=== PATIENT | female | born 1965 | race Hispanic/Latino ===

== ENCOUNTER 2016-06-19 09:40 | Inpatient (IN) | payer MEDICAID ==
[2016-06-19 09:42] VITALS: BMI 27.4
--- NOTE | 2016-06-19 09:54 | ED PDOC ---
Arrival/HPI - General Time Seen by Provider: 06/19/16 09:44 Historian: Patient - History of Present Illness Narrative History of Present Illness (Text): 06/19/16 09:51 51 year old female with recent admission for CHF presents to the emergency department with complaints of shortness of breath. Patient states that she was recently admitted for "breathing problems" and reports persistent shortness of breath. Denies headache or fevers. Denies chest pain. Denies hemoptysis. PMD: Dr. Roman Time/Duration: 24 hours Symptom Onset: Sudden Symptom Course: Unchanged Modifying Factors (Text): None Associated Symptoms (Text): None Past Medical History - Provider Review Nursing Documentation Reviewed: Yes - Past History Past History: No Previous - Infectious Disease Hx of Infectious Diseases: None - Tetanus Immunization Tetanus Immunization: Unknown - Cardiac Hx Cardiac Disorders: Yes Hx Congestive Heart Failure: Yes Hx Hypertension: Yes - Pulmonary Hx Respiratory Disorders: Yes Hx Chronic Obstructive Pulmonary Disease (COPD): Yes - Neurological Hx Neurological Disorder: No - HEENT Hx HEENT Disorder: No Hx Blind: No Hx Cataracts: No Hx Deafness: No Hx Difficulty Chewing: No Hx Epistaxis: No Hx Glaucoma: No Hx Macular Degeneration: No - Renal Hx Renal Disorder: No - Endocrine/Metabolic Hx Endocrine Disorders: Yes Hx Diabetes Mellitus Type 2: Yes Hx Hypothyroidism: Yes - Hematological/Oncological Hx Blood Disorders: No - Integumentary Hx Dermatological Disorder: No Hx Basal Cell Carcinoma: No Hx Eczema: No Hx Melanoma: No Hx Psoriasis: No Hx Squamous Cell Carcinoma: No - Musculoskeletal/Rheumatological Hx Musculoskeletal Disorders: No - Gastrointestinal Hx Gastrointestinal Disorders: No - Genitourinary/Gynecological Hx Genitourinary Disorders: No - Psychiatric Hx Psychophysiologic Disorder: No Hx Substance Use: No (H/O OF COCAINE MARIJUANA USE) - Past Surgical History Past Surgical History: No Previous - Surgical History Hx Appendectomy: No Hx Cholecystectomy: No Hx Coronary Stent: No Other/Comment: port-a-cath placement - Anesthesia Hx Anesthesia Reactions: No Hx Malignant Hyperthermia: No - Suicidal Assessment Feels Threatened In Home Enviroment: No Family/Social History Family/Social History: Unknown Family HX Smoking Status: Former Smoker Hx Alcohol Use: No (H/O) Hx Substance Use: No (H/O OF COCAINE MARIJUANA USE) Substance used: cocaine Hx Substance Use Treatment: Yes (NARCOTICS ANONYMOUS) Allergies/Home Meds Allergies/Adverse Reactions: Allergies No Known Allergies Allergy (Verified 06/19/16 09:49) Home Medications: Home Meds Medication Instructions Recorded Confirmed Furosemide [Lasix] 40 mg PO DAILY 05/28/16 06/19/16 metFORMIN [glucOPHAGE] 1,000 mg PO BID 05/28/16 06/19/16 Potassium Chloride [K-Dur 20 mEq 20 meq PO DAILY 06/19/16 06/19/16 ER Tab] Review of Systems - Review of Systems Constitutional: Fatigue. absent: Fevers ENT: absent: Hearing Changes, Sore Throat, Rhinorrhea, Epistaxis Respiratory: SOB. absent: Cough, Wheezing Cardiovascular: BECK. absent: Chest Pain, Edema Gastrointestinal: absent: Stool Changes, Nausea, Vomiting Genitourinary Female: absent: Dysuria Musculoskeletal: absent: Back Pain, Neck Pain Neurological: absent: Dizziness Hemo/Lymphatic: absent: Easy Bleeding Psychiatric: absent: Depression Physical Exam - Physical Exam Narrative Physical Exam (Text): Head: Atraumatic. Normocephalic. Eyes: PERRL. EOMI. Conjunctivae are not pale. ENT: Mucous membranes are moist and intact. Oropharynx is clear and symmetric. Neck: Supple. Full ROM. Positive JVD. No meningeal signs. Cardiovascular: Tachycardic. Regular rhythm. Systolic murmur. No rubs, or gallops. Distal pulses are 2+ and symmetric. Pulmonary/Chest: No evidence of respiratory distress. Rales L>R. Diminished breath sounds at right base. Abdominal: Soft and non-distended. There is no tenderness. No rebound, guarding, or rigidity. No organomegaly. Good bowel sounds. Back: No CVA tenderness. Extremities: Bilateral pitting edema. No cyanosis. No clubbing. Full range of motion in all extremities. No calf tenderness. Skin: Skin is warm and dry. No petechiae. No purpura. Neurological: Alert, awake, and oriented. Normal speech. Motor and sensory exam intact. Psychiatric: Good eye contact. At times pressure speech. Denies suicidal or homicidal ideation.. Vital Signs Reviewed: Yes Vital Signs Temp Pulse Resp BP Pulse Ox 06/19/16 15:00 114 H 18 114/74 98 06/19/16 13:00 116 H 18 112/77 100 06/19/16 12:32 126/76 06/19/16 11:41 99 H 18 126/88 98 06/19/16 11:00 20 98 06/19/16 09:41 98.6 F 120 H 18 125/79 94 L Temperature: Afebrile Pulse: Tachycardic Respiratory Rate: Tachypneic Appearance: Positive for: Uncomfortable Pain Distress: Mild Medical Decision Making ED Course and Treatment: Differential Diagnosis include but are not limited to: chf, cad, acs, arrhythmia Plan: Will obtain chest x-ray and check labs. Prior Visits: Notes and results from previous visits were reviewed. Patient last seen in ED on Progress Notes: Patient noted to have left bundle branch block, which was present on a prior ekg. Patient denies chest pain. Chest x-ray shows large right pleural effusion and worsening edema compared to prior. On 2L of nasal cannula, oxygen saturation is 96%. Patient remains tachycardic and tachypnic. CT Angiogram ordered due to tachycardia and history of DVT. CTA negative for PE. CT Chest IMPRESSION read by Dr. Angeles: 1. No evidence of pulmonary embolism. 2. Large bilateral pleural effusions and compressive atelectasis primarily affecting both lower lobes and to a lesser extent right middle lobe and lingula. These have increased compared to the prior CT which included the lower thorax 05/31/2016 Patient states she has been compliant with Eliquis. Consulted script writer Dr. Liu who has assessed patient and currently patient is cleared for telemetry bed admission. Patient will be admitted under Dr. Roman. Case d/w Dr. Roman and care transferred to Dr. Roman. Patient refuses ABG. Risks and indications were discussed with her. She refuses rectal temperature. Afebrile in ED. Current exam not consistent with DKA. Blood sugar improved after insulin. Will avoid excessive hydration given history of CHF and low EF. Patient admitted for pleural effusion, chf, tachycardia. 06/19/16 19:34 - Lab Interpretations Lab Results: 06/19/16 10:19 06/19/16 10:19 Lab Results 06/19/16 13:08: Digoxin < 0.4 L 06/19/16 10:21: Influenza Typ A,B (EIA) Negative for flu a/b 06/19/16 10:19: WBC 11.5 H, RBC 4.95, Hgb 13.1, Hct 39.6, MCV 80.0, MCH 26.5, MCHC 33.1, RDW 15.7 H, Plt Count 372, MPV 11.6 H, Gran % 69.3 H, Lymph % (Auto) 21.4 L, [place] % (Auto) 7.5 H, Eos % (Auto) 1.3 L, Baso % (Auto) 0.5, Gran # 7.99 H, Lymph # 2.5, [place] # 0.9 H, Eos # 0.2, Baso # 0.06, PT 13.4 H, INR 1.24 H, APTT 27.1, Sodium 132, Potassium 4.0, Chloride 88 L, Carbon Dioxide 33, Anion Gap 15, BUN 18, Creatinine 0.7, Est GFR ( Amer) > 60, Est GFR (Non-Af Amer) > 60, Random Glucose 609 H* D, Calcium 9.7, Total Bilirubin 1.4 H, AST 40 H, ALT 51, Alkaline Phosphatase 173 H, Lactate Dehydrogenase 451, Total Creatine Kinase < 20 L, Troponin I < 0.01, NT-Pro-B Natriuret Pep 4530 H, Total Protein 7.7, Albumin 4.1, Globulin 3.6, Albumin/Globulin Ratio 1.1, Urine Color Yellow, Urine Appearance Clear, Urine pH 6.0, Ur Specific [place] 1.010, Urine Protein Negative, Urine Glucose (UA) >=1000, Urine Ketones Negative, Urine Blood Trace-lysed H, Urine Nitrate Negative, Urine Bilirubin Negative, Urine Urobilinogen 0.2, Ur Leukocyte Esterase Negative, Urine RBC 0 - 2, Urine WBC 0 - 2, Ur Epithelial Cells 0 - 2, Urine Bacteria Few, Urine Other Uyeast - RAD Interpretation Narrative RAD Interpretations (Text): worsening bilateral effusions Radiology Orders: 06/19/16 10:00 CHEST PORTABLE [RAD] Stat 06/19/16 13:07 ANGIO CHEST PE PROTOCOL [CT] Stat Marketing Performance Analyst: Radiologist - EKG Interpretation EKG Interpretation (Text): 06/19/16 19:33 sinus tachycardia rate of 127 with left bundle branch block Interpreted by ED Physician: Yes Type: 12 lead EKG - Medication Orders Current Medication Orders: Apixaban (Eliquis) 5 mg PO Q12 [facility] PRN Reason: Protocol Digoxin (Lanoxin) 0.125 mg PO 1400 [facility] Furosemide (Lasix) 40 mg IV DAILY [facility] Insulin Detemir (Levemir) 15 unit SC Q12 [facility] Insulin Human Regular (Humulin R Med) 0 units SC ACHS [facility] PRN Reason: Protocol Levothyroxine Sodium (Synthroid) 125 mcg PO ACB [facility] Last Admin: 06/19/16 17:30 Dose: Not Given Non-Admin Reason: Patient Refused Losartan Potassium (Cozaar) 12.5 mg PO DAILY [facility] Metformin HCl (Glucophage) 1,000 mg PO BRKDIN [facility] Last Admin: 06/19/16 19:02 Dose: 1,000 MG Potassium Chloride (K-Dur 20 Meq Er Tab) 20 meq PO DAILY [facility] Discontinued Medications Furosemide (Lasix) 40 mg IVP ONCE ONE Stop: 06/19/16 12:05 Last Admin: 06/19/16 12:32 Dose: 40 MG MAR Blood Pressure Document 06/19/16 12:32 EW (Rec: 06/19/16 12:32 [facility] [id number]) Blood Pressure Blood Pressure (100/60-150/90 mm Hg) 126/76 IVP Administration Document 06/19/16 12:32 EW (Rec: 06/19/16 12:32 [facility] [id number]) Charges for Administration # of IVP Administrations 1 Insulin Human Regular (Humulin R) 10 units SC STAT STA Stop: 06/19/16 10:51 Last Admin: 06/19/16 11:13 Dose: 10 UNITS Subcutaneous Admin in ER Document 06/19/16 11:13 EW (Rec: 06/19/16 11:13 [facility] [id number]) Injection Site MAR Injection Site Left Deltoid Subcutaneous Administrations Document 06/19/16 11:13 EWO (Rec: 06/19/16 11:13 [facility] [id number]) Charges for Administration # of Subcutaneous Administrations 1 Iohexol (Omnipaque 350 100 Ml) Confirm Administered Dose 350 mg .ROUTE .STK-MED ONE Stop: 06/19/16 13:28 Metformin HCl (Glucophage) 1,000 mg PO BRKDIN [facility] Disposition/Present on Arrival - Present on Arrival Any Indicators Present on Arrival: Yes History of DVT/PE: Yes History of Uncontrolled Diabetes: Yes Urinary Catheter: No History of Decub. Ulcer: No History Surgical Site Infection Following: None - Disposition Have Diagnosis and Disposition been Completed?: Yes Diagnosis: CHF (congestive heart failure), Tachycardia, Pleural effusion, Hyperglycemia Disposition: HOSPITALIZED Disposition Time: 12:30 Patient Plan: Admission Patient Problems: Current Active Problems Problem Status Diagnosed Abdominal pain Acute Biliary colic Acute CHF (congestive heart failure) Acute Pleural effusion Acute Tachycardia Acute Thrombosis Acute Condition: FAIR
[2016-06-19 10:20] LABS: ADD MANUAL DIFF? NO
[2016-06-19 10:25] LABS: BASO # 0.06 K/mm3 (0.0-2.0); BASO % 0.5 % (0.0-3.0); EOS # 0.2 (0.0-0.7); EOS % 1.3 % (1.5-5.0); GRAN # 7.99 (1.4-6.5); GRAN % 69.3 % (50.0-68.0); HEMATOCRIT 39.6 % (36.0-48.0); LYMPH # 2.5 (1.2-3.4); LYMPH % 21.4 % (22.0-35.0); MEAN CORPUSCULAR HEMOGLOBIN 26.5 pg (25.0-35.0); MEAN CORPUSCULAR HGB CONC 33.1 g/dl (31.0-37.0); MEAN PLATELET VOLUME 11.6 fl (7.0-11.0); MONO # 0.9 (0.1-0.6); MONO % 7.5 % (1.0-6.0); PLATELET COUNT 372 10^3/uL (120.0-450.0); RED CELL DISTRIBUTION WIDTH 15.7 % (11.5-14.5); URINE APPEARANCE CLEAR (CLEAR); URINE BILIRUBIN NEGATIVE (NEGATIVE); URINE BLOOD TRACE-LYSED (NEGATIVE); URINE COLOR YELLOW (YELLOW); URINE GLUCOSE (UA) >=1000 mg/dL (NEGATIVE); URINE KETONE NEGATIVE (NEGATIVE); URINE LEUKOCYTE ESTERASE NEGATIVE Leu/uL (NEGATIVE); URINE PROTEIN NEGATIVE mg/dL (<30 mg/dL); URINE UROBILINOGEN 0.2 E.U./dL (<1 E.U./dL); WHITE BLOOD COUNT 11.5 10^3/ul (4.5-11.0)
[2016-06-19 10:34] LABS: URINE BACTERIA FEW (NEG); URINE EPITHELIAL CELLS 0 - 2 /hpf (0-5); URINE RBC 0 - 2 /hpf (0-2); URINE WBC 0 - 2 /hpf (0-6)
[2016-06-19 10:36] LABS: ALB/GLOB RATIO 1.1 (1.1-1.8); ALKALINE PHOSPHATASE 173 U/L (38-133); ALT/SGPT 51 U/L (7-56); AST/SGOT 40 U/L (15-39); BILIRUBIN,TOTAL 1.4 mg/dL (0.2-1.3); BLOOD UREA NITROGEN 18 mg/dL (7-21); CALCIUM 9.7 mg/dL (8.4-10.5); CARBON DIOXIDE 33 mmol/L (21-33); CHLORIDE 88 mmol/L (98-107); GFR AFRICAN-AMERICAN > 60; INR 1.24 (0.93-1.08); PARTIAL THROMBOPLASTIN TIME 27.1 Seconds (23.7-30.8); SODIUM 132 mmol/L (132-148); TOTAL PROTEIN 7.7 g/dL (5.8-8.3)
[2016-06-19 10:49] LABS: GLUCOSE,RANDOM 609 mg/dL (70-110)
[2016-06-19 10:50] LABS: TROPONIN I < 0.01 ng/mL
[2016-06-19] MEDS ORDERED: Insulin Regular 1 UNITS/0.01 ML ML SC STA (10:50)
--- NOTE | 2016-06-19 12:57 | RAD ---
PROCEDURE: Portable chest single view HISTORY: Shortness of breath. COMPARISON: 05/28/2016. TECHNIQUE: Technique: Single view portable semi erect @ 11:32. FINDINGS: Bilateral pleural effusions, of lower lobe compressive atelectasis. Findings are progressive [place] of increased compared to May 28, 2016. IMPRESSION: Worsening bilateral infiltrates and effusions.
[2016-06-19] MEDS ORDERED: Iohexol 350 MG/100 ML VIAL ONE (13:27)
--- NOTE | 2016-06-19 14:16 | CT ---
PROCEDURE: CT Chest with contrast (Pulmonary Angiogram) HISTORY: Shortness of breath. COMPARISON: June 19, 2016. Single-view chest. 05/31/2016 CT abdomen and pelvis. TECHNIQUE: Axial computed tomography images were obtained of the chest in the pulmonary arterial phase of enhancement. Coronal and sagittal reformatted images were created and reviewed. Maximum intensity projection (MIP) reconstructed images in the following planes: Coronal projection only Intravenous contrast dose: 100 cc Omnipaque 350. Mean Hounsfield unit values in the main pulmonary artery: 605.12 Radiation dose: Total exam DLP = 443.06 mGy-cm. FINDINGS: PULMONARY ARTERIES: Unremarkable. No pulmonary embolism. AORTA: No acute findings. No thoracic aortic aneurysm. LUNGS: Progressive consolidative changes compared to prior CT scan of abdomen and pelvis likely compressive atelectasis related to increasing bilateral pleural effusions. PLEURAL SPACES: Large bilateral pleural effusions, increased in size compared the prior CT scan 05/31/2016. HEART: Unremarkable. No cardiomegaly. No significant pericardial effusion. LYMPH NODES: No lymphadenopathy. BONES, CHEST WALL: Unremarkable. No fracture or destructive lesion OTHER FINDINGS: Admixture of contrast in the IVC noted. No IVC thrombus is identified. IMPRESSION: 1. No evidence of pulmonary embolism. 2. Large bilateral pleural effusions and compressive atelectasis primarily affecting both lower lobes and to a lesser extent right middle lobe and lingula. These have increased compared to the prior CT which included the lower thorax 05/31/2016
--- NOTE | 2016-06-19 15:55 | CARD ---
APPROVED REPORT EKG Measurement Heart [id number] MA [id number] <Conclusion> Sinus tachycardia Left bundle branch block Abnormal ECG
[2016-06-19] MEDS: Levothyroxine 125 MCG TAB PO SCH ×2 (17:25→17:30)
--- NOTE | 2016-06-19 21:24 | CON ---
DATE: 06/19/2016 This is a 51-year-old lady with history of diabetes, CHF (left ventricular systolic function, ejection fraction is about 30, the patient had a coronary angiography about 2 years ago which showed nonocclusive coronary artery disease ) who presented this time with some shortness of breath for several days, which was getting somewhat worse. No chest pain, no nausea, no vomiting, no diarrhea , no constipation. Shortness of breath was exacerbated by exertion and somewhat relieved during the rest. PAST MEDICAL HISTORY: CHF, left ventricular systolic dysfunction with ejection fraction of 30%, occlusion of coronary artery disease, diabetes. SOCIAL HISTORY: The patient is an ex-smoker, but did smoke for many years. No alcohol or illicit drug abuse. MEDICATIONS AT HOME: Synthroid, Eliquis (patient had a history of upper extremity deep venous thrombosis), digoxin, metformin, Cozaar, Lasix. FAMILY HISTORY: Noncontributory. ALLERGIES: NKDA. REVIEW OF SYSTEMS: Revealed 12-organ system other than mentioned in history of present illness is negative. PHYSICAL EXAMINATION: VITAL SIGNS: The patient is on 2 liters nasal cannula and her oxygen saturation is 95-97%. Her heart rate is 114 and her blood pressure is 126/70. GENERAL: The patient is in no acute distress. She is alert and oriented x 3. HEAD AND NECK: Atraumatic. LUNGS: Decreased breath sounds bibasilar. HEART: Regular rate and rhythm. S1, S2 normal. ABDOMEN: Soft, nontender, nondistended. MUSCULOSKELETAL: 2+ bilateral pedal and ankle edema. NEUROLOGIC: The patient moves all extremities spontaneously. SKIN: Moist. PSYCHIATRIC: The patient is alert and oriented x 3. LABORATORY DATA: Sodium 132, potassium 4, chloride 88, carbon dioxide 33, BUN 18, creatinine 0.7 , glucose 609. AST 40, ALT 51. Troponin is less than 0.01. ProBNP 4530. WBC 11.5, hemoglobin 13.1, platelet count 372. INR 1.24. CAT scan of the chest revealed no pulmonary embolus, however, large bilateral pleural effusion with some compressive atelectasis. EKG showed old left bundle branch block. ASSESSMENT AND PLAN: This is a 51-year-old lady who presented with what appears to be congestive heart failure exacerbation. She is hemodynamically relatively stable except for mild tachycardia. She requires only 2 liters per minute of FIO2 supplementation via nasal cannula to maintain her gas exchange and oxygen saturation between 94 and 97. She is alert and oriented x3. She is able to protect her airways. At present time, admission to telemetry for monitoring appears to be appropriate. If clinical situation change or patient deteriorates including, but not limited to hypoxemia, hypotension, or any other questions arise, please reconsult ICU and give us a call. It appears that diuresis, ARETHA inhibitors for afterload reduction appears to be reasonable. Cardiology consult appears to be reasonable as well. When patient achieves euvolemic status, beta blockers can be restarted. I will trend troponins x 3 to ascertain absence of acute coronary ischemia. We will check procalcitonin to rule out septic component in patient's pulmonary complaints. We will continue with Eliquis and gastrointestinal prophylaxis. Rancho Liu MD cc: [id number] TT: 06/19/2016 21:24:15 Confirmation # [id number] Dictation # [id number] MTDD
[2016-06-19] MEDS: Insulin Detemir 100 units/ml Vial (Levemir) SC SCH (22:14)
[2016-06-19] MEDS: Insulin Reg-MEDIUM-Coverage SC SCH (22:16)
[2016-06-19] MEDS ORDERED: cefTRIAXone 1 gm 100 ML IVPB STA (22:49)
--- NOTE | 2016-06-20 00:02 | CON ---
DATE: 06/19/2016 The patient in room 265, bed 2. REASON FOR CONSULTATION: Congestive heart failure. HISTORY OF PRESENT ILLNESS: The patient is a 51-year-old female who is known to have congestive hear t failure, bipolar disorder, history of lymphoma in the past, admitted with shortness of breath of fe w days' duration, which continued to get worse. The patient denies any chest pain or palpitations. PAST MEDICAL HISTORY: Positive for lymphoma, history of DVT of right brachial vein in 04/2016. She had a cholecystectomy recently. CARDIAC WORKUP: As follows: Echo in March revealed ejection fraction 30%, then patient had a MUG A scan that showed ejection fraction 55%. The patient had coronary angiogram 03/2015 that revealed n onobstructive coronary artery disease. The patient's MUGA scan on 04/13/2016 showed ejection fractio n 55%. 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 The patient had cardiac catheterization ____, showed ejection fraction 40 % to 45% with nonobstructive coronary artery disease. EDP was in the range of 20-25. The patient's MUGA scan on 04/11/2015 showed ejection fraction 56%. Repeat MUGA scan on 04/13/2016 showed ejection fraction of 55%. PERSONAL HISTORY: No smoking, no drinking. ALLERGIES: No known allergies. REVIEW OF SYSTEMS: All the systems reviewed, positives mentioned in the history, others were negativ e. HOME MEDICATIONS: Included Synthroid, Eliquis, digoxin, metformin, potassium, losartan, furosemide. PHYSICAL EXAMINATION: VITAL SIGNS: Blood pressure 114/74, respirations 18, pulse 114, temperature 98. HEENT: Head is normocephalic. Eyes: Pupils normal. Conjunctivae normal. Nose and throat normal. NECK: JVP is low. Carotids equal. THORAX: AP diameter normal. LUNGS: Bilateral rales on the bases of the lungs along with some diminished breath sounds. CARDIOVASCULAR: S1, S2, pansystolic murmur grade III/, no rub. ABDOMEN: Soft, no tenderness, no organomegaly. EXTREMITIES: The patient has swelling on the right ____ legs, also has redness of the skin, more so on the right leg as compared to left leg. LABORATORY DATA: WBC 11.5, hemoglobin 13.1, hematocrit 39.6, platelet 372. Sodium 132, potassium 4. 0, BUN 18, creatinine 0.7, random glucose 609, total bilirubin 1.4, AST 40, ALT 51. NT-proB natriure tic pep 4530. Total protein and albumin normal. Repeat sugar 375. EKG shows sinus tachycardia, rat e around 127 per minute, left bundle branch block. Chest x-ray showed bilateral pleural effusion. I t has increased as compared to 05/28/2016. CAT scan of the chest showed large bilateral pleural effus ion with compressive atelectasis primarily affecting both lower lobes. DIAGNOSES: Congestive heart failure, bilateral pleural effusion, mitral regurgitation, cardiomyopath y, [id number] left ventricular systolic failure, cardiomyopathy, nonischemic type; status post chemotherapy, status post cardiac catheterization 03/11/2015, nonobstructive coronary artery disease. Recent MUGA scan showed left ventricular ejection fraction 55%. Previous MUGA on 04/11/2015 showed ejection fraction of 56%, bilateral edema of legs, redness on the leg, probably rule out cellulitis; history of lymphoma, history of chemotherapy, tricuspid regurgitation, mitral regurgitation, sinus ta chycardia. PLAN: Give Lasix 40 IV b.i.d. The patient on Eliquis 5 mg q.12 hours, losartan 12.5 mg p.o. daily. We will add Inderal 10 mg t.i.d. for sinus tachycardia. The patient on potassium 20 p.o. daily, dig oxin 0.125 daily, insulin Levemir already ordered, Synthroid 125 mcg p.o. daily, metformin 1000 mg p. o. b.i.d. We will monitor intake and output and we will also add Rocephin 1 gram IV daily to help wi th cellulitis of the legs. We will follow. Mau Rivera MD cc: [id number] TT: 06/20/2016 00:01:50 Confirmation # [id number] Dictation # [id number]
--- NOTE | 2016-06-20 01:09 | CP.PCM.PN ---
Subjective - Date & Time of Evaluation Date of Evaluation: 06/20/16 Time of Evaluation: 01:02 - Subjective Subjective: Patient is seen at bedside because she is restless, trying to get out of bed, states that she does not feel good , trying to spit up, complains of diffuse abdominal pain, at times crying. Medical record reviewed. Seen by in the past who had started her on risperidone. 51 year old woman is admitted with sob of 2 days duration. Has PMH of DM, lymphoma, bipolar disorder, right brachial DVT, CHF , 30 % EF, CMP-non ischemic, bilateral pleural effusion, cholecystectomy, Objective - Vital Signs/Intake and Output Vital Signs (last 24 hours): Temp Pulse Resp BP Pulse Ox 97.7 F 124 H 20 128/82 98 06/19/16 18:00 06/19/16 22:23 06/19/16 18:00 06/19/16 22:23 06/19/16 15:00 Intake and Output: 06/19/16 06/20/16 18:59 06:59 Intake Total 480 Balance 480 - Medications Medications: Current Medications Apixaban (Eliquis) 5 mg PO Q12 [facility] PRN Reason: Protocol Last Admin: 06/19/16 22:13 Dose: 5 mg Digoxin (Lanoxin) 0.125 mg PO 1400 [facility] Furosemide (Lasix) 40 mg IV BID [facility] Ceftriaxone Sodium (Rocephin 1 Gram Ivpb) 100 mls @ 100 mls/hr IVPB DAILY [facility] PRN Reason: Protocol Insulin Detemir (Levemir) 15 unit SC Q12 [facility] Last Admin: 06/19/16 22:14 Dose: 15 unit Insulin Human Regular (Humulin R Med) 0 units SC ACHS [facility] PRN Reason: Protocol Last Admin: 06/19/16 22:16 Dose: 3 units Levothyroxine Sodium (Synthroid) 125 mcg PO ACB [facility] Last Admin: 06/19/16 17:30 Dose: Not Given Losartan Potassium (Cozaar) 12.5 mg PO DAILY [facility] Metformin HCl (Glucophage) 1,000 mg PO BRKDIN [facility] Last Admin: 06/19/16 19:02 Dose: 1,000 mg Potassium Chloride (K-Dur 20 Meq Er Tab) 20 meq PO DAILY [facility] Propranolol HCl (Inderal) 10 mg PO TID [facility] Last Admin: 06/19/16 22:23 Dose: 10 mg - Labs Labs: PT 13.4 Seconds (9.9-11.8) H 06/19/16 10:19 INR 1.24 (0.93-1.08) H 06/19/16 10:19 APTT 27.1 Seconds (23.7-30.8) 06/19/16 10:19 - Constitutional Appears: Well, No Acute Distress - Head Exam Head Exam: ATRAUMATIC, NORMAL INSPECTION, NORMOCEPHALIC Additional comments: Ambulating . - Eye Exam Eye Exam: Normal appearance - ENT Exam ENT Exam: Normal External Ear Exam - Neck Exam Neck Exam: Normal Inspection - Respiratory Exam Respiratory Exam: NORMAL BREATHING PATTERN - Cardiovascular Exam Cardiovascular Exam: absent: JVD - Rectal Exam Rectal Exam: Deferred - Extremities Exam Extremities Exam: Normal Inspection - Neurological Exam Neurological Exam: Alert - Psychiatric Exam Psychiatric exam: Anxious - Skin Skin Exam: Normal Color Assessment and Plan - Assessment and Plan (Free Text) Assessment: A/P: Anxious. CHF. History bipolar disorder. CMP. Placed a call to . Will give rsperidone 0.5 mg po now. Suggest psychiatry consultation.
[2016-06-20] MEDS ORDERED: Alum-Mag Hydrox-Simethicone Susp (30 mL) PO STA (01:34)
[2016-06-20] MEDS: Insulin Reg-MEDIUM-Coverage SC SCH ×2 (08:09→12:32)
[2016-06-20] MEDS: Levothyroxine 125 MCG TAB PO SCH (08:10)
[2016-06-20 08:45] LABS: BLOOD UREA NITROGEN 19 mg/dL (7-21); CARBON DIOXIDE 30 mmol/L (21-33); CHLORIDE 93 mmol/L (98-107); GFR AFRICAN-AMERICAN > 60; GLUCOSE,RANDOM 247 mg/dL (70-110); POTASSIUM 3.8 mmol/L (3.6-5.0); SODIUM 134 mmol/L (132-148)
[2016-06-20 08:52] LABS: HEMATOCRIT 38.9 % (36.0-48.0); MEAN CELL VOLUME 78.3 fL (80.0-105.0); MEAN CORPUSCULAR HEMOGLOBIN 26.4 pg (25.0-35.0); MEAN CORPUSCULAR HGB CONC 33.7 g/dl (31.0-37.0); MEAN PLATELET VOLUME 11.9 fl (7.0-11.0); RED CELL DISTRIBUTION WIDTH 15.6 % (11.5-14.5)
[2016-06-20] MEDS: Potassium Chloride 20 mEq ER Tab PO SCH (09:21)
[2016-06-20] MEDS: Insulin Detemir 100 units/ml Vial (Levemir) SC SCH ×2 (09:23→22:09)
--- NOTE | 2016-06-20 10:21 | PN ---
DATE: 06/20/2016 REASON FOR CONSULTATION AND FOLLOWUP: Congestive heart failure. BRIEF CLINICAL HISTORY: This is a 51-year-old female with past medical history of psychiatric disord er, bipolar, history of congestive heart failure, nonischemic cardiomyopathy secondary to chemo for l ymphoma, history of recently DVT of right brachial vein, history of recently cholecystectomy. Admitt ed with shortness of breath, decompensated congestive heart failure. PHYSICAL EXAMINATION: VITAL SIGNS: Temperature afebrile, heart rate 109, blood pressure 123/83. HEENT: PERRLA. Extraocular muscles intact. NECK: Supple. No carotid bruits. No thyromegaly. CHEST: Clear to auscultation. HEART: S1, S2 regular. ABDOMEN: Soft. EXTREMITIES: Clubbing, cyanosis negative. BLOOD WORKUP: WBC 15, hemoglobin 13. , hematocrit 38.9, platelet count 376. Chemistry shows sod ium 134, potassium 3. , chloride 93, carbon dioxide 30, anion gap of 15, BUN 19, creatinine 0.6, random sugar 246. BNP 5600. IMPRESSION Decompensated congestive heart failure, acute on chronic, secondary to systolic dysfuncti on, history of lymphoma, status post chemotherapy, nonischemic cardiomyopathy, status post cardiac ca theterization 03/2015 that revealed nonobstructive coronary artery disease, end diastolic pressure wa s in the range of 20-25, ejection fraction 40%-45%. Echo in March revealed ejection fraction 30%. The patient had a MUGA scan done on , ejection fraction 55%. Prior to that, MUGA scan on 04/11/2014 also 55%. History of recently deep venous thrombosis of right brachial vein, status post cholecystectomy, status post removal of Port-A-Cath, history of cellulitis lower extremity, history o f lymphoma, status post chemo, tricuspid regurgitation, mitral regurgitation. RECOMMENDATION: Continue IV Lasix, continue Eliquis, continue losartan. t.i.d. added for tach ycardia. Continue digoxin. Continue Synthroid. We will increase digoxin to 0.2 because patient has normal creatinine clearance, more than 60% ejection fraction and age is 51, to control the tachycard ia. The patient is also on propranolol 10 mg to control the tachycardia. We will follow with you. Continue gentle diuretics. We will give 1 or 2 doses of Zaroxolyn to get the extra fluid out as the patient has 1-2+ pedal edema. The patient is already on antibiotics for cellulitis. We will follow with you. Thank you, Dr. Roman, for providing us the opportunity in taking care of the patient. We will follo w with you. Repeat the lab in the morning. Mau Orozco MD cc: [id number] TT: 06/20/2016 10:21:04 Confirmation # [id number] Dictation # [id number]
[2016-06-20] MEDS: cefTRIAXone 1 gm 100 ML IVPB SCH (12:45)
[2016-06-20] MEDS: metOLazone 5 MG TAB PO SCH (12:50)
--- NOTE | 2016-06-20 13:46 | CP.PCM.PN ---
Subjective - Date & Time of Evaluation Date of Evaluation: 06/20/16 Time of Evaluation: 13:30 - Subjective Subjective: pt needs angiocath insertion. Objective - Vital Signs/Intake and Output Vital Signs (last 24 hours): Temp Pulse Resp BP Pulse Ox 98 F 113 H 20 119/87 91 L 06/20/16 06:00 06/20/16 12:33 06/20/16 06:00 06/20/16 12:33 06/20/16 06:00 Intake and Output: 06/20/16 06/20/16 06:59 18:59 Intake Total 480 Output Total 1 Balance 479 - Medications Medications: Current Medications Apixaban (Eliquis) 5 mg PO Q12 [facility] PRN Reason: Protocol Last Admin: 06/20/16 09:22 Dose: 5 mg Carvedilol (Coreg) 3.125 mg PO BID [facility] Last Admin: 06/20/16 12:33 Dose: 3.125 mg Digoxin (Lanoxin) 0.25 mg PO 1400 [facility] Furosemide (Lasix) 40 mg IV BID [facility] Last Admin: 06/20/16 12:51 Dose: Not Given Ceftriaxone Sodium (Rocephin 1 Gram Ivpb) 100 mls @ 100 mls/hr IVPB DAILY [facility] PRN Reason: Protocol Last Admin: 06/20/16 12:45 Dose: Not Given Insulin Detemir (Levemir) 15 unit SC Q12 [facility] Last Admin: 06/20/16 09:23 Dose: 15 unit Insulin Human Regular (Humulin R Med) 0 units SC ACHS [facility] PRN Reason: Protocol Last Admin: 06/20/16 12:32 Dose: 7 units Levothyroxine Sodium (Synthroid) 125 mcg PO ACB [facility] Last Admin: 06/20/16 08:10 Dose: 125 mcg Losartan Potassium (Cozaar) 12.5 mg PO DAILY [facility] Last Admin: 06/20/16 09:22 Dose: 12.5 mg Metformin HCl (Glucophage) 1,000 mg PO BRKDIN [facility] Last Admin: 06/20/16 08:38 Dose: Not Given Metolazone (Zaroxolyn) 5 mg PO DAILY [facility] Stop: 06/21/16 23:59 Last Admin: 06/20/16 12:50 Dose: 5 mg Potassium Chloride (K-Dur 20 Meq Er Tab) 20 meq PO DAILY [facility] Last Admin: 06/20/16 09:21 Dose: 20 meq Propranolol HCl (Inderal) 10 mg PO TID [facility] Last Admin: 06/20/16 09:21 Dose: 10 mg - Labs Labs: 06/20/16 08:30 06/20/16 08:30 PT 13.4 Seconds (9.9-11.8) H 06/19/16 10:19 INR 1.24 (0.93-1.08) H 06/19/16 10:19 APTT 27.1 Seconds (23.7-30.8) 06/19/16 10:19 Assessment and Plan - Assessment and Plan (Free Text) Assessment: 24 guage angiocath inserted in rt hand.
[2016-06-20] MEDS ORDERED: Digoxin 125 mcg (0.125 mg) Tab PO SCH (14:00)
[2016-06-20] MEDS: Digoxin 250 mcg (0.25 mg) Tab PO SCH (14:23)
--- NOTE | 2016-06-20 15:35 | CP.PCM.PN ---
Subjective - Date & Time of Evaluation Date of Evaluation: 06/20/16 Time of Evaluation: 15:28 - Subjective Subjective: called by nurse pt is c/o abdominal pain ,epigastric region.pt states she had diarrhea x1 this morning and she is receiving antibiotics which gives her problem with abdominal pain but after the BM she feels better now . pt has chf and pleural effusion.also has hx of schizoaffective disorder. Objective - Vital Signs/Intake and Output Vital Signs (last 24 hours): Temp Pulse Resp BP Pulse Ox 98 F 110 H 20 115/71 91 L 06/20/16 06:00 06/20/16 14:23 06/20/16 06:00 06/20/16 14:23 06/20/16 06:00 Intake and Output: 06/20/16 06/20/16 06:59 18:59 Intake Total 480 Output Total 1 Balance 479 - Medications Medications: Current Medications Apixaban (Eliquis) 5 mg PO Q12 [facility] PRN Reason: Protocol Last Admin: 06/20/16 09:22 Dose: 5 mg Carvedilol (Coreg) 3.125 mg PO BID [facility] Last Admin: 06/20/16 12:33 Dose: 3.125 mg Digoxin (Lanoxin) 0.25 mg PO 1400 [facility] Last Admin: 06/20/16 14:23 Dose: 0.25 mg Furosemide (Lasix) 40 mg IV BID [facility] Last Admin: 06/20/16 12:51 Dose: Not Given Ceftriaxone Sodium (Rocephin 1 Gram Ivpb) 100 mls @ 100 mls/hr IVPB DAILY [facility] PRN Reason: Protocol Last Admin: 06/20/16 12:45 Dose: Not Given Insulin Detemir (Levemir) 15 unit SC Q12 [facility] Last Admin: 06/20/16 09:23 Dose: 15 unit Insulin Human Regular (Humulin R High) 0 units SC ACHS [facility] PRN Reason: Protocol Levothyroxine Sodium (Synthroid) 125 mcg PO ACB [facility] Last Admin: 06/20/16 08:10 Dose: 125 mcg Losartan Potassium (Cozaar) 12.5 mg PO DAILY [facility] Last Admin: 06/20/16 09:22 Dose: 12.5 mg Metformin HCl (Glucophage) 1,000 mg PO BRKDIN [facility] Last Admin: 06/20/16 08:38 Dose: Not Given Metolazone (Zaroxolyn) 5 mg PO DAILY [facility] Stop: 06/21/16 23:59 Last Admin: 06/20/16 12:50 Dose: 5 mg Ondansetron HCl (Zofran Inj) 4 mg IVP Q6H [facility]N PRN Reason: Nausea/Vomiting Potassium Chloride (K-Dur 20 Meq Er Tab) 20 meq PO DAILY [facility] Last Admin: 06/20/16 09:21 Dose: 20 meq Propranolol HCl (Inderal) 10 mg PO TID [facility] Last Admin: 06/20/16 14:23 Dose: 10 mg - Labs Labs: 06/20/16 08:30 06/20/16 08:30 PT 13.4 Seconds (9.9-11.8) H 06/19/16 10:19 INR 1.24 (0.93-1.08) H 06/19/16 10:19 APTT 27.1 Seconds (23.7-30.8) 06/19/16 10:19 - Constitutional Appears: No Acute Distress - Head Exam Head Exam: NORMOCEPHALIC - Eye Exam Pupil Exam: PERRL - Neck Exam Neck Exam: Full ROM - Respiratory Exam Respiratory Exam: Decreased Breath Sounds Additional comments: pt has decreased breath sounds on the rt lower lung region. - Cardiovascular Exam Cardiovascular Exam: RRR, +S1, +S2 - GI/Abdominal Exam GI & Abdominal Exam: Soft, Normal Bowel Sounds Additional comments: mild tenderness in the epigatric region. - Rectal Exam Rectal Exam: Deferred - Extremities Exam Extremities Exam: Full ROM - Neurological Exam Neurological Exam: Awake, CN II-XII Intact, Oriented x3 - Skin Skin Exam: Dry, Warm Assessment and Plan - Assessment and Plan (Free Text) Assessment: abdominal pain /epigastric region . diarrhea. Plan: maalox 30cc po x1. stool for c.diff.
[2016-06-20] MEDS ORDERED: Alum-Mag Hydrox-Simethicone Susp (30 mL) PO ONE (15:36)
[2016-06-20] MEDS: Insulin Reg-HIGH-Coverage SC SCH ×2 (17:00→22:09)
[2016-06-20] MEDS ORDERED: HYDROmorphone 0.5 mg/0.5 ml ISec IVP STA (19:54)
[2016-06-20] MEDS: Levalbuterol 0.63 MG/3 ML Inhal Soln UD IH SCH (20:49)
--- NOTE | 2016-06-20 20:53 | CON ---
DATE: 06/20/2016 REFERRING PHYSICIAN: Dr. Roman. REASON FOR CONSULT: Pleural effusion. HISTORY OF PRESENT ILLNESS: This is a 51-year-old female just recently discharged with multiple medi melisa issues including bipolar disorder, history of lymphoma, cardiomyopathy with recurrent heart failu re, pleural effusion, history of thoracentesis in the past, recently had cholecystectomy, came in bec ause of some shortness of breath, leg swelling. Seen by cardiology. Diuretics are given. Also has on and off abdominal discomfort. Had some nausea and vomiting. Denies any constipation. Does have l eg swelling. PAST MEDICAL HISTORY: Cardiomyopathy with pleural effusion, may have sleep apnea syndrome, history o f DVT right brachial vein, status post cholecystectomy, recurrent pleural effusion, hypothyroid. ALLERGIES: None known. SOCIAL HISTORY: Denied any smoking or alcohol use. FAMILY HISTORY: No significant cardiopulmonary disease reported. MEDICATIONS: She is on Coreg 3.125 mg twice a day, Cozaar 12.5 mg daily, Eliquis 5 mg twice a day, m etformin 1000 mg twice a day, insulin coverage, Inderal 10 mg 3 times a day, potassium 20 mEq daily, digoxin 0.25 mg daily, Lasix 40 mg IV twice a day, Levemir 15 units subQ q. 12 hours, 1 g daily , Synthroid 125 mcg ACB, Zaroxolyn 5 mg daily, Zofran on a p.r.n. basis. REVIEW OF SYSTEMS: Denies any headache, no rhinitis. Some shortness of breath. No chest pain. Had nausea and vomiting, some abdominal pain, watery stool, has leg swelling. No dysuria. PHYSICAL EXAMINATION: GENERAL: Lying in the bed in no acute distress. VITAL SIGNS: Temp is 98, heart rate is 100, respiratory rate is 20, blood pressure 110/73, pulse ox 96% on nasal cannula. HEENT: Moist mucous membranes. Crowded airway. Mallampati score is 4. NECK: Supple. No JVD. LUNGS: Have decreased breath sounds at the bases. HEART: S1 and S2. ABDOMEN: Soft, nontender. No organomegaly. EXTREMITIES: Has edema of the lower extremities. NEUROLOGIC: Awake, alert, follows simple commands. LABORATORY DATA: Shows hemoglobin 13.1, hematocrit 38.9, WBC 15, platelet is 376. Sodium 134, potas sium 3.8, chloride 93, bicarbonate 30, BUN 19, creatinine 0.6, glucose 247, calcium 10. ProBNP 5600. TSH 1.32. MICROBIOLOGY: Blood culture, urine culture, there is no growth. Chest x-ray and CAT scan suggestive of bilateral pleural effusion, no pulmonary embolism. IMPRESSION AND PLAN: Chronic obstructive lung disease, cardiomyopathy, pleural effusion, sleep apnea syndrome, refused to use CPAP, refused sleep study, status post cholecystectomy, history of lymphoma , noncompliant . Seen by cardiology, started on diuretics. Also scheduled for thoracentesis. The patient is counseled about p.o. fluid intake, the need to cut down fluids, low sodium diet. Add inhaled bronchodilators. GI followup. Will follow with you. Mau More MD cc: [phone] TT: 06/20/2016 20:52:25 Confirmation # [id number] Dictation # [id number] jose
[2016-06-21] MEDS: oxyCODONE 5 mg Immediate Release Tab PO PRN ×3 (00:17→21:04)
[2016-06-21 05:37] LABS: ADD MANUAL DIFF? NO
[2016-06-21 05:43] LABS: BASO # 0.03 K/mm3 (0.0-2.0); BASO % 0.2 % (0.0-3.0); EOS # 0.1 (0.0-0.7); EOS % 0.5 % (1.5-5.0); GRAN # 11.56 (1.4-6.5); GRAN % 75.1 % (50.0-68.0); HEMATOCRIT 34.7 % (36.0-48.0); LYMPH # 2.8 (1.2-3.4); LYMPH % 18.5 % (22.0-35.0); MEAN CELL VOLUME 78.3 fL (80.0-105.0); MEAN CORPUSCULAR HGB CONC 33.1 g/dl (31.0-37.0); MEAN PLATELET VOLUME 11.8 fl (7.0-11.0); MONO # 0.9 (0.1-0.6); MONO % 5.7 % (1.0-6.0); PLATELET COUNT 324 10^3/uL (120.0-450.0); RED CELL DISTRIBUTION WIDTH 15.5 % (11.5-14.5); WHITE BLOOD COUNT 15.4 10^3/ul (4.5-11.0)
--- NOTE | 2016-06-21 06:29 | PN ---
DATE: 06/21/2016 REASON FOR CONSULTATION AND FOLLOWUP: Congestive heart failure. BRIEF CLINICAL HISTORY: A 51-year-old female with past medical history significant for psychotic dis order, bipolar disorder, congestive heart failure, nonischemic cardiomyopathy secondary to chemothera py and lymphoma, history of recent DVT of right brachial vein, history of recent cholecystectomy, and with shortness of breath, decompensated congestive heart failure, status post thoracentesis. PHYSICAL EXAMINATION: VITAL SIGNS: Temperature afebrile, heart rate , blood pressure 110/73. HEENT: PERRLA. Extraocular muscles intact. NECK: Supple. No carotid bruits. No thyromegaly. CHEST: Clear to auscultation. HEART: S1, S2 regular. ABDOMEN: Soft. EXTREMITIES: Clubbing and cyanosis negative. LABORATORY DATA: Blood workup as follows: WBC 15, hemoglobin 13.1, hematocrit 38.9, platelet count 373. Chemistry shows sodium 134, potassium 3.8, chloride 93, carbon dioxide 30, anion gap of 15, BUN 19, creatinine 0.6. BNP 5600. IMPRESSION: Pleural effusion, recurrent cellulitis of lower extremity, decompensated congestive hear t failure, acute on chronic secondary to systolic dysfunction, history of lymphoma, history of chemot herapy, nonischemic cardiomyopathy, status post cardiac catheterization in 03/2015 that revealed nono bstructive coronary artery disease, diastolic dysfunction, end-diastolic pressure 20-25, ejection fra ction 40-45%. Echo in March revealed ejection fraction 30%. The patient had a MUGA scan 04/11/19 16 shows ejection fraction 56%. Repeat MUGA 04/13/2016 ejection fraction 55%. History of recent brad p vein thrombosis, status post cholecystectomy as well as removal of Port-A-Cath, history of lymphoma , tricuspid regurgitation, and mitral regurgitation. RECOMMENDATION: Continue gentle diuretics, continue digoxin, continue Lasix, added Zaroxolyn for 2 d ays to get more diuresis. Continue apixaban for DVT of upper extremity. Continue Coreg. Repeat mark ctrolytes. We will follow with you. Thank you, Dr. Roman, for providing us the opportunity in taking care of the patient. CV status is stable. No further cardiac workup is planned. Since the patient has 1-2+ pedal edema, we will add o n Zaroxolyn and continue antibiotics for cellulitis. Mau Orozco MD cc: [id number] TT: 06/21/2016 06:29:16 Confirmation # [id number] Dictation # [id number] in
[2016-06-21 06:40] LABS: ALKALINE PHOSPHATASE 127 U/L (38-133); ALT/SGPT 43 U/L (7-56); AST/SGOT 40 U/L (15-39); BILIRUBIN,TOTAL 0.8 mg/dL (0.2-1.3); BLOOD UREA NITROGEN 26 mg/dL (7-21); CALCIUM 8.8 mg/dL (8.4-10.5); CARBON DIOXIDE 35 mmol/L (21-33); CHLORIDE 85 mmol/L (95-110); GFR AFRICAN-AMERICAN > 60; GLUCOSE,RANDOM 286 mg/dL (70-110); MAGNESIUM 1.9 mg/dL (1.7-2.2); PHOSPHOROUS 3.6 mg/dL (2.5-4.5); POTASSIUM 3.4 mmol/L (3.6-5.0); SODIUM 126 mmol/L (132-148); TOTAL PROTEIN 5.7 g/dL (5.8-8.3)
[2016-06-21] MEDS: Levalbuterol 0.63 MG/3 ML Inhal Soln UD IH SCH ×3 (07:44→19:42)
[2016-06-21] MEDS: Levothyroxine 125 MCG TAB PO SCH (08:21)
[2016-06-21] MEDS: Insulin Reg-HIGH-Coverage SC SCH ×4 (08:29→22:33)
[2016-06-21] MEDS: metOLazone 5 MG TAB PO SCH (09:55)
[2016-06-21] MEDS: Potassium Chloride 20 mEq ER Tab PO SCH (09:55)
[2016-06-21] MEDS: Insulin Detemir 100 units/ml Vial (Levemir) SC SCH ×2 (09:56→23:02)
[2016-06-21] MEDS: cefTRIAXone 1 gm 100 ML IVPB SCH (09:57)
--- NOTE | 2016-06-21 11:10 | US ---
PROCEDURE: Ultrasound guided right thoracentesis. CLINICAL HISTORY: CHF. Bilateral pleural effusions. Shortness of breath. Needs thoracentesis. . PHYSICIAN(S): Kal Peña MD. TECHNIQUE: The relative risks and indications of the procedure were explained to the patient and consent obtained. The patient was placed in a sitting position on the stretcher and sonography of the right chest performed. This revealed a moderate sized rightpleural effusion. A right posterolateral intercostal approach was selected and the area prepped and draped usual sterile fashion. 1% Xylocaine was used to anesthetize the skin and soft tissues. A 7 Lao thoracentesis catheter was trocared into the right pleural cavity and 1600ccof clear straw-colored fluid aspirated. No labs were sent. IMPRESSION: 1. Ultrasound guided right thoracentesis. 1600cc of clear, straw-colored clearfluid were aspirated.
[2016-06-21] MEDS: Digoxin 250 mcg (0.25 mg) Tab PO SCH (14:05)
--- NOTE | 2016-06-21 16:06 | PN ---
DATE: 06/20/2016 This is a 51-year-old female. She feels better after drainage. She complains of the puncture site p ain on the right lung. Otherwise, she feels better. She has no chest pain right now, no other compl aint. No fever, no chills, no other complaints. PHYSICAL EXAMINATION: VITAL SIGNS: Afebrile, temperature 97.5, heart rate 123, blood pressure 123/83, respirations 18. HEAD AND NECK: Normal. No JVD, no thyromegaly. LUNGS: Diminished breath sounds, right more than left. The patient has a bandage. CARDIAC: First and second sounds are normal. ABDOMEN: Soft, nontender. EXTREMITIES: Bilateral leg edema. NEUROLOGIC: Normal. LABORATORY DATA: White count 15, hemoglobin 15.1, hematocrit 38.9, platelets 376. Chemistry shows s odium 134, potassium 3.8, chloride 93, bicarbonate 30, BUN 19, creatinine 0.6. Blood sugar started g oing down from 300, 400 to 100-200 range. BNP is 5600. IMPRESSION AND PLAN: 1. Acute on top of chronic systolic heart failure. Continue diuresis. Continue Lasix 40 mg IV twic e a day, b.i.d. with potassium 20 b.i.d. Follow up that. 2. The patient has right side chest pain from the puncture site, seems better now. Will give her ox ycodone twice a day p.r.n. for pain if needed. 3. Diabetes. Seems better, 300. Will continue Levemir 15 units b.i.d. and increase her insulin cov erage to high scale coverage and we will follow up on that. Will make a determination how much insul in she requires in the next 24 hours. 4. Hypercoagulable, history of deep venous thrombosis. Continue Eliquis. Will add also Coreg, Coza ar, and Glucophage, resume it and continue also Synthroid, Xopenex, Zaroxolyn as by the specialist, diana Gordon, also Rocephin has been started. Continue that. Follow up clinically. 5. Also, patient does have possibly obstructive sleep apnea. Continue BiPAP for that and follow up clinically with the natural remedy consultant. Richardson Roman MD cc: [phone] TT: 06/21/2016 16:05:38 Confirmation # [id number] Dictation # [id number] rn
--- NOTE | 2016-06-21 16:20 | HP ---
CHIEF COMPLAINT: The patient came in with short of breath and increased leg edema. HISTORY OF PRESENT ILLNESS: This is a patient who has chronic systolic heart failure with acute wors ening. She did have radiation and chemotherapy in the past for her lymphoma which is nonischemic car diomyopathy. She has been admitted 2 times or more for the same reason and a year ago also admitted with respiratory failure due to congestive heart failure and fluid overload. The patient was given L asix, diuretics, beta blockers, ARETHA inhibitors as outpatient for continuation of her therapy. Compli ance was questionable with her mental incapacity; however, the patient was seen and the leg was getti ng worse. She also complained of a little bit of short of breath, which seems to be getting worse. According to her, she does take Lasix every day. The patient does have bilateral pleural effusion in the past. She had right more than left. She also had a cholecystectomy done and IV site with right hand cellulitis, which was treated very well. The patient currently, same problem, short of breath, leg edema, worsening despite the medications. No fever, no chills, bilateral pleural effusion, righ t more than left. She came in, admitted to telemetry and will be evaluated. PAST MEDICAL HISTORY: As I mentioned above and diabetes, high cholesterol, hypothyroidism, history o f DVT of the right arm. ALLERGIES: No known allergies. SOCIAL HISTORY: She lives by herself. She has a friend support her. She smokes sometimes cocaine, used drugs before. ALLERGIES: No known allergy. FAMILY HISTORY: Noncontributory. MEDICATIONS: She takes a lot of medications. She takes levothyroxine 125 mcg a day, Eliquis 5 mg b. i.d., Lanoxin 0.125 mg 1 a day, Glucophage 1000 b.i.d., potassium 20, Lasix 40 p.o. daily, potassium 20 p.o. daily and Cozaar 12.5 mg once a day. She also supposedly to be on a beta melissa. I think s he was on atenolol 25 once a day. PHYSICAL EXAMINATION: VITAL SIGNS: Temperature 98, heart rate 114, blood pressure 114/74, respirations 18, saturation 98 o n 2 liters. HEAD AND NECK: Normal. No JVD, no thyromegaly. CHEST: Clear, diminished breath sounds, right more than left. CARDIAC: First and second sounds are normal. ABDOMEN: Obese, nontender. EXTREMITIES: Bilateral leg edema below the knee. LABORATORY DATA: White count 11.5, hemoglobin 16.1, hematocrit 39.6, platelets 372. Chemistry shows sodium 132, potassium 4, chloride 88, bicarbonate 33, BUN 18, creatinine 0.7, blood sugar 609. Her bilirubin is 1.4, AST 40, ALT is normal. Alk phos is 173. ProBNP is 4530. Also, we have to get some reports on chest x-ray, which came in including chest CT. The patient had CT for evaluation of PE, but was unlikely clinically. It shows the following: No evidence of pulmon manuela embolism, large bilateral pleural effusion, compressive atelectasis affecting both lower lobes, t o a lesser extent right middle lobe and lingula, increased compared to prior CT on 05/31/2016. Electrocardiogram was done and it showed abnormal EKG, left bundle branch block, sinus tachycardia, h eart rate was 121. IMPRESSION AND PLAN: 1. This is a 51-year-old female with chronic nonischemic cardiomyopathy, on medication, seems to be getting worse in spite of Lasix, more bilateral pleural effusion compared with prior exam. Will admi t the patient to telemetry, get Dr. Kal Peña, pulmonary consult Dr. More and will also get cardi ology consult, Dr. Orozco. Will consider draining that fluid to help her symptomatically feel better a nd continue to diurese her. Will follow up consult recommendations. 2. Diabetes, seems uncontrolled, out of control, 500 range. We will give her Lantus plus insulin co verage. Will start with moderate coverage and Lantus in the morning and at night 15 units. Follow u p sugar and will continue to follow up on that. Repeat labs in the morning. Richardson Roman MD cc: [phone] TT: 06/21/2016 16:20:24 jose
[2016-06-21] MEDS ORDERED: Potassium Chloride 20 mEq ER Tab PO ONE (18:12)
--- NOTE | 2016-06-21 21:09 | PN ---
DATE: 06/21/2016 REFERRING PHYSICIAN: Dr. Roman. SUBJECTIVE: She is sitting side of the bed, having dinner. Night was unremarkable, feels better. D ecreased shortness breath, no cough, no nausea, no vomiting, no abdominal pain. Still has some leg s welling. OBJECTIVE: GENERAL: No acute distress. VITAL SIGNS: Temperature is 99, heart rate is 89, respiratory rate is 20, blood pressure 92/57, puls e ox 96% on 2 liters nasal cannula. HEENT: Moist mucous membrane. Crowded airway. NECK: Supple. No JVD. LUNGS: Has crackles on the right base. Decreased breath sounds at the left base. HEART: S1 and S2. ABDOMEN: Soft, nontender. No organomegaly. EXTREMITIES: Does have edema. NEUROLOGIC: Awake, alert, follows simple commands. LABORATORY DATA: Shows hemoglobin 11.5, hematocrit 34.7, WBC 15,000, platelet count is 324. Sodium 126, potassium 3.4, chloride 85, bicarbonate 35, BUN 26, creatinine 0.8, glucose 286, calcium 8.8, ph osphorus 3.6, AST 40, ALT 43, alkaline phosphatase is 127. Albumin is 2.9. MICROBIOLOGY: Blood culture and urine culture, there is no growth. IMPRESSION AND PLAN: Chronic obstructive lung disease, cardiomyopathy with pleural effusion, status post thoracentesis, drainage of 1.6 liters of fluid, may have component of sleep apnea syndrome, but noncompliant with the CPAP and refuses to use it, history of cholecystectomy, history of lymphoma. P ulmonary point of view, continue bronchodilator, keep head elevated at 45 degrees. Careful with tennille tion. Diuretic, afterload reducers. Fall precautions. We will place the patient on 1 liter of flui d restriction. Will follow with you. Mau More MD cc: [phone] TT: 06/21/2016 21:09:15 Confirmation # [id number] Dictation # [id number] jose
[2016-06-21] MEDS ORDERED: oxyCODONE 5 mg Immediate Release Tab PO ONE (23:10)
--- NOTE | 2016-06-22 01:37 | PN ---
DATE: 06/21/2016 The patient seen today. The patient feels less short of breath. She has chest pain on the right armin e of the chest on the back area where the thoracentesis taking place, otherwise she feels better. PHYSICAL EXAMINATION: VITAL SIGNS: Today her temperature 99.4, heart rate is 89, blood pressure is 116/69, respirations 18 , saturation 96% on room air. HEAD AND NECK: Normal. No JVD, no thyromegaly. CHEST: There are diminished breath sounds on the right side. There is also left lung bronchial rosina thing. CARDIAC: First and second sounds are normal. ABDOMEN: Soft, nontender. EXTREMITIES: Mild edema, better. NEUROLOGIC: Normal. LABORATORY DATA: White count 15.4, hemoglobin 11.5, hematocrit 34.7, platelets 324. Chemistry: Sod ium 126, potassium 3.4, chloride 85, bicarbonate 35, BUN 26, creatinine 0.8, blood sugar is 286, and magnesium is 1.9. IMPRESSION AND PLAN: 1. Acute congestive heart failure on top of chronic systolic heart failure. Continue IV Lasix and c ontinue Lovenox and Cozaar. 2. Diabetes. The patient is running 200s. Continue metformin, insulin coverage high coverage plus Lantus 15 units b.i.d. 3. The patient complained of right-sided chest pain. We will give her oxycodone. Will repeat chest x-ray in the morning to look at the fluid level and any changes. 4. Hypothyroidism, history of deep venous thrombosis. Continue Eliquis. Continue Synthroid. Follo w up clinically. 5. Obstructive sleep apnea, BiPAP at night. Follow up with loan clerk. Continue current managem ent. Richardson Roman MD cc: [phone] TT: 06/22/2016 01:37:16 Confirmation # [id number] Dictation # [id number] jn
--- NOTE | 2016-06-22 05:06 | PN ---
DATE: 06/21/2016 DATE OF SERVICE: 06/21/2016 SUBJECTIVE: This patient was seen and evaluated earlier today. The patient has no nausea now, she is tolerating the diet and there is chest discomfort. The patient is feeling slightly better. The patient did have thoracentesis yesterday. PHYSICAL EXAMINATION: VITAL SIGNS: Stable. HEENT: Atraumatic, anicteric. NECK: Supple. HEART: S1, S2 heard. LUNGS: Bilateral air entry present, reduced at the bases. ABDOMEN: Soft. There is no tenderness. EXTREMITIES: Edema present. LABORATORY DATA: Reviewed. IMPRESSION: This 51-year-old patient is status post cholecystectomy, intraoperative cholangiogram normal, now admitted with shortness of breath. The patient is being treated for CHF. The patient did have a pleural effusion, status post thoracentesis done. I would recommend continue the present management. Discussed with the patient again about puree diet, the patient adamantly refusing now, history of gastroparesis before. The patient's LFTs evaluation could be multifactorial and secondary to drug induced transeminitis, congestive heart failure. Status post laparoscopic cholecystectomy with intraoperative cholangiogram normal, diabetes mellitus, poorly controlled. We would recommend 1. To follow up with the LFTs. 2. Continue the present treatment. Thank you for allowing us to participate in the care of this patient. Renuka Quigley MD cc: [id number] TT: 06/22/2016 05:05:54 Confirmation # [id number] Dictation # [id number] tn MTDD
[2016-06-22 06:46] LABS: ALKALINE PHOSPHATASE 114 U/L (38-133); ALT/SGPT 33 U/L (7-56); AST/SGOT 28 U/L (15-39); BILIRUBIN,TOTAL 0.8 mg/dL (0.2-1.3); BLOOD UREA NITROGEN 22 mg/dL (7-21); CALCIUM 8.7 mg/dL (8.4-10.5); CARBON DIOXIDE 37 mmol/L (21-33); CHLORIDE 83 mmol/L (98-107); GFR AFRICAN-AMERICAN > 60; GLUCOSE,RANDOM 128 mg/dL (70-110); POTASSIUM 3.2 mmol/L (3.6-5.0); SODIUM 128 mmol/L (132-148); TOTAL PROTEIN 5.9 g/dL (5.8-8.3)
[2016-06-22] MEDS: Insulin Reg-HIGH-Coverage SC SCH ×4 (07:30→22:06)
--- NOTE | 2016-06-22 07:37 | CON ---
DATE: 06/21/2016 GI Consult: Abdominal Pain. This patient was seen and evaluated earlier. This 51-year-old patient is status post cholecystectomy, intraoperative cholangiogram done with multiple admissions recently, presented to the Emergency Room again with complaints of shortness of breath. The patient was found to have a large pleural effusion bilaterally, right lung is ____. PAST MEDICAL HISTORY: Significant for cardiomyopathy, pleural effusion, obstructive sleep apnea, DVT, hypothyroidism. ALLERGIES: No known drug allergies. SOCIAL HISTORY: Denies smoking. No alcohol. FAMILY HISTORY: Noncontributory. REVIEW OF SYSTEMS: Positive as above. Other systems reviewed. The patient did have a thoracentesis today. Complains of discomfort in the right side. PHYSICAL EXAMINATION: GENERAL: The patient is lying on the bed, not in acute distress. VITAL SIGNS: Temperature is 97.2, blood pressure is 110/73, pulse 88, respirations 19. HEENT: Atraumatic, anicteric. NECK: Supple. HEART: S1, S2 heard. LUNGS: Bilateral air entry present. Reduced in the bases. ABDOMEN: Softly distended. There is minimal tenderness in epigastric area. EXTREMITIES: Bilateral edema present. NEUROLOGIC: Alert, oriented. Moves all the extremities. The patient is status post thoracentesis. LABORATORY DATA: Hemoglobin 11.5, hematocrit 34.7, WBC 15.4, platelets 324. Chemistry is essentially unremarkable, except sugar is elevated. Glucose 143. BNP is 5600. LFTs mildly elevated alkaline phos at173. ALT is normal. ASSESSMENT AND PLAN: 1. This 71-year-old patient admitted with shortness of breath, found to be in congestive heart failure, pleural effusion. The patient had followup thoracentesis today. Complaining of some discomfort at the site. Tolerated procedure. History of nausea. Most likely cause for the nausea, vomiting could be secondary to gastroparesis, glucose poorly controlled. In the past hospitalization, she was put on a pureed diet, PPI and a short course of Reglan. 2. Pleural effusion, status post thoracentesis, congestive heart failure, chronic obstructive pulmonary disease, status post cholecystectomy. The patient did have elevated LFTs at that time and the most likely cause was multifactoral, hepatic congestion and likley drug-induced. Thank you for si consult and for allowing me to participate in her care. Renuka Quigley MD cc: [id number] TT: 06/21/2016 16:37:27 Confirmation # [id number] Dictation # [id number] rn 06/22/2016 06:37:06 GINA
[2016-06-22] MEDS: Levothyroxine 125 MCG TAB PO SCH (08:05)
[2016-06-22] MEDS: Levalbuterol 0.63 MG/3 ML Inhal Soln UD IH SCH ×3 (08:10→20:12)
[2016-06-22] MEDS ORDERED: Sodium Chloride 0.9% 1,000 ML IV SCH (09:45)
[2016-06-22] MEDS ORDERED: cefTRIAXone 1 gm 100 ML IVPB SCH (10:00)
--- NOTE | 2016-06-22 10:02 | PN ---
DATE: 06/22/2016 REASON FOR CONSULTATION AND FOLLOWUP: Congestive heart failure. 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 Denies any chest pain, but complained of pain at the site of thoracentesis, f eels better. PHYSICAL EXAMINATION: VITAL SIGNS: Temperature afebrile, heart rate 64, blood pressure 106/64. HEENT: PERRLA. Extraocular muscles intact. NECK: Supple. No carotid bruits. No thyromegaly. CHEST: Clear to auscultation. HEART: S1, S2 regular. ABDOMEN: Soft. EXTREMITIES: Clubbing and cyanosis negative. LABORATORY DATA: WBC 15.4, hemoglobin 11.1, hematocrit 34.7, platelet count 324. Chemistry shows so dium 120, potassium 3.2, chloride 83, carbon dioxide 37, anion gap of 11, BUN 22, creatinine 0.7. IMPRESSION: Hyponatremia, hypokalemia, congestive heart failure secondary to nonischemic cardiomyopa thy, status post lymphoma and status post chemotherapy, pleural effusion status post right thoracente sis, 1.6 L of fluid drained through the thoracentesis. Cardiomyopathy secondary to chemotherapy, non ischemic cardiomyopathy, status post cardiac catheterization 03/2015 that revealed nonobstructive cor onary artery disease, ejection fraction 40-45%. Recent MUGA on 04/13/2016 showed ejection fraction 5 5%. A year ago before the MUGA scan 04/11/2015, ejection fraction 56%, history of deep vein thrombos is, status post cholecystectomy and removal of Port-A-Cath, history of lymphoma, tricuspid regurgitat ion, mitral regurgitation. Cellulitis, right lower leg edema. RECOMMENDATION: The patient was started on Lasix and Zaroxolyn was given, significantly improved. W e will discontinue Zaroxolyn because of hyponatremia. We will change the Lasix to once a day. Hypon atremia, give 500 mL of normal saline 50 mL an hour. Change to Lasix to 40 once a day, give normal s lorenzo 500 mL, supplement potassium, continue Eliquis and discontinue Zaroxolyn. Continue antibiotic. We will repeat echo to assess LV function, mitral regurgitation. The patient's last echocardiograp hy 04/07/2016 that showed ejection fraction 30%, severe mitral regurgitation, mild tricuspid regurgit ation as well RV systolic pressure of 54. We will repeat lab tomorrow and depending upon sodium and potassium level, we will adjust diuretics again Thank you, Dr. Roman, for providing the opportunity in taking care of the patient, though the patien t is lying flat without any shortness of breath. Mau Orozco MD cc: [id number] TT: 06/22/2016 10:02:26 Confirmation # [id number] Dictation # [id number] tn
--- NOTE | 2016-06-22 10:08 | RAD ---
HISTORY: Post Thoracentesis COMPARISON: 06/19/2016 TECHNIQUE: Chest PA and lateral FINDINGS: LUNGS: No active pulmonary disease. PLEURA: Small bilateral pleural effusions and bibasilar infiltrates. No evidence of pneumothorax CARDIOVASCULAR: Normal. OSSEOUS STRUCTURES: No significant abnormalities. VISUALIZED UPPER ABDOMEN: Normal. OTHER FINDINGS: None. IMPRESSION: No evidence of pneumothorax
[2016-06-22] MEDS: Insulin Detemir 100 units/ml Vial (Levemir) SC SCH ×2 (10:19→22:11)
[2016-06-22] MEDS: Potassium Chloride 20 mEq ER Tab PO SCH (10:21)
[2016-06-22] MEDS ORDERED: Potassium Chloride 20 mEq/15 ml LIQ UD PO ONE (13:00)
[2016-06-22] MEDS: Cefepime 1gm in NS 100ml 100 ML IVPB SCH ×2 (14:57→22:10)
[2016-06-22] MEDS: Digoxin 250 mcg (0.25 mg) Tab PO SCH (14:59)
[2016-06-22 15:02] LABS: PH,URINE 6.5 (4.7-8.0); URINE BILIRUBIN NEGATIVE (NEGATIVE); URINE BLOOD NEGATIVE (NEGATIVE); URINE GLUCOSE (UA) 250 mg/dL (NEGATIVE); URINE KETONE NEGATIVE (NEGATIVE); URINE LEUKOCYTE ESTERASE NEGATIVE Leu/uL (NEGATIVE); URINE PROTEIN NEGATIVE mg/dL (<30 mg/dL); URINE UROBILINOGEN 0.2 E.U./dL (<1 E.U./dL)
[2016-06-22 15:04] LABS: URINE APPEARANCE CLEAR (CLEAR); URINE COLOR YELLOW (YELLOW)
--- NOTE | 2016-06-22 15:32 | CP.PCM.CON ---
History of Present Illness - History of Present Illness History of Present Illness: 51 year old female with PMH of HTN, hypothyroidism, DM, chronic CHF, history of migraines, bipolar disorder, history of acute cholecystitis S/P laparoscopic cholectstectomy in Apr 2016 was admitted because of worsening shortness of breath and dyspnea on exertion associated with 3 pillow orthopnea and dry cough. The patient denies chest pain or chest palpitations, no hematuria, no dysuria, no sore throat, no fever or chills, no muscle or joint aches, no abdominal pain, no dysphagia, no diarrhea. She is currently being treated for acute decompensated heart failure. She was also found to have bilateral pleural effusions and underwent ultrasound-guided thoracentesis which revealed straw- colored clear fluid. Although she is clinically getting better, she continues to have leukocytosis and Infectious Diseases consult is requested to further evaluate and manage. Currently the patient is comfortable in bed, not in distress, with intermittent dry cough only. Review of Systems - Review of Systems All systems: reviewed and no additional remarkable complaints except (as per HPI ) Past Patient History - Infectious Disease Hx of Infectious Diseases: None - Tetanus Immunizations Tetanus Immunization: Unknown - Past Medical History & Family History Past Medical History?: Yes - Past Social History Smoking Status: Former Smoker Alcohol: Occasional Drugs: Denies Home Situation {Lives}: Alone (I have reviewed the patient's past histories and I agree with the above findings.) - CARDIAC Hx Cardiac Disorders: Yes Hx Congestive Heart Failure: Yes Hx Hypertension: Yes - PULMONARY Hx Respiratory Disorders: Yes Hx Chronic Obstructive Pulmonary Disease (COPD): Yes - NEUROLOGICAL Hx Neurological Disorder: No - HEENT Hx HEENT Problems: No Hx Blind: No Hx Cataracts: No Hx Deafness: No Hx Difficulty Chewing: No Hx Epistaxis: No Hx Glaucoma: No Hx Macular Degeneration: No - RENAL Hx Chronic Kidney Disease: No - ENDOCRINE/METABOLIC Hx Endocrine Disorders: Yes Hx Diabetes Mellitus Type 2: Yes Hx Hypothyroidism: Yes - HEMATOLOGICAL/ONCOLOGICAL Hx Blood Disorders: No - INTEGUMENTARY Hx Dermatological Problems: No Hx Basil Cell: No Hx Eczema: No Hx Melanoma: No Hx Psoriasis: No Hx Squamous Cell: No - MUSCULOSKELETAL/RHEUMATOLOGICAL Hx Musculoskeletal Disorders: No - GASTROINTESTINAL Hx Gastrointestinal Disorders: No - GENITOURINARY/GYNECOLOGICAL Hx Genitourinary Disorders: No - PSYCHIATRIC Hx Psychophysiologic Disorder: No Hx Substance Use: No (H/O OF COCAINE MARIJUANA USE) - SURGICAL HISTORY Hx Appendectomy: No Hx Cholecystectomy: No Hx Coronary Stent: No Other/Comment: port-a-cath placement - ANESTHESIA Hx Anesthesia Reactions: No Hx Malignant Hyperthermia: No Meds Allergies/Adverse Reactions: Allergies Allergy/AdvReac Type Severity Reaction Status Date / Time No Known Allergies Allergy Verified 06/19/16 09:49 - Medications Medications: Current Medications Apixaban (Eliquis) 5 mg PO Q12 IZAB[facility]A PRN Reason: Protocol Last Admin: 06/22/16 10:21 Dose: 5 mg Carvedilol (Coreg) 3.125 mg PO BID [facility] Last Admin: 06/22/16 10:21 Dose: 3.125 mg Digoxin (Lanoxin) 0.25 mg PO 1400 IZABELA Furosemide (Lasix) 40 mg IV DAILY [facility] Sodium Chloride (Sodium Chloride 0.9%) 1,000 mls @ 50 mls/hr IV .Q20H [facility] Stop: 06/22/16 19:00 Last Admin: 06/22/16 10:19 Dose: 50 mls/hr Cefepime HCl (Maxipime 1gm) 100 mls @ 100 mls/hr IVPB Q8 IZABELA PRN Reason: Protocol Stop: 06/29/16 14:01 Doxycycline Hyclate 100 mg/ (Sodium Chloride) 100 mls @ 100 mls/hr IVPB Q12 IZABELA PRN Reason: Protocol Insulin Detemir (Levemir) 15 unit SC Q12 [facility] Last Admin: 06/22/16 10:19 Dose: 15 unit Insulin Human Regular (Humulin R High) 0 units SC ACHS IZABELA PRN Reason: Protocol Last Admin: 06/22/16 07:30 Dose: Not Given Levalbuterol HCl (Xopenex) 0.63 mg IH TIDRESP [facility] Last Admin: 06/22/16 08:10 Dose: Not Given Levothyroxine Sodium (Synthroid) 125 mcg PO ACB [facility] Last Admin: 06/22/16 08:05 Dose: 125 mcg Losartan Potassium (Cozaar) 12.5 mg PO DAILY [facility] Last Admin: 06/22/16 10:21 Dose: 12.5 mg Metformin HCl (Glucophage) 1,000 mg PO BRKDIN [facility] Last Admin: 06/22/16 08:25 Dose: 1,000 mg Ondansetron HCl (Zofran Inj) 4 mg IVP Q6H PRN PRN Reason: Nausea/Vomiting Oxycodone HCl (Oxycodone Immediate Release Tab) 5 mg PO BID PRN PRN Reason: Pain, severe (8-10) Last Admin: 06/21/16 21:04 Dose: 5 mg Potassium Chloride (K-Dur 20 Meq Er Tab) 20 meq PO DAILY [facility] Last Admin: 06/22/16 10:21 Dose: 20 meq Potassium Chloride (Potassium Chloride Oral Soln) 20 meq PO ONCE ONE Stop: 06/22/16 13:01 Propranolol HCl (Inderal) 10 mg PO TID [facility] Last Admin: 06/22/16 10:20 Dose: 10 mg Physical Exam - Constitutional Appears: Non-toxic, No Acute Distress - Head Exam Head Exam: NORMAL INSPECTION - Neck Exam Neck exam: Negative for: Lymphadenopathy, Meningismus - Respiratory Exam Respiratory Exam: Decreased Breath Sounds - Cardiovascular Exam Cardiovascular Exam: +S1, +S2 - GI/Abdominal Exam GI & Abdominal Exam: Soft. absent: Tenderness Results - Vital Signs Recent Vital Signs: Last Vital Signs Temp 97.9 F 06/22/16 06:00 Pulse 90 06/22/16 10:21 Resp 20 06/22/16 06:00 BP 100/52 L 06/22/16 10:21 Pulse Ox 92 L 06/22/16 06:00 - Labs Result Diagrams: 06/21/16 04:10 06/22/16 05:30 Labs: Laboratory Results - last 24 hr 06/21/16 06/21/16 06/21/16 07:08 11:16 15:56 Sodium Potassium Chloride Carbon Dioxide Anion Gap BUN Creatinine Est GFR ( Amer) Est GFR (Non-Af Amer) POC Glucose (mg/dL) 200 H 312 H 98 Random Glucose Calcium Total Bilirubin AST ALT Alkaline Phosphatase Total Protein Albumin Globulin Albumin/Globulin Ratio 06/21/16 06/22/16 06/22/16 22:15 05:30 07:39 Sodium 128 L Potassium 3.2 L Chloride 83 L Carbon Dioxide 37 H Anion Gap 11 BUN 22 H Creatinine 0.7 Est GFR ( Amer) > 60 Est GFR (Non-Af Amer) > 60 POC Glucose (mg/dL) 261 H 89 Random Glucose 128 H Calcium 8.7 Total Bilirubin 0.8 AST 28 ALT 33 Alkaline Phosphatase 114 Total Protein 5.9 Albumin 2.9 L Globulin 3.0 Albumin/Globulin Ratio 1.0 L Assessment & Plan - Assessment and Plan (Free Text) Plan: Assessment Systemic Inflammatory Response Syndrome (leukocytosis, tachycardia) R/O sepsis secondary to bilateral healthcare-associated pneumonia in this patient with acute decompensated heart failure with bilateral pleural effusions S/P thoracentesis on the right side S/P acute cholecystitis, S/P laparoscopic cholecystectomy CAD with chronic CHF DM HTN history of migraines bipolar disorder Plan started patient on Cefepime and Doxycycline pending blood cx, sputum cx, PCT; reviewed CXR which revealed the bilateral infiltrates Will monitor clinically
--- NOTE | 2016-06-22 19:57 | PN ---
DATE: 06/22/2016 The patient seems stable. She complains of right-sided chest pain at the site of thoracentesis. Oth erwise, she feels better. Leg edema is better and afebrile. PHYSICAL EXAMINATION: VITAL SIGNS: Today temperature 97.2, heart rate 94, blood pressure is 92/64, respiration 19. HEAD AND NECK: Normal. No JVD, no thyromegaly. CHEST: Clear, good air entry. CARDIAC: First and second sounds are normal. ABDOMEN: Soft, nontender. EXTREMITIES: Bilateral leg edema, mild. LABORATORY DATA: White count 15.4, hemoglobin 11.5, hematocrit 34.7, platelets 324. Chemistry: Sod ium 128, potassium 3.2, chloride 83, bicarbonate 37, BUN 22, creatinine 0.7, blood sugar 128. Liver enzymes are normal. Procalcitonin was done, also was normal. Chest x-ray done shows diminished flui ds and bilateral pleural effusions small and bilateral lower lobes of the lungs atelectasis or infilt rates. IMPRESSION: 1. Leukocytosis, etiology unclear in the presence of bilateral questionable infiltrates in both lung s. Will get an ID consult. Follow up with the pulmonary consults. Possibly will start her on IV an tibiotic. The patient does come frequently to the hospital and possibility hospital-acquired pneumon ia. 2. Bilateral pleural effusions, improved. Continue Lasix. Monitor leg edema. 3. Congestive heart failure, acute systolic on top of chronic. Continue Lasix, continue all other c ardiac meds. 4. History of deep vein thrombosis. The patient getting Eliquis. 5. Hypothyroidism. Continue all other medication. Follow up clinically. Richardson Roman MD cc: [phone] TT: 06/22/2016 19:56:23 Confirmation # [id number] Dictation # [id number] devin
[2016-06-23] MEDS: Cefepime 1gm in NS 100ml 100 ML IVPB SCH ×4 (05:15→21:24)
[2016-06-23 06:20] LABS: ADD MANUAL DIFF? NO
[2016-06-23 06:28] LABS: BASO # 0.03 K/mm3 (0.0-2.0); BASO % 0.3 % (0.0-3.0); EOS # 0.3 (0.0-0.7); EOS % 2.1 % (1.5-5.0); GRAN # 7.97 (1.4-6.5); GRAN % 67.3 % (50.0-68.0); HEMATOCRIT 35.2 % (36.0-48.0); LYMPH # 2.5 (1.2-3.4); LYMPH % 20.8 % (22.0-35.0); MEAN CELL VOLUME 78.6 fL (80.0-105.0); MEAN CORPUSCULAR HEMOGLOBIN 25.9 pg (25.0-35.0); MEAN PLATELET VOLUME 11.5 fl (7.0-11.0); MONO # 1.1 (0.1-0.6); MONO % 9.5 % (1.0-6.0); PLATELET COUNT 386 10^3/uL (120.0-450.0); RED CELL DISTRIBUTION WIDTH 15.5 % (11.5-14.5); WHITE BLOOD COUNT 11.9 10^3/ul (4.5-11.0)
[2016-06-23 06:38] LABS: ALKALINE PHOSPHATASE 146 U/L (38-133); ALT/SGPT 35 U/L (7-56); AST/SGOT 49 U/L (15-39); BILIRUBIN,TOTAL 0.7 mg/dL (0.2-1.3); BLOOD UREA NITROGEN 14 mg/dL (7-21); CALCIUM 8.8 mg/dL (8.4-10.5); CARBON DIOXIDE 35 mmol/L (21-33); CHLORIDE 87 mmol/L (98-107); GFR AFRICAN-AMERICAN > 60; GLUCOSE,RANDOM 147 mg/dL (70-110); MAGNESIUM 1.9 mg/dL (1.7-2.2); PHOSPHOROUS 3.5 mg/dL (2.5-4.5); POTASSIUM 3.4 mmol/L (3.6-5.0); SODIUM 131 mmol/L (132-148); TOTAL PROTEIN 6.3 g/dL (5.8-8.3)
--- NOTE | 2016-06-23 08:16 | PN ---
DATE: 06/22/2016 REFERRING PHYSICIAN: Dr. Roman. SUBJECTIVELY: The patient is lying in the bed, head at 45 degrees. Feels okay. Decreased shortness of breath. No cough, no nausea, no vomiting, no diarrhea. Still afraid that she is going to get vo miting after eating. Decreased leg swelling. OBJECTIVELY: No acute distress. Temp is 98, heart rate is 94, respiratory rate is 20, blood pressure 96/52. HENT: Moist mucous membranes. No ulcer or oral thrush noted. NECK: Supple. No JVD. LUNGS: Has crackles at the bases. HEART: S1, S2. ABDOMEN: Soft, nontender. No organomegaly. EXTREMITIES: There is trace edema. NEUROLOGICALLY: Awake, alert. Follows simple commands. MEDICATIONS: She is on Coreg 3.125 mg twice a day, Cozaar 12.5 mg daily, doxycycline 100 mg twice a day, Eliquis 5 mg twice a day, metformin 1 g twice a day, insulin coverage, Inderal 10 mg 3 times a d ay, potassium 20 mEq daily, digoxin 0.25 mg daily, Lasix 40 mg IV daily, Levemir 15 units subQ q. 12 hours, cefepime 1 g IV q. 8 hours, oxycodone 5 mg twice a day p.r.n., Synthroid 125 mcg ACB, Xopenex inhaled 3 times a day, Zofran p.r.n. basis. LABORATORY DATA: Shows sodium 128, potassium 3.2, chloride 83, bicarbonate 37, BUN 22, creatinine 0. 7, glucose 128, calcium 8.7. AST 28, ALT 33, alk phos is 114, albumin 2.9, procalcitonin 0.7. MICROBIOLOGY: Blood cultures, urine culture: There is no growth. CHEST X-RAY: Shows bilateral pleural effusion and basilar infiltrate, mostly atelectasis. IMPRESSION AND PLAN: Chronic obstructive lung disease, cardiomyopathy with pleural effusion status p ost thoracentesis. May have a sleep apnea syndrome. Diabetes, bipolar disorder, history of cholecys tectomy, history of lymphoma. Pulmonary point of view, doing okay. Continue bronchodilator. Keep head elevated 45 degrees. Sleep apnea precautions. Careful with sedation. Continue diuretics, , gastric and DVT prophylaxis. Hypernatremia. Restrict free water. Thank you, and will follow. Mau More MD cc: [id number] TT: 06/22/2016 23:36:59 Confirmation # [id number] Dictation # [id number] jn
[2016-06-23] MEDS: Levothyroxine 125 MCG TAB PO SCH (08:30)
[2016-06-23] MEDS: Insulin Reg-HIGH-Coverage SC SCH ×4 (08:30→21:29)
[2016-06-23] MEDS: Levalbuterol 0.63 MG/3 ML Inhal Soln UD IH SCH ×3 (09:12→20:18)
[2016-06-23] MEDS: Potassium Chloride 20 mEq ER Tab PO SCH (10:34)
[2016-06-23] MEDS: Insulin Detemir 100 units/ml Vial (Levemir) SC SCH ×2 (10:34→21:28)
--- NOTE | 2016-06-23 11:30 | PN ---
DATE: 06/23/2016 Seen and examined at the bedside earlier. She finished her breakfast tray and does not report any na usea, vomiting, or abdominal pain. Denies any shortness of breath or chest pain. She had a thoracen tesis 2 days ago. No new complaints. VITAL SIGNS: Temperature is 97.5, blood pressure is 118/74, pulse is 102, respirations 18, and 96% o n room air. LABORATORY DATA: WBC is 11.9, this is improved. H and H 11.6 and 35.2. This is steady. Her platel et is 386. Sodium is 131, K is 3.4, chloride 87, carbon dioxide 35, BUN 14, creatinine 0.6. Her mag is 1.9, total bilirubin 0.7, AST 49, ALT 35, alkaline phosphatase is 146. Her LFTs are fluctuating. PHYSICAL EXAMINATION: HEENT: Sclerae anicteric. NECK: Supple. CARDIAC: S1, S2. LUNGS: Lung sounds, with decreased breath sounds, greater on the right side, but good air entry. ABDOMEN: With bowel sounds. Soft, nontender. No rebound or guarding. EXTREMITIES: She does have bilateral edema, but it looks better. NEUROLOGIC: Awake, alert, and oriented. ASSESSMENT: This patient with bilateral pleural effusion, status post right-sided thoracentesis, con gestive heart failure, resolved nausea, and abdominal pain with history of gastroparesis. The patien t is noted to have elevated liver function tests, which could be multifactorial, could be secondary t o congestive heart failure or even drug induced transaminitis. The patient does have a history of re cent laparoscopic cholecystectomy with intraoperative cholangiogram, which did not show any filling d efects. She had a hepatitis panel, which was negative. She also has history of diabetes mellitus, w hich is poorly controlled. PLAN: Continue to trend her LFTs, avoid hepatotoxic medications. Continue her diet as tolerated. S he is on doxycycline IV antibiotics, on cefepime. She is also on Eliquis, history of DVT. The patie nt reports that she has not had a bowel movement since Monday, but she does not want any laxatives. Will follow up. The patient was seen and case discussed with Dr. Quigley, as per cardiology, pulmon manuela, and ID. Faye ARECHIGA cc: [id number] TT: 06/23/2016 11:30:30 Confirmation # [id number] Dictation # [id number] jn
[2016-06-23] MEDS ORDERED: Potassium Chloride 20 mEq/15 ml LIQ UD PO STA (12:46)
[2016-06-23 13:12] VITALS: RESP 20
--- NOTE | 2016-06-23 13:46 | PN ---
DATE: 06/23/2016 REASON FOR CONSULTATION AND FOLLOWUP: Congestive heart failure. BRIEF CLINICAL HISTORY: A 51-year-old female with a past medical history significant for psychiatric disorder, psychotic disease, bipolar disorder, congestive heart failure, nonischemic cardiomyopathy secondary to chemotherapy, history of lymphoma, history of DVT, history of right brachial vein thromb osis, recently history of cholecystectomy and removal of Port-A-Cath, admitted with decompensated con gestive heart failure, pleural effusion, status post right thoracentesis. Denies any chest pain, but complained of pain at the site of thoracentesis, feels better than before. Lying flat on the bed, n o shortness of breath. Leg edema is going down. PHYSICAL EXAMINATION: VITAL SIGNS: Temperature afebrile, heart rate 97, blood pressure 100/60. HEENT: PERRLA. Extraocular muscles intact. NECK: Supple. No carotid bruits. No thyromegaly. CHEST: Clear to auscultation. HEART: S1, S2 regular. ABDOMEN: Soft. EXTREMITIES: Clubbing and cyanosis negative. LABORATORY DATA: Blood workup as follows: Chemistry shows sodium 131, potassium 3.4, chloride 87, c arbon dioxide 35, anion gap of 12, BUN 14, creatinine 0.6 IMPRESSION: Recurrent pleural effusion, status post right-sided thoracentesis, 1.6 L was drained. F luid analysis pending. Congestive heart failure secondary to nonischemic cardiomyopathy, acute on ch ronic secondary to mild systolic dysfunction, status post thoracentesis as mentioned, cardiomyopathy secondary to chemotherapy secondary to lymphoma, chemotherapy. The patient had a cardiac catheteriza tion 03/2015 that revealed nonobstructive coronary artery disease. Ejection fraction 40-45%. Echo s hows ejection fraction 35-40%. Most recently MUGA on 04/13/2016 ejection fraction 55%. A year ago b efore the MUGA scan 04/11/2015. History of right brachial vein thrombosis, status post cholecystecto my, status post removal of Port-A-Cath, tricuspid regurgitation, mitral regurgitation, cellulitis of right lower extremity, edema of the right upper and lower extremity, subsiding. RECOMMENDATION: Continue supplement potassium. Continue Lasix, cut down to once a day. The patient was given a couple of doses of Zaroxolyn that significantly improved the swelling of the leg. Isela lerma the lab. Supplement potassium. We will discontinue telemetry. Thank you, Dr. Roman, for providing us the opportunity in taking care of the patient. Mau Orozco MD cc: [id number] TT: 06/23/2016 13:46:08 Confirmation # [id number] Dictation # [id number] tn
[2016-06-23] MEDS: Digoxin 250 mcg (0.25 mg) Tab PO SCH (14:28)
--- NOTE | 2016-06-23 15:17 | CP.PCM.PN ---
Subjective - Date & Time of Evaluation Date of Evaluation: 06/23/16 Time of Evaluation: 09:25 - Subjective Subjective: Comfortable in bed, not in distress, no fevers, less shortness of breath. Objective - Vital Signs/Intake and Output Vital Signs (last 24 hours): Temp Pulse Resp BP Pulse Ox 98.4 F 94 H 18 121/74 96 06/23/16 00:01 06/23/16 02:00 06/23/16 00:01 06/23/16 00:01 06/22/16 09:00 Intake and Output: 06/22/16 06/23/16 18:59 06:59 Intake Total 720 Output Total 200 Balance 520 - Medications Medications: Current Medications Apixaban (Eliquis) 5 mg PO Q12 [facility] PRN Reason: Protocol Last Admin: 06/22/16 22:11 Dose: 5 mg Carvedilol (Coreg) 3.125 mg PO BID [facility] Last Admin: 06/22/16 18:17 Dose: Not Given Digoxin (Lanoxin) 0.25 mg PO 1400 [facility] Last Admin: 06/22/16 14:59 Dose: 0.25 mg Furosemide (Lasix) 40 mg IV DAILY [facility] Cefepime HCl (Maxipime 1gm) 100 mls @ 100 mls/hr IVPB Q8 [facility] PRN Reason: Protocol Stop: 06/29/16 14:01 Last Admin: 06/23/16 05:15 Dose: 100 mls/hr Doxycycline Hyclate 100 mg/ (Sodium Chloride) 100 mls @ 100 mls/hr IVPB Q12 [facility] PRN Reason: Protocol Last Admin: 06/22/16 22:10 Dose: 100 mls/hr Insulin Detemir (Levemir) 15 unit SC Q12 [facility] Last Admin: 06/22/16 22:11 Dose: 15 unit Insulin Human Regular (Humulin R High) 0 units SC ACHS [facility] PRN Reason: Protocol Last Admin: 06/22/16 22:06 Dose: Not Given Levalbuterol HCl (Xopenex) 0.63 mg IH TIDRESP [facility] Last Admin: 06/22/16 20:12 Dose: Not Given Levothyroxine Sodium (Synthroid) 125 mcg PO ACB [facility] Last Admin: 06/22/16 08:05 Dose: 125 mcg Losartan Potassium (Cozaar) 12.5 mg PO DAILY [facility] Last Admin: 06/22/16 10:21 Dose: 12.5 mg Metformin HCl (Glucophage) 1,000 mg PO BRKDIN [facility] Last Admin: 06/22/16 18:17 Dose: 1,000 mg Ondansetron HCl (Zofran Inj) 4 mg IVP Q6H PRN PRN Reason: Nausea/Vomiting Oxycodone HCl (Oxycodone Immediate Release Tab) 5 mg PO BID PRN PRN Reason: Pain, severe (8-10) Last Admin: 06/21/16 21:04 Dose: 5 mg Potassium Chloride (K-Dur 20 Meq Er Tab) 20 meq PO DAILY [facility] Last Admin: 06/22/16 10:21 Dose: 20 meq Propranolol HCl (Inderal) 10 mg PO TID [facility] Last Admin: 06/22/16 18:17 Dose: Not Given - Labs Labs: 06/21/16 04:10 06/22/16 05:30 PT 13.4 Seconds (9.9-11.8) H 06/19/16 10:19 INR 1.24 (0.93-1.08) H 06/19/16 10:19 APTT 27.1 Seconds (23.7-30.8) 06/19/16 10:19 - Constitutional Appears: Non-toxic, No Acute Distress - Head Exam Head Exam: NORMAL INSPECTION - ENT Exam ENT Exam: Mucous Membranes Moist - Neck Exam Neck Exam: absent: Lymphadenopathy, Meningismus - Respiratory Exam Respiratory Exam: Decreased Breath Sounds - Cardiovascular Exam Cardiovascular Exam: +S1, +S2 - GI/Abdominal Exam GI & Abdominal Exam: Soft. absent: Tenderness Assessment and Plan - Assessment and Plan (Free Text) Plan: Assessment Systemic Inflammatory Response Syndrome (leukocytosis, tachycardia) R/O sepsis secondary to bilateral healthcare-associated pneumonia in this patient with acute decompensated heart failure with bilateral pleural effusions S/P thoracentesis on the right side, clinically improving S/P acute cholecystitis, S/P laparoscopic cholecystectomy CAD with chronic CHF DM HTN history of migraines bipolar disorder Plan on Cefepime and Doxycycline (day 2); blood cx are negative x 1 day; still awaiting sputum cx; PCT is only 0.07; reviewed CXR which revealed the bilateral infiltrates; if cx continue to be negative by tomorrow, will consider d/c of Cefepime Will continue to monitor clinically
--- NOTE | 2016-06-23 23:14 | PN ---
DATE: 06/23/2016 REFERRING PHYSICIAN: Dr. Roman. SUBJECTIVELY: She is sitting side of the bed. Mild cough, short of breath with exertion. No nausea , no vomiting, no diarrhea. Trace leg swelling. OBJECTIVELY: No acute distress. Temp is 98, heart rate is 98, respiratory rate is 20, blood pressure 102/69, pulse ox 95% on nasal ca nnula. HENT: Moist mucous membranes. Crowded airway. NECK: Supple, no JVD. LUNGS: Have a few crackles over the bases. HEART: S1 and S2. ABDOMEN: Soft, nontender. No organomegaly. EXTREMITY: Has trace edema. NEUROLOGICALLY: Awake, alert, follows simple command. MEDICATIONS: She is on Coreg 3.125 mg twice a day, Cozaar 12.5 mg daily, doxycycline 100 mg twice a day, Eliquis 5 mg twice a day, metformin 1000 mg twice a day, insulin coverage, Inderal 10 mg 3 times a day, potassium 20 mEq daily, digoxin 0.25 mg daily, Lasix 40 mg IV daily, Levemir 10 units subQ q. 12 hours, cefepime 1 g q. 8 hours, oxycodone immediate release 5 mg twice a day p.r.n., Synthroid 12 5 mcg ACB, Xopenex 0.63 three times a day, Zofran on p.r.n. basis. LABORATORY DATA: Shows hemoglobin 11.6, hematocrit 35.2, WBC 11.9, platelet is 386. Sodium 131, pot assium 3.4, chloride 87, bicarbonate 35, BUN 14, creatinine 0.6, glucose 147, calcium 8.8, phosphorus 3.5. AST 49, ALT 35, alk phos is 146, albumin is 3.1. IMPRESSION AND PLAN: Chronic obstructive lung disease, cardiomyopathy with pleural effusion status p ost thoracentesis. May have sleep apnea syndrome but refused to use CPAP. Diabetes, bipolar disorde r, history of cholecystectomy, history of lymphoma. Pulmonary point of view, she is doing okay. I had a long discussion with the patient about fluid res triction, causes of recurrent pleural effusions and leg swelling. She expressed understanding to res trict the fluids. Continue diuretics, bronchodilator. Thank you, and will follow with you. Mau More MD cc: [facility] TT: 06/23/2016 23:13:31 Confirmation # [id number] Dictation # [id number] jn
--- NOTE | 2016-06-24 01:09 | PN ---
DATE: 06/23/2016 ADDENDUM: This is an addendum to the GI progress report dictated by Faye Doherty NP. The patient de nies any abdominal pain, tolerating the diet. The patient is receiving antibiotics. History of deco mpensated heart failure, bilateral pleural effusion, status post cholecystectomy. Intraoperative cho langiogram was negative. LFTs are improving. The most likely cause of the LFT elevation is probably secondary to hepatic condition. Continue to follow up LFTs. Renuka Quigley MD cc: [id number] TT: 06/24/2016 01:08:39 Confirmation # [id number] Dictation # [id number] mn
[2016-06-24] MEDS: Cefepime 1gm in NS 100ml 100 ML IVPB SCH (06:02)
[2016-06-24] MEDS: Insulin Reg-HIGH-Coverage SC SCH ×4 (08:30→21:48)
[2016-06-24] MEDS: Levalbuterol 0.63 MG/3 ML Inhal Soln UD IH SCH ×3 (08:53→19:33)
[2016-06-24] MEDS ORDERED: Potassium Chloride 20 mEq ER Tab PO ONE (09:33)
--- NOTE | 2016-06-24 10:15 | PN ---
DATE: 06/24/2016 REASON FOR CONSULTATION AND FOLLOWUP: Congestive heart failure. 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 Admitted with decompensated congestive heart failure, pleural effusion, status post right-sided thoracentesis. Denies any chest pain, shortness of breath, any pal pitation now. Now, patient is in 5R, 577, bed 2, lying flat without pillows. PHYSICAL EXAMINATION: VITAL SIGNS: Temperature afebrile, heart rate , blood pressure 102/69. HEENT: PERRLA. Extraocular muscles intact. NECK: Supple. No carotid bruits. No thyromegaly. CHEST: Clear to auscultation. HEART: S1, S2 regular. ABDOMEN: Soft. EXTREMITIES: Clubbing, cyanosis negative. BLOOD WORKUP: WBC 11.9, hemoglobin 11.6, hematocrit 35.2, platelet count 386. Chemistry shows sodiu m , potassium 3.4, chloride , carbon dioxide 35, anion gap of 12 as of yesterday. IMPRESSION: Decompensated congestive heart failure, acute on chronic, secondary to systolic dysfunct ion, nonischemic cardiomyopathy secondary to chemotherapy for lymphoma, ejection fraction 40%-45% by cath 03/2015. By echo, ejection fraction 35%. Most recent MUGA scan 04/13/2016, 55%. Last MUGA prio r to that 04/11/2015 was 56%. Edema of the leg, admitted with cellulitis of lower extremity. RECOMMENDATION: Continue antibiotic, continue Lasix, ambulate, follow up on thoracentesis culture. Continue Coreg, continue losartan, continue Eliquis for deep venous thrombosis right brachial vein. We will follow with you. Continue digoxin, Lasix daily. We will change to p.o. from tomorrow. Thank you, Dr. Roman, for providing us the opportunity in taking care of the patient. Mohammad Ernesto MD cc: [id number] TT: 06/24/2016 10:15:16 Confirmation # [id number] Dictation # [id number] en
[2016-06-24] MEDS: Levothyroxine 125 MCG TAB PO SCH (10:16)
[2016-06-24] MEDS: Potassium Chloride 20 mEq ER Tab PO SCH (10:19)
[2016-06-24] MEDS: Insulin Detemir 100 units/ml Vial (Levemir) SC SCH ×2 (10:27→21:48)
--- NOTE | 2016-06-24 12:19 | PN ---
DATE: 06/23/2016 The patient was comfortable, less short of breath. Currently on IV meropenem. She has no chest pain , no short of breath. Leg edema is improving. PHYSICAL EXAMINATION: VITAL SIGNS: Temperature 98.6, heart rate 98, blood pressure 102/69, respirations 20, saturation 95% on nasal cannula. HEAD AND NECK: Normal. No JVD, no thyromegaly. CHEST: Few basilar rales. Diminished breath sounds. CARDIAC: First sound, second sound normal. ABDOMEN: Obese, nontender. EXTREMITIES: Mild edema, better. NEUROLOGIC: Normal. LABORATORY DATA: White count 11.9, hemoglobin 11.6, hematocrit 35.2, platelets 386. Chemistry noted for sodium 131, potassium 3.4, chloride 87, bicarb 35, BUN 14, creatinine 0.6, blood sugar 147. Usha er enzymes slightly elevated, AST 49, alkaline phos 146, ALT is normal. IMPRESSION AND PLAN: 1. Acute congestive heart failure, acute systolic on top of chronic. Continue Lasix. 2. Bilateral pneumonia. The patient seen by ID and pulmonology consult. Currently on IV antibiotic s and will follow up with the ID consult. Probably the patient is stable. Will follow up on antibio tic regimens, I see doxycycline will be 100 b.i.d. Continue inhaled bronchodilators. Continue Lasix . 3. Chronic obstructive pulmonary, hypothyroidism, ischemic cardiomyopathy. Continue current medicat ions, probably the patient seems better, stable. Will probably discharge the patient soon home. Richardson Roman MD cc: [id number] TT: 06/24/2016 12:18:50 Confirmation # [id number] Dictation # [id number] cn
--- NOTE | 2016-06-24 12:57 | PN ---
DATE: 06/24/2016 Seen and examined at the bedside earlier today. Denies any more symptoms of nausea, vomiting or abdo srikanth pain. She is tolerating oral intake and had a bowel movement yesterday that was soft and forme d, no blood. Denies any shortness of breath or chest pain. VITAL SIGNS: Temperature is 97.2, blood pressure is 112/79, her pulse is 112, respirations 20, 94% o n room air. Urine culture was done and it looks like it is contaminated. PHYSICAL EXAMINATION: HEENT: Sclerae anicteric. NECK: Supple. CARDIAC: S1, S2. LUNG SOUNDS: With decreased breath sounds, minimal rales, no wheezing. ABDOMEN: With bowel sounds, softly obese, but nontender. EXTREMITIES: Positive bilateral edema, but it is improving. ASSESSMENT: This patient with acute congestive heart failure. Also, bilateral pneumonia and pleural effusion, status post thoracentesis. She was having nausea, vomiting, and abdominal pain, may be re lated to the gastroparesis. The patient did have history of also noted to have elevated liver functi on tests, which are slowly improving. This could be multifactorial, may be related to medication ind uced or hepatic congestion. We will continue to monitor. The patient did have history of a laparosc opic cholecystectomy with intraoperative cholangiography, which was negative for any stones. She is on Lasix. She is also on doxycycline, on potassium replacements and Eliquis. We will monitor electr olytes and liver function tests. The patient was seen and case discussed with Dr. Quigley. Faye ARECHIGA cc: [id number] TT: 06/24/2016 12:56:07 Confirmation # [id number] Dictation # [id number] en
[2016-06-24] MEDS: Digoxin 250 mcg (0.25 mg) Tab PO SCH (13:34)
--- NOTE | 2016-06-24 13:44 | CP.PCM.PN ---
Subjective - Date & Time of Evaluation Date of Evaluation: 06/24/16 Time of Evaluation: 11:25 - Subjective Subjective: Comfortable, breathing better, no fevers, no cough, no chest pain, decreased swelling of her legs. Objective - Vital Signs/Intake and Output Vital Signs (last 24 hours): Temp Pulse Resp BP Pulse Ox 97.2 F L 112 H 20 127/79 94 L 06/24/16 07:58 06/24/16 07:58 06/24/16 07:58 06/24/16 07:58 06/24/16 07:58 Intake and Output: 06/24/16 06/24/16 06:59 18:59 Intake Total 1080 Balance 1080 - Medications Medications: Current Medications Apixaban (Eliquis) 5 mg PO Q12 [facility] PRN Reason: Protocol Last Admin: 06/23/16 21:27 Dose: 5 mg Carvedilol (Coreg) 3.125 mg PO BID [facility] Last Admin: 06/23/16 17:12 Dose: Not Given Digoxin (Lanoxin) 0.25 mg PO 1400 [facility] Last Admin: 06/23/16 14:28 Dose: 0.25 mg Doxycycline Hyclate (Doryx) 100 mg PO Q12 [facility] PRN Reason: Protocol Furosemide (Lasix) 40 mg IV DAILY [facility] Stop: 06/24/16 23:59 Last Admin: 06/23/16 10:33 Dose: 40 mg Furosemide (Lasix) 40 mg PO DAILY [facility] Insulin Detemir (Levemir) 15 unit SC Q12 [facility] Last Admin: 06/23/16 21:28 Dose: 15 unit Insulin Human Regular (Humulin R High) 0 units SC ACHS [facility] PRN Reason: Protocol Last Admin: 06/24/16 08:30 Dose: Not Given Levalbuterol HCl (Xopenex) 0.63 mg IH TIDRESP [facility] Last Admin: 06/24/16 08:53 Dose: 0.63 mg Levothyroxine Sodium (Synthroid) 125 mcg PO ACB [facility] Last Admin: 06/23/16 08:30 Dose: 125 mcg Losartan Potassium (Cozaar) 12.5 mg PO DAILY [facility] Last Admin: 06/23/16 10:31 Dose: 12.5 mg Metformin HCl (Glucophage) 1,000 mg PO BRKDIN [facility] Last Admin: 06/23/16 17:12 Dose: Not Given Ondansetron HCl (Zofran Inj) 4 mg IVP [facility]6H [facility] PRN Reason: Nausea/Vomiting Oxycodone HCl (Oxycodone Immediate Release Tab) 5 mg PO BID [facility] PRN Reason: Pain, severe (8-10) Last Admin: 06/21/16 21:04 Dose: 5 mg Potassium Chloride (K-Dur 20 Meq Er Tab) 20 meq PO DAILY [facility] Last Admin: 06/23/16 10:34 Dose: 20 meq Propranolol HCl (Inderal) 10 mg PO TID [facility] Last Admin: 06/23/16 17:12 Dose: Not Given - Labs Labs: 06/23/16 06:05 06/23/16 06:05 PT 13.4 Seconds (9.9-11.8) H 06/19/16 10:19 INR 1.24 (0.93-1.08) H 06/19/16 10:19 APTT 27.1 Seconds (23.7-30.8) 06/19/16 10:19 - Constitutional Appears: Non-toxic, No Acute Distress - Head Exam Head Exam: NORMAL INSPECTION - Neck Exam Neck Exam: absent: Lymphadenopathy, Meningismus - Respiratory Exam Respiratory Exam: Decreased Breath Sounds - Cardiovascular Exam Cardiovascular Exam: +S1, +S2 - GI/Abdominal Exam GI & Abdominal Exam: Soft. absent: Tenderness Assessment and Plan - Assessment and Plan (Free Text) Plan: Assessment Systemic Inflammatory Response Syndrome (leukocytosis, tachycardia) R/O sepsis secondary to bilateral healthcare-associated pneumonia in this patient with acute decompensated heart failure with bilateral pleural effusions S/P thoracentesis on the right side, clinically improving - probably atypical pneumonia S/P acute cholecystitis, S/P laparoscopic cholecystectomy CAD with chronic CHF DM HTN history of migraines bipolar disorder Plan will d/c cefepime and continue Doxycycline (day 3); blood cx have been negative ; PCT is only 0.07; reviewed CXR which revealed the bilateral infiltrates - will targert 4-7 days of antibiotics Will continue to monitor clinically
--- NOTE | 2016-06-24 20:12 | PN ---
DATE: 06/24/2016 REFERRING PHYSICIAN: Dr. Roman. SUBJECTIVE: In no acute distress. No headache, no rhinitis, no nausea, no vomiting, no abdominal di scomfort, trace leg swelling. OBJECTIVE: GENERAL: In no acute distress. VITAL SIGNS: Temperature is 98, heart rate is 98, respiratory rate is 20, blood pressure 112/73, pul se ox 96% on room air. HEENT: Moist mucous membranes. Crowded airway. Mallampati score is 4. NECK: Supple. No JVD. LUNGS: Has decreased breath sounds at the bases. HEART: S1, S2. ABDOMEN: Soft, nontender. No organomegaly. EXTREMITIES: There is trace edema. NEUROLOGIC: Awake, alert, follows simple commands. MEDICATIONS: She is on Coreg 3.125 mg twice a day, Cozaar 12.5 mg daily, doxycycline 100 mg twice a day, Eliquis 5 mg twice a day, metformin 1000 mg twice a day, insulin coverage, Inderal 10 mg 3 times a day, potassium 20 mEq daily, digoxin 0.25 mg daily, Lasix 40 mg daily, Levemir 15 units subQ q.12 hours, oxycodone immediate release 5 mg twice a day p.r.n., Synthroid 125 mcg daily, Xopenex 3 times a day, Zofran on a p.r.n. basis. LABORATORY DATA: Blood sugar is 290. IMPRESSION AND PLAN: Chronic obstructive lung disease, cardiomyopathy with recurrent pleural effusio n and heart failure, may have sleep apnea syndrome, refused to use CPAP; diabetes, bipolar disorder, history of cholecystectomy, history of lymphoma, recurrent abdominal discomfort and nausea. Pulmonar y point of view, she is very well. Continue supplemental oxygen. Keep head elevated at 45 degrees. Avoid sedatives. Discourage excess of free water intake. GI and cardiology followup. Thank you and will follow with you. Mau More MD cc: [id number] TT: 06/24/2016 20:12:29 Confirmation # [id number] Dictation # [id number] dn
--- NOTE | 2016-06-25 03:31 | PN ---
DATE: 06/24/2016 ADDENDUM: This is an addendum to the GI progress report dictated by Faye Doherty. The patient was seen and evaluated today. The patient is tolerating the diet. No episodes of vomiting. Bowel movements normal. No complaints of abdominal pain. On examination, abdomen is soft. There is no tenderness. IMPRESSION: The patient was admitted with decompensated CHF, sp thoracentesis, status post cholecystectomy, intraoperative cholangiogram normal. The likelihood of the increased LFT is probably secondary to the hepatic congestion plus drug-induced. Followup of the LFTs. We will continue to closely follow up her care and suggest further management based on the clinical course. Renuka Quigley MD cc: [id number] TT: 06/25/2016 03:30:43 Confirmation # [id number] Dictation # [id number] [facility]
[2016-06-25] MEDS: Levalbuterol 0.63 MG/3 ML Inhal Soln UD IH SCH ×3 (07:45→20:25)
[2016-06-25] MEDS: Insulin Reg-HIGH-Coverage SC SCH ×4 (08:00→22:45)
[2016-06-25] MEDS: Levothyroxine 125 MCG TAB PO SCH (10:14)
[2016-06-25] MEDS: Potassium Chloride 20 mEq ER Tab PO SCH (10:14)
[2016-06-25] MEDS: Insulin Detemir 100 units/ml Vial (Levemir) SC SCH ×2 (10:15→21:57)
[2016-06-25] MEDS: oxyCODONE 5 mg Immediate Release Tab PO PRN (11:32)
--- NOTE | 2016-06-25 12:04 | PN ---
DATE: 06/25/2016 The patient is in bed in no acute distress, nontoxic. PHYSICAL EXAMINATION: VITAL SIGNS: Temperature is 97, blood pressure is 96/60, respiratory rate of 20, heart rate of 99. HEENT: Unremarkable. NECK: Supple. LUNGS: Have decreased breath sounds. HEART: Normal S1, S2. ABDOMEN: Soft. LABORATORY EXAMINATION: Reveals a white count 11,900, hemoglobin 11 and platelets of 386. Chemistri es reveal a 0.6, creatinine. Urinalysis is noted. Serology is negative. Microbiology is noted. Re view of the orders reveals the patient to be on p.o. doxycycline. ASSESSMENT AND PLAN: A 51-year-old female with systemic inflammatory response syndrome secondary to sepsis secondary to healthcare-associated pneumonia with acute decompensated congestive heart failure and bilateral effusions and thoracentesis in a patient with coronary artery disease and chronic uriah estive heart failure, status post laparoscopic cholecystectomy and currently on day #4 of doxycycline with a procalcitonin of 0.07. We will complete 4-7 days. Yehuda Valentino MD cc: [id number] TT: 06/25/2016 12:03:52 Confirmation # [id number] Dictation # [id number] tn
[2016-06-25] MEDS: Digoxin 250 mcg (0.25 mg) Tab PO SCH (13:40)
--- NOTE | 2016-06-25 19:44 | PN ---
DATE: 06/25/2016 REFERRING PHYSICIAN: Dr. Roman. SUBJECTIVE: She is out of bed to chair, having lunch. Night was unremarkable. She feels better. N o headaches, no rhinitis, no cough. No nausea, no vomiting, no diarrhea. Decreased leg swelling. OBJECTIVE: GENERAL: In no acute distress. VITAL SIGNS: Temperature is 98, heart rate is 88, respiratory rate is 20, blood pressure 102/62, pul se ox 97% on room air. HEENT: Moist mucous membranes. Small oral cavity. LUNGS: Has a fair airflow with decreased breath sounds at the bases. HEART: S1, S2. ABDOMEN: Soft, nontender. No organomegaly. EXTREMITIES: Has diffuse edema. NEUROLOGIC: Awake, alert, follows simple commands. MEDICATIONS: She is on Coreg 3.125 mg twice a day, Cozaar 25 mg daily, doxycycline 100 mg twice a da y, Eliquis 5 mg twice a day, metformin 1000 mg p.o. twice a day, insulin coverage, Inderal 10 mg 3 ti mes a day, potassium 20 mEq daily, digoxin 0.25 mg daily, Lasix is at 40 mg daily, Levemir 15 units s ubQ twice a day, oxycodone 5 mg twice a day p.r.n., Synthroid 125 mcg daily, Xopenex 0.63 three times a day, Zofran on a p.r.n. basis. LABORATORY DATA: Shows blood sugar today 296. Microbiology reviewed. No new laboratory data is carlitos ilable. IMPRESSION AND PLAN: Chronic obstructive lung disease, cardiomyopathy with recurrent pleural effusio n and heart failure, may have a sleep apnea syndrome, refused CPAP; bipolar disorder, history of chol ecystectomy, history of lymphoma. From pulmonary point of view, she is doing okay. Need to control her p.o. fluid intake. May restrict her to 1 liter of fluid over 24 hours. Need to speak to dietiti an to adjust her meals accordingly. Fall precautions. Sleep apnea precautions. Careful with sedati on. Thank you and will follow with you. Mau More MD cc: [id number] TT: 06/25/2016 19:43:50 Confirmation # [id number] Dictation # [id number] dn
[2016-06-25] MEDS ORDERED: oxyCODONE 5 mg Immediate Release Tab PO ONE (22:35)
[2016-06-26 07:37] LABS: ALKALINE PHOSPHATASE 145 U/L (38-133); ALT/SGPT 51 U/L (7-56); AST/SGOT 59 U/L (15-39); BILIRUBIN,TOTAL 0.6 mg/dL (0.2-1.3); BLOOD UREA NITROGEN 16 mg/dL (7-21); CALCIUM 9.6 mg/dL (8.4-10.5); CARBON DIOXIDE 30 mmol/L (21-33); CHLORIDE 91 mmol/L (95-110); GFR AFRICAN-AMERICAN > 60; GLUCOSE,RANDOM 108 mg/dL (70-110); POTASSIUM 4.2 mmol/L (3.6-5.0); SODIUM 130 mmol/L (132-148); TOTAL PROTEIN 7.1 g/dL (5.8-8.3)
[2016-06-26] MEDS: Levalbuterol 0.63 MG/3 ML Inhal Soln UD IH SCH ×2 (07:49→13:24)
[2016-06-26] MEDS: Insulin Reg-HIGH-Coverage SC SCH ×2 (08:00→12:00)
[2016-06-26 08:05] VITALS: PULSE 94; TEMP 98; O2SAT 96
[2016-06-26] MEDS: Potassium Chloride 20 mEq ER Tab PO SCH (09:57)
[2016-06-26] MEDS: Levothyroxine 125 MCG TAB PO SCH (09:58)
[2016-06-26] MEDS: Insulin Detemir 100 units/ml Vial (Levemir) SC SCH (10:00)
[2016-06-26 10:01] VITALS: BP 110/58
[2016-06-26] MEDS: Digoxin 250 mcg (0.25 mg) Tab PO SCH (13:19)
[2016-06-26 13:22] VITALS: PULSE 93
--- NOTE | 2016-06-26 13:28 | PN ---
DATE: 06/26/2016 The patient is in bed in no acute distress, nontoxic. PHYSICAL EXAMINATION: VITAL SIGNS: Temperature is 98, blood pressure is 120/70, respiratory rate 16. HEENT: Unremarkable. NECK: Supple. LUNGS: Have decreased breath sounds. HEART: Normal S1, S2. ABDOMEN: Soft, nontender. No rebound, no guarding. LABORATORIES: Reveals the patient has a white count of 11,900, hemoglobin 11. Chemistries are noted . ASSESSMENT AND PLAN: A 51-year-old female with systemic inflammatory response syndrome secondary to sepsis secondary to healthcare-associated pneumonia, acute decompensated congestive heart failure, bi lateral effusion and thoracentesis in a patient with coronary artery disease, chronic congestive hear t failure, status post laparoscopic cholecystectomy, currently on day #5 of doxycycline with normal p rocalcitonin. Would complete a short course of that. Yehuda Valentino MD cc: [id number] TT: 06/26/2016 13:27:56 Confirmation # [id number] Dictation # [id number] joes
--- NOTE | 2016-06-26 16:38 | PN ---
DATE: 06/26/2016 REFERRING PHYSICIAN: Dr. Roman SUBJECTIVE: She is out of bed to chair. Night was unremarkable, feels better. No headache, no rhin itis, no nausea, no vomiting, no diarrhea. Decreased leg swelling. OBJECTIVE: GENERAL: No acute distress. VITAL SIGNS: Temp is 98, heart rate is 94, respiratory rate is 20, blood pressure 110/58, pulse ox 9 6% on room air. HEENT: Moist mucous membrane. Crowded airway. NECK: Supple. No JVD. LUNGS: Have a fair airflow with few crackles at the bases. HEART: S1 and S2. ABDOMEN: Soft, nontender. No organomegaly. EXTREMITIES: Little trace edema. NEUROLOGIC: Awake, alert, follows simple command. MEDICATIONS: Reviewed, noted. No new change in medication since yesterday. LABORATORY DATA: Reviewed and shows sodium 130, potassium 4.2, chloride 91, bicarbonate 30, BUN 16, creatinine 0.6, glucose is 108, calcium is 9.6, AST 59, ALT 51, alk phos is 145, albumin is 3.6. IMPRESSION AND PLAN: Chronic obstructive lung disease, cardiomyopathy with recurrent pleural effusio n, heart failure, may have sleep apnea syndrome, bipolar disorder, history of cholecystectomy, histor y of lymphoma. Pulmonary point of view, she is doing okay. I had a long discussion with the patient , advised her and counseled her about fluids, salt intake in relation to the heart failure. She expr essed understanding, will cut down salt and fluid. Refused to use CPAP. Understands risk/benefit ra catalina. Fall precautions. We will follow with cardiology and medicine as outpatient. Thank you and we will follow with you. Mau More MD cc: [id number] TT: 06/26/2016 16:37:25 Confirmation # [id number] Dictation # [id number] en
--- NOTE | 2016-06-27 08:13 | PN ---
DATE: 06/25/2016 The patient is stable clinically, no distress, walking around, on IV Lasix. PHYSICAL EXAMINATION: VITAL SIGNS: Temperature 97.7, heart rate 99, blood pressure 102/62, respirations 20, saturation 97% . HEAD AND NECK: Normal. No JVD, no thyromegaly. CHEST: Clear. CARDIAC: First sound, second sound normal. ABDOMEN: Obese, nontender. EXTREMITIES: Edema, improved, mild. NEUROLOGIC: Normal. IMPRESSION: 1. Acute systolic heart failure on top of chronic. Continue IV Lasix. 2. Nonischemic cardiomyopathy, probably combination of radiation and chemotherapy related. Continue Cozaar half a tablet daily. Continue Coreg. Continue digoxin. 3. Hypothyroidism, diabetes type 2. Continue levothyroxine. Continue insulin coverage, Levemir. C ontinue current treatment. 4. The patient also has bilateral infiltrate. She seems doing well on p.o. doxycycline. Continue c urrent treatment. Could be most likely atelectasis more than infiltrates. She clinically stable, af ebrile. Richardson Roman MD cc: [phone] TT: 06/27/2016 08:13:10 Confirmation # [id number] Dictation # [id number] en
--- NOTE | 2016-06-27 08:15 | PN ---
DATE: 06/24/2016 The patient seems stable. Currently on IV Lasix. She is stable. She has no distress. Leg edema is improved. PHYSICAL EXAMINATION: VITAL SIGNS: Temperature 97.7, heart rate 99, blood pressure 112/73, respiratory rate 20, saturation 97% on room air. HEAD AND NECK: Normal. No JVD, no thyromegaly. CHEST: Clear, good air entry. CARDIAC: First and second sounds are normal. ABDOMEN: Soft, obese, nontender. EXTREMITIES: Mild edema. NEUROLOGIC: Normal. IMPRESSION AND PLAN: 1. Acute systolic heart failure on top of chronic. Continue IV Lasix. 2. Nonischemic cardiomyopathy. Continue current management. The patient is getting ARETHA inhibitors, getting beta melissa, and getting digoxin. Continue current treatment. 3. Diabetes. Continue Levemir twice a day plus insulin coverage. 4. Bilateral pleural effusion, status post paracentesis, resolved. She seems to be doing better aft er that. Continue current treatment. 5. Schizoaffective disorder. Seems stable. PLAN: Continue current management. Follow up clinically. Richardson Roman MD cc: 223 TT: 06/27/2016 08:14:45 Confirmation # [id number] Dictation # [id number] mn
--- NOTE | 2016-06-27 08:19 | PN ---
DATE: 06/25/2016 ADDENDUM This patient was seen and evaluated earlier. Denies any abdominal pain. No nausea or vomiting. Tolerating the diet. On examination, temperature is 97.7, blood pressure is 102/62, pulse is 88. HENT: Atraumatic. Anicteric. NECK: Supple. HEART: S1, S2 heard. LUNGS: Bilateral air entry present, slightly reduced in the base. ABDOMEN: Soft. There is no tenderness. EXTREMITIES: Mild bilateral edema present. NEUROLOGICALLY: Alert, oriented. Moves all the extremities. LABORATORY DATA: No recent labs. IMPRESSION: This 51-year-old patient admitted with shortness of breath, decompensated congestive heart failure, chronic obstructive pulmonary disease, cardiomyopathy, pleural effusion status post thoracentesis. Sleep apnea, noncompliant on IV antibiotic, doxycycline for pneumonia. The patient is also on Eliquis. The patient is status post cholecystectomy. Intraoperative cholangiogram was normal. The LFTs were thought to be secondary to the hepatic congestion plus drug induced, but overall has been improving. Thank you very much for allowing me to participate in the care of the patient. Recommend to follow up the LFTs. Thank you very much for allowing me to participate in the care of the patient. Renuka Quigley MD cc: [phone] TT: 06/25/2016 20:21:51 Confirmation # [id number] Dictation # [id number] jn MTDD
--- NOTE | 2016-06-27 14:05 | DS ---
The patient clinically stable, doing well. Her friend now is available. She can take her home. She has no new complaints. PHYSICAL EXAMINATION: VITAL SIGNS: Temperature 98, heart rate 94, blood pressure 100/67, respirations 20, saturation 96% o n room air. HEAD AND NECK: Normal. No JVD, no thyromegaly. CHEST: Clear. CARDIAC: First sound, second sound normal. ABDOMEN: Obese, nontender. EXTREMITIES: Mild edema. NEUROLOGIC: Normal. The patient had labs and workup. She had bilateral paracentesis, 1600 mL was out and it was negative for any infections. The patient had blood cultures also x 2 were negative. Urine culture was negat magdaleno and seems doing well. Pleural fluid still pathology not yet. The patient was given IV Lasix, tr eated well and diuresed well and leg edema has improved. DISCHARGE DIAGNOSES: 1. Acute systolic heart failure. 2. Bilateral leg edema. 3. Bilateral pleural effusions. 4. Diabetes type 2. 5. Hypothyroidism. 6. History of deep venous thrombosis. Continue Eliquis. DISCHARGE MEDICATIONS: I went over with the patient because of her underlying psych problem and she is discharged on Ventolin 2 puffs q.i.d., Breo Ellipta 25/100 one puff once a day. Also she got levo thyroxine 125 mcg once a day, Lasix 40 once a day, K-Dur 20 once a day, Eliquis 5 mg b.i.d., doxycycl ine was given for 1 week to drink it with large glass of water. The patient also given Lantus 15 uni ts twice a day, glipizide 2.5 mg twice a day, Januvia 100 once a day, losartan was given half a table t once a day, Inderal 10 mg t.i.d. Also, patient was given blood sugar t.i.d., lancets and test stri ps. The patient advised to have available orange juice for in case hypoglycemia. The patient understands how to check her sugar and how to react. We will discharge the patient home. Follow up in the offi ce within 1 week. Richardson Roman MD cc: [phone] TT: 06/27/2016 14:05:10 [facility] # [id number] en
== END 2016-06-26 15:27 | disposition home or self-care (01) | DRG 544 ==
LOC: ED 09:40 → ERH 15:02 → 2RNO 17:05 → UNDODISIN 06-21 16:50 → 5RSO 06-23 15:53
PROVIDERS: ADMIT Internal Medicine; ATTEND Internal Medicine
PROC: 0W993ZZ Drainage of Right Pleural Cavity, Percutaneous Approach (ICD-10-PCS; principal; 2016-06-20 16:00)
DX: I50.23 Acute on chronic systolic (congestive) heart failure (principal); J18.9 Pneumonia, unspecified organism; A41.9 Sepsis, unspecified organism; J91.8 Pleural effusion in other conditions classified elsewhere; E11.65 Type 2 diabetes mellitus with hyperglycemia; E11.43 Type 2 diabetes mellitus with diabetic autonomic (poly)neuropathy; J44.0 Chronic obstructive pulmonary disease with (acute) lower respiratory infection; E87.1 Hypo-osmolality and hyponatremia; L03.115 Cellulitis of right lower limb; I08.1 Rheumatic disorders of both mitral and tricuspid valves; E87.6 Hypokalemia; F25.9 Schizoaffective disorder, unspecified; I42.7 Cardiomyopathy due to drug and external agent; T45.1X5A Adverse effect of antineoplastic and immunosuppressive drugs, initial encounter; K31.84 Gastroparesis; E03.9 Hypothyroidism, unspecified; E78.00 Pure hypercholesterolemia, unspecified; F31.9 Bipolar disorder, unspecified; I25.10 Atherosclerotic heart disease of native coronary artery without angina pectoris; R19.7 Diarrhea, unspecified; G47.33 Obstructive sleep apnea (adult) (pediatric); G43.909 Migraine, unspecified, not intractable, without status migrainosus; K76.1 Chronic passive congestion of liver; Y95 Nosocomial condition; Z87.891 Personal history of nicotine dependence; Z79.84 Long term (current) use of oral hypoglycemic drugs; Z86.718 Personal history of other venous thrombosis and embolism; Z79.02 Long term (current) use of antithrombotics/antiplatelets; Z85.72 Personal history of non-Hodgkin lymphomas

== ENCOUNTER 2016-08-05 16:07 | Inpatient (IN) | payer MEDICAID ==
--- NOTE | 2016-08-05 17:11 | ED PDOC ---
Arrival/HPI - General Chief Complaint: ENT Problem Time Seen by Provider: 08/05/16 17:01 Historian: Patient - History of Present Illness Narrative History of Present Illness (Text): 08/05/16 19:11 51-year-old female with a history of CHF diabetes hypertension thyroid issues presents today with worsening cough sore throat left ear pain subjective fevers at home and difficulty swallowing. Patient states she is having difficulty swallowing solids. She states the food gets stuck. pt states she is able to swallow liquids. pt c/o left ear pain greater than right, describes pain as achy. denies decreased hearing. no vomiting/diarrhea. no abdominal pain. pt has not taken any medications for pain at home. pt c/o productive cough. Past Medical History - Provider Review Nursing Documentation Reviewed: Yes - Travel History Have you recently traveled outside [place] w/in the past 3 mons?: Yes - Past History Past History: No Previous - Infectious Disease Hx of Infectious Diseases: None - Tetanus Immunization Tetanus Immunization: Unknown - Cardiac Hx Cardiac Disorders: Yes Hx Congestive Heart Failure: Yes Hx Hypertension: Yes - Pulmonary Hx Respiratory Disorders: Yes Hx Chronic Obstructive Pulmonary Disease (COPD): Yes - Neurological Hx Neurological Disorder: No - HEENT Hx HEENT Disorder: No Hx Blind: No Hx Cataracts: No Hx Deafness: No Hx Difficulty Chewing: No Hx Epistaxis: No Hx Glaucoma: No Hx Macular Degeneration: No - Renal Hx Renal Disorder: No - Endocrine/Metabolic Hx Endocrine Disorders: Yes Hx Diabetes Mellitus Type 1: Yes (insulin dependent) Hx Diabetes Mellitus Type 2: Yes Hx Hypothyroidism: Yes - Hematological/Oncological Hx Blood Disorders: No - Integumentary Hx Dermatological Disorder: No Hx Basal Cell Carcinoma: No Hx Eczema: No Hx Melanoma: No Hx Psoriasis: No Hx Squamous Cell Carcinoma: No - Musculoskeletal/Rheumatological Hx Musculoskeletal Disorders: No - Gastrointestinal Hx Gastrointestinal Disorders: No - Genitourinary/Gynecological Hx Genitourinary Disorders: No - Psychiatric Hx Psychophysiologic Disorder: No Hx Substance Use: No (H/O OF COCAINE MARIJUANA USE) - Past Surgical History Past Surgical History: No Previous - Surgical History Hx Appendectomy: No Hx Cholecystectomy: No Hx Coronary Stent: No Other/Comment: port-a-cath placement - Anesthesia Hx Anesthesia Reactions: No Hx Malignant Hyperthermia: No - Suicidal Assessment Feels Threatened In Home Enviroment: No Family/Social History - Physician Review Nursing Documentation Reviewed: Yes Family/Social History: Unknown Family HX Smoking Status: Former Smoker Hx Alcohol Use: No (H/O) Hx Substance Use: No (H/O OF COCAINE MARIJUANA USE) Substance used: cocaine Hx Substance Use Treatment: Yes (NARCOTICS ANONYMOUS) Allergies/Home Meds Allergies/Adverse Reactions: Allergies No Known Allergies Allergy (Verified 08/05/16 16:29) Home Medications: Home Meds Medication Instructions Recorded Confirmed Furosemide [Lasix] 80 mg PO DAILY 08/05/16 08/05/16 MetFORMIN [glucOPHAGE] 500 mg PO BID 08/05/16 08/05/16 Review of Systems - Review of Systems Constitutional: Fevers Eyes: absent: Vision Changes ENT: Sore Throat, Sinus Congestion, Other (bilateral ear pain left greater than right) Respiratory: Cough. absent: Wheezing Cardiovascular: absent: Chest Pain, Palpitations Gastrointestinal: absent: Abdominal Pain, Diarrhea, Nausea, Vomiting Genitourinary Female: absent: Dysuria, Frequency, Hematuria Musculoskeletal: absent: Arthralgias, Back Pain, Neck Pain Skin: absent: Rash, Pruritis Neurological: absent: Headache, Dizziness Psychiatric: absent: Anxiety, Depression Physical Exam Vital Signs Reviewed: Yes Vital Signs Temp Pulse Resp BP Pulse Ox 08/05/16 20:43 111 H 16 126/66 95 08/05/16 18:34 98.0 F 110 H 18 101/62 92 L 08/05/16 17:18 98.2 F 102 H 16 98 08/05/16 16:27 98 F 102 H 20 112/73 98 Temperature: Afebrile Blood Pressure: Normal Pulse: Tachycardic Respiratory Rate: Normal Appearance: Positive for: Well-Appearing, Non-Toxic, Comfortable Pain Distress: None Mental Status: Positive for: Alert and Oriented X 3 - Systems Exam Head: Present: Atraumatic Conjunctiva: Present: Normal Ears: Present: NORMAL TM (right TM normal), Other (left tm obstructed by cerumen ; no mastoid tenderness). No: Erythema Mouth: Present: Moist Mucous Membranes Pharnyx: Present: ERYTHEMA. No: EXUDATE, TONSILS ENLARGED, Peritonsilar Swelling, Uvular Deviation, Soft Palate/Uvular Edema Nose (External): Present: Atraumatic Nose (Internal): Present: Normal Inspection Neck: Present: Normal Range of Motion, Trachea Midline. No: Meningeal Signs, Lymphadenopathy Respiratory/Chest: Present: Decreased Breath Sounds, Rales, Rhonchi. No: Clear to Auscultation, Respiratory Distress, Accessory Muscle Use, Tachypneic Cardiovascular: Present: Tachycardic Abdomen: Present: Normal Bowel Sounds. No: Tenderness, Distention, Peritoneal Signs Neurological: Present: GCS=15 Skin: Present: Warm, Dry, Normal Color. No: Rashes Psychiatric: Present: Alert, Oriented x 3 Medical Decision Making ED Course and Treatment: 08/05/16 19:15 51yr old female with DM, CHF, with cough, sore throat, fever, difficulty swallowing. pt with progressively worsening cough. cbc; wnl cmp: glucose; 468 blood cultures pending. pt with hx of prior smoking, drinking; will do ct of neck r/o mass/fb ct neck soft tissue;FINDINGS: NASOPHARYNX: Unremarkable. SUPRAHYOID NECK: Unremarkable oropharynx, oral cavity, parapharyngeal space and retropharyngeal space. INFRAHYOID NECK: Unremarkable larynx, hypopharynx, and supraglottic space. Vocal cords intact. MASS: None. GLANDS: Parotid and submandibular glands unremarkable. Normal size thyroid gland, without nodule. LYMPH NODES: Mildly enlarged level IIa and IIb lymph nodes bilaterally the preponderance 1 cm or less. These are asymmetric more prominent and larger right compared to left. CERVICAL SPINE: No fracture or focal lesion. OTHER FINDINGS: Incompletely visualized bilateral pleural effusions. Small mediastinal lymph nodes, small axillary lymph nodes bilaterally. Asymmetry of the thyroid suggesting prior resection of the left thyroid gland. Small nodular densities right thyroid lobe. Suggest elective thyroid ultrasound for further evaluation. IMPRESSION: No visualized/radiopaque foreign body Lymphadenopathy in the neck uncertain etiology and significance. Additional benign and/or incidental findings described above. ct chest; FINDINGS: LUNGS: Airspace consolidation seen at the right middle lobe which may represent a pneumonia or neoplasm or less likely atelectasis. MEDIASTINUM: Unremarkable thoracic aorta. No aneurysm. The heart is mildly to moderately enlarged. Main pulmonary artery is mildly enlarged. Stable prominent mediastinal lymph nodes. PLEURA: Moderate-sized bilateral pleural effusions. BONES: No fracture. No destructive lesion. UPPER ABDOMEN: No evidence of acute pathology. OTHER FINDINGS: Again seen is mild enlargement of the right thyroid lobe. The left thyroid lobe is not visualized. IMPRESSION: Moderate bilateral pleural effusions. Airspace consolidation at the right middle lobe may represent pneumonia or less likely atelectasis or neoplasm. No evidence of acute pathology in the mediastinum. 08/05/16 19:17 pt slighty tachycardic, hypoxic at 92-94%. ekg; sinus tachycardia at [address] elevations blood cultures pending. diabetic with elevated BS; will give insulin. zosyn, vanco given iv as patient with prior recent hospitalization lasix 40iv ordered. case discussed with dr. valdez; will given IV abx, admit observational status, control glucose; will do pulm consult tele observational status for pneumonia impression; pneumonia, dysphagia, hyperglycemia admit observational status to tele. - Lab Interpretations Lab Results: 08/05/16 17:31 08/05/16 17:31 Lab Results 08/05/16 17:31: WBC 6.6 D, RBC 5.06, Hgb 12.7, Hct 37.7, MCV 74.5 L, MCH 25.1, MCHC 33.7, RDW 17.4 H, Plt Count 291, MPV 11.4 H, Gran % 57.6, Lymph % (Auto) 35.7 H, [place] % (Auto) 5.9, Eos % (Auto) 0.2 L, Baso % (Auto) 0.6, Gran # 3.83, Lymph # 2.4, [place] # 0.4, Eos # 0.0, Baso # 0.04 08/05/16 17:31: Sodium 129 L, Potassium 4.2, Chloride 88 L, Carbon Dioxide 31, Anion Gap 14, BUN 12, Creatinine 0.5, Est GFR ( Amer) > 60, Est GFR (Non- Af Amer) > 60, Random Glucose 468 H* D, Calcium 9.1, Total Bilirubin 0.8, AST 46 H, ALT 50, Alkaline Phosphatase 116, Total Protein 7.3, Albumin 3.5, Globulin 3.8, Albumin/Globulin Ratio 0.9 L - RAD Interpretation Radiology Orders: 08/05/16 17:12 NECK SOFT TISSUE W/O CONTRAST [CT] Stat 08/05/16 17:38 CHEST W/O CONTRAST [CT] Stat - Medication Orders Current Medication Orders: Discontinued Medications Furosemide (Lasix) 40 mg IVP STAT STA Stop: 08/05/16 20:53 Last Admin: 08/05/16 21:00 Dose: 40 mg Vancomycin HCl (Vancomycin 1gm) 1 gm in 250 mls @ 167 mls/hr IVPB STAT STA PRN Reason: Protocol Stop: 08/05/16 20:13 Piperacillin Sod/Tazobactam Sod (Zosyn 3.375 In Ns 100ml) 100 mls @ 200 mls/hr IVPB STAT STA PRN Reason: Protocol Stop: 08/05/16 19:13 Last Admin: 08/05/16 19:34 Dose: 200 mls/hr Insulin Human Regular (Humulin R) 6 units SC STAT STA Stop: 08/05/16 18:46 Last Admin: 08/05/16 19:34 Dose: 6 units Disposition/Present on Arrival - Present on Arrival Any Indicators Present on Arrival: Yes History of DVT/PE: Yes History of Uncontrolled Diabetes: Yes Urinary Catheter: No History of Decub. Ulcer: No History Surgical Site Infection Following: None - Disposition Have Diagnosis and Disposition been Completed?: Yes Diagnosis: Pneumonia, Tachycardia, Hyperglycemia Disposition: HOSPITALIZED Disposition Time: 19:00 Patient Plan: Observation, Telemetry Patient Problems: Current Active Problems Problem Status Onset Hyperglycemia Acute Pneumonia Acute Tachycardia Acute Condition: FAIR
[2016-08-05 17:12] VITALS: BMI 23.8
[2016-08-05 17:38] LABS: ADD MANUAL DIFF? NO
[2016-08-05 18:10] LABS: ALB/GLOB RATIO 0.9 (1.1-1.8); ALKALINE PHOSPHATASE 116 U/L (38-133); ALT/SGPT 50 U/L (7-56); AST/SGOT 46 U/L (15-39); BILIRUBIN,TOTAL 0.8 mg/dL (0.2-1.3); BLOOD UREA NITROGEN 12 mg/dL (7-21); CALCIUM 9.1 mg/dL (8.4-10.5); CARBON DIOXIDE 31 mmol/L (21-33); CHLORIDE 88 mmol/L (98-107); GFR AFRICAN-AMERICAN > 60; POTASSIUM 4.2 mmol/L (3.6-5.0); SODIUM 129 mmol/L (132-148); TOTAL PROTEIN 7.3 g/dL (5.8-8.3)
[2016-08-05 18:13] LABS: BASO # 0.04 K/mm3 (0.0-2.0); BASO % 0.6 % (0.0-3.0); EOS % 0.2 % (1.5-5.0); GRAN # 3.83 (1.4-6.5); GRAN % 57.6 % (50.0-68.0); HEMATOCRIT 37.7 % (36.0-48.0); LYMPH # 2.4 (1.2-3.4); LYMPH % 35.7 % (22.0-35.0); MEAN CELL VOLUME 74.5 fL (80.0-105.0); MEAN CORPUSCULAR HEMOGLOBIN 25.1 pg (25.0-35.0); MEAN CORPUSCULAR HGB CONC 33.7 g/dl (31.0-37.0); MEAN PLATELET VOLUME 11.4 fl (7.0-11.0); MONO # 0.4 (0.1-0.6); MONO % 5.9 % (1.0-6.0); PLATELET COUNT 291 10^3/uL (120.0-450.0); RED CELL DISTRIBUTION WIDTH 17.4 % (11.5-14.5); WHITE BLOOD COUNT 6.6 10^3/ul (4.5-11.0)
--- NOTE | 2016-08-05 18:14 | CT ---
PROCEDURE: CT Chest without contrast HISTORY: dysphagia COMPARISON: Comparison is made to the previous study dated 06/19/2016 TECHNIQUE: Contiguous axial images were obtained through the chest without intravenous contrast enhancement. Sagittal and coronal reconstructions were performed. Radiation dose (DLP): 285.75 mGy-cm. This CT exam was performed using one or more of the following dose reduction techniques: Automated exposure control, adjustment of the mA and/or kV according to patient size, and/or use of iterative reconstruction technique. FINDINGS: LUNGS: Airspace consolidation seen at the right middle lobe which may represent a pneumonia or neoplasm or less likely atelectasis. MEDIASTINUM: Unremarkable thoracic aorta. No aneurysm. The heart is mildly to moderately enlarged. Main pulmonary artery is mildly enlarged. Stable prominent mediastinal lymph nodes. PLEURA: Moderate-sized bilateral pleural effusions. BONES: No fracture. No destructive lesion. UPPER ABDOMEN: No evidence of acute pathology. OTHER FINDINGS: Again seen is mild enlargement of the right thyroid lobe. The left thyroid lobe is not visualized. IMPRESSION: Moderate bilateral pleural effusions. Airspace consolidation at the right middle lobe may represent pneumonia or less likely atelectasis or neoplasm. No evidence of acute pathology in the mediastinum. Cardiomegaly.
--- NOTE | 2016-08-05 18:16 | CT ---
PROCEDURE: CT NECK WITHOUT CONTRAST HISTORY: FEELING OF FOOD GETTING STUCK; DIFFICULTY SWALLOW COMPARISON: None. TECHNIQUE: CT of the neck without intravenous contrast. Coronal and sagittal reformats generated. Radiation dose: DLP 233.59 mGy-cm This CT exam was performed using one or more of the following dose reduction techniques: Automated exposure control, adjustment of the mA and/or kV according to patient size, and/or use of iterative reconstruction technique. FINDINGS: NASOPHARYNX: Unremarkable. SUPRAHYOID NECK: Unremarkable oropharynx, oral cavity, parapharyngeal space and retropharyngeal space. INFRAHYOID NECK: Unremarkable larynx, hypopharynx, and supraglottic space. Vocal cords intact. MASS: None. GLANDS: Parotid and submandibular glands unremarkable. Normal size thyroid gland, without nodule. LYMPH NODES: Mildly enlarged level IIa and IIb lymph nodes bilaterally the preponderance 1 cm or less. These are asymmetric more prominent and larger right compared to left. CERVICAL SPINE: No fracture or focal lesion. OTHER FINDINGS: Incompletely visualized bilateral pleural effusions. Small mediastinal lymph nodes, small axillary lymph nodes bilaterally. Asymmetry of the thyroid suggesting prior resection of the left thyroid gland. Small nodular densities right thyroid lobe. Suggest elective thyroid ultrasound for further evaluation. IMPRESSION: No visualized/radiopaque foreign body Lymphadenopathy in the neck uncertain etiology and significance. Additional benign and/or incidental findings described above.
[2016-08-05 18:27] LABS: GLUCOSE,RANDOM 468 mg/dL (70-110)
[2016-08-05] MEDS ORDERED: Piperacillin/Tazobact 3.375 gm 100 ML IVPB STA (18:44)
[2016-08-05] MEDS ORDERED: Vancomycin 1gm in NS 250ml 1 GM/250 ML BAG IVPB STA (18:44)
[2016-08-05] MEDS ORDERED: Insulin Regular 1 UNITS/0.01 ML ML SC STA (18:45)
[2016-08-05] MEDS ORDERED: Insulin Reg-LOW-Coverage SC SCH (23:00)
[2016-08-06] MEDS ORDERED: guaiFENesin DM 200 mg-20 mg/10 ml UD PO STA (02:47)
[2016-08-06] MEDS: Insulin Reg-LOW-Coverage SC SCH ×5 (08:25→22:22)
[2016-08-06] MEDS: Levothyroxine 125 MCG TAB PO SCH (08:25)
[2016-08-06] MEDS: Insulin Detemir 100 units/ml Vial (Levemir) SC SCH ×2 (10:07→17:51)
[2016-08-06] MEDS: Potassium Chloride 20 mEq ER Tab PO SCH (10:07)
--- NOTE | 2016-08-06 11:55 | RAD ---
HISTORY: cough/pna COMPARISON: comparison made with prior chest radiograph 07/01/[address] scan chest 08/05/2016. FINDINGS: LUNGS: Middle lobe infiltrate and bibasilar atelectasis with bilateral effusions again noted. . PLEURA: No pneumothorax apparent. CARDIOVASCULAR: R appears borderline/ mildly enlarged OSSEOUS STRUCTURES: No significant abnormalities. VISUALIZED UPPER ABDOMEN: Normal. OTHER FINDINGS: None. IMPRESSION: Middle lobe infiltrate and bibasilar atelectasis with bilateral effusions again noted
--- NOTE | 2016-08-06 13:34 | CON ---
DATE: 08/06/2016 REASON FOR CONSULTATION AND FOLLOWUP: Cardiac evaluation, history of CHF, history of mitral regurgit ation, admitted with clogging of the ear and ringing. BRIEF CLINICAL HISTORY: A 51-year-old female with a past medical history significant for diabetes, h ypertension, hyperlipidemia, complained of worsening of cough, sore throat and ringing in the ear, fe els a clog. Also, complained of some swelling in the leg, but denies any chest pain, denies any palp itation. Denies any shortness of breath, denies any cough, fever, chills. PAST MEDICAL HISTORY: Significant for lymphoma, history of DVT, history of right brachial vein throm bosis, history of removal of Port-A-Cath, history of lymphoma status post chemo. Previous cardiac workup as follows: The patient had recent echo in March, revealed ejection fract ion 35%. The patient had a MUGA scan that shows ejection fraction 55% dated 04/13/2016. Prior to that , the patient had another MUGA last year ejection fraction 56%. The patient had cardiac catheterizat ion 03/2015; that showed essentially normal coronaries, decreased LV function. History of most recen t echo 04/07/2016, that shows ejection fraction 30%, severe mitral regurgitation, mild tricuspid regu rgitation, right ventricular systolic pressure 54, severe mitral regurgitation. REVIEW OF SYSTEMS: As per HPI. PHYSICAL EXAMINATION: VITAL SIGNS: Temperature afebrile, heart rate 97, blood pressure 110/62. HEENT: PERRLA. Extraocular muscles intact. NECK: Supple. No carotid bruit or thyromegaly. CHEST: Clear to auscultation. HEART: S1, S2 regular. ABDOMEN: Soft. EXTREMITIES: Clubbing and cyanosis negative. LABORATORY DATA: Blood workup as follows: WBC 6.6, hemoglobin 12.7, hematocrit 37.7, platelet count 291. Chemistry shows sodium 129, potassium 4.2, chloride 88, carbon dioxide 31, anion gap of 14, BU N 12, creatinine 0.5, random sugar 486, alkaline phosphatase 116. IMPRESSION: Hyponatremia, ringing of the ear, clinically not in failure, mitral regurgitation, tricu spid regurgitation, status post chemotherapy for lymphoma, nonischemic cardiomyopathy, normal coronar ies, swelling of the leg, diabetes, hypertension, hyperlipidemia, history of Deep venous thrombosis o f left upper extremity. Last MUGA scan 04/13/2016 ejection fraction 55%. Prior to that MUGA scan last year 56% dated 03/2015, status post cardiac catheterization on 03/2005, nonobstructive coronary queta ry disease, cardiac catheterization, last MUGA scan prior to this year is 04/11/2015, ejection 56%. RECOMMENDATION: Continue Eliquis for deep venous thrombosis of left upper extremity, remove the Port -A-Cath, propranolol will ____ to control the heart rate as we improve with medication. Continue Marilyn edgardo, continue digoxin. Continue gentle diuretics. Continue IV antibiotic. We will follow with you . The patient was on a beta melissa but it was held because of gets exacerbation of COPD. We will f natty with you. We will start low dose metoprolol. We will follow with you. Thank you, Dr. Roman, for providing the opportunity in taking care of the patient and will discontin ue telemetry. Mau Orozco MD cc: [phone] TT: 08/06/2016 13:33:51 Confirmation # [id number] Dictation # [id number] devin
--- NOTE | 2016-08-06 13:36 | CARD ---
APPROVED REPORT EKG Measurement Heart [id number] <Conclusion> Sinus tachycardia Left bundle branch block Abnormal ECG
[2016-08-06] MEDS: Digoxin 125 mcg (0.125 mg) Tab PO SCH (14:19)
[2016-08-06] MEDS: guaiFENesin DM 100 mg-10 mg/5 ml UD PO PRN ×2 (17:50→22:23)
[2016-08-06] MEDS: Ciprofloxacin/Dexamethasone OTIC SUSP AU SCH (17:54)
[2016-08-06] MEDS: Cefepime 1gm in NS 100ml 1 GM/100 ML BAG IVPB SCH (22:24)
--- NOTE | 2016-08-06 22:43 | CON ---
DATE: 08/06/2016 REFERRING PHYSICIAN: Dr. Roman. REASON FOR CONSULT: Recurrent pleural effusion at the left maxillary and left ear pain, leg swelling . HISTORY OF PRESENT ILLNESS: This is a 51-year-old female with known history of hypertension, diabete s, cardiomyopathy, valvular heart disease, may have a sleep apnea syndrome. Came into Emergency Room with leg swelling, left maxillary pain, left ear pain. Was admitted. Seen by Dr. Roman and cardio logy. No cough, no sputum production, no hemoptysis, no hematemesis, no hematuria reported. PAST MEDICAL HISTORY: History of lymphoma, cardiomyopathy, valvular heart disease, pulmonary hyperte nsion, recurrent heart failure. Also carries a diagnosis of bipolar. May have sleep apnea syndrome, but refused to do sleep study. FAMILY HISTORY: No significant cardiopulmonary status reported. SOCIAL HISTORY: Former smoker. Denied any alcohol use. ALLERGIES: None known. MEDICATIONS: She is on dexamethasone 1 drop twice a day, Cozaar 25 mg daily, doxycycline mg tw ice a day, Eliquis 5 mg twice a day, Flagyl 500 mg q. 8 hours, metformin 500 mg twice a day, insulin coverage, potassium 20 mEq daily, digoxin 0.125 mg daily, Lasix 40 mg IV daily, Levemir 10 units subc utaneous twice a day, cefepime 1 g q. 8 hours, Robitussin 5 mL q. 6 hours p.r.n., Synthroid 125 mcg A CB, Tenormin 12.5 mg twice a day. REVIEW OF SYSTEMS: No headache, no rhinitis, has left maxillary pain and also left ear discomfort, w ith some cervical node adenopathy. No chest pain, no nausea, no vomiting, no diarrhea, no dysuria. Does have leg swelling. PHYSICAL EXAMINATION: GENERAL: Lying in the bed in no acute distress. VITAL SIGNS: Temp is 98, heart rate is 90, respiratory rate is 20, blood pressure 107/62, pulse ox 9 7% on room air. HEENT: Moist mucous membranes. Crowded airway. Mallampati score is 4. Neck is supple. No JVD. Left maxillary area tenderness. Left ear is tender to pull. Cervical adenopathy. LUNGS: Have decreased breath sounds at bases. HEART: S1, S2. ABDOMEN: Soft, nontender. No organomegaly. EXTREMITIES: Have edema. NEUROLOGIC: Awake, alert, follows simple commands. LABORATORY DATA: Shows hemoglobin 12.7, hematocrit 37.7, WBC 6.6, platelet is 291. Sodium 139, pota ssium 4.2, chloride 88, bicarbonate 31, BUN 4, creatinine 0.5, glucose 468, calcium is 9.1, AST 46, A LT 50, alk phos is 116, albumin is 3.5. MICROBIOLOGY: Blood cultures have been negative. DIAGNOSTIC DATA: Soft tissue neck CT is unremarkable. CAT scan of the chest shows bilateral pleural effusions could be basilar atelectasis, cardiomegaly. EKG revealed sinus tachycardia with left bund le branch block. IMPRESSION AND PLAN: Cardiomyopathy with pleural effusion, recurrent heart failure, chronic obstruct magdaleno lung disease, bipolar disorder, history of lymphoma. May have otitis media, or may also have sin usitis. deep vein thrombosis. The patient was seen by cardiology, on diuretics. Also getting doxycycline. eyedrops. Continue diabetic diet. Follow up electrolytes in the morning. May have sleep apnea syndrome, but refused to have a sleep study. Try to use CPAP/BiPAP. Mau More MD cc: [id number] TT: 08/06/2016 22:42:17 Confirmation # [id number] Dictation # [id number] dn
[2016-08-07] MEDS: Cefepime 1gm in NS 100ml 1 GM/100 ML BAG IVPB SCH ×3 (05:52→21:27)
[2016-08-07 07:12] LABS: BLOOD UREA NITROGEN 16 mg/dL (7-21); CALCIUM 8.9 mg/dL (8.4-10.5); CARBON DIOXIDE 26 mmol/L (21-33); CHLORIDE 94 mmol/L (98-107); GFR AFRICAN-AMERICAN > 60; GLUCOSE,RANDOM 193 mg/dL (70-110); MAGNESIUM 1.7 mg/dL (1.7-2.2); POTASSIUM 3.7 mmol/L (3.6-5.0); SODIUM 131 mmol/L (132-148)
[2016-08-07] MEDS: Levothyroxine 125 MCG TAB PO SCH (07:51)
[2016-08-07] MEDS: Insulin Reg-LOW-Coverage SC SCH ×4 (07:51→22:00)
[2016-08-07] MEDS ORDERED: Potassium Chloride 20 mEq ER Tab PO ONE (09:56)
[2016-08-07] MEDS ORDERED: cefTRIAXone 1 gm 1 GM/100 ML BAG IVPB SCH (10:00)
[2016-08-07] MEDS: Insulin Detemir 100 units/ml Vial (Levemir) SC SCH ×2 (10:25→17:56)
[2016-08-07] MEDS: Potassium Chloride 20 mEq ER Tab PO SCH (10:25)
[2016-08-07] MEDS: Ciprofloxacin/Dexamethasone OTIC SUSP AU SCH ×2 (10:30→17:56)
--- NOTE | 2016-08-07 10:40 | PN ---
DATE: 08/07/2016 REASON FOR CONSULTATION: Cardiac evaluation, CHF, history of mitral regurgitation, admitted with juan gging of the ear and ringing and shortness of breath. BRIEF CLINICAL HISTORY: A 51-year-old female with a past medical history significant for diabetes, h ypertension, hyperlipidemia, lymphoma, status post chemotherapy, status post cardiac catheterization 03/2015, essentially normal coronaries. Last ejection fraction by MUGA dated 04/13/2016 55%. Prior t o that in 04/2015, ejection fraction 55%. Admitted here with clogging of the ears, ringing in the ear as well as mild leg swelling. PHYSICAL EXAMINATION: VITAL SIGNS: Temperature afebrile, heart rate 79, blood pressure 118/57. HEENT: PERRLA. Extraocular muscles intact. NECK: Supple. No carotid bruits. No thyromegaly. CHEST: Clear to auscultation. HEART: S1, S2 regular. ABDOMEN: Soft. EXTREMITIES: Clubbing, cyanosis negative. BLOOD WORKUP: WBC 6.6, hemoglobin 12.7, hematocrit 37.7, platelet count 291. Chemistry shows sodium 131, potassium 3. , chloride 94, carbon dioxide 26, anion gap of 15, BUN , creatinine 0.5. IMPRESSION: Decompensated congestive heart failure, acute on chronic secondary to systolic dysfuncti on, mitral regurgitation, ejection fraction by MUGA 55%, cardiomyopathy, nonischemic, status post car diac catheterization 03/2015, normal coronaries, status post chemo for lymphoma. RECOMMENDATION: Continue diuretics. Discontinue telemetry. Rehab. We will follow with you. The p atient was on beta melissa. Later on, it was held because of acute exacerbation of chronic obstructi ve pulmonary disease. We will follow with you. The patient is on apixaban because of the deep venou s thrombosis of upper extremity after removal of Port-A-Cath. Continue digoxin. Continue low dose o f beta melissa, atenolol as tolerated. We will follow with you. Thank you, Dr. Roman, for providing us the opportunity in taking care of the patient. We will follo w with you. We will supplement potassium and we will discontinue telemetry. Mau Orozco MD cc: [id number] TT: 08/07/2016 10:39:31 Confirmation # [id number] Dictation # [id number] en
[2016-08-07] MEDS: Digoxin 125 mcg (0.125 mg) Tab PO SCH (14:15)
--- NOTE | 2016-08-07 16:37 | PN ---
DATE: 08/07/2016 The patient is in bed in no acute distress, was seen earlier this morning in 261, bed 2. No fevers a nd chills. PHYSICAL EXAMINATION: VITAL SIGNS: Temperature is 97, blood pressure is 103/70, respiratory rate of 16. HEENT: Unremarkable. NECK: Supple. LUNGS: Have decreased breath sounds. HEART: Normal S1, S2. ABDOMEN: Soft, nontender. LABORATORY DATA: Reveals the patient's white count of 6.6, hemoglobin of 12, platelets of 291 and BU N of 16, creatinine of 0.05. Procalcitonin is less than 0.05. Microbiology reveals the blood cultur es are no growth. CAT scan of the chest: Airspace consolidation is seen. Review of the medications reveals the patient to be on p.o. doxycycline and p.o. Flagyl and IV cefepime. Microbiology reveals the blood cultures no growth at 24 hours. ASSESSMENT AND PLAN: She is a 51-year-old female with a history of hypertension, diabetes, cardiomyo trish, valvular heart disease, sleep apnea and bipolar. Recent hospitalization had questionable non- Hodgkin lymphoma, who is admitted now and found to have healthcare-associated pneumonia. The patient had a laparoscopic cholecystectomy done on 05/17/2016 and removal of Port-A-Cath at the same time. Cu rrently on doxycycline, Flagyl and cefepime. A normal procalcitonin. Will follow closely with you. Pending reyes culture results. Yehuda Valentino MD cc: [id number] TT: 08/07/2016 16:36:50 Confirmation # [id number] Dictation # [id number] dn
--- NOTE | 2016-08-07 20:18 | PN ---
DATE: 08/07/2016 REFERRING PHYSICIAN: Dr. Roman SUBJECTIVE: The patient is out of bed to chair. No headache. No rhinitis. Ear pain is better. Mi ld nausea. No chest pain. No abdominal pain. No diarrhea. Does have a leg swelling. OBJECTIVE: GENERAL: No acute distress. VITAL SIGNS: Temp is 98, heart rate is 70, respiratory rate is 20, blood pressure 109/75, pulse ox 9 8% on room air. HEENT: Moist mucous membranes. Crowded airway. Mallampati score is 4. NECK: Supple. No JVD. LUNGS: Has decreased breath sounds at the bases, right more than left. HEART: S1 and S2. ABDOMEN: Soft, nontender. No organomegaly. EXTREMITIES: Has edema. NEUROLOGIC: Awake, alert, follows simple command. MEDICATIONS: She is on Cipro with dexamethasone eardrops, Cozaar 12.5 mg daily, doxycycline 100 mg t wice a day, Eliquis 5 mg twice a day, Flagyl 500 mg q.8 hours, metformin 500 mg twice a day, insulin coverage, potassium 20 mEq daily, digoxin 0.125 mg daily, Lasix 40 mg IV daily, Levemir 10 units subQ twice a day, cefepime 1 g q.8 hours, Prandin 2 mg before meals, Robitussin DM 5 mL q.6 hours p.r.n. , Synthroid 125 mcg ACB, Tenormin 12.5 mg twice a day. LABORATORY DATA: Reviewed. Sodium 131, potassium 3.7, chloride 94, bicarbonate 26, BUN 16, creatini ne 0.5, glucose 193, calcium is 8.9, magnesium 1.7. Procalcitonin is 0.05. Laboratory data shows bl ood cultures have been negative. IMPRESSION AND PLAN: Cardiomyopathy with pleural effusion, recurrent heart failure, chronic obstruct magdaleno lung disease, bipolar disorder, history of lymphoma, diabetes. Pulmonary point of view, doing ok ay. Keep head elevated at 45 degrees. Bronchodilator, antibiotics as per infectious diseases. Sylvia gerard prophylaxis. Deep venous thrombosis prophylaxis. Continue diuretics. Followup labs in the [facility] ing. Thank you and we will follow with you. Mau More MD cc: [id number] TT: 08/07/2016 20:17:47 Confirmation # [id number] Dictation # [id number] sn
[2016-08-07] MEDS: guaiFENesin DM 100 mg-10 mg/5 ml UD PO PRN (21:27)
--- NOTE | 2016-08-07 23:31 | PN ---
DATE: 08/07/2016 The patient feels better. Her ear pain, she received ear drops, Cipro, and IV antibiotics for possib le otitis media. She feels better. Diarrhea seems better also. Breathing is better. The patient s een by consultants . PHYSICAL EXAMINATION: VITAL SIGNS: Temperature 97.6, her heart rate 91, blood pressure is 103/73, respiration 20. HEAD AND NECK: Normal. No JVD. No thyromegaly. CHEST: Diminished breath sounds. CARDIAC: First and second sounds are normal. ABDOMEN: Soft, obese, nontender. EXTREMITIES: Mild edema. NEUROLOGIC: Normal. LABORATORY DATA: Sodium 131, potassium 3.7, chloride 94, bicarbonate 26, BUN 16, creatinine 0.5, blo od sugar 193. Procalcitonin is negative. IMPRESSION: 1. Acute healthcare-associated pneumonia. Continue cefepime and doxycycline and Flagyl. 2. Congestive heart failure, acute on top of chronic systolic heart failure. 3. Chronic obstructive pulmonary disease. PLAN: Is to continue IV Lasix. Continue inhaled bronchodilators and continue current management. W e will follow up clinically. Richardson Roman MD cc: [id number] TT: 08/07/2016 23:31:03 Confirmation # [id number] Dictation # [id number] tn
[2016-08-08] MEDS: Cefepime 1gm in NS 100ml 1 GM/100 ML BAG IVPB SCH ×3 (05:12→21:54)
[2016-08-08] MEDS: Insulin Reg-LOW-Coverage SC SCH ×4 (08:32→21:54)
--- NOTE | 2016-08-08 08:40 | PN ---
DATE: 08/06/2016 CHIEF COMPLAINT: Weakness times several days. HISTORY OF PRESENT ILLNESS: This is a 51-year-old female with a past medical history significant for multiple hospitalizations and history of cholecystitis, had laparoscopic cholecystectomy approximate ly 2 months ago with a history of coronary artery disease, chronic congestive heart failure, diabetes mellitus, hypertension, migraine headaches, bipolar, who was admitted on this admission with a diagn osis of pneumonia, tachycardia, and hyperglycemia. The patient states that she has been having mild shortness of breath and low grade fevers and no chest pain. There is mild shortness of breath. Ther e is mild cough and no hemoptysis and no abdominal pain, diarrhea or constipation. No new headaches, no blurred vision. PAST MEDICAL HISTORY: Significant for coronary artery disease, congestive heart failure, diabetes me llitus, hypertension, depression, anxiety, bipolar, and hypothyroidism. PAST SURGICAL HISTORY: Significant for recent laparoscopic cholecystectomy. The patient also states that she has a history of non-Hodgkin's lymphoma. ALLERGIES: The patient has no known allergies to any antibiotics. Emergency Room chart is reviewed where it states that the patient has had congestive heart failure, d iabetes, hypertension, thyroid disease, admitted with worsening cough and fevers at home. Difficulty swallowing. MEDICATIONS: At home are reviewed and include Cozaar, Eliquis, potassium, Glucophage, Synthroid, Las ix, and digoxin. PHYSICAL EXAMINATION: GENERAL: She is in bed, appearing nontoxic; however, chronically ill. VITAL SIGNS: Temperature of 97, heart rate of 100, respiratory rate of 20. Blood pressure is 117/70 . HEENT: Unremarkable. NECK: Supple. LUNGS: Have decreased breath sounds. HEART: Normal S1, S2. ABDOMEN: Soft, nontender, no organomegaly, no rebound. LABORATORY EXAMINATION: Reveals a white count of 6.6, hemoglobin of 12.7 and platelets of 291 and 57 % granulocytosis. Chemistries reveals a BUN of 12, creatinine is 0.5. Alkaline phosphatase is carlos l. AST is 46, glucose of 468. Sodium is low at 129. Review of chest x-ray reveals the patient has middle lobe infiltrate, bibasilar atelectasis and effusions. The patient also had a CAT scan of the chest, which reveals an airspace consolidation at the right middle lobe healthcare-associated pneumon ia. The patient also had a CAT scan of the neck, which is reviewed. Microbiology is pending. Micro biology from the past shows the blood cultures in the past have been negative. Review of the orders reveals blood cultures are pending and the patient started on Flagyl p.o., doxycycline, dose of vanco mycin, and a dose of Zosyn and ceftriaxone. ASSESSMENT AND PLAN: A 51-year-old female with a history of coronary artery disease, congestive hear t failure, diabetes, hypertension, hypothyroidism, history of non-Hodgkin's lymphoma as per nurse's n ote, history of migraine, bipolar, anxiety, admitted with pulmonary symptoms and tachycardia and foun d to have an infiltrate on CAT scan. 1. Healthcare-associated right middle lobe pneumonia. We will treat the patient with Maxipime and d oxycycline pending blood cultures and we will also order procalcitonin and sputum cultures, pending b lood cultures and initial workup results and we will make further recommendations. Yehuda Valentino MD cc: 350 TT: 08/06/2016 19:50:23 Confirmation # [id number] Dictation # [id number] mn
--- NOTE | 2016-08-08 08:40 | HP ---
MAIN COMPLAINT: Neck pain, dysphagia, and difficulty swallowing food. HISTORY OF PRESENT ILLNESS: The patient had these symptoms for the last few days. She does have a h istory of congestive heart failure, diabetes, hypothyroidism, developmental problem, came in with the above-complaint. ER physician did a CT scan of the neck and lung. She has right middle lobe pneumo dianna, less likely to be atelectasis. The patient also does have some cough and denied any fever or an y chills. The patient mentioned she has difficulty swallowing solid food. No other complaint. PAST MEDICAL HISTORY: As before, she does have history of lymphoma years ago, was 10-15 years ago, _ ____, congestive heart failure, non-ischemic cardiomyopathy, COPD, obstructive sleep apnea, congestiv e heart failure, bilateral pleural effusion, laparoscopic cholecystectomy. ALLERGIES: No known allergies. FAMILY HISTORY: Noncontributory. MEDICATIONS: She does take metformin 500 b.i.d., Synthroid 125 mcg once a day, Lasix 80 mg p.o. kelly y, Lanoxin 0.125 mg p.o. daily, Eliquis 5 mg b.i.d., Cozaar 12.5 mg p.o. daily, potassium 20 mEq ____ _ a day, also she is supposed to get Amaryl blood sugar pills, but she seems noncompliant. REVIEW OF SYSTEMS: Dyspnea, leg edema, short of breath, headache. PHYSICAL EXAMINATION: VITAL SIGNS: Temperature 98.4, heart rate 98, blood pressure 107/62, respirations 20, saturation 97% . HEAD AND NECK: Normal. No JVD. No thyromegaly. CHEST: Diminished breath sounds, more on the right than the left. CARDIAC: First sound, second sound normal. ABDOMEN: Soft, nontender. EXTREMITIES: No edema. LABORATORY: CT scan of the lung shows moderate bilateral pleural effusion and right lower lobe pneum onia. CT head and neck was insignificant except for several nodules , small lymph nodes. LABORATORY DATA: Sodium 129, potassium 4.2, chloride 88, bicarbonate 31, BUN 12, creatinine 0.5, blo od sugar 468, calcium 9.1, total bilirubin 0.8, AST 46, ALT normal. Alkaline phosphatase normal. CB C: White count 6.6, hemoglobin 12.7, hematocrit 37.7, platelets 291. IMPRESSION: 1. Hospital-acquired pneumonia in this 51-year-old female with recurrent admissions. We will get an infectious disease consult. We will put the patient on antibiotics. Initially she was given Roceph in, switched later to cefepime. Continue doxycycline, and we are also going to give the patient Flag yl because of associated diarrhea. 2. Chronic obstructive pulmonary disease (COPD), congestive heart failure. Cardiology consult, pulm onary consult. We will continue current treatment. The patient is currently getting inhaled broncho dilators and getting also treatment for pneumonia. She is getting also Lasix IV. 3. Diabetes, uncontrolled, 500 range. We will start the patient on Levemir plus metformin, and we w ill monitor her sugar We will follow up with the technology consultant. Follow up in the morning. Richardson Roman MD cc: 223 TT: 08/08/2016 01:13:40 tn
[2016-08-08] MEDS: Ciprofloxacin/Dexamethasone OTIC SUSP AU SCH ×2 (11:06→17:35)
[2016-08-08] MEDS: Levothyroxine 125 MCG TAB PO SCH (11:07)
[2016-08-08] MEDS: Potassium Chloride 20 mEq ER Tab PO SCH (11:09)
[2016-08-08] MEDS: Insulin Detemir 100 units/ml Vial (Levemir) SC SCH ×2 (11:09→17:44)
--- NOTE | 2016-08-08 12:59 | PN ---
DATE: 08/08/2016 The patient is in room 575, bed 1. REASON FOR CONSULTATION AND FOLLOWUP: Cardiac evaluation, CHF, history of mitral regurgitation, admi tted with shortness of breath and ringing in the ears. HISTORY OF PRESENT ILLNESS: A 51-year-old female with past medical history significant for diabetes, hypertension, hyperlipidemia; lymphoma, status post chemotherapy; status post cardiac catheterizatio n in 03/2015, essentially normal coronaries. Last ejection fraction by MUGA scan on 04/13/2016 was 5 5%. Prior to that, in 04/2015 ejection fraction of 55%. The patient admitted with mild swelling of legs with some shortness of breath and ringing in the ears with clogging of the ears. The patient no w says she feels much better. She denies any chest pain. She says her breathing is better. Denies palpitation. PHYSICAL EXAMINATION: VITAL SIGNS: Blood pressure 113/81, respirations 19, pulse 110, temperature 97.5. HEAD: Normocephalic. EYES: Pupil normal. Conjunctivae normal. NOSE AND THROAT: Normal. NECK: JVP low. Carotid equal. THORAX: AP diameter normal. LUNGS: Clear. CARDIOVASCULAR: S1, S2, pansystolic murmur, no rub. ABDOMEN: Soft, no tenderness, no organomegaly. Bowel sounds normal. EXTREMITIES: No clubbing, no cyanosis. LABORATORY DATA: WBC 6.6, hemoglobin 12.7, hematocrit 37.7. Sodium 131, potassium 3.7, BUN 16, crea tinine 0.5, sugar 206, magnesium 1.7. DIAGNOSES: Decompensated congestive heart failure, acute on chronic, secondary to systolic dysfuncti on; mitral regurgitation, ejection fraction by MUGA scan 55%; cardiomyopathy, nonischemic; status pos t cardiac catheterization in 03/2015, normal coronaries; status post chemotherapy for lymphoma. PLAN: The patient has clinically improved. Will continue Ciprodex 1 drop initiated b.i.d., losartan 12.5 mg daily, Doryx 100 mg p.o. q. 12 hours, Eliquis 5 mg b.i.d., metronidazole 500 mg p.o. q. 8 ho urs, metformin 500 mg b.i.d., potassium 20 mEq p.o. daily, digoxin 0.125 daily, furosemide 40 IV kelly y, insulin as ordered, cefepime 1 gram q. 8 hours, Prandin 2 mg p.o. a.c, Risperdal 1 ____ p.o. at be dtime, Synthroid 125 mcg p.o. daily, atenolol 12.5 mg b.i.d. Will continue present therapy. Will fo llow with you. Mau Rivera MD cc: [id number] TT: 08/08/2016 12:04:38 Confirmation # [id number] Dictation # [id number] mn
--- NOTE | 2016-08-08 13:33 | CON ---
DATE: 08/08/2016 PSYCHIATRIC CONSULTATION HISTORY OF PRESENT ILLNESS: The patient is a 51-year-old female who was admitted to the [facility] the Emergency Room where she came due to shortness of breath, leg swelling, left maxillary pain, le ft ear pain. The patient had no cough or hemoptysis. The patient has a long history of psychiatric problems with multiple psychiatric hospitalizations for schizoaffective disorder. PAST MEDICAL HISTORY: She has a past history of lymphoma, cardiomyopathy, valvular heart disease, pu lmonary hypertension, recurrent heart failure, possible sleep apnea. I spoke with nursing staff. The patient was currently n.p.o., now on clear liquids, as she had sever e nausea and vomiting last night. CURRENT MEDICATIONS: Include Ciprodex Otic, Cozaar, Doryx, Eliquis, Flagyl, Glucophage, K-Dur, Lanox in, Lasix, Levemir, Maxipime, Prandin, Risperdal oral solution 1 mg at bedtime, Synthroid, Tenormin, Xanax 0.25 mg b.i.d. LABORATORY DATA: White count 6600, hemoglobin 12.7, platelet count 291,000. Metabolic profile yeste rday revealed sodium 131, potassium 3.7, chloride 94, CO2 of 26, anion gap 15, BUN 16, creatinine 0.6 . Estimated GFR greater than 60. Random glucose today 224. PERSONAL HISTORY: She is on disability for psychiatric problems. She lives alone. Treated in the [facility] the [facility]. The patient has multiple hospitalizations. The m ost recent psychiatric hospitalization was in April to May 2014. The patient at that time was treated for schizoaffective disorder. She was placed on 1 mg b.i.d. of risperidone, and Klonopin 0. 5 mg b.i.d. REVIEW OF SYSTEMS: Complains of nausea, abdominal pain, complaints of wanting to go home. No other complaints. PSYCHIATRIC MENTAL STATUS: Awake, alert. Affect somewhat constricted. No agitation, oriented x 3, aware of her surroundings. VITAL SIGNS: Blood pressure 113/81, pulse 110. She is afebrile, respirations 19 per minute and afeb rile. IMPRESSION: Schizoaffective disorder, nausea, vomiting. The patient has a history of diabetes ora ugarte. She has a hospital-acquired pneumonia, chronic obstructive pulmonary disease. PLAN: We will continue Risperdal 1 mg at bedtime. We will also continue Xanax 0.25 mg ____.i.d. We will reevaluate as needed. From my point of view, she can be discharged when she is finally medical ly stable. Louie Roach MD cc: [id number] TT: 08/08/2016 13:06:10 Confirmation # [id number] Dictation # [id number] jn
[2016-08-08] MEDS: Digoxin 125 mcg (0.125 mg) Tab PO SCH (14:26)
--- NOTE | 2016-08-08 17:04 | CON ---
DATE: 08/08/2016 Seen and examined at the bedside earlier today. REQUEST FOR CONSULT: Dysphagia solids. The chart was reviewed. HISTORY OF PRESENT ILLNESS: This is a 51-year-old female with a past medical history of lymphoma yea rs ago, CHF, COPD, diabetes mellitus and gastroparesis. This patient is known to our service. We reddy ve followed her multiple times in the past. She had elevated liver enzymes which was multifactorial at the time, related to hepatic congestion and possibly medication induced. She had also complained of nausea, vomiting, and epigastric pain in the past. She had a CT scan done of abdomen and pelvis w ith oral contrast, which did not report any acute findings. She also went for an abdominal ultrasoun d, which showed small ascites. She has history of a cholecystectomy. Her common bile duct was negat magdaleno for stones or dilatation. This time, she came to the hospital with complaints of worsening cough , sore throat and left ear pain and complaints of difficulty swallowing, mostly of solids. She had h ad a chest CT without contrast done showing bilateral pleural effusions, likely possible pneumonia an d had a soft tissue neck CAT scan done which did not visualize any foreign body. Small mediastinal l ymph nodes of the neck were noted, but the suprahyoid neck was unremarkable. This morning she is den sharron she is having any dysphagia. She is more complaining of a dry mouth. PAST MEDICAL HISTORY: Congestive heart failure, diabetes mellitus, hypothyroidism, obstructive sleep apnea, DVT, cardiomyopathy, pleural effusion. She had a thoracentesis. Bipolar disorder, chronic l yana disease. SURGICAL HISTORY: She had a cholecystectomy. SOCIAL HISTORY: Former smoker. History of cocaine use in the past, none now. Denies ETOH. FAMILY HISTORY: Noncontributory at this time. ALLERGIES: No known drug allergies. MEDICATIONS: Reviewed as per JUN. REVIEW OF SYSTEMS: Systems reviewed with positive findings, see HPI. VITAL SIGNS: Temperature is 97.5, blood pressure 101/80, pulse rate is 110, respirations 19, 95 on r oom air. LABORATORY DATA: WBC 6.6, H and H is 12.7 and 37.7, platelets are 291. Sodium is 131, K is 3.7, BUN 16, creatinine is 0.5, mag is 1.7. Chest x-ray, middle lobe infiltrate and bibasilar atelectasis ____ bilateral effusion again noted. PHYSICAL EXAMINATION: HEENT: Sclera is anicteric. NECK: Supple. CARDIAC: S1, S2. LUNGS: Sounds with decreased breath sounds but good air entry. No rales or wheeze. ABDOMEN: With bowel sounds, soft, nondistended, nontender on palpation. No organomegaly. EXTREMITIES: Positive bilateral edema. NEUROLOGIC: Awake, alert, and oriented. ASSESSMENT: A 51-year-old female with decompensated congestive heart failure, came with complaints o f worsening of cough and sore throat. The patient looks like she may have pneumonia. She is complai iris of dysphagia, difficulty swallowing, which she currently is denying, reporting that her mouth fe els very dry. She has history of diabetes mellitus, gastroparesis, chronic obstructive pulmonary dis ease, hypothyroidism. PLAN: She is currently on a liquid diet. She wants to eat. I tried pureed food, she refuses to eat that. We will put her on a carbohydrate soft diet. Discussed with the patient to chew the food wel l. If she has any further problems, we will consider endoscopy if she remains symptomatic. The ervin ent is currently on Eliquis, history of deep venous thrombosis; on Maxipime, Doryx, doxycycline p.o. She is also getting Lasix and is on her insulin and is also on Flagyl. We will follow up closely. Thank you for this consult and for allowing us to participate in your patient's care. We will make f madhavi recommendations based upon patient's clinical course. Discussed with nursing staff. The patient was seen and case discussed with Dr. Quigley. Faye ARECHIGA cc: [id number] TT: 08/08/2016 17:03:19 Confirmation # [id number] Dictation # [id number] sn
[2016-08-08 20:37] VITALS: RESP 20
--- NOTE | 2016-08-08 21:01 | PN ---
DATE: 08/08/2016 The patient is in bed in no acute distress, nontoxic. PHYSICAL EXAMINATION: VITAL SIGNS: Temperature is 97, blood pressure is 101/80, respiratory rate of 18. HEENT: Unremarkable. NECK: Supple. LUNGS: Have decreased breath sounds. HEART: Normal S1, S2. ABDOMEN: Soft. LABORATORY DATA: Reveals a white count of 6.6, hemoglobin of 12, platelets of 291. Chemistries reve al the BUN is 16, creatinine is 0.5. Microbiology reveals the blood cultures have no growth and the patient's procalcitonin is also less than 0.05. ASSESSMENT AND PLAN: A 51-year-old female with history of hypertension, diabetes, cardiomyopathy, va lvular heart disease, sleep apnea, bipolar, recent hospitalization and history of questionable non-Ho dgkin's lymphoma, admitted now with a healthcare-associated pneumonia with a normal procalcitonin. T he patient had laparoscopic cholecystectomy on 05/17/2016 and removal of Port-A-Cath at the same time . Currently on doxycycline, Flagyl and cefepime, awaiting for urinalysis and urine culture. The blo od cultures are no growth at 48 hours and will follow with you. Yehuda Valentino MD cc: [id number] TT: 08/08/2016 21:00:45 Confirmation # [id number] Dictation # [id number] mn
--- NOTE | 2016-08-08 21:11 | PN ---
DATE: 08/08/2016 REFERRING PHYSICIAN: Dr. Roman. SUBJECTIVE: She is out of bed to chair, feels better. No headaches, no rhinitis, no nausea, no vomi ting, no diarrhea. Does have leg swelling. OBJECTIVE: GENERAL: No acute distress. VITAL SIGNS: Temperature is 98, heart rate is 110, respiratory rate is 20, blood pressure 113/81, pu lse ox 95% on room air. HEENT: Moist mucous membranes. Crowded airway. NECK: Supple. No JVD. LUNGS: Has decreased breath sounds at the right base. HEART: S1 and S2. ABDOMEN: Soft, nontender. No organomegaly. EXTREMITIES: There is no edema. NEUROLOGIC: Awake, alert, follows simple command. MEDICATIONS: She is on Cipro eardrops twice a day, Cozaar 12.5 mg daily, doxycycline 100 mg twice a day, Eliquis 5 mg twice a day, Flagyl 500 mg q. 8 hours, metformin 500 mg twice a day, insulin covera ge, potassium 20 mEq daily, digoxin 0.125 mg daily, Lasix 40 mg daily, Levemir 10 units subQ twice a day, cefepime 1 g q. 8 hours, Prandin 2 mg a.c., Risperdal 1 mg at bedtime, Robitussin DM 5 mL q. 6 h ours p.r.n., Synthroid 125 mcg a.c.b., Tenormin 12.5 mg twice a day, Xanax 0.25 mg twice a day and Zo prasanth on a p.r.n. basis. LABORATORY DATA: Shows blood sugar today at 224. Microbiology: Blood cultures have been negative. IMPRESSION AND PLAN: Cardiomyopathy with pleural effusion, recurrent heart failure, chronic obstruct magdaleno lung disease, bipolar disorder, history of lymphoma, diabetes. Pulmonary point of view, doing ok ay. Continue diuretics, bronchodilator after load allied health professional. Educated about fluid intake. Follow up labs in the morning. Thank you and will follow with you. Mau More MD cc: [id number] TT: 08/08/2016 21:10:18 Confirmation # [id number] Dictation # [id number] jn
--- NOTE | 2016-08-09 01:45 | CON ---
DATE: 08/08/2016 ADDENDUM: This is an addendum to the GI progress consultation report dictated by Faye Doherty NP. The patient was well-known to us because of previous admissions. This present consultation is an addendum to the consultation report dictated by Faye Doherty NP. The patient is complaining of dry mouth. She did have some difficulty swallowing before. At the moment, she feels fine and she wants solid food. Refuse puree. No complaints of any abdominal pain. The patient does have a history of possible gastroparesis. PHYSICAL EXAMINATION: ABDOMEN: Soft. There is no mass, no tenderness. IMPRESSION: Recommended pureed diet, hard or soft diet to chew well, and continue the PPI. Thank you very much for allowing us to participate in the care of this patient. Renuka Quigley MD cc: [id number] TT: 08/09/2016 01:44:46 Confirmation # [id number] Dictation # [id number] ricardo FUENTES
[2016-08-09] MEDS: Cefepime 1gm in NS 100ml 1 GM/100 ML BAG IVPB SCH ×3 (06:01→21:11)
--- NOTE | 2016-08-09 07:57 | PN ---
DATE: 08/08/2016 The patient feels better. She is eating pureed diet. Seen by gastroenterology. Ear pain seems bett er. She has no chest pain, no short of breath. The patient has recurrent hospital admission with a possible pneumonia. Currently on IV cefepime. PHYSICAL EXAMINATION: VITAL SIGNS: Temperature 97.5, heart rate is 75, blood pressure 102/68, respirations 20, saturation 97% on room air. HEAD AND NECK: Normal. No JVD, no thyromegaly. CHEST: Diminished breath sounds bilaterally. CARDIAC: First sound, second sound normal. ABDOMEN: Soft, nontender. EXTREMITIES: There is mild edema. LABORATORY DATA: Blood sugar running 200s, 230-200. IMPRESSION AND PLAN: 1. Recurrence nosocomial pneumonia. Continue cefepime, Maxipime 1 g IV q. 8. Continue Flagyl. We will follow up clinically. Continue inhaled bronchodilators. 2. History of cardiomyopathy, nonischemic; congestive heart failure. Continue Lasix. 3. Schizophrenia. Continue Risperdal and Klonopin. Continue Risperdal as per psychiatrist in the p ast and continue Xanax p.r.n. 4. Hypothyroidism, history of lymphoma, lymphadenopathy, history of nonischemic cardiomyopathy, diab etes type 2. Continue Prandin 2 mg before meals. Continue metformin. Follow up clinically. 5. History of diarrhea. The patient currently getting Flagyl. Blood culture seems negative. Loli dos santos for stool culture. Continue current treatment. Richardson Roman MD cc: [id number] TT: 08/09/2016 07:55:57 Confirmation # [id number] Dictation # [id number] tn
[2016-08-09 08:08] LABS: ALB/GLOB RATIO 0.9 (1.1-1.8); ALKALINE PHOSPHATASE 95 U/L (38-133); ALT/SGPT 59 U/L (7-56); AST/SGOT 43 U/L (15-39); BILIRUBIN,TOTAL 0.6 mg/dL (0.2-1.3); BLOOD UREA NITROGEN 15 mg/dL (7-21); CARBON DIOXIDE 26 mmol/L (21-33); CHLORIDE 97 mmol/L (95-110); GFR AFRICAN-AMERICAN > 60; GLUCOSE,RANDOM 223 mg/dL (70-110); POTASSIUM 4.6 mmol/L (3.6-5.0); SODIUM 131 mmol/L (132-148); TOTAL PROTEIN 6.3 g/dL (5.8-8.3)
[2016-08-09] MEDS: Insulin Reg-LOW-Coverage SC SCH ×4 (08:35→21:12)
[2016-08-09] MEDS: Levothyroxine 125 MCG TAB PO SCH (08:36)
[2016-08-09] MEDS: Ciprofloxacin/Dexamethasone OTIC SUSP AU SCH ×2 (11:21→18:55)
[2016-08-09] MEDS: Potassium Chloride 20 mEq ER Tab PO SCH (11:22)
[2016-08-09] MEDS: Insulin Detemir 100 units/ml Vial (Levemir) SC SCH ×2 (11:30→17:26)
--- NOTE | 2016-08-09 13:51 | PN ---
DATE: 08/09/2016 REASON FOR CONSULTATION: Cardiac evaluation, CHF, mitral regurgitation, admitted with shortness of b reath, ringing in the ears. The patient denies any chest pain, shortness of breath, any palpitation. PHYSICAL EXAMINATION: VITAL SIGNS: Temperature afebrile, heart rate , blood pressure 102/68. HEENT: PERRLA. Extraocular muscles intact. NECK: Supple. No carotid bruit, no thyromegaly. CHEST: Clear to auscultation. HEART: S1, S2 regular. ABDOMEN: Soft. EXTREMITIES: Clubbing, cyanosis negative. BLOOD WORKUP: Sodium 131, potassium 4. , chloride 97, carbon dioxide 26, anion gap of 13, BUN 15 , creatinine 0.5, glucose 301. IMPRESSION: Poorly controlled diabetes, mitral regurgitation, tricuspid regurgitation, cardiomyopath y, history of lymphoma, status post chemo, nonischemic cardiomyopathy, status post cardiac catheteriz ation, nonobstructive coronary artery disease in the past, history of deep venous thrombosis left upp er extremity. RECOMMENDATIONS: Continue supplement electrolytes as needed. Monitor electrolytes. We will follow with you. Continue diuretics. We will follow with you. Thank you, Dr. Roman, for providing us the opportunity in taking care of the patient. Mau Orozco MD cc: [id number] TT: 08/09/2016 13:51:02 Confirmation # [id number] Dictation # [id number] en
--- NOTE | 2016-08-09 13:52 | PN ---
DATE: 08/09/2016 Seen and examined at the bedside earlier this morning. The patient complained of dry mouth yesterday. She denies dysphagia. She refused pureed diet yesterday. We requested a swallowing evaluation. She refused a swallowing eval. I saw the patient this morning and she denies any difficulty in swallowing liquids or solids. She was placed n.p.o. after midnight for endoscopy. She reported that she tolerated her food and does not want to have endoscopy done. Denies any nausea, vomiting, or abdominal pain. Otherwise, no acute overnight events reported by nursing staff. VITAL SIGNS: Temperature 98.5, blood pressure is 96/52, pulse rate is 103, respirations 20, 94 on room air. LABORATORY DATA: Today, sodium 131, K is 4.6, BUN 15, creatinine 0.5, total bilirubin is 0.6. AST 43, ALT 59, alkaline phosphatase is 95. PHYSICAL EXAMINATION: HEENT: Sclerae anicteric. NECK: Supple. CARDIAC: S1, S2. LUNGS: With decreased breath sounds. Did not hear any rales or wheeze. ABDOMEN: With bowel sounds. Soft, nontender. No rebound, guarding, or organomegaly. EXTREMITIES: She does have some ____ trace edema. ASSESSMENT: The patient is here for pneumonia. She has history of schizophrenia, history of cardiomyopathy as well as gastroparesis. The patient complained of dry mouth. She is denying any dysphagia. So far she is tolerating her oral intake. She has a history of elevated liver enzymes in the past, and she is noted to have some mild elevation. She did have a cholecystectomy. The elevation could be medication induced or even hepatic congestion. Will continue to follow. No reports of any loose stools. PLAN: The patient will be put on soft, diabetic, heart healthy diet. Discussed with patient to chew. Reeducated patient to eat slowly and chew her food well. Refuse endoscopic evaluation, discussed with patient in detail , still refuse, she wants to eat. She has history of DVT. She is on Eliquis and Maxipime, on doxycycline, Lasix, insulin coverage and on oral Flagyl. The patient refused her medications yesterday. I spoke to nursing staff. The patient was seen and case discussed with Dr. Quigley. Faye ARECHIGA cc: Norris TT: 08/09/2016 11:52:12 Confirmation # [id number] Dictation # [id number] mn GINA
[2016-08-09] MEDS: Digoxin 125 mcg (0.125 mg) Tab PO SCH (14:24)
--- NOTE | 2016-08-09 18:50 | PN ---
DATE: 08/09/2016 REFERRING PHYSICIAN: Dr. Roman. SUBJECTIVE: She is lying in the bed, head at 45 degrees, feels better, decreased cough, decreased sh ortness of breath. No nausea, no vomiting or diarrhea. Decreased leg swelling. OBJECTIVE: GENERAL: No acute distress. VITAL SIGNS: Temperature is 98, heart is , respiratory rate is 20, blood pressure 101/65, pulse ox 94% on room air. HEENT: Moist mucous membrane. Crowded airway. NECK: Supple, no JVD. LUNGS: Have a few crackles in the bases. HEART: S1, S2. ABDOMEN: Soft, nontender. No organomegaly. EXTREMITIES: Does have a trace edema. NEUROLOGIC: Awake, alert, follows simple commands. MEDICATIONS: She is on Ciprodex otic solution 1 drop twice a day, Cozaar 12.5 mg daily, doxycycline 100 mg twice a day, Eliquis 5 mg twice a day, Flagyl 500 mg q. 8 hours, metformin 500 mg twice a day, insulin coverage, potassium 20 mEq daily, digoxin 0.125 mg daily, Lasix 40 mg daily, Levemir 10 unit s subQ twice a day, cefepime 1 g IV q. 8 hours, Prandin 2 mg IV a.c., risperidone 1 mg at bedtime, Ro bitussin-DM 5 mL q. 6 hours p.r.n., Synthroid 125 mcg a.c.b., Tenormin 12.5 mg twice a day, Xanax 0.2 5 mg twice a day, Zofran 4 mg q. 4 hours p.r.n. LABORATORY DATA: Shows sodium 131, potassium 4.6, chloride 97, bicarbonate 26, BUN 15, creatinine 0. 5, glucose 223, calcium 9.0, AST 43, ALT 15, alk phos is 95. Procalcitonin is not done. Microbiolog y: Blood cultures have been no growth. IMPRESSION AND PLAN: Cardiomyopathy with pleural effusion, recurrent heart failure, chronic obstruct magdaleno lung disease, bipolar disorder, history of lymphoma, diabetes. Pulmonary point of view, doing ok ay. Continue diuretics, bronchodilator after low log marker. Gastric prophylaxis. Fall precaution. T antoinette you and will follow with you. Mau More MD cc: [facility] TT: 08/09/2016 18:50:10 Confirmation # [id number] Dictation # [id number] mn
--- NOTE | 2016-08-09 21:30 | CP.PCM.PN ---
Subjective - Date & Time of Evaluation Date of Evaluation: 08/09/16 Time of Evaluation: 10:35 - Subjective Subjective: Patient is comfortable in bed, not in distress, afebrile overnight. Objective - Vital Signs/Intake and Output Vital Signs (last 24 hours): Temp Pulse Resp BP Pulse Ox 97.7 F 109 H 20 101/65 94 L 08/09/16 16:00 08/09/16 16:00 08/09/16 16:00 08/09/16 16:00 08/09/16 16:00 Intake and Output: 08/09/16 08/10/16 18:59 06:59 Intake Total 600 Balance 600 - Medications Medications: Current Medications Alprazolam (Xanax) 0.25 mg PO BID IZABELA PRN Reason: Protocol Stop: 08/14/16 23:31 Last Admin: 08/09/16 17:27 Dose: 0.25 mg Apixaban (Eliquis) 5 mg PO BID IZABELA PRN Reason: Protocol Last Admin: 08/09/16 17:27 Dose: 5 mg Atenolol (Tenormin) 12.5 mg PO BID [facility] Last Admin: 08/09/16 18:55 Dose: Not Given Ciprofloxacin/Dexamethasone (Ciprodex Otic) 1 drop AU BID [facility] Stop: 08/13/16 18:01 Last Admin: 08/09/16 18:55 Dose: Not Given Digoxin (Lanoxin) 0.125 mg PO 1400 [facility] Last Admin: 08/09/16 14:24 Dose: 0.125 mg Doxycycline Hyclate (Doryx) 100 mg PO Q12 IZABELA PRN Reason: Protocol Stop: 08/15/16 22:01 Last Admin: 08/09/16 21:12 Dose: Not Given Furosemide (Lasix) 40 mg IVP DAILY [facility] Last Admin: 08/09/16 11:29 Dose: 40 mg Guaifenesin/Dextromethorphan (Robitussin Dm) 5 ml PO Q6H PRN PRN Reason: Cough Last Admin: 08/07/16 21:27 Dose: 5 ml Cefepime HCl (Maxipime 1gm) 1 gm in 100 mls @ 100 mls/hr IVPB Q8 IZABELA PRN Reason: Protocol Stop: 08/15/16 22:01 Last Admin: 08/09/16 21:11 Dose: 100 mls/hr Insulin Detemir (Levemir) 10 unit SC BID [facility] Last Admin: 08/09/16 17:26 Dose: 10 unit Insulin Human Regular (Humulin R Low) 0 units SC ACHS [facility] PRN Reason: Protocol Last Admin: 08/09/16 21:12 Dose: Not Given Levothyroxine Sodium (Synthroid) 125 mcg PO ACB [facility] Last Admin: 08/09/16 08:36 Dose: 125 mcg Losartan Potassium (Cozaar) 12.5 mg PO DAILY [facility] Last Admin: 08/09/16 11:25 Dose: Not Given Metformin HCl (Glucophage) 500 mg PO BID [facility] Last Admin: 08/09/16 17:20 Dose: Not Given Metronidazole (Flagyl) 500 mg PO Q8 [facility] PRN Reason: Protocol Stop: 08/13/16 17:31 Last Admin: 08/09/16 21:12 Dose: Not Given Ondansetron HCl (Zofran Inj) 4 mg IVP Q4H PRN PRN Reason: Nausea/Vomiting Last Admin: 08/09/16 04:23 Dose: 4 mg Potassium Chloride (K-Dur 20 Meq Er Tab) 20 meq PO DAILY [facility] Last Admin: 08/09/16 11:22 Dose: Not Given Repaglinide (Prandin) 2 mg PO AC [facility] Last Admin: 08/09/16 17:20 Dose: Not Given Risperidone (Risperdal Oral Soln) 1 mg PO HS [facility] PRN Reason: Protocol Last Admin: 08/09/16 04:30 Dose: 1 mg - Labs Labs: 08/09/16 07:30 - Constitutional Appears: Non-toxic, No Acute Distress - Head Exam Head Exam: NORMAL INSPECTION - Respiratory Exam Respiratory Exam: Decreased Breath Sounds - Cardiovascular Exam Cardiovascular Exam: +S1, +S2 - GI/Abdominal Exam GI & Abdominal Exam: Soft. absent: Tenderness Assessment and Plan - Assessment and Plan (Free Text) Plan: Assessment Healthcare-associated pneumonia, right middle lobe history of bilateral healthcare-associated pneumonia in this patient chronic heart failure S/P acute cholecystitis, S/P laparoscopic cholecystectomy CAD with chronic CHF DM HTN history of migraines bipolar disorder Plan continue Doxycycline, Cefepime and Flagyl, to complete a 4-7 day course Will continue to monitor clinically
[2016-08-10] MEDS: Cefepime 1gm in NS 100ml 1 GM/100 ML BAG IVPB SCH ×2 (06:30→13:04)
[2016-08-10] MEDS: Insulin Reg-LOW-Coverage SC SCH ×4 (07:56→21:48)
[2016-08-10] MEDS: Levothyroxine 125 MCG TAB PO SCH (08:11)
[2016-08-10] MEDS: Insulin Detemir 100 units/ml Vial (Levemir) SC SCH ×2 (10:20→17:21)
[2016-08-10] MEDS: Potassium Chloride 20 mEq ER Tab PO SCH (10:24)
[2016-08-10] MEDS: Ciprofloxacin/Dexamethasone OTIC SUSP AU SCH ×2 (10:24→17:21)
--- NOTE | 2016-08-10 12:20 | PN ---
DATE: 08/09/2016 The patient wants to go home. The patient is currently on IV antibiotics. Refused upper endoscopy b ecause of her severe dysphagia. She has pneumonia with recurrent admission; it is healthcare-associa eric pneumonia. The patient otherwise seems stable, but currently cannot go home with these current m edications. Refused endoscopy and she does not want to stay in the hospital. PHYSICAL EXAMINATION: VITAL SIGNS: Temperature 97.7, heart rate 109, blood pressure 110/68, respirations 20, saturation 98 %. HEAD AND NECK: Normal. No JVD, no thyromegaly. CHEST: There are a few rhonchi in both lung bases with diminished breath sounds bilaterally, CARDIAC: First and second sounds are normal. ABDOMEN: Soft, nontender. EXTREMITIES: Mild edema. NEUROLOGIC: Normal. LABORATORY DATA: She refused blood work. Her sugar runs 100-250 range. Refused medications and non compliant with regimens. IMPRESSION AND PLAN: 1. Healthcare-associated pneumonia with recurrent admission to the hospital. Continue cefepime. Co ntinue current treatment as per ID. 2. Chronic obstructive pulmonary disease, congestive heart failure. Continue Lasix, continue potass ium, continue inhaled bronchodilators as per workday consultant. She seems stable. 3. Diarrhea. The patient currently getting Flagyl; however, she is also getting doxycycline and Max ipime 1 gram IV q. 8. Will continue current treatments. Diarrhea seems stable. 4. Continue Cipro for left ear. 5. Congestive heart failure, nonischemic cardiomyopathy. Continue Cozaar. Continue Eliquis 5 mg b. i.d. for recurrent clotting and hypercoagulable state. Continue potassium 20, Lanoxin, Lasix 40 IV d aily. Will follow up clinically. 6. The patient has a history of depression and schizophrenia, schizoaffective disorder. Continue Ri sperdal as per psychiatrist. The patient currently also getting Xanax 0.25 mg b.i.d. PLAN: Continue current therapy in addition to Tenormin 12.5 mg b.i.d. Follow up clinically. Monito r blood pressure and vitals. Follow up with the sql report developer and other specialists. The patient adv ised to sign against medical advice if she does not to follow recommendation by other consultants. Richardson Roman MD cc: [id number] TT: 08/10/2016 12:20:15 Confirmation # [id number] Dictation # [id number] mn
--- NOTE | 2016-08-10 12:47 | PN ---
DATE: 08/10/2016 The patient is in room 575, bed 1. REASON FOR CONSULTATION AND FOLLOWUP: Cardiac evaluation, CHF, mitral regurg, admitted with shortnes s of breath, ringing in the ear. HISTORY OF PRESENT ILLNESS: The patient known case of CHF and mitral regurgitation, admitted with ri nging in the ears, shortness of breath and also some swelling on the legs. The patient now feels bet ter. Denies any chest pain, shortness of breath or palpitations. Leg swelling has also improved. PHYSICAL EXAMINATION: VITAL SIGNS: Blood pressure 103/68, respirations 20, pulse 101, temperature 97.4. HEAD: Normocephalic. EYES: Pupils normal. Conjunctivae normal. NOSE AND THROAT: Normal. NECK: JVP low. Carotids equal. THORAX: AP diameter normal. LUNGS: Clear. CARDIOVASCULAR: S1, S2, pansystolic murmur. ABDOMEN: Soft, nontender, no organomegaly. EXTREMITIES: No clubbing, no cyanosis. LABORATORY DATA: WBC 6.6, hemoglobin 12.7, hematocrit 37.7, platelet 291. Sodium 131, potassium 4.6 , BUN 15, creatinine 0.5, random sugar 303. AST 43, ALT 59. DIAGNOSES: Congestive heart failure, mitral regurgitation, tricuspid regurgitation, cardiomyopathy, history of lymphoma, status post chemotherapy, nonischemic cardiomyopathy, status post cardiac cathet erization, nonobstructive coronary artery disease in the past, history of deep vein thrombosis, left upper extremity. PLAN: We will continue present therapy. We will check digoxin level and TSH level. We will continu e to follow with you. Mau Rivera MD cc: [id number] TT: 08/10/2016 12:47:00 Confirmation # [id number] Dictation # [id number] jose
[2016-08-10] MEDS: Digoxin 125 mcg (0.125 mg) Tab PO SCH (13:04)
[2016-08-10 13:05] VITALS: PULSE 100
--- NOTE | 2016-08-10 14:46 | PN ---
DATE: 08/10/2016 REFERRING PHYSICIAN: Dr. Roman. SUBJECTIVE: She is sitting up in a chair. No headache, no rhinitis. No chest pain. No nausea, no vomiting, no diarrhea. Decreased leg swelling, but anxious. OBJECTIVE: GENERAL: No acute distress. VITAL SIGNS: Temp is 98, heart rate is 100, respiratory rate is 20, blood pressure 146/95. Pulse ox 98% on room air. HEENT: Moist mucous membrane. No ulcer or thrush noted. NECK: Supple. No JVD. LUNGS: Have decreased breath sounds at the bases. HEART: S1, S2. ABDOMEN: Soft, nontender. No organomegaly. EXTREMITIES: There is trace edema. NEUROLOGIC: Awake, alert, follows simple command. MEDICATIONS: She is on Cipro Otic drop, Cozaar 12.5 mg daily, doxycycline 100 mg twice a day, Eliqui s 5 mg twice a day, Flagyl 500 mg q. 8 hours, metformin 500 mg twice a day, insulin coverage, potassi um 20 mEq daily, digoxin 0.125 mg daily, Lasix 40 mg daily, Levemir 10 units subQ b.i.d., cefepime 1 g IV q. 8 hours, Prandin 2 mg a.c., Risperdal 1 mg at bedtime, Robitussin 5 mL q. 6 hours p.r.n., Syn throid 125 mg daily, Tenormin 12.5 mg twice a day, Xanax 0.25 mg twice a day and Zofran on a p.r.n. b asis. LABORATORY DATA: Reviewed. Blood sugar is 303. MICROBIOLOGY: Blood culture has been negative. IMPRESSION AND PLAN: Cardiomyopathy, pleural effusion, recurrent heart failure, chronic obstructive lung disease, bipolar disorder, history of lymphoma, diabetes. From pulmonary point of view, she is doing well. Continue diuretics, fluid restriction, fall precaution, gastric prophylaxis and sleep ap talat precaution. Thank you, and will follow with you. Mau More MD cc: [phone] TT: 08/10/2016 14:46:34 Confirmation # [id number] Dictation # [id number]
--- NOTE | 2016-08-10 19:05 | PN ---
DATE: 08/10/2016 Seen and examined at the bedside earlier today. She is not complaining of any difficulty swallowing. She is tolerating the food, but continues to complain of a dry mouth. No reports of any acute over night events. VITAL SIGNS: Temperature is 97.4, blood pressure 146/95, pulse rate is 100, respirations 20, 98% on room air. LABORATORIES: Noted today is POC glucose at 303. PHYSICAL EXAMINATION: HEENT: Sclera is anicteric. NECK: Supple. CARDIAC: S1, S2. LUNGS: Clear. ABDOMEN: With bowel sounds, soft, nontender, no organomegaly. EXTREMITIES: Looks like improving edema. NEUROLOGIC: Awake, alert, oriented. ASSESSMENT: The patient originally complaining of difficulty swallowing, but states it is more of a dry mouth. She is denying dysphagia. She is tolerating oral intake. The patient refused endoscopic evaluation. She is here for pneumonia. She has history of cardiomyopathy, gastroparesis, schizophr enia, cholecystectomy. PLAN: She was noted to have elevated liver enzymes. We will recheck again tomorrow. Continue curre nt treatment. She is on her Eliquis. She is getting IV antibiotics of Maxipime and doxycycline. Lynette dugan is also on Flagyl. Continue her soft diet. The patient was seen and case discussed with Dr. Quigley. Faye Pricees HAWK cc: [id number] TT: 08/10/2016 19:04:55 Confirmation # [id number] Dictation # [id number]
--- NOTE | 2016-08-10 19:40 | CP.PCM.PN ---
Subjective - Date & Time of Evaluation Date of Evaluation: 08/10/16 Time of Evaluation: 10:45 - Subjective Subjective: Comfortable in bed, breathing better, no fevers overnight. Objective - Vital Signs/Intake and Output Vital Signs (last 24 hours): Temp Pulse Resp BP Pulse Ox 97 F L 110 H 20 122/83 98 08/10/16 16:00 08/10/16 16:00 08/10/16 16:00 08/10/16 16:00 08/10/16 16:00 Intake and Output: 08/10/16 08/11/16 18:59 06:59 Intake Total 540 Balance 540 - Medications Medications: Current Medications Alprazolam (Xanax) 0.25 mg PO BID [facility] PRN Reason: Protocol Stop: 08/14/16 23:31 Last Admin: 08/10/16 17:20 Dose: 0.25 mg Apixaban (Eliquis) 5 mg PO BID [facility] PRN Reason: Protocol Last Admin: 08/10/16 17:20 Dose: 5 mg Atenolol (Tenormin) 12.5 mg PO BID [facility] Last Admin: 08/10/16 17:20 Dose: 12.5 mg Ciprofloxacin/Dexamethasone (Ciprodex Otic) 1 drop AU BID [facility] Stop: 08/13/16 18:01 Last Admin: 08/10/16 17:21 Dose: Not Given Digoxin (Lanoxin) 0.125 mg PO 1400 [facility] Last Admin: 08/10/16 13:04 Dose: 0.125 mg Furosemide (Lasix) 40 mg IVP DAILY [facility] Last Admin: 08/10/16 10:20 Dose: 40 mg Guaifenesin/Dextromethorphan (Robitussin Dm) 5 ml PO Q6H PRN PRN Reason: Cough Last Admin: 08/07/16 21:27 Dose: 5 ml Insulin Detemir (Levemir) 10 unit SC BID [facility] Last Admin: 08/10/16 17:21 Dose: Not Given Insulin Human Regular (Humulin R Low) 0 units SC ACHS [facility] PRN Reason: Protocol Last Admin: 08/10/16 17:20 Dose: 4 units Levothyroxine Sodium (Synthroid) 125 mcg PO ACB [facility] Last Admin: 08/10/16 08:11 Dose: 125 mcg Losartan Potassium (Cozaar) 12.5 mg PO DAILY [facility] Last Admin: 08/10/16 10:24 Dose: 12.5 mg Metformin HCl (Glucophage) 500 mg PO BID [facility] Last Admin: 08/10/16 17:21 Dose: Not Given Ondansetron HCl (Zofran Inj) 4 mg IVP Q4H PRN PRN Reason: Nausea/Vomiting Last Admin: 08/10/16 01:55 Dose: 4 mg Potassium Chloride (K-Dur 20 Meq Er Tab) 20 meq PO DAILY [facility] Last Admin: 08/10/16 10:24 Dose: 20 meq Repaglinide (Prandin) 2 mg PO AC [facility] Last Admin: 08/10/16 17:22 Dose: Not Given Risperidone (Risperdal Oral Soln) 1 mg PO HS [facility] PRN Reason: Protocol Last Admin: 08/10/16 01:55 Dose: 1 mg - Labs Labs: 08/09/16 07:30 - Constitutional Appears: Non-toxic, No Acute Distress - Head Exam Head Exam: NORMAL INSPECTION - ENT Exam ENT Exam: Mucous Membranes Moist - Neck Exam Neck Exam: absent: Lymphadenopathy, Meningismus - Respiratory Exam Respiratory Exam: Decreased Breath Sounds - Cardiovascular Exam Cardiovascular Exam: +S1, +S2 - GI/Abdominal Exam GI & Abdominal Exam: Soft. absent: Tenderness Assessment and Plan - Assessment and Plan (Free Text) Plan: Assessment Healthcare-associated pneumonia, right middle lobe, clinically improved history of bilateral healthcare-associated pneumonia in this patient chronic heart failure S/P acute cholecystitis, S/P laparoscopic cholecystectomy CAD with chronic CHF DM HTN history of migraines bipolar disorder Plan completed 4 days of Doxycycline, Cefepime and Flagyl - will d/c antibiotics and observe Will continue to monitor clinically
[2016-08-11] MEDS ORDERED: Alum-Mag Hydrox-Simethicone Susp (30 mL) PO STA (02:20)
--- NOTE | 2016-08-11 02:23 | CP.PCM.PN ---
Subjective - Date & Time of Evaluation Date of Evaluation: 08/11/16 Time of Evaluation: 02:21 - Subjective Subjective: Patient was seen at bedside. Complains of little abdominal pain and asks for mylanta. Also states that she can not sleep . Has no other complaints now. Medical record was reviewed. This 51 year old woman was admitted with difficulty in swallowing,neck pain, HCAP. Has PMH of CHF, non ischemic cardiomyopathy, COPD, lymphoma, IKE, bilateral pleural effusion, cholecystectomy. Objective - Vital Signs/Intake and Output Vital Signs (last 24 hours): Temp Pulse Resp BP Pulse Ox 97 F L 110 H 20 122/83 98 08/10/16 16:00 08/10/16 16:00 08/10/16 16:00 08/10/16 16:00 08/10/16 16:00 Intake and Output: 08/10/16 08/11/16 18:59 06:59 Intake Total 540 780 Balance 540 780 - Medications Medications: Current Medications Al Hydrox/Mg Hydrox/Simethicone (Maalox Plus 30 Ml) 30 ml PO STAT [facility] Stop: 08/11/16 02:21 Alprazolam (Xanax) 0.25 mg PO BID [facility] PRN Reason: Protocol Stop: 08/14/16 23:31 Last Admin: 08/10/16 17:20 Dose: 0.25 mg Alprazolam (Xanax) 0.25 mg PO STAT [facility] PRN Reason: Protocol Stop: 08/11/16 02:21 Apixaban (Eliquis) 5 mg PO BID [facility] PR[facility] Reason: Protocol Last Admin: 08/10/16 17:20 Dose: 5 mg Atenolol (Tenormin) 12.5 mg PO BID [facility] Last Admin: 08/10/16 17:20 Dose: 12.5 mg Ciprofloxacin/Dexamethasone (Ciprodex Otic) 1 drop AU BID [facility] Stop: 08/13/16 18:01 Last Admin: 08/10/16 17:21 Dose: Not Given Digoxin (Lanoxin) 0.125 mg PO 1400 [facility] Last Admin: 08/10/16 13:04 Dose: 0.125 mg Furosemide (Lasix) 40 mg IVP DAILY [facility] Last Admin: 08/10/16 10:20 Dose: 40 mg Guaifenesin/Dextromethorphan (Robitussin Dm) 5 ml PO Q6H PRN PRN Reason: Cough Last Admin: 08/07/16 21:27 Dose: 5 ml Insulin Detemir (Levemir) 10 unit SC BID [facility] Last Admin: 08/10/16 17:21 Dose: Not Given Insulin Human Regular (Humulin R Low) 0 units SC ACHS [facility] PRN Reason: Protocol Last Admin: 08/10/16 21:48 Dose: 2 units Levothyroxine Sodium (Synthroid) 125 mcg PO ACB [facility] Last Admin: 08/10/16 08:11 Dose: 125 mcg Losartan Potassium (Cozaar) 12.5 mg PO DAILY [facility] Last Admin: 08/10/16 10:24 Dose: 12.5 mg Metformin HCl (Glucophage) 500 mg PO BID [facility] Last Admin: 08/10/16 17:21 Dose: Not Given Ondansetron HCl (Zofran Inj) 4 mg IVP Q4H PRN PRN Reason: Nausea/Vomiting Last Admin: 08/10/16 01:55 Dose: 4 mg Potassium Chloride (K-Dur 20 Meq Er Tab) 20 meq PO DAILY [facility] Last Admin: 08/10/16 10:24 Dose: 20 meq Repaglinide (Prandin) 2 mg PO AC [facility] Last Admin: 08/10/16 17:22 Dose: Not Given Risperidone (Risperdal Oral Soln) 1 mg PO HS [facility] PRN Reason: Protocol Last Admin: 08/10/16 21:41 Dose: 1 mg - Labs Labs: 08/09/16 07:30 - Constitutional Appears: Well, No Acute Distress - Head Exam Head Exam: ATRAUMATIC, NORMAL INSPECTION, NORMOCEPHALIC - Eye Exam Eye Exam: Normal appearance - ENT Exam ENT Exam: Normal External Ear Exam - Neck Exam Neck Exam: Normal Inspection - Respiratory Exam Respiratory Exam: NORMAL BREATHING PATTERN - Cardiovascular Exam Cardiovascular Exam: absent: JVD - GI/Abdominal Exam GI & Abdominal Exam: absent: Distended - Rectal Exam Rectal Exam: Deferred - Extremities Exam Extremities Exam: Normal Inspection - Back Exam Back Exam: NORMAL INSPECTION - Neurological Exam Neurological Exam: Alert, Oriented x3 - Psychiatric Exam Psychiatric exam: Normal Affect, Normal Mood - Skin Skin Exam: Normal Color Assessment and Plan - Assessment and Plan (Free Text) Assessment: A/P:Abdominal pain. Anxiety. COPD. CHF. HCAP. Lymphoma. Continue present management. Mylanta 30 CC PO x 1. Xanax 0.25 mg PO x 1.
[2016-08-11] MEDS: Levothyroxine 125 MCG TAB PO SCH (08:11)
[2016-08-11 08:35] VITALS: BP 120/84; PULSE 120; TEMP 97.3; O2SAT 97
--- NOTE | 2016-08-11 09:10 | DS ---
The patient is comfortable. She refused any IV antibiotic, any labs and endoscopy. The patient will be discharged ____. The patient cannot go home because of residence problem, but otherwise she will be discharged today. PHYSICAL EXAMINATION: VITAL SIGNS: Temperature 97.4, heart rate 101, blood pressure 103/68, respirations 20, saturating 98 % on room air. HEAD AND NECK: Normal. No JVD, no thyromegaly. CHEST: Clear, good air entry. CARDIAC: First and second sounds are normal. ABDOMEN: Soft, nontender. EXTREMITIES: Mild edema. NEUROLOGIC: Normal. LABORATORY DATA: No labs. DISCHARGE DIAGNOSES: 1. Pneumonia, healthcare-associated pneumonia - refused treatment. 2. Nonischemic cardiomyopathy. 3. Hypothyroidism. 4. Hypercoagulable state with history of deep venous thrombosis. 5. Hypertension. 6. Diabetes, type 2, using insulin. PLAN: Discharge the patient and back to her home meds. In addition to underlying psych problem, his tory of schizoaffective disorder. Will give the patient Risperdal oral solution plus Xanax p.r.n. DISCHARGE MEDICATIONS Ciprodex for her left ear, Cozaar 12.5 mg p.o. daily, Eliquis 5 mg b.i.d., Gluc ophage 500 b.i.d., K-Dur 20, Lasix 40, Lanoxin 0.125 mg p.o. daily, Levemir 10 units b.i.d., Prandin 2 mg p.o. q.a.c. meals, Risperdal 1 mg solution, Robitussin, Synthroid 125 mcg once a day, Tenormin 1 2.5 mg b.i.d., Xanax 0.25 mg b.i.d. p.r.n. The patient advised to follow up in office within a week or 2. Compliance is a great concern. Advis ed to follow up with cardiology as outpatient and as GI also as outpatient. Richardson Roman MD cc: [phone] TT: 08/11/2016 08:53:34 pa
--- NOTE | 2016-08-11 15:44 | PN ---
DATE: 08/11/2016 The patient is in bed in no acute distress, nontoxic. PHYSICAL EXAMINATION: VITAL SIGNS: Temperature is 98. Blood pressure is 120/70, respiratory rate 16. HEENT: Unremarkable. NECK: Supple. LUNGS: Decreased breath sounds. HEART: Normal S1, S2. ABDOMEN: Soft. LABORATORY EXAMINATION: Reviewed. ASSESSMENT AND PLAN: A 51-year-old who was seen earlier this morning with a healthcare-associated pn eumonia, right middle lobe, improved and complete 4 days of ____, cefepime and Flagyl. Today will be the fifth day and that is completed and for possible discharge today. Yehuda Valentino MD cc: [id number] TT: 08/11/2016 15:44:15 Confirmation # [id number] Dictation # [id number]
== END 2016-08-11 10:00 | disposition home or self-care (01) | DRG 541 ==
LOC: ED 16:07 → ERH 18:57 → 2RNO 22:23 → OBSVTOIN 08-06 13:36 → 5RSO 08-07 18:47
PROVIDERS: ADMIT Internal Medicine; ATTEND Internal Medicine
DX: J44.0 Chronic obstructive pulmonary disease with (acute) lower respiratory infection (principal); J18.9 Pneumonia, unspecified organism; I11.0 Hypertensive heart disease with heart failure; I50.23 Acute on chronic systolic (congestive) heart failure; I42.9 Cardiomyopathy, unspecified; E11.43 Type 2 diabetes mellitus with diabetic autonomic (poly)neuropathy; D68.59 Other primary thrombophilia; I27.2 Other secondary pulmonary hypertension; K31.84 Gastroparesis; E11.65 Type 2 diabetes mellitus with hyperglycemia; E87.1 Hypo-osmolality and hyponatremia; I08.1 Rheumatic disorders of both mitral and tricuspid valves; F25.9 Schizoaffective disorder, unspecified; E03.9 Hypothyroidism, unspecified; G47.33 Obstructive sleep apnea (adult) (pediatric); Y95 Nosocomial condition; E78.5 Hyperlipidemia, unspecified; I25.10 Atherosclerotic heart disease of native coronary artery without angina pectoris; F31.9 Bipolar disorder, unspecified; G43.909 Migraine, unspecified, not intractable, without status migrainosus; R19.7 Diarrhea, unspecified; R68.2 Dry mouth, unspecified; R13.10 Dysphagia, unspecified; F41.9 Anxiety disorder, unspecified; Z85.72 Personal history of non-Hodgkin lymphomas; Z92.21 Personal history of antineoplastic chemotherapy; Z79.01 Long term (current) use of anticoagulants; Z86.718 Personal history of other venous thrombosis and embolism; Z90.49 Acquired absence of other specified parts of digestive tract; Z87.891 Personal history of nicotine dependence

== ENCOUNTER 2016-08-29 15:14 | Inpatient (IN) | payer MEDICAID ==
[2016-08-29 15:18] VITALS: BMI 29.6
--- NOTE | 2016-08-29 16:01 | ED PDOC ---
Arrival/HPI - General Chief Complaint: Lower Extremity Problem/Injury Time Seen by Provider: 08/29/16 15:23 Historian: Patient - History of Present Illness Narrative History of Present Illness (Text): 08/29/16 15:48 A 51 year old female, whose past medical history includes diabetes, COPD, CHF on lasix, hypothyroidism and bipolar disorder, presents to the emergency department complaining of worsening bilateral lower extremity swelling for the past few days. She says it goes up to her upper legs. She was at [facility] yesterday and was admitted for quite sometime there but didn't want to stay and left today. She is unsure if she got discharged or was signed out AMA. She wanted to come to [facility] for better care. Patient denies any fever, chills, nausea, vomiting, abdominal pain, chest pain, shortness of breath or any other complaints. Patient has a history of DVT and PE. PMD: Dr. Roman Time/Duration: Other (few days) Symptom Course: Worsening Quality: Other Context: Other Past Medical History - Provider Review Nursing Documentation Reviewed: Yes - Past History Past History: No Previous - Infectious Disease Hx of Infectious Diseases: None - Tetanus Immunization Tetanus Immunization: Unknown - Cardiac Hx Cardiac Disorders: Yes Hx Congestive Heart Failure: Yes Hx Hypertension: Yes Hx Pacemaker: No Hx Peripheral Edema: Yes - Pulmonary Hx Respiratory Disorders: Yes Hx Chronic Obstructive Pulmonary Disease (COPD): Yes Hx Pneumonia: Yes Hx Pulmonary Embolism: Yes - Neurological Hx Neurological Disorder: Yes Hx Migraine: Yes Hx Seizures: No - HEENT Hx HEENT Disorder: No - Renal Hx Renal Disorder: No - Endocrine/Metabolic Hx Endocrine Disorders: Yes Hx Hypothyroidism: Yes - Hematological/Oncological Hx Blood Disorders: Yes Hx Lymphoma: Yes - Integumentary Hx Dermatological Disorder: No Hx Basal Cell Carcinoma: No Hx Eczema: No Hx Melanoma: No Hx Psoriasis: No Hx Squamous Cell Carcinoma: No - Musculoskeletal/Rheumatological Hx Musculoskeletal Disorders: Yes Hx Back Pain: Yes - Gastrointestinal Hx Crohn's Disease: No Hx Diverticulitis: Yes - Genitourinary/Gynecological Hx Sexually Transmitted Diseases: No - Psychiatric Hx Anxiety: Yes Hx Bipolar Disorder: Yes Hx Depression: Yes Hx Substance Use: No - Past Surgical History Past Surgical History: No Previous - Surgical History Hx Appendectomy: No Hx Cholecystectomy: Yes Hx Coronary Stent: No - Anesthesia Hx Anesthesia: Yes Hx Anesthesia Reactions: No Hx Malignant Hyperthermia: No - Suicidal Assessment Feels Threatened In Home Enviroment: No Family/Social History - Physician Review Nursing Documentation Reviewed: Yes Family/Social History: No Known Family HX Smoking Status: Former Smoker Hx Alcohol Use: No Hx Substance Use: No Substance used: cocaine Hx Substance Use Treatment: Yes (NARCOTICS ANONYMOUS) Allergies/Home Meds Allergies/Adverse Reactions: Allergies No Known Allergies Allergy (Verified 08/29/16 15:17) Home Medications: Home Meds Medication Instructions Recorded Confirmed Furosemide [Lasix] 40 mg IVP DAILY 08/23/16 08/23/16 Insulin Human Regular [HumuLIN R] See Protocol SC ACHS 08/23/16 08/23/16 Review of Systems - Physician Review All systems were reviewed & negative as marked: Yes - Review of Systems Constitutional: absent: Fevers, Night Sweats Respiratory: absent: SOB Cardiovascular: absent: Chest Pain Gastrointestinal: absent: Abdominal Pain, Nausea, Vomiting Musculoskeletal: Other (Bilateral lower extremity swelling, Left breast swelling ) Physical Exam Vital Signs Reviewed: Yes Vital Signs Temp Pulse Resp BP Pulse Ox 08/29/16 20:04 109 H 18 112/74 98 08/29/16 18:58 100 H 18 107/55 L 94 L 08/29/16 18:57 107/55 L 08/29/16 17:34 105 H 18 94 L 08/29/16 15:20 97.6 F 110 H 18 87/59 L 92 L Temperature: Afebrile Blood Pressure: Hypotensive Pulse: Tachycardic Respiratory Rate: Normal Appearance: Positive for: Well-Appearing, Non-Toxic, Comfortable Pain Distress: None Mental Status: Positive for: Alert and Oriented X 3 - Systems Exam Head: Present: Atraumatic, Normocephalic Pupils: Present: PERRL Extroacular Muscles: Present: EOMI Conjunctiva: Present: Normal Mouth: Present: Moist Mucous Membranes Neck: Present: Normal Range of Motion Respiratory/Chest: Present: Clear to Auscultation, Good Air Exchange. No: Respiratory Distress, Accessory Muscle Use Cardiovascular: Present: Regular Rate and Rhythm, Normal S1, S2. No: Murmurs Abdomen: Present: Normal Bowel Sounds. No: Tenderness, Distention, Peritoneal Signs Back: Present: Normal Inspection Upper Extremity: Present: Normal Inspection. No: Cyanosis, Edema Lower Extremity: Present: Edema (Bilateral lower extremity +2 pitting edema), Neurovascularly Intact, Other (Trace pulses +1). No: CALF TENDERNESS, Erythema , Temperature Abnormalties Neurological: Present: GCS=15, CN II-XII Intact, Speech Normal Skin: Present: Warm, Dry, Normal Color. No: Rashes Psychiatric: Present: Alert, Oriented x 3, Normal Insight, Normal Concentration Medical Decision Making ED Course and Treatment: 08/29/16 15:48 Impression: A 51 year old female with worsening bilateral lower extremity pain. Differential Diagnosis included but are not limited to: Worsening CHF Plan: -- Chest xray -- EKG -- Labs -- Urinalysis -- Lasix -- Reassess and disposition Progress Notes: 08/29/16 16:13 EKG shows sinus tachycardia at 109 BPM with LBBB, with no changes from prior on 07/01/16. Interpreted by me. 08/29/16 17:05 Chest X-ray read and interpreted by me, which shows worsening pleural effusion on right side. 08/29/16 20:59 Patient's BP improved throughout the ED stay. She denied any sob or chest pain in the ED. She is not in respiratory distress though she has diminished breathe sounds on right right. She does say that it feels full on that side by her breast. - Lab Interpretations Lab Results: 08/29/16 17:40 08/29/16 19:42 Lab Results 08/29/16 19:42: Sodium 120 L, Potassium 3.3 L, Chloride 80 L, Carbon Dioxide 31 , Anion Gap 12, BUN 29 H, Creatinine 0.5, Est GFR ( Amer) > 60, Est GFR ( Non-Af Amer) > 60, Random Glucose 146 H, Calcium 9.0, Magnesium 1.5 L, Total Bilirubin 0.9, AST 75 H, ALT 165 H, Alkaline Phosphatase 438 H, Lactate Dehydrogenase 402, Total Creatine Kinase < 20 L, Troponin I 0.02 D, NT-Pro-B Natriuret Pep 4490 H, Total Protein 6.1, Albumin 3.2, Globulin 2.8, Albumin/ Globulin Ratio 1.1 08/29/16 17:40: PT 13.6 H, INR 1.26 H, APTT 26.8 08/29/16 17:40: WBC 11.0 D, RBC 4.78, Hgb 12.0, Hct 35.4 L, MCV 74.1 L, MCH 25.1, MCHC 33.9, RDW 19.6 H, Plt Count 379, MPV 10.0, Gran % 64.9, Lymph % (Auto ) 19.7 L, Mcdonough % (Auto) 13.9 H, Eos % (Auto) 1.1 L, Baso % (Auto) 0.4, Gran # 7.16 H, Lymph # 2.2, Mcdonough # 1.5 H, Eos # 0.1, Baso # 0.04 08/29/16 17:30: Urine Color Yellow, Urine Appearance Clear, Urine pH 6.0, Ur Specific [place] 1.025, Urine Protein Trace H, Urine Glucose (UA) Negative, Urine Ketones Negative, Urine Blood Negative, Urine Nitrate Negative, Urine Bilirubin Negative, Urine Urobilinogen 1.0 H, Ur Leukocyte Esterase Small H, Urine RBC 2 - 5, Urine WBC 2 - 5, Ur Epithelial Cells 1 - 3, Calcium Oxalate Crystal Occ, Urine Bacteria Large I have reviewed the lab results: Yes Interpretation: Abnormal lab values (potassium low and replaced with PO potassium. Sodium low.) - RAD Interpretation Radiology Orders: 08/29/16 15:58 CHEST PORTABLE [RAD] Stat - Medication Orders Current Medication Orders: Ondansetron HCl (Zofran Inj) 4 mg IVP Q4H PRN PRN Reason: Nausea/Vomiting Discontinued Medications Furosemide (Lasix) 40 mg IVP STAT [facility] Stop: 08/29/16 15:59 Last Admin: 08/29/16 18:57 Dose: Not Given Non-Admin Reason: BP Parameters Not Met Potassium Chloride (K-Dur 20 Meq Er Tab) 40 meq PO STAT [facility] Stop: 08/29/16 20:20 Last Admin: 08/29/16 20:40 Dose: 40 meq - Scribe Statement The provider has reviewed the documentation as recorded by the Gaby Ulloa Provider Scribe Attestation: All medical record entries made by the Scribe were at my direction and personally dictated by me. I have reviewed the chart and agree that the record accurately reflects my personal performance of the history, physical exam, medical decision making, and the department course for this patient. I have also personally directed, reviewed, and agree with the discharge instructions and disposition. Disposition/Present on Arrival - Present on Arrival Any Indicators Present on Arrival: Yes History of DVT/PE: No History of Uncontrolled Diabetes: Yes Urinary Catheter: No History of Decub. Ulcer: No History Surgical Site Infection Following: None - Disposition Have Diagnosis and Disposition been Completed?: Yes Diagnosis: Pleural effusion, Cardiomyopathy, CHF (congestive heart failure) Disposition Time: 20:59 Patient Plan: Observation Condition: FAIR
[2016-08-29 17:52] LABS: ADD MANUAL DIFF? NO
[2016-08-29 17:58] LABS: URINE BILIRUBIN NEGATIVE (NEGATIVE); URINE BLOOD NEGATIVE (NEGATIVE); URINE GLUCOSE (UA) NEGATIVE (NEGATIVE); URINE KETONE NEGATIVE (NEGATIVE); URINE LEUKOCYTE ESTERASE SMALL Leu/uL (NEGATIVE); URINE PROTEIN TRACE mg/dL (<30 mg/dL)
[2016-08-29 18:00] LABS: URINE APPEARANCE CLEAR (CLEAR); URINE COLOR YELLOW (YELLOW)
[2016-08-29 18:00] LABS: BASO # 0.04 K/mm3 (0.0-2.0); BASO % 0.4 % (0.0-3.0); EOS # 0.1 (0.0-0.7); EOS % 1.1 % (1.5-5.0); GRAN # 7.16 (1.4-6.5); GRAN % 64.9 % (50.0-68.0); HEMATOCRIT 35.4 % (36.0-48.0); LYMPH # 2.2 (1.2-3.4); LYMPH % 19.7 % (22.0-35.0); MEAN CELL VOLUME 74.1 fL (80.0-105.0); MEAN CORPUSCULAR HEMOGLOBIN 25.1 pg (25.0-35.0); MEAN CORPUSCULAR HGB CONC 33.9 g/dl (31.0-37.0); MONO # 1.5 (0.1-0.6); MONO % 13.9 % (1.0-6.0); PLATELET COUNT 379 10^3/uL (120.0-450.0); RED CELL DISTRIBUTION WIDTH 19.6 % (11.5-14.5)
[2016-08-29 18:18] LABS: INR 1.26 (0.93-1.08); PARTIAL THROMBOPLASTIN TIME 26.8 Seconds (23.7-30.8)
[2016-08-29 18:49] LABS: URINE BACTERIA LARGE (NEG); URINE CALCIUM OXALATE CRYSTALS OCC /hpf
[2016-08-29 20:07] LABS: ALB/GLOB RATIO 1.1 (1.1-1.8); ALKALINE PHOSPHATASE 438 U/L (38-133); ALT/SGPT 165 U/L (7-56); AST/SGOT 75 U/L (15-39); BILIRUBIN,TOTAL 0.9 mg/dL (0.2-1.3); BLOOD UREA NITROGEN 29 mg/dL (7-21); CARBON DIOXIDE 31 mmol/L (21-33); CHLORIDE 80 mmol/L (98-107); GFR AFRICAN-AMERICAN > 60; GLUCOSE,RANDOM 146 mg/dL (70-110); MAGNESIUM 1.5 mg/dL (1.7-2.2); POTASSIUM 3.3 mmol/L (3.6-5.0); SODIUM 120 mmol/L (132-148); TOTAL PROTEIN 6.1 g/dL (5.8-8.3)
[2016-08-29 20:18] LABS: TROPONIN I 0.02 ng/mL
[2016-08-29] MEDS ORDERED: Potassium Chloride 20 mEq ER Tab PO STA (20:19)
[2016-08-29] MEDS ORDERED: Magnesium Oxide 400 mg Tab UD PO STA (22:13)
[2016-08-29] MEDS ORDERED: guaiFENesin DM 200 mg-20 mg/10 ml UD PO STA (22:54)
[2016-08-29] MEDS ORDERED: Simethicone 80 mg Chewtab PO PRN (23:57)
[2016-08-30] MEDS: Levalbuterol 0.63 MG/3 ML Inhal Soln UD IH SCH ×5 (01:15→21:10)
--- NOTE | 2016-08-30 08:15 | RAD ---
HISTORY: leg swelling COMPARISON: 08/05/2016 FINDINGS: LUNGS: No definite consolidation. PLEURA: Bilateral pleural effusion, slightly increased on the right on prior examination. Stable left pleural effusion. No pneumothorax. CARDIOVASCULAR: Normal. OSSEOUS STRUCTURES: No significant abnormalities. VISUALIZED UPPER ABDOMEN: Normal. OTHER FINDINGS: None. IMPRESSION: Bilateral pleural effusion, slightly increased on the right side since 08/05/2016.
[2016-08-30] MEDS: Levothyroxine 125 MCG TAB PO SCH (08:32)
[2016-08-30] MEDS ORDERED: Magnesium Sulfate 2 GM in Sodium Chloride 0.9% 100 ML IVPB ONE (08:55)
[2016-08-30] MEDS ORDERED: Potassium Chloride 20 mEq ER Tab PO ONE (08:55)
[2016-08-30] MEDS: Magnesium Oxide 400 mg Tab UD PO SCH ×2 (09:12→17:40)
--- NOTE | 2016-08-30 09:20 | HP ---
The patient seen in Emergency Room. She complained of leg swelling, short of breath. She was recent ly signed out from [facility] and she came into [place]. HISTORY OF PRESENT ILLNESS: This is a 51-year-old female, has been having nonischemic cardiomyopathy , bilateral pleural effusions, had gallstones removed recently within 6 weeks ago. She does have rec urrent pneumonia, atelectasis. She came in because of short of breath, increased leg edema, although she was recently discharged from the hospital. The patient also has a significant psych history wit h chronic anxiety, schizophrenia. The patient also has social issues, place to live, having problem with that and needs to be evaluated from the social point, from the social status. PAST MEDICAL HISTORY: As I mentioned above, recently have questionable liver mass on MRI, needs eval uations, COPD, bilateral pleural effusions, nonischemic cardiomyopathy, EF is low, history of DVT, hi story of PE, recently diagnosed chronic PE on Eliquis 5 mg b.i.d., edema lower extremities, abnormal liver functions test, history of recent cholecystectomy, schizophrenia. ALLERGIES: No known allergy. MEDICATIONS: She does take a lot including risperidone, Carafate, Mylicon, Januvia, Protonix and als o metoprolol 25 b.i.d., metformin b.i.d. 1000, Synthroid 125 mcg every day, Xopenex nebulizers, insul in, Levemir 10 units, Lasix 40 IV, Vasotec 2.5, aspirin 81, Maalox and Xanax 0.25 q. 12. REVIEW OF SYSTEMS: As in present illness. PHYSICAL EXAMINATION: The patient was seen in Emergency Room on the 08/29/2016 and it shows: VITAL SIGNS: Temperature 97.6, heart rate is 100, blood pressure 107/55, respirations 18, saturation 94% on room air. HEAD AND NECK: Normal. No JVD, no thyromegaly. CHEST: Diminished breath sounds bilaterally. CARDIAC: First sound, second sound normal. ABDOMEN: Obese, nontender. EXTREMITIES: Bilateral leg edema, seems better than before, mild/moderate edema lower extremities. NEUROLOGIC: She moves all extremities normal. LABORATORY DATA: Shows white count 11, hemoglobin 12, hematocrit 35.4, platelets 379. Her chemistry shows sodium low at 120, potassium 3.3, chloride 80, bicarb 31, BUN 29, creatinine 0.5, blood sugar 146, magnesium 1.5, is low. AST and ALT and alk phos is elevated. Her BNP is 4490. The patient has a urinalysis which was negative. The patient has a PT/INR 1.26 and PTT was normal 26.8. The patient also had chest x-ray, shows bilateral pleural effusion. IMPRESSION AND PLAN: This is a 51-year-old female with nonischemic cardiomyopathy, bilateral pleural effusion, came in with short of breath and leg edema. Also had abnormal liver function tests, quest ionable liver mass. Will admit the patient to the hospital, resume meds, oxygen. Will get a pulmona ry consult for further evaluation, cardiology consult. Possible, patient may need further cardiac wo rkup management because of recurrent admissions with the fluid overload and congestive symptoms . Will maintain Lasix, monitor blood pressure. Also, get a GI consult, evaluation of the liver mass . Also, psychiatry consult because of underlying psych issues. community organization worker to see her social stat us and further placement. Continue current therapy for now. Will follow up on daily basis. Richardson Roman MD cc: [phone] TT: 08/30/2016 09:20:33 en
[2016-08-30 10:22] LABS: BLOOD UREA NITROGEN 23 mg/dL (7-21); CALCIUM 8.8 mg/dL (8.4-10.5); CARBON DIOXIDE 31 mmol/L (21-33); GFR AFRICAN-AMERICAN > 60; POTASSIUM 3.6 mmol/L (3.6-5.0)
[2016-08-30 10:32] LABS: CHLORIDE 76 mmol/L (95-110); SODIUM 118 mmol/L (132-148)
[2016-08-30] MEDS: Milrinone 20mg/100ml D5W 100 ML IV PRN (10:44)
[2016-08-30 10:50] LABS: GLUCOSE,RANDOM 378 mg/dL (70-110)
[2016-08-30] MEDS: Insulin Reg-LOW-Coverage SC SCH ×3 (11:48→21:58)
--- NOTE | 2016-08-30 12:35 | CON ---
DATE: 08/30/2016 HISTORY OF PRESENT ILLNESS: The patient is a 51-year-old female who came to the Emergency Room compl aining of swelling of both lower extremities for several days. The patient had been recently dischar ged or signed out of [facility]. That was yesterday. The patient has a history of multiple medical problems. She has a history of schizophrenia. She has been to this hospital many t imes. She has had psychiatric admissions in the past. PAST MEDICAL HISTORY: Includes diabetes mellitus, COPD, CHF, hypothyroidism. The patient also has a history of a lymphoma, ischemic cardiomyopathy, valvular heart disease, pulmonary hypertension, recu rrent heart failure and possible sleep apnea. The patient's case was discussed with nursing staff. PERSONAL HISTORY: She is on disability for psychiatric problems. She lives alone. Was treated in t he past at [facility], many psychiatric hospitalizations. Most recent ho spitalization was in 04/2016 on this unit. She was placed on Risperdal 1 mg b.i.d. and Klonopin 0.5 mg b.i.d. for schizoaffective disorder. CURRENT LABORATORY DATA: White count is 7000, hemoglobin is 12.0, platelet count 379,000. Her metab olic profile shows sodium 118, potassium 3.6, chloride 76, CO2 of 31, anion gap 15, BUN 23, creatinin e 0.5, random glucose 378. Her BNP is 4490. Troponin I now ____ 0.02. The patient had a urinalysis showing a large amount of bacteria. The patient had a chest x-ray showing bilateral pleural effusio n, increased on the right. REVIEW OF SYSTEMS: She would not cooperate with formal review of systems. She states, "I'm coughing , leave me alone." PHYSICAL EXAMINATION: VITAL SIGNS: Blood pressure 109/60, pulse 118, respiration 20 per minute, the patient is afebrile. CURRENT MEDICATIONS: Include Eliquis, Glucophage, Inderal, K-Dur, Lanoxin, Lasix, Levemir, mag ox, P rimacor, Xopenex, lisinopril, p.r.n. Zofran. PSYCHIATRIC: Her mental status, she is just sitting in chair at her bedside. Intermittently coughin g. Refused to speak to me. Does not want to speak to a psychiatrist. Keeps stating, "Leave me bertha e. I don't wanna talk to you. Go away." The patient appears awake and alert with poor eye contact. IMPRESSION: History of chronic schizoaffective disorder, history of ischemic cardiomyopathy, history of recurrent congestive heart failure. She has bilateral pleural effusions with leg edema. The pat ient has hyponatremia. The patient has history of hypothyroidism, chronic obstructive pulmonary dise ase. PLAN: We will order Risperdal 0.5 mg b.i.d. and 1 mg at bedtime, lorazepam 0.5 mg at bedtime. We wi ll discuss with nursing staff. Will also leave an order for p.r.n. Geodon 10 mg IM q.4 hours p.r.n. for severe agitation. Louie Roach MD cc: [id number] TT: 08/30/2016 12:34:09 Confirmation # [id number] Dictation # [id number] sn
--- NOTE | 2016-08-30 12:46 | CARD ---
APPROVED REPORT EKG Measurement Heart [id number] <Conclusion> Sinus tachycardia Left bundle branch block Abnormal ECG
[2016-08-30] MEDS: Digoxin 250 mcg (0.25 mg) Tab PO SCH (13:47)
--- NOTE | 2016-08-30 14:19 | CON ---
DATE: 08/30/2016 Seen and examined at the bedside this afternoon. REQUEST FOR CONSULTATION: For ? liver mass on MRI. HISTORY OF PRESENT ILLNESS: This is a 51-year-old female who is known to our service. She has a history of COPD, DVT, PE, on Eliquis, schizophrenia and CHF and abnormal liver enzymes, was recently hospitalized in [facility] and signed out AMA and came to [facility]. The patient complains of bilateral lower extremity edema for the past few days as well as she has been coughing. No respiratory distress noted. The patient, on previous admission, had an abdominal ultrasound done back on 08/15/2016 for abdominal pain and noted to have an ovoid echogenic mass in the inferior right hepatic lobe, possible hemangioma. She then had a liver CT scan on 08/18/2016 with liver protocol triple phase and this reported reflux of the IV contrast into the IVC and hepatic vein in the arterial phase, correlate clinically for possible right heart failure, no evidence of discrete enhancing mass lesion in the liver. The liver demonstrated heterogeneous enhancement. The patient denies any nausea, vomiting. No abdominal pain. Denies any symptoms of acid reflux. She is having bowel movements and currently complains of a dry throat. She has a dry cough. No reports of hemoptysis, hematemesis, or bleeding per rectum. PAST MEDICAL HISTORY: As stated above, includes COPD, bilateral pleural effusions, recurrent pneumonia, nonischemic cardiomyopathy, CHF, history of DVT and PE on Eliquis, chronic lower extremity edema, elevated liver enzymes, schizophrenia, diabetes mellitus, pleural effusion, had a thoracentesis. PAST SURGICAL HISTORY: Cholecystectomy. ALLERGIES: No known drug allergies. SOCIAL HISTORY: A former smoker. Denies ETOH. History of cocaine use in the past, none now. FAMILY HISTORY: Noncontributory at this time. MEDICATIONS: Reviewed as per MAR. REVIEW OF SYSTEMS: Systems reviewed with positive findings, see HPI. VITAL SIGNS: Temperature is 97.0, blood pressure is 90/61, pulse rate 111, 19 respiration rate. LABORATORIES: From 08/29/2016 at 5:40 p.m. WBC is 11.0, hemoglobin 12.0, hematocrit 35.4, platelets of 379. PT is 13.6, INR is 1.26, PTT 26.8. Her sodium is 118, potassium is 3.6, chloride is 76, magnesium 1.5, total bilirubin 0.7, AST 75, ALT 165, alkaline phosphatase is 438. BNP is 4490. She had a chest x-ray yesterday and that showed bilateral pleural effusion, slightly increased on the right side since 08/05/2016. PHYSICAL EXAMINATION: HEENT: Sclera is anicteric. NECK: Supple. CARDIAC: S1, S2. LUNG SOUNDS: With decreased breath sounds. I did not hear any rales or wheeze. ABDOMEN: With bowel sounds, soft, nontender on palpation. No rebound or guarding. EXTREMITIES: Bilateral lower extremity edema. NEUROLOGIC: Awake, alert, and oriented. ASSESSMENT/PLAN: A 51-year-old female with bilateral pleural effusions and nonischemic cardiomyopathy, came with shortness of breath and lower extremity edema. The patient is noted to have abnormal liver enzymes. There is a question if there is a liver mass. CT scan is reporting no enhancing mass. History of pulmonary embolism, deep venous thrombosis. The patient has had hepatitis panel done on 08/19/2016 that was negative. Abdominal ultrasound was also recently done and reviewed. This could be related to hepatic congestion as well. We will review the CT scan with radiology. Trend her liver enzymes. She is also noted to have hyponatremia. The patient is on a Primacor drip, is on potassium replacement, is on Lasix and Eliquis. We will continue to follow closely. Thank you for this consult. The patient was seen and case discussed with Dr. Quigley. Faye Doherty HAWK cc: [id number] TT: 08/30/2016 14:18:40 Confirmation # [id number] Dictation # [id number] en MTDD
--- NOTE | 2016-08-30 14:39 | CON ---
DATE: 08/30/2016 REASON FOR CONSULTATION: Cardiac evaluation, shortness of breath, increased leg swelling, bilateral pleural effusion, decompensated congestive heart failure. BRIEF CLINICAL HISTORY: This is a 51-year-old female with a past medical history significant for easton betes, hypertension, COPD, CHF, history of congestive heart failure bipolar disorder, hypothyroidism, mitral regurgitation, tricuspid regurgitation said that she was recently discharged from [place] yes terday or day before, not sure. Came in with a complaint of shortness of breath. Later on, she said she probably but she is not sure she signed out because she said the doctors were not treating there good so came to [facility]. Denies any chest pain, but complains of both legs swelling and shortness of breath. This is one of the multiple admissions with decompensated congestive heart failure. Not sure if patient is taking medicine at home religiously or if sometimes she skips. PAST MEDICAL HISTORY: Significant for lymphoma 8 years ago, being treated with chemotherapy; history of subclavian deep vein thrombosis, a questionable history of pulmonary embolus; history of mitral r egurgitation, history of tricuspid regurgitation. The patient was in [facility] and was discharged. Past history as mentioned, significant for lymphoma, history of DVT, histor y of right brachial vein thrombosis after removal of Port-A-Cath, history of lymphoma, status post emo. PREVIOUS CARDIAC WORKUP: As follows: The patient had a recent echo in 03/2016 that revealed ejectio n fraction 35%. The patient did MUGA scan that shows ejection fraction 55% dated 04/13/2016. Prior to that, the patient had a MUGA scan last year that shows ejection fraction 56%. History of cardiac catheterization that showed ejection ____ 40-45%, nonobstructive coronary artery disease, history of cardiac catheterization 03/2015. History of prior MUGA scan dated 04/11/2015 shows ejection fraction 56%. REVIEW OF SYSTEMS: A 14-point review of systems negative except as per HPI, dyspnea on exertion. CURRENT MEDICATIONS: The patient is taking Risperdal, sucralfate, Januvia, Glucophage, Synthroid, Xo penex, Levemir, Lasix, Vasotec, aspirin, Eliquis for DVT. REVIEW OF SYSTEMS: As per HPI. PHYSICAL EXAMINATION: VITAL SIGNS: Temperature afebrile, heart rate 109, blood pressure 90/64. HEENT: PERRLA. Extraocular muscles intact. NECK: Supple. No carotid bruits or thyromegaly. CHEST: Clear to auscultation. Decreased air entry at both bases. ABDOMEN: Soft. EXTREMITIES: 2+ pedal edema. EKG shows sinus tachycardia, left bundle branch block. Last echo 03/30/2015: Ejection fraction 25-3 0%, ____ mitral regurgitation. Repeat echo was done on 04/07/2016 that shows ejection fraction 30%, ____ mitral regurgitation, ____ tricuspid regurgitation, RV systolic pressure 54. Baseline left bund le. IMPRESSION: Decompensated congestive heart failure, chest x-ray consistent with bilateral pleural ef fusion, swelling of the legs; mild to moderate aortic regurgitation, ____ mitral regurgitation, mild tricuspid regurgitation by echocardiogram dated 03/30/2015. Then repeat echocardiogram 04/07/2016 th at shows ____ mitral regurgitation, ____ tricuspid regurgitation, right ventricular systolic pressure 54, moderate pulmonary hypertension, ____ tricuspid regurgitation, decreased left ventricular funct ion. Prior MUGA scan in 04/2016: Ejection ____ 55%; 04/2015, ejection fraction 56%. Cardiac cathet erization 03/2015: Nonobstructive coronary artery disease. Lymphoma, nonischemic cardiomyopathy, hy pothyroidism, sinus tachycardia, noncompliance with the medication. The patient recently was in [facility] and, according to patient, probably she signed out from there and admitted here. Hypo thyroidism, status post lymphoma, status post removal of Port-A-Cath, status post right upper extremi ty deep venous thrombosis. RECOMMENDATION: We will start Lasix. Supplement magnesium, supplement potassium (they are low). Co ntinue Eliquis 5 mg for DVT of upper extremity. Will change the beta melissa to Inderal. The patien t is on propranolol for sinus tachycardia. Will continue diuretics, continue levothyroxine. Will st art Primacor and ARETHA inhibitors as blood pressure is tolerated. Will add digoxin as well. Will foll ow with you. Thank you, Dr. Roman, for providing the opportunity in taking care of this patient. Repeat chest x- ray in the morning. If chest x-ray gets worse, consider thoracentesis. will follow with you. Thank you, Dr. Roman, for providing the opportunity in taking care of this patient. Mau Orozco MD cc: [id number] TT: 08/30/2016 11:08:07 Confirmation # [id number] Dictation # [id number] mn
[2016-08-30] MEDS ORDERED: Promethazine DM 6.25 mg-15 mg/5 ml Syrup PO PRN (14:40)
[2016-08-30] MEDS: Benzocaine/Menthol (Cepacol) Lozenge MT PRN ×2 (14:52→21:55)
[2016-08-30] MEDS: guaiFENesin DM 200 mg-20 mg/10 ml UD PO PRN (21:47)
[2016-08-30] MEDS: Insulin Detemir 100 units/ml Vial (Levemir) SC SCH (21:52)
--- NOTE | 2016-08-31 02:24 | PN ---
DATE: 08/30/2016 ADDENDUM: SUBJECTIVE: This patient was seen and evaluated earlier today. This is an addendum to the GI consultation report dictated by Faye Doherty APN. The chart reviewed and the previous imaging studies reviewed. No obvious focal hepatic lesions noticed. The patient has a decompensated congestive heart failure, hyponatremia and hyperkalemia. The patient is on Primacor drip. The patient does have mildly elevated liver enzymes in the past. The elevated LFTs have become normalized with improvement of cardiac function. Likely cause for this enzyme transaminase mild evaluation could be secondary to the hepatic congestion. Will continue to closely follow up care. Thank you very much for allowing us to participate in the care of the patient. Renuka Quigley MD cc: [id number] TT: 08/31/2016 02:23:26 Confirmation # [id number] Dictation # [id number] ricardo FUENTES
[2016-08-31] MEDS: Milrinone 20mg/100ml D5W 100 ML IV PRN (03:23)
[2016-08-31] MEDS: guaiFENesin DM 200 mg-20 mg/10 ml UD PO PRN ×3 (03:23→14:21)
[2016-08-31 06:48] LABS: ADD MANUAL DIFF? NO
[2016-08-31 07:11] LABS: ALB/GLOB RATIO 1.1 (1.1-1.8); ALKALINE PHOSPHATASE 321 U/L (38-133); ALT/SGPT 117 U/L (7-56); AST/SGOT 44 U/L (15-39); BILIRUBIN,TOTAL 0.7 mg/dL (0.2-1.3); BLOOD UREA NITROGEN 22 mg/dL (7-21); CALCIUM 8.6 mg/dL (8.4-10.5); CARBON DIOXIDE 36 mmol/L (21-33); CHLORIDE 77 mmol/L (98-107); GFR AFRICAN-AMERICAN > 60; GLUCOSE,RANDOM 202 mg/dL (70-110); MAGNESIUM 1.6 mg/dL (1.7-2.2); PHOSPHOROUS 3.3 mg/dL (2.5-4.5); POTASSIUM 3.2 mmol/L (3.6-5.0); TOTAL PROTEIN 5.7 g/dL (5.8-8.3)
[2016-08-31 07:18] LABS: SODIUM 119 mmol/L (132-148)
[2016-08-31 07:45] LABS: BASO # 0.05 K/mm3 (0.0-2.0); BASO % 0.5 % (0.0-3.0); EOS # 0.1 (0.0-0.7); EOS % 0.5 % (1.5-5.0); GRAN # 7.83 (1.4-6.5); GRAN % 73.5 % (50.0-68.0); HEMATOCRIT 33.4 % (36.0-48.0); LYMPH # 1.4 (1.2-3.4); MEAN CELL VOLUME 73.7 fL (80.0-105.0); MEAN CORPUSCULAR HEMOGLOBIN 24.7 pg (25.0-35.0); MEAN CORPUSCULAR HGB CONC 33.5 g/dl (31.0-37.0); MEAN PLATELET VOLUME 9.7 fl (7.0-11.0); MONO # 1.3 (0.1-0.6); MONO % 12.5 % (1.0-6.0); PLATELET COUNT 358 10^3/uL (120.0-450.0); RED CELL DISTRIBUTION WIDTH 18.9 % (11.5-14.5); WHITE BLOOD COUNT 10.6 10^3/ul (4.5-11.0)
[2016-08-31] MEDS: Levalbuterol 0.63 MG/3 ML Inhal Soln UD IH SCH ×2 (07:57→16:46)
[2016-08-31] MEDS ORDERED: Potassium Chloride 20 mEq ER Tab PO SCH (08:00)
[2016-08-31] MEDS: Levothyroxine 125 MCG TAB PO SCH (08:14)
[2016-08-31] MEDS: Insulin Reg-LOW-Coverage SC SCH ×4 (08:14→23:26)
[2016-08-31] MEDS: Benzocaine/Menthol (Cepacol) Lozenge MT PRN (08:26)
[2016-08-31] MEDS: Magnesium Oxide 400 mg Tab UD PO SCH ×2 (09:19→18:06)
--- NOTE | 2016-08-31 09:44 | CON ---
DATE: 08/30/2016 REFERRING PHYSICIAN: Dr. Roman REASON FOR CONSULTATION: Shortness of breath, pleural effusion. HISTORY OF PRESENT ILLNESS: This is a 51-year-old female with known history of cardiomyopathy, pleur al effusion, history of gallstones, history of DVT, also has schizophrenia, noncompliant with the fol lowup and medication. Recently admitted to [facility], signed against AMA and came to [facility]. Still has leg swelling, short of breath with exertion. No chest pain, no naus ea, no vomiting, diarrhea. PAST MEDICAL HISTORY: As per history of present illness. ALLERGIES: None known. SOCIAL HISTORY: Nonsmoker, nondrinker. FAMILY HISTORY: No significant cardiopulmonary disease reported. MEDICATIONS: She is on Ativan 0.5 mg at bedtime, Cepacol lozenges q. 2 hours p.r.n., Eliquis 5 mg tw ice a day, Geodon 10 mg q. 4 hours p.r.n., metformin 1000 mg twice a day, insulin coverage, Inderal 1 0 mg 3 times a day, potassium 20 mEq daily, digoxin 0.25 mg daily, Lasix 40 mg daily, Levemir 10 unit s subQ at bedtime, mag oxide 400 mg twice a day, simethicone p.r.n. basis, Primacor IV, Risperdal 0.5 mg twice a day, also Risperdal 1 mg at bedtime, Robitussin-DM q. 6 hours p.r.n., Synthroid 125 mcg b efore breakfast, Xopenex 0.63 mg q. 8 hours, Zestril 2.5 mg daily, Zofran 4 mg q. 4 hours p.r.n. REVIEW OF SYSTEMS: No headache, no rhinitis. Has shortness of breath. No chest pain, no nausea, no vomiting, no diarrhea, no abdominal pain. Has leg swelling. PHYSICAL EXAMINATION: GENERAL: Lying in the bed, no acute distress. VITAL SIGNS: Temp is 98, heart rate is , respiratory rate is 20, blood pressure 121/62, pulse o x 98% on nasal cannula. HEENT: Moist mucous membranes. Small oral cavity. LUNGS: Decreased breath sounds at the bases. HEART: S1, S2. ABDOMEN: Soft, nontender. No organomegaly. EXTREMITIES: Has edema. NEUROLOGIC: Awake, alert, follows simple commands. LABORATORY DATA: Shows hemoglobin 12.0, hematocrit 35.4, WBC 11.0, platelet is 379. INR is 1.26. S odium 118, potassium 3.6, chloride 76, bicarbonate is 31, BUN 23, creatinine 0.5, glucose is 78, calc ium is 8.8, AST 75, ALT 165, alk phos is 438. ProBNP 4490. Chest x-ray done on admission shows bila teral pleural effusions, right more than the left. IMPRESSION AND PLAN: Cardiomyopathy, may have a sleep apnea syndrome, pleural effusions, schizophren ia, history of lymphoma, noncompliant with the medication and followup with severe electrolyte imbala nce. Agree with present management. Continue Primacor, continue diuretics. Supplemental oxygen, br onchodilators, insulin coverage. Seen by psychiatrist, started on Risperdal. Hypothyroid, on Synthr oid. Zofran p.r.n. basis. Follow up electrolytes in the morning. Sleep apnea precaution. Avoid se datives. Continue anticoagulation. Thank you and we will follow with you. Mau More MD cc: [id number] TT: 08/31/2016 09:43:49 Confirmation # [id number] Dictation # [id number] en
[2016-08-31] MEDS ORDERED: Magnesium Sulfate 2 GM in Sodium Chloride 0.9% 100 ML IVPB ONE (09:49)
[2016-08-31] MEDS ORDERED: Potassium Chloride 20 mEq ER Tab PO ONE (10:00)
[2016-08-31] MEDS: Potassium Chloride 20 mEq ER Tab PO SCH ×2 (10:53→17:51)
--- NOTE | 2016-08-31 10:55 | PN ---
DATE: 08/31/2016 REASON FOR CONSULTATION AND FOLLOWUP: Cardiac evaluation, shortness of breath, increased swelling of the legs, bilateral pleural effusion, decompensated congestive heart failure, acute on chronic secon kameron to systolic dysfunction. BRIEF CLINICAL HISTORY: A 51-year-old female with past medical history significant for diabetes, hyp ertension, hyperlipidemia, COPD, CHF, history of congestive heart failure, bipolar disorder, hypothyr oidism, mitral regurg, tricuspid regurgitation, history of lymphoma, status post chemo, history of DV T of right upper extremity, history of removal of Port-A-Cath, who recently discharged from [place], question if she signed out AMA after admitted with decompensated congestive heart failure, readmitted here with acute decompensated congestive heart failure, increased leg swelling and shortness of rosina th. The patient started on IV Lasix and Primacor, feels better. Last MUGA scan shows ejection fract ion 56%, history of mitral regurg, tricuspid regurgitation. PHYSICAL EXAMINATION: VITAL SIGNS: Temperature afebrile, heart rate 94, blood pressure 114/74. HEENT: PERRLA. Extraocular muscles intact. NECK: Supple. No carotid bruits. No thyromegaly. CHEST: Clear to auscultation. HEART: S1, S2 regular. ABDOMEN: Soft. EXTREMITIES: Clubbing and cyanosis negative. LABORATORY DATA: Blood workup as follows: WBC 10, hemoglobin 11, hematocrit 33.4, platelet count 35 8. Chemistry shows sodium 119, potassium 3.2, chloride 77, carbon dioxide 36, anion gap of 9, BUN 22 , creatinine 0.4. TSH 7.25. IMPRESSION: Hypothyroidism, elevated BNP, hypokalemia, hyponatremia. The patient says that she drin ks lot of water, probably this is secondary to polydipsia. RECOMMENDATION: Continue gentle diuretics as blood pressure is tolerated. Continue propranolol for tachycardia. Continue apixaban for DVT. As the blood pressures tolerates, we will give an extra dos e of Lasix at 3:00 p.m. Continue diuresis gentle. We may consider giving a dose of tolvaptan. Thank you, Dr. Roman, for providing us opportunity in taking care of the patient. Mau Orozco MD cc: [id number] TT: 08/31/2016 10:54:54 Confirmation # [id number] Dictation # [id number] tn
--- NOTE | 2016-08-31 11:01 | PN ---
DATE: 08/31/2016 SUBJECTIVE: The patient was seen and examined at the bedside this morning. The patient is intermitt ently coughing. No respiratory distress. Denies any shortness of breath. No chest pain. Denies ab dominal pain. Her lower extremities look more edematous compared to yesterday. No acute overnight e vents reported. VITAL SIGNS: Temperature 97.3, blood pressure is 114/74, pulse rate is 111. LABORATORY DATA: Today, WBC 10.6, H and H is 11.2 and 33.4, platelets is 358. Sodium is 119, K 3.2, BUN 22, creatinine is 0.8. Her magnesium is 1.6, AST 74, ALT 117, alkaline phosphatase is 321. Usha er enzymes are actually better compared to yesterday. PHYSICAL EXAMINATION: HEENT: Sclerae anicteric. NECK: Supple. CARDIAC: S1, S2. CHEST: Lung sounds with decreased breath sounds. Positive air entry. No wheezing. ABDOMEN: With bowel sounds, softly distended, nontender on palpation. No rebound or guarding. LOWER EXTREMITIES: Bilateral edema. It looks more edematous today compared to yesterday. NEUROLOGIC: Awake, alert, and oriented. ASSESSMENT: Bilateral pleural effusion and nonischemic cardiomyopathy. The patient with elevated li elver enzymes likely secondary to severe hepatic congestion. There is some mild improvement this morni ng. The patient is on a Primacor drip. The patient was noted to have possibly a hemangioma on the a bdominal ultrasound that was done in early August 2016 and status post triple phase CT scan, which was n egative for liver mass. The patient also has history of pulmonary embolism, deep venous thrombosis, h yponatremia, hypokalemia and hypomagnesemia. PLAN: The patient is currently on Primacor drip, receiving magnesium supplements, as well as potassi um replacement. The patient is on Lasix, on Eliquis. We will continue to trend LFTs. The patient i s going to be evaluated by renal. We will place patient on gastrointestinal prophylaxis. The patien t was seen and case discussed with Dr. Quigley. Faye ARECHIGA cc: [id number] TT: 08/31/2016 11:00:47 Confirmation # [id number] Dictation # [id number] mn
--- NOTE | 2016-08-31 12:22 | PN ---
DATE: 08/30/2016 The patient seems comfortable, no distress. She is concerned about her swelling. The patient does h ave hyponatremia persistent. PHYSICAL EXAMINATION: VITAL SIGNS: Temperature 98, heart rate 106, blood pressure 121/61, respiratory rate 20. HEAD AND NECK: Normal. No JVD, no thyromegaly. CHEST: Clear, good entry. CARDIAC: First and second sounds are normal. ABDOMEN: Soft, obese, nontender. EXTREMITIES: Bilateral edema, mild. NEUROLOGIC: Normal. 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 TSH level 7.25. We may increase her medicines. IMPRESSION AND PLAN: 1. Acute systolic heart failure on top of chronic systolic heart failure. 2. The patient was started on milrinone. Continue diuretics, continue other cardiac meds. Follow u p with Dr. Orozco. 3. Bilateral pleural effusions. The patient has been tapped in the past, history of chronic obstruc tive pulmonary disease, obstructive sleep apnea. We will get Dr. More, pulmonary consult. We will follow up with him. Continue diuretics for now. 4. Questionable liver mass. We will discuss with Dr. Renuka Quigley about that. The patient had an MRI in [place] 5. Hyponatremia, probably secondary to congestive heart failure, hypothyroidism. The patient seems resistant and hyponatremia seems worse. I see patient consulted with Dr. Javier. She started her on medications called tolvaptan 15 mg p.o. daily. We will follow up her lab results. PLAN: Continue current treatment. Follow up clinically. The patient has history of DVT, PE. Bree nue Eliquis b.i.d. 5 mg. Also, patient asked for lozenges, cough medicine has been ordered for her. Richardson Roman MD cc: [phone] TT: 08/31/2016 12:21:36 Confirmation # [id number] Dictation # [id number] devin
[2016-08-31] MEDS: Digoxin 250 mcg (0.25 mg) Tab PO SCH (13:09)
--- NOTE | 2016-08-31 17:21 | PN ---
DATE: 08/31/2016 REFERRING PHYSICIAN: Dr. Roman SUBJECTIVE: She is out of bed to chair, feels a little better, still has a cough, sputum production. No nausea, no vomiting, diarrhea. Does have some ascites. Also, has leg swelling. OBJECTIVE: GENERAL: Mild distress, secondary to cough and shortness of breath. VITAL SIGNS: Temp is 98, heart rate is 90, respiratory rate is 20, blood pressure 87/56, pulse ox 96 % on nasal cannula. HEENT: Moist mucous membranes. Small oral cavity. Crowded airway. NECK: Supple. No JVD. LUNGS: Has 1/3 up no breath sounds. HEART: S1 and S2. ABDOMEN: Soft, nontender. No organomegaly. EXTREMITIES: Has edema. NEUROLOGIC: Awake, alert, follows simple command. MEDICATIONS: She is on Ativan 0.5 mg at bedtime, Cepacol lozenges q. 2 hours p.r.n., Eliquis 5 mg tw ice a day, Geodon 10 mg IM q. 4 hours p.r.n., metformin 1000 mg twice a day, insulin coverage, Indera l 10 mg 3 times a day, potassium 20 mEq twice a day, digoxin 0.25 mg daily, Lasix 40 mg daily, Levemi r 10 units subQ at bedtime, mag oxide 400 mg twice a day, simethicone 80 mg q.i.d. p.r.n., Phenergan with codeine q.i.d. p.r.n., on IV Primacor, Protonix 20 mg daily, Risperdal 0.5 mg twice a day, also Risperdal 1 mg at bedtime, tolvaptan 15 mg daily, Synthroid 150 mcg before breakfast, Xopenex 0.63 q. 8 hours, Zestril 2.5 mg daily, Zofran p.r.n. basis. LABORATORY DATA: Shows hemoglobin 11.2, hematocrit 33.4, WBC 10.6, platelet is 358. Sodium 119, pot assium 3.2, chloride 77, bicarbonate 36, BUN 22, creatinine 0.4, glucose 202, calcium is 8.6, phospho racheal is 3.3, AST 44, ALT 117, alk phos is 321, albumin is 3.0. TSH 7.25. Microbiology: Urine has ye ast. IMPRESSION AND PLAN: Cardiomyopathy, may have sleep apnea syndrome, pleural effusion, schizophrenia, history of lymphoma, noncompliant with the medication, chronic obstructive lung disease. Agree with Dr. Roman with the present management. Continue diuretics, gastric prophylaxis, deep venous thromb osis prophylaxis. Add doxycycline 100 mg twice a day, also add Solu-Medrol 20 mg q. 12 hours. Will add sodium tablet twice a day. Follow up electrolytes in the morning. Fall precaution. May have sl eep apnea syndrome, but patient refused to use CPAP. Thank you and we will follow with you. Mau More MD cc: [phone] TT: 08/31/2016 17:20:42 Confirmation # [id number] Dictation # [id number] en
[2016-08-31] MEDS: Promethazine/Cod 6.25mg-10mg/5ml Syr UD PO SCH (17:52)
[2016-08-31] MEDS: Tolvaptan 15 MG TAB PO SCH (18:30)
[2016-08-31] MEDS: Insulin Detemir 100 units/ml Vial (Levemir) SC SCH (23:25)
--- NOTE | 2016-09-01 02:21 | PN ---
DATE: 08/31/2016 ADDENDUM This patient was seen and evaluated earlier. This is an addendum to the GI progress report dictated by Faye Doherty NP. PHYSICAL EXAMINATION: The patient denies any abdominal pain. The patient does have bilateral pedal edema. Has elevated JV D. Reduced air entry at base of the lungs. The patient is now being treated for decompensated CHF. The patient does have clinically, both featu res of right and left-sided heart failure. Part of the elevated LFTs could be related to hepatic con gestion. He had in the past elevated LFTs which have significantly improved with improvement of the cardiac function. Continue to closely follow up with her care. The patient has been on Eliquis for DVT. The patient is also on IV Primacor. Thank you very much for allowing me to participate in the care of the patient. Renuka Quigley MD cc: [phone] TT: 09/01/2016 02:21:01 Confirmation # [id number] Dictation # [id number] tn
[2016-09-01] MEDS: Milrinone 20mg/100ml D5W 100 ML IV PRN (02:59)
[2016-09-01] MEDS: Benzocaine/Menthol (Cepacol) Lozenge MT PRN (03:46)
[2016-09-01] MEDS: Levalbuterol 0.63 MG/3 ML Inhal Soln UD IH SCH ×5 (04:30→19:34)
--- NOTE | 2016-09-01 08:15 | CON ---
DATE: 08/31/2016 REASON FOR CONSULTATION: Hyponatremia. Hypokalemia. HISTORY OF PRESENTING ILLNESS: 51-year-old lady admitted 08/29 with complaints of shortness of breath, cough, dyspnea on exertion, increasing lower extremity edema. The patient has a history of nonischemic cardiomyopathy, bilateral pleural effusion. Admitted for worsening CHF. Found to have a sodium of 120. She was also found to have a potassium of 3.3. The patient has been treated with IV Lasix. PAST MEDICAL AND SURGICAL HISTORY: CHF, cardiomyopathy, COPD, bilateral pleural effusions, DVT, PE, chronic anxiety, . FAMILY HISTORY: Noncontributory. SOCIAL HISTORY: No history of smoking, no history of alcohol abuse, IV drug abuse ALLERGIES: No known drug allergies. MEDICATIONS AT HOME: , , Mylicon, Januvia, Protonix, b.i.d., metformin 1000 b.i.d., , Levemir, Lasix IV, Vasotec 2.5, aspirin, Maalox, Xanax. REVIEW OF SYSTEMS: All systems are reviewed, pertinent positives as mentioned in the history of presenting illness, the rest is unremarkable. PHYSICAL EXAMINATION: GENERAL: Older than stated age appearing lady, sitting in chair complaining of cough. VITAL SIGNS: Blood pressure 105/69, heart rate of 109, respiratory rate 20, temperature . HEENT: Normocephalic, atraumatic no JVD. LUNGS: Bilaterally equal air entry, bilateral rhonchi, bilateral basilar rales. CARDIAC: S1, S2, regular rate and rhythm, no murmur, no rub. ABDOMEN: Obese, distended, soft, nontender, bowel sounds present. EXTREMITIES: 2+ pitting edema on the lower extremities. INTAKE AND OUTPUT: LABORATORY DATA: WBC count , hemoglobin , hematocrit 33, platelets 238. Sodium 119, potassium 3.2, chloride 77, CO2 , BUN 22, creatinine 0.4 , glucose 302, calcium 8.6, , magnesium 1.6. AST 24, ALT 117, albumin 3.0. TSH 7.35. Urinalysis, yellow, clear, pH 6.0, , protein trace, leukocyte esterase small. CURRENT MEDICATIONS: Ativan, , Diflucan, doxycycline, Eliquis, Geodon, metformin 1000 b.i.d., insulin, Inderal 10 t.i.d., potassium 20 mEq b.i.d., ____ _, Lasix 40 IV daily, insulin, mag oxide, Mylicon, promethazine, , Protonix , Risperdal, sodium chloride tablets, Synthroid, Xopenex, , Zofran, mag sulfate 2 grams given, additional potassium was given this morning. ASSESSMENT AND PLAN: 1. Severe hyponatremia, malnourishment hyponatremia suspect. 2. Congestive heart failure, total body volume overload, , edema, bilateral pleural effusions. 3. Hypokalemia. 4. Hypomagnesemia. 5. Non-insulin dependent diabetes mellitus. PLAN: 1. Agree with tolvaptan 15 mg as ordered by Dr. Orozco. 2. Replenish her calcium adequately. 3. Agree with magnesium supplementation. 4. Monitor urine output closely. 5. Monitor sodium. 6. Expect sodium to come up with tolvaptan. Thank you for the consult Shannan Javier MD cc: [id number] TT: 09/01/2016 00:46:40 Confirmation # [id number] Dictation # [id number] an MTDD
[2016-09-01] MEDS: Insulin Reg-LOW-Coverage SC SCH ×3 (08:35→17:59)
[2016-09-01] MEDS: Pantoprazole 20 mg EC Tab PO SCH (08:35)
[2016-09-01] MEDS: Levothyroxine 125 MCG TAB PO SCH (08:35)
--- NOTE | 2016-09-01 09:05 | PN ---
DATE: 08/31/2016 The patient seems comfortable. She is still on IV milrinone. She complained of thick phlegm in her throat. She cannot get it out. Otherwise, she is stable. PHYSICAL EXAMINATION: VITAL SIGNS: Temperature 97.8, heart rate 104-90, blood pressure 105/61, respirations 18. HEAD AND NECK: Normal. No JVD, no thyromegaly. CHEST: Diminished breath sounds on the right more than the left, no wheezing. CARDIAC: First sound, second sound normal. ABDOMEN: Obese, nontender. EXTREMITIES: Bilateral leg edema. NEUROLOGIC: Generally weak. LABORATORY STUDIES: White count 10.6, hemoglobin 11.2, hematocrit 33.4, platelets 358. Chemistry no eric for sodium 119, potassium 3.2, chloride 77, bicarb 36, BUN 22, creatinine 0.4, blood sugar is 202 . Liver enzyme is improving, AST is down, it is 44, ALT 117, alk phos 321. IMPRESSION: 1. Nonischemic cardiomyopathy with low ejection fraction. Continue IV milrinone and continue all ot her cardiac meds. Follow up with Dr. Orozco. Currently, patient on Lasix 40 IV daily and she is getti ng also Lanoxin, magnesium. Continue current treatment. 2. Hyponatremia, multifactorial. Sodium is 119. 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 3. Hypothyroidism. The patient currently on 125. I may increase that to 150. Her TSH is still low . 4. Schizophrenia. Currently on Risperdal 0.5 mg twice a day and 1 mg p.o. at bedtime. 5. Diabetes. Continue Levemir, continue insulin coverage, continue metformin and will follow up cli nically. 6. The patient does have also chronic anxiety. Continue Ativan. The patient getting Geodon injecti on 10 mg every 4 hours p.r.n. PLAN: Continue current treatment. We may add Mucomyst for mucus relief and chest PT. Follow up cli nically. The patient also has pneumonia. Currently on doxycycline IV and she is on prednisone 20 mg p.o. kelly y for underlying chronic obstructive pulmonary disease and also Xopenex q. 8 hours. Continue current treatment. 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 Richardson Roman MD cc: [phone] TT: 09/01/2016 09:04:53 Confirmation # [id number] Dictation # [id number] en
[2016-09-01 09:12] LABS: ALKALINE PHOSPHATASE 267 U/L (38-133); ALT/SGPT 94 U/L (7-56); AST/SGOT 75 U/L (15-39); BILIRUBIN,DIRECT 0.4 mg/dL (0.0-0.4); BILIRUBIN,TOTAL 0.6 mg/dL (0.2-1.3); BLOOD UREA NITROGEN 22 mg/dL (7-21); CALCIUM 8.8 mg/dL (8.4-10.5); CARBON DIOXIDE 32 mmol/L (21-33); CHLORIDE 83 mmol/L (98-107); GFR AFRICAN-AMERICAN > 60; GLUCOSE,RANDOM 252 mg/dL (70-110); MAGNESIUM 1.8 mg/dL (1.7-2.2); PHOSPHOROUS 3.1 mg/dL (2.5-4.5); SODIUM 122 mmol/L (132-148); TOTAL PROTEIN 5.5 g/dL (5.8-8.3)
[2016-09-01 09:15] LABS: POTASSIUM 4.2 mmol/L (3.6-5.0)
[2016-09-01] MEDS: Promethazine/Cod 6.25mg-10mg/5ml Syr UD PO SCH ×5 (11:30→21:47)
[2016-09-01] MEDS: Potassium Chloride 20 mEq ER Tab PO SCH ×2 (11:30→17:49)
[2016-09-01] MEDS: Magnesium Oxide 400 mg Tab UD PO SCH ×2 (11:30→17:49)
--- NOTE | 2016-09-01 14:14 | PN ---
DATE: 09/01/2016 SUBJECTIVE: The patient is seen sitting in chair. She is awake, she is alert. She reports her coug h is somewhat better. She got antibiotics. She got cough medicine with codeine. She reports that her legs are not yet better. They are still very swollen. They may be marginally b vaughn. PHYSICAL EXAMINATION: GENERAL: Middle aged lady, sitting in chair. VITAL SIGNS: Blood pressure 92/52, heart rate 80, respiratory rate 20, temperature 97.4. HEENT: Normocephalic, atraumatic. NECK: Supple, no JVD. LUNGS: Bilateral equal air entry, crackles right side much more than left side, bilateral rhonchi. CARDIAC: S1, S2, regular rate and rhythm, no murmur, no rub. ABDOMEN: Obese, distended, soft, nontender, bowel sounds present. EXTREMITIES: 3+ pitting edema of the lower extremities. INTAKE AND OUTPUT: 1372/1100. LABORATORY DATA: WBC 10.6, hemoglobin 11.2, hematocrit 33, platelets 358. Sodium 122, potassium 4.2 , chloride 83, CO2 32, BUN 22, creatinine 0.5, glucose 252, calcium 8.8, phosphorus 3.1, magnesium 1. 8, AST 75, ALT 94, albumin 2.8, corrected calcium is 9.5. CURRENT MEDICATIONS: Mucomyst, Ativan, Cepacol, Diflucan 200 daily, doxycycline 100 q. 12, Eliquis 5 b.i.d., metformin 1000 b.i.d., digoxin 0.25 daily, Lasix 40 IV daily, Levemir insulin, mag oxide 400 b.i.d., Mylicon, promethazine, prednisone, tolvaptan 15 mg daily, Zestril 2.5, Synthroid 125, sodium chloride 1 gram with meals. ASSESSMENT: 1. Congestive heart failure/cardiomyopathy. 2. Anasarca. 3. ? Right lower lobe pneumonia. 4. Yeast in urine. 5. Severe hyponatremia, dilutional. 6. Non-insulin dependent diabetes mellitus. 7. Schizophrenia. PLAN: 1. Tolvaptan 15 mg today. 2. Continue Lasix. 3. Continue antibiotics as per infectious disease recommendations. 4. Daily weights. 5. Monitor intake and output closely. 6. Monitor daily electrolytes. Shannan Javier MD cc: [phone] TT: 09/01/2016 14:13:13 Confirmation # [id number] Dictation # [id number] en
--- NOTE | 2016-09-01 14:33 | CP.PCM.PN ---
<FrankDeepak - Last Filed: 09/01/16 14:30> Subjective - Date & Time of Evaluation Date of Evaluation: 09/01/16 Time of Evaluation: 14:30 - Subjective Subjective: GI for Dr. Quigley Pt s&eDelfina CRAWFORD. Denies F/C/N/V/D/abd pain. +amb, + tolerating PO, + Bm. Objective - Vital Signs/Intake and Output Vital Signs (last 24 hours): Temp Pulse Resp BP Pulse Ox 97 F L 101 H 19 109/63 95 09/01/16 12:00 09/01/16 12:00 09/01/16 12:00 09/01/16 12:00 09/01/16 06:00 Intake and Output: 09/01/16 09/01/16 06:59 18:59 Intake Total 632 Output Total 1100 Balance -468 - Medications Medications: Current Medications Acetylcysteine (Acetylcysteine 20%) 3 ml IH BIDRESP IZABELA Apixaban (Eliquis) 5 mg PO BID IZABELA PRN Reason: Protocol Last Admin: 08/31/16 17:51 Dose: 5 mg Benzocaine/Menthol (Cepacol Sore Throat) 1 mirna MT Q2H PRN PRN Reason: Sore Throat Last Admin: 09/01/16 03:46 Dose: 1 mirna Digoxin (Lanoxin) 0.25 mg PO 1400 IZABELA Last Admin: 08/31/16 13:09 Dose: 0.25 mg Doxycycline Hyclate (Doryx) 100 mg PO Q12 IZABELA PRN Reason: Protocol Last Admin: 08/31/16 23:25 Dose: Not Given Fluconazole (Diflucan) 200 mg PO DAILY IZABELA PRN Reason: Protocol Last Admin: 08/31/16 15:12 Dose: 200 mg Furosemide (Lasix) 40 mg IVP DAILY [facility] Last Admin: 08/31/16 09:19 Dose: 40 mg Milrinone Lactate/Dextrose (Primacor 20mg/100ml D5w) 100 mls @ 4.409 mls/hr IV .[id number] PRN; Protocol; 0.2 MCG/KG/MIN PRN Reason: TITRATE PER MD ORDER Last Admin: 09/01/16 02:59 Dose: 0.2 mcg/kg/min, 4.409 mls/hr Insulin Detemir (Levemir) 10 unit SC [facility] Last Admin: 08/31/16 23:25 Dose: 10 unit Insulin Human Regular (Humulin R Low) 0 units SC ACHS [facility] PRN Reason: Protocol Last Admin: 09/01/16 08:35 Dose: 3 units Levalbuterol HCl (Xopenex) 0.63 mg IH Q8 [facility] Last Admin: 09/01/16 07:23 Dose: 0.63 mg Levothyroxine Sodium (Synthroid) 125 mcg PO ACB [facility] Last Admin: 09/01/16 08:35 Dose: 125 mcg Lisinopril (Zestril) 2.5 mg PO DAILY [facility] Last Admin: 08/31/16 09:19 Dose: 2.5 mg Lorazepam (Ativan) 0.5 mg PO [facility] Last Admin: 08/31/16 23:25 Dose: 0.5 mg Magnesium Oxide (Mag-Ox) 400 mg PO BID [facility] Last Admin: 08/31/16 18:06 Dose: 400 mg Metformin HCl (Glucophage) 1,000 mg PO BID [facility] Last Admin: 08/31/16 17:51 Dose: 1,000 mg Ondansetron HCl (Zofran Inj) 4 mg IVP Q4 PRN PRN Reason: Nausea/Vomiting Pantoprazole Sodium (Protonix Ec Tab) 20 mg PO ACB [facility] Last Admin: 09/01/16 08:35 Dose: 20 mg Potassium Chloride (K-Dur 20 Meq Er Tab) 20 meq PO BID [facility] Last Admin: 08/31/16 17:51 Dose: 20 meq Prednisone (Prednisone Tab) 20 mg PO DAILY [facility] Last Admin: 08/31/16 15:12 Dose: 20 mg Promethazine HCl/Codeine (Phenergan/Codeine Oral Syrup) 5 ml PO QID [facility] Last Admin: 09/01/16 00:00 Dose: 5 ml Propranolol HCl (Inderal) 10 mg PO TID [facility] Last Admin: 08/31/16 18:30 Dose: 10 mg Risperidone (Risperdal Tab) 0.5 mg PO 1000,1600 [facility] Last Admin: 08/31/16 16:13 Dose: Not Given Risperidone (Risperdal Tab) 1 mg PO [facility] Last Admin: 08/31/16 23:26 Dose: 1 mg Simethicone (Mylicon Chew Tab) 80 mg PO QID PRN PRN Reason: Flatulence Sodium Chloride (Sodium Chloride Tab) 1 gm PO WM [facility] Last Admin: 08/31/16 16:11 Dose: 1 gm Tolvaptan (Samsca) 15 mg PO DAILY IZABELA Stop: 09/02/16 17:16 Last Admin: 08/31/16 18:30 Dose: 15 mg Ziprasidone (Geodon Inj) 10 mg IM Q4H PRN PRN Reason: Agitation - Labs Labs: 08/31/16 06:30 09/01/16 05:30 PT 13.6 Seconds (9.9-11.8) H 08/29/16 17:40 INR 1.26 (0.93-1.08) H 08/29/16 17:40 APTT 26.8 Seconds (23.7-30.8) 08/29/16 17:40 - Constitutional Appears: No Acute Distress - Head Exam Head Exam: ATRAUMATIC, NORMAL INSPECTION, NORMOCEPHALIC - Eye Exam Eye Exam: EOMI, Normal appearance, PERRL Pupil Exam: NORMAL ACCOMODATION, PERRL - ENT Exam ENT Exam: Mucous Membranes Moist, Normal Exam - Neck Exam Neck Exam: Full ROM, Normal Inspection. absent: Lymphadenopathy - Respiratory Exam Respiratory Exam: Clear to Ausculation Bilateral, NORMAL BREATHING PATTERN - Cardiovascular Exam Cardiovascular Exam: REGULAR RHYTHM, +S1, +S2. absent: Murmur - GI/Abdominal Exam GI & Abdominal Exam: Soft, Normal Bowel Sounds. absent: Distended, Firm, Guarding, Rigid, Tenderness - Extremities Exam Extremities Exam: Full ROM, Normal Capillary Refill, Pedal Edema - Back Exam Back Exam: NORMAL INSPECTION - Neurological Exam Neurological Exam: Alert, Awake, CN II-XII Intact, Normal Gait, Oriented x3 - Psychiatric Exam Psychiatric exam: Normal Affect, Normal Mood - Skin Skin Exam: Dry, Intact, Normal Color, Warm Assessment and Plan - Assessment and Plan (Free Text) Assessment: Elevated LFT : trending down CT: questionable Liver mass -MOnitor labs -Medical management -COntinue Eliquis for PE/DVT DW Dr. Quigley <Renuka Quigley V - Last Filed: 09/18/16 23:16> Objective - Vital Signs/Intake and Output Vital Signs (last 24 hours): Temp Pulse Resp BP Pulse Ox 97.8 F 111 H 20 116/69 96 09/15/16 12:00 09/15/16 12:00 09/15/16 12:00 09/15/16 12:00 09/15/16 06:00 - Labs Labs: 09/15/16 07:25 09/15/16 07:25 PT 13.6 Seconds (9.9-11.8) H 08/29/16 17:40 INR 1.26 (0.93-1.08) H 08/29/16 17:40 APTT 26.8 Seconds (23.7-30.8) 08/29/16 17:40 Attending/Attestation - Attestation I have fully participated in the care of the patient.: Yes I have reviewed all pertinent clinical information, including history, physical exam and plan: Yes Notes (Text): the liver function tests shows downward trend. Most likely related to hepatic congestion. CT with liver protocol did not reveal a focal hepatic lesion. Hepatitis profile done in the past was negative. We will continue fu LFT
[2016-09-01] MEDS: Digoxin 250 mcg (0.25 mg) Tab PO SCH (14:38)
[2016-09-01] MEDS: Acetylcysteine 20% Inhal Soln (4ml) IH SCH ×2 (15:17→19:34)
--- NOTE | 2016-09-01 19:45 | PN ---
DATE: 09/01/2016 REFERRING PHYSICIAN: Dr. Roman. SUBJECTIVE: She is out of bed to chair, legs dangling down, overall feels better, decreased cough, d ecreased shortness of breath. No nausea, vomiting, diarrhea. No leg pain or leg swelling. OBJECTIVE: GENERAL: No acute distress. VITAL SIGNS: Temperature is 98, heart rate is 91, respiratory rate is 20, blood pressure 120/79, pul se ox 95% on room air. HEENT: Moist mucous membrane. Crowded airway. Mallampati score is 4. NECK: Supple. No JVD. LUNGS: Has decreased breath sounds at the bases. Wheezing is a little better. HEART: S1 and S2. ABDOMEN: Soft and nontender. No organomegaly. EXTREMITIES: Does have edema. NEUROLOGIC: Awake, alert, follows simple commands. MEDICATIONS: She is on Mucomyst 20% inhaled q. 12 hours, Ativan 0.5 mg at bedtime, Cepacol lozenges q. 12 hours p.r.n., Diflucan 200 mg daily, doxycycline 100 mg twice a day, Eliquis 5 mg twice a day, Geodon 10 mg q. 4 hours, Glucophage 1000 mg twice a day insulin coverage, Inderal 10 mg 3 times a day , potassium 20 mEq twice a day, digoxin 0.25 mg daily, Lasix 40 mg daily, Levemir 10 units subQ at be dtime, mag oxide 400 mg twice a day, simethicone 18 mg 4 times a day p.r.n., Phenergan with codeine 5 mL 4 times a day, prednisone 20 mg daily, milrinone IV drip, Protonix 20 mg daily, Risperdal 0.5 mg twice a day, Risperdal 1 mg at bedtime, also on tolvaptan 15 mg daily, sodium chloride 1 gram b.i.d. with meals. LABORATORY DATA: Shows sodium 122, potassium 4.2, chloride , bicarbonate 32, BUN 22, creatinine 0.5, glucose 252, calcium 8.8, phosphorus 3.1. AST 75, ALT 94, alkaline phosphatase . Albumin is 2.8. Microbiology: Urine positive for yeast. IMPRESSION AND PLAN: Cardiomyopathy, may have sleep apnea syndrome, pleural effusion, schizophrenia, lymphoma, noncompliant with the medication, chronic obstructive lung disease. I agree with Dr. Duran apodaca with the present management. Continue to supplement sodium. Continue p.o. and inhaled bronchodil ator. Sleep apnea precautions. Careful with sedation. Continue milrinone, diuretics. Follow up godwin rich in the morning. Thank you and we will follow with you. Mau More MD cc: [phone] TT: 09/01/2016 19:44:13 Confirmation # [id number] Dictation # [id number]
[2016-09-01] MEDS: Tolvaptan 15 MG TAB PO SCH (20:34)
[2016-09-01] MEDS: Insulin Detemir 100 units/ml Vial (Levemir) SC SCH (21:47)
[2016-09-02] MEDS: Benzocaine/Menthol (Cepacol) Lozenge MT PRN ×3 (00:19→17:48)
[2016-09-02] MEDS: Levalbuterol 0.63 MG/3 ML Inhal Soln UD IH SCH ×3 (00:30→20:05)
--- NOTE | 2016-09-02 02:17 | PN ---
DATE: 09/01/2016 ADDENDUM This is an addendum to the consultation report dictated by Dr. Marie. SUBJECTIVE: This patient was seen and evaluated earlier. Close followup of the LFTs. Imaging studi es did not reveal any obvious focal hepatic lesion. The likelihood of LFTs elevation could be second manuela to hepatitic condition. Continue the present management with the cardiac management. Thank you for allowing us to participate in the care of this patient. Renuka Quigley MD cc: [phone] TT: 09/02/2016 02:17:05 Confirmation # [id number] Dictation # [id number] mn
[2016-09-02] MEDS: Insulin Reg-LOW-Coverage SC SCH ×5 (03:56→22:12)
[2016-09-02] MEDS: Milrinone 20mg/100ml D5W 100 ML IV PRN (05:34)
--- NOTE | 2016-09-02 06:30 | CP.PCM.CON ---
History of Present Illness - History of Present Illness History of Present Illness: General Surgery consult note for Dr. Rendon Consulted for: breast lump Patient is a 51F with PMH including schizophrenia, CHF, BL pleural effusions, COPD, liver mass, DVT and PE on eliquis who is admitted for SOB and leg swelling with BL pleural effusions. Patient noted to primary that she had a swelling in her right inferior breast and surgery was consulted. Patient states that she noticed the swelling a week ago, denies pain, nipple discharge, or nipple retraction. Patient is post-menopausal and has no breast cancer family history that she is aware of. Patient reports SOB and cough but no chest pain, fevers, chills, nausea and vomiting, or any other symptoms PMH: CHF, schizophrenia, anxiety, BL pleural effusion, COPD, liver mass, DVT, pulmonary embolism on eliquis, hypothyroidism PSH: cholecystectomy, neck mass excision ALL: NKDA Review of Systems - Review of Systems All systems: reviewed and no additional remarkable complaints except (as per HPI ) - Breasts Breasts: As Per HPI, Skin Changes (erythema and mild skin breakdown under the right breast). absent: Change in Shape - Cardiovascular Cardiovascular: As Per HPI - Respiratory Respiratory: As Per HPI - Gastrointestinal Gastrointestinal: As Per HPI - Menstruation Menstruation: Post Menopausal Additional comments: first menstrual period age 12 - Musculoskeletal Musculoskeletal: absent: Back Pain, Numbness, Tingling - Integumentary Additional comments: erythema and mild skin breakdown in right inferior breast fold - Neurological Neurological: absent: Dizziness, Numbness, Headaches, Weakness - Psychiatric Psychiatric: Anxiety Past Patient History - Infectious Disease Hx of Infectious Diseases: None - Tetanus Immunizations Tetanus Immunization: Unknown - Past Medical History & Family History Past Medical History?: Yes - Past Social History Smoking Status: Former Smoker - CARDIAC Hx Cardiac Disorders: Yes Hx Congestive Heart Failure: Yes Hx Hypercholesterolemia: Yes Hx Hypertension: Yes Hx Pacemaker: No Hx Peripheral Edema: Yes Hx Peripheral Vascular Disease: (DVT TO LEFT ARM) - PULMONARY Hx Respiratory Disorders: Yes Hx Chronic Obstructive Pulmonary Disease (COPD): Yes Hx Emphysema: Yes Hx Pneumonia: Yes - NEUROLOGICAL Hx Neurological Disorder: No Hx Seizures: No - HEENT Hx HEENT Problems: No - RENAL Hx Chronic Kidney Disease: No - ENDOCRINE/METABOLIC Hx Endocrine Disorders: Yes Hx Diabetes Mellitus Type 2: Yes Hx Hypothyroidism: Yes - HEMATOLOGICAL/ONCOLOGICAL Hx Blood Disorders: No - INTEGUMENTARY Hx Dermatological Problems: No Hx Basil Cell: No Hx Eczema: No Hx Melanoma: No Hx Psoriasis: No Hx Squamous Cell: No - MUSCULOSKELETAL/RHEUMATOLOGICAL Hx Falls: No - GASTROINTESTINAL Hx Gastrointestinal Disorders: Yes Hx Crohn's Disease: No Hx Diverticulitis: Yes Hx Gastroesophageal Reflux: Yes - GENITOURINARY/GYNECOLOGICAL Hx Genitourinary Disorders: No Hx Sexually Transmitted Disorders: No - PSYCHIATRIC Hx Substance Use: No - SURGICAL HISTORY Hx Surgeries: Yes Hx Appendectomy: No Hx Cholecystectomy: Yes Hx Coronary Stent: No Other/Comment: neck mass excision - ANESTHESIA Hx Anesthesia: Yes Hx Anesthesia Reactions: No Hx Malignant Hyperthermia: No Meds Allergies/Adverse Reactions: Allergies Allergy/AdvReac Type Severity Reaction Status Date / Time No Known Allergies Allergy Verified 08/29/16 15:17 - Medications Medications: Current Medications Acetylcysteine (Acetylcysteine 20%) 3 ml IH BIDRESP [facility] Last Admin: 09/01/16 19:34 Dose: 3 ml Apixaban (Eliquis) 5 mg PO BID [facility] PRN Reason: Protocol Last Admin: 09/01/16 17:48 Dose: 5 mg Benzocaine/Menthol (Cepacol Sore Throat) 1 mirna MT Q2H PRN PRN Reason: Sore Throat Last Admin: 09/02/16 00:19 Dose: 1 mirna Digoxin (Lanoxin) 0.25 mg PO 1400 [facility] Last Admin: 09/01/16 14:38 Dose: 0.25 mg Doxycycline Hyclate (Doryx) 100 mg PO Q12 I[facility]A PRN Reason: Protocol Last Admin: 09/01/16 21:48 Dose: 100 mg Fluconazole (Diflucan) 200 mg PO DAILY IZABELA PRN Reason: Protocol Last Admin: 09/01/16 11:30 Dose: 200 mg Furosemide (Lasix) 40 mg IVP DAILY [facility] Last Admin: 09/01/16 11:30 Dose: 40 mg Milrinone Lactate/Dextrose (Primacor 20mg/100ml D5w) 100 mls @ 4.409 mls/hr IV .[id number] PRN; Protocol; 0.2 MCG/KG/MIN PRN Reason: TITRATE PER MD ORDER Last Admin: 09/02/16 05:34 Dose: 0.2 mcg/kg/min, 4.409 mls/hr Insulin Detemir (Levemir) 10 unit SC [facility] Last Admin: 09/01/16 21:47 Dose: 10 unit Insulin Human Regular (Humulin R Low) 0 units SC ACHS [facility] PRN Reason: Protocol Last Admin: 09/02/16 03:56 Dose: Not Given Levalbuterol HCl (Xopenex) 0.63 mg IH Q8 [facility] Last Admin: 09/02/16 00:30 Dose: Not Given Levothyroxine Sodium (Synthroid) 125 mcg PO ACB [facility] Last Admin: 09/01/16 08:35 Dose: 125 mcg Lisinopril (Zestril) 2.5 mg PO DAILY [facility] Last Admin: 09/01/16 11:30 Dose: 2.5 mg Lorazepam (Ativan) 0.5 mg PO [facility] Last Admin: 09/01/16 21:48 Dose: 0.5 mg Magnesium Oxide (Mag-Ox) 400 mg PO BID [facility] Last Admin: 09/01/16 17:49 Dose: 400 mg Metformin HCl (Glucophage) 1,000 mg PO BID [facility] Last Admin: 09/01/16 17:49 Dose: 1,000 mg Ondansetron HCl (Zofran Inj) 4 mg IVP Q4 PRN PRN Reason: Nausea/Vomiting Pantoprazole Sodium (Protonix Ec Tab) 20 mg PO ACB [facility] Last Admin: 09/01/16 08:35 Dose: 20 mg Potassium Chloride (K-Dur 20 Meq Er Tab) 20 meq PO BID [facility] Last Admin: 09/01/16 17:49 Dose: 20 meq Prednisone (Prednisone Tab) 20 mg PO DAILY [facility] Last Admin: 09/01/16 14:42 Dose: 20 mg Promethazine HCl/Codeine (Phenergan/Codeine Oral Syrup) 5 ml PO QID [facility] Last Admin: 09/01/16 21:47 Dose: 5 ml Propranolol HCl (Inderal) 10 mg PO TID [facility] Last Admin: 09/01/16 17:49 Dose: 10 mg Risperidone (Risperdal Tab) 0.5 mg PO 1000,1600 [facility] Last Admin: 09/01/16 16:00 Dose: 0.5 mg Risperidone (Risperdal Tab) 1 mg PO [facility] Last Admin: 09/01/16 21:49 Dose: 1 mg Simethicone (Mylicon Chew Tab) 80 mg PO QID PRN PRN Reason: Flatulence Sodium Chloride (Sodium Chloride Tab) 1 gm PO WM [facility] Last Admin: 09/01/16 18:09 Dose: 1 gm Tolvaptan (Samsca) 15 mg PO DAILY [facility] Stop: 09/02/16 17:16 Last Admin: 09/01/16 20:34 Dose: 15 mg Ziprasidone (Geodon Inj) 10 mg IM Q4H PRN PRN Reason: Agitation Physical Exam - Constitutional Appears: Well, Non-toxic, No Acute Distress - Head Exam Head Exam: ATRAUMATIC, NORMOCEPHALIC - Eye Exam Eye Exam: Normal appearance. absent: Conjunctival injection, Scleral icterus - ENT Exam ENT Exam: Mucous Membranes Moist, Normal Oropharynx - Respiratory Exam Respiratory Exam: NORMAL BREATHING PATTERN. absent: Accessory Muscle Use, Respiratory Distress Additional comments: non-productive cough - Cardiovascular Exam Cardiovascular Exam: RRR - GI/Abdominal Exam GI & Abdominal Exam: Soft. absent: Distended, Tenderness - Extremities Exam Extremities exam: Positive for: pedal edema (2+ pedal edema), pedal pulses present. Negative for: calf tenderness, tenderness Additional comments: erythema extending up to mid lower leg - Back Exam Back exam: NORMAL INSPECTION - Neurological Exam Neurological exam: Alert, Oriented x3 - Psychiatric Exam Psychiatric exam: Normal Affect, Normal Mood - Skin Skin Exam: Normal Color, Warm Additional comments: Area of mild skin breakdown/erythema in the right breast fold - Additional Findings Additional findings: R breast exam: area of mild induration in the depending portion of the breast, erythema and mild skin breakdown in the inferior breast fold, no palpable masses , no nipple retraction or discharge, normal contour, no axillary lymphadenopathy. Patient refused the left breast examination Results - Vital Signs Recent Vital Signs: Last Vital Signs Temp 98.3 F 09/02/16 05:42 Pulse 99 H 09/02/16 05:42 Resp 22 09/02/16 05:42 BP 100/58 L 09/02/16 05:42 Pulse Ox 95 09/02/16 05:42 - Labs Result Diagrams: 08/31/16 06:30 09/01/16 05:30 Labs: Laboratory Results - last 24 hr 09/01/16 05:30 Sodium 122 L Potassium 4.2 Chloride 83 L Carbon Dioxide 32 Anion Gap 11 BUN 22 H Creatinine 0.5 Est GFR ( Amer) > 60 Est GFR (Non-Af Amer) > 60 Random Glucose 252 H Calcium 8.8 Phosphorus 3.1 Magnesium 1.8 Total Bilirubin 0.6 Direct Bilirubin 0.4 AST 75 H ALT 94 H Alkaline Phosphatase 267 H Total Protein 5.5 L Albumin 2.8 L Globulin 2.7 Albumin/Globulin Ratio 1.0 L Assessment & Plan - Assessment and Plan (Free Text) Assessment: 51F complaining of right breast lump for 2 weeks No palpable breast or axillary masses. Mild induration of the right breast and mild erythema/skin breakdown in the right breast inferior fold Plan: Not highly suspicious for breast mass on physical exam and clinical history US of BL breasts to assess for breast mass vs cellulitis vs abscess. Mammogram if possible while inpatient, otherwise outpatient mammogram Serial examinations Apply barrier cream in the breast folds Thank you for this consult Further recs per Dr. Justice Horvath, PGY1
[2016-09-02] MEDS: Acetylcysteine 20% Inhal Soln (4ml) IH SCH ×2 (08:05→20:04)
[2016-09-02 08:06] LABS: ALB/GLOB RATIO 1.1 (1.1-1.8); ALKALINE PHOSPHATASE 276 U/L (38-133); ALT/SGPT 97 U/L (7-56); AST/SGOT 34 U/L (15-39); BILIRUBIN,DIRECT 0.4 mg/dL (0.0-0.4); BILIRUBIN,TOTAL 0.5 mg/dL (0.2-1.3); BLOOD UREA NITROGEN 20 mg/dL (7-21); CALCIUM 9.7 mg/dL (8.4-10.5); CARBON DIOXIDE 36 mmol/L (21-33); CHLORIDE 90 mmol/L (98-107); GFR AFRICAN-AMERICAN > 60; GLUCOSE,RANDOM 190 mg/dL (70-110); MAGNESIUM 1.6 mg/dL (1.7-2.2); PHOSPHOROUS 2.6 mg/dL (2.5-4.5); POTASSIUM 4.5 mmol/L (3.6-5.0); SODIUM 133 mmol/L (132-148); TOTAL PROTEIN 6.4 g/dL (5.8-8.3)
--- NOTE | 2016-09-02 08:06 | PN ---
DATE: 09/01/2016 REASON FOR CONSULTATION AND FOLLOWUP: Cardiac evaluation, shortness of breath, increased swelling of the leg, bilateral pleural effusion, decompensated congestive heart failure, acute on chronic systol ic dysfunction, hyponatremia. BRIEF CLINICAL HISTORY: This is a 51-year-old female with past medical history significant for diabe demarcus, hypertension, hyperlipidemia, congestive heart failure, bipolar disorder, hypothyroidism, mitral regurgitation, tricuspid regurgitation, status post chemo, history of Port-A-Cath, history of lympho ma, chemotherapy 8 years ago, history of recent right subclavian vein thrombosis, admitted with decom pensated congestive heart failure and hyponatremia. The patient started ____ Lasix, Primacor, approv ed by store receiving specialist as well, feels better, having 1 liter negative fluid balance today. PHYSICAL EXAMINATION: VITAL SIGNS: Temperature afebrile, heart rate 91, blood pressure 120/79. HEENT: PERRLA. Extraocular muscles intact. NECK: Supple. No carotid bruits. No thyromegaly. CHEST: Clear to auscultation. HEART: S1, S2 regular. ABDOMEN: Soft. EXTREMITIES: Clubbing and cyanosis negative. LABORATORY DATA: Blood workup as follows: WBC ____, hemoglobin ____, hematocrit ____, platelet coun t 358. Chemistry shows sodium 120, potassium 4.2, chloride ____, carbon dioxide 32, anion gap of ___ _ albumin 2.8. IMPRESSION: Multiple electrolyte abnormality, hyponatremia, fluid overload, decompensated congestive heart failure, acute on chronic systolic dysfunction, mitral and tricuspid regurgitation, chemothera py, nonischemic cardiomyopathy, status post cardiac catheterization, nonobstructive coronary artery d isease, history of ____ status post chemo, history of removal of Port-A-Cath, history of deep venous thrombosis of right upper extremity. RECOMMENDATION: Continue ____. Continue diuretics. Continue milrinone. Continue Eliquis. Continue ____ . Continue IV Lasix. We will follow with you. Repeat the lab in the morning. We will follow w ith you. Thank you, Dr. Roman, for providing the opportunity in taking care of the patient. Will repeat ____ in the morning as well as BMP. Mau Orozco MD cc: [id number] TT: 09/01/2016 19:52:23 Confirmation # [id number] Dictation # [id number] rn
[2016-09-02] MEDS: Levothyroxine 125 MCG TAB PO SCH (08:49)
[2016-09-02] MEDS: Pantoprazole 20 mg EC Tab PO SCH (08:50)
[2016-09-02] MEDS: Magnesium Oxide 400 mg Tab UD PO SCH ×2 (09:11→17:51)
[2016-09-02] MEDS: Potassium Chloride 20 mEq ER Tab PO SCH ×2 (09:11→17:51)
--- NOTE | 2016-09-02 09:13 | PN ---
DATE: 09/01/2016 The patient's legs feel better. Her leg edema is better. She is on IV milrinone, IV Lasix. She is stable breathing-childress. She complained of right breast hardness. No chest pain, no shortness of rosina th. PHYSICAL EXAMINATION: VITAL SIGNS: Temperature 98, heart rate 91, blood pressure 120/79, respiration 19, saturating 95% on room air. HEAD AND NECK: Normal. No JVD, no thyromegaly. LUNGS: Clear but diminished breath sounds, more on the right than the left. CARDIAC: First sound, second sound normal. ABDOMEN: Soft, nontender. EXTREMITIES: Mild edema. NEUROLOGIC: Normal. LABORATORY DATA: Shows sodium 122, potassium 4.2, chloride 83, bicarb 32, BUN 22, creatinine 0.5, bl ood sugar is 252. Liver function test noted for elevated AST 75, elevated ALT 94, elevated alk phos 264. Her TSH is 7.25. IMPRESSION AND PLAN: 1. Acute systolic heart failure on top of chronic. Continue diuretic. Continue IV milrinone and La noxin, ARETHA inhibitors, and follow up clinically. She seems improving. 2. Hypothyroidism. TSH is still high. Will increase her Synthroid to 125 mcg and we will see how s he does. 3. Right breast hardness and mass. Will get a mammogram. Maybe consider surgical consult for evalua tion. 4. Chronic schizophrenia. Seen by psychiatrist. Continue Risperdal. Continue Ativan 0.5 mg at bed time. Continue Geodon injection 10 mg IM q. 4 hours and continue Risperdal as 0.5 mg twice a day and 1 mg at bedtime. 5. Chronic obstructive pulmonary disease, bilateral pleural effusion. Continue inhaled bronchodilat ors. Follow up clinically. 6. Diabetes. Continue metformin. Insulin coverage - will increase the dosage to a medium scale cov erage and moderate coverage. 7. Will continue Mucomyst as expectorant. 8. Follow up clinically. 9. The patient also has hyponatremia. Seems that tolvaptan is working. Continue tolvaptan 15 mg p. o. daily. Will follow up with the family and consumer sciences professor. Richardson Roman MD cc: [phone] TT: 09/02/2016 09:11:56 Confirmation # [id number] Dictation # [id number] mn
[2016-09-02] MEDS: Tolvaptan 15 MG TAB PO SCH (09:48)
[2016-09-02] MEDS: Promethazine/Cod 6.25mg-10mg/5ml Syr UD PO SCH ×4 (10:00→21:29)
[2016-09-02] MEDS: Hydrocerin(120 gm) TOP PRN (10:24)
--- NOTE | 2016-09-02 12:05 | PN ---
DATE: 09/02/2016 Seen and examined at the bedside earlier today. She reports she is feeling better. Denies any short ness of breath, chest pain. No nausea, vomiting, or complaints of abdominal pain. Occasionally, sti ll having cough. No reports of any hematemesis or hemoptysis. The patient is moving her bowels. No reports of any melena or bleeding per rectum. VITAL SIGNS: Temperature 98.3, blood pressure is 100/58, pulse rate 95, respirations 22, 95% on room air. LABORATORY DATA: CMP: Sodium is 133 (this is improved), her potassium is 4.5, BUN is 20, creatinine 0.5, mag is at 1.6, total bilirubin 0.5, direct bili is 0.4, AST 34, ALT 97, alk phos is 276. This is slowly improving. The patient is on magnesium supplements. PHYSICAL EXAMINATION: HEENT: Sclerae are anicteric. NECK: Supple. CARDIAC: S1, S2. LUNGS: With good air entry, positive for rhonchi. No wheezing heard. ABDOMEN: With bowel sounds. Soft, not distended. No tenderness on palpation. LOWER EXTREMITIES: Positive bilateral edema. It is about the same. ASSESSMENT: This patient with decompensated congestive heart failure with acute on chronic systolic dysfunction. The patient with resolved hyponatremia, with elevated liver enzymes which are slowly tr ending down, probably secondary to the hepatic congestion. The patient also now found to have a righ t breast mass, pending mammogram; history of schizophrenia, also history of diabetes, chronic obstruc tive pulmonary disease and bilateral effusion. PLAN: Will continue to trend the liver enzymes which are slowly improving. Avoid, if necessary, any hepatotoxic medication. She is on Eliquis, history of DVT/PE; is on doxycycline, is on Lasix, on Pr imacor drip, PPI, potassium replacements, prednisone. The patient was seen and case discussed with Dylon Quigley. Faye Pricees HAWK cc: [id number] TT: 09/02/2016 12:04:45 Confirmation # [id number] Dictation # [id number] mn
--- NOTE | 2016-09-02 14:20 | PN ---
DATE: 09/02/2016 SUBJECTIVE: The patient is seen sitting in chair. She is awake, she is alert. She complains of cou gh. She complains of lower extremity edema. She also complains of right breast swelling. PHYSICAL EXAMINATION: GENERAL: Middle aged lady, sitting in chair. VITAL SIGNS: Blood pressure 109/62, heart rate 106, respiratory rate 18, temperature 97. HEENT: Normocephalic, atraumatic. NECK: Supple, no JVD. LUNGS: Crackles right base much greater than left. CARDIAC: S1, S2, regular rate and rhythm, no murmur, no rub. ABDOMEN: Obese, distended, soft, nontender, bowel sounds present. EXTREMITIES: 3+ pitting edema of the lower extremities. INTAKE AND OUTPUT: Not charted. LABORATORY DATA: WBC 10.6, hemoglobin 11, hematocrit 33, platelets 358. Sodium 133, potassium 4.5, chloride 90, CO2 36, BUN 12, creatinine 0.5, glucose 190, calcium 9.7, phosphorus 2.6, magnesium 1.6, AST 34, ALT 97, albumin 3.4. CURRENT MEDICATIONS: Ativan, Cepacol, Diflucan, Doryx, Eliquis, Geodon, Glucophage 1000 b.i.d., insu katlin, propranolol, potassium, Lanoxin, Lasix 40 IV daily, mag oxide 400 b.i.d., promethazine, predniso ne 20, Samsca 15 mg. ASSESSMENT: 1. Congestive heart failure, anasarca, cardiomyopathy. 2. Dilutional hyponatremia, responding to tolvaptan. 3. Right lower lobe pneumonia? 4. Non-insulin dependent diabetes mellitus. 5. Schizophrenia. 6. Congestive hepatopathy. PLAN: 1. Increase Lasix to 40 mg IV q. 12 starting tomorrow. 2. Monitor daily weights. 3. Strict intake and output. 4. Monitor electrolytes. 5. Continue antibiotics for pneumonia. 6. Physical therapy. Shannan Javier MD cc: [phone] TT: 09/02/2016 14:19:43 Confirmation # [id number] Dictation # [id number]
[2016-09-02] MEDS: Digoxin 250 mcg (0.25 mg) Tab PO SCH (17:51)
[2016-09-02] MEDS: metOLazone 2.5 MG TAB PO SCH (17:53)
--- NOTE | 2016-09-02 19:03 | PN ---
DATE: 09/02/2016 HISTORY OF PRESENT ILLNESS: The patient is a 51-year-old female currently being treated for multiple medical problems. She also has ongoing diagnosis of chronic schizophrenia. She was starte d on antipsychotic medicine. Her mental status reveals that she is much more alert, rational. Coope rative with interview. She is sleeping well at night. Denies suicidal ideation or any hallucination s or paranoia, although she is somewhat guarded. Her thinking is more integrated. She is more coope rative. CURRENT PSYCHOTROPIC MEDICINES: Include Risperdal 0.5 mg b.i.d. and at bedtime. She is also on sara zepam 0.5 mg at bedtime, Diflucan, Doryx, Eliquis, Glucophage, insulin, propranolol, potassium, Lanox in, Lasix, mag ox, and prednisone 20 mg daily and Samsca 15 mg. CURRENT LABORATORY DATA: White count 10,600. Her hemoglobin was 11, hematocrit 33, platelets 358,00 0. Sodium 133, potassium 4.9, chloride 90, CO2 36, BUN 12, creatinine 0.5, glucose 190. Calcium 9.7 , phosphorus 2.6, magnesium 1.6, AST 34, ALT 97, and albumin 3.4. VITAL SIGNS: Her blood pressure is 109/62, heart rate is 106, respiration 18 per minute and afebrile . IMPRESSION: She has chronic paranoid schizophrenia and/or schizoaffective disorder. She also has co ngestive heart failure, anasarca, cardiomyopathy, hyponatremia, right lower lobe pneumonia, non-insul in dependent diabetes mellitus, and congestive hepatopathy. PLAN: Currently, we will continue Risperdal. Continue Ativan. She has an order for Treasure p.r.n. f or extreme agitation. We will continue to monitor mental status. Louie Roach MD cc: [phone] TT: 09/02/2016 19:02:49 Confirmation # [id number] Dictation # [id number] ln
--- NOTE | 2016-09-02 19:11 | PN ---
DATE: 09/02/2016 REFERRING PHYSICIAN: Richardson Roman MD SUBJECTIVE: The patient is lying in the bed, feels better. Decreased cough, decreased shortness of breath. No nausea, vomiting, diarrhea. Still has significant leg swelling. OBJECTIVE: GENERAL: No acute distress. VITAL SIGNS: Temp is 98, heart rate is 106, respiratory rate is 20, blood pressure 109/62, pulse ox 95% on room air. HEENT: Moist mucous membranes. Crowded airway. NECK: Supple. No JVD. LUNGS: Have decreased breath sounds at the bases, scattered rhonchi. HEART: S1, S2. ABDOMEN: Soft, nontender, nondistended. EXTREMITIES: Significant edema up to the hips. NEUROLOGIC: Awake, alert, follows simple commands. MEDICATIONS: She is on Mucomyst 20% inhaled twice a day, Ativan 0.5 mg at bedtime, Cepacol lozenges q. 12 hours p.r.n., Diflucan 200 mg daily, doxycycline 100 mg twice a day, Eliquis 5 mg twice a day, Geodon 10 mg q. 4 hours p.r.n., Glucophage 1000 mg twice a day, insulin coverage high-dose q.i. d. p.r.n., Inderal 10 mg 3 times a day, potassium 20 mEq twice a day, digoxin 0.25 mg daily, Lasix 40 mg twice a day, Levemir 10 units subQ at bedtime, mag oxide 400 mg twice a day, Phenergan with codei ne 5 mL q.i.d., prednisone 20 mg daily. She is on IV Primacor, Protonix 20 mg daily, Risperdal 0.5 m g twice a day and 1 mg at bedtime, tolvaptan 15 mg daily, sodium chloride 1 g with the meals, Synthro id 125 mcg daily, Xopenex inhaled q. 8 hours, Zaroxolyn 2.5 mg daily, Zofran on a p.r.n. basis. LABORATORY DATA: Shows sodium 133, potassium 4.5, chloride 90, bicarbonate 36, BUN 20, creatinine 0. 5, glucose 190, calcium is 9.7, phosphorus 2.6, magnesium 1.6, AST 34, ALT 97, alk phos is 276, album in is 3.4. Urine has yeast. IMPRESSION AND PLAN: Cardiomyopathy, with sleep apnea syndrome, pleural effusion, schizophrenia, his tory of lymphoma, chronic obstructive lung disease, noncompliant with the followup, medication and CP AP. We will continue Primacor. Continue to supplement sodium. Diuretics, antibiotics, p.o. predniso ne, inhaled bronchodilator, incentive spirometer. Consultation about excessive fluid intake; she exp ressed understanding. Elevate lower extremity. Follow up labs in the morning. We will follow with you. Mau More MD cc: [phone] TT: 09/02/2016 19:10:45 Confirmation # [id number] Dictation # [id number] dn
[2016-09-02] MEDS: Insulin Detemir 100 units/ml Vial (Levemir) SC SCH (22:12)
[2016-09-03] MEDS: Milrinone 20mg/100ml D5W 100 ML IV PRN (02:25)
[2016-09-03 06:50] LABS: ADD MANUAL DIFF? NO
[2016-09-03 07:11] LABS: ALB/GLOB RATIO 1.1 (1.1-1.8); ALKALINE PHOSPHATASE 232 U/L (38-133); ALT/SGPT 84 U/L (7-56); AST/SGOT 36 U/L (15-39); BILIRUBIN,DIRECT 0.4 mg/dL (0.0-0.4); BILIRUBIN,TOTAL 0.5 mg/dL (0.2-1.3); BLOOD UREA NITROGEN 19 mg/dL (7-21); CALCIUM 9.5 mg/dL (8.4-10.5); CARBON DIOXIDE 35 mmol/L (21-33); CHLORIDE 94 mmol/L (98-107); GFR AFRICAN-AMERICAN > 60; GLUCOSE,RANDOM 178 mg/dL (70-110); MAGNESIUM 1.5 mg/dL (1.7-2.2); PHOSPHOROUS 2.7 mg/dL (2.5-4.5); SODIUM 134 mmol/L (132-148); TOTAL PROTEIN 5.8 g/dL (5.8-8.3)
[2016-09-03 07:29] LABS: BASO # 0.12 K/mm3 (0.0-2.0); BASO % 0.8 % (0.0-3.0); EOS # 0.1 (0.0-0.7); EOS % 0.5 % (1.5-5.0); GRAN # 8.31 (1.4-6.5); GRAN % 57.4 % (50.0-68.0); HEMATOCRIT 32.6 % (36.0-48.0); LYMPH # 4.6 (1.2-3.4); LYMPH % 31.9 % (22.0-35.0); MEAN CELL VOLUME 76.3 fL (80.0-105.0); MEAN CORPUSCULAR HEMOGLOBIN 24.6 pg (25.0-35.0); MEAN CORPUSCULAR HGB CONC 32.2 g/dl (31.0-37.0); MEAN PLATELET VOLUME 9.4 fl (7.0-11.0); MONO # 1.4 (0.1-0.6); MONO % 9.4 % (1.0-6.0); PLATELET COUNT 409 10^3/uL (120.0-450.0); RED CELL DISTRIBUTION WIDTH 19.8 % (11.5-14.5); WHITE BLOOD COUNT 14.5 10^3/ul (4.5-11.0)
[2016-09-03] MEDS ORDERED: Nystatin 100,000 Units/gm Topical Pow(15 gm) TOP PRN (09:05)
--- NOTE | 2016-09-03 09:05 | CP.PCM.PN ---
Subjective - Date & Time of Evaluation Date of Evaluation: 09/03/16 Time of Evaluation: 09:01 - Subjective Subjective: Surgery for Dr. Rendon Pt s&e. TY. Denies F/C/N/V/D/CP/SOB. No complaints. Tolerating diet. +OOB. + void Objective - Vital Signs/Intake and Output Vital Signs (last 24 hours): Temp Pulse Resp BP Pulse Ox 97.9 F 100 H 20 96/53 L 96 09/03/16 06:00 09/03/16 06:00 09/03/16 06:00 09/03/16 06:00 09/03/16 06:00 Intake and Output: 09/03/16 09/03/16 06:59 18:59 Intake Total 966 Output Total 2 Balance 964 - Medications Medications: Current Medications Acetylcysteine (Acetylcysteine 20%) 3 ml IH BIDRESP [facility] Last Admin: 09/02/16 20:04 Dose: Not Given Apixaban (Eliquis) 5 mg PO BID [facility] PRN Reason: Protocol Last Admin: 09/02/16 17:49 Dose: 5 mg Benzocaine/Menthol (Cepacol Sore Throat) 1 mirna MT Q2H PRN PRN Reason: Sore Throat Last Admin: 09/02/16 17:48 Dose: 1 mirna Digoxin (Lanoxin) 0.25 mg PO 1400 [facility] Last Admin: 09/02/16 17:51 Dose: 0.25 mg Doxycycline Hyclate (Doryx) 100 mg PO Q12 [facility] PRN Reason: Protocol Last Admin: 09/02/16 21:29 Dose: 100 mg Fluconazole (Diflucan) 200 mg PO DAILY [facility] PRN Reason: Protocol Last Admin: 09/02/16 09:10 Dose: 200 mg Furosemide (Lasix) 40 mg IVP BID [facility] Milrinone Lactate/Dextrose (Primacor 20mg/100ml D5w) 100 mls @ 4.409 mls/hr IV .[id number] PRN; Protocol; 0.2 MCG/KG/MIN PRN Reason: TITRATE PER MD ORDER Last Admin: 09/03/16 02:25 Dose: 0.2 mcg/kg/min, 4.409 mls/hr Insulin Detemir (Levemir) 10 unit SC HS [facility] Last Admin: 09/02/16 22:12 Dose: 10 unit Insulin Human Regular (Humulin R Low) 0 units SC ACHS [facility] PRN Reason: Protocol Last Admin: 09/02/16 22:12 Dose: 2 units Levalbuterol HCl (Xopenex) 0.63 mg IH Q8 [facility] Last Admin: 09/02/16 20:05 Dose: 0.63 mg Levothyroxine Sodium (Synthroid) 125 mcg PO ACB [facility] Last Admin: 09/02/16 08:49 Dose: 125 mcg Lisinopril (Zestril) 2.5 mg PO DAILY [facility] Last Admin: 09/02/16 09:11 Dose: 2.5 mg Lorazepam (Ativan) 0.5 mg PO HS [facility] Last Admin: 09/02/16 22:13 Dose: 0.5 mg Magnesium Oxide (Mag-Ox) 400 mg PO BID [facility] Last Admin: 09/02/16 17:51 Dose: 400 mg Metformin HCl (Glucophage) 1,000 mg PO BID [facility] Last Admin: 09/02/16 17:49 Dose: 1,000 mg Metolazone (Zaroxolyn) 2.5 mg PO DAILY [facility] Last Admin: 09/02/16 17:53 Dose: 2.5 mg Multi-Ingredient Cream (Hydrocerin Cream) 0 ea TOP QID PRN PRN Reason: skin breakdown Last Admin: 09/02/16 10:24 Dose: 1 applic Ondansetron HCl (Zofran Inj) 4 mg IVP Q4 PRN PRN Reason: Nausea/Vomiting Pantoprazole Sodium (Protonix Ec Tab) 20 mg PO ACB [facility] Last Admin: 09/02/16 08:50 Dose: 20 mg Potassium Chloride (K-Dur 20 Meq Er Tab) 20 meq PO BID [facility] Last Admin: 09/02/16 17:51 Dose: 20 meq Prednisone (Prednisone Tab) 20 mg PO DAILY [facility] Last Admin: 09/02/16 09:11 Dose: 20 mg Promethazine HCl/Codeine (Phenergan/Codeine Oral Syrup) 5 ml PO QID [facility] Last Admin: 09/02/16 21:29 Dose: 5 ml Propranolol HCl (Inderal) 10 mg PO TID [facility] Last Admin: 09/02/16 17:51 Dose: 10 mg Risperidone (Risperdal Tab) 0.5 mg PO 1000,1600 [facility] Last Admin: 09/02/16 17:53 Dose: 0.5 mg Risperidone (Risperdal Tab) 1 mg PO HS [facility] Last Admin: 09/02/16 22:12 Dose: 1 mg Simethicone (Mylicon Chew Tab) 80 mg PO QID PRN PRN Reason: Flatulence Sodium Chloride (Sodium Chloride Tab) 1 gm PO WM [facility] Last Admin: 09/02/16 18:44 Dose: 1 gm Ziprasidone (Geodon Inj) 10 mg IM Q4H PRN PRN Reason: Agitation - Labs Labs: 09/03/16 06:30 09/03/16 06:30 PT 13.6 Seconds (9.9-11.8) H 08/29/16 17:40 INR 1.26 (0.93-1.08) H 08/29/16 17:40 APTT 26.8 Seconds (23.7-30.8) 08/29/16 17:40 - Constitutional Appears: No Acute Distress - Head Exam Head Exam: ATRAUMATIC, NORMAL INSPECTION, NORMOCEPHALIC - Eye Exam Eye Exam: EOMI, Normal appearance, PERRL Pupil Exam: NORMAL ACCOMODATION, PERRL - ENT Exam ENT Exam: Mucous Membranes Moist, Normal Exam - Neck Exam Neck Exam: Full ROM, Normal Inspection. absent: Lymphadenopathy - Respiratory Exam Respiratory Exam: Clear to Ausculation Bilateral, NORMAL BREATHING PATTERN - Cardiovascular Exam Cardiovascular Exam: REGULAR RHYTHM, +S1, +S2. absent: Murmur - GI/Abdominal Exam GI & Abdominal Exam: Soft, Normal Bowel Sounds. absent: Distended, Tenderness - Extremities Exam Extremities Exam: Full ROM, Normal Capillary Refill, Normal Inspection - Back Exam Back Exam: NORMAL INSPECTION - Neurological Exam Neurological Exam: Alert, Awake, CN II-XII Intact, Normal Gait, Oriented x3 - Psychiatric Exam Psychiatric exam: Normal Affect, Normal Mood - Skin Skin Exam: Dry, Erythema, Intact, Warm - Additional Findings Additional findings: Breast. R breast larger than L . Old port scar well healed. Inferior breast fold in indurated. Mildly erythematous. Assessment and Plan - Assessment and Plan (Free Text) Assessment: 51F complaining of right breast lump for 2 weeks No palpable breast or axillary masses. Mild induration of the right breast and mild erythema/skin breakdown in the right breast inferior fold Plan: Not highly suspicious for breast mass on physical exam and clinical history US of BL breasts to assess for breast mass vs cellulitis vs abscess. Mammogram if possible while inpatient, otherwise outpatient mammogram Serial examinations Nystatin powder in the breast folds Further recs per Dr. Rendon
[2016-09-03] MEDS: metOLazone 2.5 MG TAB PO SCH (09:21)
[2016-09-03] MEDS: Magnesium Oxide 400 mg Tab UD PO SCH ×2 (09:22→17:57)
[2016-09-03] MEDS: Insulin Reg-LOW-Coverage SC SCH ×4 (09:23→22:50)
[2016-09-03] MEDS: Potassium Chloride 20 mEq ER Tab PO SCH (09:27)
[2016-09-03] MEDS: Pantoprazole 20 mg EC Tab PO SCH (09:28)
[2016-09-03] MEDS: Levothyroxine 125 MCG TAB PO SCH (09:28)
[2016-09-03] MEDS ORDERED: metOLazone 2.5 MG TAB PO SCH (09:50)
[2016-09-03] MEDS: Levalbuterol 0.63 MG/3 ML Inhal Soln UD IH SCH ×2 (09:55→19:45)
[2016-09-03] MEDS: Acetylcysteine 20% Inhal Soln (4ml) IH SCH ×2 (09:55→19:45)
[2016-09-03] MEDS: Promethazine/Cod 6.25mg-10mg/5ml Syr UD PO SCH ×5 (10:00→21:35)
--- NOTE | 2016-09-03 10:43 | PN ---
DATE: 09/03/2016 SUBJECTIVE: The patient is currently seen sitting in a chair. Her legs are swollen. She remains on IV Primacor. She is off tolvaptan. Her sodium level has normalized nicely. Her renal parameters r emain stable. She is being treated for lower extremity edema and a severe cardiomyopathy. MEDICATIONS: Medication list reviewed. The patient is currently on acetylcysteine, Ativan, Cepacol, Diflucan, Doryx, Eliquis, Geodon, Glucophage, insulin, Hydrocerin, Inderal, K tabs, Lanoxin, IV Lasi x, Levemir, mag oxide, Mylicon, nystatin, Phenergan with codeine p.r.n., prednisone, Primacor drip, P rotonix, Risperdal, sodium chloride tab, Synthroid, Xopenex, Zaroxolyn, Zestril, and Zofran p.r.n. OBJECTIVE: INTAKE AND OUTPUT: Intake 1985, output not charted. VITAL SIGNS: Blood pressure is 96/53, temperature 97.9, respiratory rate is 20 with a pulse of 100. HEENT: Shows her to be normocephalic, atraumatic. Conjunctivae are pale. Sclerae are nonicteric. NECK: Supple, no neck vein distention. CHEST: Diminished breath sounds at the bases. No rales, no rhonchi, no wheezing. CARDIOVASCULAR: Shows S1, S2 to be normal. No S3, no S4. No rub. MR/TR. ABDOMEN: Soft. Nondistended. Bowel sounds normal. No rebound, no guarding. EXTREMITIES: Show 3+ pitting edema of her lower extremity with her legs down. No cyanosis, no clubb ing. LABORATORY DATA AND IMAGING: Labs today show a white blood cell count of 14.5, hemoglobin of 10.5 wi th a platelet count of 409,000. Chemistries today show a sodium of 134, potassium is 5.0, chloride 9 4 with a CO2 of 35. BUN 19 with a creatinine of 0.5. Glucose is 178. Calcium and phosphorus are no rmal at 9.5 and 2.7, magnesium is 1.5. Slight elevation of her ALT normal AST. Alkaline phosphatase slightly elevated at 232. Bilirubin is normal. Albumin is 3.0. ASSESSMENT: 1. Status post severe dilutional hyponatremia secondary to volume overload and cardiomyopathy. The patient has responded nicely to tolvaptan together with inotropic agents together with diuretic thera py. However, she still remains edematous. I will increase her metolazone to 5 mg a day and continue IV Lasix. We will need to monitor her blood work closely. Her potassium level right now is 5.0 and I will decrease her K tabs to 1 a day. Magnesium level is borderline low and she will continue magn esium supplements. 2. Chronic obstructive pulmonary disease. Continue inhalation therapy. 3. Severe cardiomyopathy with valvular heart disease. The patient being followed by cardiologyblas on inotropic agents. 4. History of deep venous thrombosis and pulmonary embolism. The patient continues on Eliquis. 5. History of non-insulin dependent diabetes mellitus. The patient continues on sliding scale insul in and long acting insulin. 6. History of schizophrenia, on medical therapy. 7. History of anemia, stable. Hemoglobin is in the 10-11 range. PLAN: 1. Continue IV Lasix 40 mg q. 12 hours and I will increase Zaroxolyn to 5 mg a day. 2. Continue to monitor daily weights and accurate I's and O's. 3. Follow labs on a daily basis. 4. Continue to adjust potassium and magnesium supplements. 5. Continue antibiotic therapy for questionable right lower lobe infiltrate/pneumonia. 6. Continue to monitor patient on telemetry. Ej Aguirre MD cc: [id number] TT: 09/03/2016 10:42:23 Confirmation # [id number] Dictation # [id number] tn
[2016-09-03] MEDS: Benzocaine/Menthol (Cepacol) Lozenge MT PRN (11:57)
--- NOTE | 2016-09-03 14:02 | PN ---
DATE: 09/03/2016 REASON FOR CONSULTATION AND FOLLOWUP: Cardiac evaluation, shortness of breath, increased swelling of the leg, bilateral pleural effusion, decompensated congestive heart failure, acute on chronic systol ic dysfunction, hyponatremia, improving. BRIEF CLINICAL HISTORY: A 51-year-old male with past medical history significant for diabetes, hyper tension, hyperlipidemia, congestive heart failure, bipolar disorder, hypothyroidism, ____, mitral reg urgitation, tricuspid regurgitation, status post chemo for lymphoma, history of status post removal o f Port-A-Cath, history of a DVT of right upper extremity. Admitted with swelling of the leg. The pa tient on Lasix, Primacor, tazobactam on for hyponatremia. Feels better, but is started also on Zarox olyn. PHYSICAL EXAMINATION: VITAL SIGNS: Temperature afebrile, heart rate 113, blood pressure 113/84. HEENT: PERRLA. Extraocular muscles intact. NECK: Supple. No carotid bruits. No thyromegaly. CHEST: Clear to auscultation. HEART: S1, S2 regular. ABDOMEN: Soft. EXTREMITIES: Clubbing and cyanosis negative. LABORATORY DATA: Blood workup as follows: WBC 14.5, hemoglobin 10, hematocrit 32.6, platelet count 409. Chemistry shows sodium 134, potassium 5, chloride 94, carbon dioxide 35, anion gap of 10, BUN 1 9, creatinine 0.5. Blood glucose 449. IMPRESSION: Hyponatremia, significantly improved, hypokalemia, improved, decompensated congestive he art failure, acute on chronic systolic dysfunction, history of lymphoma, history of nonobstructive co ronary artery disease, status post cardiac catheterization, mitral regurgitation, tricuspid regurgita tion, status post removal of Port-A-Cath, history of a deep venous thrombosis of right extremity. RECOMMENDATION: Continue diuretics. Continue ____ added on Zaroxolyn, continue Eliquis 5 mg b.i.d. We will follow with you. Thank you, Dr. Roman, for providing us the opportunity in taking care of the patient. We will follo w with you. Continue propranolol for tachycardia continue dig. Mau Orozco MD cc: [id number] TT: 09/03/2016 14:01:16 Confirmation # [id number] Dictation # [id number] jn
[2016-09-03] MEDS: Digoxin 250 mcg (0.25 mg) Tab PO SCH (14:34)
[2016-09-03] MEDS: metOLazone 5 MG TAB PO SCH (14:35)
[2016-09-03] MEDS ORDERED: Insulin Detemir 100 units/ml Vial (Levemir) SC STA (17:25)
--- NOTE | 2016-09-03 17:50 | PN ---
DATE: 09/03/2016 REFERRING PHYSICIAN: Dr. Roman. SUBJECTIVE: She is lying in the bed, head at 45 degrees. Cough is better. Shortness of breath is b vaughn. No nausea, no vomiting, no diarrhea. There is significant leg swelling, mild erythema on the [place] of the leg. OBJECTIVE: GENERAL: In no acute distress. VITAL SIGNS: Temperature is 98, heart rate is 100, respiratory rate is 20, blood pressure 133/84, pu lse ox 96% on room air. HEENT: Moist mucous membranes. Crowded airway. NECK: Supple. No JVD. LUNGS: Has decreased breath sounds at the bases, a few scattered rhonchi. HEART: S1, S2. ABDOMEN: Soft, nontender. No organomegaly. EXTREMITIES: Has significant edema. NEUROLOGIC: Awake, alert, follows simple commands. MEDICATIONS: She is on Ativan 0.5 mg at bedtime, Cepacol lozenges q.2 hours p.r.n., Diflucan 200 mg daily, doxycycline 100 mg twice a day, Eliquis 5 mg twice a day, Geodon 10 mg q.4 hours p.r.n., metfo rmin 1000 mg twice a day, insulin coverage, Inderal 10 mg 3 times a day, potassium 20 mEq daily, digo sabi 0.25 mg daily, Lasix 40 mg twice a day, Levemir 10 units subQ at bedtime, mag oxide 400 mg twice a day, Phenergan with codeine 5 mL q.i.d., prednisone 20 mg daily, milrinone IV drip, Protonix 20 mg daily, Risperdal 1 mg at bedtime, sodium bicarbonate 1 gram with meals, Synthroid 125 mcg p.o. ACB, X openex 163 three times a day, Zaroxolyn 5 mg daily, Zestril 2.5 mg daily, Zofran on a p.r.n. basis. LABORATORY DATA: Shows hemoglobin 10.5, hematocrit 32.6, WBC 14.5, platelet is 409. Sodium 134, pot assium 5.0, chloride 94, bicarbonate 35, BUN 19, creatinine 0.5, glucose today was 449, that was by luis stack, but in the morning it was 178. Calcium 9.5, phosphorus 2.7, magnesium 1.5, AST 36, ALT 8 4, alkaline phosphatase is 232, albumin is 3.0. IMPRESSION AND PLAN: Cardiomyopathy with sleep apnea syndrome, pleural effusion, schizophrenia, hist ory of lymphoma, chronic obstructive lung disease, noncompliant with followup and medication, and als o p.o. fluid intake. Refused to take CPAP. Will discontinue her supplement sodium, increase Lasix a nd continue Primacor. Follow up electrolytes in the morning. Fall precautions. Sleep apnea precaut ions. Thank you and will follow with you. Mau More MD cc: [id number] TT: 09/03/2016 17:49:54 Confirmation # [id number] Dictation # [id number] dn
[2016-09-03] MEDS: Insulin Detemir 100 units/ml Vial (Levemir) SC SCH (22:49)
--- NOTE | 2016-09-03 23:16 | PN ---
DATE: 09/02/2016 REASON FOR CONSULTATION: Cardiac evaluation, shortness of breath, increased leg swelling, bilateral pleural effusion, decompensated congestive heart failure, [id number] systolic dysfunction, hypo natremia, resolving. BRIEF CLINICAL HISTORY: This is a 51-year-old female with a past medical history significant for easton betes, hypertension, hyperlipidemia, congestive heart failure, nonischemic cardiomyopathy, bipolar di sorder, hypothyroidism, mitral regurgitation and tricuspid regurgitation, status post chemo for lymph sandra, chemo, status post right upper extremity deep venous thrombosis, admitted with shortness o f breath and increased leg swelling and hyponatremia. The patient Lasix and hyponatremia impro ida, but the patient's swelling of the leg is more pronounced. PHYSICAL EXAMINATION: VITAL SIGNS: Temperature afebrile, heart rate 106, blood pressure 109/62. HEENT: PERRLA. Extraocular muscles intact. NECK: Supple. No carotid bruits. No thyromegaly. CHEST: Clear to auscultation. HEART: S1, S2 regular. ABDOMEN: Soft. EXTREMITIES: Clubbing and cyanosis negative. Has 2+ pedal edema. IMPRESSION: Decompensated congestive heart failure, mhggu-[id number] systolic dysfunction, , mi tral and tricuspid regurgitation, nonischemic cardiomyopathy, , nonobstructive coronary artery d isease, hyponatremia. RECOMMENDATION: Give 2.5 of Zaroxolyn for leg edema for more excretion. Continue Eliquis for DVT of right upper extremity. Continue 10 mg . Will follow with you and repeat the blood workup in the morning. Thank you, Dr. Roman, for providing me the opportunity in taking care of this patient. Mau Orozco MD cc: [id number] TT: 09/02/2016 19:00:32 Confirmation # [id number] Dictation # [id number] dn
[2016-09-04] MEDS: Milrinone 20mg/100ml D5W 100 ML IV PRN (00:59)
[2016-09-04 06:42] LABS: HEMATOCRIT 31.4 % (36.0-48.0); MEAN CELL VOLUME 75.3 fL (80.0-105.0); MEAN CORPUSCULAR HEMOGLOBIN 24.7 pg (25.0-35.0); MEAN CORPUSCULAR HGB CONC 32.8 g/dl (31.0-37.0); MEAN PLATELET VOLUME 9.2 fl (7.0-11.0); RED CELL DISTRIBUTION WIDTH 19.5 % (11.5-14.5); WHITE BLOOD COUNT 15.3 10^3/ul (4.5-11.0)
[2016-09-04 06:57] LABS: ALKALINE PHOSPHATASE 198 U/L (38-133); ALT/SGPT 71 U/L (7-56); AST/SGOT 66 U/L (15-39); BILIRUBIN,TOTAL 0.5 mg/dL (0.2-1.3); BLOOD UREA NITROGEN 19 mg/dL (7-21); CALCIUM 9.6 mg/dL (8.4-10.5); CARBON DIOXIDE 36 mmol/L (21-33); CHLORIDE 92 mmol/L (98-107); GFR AFRICAN-AMERICAN > 60; GLUCOSE,RANDOM 59 mg/dL (70-110); MAGNESIUM 1.3 mg/dL (1.7-2.2); POTASSIUM 4.1 mmol/L (3.6-5.0); SODIUM 132 mmol/L (132-148); TOTAL PROTEIN 5.7 g/dL (5.8-8.3)
[2016-09-04 07:07] LABS: FREE T4 1.38 ng/dL (0.78-2.19); T4 9.1 ug/dL (5.5-11.0)
[2016-09-04] MEDS: Insulin Reg-LOW-Coverage SC SCH ×4 (08:17→21:49)
[2016-09-04] MEDS: Levalbuterol 0.63 MG/3 ML Inhal Soln UD IH SCH ×3 (08:28→21:15)
[2016-09-04] MEDS: Acetylcysteine 20% Inhal Soln (4ml) IH SCH ×2 (08:28→21:15)
--- NOTE | 2016-09-04 08:41 | CP.PCM.PN ---
Subjective - Date & Time of Evaluation Date of Evaluation: 09/04/16 Time of Evaluation: 08:38 - Subjective Subjective: Surgery: Dr. Rendon Pt seen and examined. No acute overnight events. States she feels ok. Denies breast pain or discomfort. Tolerating diet, ambulating. Objective - Vital Signs/Intake and Output Vital Signs (last 24 hours): Temp Pulse Resp BP Pulse Ox 98.2 F 101 H 18 94/44 L 95 09/04/16 06:00 09/04/16 06:00 09/04/16 06:00 09/04/16 06:00 09/04/16 06:00 Intake and Output: 09/04/16 09/04/16 06:59 18:59 Intake Total 100 120 Balance 100 120 - Medications Medications: Current Medications Acetylcysteine (Acetylcysteine 20%) 3 ml IH BIDRESP [facility] Last Admin: 09/04/16 08:28 Dose: Not Given Apixaban (Eliquis) 5 mg PO BID [facility] PRN Reason: Protocol Last Admin: 09/03/16 17:54 Dose: 5 mg Benzocaine/Menthol (Cepacol Sore Throat) 1 mirna MT Q2H PRN PRN Reason: Sore Throat Last Admin: 09/03/16 11:57 Dose: 1 mirna Digoxin (Lanoxin) 0.25 mg PO 1400 [facility] Last Admin: 09/03/16 14:34 Dose: 0.25 mg Doxycycline Hyclate (Doryx) 100 mg PO Q12 [facility] PRN Reason: Protocol Last Admin: 09/03/16 21:35 Dose: 100 mg Fluconazole (Diflucan) 200 mg PO DAILY [facility] PRN Reason: Protocol Last Admin: 09/03/16 09:22 Dose: 200 mg Furosemide (Lasix) 80 mg IVP BID [facility] Last Admin: 09/03/16 17:29 Dose: 80 mg Glimepiride (Amaryl) 1 mg PO DAILY [facility] Last Admin: 09/03/16 17:54 Dose: 1 mg Milrinone Lactate/Dextrose (Primacor 20mg/100ml D5w) 100 mls @ 4.409 mls/hr IV .[id number] PRN; Protocol; 0.2 MCG/KG/MIN PRN Reason: TITRATE PER MD ORDER Last Admin: 09/04/16 00:59 Dose: 0.2 mcg/kg/min, 4.409 mls/hr Insulin Detemir (Levemir) 10 unit SC [facility] Last Admin: 09/03/16 22:49 Dose: 10 unit Insulin Human Regular (Humulin R Low) 0 units SC [facility] PRN Reason: Protocol Last Admin: 09/04/16 08:17 Dose: Not Given Levalbuterol HCl (Xopenex) 0.63 mg IH TIDRESP [facility] Last Admin: 09/04/16 08:28 Dose: 0.63 mg Levothyroxine Sodium (Synthroid) 125 mcg PO ACB [facility] Last Admin: 09/03/16 09:28 Dose: 125 mcg Lisinopril (Zestril) 2.5 mg PO DAILY [facility] Last Admin: 09/03/16 09:21 Dose: 2.5 mg Lorazepam (Ativan) 0.5 mg PO [facility] Last Admin: 09/03/16 22:50 Dose: 0.5 mg Magnesium Oxide (Mag-Ox) 400 mg PO BID [facility] Last Admin: 09/03/16 17:57 Dose: 400 mg Metformin HCl (Glucophage) 1,000 mg PO BID [facility] Last Admin: 09/03/16 17:54 Dose: 1,000 mg Metolazone (Zaroxolyn) 5 mg PO DAILY [facility] Last Admin: 09/03/16 14:35 Dose: 5 mg Multi-Ingredient Cream (Hydrocerin Cream) 0 ea TOP QID PRN PRN Reason: skin breakdown Last Admin: 09/02/16 10:24 Dose: 1 applic Nystatin (Nystop Topical Powder) 0 gm TOP DAILY PRN PRN Reason: Rash Ondansetron HCl (Zofran Inj) 4 mg IVP Q4 PRN PRN Reason: Nausea/Vomiting Pantoprazole Sodium (Protonix Ec Tab) 20 mg PO ACB [facility] Last Admin: 09/03/16 09:28 Dose: 20 mg Potassium Chloride (K-Dur 20 Meq Er Tab) 20 meq PO BRK [facility] Prednisone (Prednisone Tab) 20 mg PO DAILY [facility] Last Admin: 09/03/16 09:21 Dose: 20 mg Promethazine HCl/Codeine (Phenergan/Codeine Oral Syrup) 5 ml PO QID [facility] Last Admin: 09/03/16 21:35 Dose: 5 ml Propranolol HCl (Inderal) 10 mg PO TID [facility] Last Admin: 09/03/16 17:55 Dose: 10 mg Risperidone (Risperdal Tab) 0.5 mg PO 1000,1600 [facility] Last Admin: 09/03/16 17:57 Dose: 0.5 mg Risperidone (Risperdal Tab) 1 mg PO HS [facility] Last Admin: 09/03/16 22:50 Dose: 1 mg Simethicone (Mylicon Chew Tab) 80 mg PO QID PRN PRN Reason: Flatulence Ziprasidone (Geodon Inj) 10 mg IM Q4H PRN PRN Reason: Agitation - Labs Labs: 09/04/16 06:00 09/04/16 06:00 PT 13.6 Seconds (9.9-11.8) H 08/29/16 17:40 INR 1.26 (0.93-1.08) H 08/29/16 17:40 APTT 26.8 Seconds (23.7-30.8) 08/29/16 17:40 - Constitutional Appears: Well, No Acute Distress - Head Exam Head Exam: ATRAUMATIC, NORMOCEPHALIC - Eye Exam Eye Exam: Normal appearance - ENT Exam ENT Exam: Mucous Membranes Moist - Respiratory Exam Respiratory Exam: NORMAL BREATHING PATTERN - Cardiovascular Exam Cardiovascular Exam: RRR - GI/Abdominal Exam GI & Abdominal Exam: Soft - Neurological Exam Neurological Exam: Alert, Awake, Oriented x3 - Skin Skin Exam: Dry, Warm - Additional Findings Additional findings: Right breast without erythema or palpable mass; increase in size compared to L breast Assessment and Plan - Assessment and Plan (Free Text) Assessment: 51F with R breast enlargement r/o malignancy Plan: - f/u mammogram/US - f/u subclavian vein US for thrombosis; pt had a chemoport on the left sided for years - no further surgical intervention planned at this time - d/w Dr. Justice Barros, PGY-2 Surgery
[2016-09-04] MEDS: Pantoprazole 20 mg EC Tab PO SCH (08:43)
[2016-09-04] MEDS: Potassium Chloride 20 mEq ER Tab PO SCH (08:43)
[2016-09-04] MEDS: Levothyroxine 125 MCG TAB PO SCH (08:43)
--- NOTE | 2016-09-04 08:47 | PN ---
DATE: 09/03/2016 This patient was seen and evaluated earlier. No complaints of any abdominal pain, tolerating the diet. PHYSICAL EXAMINATION: VITAL SIGNS: Temperature is 97.8, pulse 108. The blood pressure is 127/82. HEENT: Atraumatic, anicteric. NECK: Supple. HEART: S1, S2 regular. LUNGS: ____ reduced at the base. ABDOMEN: Soft. There is no tenderness. EXTREMITIES: Bilateral edema present, less than before. LABORATORY DATA: Hemoglobin 10.5, hematocrit 32.5, WBC 14.5, platelets 409. BUN 19, creatinine 0.5. LFTs shows a downward trend. The transaminase is improved. AST is 36. ALT is 84. Alkaline phosphatase 232. LFTs have been showing a downward trend. Most likely cause for the LFT elevation in her case could be due to hepatic congestion, showing downward trend. This patient has cardiomyopathy, obstructive sleep apnea, pleural effusion, history of lymphoma in the past, COPD. Follow up the LFTs. Thank you very much for allowing us to participate in the care of the patient. Renuka Quigley MD cc: [id number] TT: 09/04/2016 08:47:22 Confirmation # [id number] Dictation # [id number]
[2016-09-04] MEDS ORDERED: Magnesium Sulfate 2 GM in Sodium Chloride 0.9% 100 ML IV ONE (09:10)
--- NOTE | 2016-09-04 10:26 | PN ---
DATE: 09/04/2016 SUBJECTIVE: The patient is currently seen sitting in a chair. She continues to have lower extremity edema. She is no longer short of breath. The patient remains on IV Primacor. She is on combinatio n of IV Lasix and oral Zaroxolyn therapy. No accurate intake and output have been charted. The ervin ent's weight is down to 151 pounds and 5 ounces. MEDICATIONS: Medication list reviewed. The patient is currently on acetylcysteine, Amaryl, Ativan, Cepacol, Diflucan, Doryx, Eliquis, Geodon, Glucophage, insulin, Hydrocerin cream, Inderal, potassium, Lanoxin, Levemir, mag oxide, Mylicon, Nystop topical powder, Phenergan with codeine, prednisone, Domenica macor drip, Protonix, Risperdal, Synthroid, Xopenex, Zaroxolyn, Zestril, and Zofran p.r.n. OBJECTIVE: INTAKE AND OUTPUT: Intake 950. Output is not charted. VITAL SIGNS: Blood pressure is 94/44. Temperature is 98.2. Respiratory rate is 18. Pulse is 101. HEENT: Normocephalic, atraumatic. Conjunctivae are pale. Sclerae are nonicteric. NECK: Supple. No neck vein distention. CHEST: Diminished breath sounds at the bases, but no rales, no rhonchi, no wheezing. CARDIOVASCULAR: Shows S1, S2 to be normal. No S3, no S4, no rub. MR/TR. ABDOMEN: Soft, nondistended. Bowel sounds normal. No rebound, no guarding, no masses. EXTREMITIES: Show 2-3+ pitting edema with minimal erythema of her lower extremity bilaterally. No c yanosis, no clubbing. LABORATORY DATA AND IMAGING: CBC: White blood cell count 15.3. Hemoglobin is 10.3 with a platelet count of 397,000. Chemistries show normal electrolytes, sodium 132, potassium 4.1, chloride 92 with a CO2 of 36, BUN 19 with a creatinine of 0.5. Glucose is 59. Magnesium is low at 1.3. Mild elevati on of AST at 66, ALT at 71. Albumin level is 2.9. ASSESSMENT: 1. Status post severe dilutional hyponatremia secondary to volume overload and severe cardiomyopathy . The patient has responded to several doses of tolvaptan together with diuretic therapy. Her sodiu m is once again starting to drift down. She remains on IV Lasix and oral Zaroxolyn for her significa nt lower extremity edema. Magnesium level is borderline low. Potassium level is acceptable. We diane l continue magnesium supplements. We will increase magnesium oxide to 3 times a day, and give the pa tient 1 mag rider. 2. Chronic obstructive lung disease. Continue inhalation therapy. 3. Severe cardiomyopathy with valvular heart disease. The patient is being followed by cardiology, and she will continue on Primacor drip. 4. History of deep venous thrombosis and pulmonary embolism. The patient will continue on Eliquis. 5. History of non-insulin dependent diabetes mellitus. The patient continues on sliding scale insul in, long-acting insulin, and oral agents. 6. History of schizophrenia, stable on medical therapy. 7. History of anemia. Hemoglobin is stable in the 10-11 range. PLAN: 1. Discussed with the staff on telemetry - need to start monitoring accurate intake and out. 2. Continue IV Lasix and oral Zaroxolyn as prescribed. 3. Continue to monitor daily weights. 4. Increase oral magnesium supplements. The patient is having no diarrhea, and I will give the ervin ent 1 mag rider today. 5. Complete a course of antibiotic therapy for a questionable right lower lobe infiltrate/pneumonia. 6. Continue to monitor the patient on telemetry. Ej Aguirre MD cc: [id number] TT: 09/04/2016 10:25:51 Confirmation # [id number] Dictation # [id number]
[2016-09-04 11:27] LABS: FT3 3.34 pg/mL (2.77-5.27)
[2016-09-04] MEDS: metOLazone 5 MG TAB PO SCH (11:43)
[2016-09-04] MEDS: Promethazine/Cod 6.25mg-10mg/5ml Syr UD PO SCH ×4 (11:49→21:48)
[2016-09-04] MEDS: Magnesium Oxide 400 mg Tab UD PO SCH ×3 (11:52→18:41)
--- NOTE | 2016-09-04 12:26 | PN ---
DATE: 09/04/2016 REASON FOR CONSULTATION AND FOLLOWUP: Cardiac evaluation, shortness of breath, increased swelling of the leg, bilateral pleural effusion, decompensated congestive heart failure, acute on chronic systol ic dysfunction, hyponatremia improving. BRIEF CLINICAL HISTORY: This is a 51-year-old female with past medical history significant for diabe demarcus, hypertension, hyperlipidemia, congestive heart failure, bipolar disorder, hypothyroidism, mitral regurgitation and tricuspid regurgitation, chemotherapy for lymphoma, is status post removal of Port -A-Cath, DVT of right upper extremity, admitted with leg swelling and shortness of breath. Complaine d of breast swelling, going for mammogram today. The patient was treated with IV Primacor, tolvaptan, Lasix, and Zaroxolyn. Having good diuresis, and the leg swelling is improving. PHYSICAL EXAMINATION: VITAL SIGNS: Temperature afebrile, heart rate 101, blood pressure 94/44. HEENT: PERRLA. Extraocular muscles intact. NECK: Supple. No carotid bruits. No thyromegaly. CHEST: Clear to auscultation. HEART: S1, S2 regular. ABDOMEN: Soft. EXTREMITIES: Clubbing and cyanosis negative. LABORATORY DATA: Blood workup as follows: WBC 15, hemoglobin and hematocrit 10.0 and 31.4, platelet count 394. Chemistry shows sodium 130, potassium 4.0, chloride 92, carbon dioxide 36, anion gap of 8. BUN 19, creatinine ____.9. IMPRESSION: Decompensated congestive heart failure, acute on chronic secondary to systolic dysfuncti on, admitting BNP 4490, mitral regurgitation and tricuspid regurgitation, lymphoma status post chemot herapy, cardiomyopathy secondary to chemo. Complaining of tenderness in the breast, going for mammog yamil, leg swelling, hyponatremia improved. RECOMMENDATION: Continue Lasix, continue Zaroxolyn, continue Primacor. Monitor I's and O's. We diane l follow with you. Monitor electrolytes closely. Thank you, Dr. Roman, for providing the opportunity in taking care of the patient. The patient's magnesium is 1.____. We will supplement magnesium. Repeat mag level and potassium in the morning. Mau Orozco MD cc: [id number] TT: 09/04/2016 12:25:26 Confirmation # [id number] Dictation # [id number] jn
--- NOTE | 2016-09-04 13:56 | CP.PCM.PN ---
<FrankHermannkailee - Last Filed: 09/04/16 13:53> Subjective - Date & Time of Evaluation Date of Evaluation: 09/04/16 Time of Evaluation: 13:53 - Subjective Subjective: GI for Dr. Quigley Pt s&e w attending. TY. Denies F/C/N/V/D/CP/SOB. Tolerating PO . Objective - Vital Signs/Intake and Output Vital Signs (last 24 hours): Temp Pulse Resp BP Pulse Ox 97.9 F 103 H 20 112/58 L 95 09/04/16 12:00 09/04/16 12:00 09/04/16 12:00 09/04/16 12:00 09/04/16 06:00 Intake and Output: 09/04/16 09/04/16 06:59 18:59 Intake Total 100 120 Balance 100 120 - Medications Medications: Current Medications Acetylcysteine (Acetylcysteine 20%) 3 ml IH BIDRESP [facility] Last Admin: 09/04/16 08:28 Dose: Not Given Apixaban (Eliquis) 5 mg PO BID IZABELA PRN Reason: Protocol Last Admin: 09/04/16 11:42 Dose: 5 mg Benzocaine/Menthol (Cepacol Sore Throat) 1 mirna MT Q2H PRN PRN Reason: Sore Throat Last Admin: 09/03/16 11:57 Dose: 1 mirna Digoxin (Lanoxin) 0.25 mg PO 1400 [facility] Last Admin: 09/03/16 14:34 Dose: 0.25 mg Doxycycline Hyclate (Doryx) 100 mg PO Q12 IZABELA PRN Reason: Protocol Last Admin: 09/04/16 11:42 Dose: 100 mg Fluconazole (Diflucan) 200 mg PO DAILY IZABELA PRN Reason: Protocol Last Admin: 09/04/16 11:42 Dose: 200 mg Furosemide (Lasix) 80 mg IVP BID [facility] Last Admin: 09/04/16 11:45 Dose: 80 mg Glimepiride (Amaryl) 1 mg PO DAILY [facility] Last Admin: 09/04/16 11:43 Dose: 1 mg Milrinone Lactate/Dextrose (Primacor 20mg/100ml D5w) 100 mls @ 4.409 mls/hr IV .[id number] PRN; Protocol; 0.2 MCG/KG/MIN PRN Reason: TITRATE PER MD ORDER Last Admin: 09/04/16 00:59 Dose: 0.2 mcg/kg/min, 4.409 mls/hr Insulin Detemir (Levemir) 10 unit SC HS [facility] Last Admin: 09/03/16 22:49 Dose: 10 unit Insulin Human Regular (Humulin R Low) 0 units SC ACHS [facility] PRN Reason: Protocol Last Admin: 09/04/16 12:07 Dose: 2 units Levalbuterol HCl (Xopenex) 0.63 mg IH TIDRESP [facility] Last Admin: 09/04/16 12:59 Dose: Not Given Levothyroxine Sodium (Synthroid) 125 mcg PO ACB [facility] Last Admin: 09/04/16 08:43 Dose: 125 mcg Lisinopril (Zestril) 2.5 mg PO DAILY [facility] Last Admin: 09/04/16 11:42 Dose: 2.5 mg Lorazepam (Ativan) 0.5 mg PO [facility] Last Admin: 09/03/16 22:50 Dose: 0.5 mg Magnesium Oxide (Mag-Ox) 400 mg PO TID [facility] Last Admin: 09/04/16 11:52 Dose: 400 mg Metformin HCl (Glucophage) 1,000 mg PO BID [facility] Last Admin: 09/04/16 11:43 Dose: 1,000 mg Metolazone (Zaroxolyn) 5 mg PO DAILY [facility] Last Admin: 09/04/16 11:43 Dose: 5 mg Multi-Ingredient Cream (Hydrocerin Cream) 0 ea TOP QID PRN PRN Reason: skin breakdown Last Admin: 09/02/16 10:24 Dose: 1 applic Nystatin (Nystop Topical Powder) 0 gm TOP DAILY PRN PRN Reason: Rash Ondansetron HCl (Zofran Inj) 4 mg IVP Q4 PRN PRN Reason: Nausea/Vomiting Pantoprazole Sodium (Protonix Ec Tab) 20 mg PO ACB [facility] Last Admin: 09/04/16 08:43 Dose: 20 mg Potassium Chloride (K-Dur 20 Meq Er Tab) 20 meq PO BRK [facility] Last Admin: 09/04/16 08:43 Dose: 20 meq Prednisone (Prednisone Tab) 20 mg PO DAILY [facility] Last Admin: 09/04/16 11:42 Dose: 20 mg Promethazine HCl/Codeine (Phenergan/Codeine Oral Syrup) 5 ml PO QID [facility] Last Admin: 09/04/16 11:49 Dose: 5 ml Propranolol HCl (Inderal) 10 mg PO TID [facility] Last Admin: 09/04/16 11:43 Dose: 10 mg Risperidone (Risperdal Tab) 0.5 mg PO 1000,1600 [facility] Last Admin: 09/04/16 11:43 Dose: 0.5 mg Risperidone (Risperdal Tab) 1 mg PO HS [facility] Last Admin: 09/03/16 22:50 Dose: 1 mg Simethicone (Mylicon Chew Tab) 80 mg PO QID PRN PRN Reason: Flatulence Ziprasidone (Geodon Inj) 10 mg IM Q4H PRN PRN Reason: Agitation - Labs Labs: 09/04/16 06:00 09/04/16 06:00 PT 13.6 Seconds (9.9-11.8) H 08/29/16 17:40 INR 1.26 (0.93-1.08) H 08/29/16 17:40 APTT 26.8 Seconds (23.7-30.8) 08/29/16 17:40 - Constitutional Appears: No Acute Distress - Head Exam Head Exam: ATRAUMATIC, NORMAL INSPECTION, NORMOCEPHALIC - Eye Exam Eye Exam: EOMI, Normal appearance, PERRL Pupil Exam: NORMAL ACCOMODATION, PERRL - Neck Exam Neck Exam: Full ROM, Normal Inspection. absent: Lymphadenopathy - Respiratory Exam Respiratory Exam: Clear to Ausculation Bilateral, NORMAL BREATHING PATTERN - Cardiovascular Exam Cardiovascular Exam: REGULAR RHYTHM, +S1, +S2. absent: Murmur - GI/Abdominal Exam GI & Abdominal Exam: Soft, Normal Bowel Sounds. absent: Distended, Tenderness - Extremities Exam Extremities Exam: Full ROM, Pedal Edema - Back Exam Back Exam: NORMAL INSPECTION - Neurological Exam Neurological Exam: Alert, Awake, CN II-XII Intact, Normal Gait, Oriented x3 - Psychiatric Exam Psychiatric exam: Normal Affect, Normal Mood - Skin Skin Exam: Dry, Intact, Normal Color, Warm Assessment and Plan - Assessment and Plan (Free Text) Assessment: Elevated LFT. LFT trending down. likely 2/2 hepatic congestion. Leukocytosis 15k today -Monitor labs -Medical management DW Dr. Quigley <Renuka Quigley V - Last Filed: 09/18/16 23:19> Objective - Vital Signs/Intake and Output Vital Signs (last 24 hours): Temp Pulse Resp BP Pulse Ox 97.8 F 111 H 20 116/69 96 09/15/16 12:00 09/15/16 12:00 09/15/16 12:00 09/15/16 12:00 09/15/16 06:00 - Labs Labs: 09/15/16 07:25 09/15/16 07:25 PT 13.6 Seconds (9.9-11.8) H 08/29/16 17:40 INR 1.26 (0.93-1.08) H 08/29/16 17:40 APTT 26.8 Seconds (23.7-30.8) 08/29/16 17:40 Attending/Attestation - Attestation Notes (Text): patient denied any abdomial pain. Physical examination Bilateral pedal edema decreasing. LFT continues to have downward trend overall.ccontinue to follow up lft
[2016-09-04] MEDS: Digoxin 250 mcg (0.25 mg) Tab PO SCH (14:43)
--- NOTE | 2016-09-04 17:08 | PN ---
DATE: 09/04/2016 REFERRING PHYSICIAN: Dr. Roman. SUBJECTIVE: She is lying in the bed, sleepy, arousable. Night was unremarkable. No headache, no rh initis. Cough is better. No nausea, vomiting or diarrhea. Decreased leg swelling. OBJECTIVE: GENERAL: In no acute distress. VITAL SIGNS: Temperature is 98, heart rate is 103, respiratory rate is 20, blood pressure 112/58, pu lse ox 95% on room air. HEENT: Moist mucous membranes. Crowded airway. Mallampati score is 4. NECK: Supple. No JVD. LUNGS: Has decreased breath sounds at the bases. HEART: S1, S2. ABDOMEN: Soft, nontender, no organomegaly. Has some ascites. EXTREMITIES: Decreased edema. NEUROLOGIC: Awake, alert, follows simple commands. MEDICATIONS: She is on Mucomyst 20% inhaled twice a day, Amaryl 1 mg daily, Ativan 0.5 mg at bedtime , Cepacol lozenges q.2 hours p.r.n., Diflucan 200 mg daily, doxycycline 100 mg twice a day, Eliquis 5 mg twice a day, Geodon 10 mg q.4 hours p.r.n., metformin 1000 mg twice a day, insulin coverage, Inde ral 10 mg 3 times a day, potassium 20 mEq daily, digoxin 0.25 mg daily, Lasix 80 mg twice a day, Leve gildardo 10 units subQ at bedtime, mag oxide 400 mg 3 times a day, Phenergan with codeine 5 mL q.i.d. p.r. n., prednisone 20 mg daily, Primacor IV, Protonix 20 mg daily, Risperdal 0.5 mg twice a day, also Ris perdal 1 mg at bedtime; Synthroid 125 mcg daily, Xopenex 0.63 mg 3 times a day, Zaroxolyn 5 mg daily, Zestril 2.5 mg daily, Zofran p.r.n. basis. LABORATORY DATA: Shows hemoglobin 10.3, hematocrit 31.4, WBC 15.3, platelet is 397. Sodium 132, pot assium 4.1, chloride 92, bicarbonate 36, BUN 19, creatinine 0.5, glucose is 59, calcium is 9.6, phosp horus 3.0, magnesium 1.3, AST 66, ALT 71, alkaline phosphatase is 198, albumin is 2.9. Microbiology: Urine has yeast. IMPRESSION AND PLAN: Cardiomyopathy. Also has sleep apnea syndrome, pleural effusion, schizophrenia , history of lymphoma, chronic obstructive lung disease, noncompliant with. Will continue p.o. and i nhaled bronchodilator. Decrease prednisone to 10 mg daily. 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 Repla ce potassium and magnesium. Follow up electrolytes. Thank you and will follow with you. Mau More MD cc: [phone] TT: 09/04/2016 17:08:26 Confirmation # [id number] Dictation # [id number]
[2016-09-04] MEDS: Benzocaine/Menthol (Cepacol) Lozenge MT PRN ×2 (18:40→21:49)
[2016-09-04] MEDS: Insulin Detemir 100 units/ml Vial (Levemir) SC SCH (21:48)
[2016-09-05] MEDS: Milrinone 20mg/100ml D5W 100 ML IV PRN (02:32)
[2016-09-05 07:25] LABS: ALKALINE PHOSPHATASE 182 U/L (38-133); ALT/SGPT 70 U/L (7-56); AST/SGOT 30 U/L (15-39); BILIRUBIN,TOTAL 0.5 mg/dL (0.2-1.3); BLOOD UREA NITROGEN 19 mg/dL (7-21); CALCIUM 9.2 mg/dL (8.4-10.5); CARBON DIOXIDE 35 mmol/L (21-33); CHLORIDE 90 mmol/L (98-107); GFR AFRICAN-AMERICAN > 60; GLUCOSE,RANDOM 115 mg/dL (70-110); MAGNESIUM 1.5 mg/dL (1.7-2.2); PHOSPHOROUS 4.6 mg/dL (2.5-4.5); POTASSIUM 4.4 mmol/L (3.6-5.0); SODIUM 130 mmol/L (132-148); TOTAL PROTEIN 5.7 g/dL (5.8-8.3)
--- NOTE | 2016-09-05 07:28 | CP.PCM.PN ---
Subjective - Date & Time of Evaluation Date of Evaluation: 09/05/16 Time of Evaluation: 07:24 - Subjective Subjective: Surgery for Dr. Rendon Pt s&eDelfina CRAWFORD. tolerating diet. Amb+. Denies breast pain, F/C/N/V/D/CP/SOB. Objective - Vital Signs/Intake and Output Vital Signs (last 24 hours): Temp Pulse Resp BP Pulse Ox 97.9 F 95 H 20 90/47 L 95 09/05/16 06:00 09/05/16 06:00 09/05/16 06:00 09/05/16 06:00 09/05/16 06:00 Intake and Output: 09/05/16 09/05/16 06:59 18:59 Intake Total 1072 Output Total 1200 Balance -128 - Medications Medications: Current Medications Acetylcysteine (Acetylcysteine 20%) 3 ml IH BIDRESP [facility] Last Admin: 09/04/16 21:15 Dose: Not Given Apixaban (Eliquis) 5 mg PO BID IZABELA PRN Reason: Protocol Last Admin: 09/04/16 18:40 Dose: 5 mg Benzocaine/Menthol (Cepacol Sore Throat) 1 mirna MT Q2H PRN PRN Reason: Sore Throat Last Admin: 09/04/16 21:49 Dose: 1 mirna Digoxin (Lanoxin) 0.25 mg PO 1400 [facility] Last Admin: 09/04/16 14:43 Dose: 0.25 mg Doxycycline Hyclate (Doryx) 100 mg PO Q12 IZABELA PRN Reason: Protocol Last Admin: 09/04/16 21:47 Dose: 100 mg Fluconazole (Diflucan) 200 mg PO DAILY IZABELA PRN Reason: Protocol Last Admin: 09/04/16 11:42 Dose: 200 mg Furosemide (Lasix) 80 mg IVP BID [facility] Last Admin: 09/04/16 18:37 Dose: Not Given Milrinone Lactate/Dextrose (Primacor 20mg/100ml D5w) 100 mls @ 4.409 mls/hr IV .[id number] PRN; Protocol; 0.2 MCG/KG/MIN PRN Reason: TITRATE PER MD ORDER Last Admin: 09/05/16 02:32 Dose: 0.2 mcg/kg/min, 4.409 mls/hr Insulin Detemir (Levemir) 10 unit SC HS [facility] Last Admin: 09/04/16 21:48 Dose: 10 unit Insulin Human Regular (Humulin R Low) 0 units SC [facility] PRN Reason: Protocol Last Admin: 09/04/16 21:49 Dose: 2 units Levalbuterol HCl (Xopenex) 0.63 mg IH TIDRESP [facility] Last Admin: 09/04/16 21:15 Dose: 0.63 mg Levothyroxine Sodium (Synthroid) 125 mcg PO ACB [facility] Last Admin: 09/04/16 08:43 Dose: 125 mcg Lisinopril (Zestril) 2.5 mg PO DAILY [facility] Last Admin: 09/04/16 11:42 Dose: 2.5 mg Lorazepam (Ativan) 0.5 mg PO [facility] Last Admin: 09/04/16 21:48 Dose: 0.5 mg Magnesium Oxide (Mag-Ox) 400 mg PO TID [facility] Last Admin: 09/04/16 18:41 Dose: 400 mg Metformin HCl (Glucophage) 1,000 mg PO BID [facility] Last Admin: 09/04/16 18:37 Dose: Not Given Metolazone (Zaroxolyn) 5 mg PO DAILY [facility] Last Admin: 09/04/16 11:43 Dose: 5 mg Multi-Ingredient Cream (Hydrocerin Cream) 0 ea TOP QID PRN PRN Reason: skin breakdown Last Admin: 09/02/16 10:24 Dose: 1 applic Nystatin (Nystop Topical Powder) 0 gm TOP DAILY PRN PRN Reason: Rash Ondansetron HCl (Zofran Inj) 4 mg IVP Q4 PRN PRN Reason: Nausea/Vomiting Pantoprazole Sodium (Protonix Ec Tab) 20 mg PO ACB [facility] Last Admin: 09/04/16 08:43 Dose: 20 mg Potassium Chloride (K-Dur 20 Meq Er Tab) 20 meq PO BRK [facility] Last Admin: 09/04/16 08:43 Dose: 20 meq Prednisone (Prednisone Tab) 10 mg PO DAILY [facility] Promethazine HCl/Codeine (Phenergan/Codeine Oral Syrup) 5 ml PO QID [facility] Last Admin: 09/04/16 21:48 Dose: 5 ml Propranolol HCl (Inderal) 10 mg PO TID [facility] Last Admin: 09/04/16 18:37 Dose: Not Given Risperidone (Risperdal Tab) 0.5 mg PO 1000,1600 [facility] Last Admin: 09/04/16 18:41 Dose: 0.5 mg Risperidone (Risperdal Tab) 1 mg PO HS [facility] Last Admin: 09/04/16 21:48 Dose: 1 mg Simethicone (Mylicon Chew Tab) 80 mg PO QID PRN PRN Reason: Flatulence Ziprasidone (Geodon Inj) 10 mg IM Q4H PRN PRN Reason: Agitation - Labs Labs: 09/04/16 06:00 09/04/16 06:00 PT 13.6 Seconds (9.9-11.8) H 08/29/16 17:40 INR 1.26 (0.93-1.08) H 08/29/16 17:40 APTT 26.8 Seconds (23.7-30.8) 08/29/16 17:40 - Constitutional Appears: No Acute Distress - Head Exam Head Exam: ATRAUMATIC, NORMAL INSPECTION, NORMOCEPHALIC - Eye Exam Eye Exam: EOMI, Normal appearance, PERRL Pupil Exam: NORMAL ACCOMODATION, PERRL - ENT Exam ENT Exam: Mucous Membranes Moist, Normal Exam - Neck Exam Neck Exam: Full ROM, Normal Inspection. absent: Lymphadenopathy - Respiratory Exam Respiratory Exam: Clear to Ausculation Bilateral, NORMAL BREATHING PATTERN - Cardiovascular Exam Cardiovascular Exam: REGULAR RHYTHM, +S1, +S2. absent: Murmur - GI/Abdominal Exam GI & Abdominal Exam: Soft, Normal Bowel Sounds. absent: Distended, Firm, Tenderness - Exam Exam: NORMAL INSPECTION - Extremities Exam Extremities Exam: Full ROM, Normal Capillary Refill, Normal Inspection. absent : Joint Swelling, Pedal Edema - Back Exam Back Exam: NORMAL INSPECTION - Neurological Exam Neurological Exam: Alert, Awake, CN II-XII Intact, Normal Gait, Oriented x3 - Psychiatric Exam Psychiatric exam: Normal Affect, Normal Mood - Skin Skin Exam: Dry, Erythema, Intact, Warm - Additional Findings Additional findings: R breast is enlarged. Well healed scar from port site. R inferior breast fold is indurated. Erythema. Assessment and Plan - Assessment and Plan (Free Text) Assessment: 51F with R breast enlargement r/o malignancy subclavian vein US: neg for thrombosis; pt had a chemoport on the R sided for years Plan: - f/u mammogram/US - no further surgical intervention planned at this time - Will d/w Dr. Rendon
[2016-09-05] MEDS: Potassium Chloride 20 mEq ER Tab PO SCH (08:12)
[2016-09-05] MEDS: Insulin Reg-LOW-Coverage SC SCH ×4 (08:12→22:01)
[2016-09-05] MEDS: Levothyroxine 125 MCG TAB PO SCH (08:12)
[2016-09-05] MEDS: Pantoprazole 20 mg EC Tab PO SCH (08:12)
[2016-09-05] MEDS: Levalbuterol 0.63 MG/3 ML Inhal Soln UD IH SCH ×3 (08:58→20:36)
[2016-09-05] MEDS: Acetylcysteine 20% Inhal Soln (4ml) IH SCH ×2 (08:59→20:36)
[2016-09-05] MEDS: Magnesium Oxide 400 mg Tab UD PO SCH ×3 (09:35→18:02)
[2016-09-05] MEDS: Promethazine/Cod 6.25mg-10mg/5ml Syr UD PO SCH ×4 (09:48→22:17)
[2016-09-05] MEDS: metOLazone 5 MG TAB PO SCH (09:48)
[2016-09-05] MEDS: Benzocaine/Menthol (Cepacol) Lozenge MT PRN (09:49)
[2016-09-05] MEDS ORDERED: Magnesium Sulfate 2 GM in Sodium Chloride 0.9% 100 ML IV ONE (11:29)
--- NOTE | 2016-09-05 12:56 | PN ---
DATE: 09/05/2016 SUBJECTIVE: The patient is currently seen sitting in a chair. She states that she has been urinatin g adequately with the use of diuretic therapy and inotropic support. She states that she can now see the contour of her knee and her mid-calf. She thinks that her edema is decreasing. Her weight is d own to 146 pounds from 151 yesterday. MEDICATIONS: List reviewed. The patient is currently on acetylcysteine, Ativan, Cepacol, Diflucan, Doryx, Eliquis, Geodon, Glucophage, insulin, Hydrocerin cream, Inderal, K tabs, Lanoxin, IV Lasix 80 q. 12, Levemir, mag oxide, simethicone p.r.n., nystatin p.r.n., Phenergan with codeine, prednisone, P rimacor drip, Protonix, Risperdal, Synthroid, Xopenex, Zaroxolyn 5 mg daily, lisinopril 2.5 mg a day, and Zofran p.r.n. OBJECTIVE: INTAKE AND OUTPUT: Intake 2091, output 1899. VITAL SIGNS: Blood pressure 100/60, temperature 97.9, respiratory rate 20 with a pulse of 95. HEENT: Normocephalic, atraumatic. Conjunctivae are pale. Sclerae are nonicteric. NECK: Supple, no neck vein distention. CHEST: Diminished breath sounds at the bases, but no rales, no rhonchi, no wheezing. CARDIOVASCULAR: Shows S1, S2 to be normal. No S3, no S4, no rub. MR/TR. ABDOMEN: Soft. Nondistended. Bowel sounds normal. No rebound, no guarding, no masses. EXTREMITIES: Show 2+ pitting edema from the mid-calf on down. Minimal erythema of her lower extremi ty bilaterally. No cyanosis or clubbing. Diminished lower extremity pulses secondary to edema. LABORATORY DATA AND IMAGING: CBC from yesterday: White blood cell count 15.3, hemoglobin 10.3 with a platelet count of 397,000. Chemistries today: Sodium is down to 130. Potassium is stable at 4.4, chloride 90, CO2 35, stable, BUN 19 with a creatinine of 0.5, glucose 115. Calcium 9.2, phosphorus slightly higher at 4.6, magnesium is improved at 1.5. Mild elevation of her ALT at 70. Alkaline leslie sphatase 182. Albumin 2.9. ASSESSMENT: 1. History of dilutional hyponatremia, secondary to volume overload and severe cardiomyopathy. Sodi um once again is drifting down as patient remains on diuretic therapy with Lasix and Zaroxolyn. Prev iously, she had received several doses of tolvaptan with excellent diuresis and an improvement in her sodium level. Should her sodium level continue to fall lower, we could always challenge her with fu rther tolvaptan therapy. In the interim, she will continue on inotropic supplements. 2. Borderline mild hypomagnesemia. The patient will continue oral magnesium supplements. No diarrh ea. I will give her another mag rider today. 3. Chronic obstructive pulmonary disease. Continue inhalation therapy. 4. Severe cardiomyopathy with valvular heart disease. The patient is being followed by cardiology. She will continue on Primacor. 5. History of deep venous thrombosis and pulmonary embolism. The patient will continue chronic anti coagulation with Eliquis. 6. History of non-insulin dependent diabetes mellitus. The patient continues on sliding scale insul in, long acting insulin and oral agents. Sugar control is acceptable. 7. History of schizophrenia, stable on medical therapy. 8. History of anemia, stable. Hemoglobin is in the 10-11 range. PLAN: 1. Continue to monitor accurate I's and O's and daily weights. I am encouraged by an approximate 2 liter diuresis and a 5 pound loss in weight if indeed her weights are being taken correctly. 2. Continue IV Lasix and Zaroxolyn therapy. 3. P.r.n., I will restart tolvaptan if her sodium level continues to drop low. She has responded ni naomi to 2 doses of tolvaptan earlier during her hospitalization. 4. Continue both oral and IV magnesium supplements. 5. Complete a course of antibiotic therapy for a questionable right lower lobe infiltrate/pneumonia. 6. Continue to monitor patient on telemetry. Ej Aguirre MD cc: [id number] TT: 09/05/2016 12:55:56 Confirmation # [id number] Dictation # [id number]
--- NOTE | 2016-09-05 14:17 | PN ---
DATE: 09/05/2016 REASON FOR CONSULTATION AND FOLLOWUP: Cardiac evaluation, shortness of breath, increased swelling of the legs, bilateral pleural effusion, decompensated congestive heart failure, acute on chronic, syst olic dysfunction, hyponatremia, improving. BRIEF CLINICAL HISTORY: This is a 51-year-old female with a past medical history significant for easton betes, hypertension, hyperlipidemia, congestive heart failure, bipolar disorder, hypothyroidism, mitr al regurgitation, tricuspid regurgitation, on chemotherapy for lymphoma, tricuspid regurgitation, car diomyopathy, nonischemic, secondary to chemotherapy for lipoma, status post removal of the [place] h, history of deep venous thrombosis of right upper extremity. Admitted with swelling of the leg, co mplained of breast swelling. Yesterday, went for a mammogram. Feels better. Leg swelling started d ecreasing. PHYSICAL EXAMINATION: VITAL SIGNS: Temperature afebrile, heart rate 95, blood pressure 100/60. HEENT: PERRLA. Extraocular muscles intact. NECK: Supple. No carotid bruits. No thyromegaly. CHEST: Clear to auscultation. HEART: S1, S2 regular. ABDOMEN: Soft. EXTREMITIES: Clubbing, cyanosis negative. BLOOD WORKUP: WBC 15. , hemoglobin 10. , hematocrit 31.4, platelet count 397. Chemistry jeronimo ws sodium 130, potassium 4. , chloride 90, carbon dioxide 35, anion gap of 9, BUN 19, creatinine 0.9. IMPRESSION: Acute decompensated congestive heart failure, acute on chronic systolic dysfunction, jodi ral regurgitation, tricuspid regurgitation, nonischemic cardiomyopathy secondary to chemotherapy for lymphoma, history of coronary artery disease, nonobstructive, status post cardiac catheterization, el evated BNP on admission 4490, increased leg swelling, hyponatremia, improved with tolvaptan and diure tics. RECOMMENDATION: Continue Zaroxolyn. Monitor I's and O's, monitor electrolytes. Continue Lasix. We will follow with you. Thank you, Dr. Roman, for providing us the opportunity in taking care of the patient. The patient, 10 mg propranolol tried, 10 mg p.o. 3 times a day because sinus tachycardia, on Eliquis for deep veno us thrombosis of upper extremity. We will follow with you. Mau Orozco MD cc: [id number] TT: 09/05/2016 14:16:50 Confirmation # [id number] Dictation # [id number]
[2016-09-05] MEDS: Digoxin 250 mcg (0.25 mg) Tab PO SCH (14:33)
--- NOTE | 2016-09-05 14:49 | US ---
PROCEDURE: Right upper extremity venous US CLINICAL HISTORY: Arm pain and swelling Evaluate for deep venous thrombosis. PHYSICIAN(S): Kal Peña M.D FINDINGS: The visualized rightinternal jugular vein is sonographically normal and compressible. No evidence of obstruction or thrombus is seen. The visualized segments of the right subclavian vein are patent with normal waveforms. No sonographic evidence of obstruction or thrombosis is seen. The visualized deep venous system of the proximal right upper extremity is sonographically normal and compressible. IMPRESSION: 1. No sonographic evidence for deep venous thrombosis in the visualized segments of the right upper extremity.
--- NOTE | 2016-09-05 20:43 | PN ---
DATE: 09/05/2016 PULMONARY PROGRESS NOTE REFERRING PHYSICIAN: Dr. Roman. SUBJECTIVE: She is sitting in bed. Night was unremarkable, feels better, decreased shortness of giovanny ath. No chest pain, no nausea, no vomiting, no diarrhea. Decreased leg swelling. OBJECTIVE: GENERAL: No acute distress. VITAL SIGNS: Temperature is 98, heart rate is 101, respiratory rate is 20, blood pressure 101/55, pu lse ox 95% on room air. HEENT: Moist mucous membranes. Crowded airway. Mallampati score is 4. NECK: Supple. No JVD. LUNGS: Have decreased breath sounds at bases. HEART: S1, S2. ABDOMEN: Soft, nontender. No organomegaly. EXTREMITIES: Does have edema, but decreased. NEUROLOGIC: Awake, alert, follows simple command. MEDICATIONS: She is on Ativan 0.5 mg at bedtime, Cepacol lozenges q. 2 hours p.r.n., Diflucan 200 mg daily, doxycycline 100 mg twice a day, Eliquis 5 mg twice a day, Geodon 10 mg q. 4 hours p.r.n., met formin 1000 mg twice a day, insulin coverage, affected area q.i.d., Inderal 10 mg 3 times a day , potassium 20 mEq daily, digoxin 0.25 mg daily, Lasix 80 mg IV twice a day, Levemir 10 units subQ at bedtime, mag oxide 400 mg 3 times a day, simethicone 80 mg q.i.d. p.r.n., Phenergan with codeine 5 m L q.i.d., prednisone 10 mg daily, Primacor IV drip, Protonix 20 mg daily, Risperdal is 0.5 mg twice a day and also Risperdal 1 mg at bedtime, Xopenex inhaler 3 times a day, Zaroxolyn 5 mg daily, Zofran on a p.r.n. basis, Zestril 2.5 mg daily. LABORATORY DATA: Reviewed and shows sodium 130, potassium 4.4, chloride 90, bicarbonate 35, BUN is 1 9, creatinine 0.5, glucose is 115, calcium is 9.2, phosphorus 4.6, magnesium 1.5. AST 30, ALT 70, al kaline phosphatase is 182, albumin is 2.9. IMPRESSION AND PLAN: Cardiomyopathy, may have sleep apnea syndrome, pleural effusion, schizophrenia, lymphoma, chronic obstructive lung disease, noncompliant with the p.o. fluid intake. Pulmonary poin t of view, doing better. We will discontinue prednisone. Continue bronchodilator. Keep head elevat ed at 45 degrees. Diuretics. Continue Primacor. Follow up electrolytes. Thank you and will follow with you. Mau More MD cc: [id number] TT: 09/05/2016 20:42:52 Confirmation # [id number] Dictation # [id number] mn
[2016-09-05] MEDS: Insulin Detemir 100 units/ml Vial (Levemir) SC SCH (22:17)
[2016-09-06] MEDS: Milrinone 20mg/100ml D5W 100 ML IV PRN (02:57)
[2016-09-06 07:16] LABS: ALKALINE PHOSPHATASE 175 U/L (38-133); ALT/SGPT 67 U/L (7-56); AST/SGOT 32 U/L (15-39); BILIRUBIN,TOTAL 0.5 mg/dL (0.2-1.3); BLOOD UREA NITROGEN 21 mg/dL (7-21); CALCIUM 9.4 mg/dL (8.4-10.5); CARBON DIOXIDE 32 mmol/L (21-33); CHLORIDE 91 mmol/L (98-107); GFR AFRICAN-AMERICAN > 60; GLUCOSE,RANDOM 84 mg/dL (70-110); MAGNESIUM 1.5 mg/dL (1.7-2.2); PHOSPHOROUS 4.7 mg/dL (2.5-4.5); POTASSIUM 4.1 mmol/L (3.6-5.0); SODIUM 130 mmol/L (132-148)
[2016-09-06] MEDS: Levalbuterol 0.63 MG/3 ML Inhal Soln UD IH SCH ×3 (08:22→20:27)
[2016-09-06] MEDS: Pantoprazole 20 mg EC Tab PO SCH (08:23)
[2016-09-06] MEDS: Levothyroxine 125 MCG TAB PO SCH (08:23)
[2016-09-06] MEDS: Acetylcysteine 20% Inhal Soln (4ml) IH SCH ×2 (08:23→20:27)
[2016-09-06] MEDS: Potassium Chloride 20 mEq ER Tab PO SCH (08:23)
--- NOTE | 2016-09-06 08:24 | PN ---
DATE: 09/05/2016 She complained of leg swelling and redness, left more than right. The patient currently on intraveno us milrinone for her nonischemic cardiomyopathy. She denied any fever, any chills. PHYSICAL EXAMINATION: VITAL SIGNS: Temperature is 97.5, heart rate 101, blood pressure 101/55, respiration 19. HEAD AND NECK: Normal. No JVD, no thyromegaly. CHEST: Diminished breath sounds, right more than left and there are a few crepitations. CARDIAC: First sound, second sound normal. ABDOMEN: Soft, obese, nontender. EXTREMITIES: Bilateral leg edema. Left leg is with skin ulcerations on the mid shaft of leg and red ness both, left more than right, and diffuse redness and tenderness. NEUROLOGIC: Normal. LABORATORY DATA: Venous Doppler of both lower extremities was negative. Last sodium was 130, potass ium 4.4, chloride 90, bicarb 35, BUN 19, creatinine 0.5, blood sugar 115. Magnesium still low, but i s higher at 1.5. AST and ALT still elevated, but improving. IMPRESSION AND PLAN: 1. Acute systolic heart failure on top of chronic systolic heart failure. Continue IV Lasix. The p atient's Lasix increased to 80 mg IV b.i.d. in addition to IV milrinone, seems improving with the jamison er function due to hepatic congestion, seems better; however, still has leg swelling and still needs IV medications. 2. Cellulitis, both lower extremity. We will give Zyvox and continue with the infectious disease co nsultation. 3. Abnormal liver functions due to congestion and right-sided heart failure. Continue diuretics. 4. Hypothyroidism; diabetes, insulin-dependent. The patient noncompliant with diet. She is eating food from the family member. We continue insulin as it is and we will follow up clinically. 5. Right breast discomfort, possible mass. We will get ultrasound of the breast. We will evaluate further. Richardson Roman MD cc: [phone] TT: 09/06/2016 08:23:50 Confirmation # [id number] Dictation # [id number] tn
--- NOTE | 2016-09-06 08:29 | PN ---
DATE: 09/02/2016 The patient feels better. Less short of breath. Currently on IV milrinone. She complained of thick mucus, she cannot get it out. Otherwise, she is feeling less short of breath, less leg edema. PHYSICAL EXAMINATION: VITAL SIGNS: Temperature 97, heart rate 100, blood pressure 129/77, respirations 19, saturating 93% on room air. HEAD AND NECK: Normal. No JVD, no thyromegaly. CHEST: Clear, diminished breath sounds on the right more than the left and there are some rales in t he bases. CARDIAC: First sound, second sound normal. ABDOMEN: Soft, obese, nontender. EXTREMITIES: Edema bilateral. NEUROLOGIC: Normal. LABORATORY DATA: Was ordered for tomorrow, but her chemistry shows sodium went up to 133 and potassi um 4.5, chloride 90, bicarb 36, her BUN 20, creatinine 0.5, blood sugar is 190. Her phosphorus is 2. 6, her calcium 9.7. Her liver enzymes seem normalized. AST is 34 and ALT and radha phos slightly mark vated 94 and 267. Her total protein 5.5, albumin 2.8. Her TSH is 7.25. IMPRESSION AND PLAN: 1. Acute systolic heart failure on top of chronic. Continue IV milrinone. Continue IV Lasix, digox in, ARETHA inhibitors. The patient may need automatic implantable cardioverter-defibrillator. 2. History of deep venous thrombosis and pulmonary embolism. Continue Eliquis. 3. Hypothyroidism. We will increase her Synthroid to 125 mcg per day. 4. Chronic bilateral pleural effusion, history of pneumonia in the past, thick phlegm. Continue inh aled bronchodilators, Mucomyst and chest physiotherapy. 5. Diabetes, stable. Continue Glucophage. We will increase her insulin. We will continue to monit or her blood sugar. The patient clinically stable and improving. Question for this patient to be pl acement or a penitentiary because she keeps coming to the hospital frequently and was given us hard t john for placement. We will get a child welfare social worker involved and we will continue current treatment. CURRENT MEDICATIONS: Right now, we will put her on Mucomyst, Ativan, Cepacol, Diflucan, doxycycline , Eliquis, Geodon injections 10 mg q. 4 hours p.r.n., metformin 1000 b.i.d., insulin coverage plus In deral 10 mg 3 times a day, Lanoxin 0.25 mg once a day, Lasix 40 mg IV b.i.d., mag oxide 400 b.i.d., M ylicon, cough medicine, promethazine with codeine, prednisone 20 p.o. daily, Primacor continuous infu sun, Protonix 20 mg a.c. breakfast, Risperdal 0.5 mg twice a day and 1 mg at night. The patient als o Levothroid or Synthroid 125 mcg per day, Xopenex, Zaroxolyn 2.5 mg p.o. daily, Zestril 2.5 mg p.o. daily, and Zofran p.r.n. IV 4 mg q. 4 hours. Continue current management. Richardson Roman MD cc: [phone] TT: 09/03/2016 09:45:58 Confirmation # [id number] Dictation # [id number] tn 09/03/2016 10:10:24
[2016-09-06] MEDS: Insulin Reg-LOW-Coverage SC SCH ×4 (08:34→22:13)
--- NOTE | 2016-09-06 08:39 | PN ---
DATE: 09/05/2016 ADDENDUM The patient was seen and evaluated earlier. The patient is comfortable. She is happy that her leg swelling are also going down. PHYSICAL EXAMINATION: VITAL SIGNS: Afebrile, blood pressure 100/60, respirations 16. HEENT: Atraumatic, anicteric. NECK: Supple. HEART: S1, S2 heard. LUNGS: Bilateral air entry present, diffuse scattered . ABDOMEN: Soft. There is no tenderness. EXTREMITIES: Edema . LABORATORY DATA: Hemoglobin is 10, hematocrit 31.4, WBC , platelets 15. I reviewed the labs which showed hemoglobin 10.3, hematocrit 31.4, WBC is 15.3. LFTs show downward trend. AST is 70, ALT RECOMMENDATIONS: Followup of the hemoglobin, hematocrit. Continue the present management. Thank you very much for allowing me to participate in the care of the patient. Renuka Quigley MD cc: [id number] TT: 09/06/2016 04:45:09 Confirmation # [id number] Dictation # [id number] chuckie FUENTES
--- NOTE | 2016-09-06 10:12 | PN ---
DATE: 09/06/2016 The patient is seen on the floor. The breast is stable, although it is bigger than on the left side. The vein on the side where the port was does not show stenosis on the ultrasound, and it is patent. Ultrasound of the breast is pending, as is the mammogram. PHYSICAL EXAMINATION: I cannot feel anything except a little bit of swelling, and the axilla is norm al. I believe this is related to her general cardiac condition. Tomas Rendon MD cc: [id number] TT: 09/06/2016 10:11:30 Confirmation # [id number] Dictation # [id number] jn
[2016-09-06] MEDS: Magnesium Oxide 400 mg Tab UD PO SCH ×3 (10:30→18:03)
[2016-09-06] MEDS: metOLazone 5 MG TAB PO SCH (10:30)
[2016-09-06] MEDS: Promethazine/Cod 6.25mg-10mg/5ml Syr UD PO SCH ×4 (10:32→22:19)
--- NOTE | 2016-09-06 11:12 | PN ---
DATE: 09/06/2016 SUBJECTIVE: The patient is once again seen in a chair. She still continues to have lower extremity edema. She has mild erythema of her lower extremity. Her white blood cell count is higher and she i s currently being treated for a possible mild early cellulitis of her lower extremity. The patient r emains on inotropic therapy and diuretic therapy. Her sodium has been holding at 130. MEDICATIONS: Medication list reviewed. The patient is currently on acetylcysteine, Ativan, Cepacol, Diflucan, Eliquis, Geodon, Glucophage, insulin, Hydrocerin, Inderal, potassium tablets, Lanoxin, IV Lasix, p.o. Zaroxolyn, magnesium oxide, simethicone, nystatin, Phenergan with codeine, Primacor drip, Protonix, Risperdal, Synthroid, Xopenex, lisinopril, Zofran p.r.n. and Zyvox. OBJECTIVE: INTAKE AND OUTPUT: Intake 853, output 800. VITAL SIGNS: Today's weight was 136 pounds 10 ounces, but yesterday's weight was 146 pounds. Weight s are being repeated. VITAL SIGNS: Blood pressure 107/62, heart rate 120. Respiratory rate 19 with a temperature of 97.9. HEENT: Normocephalic, atraumatic. Conjunctivae remain pale. Sclerae are nonicteric. NECK: Supple, no neck vein distention. CHEST: Clear to auscultation and percussion with decreased breath sounds at the bases. No rales, no rhonchi, no wheezing. CARDIOVASCULAR: S1, S2 normal. No S3, no S4, no rub. MR/TR. ABDOMEN: Soft. Nondistended. Bowel sounds normal. No rebound, no guarding, no masses. EXTREMITIES: Show 2+ pitting edema from the midcalf on down to the ankle. Minimal erythema of her l ower extremity bilaterally. No cyanosis, no clubbing. Diminished lower extremity pulses bilaterally . LABORATORY DATA AND IMAGING: White blood cell count today up to 15.3, hemoglobin is 10.3 with a plat elet count of 397,000. Chemistries today: Sodium 130, potassium 4.1, chloride 91, CO2 32, BUN 21 wi th a creatinine of 0.5. Glucose is 84, calcium 9.4, phosphorus 4.7, magnesium stable at 1.5. Albumi n is 3.0. ASSESSMENT: 1. Dilutional hyponatremia secondary to volume overload secondary to cardiomyopathy. Sodium has rocco pped, but is stable at the 130 range. The patient remains on double diuretic therapy. There is a po ssibility of reintroducing tolvaptan, which helped earlier during her hospitalization to normalize he r sodium and to promote an aggressive diuresis. The patient in the interim will continue on inotropi c therapy. 2. Possible mild lower extremity cellulitis. The patient is on intravenous antibiotic as per Dr. Sa yap. 3. History of borderline to mild hypomagnesemia. The patient continues on mag supplements. She has received mag riders over the last 2 days. 4. Chronic obstructive pulmonary disease, stable. 5. Severe cardiomyopathy with valvular heart disease, mitral regurgitation/tricuspid regurgitation. The patient is being followed by cardiology and she remains on inotropic therapy. 6. History of deep venous thrombosis and pulmonary embolism. The patient will continue chronic anti coagulation with Eliquis. 7. History of [id number] diabetes mellitus. The patient continues both long-acting and s liding scale insulin. Sugar control appears acceptable. 8. History of schizophrenia, stable on medical therapy. 9. History of anemia, stable. Hemoglobin is in the 10 range. We will repeat a CBC with her next se t of labs. PLAN: 1. Need to try and obtain accurate I's and O's and daily weights. I am certain that the 10 pound we ight dropped from yesterday to today is an error. 2. Continue IV Lasix and Zaroxolyn therapy. 3. Continue negative fluid balance. 4. PRN restart tolvaptan if sodium level drops significantly below 130. 5. Continue oral magnesium supplements. 6. Antibiotic therapy as per Dr. Roman. The patient was treated initially for questionable right l ower lobe infiltrate/pneumonia. Now she is being treated for cellulitis of her lower extremity. 7. Continue to monitor patient on telemetry. Ej Aguirre MD cc: [id number] TT: 09/06/2016 11:12:00 Confirmation # [id number] Dictation # [id number] mn
--- NOTE | 2016-09-06 11:50 | PN ---
DATE: 09/06/2016 Seen and examined at the bedside earlier today. Denies any nausea, vomiting, or abdominal pain, is h aving formed stools. No reports of bleeding. States she is feeling better. VITAL SIGNS: Temperature 97.9, blood pressure is 103/64, pulse 78, respirations 19, and 100 on room air. LABORATORY DATA: Sodium 130, K 4.1, BUN 21, creatinine 0.5, total bilirubin 0.5, AST 32, ALT 67, alk lorenzo phosphatase is 175. PHYSICAL EXAMINATION: HEENT: Sclerae are anicteric. NECK: Supple. CARDIAC: S1, S2. LUNGS: With decreased breath sounds, but good air entry. Positive rales, no wheezing. ABDOMEN: With bowel sounds, soft, nondistended, nontender on palpation. EXTREMITIES: Positive bilateral edema. NEUROLOGIC: Awake, alert, and oriented. ASSESSMENT: The patient with abnormal liver enzymes likely due to congestion and right-sided heart f ailure. There is showing a downward trend. She also has decompensated congestive heart failure, non ischemic cardiomyopathy, history of lymphoma. The patient with bilateral lower extremity edema, hypo natremia. PLAN: The patient's liver enzymes are continuing a downward trend. It is improving, likely related to hepatic congestion. The patient has a history of DVT and PE. She is also on Eliquis, is on Prima cor drip. Continue GI prophylaxis. The patient with lower extremity edema, likely cellulitis. She is on IV antibiotics as per ID. The patient was seen and case discussed with Dr. Quigley. Faye Pricees HAWK cc: [id number] TT: 09/06/2016 11:49:36 Confirmation # [id number] Dictation # [id number] tn
--- NOTE | 2016-09-06 12:07 | CP.PCM.CON ---
History of Present Illness - History of Present Illness History of Present Illness: 51 year old female with PMH of HTN, hypothyroidism, DM, chronic CHF, history of migraines, bipolar disorder, history of acute cholecystitis S/P laparoscopic cholecystectomy in Apr 2016 was brought in to [facility] because of bilateral lower extremity swelling and some shortness of breath. She was apparently at [facility] prior to admission here but signed out AMA. Currently the patient is being treated for CHF exacerbation but despite the treatment, her legs, particularly the left is still swollen. The patient denies fever or chills, no nausea or vomiting, no chest pain, currently no SOB, no headache or dizziness, no blurring of vision, no cough or colds, no abdominal pain, no diarrhea or dysuria. The left leg is not particularly painful and she does not recall animal contacts or insect bites. Infectious diseases consult is requested to further evaluate and manage. Review of Systems - Review of Systems All systems: reviewed and no additional remarkable complaints except (as per HPI ) Past Patient History - Infectious Disease Hx of Infectious Diseases: None - Tetanus Immunizations Tetanus Immunization: Unknown - Past Medical History & Family History Past Medical History?: Yes - Past Social History Smoking Status: Former Smoker - CARDIAC Hx Cardiac Disorders: Yes Hx Congestive Heart Failure: Yes Hx Hypercholesterolemia: Yes Hx Hypertension: Yes Hx Pacemaker: No Hx Peripheral Edema: Yes Hx Peripheral Vascular Disease: (DVT TO LEFT ARM) - PULMONARY Hx Respiratory Disorders: Yes Hx Chronic Obstructive Pulmonary Disease (COPD): Yes Hx Emphysema: Yes Hx Pneumonia: Yes - NEUROLOGICAL Hx Neurological Disorder: No Hx Seizures: No - HEENT Hx HEENT Problems: No - RENAL Hx Chronic Kidney Disease: No - ENDOCRINE/METABOLIC Hx Endocrine Disorders: Yes Hx Diabetes Mellitus Type 2: Yes Hx Hypothyroidism: Yes - HEMATOLOGICAL/ONCOLOGICAL Hx Blood Disorders: No - INTEGUMENTARY Hx Dermatological Problems: No Hx Basil Cell: No Hx Eczema: No Hx Melanoma: No Hx Psoriasis: No Hx Squamous Cell: No - MUSCULOSKELETAL/RHEUMATOLOGICAL Hx Falls: No - GASTROINTESTINAL Hx Gastrointestinal Disorders: Yes Hx Crohn's Disease: No Hx Diverticulitis: Yes Hx Gastroesophageal Reflux: Yes - GENITOURINARY/GYNECOLOGICAL Hx Genitourinary Disorders: No Hx Sexually Transmitted Disorders: No - PSYCHIATRIC Hx Substance Use: No - SURGICAL HISTORY Hx Surgeries: Yes Hx Appendectomy: No Hx Cholecystectomy: Yes Hx Coronary Stent: No Other/Comment: neck mass excision - ANESTHESIA Hx Anesthesia: Yes Hx Anesthesia Reactions: No Hx Malignant Hyperthermia: No Meds Allergies/Adverse Reactions: Allergies Allergy/AdvReac Type Severity Reaction Status Date / Time No Known Allergies Allergy Verified 08/29/16 15:17 - Medications Medications: Current Medications Acetylcysteine (Acetylcysteine 20%) 3 ml IH BIDRESP [facility] Last Admin: 09/05/16 20:36 Dose: Not Given Apixaban (Eliquis) 5 mg PO BID [facility] PRN Reason: Protocol Last Admin: 09/05/16 18:02 Dose: 5 mg Benzocaine/Menthol (Cepacol Sore Throat) 1 mirna MT Q2H PRN PRN Reason: Sore Throat Last Admin: 09/05/16 09:49 Dose: 1 mirna Digoxin (Lanoxin) 0.25 mg PO 1400 [facility] Last Admin: 09/05/16 14:33 Dose: 0.25 mg Fluconazole (Diflucan) 200 mg PO DAILY [facility] PRN Reason: Protocol Last Admin: 09/05/16 09:34 Dose: 200 mg Furosemide (Lasix) 80 mg IVP BID [facility] Last Admin: 09/05/16 18:03 Dose: Not Given Milrinone Lactate/Dextrose (Primacor 20mg/100ml D5w) 100 mls @ 4.409 mls/hr IV .[id number] PRN; Protocol; 0.2 MCG/KG/MIN PRN Reason: TITRATE PER MD ORDER Last Admin: 09/06/16 02:57 Dose: 0.2 mcg/kg/min, 4.409 mls/hr Linezolid (Zyvox 600mg/300ml D5w) 600 mg in 300 mls @ 200 mls/hr IVPB Q12 [facility] PRN Reason: Protocol Stop: 09/13/16 10:01 Insulin Detemir (Levemir) 10 unit SC HS [facility] Last Admin: 09/05/16 22:17 Dose: 10 unit Insulin Human Regular (Humulin R Low) 0 units SC ACHS [facility] PRN Reason: Protocol Last Admin: 09/05/16 22:01 Dose: Not Given Levalbuterol HCl (Xopenex) 0.63 mg IH TIDRESP [facility] Last Admin: 09/05/16 20:36 Dose: 0.63 mg Levothyroxine Sodium (Synthroid) 125 mcg PO ACB [facility] Last Admin: 09/05/16 08:12 Dose: 125 mcg Lisinopril (Zestril) 2.5 mg PO DAILY [facility] Last Admin: 09/05/16 09:34 Dose: 2.5 mg Lorazepam (Ativan) 0.5 mg PO HS [facility] Last Admin: 09/05/16 22:16 Dose: 0.5 mg Magnesium Oxide (Mag-Ox) 400 mg PO TID [facility] Last Admin: 09/05/16 18:02 Dose: 400 mg Metformin HCl (Glucophage) 1,000 mg PO BID [facility] Last Admin: 09/05/16 18:02 Dose: 1,000 mg Metolazone (Zaroxolyn) 5 mg PO DAILY [facility] Last Admin: 09/05/16 09:48 Dose: 5 mg Multi-Ingredient Cream (Hydrocerin Cream) 0 ea TOP QID PRN PRN Reason: skin breakdown Last Admin: 09/02/16 10:24 Dose: 1 applic Nystatin (Nystop Topical Powder) 0 gm TOP DAILY PRN PRN Reason: Rash Ondansetron HCl (Zofran Inj) 4 mg IVP Q4 PRN PRN Reason: Nausea/Vomiting Pantoprazole Sodium (Protonix Ec Tab) 20 mg PO ACB [facility] Last Admin: 09/05/16 08:12 Dose: 20 mg Potassium Chloride (K-Dur 20 Meq Er Tab) 20 meq PO BRK [facility] Last Admin: 09/05/16 08:12 Dose: 20 meq Promethazine HCl/Codeine (Phenergan/Codeine Oral Syrup) 5 ml PO QID [facility] Last Admin: 09/05/16 22:17 Dose: 5 ml Propranolol HCl (Inderal) 10 mg PO TID [facility] Last Admin: 09/05/16 18:03 Dose: Not Given Risperidone (Risperdal Tab) 0.5 mg PO 1000,1600 [facility] Last Admin: 09/05/16 18:04 Dose: Not Given Risperidone (Risperdal Tab) 1 mg PO HS [facility] Last Admin: 09/05/16 22:16 Dose: 1 mg Simethicone (Mylicon Chew Tab) 80 mg PO QID PRN PRN Reason: Flatulence Ziprasidone (Geodon Inj) 10 mg IM Q4H PRN PRN Reason: Agitation Physical Exam - Constitutional Appears: Non-toxic, No Acute Distress - Head Exam Head Exam: NORMAL INSPECTION - ENT Exam ENT Exam: Mucous Membranes Moist - Neck Exam Neck exam: Negative for: Lymphadenopathy, Meningismus - Respiratory Exam Respiratory Exam: Decreased Breath Sounds - Cardiovascular Exam Cardiovascular Exam: +S1, +S2 - GI/Abdominal Exam GI & Abdominal Exam: Soft. absent: Tenderness - Extremities Exam Additional comments: both lower extremities with swelling, mild erythema, no tenderness noted, left greater than right Results - Vital Signs Recent Vital Signs: Last Vital Signs Temp 97.9 F 09/06/16 06:00 Pulse 104 H 09/06/16 06:00 Resp 19 09/06/16 06:00 BP 103/64 09/06/16 06:00 Pulse Ox 100 09/06/16 06:00 - Labs Result Diagrams: 09/04/16 06:00 09/06/16 06:40 Assessment & Plan - Assessment and Plan (Free Text) Plan: Assessment Lower extremity swelling, consider secondary to right-sided heart failure from chronic congestive heart failure, R/O cellulitis, R/O DVT right breast swelling, etiology to be determined Healthcare-associated pneumonia, right middle lobe, clinically improved history of bilateral healthcare-associated pneumonia in this patient chronic heart failure S/P acute cholecystitis, S/P laparoscopic cholecystectomy CAD with chronic CHF DM HTN history of migraines bipolar disorder Plan started patient on Zyvox pending blood cx; will order doppler ultrasound of the left lower extemity to rule out DVT Will monitor clinical response Follow up Surgery plans for the right breast
[2016-09-06] MEDS ORDERED: Magnesium Sulfate 2 GM in Sodium Chloride 0.9% 100 ML IVPB ONE (12:38)
--- NOTE | 2016-09-06 13:04 | PN ---
DATE: 09/06/2016 REASON FOR CONSULTATION AND FOLLOWUP: Cardiac evaluation, shortness of breath, increased swelling of the leg, bilateral pleural effusion, decompensated congestive heart failure, acute on chronic systol ic dysfunction, hyponatremia, improving. BRIEF CLINICAL HISTORY: A 51-year-old female with a past medical history significant for diabetes, h ypertension, hyperlipidemia, congestive heart failure, bipolar disorder, hypothyroidism, mitral regur gitation, tricuspid regurgitation, on chemotherapy for lymphoma, nonischemic cardiomyopathy, status p ost cardiac catheterization, nonobstructive coronary artery disease, admitted with leg swelling and d ecompensated congestive heart failure. The patient started on ____ Primacor. Also, patient has hypo natremia, given 3 doses of ____ sodium improved. Denies any chest pain, shortness of breath. Starte d with swelling of the leg, going down. PHYSICAL EXAMINATION: VITAL SIGNS: Temperature afebrile, heart rate 78, blood pressure 103/64. HEENT: PERRLA. Extraocular muscles intact. NECK: Supple. No carotid bruits. No thyromegaly. CHEST: Clear to auscultation. HEART: S1, S2 regular. ABDOMEN: Soft. EXTREMITIES: Clubbing and cyanosis negative. LABORATORY DATA: Blood workup as follows: WBC ____, hemoglobin ____, hematocrit 31.4, platelet coun t 397. Chemistry shows sodium 130, potassium ____, chloride 91, carbon dioxide 32, anion gap of 11, BUN 21, creatinine 0.5. IMPRESSION: Decompensated congestive heart failure, acute on chronic systolic dysfunction, status po st removal of Port-A-Cath, right brachial vein deep venous thrombosis, decompensated congestive heart failure, acute on chronic systolic dysfunction, nonischemic cardiomyopathy secondary to chemotherapy with lymphoma, status post cardiac catheterization, nonobstructive coronary artery disease, mitral r egurgitation, tricuspid regurgitation. RECOMMENDATION: Continue to monitor sodium. Continue diuretics, including Lasix and Zaroxolyn, cont inue Primacor. We will follow with you. Monitor electrolytes. Thank you, Dr. Roman, for providing the opportunity in taking care of the patient. Magnesium is low , will supplement magnesium. We will follow with you. Mau Orozco MD cc: [id number] TT: 09/06/2016 13:03:38 Confirmation # [id number] Dictation # [id number] rn
[2016-09-06] MEDS: Digoxin 250 mcg (0.25 mg) Tab PO SCH (14:24)
--- NOTE | 2016-09-06 14:57 | CP.PCM.PN ---
Subjective - Date & Time of Evaluation Date of Evaluation: 09/06/16 Time of Evaluation: 14:56 - Subjective Subjective: pt needs angiocath insertion. Objective - Vital Signs/Intake and Output Vital Signs (last 24 hours): Temp Pulse Resp BP Pulse Ox 96.9 F L 119 H 70 H 105/70 100 09/06/16 12:00 09/06/16 12:00 09/06/16 12:00 09/06/16 12:00 09/06/16 06:00 Intake and Output: 09/06/16 09/06/16 06:59 18:59 Intake Total 853 Output Total 800 Balance 53 - Medications Medications: Current Medications Acetylcysteine (Acetylcysteine 20%) 3 ml IH BIDRESP [facility] Last Admin: 09/06/16 08:23 Dose: Not Given Apixaban (Eliquis) 5 mg PO BID [facility] PRN Reason: Protocol Last Admin: 09/06/16 10:30 Dose: 5 mg Benzocaine/Menthol (Cepacol Sore Throat) 1 mirna MT Q2H PRN PRN Reason: Sore Throat Last Admin: 09/05/16 09:49 Dose: 1 mirna Digoxin (Lanoxin) 0.25 mg PO 1400 [facility] Last Admin: 09/06/16 14:24 Dose: 0.25 mg Fluconazole (Diflucan) 200 mg PO DAILY [facility] PRN Reason: Protocol Last Admin: 09/06/16 10:30 Dose: 200 mg Furosemide (Lasix) 80 mg IVP BID [facility] Last Admin: 09/06/16 10:32 Dose: 80 mg Milrinone Lactate/Dextrose (Primacor 20mg/100ml D5w) 100 mls @ 4.409 mls/hr IV .[id number] PRN; Protocol; 0.2 MCG/KG/MIN PRN Reason: TITRATE PER MD ORDER Last Admin: 09/06/16 02:57 Dose: 0.2 mcg/kg/min, 4.409 mls/hr Linezolid (Zyvox 600mg/300ml D5w) 600 mg in 300 mls @ 200 mls/hr IVPB Q12 [facility] PRN Reason: Protocol Stop: 09/13/16 10:01 Insulin Detemir (Levemir) 10 unit SC HS [facility] Last Admin: 09/05/16 22:17 Dose: 10 unit Insulin Human Regular (Humulin R Low) 0 units SC ACHS [facility] PRN Reason: Protocol Last Admin: 09/06/16 13:00 Dose: Not Given Levalbuterol HCl (Xopenex) 0.63 mg IH TIDRESP [facility] Last Admin: 09/06/16 13:54 Dose: 0.63 mg Levothyroxine Sodium (Synthroid) 125 mcg PO ACB [facility] Last Admin: 09/06/16 08:23 Dose: 125 mcg Lisinopril (Zestril) 2.5 mg PO DAILY [facility] Last Admin: 09/06/16 10:30 Dose: 2.5 mg Lorazepam (Ativan) 0.5 mg PO HS [facility] Last Admin: 09/05/16 22:16 Dose: 0.5 mg Magnesium Oxide (Mag-Ox) 400 mg PO TID [facility] Last Admin: 09/06/16 14:25 Dose: 400 mg Metformin HCl (Glucophage) 1,000 mg PO BID [facility] Last Admin: 09/06/16 10:32 Dose: Not Given Metolazone (Zaroxolyn) 5 mg PO DAILY [facility] Last Admin: 09/06/16 10:30 Dose: 5 mg Multi-Ingredient Cream (Hydrocerin Cream) 0 ea TOP QID PRN PRN Reason: skin breakdown Last Admin: 09/02/16 10:24 Dose: 1 applic Nystatin (Nystop Topical Powder) 0 gm TOP DAILY PRN PRN Reason: Rash Ondansetron HCl (Zofran Inj) 4 mg IVP Q4 PRN PRN Reason: Nausea/Vomiting Pantoprazole Sodium (Protonix Ec Tab) 20 mg PO ACB [facility] Last Admin: 09/06/16 08:23 Dose: 20 mg Potassium Chloride (K-Dur 20 Meq Er Tab) 20 meq PO BRK [facility] Last Admin: 09/06/16 08:23 Dose: 20 meq Promethazine HCl/Codeine (Phenergan/Codeine Oral Syrup) 5 ml PO QID [facility] Last Admin: 09/06/16 14:25 Dose: 5 ml Propranolol HCl (Inderal) 10 mg PO TID [facility] Last Admin: 09/06/16 14:24 Dose: 10 mg Risperidone (Risperdal Tab) 0.5 mg PO 1000,1600 [facility] Last Admin: 09/06/16 10:30 Dose: 0.5 mg Risperidone (Risperdal Tab) 1 mg PO HS [facility] Last Admin: 09/05/16 22:16 Dose: 1 mg Simethicone (Mylicon Chew Tab) 80 mg PO QID PRN PRN Reason: Flatulence Ziprasidone (Geodon Inj) 10 mg IM Q4H PRN PRN Reason: Agitation - Labs Labs: 09/04/16 06:00 09/06/16 06:40 PT 13.6 Seconds (9.9-11.8) H 08/29/16 17:40 INR 1.26 (0.93-1.08) H 08/29/16 17:40 APTT 26.8 Seconds (23.7-30.8) 08/29/16 17:40 Assessment and Plan - Assessment and Plan (Free Text) Assessment: 24 guage angiocath inserted in rt index finger.
[2016-09-06] MEDS: Linezolid 600 mg in D5W 300 ml 600 MG/300 ML BAG IVPB SCH ×2 (16:56→22:00)
[2016-09-06] MEDS: Benzocaine/Menthol (Cepacol) Lozenge MT PRN (18:11)
--- NOTE | 2016-09-06 20:00 | MAM ---
PROCEDURE: Bilateral diagnostic mammography The most recent clinical breast examination was performed in/on August of 2016. HISTORY: The patient has no significant family history of breast malignancy. The patient has no personal history of breast malignancy. History of benign left breast biopsy in 2010. History of lymphoma treated with radiation therapy. Current complaint of palpable mass in right breast. TECHNIQUE: Views of the right and left breast were obtained in the craniocaudal and mediolateral oblique projections, utilizing full field digital technique, supplemented by CAD. Views were obtained in the craniocaudal and mediolateral oblique projections. Please note at the time of this examination, the patient refused completion of the examination and additional views felt necessary for this examination, including spot compression views of the area of palpable abnormality in the right breast as well as spot compression magnification views of clustered microcalcifications in the left breast, could not be obtained. COMPARISON: Comparison is made to the prior examination dated 09/01/2010 FINDINGS: The fibroglandular breast tissue is heterogeneously dense, limiting the sensitivity of this examination for the detection of malignancy. There are no masses identified. There is a cluster of indeterminate microcalcifications in the upper-outer posterior left breast with possible associated architectural distortion. The should be further evaluated with spot compression magnification imaging in the CC and 90 degree mL projection. No other suspicious clustered microcalcifications are seen elsewhere. There is asymmetric increased density of the right breast as well as diffuse skin thickening of the right breast in a pattern suggestive of prior radiation therapy. The patient has a history of radiation therapy for lymphoma in the neck and the breast may have been included in the radiation port at that time but this is unknown. There is no known history of radiation therapy to the right breast. There is no nipple retraction. IMPRESSION: Incomplete examination. Indeterminate clustered microcalcifications in the upper-outer posterior left breast. Additional diagnostic spot compression magnification views of these left breast calcifications is advised. In addition, the area of palpable abnormality in the right breast should be further evaluated with spot compression imaging as well as targeted ultrasound examination. BIRADS 0 Incomplete - Need additional imaging evaluation and/or prior mammograms for comparison Recommendation: Recall for additional imaging and/or comparison with prior examination, as described above. Patient will be contacted. BALA ARAUZ's mammogram showed that she has dense breasts. The [facility] has passed a law, effective August 08, 2013. Please be advised that we are required by this law to put this notification in all mammography result reports. This [place] Breast Density Law requires all patients and healthcare providers, regardless of breast density, to receive the information typed below: Your mammogram may show dense breast tissue as determined by the Breast Imaging Reporting and Data System established by the [employer]. Dense breast tissue is very common and is not abnormal. However, in some cases, dense breast tissue can make it harder to find cancer on a mammogram and may also be associated with a risk factor for breast cancer. Discuss this and other risks for breast cancer that pertain to your personal medical history. A report of your results was sent to your health care provider. You may also find more information about breast density at the website of the [employer], www.acr.org.
[2016-09-06] MEDS: Insulin Detemir 100 units/ml Vial (Levemir) SC SCH (22:20)
--- NOTE | 2016-09-06 22:45 | PN ---
DATE: 09/06/2016 REFERRING PHYSICIAN: Dr. Roman. SUBJECTIVE: She is out of bed to chair, feels better, mild cough and shortness of breath. No chest pain, no nausea, no vomiting, no diarrhea. Decreased leg swelling. OBJECTIVE: GENERAL: No acute distress. VITAL SIGNS: Temperature is 98, heart rate is 104, respiratory rate is 20, blood pressure 86/61, pul se ox 100% on room air. HEENT: Moist mucous membranes. Crowded airway. Mallampati score is 4. NECK: Supple, no JVD. LUNGS: Decreased breath sounds at bases. HEART: S1, S2. ABDOMEN: Soft, nontender. No organomegaly. EXTREMITIES: Decreased edema. NEUROLOGIC: Awake, alert, follows simple command. MEDICATIONS: Mucomyst 20% inhaled twice a day, Ativan 0.5 mg at bedtime, Cepacol lozenges q. 4 hours p.r.n., Diflucan 200 mg daily, Eliquis 5 mg twice a day, Geodon 10 mg q. 4 hours p.r.n., also Geodon 1000 mg twice a day, insulin coverage, Inderal is at 10 mg 3 times a day, potassium 20 mEq daily, di goxin 0.25 mg daily, Lasix 80 mg twice a day, Levemir 10 units subQ at bedtime, mag oxide 400 mg 3 ti mes a day, with codeine 5 mL four times a day, Primacor IV, Protonix 20 mg daily, Risperdal 0.5 mg twice a day and also Risperdal 1 mg at bedtime, Synthroid 125 mcg daily, Xopenex inhaled 3 times a day, Zaroxolyn 5 mg daily, Zestril 4.5 mg daily, Zofran on a p.r.n. basis, Zyvox 600 mg twice a day . LABORATORY DATA: Shows sodium 130, potassium 4.1, chloride 91, bicarbonate 32, BUN 21, creatinine 0. 5, glucose 258, calcium is 9.4, phosphorus 4.7, magnesium 1.5. AST 32, ALT 67, alkaline phosphatase is 175, albumin is . IMPRESSION AND PLAN: Cardiomyopathy. May have sleep apnea syndrome, pleural effusion, schizophrenia , lymphoma, chronic obstructive lung disease, noncompliant with medication and fluid intake. Pulmona ry point of view, doing okay. Continue diuretics, Primacor, bronchodilator. Sleep apnea precaution. Follow up electrolytes. Fall precautions. Thank you and will follow with you. Mau More MD cc: [phone] TT: 09/06/2016 22:45:09 Confirmation # [id number] Dictation # [id number] mn
--- NOTE | 2016-09-07 03:42 | PN ---
DATE: 09/06/2016 ADDENDUM This is an addendum to the GI progress report dictated by Faye Doherty APN. The patient denies any abdominal pain. PHYSICAL EXAMINATION: ABDOMEN: Soft. There is no tenderness. LABORATORY DATA: LFTs continue to show a downward trend, most likely it is probably related to the h epatic congestion. Recommend to continue to follow up the LFTs. Thank you very much for allowing us to participate in the care of the patient. Renuka Quigley MD cc: [phone] TT: 09/07/2016 03:42:19 Confirmation # [id number] Dictation # [id number] tn
[2016-09-07] MEDS: Linezolid 600 mg in D5W 300 ml 600 MG/300 ML BAG IVPB SCH ×2 (05:04→18:35)
[2016-09-07 06:43] LABS: MEAN CELL VOLUME 74.5 fL (80.0-105.0); MEAN CORPUSCULAR HEMOGLOBIN 24.3 pg (25.0-35.0); MEAN CORPUSCULAR HGB CONC 32.6 g/dl (31.0-37.0); MEAN PLATELET VOLUME 9.4 fl (7.0-11.0); WHITE BLOOD COUNT 10.4 10^3/ul (4.5-11.0)
[2016-09-07 06:58] LABS: ALB/GLOB RATIO 1.1 (1.1-1.8); ALKALINE PHOSPHATASE 159 U/L (38-133); ALT/SGPT 56 U/L (7-56); AST/SGOT 42 U/L (15-39); BILIRUBIN,TOTAL 0.5 mg/dL (0.2-1.3); BLOOD UREA NITROGEN 20 mg/dL (7-21); CALCIUM 9.2 mg/dL (8.4-10.5); CARBON DIOXIDE 34 mmol/L (21-33); CHLORIDE 91 mmol/L (98-107); GFR AFRICAN-AMERICAN > 60; GLUCOSE,RANDOM 107 mg/dL (70-110); MAGNESIUM 1.7 mg/dL (1.7-2.2); PHOSPHOROUS 4.5 mg/dL (2.5-4.5); POTASSIUM 3.9 mmol/L (3.6-5.0); SODIUM 131 mmol/L (132-148); TOTAL PROTEIN 5.7 g/dL (5.8-8.3)
[2016-09-07] MEDS: Acetylcysteine 20% Inhal Soln (4ml) IH SCH ×3 (08:15→20:10)
[2016-09-07] MEDS: Levalbuterol 0.63 MG/3 ML Inhal Soln UD IH SCH ×3 (08:15→20:10)
[2016-09-07] MEDS: Potassium Chloride 20 mEq ER Tab PO SCH (08:27)
[2016-09-07] MEDS: Levothyroxine 125 MCG TAB PO SCH (08:27)
[2016-09-07] MEDS: Pantoprazole 20 mg EC Tab PO SCH (08:27)
[2016-09-07] MEDS: Insulin Reg-LOW-Coverage SC SCH ×4 (09:25→22:23)
[2016-09-07] MEDS: Milrinone 20mg/100ml D5W 100 ML IV PRN (09:34)
[2016-09-07] MEDS: Promethazine/Cod 6.25mg-10mg/5ml Syr UD PO SCH ×4 (10:44→21:45)
[2016-09-07] MEDS: Magnesium Oxide 400 mg Tab UD PO SCH ×3 (10:44→18:01)
--- NOTE | 2016-09-07 11:01 | RAD ---
HISTORY: pleural effusion COMPARISON: Made with prior chest radiograph 08/29/2016. Comparison also made with CTA chest 06/19/2016. TECHNIQUE: Chest PA and lateral FINDINGS: LUNGS: Bilateral lower lobe opacities consistent with some combination of atelectasis/ infiltrate and effusions right larger than left. Small nodular density left upper lobe located between the left anterior 2nd and 3rd ribs, could represent small vessel on end artifact however small granuloma or nodule not excluded. . . PLEURA: No significant pleural effusion identified. No pneumothorax apparent. CARDIOVASCULAR: Heart size appears enlarged despite partial silhouetting both cardiac borders OSSEOUS STRUCTURES: No significant abnormalities. VISUALIZED UPPER ABDOMEN: Normal. OTHER FINDINGS: None. IMPRESSION: Bilateral lower lobe opacities consistent with some combination of atelectasis/ infiltrate and effusions right larger than left. Small nodular density left upper lobe located between the left posterior 5th rib, could represent small vessel on end artifact however small granuloma or nodule not excluded. . Follow-up nonemergent CT scan of the chest could be performed for further evaluation following some clearing of the atelectasis/infiltrates and effusions
--- NOTE | 2016-09-07 13:04 | CP.PCM.PN ---
<FrankDeepak - Last Filed: 09/07/16 13:02> Subjective - Date & Time of Evaluation Date of Evaluation: 09/07/16 Time of Evaluation: 13:02 - Subjective Subjective: GI for Dr. laureano Pt s&eDelfina CRAWFORD. Pt has no complaints. Denies F/C/N/V/D/CP/SOB. Tolerating PO. + BM. + amb. Objective - Vital Signs/Intake and Output Vital Signs (last 24 hours): Temp Pulse Resp BP Pulse Ox 98.4 F 114 H 20 81/44 L 94 L 09/07/16 06:00 09/07/16 10:00 09/07/16 06:00 09/07/16 06:00 09/07/16 06:00 Intake and Output: 09/07/16 09/07/16 06:59 18:59 Intake Total 1173 300 Balance 1173 300 - Medications Medications: Current Medications Acetylcysteine (Acetylcysteine 20%) 3 ml IH BIDRESP [facility] Last Admin: 09/07/16 08:17 Dose: Not Given Benzocaine/Menthol (Cepacol Sore Throat) 1 mirna MT Q2H PRN PRN Reason: Sore Throat Last Admin: 09/06/16 18:11 Dose: 1 mirna Digoxin (Lanoxin) 0.25 mg PO 1400 [facility] Last Admin: 09/06/16 14:24 Dose: 0.25 mg Fluconazole (Diflucan) 200 mg PO DAILY [facility] PRN Reason: Protocol Last Admin: 09/07/16 10:48 Dose: 200 mg Furosemide (Lasix) 80 mg IVP BID [facility] Last Admin: 09/07/16 10:33 Dose: Not Given Milrinone Lactate/Dextrose (Primacor 20mg/100ml D5w) 100 mls @ 4.409 mls/hr IV .[id number] PRN; Protocol; 0.2 MCG/KG/MIN PRN Reason: TITRATE PER MD ORDER Last Admin: 09/07/16 09:34 Dose: 0.2 mcg/kg/min, 4.409 mls/hr Linezolid (Zyvox 600mg/300ml D5w) 600 mg in 300 mls @ 200 mls/hr IVPB 0600, 1800 [facility] PRN Reason: Protocol Stop: 09/13/16 10:01 Last Admin: 09/07/16 05:04 Dose: 200 mls/hr Insulin Detemir (Levemir) 10 unit SC HS [facility] Last Admin: 09/06/16 22:20 Dose: 10 unit Insulin Human Regular (Humulin R Low) 0 units SC [facility] PRN Reason: Protocol Last Admin: 09/07/16 12:32 Dose: 2 units Levalbuterol HCl (Xopenex) 0.63 mg IH TIDRESP [facility] Last Admin: 09/07/16 08:15 Dose: 0.63 mg Levothyroxine Sodium (Synthroid) 125 mcg PO ACB [facility] Last Admin: 09/07/16 08:27 Dose: 125 mcg Lisinopril (Zestril) 2.5 mg PO DAILY [facility] Last Admin: 09/07/16 10:34 Dose: Not Given Lorazepam (Ativan) 0.5 mg PO [facility] Last Admin: 09/06/16 22:18 Dose: 0.5 mg Magnesium Oxide (Mag-Ox) 400 mg PO TID [facility] Last Admin: 09/07/16 10:44 Dose: 400 mg Metformin HCl (Glucophage) 1,000 mg PO BID [facility] Last Admin: 09/07/16 10:00 Dose: Not Given Metolazone (Zaroxolyn) 5 mg PO DAILY [facility] Last Admin: 09/06/16 10:30 Dose: 5 mg Multi-Ingredient Cream (Hydrocerin Cream) 0 ea TOP QID PRN PRN Reason: skin breakdown Last Admin: 09/02/16 10:24 Dose: 1 applic Nystatin (Nystop Topical Powder) 0 gm TOP DAILY PRN PRN Reason: Rash Ondansetron HCl (Zofran Inj) 4 mg IVP Q4 PRN PRN Reason: Nausea/Vomiting Pantoprazole Sodium (Protonix Ec Tab) 20 mg PO ACB [facility] Last Admin: 09/07/16 08:27 Dose: 20 mg Potassium Chloride (K-Dur 20 Meq Er Tab) 20 meq PO BRK [facility] Last Admin: 09/07/16 08:27 Dose: 20 meq Promethazine HCl/Codeine (Phenergan/Codeine Oral Syrup) 5 ml PO QID [facility] Last Admin: 09/07/16 10:44 Dose: Not Given Propranolol HCl (Inderal) 10 mg PO TID [facility] Last Admin: 09/07/16 10:33 Dose: Not Given Risperidone (Risperdal Tab) 0.5 mg PO 1000,1600 [facility] Last Admin: 09/07/16 10:44 Dose: 0.5 mg Risperidone (Risperdal Tab) 1 mg PO HS [facility] Last Admin: 09/06/16 22:19 Dose: 1 mg Simethicone (Mylicon Chew Tab) 80 mg PO QID PRN PRN Reason: Flatulence Ziprasidone (Geodon Inj) 10 mg IM Q4H PRN PRN Reason: Agitation - Labs Labs: 09/07/16 05:50 09/07/16 05:50 PT 13.6 Seconds (9.9-11.8) H 08/29/16 17:40 INR 1.26 (0.93-1.08) H 08/29/16 17:40 APTT 26.8 Seconds (23.7-30.8) 08/29/16 17:40 - Constitutional Appears: No Acute Distress - Head Exam Head Exam: ATRAUMATIC, NORMAL INSPECTION, NORMOCEPHALIC - Eye Exam Eye Exam: EOMI, Normal appearance, PERRL Pupil Exam: NORMAL ACCOMODATION, PERRL - ENT Exam ENT Exam: Mucous Membranes Moist, Normal Exam - Neck Exam Neck Exam: Full ROM, Normal Inspection. absent: Lymphadenopathy - Respiratory Exam Respiratory Exam: Clear to Ausculation Bilateral, NORMAL BREATHING PATTERN - Cardiovascular Exam Cardiovascular Exam: REGULAR RHYTHM, +S1, +S2. absent: Murmur - GI/Abdominal Exam GI & Abdominal Exam: Soft, Normal Bowel Sounds. absent: Distended, Firm, Guarding, Tenderness - Extremities Exam Extremities Exam: Full ROM, Pedal Edema - Back Exam Back Exam: NORMAL INSPECTION - Neurological Exam Neurological Exam: Alert, Awake, CN II-XII Intact, Normal Gait, Oriented x3 - Psychiatric Exam Psychiatric exam: Normal Affect, Normal Mood - Skin Skin Exam: Dry, Intact, Normal Color, Warm Assessment and Plan - Assessment and Plan (Free Text) Assessment: Elevated LFT. LFT trending down. likely 2/2 hepatic congestion. No Leukocytosis -Monitor labs -Medical management DW Dr. Laureano <Renuka Laureano V - Last Filed: 09/09/16 22:57> Objective - Vital Signs/Intake and Output Vital Signs (last 24 hours): Temp Pulse Resp BP Pulse Ox 98.4 F 106 H 20 107/57 L 94 L 09/09/16 17:56 09/09/16 20:00 09/09/16 17:56 09/09/16 20:00 09/09/16 06:00 Intake and Output: 09/09/16 09/10/16 18:59 06:59 Intake Total 1320 100 Output Total 1000 Balance 320 100 - Medications Medications: Current Medications Acetylcysteine (Acetylcysteine 20%) 3 ml IH BIDRESP [facility] Last Admin: 09/09/16 20:05 Dose: Not Given Apixaban (Eliquis) 5 mg PO BID [facility] PRN Reason: Protocol Last Admin: 09/09/16 17:37 Dose: 5 mg Benzocaine/Menthol (Cepacol Sore Throat) 1 mirna MT Q2H PRN PRN Reason: Sore Throat Last Admin: 09/06/16 18:11 Dose: 1 mirna Digoxin (Lanoxin) 0.25 mg PO 1400 [facility] Last Admin: 09/09/16 14:11 Dose: 0.25 mg Furosemide (Lasix) 40 mg IV 0800,1400 [facility] Last Admin: 09/09/16 14:11 Dose: 40 mg Linezolid (Zyvox 600mg/300ml D5w) 600 mg in 300 mls @ 200 mls/hr IVPB 0600, 1800 [facility] PRN Reason: Protocol Stop: 09/13/16 10:01 Last Admin: 09/09/16 17:38 Dose: 200 mls/hr Milrinone Lactate/Dextrose (Primacor 20mg/100ml D5w) 100 mls @ 3.73 mls/hr IV .Q24H [facility]; 0.2 MCG/KG/MIN PRN Reason: Protocol Last Admin: 09/09/16 20:00 Dose: 0.2 mcg/kg/min, 3.73 mls/hr Insulin Detemir (Levemir) 10 unit SC HS [facility] Last Admin: 09/09/16 22:17 Dose: Not Given Insulin Human Regular (Humulin R Low) 0 units SC ACHS [facility] PRN Reason: Protocol Last Admin: 09/09/16 22:16 Dose: Not Given Levalbuterol HCl (Xopenex) 0.63 mg IH TIDRESP [facility] Last Admin: 09/09/16 20:06 Dose: 0.63 mg Levothyroxine Sodium (Synthroid) 125 mcg PO ACB [facility] Last Admin: 09/09/16 07:48 Dose: 125 mcg Lisinopril (Zestril) 2.5 mg PO DAILY [facility] Last Admin: 09/09/16 09:46 Dose: Not Given Lorazepam (Ativan) 0.5 mg PO [facility] Last Admin: 09/09/16 22:13 Dose: 0.5 mg Magnesium Oxide (Mag-Ox) 400 mg PO TID [facility] Last Admin: 09/09/16 17:37 Dose: 400 mg Metformin HCl (Glucophage) 1,000 mg PO BID [facility] Last Admin: 09/09/16 17:37 Dose: 1,000 mg Metolazone (Zaroxolyn) 5 mg PO DAILY [facility] Last Admin: 09/09/16 09:45 Dose: 5 mg Multi-Ingredient Cream (Hydrocerin Cream) 0 ea TOP QID PRN PRN Reason: skin breakdown Last Admin: 09/02/16 10:24 Dose: 1 applic Mupirocin (Bactroban Ointment) 0 gm TOP BID [facility] Last Admin: 09/09/16 17:38 Dose: 1 applic Nystatin (Nystop Topical Powder) 0 gm TOP DAILY PRN PRN Reason: Rash Ondansetron HCl (Zofran Inj) 4 mg IVP Q4 PRN PRN Reason: Nausea/Vomiting Last Admin: 09/09/16 11:14 Dose: 4 mg Pantoprazole Sodium (Protonix Ec Tab) 20 mg PO B [facility] Last Admin: 09/09/16 07:48 Dose: 20 mg Potassium Chloride (K-Dur 20 Meq Er Tab) 20 meq PO BID [facility] Last Admin: 09/09/16 17:43 Dose: 20 meq Promethazine HCl/Codeine (Phenergan/Codeine Oral Syrup) 5 ml PO QID [facility] Last Admin: 09/09/16 22:12 Dose: 5 ml Propranolol HCl (Inderal) 10 mg PO TID [facility] Last Admin: 09/09/16 17:43 Dose: Not Given Risperidone (Risperdal Tab) 0.5 mg PO 1000,1600 [facility] Last Admin: 09/09/16 17:37 Dose: 0.5 mg Risperidone (Risperdal Tab) 1 mg PO [facility] Last Admin: 06/02/17 22:13 Dose: 1 mg Simethicone (Mylicon Chew Tab) 80 mg PO QID PRN PRN Reason: Flatulence Ziprasidone (Geodon Inj) 10 mg IM Q4H PRN PRN Reason: Agitation - Labs Labs: 09/09/16 06:30 09/09/16 06:30 PT 13.6 Seconds (9.9-11.8) H 08/29/16 17:40 INR 1.26 (0.93-1.08) H 08/29/16 17:40 APTT 26.8 Seconds (23.7-30.8) 08/29/16 17:40 Attending/Attestation - Attestation I have fully participated in the care of the patient.: Yes I have reviewed all pertinent clinical information, including history, physical exam and plan: Yes Notes (Text): Abdomen no tenderness LFT improving
--- NOTE | 2016-09-07 13:45 | PN ---
DATE: 09/07/2016 The patient is being followed for her psychiatric problems. She has multiple medical problems. Her mental status today reveals that she is awake, alert, coherent, lucid, oriented to all spheres, somew hat cognizant of her medical problems. She speaks appropriately at this time. No hallucinations, pa ranoia, suicidal ideation, or depression. Tolerating multiple psychotropic medications without ill e ffects. MEDICATIONS: Include Ativan 0.5 mg at bedtime. Also receiving Risperdal 0.5 mg b.i.d. and 1 mg at b edtime. Other meds include Synthroid, Protonix, nystatin, mag ox, insulin, digoxin, K-Dur, Inderal, Glucophage, insulin, Diflucan. VITAL SIGNS: Blood pressure most recently was somewhat low, at 6:00 a.m. this morning of /44. IMPRESSION: History of schizoaffective disorder, history of elevated liver function secondary to hep atic congestion. The patient has a history of cardiomyopathy, pleural effusion, history of lymphoma, chronic obstructive pulmonary disease. The patient has swelling of her legs. She has a history of congestive heart failure, chronic systolic dysfunction, right brachial deep vein thrombosis. The pat ient has coronary artery disease and valvular heart disease. PLAN: Continue above psychotropic medicine. Continue monitoring mental status. Louie Roach MD cc: [phone] TT: 09/07/2016 13:44:44 Confirmation # [id number] Dictation # [id number] jose
[2016-09-07] MEDS ORDERED: Meropenem 1g/NS 100mL IVPB 1 GM/100 ML PIGGYBACK IVPB SCH (14:00)
[2016-09-07] MEDS: Digoxin 250 mcg (0.25 mg) Tab PO SCH (14:33)
--- NOTE | 2016-09-07 15:13 | PN ---
DATE: 09/06/2016 The patient is still complaining of shortness of breath, but it is better than before. She still als o complains of leg swelling. The patient currently is on Eliquis and she has redness of both lower e xtremities, which she is started on antibiotic and a consultation by ID will see her, Dr. Valentino. PHYSICAL EXAMINATION: VITAL SIGNS: Temperature 96.9, heart rate 104, blood pressure 105/70, respirations 18, saturating 10 0% on room air. HEAD AND NECK: Normal. No JVD. No thyromegaly. CHEST: Clear, good air entry. CARDIAC: First and second sounds are normal. Systolic murmur. ABDOMEN: Soft, obese, nontender. EXTREMITIES: Edema bilateral and redness of both lower extremities, left more than right. IMPRESSION AND PLAN: 1. Acute systolic heart failure on top of chronic. Continue diuretics. The patient is getting Lasi x 80 IV b.i.d. plus milrinone IV. The patient also getting ARETHA inhibitor, digoxin and oxygen. Bree nue current treatment. 2. Bilateral leg cellulitis, left more than right. Venous Doppler initial report was negative. We will continue local antibiotic cream in addition until patient will be seen by ID consult. She was mei Soriano initially, to be followed by Dr. Valentino. 3. Diabetes, insulin-dependent. Continue insulin coverage, hypothyroidism, chronic bilateral pleura l effusion, right more than left atelectasis. At this time, will continue current treatment. 4. Hyponatremia seems to be doing better with the current treatment. Will follow up clinically. Th e patient also has some schizophrenia, seems to be doing okay with the current psych medication, Risp erdal and Ativan. Continue current treatment. Follow up clinically. Right now is getting Risperdal 0.5 mg twice a day and 1 mg at night and also she is getting Ativan 0. 5 mg at bedtime. The patient is also getting Geodon 10 mg IM q. 4 hours p.r.n. Continue current franchesca tment. We ordered a mammogram because of right breast lesions. Dr. Rendon, surgical consult, was i nformed. Continue current management. Richardson Roman MD cc: [phone] TT: 09/07/2016 15:13:09 Confirmation # [id number] Dictation # [id number]
--- NOTE | 2016-09-07 15:31 | PN ---
DATE: 09/07/2016 REFERRING PHYSICIAN: Dr. Roman. SUBJECTIVE: She is out of bed to chair. Night was unremarkable. Mild cough, gets short of breath w ith exertion. No nausea, no vomiting, no diarrhea. Decreased leg swelling. OBJECTIVE: GENERAL: No acute distress. VITAL SIGNS: Temp is 98, heart rate is 104, respiratory rate is 20, blood pressure 90/62, pulse of 9 4% on room air. HEENT: Moist mucous membrane. Crowded airway. NECK: Supple, no JVD. LUNGS: Decreased breath sounds at the bases. HEART: S1 and S2. ABDOMEN: Soft, nontender. No organomegaly. EXTREMITIES: Decreased edema. NEUROLOGIC: Awake, alert, follows simple command. MEDICATIONS: She is on Ativan 0.5 mg at bedtime, Cepacol lozenges q. 24 hours p.r.n., Diflucan 200 m g daily, Geodon 10 mg q. 4 hours p.r.n., metformin 1000 mg twice a day, insulin coverage, Inderal 10 mg 3 times a day, potassium 20 mEq daily, digoxin 0.25 mg daily, Lasix 80 mg twice a day, Levemir 10 units subQ at bedtime, mag oxide 400 mg 3 times a day, meropenem 1 g IV q. 12 hours, Phenergan with c odeine q.i.d. p.r.n., on milrinone IV drip, Protonix 40 mg daily, Risperdal 0.5 mg twice a day, Rispe rdal 1 mg at bedtime, Synthroid 125 mcg ACB, Xopenex inhaled 3 times a day, Zaroxolyn 5 mg daily, Zes tril 2.5 mg daily, Zofran on a p.r.n. basis, Zyvox 600 mg twice a day. LABORATORY DATA: Shows hemoglobin 10.1, hematocrit is 31.0, WBC 10.4, platelet is 447. Sodium 131, potassium 2.9, chloride 91, bicarbonate 34, BUN 20, creatinine 0.5, calcium is 9.2, phosphorus is 4.5 , magnesium 1.7. Total bili 0.5, AST 42, ALT 56, alk phos is 159, albumin is 3.0. Urine has some ye ast in microbiology. Chest x-ray done this morning shows bilateral lower lobe opacity consistent wit h some combination of atelectasis, infiltrate, effusion, right greater than the left; small nodular d ensity, left upper lobe, located between the left posterior fifth rib; could represent small vessel a nd/or artifact. IMPRESSION AND PLAN: Cardiomyopathy, may have sleep apnea syndrome, pleural effusion, schizophrenia, lymphoma, chronic obstructive lung disease, noncompliant with the medication and fluid intake, pleur al effusion, pulmonary infiltrate, small lung nodule? Pulmonary point of view, she is doing well. C ontinue diuretics, Primacor, follow up electrolytes, sleep apnea precautions. She refused to use CPA P and BiPAP. Followup x-ray to ensure the stability of her infiltrate, effusion and nodule. Thank you, and will follow with you. Mau More MD cc: [phone] TT: 09/07/2016 15:30:57 Confirmation # [id number] Dictation # [id number] mn
--- NOTE | 2016-09-07 15:41 | US ---
PROCEDURE: Left lower extremity venous US HISTORY: Leg pain and swelling. Evaluate for DVT. PHYSICIAN(S): Kal Peña MD. TECHNIQUE: Duplex sonography and color-flow Doppler with graded compression were used to evaluate the deep venous system of the left lower extremity. The exam is somewhat limited by edema. FINDINGS: The visualized deep venous system of the left lower extremity is sonographically normal and compressible. Normal wave forms and augmentation are seen. There is no sonographic evidence for deep venous thrombosis in the visualized segments of the left lower extremity. IMPRESSION: 1. No sonographic evidence for deep venous thrombosis in the visualized segments of the left lower extremity.
--- NOTE | 2016-09-07 16:49 | CP.PCM.PN ---
Subjective - Date & Time of Evaluation Date of Evaluation: 09/07/16 Time of Evaluation: 09:45 - Subjective Subjective: Comfortable in bed, not in distress, still with leg swelling but it has decreased. No fevers overnight. Objective - Vital Signs/Intake and Output Vital Signs (last 24 hours): Temp Pulse Resp BP Pulse Ox 98.4 F 110 H 20 110/50 L 94 L 09/07/16 12:00 09/07/16 14:33 09/07/16 12:00 09/07/16 14:33 09/07/16 06:00 Intake and Output: 09/07/16 09/07/16 06:59 18:59 Intake Total 1173 300 Balance 1173 300 - Medications Medications: Current Medications Acetylcysteine (Acetylcysteine 20%) 3 ml IH BIDRESP [facility] BEDS AT [facility] Last Admin: 09/07/16 08:17 Dose: Not Given Benzocaine/Menthol (Cepacol Sore Throat) 1 mirna MT Q2H PRN PRN Reason: Sore Throat Last Admin: 09/06/16 18:11 Dose: 1 mirna Digoxin (Lanoxin) 0.25 mg PO 1400 [facility] 234 BEDS AT [facility] Last Admin: 09/07/16 14:33 Dose: 0.25 mg Fluconazole (Diflucan) 200 mg PO DAILY [facility] 234 BEDS AT [facility] PRN Reason: Protocol Last Admin: 09/07/16 10:48 Dose: 200 mg Furosemide (Lasix) 80 mg IVP BID [facility] 234 B[facility]S AT [facility] Last Admin: 09/07/16 10:33 Dose: Not Given Milrinone Lactate/Dextrose (Primacor 20mg/100ml D5w) 100 mls @ 4.409 mls/hr IV .[id number] PRN; Protocol; 0.2 MCG/KG/MIN PRN Reason: TITRATE PER MD ORDER Last Admin: 09/07/16 09:34 Dose: 0.2 mcg/kg/min, 4.409 mls/hr Linezolid (Zyvox 600mg/300ml D5w) 600 mg in 300 mls @ 200 mls/hr IVPB 0600, 1800 [facility]S [facility]CLUDE 234 BEDS AT [facility] PRN Reason: Protocol Stop: 09/13/16 10:01 Last Admin: 09/07/16 05:04 Dose: 200 mls/hr Insulin Detemir (Levemir) 10 unit SC HS [facility] 234 BEDS AT [facility] Last Admin: 09/06/16 22:20 Dose: 10 unit Insulin Human Regular (Humulin R Low) 0 units SC ACHS [facility]CLUDE 234 BEDS AT [facility] PRN Reason: Protocol Last Admin: 09/07/16 12:32 Dose: 2 units Levalbuterol HCl (Xopenex) 0.63 mg IH TIDRESP [facility]CLUDE 234 BEDS AT [facility] Last Admin: 09/07/16 13:50 Dose: 0.63 mg Levothyroxine Sodium (Synthroid) 125 mcg PO ACB [facility]CLUDE 234 BEDS AT [facility] Last Admin: 09/07/16 08:27 Dose: 125 mcg Lisinopril (Zestril) 2.5 mg PO DAILY [facility] 234 BEDS [facility] Last Admin: 09/07/16 10:34 Dose: Not Given Lorazepam (Ativan) 0.5 mg PO HS [facility] 234 BEDS [facility] Last Admin: 09/06/16 22:18 Dose: 0.5 mg Magnesium Oxide (Mag-Ox) 400 mg PO TID [facility] 234 BEDS AT [facility] Last Admin: 09/07/16 14:33 Dose: 400 mg Metformin HCl (Glucophage) 1,000 mg PO BID [facility] 234 BEDS AT [facility] Last Admin: 09/07/16 10:00 Dose: Not Given Metolazone (Zaroxolyn) 5 mg PO DAILY [facility] 234 BEDS AT [facility] Last Admin: 09/06/16 10:30 Dose: 5 mg Multi-Ingredient Cream (Hydrocerin Cream) 0 ea TOP QID PRN PRN Reason: skin breakdown Last Admin: 09/02/16 10:24 Dose: 1 applic Mupirocin (Bactroban Ointment) 0 gm TOP BID [facility] 234 BEDS AT [facility] Nystatin (Nystop Topical Powder) 0 gm TOP DAILY PRN PRN Reason: Rash Ondansetron HCl (Zofran Inj) 4 mg IVP Q4 PRN PRN Reason: Nausea/Vomiting Pantoprazole Sodium (Protonix Ec Tab) 20 mg PO ACB [facility] 234 BEDS AT [facility] Last Admin: 09/07/16 08:27 Dose: 20 mg Potassium Chloride (K-Dur 20 Meq Er Tab) 20 meq PO BRK [facility] INCLUDE 234 BEDS AT [facility] Last Admin: 09/07/16 08:27 Dose: 20 meq Promethazine HCl/Codeine (Phenergan/Codeine Oral Syrup) 5 ml PO QID [facility] 234 BEDS AT [facility] Last Admin: 09/07/16 14:34 Dose: 5 ml Propranolol HCl (Inderal) 10 mg PO TID [facility]CLUDE 234 BEDS AT [facility] Last Admin: 09/07/16 14:33 Dose: 10 mg Risperidone (Risperdal Tab) 0.5 mg PO 1000,1600 [facility] Last Admin: 09/07/16 10:44 Dose: 0.5 mg Risperidone (Risperdal Tab) 1 mg PO HS [facility] Last Admin: 09/06/16 22:19 Dose: 1 mg Simethicone (Mylicon Chew Tab) 80 mg PO QID PRN PRN Reason: Flatulence Ziprasidone (Geodon Inj) 10 mg IM Q4H PRN PRN Reason: Agitation - Labs Labs: 09/07/16 05:50 09/07/16 05:50 PT 13.6 Seconds (9.9-11.8) H 08/29/16 17:40 INR 1.26 (0.93-1.08) H 08/29/16 17:40 APTT 26.8 Seconds (23.7-30.8) 08/29/16 17:40 - Constitutional Appears: Non-toxic, No Acute Distress - Head Exam Head Exam: NORMAL INSPECTION - ENT Exam ENT Exam: Mucous Membranes Moist - Neck Exam Neck Exam: absent: Lymphadenopathy, Meningismus - Respiratory Exam Respiratory Exam: Decreased Breath Sounds - Cardiovascular Exam Cardiovascular Exam: +S1, +S2 - GI/Abdominal Exam GI & Abdominal Exam: Soft. absent: Tenderness - Extremities Exam Additional comments: slightly decreased swelling of both lower extremities Assessment and Plan - Assessment and Plan (Free Text) Plan: Assessment Lower extremity swelling, consider secondary to right-sided heart failure from chronic congestive heart failure, R/O cellulitis, R/O DVT right breast swelling, etiology to be determined Healthcare-associated pneumonia, right middle lobe, clinically improved history of bilateral healthcare-associated pneumonia in this patient chronic heart failure S/P acute cholecystitis, S/P laparoscopic cholecystectomy CAD with chronic CHF DM HTN history of migraines bipolar disorder Plan continue Zyvox day 2 - patient has also been started on Bactroban ointment; repeat blood cx are negative; follow up doppler ultrasound of the left lower extremity to rule out DVT Will continue to monitor clinical response Follow up Surgery plans for the right breast
--- NOTE | 2016-09-07 17:12 | PN ---
DATE: 09/07/2016 SUBJECTIVE: The patient is seen sitting in chair. She is awake. She is alert. PHYSICAL EXAMINATION: GENERAL: Elderly lady, sitting in chair. VITAL SIGNS: Blood pressure 110/50, heart rate 110, respiratory rate 20, temperature 98. HEENT: Normocephalic, atraumatic. NECK: Supple, no JVD. LUNGS: Bilateral rhonchi, basal rales. CARDIAC: S1, S2, regular rate and rhythm, no murmur, no rub. ABDOMEN: Obese, distended, soft. EXTREMITIES: 3+ pitting edema of the lower extremities. INTAKE AND OUTPUT: 1173/not charted. LABORATORY DATA: WBC 10, hemoglobin 10, hematocrit 31, platelets 447. Sodium 131, potassium 3.9, ch loride 91, CO2 34, BUN 20, creatinine 0.5. CURRENT MEDICATIONS: List reviewed. Lasix 80 IV q. 12. ASSESSMENT: 1. Dilutional hyponatremia, stable sodium now. The patient received tolvaptan x 3 doses. 2. Decompensated congestive heart failure. 3. Mild hypomagnesemia. 4. Chronic obstructive pulmonary disease. 5. History of deep venous thrombosis and pulmonary embolism. 6. Non-insulin dependent diabetes mellitus. 7. Schizophrenia. PLAN: 1. Continue IV Lasix and Zaroxolyn. 2. No indication for tolvaptan right now. 3. Keep O's greater than I's. 4. Fluid restriction. 5. Continue antibiotics for right lower lobe pneumonia. Shannan Javier MD cc: [id number] TT: 09/07/2016 17:11:33 Confirmation # [id number] Dictation # [id number]
[2016-09-07] MEDS: metOLazone 5 MG TAB PO SCH (18:06)
--- NOTE | 2016-09-07 18:09 | PN ---
DATE: 09/07/2016 REASON FOR CONSULTATION AND FOLLOWUP: Cardiac evaluation, shortness of breath, increased swelling of the leg, bilateral pleural effusion, decompensated congestive heart failure, [id number]-awnglje systol ic dysfunction, hyponatremia, improved. BRIEF CLINICAL HISTORY: This is a 51-year-old female with a past medical history significant for easton betes, hypertension, hyperlipidemia, congestive heart failure, bipolar disorder, hypothyroidism, mitr al regurgitation, tricuspid regurgitation, history of chemotherapy for lymphoma, nonischemic cardiomy opathy, status post cardiac catheterization, nonobstructive coronary artery disease, admitted with le g swelling and decompensated congestive heart failure. The patient was started on IV Primacor and __ ___ was given far hyponatremia, 3 doses. The patient is on IV Lasix and Zaroxolyn, improving. PHYSICAL EXAMINATION: VITAL SIGNS: Temperature afebrile, heart rate 104, blood pressure 110/50. HEENT: PERRLA. Extraocular muscles intact. NECK: Supple. No carotid bruits. No thyromegaly. CHEST: Clear to auscultation. HEART: S1, S2 regular. ABDOMEN: Soft. EXTREMITIES: Clubbing and cyanosis negative. BLOOD WORKUP: As follows: WBC 10.4, hemoglobin , hematocrit 31.0, platelet count 447. 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 IMPRESSION: Decompensated congestive heart failure, rguve-fr-ifjtaic systolic dysfunction, status po st chemotherapy for lymphoma, nonischemic cardiomyopathy, status post cardiac , nonischemic card iomyopathy secondary to chemotherapy, nonobstructive coronary artery disease, leg swelling, hyponatre shahriar, improved; multiple electrolyte abnormalities, improved; history of deep venous thrombosis of rig ht upper extremity, history of removal of Port-A-Cath. RECOMMENDATION: Continue IV Lasix, continue Zaroxolyn, continue Primacor as blood pressures tolerate . Continue IV diuresis. The patient is on Eliquis for DVT. Will follow with you. Thank you, Dr. Roman, for providing me the opportunity in taking care of this patient. The patient also has a history of severe MR and TR. Mau Orozco MD cc: [id number] TT: 09/07/2016 18:09:16 Confirmation # [id number] Dictation # [id number] dn
[2016-09-07] MEDS ORDERED: Milrinone 20mg/100ml D5W 100 ML IV PRN (20:20)
[2016-09-07] MEDS: Milrinone 20mg/100ml D5W 100 ML IV SCH (20:26)
[2016-09-07] MEDS: Insulin Detemir 100 units/ml Vial (Levemir) SC SCH (21:45)
[2016-09-08] MEDS: Linezolid 600 mg in D5W 300 ml 600 MG/300 ML BAG IVPB SCH ×2 (05:19→17:49)
[2016-09-08] MEDS: Acetylcysteine 20% Inhal Soln (4ml) IH SCH ×3 (07:36→20:00)
[2016-09-08] MEDS: Levalbuterol 0.63 MG/3 ML Inhal Soln UD IH SCH ×3 (07:37→20:00)
[2016-09-08 08:17] LABS: HEMATOCRIT 32.6 % (36.0-48.0); MEAN CELL VOLUME 74.8 fL (80.0-105.0); MEAN CORPUSCULAR HEMOGLOBIN 24.8 pg (25.0-35.0); MEAN CORPUSCULAR HGB CONC 33.1 g/dl (31.0-37.0); MEAN PLATELET VOLUME 9.9 fl (7.0-11.0); RED CELL DISTRIBUTION WIDTH 20.2 % (11.5-14.5); WHITE BLOOD COUNT 10.6 10^3/ul (4.5-11.0)
[2016-09-08] MEDS: Levothyroxine 125 MCG TAB PO SCH (08:19)
[2016-09-08] MEDS: Potassium Chloride 20 mEq ER Tab PO SCH (08:20)
[2016-09-08] MEDS: Pantoprazole 20 mg EC Tab PO SCH (08:20)
[2016-09-08] MEDS: Insulin Reg-LOW-Coverage SC SCH ×4 (08:21→22:11)
[2016-09-08 08:24] LABS: ALB/GLOB RATIO 1.1 (1.1-1.8); ALKALINE PHOSPHATASE 163 U/L (38-133); ALT/SGPT 55 U/L (7-56); AST/SGOT 31 U/L (15-39); BILIRUBIN,TOTAL 0.6 mg/dL (0.2-1.3); BLOOD UREA NITROGEN 16 mg/dL (7-21); CALCIUM 9.1 mg/dL (8.4-10.5); CARBON DIOXIDE 28 mmol/L (21-33); CHLORIDE 91 mmol/L (98-107); GFR AFRICAN-AMERICAN > 60; GLUCOSE,RANDOM 171 mg/dL (70-110); POTASSIUM 4.5 mmol/L (3.6-5.0); SODIUM 128 mmol/L (132-148); TOTAL PROTEIN 6.4 g/dL (5.8-8.3)
--- NOTE | 2016-09-08 10:26 | CP.PCM.PN ---
Subjective - Date & Time of Evaluation Date of Evaluation: 09/08/16 Time of Evaluation: 09:20 - Subjective Subjective: Patient still has the leg swelling but is less warm, non-tender to touch currently, no fevers overnight. Objective - Vital Signs/Intake and Output Vital Signs (last 24 hours): Temp Pulse Resp BP Pulse Ox 97.6 F 101 H 20 91/54 L 98 09/08/16 06:00 09/08/16 06:00 09/08/16 06:00 09/08/16 06:00 09/08/16 06:00 Intake and Output: 09/08/16 09/08/16 06:59 18:59 Intake Total 524 Output Total 1100 Balance -576 - Medications Medications: Current Medications Acetylcysteine (Acetylcysteine 20%) 3 ml IH BIDRESP [facility] Last Admin: 09/08/16 07:41 Dose: Not Given Benzocaine/Menthol (Cepacol Sore Throat) 1 mirna MT Q2H PRN PRN Reason: Sore Throat Last Admin: 09/06/16 18:11 Dose: 1 mirna Digoxin (Lanoxin) 0.25 mg PO 1400 [facility] Last Admin: 09/07/16 14:33 Dose: 0.25 mg Fluconazole (Diflucan) 200 mg PO DAILY [facility] PRN Reason: Protocol Last Admin: 09/07/16 10:48 Dose: 200 mg Furosemide (Lasix) 80 mg IVP BID [facility] Last Admin: 09/07/16 18:06 Dose: 80 mg Linezolid (Zyvox 600mg/300ml D5w) 600 mg in 300 mls @ 200 mls/hr IVPB 0600, 1800 [facility] PRN Reason: Protocol Stop: 09/13/16 10:01 Last Admin: 09/08/16 05:19 Dose: 200 mls/hr Milrinone Lactate/Dextrose (Primacor 20mg/100ml D5w) 100 mls @ 3.73 mls/hr IV .Q24H IZABELA; 0.2 MCG/KG/MIN PRN Reason: Protocol Last Admin: 09/07/16 20:26 Dose: 0.2 mcg/kg/min, 3.73 mls/hr Insulin Detemir (Levemir) 10 unit SC HS [facility] Last Admin: 09/07/16 21:45 Dose: 10 unit Insulin Human Regular (Humulin R Low) 0 units SC ACHS [facility] PRN Reason: Protocol Last Admin: 09/08/16 08:21 Dose: 1 units Levalbuterol HCl (Xopenex) 0.63 mg IH TIDRESP [facility] Last Admin: 09/08/16 07:37 Dose: 0.63 mg Levothyroxine Sodium (Synthroid) 125 mcg PO ACB [facility] Last Admin: 09/08/16 08:19 Dose: 125 mcg Lisinopril (Zestril) 2.5 mg PO DAILY [facility] Last Admin: 09/07/16 10:34 Dose: Not Given Lorazepam (Ativan) 0.5 mg PO HS [facility] Last Admin: 09/07/16 21:44 Dose: 0.5 mg Magnesium Oxide (Mag-Ox) 400 mg PO TID [facility] Last Admin: 09/07/16 18:01 Dose: 400 mg Metformin HCl (Glucophage) 1,000 mg PO BID [facility] Last Admin: 09/07/16 18:01 Dose: 1,000 mg Metolazone (Zaroxolyn) 5 mg PO DAILY [facility] Last Admin: 09/07/16 18:06 Dose: 5 mg Multi-Ingredient Cream (Hydrocerin Cream) 0 ea TOP QID PRN PRN Reason: skin breakdown Last Admin: 09/02/16 10:24 Dose: 1 applic Mupirocin (Bactroban Ointment) 0 gm TOP BID [facility] Last Admin: 09/07/16 18:01 Dose: 1 applic Nystatin (Nystop Topical Powder) 0 gm TOP DAILY PRN PRN Reason: Rash Ondansetron HCl (Zofran Inj) 4 mg IVP Q4 PRN PRN Reason: Nausea/Vomiting Pantoprazole Sodium (Protonix Ec Tab) 20 mg PO ACB [facility] Last Admin: 09/08/16 08:20 Dose: 20 mg Potassium Chloride (K-Dur 20 Meq Er Tab) 20 meq PO BRK [facility] Last Admin: 09/08/16 08:20 Dose: 20 meq Promethazine HCl/Codeine (Phenergan/Codeine Oral Syrup) 5 ml PO QID [facility] Last Admin: 09/07/16 21:45 Dose: 5 ml Propranolol HCl (Inderal) 10 mg PO TID [facility] Last Admin: 09/07/16 18:03 Dose: 10 mg Risperidone (Risperdal Tab) 0.5 mg PO 1000,1600 [facility] Last Admin: 09/07/16 18:01 Dose: 0.5 mg Risperidone (Risperdal Tab) 1 mg PO HS [facility] Last Admin: 09/07/16 21:44 Dose: 1 mg Simethicone (Mylicon Chew Tab) 80 mg PO QID PRN PRN Reason: Flatulence Ziprasidone (Geodon Inj) 10 mg IM Q4H PRN PRN Reason: Agitation - Labs Labs: 09/08/16 07:40 09/08/16 07:40 PT 13.6 Seconds (9.9-11.8) H 08/29/16 17:40 INR 1.26 (0.93-1.08) H 08/29/16 17:40 APTT 26.8 Seconds (23.7-30.8) 08/29/16 17:40 - Constitutional Appears: Non-toxic, No Acute Distress - Head Exam Head Exam: NORMAL INSPECTION - Neck Exam Neck Exam: absent: Meningismus - Respiratory Exam Respiratory Exam: Decreased Breath Sounds - Cardiovascular Exam Cardiovascular Exam: +S1, +S2 - GI/Abdominal Exam GI & Abdominal Exam: Soft. absent: Tenderness - Extremities Exam Additional comments: both lower extremities with swelling, some erythema but non-tender to touch and much less warmth Assessment and Plan - Assessment and Plan (Free Text) Plan: Assessment Lower extremity swelling, consider secondary to right-sided heart failure from chronic congestive heart failure, R/O cellulitis; no evidence of DVT right breast swelling, etiology to be determined Healthcare-associated pneumonia, right middle lobe, clinically improved history of bilateral healthcare-associated pneumonia in this patient chronic heart failure S/P acute cholecystitis, S/P laparoscopic cholecystectomy CAD with chronic CHF DM HTN history of migraines bipolar disorder Plan continue Zyvox day 3 and Bactroban ointment; repeat blood cx are negative - would recommend a 7 day course of antibiotics Will continue to monitor clinical response
[2016-09-08] MEDS: metOLazone 5 MG TAB PO SCH (10:38)
[2016-09-08] MEDS: Magnesium Oxide 400 mg Tab UD PO SCH ×3 (10:38→17:48)
[2016-09-08] MEDS: Promethazine/Cod 6.25mg-10mg/5ml Syr UD PO SCH ×4 (10:39→22:11)
--- NOTE | 2016-09-08 11:22 | PN ---
DATE: 09/07/2016 The patient feels better, she looks better. Her leg swelling is down. She has no chest pain, no ___ __ improved. PHYSICAL EXAMINATION: VITAL SIGNS: Her temperature was 98, heart rate 113, blood pressure 104/67, respirations 19. HEAD AND NECK: Normal. No JVD. No thyromegaly. CHEST: Clear, good entry. CARDIAC: First sounds and second sounds normal. ABDOMEN: Soft, obese, nontender. EXTREMITIES: Mild edema, improved, and decreased redness on the leg . NEUROLOGIC: Normal. LABORATORY DATA: Includes blood cultures x 2 which came back negative. She also had white count 10. 4, hemoglobin 10.1, hematocrit 31, platelets are 447. Chem is sodium 131, potassium 3.9, chloride 91 , bicarbonate 34, BUN 20, creatinine 0.5. Liver function test is normal. Alkaline phosphatase 159, AST 42, ALT normal. IMPRESSION AND PLAN: 1. Acute systolic heart failure on top of chronic. Continue Lasix, continue IV milrinone. 2. Cellulitis, left more than right. Continue IV vancomycin and meropenem. The patient initially t ook Zyvox for 1 day. Been seen by ID and was maintained on meropenem and vancomycin. Continue curre nt treatment. Continue diuretics. 3. Congestive hepatomegaly and abnormal liver function test. We will talk with Dr. Quigley, gastro enterology, about the questionable liver mass on MRI. We will see what he will do. At this time, abhishek leiva is more cardiac and more sick from her heart. At this time, we will hold off on any procedures at this time or any workup for that now. 4. Diabetes. Continue insulin coverage. Seems stable at 100-150. 5. Obesity, chronic obstructive pulmonary disease, bilateral pleural effusions, history of pneumonia , hypothyroidism. Continue current medication. Follow up clinically. Richardson Roman MD cc: [phone] TT: 09/08/2016 11:21:57 Confirmation # [id number] Dictation # [id number] jose
--- NOTE | 2016-09-08 11:32 | CP.PCM.PN ---
Subjective - Date & Time of Evaluation Date of Evaluation: 09/08/16 Time of Evaluation: 10:25 - Subjective Subjective: Seen and examined at bedside. OOB to chair. NO new complaints. No SOB, CP, N/V or abdominal pain. Having regular BM, no over t GI bleeding reported. Less coughing and LE edema improving. Objective - Vital Signs/Intake and Output Vital Signs (last 24 hours): Temp Pulse Resp BP Pulse Ox 97.6 F 113 H 20 92/60 L 98 09/08/16 06:00 09/08/16 10:40 09/08/16 06:00 09/08/16 10:40 09/08/16 06:00 Intake and Output: 09/08/16 09/08/16 06:59 18:59 Intake Total 524 Output Total 1100 Balance -576 - Medications Medications: Current Medications Acetylcysteine (Acetylcysteine 20%) 3 ml IH BIDRESP [facility] Last Admin: 09/08/16 07:41 Dose: Not Given Benzocaine/Menthol (Cepacol Sore Throat) 1 mirna MT Q2H PRN PRN Reason: Sore Throat Last Admin: 09/06/16 18:11 Dose: 1 mirna Digoxin (Lanoxin) 0.25 mg PO 1400 [facility] Last Admin: 09/07/16 14:33 Dose: 0.25 mg Fluconazole (Diflucan) 200 mg PO DAILY [facility] PRN Reason: Protocol Last Admin: 09/08/16 10:38 Dose: 200 mg Furosemide (Lasix) 80 mg IVP BID [facility] Last Admin: 09/08/16 10:40 Dose: Not Given Linezolid (Zyvox 600mg/300ml D5w) 600 mg in 300 mls @ 200 mls/hr IVPB 0600, 1800 [facility] PRN Reason: Protocol Stop: 09/13/16 10:01 Last Admin: 09/08/16 05:19 Dose: 200 mls/hr Milrinone Lactate/Dextrose (Primacor 20mg/100ml D5w) 100 mls @ 3.73 mls/hr IV .Q24H [facility]; 0.2 MCG/KG/MIN PRN Reason: Protocol Last Admin: 09/07/16 20:26 Dose: 0.2 mcg/kg/min, 3.73 mls/hr Insulin Detemir (Levemir) 10 unit SC HS [facility] Last Admin: 09/07/16 21:45 Dose: 10 unit Insulin Human Regular (Humulin R Low) 0 units SC [facility] PRN Reason: Protocol Last Admin: 09/08/16 08:21 Dose: 1 units Levalbuterol HCl (Xopenex) 0.63 mg IH TIDRESP [facility] Last Admin: 09/08/16 07:37 Dose: 0.63 mg Levothyroxine Sodium (Synthroid) 125 mcg PO ACB [facility] Last Admin: 09/08/16 08:19 Dose: 125 mcg Lisinopril (Zestril) 2.5 mg PO DAILY [facility] Last Admin: 09/08/16 10:40 Dose: Not Given Lorazepam (Ativan) 0.5 mg PO [facility] Last Admin: 09/07/16 21:44 Dose: 0.5 mg Magnesium Oxide (Mag-Ox) 400 mg PO TID [facility] Last Admin: 09/08/16 10:38 Dose: 400 mg Metformin HCl (Glucophage) 1,000 mg PO BID [facility] Last Admin: 09/08/16 10:38 Dose: 1,000 mg Metolazone (Zaroxolyn) 5 mg PO DAILY [facility] Last Admin: 09/08/16 10:38 Dose: 5 mg Multi-Ingredient Cream (Hydrocerin Cream) 0 ea TOP QID PRN PRN Reason: skin breakdown Last Admin: 09/02/16 10:24 Dose: 1 applic Mupirocin (Bactroban Ointment) 0 gm TOP BID [facility] Last Admin: 09/08/16 10:41 Dose: 1 applic Nystatin (Nystop Topical Powder) 0 gm TOP DAILY PRN PRN Reason: Rash Ondansetron HCl (Zofran Inj) 4 mg IVP Q4 PRN PRN Reason: Nausea/Vomiting Pantoprazole Sodium (Protonix Ec Tab) 20 mg PO ACB [facility] Last Admin: 09/08/16 08:20 Dose: 20 mg Potassium Chloride (K-Dur 20 Meq Er Tab) 20 meq PO BRK [facility] Last Admin: 09/08/16 08:20 Dose: 20 meq Promethazine HCl/Codeine (Phenergan/Codeine Oral Syrup) 5 ml PO QID [facility] Last Admin: 09/08/16 10:39 Dose: 5 ml Propranolol HCl (Inderal) 10 mg PO TID [facility] Last Admin: 09/08/16 10:39 Dose: Not Given Risperidone (Risperdal Tab) 0.5 mg PO 1000,1600 [facility] Last Admin: 09/08/16 10:38 Dose: 0.5 mg Risperidone (Risperdal Tab) 1 mg PO HS [facility] Last Admin: 09/07/16 21:44 Dose: 1 mg Simethicone (Mylicon Chew Tab) 80 mg PO QID PRN PRN Reason: Flatulence Ziprasidone (Geodon Inj) 10 mg IM Q4H PRN PRN Reason: Agitation - Labs Labs: 09/08/16 07:40 09/08/16 07:40 PT 13.6 Seconds (9.9-11.8) H 08/29/16 17:40 INR 1.26 (0.93-1.08) H 08/29/16 17:40 APTT 26.8 Seconds (23.7-30.8) 08/29/16 17:40 - Constitutional Appears: No Acute Distress - Head Exam Head Exam: NORMAL INSPECTION - Eye Exam Eye Exam: Normal appearance. absent: Scleral icterus - ENT Exam ENT Exam: Mucous Membranes Moist - Respiratory Exam Respiratory Exam: Clear to Ausculation Bilateral, NORMAL BREATHING PATTERN. absent: Rales, Wheezes, Respiratory Distress - Cardiovascular Exam Cardiovascular Exam: +S1, +S2 - GI/Abdominal Exam GI & Abdominal Exam: Soft, Normal Bowel Sounds. absent: Guarding, Tenderness, Organomegaly, Rebound - Extremities Exam Extremities Exam: Pedal Edema. absent: Calf Tenderness - Neurological Exam Neurological Exam: Alert, Awake, Oriented x3 - Skin Skin Exam: Dry, Warm Assessment and Plan - Assessment and Plan (Free Text) Assessment: ASSESSMENT: Elevated LFT. LFT trending down. likely 2/2 hepatic congestion. Decompesated CHF No Leukocytosis H/O cholecystectomy H/O DVT/PE Liver hemangioma, s/p triple phase liver ct, no mass seen PLAN: continue present treatment, LFT continue to improve, likely secondary to hepatic congestion, no GI complaints, patient is doing well, no planned GI interventions at present time, please reconsult as needed. Discussed with Dr. Quigley
--- NOTE | 2016-09-08 13:23 | PN ---
DATE: 09/08/2016 SUBJECTIVE: The patient is seen sitting in chair. She is awake. She is alert. She reports lower e xtremity edema is improving. She also reports that her cough is better, but she is still coughing. PHYSICAL EXAMINATION: GENERAL: Middle aged lady sitting in chair. VITAL SIGNS: Blood pressure 92/60, heart rate 113, respiratory rate 20, temperature 97.6. NECK: Supple, no JVD. LUNGS: Bilateral equal air entry, crackles right base, bilateral rhonchi. CARDIAC: S1, S2, regular rate and rhythm, no murmur, no rub. ABDOMEN: Obese, distended, soft, nontender, bowel sounds present. EXTREMITIES: 2+ pitting edema of the lower extremities. INTAKE AND OUTPUT: 824/1100. LABORATORY DATA: WBC 10.6, hemoglobin 10.8, hematocrit 33, platelets 472. Sodium 128, potassium 4.5 , chloride 91, CO2 28, BUN 16, creatinine 0.5, glucose 171, calcium 9.1, AST 31, ALT 55, albumin 3.3. Blood cultures from 08/27, no growth. CURRENT MEDICATIONS: Mucomyst, Ativan, Bactroban, Cepacol, Diflucan, Geodon, metformin 1000 b.i.d., insulin, Inderal 10 t.i.d., potassium 20 mEq, Lanoxin, Lasix 80 IV q. 12, Levemir, mag oxide, Mylicon , Nystatin, milrinone, Protonix, Risperdal, Synthroid, Xopenex, Zaroxolyn 5 daily, lisinopril 2.5, Zo prasanth, Zyvox. ASSESSMENT: 1. Dilutional hyponatremia. 2. Decompensated congestive heart failure, total body volume overload, anasarca. 3. Right lower lobe pneumonia. 4. Chronic obstructive pulmonary disease. 5. Non-insulin dependent diabetes mellitus. 6. Bipolar disorder. PLAN: 1. Continue IV Lasix. 2. Continue milrinone. 3. Keep O's greater than I's. 4. Monitor daily weights. 5. Monitor electrolytes. 6. Continue fingersticks and insulin coverage. Shannan Javier MD cc: [id number] TT: 09/08/2016 13:22:38 Confirmation # [id number] Dictation # [id number] rn
[2016-09-08] MEDS: Digoxin 250 mcg (0.25 mg) Tab PO SCH (13:55)
--- NOTE | 2016-09-08 14:42 | PN ---
DATE: 09/08/2016 REASON FOR CONSULTATION AND FOLLOWUP: Cardiac evaluation, shortness of breath, increased swelling of the leg, bilateral pleural effusion, decompensated congestive heart failure, acute on chronic systol ic dysfunction, hyponatremia, improved. BRIEF CLINICAL HISTORY: A 51-year-old female with a past medical history significant for diabetes, h ypertension, hyperlipidemia, congestive heart failure, bipolar disorder, hypothyroidism, mitral regur gitation, tricuspid regurgitation, history of chemotherapy and lymphoma, nonischemic cardiomyopathy, status post cardiac catheterization a year or two ago, nonobstructive coronary artery disease, admitt ed with leg swelling, decompensated congestive heart failure. The patient started on Primacor and al so given ____ hyponatremia, improved. Now patient is on Zaroxolyn and Lasix. PHYSICAL EXAMINATION: VITAL SIGNS: Temperature afebrile, heart rate 78, blood pressure 108/65. HEENT: PERRLA. Extraocular muscles intact. NECK: Supple. No carotid bruits. No thyromegaly. CHEST: Clear to auscultation. HEART: S1, S2 regular. ABDOMEN: Soft. EXTREMITIES: Clubbing and cyanosis negative. BLOOD WORKUP: As follows: WBC 10.6, hemoglobin 10.8, hematocrit 32.6, platelet count 472. Chemistr y shows sodium 120, potassium ____, chloride 91, carbon dioxide 28, anion gap of 14, BUN 16, creatini ne 0.5. IMPRESSION: Decompensated congestive heart failure, acute on chronic secondary to systolic dysfuncti on, nonischemic cardiomyopathy, possibly secondary to chemotherapy secondary to lymphoma, history of right upper extremity deep venous thrombosis, severe mitral regurgitation, tricuspid regurgitation, n onobstructive coronary artery disease, status post cardiac catheterization, hyponatremia. RECOMMENDATION: Continue Primacor, monitor electrolytes, ____ sodium, potassium and magnesium. Cont inue Zaroxolyn. We will follow with you. The patient was on Eliquis, recently probably discontinued . If prolonged discontinuation is suggested, we will put Lovenox. We will discuss with Dr. Jessie smith or DVT prophylaxis, at least. Thank you, Dr. Roman, for providing the opportunity in taking care of the patient. Will repeat the lab in the morning. Mau Orozco MD cc: [facility] TT: 09/08/2016 14:42:20 Confirmation # [id number] Dictation # [id number] rn
--- NOTE | 2016-09-08 22:02 | PN ---
DATE: 09/08/2016 REFERRING PHYSICIAN: Dr. Roman. SUBJECTIVE: She is out of bed to chair, feels better, decreased cough, decreased shortness of breath . No nausea, no vomiting, no diarrhea. Decreased leg swelling. OBJECTIVE: GENERAL: No acute distress. VITAL SIGNS: Temperature is 98, heart rate is 115, respiratory rate is 20, blood pressure 121/83, pu lse ox 98% on room air. HEENT: Moist mucous membranes. Crowded airway. NECK: Supple. No JVD. LUNGS: Has decreased breath sounds at the bases. HEART: S1, S2. ABDOMEN: Soft, nontender. No organomegaly. EXTREMITIES: Does have edema of the lower extremities. NEUROLOGIC: Awake, alert, follows simple command. MEDICATIONS: She is on Mucomyst 3 mL inhaled twice a day, Ativan 0.5 mg at bedtime, Cepacol lozenges q. 2 hours p.r.n., Geodon 10 mg q. 4 hours, metformin 1000 mg twice a day, insulin coverage, Indera l 10 mg 3 times a day, potassium 20 mEq daily, digoxin 0.25 mg daily, Lasix 10 mg daily, magnesium ox charbel 400 mg 3 times a day, ____promethazine with codeine q.i.d. p.r.n., milrinone IV drip, Protonix 20 mg daily, Risperdal 0.5 mg twice a day, 1 mg at bedtime. Synthroid 125 mcg daily, Xopenex 0.6 at 3 times a day, Zaroxolyn 5 mg daily, Zestril is 2.5 mg daily, Zofran p.r.n., Zyvox 600 mg twice a day. LABORATORY DATA: Shows hemoglobin 10.8, hematocrit 32.6, WBC 10.6, platelet is 472. Sodium 128, pot assium 4.5, chloride 91, bicarbonate 28, BUN 16, creatinine 0.5, glucose 256. Calcium is 9.1, AST 31 , ALT 55, alkaline phosphatase is 160. Albumin is 3.3. IMPRESSION AND PLAN: Cardiomyopathy, may have sleep apnea syndrome, pleural effusion, schizophrenia, lymphoma, chronic obstructive lung disease, noncompliant with the medication and fluid intake. Pulm onary point of view, doing well. Continue bronchodilator. 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 We may have to limit her p.o. fluid intake, lets limit to 1 liter. Thank you and diane coello follow with you. Mau More MD cc: [id number] TT: 09/08/2016 22:02:10 Confirmation # [id number] Dictation # [id number] devin
[2016-09-08] MEDS: Insulin Detemir 100 units/ml Vial (Levemir) SC SCH (22:11)
[2016-09-08] MEDS: Milrinone 20mg/100ml D5W 100 ML IV SCH (23:27)
[2016-09-09] MEDS: Linezolid 600 mg in D5W 300 ml 600 MG/300 ML BAG IVPB SCH ×2 (05:13→17:38)
[2016-09-09 07:11] LABS: ALB/GLOB RATIO 1.1 (1.1-1.8); ALKALINE PHOSPHATASE 147 U/L (38-133); ALT/SGPT 45 U/L (7-56); AST/SGOT 23 U/L (15-39); BILIRUBIN,TOTAL 0.5 mg/dL (0.2-1.3); BLOOD UREA NITROGEN 19 mg/dL (7-21); CALCIUM 9.1 mg/dL (8.4-10.5); CARBON DIOXIDE 30 mmol/L (21-33); CHLORIDE 90 mmol/L (98-107); GFR AFRICAN-AMERICAN > 60; GLUCOSE,RANDOM 217 mg/dL (70-110); MAGNESIUM 1.4 mg/dL (1.7-2.2); PHOSPHOROUS 3.9 mg/dL (2.5-4.5); POTASSIUM 3.7 mmol/L (3.6-5.0); SODIUM 128 mmol/L (132-148); TOTAL PROTEIN 6.1 g/dL (5.8-8.3)
[2016-09-09 07:20] LABS: MEAN CELL VOLUME 74.7 fL (80.0-105.0); MEAN CORPUSCULAR HEMOGLOBIN 24.1 pg (25.0-35.0); MEAN CORPUSCULAR HGB CONC 32.3 g/dl (31.0-37.0); MEAN PLATELET VOLUME 9.5 fl (7.0-11.0); RED CELL DISTRIBUTION WIDTH 19.1 % (11.5-14.5); WHITE BLOOD COUNT 10.8 10^3/ul (4.5-11.0)
[2016-09-09] MEDS: Acetylcysteine 20% Inhal Soln (4ml) IH SCH ×2 (07:44→20:05)
[2016-09-09] MEDS: Levalbuterol 0.63 MG/3 ML Inhal Soln UD IH SCH ×3 (07:44→20:06)
[2016-09-09] MEDS: Insulin Reg-LOW-Coverage SC SCH ×4 (07:47→22:16)
[2016-09-09] MEDS: Pantoprazole 20 mg EC Tab PO SCH (07:48)
[2016-09-09] MEDS: Potassium Chloride 20 mEq ER Tab PO SCH ×3 (07:48→17:43)
[2016-09-09] MEDS: Levothyroxine 125 MCG TAB PO SCH (07:48)
[2016-09-09] MEDS ORDERED: Potassium Chloride 20 mEq ER Tab PO ONE (09:08)
[2016-09-09] MEDS ORDERED: Magnesium Sulfate 2 GM in Sodium Chloride 0.9% 100 ML IVPB ONE ×2 (09:08→12:00)
[2016-09-09] MEDS: Magnesium Oxide 400 mg Tab UD PO SCH ×3 (09:44→17:37)
[2016-09-09] MEDS: Promethazine/Cod 6.25mg-10mg/5ml Syr UD PO SCH ×4 (09:45→22:12)
[2016-09-09] MEDS: metOLazone 5 MG TAB PO SCH (09:45)
--- NOTE | 2016-09-09 10:07 | PN ---
DATE: 09/09/2016 REASON FOR CONSULTATION AND FOLLOWUP: Cardiac evaluation, shortness of breath, increased swelling of the legs, bilateral pleural effusion, decompensated congestive heart failure, acute on chronic, seco ndary to systolic dysfunction, hyponatremia, improving. BRIEF CLINICAL HISTORY: A 51-year-old female with a past medical history significant for diabetes, h ypertension, hyperlipidemia, congestive heart failure, bipolar disorder, hypothyroidism, mitral regur gitation, tricuspid regurgitation, history of chemotherapy following lymphoma, nonischemic cardiomyop athy, status post cardiac catheterization a year or 2 ago, nonobstructive coronary artery disease. A dmitted with leg swelling, decompensated congestive heart failure. Also, patient came in with severe hyponatremia, started on tolvaptan, improved patient started on Primacor, diuretics, Zaroxolyn added. The patient is improving and decreased leg swelling. PHYSICAL EXAMINATION: VITAL SIGNS: Temperature afebrile, heart rate 100, blood pressure 90/48. HEENT: PERRLA. Extraocular muscles intact. NECK: Supple. No carotid bruits. No thyromegaly. CHEST: Clear to auscultation. HEART: S1, S2 regular. ABDOMEN: Soft. EXTREMITIES: Clubbing, cyanosis negative, 2+ pedal edema noted. BLOOD WORKUP: WBC 10.8, hemoglobin 10.0, hematocrit 31.0, platelet count 465. Chemistry shows sodiu m , potassium 3.7, chloride 90, carbon dioxide 30, anion gap of 12, BUN 19, creatinine 0.6. IMPRESSION: Hyponatremia, diabetes, hypertension, hyperlipidemia, bipolar disorder, cardiomyopathy, underwent cardiac catheterization, nonobstructive coronary artery disease, mitral regurgitation, tric uspid regurgitation, nonischemic cardiomyopathy, secondary to chemotherapy for lymphoma, bipolar diso rder, history of deep venous thrombosis of right upper extremity, history of removal of Port-A-Cath, history of tachycardia on propranolol. RECOMMENDATION: Monitor electrolytes. Supplement potassium, magnesium. Hypomagnesemia. Continue E liquis, continue diuretics, continue Primacor. Will follow with you. We will decrease the dose of L asix to 40. We will decrease the dose of the Lasix 40. Will follow with you. Thank you, Dr. Roman, for providing us the opportunity in taking care of the patient. Mau Orozco MD cc: [id number] TT: 09/09/2016 09:57:59 Confirmation # [id number] Dictation # [id number] en
--- NOTE | 2016-09-09 10:15 | PN ---
DATE: 09/09/2016 SUBJECTIVE: The patient is seen sitting in chair. She is awake. She is alert. PHYSICAL EXAMINATION: GENERAL: Middle aged lady sitting in chair. VITAL SIGNS: Blood pressure 90/48, heart rate 100, respiratory rate 18, temperature 98.2. HEENT: Normocephalic, atraumatic. NECK: Supple, no JVD. LUNGS: Bilateral equal air entry. Crackles, right base greater than left side, bilateral rhonchi. CARDIAC: S1, S2, regular rate and rhythm, no murmur, no rub. ABDOMEN: Obese, distended, soft, nontender, bowel sounds present. EXTREMITIES: 3+ pitting edema of the lower extremities. INTAKE AND OUTPUT: Not charted. LABORATORY DATA: WBC 10.8, hemoglobin 10, hematocrit 31, platelets 465. Sodium 128, potassium 3.7, chloride 90, CO2 30, BUN 19, creatinine 0.6, glucose 217, calcium 9.1, phosphorus 3.9, magnesium 1.4, albumin 3.2. CURRENT MEDICATIONS: List reviewed. The patient remains on Eliquis, metformin 1000 b.i.d., Inderal, potassium chloride 20 mEq daily, digoxin, Lasix 40 IV q. 12, mag sulfate 2 grams, milrinone, Zaroxol yn 5 daily, Zestril 2.5, Zyvox. ASSESSMENT: 1. Dilutional hyponatremia. 2. Congestive heart failure, cardiomyopathy, total body volume overload. 3. Chronic obstructive pulmonary disease. 4. Right lower lobe pneumonia. 5. Non-insulin dependent diabetes mellitus. 6. Bipolar disorder. 7. Hypomagnesemia. PLAN: 1. Continue to diurese. 2. Monitor daily weights. 3. Keep O's greater than I's. 4. Agree with magnesium supplementation. 5. Change potassium to 20 mEq b.i.d. 6. Continue milrinone. Shannan Javier MD cc: [id number] TT: 09/09/2016 10:14:55 Confirmation # [id number] Dictation # [id number] tn
--- NOTE | 2016-09-09 10:17 | CP.PCM.PN ---
Subjective - Date & Time of Evaluation Date of Evaluation: 09/09/16 Time of Evaluation: 09:00 - Subjective Subjective: Comfortable, slowly improving swelling of the feet, not in distress, afebrile. Objective - Vital Signs/Intake and Output Vital Signs (last 24 hours): Temp Pulse Resp BP Pulse Ox 98.2 F 104 H 18 95/65 L 94 L 09/09/16 06:00 09/09/16 09:46 09/09/16 06:00 09/09/16 09:46 09/09/16 06:00 Intake and Output: 09/09/16 09/09/16 06:59 18:59 Intake Total 449 Output Total 0 Balance 449 - Medications Medications: Current Medications Acetylcysteine (Acetylcysteine 20%) 3 ml IH BIDRESP IZABELA Last Admin: 09/09/16 07:44 Dose: Not Given Apixaban (Eliquis) 5 mg PO BID IZABELA PRN Reason: Protocol Last Admin: 09/09/16 09:41 Dose: 5 mg Benzocaine/Menthol (Cepacol Sore Throat) 1 mirna MT Q2H PRN PRN Reason: Sore Throat Last Admin: 09/06/16 18:11 Dose: 1 mirna Digoxin (Lanoxin) 0.25 mg PO 1400 IZABELA Last Admin: 09/08/16 13:55 Dose: 0.25 mg Furosemide (Lasix) 40 mg IV 0800,1400 IZABELA Linezolid (Zyvox 600mg/300ml D5w) 600 mg in 300 mls @ 200 mls/hr IVPB 0600, 1800 IZABELA PRN Reason: Protocol Stop: 09/13/16 10:01 Last Admin: 09/09/16 05:13 Dose: 200 mls/hr Milrinone Lactate/Dextrose (Primacor 20mg/100ml D5w) 100 mls @ 3.73 mls/hr IV .Q24H IZABELA; 0.2 MCG/KG/MIN PRN Reason: Protocol Last Admin: 09/08/16 23:27 Dose: Not Given Magnesium Sulfate 2 gm/ Sodium (Chloride) 104 mls @ 102 mls/hr IVPB ONCE ONE Stop: 09/09/16 13:01 Insulin Detemir (Levemir) 10 unit SC HS IZABELA Last Admin: 09/08/16 22:11 Dose: 10 unit Insulin Human Regular (Humulin R Low) 0 units SC ACHS [facility] PRN Reason: Protocol Last Admin: 09/09/16 07:47 Dose: 2 units Levalbuterol HCl (Xopenex) 0.63 mg IH TIDRESP [facility] Last Admin: 09/09/16 07:44 Dose: Not Given Levothyroxine Sodium (Synthroid) 125 mcg PO ACB [facility] Last Admin: 09/09/16 07:48 Dose: 125 mcg Lisinopril (Zestril) 2.5 mg PO DAILY [facility] Last Admin: 09/09/16 09:46 Dose: Not Given Lorazepam (Ativan) 0.5 mg PO HS [facility] Last Admin: 09/08/16 22:10 Dose: 0.5 mg Magnesium Oxide (Mag-Ox) 400 mg PO TID [facility] Last Admin: 09/09/16 09:44 Dose: 400 mg Metformin HCl (Glucophage) 1,000 mg PO BID [facility] Last Admin: 09/09/16 09:41 Dose: 1,000 mg Metolazone (Zaroxolyn) 5 mg PO DAILY [facility] Last Admin: 09/09/16 09:45 Dose: 5 mg Multi-Ingredient Cream (Hydrocerin Cream) 0 ea TOP QID PRN PRN Reason: skin breakdown Last Admin: 09/02/16 10:24 Dose: 1 applic Mupirocin (Bactroban Ointment) 0 gm TOP BID [facility] Last Admin: 09/09/16 09:40 Dose: 1 applic Nystatin (Nystop Topical Powder) 0 gm TOP DAILY PRN PRN Reason: Rash Ondansetron HCl (Zofran Inj) 4 mg IVP Q4 PRN PRN Reason: Nausea/Vomiting Pantoprazole Sodium (Protonix Ec Tab) 20 mg PO ACB [facility] Last Admin: 09/09/16 07:48 Dose: 20 mg Potassium Chloride (K-Dur 20 Meq Er Tab) 20 meq PO BID [facility] Last Admin: 09/09/16 10:06 Dose: Not Given Promethazine HCl/Codeine (Phenergan/Codeine Oral Syrup) 5 ml PO QID [facility] Last Admin: 09/09/16 09:45 Dose: 5 ml Propranolol HCl (Inderal) 10 mg PO TID [facility] Last Admin: 09/09/16 09:42 Dose: Not Given Risperidone (Risperdal Tab) 0.5 mg PO 1000,1600 [facility] Last Admin: 09/09/16 09:45 Dose: 0.5 mg Risperidone (Risperdal Tab) 1 mg PO HS [facility] Last Admin: 09/08/16 22:10 Dose: 1 mg Simethicone (Mylicon Chew Tab) 80 mg PO QID PRN PRN Reason: Flatulence Ziprasidone (Geodon Inj) 10 mg IM Q4H PRN PRN Reason: Agitation - Labs Labs: 09/09/16 06:30 09/09/16 06:30 PT 13.6 Seconds (9.9-11.8) H 08/29/16 17:40 INR 1.26 (0.93-1.08) H 08/29/16 17:40 APTT 26.8 Seconds (23.7-30.8) 08/29/16 17:40 - Constitutional Appears: Non-toxic, No Acute Distress - Head Exam Head Exam: NORMAL INSPECTION - ENT Exam ENT Exam: Mucous Membranes Moist - Neck Exam Neck Exam: absent: Lymphadenopathy, Meningismus - Respiratory Exam Respiratory Exam: Decreased Breath Sounds - Cardiovascular Exam Cardiovascular Exam: +S1, +S2 - GI/Abdominal Exam GI & Abdominal Exam: Soft. absent: Tenderness - Extremities Exam Additional comments: slowly decreasing swelling of both lower extremities Assessment and Plan - Assessment and Plan (Free Text) Plan: Assessment Lower extremity swelling, consider secondary to right-sided heart failure from chronic congestive heart failure, R/O cellulitis; no evidence of DVT right breast swelling, etiology to be determined Healthcare-associated pneumonia, right middle lobe, clinically improved history of bilateral healthcare-associated pneumonia in this patient chronic heart failure S/P acute cholecystitis, S/P laparoscopic cholecystectomy CAD with chronic CHF DM HTN history of migraines bipolar disorder Plan continue Zyvox day 4 and Bactroban ointment; repeat blood cx are negative - would recommend a 7 day course of antibiotics Will continue to monitor clinical response
--- NOTE | 2016-09-09 10:31 | PN ---
DATE: 09/09/2016 REFERRING PHYSICIAN: Dr. Roman. SUBJECTIVE: The patient is out of bed to chair. Night was unremarkable. Placed on fluid restrictio n. Mild cough. No nausea, no vomiting, no diarrhea. Decreased leg swelling. OBJECTIVE: GENERAL: No acute distress. VITAL SIGNS: Temperature is 98, heart rate is 104, respiratory rate is 18, blood pressure 95/65, pul se ox 94% on room air. HEENT: Moist mucous membrane. Crowded airway. NECK: Supple. No JVD. LUNGS: Have decreased breath sounds at the bases. HEART: S1 and S2. ABDOMEN: Soft, nontender. No organomegaly. EXTREMITIES: Still have edema. NEUROLOGIC: Awake, alert, follows simple commands. MEDICATIONS: She is on Ativan 0.5 mg at bedtime, also on Cepacol lozenges, Eliquis 5 mg twice a day, Geodon 10 mg IM q. 4 hours p.r.n., metformin 1000 mg p.o. twice a day, insulin coverage, Inderal is at 10 mg 3 times a day, potassium 20 mEq twice a day, digoxin 0.25 mg daily, Lasix 40 mg twice a day, Levemir 10 units subQ at bedtime, mag oxide 400 mg 3 times a day, magnesium sulfate 2 grams IV daily and has been given today, promethazine with codeine on a p.r.n. basis, Protonix 20 mg daily, Risperd al 0.5 mg twice a day, Risperdal 1 mg at bedtime, Synthroid 125 mcg daily, Xopenex inhaler 3 times a day, Zaroxolyn 5 mg daily, Zestril 2.5 mg daily, Zofran on p.r.n. basis, Zyvox 600 mg twice a day. LABORATORY DATA: Shows hemoglobin 10.0, hematocrit 31.0, WBC 10.8, platelet is 465. Sodium 122, pot assium 3.7, chloride 90, bicarbonate 30, BUN 19, creatinine 0.6, glucose 216, calcium 9.1, phosphorus 3.9, magnesium 1.4 which is being replaced. AST 23, ALT 45, alkaline phosphatase is 147, albumin 3. 2. MICROBIOLOGY: Blood culture has been negative. IMPRESSION AND PLAN: Cardiomyopathy with heart failure, may have sleep apnea syndrome, pleural effus ion, schizophrenia, lymphoma, chronic obstructive lung disease, noncompliant with the medication. Sp erick to the patient in detail. ____ ordered. Placed on 1 liter fluid intake restriction. 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 Follow up electrolytes. Mag nesium is being replaced. Will order labs for the morning. Thank you, and will follow with you. Mau More MD cc: [phone] TT: 09/09/2016 10:30:54 Confirmation # [id number] Dictation # [id number] mn
--- NOTE | 2016-09-09 11:47 | PN ---
DATE: 09/08/2016 The patient is seen. She is sitting, comfortable, in no distress. She is still on IV milrinone, IV antibiotics. Clinically the patient seems stable. Less short of breath, less nausea and vomiting. The patient had a mammogram but the result is not available yet. PHYSICAL EXAMINATION: VITAL SIGNS: Temperature 98.1, heart rate is 115, blood pressure 121/83, respirations 22. HEAD AND NECK: Normal. No JVD, no thyromegaly. CHEST: Clear. There are diminished breath sounds on the right base compared to the left. CARDIAC: First sound, second sound normal. ABDOMEN: Soft, obese, nontender. EXTREMITIES: There is mild edema, improved, and decreased redness. NEUROLOGIC: Normal. LABORATORY DATA: Shows white count 10.6, hemoglobin 10.8, hematocrit 32.6, platelets 472. Chemistry : Sodium 128, potassium 4.5, chloride 91, bicarbonate 28, BUN 16, creatinine 0.5, blood sugar 171, c alcium 9.1. Her alk phos 163. Other liver function test is normal. The patient had lower extremity ultrasound and it was negative. IMPRESSION AND PLAN: 1. Acute systolic heart failure on top of chronic systolic heart failure. The patient does have a l ow ejection fraction. Continue IV milrinone. Continue IV diuretic/Lasix. Seems better breathing-wi se, and the edema-childress in the lower extremities. 2. The patient has hyponatremia, electrolyte abnormalities. Currently being managed by the nephrolo gist. Her sodium keeps up and down, and probably has to do with hyponatremia secondary to congestive heart failure and hypothyroidism. Will continue followup with the rotary soil stabilizer. 3. Chronic obstructive lung disease, bilateral pleural effusions. Continue diuretic, oxygen, inhale d bronchodilators. 4. Type 2 diabetes, using insulin. Continue metformin 1000 mg b.i.d., and patient also on Levemir 1 0 units subQ. 5. Abnormal liver function test, probably congestive. Will follow up with Dr. Quigley. Also, we a re going to discuss further with Dr. Quigley about the liver metastasis. At the point, the patient is more sick from her cardiopulmonary and her ____ procedures though she improved. 6. Hypothyroidism, schizophrenia and psychosis. Will continue Risperdal liquid 0.5 mg twice a day a nd 1 mg at night. We will continue that also Geodon injections p.r.n. 10 mg every 4 hours. 7. Cellulitis, both lower extremities. Currently on Zyvox 600 mg IV b.i.d. Continue current treatment. Follow up clinically. Richardson Roman MD cc: [phone] TT: 09/09/2016 11:47:02 Confirmation # [id number] Dictation # [id number] mn
[2016-09-09] MEDS: Digoxin 250 mcg (0.25 mg) Tab PO SCH (14:11)
[2016-09-09] MEDS: Milrinone 20mg/100ml D5W 100 ML IV SCH (20:00)
[2016-09-09] MEDS: Insulin Detemir 100 units/ml Vial (Levemir) SC SCH (22:17)
[2016-09-10] MEDS: Linezolid 600 mg in D5W 300 ml 600 MG/300 ML BAG IVPB SCH ×2 (05:47→18:57)
[2016-09-10 08:07] LABS: BLOOD UREA NITROGEN 20 mg/dL (7-21); CALCIUM 9.3 mg/dL (8.4-10.5); CARBON DIOXIDE 33 mmol/L (21-33); CHLORIDE 88 mmol/L (98-107); GFR AFRICAN-AMERICAN > 60; GLUCOSE,RANDOM 193 mg/dL (70-110); MAGNESIUM 1.6 mg/dL (1.7-2.2); PHOSPHOROUS 3.9 mg/dL (2.5-4.5); POTASSIUM 3.7 mmol/L (3.6-5.0); SODIUM 130 mmol/L (132-148)
[2016-09-10] MEDS: Levothyroxine 125 MCG TAB PO SCH (08:24)
[2016-09-10] MEDS: Pantoprazole 20 mg EC Tab PO SCH (08:24)
[2016-09-10] MEDS: Insulin Reg-LOW-Coverage SC SCH ×4 (08:25→23:00)
[2016-09-10] MEDS: Levalbuterol 0.63 MG/3 ML Inhal Soln UD IH SCH ×3 (08:29→19:27)
[2016-09-10] MEDS: Acetylcysteine 20% Inhal Soln (4ml) IH SCH ×2 (08:29→19:27)
--- NOTE | 2016-09-10 08:55 | PN ---
DATE: 09/08/2016 SUBJECTIVE: This patient was seen and evaluated earlier today. This is an addendum to the GI progre ss report dictated by Faye Doherty APN. The patient's LFTs continue to have a downward trend. Most likely the cause to be considered is hepatic congestion. Denies any GI complaints at the present nikunj e. Recommended to follow up the LFTs. If there is any further increasing trend or any further other GI complaints, advised to reconsult. We will sign off at the present time. Renuka Quigley MD cc: [phone] TT: 09/10/2016 08:55:06 Confirmation # [id number] Dictation # [id number] tn
[2016-09-10] MEDS: Magnesium Oxide 400 mg Tab UD PO SCH ×3 (10:57→18:58)
[2016-09-10] MEDS: Promethazine/Cod 6.25mg-10mg/5ml Syr UD PO SCH ×4 (10:57→21:19)
[2016-09-10] MEDS: Potassium Chloride 20 mEq ER Tab PO SCH ×2 (10:57→18:58)
[2016-09-10] MEDS: metOLazone 5 MG TAB PO SCH (10:57)
--- NOTE | 2016-09-10 11:22 | CP.PCM.PN ---
Subjective - Date & Time of Evaluation Date of Evaluation: 09/10/16 Time of Evaluation: 09:50 - Subjective Subjective: Comfortable, a little less leg swelling, no fevers overnight, no leg pain. Objective - Vital Signs/Intake and Output Vital Signs (last 24 hours): Temp Pulse Resp BP Pulse Ox 98.1 F 102 H 20 105/56 L 95 09/10/16 06:00 09/10/16 06:00 09/10/16 06:00 09/10/16 08:24 09/10/16 06:00 Intake and Output: 09/10/16 09/10/16 06:59 18:59 Intake Total 684 Output Total 1400 Balance -716 - Medications Medications: Current Medications Acetylcysteine (Acetylcysteine 20%) 3 ml IH BIDRESP IZABELA Last Admin: 09/10/16 08:29 Dose: Not Given Apixaban (Eliquis) 5 mg PO BID IZABELA PRN Reason: Protocol Last Admin: 09/09/16 17:37 Dose: 5 mg Benzocaine/Menthol (Cepacol Sore Throat) 1 mirna MT Q2H PRN PRN Reason: Sore Throat Last Admin: 09/06/16 18:11 Dose: 1 mirna Digoxin (Lanoxin) 0.25 mg PO 1400 IZABELA Last Admin: 09/09/16 14:11 Dose: 0.25 mg Furosemide (Lasix) 40 mg IV 0800,1400 IZABELA Last Admin: 09/10/16 08:24 Dose: 40 mg Linezolid (Zyvox 600mg/300ml D5w) 600 mg in 300 mls @ 200 mls/hr IVPB 0600, 1800 IZABELA PRN Reason: Protocol Stop: 09/13/16 10:01 Last Admin: 09/10/16 05:47 Dose: 200 mls/hr Milrinone Lactate/Dextrose (Primacor 20mg/100ml D5w) 100 mls @ 3.73 mls/hr IV .Q24H IZABELA; 0.2 MCG/KG/MIN PRN Reason: Protocol Last Admin: 09/09/16 20:00 Dose: 0.2 mcg/kg/min, 3.73 mls/hr Insulin Detemir (Levemir) 10 unit SC HS IZABELA Last Admin: 09/09/16 22:17 Dose: Not Given Insulin Human Regular (Humulin R Low) 0 units SC ACHS [facility] PRN Reason: Protocol Last Admin: 09/10/16 08:25 Dose: 1 units Levalbuterol HCl (Xopenex) 0.63 mg IH TIDRESP [facility] Last Admin: 09/10/16 08:29 Dose: 0.63 mg Levothyroxine Sodium (Synthroid) 125 mcg PO ACB [facility] Last Admin: 09/10/16 08:24 Dose: 125 mcg Lisinopril (Zestril) 2.5 mg PO DAILY [facility] Last Admin: 09/09/16 09:46 Dose: Not Given Lorazepam (Ativan) 0.5 mg PO HS [facility] Last Admin: 09/09/16 22:13 Dose: 0.5 mg Magnesium Oxide (Mag-Ox) 400 mg PO TID [facility] Last Admin: 09/09/16 17:37 Dose: 400 mg Metformin HCl (Glucophage) 1,000 mg PO BID [facility] Last Admin: 09/09/16 17:37 Dose: 1,000 mg Metolazone (Zaroxolyn) 5 mg PO DAILY [facility] Last Admin: 09/09/16 09:45 Dose: 5 mg Multi-Ingredient Cream (Hydrocerin Cream) 0 ea TOP QID PRN PRN Reason: skin breakdown Last Admin: 09/02/16 10:24 Dose: 1 applic Mupirocin (Bactroban Ointment) 0 gm TOP BID [facility] Last Admin: 09/09/16 17:38 Dose: 1 applic Nystatin (Nystop Topical Powder) 0 gm TOP DAILY PRN PRN Reason: Rash Ondansetron HCl (Zofran Inj) 4 mg IVP Q4 PRN PRN Reason: Nausea/Vomiting Last Admin: 09/09/16 11:14 Dose: 4 mg Pantoprazole Sodium (Protonix Ec Tab) 20 mg PO ACB [facility] Last Admin: 09/10/16 08:24 Dose: 20 mg Potassium Chloride (K-Dur 20 Meq Er Tab) 20 meq PO BID [facility] Last Admin: 09/09/16 17:43 Dose: 20 meq Promethazine HCl/Codeine (Phenergan/Codeine Oral Syrup) 5 ml PO QID [facility] Last Admin: 09/09/16 22:12 Dose: 5 ml Propranolol HCl (Inderal) 10 mg PO TID [facility] Last Admin: 09/09/16 17:43 Dose: Not Given Risperidone (Risperdal Tab) 0.5 mg PO 1000,1600 IZABELA Last Admin: 09/09/16 17:37 Dose: 0.5 mg Risperidone (Risperdal Tab) 1 mg PO HS IZABELA Last Admin: 09/09/16 22:13 Dose: 1 mg Simethicone (Mylicon Chew Tab) 80 mg PO QID PRN PRN Reason: Flatulence Ziprasidone (Geodon Inj) 10 mg IM Q4H PRN PRN Reason: Agitation - Labs Labs: 09/09/16 06:30 09/10/16 07:39 PT 13.6 Seconds (9.9-11.8) H 08/29/16 17:40 INR 1.26 (0.93-1.08) H 08/29/16 17:40 APTT 26.8 Seconds (23.7-30.8) 08/29/16 17:40 - Constitutional Appears: Non-toxic, No Acute Distress - Head Exam Head Exam: NORMAL INSPECTION - Respiratory Exam Respiratory Exam: Decreased Breath Sounds - Cardiovascular Exam Cardiovascular Exam: +S1, +S2 - GI/Abdominal Exam GI & Abdominal Exam: Soft. absent: Tenderness - Extremities Exam Additional comments: both lower extremities with swelling but has slightly decreased, no increased warmth, no tenderness currently Assessment and Plan - Assessment and Plan (Free Text) Plan: Assessment Lower extremity swelling, consider secondary to right-sided heart failure from chronic congestive heart failure, R/O cellulitis; no evidence of DVT right breast swelling, etiology to be determined Healthcare-associated pneumonia, right middle lobe, clinically improved history of bilateral healthcare-associated pneumonia in this patient chronic heart failure S/P acute cholecystitis, S/P laparoscopic cholecystectomy CAD with chronic CHF DM HTN history of migraines bipolar disorder Plan continue Zyvox day 5 and Bactroban ointment; repeat blood cx are negative - recommend to complete a 7 day course of antibiotics Will continue to monitor clinical response
--- NOTE | 2016-09-10 13:22 | PN ---
DATE: 09/10/2016 SUBJECTIVE: The patient is seen sitting in chair. She is awake. She is alert. She is comfortable. She reports decreasing lower extremity edema. She still has a cough. PHYSICAL EXAMINATION: GENERAL: Middle aged lady sitting in chair. VITAL SIGNS: Blood pressure 102/60, heart rate 98, respiratory rate 18, temperature 98.1. HEENT: Normocephalic, atraumatic. LUNGS: Bilateral rhonchi, crackles right side more than left. CARDIAC: S1, S2, regular rate and rhythm, no murmur, no rub. ABDOMEN: Obese, distended, soft, nontender, bowel sounds present. EXTREMITIES: 2+ pitting edema of the lower extremities, reducing. INTAKE AND OUTPUT: 2000/2400. LABORATORY DATA: WBC 10.8, hemoglobin 10, hematocrit 31, platelets 465. Sodium 130, potassium 3.7, chloride 88, CO2 33, BUN 20, creatinine 0.6, glucose 193, calcium 9.3, phosphorus 3.9, magnesium 1.6. CURRENT MEDICATIONS: List reviewed. ASSESSMENT AND PLAN: 1. Dilutional hyponatremia, improving with diuresis. 2. Congestive heart failure, anasarca, cardiomyopathy. 3. Non-insulin dependent diabetes mellitus. 4. Bipolar disorder. 5. Pneumonia. 6. Chronic obstructive pulmonary disease. PLAN: 1. Continue diuresis. 2. Continue milrinone. 3. Keep O's greater than I's. 4. Monitor electrolytes. Shannan Javier MD cc: [phone] TT: 09/10/2016 13:21:37 Confirmation # [id number] Dictation # [id number] devin
[2016-09-10] MEDS: Digoxin 250 mcg (0.25 mg) Tab PO SCH (15:38)
[2016-09-10] MEDS ORDERED: Magnesium Sulfate 1 gm in D5W 1 GM/100 ML BAG IVPB ONE (17:43)
--- NOTE | 2016-09-10 18:39 | PN ---
DATE: 09/10/2016 REFERRING PHYSICIAN: Dr. Roman. SUBJECTIVE: She is sitting up in a chair. Friends are at bedside. Night was unremarkable. Feels b vaughn, decreased cough, decreased shortness of breath. No nausea, no vomiting, no diarrhea. Decreas ed leg swelling. OBJECTIVE: GENERAL: In no acute distress. VITAL SIGNS: Temperature is 98, heart rate is 96, respiratory rate is 20, blood pressure 98/69. HEENT: Moist mucous membranes. Crowded airway. NECK: Supple. No JVD. LUNGS: Has decreased breath sounds at the bases. HEART: S1, S2. ABDOMEN: Soft, nontender. No organomegaly. EXTREMITIES: Decreased edema. NEUROLOGIC: Awake, alert, follows simple commands. MEDICATIONS: She is on Mucomyst 20% inhaled twice a day, Ativan 0.5 mg at bedtime, Cepacol lozenges q.12 hours p.r.n., Eliquis 5 mg twice a day, Geodon 10 mg q.4 hours p.r.n., also on metformin 1000 m g twice a day, insulin coverage, Inderal 10 mg 3 times a day, potassium 20 mEq daily, digoxin 0.25 mg daily, Lasix 40 mg twice a day, Levemir 10 units subQ at bedtime, mag oxide 400 mg 3 times a day, pr omethazine 5 mL q.i.d., Primacor IV drip, Protonix 20 mg daily, Risperdal 0.5 mg twice a day, Risperd al 1 mg at bedtime, Synthroid 125 mcg daily, Xopenex 0.63 mg 3 times a day, Zaroxolyn 5 mg daily, Zes tril 2.5 mg daily, Zofran on a p.r.n. basis, Zyvox 600 mg twice a day. LABORATORY DATA: Reviewed and noted. Sodium 130, potassium 3.7, chloride 88, bicarbonate 33, BUN 20 , creatinine 0.6, glucose 193, calcium 9.3, phosphorus 3.9, magnesium 1.6, alkaline phosphatase is 14 7. IMPRESSION AND PLAN: Cardiomyopathy with heart failure, may have sleep apnea syndrome, but refused t o use CPAP; pleural effusion, schizophrenia, lymphoma, chronic obstructive lung disease, noncompliant with the medication and fluid intake. Fluid has been restricted for the last 2 days and doing jhony r. Continue bronchodilator. Keep head elevated at 45 degrees. Sleep apnea precaution. Careful wit h sedation. 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 Anticoagulation. Follow up electrolytes. Thank you and will follow with you. Mau More MD cc: [phone] TT: 09/10/2016 18:38:44 Confirmation # [id number] Dictation # [id number] dn
--- NOTE | 2016-09-10 19:23 | PN ---
DATE: 09/10/2016 The patient is in room 265, bed #2. REASON FOR CONSULTATION AND FOLLOWUP: Shortness of breath, increased swelling of legs, bilateral ple ural effusion, decompensated congestive heart failure, acute on chronic systolic dysfunction, hyponat remia. HISTORY OF PRESENT ILLNESS: A 51-year-old female with past medical history significant for diabetes, hypertension, hyperlipidemia, congestive heart failure, bipolar disorder, hypothyroidism, mitral reg urgitation, tricuspid regurgitation, history of chemotherapy for lymphoma, nonischemic cardiomyopathy , status post cardiac catheterization a year ago, nonobstructive coronary artery disease, admitted wi th swelling of legs and shortness of breath showing decompensated congestive heart failure. Also pat ient showed severe hyponatremia. The patient was given tolvaptan and it showed improvement in sodium . The patient's breathing is getting better, swelling of legs is also improving. PHYSICAL EXAMINATION: VITAL SIGNS: Blood pressure 98/69, respirations 19, pulse 96, temperature 97. HEAD: Normocephalic. EYES: Pupils normal. Conjunctivae slightly pale. NECK: JVP low. Carotid equal. THORAX: AP diameter normal. LUNGS: No significant rales. CARDIOVASCULAR: S1, S2, pansystolic murmur grade III/. No rub. ABDOMEN: Soft, nontender, no organomegaly. EXTREMITIES: The patient's edema of legs is improving. No clubbing, no cyanosis. LABORATORY DATA: WBC 10.8, hemoglobin 10.0, hematocrit 31.0, platelets 495. Sodium 130, potassium 3 .7, BUN 20, creatinine 0.6, random glucose 193, magnesium 1.6. DIAGNOSES: Hyponatremia, diabetes, hypertension, hyperlipidemia, bipolar disorder, cardiomyopathy, m itral regurgitation, tricuspid regurgitation, nonischemic cardiomyopathy, secondary to chemo therapy for lymphoma, bipolar disorder, history of deep venous thrombosis of the right upper extremity, histo ry of removal of Port-A-Cath, history of tachycardia on propranolol, low magnesium. PLAN: We will give additional magnesium therapy. The patient already getting p.o. magnesium, mag ox charbel 400 mg p.o. t.i.d. The patient also on Primacor drip which will continue, levothyroxine 125 mcg p.o. daily, lisinopril 2.5 mg daily, linezolid 600 mg IV b.i.d., furosemide 40 mg IV b.i.d., Levemir 10 units subQ at bedtime. Repeat labs in the morning. We will follow with you. Mau Rivera MD cc: [id number] TT: 09/10/2016 19:22:46 Confirmation # [id number] Dictation # [id number] jn
[2016-09-10] MEDS: Milrinone 20mg/100ml D5W 100 ML IV SCH (21:03)
[2016-09-10] MEDS: Insulin Detemir 100 units/ml Vial (Levemir) SC SCH (22:59)
[2016-09-11] MEDS: Linezolid 600 mg in D5W 300 ml 600 MG/300 ML BAG IVPB SCH ×2 (05:00→18:05)
[2016-09-11] MEDS: Levalbuterol 0.63 MG/3 ML Inhal Soln UD IH SCH ×3 (08:07→20:15)
[2016-09-11] MEDS: Acetylcysteine 20% Inhal Soln (4ml) IH SCH ×2 (08:07→20:15)
[2016-09-11] MEDS: Insulin Reg-LOW-Coverage SC SCH ×4 (08:33→23:28)
[2016-09-11] MEDS: Pantoprazole 20 mg EC Tab PO SCH (08:34)
[2016-09-11] MEDS: Levothyroxine 125 MCG TAB PO SCH (08:34)
[2016-09-11 09:03] LABS: ALB/GLOB RATIO 1.1 (1.1-1.8); ALKALINE PHOSPHATASE 151 U/L (38-133); ALT/SGPT 46 U/L (7-56); AST/SGOT 43 U/L (15-39); BILIRUBIN,TOTAL 0.7 mg/dL (0.2-1.3); BLOOD UREA NITROGEN 21 mg/dL (7-21); CALCIUM 9.3 mg/dL (8.4-10.5); CARBON DIOXIDE 34 mmol/L (21-33); CHLORIDE 84 mmol/L (98-107); GFR AFRICAN-AMERICAN > 60; GLUCOSE,RANDOM 171 mg/dL (70-110); PHOSPHOROUS 4.1 mg/dL (2.5-4.5); POTASSIUM 4.1 mmol/L (3.6-5.0); SODIUM 126 mmol/L (132-148); TOTAL PROTEIN 7.1 g/dL (5.8-8.3)
[2016-09-11] MEDS: Magnesium Oxide 400 mg Tab UD PO SCH ×3 (10:46→18:05)
[2016-09-11] MEDS: Potassium Chloride 20 mEq ER Tab PO SCH ×2 (10:47→18:04)
[2016-09-11] MEDS: metOLazone 5 MG TAB PO SCH (10:47)
--- NOTE | 2016-09-11 11:16 | CP.PCM.PN ---
Subjective - Date & Time of Evaluation Date of Evaluation: 09/11/16 Time of Evaluation: 09:40 - Subjective Subjective: Comfortable, afebrile, not in distress. Objective - Vital Signs/Intake and Output Vital Signs (last 24 hours): Temp Pulse Resp BP Pulse Ox 97.9 F 93 H 19 100/50 L 96 09/11/16 05:41 09/11/16 05:41 09/11/16 05:41 09/11/16 08:34 09/11/16 05:41 Intake and Output: 09/11/16 09/11/16 06:59 18:59 Intake Total 1045 Output Total 750 Balance 295 - Medications Medications: Current Medications Acetylcysteine (Acetylcysteine 20%) 3 ml IH BIDRESP [facility] Last Admin: 09/11/16 08:07 Dose: Not Given Apixaban (Eliquis) 5 mg PO BID [facility] PRN Reason: Protocol Last Admin: 09/10/16 18:57 Dose: 5 mg Benzocaine/Menthol (Cepacol Sore Throat) 1 mirna MT Q2H PRN PRN Reason: Sore Throat Last Admin: 09/06/16 18:11 Dose: 1 mirna Digoxin (Lanoxin) 0.25 mg PO 1400 [facility] Last Admin: 09/10/16 15:38 Dose: 0.25 mg Furosemide (Lasix) 40 mg IV 0800,1400 [facility] Last Admin: 09/11/16 08:34 Dose: 40 mg Linezolid (Zyvox 600mg/300ml D5w) 600 mg in 300 mls @ 200 mls/hr IVPB 0600, 1800 [facility] PRN Reason: Protocol Stop: 09/13/16 10:01 Last Admin: 09/11/16 05:00 Dose: 200 mls/hr Milrinone Lactate/Dextrose (Primacor 20mg/100ml D5w) 100 mls @ 3.73 mls/hr IV .Q24H [facility]; 0.2 MCG/KG/MIN PRN Reason: Protocol Last Admin: 09/10/16 21:03 Dose: 0.2 mcg/kg/min, 3.73 mls/hr Insulin Detemir (Levemir) 10 unit SC HS [facility] Last Admin: 09/10/16 22:59 Dose: 10 unit Insulin Human Regular (Humulin R Low) 0 units SC ACHS [facility] PRN Reason: Protocol Last Admin: 09/11/16 08:33 Dose: 1 units Levalbuterol HCl (Xopenex) 0.63 mg IH TIDRESP [facility] Last Admin: 09/11/16 08:07 Dose: 0.63 mg Levothyroxine Sodium (Synthroid) 125 mcg PO ACB [facility] Last Admin: 09/11/16 08:34 Dose: 125 mcg Lisinopril (Zestril) 2.5 mg PO DAILY [facility] Last Admin: 09/10/16 10:57 Dose: 2.5 mg Lorazepam (Ativan) 0.5 mg PO HS [facility] Last Admin: 09/10/16 21:05 Dose: 0.5 mg Magnesium Oxide (Mag-Ox) 400 mg PO TID [facility] Last Admin: 09/10/16 18:58 Dose: 400 mg Metformin HCl (Glucophage) 1,000 mg PO BID [facility] Last Admin: 09/10/16 18:58 Dose: 1,000 mg Metolazone (Zaroxolyn) 5 mg PO DAILY [facility] Last Admin: 09/10/16 10:57 Dose: 5 mg Multi-Ingredient Cream (Hydrocerin Cream) 0 ea TOP QID PRN PRN Reason: skin breakdown Last Admin: 09/02/16 10:24 Dose: 1 applic Mupirocin (Bactroban Ointment) 0 gm TOP BID [facility] Last Admin: 09/10/16 17:59 Dose: 1 applic Nystatin (Nystop Topical Powder) 0 gm TOP DAILY PRN PRN Reason: Rash Ondansetron HCl (Zofran Inj) 4 mg IVP Q4 PRN PRN Reason: Nausea/Vomiting Last Admin: 09/09/16 11:14 Dose: 4 mg Pantoprazole Sodium (Protonix Ec Tab) 20 mg PO ACB [facility] Last Admin: 09/11/16 08:34 Dose: 20 mg Potassium Chloride (K-Dur 20 Meq Er Tab) 20 meq PO BID [facility] Last Admin: 09/10/16 18:58 Dose: 20 meq Promethazine HCl/Codeine (Phenergan/Codeine Oral Syrup) 5 ml PO QID [facility] Last Admin: 09/10/16 21:19 Dose: 5 ml Propranolol HCl (Inderal) 10 mg PO TID [facility] Last Admin: 09/10/16 18:58 Dose: 10 mg Risperidone (Risperdal Tab) 0.5 mg PO 1000,1600 [facility] Last Admin: 09/10/16 18:58 Dose: 0.5 mg Risperidone (Risperdal Tab) 1 mg PO HS [facility] Last Admin: 09/10/16 21:05 Dose: 1 mg Simethicone (Mylicon Chew Tab) 80 mg PO QID PRN PRN Reason: Flatulence Ziprasidone (Geodon Inj) 10 mg IM Q4H PRN PRN Reason: Agitation - Labs Labs: 09/09/16 06:30 09/11/16 08:49 PT 13.6 Seconds (9.9-11.8) H 08/29/16 17:40 INR 1.26 (0.93-1.08) H 08/29/16 17:40 APTT 26.8 Seconds (23.7-30.8) 08/29/16 17:40 - Constitutional Appears: Non-toxic, No Acute Distress - Head Exam Head Exam: NORMAL INSPECTION - ENT Exam ENT Exam: Mucous Membranes Moist - Neck Exam Neck Exam: absent: Lymphadenopathy, Meningismus - Respiratory Exam Respiratory Exam: Decreased Breath Sounds - Cardiovascular Exam Cardiovascular Exam: +S1, +S2 - GI/Abdominal Exam GI & Abdominal Exam: Soft. absent: Tenderness - Extremities Exam Additional comments: both lower extremities with swelling but is improving Assessment and Plan - Assessment and Plan (Free Text) Plan: Assessment Lower extremity swelling, consider secondary to right-sided heart failure from chronic congestive heart failure, R/O cellulitis; no evidence of DVT; clinically improving right breast swelling, etiology to be determined Healthcare-associated pneumonia, right middle lobe, clinically improved history of bilateral healthcare-associated pneumonia in this patient chronic heart failure S/P acute cholecystitis, S/P laparoscopic cholecystectomy CAD with chronic CHF DM HTN history of migraines bipolar disorder Plan continue Zyvox day 6 and Bactroban ointment; repeat blood cx are negative - will complete a 7 day course of antibiotics Will continue to monitor clinical response
[2016-09-11] MEDS: Digoxin 250 mcg (0.25 mg) Tab PO SCH (13:47)
[2016-09-11] MEDS: Promethazine/Cod 6.25mg-10mg/5ml Syr UD PO SCH ×3 (13:49→21:21)
--- NOTE | 2016-09-11 14:25 | PN ---
DATE: 09/11/2016 The patient is in room 265, bed 2. REASON FOR CONSULTATION AND FOLLOWUP: Shortness of breath, increasing swelling of legs, bilateral pl eural effusion, decompensated congestive heart failure, acute on chronic systolic dysfunction, hypona tremia. HISTORY OF PRESENT ILLNESS: A 51-year-old female with past medical history significant for diabetes, hypertension, hyperlipidemia, congestive heart failure, bipolar disorder, hypothyroidism, mitral reg urgitation, tricuspid regurgitation, history of chemotherapy for lymphoma, nonischemic cardiomyopathy , status post cardiac catheterization a year ago, nonobstructive coronary disease. Admitted with swe lling of legs and shortness of breath, showing decompensated congestive heart failure. Also, patient showing severe hyponatremia. The patient was given tolvaptan and it showed improvement in sodium le irene. The patient's breathing is better, swelling of legs continues to improve. The patient denies a ny chest pain or palpitation. PHYSICAL EXAMINATION: VITAL SIGNS: Blood pressure 106/63, respirations 19, pulse 99, temperature 97.8. HEAD: Normocephalic. EYES: Pupils normal. Conjunctivae slightly pale. NECK: JVP low. Carotids equal. THORAX: AP diameter normal. LUNGS: Clear. CARDIOVASCULAR: S1 and S2, pansystolic murmur, no rub. ABDOMEN: Soft, no tenderness, no organomegaly. Bowel sounds normal clinically. EXTREMITIES: Edema legs gradually improving. LABORATORY DATA: WBC 10.8, hemoglobin 10.0, hematocrit 31.0, platelets 465. Showed sodium 126, pota ssium 4.1, BUN 21, creatinine 0.6, AST 43, ALT 46, total protein 7.1, albumin 3.8. DIAGNOSES: Hyponatremia, diabetes, hypertension, hyperlipidemia, bipolar disorder, cardiomyopathy, m itral regurgitation, tricuspid regurgitation, nonischemic cardiomyopathy secondary to chemotherapy fo r lymphoma, history of deep venous thrombosis of the right upper extremity, history of removal of Por t-A-Cath, history of tachycardia, on propranolol. PLAN: We will continue present therapy, propranolol 10 mg t.i.d., potassium 20 mEq p.o. b.i.d., digo sabi 0.25 daily, Lasix 40 mg IV b.i.d., insulin as ordered, levothyroxine 125 mcg p.o. daily. The pat ient on milrinone drip, Zaroxolyn 5 mg daily, lisinopril 2.5 mg daily. We will repeat chest x-ray to see improvement of the pleural effusion and we will follow with you. Mau Rivera MD cc: [phone] TT: 09/11/2016 14:23:59 Confirmation # [id number] Dictation # [id number]
--- NOTE | 2016-09-11 15:17 | RAD ---
HISTORY: compare to see improvement of Pleural ffusyiiiiiii COMPARISON: No prior. TECHNIQUE: Chest PA and lateral FINDINGS: LUNGS: Right lower lobe infiltrate. PLEURA: Right pleural effusion. CARDIOVASCULAR: Normal. OSSEOUS STRUCTURES: No significant abnormalities. VISUALIZED UPPER ABDOMEN: Normal. OTHER FINDINGS: None. IMPRESSION: Right lower lobe infiltrate and effusion.
--- NOTE | 2016-09-11 17:00 | PN ---
DATE: 09/11/2016 REFERRING PHYSICIAN: Dr. Roman. SUBJECTIVE: She is out of bed to wheelchair for chest x-ray. The night was unremarkable. Fee ls better, mild cough. No chest pain. No nausea, no vomiting, no diarrhea. Still has some residual leg swelling. OBJECTIVE: GENERAL: In no acute distress. VITAL SIGNS: Temperature is 98, heart rate 99, respiratory rate is 20, blood pressure 106/63, pulse ox 96% on room air. HEENT: Moist mucous membranes. No ulcer or oral thrush noted. NECK: Supple. No JVD. LUNGS: Decreased breath sounds at the bases. HEART: S1 and S2. ABDOMEN: Soft, nontender. No organomegaly. EXTREMITIES: Still has residual edema. NEUROLOGIC: Awake, alert, follows simple commands. MEDICATIONS: She is on Mucomyst 20% 3 mL inhaled twice a day, Ativan 0.5 mg at bedtime, Cepacol loze nges q.12 hours p.r.n., Eliquis 5 mg twice a day, Geodon 10 mg IM q.4 hours p.r.n., metformin 1000 mg twice a day, insulin coverage, also on Inderal 10 mg 3 times a day, potassium 20 mEq twice a day, di goxin 0.25 mg daily, Lasix 40 mg twice a day, Levemir 10 units subQ at bedtime, mag oxide 400 mg 3 ti mes a day, Phenergan with codeine 5 mL q.i.d., Primacor IV drip, Protonix 20 mg daily, Risperdal 0.5 mg inhaled twice a day, also on Risperdal 1 mg at bedtime, Synthroid 125 mcg daily, Xopenex inhaled 3 times a day, Zaroxolyn 5 mg daily, Zestril 2.5 mg daily, Zofran on a p.r.n. basis and Zyvox 600 mg t wice a day. LABORATORY DATA: Reviewed. Sodium , potassium 4.1, chloride 84, bicarbonate 34, BUN 21, creati nine 0.6, glucose 171, calcium 9.3. AST 43, ALT 46, alkaline phosphatase is 151, albumin is 3.8. Ch est x-ray just got done, shows right lower lobe infiltrate and effusion, most likely is atelectasis w ith effusion. IMPRESSION AND PLAN: Cardiomyopathy with heart failure, sleep apnea syndrome, refused CPAP use, pleu ral effusion, schizophrenia, lymphoma, chronic obstructive lung disease, noncompliant with the medica tion and p.o. fluids, hyponatremic; Lasix has been decreased. Still having leg swelling and effusion . I will suggest adding some odium for a day or so. Follow up sodium. Continue fluid restriction. Continue Primacor. Follow up labs in the morning. Thank you and will follow with you. Mau More MD cc: [phone] TT: 09/11/2016 16:59:48 Confirmation # [id number] Dictation # [id number] dn
--- NOTE | 2016-09-11 21:06 | PN ---
DATE: 09/09/2016 The patient clinically stable. She has no new complaint. Still have ultrasound and mammogram result s pending. Currently on IV milrinone. Leg swelling seems improving, as well as redness. PHYSICAL EXAMINATION: VITAL SIGNS: On 09/09/2016 include the following: Her temperature is 98.4, heart rate 101, blood pr essure is 107/57, respiratory rate 20, saturation 95% on room air. HEAD AND NECK: Normal. No JVD. No thyromegaly. CHEST: Clear. Diminished breath sounds on right side. CARDIAC: First sound, second sound normal. ABDOMEN: Soft, obese, nontender. EXTREMITIES: Bilateral leg edema seems better, and diffuse leg redness, left more than right. LABORATORY DATA: White count 10.8, hemoglobin 10, hematocrit 31, platelets 465. Chemistry shows the following: Sodium 128, potassium 3.7, chloride 90, bicarbonate 30, BUN 19, creatinine 0.6. Liver f unction test is normal. Magnesium 1.4, alkaline phosphatase 147. Albumin and globulin are normal. IMPRESSION AND PLAN: 1. Acute systolic heart failure on top of chronic. Continue IV milrinone. Continue IV Lasix. The patient seems improving. 2. Cellulitis, both lower extremities, left more than right. Continue current IV antibiotic as per infectious disease consult. The patient seems improving. The patient got vancomycin and meropenem. Now we plan to switch it to Zyvox. 3. History of acute pulmonary embolism and acute deep vein thrombosis. The patient has been on Eliq uis; however, compliance is a big issue as outpatient. Continue Eliquis 5 mg b.i.d., renew it. 4. Schizophrenia. The patient getting Risperdal and Geodon injections p.r.n. Continue Ativan p.r.n . for agitations. 5. Chronic obstructive pulmonary disease, bilateral pleural effusion, right more than left. Continu e bronchodilators. Continue Mucomyst. Follow up with the sales executive insurance. 6. Diabetes type 2. Continue Levemir. Continue insulin coverage and oral hypoglycemic metformin an d Amaryl. The patient seems to be doing better. Richardson Roman MD cc: [phone] TT: 09/11/2016 21:05:18 Confirmation # [id number] Dictation # [id number] tn
--- NOTE | 2016-09-11 21:09 | PN ---
DATE: 09/11/2016 The patient is clinically stable. Her appetite is good. Bowel movement okay. Her leg swelling is d ecreased and redness is decreased. The patient seems clinically improved, still her ultrasound breas t and mammogram are still pending; however, that can be managed as outpatient. PHYSICAL EXAMINATION: VITAL SIGNS: Temperature 97.8, heart rate 93, blood pressure is 101/53, respiration 19, saturation 9 6% on room air. HEAD AND NECK: Normal. No JVD, no thyromegaly. CHEST: Clear, diminished breath sound on the right base. CARDIAC: First and second sounds are normal. ABDOMEN: Soft, obese, nontender. EXTREMITIES: There is bilateral leg edema improved and bilateral leg redness improved. LABORATORY DATA: Including chest x-ray shows right lower lobe infiltrates and laboratory-childress mignon lerma had a chemistry which shows sodium 130, potassium 3.7, chloride 88, bicarb 33, BUN 20, creatinine 0 .6, blood sugar 193. IMPRESSION AND PLAN: 1. Acute congestive heart failure on top of chronic systolic heart failure. The patient has low eje ction fractions by MUGA scan and echo. The patient has nonobstructive coronary artery disease, norah delcid had some metabolic cardiomyopathy due to radiation most likely or chemotherapy for lymphoma in past. Continue current therapy, IV milrinone, IV Lasix. 2. Bilateral leg cellulitis, right lower lobe pneumonia. We will continue IV antibiotics. The ervin ent currently on Zyvox. We will follow up with the cinder crane operator and ID consultants. 3. Schizophrenia. Continue risperidone, continue Geodon. 4. Hypomagnesemia, currently on magnesium. The patient seems stable. We will repeat her labs in morning. 5. Hypothyroidism. 6. Diabetes type 2. 7. Mild anemia, stable. Continue current therapy. Follow up clinically. Richardson Roman MD cc: [phone] TT: 09/11/2016 21:08:45 Confirmation # [id number] Dictation # [id number] mn
--- NOTE | 2016-09-11 21:14 | PN ---
DATE: 09/10/2016 The patient is stable, clinically. Has no chest pain. Her breathing is better. Less short of breat h and less cough. The patient currently on IV milrinone, IV Lasix. Ultrasound breast and mammogram have been done, still results are unavailable. PHYSICAL EXAMINATION: VITAL SIGNS: On 09/10/2016: Temperature 98.1, heart rate 102, blood pressure 103/54, respirations 2 0, saturating 95% on room air. HEAD AND NECK: Normal. No JVD. No thyromegaly. CHEST: Clear. There is diminished breath sound on the right more than left on the bases. CARDIAC: First sound, second sound normal. ABDOMEN: Soft, obese, nontender. EXTREMITIES: There is bilateral leg edema, which is decreased since day of admission, decreased redn ess. NEUROLOGIC: Normal. LABORATORY DATA: She had a sodium of 130, potassium 3.7, chloride 88, bicarbonate 33, BUN 20, creati nine 0.6, blood sugar 193, and the patient's magnesium 1.6. No CBC. IMPRESSION AND PLAN: 1. Acute systolic heart failure on top of chronic. The patient has low ejection fraction in the 30s . Continue IV Lasix. Continue IV milrinone. Follow up with the easement man. 2. Bilateral leg cellulitis, leg edema. Continue Lasix. Continue IV Zyvox. Follow up with the inf ectious disease consults. Continue Eliquis for treating deep vein thrombosis and pulmonary embolism. 3. Chronic anemia, thrombocytosis. The patient has a history of lymphoma, seems stable at this time . Continue Protonix. 4. Chronic obstructive pulmonary disease, bilateral pleural effusion, right more than left. Continu e inhaled bronchodilators. Continue Lasix. Follow up clinically. 5. Abnormal liver functions test, hepatitis. Probably is secondary to congestive heart failure. Fo llow up with Dr. Quigley. The patient clinically stable. The patient does have a history of deep v ein thrombosis, pulmonary embolism. Continue Eliquis. Seems stable. Continue current meds. 6. Hyponatremia, hypomagnesemia, electrolyte abnormalities. Will follow up with the general technician, Dylon Javier. 7. There is also diabetes. She is on Eliquis and coverage using insulin plus oral hypoglycemic metf ormin. Blood sugar runs within reasonable range 100s to 150. Continue current treatment. Richardson Roman MD cc: [phone] TT: 09/11/2016 21:13:07 Confirmation # [id number] Dictation # [id number] tn
[2016-09-11] MEDS: Benzocaine/Menthol (Cepacol) Lozenge MT PRN (21:22)
[2016-09-11] MEDS: Milrinone 20mg/100ml D5W 100 ML IV SCH (21:24)
[2016-09-11] MEDS: Insulin Detemir 100 units/ml Vial (Levemir) SC SCH (21:30)
[2016-09-12] MEDS: Linezolid 600 mg in D5W 300 ml 600 MG/300 ML BAG IVPB SCH ×2 (05:13→17:34)
[2016-09-12 07:05] LABS: BLOOD UREA NITROGEN 20 mg/dL (7-21); CALCIUM 9.3 mg/dL (8.4-10.5); CARBON DIOXIDE 32 mmol/L (21-33); CHLORIDE 88 mmol/L (98-107); GFR AFRICAN-AMERICAN > 60; GLUCOSE,RANDOM 132 mg/dL (70-110); POTASSIUM 3.8 mmol/L (3.6-5.0); SODIUM 130 mmol/L (132-148)
[2016-09-12] MEDS: Acetylcysteine 20% Inhal Soln (4ml) IH SCH ×2 (07:43→20:13)
[2016-09-12] MEDS: Levalbuterol 0.63 MG/3 ML Inhal Soln UD IH SCH ×3 (07:44→20:13)
[2016-09-12] MEDS: Insulin Reg-LOW-Coverage SC SCH ×4 (08:14→21:59)
--- NOTE | 2016-09-12 09:14 | CP.PCM.PN ---
Subjective - Date & Time of Evaluation Date of Evaluation: 09/12/16 Time of Evaluation: 08:00 - Subjective Subjective: Comfortable on a chair, no fevers overnight, still with swelling on the legs but is slowly decreasing. No pain in the legs. Objective - Vital Signs/Intake and Output Vital Signs (last 24 hours): Temp Pulse Resp BP Pulse Ox 98.7 F 101 H 20 104/54 L 97 09/12/16 05:54 09/12/16 05:54 09/12/16 05:54 09/12/16 05:54 09/12/16 05:54 Intake and Output: 09/12/16 09/12/16 06:59 18:59 Intake Total 1300 Output Total 1800 Balance -500 - Medications Medications: Current Medications Acetylcysteine (Acetylcysteine 20%) 3 ml IH BIDRESP [facility] Last Admin: 09/12/16 07:43 Dose: Not Given Apixaban (Eliquis) 5 mg PO BID [facility] PRN Reason: Protocol Last Admin: 09/11/16 18:05 Dose: 5 mg Benzocaine/Menthol (Cepacol Sore Throat) 1 mirna MT Q2H PRN PRN Reason: Sore Throat Last Admin: 09/11/16 21:22 Dose: 1 mirna Digoxin (Lanoxin) 0.25 mg PO 1400 [facility] Last Admin: 09/11/16 13:47 Dose: 0.25 mg Furosemide (Lasix) 40 mg IV 0800,1400 [facility] Last Admin: 09/11/16 13:50 Dose: 40 mg Linezolid (Zyvox 600mg/300ml D5w) 600 mg in 300 mls @ 200 mls/hr IVPB 0600, 1800 [facility] PRN Reason: Protocol Stop: 09/13/16 10:01 Last Admin: 09/12/16 05:13 Dose: 200 mls/hr Milrinone Lactate/Dextrose (Primacor 20mg/100ml D5w) 100 mls @ 3.73 mls/hr IV .Q24H [facility]; 0.2 MCG/KG/MIN PRN Reason: Protocol Last Admin: 09/11/16 21:24 Dose: 0.2 mcg/kg/min, 3.73 mls/hr Insulin Detemir (Levemir) 10 unit SC HS [facility] Last Admin: 09/11/16 21:30 Dose: 10 unit Insulin Human Regular (Humulin R Low) 0 units SC ACHS [facility] PRN Reason: Protocol Last Admin: 09/11/16 23:28 Dose: Not Given Levalbuterol HCl (Xopenex) 0.63 mg IH TIDRESP [facility] Last Admin: 09/12/16 07:44 Dose: 0.63 mg Levothyroxine Sodium (Synthroid) 125 mcg PO ACB [facility] Last Admin: 09/11/16 08:34 Dose: 125 mcg Lisinopril (Zestril) 2.5 mg PO DAILY [facility] Last Admin: 09/11/16 10:49 Dose: Not Given Lorazepam (Ativan) 0.5 mg PO HS [facility] Last Admin: 09/11/16 21:22 Dose: 0.5 mg Magnesium Oxide (Mag-Ox) 400 mg PO TID [facility] Last Admin: 09/11/16 18:05 Dose: 400 mg Metformin HCl (Glucophage) 1,000 mg PO BID [facility] Last Admin: 09/11/16 18:04 Dose: 1,000 mg Metolazone (Zaroxolyn) 5 mg PO DAILY [facility] Last Admin: 09/11/16 10:47 Dose: 5 mg Multi-Ingredient Cream (Hydrocerin Cream) 0 ea TOP QID PRN PRN Reason: skin breakdown Last Admin: 09/02/16 10:24 Dose: 1 applic Mupirocin (Bactroban Ointment) 0 gm TOP BID [facility] Last Admin: 09/11/16 10:47 Dose: 1 applic Nystatin (Nystop Topical Powder) 0 gm TOP DAILY PRN PRN Reason: Rash Ondansetron HCl (Zofran Inj) 4 mg IVP Q4 PRN PRN Reason: Nausea/Vomiting Last Admin: 09/11/16 21:21 Dose: 4 mg Pantoprazole Sodium (Protonix Ec Tab) 20 mg PO ACB [facility] Last Admin: 09/11/16 08:34 Dose: 20 mg Potassium Chloride (K-Dur 20 Meq Er Tab) 20 meq PO BID [facility] Last Admin: 09/11/16 18:04 Dose: 20 meq Promethazine HCl/Codeine (Phenergan/Codeine Oral Syrup) 5 ml PO QID [facility] Last Admin: 09/11/16 21:21 Dose: 5 ml Propranolol HCl (Inderal) 10 mg PO TID [facility] Last Admin: 09/11/16 18:06 Dose: Not Given Risperidone (Risperdal Tab) 0.5 mg PO 1000,1600 [facility] Last Admin: 09/11/16 18:05 Dose: 0.5 mg Risperidone (Risperdal Tab) 1 mg PO HS [facility] Last Admin: 09/11/16 21:23 Dose: 1 mg Simethicone (Mylicon Chew Tab) 80 mg PO QID PRN PRN Reason: Flatulence Last Admin: 09/11/16 21:21 Dose: 80 mg Sodium Chloride (Sodium Chloride Tab) 1 gm PO WM [facility] Last Admin: 09/11/16 18:05 Dose: 1 gm Ziprasidone (Geodon Inj) 10 mg IM Q4H PRN PRN Reason: Agitation - Labs Labs: 09/09/16 06:30 09/12/16 05:10 PT 13.6 Seconds (9.9-11.8) H 08/29/16 17:40 INR 1.26 (0.93-1.08) H 08/29/16 17:40 APTT 26.8 Seconds (23.7-30.8) 08/29/16 17:40 - Constitutional Appears: Non-toxic, No Acute Distress - Head Exam Head Exam: NORMAL INSPECTION - ENT Exam ENT Exam: Mucous Membranes Moist - Neck Exam Neck Exam: absent: Lymphadenopathy, Meningismus - Respiratory Exam Respiratory Exam: Decreased Breath Sounds - Cardiovascular Exam Cardiovascular Exam: +S1, +S2 - GI/Abdominal Exam GI & Abdominal Exam: Soft. absent: Tenderness - Extremities Exam Additional comments: bilateral lower extremity swelling which is slowly decreasing, erythema is also decreasing, no tenderness Assessment and Plan - Assessment and Plan (Free Text) Plan: Assessment Lower extremity swelling, consider secondary to right-sided heart failure from chronic congestive heart failure, R/O cellulitis; no evidence of DVT; clinically improving right breast swelling, etiology to be determined Healthcare-associated pneumonia, right middle lobe, clinically improved history of bilateral healthcare-associated pneumonia in this patient chronic heart failure S/P acute cholecystitis, S/P laparoscopic cholecystectomy CAD with chronic CHF DM HTN history of migraines bipolar disorder Plan continue Zyvox day 7 and Bactroban ointment; repeat blood cx are negative - will complete a 7 day course of antibiotics and will d/c antibiotics after today Will continue to follow clinically
[2016-09-12] MEDS: metOLazone 5 MG TAB PO SCH (10:30)
[2016-09-12] MEDS: Promethazine/Cod 6.25mg-10mg/5ml Syr UD PO SCH ×4 (10:30→22:00)
[2016-09-12] MEDS: Potassium Chloride 20 mEq ER Tab PO SCH ×2 (10:31→17:34)
[2016-09-12] MEDS: Magnesium Oxide 400 mg Tab UD PO SCH ×3 (10:35→17:34)
[2016-09-12] MEDS: Levothyroxine 125 MCG TAB PO SCH (10:35)
[2016-09-12] MEDS: Pantoprazole 20 mg EC Tab PO SCH (10:35)
[2016-09-12] MEDS ORDERED: Potassium Chloride 20 mEq ER Tab PO ONE (13:15)
--- NOTE | 2016-09-12 13:35 | PN ---
DATE: 09/12/2016 REASON FOR CONSULTATION AND FOLLOWUP: Shortness of breath, increased leg swelling, bilateral pleural effusion, decompensated congestive heart failure, acute on chronic, secondary to systolic dysfunctio n, hyponatremia. BRIEF CLINICAL HISTORY: This is a 51-year-old female with a past medical history significant for [place]on betes, hypertension, hyperlipidemia, congestive heart failure, bipolar disorder, hypothyroidism, mitr al regurgitation, tricuspid regurgitation, lymphoma, history of and status post chemotherapy, n onischemic cardiomyopathy, status post cardiac catheterization, nonobstructive coronary artery diseas e. Admitted with leg swelling and shortness of breath, decompensated congestive heart failure. Also , found to be hyponatremic. The patient is on diuretics and Primacor as well as Zaroxolyn. States t hat feels better. Leg swelling is going down. PHYSICAL EXAMINATION: VITAL SIGNS: Temperature afebrile, heart rate 90, blood pressure 97/61. HEENT: PERRLA. Extraocular muscles intact. NECK: Supple. No carotid bruits. No thyromegaly. CHEST: Clear to auscultation. HEART: S1, S2 regular. ABDOMEN: Soft. EXTREMITIES: Clubbing, cyanosis negative. BLOOD WORKUP: WBC 10.8, hemoglobin 10, hematocrit 31.0, platelet count 465. Chemistry shows sodium 130, potassium 3. , chloride 98, carbon dioxide 32, anion gap of 14, BUN 20, creatinine 0.5. IMPRESSION: Hyponatremia, decompensated congestive heart failure, acute on chronic, secondary to sys tolic dysfunction, mitral regurgitation, tricuspid regurgitation, nonischemic cardiomyopathy secondar y to chemotherapy for lymphoma, status post cardiac catheterization, nonobstructive coronary artery d isease, history of deep vein thrombosis right upper extremity, history of removal of Port-A-Cath, his tory of tachycardia on propranolol. RECOMMENDATION: Continue propranolol 3 times a day. Continue digoxin, continue Lasix, continu e levothyroxine for hypothyroidism, continue milrinone, continue Zaroxolyn, lisinopril and diuretics. Monitor electrolytes. Supplement potassium. Continue Eliquis for deep venous thrombosis. We will follow with you. Thank you, Dr. Roman, for providing us the opportunity in taking care of the patient. Will repeat t he lab in the morning. Mau Orozco MD cc: [id number] TT: 09/12/2016 13:33:56 Confirmation # [id number] Dictation # [id number] en
[2016-09-12] MEDS: Digoxin 250 mcg (0.25 mg) Tab PO SCH (13:44)
--- NOTE | 2016-09-12 14:15 | PN ---
DATE: 09/12/2016 SUBJECTIVE: The patient is seen sitting in chair. She is awake, she is alert, she is comfortable. PHYSICAL EXAMINATION: GENERAL: Middle aged lady, sitting in chair. VITAL SIGNS: Blood pressure 93/54, heart rate 96, respiratory rate 19, temperature 97.1. HEENT: Normocephalic, atraumatic. NECK: Supple, no JVD. LUNGS: Bilateral equal air entry, crackles right base. CARDIAC: S1, S2, regular rate and rhythm, no murmur, no rub. ABDOMEN: Obese, distended, soft, nontender, bowel sounds present. EXTREMITIES: 2+ pitting edema of the lower extremities. INTAKE AND OUTPUT: 1300/1800. LABORATORY DATA: Sodium 130, potassium 3.8, chloride 88, CO2 32, BUN 20, creatinine 0.5, glucose 132 , calcium 9.3. CURRENT MEDICATIONS: Eliquis, Glucophage, insulin, propranolol, Inderal, potassium 20 mEq b.i.d., di goxin, Lasix 40 IV q. 12, mag oxide, nystatin, promethazine, milrinone, Protonix, Risperdal, Synthroi d, Xopenex, Zaroxolyn 5, lisinopril 2.5, Zofran, Zyvox. ASSESSMENT: 1. Dilutional hyponatremia, mild, stable. 2. Congestive heart failure, anasarca. 3. Non-insulin dependent diabetes mellitus. 4. Pneumonia. 5. Bipolar disorder. PLAN: 1. Keep O's greater than I's. 2. Continue IV Lasix, milrinone. 3. Continue potassium supplementation. 4. Restrict p.o. fluids to 1500 mL per day. Shannan Javier MD cc: [id number] TT: 09/12/2016 14:14:39 Confirmation # [id number] Dictation # [id number] en
--- NOTE | 2016-09-12 18:10 | US ---
PROCEDURE: Ultrasound right breast HISTORY: Clinical history is that of right breast lump which currently the patient does not feel. COMPARISON: September 12, 2016. Diagnostic mammogram reported separately TECHNIQUE: Standard protocol for this study/examination. FINDINGS: Right breast: Cyst(s): None Breast mass: None Dilated ducts: None Parenchymal distortion: None Skin thickening or subcutaneous abnormalities: None Incidental finding(s): Dilated subcutaneous vessels of uncertain etiology and doubtful clinical significance. IMPRESSION: BIRADS 2 Benign findings. Recommendation: Continue annual screening mammography, as per ACR guidelines.
--- NOTE | 2016-09-12 19:32 | PN ---
DATE: 09/12/2016 REFERRING PHYSICIAN: Dr. Roman. SUBJECTIVE: She is sitting up in a chair, unremarkable night. No headache, no rhinitis, mild shortn ess of breath. No chest pain, no nausea, no vomiting. Decreased leg swelling. OBJECTIVE: GENERAL: No acute distress. VITAL SIGNS: Temperature is 98, heart rate is 97, respiratory rate is 20, blood pressure 99/65. HEENT: Moist mucous membrane. No ulcer or oral thrush noted. NECK: Supple. No JVD. LUNGS: Has decreased breath sounds at the bases. HEART: S1 and S2. ABDOMEN: Soft, nontender. No organomegaly. EXTREMITIES: There is trace edema. NEUROLOGIC: Awake, alert, follows simple command. MEDICATIONS: She is on Ativan 0.5 mg at bedtime, Cepacol lozenges q. 2 hours p.r.n., Eliquis 5 mg tw ice a day, metformin 1000 mg twice a day, insulin coverage, Inderal 10 mg 3 times a day (which is not given), potassium 20 mEq twice a day, digoxin 0.25 mg daily, Lasix 40 mg twice a day, Levemir 10 uni ts subQ at bedtime, mag oxide 400 mg 3 times a day, promethazine with codeine 5 mL 4 times a day, IV milrinone, Protonix 20 mg daily, Risperdal 0.5 mg twice a day and also Risperdal 1 mg at bedtime, sod ium chloride 1 gram with the meals, Synthroid 125 mcg daily, Xopenex 0.63 mg 3 times a day, Zaroxolyn 5 mg daily, Zestril 2.5 mg daily, Zofran on a p.r.n. basis, Zyvox 600 mg twice a day. LABORATORY DATA: Shows sodium 130, potassium 3.8, chloride 88, bicarbonate 32, BUN 20, creatinine 0. 5, glucose 132, calcium is 9.3. IMPRESSION AND PLAN: Cardiomyopathy with heart failure, sleep apnea syndrome, refuses CPAP at night, pleural effusion, schizophrenia, lymphoma, chronic obstructive lung disease, noncompliant with the m edication and followup. Refused to use CPAP. Pulmonary point of view, continue bronchodilator, diur etics, Primacor IV. I will discontinue sodium supplementation. [facility] Thank you and we will follow with you. Mau More MD cc: [id number] TT: 09/12/2016 19:31:20 Confirmation # [id number] Dictation # [id number] ln
[2016-09-12] MEDS: Insulin Detemir 100 units/ml Vial (Levemir) SC SCH (22:08)
[2016-09-13] MEDS: Milrinone 20mg/100ml D5W 100 ML IV SCH ×3 (01:18→20:52)
[2016-09-13] MEDS: Promethazine/Cod 6.25mg-10mg/5ml Syr UD PO SCH ×5 (01:47→22:25)
[2016-09-13 07:12] LABS: BLOOD UREA NITROGEN 18 mg/dL (7-21); CALCIUM 9.4 mg/dL (8.4-10.5); CARBON DIOXIDE 32 mmol/L (21-33); CHLORIDE 91 mmol/L (98-107); GFR AFRICAN-AMERICAN > 60; GLUCOSE,RANDOM 88 mg/dL (70-110); POTASSIUM 3.8 mmol/L (3.6-5.0); SODIUM 130 mmol/L (132-148)
--- NOTE | 2016-09-13 08:06 | PN ---
DATE: 09/12/2016 The patient seems to be doing better, decreased shortness of breath, decreased leg swelling. She is afebrile. No new complaints, PHYSICAL EXAMINATION: VITAL SIGNS: Temperature 98, heart rate 103, blood pressure is 99/65, respirations 20. HEAD AND NECK: Normal. No JVD, no thyromegaly. CHEST: Clear, diminished breath sound on the right base. CARDIAC: First sound, second sound normal. ABDOMEN: Soft, obese, nontender. EXTREMITIES: Mild edema, improved. NEUROLOGIC: Normal. LABORATORY: Sodium 130, potassium 3.8, chloride 88, bicarb 32, BUN 20, creatinine 0.5, blood sugar 1 32, calcium 9.3. IMPRESSION: 1. Acute systolic heart failure on top of chronic. Continue milrinone IV, Lasix, digoxin, ARETHA inhib itor, lisinopril. We will follow up clinically. 2. Cellulitis, improved. Continue Zyvox. 3. Right lower lobe pneumonia, infiltrates, currently stable. Continue current treatment. We will add chest percussions to help her. 4. Diabetes, hypothyroidism, history of lymphomas in the past years, more than 15 years ago. Liver enzyme abnormalities secondary to congestive heart failure, questionable history of liver mass at [facility]. We will consider further evaluation of this. 5. The patient has history of schizophrenia. Continue Risperdal. Continue Ativan. Follow up clini joaquin/ The patient has breast ultrasound which was benign findings and will continue followup screen ing. Richardson Roman MD cc: [phone] TT: 09/13/2016 08:05:29 Confirmation # [id number] Dictation # [id number] tn
[2016-09-13] MEDS: Levalbuterol 0.63 MG/3 ML Inhal Soln UD IH SCH ×3 (08:08→20:12)
[2016-09-13] MEDS: Acetylcysteine 20% Inhal Soln (4ml) IH SCH ×2 (08:09→20:12)
[2016-09-13] MEDS: Pantoprazole 20 mg EC Tab PO SCH (08:12)
[2016-09-13] MEDS: Levothyroxine 125 MCG TAB PO SCH (08:12)
[2016-09-13] MEDS: Insulin Reg-LOW-Coverage SC SCH ×4 (08:15→22:23)
[2016-09-13] MEDS: Potassium Chloride 20 mEq ER Tab PO SCH ×2 (09:28→17:17)
[2016-09-13] MEDS: Magnesium Oxide 400 mg Tab UD PO SCH ×3 (09:28→17:17)
[2016-09-13] MEDS: metOLazone 5 MG TAB PO SCH (09:29)
--- NOTE | 2016-09-13 10:45 | CP.PCM.PN ---
Subjective - Date & Time of Evaluation Date of Evaluation: 09/13/16 Time of Evaluation: 09:15 - Subjective Subjective: Leg swelling has improved, no fevers overnight, no cough or SOB. Objective - Vital Signs/Intake and Output Vital Signs (last 24 hours): Temp Pulse Resp BP Pulse Ox 97.9 F 106 H 19 95/52 L 96 09/13/16 06:00 09/13/16 06:00 09/13/16 06:00 09/13/16 06:00 09/13/16 06:00 Intake and Output: 09/13/16 09/13/16 06:59 18:59 Intake Total 489 Output Total 1400 Balance -911 - Medications Medications: Current Medications Acetylcysteine (Acetylcysteine 20%) 3 ml IH BIDRESP IZABELA Last Admin: 09/13/16 08:09 Dose: Not Given Apixaban (Eliquis) 5 mg PO BID IZABELA PRN Reason: Protocol Last Admin: 09/12/16 17:34 Dose: 5 mg Benzocaine/Menthol (Cepacol Sore Throat) 1 mirna MT Q2H PRN PRN Reason: Sore Throat Last Admin: 09/11/16 21:22 Dose: 1 mirna Digoxin (Lanoxin) 0.25 mg PO 1400 IZABELA Last Admin: 09/12/16 13:44 Dose: 0.25 mg Furosemide (Lasix) 40 mg IV 0800,1400 IZABELA Last Admin: 09/12/16 13:40 Dose: Not Given Milrinone Lactate/Dextrose (Primacor 20mg/100ml D5w) 100 mls @ 3.73 mls/hr IV .Q24H IZABELA; 0.2 MCG/KG/MIN PRN Reason: Protocol Last Admin: 09/13/16 05:36 Dose: 0.2 mcg/kg/min, 3.73 mls/hr Insulin Detemir (Levemir) 10 unit SC HS IZABELA Last Admin: 09/12/16 22:08 Dose: 10 unit Insulin Human Regular (Humulin R Low) 0 units SC ACHS IZABELA PRN Reason: Protocol Last Admin: 09/12/16 21:59 Dose: Not Given Levalbuterol HCl (Xopenex) 0.63 mg IH TIDRESP IZABELA Last Admin: 09/13/16 08:08 Dose: 0.63 mg Levothyroxine Sodium (Synthroid) 125 mcg PO ACB [facility] Last Admin: 09/12/16 10:35 Dose: 125 mcg Lisinopril (Zestril) 2.5 mg PO DAILY [facility] Last Admin: 09/12/16 10:30 Dose: 2.5 mg Lorazepam (Ativan) 0.5 mg PO [facility] Last Admin: 09/12/16 22:08 Dose: Not Given Magnesium Oxide (Mag-Ox) 400 mg PO TID [facility] Last Admin: 09/12/16 17:34 Dose: 400 mg Metformin HCl (Glucophage) 1,000 mg PO BID [facility] Last Admin: 09/12/16 17:33 Dose: 1,000 mg Metolazone (Zaroxolyn) 5 mg PO DAILY [facility] Last Admin: 09/12/16 10:30 Dose: 5 mg Multi-Ingredient Cream (Hydrocerin Cream) 0 ea TOP QID PRN PRN Reason: skin breakdown Last Admin: 09/02/16 10:24 Dose: 1 applic Mupirocin (Bactroban Ointment) 0 gm TOP BID [facility] Last Admin: 09/12/16 17:38 Dose: 1 applic Nystatin (Nystop Topical Powder) 0 gm TOP DAILY PRN PRN Reason: Rash Ondansetron HCl (Zofran Inj) 4 mg IVP Q4 PRN PRN Reason: Nausea/Vomiting Last Admin: 09/11/16 21:21 Dose: 4 mg Pantoprazole Sodium (Protonix Ec Tab) 20 mg PO ACB [facility] Last Admin: 09/12/16 10:35 Dose: 20 mg Potassium Chloride (K-Dur 20 Meq Er Tab) 20 meq PO BID [facility] Last Admin: 09/12/16 17:34 Dose: 20 meq Promethazine HCl/Codeine (Phenergan/Codeine Oral Syrup) 5 ml PO QID [facility] Last Admin: 09/13/16 01:47 Dose: 5 ml Propranolol HCl (Inderal) 10 mg PO TID [facility] Last Admin: 09/12/16 17:57 Dose: Not Given Risperidone (Risperdal Tab) 0.5 mg PO 1000,1600 [facility] Last Admin: 09/12/16 17:33 Dose: 0.5 mg Risperidone (Risperdal Tab) 1 mg PO [facility] Last Admin: 09/12/16 22:08 Dose: 1 mg Simethicone (Mylicon Chew Tab) 80 mg PO QID PRN PRN Reason: Flatulence Last Admin: 09/11/16 21:21 Dose: 80 mg - Labs Labs: 09/09/16 06:30 09/13/16 06:40 PT 13.6 Seconds (9.9-11.8) H 08/29/16 17:40 INR 1.26 (0.93-1.08) H 08/29/16 17:40 APTT 26.8 Seconds (23.7-30.8) 08/29/16 17:40 - Constitutional Appears: Non-toxic, No Acute Distress - Head Exam Head Exam: NORMAL INSPECTION - ENT Exam ENT Exam: Mucous Membranes Moist - Neck Exam Neck Exam: absent: Lymphadenopathy, Meningismus - Respiratory Exam Respiratory Exam: Decreased Breath Sounds - Cardiovascular Exam Cardiovascular Exam: +S1, +S2 - GI/Abdominal Exam GI & Abdominal Exam: Soft. absent: Tenderness - Extremities Exam Additional comments: improving bilateral leg swelling Assessment and Plan - Assessment and Plan (Free Text) Plan: Assessment Lower extremity swelling, consider secondary to right-sided heart failure from chronic congestive heart failure, R/O cellulitis; no evidence of DVT; clinically improved and S/P treatment right breast swelling, etiology to be determined Healthcare-associated pneumonia, right middle lobe, clinically improved history of bilateral healthcare-associated pneumonia in this patient chronic heart failure S/P acute cholecystitis, S/P laparoscopic cholecystectomy CAD with chronic CHF DM HTN history of migraines bipolar disorder Plan S/P treatment Zyvox; will continue to monitor the patient off antibiotics since she is at risk for nosocomial infections
--- NOTE | 2016-09-13 10:51 | PN ---
DATE: 09/13/2016 REASON FOR CONSULTATION AND FOLLOWUP: Shortness of breath, increased leg swelling, decompensated con gestive heart failure, acute on chronic systolic dysfunction. BRIEF CLINICAL HISTORY: A 51-year-old female with past medical history significant for diabetes, hyp ertension, hyperlipidemia, congestive heart failure, bipolar depression, hypothyroidism, mitral regur gitation, tricuspid regurgitation, status post chemotherapy for lymphoma, admitted with decompensated congestive heart failure. The patient on diuretics and Primacor. Leg swelling improved. Overall, patient's symptomatology is improved. PHYSICAL EXAMINATION: VITAL SIGNS: Temperature afebrile, heart rate 106, blood pressure 98/46. HEENT: PERRLA. Extraocular muscles intact. NECK: Supple. No carotid bruits. No thyromegaly. CHEST: Clear to auscultation. HEART: S1, S2 regular. ABDOMEN: Soft. EXTREMITIES: Clubbing and cyanosis negative. BLOOD WORKUP: As follows: WBC 10.8, hemoglobin 10, hematocrit 31.0, platelet count 465. Chemistry shows sodium 130, potassium , chloride 91, carbon dioxide 32, anion gap of 11, BUN 18, creatinin e 0.5. IMPRESSION: Acute decompensated congestive heart failure, acute on chronic systolic dysfunction, jodi ral regurgitation, tricuspid regurgitation, hyponatremia, sinus tachycardia on propranolol, status po st chemotherapy, nonobstructive coronary artery disease, status post cardiac catheterization, lymphom a, cardiomyopathy secondary to nonischemic, secondary to chemotherapy, secondary to lipoma, status po st removal of Port-A-Cath, bipolar depression. RECOMMENDATION: Continue diuretics, continue to supplement potassium and monitor electrolytes. Cont inue Primacor for probably the next 24-48 hours, while the patient becomes more euvolemic. Continue digoxin, continue propranolol. We will follow with you. Monitor electrolytes. Will repeat the labs in the morning. Will give an extra dose of in addition to 20 b.i.d. to supplement ongoing loss as well as low potassium. Thank you, Dr. Roman, for providing the opportunity in taking care of the patient. Mau Orozco MD cc: [id number] TT: 09/13/2016 10:51:11 Confirmation # [id number] Dictation # [id number] rn
--- NOTE | 2016-09-13 12:46 | PN ---
DATE: 09/13/2016 The patient is a 51-year-old female currently being treated for multiple medical problems including a cutely decompensated congestive heart failure, multiple valvular heart disease, hyponatremia, nonobst ructive coronary artery disease, lymphoma and she has a history of schizophrenia. The patient's [facility] mental status reveals that she is awake, alert, conversive, coherent. Her affect is somewhat con stricted and appropriate eye contact somewhat impaired. She is somewhat anxious. She denies halluci nations or paranoia. The patient is somewhat guarded and suspicious. Otherwise cooperating with car e. She is oriented x 3, is aware in a rudimentary way of her medical problems. CURRENT MEDICATIONS: Include acetylcysteine, Ativan 0.5 mg at bedtime, Bactroban ointment, Eliquis, Glucophage, Humulin insulin, Inderal, K-Dur, Lanoxin, Lasix, Levemir, mag ox, Primacor, Protonix. LABORATORY DATA: White count 10,800, hemoglobin is 10.0, basic metabolic profile reveals a sodium of 130, potassium 3.8, chloride 91, CO2 32, anion gap 11, BUN 18, creatinine 0.5. The rest of paramete rs are normal. Blood sugar is 92. VITAL SIGNS: Blood pressure 98/46, pulse 104, respiratory rate is 90, O2 saturation 96% on room air. IMPRESSION: Chronic schizophrenia in partial remission, she has acute congestive heart failure. She has a history of cardiomyopathy, has a history of lymphoma, history of nonobstructive coronary arter y disease, and hyponatremia. PLAN: Continue Risperdal 0.5 mg b.i.d. and lorazepam 0.5 mg at bedtime. We will continue to monitor mental status. Louie Roach MD cc: [phone] TT: 09/13/2016 12:45:31 Confirmation # [id number] Dictation # [id number] jose
[2016-09-13] MEDS ORDERED: Potassium Chloride 20 mEq ER Tab PO ONE (13:00)
[2016-09-13] MEDS: Digoxin 250 mcg (0.25 mg) Tab PO SCH (13:54)
--- NOTE | 2016-09-13 16:24 | PN ---
DATE: 09/13/2016 SUBJECTIVE: The patient is once again seen in telemetry, sitting in a chair. She remains on IV Prim acor. She remains on IV diuretic therapy and oral diuretic therapy. Her lower extremity edema has i mproved. Her weight today was 135 pounds, which makes little sense to me as she has had significant urine output. MEDICATIONS: Medication list reviewed. The patient is currently on acetylcysteine, Ativan, Bactroba n, Cepacol sore throat lozenges, Eliquis, Glucophage, insulin, Hydrocerin, Inderal, potassium tablets , Lanoxin, IV Lasix, Levemir, magnesium oxide, simethicone, nystatin, promethazine with codeine, Prim acor, Protonix, Risperdal, Levoxyl, Xopenex, Zaroxolyn, Zestril, Zofran p.r.n. OBJECTIVE: INTAKE AND OUTPUT: Intake 1689, output 3200. VITAL SIGNS: Blood pressure 92/56, heart rate 95, respiratory rate is 20, with a temperature of 98.3 . HEENT: Normocephalic, atraumatic. Conjunctivae are pale. Sclerae are nonicteric. NECK: Supple, no neck vein distention. CHEST: Clear to auscultation and percussion with slight decreased breath sounds at the bases. No ra les, no rhonchi, no wheezing. CARDIOVASCULAR: Shows a normal S1, S2. MR/TR. No S3, no S4, no rub. ABDOMEN: Soft, nondistended. Bowel sounds normal. No rebound, no guarding, no masses. EXTREMITIES: Show trace to 1+ pitting edema, which is improved from my last examination 1 week ago. No cyanosis or clubbing. Diminished lower extremity pulses bilaterally. LABORATORY DATA AND IMAGING: No recent CBC. Last CBC dates back to 09/09/2016. White blood cell co unt 10.8; hemoglobin 10; platelet count is 465,000. Chemistries today show sodium of 130, which is s table. Potassium 3.8, carbon dioxide 32, with a chloride of 91, BUN 18, with a creatinine of 0.5. G lucose is 88 with a calcium of 9.4. Magnesium level from 3 days ago was 1.6. Phosphorus level from 2 days ago was 4.1. ASSESSMENT: 1. Dilutional hyponatremia in the setting of hypervolemia secondary to cardiomyopathy. The patient' s sodium is stable in the 130 range despite taking double diuretic therapy and aggressive diuresis. The patient will continue inotropic support. 2. Resolving lower extremity cellulitis and possible right lower lobe pneumonia. The patient has co mpleted a course of antibiotic therapy. 3. History of borderline to mild hypomagnesemia. The patient will continue magnesium supplements. P.r.n. IV magnesium rider. 4. History of chronic obstructive pulmonary disease, currently stable. 5. History of severe cardiomyopathy with valvular heart disease, mitral regurgitation/tricuspid regu rgitation. The patient is stable, being followed by cardiology. Remains on inotropic therapy. 6. History of deep venous thrombosis, pulmonary embolism. The patient remains on chronic anticoagul ation with Eliquis. 7. History of [id number]-mjvrolbks diabetes mellitus. The patient is both on long-acting and short -acting insulin. Her sugars appear to be stable. She is also on metformin therapy. 8. History of schizophrenia and bipolar disorder. Currently stable on medical therapy. 9. History of anemia. Hemoglobin has been stable in the 10-11 range. PLAN: 1. The patient is stable from a renal standpoint. When patient is ready for discharge, she may be t ransitioned over to oral diuretic therapy with combination of Lasix and Zaroxolyn therapy. It is my impression that she will likely need to receive Primacor upon discharge home as per cardiology notes. 2. While in the hospital, continue IV Lasix and Zaroxolyn therapy. 3. Continue negative fluid balance. 4. Try and avoid restarting tolvaptan unless her sodium significantly drops below 130. 5. Check her magnesium and phosphorus levels. Continue magnesium supplements. 6. Continue to monitor patient on telemetry while an inpatient. Ej Aguirre MD cc: [phone] TT: 09/13/2016 16:23:59 Confirmation # [id number] Dictation # [id number] ladonna
--- NOTE | 2016-09-13 16:44 | PN ---
DATE: 09/13/2016 REFERRING PHYSICIAN: Dr. Roman. SUBJECTIVE: She is out of bed to chair. Night was unremarkable. Feels better. Mild rhinitis. No cough. Short of breath with exertion. No nausea, no vomiting, no diarrhea. Decreased leg swelling. OBJECTIVE: GENERAL: No acute distress. VITAL SIGNS: Temperature is 98, heart rate is 95, respiratory rate is 20, blood pressure 92/56. HEENT: Moist mucous membrane. Crowded airway. Mallampati score is 4. NECK: Supple. No JVD. LUNGS: Have decreased breath sounds at the bases. HEART: S1, S2. ABDOMEN: Soft, nontender. No organomegaly. EXTREMITIES: Decreased edema. NEUROLOGIC: Awake, alert, follows simple command. MEDICATIONS: She is on Mucomyst inhaled twice a day, Ativan 0.5 mg at bedtime, Cepacol lozenges q. 2 hours p.r.n., Eliquis 5 mg twice a day, metformin 1000 mg twice a day, Inderal 10 mg 3 times a day, potassium 20 mEq twice a day, digoxin 0.25 mg daily, Lasix 40 mg twice a day, Levemir 10 units subQ a t bedtime, mag oxide 400 mg 3 times a day, Phenergan with codeine 5 mL q.i.d., Primacor IV drip, Prot leigha 20 mg ACB, Risperdal 0.5 mg q. 12 hours, Risperdal 1 mg at bedtime, Synthroid 125 mcg ACB, Xopen ex inhaled q. 8 hours, Zaroxolyn 5 mg daily, Zestril 2.5 mg daily, Zofran 4 mg q. 4 hours p.r.n. LABORATORY DATA: Reviewed. Sodium 130, potassium 3.8, chloride 91, bicarbonate 32, BUN 18, creatini ne 0.5, glucose 274, calcium is 9.4. MICROBIOLOGY: Blood culture has been negative. Had a breast ultrasound done yesterday which reporte d as annual screening, continue. IMPRESSION AND PLAN: Cardiomyopathy with heart failure, sleep apnea syndrome, refusing to use CPAP, pleural effusion, schizophrenia, lymphoma, chronic obstructive lung disease, noncompliance with the m edication. Pulmonary point of view, she is doing okay. Continue diuretics. Control p.o. fluid inta ke. Gastric prophylaxis. Cardiology followup. On anticoagulation. Thank you, and will follow with you. Mau More MD cc: [phone] TT: 09/13/2016 16:43:36 Confirmation # [id number] Dictation # [id number] mn
[2016-09-13] MEDS: Hydrocerin(120 gm) TOP PRN (17:13)
[2016-09-13] MEDS: Insulin Detemir 100 units/ml Vial (Levemir) SC SCH (22:22)
[2016-09-14] MEDS: Insulin Reg-LOW-Coverage SC SCH ×4 (07:30→21:49)
[2016-09-14] MEDS: Levothyroxine 125 MCG TAB PO SCH (08:01)
[2016-09-14] MEDS: Pantoprazole 20 mg EC Tab PO SCH (08:01)
[2016-09-14] MEDS: Levalbuterol 0.63 MG/3 ML Inhal Soln UD IH SCH ×3 (08:07→20:00)
[2016-09-14] MEDS: Acetylcysteine 20% Inhal Soln (4ml) IH SCH ×2 (08:09→20:00)
[2016-09-14] MEDS: Potassium Chloride 20 mEq ER Tab PO SCH ×2 (09:49→18:19)
[2016-09-14] MEDS: Magnesium Oxide 400 mg Tab UD PO SCH ×3 (09:50→18:17)
[2016-09-14] MEDS: metOLazone 5 MG TAB PO SCH (09:51)
[2016-09-14] MEDS: Promethazine/Cod 6.25mg-10mg/5ml Syr UD PO SCH ×5 (09:51→21:39)
--- NOTE | 2016-09-14 11:05 | CP.PCM.PN ---
Subjective - Date & Time of Evaluation Date of Evaluation: 09/14/16 Time of Evaluation: 08:55 - Subjective Subjective: Comfortable, afebrile, not in distress. Objective - Vital Signs/Intake and Output Vital Signs (last 24 hours): Temp Pulse Resp BP Pulse Ox 98.8 F 102 H 20 110/67 96 09/14/16 06:00 09/14/16 06:00 09/14/16 06:00 09/14/16 08:01 09/14/16 06:00 Intake and Output: 09/14/16 09/14/16 06:59 18:59 Intake Total 404 Output Total 550 Balance -146 - Medications Medications: Current Medications Acetylcysteine (Acetylcysteine 20%) 3 ml IH BIDRESP IZABELA Last Admin: 09/14/16 08:09 Dose: Not Given Apixaban (Eliquis) 5 mg PO BID IZABELA PRN Reason: Protocol Last Admin: 09/13/16 17:21 Dose: 5 mg Benzocaine/Menthol (Cepacol Sore Throat) 1 mirna MT Q2H PRN PRN Reason: Sore Throat Last Admin: 09/11/16 21:22 Dose: 1 mirna Digoxin (Lanoxin) 0.25 mg PO 1400 IZABELA Last Admin: 09/13/16 13:54 Dose: 0.25 mg Furosemide (Lasix) 40 mg IV 0800,1400 IZABELA Last Admin: 09/14/16 08:01 Dose: 40 mg Milrinone Lactate/Dextrose (Primacor 20mg/100ml D5w) 100 mls @ 3.73 mls/hr IV .Q24H IZABELA; 0.2 MCG/KG/MIN PRN Reason: Protocol Last Admin: 09/13/16 20:52 Dose: Not Given Insulin Detemir (Levemir) 10 unit SC HS IZABELA Last Admin: 09/13/16 22:22 Dose: 10 unit Insulin Human Regular (Humulin R Low) 0 units SC ACHS IZABELA PRN Reason: Protocol Last Admin: 09/13/16 22:23 Dose: Not Given Levalbuterol HCl (Xopenex) 0.63 mg IH TIDRESP IZABELA Last Admin: 09/14/16 08:07 Dose: 0.63 mg Lisinopril (Zestril) 2.5 mg PO DAILY IZABELA Last Admin: 09/13/16 09:27 Dose: 2.5 mg Lorazepam (Ativan) 0.5 mg PO HS [facility] Last Admin: 09/13/16 22:22 Dose: 0.5 mg Magnesium Oxide (Mag-Ox) 400 mg PO TID [facility] Last Admin: 09/13/16 17:17 Dose: 400 mg Metolazone (Zaroxolyn) 5 mg PO DAILY [facility] Last Admin: 09/13/16 09:29 Dose: 5 mg Multi-Ingredient Cream (Hydrocerin Cream) 0 ea TOP QID PRN PRN Reason: skin breakdown Last Admin: 09/13/16 17:13 Dose: 1 applic Mupirocin (Bactroban Ointment) 0 gm TOP BID [facility] Last Admin: 09/13/16 17:13 Dose: 1 applic Nystatin (Nystop Topical Powder) 0 gm TOP DAILY PRN PRN Reason: Rash Pantoprazole Sodium (Protonix Ec Tab) 20 mg PO ACB [facility] Last Admin: 09/14/16 08:01 Dose: 20 mg Potassium Chloride (K-Dur 20 Meq Er Tab) 20 meq PO BID [facility] Last Admin: 09/13/16 17:17 Dose: 20 meq Promethazine HCl/Codeine (Phenergan/Codeine Oral Syrup) 5 ml PO QID [facility] Last Admin: 09/13/16 22:25 Dose: 5 ml Propranolol HCl (Inderal) 10 mg PO TID [facility] Last Admin: 09/13/16 17:14 Dose: 10 mg Risperidone (Risperdal Tab) 0.5 mg PO 1000,1600 [facility] Last Admin: 09/13/16 17:16 Dose: 0.5 mg Risperidone (Risperdal Tab) 1 mg PO HS [facility] Last Admin: 09/13/16 22:21 Dose: 1 mg - Labs Labs: 09/09/16 06:30 09/13/16 06:40 PT 13.6 Seconds (9.9-11.8) H 08/29/16 17:40 INR 1.26 (0.93-1.08) H 08/29/16 17:40 APTT 26.8 Seconds (23.7-30.8) 08/29/16 17:40 - Constitutional Appears: Non-toxic, No Acute Distress - Head Exam Head Exam: NORMAL INSPECTION - Neck Exam Neck Exam: absent: Meningismus - Respiratory Exam Respiratory Exam: Decreased Breath Sounds - Cardiovascular Exam Cardiovascular Exam: +S1, +S2 - GI/Abdominal Exam GI & Abdominal Exam: Soft. absent: Tenderness - Extremities Exam Additional comments: decreasing lower extremity edema Assessment and Plan - Assessment and Plan (Free Text) Plan: Assessment Lower extremity swelling, consider secondary to right-sided heart failure from chronic congestive heart failure, R/O cellulitis; no evidence of DVT; clinically improved and S/P treatment right breast swelling, etiology to be determined Healthcare-associated pneumonia, right middle lobe, clinically improved history of bilateral healthcare-associated pneumonia in this patient chronic heart failure S/P acute cholecystitis, S/P laparoscopic cholecystectomy CAD with chronic CHF DM HTN history of migraines bipolar disorder Plan S/P treatment Zyvox; will continue to monitor the patient off antibiotics since she is at risk for hospital-acquired infections
[2016-09-14 11:07] LABS: HEMATOCRIT 34.9 % (36.0-48.0); MEAN CELL VOLUME 76.9 fL (80.0-105.0); MEAN CORPUSCULAR HEMOGLOBIN 24.2 pg (25.0-35.0); MEAN CORPUSCULAR HGB CONC 31.5 g/dl (31.0-37.0); MEAN PLATELET VOLUME 9.2 fl (7.0-11.0); RED CELL DISTRIBUTION WIDTH 19.3 % (11.5-14.5); WHITE BLOOD COUNT 9.5 10^3/ul (4.5-11.0)
[2016-09-14 11:41] LABS: BLOOD UREA NITROGEN 21 mg/dL (7-21); CALCIUM 9.8 mg/dL (8.4-10.5); CARBON DIOXIDE 33 mmol/L (21-33); CHLORIDE 89 mmol/L (98-107); GFR AFRICAN-AMERICAN > 60; GLUCOSE,RANDOM 289 mg/dL (70-110); MAGNESIUM 1.3 mg/dL (1.7-2.2); PHOSPHOROUS 3.8 mg/dL (2.5-4.5); POTASSIUM 4.5 mmol/L (3.6-5.0); SODIUM 129 mmol/L (132-148)
[2016-09-14] MEDS ORDERED: Magnesium Sulfate 1 GM in Dextrose 5% In Water 100 ML IV ONE (13:51)
--- NOTE | 2016-09-14 14:23 | PN ---
DATE: 09/14/2016 SUBJECTIVE: The patient is seen sitting in chair. She is awake. She is alert. She is comfortable. PHYSICAL EXAMINATION: GENERAL: Middle aged lady sitting in chair. VITAL SIGNS: Blood pressure 95/61, heart rate 100, respiratory rate 16, temperature 98. HEENT: Normocephalic, atraumatic. NECK: Supple, no JVD. LUNGS: Bilateral equal air entry, no rales. CARDIAC: S1, S2, regular rate and rhythm, no murmur, no rub. ABDOMEN: Distended, soft, nontender, bowel sounds present. EXTREMITIES: 2+ pitting edema of the lower extremities. INTAKE AND OUTPUT: 1484/1715. LABORATORY DATA: WBC 9.5, hemoglobin 11, hematocrit 35, platelets 468. Sodium 129, potassium 4.5, c hloride 89, CO2 33, BUN 21, creatinine 0.6, glucose 289, calcium 9.8, phosphorus 3.8, magnesium 1.3. CURRENT MEDICATIONS: Ativan, Bactroban, benzocaine, Eliquis, Humulin, potassium 20 mEq b.i.d., digox in, Lasix 40 IV q. 12, mag oxide 400 t.i.d., promethazine, milrinone, Protonix, Risperdal, Xopenex, Z aroxolyn 5 mg daily. ASSESSMENT: 1. Dilutional hyponatremia. 2. Congestive heart failure, cardiomyopathy, volume overload. 3. Hypomagnesemia. 4. Chronic obstructive pulmonary disease. 5. Non-insulin dependent diabetes mellitus. 6. Right lower lobe pneumonia. 7. Bipolar disorder. PLAN: 1. Replace magnesium IV. 2. Continue Lasix and Zaroxolyn. 3. Continue Primacor. 4. Keep O's greater than I's. 5. Monitor fingersticks. 6. Monitor electrolytes. Shannan Javier MD cc: [id number] TT: 09/14/2016 14:22:35 Confirmation # [id number] Dictation # [id number] jose
--- NOTE | 2016-09-14 15:11 | PN ---
DATE: 09/14/2016 REFERRING PHYSICIAN: Dr. Roman. SUBJECTIVE: She is lying in the bed, head at 45 degrees, comfortable. No cough. Short of breath wi th exertion. No nausea, no vomiting, no diarrhea. Decreased leg swelling. OBJECTIVE: GENERAL: No acute distress. VITAL SIGNS: Temp is 98, heart rate is 100, respiratory rate is 16, blood pressure 95/61. HEENT: Moist mucous membranes. No ulcer or oral thrush noted. NECK: Supple. No JVD. LUNGS: Decreased breath sounds at the bases. HEART: S1, S2. ABDOMEN: Soft, nontender. No organomegaly. EXTREMITIES: Trace edema. NEUROLOGIC: Awake, alert, follows simple commands. MEDICATIONS: She is on Atrovent 0.5 mg at bedtime, Cepacol lozenges q. 12 hours p.r.n., Eliquis 5 m g twice a day, insulin coverage, potassium 20 mEq twice a day, Lasix 40 mg twice a day, mag oxide 400 mg 3 times a day, magnesium 1 gram IV been given, Phenergan with codeine 5 mL q.i.d., Primacor IV dr schultz, Protonix 40 mg daily, Risperdal 0.5 mg twice a day, also Risperdal 1 mg at bedtime, Xopenex 0.63 three times a day, Zaroxolyn 5 mg daily. LABORATORY DATA: Shows hemoglobin 11.0, hematocrit 34.9, WBC 9.5, platelet is 468. Sodium 129, pota ssium 4.5, chloride 89, bicarbonate 33, BUN 21, creatinine 0.6, glucose 289, calcium 9.8, phosphorus 3.8, magnesium is 1.3 which is being replaced. IMPRESSION AND PLAN: Cardiomyopathy with heart failure, sleep apnea syndrome, does not use CPAP, ple ural effusion, schizophrenia, lymphoma, chronic obstructive lung disease. Pulmonary point of view, s he is doing okay. PRN bronchodilator. Sleep apnea precaution. Gastric prophylaxis. Anticoagulatio n. 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 Thank you, and will follow with you. Mau More MD cc: [phone] TT: 09/14/2016 15:10:56 Confirmation # [id number] Dictation # [id number] mn
[2016-09-14] MEDS: Digoxin 250 mcg (0.25 mg) Tab PO SCH (15:23)
[2016-09-14 15:33] VITALS: PULSE 112
[2016-09-14] MEDS: Milrinone 20mg/100ml D5W 100 ML IV SCH ×2 (15:35→20:41)
--- NOTE | 2016-09-14 17:58 | PN ---
DATE: 09/14/2016 REASON FOR CONSULTATION AND FOLLOWUP: Shortness of breath, increased leg swelling, decompensated con gestive heart failure, [id number] systolic dysfunction. The patient feels better. Leg swelling goes down. Denies any chest pain, shortness of breath or any palpitations. PHYSICAL EXAMINATION: VITAL SIGNS: Temperature afebrile, heart rate 100, blood pressure 100/60. HEENT: PERRLA. Extraocular muscles intact. NECK: Supple. No carotid bruits. No thyromegaly. CHEST: Clear to auscultation. HEART: S1, S2 regular. ABDOMEN: Soft. EXTREMITIES: Clubbing and cyanosis negative, 1+ pedal edema. LABORATORY DATA: Blood workup as follows: WBC 9.5, hemoglobin 11, hematocrit 34.9, platelet count 4 68. Chemistry shows sodium 129, potassium , chloride 89, carbon dioxide 33, anion gap of , BUN 21, creatinine 0.9. IMPRESSION: Decompensated congestive heart failure, [id number] secondary to systolic dysfuncti on, history of lymphoma, mitral and tricuspid regurgitation, nonischemic cardiomyopathy, status post cardiac catheterization, removal of Port-A-Cath, history of right brachial vein deep venous thr ombosis. RECOMMENDATION: Continue diuretics. Will supplement. We will discontinue Primacor by tomorrow. Co ntinue Lasix for possibly a day or 2. Will look for discharge planning probably over the weekend. W ill follow with you. Thank you, , for providing me the opportunity in taking care of this patient. Mau Orozco MD cc: [id number] TT: 09/14/2016 17:57:23 Confirmation # [id number] Dictation # [id number] ladonna
[2016-09-14 18:38] VITALS: RESP 20
[2016-09-14] MEDS: Insulin Detemir 100 units/ml Vial (Levemir) SC SCH (21:38)
[2016-09-15 06:21] VITALS: O2SAT 96
[2016-09-15] MEDS ORDERED: Levothyroxine 125 MCG TAB PO SCH (07:30)
--- NOTE | 2016-09-15 07:47 | PN ---
DATE: 09/13/2016 The patient clinically stable. No chest pain, no short of breath. She is feeling better, less swell ing and less short of breath. PHYSICAL EXAMINATION: VITAL SIGNS: Her temperature is 98.8, heart rate 100, blood pressure 106/61, respirations 20. HEAD AND NECK: Normal. No JVD, no thyromegaly. CHEST: Clear, good air entry, diminished breath sounds on the right side. CARDIAC: First sound, second sound normal. ABDOMEN: Soft, obese, nontender. EXTREMITIES: Mild edema, improved. NEUROLOGIC: Normal. The patient had laboratory studies. They are still pending. Labs ordered for tomorrow, but she has blood sugar in the range of 140, 150 range. Her chemistry shows sodium 130, potassium 3.8, chloride 91, bicarb 32, BUN 18, creatinine 0.5, blood sugar 88, calcium 9.4. IMPRESSION: 1. Acute systolic heart failure on top of chronic. The patient is still on IV milrinone. Continue current therapy as per cardiology. She getting beta melissa Coreg ____ seems doing well with Lasix. We will continue current treatment. Possibility of discharge. Needs IV milrinone at home as contin uous infusion. That will be addressed with Dr. Orozco. 2. Chronic obstructive pulmonary disease, bilateral pleural effusion, right more than left, chronic obstructive pulmonary disease. We will continue inhaled bronchodilators. 3. Chronic abnormal liver function tests, secondary to ____ cardiomegaly. The patient also has ____ . Discuss with Dr. Quigley for further evaluation, maybe as outpatient. [facility]. 4. Diabetes. Continue insulin, Lantus or Levemir and ____ and continue metformin. Seems doing okay . Blood sugar is ____ 150s. 5. Bilateral leg cellulitis, pneumonia. Seems doing better. Continue IV antibiotic, Zyvox. 6. Breast pain, questionable mass. The patient had ultrasound, which is negative. She may need a m ammogram as outpatient. At this time, continue current therapy, follow up clinically. Richardson Roman MD cc: [phone] TT: 09/14/2016 17:27:23 Confirmation # [id number] Dictation # [id number] en 09/15/2016 06:46:42
[2016-09-15 07:52] LABS: HEMATOCRIT 33.9 % (36.0-48.0); MEAN CELL VOLUME 76.2 fL (80.0-105.0); MEAN CORPUSCULAR HEMOGLOBIN 24.5 pg (25.0-35.0); MEAN CORPUSCULAR HGB CONC 32.2 g/dl (31.0-37.0); MEAN PLATELET VOLUME 9.7 fl (7.0-11.0); RED CELL DISTRIBUTION WIDTH 19.2 % (11.5-14.5)
[2016-09-15 08:09] LABS: ALB/GLOB RATIO 1.2 (1.1-1.8); ALKALINE PHOSPHATASE 118 U/L (38-133); ALT/SGPT 36 U/L (7-56); AST/SGOT 26 U/L (15-39); BILIRUBIN,TOTAL 0.6 mg/dL (0.2-1.3); BLOOD UREA NITROGEN 23 mg/dL (7-21); CALCIUM 9.6 mg/dL (8.4-10.5); CARBON DIOXIDE 29 mmol/L (21-33); CHLORIDE 92 mmol/L (98-107); GFR AFRICAN-AMERICAN > 60; GLUCOSE,RANDOM 143 mg/dL (70-110); POTASSIUM 3.6 mmol/L (3.6-5.0); SODIUM 132 mmol/L (132-148); TOTAL PROTEIN 7.1 g/dL (5.8-8.3)
[2016-09-15] MEDS: Acetylcysteine 20% Inhal Soln (4ml) IH SCH (08:26)
[2016-09-15] MEDS: Levalbuterol 0.63 MG/3 ML Inhal Soln UD IH SCH ×2 (08:26→14:17)
--- NOTE | 2016-09-15 08:40 | PN ---
DATE: 09/14/2016 The patient is clinically stable. Leg swelling is much better. Her breathing is much better. She h as no chest pain and seems ____ clinically better. PHYSICAL EXAMINATION: VITAL SIGNS: Temperature ____, heart rate 107, blood pressure is 106/66 and respirations 20. HEAD AND NECK: Normal. No JVD, no thyromegaly. CHEST: Clear. Diminished breath sounds at the right base but much improved. CARDIAC: First sound, second sound normal. ABDOMEN: Soft, nontender, obese. EXTREMITIES: Mild edema, improved. NEUROLOGIC: Normal. LABORATORY DATA: White count 9.5, hemoglobin 11, hematocrit 34.9, platelets 468. Chemistry shows so dium 129, potassium 4.5, chloride 89, bicarb 33, BUN 21, creatinine 0.6, blood sugar 289, magnesium 1 .3, calcium 9.8, phosphorus 3.8. TSH is 0.59. IMPRESSION AND PLAN: 1. Acute systolic heart failure on top of chronic. The patient seems improving significantly on IV milrinone. The patient is stable, wants to go home. Will discharge the patient home either on milri none or Entresto. 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 2. Chronic obstructive pulmonary disease, bilateral pleural effusion, right more than left. The pat ient should continue Lasix. Continue inhaled bronchodilators. 3. Chronic deep venous thrombosis and pulmonary embolism. Continue Eliquis 5 mg b.i.d. The patient advised not to stop it. 4. Diabetes, tachycardia, schizophrenia, anxiety, chronic headache, questionable liver mass. Will fo llow up as outpatient. Continue current meds. Richardson Roman MD cc: [phone] TT: 09/15/2016 08:39:32 Confirmation # [id number] Dictation # [id number] mn
[2016-09-15] MEDS: Magnesium Oxide 400 mg Tab UD PO SCH (09:46)
[2016-09-15] MEDS: Potassium Chloride 20 mEq ER Tab PO SCH (09:46)
[2016-09-15] MEDS: Pantoprazole 20 mg EC Tab PO SCH (09:46)
[2016-09-15] MEDS: metOLazone 5 MG TAB PO SCH (09:47)
[2016-09-15] MEDS: Promethazine/Cod 6.25mg-10mg/5ml Syr UD PO SCH (10:08)
--- NOTE | 2016-09-15 10:26 | PN ---
DATE: 09/15/2016 The patient is in bed, no acute distress, nontoxic. PHYSICAL EXAMINATION: VITAL SIGNS: Temperature is 98, blood pressure is 100/60, respiratory rate of 20, heart rate of 100. HEENT: Unremarkable. NECK: Supple. LUNGS: Have decreased breath sounds. HEART: Normal S1, S2. ABDOMEN: Soft, nontender. LABORATORY EXAMINATION: Reveals a white count of 9000, hemoglobin of 10, platelets of 446, BUN of 23 , creatinine of 0.5. Urinalysis is noted. There is yeast in the urine. The blood cultures are nega tive. Dr. Roman's note is reviewed. ASSESSMENT AND PLAN: A 51-year-old female with lower extremity swelling and right-sided heart failur e and chronic congestive heart failure and no evidence of deep venous thrombosis and status post franchesca tment and was treated with Zyvox in a patient with diabetes, hypertension, history of migraine and bi polar disorder. Currently, review of orders reveals the patient to be off of antibiotics; however, t he patient is at risk for developing nosocomial infections. Yehuda Valentino MD cc: [phone] TT: 09/15/2016 10:25:27 Confirmation # [id number] Dictation # [id number] tn
--- NOTE | 2016-09-15 11:12 | PN ---
DATE: 09/15/2016 SUBJECTIVE: The patient is seen sitting in chair. She is awake. She is alert. She is comfortable. She denies any pain. She denies any shortness of breath. PHYSICAL EXAMINATION: GENERAL: Middle-aged lady sitting in bed. VITAL SIGNS: Blood pressure 102/61, heart rate 67, respiratory rate 20, temperature 98.7. HEENT: Normocephalic, atraumatic, positive pallor. NECK: Supple, no JVD. LUNGS: Bilateral rhonchi, equal expansion. CARDIAC: S1, S2, regular rate and rhythm, no murmur, no rub. ABDOMEN: Obese, distended, soft, nontender, bowel sounds present. EXTREMITIES: 2+ pitting edema of the lower extremities. INTAKE AND OUTPUT: 564/750. LABORATORY DATA: WBC 9, hemoglobin 10.9, hematocrit 34, platelets 446. Sodium 132, potassium 3.6, c hloride 92, CO2 29, BUN 23, creatinine 0.5, glucose 143, calcium 9.6, albumin 3.8. CURRENT MEDICATIONS: Ativan, Bactroban, Eliquis, Glucophage, metformin, potassium 20 mEq b.i.d., Porfirio oxin, Lasix 40 IV q. 12, Levemir, mag oxide, promethazine, Protonix, Risperdal, Synthroid, Xopenex, Z aroxolyn 5 daily, Zestril, Zofran. ASSESSMENT: 1. Dilutional hyponatremia, improved. 2. Congestive heart failure/cardiomyopathy/hypervolemia. 3. Wcr-bdlethh-byhyuttkk diabetes mellitus. 4. Bipolar disorder. 5. Hypokalemia. 6. Chronic obstructive pulmonary disease. PLAN: 1. The patient is off Primacor as per cardiology. 2. Would continue Lasix at least 40 mg b.i.d. as outpatient. 3. Continue Zaroxolyn 5 mg daily. 4. Will likely need home Primacor. 5. Continue fingerstick monitoring and insulin coverage. 6. Continue respiratory treatments. Shannan Javier MD cc: [phone] TT: 09/15/2016 11:12:02 Confirmation # [id number] Dictation # [id number] rn
[2016-09-15 12:06] VITALS: BP 116/69; PULSE 111; TEMP 97.8
[2016-09-15] MEDS ORDERED: Digoxin 250 mcg (0.25 mg) Tab PO SCH (14:00)
--- NOTE | 2016-09-15 19:02 | PN ---
DATE: 09/15/2016 REASON FOR CONSULTATION AND FOLLOWUP: Shortness of breath, increased leg swelling, decompensated con gestive heart failure, acute on chronic systolic dysfunction. BRIEF CLINICAL HISTORY: The patient feels better off Primacor. Possible discharge today. Denies an y chest pain, shortness of breath, any palpitation. PHYSICAL EXAMINATION: VITAL SIGNS: Temperature afebrile, heart rate 100, blood pressure 116/____. HEENT: PERRLA. Extraocular muscles intact. NECK: Supple. No carotid bruits. No thyromegaly. CHEST: Clear to auscultation. HEART: S1, S2 regular. ABDOMEN: Soft. EXTREMITIES: Clubbing and cyanosis negative. 1+ pedal edema. LABORATORY DATA: BLOOD WORKUP: WBC 9, hemoglobin 10.9, hematocrit 33.9, platelet count 446. Chemis try shows sodium 130, potassium 3.6, chloride 92, carbon dioxide 20, anion gap of 15, BUN 23, creatin ine 0.5. IMPRESSION: Acute decompensated heart failure, cardiomyopathy, nonischemic secondary to chemotherapy from the lymphoma, history of deep venous thrombosis, history of remote Port-A-Cath, history of card iac catheterization, nonobstructive coronary artery disease. RECOMMENDATION: Continue diuretics. Continue Lasix. Continue Zaroxolyn. Off Primacor. Possible d ischarge today, discuss with Dr. Roman. Thank you, Dr. Roman, for providing the opportunity in taking care of the patient. Mau Orozco MD cc: [id number] TT: 09/15/2016 19:01:32 Confirmation # [id number] Dictation # [id number] devin
== END 2016-09-15 16:00 | disposition home or self-care (01) | DRG 544 ==
LOC: ED 15:14 → ERH 20:59 → 2RNO 22:32 → OBSVTOIN 09-02 12:06
PROVIDERS: ADMIT Internal Medicine; ATTEND Internal Medicine
PROC: 3E0F7GC Introduction of Other Therapeutic Substance into Respiratory Tract, Via Natural or Artificial Opening (ICD-10-PCS; 2016-08-30)
PROC: 3E03328 Introduction of Oxazolidinones into Peripheral Vein, Percutaneous Approach (ICD-10-PCS; principal; 2016-09-07)
DX: I11.0 Hypertensive heart disease with heart failure (principal); I50.23 Acute on chronic systolic (congestive) heart failure; J18.9 Pneumonia, unspecified organism; I27.2 Other secondary pulmonary hypertension; J44.0 Chronic obstructive pulmonary disease with (acute) lower respiratory infection; E87.1 Hypo-osmolality and hyponatremia; K76.1 Chronic passive congestion of liver; I42.7 Cardiomyopathy due to drug and external agent; L03.115 Cellulitis of right lower limb; L03.116 Cellulitis of left lower limb; E87.6 Hypokalemia; F25.9 Schizoaffective disorder, unspecified; I08.1 Rheumatic disorders of both mitral and tricuspid valves; E83.42 Hypomagnesemia; E03.9 Hypothyroidism, unspecified; F31.9 Bipolar disorder, unspecified; E11.9 Type 2 diabetes mellitus without complications; I25.10 Atherosclerotic heart disease of native coronary artery without angina pectoris; T45.1X5A Adverse effect of antineoplastic and immunosuppressive drugs, initial encounter; G43.909 Migraine, unspecified, not intractable, without status migrainosus; E78.5 Hyperlipidemia, unspecified; G47.33 Obstructive sleep apnea (adult) (pediatric); D64.9 Anemia, unspecified; Y95 Nosocomial condition; E66.9 Obesity, unspecified; D18.03 Hemangioma of intra-abdominal structures; R00.0 Tachycardia, unspecified; N63 Unspecified lump in breast; R74.8 Abnormal levels of other serum enzymes; Z86.711 Personal history of pulmonary embolism; Z86.718 Personal history of other venous thrombosis and embolism; Z79.01 Long term (current) use of anticoagulants; Z79.4 Long term (current) use of insulin; Z91.19 Patient's noncompliance with other medical treatment and regimen; Z91.14 Patient's other noncompliance with medication regimen; Z91.11 Patient's noncompliance with dietary regimen; Z79.84 Long term (current) use of oral hypoglycemic drugs; Z85.72 Personal history of non-Hodgkin lymphomas; Z90.49 Acquired absence of other specified parts of digestive tract; Z87.01 Personal history of pneumonia (recurrent); Z87.891 Personal history of nicotine dependence

== ENCOUNTER 2016-09-19 12:56 | Inpatient (IN) | payer MEDICAID ==
--- NOTE | 2016-09-19 15:05 | ED PDOC ---
Arrival/HPI - General Chief Complaint: Lower Extremity Problem/Injury Time Seen by Provider: 09/19/16 14:11 Historian: Patient - History of Present Illness Narrative History of Present Illness (Text): 09/19/16 14:58 A 51 year old female presents to the emergency department complaining of worsening bilateral lower extremity swelling. Patient reports she was seen in the hospital 5 days ago for same symptoms but lost the medication prescribed to her on discharge. Patient states she believes she lost them on a transit bus. Patient denies any fever, chills, nausea, vomiting, diarrhea, abdominal pain, chest pain, shortness of breath, dyspnea on exertion or any other complaints. Patient reports she did not see her PMD today because the office staff instructed her to come to the emergency room. PMD: Dr. Roman Time/Duration: Other (5 days) Symptom Course: Worsening Quality: Other Context: Home Past Medical History - Provider Review Nursing Documentation Reviewed: Yes - Past History Past History: No Previous - Infectious Disease Hx of Infectious Diseases: None - Tetanus Immunization Tetanus Immunization: Unknown - Cardiac Hx Cardiac Disorders: Yes Hx Congestive Heart Failure: Yes Hx Hypertension: Yes Hx Pacemaker: No Hx Peripheral Edema: Yes Hx Peripheral Vascular Disease: (DVT TO LEFT ARM) - Pulmonary Hx Respiratory Disorders: Yes Hx Chronic Obstructive Pulmonary Disease (COPD): Yes Hx Emphysema: Yes Hx Pneumonia: Yes - Neurological Hx Neurological Disorder: No Hx Seizures: No - HEENT Hx HEENT Disorder: No - Renal Hx Renal Disorder: No - Endocrine/Metabolic Hx Endocrine Disorders: Yes Hx Diabetes Mellitus Type 2: Yes Hx Hypothyroidism: Yes - Hematological/Oncological Hx Blood Disorders: No - Integumentary Hx Dermatological Disorder: No Hx Basal Cell Carcinoma: No Hx Eczema: No Hx Melanoma: No Hx Psoriasis: No Hx Squamous Cell Carcinoma: No - Musculoskeletal/Rheumatological Hx Falls: No - Gastrointestinal Hx Gastrointestinal Disorders: Yes Hx Crohn's Disease: No Hx Diverticulitis: Yes Hx Gastroesophageal Reflux: Yes - Genitourinary/Gynecological Hx Genitourinary Disorders: No Hx Sexually Transmitted Diseases: No - Psychiatric Hx Anxiety: Yes Hx Bipolar Disorder: Yes Hx Depression: Yes Hx Substance Use: No - Past Surgical History Past Surgical History: No Previous - Surgical History Hx Appendectomy: No Hx Cholecystectomy: Yes Hx Coronary Stent: No Other/Comment: neck mass excision - Anesthesia Hx Anesthesia: Yes Hx Anesthesia Reactions: No Hx Malignant Hyperthermia: No - Suicidal Assessment Feels Threatened In Home Enviroment: No Family/Social History - Physician Review Nursing Documentation Reviewed: Yes Family/Social History: No Known Family HX Smoking Status: Former Smoker Hx Alcohol Use: No Hx Substance Use: No Substance used: cocaine Hx Substance Use Treatment: Yes (NARCOTICS ANONYMOUS) Allergies/Home Meds Allergies/Adverse Reactions: Allergies No Known Allergies Allergy (Verified 09/19/16 16:59) Home Medications: Home Meds Medication Instructions Recorded Confirmed Aspirin [Ecotrin] 81 mg PO DAILY 09/15/16 09/15/16 Furosemide [Lasix] 40 mg PO 0800,1500 09/15/16 09/15/16 Metoprolol Succinate [Toprol XL] 25 mg PO BID 09/15/16 09/15/16 SITagliptin [Januvia] 100 mg PO DAILY 09/15/16 09/15/16 Physical Exam - Physical Exam Narrative Physical Exam (Text): - Review of Systems Constitutional: Normal. absent: Fatigue, Weight Change, Fevers Eyes: Normal ENT: Normal Respiratory: Normal absent: SOB, Cough, Sputum Cardiovascular: Normal absent: Chest pain, Palpitations, Syncope Gastrointestinal: Normal absent: Abdominal pain, Diarrhea, Nausea, Vomiting Genitourinary: Normal. absent: Dysuria, Frequency, Hematuria Musculoskeletal: (+) Bilateral lower extremity swelling absent: Arthralgias, Back Pain, Neck Pain Skin: Normal Neurological: Normal absent: Focal Weakness Endocrine: Normal Hemo/Lymphatic: Normal Psychiatric: Normal - Physical exam Patient appears age appropriate, speaking full sentences without difficulty - Systems Exam Head: Present: Atraumatic, Normocephalic Pupils: Present: PERRL Extraocular Muscles: Present: EOMI Conjunctiva: Present: Normal Mouth: Present: Moist Mucous Membranes Neck: Present: Normal Range of Motion. No: MIDLINE TENDERNESS, Paraspinal Tenderness Respiratory/Chest: Present: Clear to Auscultation, Good Air Exchange. No: Respiratory Distress, Accessory Muscle Use, Tachypnic Cardiovascular: Present: Regular Rate and Rhythm, Normal S1, S2, Peripheral Pulses Present. No: Murmurs Abdomen: Present: Normal Bowel Sounds, No: Tenderness, Peritoneal Signs, Rebound, Guarding, Distention Back: Present: Normal Inspection. No: Midline Tenderness, Paraspinal Tenderness Upper Extremity: Present: Normal Inspection. No: Cyanosis, Edema Lower Extremity: Present: Bilateral lower extremity swelling, no asymmetry and with venous stasis dermatitis changes No: Edema Neurological: Present: GCS=15, Speech Normal, cranial nerves II through XII fully intact with no cerebellar abnormality, neuro-sensory fully intact. No focal neurological deficits. Skin: Present: Warm, Dry, Normal Color. No: Rashes Lymphatic: Present: OX3, NI, NC Psychiatric: Present: Alert, Oriented x 3, Normal Insight, Normal Concentration Vital Signs Reviewed: Yes Vital Signs Temp Pulse Resp BP Pulse Ox 09/19/16 16:18 115/65 09/19/16 15:52 114 H 18 110/75 96 09/19/16 13:28 98.9 F 124 H 18 109/72 97 Temperature: Afebrile Blood Pressure: Normal Pulse: Tachycardic Respiratory Rate: Normal Appearance: Positive for: Well-Appearing, Non-Toxic, Comfortable Pain Distress: None Mental Status: Positive for: Alert and Oriented X 3 Medical Decision Making ED Course and Treatment: Impression: A 51 year old female with worsening bilateral lower extremity swelling, reports she has not taken her meds since last week. B/L LE swelling on examination. Patient denies any chest pain, shortness of breath, dyspnea on exertion. Patient also denies abdominal pain, no nausea no vomiting. Plan: -- Chest xray -- EKG -- Labs -- Lasix -- Reassess and disposition Progress Notes: Case discussed with Dr. Roman, who states patient needs to be admitted for R. heart failure and lower extremity edema under hospitalist, and for possible jail placement. dw and signed out to Dr. Vela Also jennifer Amador pt in no distress, aware of and agrees with plan EKG shows sinus tachycardia, 125 bpm, LVH with left bundle branch block. ST depressions in lateral leads. Interpreted by me. No changes versus 08/29/16. Chest x-ray shows cardiomegaly with some vascular congestion. No infiltrates. Interpreted by me. - Lab Interpretations I have reviewed the lab results: Yes - RAD Interpretation Radiology Orders: 09/19/16 15:00 CHEST PORTABLE [RAD] Stat - Medication Orders Current Medication Orders: Acetaminophen (Tylenol 325mg Tab) 650 mg PO Q6 PRN PRN Reason: mild pain, fever Apixaban (Eliquis) 5 mg PO BID [facility] PRN Reason: Protocol Aspirin (Ecotrin) 81 mg PO DAILY [facility] Digoxin (Lanoxin) 0.25 mg PO 1400 [facility] Furosemide (Lasix) 40 mg PO 0800,1500 [facility] Levothyroxine Sodium (Synthroid) 125 mcg PO ACB [facility] Lisinopril (Zestril) 2.5 mg PO DAILY [facility] Lorazepam (Ativan) 0.5 mg PO HS [facility] PRN Reason: Protocol Magnesium Oxide (Mag-Ox) 400 mg PO TID [facility] Metoprolol Succinate (Toprol Xl) 25 mg PO BID [facility] Pantoprazole Sodium (Protonix Ec Tab) 20 mg PO ACB [facility] Potassium Chloride (K-Dur 20 Meq Er Tab) 20 meq PO BID [facility] Risperidone (Risperdal Tab) 0.5 mg PO 1000,1600 [facility] PRN Reason: Protocol Risperidone (Risperdal Tab) 1 mg PO HS [facility] PRN Reason: Protocol Sitagliptin Phosphate (Januvia) 100 mg PO DAILY [facility] Discontinued Medications Furosemide (Lasix) 40 mg IVP STAT STA Stop: 09/19/16 15:00 Last Admin: 09/19/16 16:18 Dose: Not Given Non-Admin Reason: BP Parameters Not Met - Scribe Statement The provider has reviewed the documentation as recorded by the Gaby Ulloa Provider Scribe Attestation: All medical record entries made by the Scribe were at my direction and personally dictated by me. I have reviewed the chart and agree that the record accurately reflects my personal performance of the history, physical exam, medical decision making, and the department course for this patient. I have also personally directed, reviewed, and agree with the discharge instructions and disposition. Disposition/Present on Arrival - Present on Arrival Any Indicators Present on Arrival: No History of DVT/PE: No History of Uncontrolled Diabetes: No Urinary Catheter: No History of Decub. Ulcer: No History Surgical Site Infection Following: None - Disposition Have Diagnosis and Disposition been Completed?: Yes Diagnosis: Leg edema Disposition: HOSPITALIZED Disposition Time: 14:59 Patient Plan: Admission Condition: FAIR
[2016-09-19 16:24] LABS: ADD MANUAL DIFF? NO
--- NOTE | 2016-09-19 16:27 | CP.PCM.HP ---
History of Present Illness - History of Present Illness History of Present Illness: This is a 51 y/o female with hx of systolic HF, cardiomyopathy, chronic pulmonary effusion, DVT, PE, DM, hypothyroidism, schizophrenia presenting with complaints of b/l lower extremity pain, swelling and redness. Patient was recently admitted here for CHF exacerbation and discharged with Lasix PO. Patient states she left her bag with her medications on the bus and has not taken her meds in 5 days. Patient reports subjective fever and chills. She denies injury or trauma to her lower extremities. Patient denies shortness of breath, orthopnea, BECK, chest pain or palpitations. Echo in 03/25 reveals EF 30% , PH. Last Cardiac cath revealed non-occlusive coronary disease. The patient further denies n/v/d, urinary complaints. She is followed by Dr. Roman - PCP, Dr. Orozco - Cardiology PMH: systolic HF, non-ischemic cardiomyopathy, chronic pleural effusion, DVT, DVT, PE, DM, hypothyroidism, schizophrenia, lymphoma s/p chemotherapy PSH: cholecystectomy Fhx: denies hx cardiac disease Social hx: denies tobacco use, etoh, illict drugs. patient lives at home by herself. Allergies: NKDA Present on Admission - Present on Admission Any Indicators Present on Admission: No Review of Systems - Constitutional Constitutional: Chills, Fever - EENT Eyes: absent: Blurred Vision, Change in Vision Nose/Mouth/Throat: absent: Nasal Congestion, Nasal Discharge - Cardiovascular Cardiovascular: Edema, Leg Edema. absent: Chest Pain, Dyspnea, Leg Ulcers, Orthopnea - Respiratory Respiratory: absent: Cough, Dyspnea, Hemoptysis, Dyspnea on Exertion, Wheezing - Genitourinary Genitourinary: absent: Dysuria, Hematuria - Musculoskeletal Musculoskeletal: absent: Back Pain, Neck Pain - Integumentary Additional comments: distal lower extremities b/l - edema, erythematous, warm to touch - Neurological Neurological: absent: Confusion, Dizziness, Numbness, Focal Weakness - Psychiatric Psychiatric: absent: Anxiety, Depression - Endocrine Endocrine: absent: Fatigue, Palpitations Past Patient History - Infectious Disease Hx of Infectious Diseases: None - Tetanus Immunizations Tetanus Immunization: Unknown - Past Medical History & Family History Past Medical History?: Yes - Past Social History Smoking Status: Former Smoker - CARDIAC Hx Cardiac Disorders: Yes Hx Congestive Heart Failure: Yes Hx Hypertension: Yes Hx Pacemaker: No Hx Peripheral Edema: Yes Hx Peripheral Vascular Disease: (DVT TO LEFT ARM) - PULMONARY Hx Respiratory Disorders: Yes Hx Chronic Obstructive Pulmonary Disease (COPD): Yes Hx Emphysema: Yes Hx Pneumonia: Yes - NEUROLOGICAL Hx Neurological Disorder: No Hx Seizures: No - HEENT Hx HEENT Problems: No - RENAL Hx Chronic Kidney Disease: No - ENDOCRINE/METABOLIC Hx Endocrine Disorders: Yes Hx Diabetes Mellitus Type 2: Yes Hx Hypothyroidism: Yes - HEMATOLOGICAL/ONCOLOGICAL Hx Blood Disorders: No - INTEGUMENTARY Hx Dermatological Problems: No Hx Basil Cell: No Hx Eczema: No Hx Melanoma: No Hx Psoriasis: No Hx Squamous Cell: No - MUSCULOSKELETAL/RHEUMATOLOGICAL Hx Falls: No - GASTROINTESTINAL Hx Gastrointestinal Disorders: Yes Hx Crohn's Disease: No Hx Diverticulitis: Yes Hx Gastroesophageal Reflux: Yes - GENITOURINARY/GYNECOLOGICAL Hx Genitourinary Disorders: No Hx Sexually Transmitted Disorders: No - PSYCHIATRIC Hx Anxiety: Yes Hx Bipolar Disorder: Yes Hx Depression: Yes Hx Substance Use: No - SURGICAL HISTORY Hx Appendectomy: No Hx Cholecystectomy: Yes Hx Coronary Stent: No Other/Comment: neck mass excision - ANESTHESIA Hx Anesthesia: Yes Hx Anesthesia Reactions: No Hx Malignant Hyperthermia: No Meds Allergies/Adverse Reactions: Allergies Allergy/AdvReac Type Severity Reaction Status Date / Time No Known Allergies Allergy Verified 09/19/16 13:33 Physical Exam - Constitutional Appears: Non-toxic, No Acute Distress - Head Exam Head Exam: ATRAUMATIC, NORMOCEPHALIC - Eye Exam Eye Exam: EOMI, PERRL - ENT Exam ENT Exam: Mucous Membranes Moist - Neck Exam Neck exam: Positive for: Full Rom, Normal Inspection. Negative for: Lymphadenopathy - Respiratory Exam Respiratory Exam: Clear to Auscultation Bilateral. absent: Rales, Rhonchi, Wheezes - Cardiovascular Exam Cardiovascular Exam: REGULAR RHYTHM, +S1, +S2 - GI/Abdominal Exam GI & Abdominal Exam: Normal Bowel Sounds, Soft - Extremities Exam Extremities exam: Negative for: normal inspection Additional comments: erythema, tenderness, edema , warmth to b/l distal LE - Back Exam Back exam: tenderness - Neurological Exam Neurological exam: Alert, CN II-XII Intact, Oriented x3 - Psychiatric Exam Psychiatric exam: Normal Affect, Normal Mood - Skin Skin Exam: Dry, Warm Results - Vital Signs Recent Vital Signs: Last Vital Signs Temp 98.9 F 09/19/16 13:28 Pulse 114 H 09/19/16 15:52 Resp 18 09/19/16 15:52 BP 110/75 09/19/16 15:52 Pulse Ox 96 09/19/16 15:52 Assessment & Plan - Assessment and Plan (Free Text) Assessment: 51 y/o F with multiple medical problems including CHF, chronic pleural effusion , cardiomyopathy, DVT, PE, schizophrenia presenting with cellulitis of b/l lower extremities in the setting of decompensated HF 2/2 medication non- compliance with b/l lower extremity edema and chronic pleural effusion. cellulitis b/l LE - vancomycin - venous doppler - lasix for edema - procalcitonin systolic HF - decompensated - lasix 40mg BID - continue home medications - chest xray reveals pleural effusion which appears to be chronic from old images - continue home medications - BNP - monitor volume status - I/O's hx DVT and PE - hx subclavian thrombus - continue eliquis - LE dopplers hx DM - continue Januvia - holding metformin - SSI - accuchecks hx hypothyroidism - continue synthroid - check TSH hx schizophrenia - continue risperidone PPX - Protonix 20mg daily as per home dose - on eliquis per home medications
[2016-09-19 16:33] LABS: BASO # 0.05 K/mm3 (0.0-2.0); BASO % 0.4 % (0.0-3.0); EOS # 0.1 (0.0-0.7); EOS % 0.7 % (1.5-5.0); GRAN # 7.96 (1.4-6.5); GRAN % 70.6 % (50.0-68.0); HEMATOCRIT 29.9 % (36.0-48.0); LYMPH # 2.3 (1.2-3.4); LYMPH % 20.4 % (22.0-35.0); MEAN CELL VOLUME 75.5 fL (80.0-105.0); MEAN CORPUSCULAR HGB CONC 33.1 g/dl (31.0-37.0); MEAN PLATELET VOLUME 9.6 fl (7.0-11.0); MONO # 0.9 (0.1-0.6); MONO % 7.9 % (1.0-6.0); PLATELET COUNT 332 10^3/uL (120.0-450.0); RED CELL DISTRIBUTION WIDTH 19.2 % (11.5-14.5); WHITE BLOOD COUNT 11.3 10^3/ul (4.5-11.0)
[2016-09-19 16:38] LABS: INR 1.06 (0.93-1.08)
[2016-09-19 16:39] LABS: ALB/GLOB RATIO 1.1 (1.1-1.8); ALKALINE PHOSPHATASE 113 U/L (38-133); ALT/SGPT 35 U/L (7-56); AST/SGOT 20 U/L (15-39); BILIRUBIN,TOTAL 1.1 mg/dL (0.2-1.3); BLOOD UREA NITROGEN 14 mg/dL (7-21); CALCIUM 9.3 mg/dL (8.4-10.5); CARBON DIOXIDE 31 mmol/L (21-33); CHLORIDE 88 mmol/L (98-107); GFR AFRICAN-AMERICAN > 60; GLUCOSE,RANDOM 262 mg/dL (70-110); POTASSIUM 3.8 mmol/L (3.6-5.0); SODIUM 128 mmol/L (132-148); TOTAL PROTEIN 7.2 g/dL (5.8-8.3)
--- NOTE | 2016-09-19 17:04 | RAD ---
HISTORY: LE edema COMPARISON: Chest x-ray performed 09/11/16 TECHNIQUE: Chest, one view. FINDINGS: LUNGS: Mild right upper lobe infiltrate. Bibasilar atelectasis. Small left pleural effusion. Tiny right pleural effusion. Mild interstitial prominence may reflect infection or edema. No definite pneumothorax. Please note that chest x-ray has limited sensitivity for the detection of pulmonary masses. CARDIOVASCULAR: Borderline cardiomegaly. OSSEOUS STRUCTURES: Degenerative changes. VISUALIZED UPPER ABDOMEN: Unremarkable. OTHER FINDINGS: None. IMPRESSION: Mild right upper lobe infiltrate. Bibasilar atelectasis. Small left pleural effusion. Tiny right pleural effusion. Mild interstitial prominence may reflect infection or edema.
[2016-09-19] MEDS ORDERED: Piperacillin/Tazobact 3.375 gm 100 ML IVPB SCH (18:00)
[2016-09-19 18:17] LABS: PH,URINE 6.5 (4.7-8.0); URINE BILIRUBIN NEGATIVE (NEGATIVE); URINE BLOOD NEGATIVE (NEGATIVE); URINE GLUCOSE (UA) >=1000 mg/dL (NEGATIVE); URINE KETONE NEGATIVE (NEGATIVE); URINE LEUKOCYTE ESTERASE NEGATIVE Leu/uL (NEGATIVE); URINE PROTEIN NEGATIVE mg/dL (<30 mg/dL); URINE UROBILINOGEN 0.2 E.U./dL (<1 E.U./dL)
[2016-09-19 18:22] LABS: URINE APPEARANCE CLEAR (CLEAR); URINE COLOR LIGHT YELLOW (YELLOW)
[2016-09-19] MEDS: Magnesium Oxide 400 mg Tab UD PO SCH (18:51)
[2016-09-19] MEDS: Potassium Chloride 20 mEq ER Tab PO SCH (18:51)
[2016-09-19] MEDS: Metoprolol Succinate 25 mg XL Tab PO SCH (18:51)
--- NOTE | 2016-09-19 20:33 | CARD ---
APPROVED REPORT EKG Measurement Heart [id number] <Conclusion> Sinus tachycardia Possible Left atrial enlargement Left bundle branch block Abnormal ECG
[2016-09-19 21:05] VITALS: BMI 25.2
[2016-09-19] MEDS ORDERED: Pneumococcal 23-Valent Vaccine IM ONE (21:05)
[2016-09-20 09:08] LABS: ADD MANUAL DIFF? NO
[2016-09-20 09:10] LABS: BASO # 0.05 K/mm3 (0.0-2.0); BASO % 0.5 % (0.0-3.0); EOS # 0.1 (0.0-0.7); EOS % 1.2 % (1.5-5.0); GRAN # 5.76 (1.4-6.5); GRAN % 61.3 % (50.0-68.0); HEMATOCRIT 31.3 % (36.0-48.0); LYMPH # 2.6 (1.2-3.4); LYMPH % 27.2 % (22.0-35.0); MEAN CELL VOLUME 75.6 fL (80.0-105.0); MEAN CORPUSCULAR HEMOGLOBIN 24.9 pg (25.0-35.0); MEAN CORPUSCULAR HGB CONC 32.9 g/dl (31.0-37.0); MEAN PLATELET VOLUME 10.3 fl (7.0-11.0); MONO # 0.9 (0.1-0.6); MONO % 9.8 % (1.0-6.0); PLATELET COUNT 348 10^3/uL (120.0-450.0); RED CELL DISTRIBUTION WIDTH 19.3 % (11.5-14.5); WHITE BLOOD COUNT 9.4 10^3/ul (4.5-11.0)
[2016-09-20] MEDS: Potassium Chloride 20 mEq ER Tab PO SCH ×2 (09:12→17:09)
[2016-09-20] MEDS: Metoprolol Succinate 25 mg XL Tab PO SCH ×2 (09:12→09:18)
[2016-09-20] MEDS: Pantoprazole 20 mg EC Tab PO SCH (09:13)
[2016-09-20] MEDS: Magnesium Oxide 400 mg Tab UD PO SCH ×3 (09:13→17:42)
[2016-09-20] MEDS: Levothyroxine 125 MCG TAB PO SCH (09:13)
[2016-09-20 09:20] LABS: ALB/GLOB RATIO 1.1 (1.1-1.8); ALKALINE PHOSPHATASE 130 U/L (38-133); ALT/SGPT 57 U/L (7-56); AST/SGOT 50 U/L (15-39); BILIRUBIN,TOTAL 1.1 mg/dL (0.2-1.3); BLOOD UREA NITROGEN 12 mg/dL (7-21); CALCIUM 9.2 mg/dL (8.4-10.5); CARBON DIOXIDE 28 mmol/L (21-33); CHLORIDE 92 mmol/L (98-107); GFR AFRICAN-AMERICAN > 60; GLUCOSE,RANDOM 277 mg/dL (70-110); POTASSIUM 4.1 mmol/L (3.6-5.0); SODIUM 130 mmol/L (132-148); TOTAL PROTEIN 6.9 g/dL (5.8-8.3)
--- NOTE | 2016-09-20 12:12 | CP.PCM.PN ---
<David Mejia - Last Filed: 09/20/16 12:13> Subjective - Date & Time of Evaluation Date of Evaluation: 09/20/16 Time of Evaluation: 07:30 - Subjective Subjective: Pt was seen and examined at bedside. No acute complaints at this time. No adverse events overnight as per nursing staff. Pt states she is feeling better and breathing a little better as well. She states her b/l le are still swollen and burning. Pt denied fever, chills, chest pains, sob, abdominal pains, n/v/d/ c or urinary symptoms. Objective - Vital Signs/Intake and Output Vital Signs (last 24 hours): Temp Pulse Resp BP Pulse Ox 97.8 F 103 H 18 109/76 98 09/20/16 08:32 09/20/16 09:18 09/20/16 08:32 09/20/16 09:18 09/20/16 08:32 Intake and Output: 09/20/16 09/20/16 06:59 18:59 Intake Total 360 Output Total 400 Balance -40 - Medications Medications: Current Medications Acetaminophen (Tylenol 325mg Tab) 650 mg PO Q6 PRN PRN Reason: mild pain, fever Apixaban (Eliquis) 5 mg PO BID [facility] PRN Reason: Protocol Last Admin: 09/20/16 09:12 Dose: 5 mg Aspirin (Ecotrin) 81 mg PO DAILY [facility] Last Admin: 09/20/16 09:13 Dose: 81 mg Digoxin (Lanoxin) 0.25 mg PO 1400 [facility] Furosemide (Lasix) 40 mg PO 0800,1500 [facility] Last Admin: 09/20/16 09:12 Dose: 40 mg Vancomycin HCl (Vancomycin 1gm) 1 gm in 250 mls @ 167 mls/hr IVPB Q12H [facility] PRN Reason: Protocol Piperacillin Sod/Tazobactam Sod (Zosyn 3.375 In Ns 100ml) 100 mls @ 200 mls/hr IVPB Q6 [facility] PRN Reason: Protocol Stop: 09/21/16 00:29 Insulin Human Lispro (Humalog Med) 0 units SC ACHS [facility] PRN Reason: Protocol Levothyroxine Sodium (Synthroid) 125 mcg PO ACB [facility] Last Admin: 09/20/16 09:13 Dose: 125 mcg Lisinopril (Zestril) 2.5 mg PO DAILY [facility] Last Admin: 09/20/16 09:19 Dose: Not Given Lorazepam (Ativan) 0.5 mg PO HS [facility] PRN Reason: Protocol Last Admin: 09/19/16 21:49 Dose: 0.5 mg Magnesium Oxide (Mag-Ox) 400 mg PO TID [facility] Last Admin: 09/20/16 09:13 Dose: 400 mg Pantoprazole Sodium (Protonix Ec Tab) 20 mg PO ACB [facility] Last Admin: 09/20/16 09:13 Dose: 20 mg Potassium Chloride (K-Dur 20 Meq Er Tab) 20 meq PO BID [facility] Last Admin: 09/20/16 09:12 Dose: 20 meq Propranolol HCl (Inderal) 10 mg PO TID [facility] Risperidone (Risperdal Tab) 0.5 mg PO 1000,1600 [facility] PRN Reason: Protocol Last Admin: 09/20/16 09:12 Dose: 0.5 mg Risperidone (Risperdal Tab) 1 mg PO HS [facility] PRN Reason: Protocol Last Admin: 09/19/16 21:48 Dose: 1 mg Sitagliptin Phosphate (Januvia) 100 mg PO DAILY [facility] Last Admin: 09/20/16 09:17 Dose: Not Given - Labs Labs: 09/20/16 07:00 09/20/16 07:00 PT 11.5 Seconds (9.9-11.8) 09/19/16 16:15 INR 1.06 (0.93-1.08) 09/19/16 16:15 APTT 27.0 Seconds (23.7-30.8) 09/19/16 16:15 - Constitutional Appears: No Acute Distress - Head Exam Head Exam: ATRAUMATIC, NORMAL INSPECTION, NORMOCEPHALIC - Eye Exam Eye Exam: EOMI, Normal appearance, PERRL Pupil Exam: NORMAL ACCOMODATION, PERRL - ENT Exam ENT Exam: Mucous Membranes Moist, Normal Exam - Neck Exam Neck Exam: Full ROM, Normal Inspection. absent: Lymphadenopathy - Respiratory Exam Respiratory Exam: Clear to Ausculation Bilateral, NORMAL BREATHING PATTERN - Cardiovascular Exam Cardiovascular Exam: REGULAR RHYTHM, +S1, +S2. absent: Murmur - GI/Abdominal Exam GI & Abdominal Exam: Soft, Normal Bowel Sounds. absent: Tenderness - Extremities Exam Extremities Exam: Pedal Edema, Tenderness Additional comments: burning - Neurological Exam Neurological Exam: Alert, Awake, CN II-XII Intact, Normal Gait, Oriented x3 - Psychiatric Exam Psychiatric exam: Normal Affect, Normal Mood - Skin Skin Exam: Dry, Intact, Normal Color, Warm Assessment and Plan - Assessment and Plan (Free Text) Assessment: 51 y/o F with multiple medical problems including CHF, chronic pleural effusion , cardiomyopathy, DVT, PE, schizophrenia presenting with cellulitis of b/l lower extremities in the setting of decompensated HF 2/2 medication non- compliance with b/l lower extremity edema and chronic pleural effusion. cellulitis b/l LE - vancomycin - venous doppler - lasix for edema - procalcitonin - ID consulted, Dr. Bean following pending recs on vanco and zosyn for cellulitis and lobar infiltrate found on cxr systolic HF - decompensated - lasix 40mg BID - continue home medications - chest xray reveals pleural effusion which appears to be chronic from old images - continue home medications - BNP - monitor volume status - I/O's hx DVT and PE - hx subclavian thrombus - continue eliquis - LE dopplers hx DM - continue Januvia - holding metformin - SSI - accuchecks hx hypothyroidism - continue synthroid - check TSH hx schizophrenia - continue risperidone PPX - Protonix 20mg daily as per home dose - on eliquis per home medications seen reviewed and discussed with attending <iDon COOPER,Mau - Last Filed: 09/20/16 15:51> Objective - Vital Signs/Intake and Output Vital Signs (last 24 hours): Temp Pulse Resp BP Pulse Ox 97.8 F 107 H 18 105/67 98 09/20/16 08:32 09/20/16 14:45 09/20/16 08:32 09/20/16 14:45 09/20/16 08:32 Intake and Output: 09/20/16 09/20/16 06:59 18:59 Intake Total 360 540 Output Total 400 600 Balance -40 -60 - Medications Medications: Current Medications Acetaminophen (Tylenol 325mg Tab) 650 mg PO Q6 PRN PRN Reason: mild pain, fever Apixaban (Eliquis) 5 mg PO BID [facility] PRN Reason: Protocol Last Admin: 09/20/16 09:12 Dose: 5 mg Aspirin (Ecotrin) 81 mg PO DAILY [facility] Last Admin: 09/20/16 09:13 Dose: 81 mg Digoxin (Lanoxin) 0.25 mg PO 1400 [facility] Last Admin: 09/20/16 14:44 Dose: 0.25 mg Furosemide (Lasix) 40 mg PO 0800,1500 [facility] Last Admin: 09/20/16 14:43 Dose: 40 mg Vancomycin HCl (Vancomycin 1gm) 1 gm in 250 mls @ 167 mls/hr IVPB Q12H [facility] PRN Reason: Protocol Piperacillin Sod/Tazobactam Sod (Zosyn 3.375 In Ns 100ml) 100 mls @ 200 mls/hr IVPB Q6 [facility] PRN Reason: Protocol Stop: 09/21/16 00:29 Insulin Human Lispro (Humalog Med) 0 units SC ACHS [facility] PRN Reason: Protocol Levothyroxine Sodium (Synthroid) 125 mcg PO ACB [facility] Last Admin: 09/20/16 09:13 Dose: 125 mcg Lisinopril (Zestril) 2.5 mg PO DAILY [facility] Last Admin: 09/20/16 09:19 Dose: Not Given Lorazepam (Ativan) 0.5 mg PO HS [facility] PRN Reason: Protocol Last Admin: 09/19/16 21:49 Dose: 0.5 mg Magnesium Oxide (Mag-Ox) 400 mg PO TID [facility] Last Admin: 09/20/16 14:44 Dose: 400 mg Metformin HCl (Glucophage) 1,000 mg PO BID [facility] Metolazone (Zaroxolyn) 5 mg PO DAILY [facility] Last Admin: 09/20/16 14:47 Dose: 5 mg Pantoprazole Sodium (Protonix Ec Tab) 20 mg PO ACB [facility] Last Admin: 09/20/16 09:13 Dose: 20 mg Potassium Chloride (K-Dur 20 Meq Er Tab) 20 meq PO BID [facility] Last Admin: 09/20/16 09:12 Dose: 20 meq Propranolol HCl (Inderal) 10 mg PO TID [facility] Last Admin: 09/20/16 14:45 Dose: 10 mg Risperidone (Risperdal Tab) 0.5 mg PO 1000,1600 [facility] PRN Reason: Protocol Last Admin: 09/20/16 09:12 Dose: 0.5 mg Risperidone (Risperdal Tab) 1 mg PO HS [facility] PRN Reason: Protocol Last Admin: 09/19/16 21:48 Dose: 1 mg Sitagliptin Phosphate (Januvia) 100 mg PO DAILY [facility] Last Admin: 09/20/16 09:17 Dose: Not Given - Labs Labs: 09/20/16 07:00 09/20/16 07:00 PT 11.5 Seconds (9.9-11.8) 09/19/16 16:15 INR 1.06 (0.93-1.08) 09/19/16 16:15 APTT 27.0 Seconds (23.7-30.8) 09/19/16 16:15 Attending/Attestation - Attestation I have personally seen and examined this patient.: Yes I have fully participated in the care of the patient.: Yes I have reviewed all pertinent clinical information, including history, physical exam and plan: Yes Notes (Text): Patient was seen and examined with medical device .Agreed with resident assessment and plan. Patient is feeling better, leg swelling is better, the isue of compliance with medication was discussed in detail with her.The redness of leg is better, if no fever and cultures remain negative, can be discharged home in 24 hour.We will also get Physical therapy evaluation. Management plan was discussed in detail with patient Education was provided. 09/20/16 15:50
--- NOTE | 2016-09-20 12:23 | CP.PCM.CON ---
History of Present Illness - History of Present Illness History of Present Illness: 51 year old female with PMH of HTN, hypothyroidism, DM, chronic CHF, history of migraines, bipolar disorder, history of acute cholecystitis S/P laparoscopic cholecystectomy in Apr 2016 was recently admitted in [facility] for CHF exacerbation and possible lower extremity cellulitis. On discharge, apparently the patient lost her meds during transport and she had not taken any of her meds in the past 5-6 days. She then started having increased swelling of her legs with pain on ambulation. She denies specific trauma to the legs, no animal contacts or insect bites, no wading in water, no walking barefoot on soil. She also denies ever or chills, no nausea or vomiting, no chest pain, currently no SOB, no headache or dizziness, no blurring of vision, no cough or colds, no abdominal pain, no diarrhea or dysuria. Infectious diseases consult is requested to further evaluate and manage. Review of Systems - Review of Systems All systems: reviewed and no additional remarkable complaints except (as per HPI ) Past Patient History - Infectious Disease Hx of Infectious Diseases: None - Tetanus Immunizations Tetanus Immunization: Unknown - Past Medical History & Family History Past Medical History?: Yes - Past Social History Smoking Status: Former Smoker - CARDIAC Hx Cardiac Disorders: Yes Hx Congestive Heart Failure: Yes Hx Hypertension: Yes Hx Pacemaker: No Hx Peripheral Edema: Yes Hx Peripheral Vascular Disease: (DVT TO LEFT ARM) - PULMONARY Hx Respiratory Disorders: Yes Hx Chronic Obstructive Pulmonary Disease (COPD): Yes Hx Emphysema: Yes Hx Pneumonia: Yes - NEUROLOGICAL Hx Neurological Disorder: No Hx Seizures: No - HEENT Hx HEENT Problems: No - RENAL Hx Chronic Kidney Disease: No - ENDOCRINE/METABOLIC Hx Endocrine Disorders: Yes Hx Diabetes Mellitus Type 2: Yes Hx Hypothyroidism: Yes - HEMATOLOGICAL/ONCOLOGICAL Hx Blood Disorders: No - INTEGUMENTARY Hx Dermatological Problems: No Hx Basil Cell: No Hx Eczema: No Hx Melanoma: No Hx Psoriasis: No Hx Squamous Cell: No - MUSCULOSKELETAL/RHEUMATOLOGICAL Hx Falls: No - GASTROINTESTINAL Hx Gastrointestinal Disorders: Yes Hx Crohn's Disease: No Hx Diverticulitis: Yes Hx Gastroesophageal Reflux: Yes - GENITOURINARY/GYNECOLOGICAL Hx Genitourinary Disorders: No Hx Sexually Transmitted Disorders: No - PSYCHIATRIC Hx Anxiety: Yes Hx Bipolar Disorder: Yes Hx Depression: Yes Hx Substance Use: No - SURGICAL HISTORY Hx Appendectomy: No Hx Cholecystectomy: Yes Hx Coronary Stent: No Other/Comment: neck mass excision - ANESTHESIA Hx Anesthesia: Yes Hx Anesthesia Reactions: No Hx Malignant Hyperthermia: No Meds Allergies/Adverse Reactions: Allergies Allergy/AdvReac Type Severity Reaction Status Date / Time No Known Allergies Allergy Verified 09/19/16 16:59 - Medications Medications: Current Medications Acetaminophen (Tylenol 325mg Tab) 650 mg PO Q6 PRN PRN Reason: mild pain, fever Apixaban (Eliquis) 5 mg PO BID [facility] PRN Reason: Protocol Aspirin (Ecotrin) 81 mg PO DAILY [facility] Digoxin (Lanoxin) 0.25 mg PO 1400 [facility] Furosemide (Lasix) 40 mg PO 0800,1500 [facility] Vancomycin HCl (Vancomycin 1gm) 1 gm in 250 mls @ 167 mls/hr IVPB Q12H [facility] PRN Reason: Protocol Piperacillin Sod/Tazobactam Sod (Zosyn 3.375 In Ns 100ml) 100 mls @ 200 mls/hr IVPB Q6 [facility] PRN Reason: Protocol Stop: 09/20/16 00:29 Levothyroxine Sodium (Synthroid) 125 mcg PO ACB [facility] Lisinopril (Zestril) 2.5 mg PO DAILY [facility] Lorazepam (Ativan) 0.5 mg PO HS [facility] PRN Reason: Protocol Magnesium Oxide (Mag-Ox) 400 mg PO TID [facility] Metoprolol Succinate (Toprol Xl) 25 mg PO BID [facility] Pantoprazole Sodium (Protonix Ec Tab) 20 mg PO ACB [facility] Potassium Chloride (K-Dur 20 Meq Er Tab) 20 meq PO BID [facility] Risperidone (Risperdal Tab) 0.5 mg PO 1000,1600 [facility] PRN Reason: Protocol Risperidone (Risperdal Tab) 1 mg PO HS [facility] PRN Reason: Protocol Sitagliptin Phosphate (Januvia) 100 mg PO DAILY [facility] Physical Exam - Constitutional Appears: Non-toxic, No Acute Distress - Head Exam Head Exam: NORMAL INSPECTION - ENT Exam ENT Exam: Mucous Membranes Moist - Neck Exam Neck exam: Negative for: Lymphadenopathy, Meningismus - Respiratory Exam Respiratory Exam: Decreased Breath Sounds - Cardiovascular Exam Cardiovascular Exam: +S1, +S2 - GI/Abdominal Exam GI & Abdominal Exam: Soft. absent: Tenderness - Extremities Exam Additional comments: both lower extremities with edema, some erythema, no tenderness, right greater than left Results - Vital Signs Recent Vital Signs: Last Vital Signs Temp 98.9 F 09/19/16 13:28 Pulse 104 H 09/19/16 17:25 Resp 18 09/19/16 17:25 BP 108/68 09/19/16 17:25 Pulse Ox 96 09/19/16 17:25 - Labs Result Diagrams: 09/20/16 07:00 09/20/16 07:00 Labs: Laboratory Results - last 24 hr 09/19/16 09/19/16 09/19/16 16:15 16:15 16:15 WBC 11.3 H D RBC 3.96 Hgb 9.9 L Hct 29.9 L MCV 75.5 L MCH 25.0 MCHC 33.1 RDW 19.2 H Plt Count 332 MPV 9.6 Gran % 70.6 H Lymph % (Auto) 20.4 L [place] % (Auto) 7.9 H Eos % (Auto) 0.7 L Baso % (Auto) 0.4 Gran # 7.96 H Lymph # 2.3 [place] # 0.9 H Eos # 0.1 Baso # 0.05 PT 11.5 INR 1.06 APTT 27.0 Sodium 128 L Potassium 3.8 Chloride 88 L Carbon Dioxide 31 Anion Gap 13 BUN 14 Creatinine 0.4 L Est GFR ( Amer) > 60 Est GFR (Non-Af Amer) > 60 Random Glucose 262 H Calcium 9.3 Total Bilirubin 1.1 AST 20 ALT 35 Alkaline Phosphatase 113 NT-Pro-B Natriuret Pep 3360 H Total Protein 7.2 Albumin 3.8 Globulin 3.5 Albumin/Globulin Ratio 1.1 Assessment & Plan - Assessment and Plan (Free Text) Plan: Assessment Lower extremity swelling, consider secondary to right-sided heart failure from chronic congestive heart failure, R/O cellulitis right breast swelling, etiology to be determined Healthcare-associated pneumonia, right middle lobe, clinically improved history of bilateral healthcare-associated pneumonia in this patient chronic heart failure S/P acute cholecystitis, S/P laparoscopic cholecystectomy CAD with chronic CHF DM HTN history of migraines bipolar disorder Plan started on Vancomycin and will monitor clinical response and blood cx will follow clinically
[2016-09-20] MEDS: Digoxin 250 mcg (0.25 mg) Tab PO SCH (14:44)
[2016-09-20] MEDS: metOLazone 5 MG TAB PO SCH (14:47)
--- NOTE | 2016-09-20 15:19 | CON ---
DATE: 09/20/2016 SERVICE: Cardiology. REASON FOR CONSULTATION AND FOLLOWUP: Ran out of medications, swelling of the leg. BRIEF CLINICAL HISTORY: A 51-year-old female with past medical history significant for decompensated congestive heart failure, multiple admissions, leg swelling, was recently discharged from the [facility]. The patient said that she was traveling on a bus and going with a girlfriend to see out and left the medication box on the bus and the bus moved to next destination and patient could not find the m edication, so came to the Emergency Room and got admitted. Denies any chest pain, denies any shortne ss of breath, denies any palpitation. PAST MEDICAL HISTORY: Significant for lymphoma, congestive heart failure, bipolar disorder, hypothyr oidism, mitral regurg, severe tricuspid regurgitation, history of chemotherapy for lymphoma, nonische kim cardiomyopathy, status post cardiac catheterization, nonobstructive coronary artery disease, hist ory of being treated with inotropes multiple times, admitted with decompensated congestive heart fail ure, element of noncompliance with medications and used to drink a lot of water at home. PREVIOUS CARDIAC WORKUP: As follows: The patient had a recent echo ____ revealed ejection fraction 3 5%. The patient had a MUGA scan that shows ejection fraction 55% dated 04/13/2016. Prior, patient als o had MUGA scan in 04/2015, ejection fraction 56%, history of cardiac catheterization that shows 40%-4 5% nonobstructive coronary artery disease, cardiac catheterization 03/2015. REVIEW OF SYSTEMS: A 14 point as per HPI, negative except as HPI. PHYSICAL EXAMINATION: VITAL SIGNS: Temperature afebrile, heart rate 103, blood pressure 109/76. HEENT: PERRLA. Extraocular muscles intact. NECK: Supple. No carotid bruits. No thyromegaly. CHEST: Clear to auscultation. HEART: S1, S2 regular. ABDOMEN: Soft. EXTREMITIES: Clubbing and cyanosis negative. LABORATORY DATA: Blood workup as follows: WBC ____, hemoglobin ____, hematocrit 31.3, platelet coun t 348. Chemistry shows sodium 130, potassium 4.0, chloride ____, carbon dioxide 28, anion gap of 14, BUN 12, creatinine 0.4. IMPRESSION: History of sinus tachycardia, was on propranolol, noncompliance with medication, history of decompensated congestive heart failure, cardiomyopathy, nonischemic, history of lymphoma, status post chemotherapy, mitral regurgitation, tricuspid regurgitation, history of deep venous thrombosis o f right upper extremity, history of Port-A-Cath, history of removal of Port-A-Cath, diabetes, hyperte nsion, hyperlipidemia, history of cardiac catheterization in 03/2015, nonobstructive coronary artery disease. RECOMMENDATION: Continue diuretics, resume back propranolol for sinus tachycardia. Continue Eliquis for DVT prophylaxis. Continue digoxin, continue Lasix. We will follow with you. We will discontinue metoprolol and change to Inderal for sinus tachycardia. Emphasis made on complia nce with the medication. The patient does not take medications, it appears, and multiple admissions with decompensated congestive heart failure ____. The patient was recently discharged from [facility] a week before, admitted last time here to the hospital to [place]. Monitor electro lytes. Supervised medication for patient. Arrangements can be made for supervised medication so pat ient could be compliant. We will follow with you. Thank you, Dr. Roman, for providing the opportunity in taking care of the patient. Mau Orozco MD cc: [id number] TT: 09/20/2016 15:18:22 Confirmation # [id number] Dictation # [id number] jose
[2016-09-20 16:09] LABS: INR 1.11 (0.93-1.08); PARTIAL THROMBOPLASTIN TIME 28.4 Seconds (23.7-30.8)
[2016-09-20] MEDS: Vancomycin 1gm in NS 250ml 1 GM/250 ML BAG IVPB SCH (17:43)
[2016-09-20] MEDS: Insulin Lispro (humaLOG) MEDIUM Coverage SC SCH ×2 (17:52→21:19)
[2016-09-20] MEDS ORDERED: Piperacillin/Tazobact 3.375 gm 100 ML IVPB SCH (18:00)
[2016-09-21] MEDS: Vancomycin 1gm in NS 250ml 1 GM/250 ML BAG IVPB SCH (05:14)
[2016-09-21] MEDS: Insulin Lispro (humaLOG) MEDIUM Coverage SC SCH (08:47)
[2016-09-21] MEDS: Pantoprazole 20 mg EC Tab PO SCH (08:47)
[2016-09-21] MEDS: Levothyroxine 125 MCG TAB PO SCH (08:47)
[2016-09-21 09:21] VITALS: RESP 18; TEMP 98.5; O2SAT 94
[2016-09-21 09:43] LABS: ADD MANUAL DIFF? NO
[2016-09-21 09:45] LABS: BASO # 0.05 K/mm3 (0.0-2.0); BASO % 0.5 % (0.0-3.0); EOS # 0.2 (0.0-0.7); EOS % 1.7 % (1.5-5.0); GRAN # 7.29 (1.4-6.5); GRAN % 72.7 % (50.0-68.0); HEMATOCRIT 31.7 % (36.0-48.0); LYMPH % 19.5 % (22.0-35.0); MEAN CELL VOLUME 76.2 fL (80.0-105.0); MEAN CORPUSCULAR HGB CONC 32.8 g/dl (31.0-37.0); MONO # 0.6 (0.1-0.6); MONO % 5.6 % (1.0-6.0); PLATELET COUNT 343 10^3/uL (120.0-450.0); RED CELL DISTRIBUTION WIDTH 19.4 % (11.5-14.5)
[2016-09-21 09:55] LABS: ALB/GLOB RATIO 1.1 (1.1-1.8); ALKALINE PHOSPHATASE 117 U/L (38-133); ALT/SGPT 48 U/L (7-56); AST/SGOT 27 U/L (15-39); BILIRUBIN,TOTAL 0.9 mg/dL (0.2-1.3); BLOOD UREA NITROGEN 16 mg/dL (7-21); CALCIUM 9.1 mg/dL (8.4-10.5); CARBON DIOXIDE 30 mmol/L (21-33); CHLORIDE 90 mmol/L (98-107); GFR AFRICAN-AMERICAN > 60; INR 1.04 (0.93-1.08); PARTIAL THROMBOPLASTIN TIME 28.5 Seconds (23.7-30.8); POTASSIUM 3.7 mmol/L (3.6-5.0); SODIUM 129 mmol/L (132-148); TOTAL PROTEIN 7.2 g/dL (5.8-8.3)
[2016-09-21 10:06] LABS: GLUCOSE,RANDOM 317 mg/dL (70-110)
[2016-09-21] MEDS: metOLazone 5 MG TAB PO SCH (10:31)
[2016-09-21] MEDS: Potassium Chloride 20 mEq ER Tab PO SCH (10:35)
[2016-09-21] MEDS: Magnesium Oxide 400 mg Tab UD PO SCH ×2 (10:35→13:43)
[2016-09-21] MEDS ORDERED: Insulin Lispro (HUMAlog) HIGH Coverage SC SCH (11:30)
--- NOTE | 2016-09-21 11:55 | CP.PCM.PN ---
Subjective - Date & Time of Evaluation Date of Evaluation: 09/21/16 Time of Evaluation: 10:55 - Subjective Subjective: Less swelling and pain in the legs, no fevers overnight, breathing better. Objective - Vital Signs/Intake and Output Vital Signs (last 24 hours): Temp Pulse Resp BP Pulse Ox 98.5 F 96 H 18 80/50 L 94 L 09/21/16 09:20 09/21/16 09:20 09/21/16 09:20 09/21/16 09:20 09/21/16 09:20 Intake and Output: 09/21/16 09/21/16 06:59 18:59 Intake Total 660 Output Total 1700 Balance -1040 - Medications Medications: Current Medications Acetaminophen (Tylenol 325mg Tab) 650 mg PO Q6 PRN PRN Reason: mild pain, fever Apixaban (Eliquis) 5 mg PO BID [facility] PRN Reason: Protocol Last Admin: 09/20/16 17:09 Dose: 5 mg Aspirin (Ecotrin) 81 mg PO DAILY [facility] Last Admin: 09/20/16 09:13 Dose: 81 mg Digoxin (Lanoxin) 0.25 mg PO 1400 [facility] Last Admin: 09/20/16 14:44 Dose: 0.25 mg Furosemide (Lasix) 40 mg PO 0800,1500 [facility] Last Admin: 09/21/16 08:41 Dose: Not Given Vancomycin HCl (Vancomycin 1gm) 1 gm in 250 mls @ 167 mls/hr IVPB Q12H [facility] PRN Reason: Protocol Last Admin: 09/21/16 05:14 Dose: 167 mls/hr Insulin Human Lispro (Humalog High) 0 units SC ACHS [facility] PRN Reason: Protocol Levothyroxine Sodium (Synthroid) 125 mcg PO ACB [facility] Last Admin: 09/21/16 08:47 Dose: 125 mcg Lisinopril (Zestril) 2.5 mg PO DAILY [facility] Last Admin: 09/20/16 09:19 Dose: Not Given Lorazepam (Ativan) 0.5 mg PO HS [facility] PRN Reason: Protocol Last Admin: 09/20/16 21:12 Dose: 0.5 mg Magnesium Oxide (Mag-Ox) 400 mg PO TID [facility] Last Admin: 09/20/16 17:42 Dose: 400 mg Metformin HCl (Glucophage) 1,000 mg PO BID [facility] Last Admin: 09/20/16 17:09 Dose: 1,000 mg Metolazone (Zaroxolyn) 5 mg PO DAILY [facility] Last Admin: 09/20/16 14:47 Dose: 5 mg Pantoprazole Sodium (Protonix Ec Tab) 20 mg PO ACB [facility] Last Admin: 09/21/16 08:47 Dose: 20 mg Potassium Chloride (K-Dur 20 Meq Er Tab) 20 meq PO BID [facility] Last Admin: 09/20/16 17:09 Dose: 20 meq Propranolol HCl (Inderal) 10 mg PO TID [facility] Last Admin: 09/20/16 17:42 Dose: 10 mg Risperidone (Risperdal Tab) 0.5 mg PO 1000,1600 [facility] PRN Reason: Protocol Last Admin: 09/20/16 17:09 Dose: 0.5 mg Risperidone (Risperdal Tab) 1 mg PO HS [facility] PRN Reason: Protocol Last Admin: 09/20/16 21:14 Dose: 1 mg Sitagliptin Phosphate (Januvia) 100 mg PO DAILY [facility] Last Admin: 09/20/16 09:17 Dose: Not Given - Labs Labs: 09/21/16 09:30 09/21/16 09:30 PT 12.0 Seconds (9.9-11.8) H 09/20/16 15:40 INR 1.11 (0.93-1.08) H 09/20/16 15:40 APTT 28.4 Seconds (23.7-30.8) 09/20/16 15:40 - Constitutional Appears: Non-toxic, No Acute Distress - Head Exam Head Exam: NORMAL INSPECTION - Neck Exam Neck Exam: absent: Lymphadenopathy, Meningismus - Respiratory Exam Respiratory Exam: Decreased Breath Sounds - Cardiovascular Exam Cardiovascular Exam: +S1, +S2 - GI/Abdominal Exam GI & Abdominal Exam: Soft. absent: Tenderness - Extremities Exam Additional comments: decreased swelling and erythema of both lower extremities Assessment and Plan - Assessment and Plan (Free Text) Plan: Assessment Lower extremity swelling, consider secondary to right-sided heart failure from chronic congestive heart failure, R/O cellulitis right breast swelling, etiology to be determined Healthcare-associated pneumonia, right middle lobe, clinically improved history of bilateral healthcare-associated pneumonia in this patient chronic heart failure S/P acute cholecystitis, S/P laparoscopic cholecystectomy CAD with chronic CHF DM HTN history of migraines bipolar disorder Plan on Vancomycin day 2 and will continue to monitor clinical response; blood cx are negative will continue to follow clinically
[2016-09-21 13:35] VITALS: PULSE 107
[2016-09-21] MEDS: Digoxin 250 mcg (0.25 mg) Tab PO SCH (13:43)
[2016-09-21 13:44] VITALS: BP 121/74; PULSE 110
--- NOTE | 2016-09-21 14:35 | CP.PCM.DIS ---
<David Mejia - Last Filed: 09/22/16 17:15> Provider - Provider Date of Admission: 09/19/16 15:13 Attending physician: Mau Ashley MD Primary care physician: Richardson Roman MD Consults: ID- Dr. Bean Cardio - Dr. Orozco Time Spent in preparation of Discharge (in minutes): 45 Hospital Course - Lab Results Lab Results: Micro Results 09/19/16 17:35 Blood-Venous Blood Culture - Preliminary NO GROWTH AFTER 24 HOURS 09/19/16 17:10 Blood-Venous Blood Culture - Preliminary NO GROWTH AFTER 24 HOURS Most Recent Lab Values WBC 10.0 10^3/ul (4.5-11.0) 09/21/16 09:30 RBC 4.16 10^6/uL (3.5-6.1) 09/21/16 09:30 Hgb 10.4 gm/dL (12.0-16.0) L 09/21/16 09:30 Hct 31.7 % (36.0-48.0) L 09/21/16 09:30 MCV 76.2 fL (80.0-105.0) L 09/21/16 09:30 MCH 25.0 pg (25.0-35.0) 09/21/16 09:30 MCHC 32.8 g/dl (31.0-37.0) 09/21/16 09:30 RDW 19.4 % (11.5-14.5) H 09/21/16 09:30 Plt Count 343 10^3/uL (120.0-450.0) 09/21/16 09:30 MPV 10.0 fl (7.0-11.0) 09/21/16 09:30 Gran % 72.7 % (50.0-68.0) H 09/21/16 09:30 Lymph % (Auto) 19.5 % (22.0-35.0) L 09/21/16 09:30 [place] % (Auto) 5.6 % (1.0-6.0) 09/21/16 09:30 Eos % (Auto) 1.7 % (1.5-5.0) 09/21/16 09:30 Baso % (Auto) 0.5 % (0.0-3.0) 09/21/16 09:30 Gran # 7.29 (1.4-6.5) H 09/21/16 09:30 Lymph # 2.0 (1.2-3.4) 09/21/16 09:30 [place] # 0.6 (0.1-0.6) 09/21/16 09:30 Eos # 0.2 (0.0-0.7) 09/21/16 09:30 Baso # 0.05 K/mm3 (0.0-2.0) 09/21/16 09:30 ESR 60 mm/hr (0.0-20.0) H 09/20/16 07:30 PT 11.2 Seconds (9.9-11.8) 09/21/16 09:30 INR 1.04 (0.93-1.08) 09/21/16 09:30 APTT 28.5 Seconds (23.7-30.8) 09/21/16 09:30 Sodium 129 mmol/L (132-148) L 09/21/16 09:30 Potassium 3.7 mmol/L (3.6-5.0) 09/21/16 09:30 Chloride 90 mmol/L (98-107) L 09/21/16 09:30 Carbon Dioxide 30 mmol/L (21-33) 09/21/16 09:30 Anion Gap 13 (10-20) 09/21/16 09:30 BUN 16 mg/dL (7-21) 09/21/16 09:30 Creatinine 0.5 mg/dL (0.5-1.4) 09/21/16 09:30 Est GFR ( Amer) > 60 09/21/16 09:30 Est GFR (Non-Af Amer) > 60 09/21/16 09:30 POC Glucose (mg/dL) 373 mg/dL (65-110) H 09/21/16 11:35 Random Glucose 317 mg/dL (70-110) H* 09/21/16 09:30 Calcium 9.1 mg/dL (8.4-10.5) 09/21/16 09:30 Total Bilirubin 0.9 mg/dL (0.2-1.3) 09/21/16 09:30 AST 27 U/L (15-39) 09/21/16 09:30 ALT 48 U/L (7-56) 09/21/16 09:30 Alkaline Phosphatase 117 U/L (38-133) 09/21/16 09:30 C-React Prot High Sens > 15.00 mg/L (1.00-3.00) H 09/20/16 07:30 NT-Pro-B Natriuret Pep 3360 pg/mL (0-450) H 09/19/16 16:15 Total Protein 7.2 g/dL (5.8-8.3) 09/21/16 09:30 Albumin 3.7 g/dL (3.0-4.8) 09/21/16 09:30 Globulin 3.4 gm/dL 09/21/16 09:30 Albumin/Globulin Ratio 1.1 (1.1-1.8) 09/21/16 09:30 Procalcitonin < 0.05 NG/ML (0.19-0.49) L 09/19/16 16:15 Urine Color Light yellow (YELLOW) 09/19/16 17:40 Urine Appearance Clear (CLEAR) 09/19/16 17:40 Urine pH 6.5 (4.7-8.0) 09/19/16 17:40 Ur Specific Theodore 1.010 (1.005-1.035) 09/19/16 17:40 Urine Protein Negative mg/dL (<30 mg/dL) 09/19/16 17:40 Urine Glucose (UA) >=1000 mg/dL (NEGATIVE) 09/19/16 17:40 Urine Ketones Negative mg/dL (NEGATIVE) 09/19/16 17:40 Urine Blood Negative (NEGATIVE) 09/19/16 17:40 Urine Nitrate Negative (NEGATIVE) 09/19/16 17:40 Urine Bilirubin Negative (NEGATIVE) 09/19/16 17:40 Urine Urobilinogen 0.2 E.U./dL (<1 E.U./dL) 09/19/16 17:40 Ur Leukocyte Esterase Negative Jason/uL (NEGATIVE) 09/19/16 17:40 - Hospital Course Hospital Course: This is a 51 y/o female with hx of systolic HF, cardiomyopathy, chronic pulmonary effusion, DVT, PE, DM, hypothyroidism, schizophrenia presenting with complaints of b/l lower extremity pain, swelling and redness. Patient was recently admitted here for CHF exacerbation and discharged with Lasix PO. Patient states she left her bag with her medications on the bus and has not taken her meds in 5 days. Pt was admitted with cellulitis of b/l lower extremities in the setting of decompensated HF 2/2 medication non-compliance with b/l lower extremity edema and chronic pleural effusion. ID and cardiology were consuled. ID Dr. Bean began pt on vancomycin iv for LE cellulitis. Cardiology, Dr. Orozco, recommended inderall instead of metoprolol and recommended strict adherence to her medical management. Pt was started on home meds that she hadn't taken after losing her meds, including lasix. Pt was feeling and breathing well. Pt was ambulating without issue. Pt was started on IV abx on vancomycin for the cellulitis. Her cellulitis began improving and since pt continued to improve, ambulating well as per PT didnt require services. Pt tolerated po intake and was moving her bowels and bladder regularly. Pt was cleared for dc with po abx and home meds. Pt is to fu with PMD Dr. Roman upon dc and cardiology as per PMD. Discharge Exam - Head Exam Head Exam: NORMAL INSPECTION - Eye Exam Eye Exam: EOMI, Normal appearance, PERRL Pupil Exam: NORMAL ACCOMODATION, PERRL - ENT Exam ENT Exam: Mucous Membranes Moist - Respiratory Exam Respiratory Exam: Clear to PA & Lateral, NORMAL BREATHING PATTERN, UNREMARKABLE - Cardiovascular Exam Cardiovascular Exam: REGULAR RHYTHM, +S1, +S2 - GI/Abdominal Exam GI & Abdominal Exam: Normal Bowel Sounds, Soft. absent: Tenderness - Extremities Exam Extremities exam: pedal edema (trace) - Neurological Exam Neurological exam: Alert, CN II-XII Intact, Normal Gait, Oriented x3, Reflexes Normal - Psychiatric Exam Psychiatric exam: Anxious - Skin Skin Exam: Dry, Intact, Normal Color, Warm Discharge Plan - Discharge Medications Prescriptions: Acetaminophen/Butalbital/Caf [Fioricet] 1 tab PO DAILY PRN #30 tab PRN Reason: Headache Apixaban [Eliquis] 5 mg PO BID #60 tab Aspirin [Ecotrin] 81 mg PO DAILY #30 Digoxin [Lanoxin] 0.25 mg PO 1400 #30 tab Furosemide [Lasix] 40 mg PO 0800,1500 60 Days Insulin Detemir [Levemir] 10 unit SC ACD 30 Days Levothyroxine [Synthroid] 125 mcg PO ACB #30 tab Lisinopril [Zestril] 2.5 mg PO DAILY #30 tab Magnesium Oxide [Mag-Ox] 400 mg PO TID #30 tab MetFORMIN [glucoPHAGE] 1,000 mg PO BID #60 tab metOLazone [Zaroxolyn] 5 mg PO DAILY #30 tab Metoprolol Succinate [Toprol XL] 25 mg PO BID 60 Days Pantoprazole [Protonix EC Tab] 20 mg PO ACB #30 ect Potassium Chloride [K-Dur 20 mEq ER Tab] 20 meq PO BID #60 tab risperiDONE [RisperDAL Tab] 0.5 mg PO 1000,1600 #60 tab risperiDONE [RisperDAL Tab] 1 mg PO HS #30 tab SITagliptin [Januvia] 100 mg PO DAILY #30 - Follow Up Plan Condition: FAIR Disposition: HOME/ ROUTINE Instructions: Heart Failure (DC), Edema (DC) Additional Instructions: 1. Pt is to FU with PMD within 3-5 days 2. Pt is to take her blood sugars every days and keep a log for her PMD 3. Pt is to take abx as prescribed 4. Pt is welcomed to return to [facility] if develop any acute symptoms Referrals: Richardson Roman MD [Primary Care Provider] - <Dion COOPER,Mau - Last Filed: 09/22/16 17:33> Provider - Provider Date of Admission: 09/19/16 15:13 Attending physician: Mau Ashley MD Primary care physician: Richardson Roman MD Hospital Course - Lab Results Lab Results: Micro Results 09/19/16 17:35 Blood-Venous Blood Culture - Preliminary NO GROWTH AFTER 48 HOURS 09/19/16 17:10 Blood-Venous Blood Culture - Preliminary NO GROWTH AFTER 48 HOURS Most Recent Lab Values WBC 10.0 10^3/ul (4.5-11.0) 09/21/16 09:30 RBC 4.16 10^6/uL (3.5-6.1) 09/21/16 09:30 Hgb 10.4 gm/dL (12.0-16.0) L 09/21/16 09:30 Hct 31.7 % (36.0-48.0) L 09/21/16 09:30 MCV 76.2 fL (80.0-105.0) L 09/21/16 09:30 MCH 25.0 pg (25.0-35.0) 09/21/16 09:30 MCHC 32.8 g/dl (31.0-37.0) 09/21/16 09:30 RDW 19.4 % (11.5-14.5) H 09/21/16 09:30 Plt Count 343 10^3/uL (120.0-450.0) 09/21/16 09:30 MPV 10.0 fl (7.0-11.0) 09/21/16 09:30 Gran % 72.7 % (50.0-68.0) H 09/21/16 09:30 Lymph % (Auto) 19.5 % (22.0-35.0) L 09/21/16 09:30 [place] % (Auto) 5.6 % (1.0-6.0) 09/21/16 09:30 Eos % (Auto) 1.7 % (1.5-5.0) 09/21/16 09:30 Baso % (Auto) 0.5 % (0.0-3.0) 09/21/16 09:30 Gran # 7.29 (1.4-6.5) H 09/21/16 09:30 Lymph # 2.0 (1.2-3.4) 09/21/16 09:30 [place] # 0.6 (0.1-0.6) 09/21/16 09:30 Eos # 0.2 (0.0-0.7) 09/21/16 09:30 Baso # 0.05 K/mm3 (0.0-2.0) 09/21/16 09:30 ESR 60 mm/hr (0.0-20.0) H 09/20/16 07:30 PT 11.2 Seconds (9.9-11.8) 09/21/16 09:30 INR 1.04 (0.93-1.08) 09/21/16 09:30 APTT 28.5 Seconds (23.7-30.8) 09/21/16 09:30 Sodium 129 mmol/L (132-148) L 09/21/16 09:30 Potassium 3.7 mmol/L (3.6-5.0) 09/21/16 09:30 Chloride 90 mmol/L (98-107) L 09/21/16 09:30 Carbon Dioxide 30 mmol/L (21-33) 09/21/16 09:30 Anion Gap 13 (10-20) 09/21/16 09:30 BUN 16 mg/dL (7-21) 09/21/16 09:30 Creatinine 0.5 mg/dL (0.5-1.4) 09/21/16 09:30 Est GFR ( Amer) > 60 09/21/16 09:30 Est GFR (Non-Af Amer) > 60 09/21/16 09:30 POC Glucose (mg/dL) 373 mg/dL (65-110) H 09/21/16 11:35 Random Glucose 317 mg/dL (70-110) H* 09/21/16 09:30 Hemoglobin A1c 11.5 % (4.2-6.5) H 09/21/16 09:43 Calcium 9.1 mg/dL (8.4-10.5) 09/21/16 09:30 Total Bilirubin 0.9 mg/dL (0.2-1.3) 09/21/16 09:30 AST 27 U/L (15-39) 09/21/16 09:30 ALT 48 U/L (7-56) 09/21/16 09:30 Alkaline Phosphatase 117 U/L (38-133) 09/21/16 09:30 C-React Prot High Sens > 15.00 mg/L (1.00-3.00) H 09/20/16 07:30 NT-Pro-B Natriuret Pep 3360 pg/mL (0-450) H 09/19/16 16:15 Total Protein 7.2 g/dL (5.8-8.3) 09/21/16 09:30 Albumin 3.7 g/dL (3.0-4.8) 09/21/16 09:30 Globulin 3.4 gm/dL 09/21/16 09:30 Albumin/Globulin Ratio 1.1 (1.1-1.8) 09/21/16 09:30 Procalcitonin < 0.05 NG/ML (0.19-0.49) L 09/19/16 16:15 Urine Color Light yellow (YELLOW) 09/19/16 17:40 Urine Appearance Clear (CLEAR) 09/19/16 17:40 Urine pH 6.5 (4.7-8.0) 09/19/16 17:40 Ur Specific Theodore 1.010 (1.005-1.035) 09/19/16 17:40 Urine Protein Negative mg/dL (<30 mg/dL) 09/19/16 17:40 Urine Glucose (UA) >=1000 mg/dL (NEGATIVE) 09/19/16 17:40 Urine Ketones Negative mg/dL (NEGATIVE) 09/19/16 17:40 Urine Blood Negative (NEGATIVE) 09/19/16 17:40 Urine Nitrate Negative (NEGATIVE) 09/19/16 17:40 Urine Bilirubin Negative (NEGATIVE) 09/19/16 17:40 Urine Urobilinogen 0.2 E.U./dL (<1 E.U./dL) 09/19/16 17:40 Ur Leukocyte Esterase Negative Jason/uL (NEGATIVE) 09/19/16 17:40 Attending/Attestation - Attestation I have personally seen and examined this patient.: Yes I have fully participated in the care of the patient.: Yes I have reviewed all pertinent clinical information, including history, physical exam and plan: Yes Notes (Text): 09/22/16 17:30 Patient was seen and examined with medical insurance collector .Agreed with resident assessment and plan. Patient dyspnea and leg swelling is improving.Her leg cellulitis has also improved.Her blood sugars was running high.Hemoglobin 1AC 0n 06/24 was 12.3.She will be started on Leve[place] in addition to oral hypoglycemic agen.She was given diabetic education prior to discharge.She has been advised to keep record of blood sugars for her PCP as her medication may need to be adjusted . Management plan was discussed in detail with patient Education was provided.
[2016-09-21] MEDS ORDERED: Insulin Detemir 100 units/ml Vial (Levemir) SC SCH (16:30)
== END 2016-09-21 15:12 | disposition home or self-care (01) | DRG 544 ==
LOC: ED 12:56 → ERH 15:13 → 3RSO 18:15
PROVIDERS: ADMIT Internal Medicine; ATTEND Internal Medicine
DX: I11.0 Hypertensive heart disease with heart failure (principal); J18.9 Pneumonia, unspecified organism; L03.115 Cellulitis of right lower limb; I08.1 Rheumatic disorders of both mitral and tricuspid valves; I42.9 Cardiomyopathy, unspecified; J44.0 Chronic obstructive pulmonary disease with (acute) lower respiratory infection; L03.116 Cellulitis of left lower limb; F20.9 Schizophrenia, unspecified; I50.23 Acute on chronic systolic (congestive) heart failure; I73.9 Peripheral vascular disease, unspecified; E78.5 Hyperlipidemia, unspecified; F31.9 Bipolar disorder, unspecified; I25.10 Atherosclerotic heart disease of native coronary artery without angina pectoris; K21.9 Gastro-esophageal reflux disease without esophagitis; N63 Unspecified lump in breast; R06.00 Dyspnea, unspecified; Y95 Nosocomial condition; Z79.82 Long term (current) use of aspirin; Z85.72 Personal history of non-Hodgkin lymphomas; E03.9 Hypothyroidism, unspecified; E11.9 Type 2 diabetes mellitus without complications; Z86.711 Personal history of pulmonary embolism; Z86.718 Personal history of other venous thrombosis and embolism; Z87.01 Personal history of pneumonia (recurrent); Z87.891 Personal history of nicotine dependence; Z90.49 Acquired absence of other specified parts of digestive tract; Z91.14 Patient's other noncompliance with medication regimen; Z92.21 Personal history of antineoplastic chemotherapy; G43.909 Migraine, unspecified, not intractable, without status migrainosus

== ENCOUNTER 2016-10-13 12:20 | Inpatient (IN) | payer MEDICAID ==
--- NOTE | 2016-10-13 12:46 | ED PDOC ---
Arrival/HPI - General Time Seen by Provider: 10/13/16 12:22 Historian: Patient - History of Present Illness Narrative History of Present Illness (Text): 10/13/16 12:43 A 51 year old female, whose past medical history includes diabetes, hypertension , hypothyroidism, COPD, CHF on lasix, schizophrenia and bipolar disorder, presents to the emergency department complaining of abdominal pain for 1 week. Patient denies any relieving or exacerbating factors. Patient notes constipation but denies any fever, chills, nausea, vomiting, urinary symptoms, chest pain, palpitations, shortness of breath, cough or any other complaints. Patient regularly takes Aspirin and Eliquis. Pt reported to triage that her "medications were stolen in [place]" and she has not had her medications for several days. Reports feeling thirsty. Denies chest pain or shortness of breath currently. Reports that she moved her bowels earlier today but it was "very hard ". Denies bloody or dark stools. PMD: Dr. Roman Time/Duration: 1 week Symptom Course: Unchanged Quality: Other Context: Home Past Medical History - Provider Review Nursing Documentation Reviewed: Yes - Past History Past History: No Previous - Infectious Disease Hx of Infectious Diseases: None - Tetanus Immunization Tetanus Immunization: Unknown - Cardiac Hx Cardiac Disorders: Yes Hx Congestive Heart Failure: Yes Hx Hypertension: Yes Hx Pacemaker: No Hx Peripheral Edema: Yes Hx Peripheral Vascular Disease: (DVT TO LEFT ARM) - Pulmonary Hx Respiratory Disorders: Yes Hx Chronic Obstructive Pulmonary Disease (COPD): Yes Hx Emphysema: Yes Hx Pneumonia: Yes - Neurological Hx Neurological Disorder: No Hx Seizures: No - HEENT Hx HEENT Disorder: No - Renal Hx Renal Disorder: No - Endocrine/Metabolic Hx Endocrine Disorders: Yes Hx Diabetes Mellitus Type 2: Yes Hx Hypothyroidism: Yes - Hematological/Oncological Hx Blood Disorders: No - Integumentary Hx Dermatological Disorder: No Hx Basal Cell Carcinoma: No Hx Eczema: No Hx Melanoma: No Hx Psoriasis: No Hx Squamous Cell Carcinoma: No - Musculoskeletal/Rheumatological Hx Falls: No - Gastrointestinal Hx Gastrointestinal Disorders: Yes Hx Crohn's Disease: No Hx Diverticulitis: Yes Hx Gastroesophageal Reflux: Yes - Genitourinary/Gynecological Hx Genitourinary Disorders: No Hx Sexually Transmitted Diseases: No - Psychiatric Hx Anxiety: Yes Hx Bipolar Disorder: Yes Hx Depression: Yes Hx Substance Use: No - Past Surgical History Past Surgical History: No Previous - Surgical History Hx Appendectomy: No Hx Cholecystectomy: Yes Hx Coronary Stent: No Other/Comment: neck mass excision - Anesthesia Hx Anesthesia: Yes Hx Anesthesia Reactions: No Hx Malignant Hyperthermia: No - Suicidal Assessment Feels Threatened In Home Enviroment: No Family/Social History - Physician Review Nursing Documentation Reviewed: Yes Family/Social History: No Known Family HX Smoking Status: Former Smoker Hx Alcohol Use: No Hx Substance Use: No Substance used: cocaine Hx Substance Use Treatment: Yes (NARCOTICS ANONYMOUS) Allergies/Home Meds Allergies/Adverse Reactions: Allergies No Known Allergies Allergy (Verified 09/19/16 16:59) Review of Systems - Review of Systems Systems not reviewed;Unavailable: Acuity of Condition Constitutional: Fatigue. absent: Fevers, Night Sweats Eyes: absent: Vision Changes ENT: absent: Hearing Changes Respiratory: absent: SOB, Cough, Wheezing Cardiovascular: absent: Chest Pain, Palpitations, Edema, BECK Gastrointestinal: Abdominal Pain, Constipation. absent: Diarrhea, Nausea, Vomiting Genitourinary Female: absent: Dysuria, Frequency, Hematuria, Urine Output Changes Musculoskeletal: absent: Neck Pain Skin: absent: Rash Neurological: Dizziness. absent: Headache, Focal Weakness, Seizure Endocrine: Polyuria, Polydipsia Hemo/Lymphatic: absent: Easy Bleeding Physical Exam - Physical Exam Narrative Physical Exam (Text): Head: Atraumatic. Normocephalic. Eyes: PERRL. EOMI. Conjunctivae are pale. ENT: Mucous membranes are dry. No drooling. No pharyngeal erythema or exudates or abscess. Neck: Supple. Full ROM. No JVD. No lymphadenopathy. Cardiovascular: Tachycardic, systolic murmur noted. Distal pulses intact. Pulmonary/Chest: No respiratory distress. No accessory muscle usage. Diminished breath sounds at bases with some rales. Abdominal: Soft. Mild distension. Diffuse tenderness. No rebound, guarding, or rigidity. No organomegaly. Good bowel sounds. Rectal: no melena or gross bleeding Back: No CVA tenderness. No midline deformity or erythema. Extremities: Mild edema. No cyanosis. No clubbing. Full range of motion in all extremities. No calf tenderness. Skin: Skin is pale. No diaphoresis. No petechiae. Neurological: Alert, will follow commands and answer some questions. No facial droop, moves all four extremities with good strength, reflexes intact. Psychiatric: Poor eye contact. No obvious hallucinations. Is repetitive with certain answers, at times does not answer questions appropriately. Vital Signs Reviewed: Yes Vital Signs Temp Pulse Pulse Resp BP Pulse Ox 10/13/16 15:11 97.7 F 145 H 135 H 32 H 145/85 94 L 10/13/16 14:09 98.0 F 132 H 18 132/76 88 L 10/13/16 12:46 98.4 F 139 H 22 137/78 94 L Temperature: Afebrile Blood Pressure: Normal Pulse: Tachycardic Respiratory Rate: Normal Appearance: Positive for: Non-Toxic, Ill-Appearing, Uncomfortable, Other (Pale) Pain Distress: Moderate Mental Status: Positive for: other (at times will not answer questions directly , answers inappropriately at times) Medical Decision Making ED Course and Treatment: 10/13/16 12:42 Impression: A 51 year old female with abdominal pain and constipation. Her initial history I feel is limited due to acuity of her condition as well as possible superimposed component of mental health disease. She is tachycardic on initial exam with diffuse abdominal pain on examianation. Differential Diagnosis included but are not limited to: Myocardial infarction vs. Gastritis vs. Bowel obstruction vs. Constipation Plan: -- Abdomen CT w/o contrast emergently -- Chest xray -- EKG -- Labs -- Urinalysis -- IV morphine for pain, Pepcid -- Reassess and disposition Progress Notes: Patient on initial exam by me is tachycardic with diffuse severe abdominal pain. No gross bleeding noted. IV line established and patient ordered IV morphine, after risks/side effects were discussed. SHE DENIES CHEST PAIN OR SHORTNESS OF BREATH. Chest xray suggestive of pleural effusion, chf, cannot exclude infiltrate although patient DOES NOT COMPLAIN OF SHORTNESS OF BREATH. Her past cardiac history of congestive heart failure was noted, as well as most recently noted cardiology consultations and echocardiogram. CT ordered as patient with diffuse severe abdominal pain on serial exams. Report Date : 10/13/2016 14:35:08 PROCEDURE: CT Abdomen and Pelvis without intravenous contrast Dictator : Kal Turner MD IMPRESSION: Small moderate bilateral pleural effusion. Compressive atelectasis right lower and middle lobe and left lower lobe. Patchy opacity right lower lobe , atelectasis versus pneumonia. Stranding of the peripancreatic fat about the pancreatic head may indicate pancreatitis. Please correlate with clinical and laboratory evaluation. Mild mural thickening at the rectosigmoid junction. Possibly chronic muscular hypertrophy secondary to diverticular disease. Consider correlation with colonoscopy. Mild ascites. Fluid density 2.6 cm right adnexal mass, possibly cystic. Correlate with pelvic ultrasound examination. Status post cholecystectomy. Pedunculated left-sided uterine fibroid, 3.9 cm. Additional minor findings as above. Patient on re-exam noted to have improved pain, remains alert, awake, and not in respiratory distress. Labs reveal that she is significantly hyperglycemic, with labs consistent with DKA. Patient with elevated WBC, elevated lactate. CODE SEPSIS called as patient tachycardic, likely DKA. BP stable while in ED. IV antibiotics initated and earth science technician consulted. Patient appears significantly dehydrated, iv fluid boluses ordered with consultation with earth science technician, as hydration critical to patient given likely DKA although requires close monitoring of respiratory and cardiac status given past cardiac history. CT readings reviewed, case reviewed with Dr. Liu, patient admitted to ICU. Insulin bolus ordered for hyperkalemia as well as insulin drip. Abnormal EKG noted, although LBBB previously noted and patient continued to deny chest pain or sob in ED. Care endorsed to ICU team, case discussed with hospitalist accepts admission. 10/13/16 20:22 - Critical Care Critical Care Minutes: 60 minutes - Lab Interpretations Lab Results: 10/13/16 13:20 10/13/16 13:20 Lab Results 10/13/16 13:20: Digoxin < 0.4 L 10/13/16 13:20: PT 12.0 H, INR 1.11 H, APTT 21.7 L 10/13/16 13:20: WBC 17.6 H D, RBC 4.76, Hgb 12.6, Hct 39.9, MCV 83.8, MCH 26.5, MCHC 31.6, RDW 22.8 H, Plt Count 480 H, MPV 11.5 H, Gran % 84.2 H, Lymph % (Auto ) 10.7 L, [place] % (Auto) 4.9, Eos % (Auto) 0.0 L, Baso % (Auto) 0.2, Gran # 14.81 H, Lymph # 1.9, Loí[place] # 0.9 H, Eos # 0.0, Baso # 0.03 10/13/16 13:20: Sodium 123 L, Chloride 88 L, Potassium 5.4 H, Carbon Dioxide 12 L, Anion Gap 28 H, BUN 19, Creatinine 0.6, Est GFR ( Amer) > 60, Est GFR (Non-Af Amer) > 60, Random Glucose 1090 H* D, Calcium 9.7, Total Bilirubin 1.0, AST 66 H, ALT 57 H, Alkaline Phosphatase 158 H, Lactate Dehydrogenase 558, Total Creatine Kinase 34 L, Troponin I < 0.01 D, NT-Pro-B Natriuret Pep 8990 H , Total Protein 7.1, Albumin 3.9, Globulin 3.2, Albumin/Globulin Ratio 1.2, Amylase 44, Lipase 58 10/13/16 13:20: pO2 135 H, VBG pH 7.28 L, VBG pCO2 31.0 L, VBG HCO3 14.6 L, VBG Total CO2 15.6 L, VBG O2 Sat (Calc) 99.4 H, VBG Base Excess -10.9 L, VBG Potassium 6.3 H*, Sodium 124.0 L, Chloride 85.0 L, Glucose > 750 H* D, Lactate 10.0 H*, FiO2 21.0, Venous Blood Potassium 6.3 H* - RAD Interpretation Radiology Orders: 10/13/16 12:52 ABD & PELVIS W/O PO OR IV CONT [CT] Stat 10/13/16 12:53 CHEST PORTABLE [RAD] Stat Forming Machine Upkeep Mechanic: Radiologist - EKG Interpretation EKG Interpretation (Text): sinus tachycardia with left bundle branch block, possible left atrial enlargement Interpreted by ED Physician: Yes Type: 12 lead EKG Comparison: Similar to previous EKG - Medication Orders Current Medication Orders: Insulin Human Regular 100 (units/ Sodium Chloride) 100 mls @ 12 mls/hr IV .Q8H20M PRN; Protocol; 12 UNITS/HR PRN Reason: TITRATE PER MD ORDER Last Admin: 10/13/16 14:40 Dose: 12 mls/hr Doxycycline Hyclate 100 mg/ (Sodium Chloride) 100 mls @ 100 mls/hr IVPB Q12 IZABELA PRN Reason: Protocol Vancomycin HCl 1.5 gm/ Sodium (Chloride) 500 mls @ 167 mls/hr IVPB Q12H IZABELA PRN Reason: Protocol Piperacillin Sod/Tazobactam Sod (Zosyn 3.375 In Ns 100ml) 100 mls @ 200 mls/hr IVPB Q6 IZABELA PRN Reason: Protocol Stop: 10/14/16 00:29 Fentanyl Citrate (Fentanyl Citrate/Sodium Chloride 1 Mg/100 Ml) 1,000 mcg in 100 mls @ 7.5 mls/hr IV .[id number] PRN; Protocol; 75 MCG/HR PRN Reason: TITRATE PER MD ORDER Heparin Sodium/Dextrose (Heparin 25,000 Units/250ml In D5w) 25,000 units in 250 mls @ 14.043 mls/hr IV .[id number] PRN; Protocol; 18 UNITS/KG/HR PRN Reason: ADJUST RATE PER PROTOCOL Potassium Chloride (Potassium Chloride 10 Meq/100 Ml) 10 meq in 100 mls @ 100 mls/hr IVPB Q2H IZABELA Stop: 10/13/16 23:14 Potassium Acetate 20 meq/ (Sodium Chloride) 1,010 mls @ 200 mls/hr IV .Q5H3M IZABELA Metoprolol Tartrate (Lopressor) 5 mg IVP Q6H IZABELA Last Admin: 10/13/16 16:15 Dose: 5 mg Morphine Sulfate (Morphine) 2 mg IVP Q6H PRN PRN Reason: Pain, Mild (1-3) Last Admin: 10/13/16 16:29 Dose: 2 mg Pantoprazole Sodium (Protonix Inj) 40 mg IVP 0600 IZABELA Last Admin: 10/13/16 16:31 Dose: 40 mg Discontinued Medications Famotidine (Pepcid) 20 mg IVP STAT STA Stop: 10/13/16 12:54 Last Admin: 10/13/16 13:41 Dose: 20 mg Piperacillin Sod/Tazobactam Sod (Zosyn 4.5 Gm In Ns 100ml) 4.5 gm in 100 mls @ 200 mls/hr IVPB STAT STA PRN Reason: Protocol Stop: 10/13/16 14:28 Last Admin: 10/13/16 14:36 Dose: 200 mls/hr Sodium Chloride (Sodium Chloride 0.9%) 1,000 mls @ 1,000 mls/hr IV .Q1H STA Stop: 10/13/16 15:03 Last Admin: 10/13/16 14:37 Dose: 1,000 mls/hr Vancomycin HCl (Vancomycin 1gm) 1 gm in 250 mls @ 167 mls/hr IVPB STAT STA PRN Reason: Protocol Stop: 10/13/16 16:16 Last Admin: 10/13/16 16:27 Dose: 167 mls/hr Sodium Chloride (Sodium Chloride 0.9%) 1,000 mls @ 1,000 mls/hr IV .Q1H STA Stop: 10/13/16 16:09 Last Admin: 10/13/16 15:11 Dose: 1,000 mls/hr Sodium Chloride (Sodium Chloride 0.9%) 1,000 mls @ 200 mls/hr IV .Q5H IZABELA Last Admin: 10/13/16 16:17 Dose: 200 mls/hr Vancomycin HCl 1.5 gm/ Sodium (Chloride) 250 mls @ 167 mls/hr IVPB Q12H IZABELA PRN Reason: Protocol Propofol (Diprivan) Confirm Administered Dose 1,000 mg in 100 mls @ ud .ROUTE .STK-MED ONE Stop: 10/13/16 17:38 Insulin Human Regular (Humulin R) 12 units IV STAT STA Stop: 10/13/16 14:15 Last Admin: 10/13/16 14:37 Dose: 12 units Morphine Sulfate (Morphine) 2 mg IVP STAT STA Stop: 10/13/16 12:54 Last Admin: 10/13/16 13:40 Dose: 2 mg - Scribe Statement The provider has reviewed the documentation as recorded by the Scribe Paula Ulloa Provider Scribe Attestation: All medical record entries made by the Scribe were at my direction and personally dictated by me. I have reviewed the chart and agree that the record accurately reflects my personal performance of the history, physical exam, medical decision making, and the department course for this patient. I have also personally directed, reviewed, and agree with the discharge instructions and disposition. Disposition/Present on Arrival - Present on Arrival Any Indicators Present on Arrival: Yes History of DVT/PE: No History of Uncontrolled Diabetes: Yes Urinary Catheter: No History Surgical Site Infection Following: None - Disposition Have Diagnosis and Disposition been Completed?: Yes Diagnosis: DKA (diabetic ketoacidoses), Abdominal pain, Sepsis, Leukocytosis, Hyponatremia , Pleural effusion, Elevated lactic acid level, Hyperglycemia Disposition: HOSPITALIZED Disposition Time: 13:30 Patient Plan: Admission, ICU Patient Problems: Current Active Problems Problem Status Onset Abdominal pain Acute DKA (diabetic ketoacidoses) Acute Elevated lactic acid level Acute Hyponatremia Acute Leukocytosis Acute Pleural effusion Acute Sepsis Acute Condition: CRITICAL
[2016-10-13] MEDS ORDERED: Morphine 2 mg/ml ISec IVP STA (12:53)
[2016-10-13 13:39] LABS: BASO # 0.03 K/mm3 (0.0-2.0); BASO % 0.2 % (0.0-3.0); GRAN # 14.81 (1.4-6.5); GRAN % 84.2 % (50.0-68.0); HEMOGLOBIN 12.6 gm/dL (12.0-16.0); LYMPH # 1.9 (1.2-3.4); LYMPH % 10.7 % (22.0-35.0); MEAN CELL VOLUME 83.8 fL (80.0-105.0); MEAN CORPUSCULAR HEMOGLOBIN 26.5 pg (25.0-35.0); MEAN CORPUSCULAR HGB CONC 31.6 g/dl (31.0-37.0); MEAN PLATELET VOLUME 11.5 fl (7.0-11.0); MONO # 0.9 (0.1-0.6); MONO % 4.9 % (1.0-6.0); PLATELET COUNT 480 10^3/uL (120.0-450.0); RBC 4.76 10^6/uL (3.5-6.1); RED CELL DISTRIBUTION WIDTH 22.8 % (11.5-14.5); WHITE BLOOD COUNT 17.6 10^3/ul (4.5-11.0)
[2016-10-13 13:42] LABS: VENOUS BLOOD GAS BASE EXCESS -10.9 mmol/L (0.0-2.0); VENOUS BLOOD GAS PO2 135 mm/Hg (30-55); VENOUS BLOOD PH 7.28 (7.32-7.43)
[2016-10-13 13:46] LABS: ALB/GLOB RATIO 1.2 (1.1-1.8); ALBUMIN 3.9 g/dL (3.0-4.8); ALT/SGPT 57 U/L (7-56); AMYLASE 44 U/L (35-125); AST/SGOT 66 U/L (15-39); BLOOD UREA NITROGEN 19 mg/dL (7-21); CALCIUM 9.7 mg/dL (8.4-10.5); GFR AFRICAN-AMERICAN > 60; GFR NON-AFRICAN AMERICAN > 60; INR 1.11 (0.93-1.08); LIPASE 58 U/L (23-300); PARTIAL THROMBOPLASTIN TIME 21.7 Seconds (23.7-30.8)
[2016-10-13 13:58] LABS: B-TYPE NATRIURETIC PEPTIDE 8990 pg/mL (0-450)
[2016-10-13] MEDS ORDERED: Piperacill/Tazo 4.5gm in NS 4.5 GM/100 ML BAG IVPB STA (13:59)
[2016-10-13 14:04] LABS: TROPONIN I < 0.01 ng/mL
[2016-10-13] MEDS ORDERED: Insulin Regular 1 UNITS/0.01 ML ML IV STA (14:14)
[2016-10-13 14:35] LABS: URINE BILIRUBIN NEGATIVE (NEGATIVE); URINE BLOOD TRACE-INTACT (NEGATIVE); URINE GLUCOSE (UA) >=1000 mg/dL (NEGATIVE); URINE LEUKOCYTE ESTERASE TRACE Leu/uL (NEGATIVE); URINE NITRATE NEGATIVE (NEGATIVE); URINE PROTEIN NEGATIVE mg/dL (<30 mg/dL); URINE UROBILINOGEN 0.2 E.U./dL (<1 E.U./dL)
--- NOTE | 2016-10-13 14:36 | CT ---
PROCEDURE: CT Abdomen and Pelvis without intravenous contrast HISTORY: severe diffuse abdominal pain COMPARISON: 05/31/2016 TECHNIQUE: Without contrast.. Contrast Dose: 0 Radiation dose: Total exam DLP = 561.51 mGy-cm. This CT exam was performed using one or more of the following dose reduction techniques: Automated exposure control, adjustment of the mA and/or kV according to patient size, and/or use of iterative reconstruction technique. FINDINGS: LOWER THORAX: Bilateral pleural effusion, grossly unchanged in extent from prior CT examination. Left lower lobe partial atelectasis, likely compressive. Right lower lobe partial atelectasis, likely compressive. Partial atelectasis right middle lobe, likely compressive. Patchy opacity in right lower lobe may reflect atelectasis or pneumonia. Please correlate clinically. LIVER: Unremarkable. No gross lesion or ductal dilatation. GALLBLADDER AND BILE DUCTS: Status post cholecystectomy PANCREAS: Infiltration of the peripancreatic around the pancreatic head. Possible pancreatitis. No pancreatic mass or ductal dilatation. No velvet peripancreatic fluid collection. SPLEEN: Mildly atrophic. ADRENALS: Unremarkable. No mass. KIDNEYS AND URETERS: Unremarkable. No hydronephrosis. No solid mass. VASCULATURE: Unremarkable. No aortic aneurysm. BOWEL: Mild retained feces. No bowel obstruction. Mild mural thickening of a segment of colon at the junction of the descending and sigmoid colon, nonspecific. Possible chronic muscular hypertrophy from diverticular disease. No evidence of diverticulitis. Recommend correlation with colonoscopy on a nonemergent basis to exclude neoplasm. APPENDIX: Unremarkable. Normal appendix. PERITONEUM: Mild fluid in cul-de-sac. LYMPH NODES: Unremarkable. No enlarged lymph nodes. BLADDER: Unremarkable. REPRODUCTIVE: Uterus significant for pedunculated left sided fibroid, 3.9 cm. There is a right adnexal fluid density mass, 2.6 cm. Possible ovarian cyst. Correlate with ultrasound examination. BONES: Mild thoracolumbar dextroscoliosis. No acute fracture. Incidentally noted bilateral spondylolysis. OTHER FINDINGS: None. IMPRESSION: Small moderate bilateral pleural effusion. Compressive atelectasis right lower and middle lobe and left lower lobe. Patchy opacity right lower lobe, atelectasis versus pneumonia. Stranding of the peripancreatic fat about the pancreatic head may indicate pancreatitis. Please correlate with clinical and laboratory evaluation. Mild mural thickening at the rectosigmoid junction. Possibly chronic muscular hypertrophy secondary to diverticular disease. Consider correlation with colonoscopy. Mild ascites. Fluid density 2.6 cm right adnexal mass, possibly cystic. Correlate with pelvic ultrasound examination. Status post cholecystectomy. Pedunculated left-sided uterine fibroid, 3.9 cm. Additional minor findings as above.
[2016-10-13] MEDS: Sodium Chloride 0.9% 1,000 ML IV STA (14:37)
[2016-10-13] MEDS: Insulin Regular 100 UNITS in Sodium Chloride 0.9% 99 ML IV PRN ×2 (14:40→22:30)
[2016-10-13] MEDS ORDERED: Vancomycin 1gm in NS 250ml 1 GM/250 ML BAG IVPB STA (14:47)
[2016-10-13 14:52] LABS: URINE APPEARANCE CLEAR (CLEAR); URINE COLOR LIGHT YELLOW (YELLOW)
[2016-10-13 14:54] LABS: URINE BACTERIA FEW (NEG); URINE EPITHELIAL CELLS 0 - 2 /hpf (0-5); URINE RBC 0 - 2 /hpf (0-2); URINE WBC 0 - 2 /hpf (0-6)
[2016-10-13 14:59] LABS: ARTERIAL BLOOD GAS HCO3 13.6 mmol/L (21-28); ARTERIAL BLOOD GAS O2 SAT 96.8 % (95-98); ARTERIAL BLOOD GAS PCO2 29 mm/Hg (35-45); ARTERIAL BLOOD GAS PH 7.28 (7.35-7.45); ARTERIAL BLOOD GAS TCO2 14.5 mmol.L (22-28)
[2016-10-13] MEDS ORDERED: Sodium Chloride 0.9% 1,000 ML IV STA (15:10)
[2016-10-13] MEDS ORDERED: Sodium Chloride 0.9% 1,000 ML IV SCH (15:30)
--- NOTE | 2016-10-13 15:46 | RAD ---
HISTORY: abdominal pain COMPARISON: 09/19/2016 FINDINGS: LUNGS: No active pulmonary disease. PLEURA: Moderate bilateral pleural effusions CARDIOVASCULAR: Normal. OSSEOUS STRUCTURES: No significant abnormalities. VISUALIZED UPPER ABDOMEN: Normal. OTHER FINDINGS: None. IMPRESSION: Moderate bilateral pleural effusions
--- NOTE | 2016-10-13 15:46 | PCM.SEPTIC ---
Sepsis Progress Note - Reassessment Type Reassessment Type: Non-invasive reassessment - Non Invasive Reassessment Were the most recent vital sign reviewed: Yes Vital Sign (Latest): Temp Pulse Resp BP Pulse Ox 98.0 F 132 H 18 132/76 88 L 10/13/16 14:09 10/13/16 14:09 10/13/16 14:09 10/13/16 14:09 10/13/16 14:09 Cardiovascular: Yes: Tachycardia Respiratory: Yes: Decreased Breath Sounds Capillary Refill: Delayed Pulses: Decreased Radial, Decreased Dorsalis Pedis, Decreased Posterior Tibialis Skin: Dry
[2016-10-13 15:57] LABS: VENOUS BLOOD GAS BASE EXCESS -13.4 mmol/L (0.0-2.0); VENOUS BLOOD GAS PO2 52 mm/Hg (30-55)
[2016-10-13 15:58] LABS: GFR AFRICAN-AMERICAN > 60; GFR NON-AFRICAN AMERICAN > 60
--- NOTE | 2016-10-13 16:11 | CP.PCM.HP ---
<SAROJ HOLCOMB - Last Filed: 10/13/16 17:06> History of Present Illness - History of Present Illness History of Present Illness: Ms. Penn is a 51 y/o female with PMHx of DM2 on Insulin, CHF on Lasix, HTN, chronic pulmonary effusion, HTN, DVT, PE, hypothyroidism, schizophrenia and Bipolar disorder presented to the ED with complaints of abdominal pain x1week. Nuclear Cardiac test in 04/2016 showed EF 55% but Echo in 03/2016 reveals EF 30% . Patient was recently admitted here for CHF exacerbation, cellulitis and medication non-compliance. When asked, the pt stated that she has not been taking her insulin regularly. Per ED note, the patient complains of constipation , but denies chest pain, fevers, chills, n/v, or urinary symptoms. When seen by the hospitalist team, the patient was being uncooperative and not responding to questions. She is followed by Dr. Roman - PCP, Dr. Orozco - Cardiology PMH: DM2 (insulin-dependent), systolic HF, HTN, non-ischemic cardiomyopathy, chronic pleural effusion, DVT, DVT, PE, hypothyroidism, schizophrenia, lymphoma s/p chemotherapy PSH: cholecystectomy Fhx: denies hx cardiac disease Social hx: denies tobacco use, etoh, illict drugs. Allergies: NKDA Present on Admission - Present on Admission Any Indicators Present on Admission: Yes History of DVT/PE: Yes History of Uncontrolled Diabetes: Yes Review of Systems - Review of Systems Systems not reviewed;Unavailable: Uncooperative Past Patient History - Infectious Disease Hx of Infectious Diseases: None - Tetanus Immunizations Tetanus Immunization: Unknown - Past Medical History & Family History Past Medical History?: Yes - Past Social History Smoking Status: Former Smoker - CARDIAC Hx Cardiac Disorders: Yes Hx Congestive Heart Failure: Yes Hx Hypertension: Yes Hx Pacemaker: No Hx Peripheral Edema: Yes Hx Peripheral Vascular Disease: (DVT TO LEFT ARM) - PULMONARY Hx Respiratory Disorders: Yes Hx Chronic Obstructive Pulmonary Disease (COPD): Yes Hx Emphysema: Yes Hx Pneumonia: Yes - NEUROLOGICAL Hx Neurological Disorder: No Hx Seizures: No - HEENT Hx HEENT Problems: No - RENAL Hx Chronic Kidney Disease: No - ENDOCRINE/METABOLIC Hx Endocrine Disorders: Yes Hx Diabetes Mellitus Type 2: Yes Hx Hypothyroidism: Yes - HEMATOLOGICAL/ONCOLOGICAL Hx Blood Disorders: No - INTEGUMENTARY Hx Dermatological Problems: No Hx Basil Cell: No Hx Eczema: No Hx Melanoma: No Hx Psoriasis: No Hx Squamous Cell: No - MUSCULOSKELETAL/RHEUMATOLOGICAL Hx Falls: No - GASTROINTESTINAL Hx Gastrointestinal Disorders: Yes Hx Crohn's Disease: No Hx Diverticulitis: Yes Hx Gastroesophageal Reflux: Yes - GENITOURINARY/GYNECOLOGICAL Hx Genitourinary Disorders: No Hx Sexually Transmitted Disorders: No - PSYCHIATRIC Hx Anxiety: Yes Hx Bipolar Disorder: Yes Hx Depression: Yes Hx Schizophrenia: Yes Hx Substance Use: No - SURGICAL HISTORY Hx Appendectomy: No Hx Cholecystectomy: Yes Hx Coronary Stent: No Other/Comment: neck mass excision - ANESTHESIA Hx Anesthesia: Yes Hx Anesthesia Reactions: No Hx Malignant Hyperthermia: No Meds Allergies/Adverse Reactions: Allergies Allergy/AdvReac Type Severity Reaction Status Date / Time No Known Allergies Allergy Verified 09/19/16 16:59 Physical Exam - Constitutional Appears: Toxic, Unkempt, Confused, Chronically Ill - Head Exam Head Exam: ATRAUMATIC, NORMAL INSPECTION, NORMOCEPHALIC - Eye Exam Additional comments: could not examine - Respiratory Exam Respiratory Exam: NORMAL BREATHING PATTERN - Cardiovascular Exam Cardiovascular Exam: RRR - GI/Abdominal Exam GI & Abdominal Exam: Normal Bowel Sounds. absent: Tenderness - Extremities Exam Extremities exam: Positive for: pedal edema (2+) - Neurological Exam Neurological exam: Altered Additional comments: pt awake but would not respond to questions, cannot assess if oriented - Psychiatric Exam Psychiatric exam: Agitated - Skin Skin Exam: Normal Color, Warm Results - Vital Signs Recent Vital Signs: Last Vital Signs Temp 98.0 F 10/13/16 14:09 Pulse 132 H 10/13/16 14:09 Resp 18 10/13/16 14:09 BP 132/76 10/13/16 14:09 Pulse Ox 88 L 10/13/16 14:09 - Labs Result Diagrams: 10/13/16 13:20 10/13/16 15:42 Labs: Laboratory Results - last 24 hr 10/13/16 10/13/16 10/13/16 14:20 14:56 15:42 pCO2 29 L pO2 84.0 HCO3 13.6 L ABG pH 7.28 L ABG Total CO2 14.5 L ABG O2 Saturation 96.8 ABG Base Excess -11.7 L ABG Potassium 3.9 Sodium 131.0 L 131 L Chloride 98.0 95 L Glucose > 750 H* Lactate 7.5 H* FiO2 36.0 Potassium 3.9 Carbon Dioxide 14 L Anion Gap 26 H BUN 18 Creatinine 0.6 Est GFR ( Amer) > 60 Est GFR (Non-Af Amer) > 60 Random Glucose Calcium 9.0 Arterial Blood Potassium 3.9 Urine Color Light yellow Urine Appearance Clear Urine pH 6.0 Ur Specific [place] <= 1.005 Urine Protein Negative Urine Glucose (UA) >=1000 Urine Ketones Negative Urine Blood Trace-intact H Urine Nitrate Negative Urine Bilirubin Negative Urine Urobilinogen 0.2 Ur Leukocyte Esterase Trace H Urine RBC 0 - 2 Urine WBC 0 - 2 Ur Epithelial Cells 0 - 2 Urine Bacteria Few Urine Other Uyeast Assessment & Plan - Assessment and Plan (Free Text) Assessment: Ms. Penn is a 51 y/o female with PMHx of DM2, CHF (EF 30% in 03/2016), HTN, chronic pulmonary effusion, HTN, DVT, PE, hypothyroidism, schizophrenia and Bipolar disorder presented to the ED with complaints of abdominal pain x1week. 1. DKA vs HHS 2. Sepsis 3. Abdominal pain 4. CHF 5. Hyponatremia 6. HTN 7. Hypothyroid 8. Schizophrenia & Bipolar disorder Plan: 1. DKA vs HHS -continue NS @200ml/hr until glucose <250 -continue insulin drip until anion gap closes -check BMP q4h, -check finger sticks q1h 2. Sepsis -Start pt on Vancomycin 1.5gm and Zosyn 3.375gm -obtain blood and urine cxs -obtain procalcitonin level -ID Consult (Dr. Faria) for sepsis 3. Abdominal pain -GI consult (Dr. Rice) r/o pancreatitis -Surgery consult (Dr. Philippe) r/o colitis 4. CHF -monitor I/O -daily weight check -consider starting Lasix once anion gap closes and pt improves 5. Hyponatremia -corrected Na: 143 6. HTN -continue lopressor 7. Hypothyroid -start Synthroid 125mcg when pt stabilizes 8. Schizophrenia & Bipolar disorder -start Risperidone 0.5mg PO when pt stabilizes Diet: GI/DVT ppx: protonix/heparin Patient seen, discussed and evaluated with attending, Dr. Perry Holcomb, PGY1 - Date & Time Date: 10/13/16 Time: 17:04 <Amador,Irfana B - Last Filed: 10/17/16 13:21> Results - Vital Signs Recent Vital Signs: Last Vital Signs Temp 98.4 F 10/17/16 04:00 Pulse 109 H 10/17/16 10:20 Resp 18 10/17/16 07:40 BP 98/70 L 10/17/16 10:20 Pulse Ox 99 10/17/16 07:10 - Labs Result Diagrams: 10/17/16 04:50 10/17/16 04:50 Labs: Laboratory Results - last 24 hr 10/14/16 10/16/16 10/16/16 14:15 10:53 12:45 WBC RBC Hgb Hct MCV MCH MCHC RDW Plt Count MPV Gran % Lymph % (Auto) [place] % (Auto) Eos % (Auto) Baso % (Auto) Gran # Lymph # [place] # Eos # Baso # PT INR APTT 111.5 H* Sodium Potassium Chloride Carbon Dioxide Anion Gap BUN Creatinine Est GFR ( Amer) Est GFR (Non-Af Amer) POC Glucose (mg/dL) 337 H Random Glucose Calcium Phosphorus Magnesium Total Bilirubin AST ALT Alkaline Phosphatase Total Protein Albumin Globulin Albumin/Globulin Ratio Pleural Total Protein <3.0 Pleural LDH 64 Pleural Glucose 320 10/16/16 10/16/16 10/16/16 14:21 16:13 21:15 WBC RBC Hgb Hct MCV MCH MCHC RDW Plt Count MPV Gran % Lymph % (Auto) [place] % (Auto) Eos % (Auto) Baso % (Auto) Gran # Lymph # [place] # Eos # Baso # PT INR APTT 38.7 H Sodium Potassium Chloride Carbon Dioxide Anion Gap BUN Creatinine Est GFR ( Amer) Est GFR (Non-Af Amer) POC Glucose (mg/dL) 345 H 278 H Random Glucose Calcium Phosphorus Magnesium Total Bilirubin AST ALT Alkaline Phosphatase Total Protein Albumin Globulin Albumin/Globulin Ratio Pleural Total Protein Pleural LDH Pleural Glucose 10/16/16 10/17/16 10/17/16 22:06 03:20 03:20 WBC RBC Hgb Hct MCV MCH MCHC RDW Plt Count MPV Gran % Lymph % (Auto) [place] % (Auto) Eos % (Auto) Baso % (Auto) Gran # Lymph # [place] # Eos # Baso # PT 16.0 H INR 1.48 H APTT 128.4 H* Sodium Potassium Chloride Carbon Dioxide Anion Gap BUN Creatinine Est GFR ( Amer) Est GFR (Non-Af Amer) POC Glucose (mg/dL) 279 H Random Glucose Calcium Phosphorus Magnesium Total Bilirubin AST ALT Alkaline Phosphatase Total Protein Albumin Globulin Albumin/Globulin Ratio Pleural Total Protein Pleural LDH Pleural Glucose 10/17/16 10/17/16 10/17/16 04:50 04:50 08:20 WBC 23.0 H RBC 4.97 Hgb 12.9 Hct 39.2 MCV 78.9 L MCH 26.0 MCHC 32.9 RDW 21.5 H Plt Count 447 MPV 11.1 H Gran % 76.9 H Lymph % (Auto) 12.6 L [place] % (Auto) 9.7 H Eos % (Auto) 0.6 L Baso % (Auto) 0.2 Gran # 17.68 H Lymph # 2.9 [place] # 2.2 H Eos # 0.1 Baso # 0.04 PT INR APTT Sodium 135 Potassium 3.7 Chloride 104 Carbon Dioxide 17 L Anion Gap 18 BUN 39 H Creatinine 1.2 Est GFR ( Amer) 57 Est GFR (Non-Af Amer) 47 POC Glucose (mg/dL) 269 H Random Glucose 215 H Calcium 8.0 L Phosphorus 3.7 Magnesium 2.1 Total Bilirubin 1.0 AST 679 H ALT 1415 H Alkaline Phosphatase 493 H Total Protein 6.3 Albumin 3.1 Globulin 3.1 Albumin/Globulin Ratio 1.0 L Pleural Total Protein Pleural LDH Pleural Glucose 10/17/16 11:46 WBC RBC Hgb Hct MCV MCH MCHC RDW Plt Count MPV Gran % Lymph % (Auto) [place] % (Auto) Eos % (Auto) Baso % (Auto) Gran # Lymph # [place] # Eos # Baso # PT INR APTT Sodium Potassium Chloride Carbon Dioxide Anion Gap BUN Creatinine Est GFR ( Amer) Est GFR (Non-Af Amer) POC Glucose (mg/dL) 369 H Random Glucose Calcium Phosphorus Magnesium Total Bilirubin AST ALT Alkaline Phosphatase Total Protein Albumin Globulin Albumin/Globulin Ratio Pleural Total Protein Pleural LDH Pleural Glucose Attending/Attestation - Attestation I have personally seen and examined this patient.: Yes I have fully participated in the care of the patient.: Yes I have reviewed all pertinent clinical information: Yes Notes (Text): I have seen and examined the patient at bedside. 51 year old female with history of PE on eliquis, non compliant, sever LV dysfunction due to previous chemo and XRT for lymphoma, now presented with diffuse abdominal pain and confusion and found to be in HONK and code sepis was called most likely due to HCAP vs abdominal etiology( Suspected colitis on CT scan). On IVF, insulin drip , zosyn and vancomycin. F/u ID and GI consult. Dr Annmarie Amador
[2016-10-13 16:13] LABS: BLOOD UREA NITROGEN 18 mg/dL (7-21)
[2016-10-13] MEDS: Metoprolol 1 mg/ml Inj IVP SCH ×2 (16:15→22:00)
[2016-10-13] MEDS: Morphine 2 mg/ml ISec IVP PRN (16:29)
--- NOTE | 2016-10-13 16:45 | CP.PCM.CON ---
History of Present Illness - History of Present Illness History of Present Illness: General Surgery Resident: Sarah Attending: Denae HPI: Patient is a 51 y/o Diabetic WF who presented to the ER with a CC of abdominal pain for 1 week. She denies any relieving or exacerbating factors. She is a very poor historian but does admit to using alcohol. She complains of constipation and nausea. Denies fever, chills, vomiting, diarrhea, chest pain, shortness of breath. PMH: * Diabetes * Hypertension * Hypothyroidism * CHF * COPD * Schizophrenia * Bipolar Disorder Meds: Lasix, ASA, Eliquis Allergies: NKA Review of Systems - Review of Systems Systems not reviewed;Unavailable: Altered Mental Status, Uncooperative - Constitutional Constitutional: As Per HPI - EENT Eyes: As Per HPI Ears: As Per HPI Nose/Mouth/Throat: As Per HPI - Cardiovascular Cardiovascular: As Per HPI - Respiratory Respiratory: As Per HPI - Gastrointestinal Gastrointestinal: Abdominal Pain, Constipation, Nausea. absent: Diarrhea, Vomiting Past Patient History - Infectious Disease Hx of Infectious Diseases: None - Tetanus Immunizations Tetanus Immunization: Unknown - Past Medical History & Family History Past Medical History?: Yes - Past Social History Smoking Status: Former Smoker Alcohol: Other (admits to drinking but was unable to quantify) - CARDIAC Hx Cardiac Disorders: Yes Hx Congestive Heart Failure: Yes Hx Hypertension: Yes Hx Pacemaker: No Hx Peripheral Edema: Yes Hx Peripheral Vascular Disease: (DVT TO LEFT ARM) - PULMONARY Hx Respiratory Disorders: Yes Hx Chronic Obstructive Pulmonary Disease (COPD): Yes Hx Emphysema: Yes Hx Pneumonia: Yes - NEUROLOGICAL Hx Neurological Disorder: No Hx Seizures: No - HEENT Hx HEENT Problems: No - RENAL Hx Chronic Kidney Disease: No - ENDOCRINE/METABOLIC Hx Endocrine Disorders: Yes Hx Diabetes Mellitus Type 2: Yes Hx Hypothyroidism: Yes - HEMATOLOGICAL/ONCOLOGICAL Hx Blood Disorders: No - INTEGUMENTARY Hx Dermatological Problems: No Hx Basil Cell: No Hx Eczema: No Hx Melanoma: No Hx Psoriasis: No Hx Squamous Cell: No - MUSCULOSKELETAL/RHEUMATOLOGICAL Hx Falls: No - GASTROINTESTINAL Hx Gastrointestinal Disorders: Yes Hx Constipation: Yes Hx Crohn's Disease: No Hx Diverticulitis: Yes Hx Gastroesophageal Reflux: Yes Hx Nausea: Yes - GENITOURINARY/GYNECOLOGICAL Hx Genitourinary Disorders: No Hx Sexually Transmitted Disorders: No - PSYCHIATRIC Hx Anxiety: Yes Hx Bipolar Disorder: Yes Hx Depression: Yes Hx Schizophrenia: Yes Hx Substance Use: No - SURGICAL HISTORY Hx Appendectomy: No Hx Cholecystectomy: Yes Hx Coronary Stent: No Other/Comment: neck mass excision - ANESTHESIA Hx Anesthesia: Yes Hx Anesthesia Reactions: No Hx Malignant Hyperthermia: No Meds Allergies/Adverse Reactions: Allergies Allergy/AdvReac Type Severity Reaction Status Date / Time No Known Allergies Allergy Verified 09/19/16 16:59 - Medications Medications: Current Medications Heparin Sodium (Porcine) (Heparin) 5,000 units SC Q12 IZABELA PRN Reason: Protocol Insulin Human Regular 100 (units/ Sodium Chloride) 100 mls @ 12 mls/hr IV .Q8H20M PRN; Protocol; 12 UNITS/HR PRN Reason: TITRATE PER MD ORDER Last Admin: 10/13/16 14:40 Dose: 12 mls/hr Sodium Chloride (Sodium Chloride 0.9%) 1,000 mls @ 200 mls/hr IV .Q5H IZABELA Last Admin: 10/13/16 16:17 Dose: 200 mls/hr Doxycycline Hyclate 100 mg/ (Sodium Chloride) 100 mls @ 100 mls/hr IVPB Q12 IZABELA PRN Reason: Protocol Vancomycin HCl 1.5 gm/ Sodium (Chloride) 500 mls @ 167 mls/hr IVPB Q12H IZABELA PRN Reason: Protocol Piperacillin Sod/Tazobactam Sod (Zosyn 3.375 In Ns 100ml) 100 mls @ 200 mls/hr IVPB Q6 IZABELA PRN Reason: Protocol Stop: 10/14/16 00:29 Metoprolol Tartrate (Lopressor) 5 mg IVP Q6H IZABELA Last Admin: 10/13/16 16:15 Dose: 5 mg Morphine Sulfate (Morphine) 2 mg IVP Q6H PRN PRN Reason: Pain, Mild (1-3) Last Admin: 10/13/16 16:29 Dose: 2 mg Pantoprazole Sodium (Protonix Inj) 40 mg IVP 0600 IZABELA Last Admin: 10/13/16 16:31 Dose: 40 mg Physical Exam - Constitutional Appears: Unkempt, Older Than Stated Age, Confused - Head Exam Head Exam: ATRAUMATIC - Eye Exam Eye Exam: Normal appearance - Respiratory Exam Respiratory Exam: Rhonchi (RLL) - Cardiovascular Exam Cardiovascular Exam: Tachycardia, REGULAR RHYTHM - GI/Abdominal Exam GI & Abdominal Exam: Soft (non-distended, Tender to palpation in all 4 quadrants ) - Neurological Exam Neurological exam: Altered - Psychiatric Exam Psychiatric exam: Anxious - Skin Skin Exam: Normal Color Results - Vital Signs Recent Vital Signs: Last Vital Signs Temp 98.0 F 10/13/16 14:09 Pulse 135 H 10/13/16 16:15 Resp 18 10/13/16 14:09 BP 132/76 10/13/16 14:09 Pulse Ox 88 L 10/13/16 14:09 - Labs Result Diagrams: 10/13/16 13:20 10/13/16 15:42 Labs: Laboratory Results - last 24 hr 10/13/16 10/13/16 10/13/16 14:20 14:56 15:27 pCO2 29 L pO2 84.0 HCO3 13.6 L ABG pH 7.28 L ABG Total CO2 14.5 L ABG O2 Saturation 96.8 ABG Base Excess -11.7 L ABG Potassium 3.9 VBG pH VBG pCO2 VBG HCO3 VBG Total CO2 VBG O2 Sat (Calc) VBG Base Excess VBG Potassium Sodium 131.0 L Chloride 98.0 Glucose > 750 H* Lactate 7.5 H* FiO2 36.0 Potassium Carbon Dioxide Anion Gap BUN Creatinine Est GFR ( Amer) Est GFR (Non-Af Amer) POC Glucose (mg/dL) > 500 H* Random Glucose Calcium Arterial Blood Potassium 3.9 Venous Blood Potassium Urine Color Light yellow Urine Appearance Clear Urine pH 6.0 Ur Specific [place] <= 1.005 Urine Protein Negative Urine Glucose (UA) >=1000 Urine Ketones Negative Urine Blood Trace-intact H Urine Nitrate Negative Urine Bilirubin Negative Urine Urobilinogen 0.2 Ur Leukocyte Esterase Trace H Urine RBC 0 - 2 Urine WBC 0 - 2 Ur Epithelial Cells 0 - 2 Urine Bacteria Few Urine Other Uyeast 10/13/16 10/13/16 10/13/16 15:42 15:42 16:27 pCO2 pO2 52 HCO3 ABG pH ABG Total CO2 ABG O2 Saturation ABG Base Excess ABG Potassium VBG pH 7.20 L VBG pCO2 35.0 L VBG HCO3 13.7 L VBG Total CO2 14.8 L VBG O2 Sat (Calc) 80.6 H VBG Base Excess -13.4 L VBG Potassium 4.9 Sodium 134.0 131 L Chloride 93.0 L 95 L Glucose > 750 H* Lactate 9.9 H* FiO2 21.0 Potassium 3.9 Carbon Dioxide 14 L Anion Gap 26 H BUN 18 Creatinine 0.6 Est GFR ( Amer) > 60 Est GFR (Non-Af Amer) > 60 POC Glucose (mg/dL) > 500 H* Random Glucose 752 H* D Calcium 9.0 Arterial Blood Potassium Venous Blood Potassium 4.9 Urine Color Urine Appearance Urine pH Ur Specific [place] Urine Protein Urine Glucose (UA) Urine Ketones Urine Blood Urine Nitrate Urine Bilirubin Urine Urobilinogen Ur Leukocyte Esterase Urine RBC Urine WBC Ur Epithelial Cells Urine Bacteria Urine Other Assessment & Plan - Assessment and Plan (Free Text) Plan: * DKA * Patient in ICU and being managed medically * No surgical intervention necessary at this time. Will continue to follow. Julio DEL RIO PGY-1
--- NOTE | 2016-10-13 16:55 | CP.PCM.PN ---
Subjective - Date & Time of Evaluation Date of Evaluation: 10/13/16 Time of Evaluation: 16:49 - Subjective Subjective: 51 yo schizophrenic patient that discontinued her medications, began drinking heavily and now presents to [facility] [place] for epigastric pain. She is not the most reliable historian. Objective - Vital Signs/Intake and Output Vital Signs (last 24 hours): Temp Pulse Resp BP Pulse Ox 97.7 F 135 H 31 H 126/83 94 L 10/13/16 15:11 10/13/16 16:15 10/13/16 15:11 10/13/16 15:11 10/13/16 15:11 - Medications Medications: Current Medications Heparin Sodium (Porcine) (Heparin) 5,000 units SC Q12 IZABELA PRN Reason: Protocol Insulin Human Regular 100 (units/ Sodium Chloride) 100 mls @ 12 mls/hr IV .Q8H20M PRN; Protocol; 12 UNITS/HR PRN Reason: TITRATE PER MD ORDER Last Admin: 10/13/16 14:40 Dose: 12 mls/hr Sodium Chloride (Sodium Chloride 0.9%) 1,000 mls @ 200 mls/hr IV .Q5H IZABELA Last Admin: 10/13/16 16:17 Dose: 200 mls/hr Doxycycline Hyclate 100 mg/ (Sodium Chloride) 100 mls @ 100 mls/hr IVPB Q12 IZABELA PRN Reason: Protocol Vancomycin HCl 1.5 gm/ Sodium (Chloride) 500 mls @ 167 mls/hr IVPB Q12H IZABELA PRN Reason: Protocol Piperacillin Sod/Tazobactam Sod (Zosyn 3.375 In Ns 100ml) 100 mls @ 200 mls/hr IVPB Q6 IZABELA PRN Reason: Protocol Stop: 10/14/16 00:29 Metoprolol Tartrate (Lopressor) 5 mg IVP Q6H IZABELA Last Admin: 10/13/16 16:15 Dose: 5 mg Morphine Sulfate (Morphine) 2 mg IVP Q6H PRN PRN Reason: Pain, Mild (1-3) Last Admin: 10/13/16 16:29 Dose: 2 mg Pantoprazole Sodium (Protonix Inj) 40 mg IVP 0600 IZABELA Last Admin: 10/13/16 16:31 Dose: 40 mg - Labs Labs: 10/13/16 15:42 PT 12.0 Seconds (9.9-11.8) H 10/13/16 13:20 INR 1.11 (0.93-1.08) H 10/13/16 13:20 APTT 21.7 Seconds (23.7-30.8) L 10/13/16 13:20 Assessment and Plan - Assessment and Plan (Free Text) Assessment: SIRS Pancreatitis Tachycardia Plan: DKA protocol has been instituted. Patient is NPO for pancreatitis.
[2016-10-13] MEDS ORDERED: Propofol 10 mg/ml 1,000 MG/100 ML VIAL ONE (17:37)
--- NOTE | 2016-10-13 18:22 | CP.PCM.CON ---
History of Present Illness - History of Present Illness History of Present Illness: 51 yo female with h/o PE, severe LV systolic dysfunction due to previous chemo and XRT for her lymphoma, now presented for diffuse abdominal pain for about 1 week. altered mental status, confused. tachycardic. No F/C/S, No N/V/D, No chest pain. Unable to provide quantitative or qulaitative analysis of abdo pain as patient is obtunded. Review of Systems - Review of Systems Systems not reviewed;Unavailable: Acuity of Condition (in respiratory distress) , Altered Mental Status - Cardiovascular Additional comments: tachycardia - Respiratory Respiratory: Dyspnea on Exertion - Gastrointestinal Gastrointestinal: Constipation - Musculoskeletal Additional comments: No c/c/e - Neurological Additional comments: moves all extremities Past Patient History - Infectious Disease Hx of Infectious Diseases: None - Tetanus Immunizations Tetanus Immunization: Unknown - Past Medical History & Family History Past Medical History?: Yes - Past Social History Smoking Status: Former Smoker Alcohol: Other (admits to drinking but was unable to quantify) - CARDIAC Hx Cardiac Disorders: Yes Hx Congestive Heart Failure: Yes Hx Hypertension: Yes Hx Pacemaker: No Hx Peripheral Edema: Yes Hx Peripheral Vascular Disease: (DVT TO LEFT ARM) - PULMONARY Hx Respiratory Disorders: Yes Hx Chronic Obstructive Pulmonary Disease (COPD): Yes Hx Emphysema: Yes Hx Pneumonia: Yes - NEUROLOGICAL Hx Neurological Disorder: No Hx Seizures: No - HEENT Hx HEENT Problems: No - RENAL Hx Chronic Kidney Disease: No - ENDOCRINE/METABOLIC Hx Endocrine Disorders: Yes Hx Diabetes Mellitus Type 2: Yes Hx Hypothyroidism: Yes - HEMATOLOGICAL/ONCOLOGICAL Hx Blood Disorders: No - INTEGUMENTARY Hx Dermatological Problems: No Hx Basil Cell: No Hx Eczema: No Hx Melanoma: No Hx Psoriasis: No Hx Squamous Cell: No - MUSCULOSKELETAL/RHEUMATOLOGICAL Hx Falls: No - GASTROINTESTINAL Hx Gastrointestinal Disorders: Yes Hx Constipation: Yes Hx Crohn's Disease: No Hx Diverticulitis: Yes Hx Gastroesophageal Reflux: Yes Hx Nausea: Yes - GENITOURINARY/GYNECOLOGICAL Hx Genitourinary Disorders: No Hx Sexually Transmitted Disorders: No - PSYCHIATRIC Hx Anxiety: Yes Hx Bipolar Disorder: Yes Hx Depression: Yes Hx Schizophrenia: Yes Hx Substance Use: No - SURGICAL HISTORY Hx Appendectomy: No Hx Cholecystectomy: Yes Hx Coronary Stent: No Other/Comment: neck mass excision - ANESTHESIA Hx Anesthesia: Yes Hx Anesthesia Reactions: No Hx Malignant Hyperthermia: No Meds Allergies/Adverse Reactions: Allergies Allergy/AdvReac Type Severity Reaction Status Date / Time No Known Allergies Allergy Verified 09/19/16 16:59 - Medications Medications: Current Medications Heparin Sodium (Porcine) (Heparin) 5,000 units SC Q12 IZABELA PRN Reason: Protocol Insulin Human Regular 100 (units/ Sodium Chloride) 100 mls @ 12 mls/hr IV .Q8H20M PRN; Protocol; 12 UNITS/HR PRN Reason: TITRATE PER MD ORDER Last Admin: 10/13/16 14:40 Dose: 12 mls/hr Sodium Chloride (Sodium Chloride 0.9%) 1,000 mls @ 200 mls/hr IV .Q5H IZABELA Last Admin: 10/13/16 16:17 Dose: 200 mls/hr Doxycycline Hyclate 100 mg/ (Sodium Chloride) 100 mls @ 100 mls/hr IVPB Q12 IZABELA PRN Reason: Protocol Vancomycin HCl 1.5 gm/ Sodium (Chloride) 500 mls @ 167 mls/hr IVPB Q12H IZABELA PRN Reason: Protocol Piperacillin Sod/Tazobactam Sod (Zosyn 3.375 In Ns 100ml) 100 mls @ 200 mls/hr IVPB Q6 IZABELA PRN Reason: Protocol Stop: 10/14/16 00:29 Fentanyl Citrate (Fentanyl Citrate/Sodium Chloride 1 Mg/100 Ml) 1,000 mcg in 100 mls @ 7.5 mls/hr IV .[id number] PRN; Protocol; 75 MCG/HR PRN Reason: TITRATE PER MD ORDER Metoprolol Tartrate (Lopressor) 5 mg IVP Q6H [facility] Last Admin: 10/13/16 16:15 Dose: 5 mg Morphine Sulfate (Morphine) 2 mg IVP Q6H PRN PRN Reason: Pain, Mild (1-3) Last Admin: 10/13/16 16:29 Dose: 2 mg Pantoprazole Sodium (Protonix Inj) 40 mg IVP 0600 IZABELA Last Admin: 10/13/16 16:31 Dose: 40 mg Physical Exam - Head Exam Head Exam: ATRAUMATIC - Eye Exam Eye Exam: Normal appearance, PERRL - ENT Exam ENT Exam: Mucous Membranes Dry - Respiratory Exam Additional comments: some crackles r>l, decrease breath sounds on a right side. some bronchial breathing sounds in right base - Cardiovascular Exam Cardiovascular Exam: Tachycardia, REGULAR RHYTHM, +S1, +S2 - GI/Abdominal Exam GI & Abdominal Exam: Soft Additional comments: abdomen is soft, tender mostly in lower quadrants, no rebound tenderness, no volunary or involuntary guarding - Extremities Exam Extremities exam: Positive for: pedal edema Additional comments: trace - Neurological Exam Additional comments: moves all extremities - Psychiatric Exam Additional comments: confused, somnolent, disoriented, unable to protect airways - Skin Skin Exam: Dry Results - Vital Signs Recent Vital Signs: Last Vital Signs Temp 97.7 F 10/13/16 15:11 Pulse 135 H 10/13/16 16:15 Resp 31 H 10/13/16 15:11 BP 126/83 10/13/16 15:11 Pulse Ox 94 L 10/13/16 15:11 - Labs Result Diagrams: 10/13/16 13:20 10/13/16 15:42 Labs: Laboratory Results - last 24 hr 10/13/16 10/13/16 10/13/16 14:20 14:56 15:27 pCO2 29 L pO2 84.0 HCO3 13.6 L ABG pH 7.28 L ABG Total CO2 14.5 L ABG O2 Saturation 96.8 ABG Base Excess -11.7 L ABG Potassium 3.9 VBG pH VBG pCO2 VBG HCO3 VBG Total CO2 VBG O2 Sat (Calc) VBG Base Excess VBG Potassium Sodium 131.0 L Chloride 98.0 Glucose > 750 H* Lactate 7.5 H* FiO2 36.0 Potassium Carbon Dioxide Anion Gap BUN Creatinine Est GFR ( Amer) Est GFR (Non-Af Amer) POC Glucose (mg/dL) > 500 H* Random Glucose Calcium Arterial Blood Potassium 3.9 Venous Blood Potassium Urine Color Light yellow Urine Appearance Clear Urine pH 6.0 Ur Specific [place] <= 1.005 Urine Protein Negative Urine Glucose (UA) >=1000 Urine Ketones Negative Urine Blood Trace-intact H Urine Nitrate Negative Urine Bilirubin Negative Urine Urobilinogen 0.2 Ur Leukocyte Esterase Trace H Urine RBC 0 - 2 Urine WBC 0 - 2 Ur Epithelial Cells 0 - 2 Urine Bacteria Few Urine Other Uyeast 10/13/16 10/13/16 10/13/16 15:42 15:42 16:27 pCO2 pO2 52 HCO3 ABG pH ABG Total CO2 ABG O2 Saturation ABG Base Excess ABG Potassium VBG pH 7.20 L VBG pCO2 35.0 L VBG HCO3 13.7 L VBG Total CO2 14.8 L VBG O2 Sat (Calc) 80.6 H VBG Base Excess -13.4 L VBG Potassium 4.9 Sodium 134.0 131 L Chloride 93.0 L 95 L Glucose > 750 H* Lactate 9.9 H* FiO2 21.0 Potassium 3.9 Carbon Dioxide 14 L Anion Gap 26 H BUN 18 Creatinine 0.6 Est GFR ( Amer) > 60 Est GFR (Non-Af Amer) > 60 POC Glucose (mg/dL) > 500 H* Random Glucose 752 H* D Calcium 9.0 Arterial Blood Potassium Venous Blood Potassium 4.9 Urine Color Urine Appearance Urine pH Ur Specific [place] Urine Protein Urine Glucose (UA) Urine Ketones Urine Blood Urine Nitrate Urine Bilirubin Urine Urobilinogen Ur Leukocyte Esterase Urine RBC Urine WBC Ur Epithelial Cells Urine Bacteria Urine Other Assessment & Plan - Assessment and Plan (Free Text) Assessment: 51 yo female with progressive abdo pain, severe lactic acidosis, most likely due to severe sepsis in the setting of rectosigmoid colitis. Can not rule out severe CAP as a primary source of infection as well, as dense consolidation with air bronchograms are observed on CT A/P in the low lobes. HONK most likely secondary to severe sepsis. (No ketones in urine). We will proceed with aggressive fluid resuscitation and trending lactic acid level, septic workrup including blood, urine and sputum culture. Urine for Legionella and strep antigens. procalcitonin level. stool for c.diff. Broad spectrum abx (zosyn, vanc , doxy), ID consult. Will also proceed with GI and surgical consult. Patient has h/o reccurent PE and was on eliquis, we will proceed with TAC with heparin. I will continue with b-blockers as well. Will get echo, troponin x 2. I will continue with insulin drip, accu q1h and BMP q4 hrs. Patient was intubated for severe respiratory distress and impending respiratory failure and inability to protect airways. Will continuie with protective lung ventilation strategy, HOB> 35, GI prophylaxis, conservative 02 management. Once fluid resusucitated and lactic acidosis resolved, will proceed with conservative fluid management. Plan: 51 yo female with progressive abdo pain, severe lactic acidosis, most likely due to severe sepsis in the setting of rectosigmoid colitis. Can not rule out severe CAP as a primary source of infection as well, as dense consolidation with air bronchograms are observed on CT A/P in the low lobes. HONK most likely secondary to severe sepsis. (No ketones in urine). We will proceed with aggressive fluid resuscitation and trending lactic acid level, septic workrup including blood, urine and sputum culture. Urine for Legionella and strep antigens. procalcitonin level. stool for c.diff. Broad spectrum abx (zosyn, vanc , doxy), ID consult. Will also proceed with GI and surgical consult. Patient has h/o reccurent PE and was on eliquis, we will proceed with TAC with heparin. I will continue with b-blockers as well. Will get echo, troponin x 2. I will continue with insulin drip, accu q1h and BMP q4 hrs. Patient was intubated for severe respiratory distress and impending respiratory failure and inability to protect airways. Will continuie with protective lung ventilation strategy, HOB> 35, GI prophylaxis, conservative 02 management. Once fluid resusucitated and lactic acidosis resolved, will proceed with conservative fluid management. ccm time 40 min
[2016-10-13 18:48] LABS: VENOUS BLOOD GAS BASE EXCESS -9.3 mmol/L (0.0-2.0); VENOUS BLOOD GAS PO2 124 mm/Hg (30-55); VENOUS BLOOD PH 7.26 (7.32-7.43)
[2016-10-13 18:50] LABS: ARTERIAL BLOOD GAS HCO3 17.1 mmol/L (21-28); ARTERIAL BLOOD GAS O2 SAT 99.6 % (95-98); ARTERIAL BLOOD GAS PCO2 38 mm/Hg (35-45); ARTERIAL BLOOD GAS PH 7.26 (7.35-7.45); ARTERIAL BLOOD GAS TCO2 18.3 mmol.L (22-28)
[2016-10-13 18:50] LABS: BLOOD UREA NITROGEN 18 mg/dL (7-21); CALCIUM 8.3 mg/dL (8.4-10.5); GFR AFRICAN-AMERICAN > 60; GFR NON-AFRICAN AMERICAN > 60
[2016-10-13] MEDS: Fentanyl 1000mcg/100ml NS 1,000 MCG/100 ML BAG IV PRN (19:00)
[2016-10-13] MEDS ORDERED: Piperacillin/Tazobact 3.375 gm 100 ML IVPB SCH (20:00)
[2016-10-13 20:09] LABS: TROPONIN I < 0.01 ng/mL
[2016-10-13] MEDS: Heparin 25,000units in D5W 25,000 UNITS/250 ML BAG IV PRN (21:07)
[2016-10-13] MEDS: Meropenem 1g/NS 100mL IVPB 1 GM/100 ML PIGGYBACK IVPB SCH (23:16)
[2016-10-13 23:52] LABS: VENOUS BLOOD GAS BASE EXCESS -2.3 mmol/L (0.0-2.0); VENOUS BLOOD GAS PO2 113 mm/Hg (30-55); VENOUS BLOOD PH 7.38 (7.32-7.43)
[2016-10-14 00:12] LABS: BLOOD UREA NITROGEN 18 mg/dL (7-21); CALCIUM 8.2 mg/dL (8.4-10.5); GFR AFRICAN-AMERICAN > 60; GFR NON-AFRICAN AMERICAN > 60
[2016-10-14] MEDS ORDERED: Potassium Chloride 20 MEQ in Dextrose 5%/0.45% NS 1,000 ML IV SCH (01:30)
[2016-10-14] MEDS: Vancomycin 1.5 GM in Sodium Chloride 0.9% 500 ML IVPB SCH ×2 (01:41→15:12)
[2016-10-14] MEDS: Fentanyl 1000mcg/100ml NS 1,000 MCG/100 ML BAG IV PRN ×2 (03:36→19:59)
[2016-10-14] MEDS: Metoprolol 1 mg/ml Inj IVP SCH ×2 (03:39→10:22)
[2016-10-14 04:21] LABS: VENOUS BLOOD GAS BASE EXCESS -10.4 mmol/L (0.0-2.0); VENOUS BLOOD GAS PO2 77 mm/Hg (30-55); VENOUS BLOOD PH 7.24 (7.32-7.43)
[2016-10-14 04:25] LABS: HEMOGLOBIN 13.1 gm/dL (12.0-16.0); MEAN CELL VOLUME 79.2 fL (80.0-105.0); MEAN CORPUSCULAR HEMOGLOBIN 26.1 pg (25.0-35.0); MEAN PLATELET VOLUME 10.7 fl (7.0-11.0); PLATELET COUNT 423 10^3/uL (120.0-450.0); RBC 5.01 10^6/uL (3.5-6.1); RED CELL DISTRIBUTION WIDTH 21.3 % (11.5-14.5); WHITE BLOOD COUNT 22.8 10^3/ul (4.5-11.0)
[2016-10-14 04:51] LABS: BLOOD UREA NITROGEN 20 mg/dL (7-21); CALCIUM 7.9 mg/dL (8.4-10.5); GFR AFRICAN-AMERICAN > 60; GFR NON-AFRICAN AMERICAN > 60
[2016-10-14 05:13] LABS: NEUTROPHIL 74 % (50.0-70.0)
[2016-10-14 05:15] LABS: BAND 5 % (0-2)
[2016-10-14 05:16] LABS: ANISOCYTOSIS 1+; BASOPHIL 1 % (0.0-1.0); CORRECTED WBC 21.7 K/mm3 (4.5-11.0); LYMPHOCYTE 17 % (22.0-35.0); MONOCYTE 3 % (1.0-6.0); NUCLEATED RED BLOOD CELL 5 %; PLATELET ESTIMATE NORMAL (NORMAL); POLYCHROMASIA 1+
[2016-10-14] MEDS: Meropenem 1g/NS 100mL IVPB 1 GM/100 ML PIGGYBACK IVPB SCH ×3 (05:24→22:18)
[2016-10-14] MEDS ORDERED: Dextrose 5%/0.45% NS 1,000 ML IV SCH (05:30)
[2016-10-14] MEDS ORDERED: Sodium Bicarbonate 8.4% 150 MEQ in Dextrose 5% In Water 1,000 ML IV SCH (07:45)
[2016-10-14 08:08] LABS: ARTERIAL BLOOD GAS HCO3 15.6 mmol/L (21-28); ARTERIAL BLOOD GAS HEMOGLOBIN 9.1 g/dL (11.7-17.4); ARTERIAL BLOOD GAS O2 CAPACITY 12.6 mL/dl (16-24); ARTERIAL BLOOD GAS O2 CONTENT 9.2 ML/dl (15-23); ARTERIAL BLOOD GAS O2 SAT 73.3 % (95-98); ARTERIAL BLOOD GAS PCO2 40 mm/Hg (35-45); ARTERIAL BLOOD GAS TCO2 16.8 mmol.L (22-28)
--- NOTE | 2016-10-14 08:34 | RAD ---
HISTORY: post intubation COMPARISON: Comparison is made to the previous study dated 10/13/2016 FINDINGS: LUNGS: The ET tube is seen at appropriate position with the tip above the new. Partial collapse of the lower lobes due to pleural effusions larger on the right PLEURA: Bilateral pleural effusion larger on the right associated with partial collapse of the right lung. CARDIOVASCULAR: Cannot evaluate the cardiac silhouette due to large bilateral pleural effusions OSSEOUS STRUCTURES: No significant abnormalities. VISUALIZED UPPER ABDOMEN: Normal. OTHER FINDINGS: None. IMPRESSION: Appropriate position of the ETT. Large bilateral pleural effusions larger on the right.
[2016-10-14 08:37] LABS: ARTERIAL BLOOD GAS HCO3 17.8 mmol/L (21-28); ARTERIAL BLOOD GAS O2 SAT 99.7 % (95-98); ARTERIAL BLOOD GAS PCO2 25 mm/Hg (35-45); ARTERIAL BLOOD GAS PH 7.46 (7.35-7.45); ARTERIAL BLOOD GAS TCO2 18.6 mmol.L (22-28)
[2016-10-14 08:52] LABS: VENOUS BLOOD GAS PO2 182 mm/Hg (30-55)
[2016-10-14 09:02] LABS: BLOOD UREA NITROGEN 22 mg/dL (7-21); CALCIUM 7.6 mg/dL (8.4-10.5); GFR AFRICAN-AMERICAN > 60; GFR NON-AFRICAN AMERICAN > 60
--- NOTE | 2016-10-14 09:21 | RAD ---
HISTORY: acute Respiratory distress COMPARISON: 10/13/2016 FINDINGS: LUNGS: Hazy bilateral infiltrate. Endotracheal tube in satisfactory position PLEURA: Large bilateral pleural effusions CARDIOVASCULAR: Normal. OSSEOUS STRUCTURES: No significant abnormalities. VISUALIZED UPPER ABDOMEN: Normal. OTHER FINDINGS: None. IMPRESSION: Bilateral pleural effusions and hazy infiltrates. Endotracheal tube in satisfactory position
--- NOTE | 2016-10-14 09:53 | CP.PCM.CON ---
History of Present Illness - History of Present Illness History of Present Illness: 51 year old female with PMH of HTN, hypothyroidism, DM, chronic CHF, history of migraines, bipolar disorder, history of acute cholecystitis S/P laparoscopic cholecystectomy in Apr 2016 came in to [facility] complaining of abdominal pain for the past week, associated with nausea and constipation. In the ED, the patient was noted to be in some respiratory distress. She was noted to have elevated lactate and marked leukocytosis and was brought to the ICU for closer observation and management. She was eventually intubated and put on the ventilator and was noted to be in hyperglycemic hyperosmolar state. There is no note of fever, no convulsions, no vomiting, no diarrhea. Full review of systems is unobtainable because the patient is intubated. CT scan of the abdomen showed consolidations on the lower lobes of both lungs. Infectious diseases consult is requested to further evaluate and manage. Review of Systems - Review of Systems Systems not reviewed;Unavailable: Intubated Past Patient History - Infectious Disease Hx of Infectious Diseases: None - Tetanus Immunizations Tetanus Immunization: Unknown - Past Medical History & Family History Past Medical History?: Yes - Past Social History Smoking Status: Former Smoker - CARDIAC Hx Cardiac Disorders: Yes Hx Congestive Heart Failure: Yes Hx Hypertension: Yes Hx Pacemaker: No Hx Peripheral Edema: Yes Hx Peripheral Vascular Disease: (DVT TO LEFT ARM) - PULMONARY Hx Respiratory Disorders: Yes Hx Chronic Obstructive Pulmonary Disease (COPD): Yes Hx Emphysema: Yes Hx Pneumonia: Yes - NEUROLOGICAL Hx Neurological Disorder: No Hx Seizures: No - HEENT Hx HEENT Problems: No - RENAL Hx Chronic Kidney Disease: No - ENDOCRINE/METABOLIC Hx Endocrine Disorders: Yes Hx Diabetes Mellitus Type 2: Yes Hx Hypothyroidism: Yes - HEMATOLOGICAL/ONCOLOGICAL Hx Blood Disorders: No - INTEGUMENTARY Hx Dermatological Problems: No Hx Basil Cell: No Hx Eczema: No Hx Melanoma: No Hx Psoriasis: No Hx Squamous Cell: No - MUSCULOSKELETAL/RHEUMATOLOGICAL Hx Falls: No - GASTROINTESTINAL Hx Gastrointestinal Disorders: Yes Hx Crohn's Disease: No Hx Diverticulitis: Yes Hx Gastroesophageal Reflux: Yes - GENITOURINARY/GYNECOLOGICAL Hx Genitourinary Disorders: No Hx Sexually Transmitted Disorders: No - PSYCHIATRIC Hx Anxiety: Yes Hx Bipolar Disorder: Yes Hx Depression: Yes Hx Substance Use: No - SURGICAL HISTORY Hx Appendectomy: No Hx Cholecystectomy: Yes Hx Coronary Stent: No Other/Comment: neck mass excision - ANESTHESIA Hx Anesthesia: Yes Hx Anesthesia Reactions: No Hx Malignant Hyperthermia: No Meds Allergies/Adverse Reactions: Allergies Allergy/AdvReac Type Severity Reaction Status Date / Time No Known Allergies Allergy Verified 09/19/16 16:59 - Medications Medications: Current Medications Insulin Human Regular 100 (units/ Sodium Chloride) 100 mls @ 12 mls/hr IV .Q8H20M PRN; Protocol; 12 UNITS/HR PRN Reason: TITRATE PER MD ORDER Last Titration: 10/13/16 21:30 Dose: 7 units/hr, 7 mls/hr Doxycycline Hyclate 100 mg/ (Sodium Chloride) 100 mls @ 100 mls/hr IVPB Q12 IZABELA PRN Reason: Protocol Last Admin: 10/13/16 22:32 Dose: 100 mls/hr Vancomycin HCl 1.5 gm/ Sodium (Chloride) 500 mls @ 167 mls/hr IVPB Q12H IZABELA PRN Reason: Protocol Piperacillin Sod/Tazobactam Sod (Zosyn 3.375 In Ns 100ml) 100 mls @ 200 mls/hr IVPB Q6 IZABELA PRN Reason: Protocol Stop: 10/14/16 00:29 Last Admin: 10/13/16 20:33 Dose: 200 mls/hr Fentanyl Citrate (Fentanyl Citrate/Sodium Chloride 1 Mg/100 Ml) 1,000 mcg in 100 mls @ 7.5 mls/hr IV .[id number] PRN; Protocol; 75 MCG/HR PRN Reason: TITRATE PER MD ORDER Heparin Sodium/Dextrose (Heparin 25,000 Units/250ml In D5w) 25,000 units in 250 mls @ 14.043 mls/hr IV .[id number] PRN; Protocol; 18 UNITS/KG/HR PRN Reason: ADJUST RATE PER PROTOCOL Last Admin: 10/13/16 21:07 Dose: 18 units/kg/hr, 14.043 mls/hr Potassium Chloride (Potassium Chloride 10 Meq/100 Ml) 10 meq in 100 mls @ 100 mls/hr IVPB Q2H IZABELA Stop: 10/13/16 23:14 Last Admin: 10/13/16 21:26 Dose: 100 mls/hr Potassium Chloride 20 meq/ (Sodium Chloride) 1,010 mls @ 200 mls/hr IV .Q5H3M IZABELA Last Admin: 10/13/16 21:20 Dose: 200 mls/hr Metoprolol Tartrate (Lopressor) 5 mg IVP Q6H [facility] Last Admin: 10/13/16 16:15 Dose: 5 mg Morphine Sulfate (Morphine) 2 mg IVP Q6H PRN PRN Reason: Pain, Mild (1-3) Last Admin: 10/13/16 16:29 Dose: 2 mg Pantoprazole Sodium (Protonix Inj) 40 mg IVP 0600 [facility] Last Admin: 10/13/16 16:31 Dose: 40 mg Physical Exam - Constitutional Appears: Other (Intubated and sedated) - Head Exam Head Exam: NORMAL INSPECTION - ENT Exam Additional comments: ET tube in place - Neck Exam Neck exam: Negative for: Meningismus - Respiratory Exam Respiratory Exam: Decreased Breath Sounds (at the bases) - Cardiovascular Exam Cardiovascular Exam: +S1, +S2 - GI/Abdominal Exam GI & Abdominal Exam: Soft. absent: Tenderness - Extremities Exam Extremities exam: Positive for: pedal edema (3+, bilateral and pitting) Results - Vital Signs Recent Vital Signs: Last Vital Signs Temp 97.7 F 10/13/16 15:11 Pulse 135 H 10/13/16 16:15 Resp 32 H 10/13/16 15:11 BP 145/85 10/13/16 15:11 Pulse Ox 94 L 10/13/16 15:11 - Labs Result Diagrams: 10/14/16 04:05 10/14/16 08:30 Labs: Laboratory Results - last 24 hr 10/13/16 10/13/16 10/13/16 14:20 14:56 15:27 pCO2 29 L pO2 84.0 HCO3 13.6 L ABG pH 7.28 L ABG Total CO2 14.5 L ABG O2 Saturation 96.8 ABG Base Excess -11.7 L ABG Potassium 3.9 VBG pH VBG pCO2 VBG HCO3 VBG Total CO2 VBG O2 Sat (Calc) VBG Base Excess VBG Potassium Sodium 131.0 L Chloride 98.0 Glucose > 750 H* Lactate 7.5 H* Mechanical Rate FiO2 36.0 Tidal Volume PEEP Potassium Carbon Dioxide Anion Gap BUN Creatinine Est GFR ( Amer) Est GFR (Non-Af Amer) POC Glucose (mg/dL) > 500 H* Random Glucose Calcium Troponin I Procalcitonin Arterial Blood Potassium 3.9 Venous Blood Potassium Urine Color Light yellow Urine Appearance Clear Urine pH 6.0 Ur Specific [place] <= 1.005 Urine Protein Negative Urine Glucose (UA) >=1000 Urine Ketones Negative Urine Blood Trace-intact H Urine Nitrate Negative Urine Bilirubin Negative Urine Urobilinogen 0.2 Ur Leukocyte Esterase Trace H Urine RBC 0 - 2 Urine WBC 0 - 2 Ur Epithelial Cells 0 - 2 Urine Bacteria Few Urine Other Uyeast 10/13/16 10/13/16 10/13/16 15:42 15:42 15:42 pCO2 pO2 52 HCO3 ABG pH ABG Total CO2 ABG O2 Saturation ABG Base Excess ABG Potassium VBG pH 7.20 L VBG pCO2 35.0 L VBG HCO3 13.7 L VBG Total CO2 14.8 L VBG O2 Sat (Calc) 80.6 H VBG Base Excess -13.4 L VBG Potassium 4.9 Sodium 134.0 131 L Chloride 93.0 L 95 L Glucose > 750 H* Lactate 9.9 H* Mechanical Rate FiO2 21.0 Tidal Volume PEEP Potassium 3.9 Carbon Dioxide 14 L Anion Gap 26 H BUN 18 Creatinine 0.6 Est GFR ( Amer) > 60 Est GFR (Non-Af Amer) > 60 POC Glucose (mg/dL) Random Glucose 752 H* D Calcium 9.0 Troponin I Procalcitonin 0.24 Arterial Blood Potassium Venous Blood Potassium 4.9 Urine Color Urine Appearance Urine pH Ur Specific [place] Urine Protein Urine Glucose (UA) Urine Ketones Urine Blood Urine Nitrate Urine Bilirubin Urine Urobilinogen Ur Leukocyte Esterase Urine RBC Urine WBC Ur Epithelial Cells Urine Bacteria Urine Other 10/13/16 10/13/16 10/13/16 16:27 18:22 18:22 pCO2 pO2 124 H HCO3 ABG pH ABG Total CO2 ABG O2 Saturation ABG Base Excess ABG Potassium VBG pH 7.26 L VBG pCO2 38.0 L VBG HCO3 17.1 L VBG Total CO2 18.3 L VBG O2 Sat (Calc) 99.2 H VBG Base Excess -9.3 L VBG Potassium 3.0 L Sodium 133 135.0 Chloride 101 102.0 Glucose 534 H* D Lactate 6.7 H* Mechanical Rate FiO2 21.0 Tidal Volume PEEP Potassium 2.9 L* D Carbon Dioxide 18 L Anion Gap 17 BUN 18 Creatinine 0.6 Est GFR ( Amer) > 60 Est GFR (Non-Af Amer) > 60 POC Glucose (mg/dL) > 500 H* Random Glucose 531 H* D Calcium 8.3 L Troponin I < 0.01 Procalcitonin Arterial Blood Potassium Venous Blood Potassium 3.0 L Urine Color Urine Appearance Urine pH Ur Specific [place] Urine Protein Urine Glucose (UA) Urine Ketones Urine Blood Urine Nitrate Urine Bilirubin Urine Urobilinogen Ur Leukocyte Esterase Urine RBC Urine WBC Ur Epithelial Cells Urine Bacteria Urine Other 10/13/16 10/13/16 10/13/16 18:30 18:32 20:09 pCO2 38 pO2 147.0 H HCO3 17.1 L ABG pH 7.26 L ABG Total CO2 18.3 L ABG O2 Saturation 99.6 H ABG Base Excess -9.3 L ABG Potassium 2.7 L VBG pH VBG pCO2 VBG HCO3 VBG Total CO2 VBG O2 Sat (Calc) VBG Base Excess VBG Potassium Sodium 135.0 Chloride 104.0 Glucose 507 H* Lactate 6.1 H* Mechanical Rate 14 FiO2 50.0 Tidal Volume 400 PEEP 5 Potassium Carbon Dioxide Anion Gap BUN Creatinine Est GFR ( Amer) Est GFR (Non-Af Amer) POC Glucose (mg/dL) 466 H* 363 H Random Glucose Calcium Troponin I Procalcitonin Arterial Blood Potassium 2.7 L Venous Blood Potassium Urine Color Urine Appearance Urine pH Ur Specific [place] Urine Protein Urine Glucose (UA) Urine Ketones Urine Blood Urine Nitrate Urine Bilirubin Urine Urobilinogen Ur Leukocyte Esterase Urine RBC Urine WBC Ur Epithelial Cells Urine Bacteria Urine Other Assessment & Plan - Assessment and Plan (Free Text) Plan: Assessment consider severe sepsis with acute hypoxic ventilator-dependent respiratory failure probably due to bilateral lower lobe healthcare-associated pneumonia with possible gram positive cocci, gram negative bacilli and/or atypical organisms, with associated hyperglycemic, hyperosmolar state history of healthcare-associated pneumonia, right middle lobe history of bilateral healthcare-associated pneumonia in this patient chronic heart failure S/P acute cholecystitis, S/P laparoscopic cholecystectomy CAD with chronic CHF DM HTN history of migraines bipolar disorder Plan started patient on Vancomycin, Merrem and Doxycycline pending blood cx, sputum cx, urine Legionella Ag, PCT; reviewed CT abdomen; reviewed ICU evaluation will follow clinically Patient is in critical condition
--- NOTE | 2016-10-14 10:13 | CARD ---
APPROVED REPORT EKG Measurement Heart [id number] [id number] [id number] <Conclusion> Sinus tachycardia Left bundle branch block C/W ECG 09/19/16: the rate is faster
[2016-10-14] MEDS ORDERED: DOBUTamine 500mg/250ml D5W 500 MG/250 ML BAG IV PRN ×4 (10:19→11:40)
[2016-10-14] MEDS ORDERED: Sodium Chloride 0.9% 500 ML IV STA (10:19)
--- NOTE | 2016-10-14 10:57 | CP.PCM.PN ---
Subjective - Date & Time of Evaluation Date of Evaluation: 10/14/16 Time of Evaluation: 10:54 - Subjective Subjective: General Surgery Resident: Sarah Attending: Denae Grijalva seen and examined at bedside. Patient sedated/intubated. No new complaints at this time. Objective - Vital Signs/Intake and Output Vital Signs (last 24 hours): Temp Pulse Resp BP Pulse Ox 101 F H 106 H 18 74/44 L 97 10/14/16 04:00 10/14/16 10:39 10/14/16 00:00 10/14/16 10:39 10/14/16 04:00 Intake and Output: 10/14/16 10/14/16 06:59 18:59 Intake Total 2733 19.7 Output Total 300 Balance 2433 19.7 - Medications Medications: Current Medications Doxycycline Hyclate 100 mg/ (Sodium Chloride) 100 mls @ 100 mls/hr IVPB Q12 IZABELA PRN Reason: Protocol Last Admin: 10/14/16 09:55 Dose: 100 mls/hr Vancomycin HCl 1.5 gm/ Sodium (Chloride) 500 mls @ 167 mls/hr IVPB Q12H [facility]ELA PRN Reason: Protocol Last Admin: 10/14/16 01:41 Dose: 167 mls/hr Fentanyl Citrate (Fentanyl Citrate/Sodium Chloride 1 Mg/100 Ml) 1,000 mcg in 100 mls @ 7.5 mls/hr IV .[id number] PRN; Protocol; 75 MCG/HR PRN Reason: TITRATE PER MD ORDER Last Titration: 10/14/16 08:17 Dose: 75 mcg/hr, 7.5 mls/hr Heparin Sodium/Dextrose (Heparin 25,000 Units/250ml In D5w) 25,000 units in 250 mls @ 14.043 mls/hr IV .[id number] PRN; Protocol; 18 UNITS/KG/HR PRN Reason: ADJUST RATE PER PROTOCOL Last Admin: 10/13/16 21:07 Dose: 18 units/kg/hr, 14.043 mls/hr Meropenem 1g/NS 100mL IVPB (Meropenem 1g/Ns 100ml Ivpb) 1 gm in 100 mls @ 100 mls/hr IVPB Q8 IZABELA PRN Reason: Protocol Stop: 10/20/16 22:46 Last Admin: 10/14/16 05:24 Dose: 100 mls/hr Sodium Bicarbonate 150 meq/ (Dextrose) 1,150 mls @ 150 mls/hr IV .Q7H40M [facility] Last Admin: 10/14/16 10:02 Dose: 150 mls/hr Dobutamine HCl/Dextrose (Dobutamine/Dextrose 5% 500mg/250ml) 500 mg in 250 mls @ 5.273 mls/hr IV .Q24H PRN; Protocol; 2.5 MCG/KG/MIN PRN Reason: TITRATE PER PROTOCOL Last Admin: 10/14/16 10:39 Dose: 5.273 mls/hr Metoprolol Tartrate (Lopressor) 5 mg IVP Q6H [facility] Last Admin: 10/14/16 10:22 Dose: Not Given Morphine Sulfate (Morphine) 2 mg IVP Q6H PRN PRN Reason: Pain, Mild (1-3) Last Admin: 10/13/16 16:29 Dose: 2 mg Pantoprazole Sodium (Protonix Inj) 40 mg IVP 0600 [facility] Last Admin: 10/14/16 05:24 Dose: 40 mg - Labs Labs: 10/14/16 04:05 10/14/16 08:30 PT 12.0 Seconds (9.9-11.8) H 10/13/16 13:20 INR 1.11 (0.93-1.08) H 10/13/16 13:20 APTT 59.4 Seconds (23.7-30.8) H 10/14/16 04:05 - Constitutional Appears: No Acute Distress - Head Exam Head Exam: ATRAUMATIC - ENT Exam ENT Exam: Mucous Membranes Moist - Respiratory Exam Respiratory Exam: Rhonchi (RLL) - Cardiovascular Exam Cardiovascular Exam: REGULAR RHYTHM - GI/Abdominal Exam GI & Abdominal Exam: Soft Additional comments: Nontender. Mildly Distended - Extremities Exam Extremities Exam: Normal Inspection - Skin Skin Exam: Normal Color, Warm Assessment and Plan - Assessment and Plan (Free Text) Assessment: * Severe Sepsis secondary to Rectosigmoid Colitis * CAP * Hyperglycemic Hyperosmolar Non-Ketotic Coma secondary to severe sepsis * Recurrent PE Plan: * Management Per ICU * Per ID: Started Vancomycin, Merrem and Doxycycline pending blood cx, sputum cx , urine Legionella Ag, PCT * No surgical intervention necessary at this time * Will continue to follow Julio DOMINGO PGY-1
[2016-10-14] MEDS: Sodium Chloride 0.9% 1,000 ML IV STA (11:03)
[2016-10-14] MEDS: Insulin Lispro (humaLOG) MEDIUM Coverage SC SCH ×4 (11:30→21:39)
[2016-10-14 11:50] LABS: BLOOD UREA NITROGEN 23 mg/dL (7-21); CALCIUM 7.4 mg/dL (8.4-10.5); GFR AFRICAN-AMERICAN > 60; GFR NON-AFRICAN AMERICAN 58; LIPASE 778 U/L (23-300)
[2016-10-14] MEDS: Insulin Detemir 100 units/ml Vial (Levemir) SC SCH (12:03)
--- NOTE | 2016-10-14 13:43 | CP.PCM.PN ---
<Christiano Lopes - Last Filed: 10/14/16 15:34> Subjective - Date & Time of Evaluation Date of Evaluation: 10/14/16 Time of Evaluation: 13:42 - Subjective Subjective: Patient sedated, nurse reports no overnight events. Objective - Vital Signs/Intake and Output Vital Signs (last 24 hours): Temp Pulse Resp BP Pulse Ox 99 F 109 H 18 99/56 L 96 10/14/16 12:56 10/14/16 12:20 10/14/16 00:00 10/14/16 12:15 10/14/16 12:20 Intake and Output: 10/14/16 10/14/16 06:59 18:59 Intake Total 2733 69.7 Output Total 300 Balance 2433 69.7 - Medications Medications: Current Medications Doxycycline Hyclate 100 mg/ (Sodium Chloride) 100 mls @ 100 mls/hr IVPB Q12 IZABELA PRN Reason: Protocol Last Admin: 10/14/16 09:55 Dose: 100 mls/hr Vancomycin HCl 1.5 gm/ Sodium (Chloride) 500 mls @ 167 mls/hr IVPB Q12H [facility]ELA PRN Reason: Protocol Last Admin: 10/14/16 01:41 Dose: 167 mls/hr Fentanyl Citrate (Fentanyl Citrate/Sodium Chloride 1 Mg/100 Ml) 1,000 mcg in 100 mls @ 7.5 mls/hr IV .[id number] PRN; Protocol; 75 MCG/HR PRN Reason: TITRATE PER MD ORDER Last Titration: 10/14/16 08:17 Dose: 75 mcg/hr, 7.5 mls/hr Heparin Sodium/Dextrose (Heparin 25,000 Units/250ml In D5w) 25,000 units in 250 mls @ 14.043 mls/hr IV .[id number] PRN; Protocol; 18 UNITS/KG/HR PRN Reason: ADJUST RATE PER PROTOCOL Last Admin: 10/13/16 21:07 Dose: 18 units/kg/hr, 14.043 mls/hr Meropenem 1g/NS 100mL IVPB (Meropenem 1g/Ns 100ml Ivpb) 1 gm in 100 mls @ 100 mls/hr IVPB Q8 IZABELA PRN Reason: Protocol Stop: 10/20/16 22:46 Last Admin: 10/14/16 05:24 Dose: 100 mls/hr Sodium Bicarbonate 150 meq/ (Dextrose) 1,150 mls @ 150 mls/hr IV .Q7H40M [facility] Last Admin: 10/14/16 10:02 Dose: 150 mls/hr Dobutamine HCl/Dextrose (Dobutamine/Dextrose 5% 500mg/250ml) 500 mg in 250 mls @ 5.273 mls/hr IV .Q24H PRN; Protocol; 2.5 MCG/KG/MIN PRN Reason: TITRATE PER PROTOCOL Last Titration: 10/14/16 11:20 Dose: 2 mcg/kg/min, 4.218 mls/hr Metronidazole (Flagyl) 500 mg in 100 mls @ 100 mls/hr IVPB Q8 IZABELA PRN Reason: Protocol Insulin Detemir (Levemir) 20 unit SC DAILY [facility] Last Admin: 10/14/16 12:03 Dose: 20 unit Insulin Human Lispro (Humalog Med) 0 units SC ACHS IZABELA PRN Reason: Protocol Last Admin: 10/14/16 12:03 Dose: 3 units Metoprolol Tartrate (Lopressor) 5 mg IVP Q6H [facility] Last Admin: 10/14/16 10:22 Dose: Not Given Morphine Sulfate (Morphine) 2 mg IVP Q6H PRN PRN Reason: Pain, Mild (1-3) Last Admin: 10/13/16 16:29 Dose: 2 mg Pantoprazole Sodium (Protonix Inj) 40 mg IVP 0600 [facility] Last Admin: 10/14/16 05:24 Dose: 40 mg - Labs Labs: 10/14/16 04:05 10/14/16 11:30 PT 12.0 Seconds (9.9-11.8) H 10/13/16 13:20 INR 1.11 (0.93-1.08) H 10/13/16 13:20 APTT 37.2 Seconds (23.7-30.8) H 10/14/16 11:30 - Constitutional Appears: Unkempt, Confused (obtunded) - Head Exam Head Exam: ATRAUMATIC, NORMOCEPHALIC - Eye Exam Eye Exam: Periorbital swelling - Respiratory Exam Respiratory Exam: Decreased Breath Sounds (right greater than left.). absent: Accessory Muscle Use - Cardiovascular Exam Cardiovascular Exam: Tachycardia, +S1, +S2 - GI/Abdominal Exam GI & Abdominal Exam: Soft, Organomegaly (hepatomegaly). absent: Tenderness, Rebound Assessment and Plan - Assessment and Plan (Free Text) Assessment: 51 yo white female schizophrenic, off her medications who was admitted to the ICU obtunded, in respiratory failure with overt DKA and sepsis secondary to CAP vs colitis. Patient was intubated for airway protection, impending respiratory failure, with concomitant work-up and treatment for the above mention illnesses. Plan: Neurologic: Sedated with IV propofol and fentanyl. Cardiovascular: Severe LV systolic dysfunction due to chemoradiation for lymphoma. EF of 30%. Metoprolol held while dobutamine drip was utilized prior to thoracentisis. Post thoracentesis, patient became hemodynamic stable and dobumatine was held. Pulmonary: protective lung ventilation strategy instituted with diagnostic/ therapeutic thorocentesis. Ventilator settings on PRSV mode, TV of 400, FiO2 of , RR of 18, and PEEP OF 5. PBV is ID: Sepsis work-up, with MEROPENEM, DOXYCYCLINE, VANCOMYCIN, AND METRONIDAZOLE. Blood, sputum, and urine cultures. Procalcitonin, legionella, strep urine antigens. Heme: Recurrent PEs. Therapeutic Anticoagulation with heparin IV. GI: Pancreatitis could be a possibility, lipase elevated today. GI consulted for concern for colitis. Endocrine: DKA fluid rescusitated with NS replace K, Insulin drip till BG in 200; converted to 20 units of SC Levemir with the anion gap back to normal. Code status: Full Code. <Rancho Liu - Last Filed: 10/14/16 16:39> Objective - Vital Signs/Intake and Output Vital Signs (last 24 hours): Temp Pulse Resp BP Pulse Ox 99 F 110 H 19 102/64 96 10/14/16 12:56 10/14/16 15:30 10/14/16 13:57 10/14/16 15:30 10/14/16 15:30 Intake and Output: 10/14/16 10/14/16 06:59 18:59 Intake Total 2733 69.7 Output Total 300 Balance 2433 69.7 - Medications Medications: Current Medications Doxycycline Hyclate 100 mg/ (Sodium Chloride) 100 mls @ 100 mls/hr IVPB Q12 IZABELA PRN Reason: Protocol Last Admin: 10/14/16 09:55 Dose: 100 mls/hr Vancomycin HCl 1.5 gm/ Sodium (Chloride) 500 mls @ 167 mls/hr IVPB Q12H IZABELA PRN Reason: Protocol Last Admin: 10/14/16 15:12 Dose: 167 mls/hr Fentanyl Citrate (Fentanyl Citrate/Sodium Chloride 1 Mg/100 Ml) 1,000 mcg in 100 mls @ 7.5 mls/hr IV .[id number] PRN; Protocol; 75 MCG/HR PRN Reason: TITRATE PER MD ORDER Last Titration: 10/14/16 08:17 Dose: 75 mcg/hr, 7.5 mls/hr Heparin Sodium/Dextrose (Heparin 25,000 Units/250ml In D5w) 25,000 units in 250 mls @ 14.043 mls/hr IV .[id number] PRN; Protocol; 18 UNITS/KG/HR PRN Reason: ADJUST RATE PER PROTOCOL Last Admin: 10/13/16 21:07 Dose: 18 units/kg/hr, 14.043 mls/hr Meropenem 1g/NS 100mL IVPB (Meropenem 1g/Ns 100ml Ivpb) 1 gm in 100 mls @ 100 mls/hr IVPB Q8 IZABELA PRN Reason: Protocol Stop: 10/20/16 22:46 Last Admin: 10/14/16 15:44 Dose: 100 mls/hr Dobutamine HCl/Dextrose (Dobutamine/Dextrose 5% 500mg/250ml) 500 mg in 250 mls @ 5.273 mls/hr IV .Q24H PRN; Protocol; 2.5 MCG/KG/MIN PRN Reason: TITRATE PER PROTOCOL Last Titration: 10/14/16 14:29 Dose: 0 mcg/kg/min, 0 mls/hr Metronidazole (Flagyl) 500 mg in 100 mls @ 100 mls/hr IVPB Q8 IZABELA PRN Reason: Protocol Last Admin: 10/14/16 14:06 Dose: 100 mls/hr Sodium Chloride (Sodium Chloride 0.9%) 1,000 mls @ 75 mls/hr IV .[id number] [facility] Insulin Detemir (Levemir) 20 unit SC DAILY [facility] Last Admin: 10/14/16 12:03 Dose: 20 unit Insulin Human Lispro (Humalog Med) 0 units SC ACHS I[facility]ABELA PRN Reason: Protocol Last Admin: 10/14/16 12:03 Dose: 3 units Metoprolol Tartrate (Lopressor) 5 mg IVP Q6H [facility] Last Admin: 10/14/16 10:22 Dose: Not Given Morphine Sulfate (Morphine) 2 mg IVP Q6H PRN PRN Reason: Pain, Mild (1-3) Last Admin: 10/13/16 16:29 Dose: 2 mg Pantoprazole Sodium (Protonix Inj) 40 mg IVP 0600 [facility] Last Admin: 10/14/16 05:24 Dose: 40 mg - Labs Labs: 10/14/16 04:05 10/14/16 11:30 PT 12.0 Seconds (9.9-11.8) H 10/13/16 13:20 INR 1.11 (0.93-1.08) H 10/13/16 13:20 APTT 37.2 Seconds (23.7-30.8) H 10/14/16 11:30 Attending/Attestation - Attestation I have personally seen and examined this patient.: Yes I have fully participated in the care of the patient.: Yes I have reviewed all pertinent clinical information, including history, physical exam and plan: Yes Notes (Text): 10/14/16 16:23 51 yo female with severe sepsis due to combination of right sided CAP and colitis, with MODS, including HONK, respiratory failure and severe lactic acidosis. Possibility of SIRS due to severe acute pancreatitis also likely. Large pleural effusion on a right side-r/o empyema. Leukocytosis worsened, episode of hypotension responded to fluid bolus and inotropic support (patient has underlying severe LV systolic dysfunction). Lactic acidosis resolved, bicarb drip switched to NS@75. Will continue broad spectrum abx with projected de-escalation if septic workup will be revealing. S/p thoracenthesis--ph fluid 8 -->unlikely empyema, rest of labs are pending, will add amylase to the labs of pleural fluid as well. ID service is following. Will continue with protective lung ventilation strategy, conservative fluid management if hemodynamics holds and conservative 02 management. HOB>35, daily weaning trials and daily sedation vacations. GI consult apprecated. Repeat lipase came back elevated at >770, taken together with CT abdo finding may represent acute pancreatitis, however patient is fluid resuscitated, lactic acidosis resolved, calcium supplemented, will start early enteral nutrition. Possibility of SIRS due to severe acute pancreatitis can not be ruled out especially in the setting of low procalcitonin level. Will get abdominal ultrasound to better evaluate CBD and gallbladder. surgical consult is appreciated--no surgical intervention at present time. Roc was added by COMPA. ccm time 40 min
[2016-10-14] MEDS: metroNIDAZOLE IV 500 mg/100 ml 500 MG/100 ML BAG IVPB SCH ×2 (14:06→21:11)
[2016-10-14] MEDS: Sodium Chloride 0.9% 1,000 ML IV SCH (14:55)
--- NOTE | 2016-10-14 15:05 | RAD ---
HISTORY: OGtube, thoracentesis COMPARISON: Earlier same day FINDINGS: LUNGS: No active pulmonary disease. PLEURA: There is improvement in the right-sided pleural effusion. Left pleural effusion is unchanged. No pneumothorax CARDIOVASCULAR: Normal. OSSEOUS STRUCTURES: No significant abnormalities. VISUALIZED UPPER ABDOMEN: Nasogastric tube seen just beyond the GE junction. Endotracheal tube unchanged OTHER FINDINGS: None. IMPRESSION: Nasogastric tube in satisfactory position. No evidence of right-sided pneumothorax following thoracentesis. Improved pleural effusion
[2016-10-14 15:34] LABS: BODY FLUID TYPE PLEURAL
[2016-10-14 16:29] LABS: BF GROSS APPEARANCE BLOODY (CLEAR)
[2016-10-14 16:31] LABS: BODY FLUID TOTAL COUNT 100 (0-0)
--- NOTE | 2016-10-14 18:08 | US ---
HISTORY: acute pancreatitis COMPARISON: None. TECHNIQUE: Sonographic evaluation of the abdomen. FINDINGS: LIVER: Measures 15.9 cm. Diffusely increased echogenicity of the liver parenchyma. Consistent with fatty infiltration. No mass. No biliary dilatation. GALLBLADDER: Status post cholecystectomy COMMON BILE DUCT: Measures 4 mm. No stones. No dilatation. PANCREAS: Unremarkable as visualized. No mass. No ductal dilatation. RIGHT KIDNEY: Measures 9.7cm. Normal echogenicity. No calculus, mass, or hydronephrosis. LEFT KIDNEY: Measures 10.6cm. Normal echogenicity. No calculus, mass, or hydronephrosis. SPLEEN: Normal in size and contour. No mass. AORTA: No aneurysmal dilatation. IVC: Unremarkable. OTHER FINDINGS: Ascites. Bilateral pleural effusion noted. IMPRESSION: Fatty infiltration of the liver. Ascites. Bilateral pleural effusion. Status post cholecystectomy. No additional abnormality.
--- NOTE | 2016-10-14 21:00 | CP.PCM.PN ---
Subjective - Date & Time of Evaluation Date of Evaluation: 10/14/16 Time of Evaluation: 14:00 - Subjective Subjective: Pt was seen and examined bedside. Pt is vented. Objective - Vital Signs/Intake and Output Vital Signs (last 24 hours): Temp Pulse Resp BP Pulse Ox 99 F 110 H 19 102/64 96 10/14/16 12:56 10/14/16 15:30 10/14/16 13:57 10/14/16 15:30 10/14/16 15:30 Intake and Output: 10/14/16 10/15/16 18:59 06:59 Intake Total 114.7 Output Total 2150 Balance 114.7 -2150 - Medications Medications: Current Medications Doxycycline Hyclate 100 mg/ (Sodium Chloride) 100 mls @ 100 mls/hr IVPB Q12 [facility]ELA PRN Reason: Protocol Last Admin: 10/14/16 09:55 Dose: 100 mls/hr Vancomycin HCl 1.5 gm/ Sodium (Chloride) 500 mls @ 167 mls/hr IVPB Q12H [facility]ELA PRN Reason: Protocol Last Admin: 10/14/16 15:12 Dose: 167 mls/hr Fentanyl Citrate (Fentanyl Citrate/Sodium Chloride 1 Mg/100 Ml) 1,000 mcg in 100 mls @ 7.5 mls/hr IV .[id number] PRN; Protocol; 75 MCG/HR PRN Reason: TITRATE PER MD ORDER Last Admin: 10/14/16 19:59 Dose: 75 mcg/hr, 7.5 mls/hr Heparin Sodium/Dextrose (Heparin 25,000 Units/250ml In D5w) 25,000 units in 250 mls @ 14.043 mls/hr IV .[id number] PRN; Protocol; 18 UNITS/KG/HR PRN Reason: ADJUST RATE PER PROTOCOL Last Admin: 10/13/16 21:07 Dose: 18 units/kg/hr, 14.043 mls/hr Meropenem 1g/NS 100mL IVPB (Meropenem 1g/Ns 100ml Ivpb) 1 gm in 100 mls @ 100 mls/hr IVPB Q8 I[facility]ABELA PRN Reason: Protocol Stop: 10/20/16 22:46 Last Admin: 10/14/16 15:44 Dose: 100 mls/hr Dobutamine HCl/Dextrose (Dobutamine/Dextrose 5% 500mg/250ml) 500 mg in 250 mls @ 5.273 mls/hr IV .Q24H PRN; Protocol; 2.5 MCG/KG/MIN PRN Reason: TITRATE PER PROTOCOL Last Titration: 10/14/16 14:29 Dose: 0 mcg/kg/min, 0 mls/hr Metronidazole (Flagyl) 500 mg in 100 mls @ 100 mls/hr IVPB Q8 IZABELA PRN Reason: Protocol Last Admin: 10/14/16 14:06 Dose: 100 mls/hr Sodium Chloride (Sodium Chloride 0.9%) 1,000 mls @ 75 mls/hr IV .[id number] [facility] Last Admin: 10/14/16 14:55 Dose: 75 mls/hr Insulin Detemir (Levemir) 20 unit SC DAILY [facility] Last Admin: 10/14/16 12:03 Dose: 20 unit Insulin Human Lispro (Humalog Med) 0 units SC ACHS [facility] PRN Reason: Protocol Last Admin: 10/14/16 16:56 Dose: 1 units Metoprolol Tartrate (Lopressor) 5 mg IVP Q6H [facility] Last Admin: 10/14/16 10:22 Dose: Not Given Morphine Sulfate (Morphine) 2 mg IVP Q6H PRN PRN Reason: Pain, Mild (1-3) Last Admin: 10/13/16 16:29 Dose: 2 mg Pantoprazole Sodium (Protonix Inj) 40 mg IVP 0600 [facility] Last Admin: 10/14/16 05:24 Dose: 40 mg - Labs Labs: 10/14/16 04:05 10/14/16 11:30 PT 12.0 Seconds (9.9-11.8) H 10/13/16 13:20 INR 1.11 (0.93-1.08) H 10/13/16 13:20 APTT 37.2 Seconds (23.7-30.8) H 10/14/16 11:30 - Constitutional Appears: Well, No Acute Distress - Eye Exam Eye Exam: Normal appearance - ENT Exam ENT Exam: Mucous Membranes Moist, Normal Exam - Respiratory Exam Respiratory Exam: Clear to Ausculation Bilateral. absent: Rales, Rhonchi, Wheezes Additional comments: pt on vent - Cardiovascular Exam Cardiovascular Exam: RRR, +S1, +S2. absent: Gallop, Rubs, Murmur - GI/Abdominal Exam GI & Abdominal Exam: Soft, Normal Bowel Sounds. absent: Distended, Rigid - Neurological Exam Additional comments: pt sedated - Skin Skin Exam: Normal Color, Warm. absent: Cyanosis, Pallor Assessment and Plan - Assessment and Plan (Free Text) Assessment: 51 y/o female with PMHx of DM2, CHF (EF 30% in 03/2016), HTN, chronic pulmonary effusion, HTN, DVT, PE, hypothyroidism, schizophrenia and Bipolar disorder presented to the ED with complaints of abdominal pain x1week. 1. Severe sepsis likely 2/2 CAP vs colitis vs pancreatitis - s/p thoracentesis (pH 8) unlikely empyema - continue meronepem, flagyl, vancomycin - Leukocytosis worsening - procalcitonin level low - Lipase 770 - ID consulted - Surgery is consulted- no surgical intervention needed - GI consulted 2. HONK resolved - FS 185 - continue Levemir 20u daily, and Humalog 3. Respiratory failure - continue protective lung ventilation - daily weaning trials 4. Lactic acidosis - resolved 5. Hypotension - dobutamine PRN PTX/ Heparin Patient seen, discussed and evaluated with attending, Dr. Vignesh Flynn, PGY1
[2016-10-14] MEDS: Heparin 25,000units in D5W 25,000 UNITS/250 ML BAG IV PRN (22:21)
[2016-10-15] MEDS: Vancomycin 1.5 GM in Sodium Chloride 0.9% 500 ML IVPB SCH ×2 (01:30→14:37)
[2016-10-15] MEDS: Sodium Chloride 0.9% 1,000 ML IV SCH (04:00)
[2016-10-15 04:55] LABS: ALB/GLOB RATIO 0.9 (1.1-1.8); ALBUMIN 2.6 g/dL (3.0-4.8); BLOOD UREA NITROGEN 30 mg/dL (7-21); CALCIUM 7.7 mg/dL (8.4-10.5); GFR AFRICAN-AMERICAN > 60; GFR NON-AFRICAN AMERICAN 52
[2016-10-15] MEDS: Meropenem 1g/NS 100mL IVPB 1 GM/100 ML PIGGYBACK IVPB SCH ×3 (05:23→22:23)
[2016-10-15 05:27] LABS: ALT/SGPT 1923 U/L (7-56); AST/SGOT 2109 U/L (15-39)
[2016-10-15 05:30] LABS: BASO # 0.09 K/mm3 (0.0-2.0); BASO % 0.5 % (0.0-3.0); EOS # 0.1 (0.0-0.7); EOS % 0.4 % (1.5-5.0); GRAN # 15.27 (1.4-6.5); GRAN % 76.5 % (50.0-68.0); HEMOGLOBIN 11.7 gm/dL (12.0-16.0); LYMPH # 2.8 (1.2-3.4); LYMPH % 14.3 % (22.0-35.0); MEAN CELL VOLUME 79.4 fL (80.0-105.0); MEAN CORPUSCULAR HEMOGLOBIN 25.7 pg (25.0-35.0); MEAN CORPUSCULAR HGB CONC 32.3 g/dl (31.0-37.0); MEAN PLATELET VOLUME 11.1 fl (7.0-11.0); MONO # 1.7 (0.1-0.6); MONO % 8.3 % (1.0-6.0); PLATELET COUNT 383 10^3/uL (120.0-450.0); RBC 4.56 10^6/uL (3.5-6.1); RED CELL DISTRIBUTION WIDTH 21.6 % (11.5-14.5); WHITE BLOOD COUNT 19.9 10^3/ul (4.5-11.0)
[2016-10-15] MEDS: metroNIDAZOLE IV 500 mg/100 ml 500 MG/100 ML BAG IVPB SCH (05:53)
[2016-10-15 06:37] LABS: ARTERIAL BLOOD GAS HEMOGLOBIN 11.1 g/dL (11.7-17.4); ARTERIAL BLOOD GAS O2 CAPACITY 15.2 mL/dl (16-24); ARTERIAL BLOOD GAS O2 SAT 85.7 % (95-98); ARTERIAL BLOOD GAS PCO2 33 mm/Hg (35-45); ARTERIAL BLOOD GAS PH 7.32 (7.35-7.45)
--- NOTE | 2016-10-15 07:59 | CP.PCM.PN ---
Subjective - Date & Time of Evaluation Date of Evaluation: 10/15/16 Time of Evaluation: 07:56 - Subjective Subjective: General Surgery PGY [address] Philippe Patient seen and examined this AM. No acute events over night. Patient currently on vent. Objective - Vital Signs/Intake and Output Vital Signs (last 24 hours): Temp Pulse Resp BP Pulse Ox 98.6 F 115 H 19 130/69 94 L 10/15/16 04:00 10/15/16 07:00 10/14/16 13:57 10/15/16 05:15 10/15/16 05:15 Intake and Output: 10/15/16 10/15/16 06:59 18:59 Intake Total 2212 Output Total 2400 Balance -188 - Medications Medications: Current Medications Doxycycline Hyclate 100 mg/ (Sodium Chloride) 100 mls @ 100 mls/hr IVPB Q12 [facility] PRN Reason: Protocol Last Admin: 10/14/16 21:41 Dose: 100 mls/hr Vancomycin HCl 1.5 gm/ Sodium (Chloride) 500 mls @ 167 mls/hr IVPB Q12H [facility] PRN Reason: Protocol Last Admin: 10/15/16 01:30 Dose: 167 mls/hr Fentanyl Citrate (Fentanyl Citrate/Sodium Chloride 1 Mg/100 Ml) 1,000 mcg in 100 mls @ 7.5 mls/hr IV .[id number] PRN; Protocol; 75 MCG/HR PRN Reason: TITRATE PER MD ORDER Last Admin: 10/14/16 19:59 Dose: 75 mcg/hr, 7.5 mls/hr Heparin Sodium/Dextrose (Heparin 25,000 Units/250ml In D5w) 25,000 units in 250 mls @ 14.043 mls/hr IV .[id number] PRN; Protocol; 18 UNITS/KG/HR PRN Reason: ADJUST RATE PER PROTOCOL Last Admin: 10/14/16 22:21 Dose: 18 units/kg/hr, 14.043 mls/hr Meropenem 1g/NS 100mL IVPB (Meropenem 1g/Ns 100ml Ivpb) 1 gm in 100 mls @ 100 mls/hr IVPB Q8 [facility] PRN Reason: Protocol Stop: 10/20/16 22:46 Last Admin: 10/15/16 05:23 Dose: 100 mls/hr Dobutamine HCl/Dextrose (Dobutamine/Dextrose 5% 500mg/250ml) 500 mg in 250 mls @ 5.273 mls/hr IV .Q24H PRN; Protocol; 2.5 MCG/KG/MIN PRN Reason: TITRATE PER PROTOCOL Last Titration: 10/14/16 14:29 Dose: 0 mcg/kg/min, 0 mls/hr Metronidazole (Flagyl) 500 mg in 100 mls @ 100 mls/hr IVPB Q8 [facility] PRN Reason: Protocol Last Admin: 10/15/16 05:53 Dose: 100 mls/hr Sodium Chloride (Sodium Chloride 0.9%) 1,000 mls @ 75 mls/hr IV .[id number] [facility] Last Admin: 10/15/16 04:00 Dose: 75 mls/hr Insulin Detemir (Levemir) 20 unit SC DAILY [facility] Last Admin: 10/14/16 12:03 Dose: 20 unit Insulin Human Lispro (Humalog Med) 0 units SC ACHS [facility] PRN Reason: Protocol Last Admin: 10/14/16 21:39 Dose: Not Given Metoprolol Tartrate (Lopressor) 5 mg IVP Q6H [facility] Last Admin: 10/14/16 10:22 Dose: Not Given Morphine Sulfate (Morphine) 2 mg IVP Q6H PRN PRN Reason: Pain, Mild (1-3) Last Admin: 10/13/16 16:29 Dose: 2 mg Pantoprazole Sodium (Protonix Inj) 40 mg IVP 0600 [facility] Last Admin: 10/15/16 05:31 Dose: 40 mg - Labs Labs: 10/15/16 04:35 10/15/16 04:35 PT 12.0 Seconds (9.9-11.8) H 10/13/16 13:20 INR 1.11 (0.93-1.08) H 10/13/16 13:20 APTT 49.9 Seconds (23.7-30.8) H 10/15/16 04:35 - Head Exam Head Exam: ATRAUMATIC - ENT Exam ENT Exam: Mucous Membranes Moist - Respiratory Exam Additional comments: On vent - Cardiovascular Exam Cardiovascular Exam: REGULAR RHYTHM - GI/Abdominal Exam GI & Abdominal Exam: Soft. absent: Tenderness - Neurological Exam Neurological Exam: Alert, Awake Assessment and Plan - Assessment and Plan (Free Text) Assessment: 51 yo female with severe sepsis secondary to Colitis or right sided CAP. * Hyperglycemic Hyperosmolar Non-Ketotic Coma secondary to severe sepsis Plan: Abdominal pain has resolved. No surgical intervention at this time. Please re- consult if needed. Jori Chavez PGY 1
[2016-10-15] MEDS: Insulin Lispro (humaLOG) MEDIUM Coverage SC SCH ×4 (08:49→22:12)
[2016-10-15 08:58] LABS: ARTERIAL BLOOD GAS HCO3 17.4 mmol/L (21-28); ARTERIAL BLOOD GAS HEMOGLOBIN 11.6 g/dL (11.7-17.4); ARTERIAL BLOOD GAS O2 CAPACITY 15.9 mL/dl (16-24); ARTERIAL BLOOD GAS O2 CONTENT 15.4 ML/dl (15-23); ARTERIAL BLOOD GAS PCO2 33 mm/Hg (35-45); ARTERIAL BLOOD GAS TCO2 18.4 mmol.L (22-28)
[2016-10-15 09:00] LABS: ARTERIAL BLOOD GAS PH 7.33 (7.35-7.45)
--- NOTE | 2016-10-15 09:03 | RAD ---
HISTORY: s/p effusion COMPARISON: 10/14/2016 FINDINGS: LUNGS: No active pulmonary disease. PLEURA: There is a decrease in the size of the left pleural effusion and left-sided infiltrate. CARDIOVASCULAR: Normal. OSSEOUS STRUCTURES: No significant abnormalities. VISUALIZED UPPER ABDOMEN: Normal. OTHER FINDINGS: Endotracheal and nasogastric tubes in satisfactory position IMPRESSION: Improvement in left-sided effusion and infiltrate
--- NOTE | 2016-10-15 10:33 | CP.CCUPN ---
CCU Subjective - Physician Review Events Since Last Encounter (Free Text): 10/15/16 10:26 No acute events overnight Remains intubated off all vasopressors Able to follow commands on Fentanyl Currently on PS trial SBT. CCU Objective - Vital Signs / Intake & Output Vital Signs (Last 4 hours): Vital Signs Temp Pulse Resp BP Pulse Ox 10/15/16 10:16 111 H 10/15/16 10:00 111 H 20 95 10/15/16 09:50 124 H 95 10/15/16 09:45 115 H 126/73 95 10/15/16 09:40 119 H 95 10/15/16 09:30 118 H 132/71 94 L 10/15/16 09:20 116 H 94 L 10/15/16 09:19 135/68 10/15/16 09:15 121 H 136/77 93 L 10/15/16 09:10 128 H 94 L 10/15/16 09:00 114 H 126/69 97 10/15/16 08:50 113 H 96 10/15/16 08:45 114 H 126/69 96 10/15/16 08:40 116 H 94 L 10/15/16 08:30 124 H 126/72 91 L 10/15/16 08:20 111 H 96 10/15/16 08:15 114 H 118/64 96 10/15/16 08:10 119 H 97 10/15/16 08:00 98.2 F 111 H 120/66 96 10/15/16 07:50 113 H 96 10/15/16 07:45 120 H 112/58 L 97 10/15/16 07:40 111 H 96 10/15/16 07:30 115 H 129/69 96 10/15/16 07:20 120 H 96 10/15/16 07:15 120 H 134/78 96 10/15/16 07:10 115 H 96 10/15/16 07:00 123 H 141/100 H 95 10/15/16 06:50 126 H 96 10/15/16 06:45 115 H 129/76 96 10/15/16 06:40 119 H 97 10/15/16 06:30 119 H 122/66 95 Intake and Output (Last 8hrs): Intake & Output 10/14/16 10/15/16 10/15/16 22:59 06:59 14:59 Intake Total 2212 Output Total 2150 250 Balance -2150 1961 Weight 165 lb 162 lb Intake: IV 992 Fentanyl 83 Heparin 84 Nsaline 825 Oral 220 Other 1000 Output: Urine 150 250 Urethral (Witt) 150 250 Other 2000 Other: Voiding Method Indwelling Catheter Indwelling Catheter # Bowel Movements 0 - Physical Exam Head: Positive for: Atraumatic, Normocephalic Pupils: Positive for: PERRL Extroacular Muscles: Positive for: EOMI Conjunctiva: Positive for: Normal Mouth: Positive for: Moist Mucous Membranes, Other (ett in place) Pharnyx: Negative for: Normal, ERYTHEMA, EXUDATE, TONSILS ENLARGED, Peritonsilar Swelling, Uvular Deviation, Muffled/Hoarse Voice, Str[place], Soft Palate/Uvular Edema, Other Neck: Positive for: Normal Range of Motion Respiratory/Chest: Positive for: Clear to Auscultation, Good Air Exchange Cardiovascular: Positive for: Regular Rate and Rhythm Abdomen: Positive for: Tenderness Upper Extremity: Positive for: Normal Inspection Lower Extremity: Positive for: Normal Inspection - Medications Active Medications: Active Medications Generic Name Dose Route Start Last Admin Trade Name Freq PRN Reason Stop Dose Admin Doxycycline Hyclate 100 mg/ 100 mls @ 100 mls/hr 10/13/16 22:00 10/14/16 21: 41 Sodium Chloride IVPB 100 mls/hr Q12 IZABELA Administration Protocol Vancomycin HCl 1.5 gm/ Sodium 500 mls @ 167 mls/hr 10/14/16 02:00 10/15/16 01 :30 Chloride IVPB 167 mls/hr Q12H IZABELA Administration Protocol Fentanyl Citrate 1,000 mcg in 100 mls @ 7.5 mls/hr 10/13/16 17:51 10/14/16 19 :59 Fentanyl Citrate/Sodium Chloride 1 Mg/100 Ml IV 75 mcg/hr .[id number] PRN 7.5 mls/hr TITRATE PER MD ORDER Administration Protocol 75 MCG/HR Heparin Sodium/Dextrose 25,000 units in 250 mls @ 14.043 mls/hr 10/13/16 18: 17 10/14/16 22:21 Heparin 25,000 Units/250ml In D5w IV 18 units/kg/hr .[id number] PRN 14.043 mls/hr ADJUST RATE PER PROTOCOL Administration Protocol 18 UNITS/KG/HR Meropenem 1g/NS 100mL IVPB 1 gm in 100 mls @ 100 mls/hr 10/13/16 22:45 05:23 Meropenem 1g/Ns 100ml Ivpb IVPB 10/20/16 22:46 100 mls/hr Q8 IZABELA Administration Protocol Dobutamine HCl/Dextrose 500 mg in 250 mls @ 5.273 mls/hr 10/14/16 11:26 10/14 14:29 Dobutamine/Dextrose 5% 500mg/250ml IV 0 mcg/kg/min .Q24H PRN 0 mls/hr TITRATE PER PROTOCOL Titration Protocol 2.5 MCG/KG/MIN Metronidazole 500 mg in 100 mls @ 100 mls/hr 10/14/16 14:00 10/15/16 05:53 Flagyl IVPB 100 mls/hr Q8 IZABELA Administration Protocol Sodium Chloride 1,000 mls @ 75 mls/hr 10/14/16 14:45 10/15/16 04:00 Sodium Chloride 0.9% IV 75 mls/hr .[id number] IZABELA Administration Insulin Detemir 20 unit 10/14/16 11:30 10/14/16 12:03 Levemir SC 20 unit DAILY IZABELA Administration Insulin Human Lispro 0 units 10/14/16 11:30 10/15/16 08:49 Humalog Med SC 6 units ACHS IZABELA Administration Protocol Metoprolol Tartrate 5 mg 10/13/16 16:00 10/14/16 10:22 Lopressor IVP Not Given Q6H [facility] Morphine Sulfate 2 mg 10/13/16 16:06 10/13/16 16:29 Morphine IVP 2 mg Q6H PRN Administration Pain, Mild (1-3) Pantoprazole Sodium 40 mg 10/13/16 16:00 10/15/16 05:31 Protonix Inj IVP 40 mg 0600 IZABELA Administration - Patient Studies Lab Studies: Microbiology Studies 10/13/16 15:30 Blood Culture - Preliminary Blood NO GROWTH AFTER 24 HOURS 10/13/16 15:00 Blood Culture - Preliminary Blood NO GROWTH AFTER 24 HOURS 10/13/16 15:15 MRSA Culture (Admit) - Final Nose MRSA NOT DETECTED Lab Studies 10/15/16 10/15/16 10/15/16 Range/Units 08:52 07:30 05:55 WBC (4.5-11.0) 10^3/ul RBC (3.5-6.1) 10^6/uL Hgb (12.0-16.0) gm/dL Hct (36.0-48.0) % MCV (80.0-105.0) fL MCH (25.0-35.0) pg MCHC (31.0-37.0) g/dl RDW (11.5-14.5) % Plt Count (120.0-450.0) 10^3/uL MPV (7.0-11.0) fl Gran % (50.0-68.0) % Lymph % (Auto) (22.0-35.0) % [place] % (Auto) (1.0-6.0) % Eos % (Auto) (1.5-5.0) % Baso % (Auto) (0.0-3.0) % Gran # (1.4-6.5) Lymph # (1.2-3.4) [place] # (0.1-0.6) Eos # (0.0-0.7) Baso # (0.0-2.0) K/mm3 APTT (23.7-30.8) Seconds pCO2 33 L 33 L (35-45) mm/Hg pO2 74.0 L 49.0 L (80-100) mm/Hg HCO3 17.4 L 17.0 L (21-28) mmol/L ABG pH 7.33 L 7.32 L (7.35-7.45) ABG Total CO2 18.4 L 18.0 L (22-28) mmol.L ABG O2 Saturation 97.0 85.7 L (95-98) % ABG O2 Content 15.4 13.0 L (15-23) ML/dl ABG Base Excess -7.6 L -8.2 L (-2.0-3.0) mmol/L ABG Hemoglobin 11.6 L 11.1 L (11.7-17.4) g/dL ABG Carboxyhemoglobin 2.4 H 2.2 H (0.5-1.5) % POC ABG HHb (Measured) 2.9 13.9 H (0-5) % ABG Methemoglobin 0.6 0.9 (0.0-3.0) % ABG O2 Capacity 15.9 L 15.2 L (16-24) mL/dl Hgb O2 Saturation 94.1 L 83.0 L (95.0-98.0) % FiO2 30.0 30.0 % Sodium (132-148) mmol/L Potassium (3.6-5.0) mmol/L Chloride (95-110) mmol/L Carbon Dioxide (21-33) mmol/L Anion Gap (10-20) BUN (7-21) mg/dL Creatinine (0.5-1.4) mg/dL Est GFR ( Amer) Est GFR (Non-Af Amer) POC Glucose (mg/dL) 268 H (65-110) mg/dL Random Glucose (70-110) mg/dL Calcium (8.4-10.5) mg/dL Total Bilirubin (0.2-1.3) mg/dL AST (15-39) U/L ALT (7-56) U/L Alkaline Phosphatase (38-133) U/L C-React Prot High Sens (1.00-3.00) mg/L Total Protein (5.8-8.3) g/dL Albumin (3.0-4.8) g/dL Globulin gm/dL Albumin/Globulin Ratio (1.1-1.8) Lipase (23-300) U/L Procalcitonin (0.19-0.49) NG/ML Fluid Source Fluid Appearance (CLEAR) Fluid WBC (0.0-300.0) /uL Fluid RBC (0.0-0.0) /uL Fluid Tot Cell Count (0-0) Fluid Neutrophils (0-0) % Fluid Lymphocytes (0-0) % Fld Monocyte/Macrophag Fluid Comment Pleural pH Ur L.pneumophila Ag (NEGATIVE) 10/15/16 10/15/16 10/15/16 Range/Units 04:35 04:35 04:35 WBC 19.9 H (4.5-11.0) 10^3/ul RBC 4.56 (3.5-6.1) 10^6/uL Hgb 11.7 L (12.0-16.0) gm/dL Hct 36.2 (36.0-48.0) % MCV 79.4 L (80.0-105.0) fL MCH 25.7 (25.0-35.0) pg MCHC 32.3 (31.0-37.0) g/dl RDW 21.6 H (11.5-14.5) % Plt Count 383 (120.0-450.0) 10^3/uL MPV 11.1 H (7.0-11.0) fl Gran % 76.5 H (50.0-68.0) % Lymph % (Auto) 14.3 L (22.0-35.0) % [place] % (Auto) 8.3 H (1.0-6.0) % Eos % (Auto) 0.4 L (1.5-5.0) % Baso % (Auto) 0.5 (0.0-3.0) % Gran # 15.27 H (1.4-6.5) Lymph # 2.8 (1.2-3.4) [place] # 1.7 H (0.1-0.6) Eos # 0.1 (0.0-0.7) Baso # 0.09 (0.0-2.0) K/mm3 APTT 49.9 H (23.7-30.8) Seconds pCO2 (35-45) mm/Hg pO2 (80-100) mm/Hg HCO3 (21-28) mmol/L ABG pH (7.35-7.45) ABG Total CO2 (22-28) mmol.L ABG O2 Saturation (95-98) % ABG O2 Content (15-23) ML/dl ABG Base Excess (-2.0-3.0) mmol/L ABG Hemoglobin (11.7-17.4) g/dL ABG Carboxyhemoglobin (0.5-1.5) % POC ABG HHb (Measured) (0-5) % ABG Methemoglobin (0.0-3.0) % ABG O2 Capacity (16-24) mL/dl Hgb O2 Saturation (95.0-98.0) % FiO2 % Sodium 135 (132-148) mmol/L Potassium 3.9 (3.6-5.0) mmol/L Chloride 107 (95-110) mmol/L Carbon Dioxide 18 L (21-33) mmol/L Anion Gap 14 (10-20) BUN 30 H (7-21) mg/dL Creatinine 1.1 (0.5-1.4) mg/dL Est GFR ( Amer) > 60 Est GFR (Non-Af Amer) 52 POC Glucose (mg/dL) (65-110) mg/dL Random Glucose 196 H (70-110) mg/dL Calcium 7.7 L (8.4-10.5) mg/dL Total Bilirubin 0.8 (0.2-1.3) mg/dL AST 2109 H (15-39) U/L ALT 1923 H (7-56) U/L Alkaline Phosphatase 201 H (38-133) U/L C-React Prot High Sens (1.00-3.00) mg/L Total Protein 5.5 L (5.8-8.3) g/dL Albumin 2.6 L (3.0-4.8) g/dL Globulin 2.9 gm/dL Albumin/Globulin Ratio 0.9 L (1.1-1.8) Lipase (23-300) U/L Procalcitonin (0.19-0.49) NG/ML Fluid Source Fluid Appearance (CLEAR) Fluid WBC (0.0-300.0) /uL Fluid RBC (0.0-0.0) /uL Fluid Tot Cell Count (0-0) Fluid Neutrophils (0-0) % Fluid Lymphocytes (0-0) % Fld Monocyte/Macrophag Fluid Comment Pleural pH Ur L.pneumophila Ag (NEGATIVE) 10/14/16 10/14/16 10/14/16 Range/Units 21:36 16:19 16:00 WBC (4.5-11.0) 10^3/ul RBC (3.5-6.1) 10^6/uL Hgb (12.0-16.0) gm/dL Hct (36.0-48.0) % MCV (80.0-105.0) fL MCH (25.0-35.0) pg MCHC (31.0-37.0) g/dl RDW (11.5-14.5) % Plt Count (120.0-450.0) 10^3/uL MPV (7.0-11.0) fl Gran % (50.0-68.0) % Lymph % (Auto) (22.0-35.0) % [place] % (Auto) (1.0-6.0) % Eos % (Auto) (1.5-5.0) % Baso % (Auto) (0.0-3.0) % Gran # (1.4-6.5) Lymph # (1.2-3.4) [place] # (0.1-0.6) Eos # (0.0-0.7) Baso # (0.0-2.0) K/mm3 APTT (23.7-30.8) Seconds pCO2 (35-45) mm/Hg pO2 (80-100) mm/Hg HCO3 (21-28) mmol/L ABG pH (7.35-7.45) ABG Total CO2 (22-28) mmol.L ABG O2 Saturation (95-98) % ABG O2 Content (15-23) ML/dl ABG Base Excess (-2.0-3.0) mmol/L ABG Hemoglobin (11.7-17.4) g/dL ABG Carboxyhemoglobin (0.5-1.5) % POC ABG HHb (Measured) (0-5) % ABG Methemoglobin (0.0-3.0) % ABG O2 Capacity (16-24) mL/dl Hgb O2 Saturation (95.0-98.0) % FiO2 % Sodium (132-148) mmol/L Potassium (3.6-5.0) mmol/L Chloride (95-110) mmol/L Carbon Dioxide (21-33) mmol/L Anion Gap (10-20) BUN (7-21) mg/dL Creatinine (0.5-1.4) mg/dL Est GFR ( Amer) Est GFR (Non-Af Amer) POC Glucose (mg/dL) 194 H 184 H (65-110) mg/dL Random Glucose (70-110) mg/dL Calcium (8.4-10.5) mg/dL Total Bilirubin (0.2-1.3) mg/dL AST (15-39) U/L ALT (7-56) U/L Alkaline Phosphatase (38-133) U/L C-React Prot High Sens (1.00-3.00) mg/L Total Protein (5.8-8.3) g/dL Albumin (3.0-4.8) g/dL Globulin gm/dL Albumin/Globulin Ratio (1.1-1.8) Lipase (23-300) U/L Procalcitonin (0.19-0.49) NG/ML Fluid Source Fluid Appearance (CLEAR) Fluid WBC (0.0-300.0) /uL Fluid RBC (0.0-0.0) /uL Fluid Tot Cell Count (0-0) Fluid Neutrophils (0-0) % Fluid Lymphocytes (0-0) % Fld Monocyte/Macrophag Fluid Comment Pleural pH Ur L.pneumophila Ag Negative (NEGATIVE) 10/14/16 10/14/16 10/14/16 Range/Units 14:15 14:15 11:53 WBC (4.5-11.0) 10^3/ul RBC (3.5-6.1) 10^6/uL Hgb (12.0-16.0) gm/dL Hct (36.0-48.0) % MCV (80.0-105.0) fL MCH (25.0-35.0) pg MCHC (31.0-37.0) g/dl RDW (11.5-14.5) % Plt Count (120.0-450.0) 10^3/uL MPV (7.0-11.0) fl Gran % (50.0-68.0) % Lymph % (Auto) (22.0-35.0) % [place] % (Auto) (1.0-6.0) % Eos % (Auto) (1.5-5.0) % Baso % (Auto) (0.0-3.0) % Gran # (1.4-6.5) Lymph # (1.2-3.4) [place] # (0.1-0.6) Eos # (0.0-0.7) Baso # (0.0-2.0) K/mm3 APTT (23.7-30.8) Seconds pCO2 (35-45) mm/Hg pO2 (80-100) mm/Hg HCO3 (21-28) mmol/L ABG pH (7.35-7.45) ABG Total CO2 (22-28) mmol.L ABG O2 Saturation (95-98) % ABG O2 Content (15-23) ML/dl ABG Base Excess (-2.0-3.0) mmol/L ABG Hemoglobin (11.7-17.4) g/dL ABG Carboxyhemoglobin (0.5-1.5) % POC ABG HHb (Measured) (0-5) % ABG Methemoglobin (0.0-3.0) % ABG O2 Capacity (16-24) mL/dl Hgb O2 Saturation (95.0-98.0) % FiO2 % Sodium (132-148) mmol/L Potassium (3.6-5.0) mmol/L Chloride (95-110) mmol/L Carbon Dioxide (21-33) mmol/L Anion Gap (10-20) BUN (7-21) mg/dL Creatinine (0.5-1.4) mg/dL Est GFR ( Amer) Est GFR (Non-Af Amer) POC Glucose (mg/dL) 205 H (65-110) mg/dL Random Glucose (70-110) mg/dL Calcium (8.4-10.5) mg/dL Total Bilirubin (0.2-1.3) mg/dL AST (15-39) U/L ALT (7-56) U/L Alkaline Phosphatase (38-133) U/L C-React Prot High Sens (1.00-3.00) mg/L Total Protein (5.8-8.3) g/dL Albumin (3.0-4.8) g/dL Globulin gm/dL Albumin/Globulin Ratio (1.1-1.8) Lipase (23-300) U/L Procalcitonin (0.19-0.49) NG/ML Fluid Source Pleural Fluid Appearance Bloody (CLEAR) Fluid WBC 270.0 (0.0-300.0) /uL Fluid RBC 31720.0 H (0.0-0.0) /uL Fluid Tot Cell Count 100 H (0-0) Fluid Neutrophils 18.5 H (0-0) % Fluid Lymphocytes 81.5 H (0-0) % Fld Monocyte/Macrophag TEST NOT PERFORMED Fluid Comment Cloudy Pleural pH 8.0 Ur L.pneumophila Ag (NEGATIVE) 10/14/16 10/14/16 10/14/16 Range/Units 11:30 11:30 08:12 WBC (4.5-11.0) 10^3/ul RBC (3.5-6.1) 10^6/uL Hgb (12.0-16.0) gm/dL Hct (36.0-48.0) % MCV (80.0-105.0) fL MCH (25.0-35.0) pg MCHC (31.0-37.0) g/dl RDW (11.5-14.5) % Plt Count (120.0-450.0) 10^3/uL MPV (7.0-11.0) fl Gran % (50.0-68.0) % Lymph % (Auto) (22.0-35.0) % [place] % (Auto) (1.0-6.0) % Eos % (Auto) (1.5-5.0) % Baso % (Auto) (0.0-3.0) % Gran # (1.4-6.5) Lymph # (1.2-3.4) [place] # (0.1-0.6) Eos # (0.0-0.7) Baso # (0.0-2.0) K/mm3 APTT 37.2 H (23.7-30.8) Seconds pCO2 (35-45) mm/Hg pO2 (80-100) mm/Hg HCO3 (21-28) mmol/L ABG pH (7.35-7.45) ABG Total CO2 (22-28) mmol.L ABG O2 Saturation (95-98) % ABG O2 Content (15-23) ML/dl ABG Base Excess (-2.0-3.0) mmol/L ABG Hemoglobin (11.7-17.4) g/dL ABG Carboxyhemoglobin (0.5-1.5) % POC ABG HHb (Measured) (0-5) % ABG Methemoglobin (0.0-3.0) % ABG O2 Capacity (16-24) mL/dl Hgb O2 Saturation (95.0-98.0) % FiO2 % Sodium 132 (132-148) mmol/L Potassium 4.0 (3.6-5.0) mmol/L Chloride 105 (95-110) mmol/L Carbon Dioxide 21 (21-33) mmol/L Anion Gap 10 (10-20) BUN 23 H (7-21) mg/dL Creatinine 1.0 (0.5-1.4) mg/dL Est GFR ( Amer) > 60 Est GFR (Non-Af Amer) 58 POC Glucose (mg/dL) 173 H (65-110) mg/dL Random Glucose 185 H (70-110) mg/dL Calcium 7.4 L (8.4-10.5) mg/dL Total Bilirubin (0.2-1.3) mg/dL AST (15-39) U/L ALT (7-56) U/L Alkaline Phosphatase (38-133) U/L C-React Prot High Sens (1.00-3.00) mg/L Total Protein (5.8-8.3) g/dL Albumin (3.0-4.8) g/dL Globulin gm/dL Albumin/Globulin Ratio (1.1-1.8) Lipase 778 H (23-300) U/L Procalcitonin (0.19-0.49) NG/ML Fluid Source Fluid Appearance (CLEAR) Fluid WBC (0.0-300.0) /uL Fluid RBC (0.0-0.0) /uL Fluid Tot Cell Count (0-0) Fluid Neutrophils (0-0) % Fluid Lymphocytes (0-0) % Fld Monocyte/Macrophag Fluid Comment Pleural pH Ur L.pneumophila Ag (NEGATIVE) 10/14/16 10/14/16 Range/Units 07:50 05:00 WBC (4.5-11.0) 10^3/ul RBC (3.5-6.1) 10^6/uL Hgb (12.0-16.0) gm/dL Hct (36.0-48.0) % MCV (80.0-105.0) fL MCH (25.0-35.0) pg MCHC (31.0-37.0) g/dl RDW (11.5-14.5) % Plt Count (120.0-450.0) 10^3/uL MPV (7.0-11.0) fl Gran % (50.0-68.0) % Lymph % (Auto) (22.0-35.0) % [place] % (Auto) (1.0-6.0) % Eos % (Auto) (1.5-5.0) % Baso % (Auto) (0.0-3.0) % Gran # (1.4-6.5) Lymph # (1.2-3.4) [place] # (0.1-0.6) Eos # (0.0-0.7) Baso # (0.0-2.0) K/mm3 APTT (23.7-30.8) Seconds pCO2 (35-45) mm/Hg pO2 (80-100) mm/Hg HCO3 (21-28) mmol/L ABG pH (7.35-7.45) ABG Total CO2 (22-28) mmol.L ABG O2 Saturation (95-98) % ABG O2 Content (15-23) ML/dl ABG Base Excess (-2.0-3.0) mmol/L ABG Hemoglobin (11.7-17.4) g/dL ABG Carboxyhemoglobin (0.5-1.5) % POC ABG HHb (Measured) (0-5) % ABG Methemoglobin (0.0-3.0) % ABG O2 Capacity (16-24) mL/dl Hgb O2 Saturation (95.0-98.0) % FiO2 % Sodium (132-148) mmol/L Potassium (3.6-5.0) mmol/L Chloride (95-110) mmol/L Carbon Dioxide (21-33) mmol/L Anion Gap (10-20) BUN (7-21) mg/dL Creatinine (0.5-1.4) mg/dL Est GFR ( Amer) Est GFR (Non-Af Amer) POC Glucose (mg/dL) (65-110) mg/dL Random Glucose (70-110) mg/dL Calcium (8.4-10.5) mg/dL Total Bilirubin (0.2-1.3) mg/dL AST (15-39) U/L ALT (7-56) U/L Alkaline Phosphatase (38-133) U/L C-React Prot High Sens > 15.00 H (1.00-3.00) mg/L Total Protein (5.8-8.3) g/dL Albumin (3.0-4.8) g/dL Globulin gm/dL Albumin/Globulin Ratio (1.1-1.8) Lipase (23-300) U/L Procalcitonin 0.28 (0.19-0.49) NG/ML Fluid Source Fluid Appearance (CLEAR) Fluid WBC (0.0-300.0) /uL Fluid RBC (0.0-0.0) /uL Fluid Tot Cell Count (0-0) Fluid Neutrophils (0-0) % Fluid Lymphocytes (0-0) % Fld Monocyte/Macrophag Fluid Comment Pleural pH Ur L.pneumophila Ag (NEGATIVE) Laboratory Results - last 24 hr 10/14/16 10/14/16 10/14/16 05:00 07:50 08:12 WBC RBC Hgb Hct MCV MCH MCHC RDW Plt Count MPV Gran % Lymph % (Auto) [place] % (Auto) Eos % (Auto) Baso % (Auto) Gran # Lymph # [place] # Eos # Baso # APTT pCO2 pO2 HCO3 ABG pH ABG Total CO2 ABG O2 Saturation ABG O2 Content ABG Base Excess ABG Hemoglobin ABG Carboxyhemoglobin POC ABG HHb (Measured) ABG Methemoglobin ABG O2 Capacity Hgb O2 Saturation FiO2 Sodium Potassium Chloride Carbon Dioxide Anion Gap BUN Creatinine Est GFR ( Amer) Est GFR (Non-Af Amer) POC Glucose (mg/dL) 173 H Random Glucose Calcium Total Bilirubin AST ALT Alkaline Phosphatase C-React Prot High Sens > 15.00 H Total Protein Albumin Globulin Albumin/Globulin Ratio Lipase Procalcitonin 0.28 Fluid Source Fluid Appearance Fluid WBC Fluid RBC Fluid Tot Cell Count Fluid Neutrophils Fluid Lymphocytes Fld Monocyte/Macrophag Fluid Comment Pleural pH Ur L.pneumophila Ag 10/14/16 10/14/16 10/14/16 11:30 11:30 11:53 WBC RBC Hgb Hct MCV MCH MCHC RDW Plt Count MPV Gran % Lymph % (Auto) [place] % (Auto) Eos % (Auto) Baso % (Auto) Gran # Lymph # [place] # Eos # Baso # APTT 37.2 H pCO2 pO2 HCO3 ABG pH ABG Total CO2 ABG O2 Saturation ABG O2 Content ABG Base Excess ABG Hemoglobin ABG Carboxyhemoglobin POC ABG HHb (Measured) ABG Methemoglobin ABG O2 Capacity Hgb O2 Saturation FiO2 Sodium 132 Potassium 4.0 Chloride 105 Carbon Dioxide 21 Anion Gap 10 BUN 23 H Creatinine 1.0 Est GFR ( Amer) > 60 Est GFR (Non-Af Amer) 58 POC Glucose (mg/dL) 205 H Random Glucose 185 H Calcium 7.4 L Total Bilirubin AST ALT Alkaline Phosphatase C-React Prot High Sens Total Protein Albumin Globulin Albumin/Globulin Ratio Lipase 778 H Procalcitonin Fluid Source Fluid Appearance Fluid WBC Fluid RBC Fluid Tot Cell Count Fluid Neutrophils Fluid Lymphocytes Fld Monocyte/Macrophag Fluid Comment Pleural pH Ur L.pneumophila Ag 10/14/16 10/14/16 10/14/16 14:15 14:15 16:00 WBC RBC Hgb Hct MCV MCH MCHC RDW Plt Count MPV Gran % Lymph % (Auto) [place] % (Auto) Eos % (Auto) Baso % (Auto) Gran # Lymph # [place] # Eos # Baso # APTT pCO2 pO2 HCO3 ABG pH ABG Total CO2 ABG O2 Saturation ABG O2 Content ABG Base Excess ABG Hemoglobin ABG Carboxyhemoglobin POC ABG HHb (Measured) ABG Methemoglobin ABG O2 Capacity Hgb O2 Saturation FiO2 Sodium Potassium Chloride Carbon Dioxide Anion Gap BUN Creatinine Est GFR ( Amer) Est GFR (Non-Af Amer) POC Glucose (mg/dL) Random Glucose Calcium Total Bilirubin AST ALT Alkaline Phosphatase C-React Prot High Sens Total Protein Albumin Globulin Albumin/Globulin Ratio Lipase Procalcitonin Fluid Source Pleural Fluid Appearance Bloody Fluid WBC 270.0 Fluid RBC 92513.0 H Fluid Tot Cell Count 100 H Fluid Neutrophils 18.5 H Fluid Lymphocytes 81.5 H Fld Monocyte/Macrophag TEST NOT PERFORMED Fluid Comment Cloudy Pleural pH 8.0 Ur L.pneumophila Ag Negative 10/14/16 10/14/16 10/15/16 16:19 21:36 04:35 WBC 19.9 H RBC 4.56 Hgb 11.7 L Hct 36.2 MCV 79.4 L MCH 25.7 MCHC 32.3 RDW 21.6 H Plt Count 383 MPV 11.1 H Gran % 76.5 H Lymph % (Auto) 14.3 L [place] % (Auto) 8.3 H Eos % (Auto) 0.4 L Baso % (Auto) 0.5 Gran # 15.27 H Lymph # 2.8 [place] # 1.7 H Eos # 0.1 Baso # 0.09 APTT pCO2 pO2 HCO3 ABG pH ABG Total CO2 ABG O2 Saturation ABG O2 Content ABG Base Excess ABG Hemoglobin ABG Carboxyhemoglobin POC ABG HHb (Measured) ABG Methemoglobin ABG O2 Capacity Hgb O2 Saturation FiO2 Sodium Potassium Chloride Carbon Dioxide Anion Gap BUN Creatinine Est GFR ( Amer) Est GFR (Non-Af Amer) POC Glucose (mg/dL) 184 H 194 H Random Glucose Calcium Total Bilirubin AST ALT Alkaline Phosphatase C-React Prot High Sens Total Protein Albumin Globulin Albumin/Globulin Ratio Lipase Procalcitonin Fluid Source Fluid Appearance Fluid WBC Fluid RBC Fluid Tot Cell Count Fluid Neutrophils Fluid Lymphocytes Fld Monocyte/Macrophag Fluid Comment Pleural pH Ur L.pneumophila Ag 10/15/16 10/15/16 10/15/16 04:35 04:35 05:55 WBC RBC Hgb Hct MCV MCH MCHC RDW Plt Count MPV Gran % Lymph % (Auto) [place] % (Auto) Eos % (Auto) Baso % (Auto) Gran # Lymph # [place] # Eos # Baso # APTT 49.9 H pCO2 33 L pO2 49.0 L HCO3 17.0 L ABG pH 7.32 L ABG Total CO2 18.0 L ABG O2 Saturation 85.7 L ABG O2 Content 13.0 L ABG Base Excess -8.2 L ABG Hemoglobin 11.1 L ABG Carboxyhemoglobin 2.2 H POC ABG HHb (Measured) 13.9 H ABG Methemoglobin 0.9 ABG O2 Capacity 15.2 L Hgb O2 Saturation 83.0 L FiO2 30.0 Sodium 135 Potassium 3.9 Chloride 107 Carbon Dioxide 18 L Anion Gap 14 BUN 30 H Creatinine 1.1 Est GFR ( Amer) > 60 Est GFR (Non-Af Amer) 52 POC Glucose (mg/dL) Random Glucose 196 H Calcium 7.7 L Total Bilirubin 0.8 AST 2109 H ALT 1923 H Alkaline Phosphatase 201 H C-React Prot High Sens Total Protein 5.5 L Albumin 2.6 L Globulin 2.9 Albumin/Globulin Ratio 0.9 L Lipase Procalcitonin Fluid Source Fluid Appearance Fluid WBC Fluid RBC Fluid Tot Cell Count Fluid Neutrophils Fluid Lymphocytes Fld Monocyte/Macrophag Fluid Comment Pleural pH Ur L.pneumophila Ag 10/15/16 10/15/16 07:30 08:52 WBC RBC Hgb Hct MCV MCH MCHC RDW Plt Count MPV Gran % Lymph % (Auto) [place] % (Auto) Eos % (Auto) Baso % (Auto) Gran # Lymph # [place] # Eos # Baso # APTT pCO2 33 L pO2 74.0 L HCO3 17.4 L ABG pH 7.33 L ABG Total CO2 18.4 L ABG O2 Saturation 97.0 ABG O2 Content 15.4 ABG Base Excess -7.6 L ABG Hemoglobin 11.6 L ABG Carboxyhemoglobin 2.4 H POC ABG HHb (Measured) 2.9 ABG Methemoglobin 0.6 ABG O2 Capacity 15.9 L Hgb O2 Saturation 94.1 L FiO2 30.0 Sodium Potassium Chloride Carbon Dioxide Anion Gap BUN Creatinine Est GFR ( Amer) Est GFR (Non-Af Amer) POC Glucose (mg/dL) 268 H Random Glucose Calcium Total Bilirubin AST ALT Alkaline Phosphatase C-React Prot High Sens Total Protein Albumin Globulin Albumin/Globulin Ratio Lipase Procalcitonin Fluid Source Fluid Appearance Fluid WBC Fluid RBC Fluid Tot Cell Count Fluid Neutrophils Fluid Lymphocytes Fld Monocyte/Macrophag Fluid Comment Pleural pH Ur L.pneumophila Ag Fingerstick Blood Sugar Results: 284 Review of Systems - Review of Systems Systems not reviewed;Unavailable: Acuity of Condition Critical Care Progress Note - Ventilator Checklist Head of Bed 30 Degrees: Yes Daily Sedation Vacation: Yes Daily Assessment of Readiness to Wean: Yes Daily Spontaneous Breathing Trial: Yes PUD Prophalyxis: Yes DVT Prophylaxis: Yes Oral Care with Chlorhexidine Gluconate {CHG}: Yes - Nutrition Nutrition: Nutrition Category Date Time Status NPO Diet [DIET] Diets 10/14/16 Lunch Ordered Assessment/Plan - Assessment and Plan (Free Text) Assessment: 51 y/o F w/ Septic Shock from presumed Colitis VDRF acute respiratory failure . HHNK resolved and Blood glucose 140-180. Currently on minimal fio2 30-40%. PAO2> 60. On SBT trial doing well. Plan to extubate to HFNC 40% and 50L keep o2 sat > 90% ON empiric abx , cx pending. COlitis on CT, Elevated WBC. Tube feeds on Hold. Surgery team following. Increased PVC and pleural effusion . Increased after volume support for hypotension and HHNK during this stay. Try to diurese w/ lasix to keep euvolemic and increase urine output. Afib and Sinus tach. Possibly also worsened by anxiety . Will try to start beta blockers and may need some anxiolytics and or Precedex. dvt p heparin . PPI cc time 65 min
--- NOTE | 2016-10-15 10:35 | CP.PCM.PN ---
Subjective - Date & Time of Evaluation Date of Evaluation: 10/15/16 Time of Evaluation: 09:40 - Subjective Subjective: Patient continues to be intubated, currently awake off sedation, responsive. No fevers overnight. Objective - Vital Signs/Intake and Output Vital Signs (last 24 hours): Temp Pulse Resp BP Pulse Ox 98.6 F 115 H 19 130/69 94 L 10/15/16 04:00 10/15/16 07:00 10/14/16 13:57 10/15/16 05:15 10/15/16 05:15 Intake and Output: 10/15/16 10/15/16 06:59 18:59 Intake Total 2212 Output Total 2400 Balance -188 - Medications Medications: Current Medications Doxycycline Hyclate 100 mg/ (Sodium Chloride) 100 mls @ 100 mls/hr IVPB Q12 [facility] PRN Reason: Protocol Last Admin: 10/14/16 21:41 Dose: 100 mls/hr Vancomycin HCl 1.5 gm/ Sodium (Chloride) 500 mls @ 167 mls/hr IVPB Q12H [facility] PRN Reason: Protocol Last Admin: 10/15/16 01:30 Dose: 167 mls/hr Fentanyl Citrate (Fentanyl Citrate/Sodium Chloride 1 Mg/100 Ml) 1,000 mcg in 100 mls @ 7.5 mls/hr IV .[id number] PRN; Protocol; 75 MCG/HR PRN Reason: TITRATE PER MD ORDER Last Admin: 10/14/16 19:59 Dose: 75 mcg/hr, 7.5 mls/hr Heparin Sodium/Dextrose (Heparin 25,000 Units/250ml In D5w) 25,000 units in 250 mls @ 14.043 mls/hr IV .[id number] PRN; Protocol; 18 UNITS/KG/HR PRN Reason: ADJUST RATE PER PROTOCOL Last Admin: 10/14/16 22:21 Dose: 18 units/kg/hr, 14.043 mls/hr Meropenem 1g/NS 100mL IVPB (Meropenem 1g/Ns 100ml Ivpb) 1 gm in 100 mls @ 100 mls/hr IVPB Q8 [facility] PRN Reason: Protocol Stop: 10/20/16 22:46 Last Admin: 10/15/16 05:23 Dose: 100 mls/hr Dobutamine HCl/Dextrose (Dobutamine/Dextrose 5% 500mg/250ml) 500 mg in 250 mls @ 5.273 mls/hr IV .Q24H PRN; Protocol; 2.5 MCG/KG/MIN PRN Reason: TITRATE PER PROTOCOL Last Titration: 10/14/16 14:29 Dose: 0 mcg/kg/min, 0 mls/hr Metronidazole (Flagyl) 500 mg in 100 mls @ 100 mls/hr IVPB Q8 [facility] PRN Reason: Protocol Last Admin: 10/15/16 05:53 Dose: 100 mls/hr Sodium Chloride (Sodium Chloride 0.9%) 1,000 mls @ 75 mls/hr IV .[id number] [facility] Last Admin: 10/15/16 04:00 Dose: 75 mls/hr Insulin Detemir (Levemir) 20 unit SC DAILY [facility] Last Admin: 10/14/16 12:03 Dose: 20 unit Insulin Human Lispro (Humalog Med) 0 units SC ACHS [facility] PRN Reason: Protocol Last Admin: 10/14/16 21:39 Dose: Not Given Metoprolol Tartrate (Lopressor) 5 mg IVP Q6H [facility] Last Admin: 10/14/16 10:22 Dose: Not Given Morphine Sulfate (Morphine) 2 mg IVP Q6H PRN PRN Reason: Pain, Mild (1-3) Last Admin: 10/13/16 16:29 Dose: 2 mg Pantoprazole Sodium (Protonix Inj) 40 mg IVP 0600 [facility] Last Admin: 10/15/16 05:31 Dose: 40 mg - Labs Labs: 10/15/16 04:35 10/15/16 04:35 PT 12.0 Seconds (9.9-11.8) H 10/13/16 13:20 INR 1.11 (0.93-1.08) H 10/13/16 13:20 APTT 49.9 Seconds (23.7-30.8) H 10/15/16 04:35 - Constitutional Appears: Other (Intubated) - Head Exam Head Exam: NORMAL INSPECTION - ENT Exam Additional comments: ET tube in place - Neck Exam Neck Exam: absent: Meningismus - Respiratory Exam Respiratory Exam: Decreased Breath Sounds (at the bases) - Cardiovascular Exam Cardiovascular Exam: +S1, +S2 - GI/Abdominal Exam GI & Abdominal Exam: Soft. absent: Tenderness Assessment and Plan - Assessment and Plan (Free Text) Plan: Assessment consider severe sepsis with acute hypoxic ventilator-dependent respiratory failure probably due to bilateral lower lobe healthcare-associated pneumonia with possible gram positive cocci, gram negative bacilli and/or atypical organisms, with associated hyperglycemic, hyperosmolar state with also acute pancreatitis, etiology to be determined history of healthcare-associated pneumonia, right middle lobe history of bilateral healthcare-associated pneumonia in this patient chronic heart failure S/P acute cholecystitis, S/P laparoscopic cholecystectomy CAD with chronic CHF DM HTN history of migraines bipolar disorder Plan continue Vancomycin, Merrem and Doxycycline day 2 pending final blood cx, sputum cx, urine Legionella Ag, PCT; reviewed CT abdomen; reviewed ICU evaluation monitor lipase levels; follow up GI recommendations will continue to follow clinically Patient is still in critical condition
[2016-10-15] MEDS: Insulin Detemir 100 units/ml Vial (Levemir) SC SCH (14:26)
[2016-10-15] MEDS: Metoprolol 1 mg/ml Inj IVP SCH ×2 (14:45→22:28)
--- NOTE | 2016-10-15 16:15 | CP.PCM.PN ---
<SAROJ FLYNN - Last Filed: 10/15/16 21:12> Subjective - Date & Time of Evaluation Date of Evaluation: 10/15/16 Time of Evaluation: 09:15 - Subjective Subjective: patient was seen and examined bedside. Pt is intubated but is awake and alert, but seems confused. Objective - Vital Signs/Intake and Output Vital Signs (last 24 hours): Temp Pulse Resp BP Pulse Ox 98.2 F 133 H 23 125/82 94 L 10/15/16 12:00 10/15/16 14:45 10/15/16 11:30 10/15/16 14:45 10/15/16 14:02 Intake and Output: 10/15/16 10/15/16 06:59 18:59 Intake Total 2212 Output Total 2400 Balance -188 - Medications Medications: Current Medications Doxycycline Hyclate 100 mg/ (Sodium Chloride) 100 mls @ 100 mls/hr IVPB Q12 [facility] PRN Reason: Protocol Last Admin: 10/14/16 21:41 Dose: 100 mls/hr Vancomycin HCl 1.5 gm/ Sodium (Chloride) 500 mls @ 167 mls/hr IVPB Q12H [facility] PRN Reason: Protocol Last Admin: 10/15/16 14:37 Dose: 167 mls/hr Fentanyl Citrate (Fentanyl Citrate/Sodium Chloride 1 Mg/100 Ml) 1,000 mcg in 100 mls @ 7.5 mls/hr IV .[id number] PRN; Protocol; 75 MCG/HR PRN Reason: TITRATE PER MD ORDER Last Admin: 10/14/16 19:59 Dose: 75 mcg/hr, 7.5 mls/hr Heparin Sodium/Dextrose (Heparin 25,000 Units/250ml In D5w) 25,000 units in 250 mls @ 14.043 mls/hr IV .[id number] PRN; Protocol; 18 UNITS/KG/HR PRN Reason: ADJUST RATE PER PROTOCOL Last Admin: 10/14/16 22:21 Dose: 18 units/kg/hr, 14.043 mls/hr Meropenem 1g/NS 100mL IVPB (Meropenem 1g/Ns 100ml Ivpb) 1 gm in 100 mls @ 100 mls/hr IVPB Q8 [facility] PRN Reason: Protocol Stop: 10/20/16 22:46 Last Admin: 10/15/16 14:28 Dose: 100 mls/hr Dobutamine HCl/Dextrose (Dobutamine/Dextrose 5% 500mg/250ml) 500 mg in 250 mls @ 5.273 mls/hr IV .Q24H PRN; Protocol; 2.5 MCG/KG/MIN PRN Reason: TITRATE PER PROTOCOL Last Titration: 10/14/16 14:29 Dose: 0 mcg/kg/min, 0 mls/hr Sodium Chloride (Sodium Chloride 0.9%) 1,000 mls @ 75 mls/hr IV .[id number] [facility] Last Admin: 10/15/16 04:00 Dose: 75 mls/hr Insulin Detemir (Levemir) 20 unit SC DAILY [facility] Last Admin: 10/15/16 14:26 Dose: 20 unit Insulin Human Lispro (Humalog Med) 0 units SC ACHS [facility] PRN Reason: Protocol Last Admin: 10/15/16 14:24 Dose: 1 units Metoprolol Tartrate (Lopressor) 5 mg IVP Q6H [facility] Last Admin: 10/15/16 14:45 Dose: 5 mg Morphine Sulfate (Morphine) 2 mg IVP Q6H PRN PRN Reason: Pain, Mild (1-3) Last Admin: 10/13/16 16:29 Dose: 2 mg Pantoprazole Sodium (Protonix Inj) 40 mg IVP 0600 [facility] Last Admin: 10/15/16 05:31 Dose: 40 mg - Labs Labs: 10/15/16 04:35 10/15/16 04:35 PT 12.0 Seconds (9.9-11.8) H 10/13/16 13:20 INR 1.11 (0.93-1.08) H 10/13/16 13:20 APTT 53.0 Seconds (23.7-30.8) H 10/15/16 10:50 - Constitutional Appears: Well, No Acute Distress, Confused - Head Exam Head Exam: ATRAUMATIC, NORMOCEPHALIC - Eye Exam Eye Exam: Normal appearance, PERRL - ENT Exam ENT Exam: Mucous Membranes Dry, Normal Exam Additional comments: Endotracheal tube in place - Respiratory Exam Respiratory Exam: Clear to Ausculation Bilateral, NORMAL BREATHING PATTERN. absent: Rales, Rhonchi, Wheezes - Cardiovascular Exam Cardiovascular Exam: RRR. absent: Gallop, Rubs, Murmur - GI/Abdominal Exam GI & Abdominal Exam: Soft, Normal Bowel Sounds - Extremities Exam Additional comments: pt was in UE restraints due to being agitated and wanting to pull her lines and get out of bed, per nurse - Neurological Exam Neurological Exam: Alert, Altered, Awake - Psychiatric Exam Psychiatric exam: Anxious - Skin Skin Exam: Normal Color, Warm. absent: Cyanosis Assessment and Plan - Assessment and Plan (Free Text) Assessment: 51 y/o female with PMHx of DM2, CHF (EF 30% in 03/2016), HTN, chronic pulmonary effusion, HTN, DVT, PE, hypothyroidism, schizophrenia and Bipolar disorder presented to the ED with complaints of abdominal pain x1week. Currently in ICU day 3, HHS improved, pt intubated. Plan: 1. Severe sepsis likely 2/2 CAP vs colitis vs pancreatitis - continue meronepem, flagyl, vancomycin, and Doxycycline day 2 - pending blood cx - Leukocytosis improving (WBC 19.9) - ID consulted, recs appreciated - Surgery is consulted- no surgical intervention needed - GI consulted 2. Respiratory failure - continue protective lung ventilation - daily weaning trials - CXR (10/15) shows improving L-sided effusion and infiltrate 3. UTI - Urine Cx growing G+ cocci - f/u sensitivities 4. HONK resolved - FS low 190-260's - continue Levemir 20u daily, and Humalog 5. Lactic acidosis - resolved 6. Hypotension - dobutamine PRN PTX/ Heparin Patient seen, discussed and evaluated with attending, Dr. Dean Flynn, PGY1 <Anne Marie Moran - Last Filed: 10/15/16 22:01> Objective - Vital Signs/Intake and Output Vital Signs (last 24 hours): Temp Pulse Resp BP Pulse Ox 97.9 F 71 17 133/77 98 10/15/16 20:00 10/15/16 20:50 10/15/16 20:50 10/15/16 20:45 10/15/16 20:50 Intake and Output: 10/15/16 10/16/16 18:59 06:59 Intake Total 4012 Output Total 3450 Balance 562 - Medications Medications: Current Medications Doxycycline Hyclate 100 mg/ (Sodium Chloride) 100 mls @ 100 mls/hr IVPB Q12 [facility] PRN Reason: Protocol Last Admin: 10/15/16 21:24 Dose: 100 mls/hr Vancomycin HCl 1.5 gm/ Sodium (Chloride) 500 mls @ 167 mls/hr IVPB Q12H [facility] PRN Reason: Protocol Last Admin: 10/15/16 14:37 Dose: 167 mls/hr Fentanyl Citrate (Fentanyl Citrate/Sodium Chloride 1 Mg/100 Ml) 1,000 mcg in 100 mls @ 7.5 mls/hr IV .[id number] PRN; Protocol; 75 MCG/HR PRN Reason: TITRATE PER MD ORDER Last Admin: 10/14/16 19:59 Dose: 75 mcg/hr, 7.5 mls/hr Heparin Sodium/Dextrose (Heparin 25,000 Units/250ml In D5w) 25,000 units in 250 mls @ 14.043 mls/hr IV .[id number] PRN; Protocol; 18 UNITS/KG/HR PRN Reason: ADJUST RATE PER PROTOCOL Last Admin: 10/15/16 20:22 Dose: 18 units/kg/hr, 14.043 mls/hr Meropenem 1g/NS 100mL IVPB (Meropenem 1g/Ns 100ml Ivpb) 1 gm in 100 mls @ 100 mls/hr IVPB Q8 [facility] PRN Reason: Protocol Stop: 10/20/16 22:46 Last Admin: 10/15/16 14:28 Dose: 100 mls/hr Dobutamine HCl/Dextrose (Dobutamine/Dextrose 5% 500mg/250ml) 500 mg in 250 mls @ 5.273 mls/hr IV .Q24H PRN; Protocol; 2.5 MCG/KG/MIN PRN Reason: TITRATE PER PROTOCOL Last Titration: 10/14/16 14:29 Dose: 0 mcg/kg/min, 0 mls/hr Sodium Chloride (Sodium Chloride 0.9%) 1,000 mls @ 75 mls/hr IV .[id number] [facility] Last Admin: 10/15/16 04:00 Dose: 75 mls/hr Insulin Detemir (Levemir) 20 unit SC DAILY [facility] Last Admin: 10/15/16 14:26 Dose: 20 unit Insulin Human Lispro (Humalog Med) 0 units SC ACHS [facility] PRN Reason: Protocol Last Admin: 10/15/16 18:50 Dose: 3 units Metoprolol Tartrate (Lopressor) 5 mg IVP Q6H [facility] Last Admin: 10/15/16 14:45 Dose: 5 mg Morphine Sulfate (Morphine) 2 mg IVP Q6H PRN PRN Reason: Pain, Mild (1-3) Last Admin: 10/13/16 16:29 Dose: 2 mg Pantoprazole Sodium (Protonix Inj) 40 mg IVP 0600 [facility] Last Admin: 10/15/16 05:31 Dose: 40 mg - Labs Labs: 10/15/16 04:35 10/15/16 04:35 PT 12.0 Seconds (9.9-11.8) H 10/13/16 13:20 INR 1.11 (0.93-1.08) H 10/13/16 13:20 APTT 53.0 Seconds (23.7-30.8) H 10/15/16 10:50 Attending/Attestation - Attestation I have personally seen and examined this patient.: Yes I have fully participated in the care of the patient.: Yes I have reviewed all pertinent clinical information, including history, physical exam and plan: Yes Notes (Text): 10/15/16 21:59 Patient seen and examined in ICU. Overnight issues, labs, vitals and notes reviewed. Remains in restraints for safety considering agitative behavior and risk for self-extubation. She remains on mechanical ventilation with stable FiO2 requirements. AC remains on hold. Continue IV antibiotics for sepsis coverage 2/2 acute pancreatitis vs HAP. I/O remains stable.Continue dobutamine support. Agree with the remainder of the plan as discussed and outlined by the resident.
[2016-10-15] MEDS: Heparin 25,000units in D5W 25,000 UNITS/250 ML BAG IV PRN (20:22)
[2016-10-16] MEDS: Vancomycin 1.5 GM in Sodium Chloride 0.9% 500 ML IVPB SCH (02:40)
[2016-10-16] MEDS: Metoprolol 1 mg/ml Inj IVP SCH ×5 (05:15→22:00)
[2016-10-16] MEDS: Meropenem 1g/NS 100mL IVPB 1 GM/100 ML PIGGYBACK IVPB SCH ×3 (05:17→23:00)
[2016-10-16 06:32] LABS: HEMOGLOBIN 12.8 gm/dL (12.0-16.0); MEAN CELL VOLUME 79.5 fL (80.0-105.0); MEAN CORPUSCULAR HEMOGLOBIN 26.2 pg (25.0-35.0); PLATELET COUNT 395 10^3/uL (120.0-450.0); RBC 4.88 10^6/uL (3.5-6.1); RED CELL DISTRIBUTION WIDTH 21.5 % (11.5-14.5)
[2016-10-16 06:38] LABS: ALB/GLOB RATIO 0.8 (1.1-1.8); ALBUMIN 2.7 g/dL (3.0-4.8); BLOOD UREA NITROGEN 36 mg/dL (7-21); CALCIUM 7.5 mg/dL (8.4-10.5); GFR AFRICAN-AMERICAN > 60; GFR NON-AFRICAN AMERICAN 52
[2016-10-16 06:45] LABS: ALT/SGPT 1501 U/L (7-56); AST/SGOT 1081 U/L (15-39)
[2016-10-16] MEDS: Sodium Chloride 0.9% 1,000 ML IV SCH ×3 (06:45→20:45)
[2016-10-16 06:58] LABS: WHITE BLOOD COUNT 26.4 10^3/ul (4.5-11.0)
[2016-10-16 09:04] LABS: ARTERIAL BLOOD GAS PH 7.38 (7.35-7.45)
[2016-10-16 09:05] LABS: ARTERIAL BLOOD GAS HCO3 15.4 mmol/L (21-28); ARTERIAL BLOOD GAS PCO2 26 mm/Hg (35-45)
[2016-10-16 09:06] LABS: ARTERIAL BLOOD GAS HEMOGLOBIN 12.4 g/dL (11.7-17.4); ARTERIAL BLOOD GAS O2 SAT 99.2 % (95-98); ARTERIAL BLOOD GAS TCO2 16.2 mmol.L (22-28)
[2016-10-16 09:11] LABS: BAND 0 % (0-2); LYMPHOCYTE 12 % (22.0-35.0); MONOCYTE 6 % (1.0-6.0); NEUTROPHIL 82 % (50.0-70.0); PLATELET ESTIMATE HIGH (NORMAL)
[2016-10-16 09:12] LABS: HYPOCHROMIA 1+; ROULEAU 2+; TOXIC GRANULATION 2+
[2016-10-16] MEDS: Insulin Lispro (humaLOG) MEDIUM Coverage SC SCH ×4 (09:30→22:09)
[2016-10-16] MEDS: Insulin Detemir 100 units/ml Vial (Levemir) SC SCH (10:45)
--- NOTE | 2016-10-16 11:02 | CP.PCM.PN ---
Subjective - Date & Time of Evaluation Date of Evaluation: 10/16/16 Time of Evaluation: 10:10 - Subjective Subjective: Comfortable, patient is now extubated and eating her breakfast well, no fevers overnight, improved breathing. Objective - Vital Signs/Intake and Output Vital Signs (last 24 hours): Temp Pulse Resp BP Pulse Ox 98 F 112 H 21 112/76 97 10/16/16 04:00 10/16/16 06:01 10/16/16 06:01 10/16/16 06:01 10/16/16 06:01 Intake and Output: 10/16/16 10/16/16 06:59 18:59 Intake Total 1219 Output Total 350 Balance 869 - Medications Medications: Current Medications Doxycycline Hyclate 100 mg/ (Sodium Chloride) 100 mls @ 100 mls/hr IVPB Q12 [facility] PRN Reason: Protocol Last Admin: 10/15/16 21:24 Dose: 100 mls/hr Vancomycin HCl 1.5 gm/ Sodium (Chloride) 500 mls @ 167 mls/hr IVPB Q12H [facility] PRN Reason: Protocol Last Admin: 10/16/16 02:40 Dose: 167 mls/hr Fentanyl Citrate (Fentanyl Citrate/Sodium Chloride 1 Mg/100 Ml) 1,000 mcg in 100 mls @ 7.5 mls/hr IV .[id number] PRN; Protocol; 75 MCG/HR PRN Reason: TITRATE PER MD ORDER Last Admin: 10/14/16 19:59 Dose: 75 mcg/hr, 7.5 mls/hr Heparin Sodium/Dextrose (Heparin 25,000 Units/250ml In D5w) 25,000 units in 250 mls @ 14.043 mls/hr IV .[id number] PRN; Protocol; 18 UNITS/KG/HR PRN Reason: ADJUST RATE PER PROTOCOL Last Admin: 10/15/16 20:22 Dose: 18 units/kg/hr, 14.043 mls/hr Meropenem 1g/NS 100mL IVPB (Meropenem 1g/Ns 100ml Ivpb) 1 gm in 100 mls @ 100 mls/hr IVPB Q8 [facility] PRN Reason: Protocol Stop: 10/20/16 22:46 Last Admin: 10/16/16 05:17 Dose: 100 mls/hr Dobutamine HCl/Dextrose (Dobutamine/Dextrose 5% 500mg/250ml) 500 mg in 250 mls @ 5.273 mls/hr IV .Q24H PRN; Protocol; 2.5 MCG/KG/MIN PRN Reason: TITRATE PER PROTOCOL Last Titration: 10/14/16 14:29 Dose: 0 mcg/kg/min, 0 mls/hr Sodium Chloride (Sodium Chloride 0.9%) 1,000 mls @ 75 mls/hr IV .[id number] [facility] Last Admin: 10/15/16 04:00 Dose: 75 mls/hr Insulin Detemir (Levemir) 20 unit SC DAILY [facility] Last Admin: 10/15/16 14:26 Dose: 20 unit Insulin Human Lispro (Humalog Med) 0 units SC ACHS [facility] PRN Reason: Protocol Last Admin: 10/15/16 22:12 Dose: Not Given Metoprolol Tartrate (Lopressor) 5 mg IVP Q6H [facility] Last Admin: 10/16/16 05:15 Dose: 5 mg Morphine Sulfate (Morphine) 2 mg IVP Q6H PRN PRN Reason: Pain, Mild (1-3) Last Admin: 10/13/16 16:29 Dose: 2 mg Pantoprazole Sodium (Protonix Inj) 40 mg IVP 0600 [facility] Last Admin: 10/16/16 05:33 Dose: 40 mg - Labs Labs: 10/16/16 05:30 10/16/16 05:30 PT 12.0 Seconds (9.9-11.8) H 10/13/16 13:20 INR 1.11 (0.93-1.08) H 10/13/16 13:20 APTT 105.0 Seconds (23.7-30.8) H* 10/16/16 05:30 - Constitutional Appears: Non-toxic, No Acute Distress - Head Exam Head Exam: NORMAL INSPECTION - ENT Exam ENT Exam: Mucous Membranes Moist - Neck Exam Neck Exam: absent: Lymphadenopathy, Meningismus - Respiratory Exam Respiratory Exam: Decreased Breath Sounds - Cardiovascular Exam Cardiovascular Exam: +S1, +S2 - GI/Abdominal Exam GI & Abdominal Exam: Soft. absent: Tenderness Assessment and Plan - Assessment and Plan (Free Text) Plan: Assessment consider severe sepsis S/P hypoxic ventilator-dependent respiratory failure probably due to bilateral lower lobe healthcare-associated pneumonia with possible gram positive cocci, gram negative bacilli and/or atypical organisms, with associated hyperglycemic, hyperosmolar state with also acute pancreatitis, etiology to be determined - clinically improving and now extubated history of healthcare-associated pneumonia, right middle lobe history of bilateral healthcare-associated pneumonia in this patient chronic heart failure S/P acute cholecystitis, S/P laparoscopic cholecystectomy CAD with chronic CHF DM HTN history of migraines bipolar disorder Plan will d/c Vancomycin and continue Merrem and Doxycycline day 3; cultures have been negative; reviewed CT abdomen monitor lipase levels will continue to follow clinically
--- NOTE | 2016-10-16 11:45 | CP.CCUPN ---
CCU Subjective - Physician Review Events Since Last Encounter (Free Text): 10/16/16 11:43 Tolerated extubation overnight. On NC now, off HFNC No current complaints. No further hypotension or fevers. CCU Objective - Vital Signs / Intake & Output Vital Signs (Last 4 hours): Vital Signs Pulse Resp BP Pulse Ox 10/16/16 10:58 115 H 114/72 10/16/16 10:00 111 H 27 H 99/59 L 97 10/16/16 09:50 118 H 24 88 L 10/16/16 09:40 114 H 24 97 10/16/16 09:30 120 H 21 97 10/16/16 09:20 123 H 17 97 10/16/16 09:10 121 H 28 H 96 10/16/16 09:03 121 H 23 120/77 10/16/16 09:00 122 H 25 H 76/27 L 10/16/16 08:50 94 H 18 100 10/16/16 08:40 98 H 33 H 100 10/16/16 08:30 113 H 22 99 10/16/16 08:20 104 H 22 98 10/16/16 08:10 104 H 23 95 10/16/16 08:00 118 H 24 127/55 L 99 10/16/16 07:50 108 H 23 99 Intake and Output (Last 8hrs): Intake & Output 10/15/16 10/16/16 10/16/16 22:59 06:59 14:59 Intake Total 4012 1219 0 Output Total 3450 350 Balance 562 869 0 Weight 167 lb 4 oz Intake: IV 2642 979 0 Fentanyl 83 Heparin 1484 154 Nsaline 825 825 Oral 370 240 Other 1000 Output: Urine 1450 350 Urethral (Witt) 1450 350 Other 2000 Other: Voiding Method Indwelling Catheter # Bowel Movements 0 0 - Physical Exam Head: Positive for: Atraumatic, Normocephalic Pupils: Positive for: PERRL Extroacular Muscles: Positive for: EOMI Conjunctiva: Positive for: Normal Mouth: Positive for: Moist Mucous Membranes, Other (ett in place) Pharnyx: Negative for: Normal, ERYTHEMA, EXUDATE, TONSILS ENLARGED, Peritonsilar Swelling, Uvular Deviation, Muffled/Hoarse Voice, Strider, Soft Palate/Uvular Edema, Other Neck: Positive for: Normal Range of Motion Respiratory/Chest: Positive for: Clear to Auscultation, Good Air Exchange Cardiovascular: Positive for: Regular Rate and Rhythm Abdomen: Positive for: Tenderness Upper Extremity: Positive for: Normal Inspection Lower Extremity: Positive for: Normal Inspection - Medications Active Medications: Active Medications Generic Name Dose Route Start Last Admin Trade Name Freq PRN Reason Stop Dose Admin Guaifenesin 600 mg 10/16/16 11:45 Mucinex La PO BID IZABELA Doxycycline Hyclate 100 mg/ 100 mls @ 100 mls/hr 10/13/16 22:00 10/16/16 10: 58 Sodium Chloride IVPB 100 mls/hr Q12 IAZBELA Administration Protocol Fentanyl Citrate 1,000 mcg in 100 mls @ 7.5 mls/hr 10/13/16 17:51 10/14/16 19 :59 Fentanyl Citrate/Sodium Chloride 1 Mg/100 Ml IV 75 mcg/hr .[id number] PRN 7.5 mls/hr TITRATE PER MD ORDER Administration Protocol 75 MCG/HR Heparin Sodium/Dextrose 25,000 units in 250 mls @ 14.043 mls/hr 10/13/16 18: 17 10/16/16 07:53 Heparin 25,000 Units/250ml In D5w IV 15 units/kg/hr .[id number] PRN 11.703 mls/hr ADJUST RATE PER PROTOCOL Titration Protocol 18 UNITS/KG/HR Meropenem 1g/NS 100mL IVPB 1 gm in 100 mls @ 100 mls/hr 10/13/16 22:45 05:17 Meropenem 1g/Ns 100ml Ivpb IVPB 10/20/16 22:46 100 mls/hr Q8 IZABELA Administration Protocol Dobutamine HCl/Dextrose 500 mg in 250 mls @ 5.273 mls/hr 10/14/16 11:26 10/14 14:29 Dobutamine/Dextrose 5% 500mg/250ml IV 0 mcg/kg/min .Q24H PRN 0 mls/hr TITRATE PER PROTOCOL Titration Protocol 2.5 MCG/KG/MIN Sodium Chloride 1,000 mls @ 75 mls/hr 10/14/16 14:45 10/16/16 10:57 Sodium Chloride 0.9% IV 75 mls/hr .[id number] IZABELA Administration Insulin Detemir 20 unit 10/14/16 11:30 10/16/16 10:45 Levemir SC 20 unit DAILY IZABELA Administration Insulin Human Lispro 0 units 10/14/16 11:30 10/16/16 09:30 Humalog Med SC 7 units ACHS IZABELA Administration Protocol Metoprolol Tartrate 5 mg 10/13/16 16:00 10/16/16 10:58 Lopressor IVP 5 mg Q6H IZABELA Administration Morphine Sulfate 2 mg 10/13/16 16:06 10/13/16 16:29 Morphine IVP 2 mg Q6H PRN Administration Pain, Mild (1-3) Pantoprazole Sodium 40 mg 10/13/16 16:00 10/16/16 05:33 Protonix Inj IVP 40 mg 0600 [facility] Administration - Patient Studies Lab Studies: Microbiology Studies 10/15/16 14:06 Gram Stain - Final Sputum 10/13/16 15:47 Urine Culture - Final Urine,Clean Catch No Growth (<1,000 CFU/ML) 10/13/16 15:30 Blood Culture - Preliminary Blood NO GROWTH AFTER 48 HOURS 10/13/16 15:00 Blood Culture - Preliminary Blood NO GROWTH AFTER 48 HOURS 10/14/16 14:15 Mycobacterial Culture - Preliminary Other: Please Indicate Lab Studies 10/16/16 10/16/16 10/16/16 Range/Units 06:00 05:30 05:30 WBC (4.5-11.0) 10^3/ul RBC (3.5-6.1) 10^6/uL Hgb (12.0-16.0) gm/dL Hct (36.0-48.0) % MCV (80.0-105.0) fL MCH (25.0-35.0) pg MCHC (31.0-37.0) g/dl RDW (11.5-14.5) % Plt Count (120.0-450.0) 10^3/uL MPV (7.0-11.0) fl Neutrophils % (Manual) (50.0-70.0) % Band Neutrophils % (0-2) % Lymphocytes % (Manual) (22.0-35.0) % Monocytes % (Manual) (1.0-6.0) % Toxic Granulation Platelet Evaluation (NORMAL) Hypochromasia Rouleaux APTT 105.0 H* (23.7-30.8) Seconds pCO2 26 L (35-45) mm/Hg pO2 107.0 H (80-100) mm/Hg HCO3 15.4 L (21-28) mmol/L ABG pH 7.38 (7.35-7.45) ABG Total CO2 16.2 L (22-28) mmol.L ABG O2 Saturation 99.2 H (95-98) % ABG Base Excess -8.2 L (-2.0-3.0) mmol/L ABG Hemoglobin 12.4 (11.7-17.4) g/dL ABG Carboxyhemoglobin 2.1 H (0.5-1.5) % POC ABG HHb (Measured) 0.8 (0-5) % ABG Methemoglobin 0.6 (0.0-3.0) % Hgb O2 Saturation 96.5 (95.0-98.0) % Sodium 137 (132-148) mmol/L Potassium 3.8 (3.6-5.0) mmol/L Chloride 109 H (98-107) mmol/L Carbon Dioxide 17 L (21-33) mmol/L Anion Gap 15 (10-20) BUN 36 H (7-21) mg/dL Creatinine 1.1 (0.5-1.4) mg/dL Est GFR ( Amer) > 60 Est GFR (Non-Af Amer) 52 POC Glucose (mg/dL) (65-110) mg/dL Random Glucose 153 H (70-110) mg/dL Calcium 7.5 L (8.4-10.5) mg/dL Total Bilirubin 1.2 (0.2-1.3) mg/dL AST 1081 H (15-39) U/L ALT 1501 H (7-56) U/L Alkaline Phosphatase 398 H (38-133) U/L Total Protein 5.9 (5.8-8.3) g/dL Albumin 2.7 L (3.0-4.8) g/dL Globulin 3.2 gm/dL Albumin/Globulin Ratio 0.8 L (1.1-1.8) 10/16/16 10/15/16 10/15/16 Range/Units 05:30 22:07 15:55 WBC 26.4 H* D (4.5-11.0) 10^3/ul RBC 4.88 (3.5-6.1) 10^6/uL Hgb 12.8 (12.0-16.0) gm/dL Hct 38.8 (36.0-48.0) % MCV 79.5 L (80.0-105.0) fL MCH 26.2 (25.0-35.0) pg MCHC 33.0 (31.0-37.0) g/dl RDW 21.5 H (11.5-14.5) % Plt Count 395 (120.0-450.0) 10^3/uL MPV 11.0 (7.0-11.0) fl Neutrophils % (Manual) 82 H (50.0-70.0) % Band Neutrophils % 0 (0-2) % Lymphocytes % (Manual) 12 L (22.0-35.0) % Monocytes % (Manual) 6 (1.0-6.0) % Toxic Granulation 2+ Platelet Evaluation High (NORMAL) Hypochromasia 1+ Rouleaux 2+ APTT (23.7-30.8) Seconds pCO2 (35-45) mm/Hg pO2 (80-100) mm/Hg HCO3 (21-28) mmol/L ABG pH (7.35-7.45) ABG Total CO2 (22-28) mmol.L ABG O2 Saturation (95-98) % ABG Base Excess (-2.0-3.0) mmol/L ABG Hemoglobin (11.7-17.4) g/dL ABG Carboxyhemoglobin (0.5-1.5) % POC ABG HHb (Measured) (0-5) % ABG Methemoglobin (0.0-3.0) % Hgb O2 Saturation (95.0-98.0) % Sodium (132-148) mmol/L Potassium (3.6-5.0) mmol/L Chloride (98-107) mmol/L Carbon Dioxide (21-33) mmol/L Anion Gap (10-20) BUN (7-21) mg/dL Creatinine (0.5-1.4) mg/dL Est GFR ( Amer) Est GFR (Non-Af Amer) POC Glucose (mg/dL) 156 H 223 H (65-110) mg/dL Random Glucose (70-110) mg/dL Calcium (8.4-10.5) mg/dL Total Bilirubin (0.2-1.3) mg/dL AST (15-39) U/L ALT (7-56) U/L Alkaline Phosphatase (38-133) U/L Total Protein (5.8-8.3) g/dL Albumin (3.0-4.8) g/dL Globulin gm/dL Albumin/Globulin Ratio (1.1-1.8) 10/15/16 Range/Units 11:23 WBC (4.5-11.0) 10^3/ul RBC (3.5-6.1) 10^6/uL Hgb (12.0-16.0) gm/dL Hct (36.0-48.0) % MCV (80.0-105.0) fL MCH (25.0-35.0) pg MCHC (31.0-37.0) g/dl RDW (11.5-14.5) % Plt Count (120.0-450.0) 10^3/uL MPV (7.0-11.0) fl Neutrophils % (Manual) (50.0-70.0) % Band Neutrophils % (0-2) % Lymphocytes % (Manual) (22.0-35.0) % Monocytes % (Manual) (1.0-6.0) % Toxic Granulation Platelet Evaluation (NORMAL) Hypochromasia Rouleaux APTT (23.7-30.8) Seconds pCO2 (35-45) mm/Hg pO2 (80-100) mm/Hg HCO3 (21-28) mmol/L ABG pH (7.35-7.45) ABG Total CO2 (22-28) mmol.L ABG O2 Saturation (95-98) % ABG Base Excess (-2.0-3.0) mmol/L ABG Hemoglobin (11.7-17.4) g/dL ABG Carboxyhemoglobin (0.5-1.5) % POC ABG HHb (Measured) (0-5) % ABG Methemoglobin (0.0-3.0) % Hgb O2 Saturation (95.0-98.0) % Sodium (132-148) mmol/L Potassium (3.6-5.0) mmol/L Chloride (98-107) mmol/L Carbon Dioxide (21-33) mmol/L Anion Gap (10-20) BUN (7-21) mg/dL Creatinine (0.5-1.4) mg/dL Est GFR ( Amer) Est GFR (Non-Af Amer) POC Glucose (mg/dL) 255 H (65-110) mg/dL Random Glucose (70-110) mg/dL Calcium (8.4-10.5) mg/dL Total Bilirubin (0.2-1.3) mg/dL AST (15-39) U/L ALT (7-56) U/L Alkaline Phosphatase (38-133) U/L Total Protein (5.8-8.3) g/dL Albumin (3.0-4.8) g/dL Globulin gm/dL Albumin/Globulin Ratio (1.1-1.8) Laboratory Results - last 24 hr 10/15/16 10/15/16 10/15/16 11:23 15:55 22:07 WBC RBC Hgb Hct MCV MCH MCHC RDW Plt Count MPV Neutrophils % (Manual) Band Neutrophils % Lymphocytes % (Manual) Monocytes % (Manual) Toxic Granulation Platelet Evaluation Hypochromasia Rouleaux APTT pCO2 pO2 HCO3 ABG pH ABG Total CO2 ABG O2 Saturation ABG Base Excess ABG Hemoglobin ABG Carboxyhemoglobin POC ABG HHb (Measured) ABG Methemoglobin Hgb O2 Saturation Sodium Potassium Chloride Carbon Dioxide Anion Gap BUN Creatinine Est GFR ( Amer) Est GFR (Non-Af Amer) POC Glucose (mg/dL) 255 H 223 H 156 H Random Glucose Calcium Total Bilirubin AST ALT Alkaline Phosphatase Total Protein Albumin Globulin Albumin/Globulin Ratio 10/16/16 10/16/16 10/16/16 05:30 05:30 05:30 WBC 26.4 H* D RBC 4.88 Hgb 12.8 Hct 38.8 MCV 79.5 L MCH 26.2 MCHC 33.0 RDW 21.5 H Plt Count 395 MPV 11.0 Neutrophils % (Manual) 82 H Band Neutrophils % 0 Lymphocytes % (Manual) 12 L Monocytes % (Manual) 6 Toxic Granulation 2+ Platelet Evaluation High Hypochromasia 1+ Rouleaux 2+ APTT 105.0 H* pCO2 pO2 HCO3 ABG pH ABG Total CO2 ABG O2 Saturation ABG Base Excess ABG Hemoglobin ABG Carboxyhemoglobin POC ABG HHb (Measured) ABG Methemoglobin Hgb O2 Saturation Sodium 137 Potassium 3.8 Chloride 109 H Carbon Dioxide 17 L Anion Gap 15 BUN 36 H Creatinine 1.1 Est GFR ( Amer) > 60 Est GFR (Non-Af Amer) 52 POC Glucose (mg/dL) Random Glucose 153 H Calcium 7.5 L Total Bilirubin 1.2 AST 1081 H ALT 1501 H Alkaline Phosphatase 398 H Total Protein 5.9 Albumin 2.7 L Globulin 3.2 Albumin/Globulin Ratio 0.8 L 10/16/16 06:00 WBC RBC Hgb Hct MCV MCH MCHC RDW Plt Count MPV Neutrophils % (Manual) Band Neutrophils % Lymphocytes % (Manual) Monocytes % (Manual) Toxic Granulation Platelet Evaluation Hypochromasia Rouleaux APTT pCO2 26 L pO2 107.0 H HCO3 15.4 L ABG pH 7.38 ABG Total CO2 16.2 L ABG O2 Saturation 99.2 H ABG Base Excess -8.2 L ABG Hemoglobin 12.4 ABG Carboxyhemoglobin 2.1 H POC ABG HHb (Measured) 0.8 ABG Methemoglobin 0.6 Hgb O2 Saturation 96.5 Sodium Potassium Chloride Carbon Dioxide Anion Gap BUN Creatinine Est GFR ( Amer) Est GFR (Non-Af Amer) POC Glucose (mg/dL) Random Glucose Calcium Total Bilirubin AST ALT Alkaline Phosphatase Total Protein Albumin Globulin Albumin/Globulin Ratio Fingerstick Blood Sugar Results: 337 Critical Care Progress Note - Ventilator Checklist PUD Prophalyxis: Yes DVT Prophylaxis: Yes - Nutrition Nutrition: Nutrition Category Date Time Status Consistent Carbohydrate [DIET] Diets 10/16/16 Breakfast Ordered Assessment/Plan - Assessment and Plan (Free Text) Assessment: 51 y/o F w/ resolving sepsis. Currently hemodynamically stable off all vasopressors Resp failure improved after Diuresis 3800 cc urine output. On 3l N.C 95% o2 sat. Out of bed to chair as tolerated, diet advanced. Elevated WBC likely from intrabdominal source, colitis and/or resolving pancreatitis? May need repeat CT abd if WBC doesn't improve on ABX or if clinical worsening. DVT treatment with Heparin drip per protocol . cc time 55 min
[2016-10-16] MEDS: guaiFENesin 600 mg ER Tab PO SCH (13:00)
--- NOTE | 2016-10-16 14:21 | CP.PCM.PN ---
<SAROJ FLYNN - Last Filed: 10/16/16 14:18> Subjective - Date & Time of Evaluation Date of Evaluation: 10/16/16 Time of Evaluation: 09:00 - Subjective Subjective: Patient was seen and examined bedside. The patient states that she is feeling much better, and denies any chest or abdominal pain. Denies n/v/d. Complaining of a cough and feels that she's not bringing up the phlegm. Objective - Vital Signs/Intake and Output Vital Signs (last 24 hours): Temp Pulse Resp BP Pulse Ox 98 F 116 H 22 109/53 L 98 10/16/16 04:00 10/16/16 12:00 10/16/16 12:00 10/16/16 11:01 10/16/16 12:00 Intake and Output: 10/16/16 10/16/16 06:59 18:59 Intake Total 1219 0 Output Total 350 Balance 869 0 - Medications Medications: Current Medications Guaifenesin (Mucinex La) 600 mg PO BID IZABELA Doxycycline Hyclate 100 mg/ (Sodium Chloride) 100 mls @ 100 mls/hr IVPB Q12 IZABELA PRN Reason: Protocol Last Admin: 10/16/16 10:58 Dose: 100 mls/hr Fentanyl Citrate (Fentanyl Citrate/Sodium Chloride 1 Mg/100 Ml) 1,000 mcg in 100 mls @ 7.5 mls/hr IV .[id number] PRN; Protocol; 75 MCG/HR PRN Reason: TITRATE PER MD ORDER Last Admin: 10/14/16 19:59 Dose: 75 mcg/hr, 7.5 mls/hr Heparin Sodium/Dextrose (Heparin 25,000 Units/250ml In D5w) 25,000 units in 250 mls @ 14.043 mls/hr IV .[id number] PRN; Protocol; 18 UNITS/KG/HR PRN Reason: ADJUST RATE PER PROTOCOL Last Titration: 10/16/16 13:26 Dose: 0 units/kg/hr, 0 mls/hr Meropenem 1g/NS 100mL IVPB (Meropenem 1g/Ns 100ml Ivpb) 1 gm in 100 mls @ 100 mls/hr IVPB Q8 IZABELA PRN Reason: Protocol Stop: 10/20/16 22:46 Last Admin: 10/16/16 05:17 Dose: 100 mls/hr Dobutamine HCl/Dextrose (Dobutamine/Dextrose 5% 500mg/250ml) 500 mg in 250 mls @ 5.273 mls/hr IV .Q24H PRN; Protocol; 2.5 MCG/KG/MIN PRN Reason: TITRATE PER PROTOCOL Last Titration: 10/14/16 14:29 Dose: 0 mcg/kg/min, 0 mls/hr Sodium Chloride (Sodium Chloride 0.9%) 1,000 mls @ 75 mls/hr IV .[id number] [facility] Last Admin: 10/16/16 10:57 Dose: 75 mls/hr Insulin Detemir (Levemir) 20 unit SC DAILY [facility] Last Admin: 10/16/16 10:45 Dose: 20 unit Insulin Human Lispro (Humalog Med) 0 units SC ACHS [facility] PRN Reason: Protocol Last Admin: 10/16/16 09:30 Dose: 7 units Metoprolol Tartrate (Lopressor) 5 mg IVP Q6H [facility] Last Admin: 10/16/16 10:58 Dose: 5 mg Morphine Sulfate (Morphine) 2 mg IVP Q6H PRN PRN Reason: Pain, Mild (1-3) Last Admin: 10/13/16 16:29 Dose: 2 mg Pantoprazole Sodium (Protonix Inj) 40 mg IVP 0600 [facility] Last Admin: 10/16/16 05:33 Dose: 40 mg - Labs Labs: 10/16/16 05:30 10/16/16 05:30 PT 12.0 Seconds (9.9-11.8) H 10/13/16 13:20 INR 1.11 (0.93-1.08) H 10/13/16 13:20 APTT 111.5 Seconds (23.7-30.8) H* 10/16/16 12:45 - Constitutional Appears: Well, No Acute Distress - Head Exam Head Exam: ATRAUMATIC, NORMOCEPHALIC - Eye Exam Eye Exam: EOMI, Normal appearance, PERRL - ENT Exam ENT Exam: Mucous Membranes Moist, Normal Exam - Respiratory Exam Respiratory Exam: Clear to Ausculation Bilateral, NORMAL BREATHING PATTERN. absent: Accessory Muscle Use, Chest Wall Tenderness, Rhonchi, Respiratory Distress Additional comments: breathing on 4L O2 NC, pt is extubated, in no acute respiratory distress - Cardiovascular Exam Cardiovascular Exam: RRR - GI/Abdominal Exam GI & Abdominal Exam: Soft, Normal Bowel Sounds. absent: Tenderness - Neurological Exam Neurological Exam: Alert, Awake, Oriented x3 - Psychiatric Exam Psychiatric exam: Normal Affect, Normal Mood - Skin Skin Exam: Normal Color, Warm Assessment and Plan - Assessment and Plan (Free Text) Assessment: 51 y/o female with PMHx of DM2, CHF (EF 30% in 03/2016), HTN, chronic pulmonary effusion, HTN, DVT, PE, hypothyroidism, schizophrenia and Bipolar disorder presented to the ED with complaints of abdominal pain x1week. Currently in ICU day 4, HHS improved, pt extubated and in NAD. Plan: 1. Severe sepsis likely 2/2 CAP vs colitis vs pancreatitis - continue Meronepem and Doxycycline day 3 - d/c vancomycin and flagyl - blood cultures negative for growth - urine cultures G+ cocci - sputum cultures pending - Leukocytosis worsened (WBC 26.4) but pt clinically improving - ID consulted, recs appreciated - Surgery is consulted- no surgical intervention needed 2. Respiratory failure - pt extubated and O2Sat is maintained well on NC - monitor vitals 3. Congested cough -added Mucinex 4. Transaminits - improving - GI consult 5. UTI asymptomatic - Urine Cx growing G+ cocci - f/u sensitivities 6. HONK resolved - FS low 150-250's - continue Levemir 20u daily, and Humalog 7. Lactic acidosis - resolved 8. Hypotension - dobutamine PRN PTX/ Heparin Patient seen, discussed and evaluated with attending, Dr. Dean Flynn, PGY1 <Anne Marie Moran - Last Filed: 10/16/16 18:25> Objective - Vital Signs/Intake and Output Vital Signs (last 24 hours): Temp Pulse Resp BP Pulse Ox 97.8 F 112 H 25 H 75/28 L 86 L 10/16/16 16:00 10/16/16 17:30 10/16/16 17:30 10/16/16 17:00 10/16/16 17:30 Intake and Output: 10/16/16 10/16/16 06:59 18:59 Intake Total 1219 2008 Output Total 350 1000 Balance 869 1008 - Medications Medications: Current Medications Guaifenesin (Mucinex La) 600 mg PO BID [facility] Last Admin: 10/16/16 13:00 Dose: 600 mg Doxycycline Hyclate 100 mg/ (Sodium Chloride) 100 mls @ 100 mls/hr IVPB Q12 [facility] PRN Reason: Protocol Last Admin: 10/16/16 10:58 Dose: 100 mls/hr Heparin Sodium/Dextrose (Heparin 25,000 Units/250ml In D5w) 25,000 units in 250 mls @ 14.043 mls/hr IV .[id number] PRN; Protocol; 18 UNITS/KG/HR PRN Reason: ADJUST RATE PER PROTOCOL Last Titration: 10/16/16 14:35 Dose: 12 units/kg/hr, 9.362 mls/hr Meropenem 1g/NS 100mL IVPB (Meropenem 1g/Ns 100ml Ivpb) 1 gm in 100 mls @ 100 mls/hr IVPB Q8 [facility] PRN Reason: Protocol Stop: 10/20/16 22:46 Last Admin: 10/16/16 15:00 Dose: 100 mls/hr Sodium Chloride (Sodium Chloride 0.9%) 1,000 mls @ 75 mls/hr IV .[id number] [facility] Last Admin: 10/16/16 10:57 Dose: 75 mls/hr Insulin Detemir (Levemir) 20 unit SC DAILY [facility] Last Admin: 10/16/16 10:45 Dose: 20 unit Insulin Human Lispro (Humalog Med) 0 units SC ACHS [facility] PRN Reason: Protocol Last Admin: 10/16/16 16:17 Dose: 5 units Metoprolol Tartrate (Lopressor) 5 mg IVP Q6H [facility] Last Admin: 10/16/16 16:20 Dose: 5 mg Morphine Sulfate (Morphine) 2 mg IVP Q6H PRN PRN Reason: Pain, Mild (1-3) Last Admin: 10/13/16 16:29 Dose: 2 mg Pantoprazole Sodium (Protonix Inj) 40 mg IVP 0600 [facility] Last Admin: 10/16/16 05:33 Dose: 40 mg - Labs Labs: 10/16/16 05:30 10/16/16 05:30 PT 12.0 Seconds (9.9-11.8) H 10/13/16 13:20 INR 1.11 (0.93-1.08) H 10/13/16 13:20 APTT 111.5 Seconds (23.7-30.8) H* 10/16/16 12:45 Attending/Attestation - Attestation I have personally seen and examined this patient.: Yes I have fully participated in the care of the patient.: Yes I have reviewed all pertinent clinical information, including history, physical exam and plan: Yes Notes (Text): 10/16/16 18:22 Patient seen and examined at bedside. Sitting comfortably in chair and denies any new complaints. Alert, awake and verbal. Labs, vitals and current orders reviewed. ID follow up ongoing. Heparin drip re-started and being titrated. Continue IV antibiotics per ID. CCM follow up ongoing. Tolerating PO diet well and LFTs improving. Agree with the remainder of plan outlined by the resident.
[2016-10-16 17:50] LABS: GLUCOSE PLEURAL FLUID 320 mg/dL; LDH PLEURAL FLUID 64 U/L; TOTAL PROTEIN PLEURAL FLUID <3.0 g/dL
[2016-10-16] MEDS: Morphine 2 mg/ml ISec IVP PRN (21:00)
[2016-10-17] MEDS: Morphine 2 mg/ml ISec IVP PRN (02:52)
[2016-10-17] MEDS: Heparin 25,000units in D5W 25,000 UNITS/250 ML BAG IV PRN (04:03)
[2016-10-17] MEDS: Metoprolol 1 mg/ml Inj IVP SCH ×2 (04:34→10:20)
[2016-10-17 05:06] LABS: BASO # 0.04 K/mm3 (0.0-2.0); BASO % 0.2 % (0.0-3.0); EOS # 0.1 (0.0-0.7); EOS % 0.6 % (1.5-5.0); GRAN # 17.68 (1.4-6.5); GRAN % 76.9 % (50.0-68.0); HEMOGLOBIN 12.9 gm/dL (12.0-16.0); LYMPH # 2.9 (1.2-3.4); LYMPH % 12.6 % (22.0-35.0); MEAN CELL VOLUME 78.9 fL (80.0-105.0); MEAN CORPUSCULAR HGB CONC 32.9 g/dl (31.0-37.0); MEAN PLATELET VOLUME 11.1 fl (7.0-11.0); MONO # 2.2 (0.1-0.6); MONO % 9.7 % (1.0-6.0); PLATELET COUNT 447 10^3/uL (120.0-450.0); RBC 4.97 10^6/uL (3.5-6.1); RED CELL DISTRIBUTION WIDTH 21.5 % (11.5-14.5)
[2016-10-17 05:11] LABS: INR 1.48 (0.93-1.08)
[2016-10-17 05:13] LABS: ALBUMIN 3.1 g/dL (3.0-4.8); MAGNESIUM 2.1 mg/dL (1.7-2.2)
[2016-10-17] MEDS: Meropenem 1g/NS 100mL IVPB 1 GM/100 ML PIGGYBACK IVPB SCH ×2 (05:20→15:16)
[2016-10-17] MEDS: Insulin Lispro (humaLOG) MEDIUM Coverage SC SCH ×4 (08:28→22:49)
[2016-10-17] MEDS: Insulin Detemir 100 units/ml Vial (Levemir) SC SCH (10:15)
[2016-10-17] MEDS: guaiFENesin 600 mg ER Tab PO SCH ×2 (10:16→17:47)
--- NOTE | 2016-10-17 10:43 | CP.PCM.PN ---
Subjective - Date & Time of Evaluation Date of Evaluation: 10/17/16 Time of Evaluation: 09:40 - Subjective Subjective: Still has occasional abdominal discomfort but breathing better, no fevers overnight. Objective - Vital Signs/Intake and Output Vital Signs (last 24 hours): Temp Pulse Resp BP Pulse Ox 98.4 F 114 H 18 94/59 L 99 10/17/16 04:00 10/17/16 07:40 10/17/16 07:40 10/17/16 07:00 10/17/16 07:10 Intake and Output: 10/17/16 10/17/16 06:59 18:59 Intake Total 1723 Output Total 350 Balance 1373 - Medications Medications: Current Medications Guaifenesin (Mucinex La) 600 mg PO BID [facility] Last Admin: 10/16/16 13:00 Dose: 600 mg Doxycycline Hyclate 100 mg/ (Sodium Chloride) 100 mls @ 100 mls/hr IVPB Q12 IZABELA PRN Reason: Protocol Last Admin: 10/16/16 21:56 Dose: 100 mls/hr Heparin Sodium/Dextrose (Heparin 25,000 Units/250ml In D5w) 25,000 units in 250 mls @ 14.043 mls/hr IV .[id number] PRN; Protocol; 18 UNITS/KG/HR PRN Reason: ADJUST RATE PER PROTOCOL Last Titration: 10/17/16 05:05 Dose: 10.76 units/kg/hr, 8.4 mls/hr Meropenem 1g/NS 100mL IVPB (Meropenem 1g/Ns 100ml Ivpb) 1 gm in 100 mls @ 100 mls/hr IVPB Q8 IZABELA PRN Reason: Protocol Stop: 10/20/16 22:46 Last Admin: 10/17/16 05:20 Dose: 100 mls/hr Sodium Chloride (Sodium Chloride 0.9%) 1,000 mls @ 75 mls/hr IV .[id number] [facility] Last Admin: 10/16/16 20:45 Dose: 75 mls/hr Insulin Detemir (Levemir) 20 unit SC DAILY [facility] Last Admin: 10/16/16 10:45 Dose: 20 unit Insulin Human Lispro (Humalog Med) 0 units SC ACHS [facility] PRN Reason: Protocol Last Admin: 10/17/16 08:28 Dose: 5 units Metoprolol Tartrate (Lopressor) 5 mg IVP Q6H [facility] Last Admin: 10/17/16 04:34 Dose: Not Given Morphine Sulfate (Morphine) 2 mg IVP Q6H PRN PRN Reason: Pain, Mild (1-3) Last Admin: 10/17/16 02:52 Dose: 2 mg Pantoprazole Sodium (Protonix Inj) 40 mg IVP 0600 [facility] Last Admin: 10/17/16 05:21 Dose: 40 mg - Labs Labs: 10/17/16 04:50 10/17/16 04:50 PT 16.0 Seconds (9.9-11.8) H 10/17/16 03:20 INR 1.48 (0.93-1.08) H 10/17/16 03:20 APTT 128.4 Seconds (23.7-30.8) H* 10/17/16 03:20 - Constitutional Appears: Non-toxic, No Acute Distress - Head Exam Head Exam: NORMAL INSPECTION - ENT Exam ENT Exam: Mucous Membranes Moist - Neck Exam Neck Exam: absent: Meningismus - Respiratory Exam Respiratory Exam: Decreased Breath Sounds - Cardiovascular Exam Cardiovascular Exam: +S1, +S2 - GI/Abdominal Exam GI & Abdominal Exam: Soft, Tenderness (mild, epigastric). absent: Distended, Guarding, Rigid, Rebound Assessment and Plan - Assessment and Plan (Free Text) Plan: Assessment consider severe sepsis S/P hypoxic ventilator-dependent respiratory failure probably due to bilateral lower lobe healthcare-associated pneumonia with possible gram positive cocci, gram negative bacilli and/or atypical organisms, with associated hyperglycemic, hyperosmolar state with also acute pancreatitis, etiology to be determined - clinically improving and now extubated history of healthcare-associated pneumonia, right middle lobe history of bilateral healthcare-associated pneumonia in this patient chronic heart failure S/P acute cholecystitis, S/P laparoscopic cholecystectomy CAD with chronic CHF DM HTN history of migraines bipolar disorder Plan continue Merrem and Doxycycline day 4; cultures have been negative; reviewed CT abdomen monitor lipase levels will continue to monitor clinically
[2016-10-17] MEDS: POLYETHYLENE GLYCOL 3350 17 GM/Dose PACKET PO SCH ×2 (15:17→17:46)
--- NOTE | 2016-10-17 15:47 | CP.PCM.PN ---
<SAROJ FLYNN - Last Filed: 10/17/16 17:28> Subjective - Date & Time of Evaluation Date of Evaluation: 10/17/16 Time of Evaluation: 07:30 - Subjective Subjective: Patient was seen and examined at bedside at ICU. Pt complaining of a cough and feels like she cannot bring phlegm up. Pt denies any cp/palpitations, sob, fevers, night sweats, n/v/d, headaches or changes in vision. Objective - Vital Signs/Intake and Output Vital Signs (last 24 hours): Temp Pulse Resp BP Pulse Ox 98.4 F 109 H 18 98/70 L 99 10/17/16 04:00 10/17/16 10:20 10/17/16 07:40 10/17/16 10:20 10/17/16 07:10 Intake and Output: 10/17/16 10/17/16 06:59 18:59 Intake Total 1723 Output Total 350 Balance 1373 - Medications Medications: Current Medications Apixaban (Eliquis) 2.5 mg PO BID [facility] Guaifenesin (Mucinex La) 600 mg PO BID [facility] Last Admin: 10/17/16 10:16 Dose: 600 mg Doxycycline Hyclate 100 mg/ (Sodium Chloride) 100 mls @ 100 mls/hr IVPB Q12 [facility] PRN Reason: Protocol Last Admin: 10/17/16 10:16 Dose: 100 mls/hr Meropenem 1g/NS 100mL IVPB (Meropenem 1g/Ns 100ml Ivpb) 1 gm in 100 mls @ 100 mls/hr IVPB Q8 [facility] PRN Reason: Protocol Stop: 10/20/16 22:46 Last Admin: 10/17/16 15:16 Dose: 100 mls/hr Sodium Chloride (Sodium Chloride 0.9%) 1,000 mls @ 75 mls/hr IV .[id number] [facility] Last Admin: 10/16/16 20:45 Dose: 75 mls/hr Insulin Detemir (Levemir) 20 unit SC DAILY [facility] Last Admin: 10/17/16 10:15 Dose: 20 unit Insulin Human Lispro (Humalog Med) 0 units SC ACHS [facility] PRN Reason: Protocol Last Admin: 10/17/16 11:52 Dose: 8 units Metoprolol Tartrate (Lopressor) 50 mg PO BID [facility] Morphine Sulfate (Morphine) 2 mg IVP Q6H PRN PRN Reason: Pain, Mild (1-3) Last Admin: 10/17/16 02:52 Dose: 2 mg Pantoprazole Sodium (Protonix Inj) 40 mg IVP 0600 [facility] Last Admin: 10/17/16 05:21 Dose: 40 mg Polyethylene Glycol (Miralax) 17 gm PO BID [facility] Last Admin: 10/17/16 15:17 Dose: 17 gm - Labs Labs: 10/17/16 04:50 10/17/16 04:50 PT 16.0 Seconds (9.9-11.8) H 10/17/16 03:20 INR 1.48 (0.93-1.08) H 10/17/16 03:20 APTT 128.4 Seconds (23.7-30.8) H* 10/17/16 03:20 - Additional Findings Additional findings: - Constitutional Appears: Well, No Acute Distress - Head Exam Head Exam: ATRAUMATIC, NORMOCEPHALIC - Eye Exam Eye Exam: EOMI, Normal appearance, PERRL - ENT Exam ENT Exam: Mucous Membranes Moist, Normal Exam - Respiratory Exam Respiratory Exam: Clear to Ausculation Bilateral, NORMAL BREATHING PATTERN. absent: Accessory Muscle Use, Chest Wall Tenderness, Rhonchi, Respiratory Distress Additional comments: breathing on 4L O2 NC, pt is extubated, in no acute respiratory distress - Cardiovascular Exam Cardiovascular Exam: RRR - GI/Abdominal Exam GI & Abdominal Exam: Soft, Normal Bowel Sounds. absent: Tenderness - Neurological Exam Neurological Exam: Alert, Awake, Oriented x3 - Psychiatric Exam Psychiatric exam: Normal Affect, Normal Mood - Skin Skin Exam: Normal Color, Warm Assessment and Plan - Assessment and Plan (Free Text) Assessment: 51 y/o female with PMHx of DM2, CHF (EF 30% in 03/2016), HTN, chronic pulmonary effusion, HTN, DVT, PE, hypothyroidism, schizophrenia and Bipolar disorder presented to the ED with complaints of abdominal pain x1week. Patient has been transferred from ICU today on day 5 to remote [facility], HHS improved, pt extubated and in NAD. Plan: 1. Severe sepsis likely 2/2 CAP vs colitis vs pancreatitis - continue Meronepem and Doxycycline day 4 - blood and cultures negative for growth - sputum cultures showed yeast - Leukocytosis improved (WBC 23) and pt clinically improving - ID consulted, recs appreciated - Surgery is consulted- no surgical intervention needed 2. Respiratory failure - pt was extubated on 10/15 and O2Sat is maintained well on NC - monitor vitals - pt transferred to remote tele floor for further management and optimization 3. Congested cough - cont Mucinex 4. Transaminits - improving - GI consult for colitis, recs appreciated 5. UTI - repeat UA was clean, 1st one likely contaminated 6. HONK resolved - FS 300's - Levemir increased to 22u daily, cont Humalog 7. Lactic acidosis - resolved 8. Hypotension - dobutamine PRN PTX/Eliquis Patient seen, discussed and evaluated with attending, Dr. Perry Flynn, PGY1 <Annmarie Amador - Last Filed: 10/19/16 17:25> Objective - Vital Signs/Intake and Output Vital Signs (last 24 hours): Temp Pulse Resp BP Pulse Ox 97 F L 70 18 90/54 L 90 L 10/19/16 09:03 10/19/16 10:09 10/19/16 09:03 10/19/16 10:09 10/19/16 09:03 Intake and Output: 10/19/16 10/19/16 06:59 18:59 Intake Total 1360 Output Total 200 Balance 1160 - Medications Medications: Current Medications Apixaban (Eliquis) 2.5 mg PO BID [facility] Last Admin: 10/19/16 10:09 Dose: 2.5 mg Guaifenesin (Mucinex La) 600 mg PO BID [facility] Last Admin: 10/19/16 10:09 Dose: 600 mg Doxycycline Hyclate 100 mg/ (Sodium Chloride) 100 mls @ 100 mls/hr IVPB Q12 [facility] PRN Reason: Protocol Last Admin: 10/19/16 10:16 Dose: 100 mls/hr Insulin Detemir (Levemir) 24 unit SC DAILY [facility] Last Admin: 10/19/16 10:09 Dose: 24 unit Insulin Human Lispro (Humalog Med) 0 units SC ACHS [facility] PRN Reason: Protocol Last Admin: 10/19/16 08:16 Dose: 3 units Lorazepam (Ativan) 0.25 mg PO HS [facility] PRN Reason: Protocol Metoprolol Tartrate (Lopressor) 50 mg PO BID [facility] Last Admin: 10/19/16 10:09 Dose: Not Given Morphine Sulfate (Morphine) 2 mg IVP Q6H PRN PRN Reason: Pain, Mild (1-3) Last Admin: 10/19/16 05:20 Dose: 2 mg Pantoprazole Sodium (Protonix Inj) 40 mg IVP 0600 [facility] Last Admin: 10/19/16 05:19 Dose: 40 mg Polyethylene Glycol (Miralax) 17 gm PO BID [facility] Last Admin: 10/19/16 10:09 Dose: 17 gm Risperidone (Risperdal Tab) 1 mg PO HS [facility] PRN Reason: Protocol Last Admin: 10/18/16 21:17 Dose: 1 mg - Labs Labs: 10/18/16 07:00 10/18/16 07:00 PT 13.8 Seconds (9.9-11.8) H 10/18/16 07:00 INR 1.28 (0.93-1.08) H 10/18/16 07:00 APTT 29.4 Seconds (23.7-30.8) 10/18/16 07:00 Attending/Attestation - Attestation I have personally seen and examined this patient.: Yes I have fully participated in the care of the patient.: Yes I have reviewed all pertinent clinical information, including history, physical exam and plan: Yes Notes (Text): I have seen and examined patient at bedside. Agree with the above note with the following additions/ exceptions: Briefly this is 51 year old female with history of DM-2, CHF(EF~30%) due to previous chemo and XRT for lymphoma, HTN, chronic pulmonary effusion, HTN, DVT, PE on eliquis, hypothyroidism, schizophrenia and Bipolar disorder who presented initially with diffuse abdominal pain and confusion and found to be in HONK and code sepsis was called most likely due to HCAP vs abdominal etiology( Suspected colitis on CT scan). She is on meropenem and doxy. Blood and urine cultures negative. Sputum cultures showed yeast. Will monitor patient clinically. Upon discharge patient will follow up with Dr Roman. Dr Annmarie Amador
[2016-10-17] MEDS ORDERED: Insulin Detemir 100 units/ml Vial (Levemir) SC SCH (17:22)
[2016-10-18] MEDS: Meropenem 1g/NS 100mL IVPB 1 GM/100 ML PIGGYBACK IVPB SCH ×3 (00:15→13:53)
[2016-10-18] MEDS: Sodium Chloride 0.9% 1,000 ML IV SCH (00:21)
--- NOTE | 2016-10-18 00:21 | CP.PCM.PN ---
Subjective - Date & Time of Evaluation Date of Evaluation: 10/18/16 Time of Evaluation: 00:20 - Subjective Subjective: # 22 angiocath was inserted in Right thumb. Dx: Poor venous access. Objective - Vital Signs/Intake and Output Vital Signs (last 24 hours): Temp Pulse Resp BP Pulse Ox 98.4 F 106 H 25 H 124/82 95 10/17/16 08:00 10/17/16 17:44 10/17/16 15:40 10/17/16 17:44 10/17/16 08:00 Intake and Output: 10/17/16 10/18/16 18:59 06:59 Intake Total 300 Balance 300 - Medications Medications: Current Medications Apixaban (Eliquis) 2.5 mg PO BID [facility] Last Admin: 10/17/16 17:44 Dose: 2.5 mg Guaifenesin (Mucinex La) 600 mg PO BID [facility] Last Admin: 10/17/16 17:47 Dose: 600 mg Doxycycline Hyclate 100 mg/ (Sodium Chloride) 100 mls @ 100 mls/hr IVPB Q12 [facility] PRN Reason: Protocol Last Admin: 10/18/16 00:15 Dose: 100 mls/hr Meropenem 1g/NS 100mL IVPB (Meropenem 1g/Ns 100ml Ivpb) 1 gm in 100 mls @ 100 mls/hr IVPB Q8 [facility] PRN Reason: Protocol Stop: 10/20/16 22:46 Last Admin: 10/18/16 00:15 Dose: 100 mls/hr Sodium Chloride (Sodium Chloride 0.9%) 1,000 mls @ 75 mls/hr IV .[id number] [facility] Last Admin: 10/16/16 20:45 Dose: 75 mls/hr Insulin Detemir (Levemir) 22 unit SC DAILY [facility] Insulin Human Lispro (Humalog Med) 0 units SC ACHS [facility] PRN Reason: Protocol Last Admin: 10/17/16 22:49 Dose: Not Given Metoprolol Tartrate (Lopressor) 50 mg PO BID [facility] Last Admin: 10/17/16 17:44 Dose: 50 mg Morphine Sulfate (Morphine) 2 mg IVP Q6H PRN PRN Reason: Pain, Mild (1-3) Last Admin: 10/17/16 02:52 Dose: 2 mg Pantoprazole Sodium (Protonix Inj) 40 mg IVP 0600 [facility] Last Admin: 10/17/16 05:21 Dose: 40 mg Polyethylene Glycol (Miralax) 17 gm PO BID [facility] Last Admin: 10/17/16 17:46 Dose: Not Given - Labs Labs: 10/17/16 04:50 10/17/16 04:50 PT 16.0 Seconds (9.9-11.8) H 10/17/16 03:20 INR 1.48 (0.93-1.08) H 10/17/16 03:20 APTT 128.4 Seconds (23.7-30.8) H* 10/17/16 03:20
[2016-10-18] MEDS: Morphine 2 mg/ml ISec IVP PRN ×3 (01:19→23:15)
--- NOTE | 2016-10-18 03:36 | CP.PCM.PN ---
Subjective - Date & Time of Evaluation Date of Evaluation: 10/18/16 Time of Evaluation: 03:35 - Subjective Subjective: Patient pulled out heparin lock as per nurse. # 22 angiocath was inserted in right upper arm. Dx:Poor venous access. Objective - Vital Signs/Intake and Output Vital Signs (last 24 hours): Temp Pulse Resp BP Pulse Ox 98.4 F 106 H 25 H 124/82 95 10/17/16 08:00 10/17/16 17:44 10/17/16 15:40 10/17/16 17:44 10/17/16 08:00 Intake and Output: 10/17/16 10/18/16 18:59 06:59 Intake Total 300 Balance 300 - Medications Medications: Current Medications Apixaban (Eliquis) 2.5 mg PO BID [facility] Last Admin: 10/17/16 17:44 Dose: 2.5 mg Guaifenesin (Mucinex La) 600 mg PO BID [facility] Last Admin: 10/17/16 17:47 Dose: 600 mg Doxycycline Hyclate 100 mg/ (Sodium Chloride) 100 mls @ 100 mls/hr IVPB Q12 [facility] PRN Reason: Protocol Last Admin: 10/18/16 00:15 Dose: 100 mls/hr Meropenem 1g/NS 100mL IVPB (Meropenem 1g/Ns 100ml Ivpb) 1 gm in 100 mls @ 100 mls/hr IVPB Q8 [facility] PRN Reason: Protocol Stop: 10/20/16 22:46 Last Admin: 10/18/16 00:15 Dose: 100 mls/hr Sodium Chloride (Sodium Chloride 0.9%) 1,000 mls @ 75 mls/hr IV .[id number] [facility] Last Admin: 10/18/16 00:21 Dose: 75 mls/hr Insulin Detemir (Levemir) 22 unit SC DAILY [facility] Insulin Human Lispro (Humalog Med) 0 units SC ACHS [facility] PRN Reason: Protocol Last Admin: 10/17/16 22:49 Dose: Not Given Lorazepam (Ativan) 0.5 mg PO HS [facility] PRN Reason: Protocol Metoprolol Tartrate (Lopressor) 50 mg PO BID [facility] Last Admin: 10/17/16 17:44 Dose: 50 mg Morphine Sulfate (Morphine) 2 mg IVP Q6H PRN PRN Reason: Pain, Mild (1-3) Last Admin: 10/18/16 01:19 Dose: 2 mg Pantoprazole Sodium (Protonix Inj) 40 mg IVP 0600 [facility] Last Admin: 10/17/16 05:21 Dose: 40 mg Polyethylene Glycol (Miralax) 17 gm PO BID [facility] Last Admin: 10/17/16 17:46 Dose: Not Given Risperidone (Risperdal Tab) 1 mg PO HS [facility] PRN Reason: Protocol - Labs Labs: 10/17/16 04:50 10/17/16 04:50 PT 16.0 Seconds (9.9-11.8) H 10/17/16 03:20 INR 1.48 (0.93-1.08) H 10/17/16 03:20 APTT 128.4 Seconds (23.7-30.8) H* 10/17/16 03:20
[2016-10-18] MEDS: Insulin Lispro (humaLOG) MEDIUM Coverage SC SCH ×4 (08:07→23:23)
[2016-10-18 08:21] LABS: BASO # 0.03 K/mm3 (0.0-2.0); BASO % 0.2 % (0.0-3.0); EOS # 0.2 (0.0-0.7); EOS % 0.9 % (1.5-5.0); GRAN # 11.09 (1.4-6.5); GRAN % 65.9 % (50.0-68.0); HEMOGLOBIN 11.4 gm/dL (12.0-16.0); LYMPH # 3.5 (1.2-3.4); LYMPH % 20.6 % (22.0-35.0); MEAN CELL VOLUME 78.2 fL (80.0-105.0); MEAN CORPUSCULAR HEMOGLOBIN 25.3 pg (25.0-35.0); MEAN CORPUSCULAR HGB CONC 32.4 g/dl (31.0-37.0); MEAN PLATELET VOLUME 10.9 fl (7.0-11.0); MONO # 2.1 (0.1-0.6); MONO % 12.4 % (1.0-6.0); PLATELET COUNT 392 10^3/uL (120.0-450.0); WHITE BLOOD COUNT 16.8 10^3/ul (4.5-11.0)
[2016-10-18 08:37] LABS: INR 1.28 (0.93-1.08); PARTIAL THROMBOPLASTIN TIME 29.4 Seconds (23.7-30.8); PROTHROMBIN TIME 13.8 Seconds (9.9-11.8)
[2016-10-18 08:39] LABS: ALBUMIN 3.1 g/dL (3.0-4.8); CALCIUM 8.3 mg/dL (8.4-10.5)
[2016-10-18] MEDS: guaiFENesin 600 mg ER Tab PO SCH ×2 (09:55→17:24)
[2016-10-18] MEDS: POLYETHYLENE GLYCOL 3350 17 GM/Dose PACKET PO SCH ×2 (09:55→17:34)
--- NOTE | 2016-10-18 14:11 | CP.PCM.PN ---
<SAROJ FLYNN - Last Filed: 10/18/16 15:43> Subjective - Date & Time of Evaluation Date of Evaluation: 10/18/16 Time of Evaluation: 10:00 - Subjective Subjective: Patient was seen and examined bedside. pt complains of a LUQ pain that she localizes with one finger to be in her epigastric region and states that it is 10/10 and that it hurts her when she lies down. She states that she drank some shantanu carlito and had an episode of diarrhea. Pt also complaining of swelling in her hands and legs. Objective - Vital Signs/Intake and Output Vital Signs (last 24 hours): Temp Pulse Resp BP Pulse Ox 97.8 F 77 21 100/60 95 10/18/16 09:12 10/18/16 09:55 10/18/16 09:12 10/18/16 11:35 10/18/16 09:12 Intake and Output: 10/18/16 10/18/16 06:59 18:59 Intake Total 1200 280 Output Total 0 Balance 1200 280 - Medications Medications: Current Medications Apixaban (Eliquis) 2.5 mg PO BID [facility] Last Admin: 10/18/16 09:55 Dose: 2.5 mg Guaifenesin (Mucinex La) 600 mg PO BID [facility] Last Admin: 10/18/16 09:55 Dose: 600 mg Doxycycline Hyclate 100 mg/ (Sodium Chloride) 100 mls @ 100 mls/hr IVPB Q12 [facility] PRN Reason: Protocol Last Admin: 10/18/16 09:49 Dose: 100 mls/hr Meropenem 1g/NS 100mL IVPB (Meropenem 1g/Ns 100ml Ivpb) 1 gm in 100 mls @ 100 mls/hr IVPB Q8 [facility] PRN Reason: Protocol Stop: 10/20/16 22:46 Last Admin: 10/18/16 13:53 Dose: 100 mls/hr Insulin Detemir (Levemir) 24 unit SC DAILY [facility] Insulin Human Lispro (Humalog Med) 0 units SC ACHS [facility] PRN Reason: Protocol Last Admin: 10/18/16 11:42 Dose: 7 units Lorazepam (Ativan) 0.5 mg PO HS [facility] PRN Reason: Protocol Metoprolol Tartrate (Lopressor) 50 mg PO BID [facility] Last Admin: 10/18/16 09:55 Dose: 50 mg Morphine Sulfate (Morphine) 2 mg IVP Q6H PRN PRN Reason: Pain, Mild (1-3) Last Admin: 10/18/16 01:19 Dose: 2 mg Pantoprazole Sodium (Protonix Inj) 40 mg IVP 0600 [facility] Last Admin: 10/18/16 05:37 Dose: 40 mg Polyethylene Glycol (Miralax) 17 gm PO BID [facility] Last Admin: 10/18/16 09:55 Dose: 17 gm Risperidone (Risperdal Tab) 1 mg PO HS [facility] PRN Reason: Protocol - Labs Labs: 10/18/16 07:00 10/18/16 07:00 PT 13.8 Seconds (9.9-11.8) H 10/18/16 07:00 INR 1.28 (0.93-1.08) H 10/18/16 07:00 APTT 29.4 Seconds (23.7-30.8) 10/18/16 07:00 - Constitutional Appears: Well, No Acute Distress, Unkempt, Older Than Stated Age - Head Exam Head Exam: ATRAUMATIC, NORMAL INSPECTION, NORMOCEPHALIC - Eye Exam Eye Exam: EOMI, Normal appearance, PERRL - ENT Exam ENT Exam: Mucous Membranes Moist, Normal Exam - Respiratory Exam Respiratory Exam: Clear to Ausculation Bilateral, NORMAL BREATHING PATTERN. absent: Accessory Muscle Use, Chest Wall Tenderness, Rales, Rhonchi, Wheezes, Respiratory Distress, Stridor - Cardiovascular Exam Cardiovascular Exam: REGULAR RHYTHM, +S1, +S2. absent: Gallop, JVD, Rubs, Murmur - GI/Abdominal Exam GI & Abdominal Exam: Soft, Normal Bowel Sounds. absent: Distended, Firm, Tenderness (pt not noticably in any discomfort or tenderness upon palpation of all 4 quandrants ) - Neurological Exam Neurological Exam: Alert, Awake - Psychiatric Exam Psychiatric exam: Normal Affect, Normal Mood - Skin Skin Exam: Normal Color, Warm Assessment and Plan - Assessment and Plan (Free Text) Assessment: 51 y/o female with PMHx of DM2, CHF (EF 30% in 03/2016), HTN, chronic pulmonary effusion, HTN, DVT, PE, hypothyroidism, PSH of lap mitchell in 05/2016 and psych hx of schizophrenia and Bipolar disorder presented to the ED with complaints of abdominal pain x1week. Patient is on remote tele day 2, HHS improved, pt extubated and in NAD. Plan: 1. Abdominal pain - hepatitis panel, lipase and GGT ordered, f/u - ALP rising (650) - lap mitchell in May 2016 - per nurse, pt doesn't have diarrhea, but soft stools and she eats a lot and so she has several BM. Pt is known to be poor historian 2. Edema in 4 extremities - Echo ordered, f/u - Lasix 40mg given - NS stopped 3. Severe sepsis likely 2/2 CAP vs colitis vs pancreatitis - continue Meronepem and Doxycycline day 5 - blood and cultures negative for growth - sputum cultures showed yeast - Leukocytosis improving (WBC 16.8) and pt clinically improving - ID consulted, recs appreciated - Surgery is consulted- no surgical intervention needed 4. Respiratory failure - pt was extubated on 10/15 and O2Sat is maintained well on NC - monitor vitals 5. Congested cough - cont Mucinex 6. Transaminits - improving - GI consult for colitis, recs appreciated 5. UTI - repeat UA was clean, 1st one likely contaminated 7. HONK resolved - FS 300's - Levemir increased to 24u daily, cont Humalog 8. Lactic acidosis - resolved 9. Hypotension - dobutamine PRN 10. Dispo: PT recommends MITCH PTX/Eliquis Patient seen, discussed and evaluated with attending, Dr. Perry Flnyn, PGY1 <Annmarie Amador - Last Filed: 10/20/16 18:16> Objective - Vital Signs/Intake and Output Vital Signs (last 24 hours): Temp Pulse Resp BP Pulse Ox 97 F L 70 18 90/54 L 90 L 10/19/16 09:03 10/19/16 10:09 10/19/16 09:03 10/19/16 10:09 10/19/16 09:03 Intake and Output: 10/19/16 10/19/16 06:59 18:59 Intake Total 1360 Output Total 200 Balance 1160 - Medications Medications: Current Medications Apixaban (Eliquis) 2.5 mg PO BID [facility] Last Admin: 10/19/16 10:09 Dose: 2.5 mg Guaifenesin (Mucinex La) 600 mg PO BID [facility] Last Admin: 07/12/17 10:09 Dose: 600 mg Doxycycline Hyclate 100 mg/ (Sodium Chloride) 100 mls @ 100 mls/hr IVPB Q12 [facility] PRN Reason: Protocol Last Admin: 10/19/16 10:16 Dose: 100 mls/hr Insulin Detemir (Levemir) 24 unit SC DAILY [facility] Last Admin: 10/19/16 10:09 Dose: 24 unit Insulin Human Lispro (Humalog Med) 0 units SC ACHS [facility] PRN Reason: Protocol Last Admin: 10/19/16 08:16 Dose: 3 units Lorazepam (Ativan) 0.25 mg PO HS [facility] PRN Reason: Protocol Metoprolol Tartrate (Lopressor) 50 mg PO BID [facility] Last Admin: 10/19/16 10:09 Dose: Not Given Pantoprazole Sodium (Protonix Inj) 40 mg IVP 0600 [facility] Last Admin: 10/19/16 05:19 Dose: 40 mg Polyethylene Glycol (Miralax) 17 gm PO BID [facility] Last Admin: 10/19/16 10:09 Dose: 17 gm Risperidone (Risperdal Tab) 1 mg PO HS [facility] PRN Reason: Protocol Last Admin: 10/18/16 21:17 Dose: 1 mg - Labs Labs: 10/18/16 07:00 10/18/16 07:00 PT 13.8 Seconds (9.9-11.8) H 10/18/16 07:00 INR 1.28 (0.93-1.08) H 10/18/16 07:00 APTT 29.4 Seconds (23.7-30.8) 10/18/16 07:00 Attending/Attestation - Attestation I have personally seen and examined this patient.: Yes I have fully participated in the care of the patient.: Yes I have reviewed all pertinent clinical information, including history, physical exam and plan: Yes Notes (Text): I have seen and examined patient at bedside. Agree with the above note with the following additions/ exceptions: Briefly this is 51 year old female with history of DM-2, CHF(EF~30%) due to previous chemo and XRT for lymphoma, HTN, chronic pulmonary effusion, HTN, DVT, PE on eliquis, hypothyroidism, schizophrenia and Bipolar disorder who presented initially with diffuse abdominal pain and confusion and found to be in HONK and code sepsis was called most likely due to HCAP vs abdominal etiology( Suspected colitis on CT scan). She is on meropenem and doxy. Start Lasix. Blood and urine cultures negative. Sputum cultures showed yeast. Will monitor patient clinically. PT recommended MITCH. Upon discharge patient will follow up with Dr Roman. Dr Annmarie Amador
[2016-10-18 14:27] LABS: HEPATITIS B SURFACE AG NEGATIVE (NEGATIVE)
[2016-10-18 14:32] LABS: HEPATITIS A IGM NEGATIVE (NEGATIVE)
[2016-10-18 14:33] LABS: HEPATITIS B CORE AB NEGATIVE (NEGATIVE)
[2016-10-18 14:42] LABS: HEPATITIS C ANTIBODY NEGATIVE (NEGATIVE)
--- NOTE | 2016-10-18 18:52 | CP.PCM.PN ---
Subjective - Date & Time of Evaluation Date of Evaluation: 10/18/16 Time of Evaluation: 12:10 - Subjective Subjective: Comfortable in bed, not in distress, afebrile. Objective - Vital Signs/Intake and Output Vital Signs (last 24 hours): Temp Pulse Resp BP Pulse Ox 97.6 F 99 H 19 101/68 98 10/18/16 01:00 10/18/16 05:30 10/18/16 01:00 10/18/16 01:00 10/18/16 01:00 Intake and Output: 10/18/16 10/18/16 06:59 18:59 Intake Total 1200 280 Output Total 0 Balance 1200 280 - Medications Medications: Current Medications Apixaban (Eliquis) 2.5 mg PO BID [facility] Last Admin: 10/17/16 17:44 Dose: 2.5 mg Guaifenesin (Mucinex La) 600 mg PO BID [facility] Last Admin: 10/17/16 17:47 Dose: 600 mg Doxycycline Hyclate 100 mg/ (Sodium Chloride) 100 mls @ 100 mls/hr IVPB Q12 [facility] PRN Reason: Protocol Last Admin: 10/18/16 00:15 Dose: 100 mls/hr Meropenem 1g/NS 100mL IVPB (Meropenem 1g/Ns 100ml Ivpb) 1 gm in 100 mls @ 100 mls/hr IVPB Q8 [facility] PRN Reason: Protocol Stop: 10/20/16 22:46 Last Admin: 10/18/16 05:37 Dose: 100 mls/hr Sodium Chloride (Sodium Chloride 0.9%) 1,000 mls @ 75 mls/hr IV .[id number] [facility] Last Admin: 10/18/16 00:21 Dose: 75 mls/hr Insulin Detemir (Levemir) 22 unit SC DAILY [facility] Insulin Human Lispro (Humalog Med) 0 units SC ACHS [facility] PRN Reason: Protocol Last Admin: 10/18/16 08:07 Dose: 3 units Lorazepam (Ativan) 0.5 mg PO HS [facility] PRN Reason: Protocol Metoprolol Tartrate (Lopressor) 50 mg PO BID [facility] Last Admin: 10/17/16 17:44 Dose: 50 mg Morphine Sulfate (Morphine) 2 mg IVP Q6H [facility]N PRN Reason: Pain, Mild (1-3) Last Admin: 10/18/16 01:19 Dose: 2 mg Pantoprazole Sodium (Protonix Inj) 40 mg IVP 0600 [facility] Last Admin: 10/18/16 05:37 Dose: 40 mg Polyethylene Glycol (Miralax) 17 gm PO BID [facility] Last Admin: 10/17/16 17:46 Dose: Not Given Risperidone (Risperdal Tab) 1 mg PO HS [facility] PRN Reason: Protocol - Labs Labs: 10/18/16 07:00 10/17/16 04:50 PT 16.0 Seconds (9.9-11.8) H 10/17/16 03:20 INR 1.48 (0.93-1.08) H 10/17/16 03:20 APTT 128.4 Seconds (23.7-30.8) H* 10/17/16 03:20 - Constitutional Appears: Non-toxic, No Acute Distress - Head Exam Head Exam: NORMAL INSPECTION - ENT Exam ENT Exam: Mucous Membranes Moist - Neck Exam Neck Exam: absent: Lymphadenopathy, Meningismus - Respiratory Exam Respiratory Exam: Decreased Breath Sounds - Cardiovascular Exam Cardiovascular Exam: +S1, +S2 - GI/Abdominal Exam GI & Abdominal Exam: Soft. absent: Tenderness Assessment and Plan - Assessment and Plan (Free Text) Plan: Assessment consider severe sepsis S/P hypoxic ventilator-dependent respiratory failure probably due to bilateral lower lobe healthcare-associated pneumonia with possible gram positive cocci, gram negative bacilli and/or atypical organisms, with associated hyperglycemic, hyperosmolar state with also acute pancreatitis, etiology to be determined - clinically improving and has been extubated history of healthcare-associated pneumonia, right middle lobe history of bilateral healthcare-associated pneumonia in this patient chronic heart failure S/P acute cholecystitis, S/P laparoscopic cholecystectomy CAD with chronic CHF DM HTN history of migraines bipolar disorder Plan continue Merrem and Doxycycline day 5; cultures have been negative; reviewed CT abdomen; should complete at least 7 days of therapy monitor lipase levels; follow up GI recommendations will continue to monitor clinically
[2016-10-19] MEDS: Morphine 2 mg/ml ISec IVP PRN (05:20)
[2016-10-19] MEDS ORDERED: Sodium Chloride 0.9% 100 ML IV STA (06:18)
[2016-10-19] MEDS ORDERED: Sodium Chloride 0.9% 250 ML IV STA (06:37)
[2016-10-19] MEDS: Insulin Lispro (humaLOG) MEDIUM Coverage SC SCH ×4 (08:16→22:00)
[2016-10-19] MEDS: guaiFENesin 600 mg ER Tab PO SCH ×3 (10:08→17:40)
[2016-10-19] MEDS: POLYETHYLENE GLYCOL 3350 17 GM/Dose PACKET PO SCH ×2 (10:09→17:39)
[2016-10-19] MEDS: Insulin Detemir 100 units/ml Vial (Levemir) SC SCH (10:09)
--- NOTE | 2016-10-19 12:24 | CP.PCM.PN ---
Subjective - Date & Time of Evaluation Date of Evaluation: 10/19/16 Time of Evaluation: 11:55 - Subjective Subjective: Afebrile overnight, not in distress. Objective - Vital Signs/Intake and Output Vital Signs (last 24 hours): Temp Pulse Resp BP Pulse Ox 97.5 F L 97 H 20 102/63 99 10/18/16 16:00 10/19/16 05:17 10/18/16 16:00 10/18/16 17:26 10/18/16 16:00 Intake and Output: 10/19/16 10/19/16 06:59 18:59 Intake Total 1360 Output Total 200 Balance 1160 - Medications Medications: Current Medications Apixaban (Eliquis) 2.5 mg PO BID [facility] Last Admin: 10/18/16 17:24 Dose: 2.5 mg Guaifenesin (Mucinex La) 600 mg PO BID [facility] Last Admin: 10/18/16 17:24 Dose: 600 mg Doxycycline Hyclate 100 mg/ (Sodium Chloride) 100 mls @ 100 mls/hr IVPB Q12 [facility] PRN Reason: Protocol Last Admin: 10/18/16 22:03 Dose: 100 mls/hr Insulin Detemir (Levemir) 24 unit SC DAILY [facility] Insulin Human Lispro (Humalog Med) 0 units SC ACHS [facility] PRN Reason: Protocol Last Admin: 10/19/16 08:16 Dose: 3 units Lorazepam (Ativan) 0.5 mg PO HS [facility] PRN Reason: Protocol Last Admin: 10/18/16 21:17 Dose: 0.5 mg Metoprolol Tartrate (Lopressor) 50 mg PO BID [facility] Last Admin: 10/18/16 17:26 Dose: 50 mg Morphine Sulfate (Morphine) 2 mg IVP Q6H PRN PRN Reason: Pain, Mild (1-3) Last Admin: 10/19/16 05:20 Dose: 2 mg Pantoprazole Sodium (Protonix Inj) 40 mg IVP 0600 [facility] Last Admin: 10/19/16 05:19 Dose: 40 mg Polyethylene Glycol (Miralax) 17 gm PO BID [facility] Last Admin: 10/18/16 17:34 Dose: Not Given Risperidone (Risperdal Tab) 1 mg PO HS [facility] PRN Reason: Protocol Last Admin: 10/18/16 21:17 Dose: 1 mg - Labs Labs: 10/18/16 07:00 10/18/16 07:00 PT 13.8 Seconds (9.9-11.8) H 10/18/16 07:00 INR 1.28 (0.93-1.08) H 10/18/16 07:00 APTT 29.4 Seconds (23.7-30.8) 10/18/16 07:00 - Constitutional Appears: Non-toxic, No Acute Distress - Head Exam Head Exam: NORMAL INSPECTION - Neck Exam Neck Exam: absent: Meningismus - Respiratory Exam Respiratory Exam: Decreased Breath Sounds - Cardiovascular Exam Cardiovascular Exam: +S1, +S2 - GI/Abdominal Exam GI & Abdominal Exam: Soft. absent: Tenderness Assessment and Plan - Assessment and Plan (Free Text) Plan: Assessment consider severe sepsis S/P hypoxic ventilator-dependent respiratory failure probably due to bilateral lower lobe healthcare-associated pneumonia with possible gram positive cocci, gram negative bacilli and/or atypical organisms, with associated hyperglycemic, hyperosmolar state with also acute pancreatitis, etiology to be determined - clinically improving and has been extubated for several days now elevated Alk phos and transaminases in a patient with pancreatitis R/O biliary tree obstruction history of healthcare-associated pneumonia, right middle lobe history of bilateral healthcare-associated pneumonia in this patient chronic heart failure S/P acute cholecystitis, S/P laparoscopic cholecystectomy CAD with chronic CHF DM HTN history of migraines bipolar disorder Plan continue Merrem and Doxycycline day 6; cultures have been negative; reviewed CT abdomen; follow up MRCP results to be done today will continue to monitor clinically
--- NOTE | 2016-10-19 13:13 | CP.PCM.CON ---
History of Present Illness - History of Present Illness History of Present Illness: A 51 year old female, whose past medical history includes Lymphoma treated 7 y/A , h/o diabetes, hypertension, hypothyroidism, COPD, CHF on lasix, schizophrenia and bipolar disorder, admitted because of abdominal pain for 1 week. Patient found to be in Anasarca with Ascites and pleural effusion C/O SOB and leg swelling Past Patient History - Infectious Disease Hx of Infectious Diseases: None - Tetanus Immunizations Tetanus Immunization: Unknown - Past Medical History & Family History Past Medical History?: Yes - Past Social History Smoking Status: Former Smoker - CARDIAC Hx Cardiac Disorders: Yes Hx Congestive Heart Failure: Yes Hx Hypertension: Yes - PULMONARY Hx Chronic Obstructive Pulmonary Disease (COPD): Yes - NEUROLOGICAL Hx Neurological Disorder: No Hx Seizures: No - HEENT Hx HEENT Problems: No - RENAL Hx Chronic Kidney Disease: No - ENDOCRINE/METABOLIC Hx Diabetes Mellitus Type 2: Yes Hx Hypothyroidism: Yes - HEMATOLOGICAL/ONCOLOGICAL Hx Blood Disorders: No - INTEGUMENTARY Hx Dermatological Problems: No Hx Basil Cell: No Hx Eczema: No Hx Melanoma: No Hx Psoriasis: No Hx Squamous Cell: No - MUSCULOSKELETAL/RHEUMATOLOGICAL Hx Falls: No - GASTROINTESTINAL Hx Gastrointestinal Disorders: Yes Hx Crohn's Disease: No Hx Diverticulitis: Yes Hx Gastroesophageal Reflux: Yes - GENITOURINARY/GYNECOLOGICAL Hx Genitourinary Disorders: No Hx Sexually Transmitted Disorders: No - PSYCHIATRIC Hx Anxiety: Yes Hx Bipolar Disorder: Yes Hx Depression: Yes Hx Substance Use: No - SURGICAL HISTORY Hx Appendectomy: No Hx Cholecystectomy: Yes Hx Coronary Stent: No Other/Comment: neck mass excision - ANESTHESIA Hx Anesthesia: Yes Hx Anesthesia Reactions: No Hx Malignant Hyperthermia: No Meds Allergies/Adverse Reactions: Allergies Allergy/AdvReac Type Severity Reaction Status Date / Time No Known Allergies Allergy Verified 09/19/16 16:59 - Medications Medications: Current Medications Apixaban (Eliquis) 2.5 mg PO BID [facility] Last Admin: 10/19/16 10:09 Dose: 2.5 mg Guaifenesin (Mucinex La) 600 mg PO BID [facility] Last Admin: 10/19/16 10:09 Dose: 600 mg Doxycycline Hyclate 100 mg/ (Sodium Chloride) 100 mls @ 100 mls/hr IVPB Q12 [facility] PRN Reason: Protocol Last Admin: 10/19/16 10:16 Dose: 100 mls/hr Insulin Detemir (Levemir) 24 unit SC DAILY [facility] Last Admin: 10/19/16 10:09 Dose: 24 unit Insulin Human Lispro (Humalog Med) 0 units SC ACHS [facility] PRN Reason: Protocol Last Admin: 10/19/16 08:16 Dose: 3 units Lorazepam (Ativan) 0.5 mg PO HS [facility] PRN Reason: Protocol Last Admin: 10/18/16 21:17 Dose: 0.5 mg Metoprolol Tartrate (Lopressor) 50 mg PO BID [facility] Last Admin: 10/19/16 10:09 Dose: Not Given Morphine Sulfate (Morphine) 2 mg IVP Q6H PRN PRN Reason: Pain, Mild (1-3) Last Admin: 10/19/16 05:20 Dose: 2 mg Pantoprazole Sodium (Protonix Inj) 40 mg IVP 0600 [facility] Last Admin: 10/19/16 05:19 Dose: 40 mg Polyethylene Glycol (Miralax) 17 gm PO BID [facility] Last Admin: 10/19/16 10:09 Dose: 17 gm Risperidone (Risperdal Tab) 1 mg PO HS [facility] PRN Reason: Protocol Last Admin: 10/18/16 21:17 Dose: 1 mg Physical Exam - Constitutional Additional comments: SOB - Head Exam Head Exam: NORMAL INSPECTION - Eye Exam Pupil Exam: NORMAL ACCOMODATION - Neck Exam Neck exam: Positive for: Normal Inspection - Respiratory Exam Respiratory Exam: Rales - Cardiovascular Exam Cardiovascular Exam: REGULAR RHYTHM - Extremities Exam Extremities exam: Positive for: pedal edema Results - Vital Signs Recent Vital Signs: Last Vital Signs Temp 97 F L 10/19/16 09:03 Pulse 70 10/19/16 10:09 Resp 18 10/19/16 09:03 BP 90/54 L 10/19/16 10:09 Pulse Ox 90 L 10/19/16 09:03 - Labs Result Diagrams: 10/18/16 07:00 10/18/16 07:00 Labs: Laboratory Results - last 24 hr 10/18/16 10/18/16 10/18/16 07:00 15:49 21:01 POC Glucose (mg/dL) 285 H 249 H Hepatitis A IgM Ab Negative Hep Bs Antigen Negative Hep B Core IgM Ab Negative Hepatitis C Antibody Negative 10/19/16 10/19/16 07:10 11:40 POC Glucose (mg/dL) 241 H 266 H Hepatitis A IgM Ab Hep Bs Antigen Hep B Core IgM Ab Hepatitis C Antibody Assessment & Plan - Assessment and Plan (Free Text) Assessment: Cardiomypothy Anasarca H/O Subclavian DVT R/o DVT of LE Plan: Cont Current meds Transfer to Tele/ICU Start Dobutamine + IV lasix
--- NOTE | 2016-10-19 14:14 | CP.PCM.PN ---
<SAROJ FLYNN - Last Filed: 10/19/16 22:05> Subjective - Date & Time of Evaluation Date of Evaluation: 10/19/16 Time of Evaluation: 10:00 - Subjective Subjective: patient was seen this morning and examined. pt seemed very drowsy and was difficult to arouse from her sleep and get her to answer questions. pt complains of pain in her hands and legs and feels that the swelling has gotten worse. overall pt not feeling well. denies cp, palpitations, headaches, n/v. Objective - Vital Signs/Intake and Output Vital Signs (last 24 hours): Temp Pulse Resp BP Pulse Ox 97 F L 70 18 90/54 L 90 L 10/19/16 09:03 10/19/16 10:09 10/19/16 09:03 10/19/16 10:09 10/19/16 09:03 Intake and Output: 10/19/16 10/19/16 06:59 18:59 Intake Total 1360 Output Total 200 Balance 1160 - Medications Medications: Current Medications Apixaban (Eliquis) 2.5 mg PO BID [facility] Last Admin: 10/19/16 10:09 Dose: 2.5 mg Guaifenesin (Mucinex La) 600 mg PO BID [facility] Last Admin: 10/19/16 10:09 Dose: 600 mg Doxycycline Hyclate 100 mg/ (Sodium Chloride) 100 mls @ 100 mls/hr IVPB Q12 [facility] PRN Reason: Protocol Last Admin: 10/19/16 10:16 Dose: 100 mls/hr Insulin Detemir (Levemir) 24 unit SC DAILY [facility] Last Admin: 10/19/16 10:09 Dose: 24 unit Insulin Human Lispro (Humalog Med) 0 units SC ACHS [facility] PRN Reason: Protocol Last Admin: 10/19/16 08:16 Dose: 3 units Lorazepam (Ativan) 0.25 mg PO HS [facility] PRN Reason: Protocol Metoprolol Tartrate (Lopressor) 50 mg PO BID [facility] Last Admin: 10/19/16 10:09 Dose: Not Given Morphine Sulfate (Morphine) 2 mg IVP Q6H PRN PRN Reason: Pain, Mild (1-3) Last Admin: 10/19/16 05:20 Dose: 2 mg Pantoprazole Sodium (Protonix Inj) 40 mg IVP 0600 [facility] Last Admin: 10/19/16 05:19 Dose: 40 mg Polyethylene Glycol (Miralax) 17 gm PO BID [facility] Last Admin: 10/19/16 10:09 Dose: 17 gm Risperidone (Risperdal Tab) 1 mg PO HS [facility] PRN Reason: Protocol Last Admin: 10/18/16 21:17 Dose: 1 mg - Labs Labs: 10/18/16 07:00 10/18/16 07:00 PT 13.8 Seconds (9.9-11.8) H 10/18/16 07:00 INR 1.28 (0.93-1.08) H 10/18/16 07:00 APTT 29.4 Seconds (23.7-30.8) 10/18/16 07:00 - Constitutional Appears: No Acute Distress, Unkempt, Confused, Chronically Ill - Head Exam Head Exam: ATRAUMATIC, NORMAL INSPECTION, NORMOCEPHALIC - Eye Exam Eye Exam: EOMI, Normal appearance, PERRL Pupil Exam: NORMAL ACCOMODATION - ENT Exam ENT Exam: Mucous Membranes Moist, Normal Exam - Respiratory Exam Respiratory Exam: Clear to Ausculation Bilateral, NORMAL BREATHING PATTERN. absent: Accessory Muscle Use, Chest Wall Tenderness, Rales, Rhonchi, Wheezes, Respiratory Distress - Cardiovascular Exam Cardiovascular Exam: REGULAR RHYTHM, +S1, +S2. absent: Gallop, JVD, Rubs, Murmur - GI/Abdominal Exam GI & Abdominal Exam: Soft, Normal Bowel Sounds. absent: Distended - Extremities Exam Extremities Exam: Normal Inspection, Pedal Edema (+2) Additional comments: upper and lower distal extremities feel cold - Neurological Exam Neurological Exam: Altered (pt difficult to arouse, cannot assess), Awake (pt very drowsy and difficult to awake) - Skin Skin Exam: Normal Color, Warm Assessment and Plan - Assessment and Plan (Free Text) Plan: 51 y/o female with PMHx of DM2, CHF (EF 30% in 03/2016), HTN, chronic pulmonary effusion, HTN, DVT, PE, hypothyroidism, PSH of lap mithcell in 05/2016 and psych hx of schizophrenia and Bipolar disorder presented to the ED with complaints of abdominal pain x1week. Patient is on remote tele day 3, HHS improved, pt extubated and in NAD, difficult to arouse today and clearly edematous in all 4 extremities. 1. Anasarca - start IV Lasix, per Cards recs - ECHO (10/18): EF 30%, severe MR, large pleural effusion. 2. Hypotension - start dobutamine, per Cards recs - Cards consulted, recs appreciated - Pt transferred to [facility] for closer monitoring of BP - Ativan held - lopressor not given 1. Abdominal pain - hepatitis negative, legionella negative - f/u lipase and GGT ordered - ALP rising (650) - lap mitchell in May 2016 3. Severe sepsis likely 2/2 CAP vs colitis vs pancreatitis - continue Meronepem and Doxycycline day 6; at least 7 days per ID recs - blood and cultures negative for growth - sputum cultures showed yeast - Leukocytosis improving (WBC 16.8) and pt clinically improving - ID consulted, recs appreciated - Surgery was consulted- no surgical intervention needed 4. Respiratory failure - pt was extubated on 10/15 and O2Sat is maintained well on NC - monitor vitals 5. Congested cough - cont Mucinex 6. Transaminits - improving - GI consult for colitis, recs appreciated 5. UTI - repeat UA was clean, 1st one likely contaminated 7. HONK resolved - FS 200's - Levemir increased to 24u daily, cont Humalog 8. Lactic acidosis - resolved 9. Hypotension - dobutamine PRN 10. Dispo: PT recommends MITCH PTX/Eliquis Patient seen, discussed and evaluated with attending, Dr. Perry Flynn, PGY1 <Annmarie Amador - Last Filed: 10/21/16 12:22> Objective - Vital Signs/Intake and Output Vital Signs (last 24 hours): Temp Pulse Resp BP Pulse Ox 98.1 F 91 H 19 98/60 L 98 10/21/16 12:00 10/21/16 12:00 10/21/16 12:00 10/21/16 12:00 10/21/16 06:00 Intake and Output: 10/21/16 10/21/16 06:59 18:59 Intake Total 440 Output Total 100 Balance 340 - Medications Medications: Current Medications Apixaban (Eliquis) 2.5 mg PO BID [facility] Last Admin: 10/21/16 09:53 Dose: 2.5 mg Guaifenesin (Mucinex La) 600 mg PO BID [facility] Last Admin: 10/21/16 09:53 Dose: 600 mg Dobutamine HCl/Dextrose (Dobutamine/Dextrose 5% 500mg/250ml) 500 mg in 250 mls @ 12.995 mls/hr IV .[id number] PRN; Protocol; 5 MCG/KG/MIN PRN Reason: TITRATE PER PROTOCOL Insulin Detemir (Levemir) 24 unit SC DAILY [facility] Last Admin: 10/21/16 09:50 Dose: Not Given Insulin Human Lispro (Humalog Med) 0 units SC ACHS [facility] PRN Reason: Protocol Last Admin: 10/21/16 08:02 Dose: Not Given Lactobacillus Acidophilus (Bacid Acidophilus) 1 cap PO BID [facility] Last Admin: 10/21/16 10:37 Dose: Not Given Lorazepam (Ativan) 0.25 mg PO HS [facility] PRN Reason: Protocol Metoprolol Tartrate (Lopressor) 50 mg PO BID [facility] Last Admin: 10/21/16 10:35 Dose: Not Given Pantoprazole Sodium (Protonix Inj) 40 mg IVP 0600 [facility] Last Admin: 10/21/16 05:21 Dose: 40 mg Polyethylene Glycol (Miralax) 17 gm PO BID [facility] Last Admin: 10/21/16 09:55 Dose: 17 gm Risperidone (Risperdal Tab) 1 mg PO HS [facility] PRN Reason: Protocol Last Admin: 10/18/16 21:17 Dose: 1 mg - Labs Labs: 10/21/16 07:00 10/21/16 07:00 PT 12.0 Seconds (9.9-11.8) H 10/20/16 09:29 INR 1.11 (0.93-1.08) H 10/20/16 09:29 APTT 27.8 Seconds (23.7-30.8) 10/20/16 09:29 Attending/Attestation - Attestation I have personally seen and examined this patient.: Yes I have fully participated in the care of the patient.: Yes I have reviewed all pertinent clinical information, including history, physical exam and plan: Yes Notes (Text): I have seen and examined patient at bedside. Agree with the above note with the following additions/ exceptions: Briefly this is 51 year old female with history of DM-2, CHF(EF~30%) due to previous chemo and XRT for lymphoma, HTN, chronic pulmonary effusion, HTN, DVT, PE on eliquis, hypothyroidism, schizophrenia and Bipolar disorder, h/o lap cholecystectomy who presented initially with diffuse abdominal pain and confusion and found to be in HONK and code sepsis was called most likely due to HCAP vs abdominal etiology( Suspected colitis on CT scan). She is on meropenem and doxy. Patient was hypotensive today and ICU consult was obtained. She was upgraded to tele and all psych meds will be held . Will hold lasix and metoprolol. Blood and urine cultures negative. Sputum cultures showed yeast. Patient was slightly hypothermic today so will do sepsis work up. LFT's are elevated most likely due to shock liver. GI on board. She was noticed to have hyperglycemia. Levemir was adjusted. Will monitor patient clinically. PT recommended MITCH. Upon discharge patient will follow up with Dr Roman. Dr Annmarie Amador
--- NOTE | 2016-10-19 16:09 | CP.PCM.CON ---
<Alina Osborne - Last Filed: 10/19/16 16:34> History of Present Illness - History of Present Illness History of Present Illness: PGY-2 ICU consult note. 51 yo female PMH of DM2 on Insulin, CHF on Lasix, HTN, chronic pulmonary effusion, HTN, DVT, PE, hypothyroidism, schizophrenia and Bipolar disorder presented to the ED with complaints of abdominal pain found to be in severe sepsis and HONK. During hospital course patient required intubation and dobutamine. She able to be extubated. Patient reports pain secondary to worsening swelling. She also reports general fatigue. She denies chest pain, headache, fevers, n/v Review of Systems - Constitutional Constitutional: Weakness. absent: Chills, Fever, Headache - EENT Nose/Mouth/Throat: absent: Nasal Congestion, Sore Throat - Cardiovascular Cardiovascular: Edema, Leg Edema. absent: Chest Pain, Dyspnea - Respiratory Respiratory: Cough. absent: Dyspnea - Gastrointestinal Gastrointestinal: Abdominal Pain. absent: Constipation, Diarrhea, Nausea, Vomiting - Genitourinary Genitourinary: absent: Difficulty Urinating, Dysuria - Musculoskeletal Musculoskeletal: absent: Arthralgias, Back Pain, Myalgias - Integumentary Integumentary: absent: Rash, Sores - Endocrine Endocrine: Fatigue - Hematologic/Lymphatic Hematologic: absent: Easy Bruising, Lymphadenopathy Past Patient History - Infectious Disease Hx of Infectious Diseases: None - Tetanus Immunizations Tetanus Immunization: Unknown - Past Medical History & Family History Past Medical History?: Yes - Past Social History Smoking Status: Former Smoker - CARDIAC Hx Cardiac Disorders: Yes Hx Congestive Heart Failure: Yes Hx Hypertension: Yes - PULMONARY Hx Chronic Obstructive Pulmonary Disease (COPD): Yes - NEUROLOGICAL Hx Neurological Disorder: No Hx Seizures: No - HEENT Hx HEENT Problems: No - RENAL Hx Chronic Kidney Disease: No - ENDOCRINE/METABOLIC Hx Diabetes Mellitus Type 2: Yes Hx Hypothyroidism: Yes - HEMATOLOGICAL/ONCOLOGICAL Hx Blood Disorders: No - INTEGUMENTARY Hx Dermatological Problems: No Hx Basil Cell: No Hx Eczema: No Hx Melanoma: No Hx Psoriasis: No Hx Squamous Cell: No - MUSCULOSKELETAL/RHEUMATOLOGICAL Hx Falls: No - GASTROINTESTINAL Hx Gastrointestinal Disorders: Yes Hx Crohn's Disease: No Hx Diverticulitis: Yes Hx Gastroesophageal Reflux: Yes - GENITOURINARY/GYNECOLOGICAL Hx Genitourinary Disorders: No Hx Sexually Transmitted Disorders: No - PSYCHIATRIC Hx Anxiety: Yes Hx Bipolar Disorder: Yes Hx Depression: Yes Hx Substance Use: No - SURGICAL HISTORY Hx Appendectomy: No Hx Cholecystectomy: Yes Hx Coronary Stent: No Other/Comment: neck mass excision - ANESTHESIA Hx Anesthesia: Yes Hx Anesthesia Reactions: No Hx Malignant Hyperthermia: No Meds Allergies/Adverse Reactions: Allergies Allergy/AdvReac Type Severity Reaction Status Date / Time No Known Allergies Allergy Verified 09/19/16 16:59 - Medications Medications: Current Medications Apixaban (Eliquis) 2.5 mg PO BID [facility] Last Admin: 10/19/16 10:09 Dose: 2.5 mg Guaifenesin (Mucinex La) 600 mg PO BID [facility] Last Admin: 10/19/16 10:09 Dose: 600 mg Doxycycline Hyclate 100 mg/ (Sodium Chloride) 100 mls @ 100 mls/hr IVPB Q12 [facility] PRN Reason: Protocol Last Admin: 10/19/16 10:16 Dose: 100 mls/hr Insulin Detemir (Levemir) 24 unit SC DAILY [facility] Last Admin: 10/19/16 10:09 Dose: 24 unit Insulin Human Lispro (Humalog Med) 0 units SC ACHS [facility] PRN Reason: Protocol Last Admin: 10/19/16 08:16 Dose: 3 units Lorazepam (Ativan) 0.25 mg PO HS [facility] PRN Reason: Protocol Metoprolol Tartrate (Lopressor) 50 mg PO BID [facility] Last Admin: 10/19/16 10:09 Dose: Not Given Morphine Sulfate (Morphine) 2 mg IVP Q6H PRN PRN Reason: Pain, Mild (1-3) Last Admin: 10/19/16 05:20 Dose: 2 mg Pantoprazole Sodium (Protonix Inj) 40 mg IVP 0600 [facility] Last Admin: 10/19/16 05:19 Dose: 40 mg Polyethylene Glycol (Miralax) 17 gm PO BID [facility] Last Admin: 10/19/16 10:09 Dose: 17 gm Risperidone (Risperdal Tab) 1 mg PO HS [facility] PRN Reason: Protocol Last Admin: 10/18/16 21:17 Dose: 1 mg Physical Exam - Constitutional Appears: Well, No Acute Distress - Head Exam Head Exam: ATRAUMATIC, NORMOCEPHALIC - Eye Exam Eye Exam: Normal appearance - ENT Exam ENT Exam: Mucous Membranes Moist - Respiratory Exam Respiratory Exam: Clear to Auscultation Bilateral, NORMAL BREATHING PATTERN. absent: Rales, Rhonchi, Wheezes, Respiratory Distress, Stridor - Cardiovascular Exam Cardiovascular Exam: REGULAR RHYTHM, +S1, +S2. absent: Tachycardia, Systolic Murmur - GI/Abdominal Exam GI & Abdominal Exam: Normal Bowel Sounds, Soft. absent: Distended, Firm - Extremities Exam Extremities exam: Positive for: pedal edema. Negative for: tenderness Additional comments: pitting edema in all 4 extremities - Neurological Exam Neurological exam: Alert, Oriented x3 - Skin Skin Exam: Dry, Intact, Normal Color, Warm Results - Vital Signs Recent Vital Signs: Last Vital Signs Temp 97 F L 10/19/16 09:03 Pulse 70 10/19/16 10:09 Resp 18 10/19/16 09:03 BP 90/54 L 10/19/16 10:09 Pulse Ox 90 L 10/19/16 09:03 - Labs Result Diagrams: 10/18/16 07:00 10/18/16 07:00 Labs: Laboratory Results - last 24 hr 10/18/16 10/18/16 10/19/16 15:49 21:01 07:10 POC Glucose (mg/dL) 285 H 249 H 241 H 10/19/16 11:40 POC Glucose (mg/dL) 266 H Assessment & Plan - Assessment and Plan (Free Text) Assessment: 51 yo female with PMH of DM2, CHF (EF 30% in 03/2016), HTN, chronic pulmonary effusion, HTN, DVT, PE, hypothyroidism, PSH of lap mitchell in 05/2016 and psych hx of schizophrenia and Bipolar disorder initially presented with severe sepsis, ICU is being reconsulted for evaluation for hypotension and edema. Plan: Neuro: - patient is alert and oriented - somnolent this morning, will hold ativan and risperdone cardiovascular - mildly hypotensive, at baseline patient has low BP - Echo in mar 2016 showed EF 30% - repeat echo, pending read - peripheral edema - dobutamine may be beneficial if patients fluid status is wet. pulm - Respiratory failure, pt was extubated on 10/15 - O2Sat is maintained well on NC - cont Mucinex for congested cough GI - hepatitis panel negative - ALP trending up - Transaminits trending down - lap mitchell in May 2016 - GI follow ID - Severe sepsis likely 2/2 CAP vs colitis vs pancreatitis - afebrile with improving leukocytosis - continue Meronepem and Doxycycline - blood and cultures negative - sputum cultures showed yeast - ID following Renal - cr and BUN trending up - continues to have urine output - cont to monitor Endo - HONK resolved - blood glucose stable - cont insulin regimen <Yaron Amador MD - Last Filed: 10/19/16 17:39> Meds - Medications Medications: Current Medications Apixaban (Eliquis) 2.5 mg PO BID [facility] Last Admin: 10/19/16 10:09 Dose: 2.5 mg Guaifenesin (Mucinex La) 600 mg PO BID [facility] Last Admin: 10/19/16 10:09 Dose: 600 mg Doxycycline Hyclate 100 mg/ (Sodium Chloride) 100 mls @ 100 mls/hr IVPB Q12 [facility] PRN Reason: Protocol Last Admin: 10/19/16 10:16 Dose: 100 mls/hr Insulin Detemir (Levemir) 24 unit SC DAILY [facility] Last Admin: 10/19/16 10:09 Dose: 24 unit Insulin Human Lispro (Humalog Med) 0 units SC ACHS [facility] PRN Reason: Protocol Last Admin: 10/19/16 08:16 Dose: 3 units Lorazepam (Ativan) 0.25 mg PO HS [facility] PRN Reason: Protocol Metoprolol Tartrate (Lopressor) 50 mg PO BID [facility] Last Admin: 10/19/16 10:09 Dose: Not Given Pantoprazole Sodium (Protonix Inj) 40 mg IVP 0600 [facility] Last Admin: 10/19/16 05:19 Dose: 40 mg Polyethylene Glycol (Miralax) 17 gm PO BID [facility] Last Admin: 10/19/16 10:09 Dose: 17 gm Risperidone (Risperdal Tab) 1 mg PO HS [facility] PRN Reason: Protocol Last Admin: 10/18/16 21:17 Dose: 1 mg Results - Vital Signs Recent Vital Signs: Last Vital Signs Temp 97 F L 10/19/16 09:03 Pulse 110 H 10/19/16 17:34 Resp 18 10/19/16 09:03 BP 95/66 L 10/19/16 17:34 Pulse Ox 90 L 10/19/16 09:03 - Labs Result Diagrams: 10/18/16 07:00 10/18/16 07:00 Labs: Laboratory Results - last 24 hr 07/11/17 07/12/17 07/12/17 21:01 07:10 11:40 POC Glucose (mg/dL) 249 H 241 H 266 H Urine Color Urine Appearance Urine pH Ur Specific Sullivan Urine Protein Urine Glucose (UA) Urine Ketones Urine Blood Urine Nitrate Urine Bilirubin Urine Urobilinogen Ur Leukocyte Esterase Urine RBC Urine WBC Ur Epithelial Cells Urine Bacteria Urine Other 10/19/16 10/19/16 15:51 16:35 POC Glucose (mg/dL) 258 H Urine Color Yellow Urine Appearance Sl cloudy Urine pH 6.0 Ur Specific Sullivan >= 1.030 Urine Protein 30 H Urine Glucose (UA) Negative Urine Ketones Negative Urine Blood Small H Urine Nitrate Negative Urine Bilirubin Negative Urine Urobilinogen 0.2 Ur Leukocyte Esterase Trace H Urine RBC 5 - 10 Urine WBC 20 - 25 Ur Epithelial Cells 6 - 8 Urine Bacteria Many Urine Other Uyeast Attending/Attestation - Attestation I have personally seen and examined this patient.: Yes I have fully participated in the care of the patient.: Yes I have reviewed all pertinent clinical information: Yes Notes (Text): 10/19/16 17:35 51 y/o F I was consulted for worsening mental status and borderline BP Previously in the ICU but currently on the medical floors. The patient was see, able to be arroused and is alert. SBP 85-95 at baseline Does have cardiomyopathy w/ reduced EF on previous visit. Will need repeat ECHO Ultimately not SOB , but does have anasarca w/o new SOB. Would not need to diurese emergently at this point unless SOB worsens or if Urine output worsens. At that point inotropes can be used in conjuction . No emergent need for ICU currently Would hold many of the anxiolytics and depressant medications due to ams. cc time 45 min
[2016-10-19 16:52] LABS: URINE BILIRUBIN NEGATIVE (NEGATIVE); URINE BLOOD SMALL (NEGATIVE); URINE GLUCOSE (UA) NEGATIVE (NEGATIVE); URINE LEUKOCYTE ESTERASE TRACE Leu/uL (NEGATIVE); URINE NITRATE NEGATIVE (NEGATIVE); URINE PROTEIN 30 mg/dL (<30 mg/dL); URINE UROBILINOGEN 0.2 E.U./dL (<1 E.U./dL)
--- NOTE | 2016-10-19 16:58 | CARD ---
APPROVED REPORT EXAM: Two-dimensional and M-mode echocardiogram with Doppler and color Doppler. INDICATION 2D DIMENSIONS Left Atrium (2D)3.3 (1.6-4.0cm)IVSd1.0 (0.7-1.1cm) LVDd5.5 (3.9-5.9cm)PWd0.9 (0.7-1.1cm) LVDs4.7 (2.5-4.0cm)FS (%) 14.4 % LVEF (%)30.6 (>50%) M-Mode DIMENSIONS Aortic Root3.00 (2.2-3.7cm)Aortic Cusp Exc.1.80 (1.5-2.0cm) Aortic Valve AoV Peak Lqaldxaa38.9cm/Eduardo Peak GR.3mmHgAI P 1/2 [id number] Mitral Valve MV E Isxlgqzb245.0cm/sMV E Peak Gr.52mmHg TDI Lateral E' Peak V5.85cm/sMedial E' Peak V3.80cm/sE/Lateral E'21.4 E/Medial E'32.9 Tricuspid Valve TR Peak Itevkcik711tt/sRAP [id number] Peak Gr.36mmHg [id number] LEFT VENTRICLE The Left Ventricle is borderline dilated. There is borderline to mild concentric left ventricular hypertrophy. The systolic function is moderately to severely impaired.EF-30-35% There is global hypokinesis of the left ventricle. The left ventricular diastolic function is normal. No left ventricle thrombus noted on this study. There is no ventricular septal defect visualized. There is no left ventricular aneurysm. There is no mass noted in the left ventricle. RIGHT VENTRICLE The right ventricle is normal size. There is normal right ventricular wall thickness. The right ventricular systolic function is normal. ATRIA The left atrium is mildly dilated. The right atrium size is normal. The interatrial septum is intact with no evidence for an atrial septal defect. AORTIC VALVE The aortic valve is thickened but opens well. There is trace to mild aortic regurgitation. There is no aortic valvular stenosis. There is no aortic valvular vegetation. MITRAL VALVE The mitral valve is thickened but opens well. Mitral regurgitation is severe. There is no mitral valve stenosis. There is no evidence of mitral valve prolapse. TRICUSPID VALVE The tricuspid valve leaflets are thickened , but open well. There is mild to moderate tricuspid regurgitation.RVSP-46 mmof hg/. There is no tricuspid valve stenosis. There is no tricuspid valve prolapse or vegetation. PULMONIC VALVE The pulmonary valve is normal in structure. There is mild pulmonic valvular regurgitation. There is no pulmonic valvular stenosis. GREAT VESSELS The aortic root is normal in size. The ascending aorta is normal in size. The pulmonary artery is normal. The IVC is dilated. PERICARDIAL EFFUSION There is large left pleural effusion. There is no pericardial effusion. <Conclusion> The Left Ventricle is borderline dilated. The systolic function is moderately to severely impaired.EF-30-35% There is trace to mild aortic regurgitation. Mitral regurgitation is severe. There is mild to moderate tricuspid regurgitation.RVSP-46 mmof hg/. The IVC is dilated. There is large left pleural effusion. There is no pericardial effusion. No Vegetation or thrombus noted. TDS. Pt was supine at the time of study, May consider MUGA to assess LVEF and RVEf%
--- NOTE | 2016-10-19 17:01 | RAD ---
HISTORY: SOB COMPARISON: Comparison chest 10/15/2016 FINDINGS: LUNGS: Interval removal ETT and NGT. Poor inspiration Persistent mild the central pulmonary vascular congestive changes with bilateral lower lobe alveolar-type infiltrates and bilateral effusions. PLEURA: As above. No apparent pneumothorax. CARDIOVASCULAR: Heart size is probably enlarged though somewhat difficult to assess due to silhouetting of the inferior cardiac borders due to poor inspiration. OSSEOUS STRUCTURES: No significant abnormalities. VISUALIZED UPPER ABDOMEN: Normal. OTHER FINDINGS: None. IMPRESSION: Mild pulmonary vascular congestive changes with bilateral lower lobe alveolar-type infiltrates and bilateral effusions. Interval removal of ETT and NGT.
[2016-10-19 17:04] LABS: URINE APPEARANCE SL CLOUDY (CLEAR); URINE COLOR YELLOW (YELLOW)
[2016-10-19 17:10] LABS: URINE BACTERIA MANY (NEG); URINE WBC 20 - 25 /hpf (0-6)
[2016-10-20] MEDS: Insulin Lispro (humaLOG) MEDIUM Coverage SC SCH ×4 (07:59→21:57)
[2016-10-20] MEDS: guaiFENesin 600 mg ER Tab PO SCH ×2 (09:29→17:11)
[2016-10-20] MEDS: POLYETHYLENE GLYCOL 3350 17 GM/Dose PACKET PO SCH ×2 (09:29→17:11)
[2016-10-20] MEDS: Insulin Detemir 100 units/ml Vial (Levemir) SC SCH (09:29)
[2016-10-20 09:34] LABS: BASO # 0.01 K/mm3 (0.0-2.0); BASO % 0.1 % (0.0-3.0); EOS # 0.1 (0.0-0.7); EOS % 0.8 % (1.5-5.0); GRAN # 11.48 (1.4-6.5); GRAN % 74.6 % (50.0-68.0); HEMOGLOBIN 11.1 gm/dL (12.0-16.0); LYMPH # 2.5 (1.2-3.4); LYMPH % 16.2 % (22.0-35.0); MEAN CELL VOLUME 76.9 fL (80.0-105.0); MEAN CORPUSCULAR HEMOGLOBIN 25.4 pg (25.0-35.0); MEAN PLATELET VOLUME 10.6 fl (7.0-11.0); MONO # 1.3 (0.1-0.6); MONO % 8.3 % (1.0-6.0); PLATELET COUNT 443 10^3/uL (120.0-450.0); RBC 4.37 10^6/uL (3.5-6.1); RED CELL DISTRIBUTION WIDTH 20.6 % (11.5-14.5); WHITE BLOOD COUNT 15.4 10^3/ul (4.5-11.0)
[2016-10-20 09:43] LABS: ALB/GLOB RATIO 0.9 (1.1-1.8); CALCIUM 8.7 mg/dL (8.4-10.5); INR 1.11 (0.93-1.08); PARTIAL THROMBOPLASTIN TIME 27.8 Seconds (23.7-30.8)
[2016-10-20] MEDS: Lactobacillus Acidophilus 500 MU Cap PO SCH ×2 (11:48→17:11)
--- NOTE | 2016-10-20 13:51 | CP.PCM.PN ---
<SAROJ FLYNN - Last Filed: 10/20/16 23:18> Subjective - Date & Time of Evaluation Date of Evaluation: 10/20/16 Time of Evaluation: 10:00 - Subjective Subjective: patient was seen and examined at bedside. patient continues to complain of abdominal pain, diarrhea, and painful extremities. denies chest pain, n/v, headaches, palpitations, fevers or night sweats. Objective - Vital Signs/Intake and Output Vital Signs (last 24 hours): Temp Pulse Resp BP Pulse Ox 97 F L 93 H 16 86/56 L 98 10/20/16 12:00 10/20/16 12:00 10/20/16 12:00 10/20/16 12:00 10/19/16 16:30 Intake and Output: 10/20/16 10/20/16 06:59 18:59 Intake Total 240 Output Total 200 Balance 40 - Medications Medications: Current Medications Apixaban (Eliquis) 2.5 mg PO BID [facility] Last Admin: 10/20/16 09:29 Dose: 2.5 mg Guaifenesin (Mucinex La) 600 mg PO BID [facility] Last Admin: 10/20/16 09:29 Dose: 600 mg Insulin Detemir (Levemir) 24 unit SC DAILY [facility] Last Admin: 10/20/16 09:29 Dose: 24 unit Insulin Human Lispro (Humalog Med) 0 units SC ACHS [facility] PRN Reason: Protocol Last Admin: 10/20/16 11:54 Dose: 8 units Lactobacillus Acidophilus (Bacid Acidophilus) 1 cap PO BID [facility] Last Admin: 10/20/16 11:48 Dose: 1 cap Lorazepam (Ativan) 0.25 mg PO [facility] PRN Reason: Protocol Metoprolol Tartrate (Lopressor) 50 mg PO BID [facility] Last Admin: 10/20/16 09:29 Dose: 50 mg Pantoprazole Sodium (Protonix Inj) 40 mg IVP 0600 [facility] Last Admin: 10/20/16 05:41 Dose: 40 mg Polyethylene Glycol (Miralax) 17 gm PO BID [facility] Last Admin: 10/20/16 09:29 Dose: 17 gm Risperidone (Risperdal Tab) 1 mg PO HS [facility] PRN Reason: Protocol Last Admin: 10/18/16 21:17 Dose: 1 mg - Labs Labs: 10/20/16 09:29 10/20/16 09:29 PT 12.0 Seconds (9.9-11.8) H 10/20/16 09:29 INR 1.11 (0.93-1.08) H 10/20/16 09:29 APTT 27.8 Seconds (23.7-30.8) 10/20/16 09:29 - Additional Findings Additional findings: - Constitutional Appears: No Acute Distress, Unkempt, Confused, Chronically Ill - Head Exam Head Exam: ATRAUMATIC, NORMAL INSPECTION, NORMOCEPHALIC - Eye Exam Eye Exam: EOMI, Normal appearance, PERRL Pupil Exam: NORMAL ACCOMODATION - ENT Exam ENT Exam: Mucous Membranes Moist, Normal Exam - Respiratory Exam Respiratory Exam: NORMAL BREATHING PATTERN, Rales. absent: Accessory Muscle Use , Chest Wall Tenderness, Rhonchi, Wheezes, Respiratory Distress - Cardiovascular Exam Cardiovascular Exam: REGULAR RHYTHM, +S1, +S2. absent: Gallop, JVD, Rubs, Murmur - GI/Abdominal Exam GI & Abdominal Exam: Soft, Normal Bowel Sounds. absent: Distended - Extremities Exam Extremities Exam: Normal Inspection, Pedal Edema (+2) Additional comments: upper and lower distal extremities feel cold and edematous, improved from yesterday - Neurological Exam Neurological Exam: Awake - Skin Skin Exam: Normal Color, Warm Assessment and Plan - Assessment and Plan (Free Text) Plan: 51 y/o female with PMHx of DM2, CHF (EF 30% in 03/2016), HTN, chronic pulmonary effusion, HTN, DVT, PE, hypothyroidism, PSH of lap mitchell in 05/2016 and psych hx of schizophrenia and Bipolar disorder presented to the ED with complaints of abdominal pain x1week. Patient is on tele day 2, HHS improved, pt extubated and in NAD, decreased edema in all 4 extremities. Anasarca - Lasix 20mg ordered, per cards recs (held due to hypotension) - ECHO (10/18): EF 30%, severe MR, large pleural effusion - Pulm consulted, recommend: no need to diurese emergently unless SOB worsens or if Urine output worsens; inotropes can be used in conjuction Hypotension - considering dobutamine, per cards recs - Cards consulted, recs appreciated - Pt transferred to tele for closer monitoring of BP AMS - Ativan and Risperidone held - improving, pt is more responsive today Hypothermia - Temp around 97F, with lowest being 96.5 on 10/19 - extremities feel cold - consider warm blankets Abdominal pain - hepatitis negative, legionella negative - re-ordered lipase and GGT ordered - ALP rising (882) - Hx lap mitchell in May 2016 DM2, HONK resolved - FS 200's-393 - Levemir increased to 24u daily, cont Humalog - monitor closely Diarrhea - started on Lactobacillus Acidophilus - c diff - pt on miralax Severe sepsis likely 2/2 CAP vs colitis vs pancreatitis - pt received 7 days of Doxycycline and 6 days of Meronepem, per ID recs - blood and cultures negative for growth - sputum cultures showed yeast - Leukocytosis improving (WBC 15.4) and pt clinically improving - ID consulted, recs appreciated - Surgery was consulted- no surgical intervention needed Respiratory failure - pt was extubated on 10/15 and O2Sat is maintained well on NC - monitor vitals Congested cough - cont Mucinex Transaminits - improving - GI consult for colitis, recs appreciated UTI - repeat UA was clean, 1st one likely contaminated Lactic acidosis - resolved Dispo: PT recommends MITCH PTX/Eliquis Patient seen, discussed and evaluated with attending, Dr. Perry Flynn, PGY1 <Annmarie Amador - Last Filed: 10/21/16 12:23> Objective - Vital Signs/Intake and Output Vital Signs (last 24 hours): Temp Pulse Resp BP Pulse Ox 98.1 F 91 H 19 98/60 L 98 10/21/16 12:00 10/21/16 12:00 10/21/16 12:00 10/21/16 12:00 10/21/16 06:00 Intake and Output: 10/21/16 10/21/16 06:59 18:59 Intake Total 440 Output Total 100 Balance 340 - Medications Medications: Current Medications Apixaban (Eliquis) 2.5 mg PO BID [facility] Last Admin: 10/21/16 09:53 Dose: 2.5 mg Guaifenesin (Mucinex La) 600 mg PO BID [facility] Last Admin: 10/21/16 09:53 Dose: 600 mg Dobutamine HCl/Dextrose (Dobutamine/Dextrose 5% 500mg/250ml) 500 mg in 250 mls @ 12.995 mls/hr IV .[id number] PRN; Protocol; 5 MCG/KG/MIN PRN Reason: TITRATE PER PROTOCOL Insulin Detemir (Levemir) 24 unit SC DAILY [facility] Last Admin: 10/21/16 09:50 Dose: Not Given Insulin Human Lispro (Humalog Med) 0 units SC ACHS [facility] PRN Reason: Protocol Last Admin: 10/21/16 08:02 Dose: Not Given Lactobacillus Acidophilus (Bacid Acidophilus) 1 cap PO BID [facility] Last Admin: 10/21/16 10:37 Dose: Not Given Lorazepam (Ativan) 0.25 mg PO HS [facility] PRN Reason: Protocol Metoprolol Tartrate (Lopressor) 50 mg PO BID [facility] Last Admin: 10/21/16 10:35 Dose: Not Given Pantoprazole Sodium (Protonix Inj) 40 mg IVP 0600 [facility] Last Admin: 10/21/16 05:21 Dose: 40 mg Polyethylene Glycol (Miralax) 17 gm PO BID [facility] Last Admin: 10/21/16 09:55 Dose: 17 gm Risperidone (Risperdal Tab) 1 mg PO HS [facility] PRN Reason: Protocol Last Admin: 10/18/16 21:17 Dose: 1 mg - Labs Labs: 10/21/16 07:00 10/21/16 07:00 PT 12.0 Seconds (9.9-11.8) H 10/20/16 09:29 INR 1.11 (0.93-1.08) H 10/20/16 09:29 APTT 27.8 Seconds (23.7-30.8) 10/20/16 09:29 Attending/Attestation - Attestation I have personally seen and examined this patient.: Yes I have fully participated in the care of the patient.: Yes I have reviewed all pertinent clinical information, including history, physical exam and plan: Yes Notes (Text): I have seen and examined patient at bedside. Agree with the above note with the following additions/ exceptions: Briefly this is 51 year old female with history of DM-2, CHF(EF~30%) due to previous chemo and XRT for lymphoma, HTN, chronic pulmonary effusion, HTN, DVT, PE on eliquis, hypothyroidism, schizophrenia and Bipolar disorder, h/o lap cholecystectomy who presented initially with diffuse abdominal pain and confusion and found to be in HONK and code sepsis was called most likely due to HCAP vs abdominal etiology( Suspected colitis on CT scan). She is on meropenem and doxy. Patient was hypotensive today and ICU consult was obtained. She was upgraded to tele and all psych meds will be held . Will hold lasix and metoprolol. Blood and urine cultures negative. Sputum cultures showed yeast. Patient was slightly hypothermic today so will do sepsis work up. LFT's are elevated most likely due to shock liver. GI on board. She was noticed to have hyperglycemia. Levemir was adjusted. Will monitor patient clinically. PT recommended MITCH. Upon discharge patient will follow up with Dr Roman. Dr Annmarie Amador
[2016-10-20] MEDS ORDERED: DOBUTamine 500mg/250ml D5W 500 MG/250 ML BAG IV PRN (15:30)
[2016-10-20 19:36] LABS: GAMMA GLUTAMYL TRANSPEPTIDASE 358 U/L (8-78); LIPASE 141 U/L (23-300)
[2016-10-21 02:04] LABS: B-TYPE NATRIURETIC PEPTIDE 16600 pg/mL (0-450)
[2016-10-21 02:09] LABS: TROPONIN I < 0.01 ng/mL
[2016-10-21 02:29] LABS: ARTERIAL BLOOD GAS PH 7.34 (7.35-7.45)
[2016-10-21 02:30] LABS: ARTERIAL BLOOD GAS HEMOGLOBIN 10.8 g/dL (11.7-17.4); ARTERIAL BLOOD GAS O2 SAT 98.9 % (95-98); ARTERIAL BLOOD GAS TCO2 8.6 mmol.L (22-28)
[2016-10-21 02:32] LABS: ARTERIAL BLOOD GAS HCO3 8.1 mmol/L (21-28); ARTERIAL BLOOD GAS PCO2 15 mm/Hg (35-45)
[2016-10-21] MEDS ORDERED: Sodium Chloride 0.9% 500 ML IV SCH ×3 (04:56→07:44)
[2016-10-21 07:39] LABS: HEMOGLOBIN 11.9 gm/dL (12.0-16.0); MEAN CELL VOLUME 77.7 fL (80.0-105.0); MEAN CORPUSCULAR HEMOGLOBIN 25.8 pg (25.0-35.0); MEAN CORPUSCULAR HGB CONC 33.1 g/dl (31.0-37.0); MEAN PLATELET VOLUME 10.7 fl (7.0-11.0); PLATELET COUNT 426 10^3/uL (120.0-450.0); RBC 4.62 10^6/uL (3.5-6.1); RED CELL DISTRIBUTION WIDTH 20.7 % (11.5-14.5); WHITE BLOOD COUNT 19.2 10^3/ul (4.5-11.0)
[2016-10-21 07:42] LABS: ALB/GLOB RATIO 0.9 (1.1-1.8); CALCIUM 8.4 mg/dL (8.4-10.5)
[2016-10-21] MEDS ORDERED: Sodium Chloride 0.9% 1,000 ML IV SCH (08:00)
[2016-10-21] MEDS: Insulin Lispro (humaLOG) MEDIUM Coverage SC SCH ×4 (08:02→22:36)
[2016-10-21 08:40] LABS: ATYPICAL LYMPHOCYTE 1 % (0.0-0.0); BAND 3 % (0-2); LYMPHOCYTE 16 % (22.0-35.0); MONOCYTE 4 % (1.0-6.0); NEUTROPHIL 76 % (50.0-70.0); NUCLEATED RED BLOOD CELL 1 %; PLATELET ESTIMATE HIGH (NORMAL); POIKILOCYTOSIS 1+; POLYCHROMASIA SLIGHT
[2016-10-21 08:41] LABS: ANISOCYTOSIS 1+; LARGE PLATELETS PRESENT; OVALOCYTES SLIGHT; TARGET CELLS SLIGHT
[2016-10-21] MEDS ORDERED: Sod Polystyrene Sulf 15 gm/60 ml Oral Susp PO ONE (08:55)
--- NOTE | 2016-10-21 08:59 | RAD ---
HISTORY: sob COMPARISON: 10/19/2016 FINDINGS: LUNGS: Bibasilar infiltrates and small effusions PLEURA: No significant pleural effusion identified, no pneumothorax apparent. CARDIOVASCULAR: Mild cardiomegaly OSSEOUS STRUCTURES: No significant abnormalities. VISUALIZED UPPER ABDOMEN: Normal. OTHER FINDINGS: None. IMPRESSION: Bibasilar infiltrates and small effusions
[2016-10-21] MEDS ORDERED: Insulin Regular 1 UNITS/0.01 ML ML SC ONE (09:04)
[2016-10-21] MEDS ORDERED: Dextrose 50% SYRINGE Inj (50 ml) IVP ONE (09:08)
--- NOTE | 2016-10-21 09:15 | PN ---
DATE: 10/20/2016 SUBJECTIVE: The patient is in bed, in no acute distress, was seen earlier this morning in room 260, bed 2. No fevers and no chills. PHYSICAL EXAMINATION VITAL SIGNS: Temperature 97, blood pressure 101/60, respiratory rate of 21, heart rate of 102. HEENT: Unremarkable. NECK: Supple. CARDIOPULMONARY: Normal S1 and S2. LUNGS: Decrease breath sounds. ABDOMEN: Soft, nontender. LABORATORY DATA: Reviewed. The patient's white count 15,400, hemoglobin of 11, platelets of 443. Coagulation is noted. Chemistries are noted. BUN 56, creatinine of 1.3. Procalcitonin is noted to be negative x2. Urinalysis is noted. Pleural fluid studies are noted with an LDH of 64, protein is less than 3. Urine for Legionella antigen is negative. Hepatitis profile is negative. Microbiology reveals beta hemolytic strep, and blood cultures are negative, and sputum culture has yeast. REVIEW OF ORDERS: Review of the patient to be off of antibiotics. ASSESSMENT AND PLAN: She is a 51-year-old female with severe sepsis, status post hypoxic ventilatory dependent respiratory failure due to bilateral lower lobe healthcare-associated pneumonia with negative procalcitonin x2, negative urine Legionella antigen * *, also with hyperosmolar state with acute pancreatitis, and the patient with history of healthcare-associated pneumonia, completed 6 days of doxycycline and meropenem and currently off of antibiotics. Pleural fluid cytology is noted negative for any malignant cells. The patient also had a chest x-ray yesterday and mild vascular congestion. Dr. Amador's note is reviewed, which states the patient has hypertension, deep venous thrombosis, pulmonary embolism, hypothyroidism, schizophrenia, bipolar, diabetes, congestive heart failure, hypertension, and chronic pulmonary effusion. The patient is at risk for developing nosocomial infections, currently off of antibiotics. The patient also had abdominal ultrasound on 10/14/2016, and she was status post cholecystectomy. We will follow with you. Yehuda Valentino MD
--- NOTE | 2016-10-21 09:25 | CARD ---
APPROVED REPORT EKG Measurement Heart [id number] <Conclusion> Normal sinus rhythm Left bundle branch block Abnormal ECG
--- NOTE | 2016-10-21 09:33 | CP.PCM.CON ---
History of Present Illness - History of Present Illness History of Present Illness: Palliative consult requested by Dr Xavier Amador Reason: Goals of care/ advance care plan 51 year old female who presented to ED with abdominal pain. Found to be in sepsis and hyperglycemic hyperosmolar nonketotic coma. She was subsequently intubated and required dobutamine drip. She has since been extubated, mental status improved and transferred to telemetry PMHx: DM, DKA, CHF, CAD, EF ,HTN, COPD,chronic pulmonary effusions,CKD, DVT, PE , bipolar disorder,schizophrenia, hypothyroidism,NHL. Family History:Non contributory Social History:Former smoker, occasional alcohol use, no illicit drug use. Lives alone. Advance Care Planning: The patient does not have an Advanced Directive. Her sister-n law, Rona [phone] is next of kin. Review of Systems - Constitutional Constitutional: Weight Gain, Weakness - EENT Additional comments: negative - Breasts Additional comments: negative - Cardiovascular Cardiovascular: Dyspnea on Exertion, Leg Edema - Respiratory Respiratory: Cough, Dyspnea on Exertion - Genitourinary Additional comments: negative - Musculoskeletal Musculoskeletal: Muscle Weakness Past Patient History - Infectious Disease Hx of Infectious Diseases: None - Tetanus Immunizations Tetanus Immunization: Unknown - Past Medical History & Family History Past Medical History?: Yes - Past Social History Smoking Status: Former Smoker - CARDIAC Hx Cardiac Disorders: Yes Hx Congestive Heart Failure: Yes Hx Hypertension: Yes - PULMONARY Hx Chronic Obstructive Pulmonary Disease (COPD): Yes - NEUROLOGICAL Hx Neurological Disorder: No Hx Seizures: No - HEENT Hx HEENT Problems: No - RENAL Hx Chronic Kidney Disease: No - ENDOCRINE/METABOLIC Hx Diabetes Mellitus Type 2: Yes Hx Hypothyroidism: Yes - HEMATOLOGICAL/ONCOLOGICAL Hx Blood Disorders: No - INTEGUMENTARY Hx Dermatological Problems: No Hx Basil Cell: No Hx Eczema: No Hx Melanoma: No Hx Psoriasis: No Hx Squamous Cell: No - MUSCULOSKELETAL/RHEUMATOLOGICAL Hx Falls: No - GASTROINTESTINAL Hx Gastrointestinal Disorders: Yes Hx Crohn's Disease: No Hx Diverticulitis: Yes Hx Gastroesophageal Reflux: Yes - GENITOURINARY/GYNECOLOGICAL Hx Genitourinary Disorders: No Hx Sexually Transmitted Disorders: No - PSYCHIATRIC Hx Anxiety: Yes Hx Bipolar Disorder: Yes Hx Depression: Yes Hx Substance Use: No - SURGICAL HISTORY Hx Appendectomy: No Hx Cholecystectomy: Yes Hx Coronary Stent: No Other/Comment: neck mass excision - ANESTHESIA Hx Anesthesia: Yes Hx Anesthesia Reactions: No Hx Malignant Hyperthermia: No Meds Allergies/Adverse Reactions: Allergies Allergy/AdvReac Type Severity Reaction Status Date / Time No Known Allergies Allergy Verified 09/19/16 16:59 - Medications Medications: Current Medications Apixaban (Eliquis) 2.5 mg PO BID [facility] Last Admin: 10/20/16 17:11 Dose: 2.5 mg Guaifenesin (Mucinex La) 600 mg PO BID [facility] Last Admin: 10/20/16 17:11 Dose: 600 mg Dobutamine HCl/Dextrose (Dobutamine/Dextrose 5% 500mg/250ml) 500 mg in 250 mls @ 12.995 mls/hr IV .[id number] PRN; Protocol; 5 MCG/KG/MIN PRN Reason: TITRATE PER PROTOCOL Sodium Chloride (Sodium Chloride 0.9%) 1,000 mls @ 75 mls/hr IV .[id number] [facility] Last Admin: 10/21/16 08:33 Dose: 75 mls/hr Insulin Detemir (Levemir) 24 unit SC DAILY [facility] Last Admin: 10/20/16 09:29 Dose: 24 unit Insulin Human Lispro (Humalog Med) 0 units SC ACHS [facility] PRN Reason: Protocol Last Admin: 10/21/16 08:02 Dose: Not Given Lactobacillus Acidophilus (Bacid Acidophilus) 1 cap PO BID [facility] Last Admin: 10/20/16 17:11 Dose: 1 cap Lorazepam (Ativan) 0.25 mg PO HS [facility] PRN Reason: Protocol Metoprolol Tartrate (Lopressor) 50 mg PO BID [facility] Last Admin: 10/20/16 17:11 Dose: 50 mg Pantoprazole Sodium (Protonix Inj) 40 mg IVP 0600 [facility] Last Admin: 10/21/16 05:21 Dose: 40 mg Polyethylene Glycol (Miralax) 17 gm PO BID [facility] Last Admin: 10/20/16 17:11 Dose: 17 gm Risperidone (Risperdal Tab) 1 mg PO HS [facility] PRN Reason: Protocol Last Admin: 10/18/16 21:17 Dose: 1 mg Results - Vital Signs Recent Vital Signs: Last Vital Signs Temp 97.1 F L 10/21/16 06:00 Pulse 85 10/21/16 06:00 Resp 20 10/21/16 06:00 BP 78/52 L 10/21/16 07:00 Pulse Ox 98 10/21/16 06:00 - Labs Result Diagrams: 10/21/16 07:00 10/21/16 07:00 Labs: Laboratory Results - last 24 hr 10/20/16 10/20/16 10/20/16 09:29 09:29 09:29 WBC 15.4 H RBC 4.37 Hgb 11.1 L Hct 33.6 L MCV 76.9 L MCH 25.4 MCHC 33.0 RDW 20.6 H Plt Count 443 MPV 10.6 Gran % 74.6 H Lymph % (Auto) 16.2 L [place] % (Auto) 8.3 H Eos % (Auto) 0.8 L Baso % (Auto) 0.1 Gran # 11.48 H Lymph # 2.5 [place] # 1.3 H Eos # 0.1 Baso # 0.01 Neutrophils % (Manual) Band Neutrophils % Lymphocytes % (Manual) Atypical Lymphs % Monocytes % (Manual) Nucleated RBC % Platelet Evaluation Large Platelets Polychromasia Poikilocytosis (manual Anisocytosis (manual) Target Cells Ovalocytes PT 12.0 H INR 1.11 H APTT 27.8 pCO2 pO2 HCO3 ABG pH ABG Total CO2 ABG O2 Saturation ABG Base Excess ABG Hemoglobin ABG Carboxyhemoglobin POC ABG HHb (Measured) ABG Methemoglobin Hgb O2 Saturation FiO2 Sodium 126 L Potassium 4.8 Chloride 99 Carbon Dioxide 17 L Anion Gap 15 BUN 56 H Creatinine 1.3 Est GFR ( Amer) 52 Est GFR (Non-Af Amer) 43 POC Glucose (mg/dL) Random Glucose 281 H Calcium 8.7 Total Bilirubin 1.1 GGT AST 162 H ALT 710 H Alkaline Phosphatase 882 H Troponin I NT-Pro-B Natriuret Pep Total Protein 6.4 Albumin 3.0 Globulin 3.4 Albumin/Globulin Ratio 0.9 L Lipase 10/20/16 10/20/16 10/20/16 09:29 11:08 16:16 WBC RBC Hgb Hct MCV MCH MCHC RDW Plt Count MPV Gran % Lymph % (Auto) [place] % (Auto) Eos % (Auto) Baso % (Auto) Gran # Lymph # [place] # Eos # Baso # Neutrophils % (Manual) Band Neutrophils % Lymphocytes % (Manual) Atypical Lymphs % Monocytes % (Manual) Nucleated RBC % Platelet Evaluation Large Platelets Polychromasia Poikilocytosis (manual Anisocytosis (manual) Target Cells Ovalocytes PT INR APTT pCO2 pO2 HCO3 ABG pH ABG Total CO2 ABG O2 Saturation ABG Base Excess ABG Hemoglobin ABG Carboxyhemoglobin POC ABG HHb (Measured) ABG Methemoglobin Hgb O2 Saturation FiO2 Sodium Potassium Chloride Carbon Dioxide Anion Gap BUN Creatinine Est GFR ( Amer) Est GFR (Non-Af Amer) POC Glucose (mg/dL) 393 H 363 H Random Glucose Calcium Total Bilirubin GGT 358 H AST ALT Alkaline Phosphatase Troponin I NT-Pro-B Natriuret Pep Total Protein Albumin Globulin Albumin/Globulin Ratio Lipase 141 10/20/16 10/21/16 10/21/16 21:27 01:25 02:13 WBC RBC Hgb Hct MCV MCH MCHC RDW Plt Count MPV Gran % Lymph % (Auto) [place] % (Auto) Eos % (Auto) Baso % (Auto) Gran # Lymph # [place] # Eos # Baso # Neutrophils % (Manual) Band Neutrophils % Lymphocytes % (Manual) Atypical Lymphs % Monocytes % (Manual) Nucleated RBC % Platelet Evaluation Large Platelets Polychromasia Poikilocytosis (manual Anisocytosis (manual) Target Cells Ovalocytes PT INR APTT pCO2 15 L* pO2 134.0 H HCO3 8.1 L* ABG pH 7.34 L ABG Total CO2 8.6 L ABG O2 Saturation 98.9 H ABG Base Excess -15.4 L ABG Hemoglobin 10.8 L ABG Carboxyhemoglobin 1.9 H POC ABG HHb (Measured) 1.1 ABG Methemoglobin 1.0 Hgb O2 Saturation 96.0 FiO2 28.0 Sodium Potassium Chloride Carbon Dioxide Anion Gap BUN Creatinine Est GFR ( Amer) Est GFR (Non-Af Amer) POC Glucose (mg/dL) 235 H Random Glucose Calcium Total Bilirubin GGT AST ALT Alkaline Phosphatase Troponin I < 0.01 NT-Pro-B Natriuret Pep 48134 H Total Protein Albumin Globulin Albumin/Globulin Ratio Lipase 10/21/16 10/21/16 10/21/16 07:00 07:00 07:14 WBC 19.2 H D RBC 4.62 Hgb 11.9 L Hct 35.9 L MCV 77.7 L MCH 25.8 MCHC 33.1 RDW 20.7 H Plt Count 426 MPV 10.7 Gran % Lymph % (Auto) [place] % (Auto) Eos % (Auto) Baso % (Auto) Gran # Lymph # [place] # Eos # Baso # Neutrophils % (Manual) 76 H Band Neutrophils % 3 H Lymphocytes % (Manual) 16 L Atypical Lymphs % 1 H Monocytes % (Manual) 4 Nucleated RBC % 1 Platelet Evaluation High Large Platelets Present Polychromasia Slight Poikilocytosis (manual 1+ Anisocytosis (manual) 1+ Target Cells Slight Ovalocytes Slight PT INR APTT pCO2 pO2 HCO3 ABG pH ABG Total CO2 ABG O2 Saturation ABG Base Excess ABG Hemoglobin ABG Carboxyhemoglobin POC ABG HHb (Measured) ABG Methemoglobin Hgb O2 Saturation FiO2 Sodium 127 L Potassium 5.7 H* D Chloride 100 Carbon Dioxide 13 L Anion Gap 20 BUN 64 H Creatinine 1.9 H Est GFR ( Amer) 34 Est GFR (Non-Af Amer) 28 POC Glucose (mg/dL) 96 Random Glucose 140 H Calcium 8.4 Total Bilirubin 1.2 GGT AST 327 H ALT 682 H Alkaline Phosphatase 1167 H Troponin I NT-Pro-B Natriuret Pep Total Protein 6.3 Albumin 3.0 Globulin 3.3 Albumin/Globulin Ratio 0.9 L Lipase Assessment & Plan - Assessment and Plan (Free Text) Assessment: 51 year old female admitted with sepsis,CHF, Patient is alert,answers all questions but needs to be re-directed to topic of conversation. I explained that she is chronically ill with multiple medical problems and that her condition is deteriorating. I expressed concern for her future. I explained that in order to maintain optimal medical compliance she would need ongoing correction care. Option for going to [place] after rehab discussed. Patient states she wants to go home and live independently. I explained that she is unable to do so and that is the reason she is hospitalized so frequently. I asked if her sister in law was able to check on her daily and provide help with medical needs. Patient states she doesn't know, will talk with her sister in law. I also discussed resuscitation status. I explained the benefits and burdens of CPR/intubation. Patient states that she does not want to be kept alive on machines but would probably let doctors "try" . She was unwilling to do POLST until speaking with her sister in law,Rona. I also spoke with her sister in law Rona via phone. I addressed the same concerns as was discussed with the patient. The sister in law did not offer to take the patient into her home. She states that she babysits daily and can only check on the patient in the late evenings or weekends when she is off. I discussed patients concerns regarding resuscitation. I explained the ramifications of resuscitation in a patient with Citlali's multiple comorbidities. Sister in law states that the patient is a "fighter and can pull through anything". I offered to meet with her and the patient to further discuss advance care planning. Sister in law indicated that she can not meet with me until next week. Time spent in discussion with patient and family regarding goals of care and advance care planning, 40 minutes Plan: Palliative support Advance care planning
--- NOTE | 2016-10-21 09:40 | PN ---
DATE OF VISIT: 10/20/2016 SUBJECTIVE: The patient is sitting in a chair. She was transferred yesterday to telemetry due to change in mental status. This was felt secondary to her medications. She denies any new complaints. She appears comfortable. PHYSICAL EXAMINATION: VITAL SIGNS: Reveal temperature of 97.4, blood pressure 101/66, heart rate of 102. ABDOMEN: Soft, less diffuse tenderness. No rebound. No guarding. EXTREMITIES: Show anasarca with 1 to 2+ edema of her legs and arms. LABORATORY DATA: Reveals no new labs. IMPRESSION AND PLAN: A 51-year-old female with septic shock, respiratory failure, elevated liver enzymes secondary to shock liver as well as possibly medication induced, specifically meropenem, with increased alkaline phosphatase. She does have cardiomyopathy with a history of low ejection fraction of 30%. From a gastrointestinal standpoint, she is stable. Recommendations are to follow liver enzymes. Her hepatitis serology is negative. Servando Sidhu MD
[2016-10-21] MEDS: Insulin Detemir 100 units/ml Vial (Levemir) SC SCH (09:50)
[2016-10-21] MEDS: guaiFENesin 600 mg ER Tab PO SCH ×3 (09:53→19:12)
[2016-10-21] MEDS: Lactobacillus Acidophilus 500 MU Cap PO SCH ×4 (09:53→19:12)
[2016-10-21] MEDS: POLYETHYLENE GLYCOL 3350 17 GM/Dose PACKET PO SCH ×3 (09:55→19:12)
--- NOTE | 2016-10-21 09:55 | CARD ---
APPROVED REPORT EKG Measurement Heart [id number] <Conclusion> Normal sinus rhythm Left bundle branch block Abnormal ECG
--- NOTE | 2016-10-21 10:58 | CP.PCM.PN ---
Subjective - Date & Time of Evaluation Date of Evaluation: 10/21/16 Time of Evaluation: 09:35 - Subjective Subjective: Patient is comfortable on a chair, not in distress at rest, afebrile but still has dyspnea on exertion. Objective - Vital Signs/Intake and Output Vital Signs (last 24 hours): Temp Pulse Resp BP Pulse Ox 97.4 F L 102 H 21 101/66 98 10/19/16 18:53 10/19/16 18:53 10/19/16 18:53 10/19/16 18:53 10/19/16 16:30 - Medications Medications: Current Medications Apixaban (Eliquis) 2.5 mg PO BID [facility] Last Admin: 10/19/16 17:39 Dose: 2.5 mg Guaifenesin (Mucinex La) 600 mg PO BID [facility] Last Admin: 10/19/16 17:40 Dose: Not Given Insulin Detemir (Levemir) 24 unit SC DAILY [facility] Last Admin: 10/19/16 10:09 Dose: 24 unit Insulin Human Lispro (Humalog Med) 0 units SC [facility] PRN Reason: Protocol Last Admin: 10/19/16 22:00 Dose: Not Given Lorazepam (Ativan) 0.25 mg PO [facility] PRN Reason: Protocol Metoprolol Tartrate (Lopressor) 50 mg PO BID [facility] Last Admin: 10/19/16 17:39 Dose: Not Given Pantoprazole Sodium (Protonix Inj) 40 mg IVP 0600 [facility] Last Admin: 10/20/16 05:41 Dose: 40 mg Polyethylene Glycol (Miralax) 17 gm PO BID [facility] Last Admin: 10/19/16 17:39 Dose: Not Given Risperidone (Risperdal Tab) 1 mg PO HS [facility] PRN Reason: Protocol Last Admin: 10/18/16 21:17 Dose: 1 mg - Labs Labs: 10/18/16 07:00 10/18/16 07:00 PT 13.8 Seconds (9.9-11.8) H 10/18/16 07:00 INR 1.28 (0.93-1.08) H 10/18/16 07:00 APTT 29.4 Seconds (23.7-30.8) 10/18/16 07:00 - Constitutional Appears: Non-toxic, No Acute Distress - Head Exam Head Exam: NORMAL INSPECTION - Neck Exam Neck Exam: absent: Meningismus - Respiratory Exam Respiratory Exam: Decreased Breath Sounds (at the bases) - Cardiovascular Exam Cardiovascular Exam: +S1, +S2 - GI/Abdominal Exam GI & Abdominal Exam: Soft. absent: Tenderness Assessment and Plan - Assessment and Plan (Free Text) Plan: Assessment S/P severe sepsis S/P hypoxic ventilator-dependent respiratory failure probably due to bilateral lower lobe healthcare-associated pneumonia with possible gram positive cocci, gram negative bacilli and/or atypical organisms, with associated hyperglycemic, hyperosmolar state with also acute pancreatitis, etiology to be determined - clinically improved and now off antibiotics elevated Alk phos and transaminases in a patient with pancreatitis R/O biliary tree obstruction history of healthcare-associated pneumonia, right middle lobe history of bilateral healthcare-associated pneumonia in this patient chronic heart failure S/P acute cholecystitis, S/P laparoscopic cholecystectomy CAD with chronic CHF DM HTN history of migraines bipolar disorder Plan S/P 6 days of Merrem and Doxycycline; cultures have been negative; reviewed CT abdomen; would recommend ultrasound of abdomen (repeat) and if that is negative , an MRCP will continue to monitor clinically
[2016-10-21] MEDS ORDERED: Insulin Detemir 100 units/ml Vial (Levemir) SC ONE ×2 (12:00→18:00)
[2016-10-21 13:44] LABS: CALCIUM 8.1 mg/dL (8.4-10.5)
--- NOTE | 2016-10-21 16:29 | CP.PCM.PN ---
<SAROJ HOLCOMB - Last Filed: 10/21/16 16:43> Subjective - Date & Time of Evaluation Date of Evaluation: 10/21/16 Time of Evaluation: 09:00 - Subjective Subjective: patient was seen and examined bedside. pt was sitting in the chair and stated that she cannot lay down because she becomes short of breath when she does. complains of pain in her extremities, and is asking for lasix. it was explained to the patient that lasix cannot be given to her because her blood pressure is too low. Per nurse, the blood pressure dropped to 62/36 over night, and the overnight resident start the pt on saline and dobutamine. Objective - Vital Signs/Intake and Output Vital Signs (last 24 hours): Temp Pulse Resp BP Pulse Ox 98.1 F 92 H 19 98/60 L 98 10/21/16 12:00 10/21/16 14:00 10/21/16 12:00 10/21/16 12:00 10/21/16 06:00 Intake and Output: 10/21/16 10/21/16 06:59 18:59 Intake Total 440 Output Total 100 Balance 340 - Medications Medications: Current Medications Apixaban (Eliquis) 2.5 mg PO BID [facility] Last Admin: 10/21/16 09:53 Dose: 2.5 mg Guaifenesin (Mucinex La) 600 mg PO BID [facility] Last Admin: 10/21/16 09:53 Dose: 600 mg Dobutamine HCl/Dextrose (Dobutamine/Dextrose 5% 500mg/250ml) 500 mg in 250 mls @ 12.995 mls/hr IV .[id number] PRN; Protocol; 5 MCG/KG/MIN PRN Reason: TITRATE PER PROTOCOL Linezolid (Zyvox 600mg/300ml D5w) 600 mg in 300 mls @ 200 mls/hr IVPB Q12 [facility] PRN Reason: Protocol Stop: 10/28/16 22:01 Insulin Detemir (Levemir) 24 unit SC DAILY [facility] Last Admin: 10/21/16 09:50 Dose: Not Given Insulin Human Lispro (Humalog Med) 0 units SC ACHS [facility] PRN Reason: Protocol Last Admin: 10/21/16 12:28 Dose: 5 units Lactobacillus Acidophilus (Bacid Acidophilus) 1 cap PO BID [facility] Last Admin: 10/21/16 10:37 Dose: Not Given Lorazepam (Ativan) 0.25 mg PO HS [facility] PRN Reason: Protocol Metoprolol Tartrate (Lopressor) 50 mg PO BID [facility] Last Admin: 10/21/16 10:35 Dose: Not Given Pantoprazole Sodium (Protonix Inj) 40 mg IVP 0600 [facility] Last Admin: 10/21/16 05:21 Dose: 40 mg Polyethylene Glycol (Miralax) 17 gm PO BID [facility] Last Admin: 10/21/16 09:55 Dose: 17 gm Risperidone (Risperdal Tab) 1 mg PO HS [facility] PRN Reason: Protocol Last Admin: 10/18/16 21:17 Dose: 1 mg - Labs Labs: 10/21/16 07:00 10/21/16 13:31 PT 12.0 Seconds (9.9-11.8) H 10/20/16 09:29 INR 1.11 (0.93-1.08) H 10/20/16 09:29 APTT 27.8 Seconds (23.7-30.8) 10/20/16 09:29 - Constitutional Appears: No Acute Distress, Unkempt, Older Than Stated Age, Chronically Ill - Head Exam Head Exam: ATRAUMATIC, NORMOCEPHALIC - Eye Exam Eye Exam: EOMI, Normal appearance, PERRL. absent: Periorbital swelling, Scleral icterus Pupil Exam: NORMAL ACCOMODATION, PERRL - ENT Exam ENT Exam: Mucous Membranes Moist, Normal Exam - Respiratory Exam Respiratory Exam: Rales, NORMAL BREATHING PATTERN. absent: Accessory Muscle Use , Chest Wall Tenderness, Wheezes, Respiratory Distress, Stridor - Cardiovascular Exam Cardiovascular Exam: RRR, +S1, +S2. absent: Gallop, JVD, Rubs, Murmur - GI/Abdominal Exam GI & Abdominal Exam: Soft, Normal Bowel Sounds. absent: Distended, Guarding Additional comments: pt is obese - Extremities Exam Extremities Exam: Pedal Edema - Neurological Exam Neurological Exam: Alert (more alert than prior exam), Awake - Skin Skin Exam: Mottled, Normal Color. absent: Cyanosis, Diaphoretic, Warm ( extremities are cold) Assessment and Plan - Assessment and Plan (Free Text) Plan: 51 y/o female with PMHx of DM2, CHF (EF 30% in 10/2016), HTN, chronic pulmonary effusion, HTN, DVT, PE, hypothyroidism, PSH of lap mitchell in 05/2016 and psych hx of schizophrenia and Bipolar disorder presented to the ED with complaints of abdominal pain x1week. Patient was extubated on 10/15, and is on tele day 3, HHS improved, pt extubated and in NAD, increased edema in all 4 extremities. s/p 7 days of Doxycycline and 6 days of Meronepem. Anasarca - hold fluids - Lasix held for if SOB worsens or UO decrease due to hypotension, per pulm - ECHO (10/18): EF 30%, severe MR, large pleural effusion - Pulm consulted, recs appreciated Hypotension - cont dobutamine 500 mg, per cards recs - Cards consulted, recs appreciated - Pt transferred to tele for closer monitoring of BP - BMP elevated, likely 2/2 decreased perfusion UTI - UCx 10/19 growing VRE - start Zyvox day 1 - Leukocytosis worsening (WBC 19.2) Hyperkalemia - K 5.7 - pt was given Kayexalate, and Insulin 10u - EKG showed no new changes from prior one Hyponatremia likely dilutional - Na 124 - monitor BMP - Renal consult, recs appreciated DM2, HONK resolved - FS 200's-317 - Levemir increased to 24u daily, cont Humalog - monitor closely AMS - Ativan and Risperidone held - improving, pt is more responsive today Hypothermia - Temp around 98F, with lowest being 96.5 on 10/19 - extremities feel cold - consider warm blankets, pt only wearing gown and doesn't lay in bed or put covers in Transaminits likely 2/2 decreased perfuion - AST 327, ALT 682 - hepatitis serologies negative for Hep A, B and C antibodies - GI consult for colitis, recs appreciated Abdominal pain - hepatitis negative, legionella negative - lipase 141, GGT 358 - ALP rising (1167) likely 2/2 decreased perfusion - Hx lap mitchell in May 2016 Diarrhea - started on Lactobacillus Acidophilus - c diff f/u - pt on miralax Congested cough - cont Mucinex Dispo: Palliative care nurse discussing with pt and sister in law ([phone] ) regarding advanced directives and dispo PTX/Eliquis Patient was seen, discussed and evaluated with attending, Dr. Perry Holcomb, PGY1 <Annmarie Amador B - Last Filed: 10/26/16 17:29> Objective - Vital Signs/Intake and Output Vital Signs (last 24 hours): Temp Pulse Resp BP Pulse Ox 98.1 F 92 H 19 98/60 L 98 10/21/16 12:00 10/21/16 14:00 10/21/16 12:00 10/21/16 12:00 10/21/16 06:00 Intake and Output: 10/21/16 10/21/16 06:59 18:59 Intake Total 440 Output Total 100 Balance 340 - Medications Medications: Current Medications Apixaban (Eliquis) 2.5 mg PO BID [facility] Last Admin: 10/21/16 09:53 Dose: 2.5 mg Guaifenesin (Mucinex La) 600 mg PO BID [facility] Last Admin: 10/21/16 09:53 Dose: 600 mg Dobutamine HCl/Dextrose (Dobutamine/Dextrose 5% 500mg/250ml) 500 mg in 250 mls @ 12.995 mls/hr IV .[id number] PRN; Protocol; 5 MCG/KG/MIN PRN Reason: TITRATE PER PROTOCOL Linezolid (Zyvox 600mg/300ml D5w) 600 mg in 300 mls @ 200 mls/hr IVPB Q12 [facility] PRN Reason: Protocol Stop: 10/28/16 22:01 Insulin Detemir (Levemir) 24 unit SC DAILY [facility] Last Admin: 10/21/16 09:50 Dose: Not Given Insulin Detemir (Levemir) 12 unit SC ONCE ONE Stop: 10/21/16 18:01 Insulin Human Lispro (Humalog Med) 0 units SC ACHS [facility] PRN Reason: Protocol Last Admin: 10/21/16 12:28 Dose: 5 units Lactobacillus Acidophilus (Bacid Acidophilus) 1 cap PO BID [facility] Last Admin: 10/21/16 10:37 Dose: Not Given Lorazepam (Ativan) 0.25 mg PO HS [facility] PRN Reason: Protocol Metoprolol Tartrate (Lopressor) 50 mg PO BID [facility] Last Admin: 10/21/16 10:35 Dose: Not Given Pantoprazole Sodium (Protonix Inj) 40 mg IVP 0600 [facility] Last Admin: 10/21/16 05:21 Dose: 40 mg Polyethylene Glycol (Miralax) 17 gm PO BID [facility] Last Admin: 10/21/16 09:55 Dose: 17 gm Risperidone (Risperdal Tab) 1 mg PO HS [facility] PRN Reason: Protocol Last Admin: 10/18/16 21:17 Dose: 1 mg - Labs Labs: 10/21/16 07:00 10/21/16 13:31 PT 12.0 Seconds (9.9-11.8) H 10/20/16 09:29 INR 1.11 (0.93-1.08) H 10/20/16 09:29 APTT 27.8 Seconds (23.7-30.8) 10/20/16 09:29 Attending/Attestation - Attestation I have personally seen and examined this patient.: Yes I have fully participated in the care of the patient.: Yes I have reviewed all pertinent clinical information, including history, physical exam and plan: Yes Notes (Text): I have seen and examined patient at bedside. Agree with the above note with the following additions/ exceptions: Briefly this is 51 year old female with history of DM-2, CHF(EF~30%), HTN, chronic pulmonary effusion, HTN, DVT, PE on eliquis, hypothyroidism, schizophrenia and Bipolar disorder who presented initially with diffuse abdominal pain and confusion and found to be in HONK and code sepsis was called most likely due to HCAP vs abdominal etiology( Suspected colitis on CT scan). She completed meropenem and doxy. Patient was hypotensive and was started on dobutamine. Today she developed hyponatremia and OLLIE. Work up ordered and consulted development writer. Repeat urine cultures revealed VRE. Discussed with Dr Bean and started patient on zyvox. Blood cultures are negative. Stool for cdiff negative. LFT's are elevated most likely due to shock liver. GI on board. Will monitor patient clinically. Palliative care consult appreciated. Patient remains full code. PT recommended MITCH. Upon discharge patient will follow up with Dr Roman. Dr Annmarie Amador
--- NOTE | 2016-10-21 17:02 | PN ---
SUBJECTIVE: The patient is short of breath, Lasix is being withheld because of her hypotension. The patient was evaluated for ICU; however, acceptance was declined. PHYSICAL EXAMINATION: VITAL SIGNS: Blood pressure 86/56, heart rate 93, temperature 97 and respirations 16. HEENT: Facial edema. NECK: No JVD. CHEST: Absent breath sounds over the bases. HEART: S1, S2 regular. EXTREMITIES: 2+ pitting edema. LABORATORY DATA: Hemoglobin and hematocrit 11.1 and 33.6, white count and platelet count are 15.4 and 443,000. Sodium is 126, potassium 4.8, chloride 99, CO2 of 17, glucose 281, BUN 56 and creatinine 1.3. Venous Doppler of the lower extremities was performed, however, the report is still pending. Echocardiographic study was performed 2 days ago revealed ejection fraction in the range of 30% to 35% with global hypokinesis. [id number] pulmonary hypertension. ASSESSMENT: 1. Dilated cardiomyopathy. 2. Anasarca. 3. Borderline hypotension. 4. Diabetes mellitus. 5. History of depression. RECOMMENDATIONS: Start Dobutrex at 5 mcg/kg per minute and continue current Eliquis, Lopressor and resume intravenous Lasix. Overall prognosis is poor. The patient is not really cooperative in management, and she wants to stay on the chair despite hypotension which will make further therapeutic interventions difficult. Cesar Kinney MD
--- NOTE | 2016-10-21 20:10 | PN ---
DATE: 10/21/2016 SUBJECTIVE: Patient is lying in bed, comfortable. She denies any new complaints. PHYSICAL EXAMINATION: VITAL SIGNS: Reveal temperature of 98.1, blood pressure 98/60, heart rate of 91, this is on a dobutamine drip. HEENT: Reveal sclerae to be white, conjunctivae pink. NECK: Supple. CARDIOPULMONARY: Heart exam reveals regular rate and rhythm. LUNGS: Chest reveals decreased breath sounds at the bases. ABDOMEN: Soft, mild diffuse tenderness. No rebound, no guarding. EXTREMITIES: Show 2+ edema of the lower extremities and the arms. LABORATORY DATA: Reveals white blood cell count 19.2, hemoglobin 11.9. Chemistries reveal sodium of 127, potassium 5.7, AST/ALT are down to 327 and 682. Her total bilirubin is normal, her alkaline phosphatase is up to 1167. Her BNP is 16,600. IMPRESSION: A 51-year-old female with diabetes mellitus, congestive heart failure with ejection fraction of 30% with a recent septic shock secondary to presumed pneumonia, elevated liver enzymes which are decreasing; however, she has an alkaline phosphatase which is trending upwards to 1167, which I believe is secondary to meropenem which was discontinued two days ago. This may also be related to passive congestion of the liver from her heart failure. She does have anasarca. Patient's initial ultrasound and CAT scan of the abdomen does not show any evidence of biliary obstruction in terms of non-dilated intrahepatic and extrahepatic bile ducts. Her overall prognosis is poor. Her hepatitis serology was negative. RECOMMENDATIONS: 1. Consider palliative care. 2. Continue comfort measures and supportive care. A repeat ultrasound has been ordered by infectious disease. Servando Sidhu MD
--- NOTE | 2016-10-21 20:25 | CP.PCM.CON ---
History of Present Illness - History of Present Illness History of Present Illness: 51 yo F w/ pmh of htn, dm, CHF w/ systolic dysfunction, hypothyroidism, s/p PE, schizophrenia/bipolar disorder, presented initially with 1 week of abdominal pain, admitted with sepsis secondary to HCAP and hyperosmolar non-ketotic state ; patient was intubated, subsequently extubated; found to be markedly edematous and with echo showing severe systolic dysfunction; placed on inotropic support with dobutamine drip; nephrology service now being consulted for acute renal failure and hyponatremia; Patient is poor historian; says edema had been going on for some time before presentation; currently gets short of breath on minimal exertion; able to walk with assistance; preferring to stay in chair rather than bed due to abdominal and leg discomfort; denies any decrease in urination; tolerating diet well but says she has been getting diarrhea after eating lately; PMH: as above; lymphoma s/p chemo; Review of Systems - Constitutional Constitutional: Chills - EENT Eyes: absent: Change in Vision Nose/Mouth/Throat: absent: Nasal Discharge, Sore Throat - Cardiovascular Cardiovascular: Dyspnea on Exertion - Respiratory Respiratory: Cough, Excessive Mucous Production - Gastrointestinal Gastrointestinal: Abdominal Pain, Diarrhea - Genitourinary Genitourinary: absent: Difficulty Urinating - Musculoskeletal Musculoskeletal: absent: Back Pain - Integumentary Integumentary: absent: Pruritus, Rash - Neurological Additional comments: numbness in toes; Past Patient History - Infectious Disease Hx of Infectious Diseases: None - Tetanus Immunizations Tetanus Immunization: Unknown - Past Medical History & Family History Past Medical History?: Yes - Past Social History Smoking Status: Former Smoker - CARDIAC Hx Cardiac Disorders: Yes Hx Congestive Heart Failure: Yes Hx Hypertension: Yes - PULMONARY Hx Chronic Obstructive Pulmonary Disease (COPD): Yes - NEUROLOGICAL Hx Neurological Disorder: No Hx Seizures: No - HEENT Hx HEENT Problems: No - RENAL Hx Chronic Kidney Disease: No - ENDOCRINE/METABOLIC Hx Diabetes Mellitus Type 2: Yes Hx Hypothyroidism: Yes - HEMATOLOGICAL/ONCOLOGICAL Hx Blood Disorders: No - INTEGUMENTARY Hx Dermatological Problems: No Hx Basil Cell: No Hx Eczema: No Hx Melanoma: No Hx Psoriasis: No Hx Squamous Cell: No - MUSCULOSKELETAL/RHEUMATOLOGICAL Hx Falls: No - GASTROINTESTINAL Hx Gastrointestinal Disorders: Yes Hx Crohn's Disease: No Hx Diverticulitis: Yes Hx Gastroesophageal Reflux: Yes - GENITOURINARY/GYNECOLOGICAL Hx Genitourinary Disorders: No Hx Sexually Transmitted Disorders: No - PSYCHIATRIC Hx Anxiety: Yes Hx Bipolar Disorder: Yes Hx Depression: Yes Hx Substance Use: No - SURGICAL HISTORY Hx Appendectomy: No Hx Cholecystectomy: Yes Hx Coronary Stent: No Other/Comment: neck mass excision - ANESTHESIA Hx Anesthesia: Yes Hx Anesthesia Reactions: No Hx Malignant Hyperthermia: No Meds Allergies/Adverse Reactions: Allergies Allergy/AdvReac Type Severity Reaction Status Date / Time No Known Allergies Allergy Verified 09/19/16 16:59 - Medications Medications: Current Medications Apixaban (Eliquis) 2.5 mg PO BID [facility] Last Admin: 10/21/16 19:12 Dose: Not Given Guaifenesin (Mucinex La) 600 mg PO BID [facility] Last Admin: 10/21/16 19:12 Dose: Not Given Dobutamine HCl/Dextrose (Dobutamine/Dextrose 5% 500mg/250ml) 500 mg in 250 mls @ 12.995 mls/hr IV .[id number] PRN; Protocol; 5 MCG/KG/MIN PRN Reason: TITRATE PER PROTOCOL Linezolid (Zyvox 600mg/300ml D5w) 600 mg in 300 mls @ 200 mls/hr IVPB Q12 [facility] PRN Reason: Protocol Stop: 10/28/16 22:01 Insulin Detemir (Levemir) 24 unit SC DAILY [facility] [place] Last Admin: 10/21/16 09:50 Dose: Not Given Insulin Human Lispro (Humalog Med) 0 units SC ACHS [facility] [place] PRN Reason: Protocol Last Admin: 10/21/16 17:36 Dose: 7 units Lactobacillus Acidophilus (Bacid Acidophilus) 1 cap PO BID [facility] [place] Last Admin: 10/21/16 19:12 Dose: Not Given Lorazepam (Ativan) 0.25 mg PO HS [facility] [place] PRN Reason: Protocol Metoprolol Tartrate (Lopressor) 50 mg PO BID [facility] [place] Last Admin: 10/21/16 19:12 Dose: Not Given Pantoprazole Sodium (Protonix Inj) 40 mg IVP 0600 [facility] [place] Last Admin: 10/21/16 05:21 Dose: 40 mg Polyethylene Glycol (Miralax) 17 gm PO BID [facility] [place] Last Admin: 10/21/16 19:12 Dose: Not Given Risperidone (Risperdal Tab) 1 mg PO HS [facility] [place] PRN Reason: Protocol Last Admin: 10/18/16 21:17 Dose: 1 mg Physical Exam - Constitutional Appears: No Acute Distress - Head Exam Head Exam: NORMAL INSPECTION - Eye Exam Eye Exam: Normal appearance. absent: Scleral icterus - ENT Exam ENT Exam: Mucous Membranes Moist - Neck Exam Neck exam: Negative for: Lymphadenopathy, Thyromegaly - Respiratory Exam Respiratory Exam: Clear to Auscultation Bilateral. absent: Rales, Rhonchi, Wheezes Additional comments: Decreased sounds as R base; - Cardiovascular Exam Cardiovascular Exam: Tachycardia, Gallop, +S1, +S2 Additional comments: S3+ - GI/Abdominal Exam GI & Abdominal Exam: Soft. absent: Distended - Extremities Exam Extremities exam: Positive for: normal capillary refill Additional comments: Marked lower leg and pedal edema; unable to palpate DP pulses; - Back Exam Back exam: NORMAL INSPECTION - Neurological Exam Neurological exam: Alert - Psychiatric Exam Psychiatric exam: Agitated - Skin Skin Exam: Normal Color, Warm Results - Vital Signs Recent Vital Signs: Last Vital Signs Temp 97.6 F 10/21/16 18:00 Pulse 103 H 10/21/16 18:00 Resp 20 10/21/16 18:00 BP 126/74 10/21/16 18:00 Pulse Ox 98 10/21/16 06:00 - Labs Result Diagrams: 10/21/16 07:00 10/21/16 13:31 Labs: Laboratory Results - last 24 hr 10/20/16 10/21/16 10/21/16 21:27 01:25 02:13 WBC RBC Hgb Hct MCV MCH MCHC RDW Plt Count MPV Neutrophils % (Manual) Band Neutrophils % Lymphocytes % (Manual) Atypical Lymphs % Monocytes % (Manual) Nucleated RBC % Platelet Evaluation Large Platelets Polychromasia Poikilocytosis (manual Anisocytosis (manual) Target Cells Ovalocytes pCO2 15 L* pO2 134.0 H HCO3 8.1 L* ABG pH 7.34 L ABG Total CO2 8.6 L ABG O2 Saturation 98.9 H ABG Base Excess -15.4 L ABG Hemoglobin 10.8 L ABG Carboxyhemoglobin 1.9 H POC ABG HHb (Measured) 1.1 ABG Methemoglobin 1.0 Hgb O2 Saturation 96.0 FiO2 28.0 Sodium Potassium Chloride Carbon Dioxide Anion Gap BUN Creatinine Est GFR ( Amer) Est GFR (Non-Af Amer) POC Glucose (mg/dL) 235 H Random Glucose Calcium Total Bilirubin AST ALT Alkaline Phosphatase Troponin I < 0.01 NT-Pro-B Natriuret Pep 19374 H Total Protein Albumin Globulin Albumin/Globulin Ratio 10/21/16 10/21/16 10/21/16 07:00 07:00 07:14 WBC 19.2 H D RBC 4.62 Hgb 11.9 L Hct 35.9 L MCV 77.7 L MCH 25.8 MCHC 33.1 RDW 20.7 H Plt Count 426 MPV 10.7 Neutrophils % (Manual) 76 H Band Neutrophils % 3 H Lymphocytes % (Manual) 16 L Atypical Lymphs % 1 H Monocytes % (Manual) 4 Nucleated RBC % 1 Platelet Evaluation High Large Platelets Present Polychromasia Slight Poikilocytosis (manual 1+ Anisocytosis (manual) 1+ Target Cells Slight Ovalocytes Slight pCO2 pO2 HCO3 ABG pH ABG Total CO2 ABG O2 Saturation ABG Base Excess ABG Hemoglobin ABG Carboxyhemoglobin POC ABG HHb (Measured) ABG Methemoglobin Hgb O2 Saturation FiO2 Sodium 127 L Potassium 5.7 H* D Chloride 100 Carbon Dioxide 13 L Anion Gap 20 BUN 64 H Creatinine 1.9 H Est GFR ( Amer) 34 Est GFR (Non-Af Amer) 28 POC Glucose (mg/dL) 96 Random Glucose 140 H Calcium 8.4 Total Bilirubin 1.2 AST 327 H ALT 682 H Alkaline Phosphatase 1167 H Troponin I NT-Pro-B Natriuret Pep Total Protein 6.3 Albumin 3.0 Globulin 3.3 Albumin/Globulin Ratio 0.9 L 10/21/16 10/21/16 10/21/16 11:09 13:31 16:07 WBC RBC Hgb Hct MCV MCH MCHC RDW Plt Count MPV Neutrophils % (Manual) Band Neutrophils % Lymphocytes % (Manual) Atypical Lymphs % Monocytes % (Manual) Nucleated RBC % Platelet Evaluation Large Platelets Polychromasia Poikilocytosis (manual Anisocytosis (manual) Target Cells Ovalocytes pCO2 pO2 HCO3 ABG pH ABG Total CO2 ABG O2 Saturation ABG Base Excess ABG Hemoglobin ABG Carboxyhemoglobin POC ABG HHb (Measured) ABG Methemoglobin Hgb O2 Saturation FiO2 Sodium 124 L Potassium 4.7 Chloride 98 Carbon Dioxide 16 L Anion Gap 15 BUN 65 H Creatinine 1.8 H Est GFR ( Amer) 36 Est GFR (Non-Af Amer) 30 POC Glucose (mg/dL) 294 H 317 H Random Glucose 316 H* Calcium 8.1 L Total Bilirubin AST ALT Alkaline Phosphatase Troponin I NT-Pro-B Natriuret Pep Total Protein Albumin Globulin Albumin/Globulin Ratio - Imaging and Cardiology US - abdomen Status: Image reviewed by me Additional comment: Normal renal echogenicity bilaterally; Assessment & Plan (1) Acute renal failure Assessment and Plan: Appears cardiorenal in the setting of severe acute decompensated CHF, however, cannot rule out progression to ATN in the setting of hypotension seen recently; urine lytes unavailable (and likely will be difficult to obtain given patient's difficulty cooperation); nevertheless, is volume overloaded on exam and should restart diuresis, especially with patient on inotropic agent which should improve renal perfusion; -Starting IV lasix 40 mg q8h; if no response within 1-2 hrs, will increase to 80 mg; Status: Acute (2) Hyponatremia Assessment and Plan: In the setting of acute decompensated CHF; poor prognostic finding; indicative of high ADH state due to poor overall perfusion; can give dose of tolvaptan but currently need volume removal as patient is total body Na and water overloaded; -1L fluid restriction per day -Will give tolvaptan after assessing effect of lasix -Awaiting urine lytes Status: Acute (3) CHF (congestive heart failure) Assessment and Plan: Acute severely decompensated systolic CHF; now on inotropic support; discussed with patient that kidneys are not being perfused and there is a chance of needing dialysis to which she seems averse; need to attempt pre-load reduction with diuretics; severe hypotensive readings seen earlier today appear doubtful as patient clinically shows no signs of hypotension; avoid giving saline unless with symptomatic hypotension; -Needs to diurese with IV lasix to achieve 1-1.5 kg daily weight reduction (if effective, can switch to lasix drip for continuous volume removal); -f/u with cardiology recs Status: Chronic (4) Metabolic acidosis Assessment and Plan: Mostly non-gap acidosis; unclear if this is being iatrogenically caused by miralax induced diarrhea; no other discernable cause and was not present on previous admission; -hold miralax and re-assess; Status: Acute (5) Sepsis Assessment and Plan: Patient today started on linezolid for VRE in urine, no renal dose adjustment needed; Status: Acute
[2016-10-21] MEDS: DOBUTamine 500mg/250ml D5W 500 MG/250 ML BAG IV PRN (21:27)
[2016-10-21] MEDS: Linezolid 600 mg in D5W 300 ml 600 MG/300 ML BAG IVPB SCH (22:36)
--- NOTE | 2016-10-21 23:55 | PN ---
DATE: 10/21/2016 SUBJECTIVE: The patient is still experiencing shortness of breath and has significant leg swelling. PHYSICAL EXAMINATION VITAL SIGNS: Blood pressure 98/60, heart rate 91, temperature 98.1, respirations 19. HEENT: Facial edema. NECK: No JVD. CARDIOPULMONARY: S1 and S2 regular. CHEST: Absent breath sounds over the bases. EXTREMITIES: 2+ pitting edema. LABORATORY DATA: Hemoglobin and hematocrit 11.9 and 35.9, white count and platelet count 19.2 and 426,000. Today's BUN and creatinine are 65 and 1.8, sodium is 124, potassium is 4.7 following Kayexalate therapy, earlier the potassium was 5.7. 2D EKG revealed sinus rhythm with left bundle branch block. Venous Doppler of lower extremity report is still pending. ASSESSMENT: 1. Cardiomyopathy. 2. Hyponatremia. 3. Acute renal insufficiency. 4. Borderline hypertension. 5. Urinary tract infection. RECOMMENDATIONS: 1. Continue current Dobutrex 5 mcg/kg per minute. 2. Continue Eliquis 2.5 mg twice a day. 3. Lopressor 50 mg twice a day. 4. Discontinue dietary sodium restriction as the patient is not a suitable candidate for ARETHA inhibitors in view *------* renal insufficiency as well as hypotension. 5. Fluid restriction is recommended. Cesar Kinney MD
[2016-10-22] MEDS: Insulin Lispro (humaLOG) MEDIUM Coverage SC SCH ×4 (08:56→22:36)
[2016-10-22] MEDS: Linezolid 600 mg in D5W 300 ml 600 MG/300 ML BAG IVPB SCH ×2 (10:07→23:02)
[2016-10-22] MEDS: Insulin Detemir 100 units/ml Vial (Levemir) SC SCH (10:08)
[2016-10-22] MEDS: guaiFENesin 600 mg ER Tab PO SCH ×2 (10:08→18:24)
[2016-10-22] MEDS: Lactobacillus Acidophilus 500 MU Cap PO SCH ×2 (10:08→18:24)
--- NOTE | 2016-10-22 11:44 | CP.PCM.PN ---
Subjective - Date & Time of Evaluation Date of Evaluation: 10/22/16 Time of Evaluation: 10:10 - Subjective Subjective: Comfortable on a chair, not in distress, afebrile. Noted patient to have had some hypotension yesterday, but BP got better after the pain meds and dobutamine were held temporarily. Objective - Vital Signs/Intake and Output Vital Signs (last 24 hours): Temp Pulse Resp BP Pulse Ox 97.1 F L 97 H 20 107/62 98 10/22/16 00:01 10/22/16 02:00 10/22/16 00:01 10/22/16 00:01 10/21/16 06:00 - Medications Medications: Current Medications Apixaban (Eliquis) 2.5 mg PO BID [facility] Last Admin: 10/21/16 21:20 Dose: 2.5 mg Furosemide (Lasix) 40 mg IVP Q8H [facility] Last Admin: 10/22/16 04:45 Dose: Not Given Guaifenesin (Mucinex La) 600 mg PO BID [facility] Last Admin: 10/21/16 19:12 Dose: Not Given Dobutamine HCl/Dextrose (Dobutamine/Dextrose 5% 500mg/250ml) 500 mg in 250 mls @ 12.995 mls/hr IV .[id number] PRN; Protocol; 5 MCG/KG/MIN PRN Reason: TITRATE PER PROTOCOL Last Admin: 10/21/16 21:27 Dose: 12.995 mls/hr Linezolid (Zyvox 600mg/300ml D5w) 600 mg in 300 mls @ 200 mls/hr IVPB Q12 [facility] PRN Reason: Protocol Stop: 10/28/16 22:01 Last Admin: 10/21/16 22:36 Dose: 200 mls/hr Insulin Detemir (Levemir) 24 unit SC DAILY [facility] Last Admin: 10/21/16 09:50 Dose: Not Given Insulin Human Lispro (Humalog Med) 0 units SC ACHS [facility] PRN Reason: Protocol Last Admin: 10/21/16 22:36 Dose: 2 units Lactobacillus Acidophilus (Bacid Acidophilus) 1 cap PO BID [facility] Last Admin: 10/21/16 19:12 Dose: Not Given Lorazepam (Ativan) 0.25 mg PO HS [facility] PRN Reason: Protocol Metoprolol Tartrate (Lopressor) 50 mg PO BID [facility] Last Admin: 10/21/16 19:12 Dose: Not Given Pantoprazole Sodium (Protonix Inj) 40 mg IVP 0600 [facility] Last Admin: 10/22/16 06:11 Dose: 40 mg Polyethylene Glycol (Miralax) 17 gm PO BID [facility] Last Admin: 10/21/16 19:12 Dose: Not Given Risperidone (Risperdal Tab) 1 mg PO HS [facility] PRN Reason: Protocol Last Admin: 10/18/16 21:17 Dose: 1 mg - Labs Labs: 10/21/16 07:00 10/21/16 13:31 PT 12.0 Seconds (9.9-11.8) H 10/20/16 09:29 INR 1.11 (0.93-1.08) H 10/20/16 09:29 APTT 27.8 Seconds (23.7-30.8) 10/20/16 09:29 - Constitutional Appears: Non-toxic, No Acute Distress - Head Exam Head Exam: NORMAL INSPECTION - ENT Exam ENT Exam: Mucous Membranes Moist - Neck Exam Neck Exam: absent: Meningismus - Respiratory Exam Respiratory Exam: Decreased Breath Sounds - Cardiovascular Exam Cardiovascular Exam: +S1, +S2 - GI/Abdominal Exam GI & Abdominal Exam: Soft. absent: Tenderness Assessment and Plan - Assessment and Plan (Free Text) Plan: Assessment S/P severe sepsis S/P hypoxic ventilator-dependent respiratory failure probably due to bilateral lower lobe healthcare-associated pneumonia with possible gram positive cocci, gram negative bacilli and/or atypical organisms, with associated hyperglycemic, hyperosmolar state with also acute pancreatitis, etiology to be determined - clinically improved and now off antibiotics - had hypotensive episodes probably meds-related VRE in the urine elevated Alk phos and transaminases in a patient with pancreatitis R/O biliary tree obstruction history of healthcare-associated pneumonia, right middle lobe history of bilateral healthcare-associated pneumonia in this patient chronic heart failure S/P acute cholecystitis, S/P laparoscopic cholecystectomy CAD with chronic CHF DM HTN history of migraines bipolar disorder Plan S/P 6 days of Merrem and Doxycycline; cultures have been negative; reviewed CT abdomen; would recommend ultrasound of abdomen (repeat) and if that is negative , an MRCP started Zyvox and will check repeat urine cx will continue to monitor clinically
--- NOTE | 2016-10-22 12:54 | CP.PCM.PN ---
<Dalton Huber - Last Filed: 10/22/16 13:11> Subjective - Date & Time of Evaluation Date of Evaluation: 10/22/16 Time of Evaluation: 12:39 - Subjective Subjective: Pt seen and examined at bedside. Pt doing well overnight with no acute events as per nursing. Pt states she still has diarrhea, although frequency has decreased from previous days. Pt states she is more alert today. Denies CP, SOB , nausea, vomiting, fevers, chills. Objective - Vital Signs/Intake and Output Vital Signs (last 24 hours): Temp Pulse Resp BP Pulse Ox 98.2 F 102 H 18 110/70 100 10/22/16 06:00 10/22/16 06:00 10/22/16 06:00 10/22/16 12:28 10/22/16 06:00 Intake and Output: 10/22/16 10/22/16 06:59 18:59 Intake Total 156 280 Output Total 2 Balance 156 278 - Medications Medications: Current Medications Apixaban (Eliquis) 2.5 mg PO BID [facility] Last Admin: 10/22/16 10:23 Dose: 2.5 mg Furosemide (Lasix) 40 mg IVP Q8H [facility] Last Admin: 10/22/16 12:28 Dose: 40 mg Guaifenesin (Mucinex La) 600 mg PO BID [facility] Last Admin: 10/22/16 10:08 Dose: 600 mg Dobutamine HCl/Dextrose (Dobutamine/Dextrose 5% 500mg/250ml) 500 mg in 250 mls @ 12.995 mls/hr IV .[id number] PRN; Protocol; 5 MCG/KG/MIN PRN Reason: TITRATE PER PROTOCOL Last Admin: 10/21/16 21:27 Dose: 12.995 mls/hr Linezolid (Zyvox 600mg/300ml D5w) 600 mg in 300 mls @ 200 mls/hr IVPB Q12 [facility] PRN Reason: Protocol Stop: 10/28/16 22:01 Last Admin: 10/22/16 10:07 Dose: 200 mls/hr Insulin Detemir (Levemir) 24 unit SC DAILY [facility] Last Admin: 10/22/16 10:08 Dose: 24 unit Insulin Human Lispro (Humalog Med) 0 units SC ACHS [facility] PRN Reason: Protocol Last Admin: 10/22/16 08:56 Dose: 7 units Lactobacillus Acidophilus (Bacid Acidophilus) 1 cap PO BID [facility] Last Admin: 10/22/16 10:08 Dose: 1 cap Lorazepam (Ativan) 0.25 mg PO HS [facility] PRN Reason: Protocol Metoprolol Tartrate (Lopressor) 50 mg PO BID [facility] Last Admin: 10/22/16 10:23 Dose: 50 mg Pantoprazole Sodium (Protonix Inj) 40 mg IVP 0600 [facility] Last Admin: 10/22/16 06:11 Dose: 40 mg Polyethylene Glycol (Miralax) 17 gm PO BID [facility] Last Admin: 10/21/16 19:12 Dose: Not Given Risperidone (Risperdal Tab) 1 mg PO HS [facility] PRN Reason: Protocol Last Admin: 10/18/16 21:17 Dose: 1 mg - Labs Labs: 10/21/16 07:00 10/21/16 13:31 PT 12.0 Seconds (9.9-11.8) H 10/20/16 09:29 INR 1.11 (0.93-1.08) H 10/20/16 09:29 APTT 27.8 Seconds (23.7-30.8) 10/20/16 09:29 - Constitutional Appears: Non-toxic, No Acute Distress - Head Exam Head Exam: ATRAUMATIC, NORMAL INSPECTION, NORMOCEPHALIC - Respiratory Exam Respiratory Exam: Rales (Mild rales in b/l lung bases), NORMAL BREATHING PATTERN - Cardiovascular Exam Cardiovascular Exam: RRR, +S1, +S2 - GI/Abdominal Exam GI & Abdominal Exam: Distended, Soft, Normal Bowel Sounds. absent: Tenderness - Extremities Exam Extremities Exam: Pedal Edema (+2 pitting edema b/l). absent: Calf Tenderness - Neurological Exam Neurological Exam: Alert, Awake, Oriented x3 - Psychiatric Exam Psychiatric exam: Normal Affect, Normal Mood - Skin Skin Exam: Intact, Normal Color, Warm Assessment and Plan - Assessment and Plan (Free Text) Plan: 51 y/o F with PMH of DM2, CHF with EF of 30%, HTN, chronic pulmonary effusion, HTN, recurrent DVT, PE, hypothyroidism, schizophrenia and bipolar disorder who initially presented with HHS and AMS, now resolved. Pt remains on telemetry, hypotensive and on dobutamine drip. Pt with improved anasarca as Nephrology has started the patient on Lasix 40 mg q8h IV. Pt also urine culture positive for VRE, on Zyvox and followed by ID. LFT's trending downward at this time, abdominal ultrasound read pending. Pt will continue to be monitored closely. CHF, decompensated - Continue Lasix 40 mg IV q8h - Dobutamine drip - Fluid restriction 1L - Low salt diet - Strict I's and O's, monitor urine output closely - ECHO (10/18): EF 30%, severe MR, large pleural effusion Hypotension - BP stable overnight, 110/70 - Continue dobutamine - Cardiology consulted UTI - Urine Cx - VRE - Zyvox day 2 Hyponatremia - Fluid restriction, 1 L - Awaiting urine electrolytes - Nephrology consulted DM2, - Levemir 24 units daily - ISS - monitor closely AMS - Continue holding Ativan and Risperidone for hypotension Transaminits - Secondary to hypotension - LFT's improving - Abdominal ultrasound pending - hepatitis panel negative - GI following Seen, reviewed, and discussed with attending Cecile PGY-2 <Anne Marie Moran - Last Filed: 10/22/16 20:27> Objective - Vital Signs/Intake and Output Vital Signs (last 24 hours): Temp Pulse Resp BP Pulse Ox 97 F L 100 H 17 94/58 L 100 10/22/16 18:00 10/22/16 18:00 10/22/16 18:00 10/22/16 18:00 10/22/16 06:00 Intake and Output: 10/22/16 10/23/16 18:59 06:59 Intake Total 1240 Output Total 52 Balance 1188 - Medications Medications: Current Medications Apixaban (Eliquis) 2.5 mg PO BID [facility] Last Admin: 10/22/16 18:29 Dose: 2.5 mg Calcium Carbonate (Caltrate) 600 mg PO Q8H [facility] Last Admin: 10/22/16 18:29 Dose: 600 mg Furosemide (Lasix) 40 mg IVP Q8H [facility] Last Admin: 10/22/16 12:28 Dose: 40 mg Guaifenesin (Mucinex La) 600 mg PO BID [facility] Last Admin: 10/22/16 18:24 Dose: 600 mg Dobutamine HCl/Dextrose (Dobutamine/Dextrose 5% 500mg/250ml) 500 mg in 250 mls @ 12.995 mls/hr IV .[id number] PRN; Protocol; 5 MCG/KG/MIN PRN Reason: TITRATE PER PROTOCOL Last Admin: 10/22/16 18:36 Dose: 12.995 mls/hr Linezolid (Zyvox 600mg/300ml D5w) 600 mg in 300 mls @ 200 mls/hr IVPB Q12 [facility] PRN Reason: Protocol Stop: 10/28/16 22:01 Last Admin: 10/22/16 10:07 Dose: 200 mls/hr Insulin Detemir (Levemir) 24 unit SC DAILY [facility] Last Admin: 10/22/16 10:08 Dose: 24 unit Insulin Human Lispro (Humalog Med) 0 units SC ACHS [facility] PRN Reason: Protocol Last Admin: 10/22/16 18:25 Dose: 5 units Lactobacillus Acidophilus (Bacid Acidophilus) 1 cap PO BID [facility] Last Admin: 10/22/16 18:24 Dose: 1 cap Lorazepam (Ativan) 0.25 mg PO HS [facility] PRN Reason: Protocol Metoprolol Tartrate (Lopressor) 50 mg PO BID [facility] Last Admin: 10/22/16 18:29 Dose: Not Given Pantoprazole Sodium (Protonix Inj) 40 mg IVP 0600 [facility] Last Admin: 10/22/16 06:11 Dose: 40 mg Polyethylene Glycol (Miralax) 17 gm PO BID [facility] Last Admin: 10/21/16 19:12 Dose: Not Given Risperidone (Risperdal Tab) 1 mg PO HS [facility] PRN Reason: Protocol Last Admin: 10/18/16 21:17 Dose: 1 mg Torsemide (Demadex) 10 mg PO Q12H [facility] Last Admin: 10/22/16 18:29 Dose: 10 mg - Labs Labs: 10/22/16 13:02 10/22/16 13:02 PT 12.0 Seconds (9.9-11.8) H 10/20/16 09:29 INR 1.11 (0.93-1.08) H 10/20/16 09:29 APTT 27.8 Seconds (23.7-30.8) 10/20/16 09:29 Attending/Attestation - Attestation I have personally seen and examined this patient.: Yes I have fully participated in the care of the patient.: Yes I have reviewed all pertinent clinical information, including history, physical exam and plan: Yes Notes (Text): 10/22/16 20:16 patient seen and examined at bedside. Sitting comfortably in chair in no acute distress. Awake , alert and verbal and admits to feeling better today. Refused blood draws earlier today and explained the need for getting it done. Continue inotropic support in setting of her cardiomyopathy and worsening renal function as well as passive congestion leading to transaminitis(improving). multi- speciality follow up ongoing. Trial of Tolvaptan today and continue regimen of lasix.Sodium levels remain low but patient is asymptomatic. Continue IV antibiotics for VRE infection and trend leukocytosis.
[2016-10-22 13:12] LABS: BASO # 0.01 K/mm3 (0.0-2.0); EOS # 0.1 (0.0-0.7); EOS % 0.6 % (1.5-5.0); GRAN # 17.66 (1.4-6.5); GRAN % 83.6 % (50.0-68.0); HEMOGLOBIN 10.9 gm/dL (12.0-16.0); LYMPH # 1.7 (1.2-3.4); MEAN CELL VOLUME 76.9 fL (80.0-105.0); MEAN CORPUSCULAR HEMOGLOBIN 25.4 pg (25.0-35.0); MEAN PLATELET VOLUME 10.4 fl (7.0-11.0); MONO # 1.7 (0.1-0.6); MONO % 7.8 % (1.0-6.0); PLATELET COUNT 403 10^3/uL (120.0-450.0); RBC 4.29 10^6/uL (3.5-6.1); RED CELL DISTRIBUTION WIDTH 20.5 % (11.5-14.5); WHITE BLOOD COUNT 21.2 10^3/ul (4.5-11.0)
[2016-10-22 13:20] LABS: ALB/GLOB RATIO 0.9 (1.1-1.8); ALBUMIN 2.9 g/dL (3.0-4.8); CALCIUM 8.3 mg/dL (8.4-10.5)
[2016-10-22] MEDS ORDERED: Tolvaptan 15 MG TAB PO ONE (13:47)
--- NOTE | 2016-10-22 13:59 | CP.PCM.PN ---
Subjective - Date & Time of Evaluation Date of Evaluation: 10/22/16 Time of Evaluation: 12:45 - Subjective Subjective: Per house staff, patient is much more alert than yesterday morning after starting dobutamine; patient reports breathing improved, urinating more, but still with diarrhea? Objective - Vital Signs/Intake and Output Vital Signs (last 24 hours): Temp Pulse Resp BP Pulse Ox 97.0 F L 99 H 20 110/70 100 10/22/16 12:00 10/22/16 12:00 10/22/16 12:00 10/22/16 12:28 10/22/16 06:00 Intake and Output: 10/22/16 10/22/16 06:59 18:59 Intake Total 156 280 Output Total 2 Balance 156 278 - Medications Medications: Current Medications Apixaban (Eliquis) 2.5 mg PO BID [facility] Last Admin: 10/22/16 10:23 Dose: 2.5 mg Furosemide (Lasix) 40 mg IVP Q8H [facility] Last Admin: 10/22/16 12:28 Dose: 40 mg Guaifenesin (Mucinex La) 600 mg PO BID [facility] Last Admin: 10/22/16 10:08 Dose: 600 mg Dobutamine HCl/Dextrose (Dobutamine/Dextrose 5% 500mg/250ml) 500 mg in 250 mls @ 12.995 mls/hr IV .[id number] PRN; Protocol; 5 MCG/KG/MIN PRN Reason: TITRATE PER PROTOCOL Last Admin: 10/21/16 21:27 Dose: 12.995 mls/hr Linezolid (Zyvox 600mg/300ml D5w) 600 mg in 300 mls @ 200 mls/hr IVPB Q12 [facility] PRN Reason: Protocol Stop: 10/28/16 22:01 Last Admin: 10/22/16 10:07 Dose: 200 mls/hr Insulin Detemir (Levemir) 24 unit SC DAILY [facility] Last Admin: 10/22/16 10:08 Dose: 24 unit Insulin Human Lispro (Humalog Med) 0 units SC ACHS [facility] PRN Reason: Protocol Last Admin: 10/22/16 12:36 Dose: 10 units Lactobacillus Acidophilus (Bacid Acidophilus) 1 cap PO BID [facility] Last Admin: 10/22/16 10:08 Dose: 1 cap Lorazepam (Ativan) 0.25 mg PO HS [facility] PRN Reason: Protocol Metoprolol Tartrate (Lopressor) 50 mg PO BID [facility] Last Admin: 10/22/16 10:23 Dose: 50 mg Pantoprazole Sodium (Protonix Inj) 40 mg IVP 0600 [facility] Last Admin: 10/22/16 06:11 Dose: 40 mg Polyethylene Glycol (Miralax) 17 gm PO BID [facility] Last Admin: 10/21/16 19:12 Dose: Not Given Risperidone (Risperdal Tab) 1 mg PO [facility] PRN Reason: Protocol Last Admin: 10/18/16 21:17 Dose: 1 mg - Labs Labs: 10/22/16 13:02 10/22/16 13:02 PT 12.0 Seconds (9.9-11.8) H 10/20/16 09:29 INR 1.11 (0.93-1.08) H 10/20/16 09:29 APTT 27.8 Seconds (23.7-30.8) 10/20/16 09:29 - Constitutional Appears: Non-toxic, No Acute Distress - Head Exam Head Exam: NORMAL INSPECTION - Eye Exam Eye Exam: Normal appearance - ENT Exam ENT Exam: Mucous Membranes Moist - Respiratory Exam Respiratory Exam: absent: Rales, Rhonchi, Wheezes, Respiratory Distress Additional comments: Decreased basal breath sounds; - Cardiovascular Exam Cardiovascular Exam: REGULAR RHYTHM, +S1, +S2 Additional comments: No S3 today; - GI/Abdominal Exam GI & Abdominal Exam: Soft. absent: Tenderness - Extremities Exam Extremities Exam: Normal Capillary Refill Additional comments: Marked leg edema extending to lower abd/back; - Neurological Exam Neurological Exam: Alert, Awake - Psychiatric Exam Psychiatric exam: Agitated - Skin Skin Exam: Normal Color, Warm. absent: Cyanosis Assessment and Plan (1) Acute renal failure Assessment & Plan: Cardiorenal etiology; persists despite starting dobutamine but hasn't worsened since yesterday; unable to assess urine output due to patient's non-cooperation ; should continue to diurese to achieve pre-load reduction and cardiac optimization; -continue lasix 40 mg IV q8h (nursing staff instructed to document quantified UO ) -will add torsemide 10 mg q12h (for long acting effect as patient sometimes refuses meds) Status: Acute (2) Hyponatremia Assessment & Plan: In the setting of decompensated CHF; worsening, poor prognostic sign; will give dose of tolvaptan 15 mg (elevated transaminases but has been improving consistently and T bili/coags indicative of preserved synthetic function); Status: Acute (3) CHF (congestive heart failure) Assessment & Plan: Severely decompensated systolic CHF, on inotropic support since yesterday; as mentioned above, need to continue pre-load reduction with diuresis to achieve ~ 2lbs weight loss per day; f/u with cardiology regarding B-melissa dosing; Status: Chronic (4) Metabolic acidosis Assessment & Plan: Non-gap acidosis, was previously having diarrhea, unclear if still persists; cannot give sodium bicarb without worsening volume status; will give calcium carbonate 600 mg q8h (may help her questionable diarrhea as well); Status: Acute (5) Sepsis Assessment & Plan: On linezolid for VRE, no renal dose adjustment needed; Status: Acute
--- NOTE | 2016-10-22 16:39 | US ---
HISTORY: rule out biliary tree obstruction COMPARISON: Comparison made with abdominal ultrasound 10/14/[address] scan of the abdomen and pelvis dated 10/13/2016. Comparison also made with chest radiograph 10/21/2016 TECHNIQUE: Sonographic evaluation of the abdomen. FINDINGS: LIVER: Measures approximately 13.6 cm in CC dimension. Liver demonstrates relatively smooth contour however increased echotexture which may be secondary fatty hepatic infiltration. Possibility of other infiltrative hepatocellular disease process not excluded. No obvious mass or collection. . . Right-sided pleural effusion felt to be present. Suspect left-sided effusion however small amount of perisplenic ascites not excluded. GALLBLADDER: Status post cholecystectomy. COMMON BILE DUCT: Common bile duct measures approximately 4.2 mm. Mm. No stones. No dilatation. PANCREAS: Unremarkable as visualized. No mass. No ductal dilatation. RIGHT KIDNEY: Measures approximately 11.2 x 4.9 x 6.1 cm. Normal echogenicity. No calculus, mass, or hydronephrosis. LEFT KIDNEY: Measures approximately 10.2 x 5.7 x 5.8cm. Normal echogenicity. No calculus, mass, or hydronephrosis. SPLEEN: Exhibits normal size and attenuation pattern without mass collection or calcification. AORTA: Not visualized IVC: IVC not visualized OTHER FINDINGS: None. IMPRESSION: Findings most likely represent fatty infiltration however other infiltrative hepatocellular disease process not excluded. Status post cholecystectomy. Right-sided pleural effusion felt to be present. Suspect left-sided effusion however small amount of perisplenic ascites not excluded.
[2016-10-22] MEDS: DOBUTamine 500mg/250ml D5W 500 MG/250 ML BAG IV PRN (18:36)
[2016-10-22 22:02] LABS: CORTISOL AM 46.4 ug/dL (4.46-22.7)
[2016-10-23] MEDS: Insulin Lispro (humaLOG) MEDIUM Coverage SC SCH ×4 (08:53→22:18)
[2016-10-23 08:56] LABS: BASO # 0.01 K/mm3 (0.0-2.0); BASO % 0.1 % (0.0-3.0); EOS # 0.1 (0.0-0.7); EOS % 0.3 % (1.5-5.0); GRAN # 12.55 (1.4-6.5); GRAN % 76.4 % (50.0-68.0); HEMOGLOBIN 10.8 gm/dL (12.0-16.0); LYMPH # 2.6 (1.2-3.4); LYMPH % 15.7 % (22.0-35.0); MEAN CELL VOLUME 75.7 fL (80.0-105.0); MEAN CORPUSCULAR HGB CONC 34.3 g/dl (31.0-37.0); MEAN PLATELET VOLUME 9.9 fl (7.0-11.0); MONO # 1.2 (0.1-0.6); MONO % 7.5 % (1.0-6.0); PLATELET COUNT 421 10^3/uL (120.0-450.0); RBC 4.16 10^6/uL (3.5-6.1); RED CELL DISTRIBUTION WIDTH 20.3 % (11.5-14.5); WHITE BLOOD COUNT 16.4 10^3/ul (4.5-11.0)
[2016-10-23 09:10] LABS: ALB/GLOB RATIO 0.9 (1.1-1.8); ALBUMIN 2.9 g/dL (3.0-4.8); CALCIUM 8.8 mg/dL (8.4-10.5); MAGNESIUM 1.9 mg/dL (1.7-2.2)
[2016-10-23] MEDS: Lactobacillus Acidophilus 500 MU Cap PO SCH ×2 (10:13→17:38)
[2016-10-23] MEDS: guaiFENesin 600 mg ER Tab PO SCH ×2 (10:13→17:38)
[2016-10-23] MEDS: Insulin Detemir 100 units/ml Vial (Levemir) SC SCH (10:14)
--- NOTE | 2016-10-23 10:26 | CARD ---
APPROVED REPORT EKG Measurement Heart [id number] <Conclusion> Normal sinus rhythm Possible Left atrial enlargement Left bundle branch block Abnormal ECG
[2016-10-23] MEDS: Levothyroxine 125 MCG TAB PO SCH (11:05)
[2016-10-23] MEDS: Linezolid 600 mg in D5W 300 ml 600 MG/300 ML BAG IVPB SCH ×2 (11:05→22:00)
--- NOTE | 2016-10-23 11:14 | CP.PCM.PN ---
Subjective - Date & Time of Evaluation Date of Evaluation: 10/23/16 Time of Evaluation: 10:10 - Subjective Subjective: Comfortable on a chair, not in distress but having watery stools. Objective - Vital Signs/Intake and Output Vital Signs (last 24 hours): Temp Pulse Resp BP Pulse Ox 97 F L 62 19 119/67 100 10/23/16 00:01 10/23/16 00:01 10/23/16 00:01 10/23/16 06:53 10/22/16 06:00 Intake and Output: 10/23/16 10/23/16 06:59 18:59 Output Total 100 Balance -100 - Medications Medications: Current Medications Apixaban (Eliquis) 2.5 mg PO BID [facility] Last Admin: 10/22/16 18:29 Dose: 2.5 mg Calcium Carbonate (Caltrate) 600 mg PO Q8H [facility] Last Admin: 10/23/16 06:54 Dose: 600 mg Furosemide (Lasix) 40 mg IVP Q8H [facility] Last Admin: 10/23/16 06:53 Dose: 40 mg Guaifenesin (Mucinex La) 600 mg PO BID [facility] Last Admin: 10/22/16 18:24 Dose: 600 mg Dobutamine HCl/Dextrose (Dobutamine/Dextrose 5% 500mg/250ml) 500 mg in 250 mls @ 12.995 mls/hr IV .[id number] PRN; Protocol; 5 MCG/KG/MIN PRN Reason: TITRATE PER PROTOCOL Last Admin: 10/22/16 18:36 Dose: 12.995 mls/hr Linezolid (Zyvox 600mg/300ml D5w) 600 mg in 300 mls @ 200 mls/hr IVPB Q12 [facility] PRN Reason: Protocol Stop: 10/28/16 22:01 Last Admin: 10/22/16 23:02 Dose: 200 mls/hr Insulin Detemir (Levemir) 24 unit SC DAILY [facility] Last Admin: 10/22/16 10:08 Dose: 24 unit Insulin Human Lispro (Humalog Med) 0 units SC ACHS [facility] PRN Reason: Protocol Last Admin: 10/22/16 22:36 Dose: Not Given Lactobacillus Acidophilus (Bacid Acidophilus) 1 cap PO BID [facility] Last Admin: 10/22/16 18:24 Dose: 1 cap Lorazepam (Ativan) 0.25 mg PO HS [facility] PRN Reason: Protocol Metoprolol Tartrate (Lopressor) 50 mg PO BID [facility] Last Admin: 10/22/16 18:29 Dose: Not Given Pantoprazole Sodium (Protonix Inj) 40 mg IVP 0600 [facility] Last Admin: 10/23/16 06:53 Dose: 40 mg Polyethylene Glycol (Miralax) 17 gm PO BID [facility] Last Admin: 10/21/16 19:12 Dose: Not Given Risperidone (Risperdal Tab) 1 mg PO HS [facility] PRN Reason: Protocol Last Admin: 10/18/16 21:17 Dose: 1 mg Torsemide (Demadex) 10 mg PO Q12H [facility] Last Admin: 10/23/16 06:54 Dose: 10 mg - Labs Labs: 10/22/16 13:02 10/22/16 13:02 PT 12.0 Seconds (9.9-11.8) H 10/20/16 09:29 INR 1.11 (0.93-1.08) H 10/20/16 09:29 APTT 27.8 Seconds (23.7-30.8) 10/20/16 09:29 - Constitutional Appears: Non-toxic, No Acute Distress - Head Exam Head Exam: NORMAL INSPECTION - Neck Exam Neck Exam: absent: Meningismus - Respiratory Exam Respiratory Exam: Decreased Breath Sounds - Cardiovascular Exam Cardiovascular Exam: +S1, +S2 - GI/Abdominal Exam GI & Abdominal Exam: Soft. absent: Tenderness Assessment and Plan - Assessment and Plan (Free Text) Plan: Assessment S/P severe sepsis S/P hypoxic ventilator-dependent respiratory failure probably due to bilateral lower lobe healthcare-associated pneumonia with possible gram positive cocci, gram negative bacilli and/or atypical organisms, with associated hyperglycemic, hyperosmolar state with also acute pancreatitis, etiology to be determined - clinically improved and now off antibiotics - had hypotensive episodes probably meds-related VRE in the urine Diarrhea, R/O C. diff. associated elevated Alk phos and transaminases in a patient with pancreatitis R/O biliary tree obstruction history of healthcare-associated pneumonia, right middle lobe history of bilateral healthcare-associated pneumonia in this patient chronic heart failure S/P acute cholecystitis, S/P laparoscopic cholecystectomy CAD with chronic CHF DM HTN history of migraines bipolar disorder Plan S/P 6 days of Merrem and Doxycycline; cultures have been negative; reviewed CT abdomen; would recommend ultrasound of abdomen (repeat) and if that is negative , an MRCP on Zyvox day 2 and follow up repeat urine cx check stool for C. diff and start PO Vancomycin for now will continue to monitor clinically
[2016-10-23] MEDS ORDERED: DOBUTamine 500mg/250ml D5W 500 MG/250 ML BAG IV PRN (11:19)
--- NOTE | 2016-10-23 12:30 | CP.PCM.PN ---
<Lico Dasilva - Last Filed: 10/23/16 15:58> Subjective - Date & Time of Evaluation Date of Evaluation: 10/23/16 Time of Evaluation: 12:25 - Subjective Subjective: Patient has been seen and examined. Last night patient complained of pain on her chest where they daisy blood. She states that pain has improved. Patient states that she still has diarrhea. She continues to complain of abdominal pain. Denies Chest pain, SOB, N/V, fevers, or chills. Objective - Vital Signs/Intake and Output Vital Signs (last 24 hours): Temp Pulse Resp BP Pulse Ox 97.5 F L 92 H 18 119/67 100 10/23/16 06:00 10/23/16 06:00 10/23/16 06:00 10/23/16 06:53 10/23/16 06:00 Intake and Output: 10/23/16 10/23/16 06:59 18:59 Output Total 100 Balance -100 - Medications Medications: Current Medications Apixaban (Eliquis) 2.5 mg PO BID [facility] Last Admin: 10/23/16 10:13 Dose: 2.5 mg Calcium Carbonate (Caltrate) 600 mg PO Q8H [facility] Last Admin: 10/23/16 06:54 Dose: 600 mg Furosemide (Lasix) 40 mg IVP Q8H [facility] Last Admin: 10/23/16 06:53 Dose: 40 mg Guaifenesin (Mucinex La) 600 mg PO BID [facility] Last Admin: 10/23/16 10:13 Dose: 600 mg Linezolid (Zyvox 600mg/300ml D5w) 600 mg in 300 mls @ 200 mls/hr IVPB Q12 [facility] PRN Reason: Protocol Stop: 10/28/16 22:01 Last Admin: 10/23/16 11:05 Dose: 200 mls/hr Dobutamine HCl/Dextrose (Dobutamine/Dextrose 5% 500mg/250ml) 500 mg in 250 mls @ 6.124 mls/hr IV .Q24H PRN; Protocol; 2.5 MCG/KG/MIN PRN Reason: TITRATE PER PROTOCOL Insulin Detemir (Levemir) 24 unit SC DAILY [facility] Last Admin: 10/23/16 10:14 Dose: 24 unit Insulin Human Lispro (Humalog Med) 0 units SC ACHS [facility] PRN Reason: Protocol Last Admin: 10/23/16 08:53 Dose: Not Given Lactobacillus Acidophilus (Bacid Acidophilus) 1 cap PO BID [facility] Last Admin: 10/23/16 10:13 Dose: 1 cap Levothyroxine Sodium (Synthroid) 125 mcg PO ACB [facility] Last Admin: 10/23/16 11:05 Dose: Not Given Lorazepam (Ativan) 0.25 mg PO HS [facility] PRN Reason: Protocol Metoprolol Tartrate (Lopressor) 50 mg PO BID [facility] Last Admin: 10/23/16 10:15 Dose: Not Given Pantoprazole Sodium (Protonix Inj) 40 mg IVP 0600 [facility] Last Admin: 10/23/16 06:53 Dose: 40 mg Polyethylene Glycol (Miralax) 17 gm PO BID [facility] Last Admin: 10/21/16 19:12 Dose: Not Given Risperidone (Risperdal Tab) 1 mg PO HS [facility] PRN Reason: Protocol Last Admin: 10/18/16 21:17 Dose: 1 mg Torsemide (Demadex) 10 mg PO Q12H [facility] Last Admin: 10/23/16 06:54 Dose: 10 mg Vancomycin HCl (Vancocin 25 Mg/Ml (Oral Use)) 125 mg PO QID [facility] PRN Reason: Protocol - Labs Labs: 10/23/16 08:50 10/23/16 08:50 PT 12.0 Seconds (9.9-11.8) H 10/20/16 09:29 INR 1.11 (0.93-1.08) H 10/20/16 09:29 APTT 27.8 Seconds (23.7-30.8) 10/20/16 09:29 - Constitutional Appears: Non-toxic, No Acute Distress - Head Exam Head Exam: ATRAUMATIC, NORMOCEPHALIC - Respiratory Exam Respiratory Exam: Clear to Ausculation Bilateral. absent: Rhonchi, Wheezes, Respiratory Distress - Cardiovascular Exam Cardiovascular Exam: +S1, +S2 - GI/Abdominal Exam GI & Abdominal Exam: Distended, Soft, Tenderness, Hypoactive Bowel Sounds - Extremities Exam Extremities Exam: Pedal Edema - Psychiatric Exam Psychiatric exam: Anxious - Skin Additional comments: Lower Extremity Skin Wet. Assessment and Plan - Assessment and Plan (Free Text) Assessment: 51 y/o F with PMH of DM2, CHF with EF of 30%, HTN, chronic pulmonary effusion, HTN, recurrent DVT, PE, hypothyroidism, schizophrenia and bipolar disorder who initially presented with HHS and AMS, now resolved. Pt remains on telemetry, is normotensive and on dobutamine drip. Pt with improved anasarca as Nephrology has started the patient on Lasix 40 mg q8h IV. Pt also urine culture positive for VRE, on Zyvox and followed by ID. LFT's trending downward at this time, abdominal ultrasound on 10/21 showed Findings that most likely represented fatty infiltration, however other infiltrative hepatocellular disease process not excluded. Per ID will consider repeat Abd US. If findings negative than consider MRCP . Patient had diarrhea today, will check stool for c.dif. Patient will continue to be monitored closely. Plan: 1. CHF, decompensated - Continue Lasix 40 mg IV q8h - Dobutamine drip - Fluid restriction 1L - Low salt diet - Strict I's and O's, monitor urine output closely - ECHO (10/18): EF 30%, severe MR, large pleural effusion 2. Hypotension - BP stable overnight, 110/70 - Continue dobutamine (Rate 2.5) - Cardiology consulted 3. UTI - Urine Cx - VRE - Zyvox day 3 4. Hyponatremia - Fluid restriction, 1 L - Awaiting urine electrolytes - Nephrology consulted 5. DM2, - Levemir 24 units daily - ISS - monitor closely AMS - Continue holding Ativan and Risperidone for hypotension Transaminits - Secondary to hypotension - LFT's trending down - Consider Repeat US. If negative, consider MRCP - hepatitis panel negative - GI following Lico Dasilva PGY-1 Patient seen, reviewed, and discussed with attending <Anne Marie Moran - Last Filed: 10/23/16 20:59> Objective - Vital Signs/Intake and Output Vital Signs (last 24 hours): Temp Pulse Resp BP Pulse Ox 97.9 F 85 17 108/49 L 100 10/23/16 17:32 10/23/16 18:00 10/23/16 17:32 10/23/16 17:32 10/23/16 06:00 Intake and Output: 10/23/16 10/24/16 18:59 06:59 Intake Total 960 Output Total 4400 Balance -3440 - Medications Medications: Current Medications Apixaban (Eliquis) 2.5 mg PO BID [facility] Last Admin: 10/23/16 17:40 Dose: 2.5 mg Calcium Carbonate (Caltrate) 600 mg PO Q8H [facility] Last Admin: 10/23/16 13:47 Dose: Not Given Furosemide (Lasix) 40 mg IVP Q8H [facility] Last Admin: 10/23/16 13:32 Dose: 40 mg Guaifenesin (Mucinex La) 600 mg PO BID [facility] Last Admin: 10/23/16 17:38 Dose: Not Given Linezolid (Zyvox 600mg/300ml D5w) 600 mg in 300 mls @ 200 mls/hr IVPB Q12 [facility] PRN Reason: Protocol Stop: 10/28/16 22:01 Last Admin: 10/23/16 11:05 Dose: 200 mls/hr Dobutamine HCl/Dextrose (Dobutamine/Dextrose 5% 500mg/250ml) 500 mg in 250 mls @ 6.124 mls/hr IV .Q24H PRN; Protocol; 2.5 MCG/KG/MIN PRN Reason: TITRATE PER PROTOCOL Last Admin: 10/23/16 18:31 Dose: 6.124 mls/hr Insulin Detemir (Levemir) 24 unit SC DAILY [facility] Last Admin: 10/23/16 10:14 Dose: 24 unit Insulin Human Lispro (Humalog Med) 0 units SC ACHS [facility] PRN Reason: Protocol Last Admin: 10/23/16 17:36 Dose: 1 units Lactobacillus Acidophilus (Bacid Acidophilus) 1 cap PO BID [facility] Last Admin: 10/23/16 17:38 Dose: Not Given Levothyroxine Sodium (Synthroid) 125 mcg PO ACB [facility] Last Admin: 10/23/16 11:05 Dose: Not Given Lorazepam (Ativan) 0.25 mg PO HS [facility] PRN Reason: Protocol Metoprolol Tartrate (Lopressor) 50 mg PO BID [facility] Last Admin: 10/23/16 10:15 Dose: Not Given Pantoprazole Sodium (Protonix Inj) 40 mg IVP 0600 [facility] Last Admin: 10/23/16 06:53 Dose: 40 mg Polyethylene Glycol (Miralax) 17 gm PO BID [facility] Last Admin: 10/21/16 19:12 Dose: Not Given Risperidone (Risperdal Tab) 1 mg PO HS [facility] PRN Reason: Protocol Last Admin: 10/18/16 21:17 Dose: 1 mg Torsemide (Demadex) 10 mg PO Q12H [facility] Last Admin: 10/23/16 17:36 Dose: Not Given Vancomycin HCl (Vancocin 25 Mg/Ml (Oral Use)) 125 mg PO QID [facility] PRN Reason: Protocol Last Admin: 10/23/16 17:38 Dose: 125 mg - Labs Labs: 10/23/16 08:50 10/23/16 08:50 PT 12.0 Seconds (9.9-11.8) H 10/20/16 09:29 INR 1.11 (0.93-1.08) H 10/20/16 09:29 APTT 27.8 Seconds (23.7-30.8) 10/20/16 09:29 Attending/Attestation - Attestation I have personally seen and examined this patient.: Yes I have fully participated in the care of the patient.: Yes I have reviewed all pertinent clinical information, including history, physical exam and plan: Yes Notes (Text): 10/23/16 20:55 Patient seen and examined at bedside. Labs, vitals, orders and notes reviewed. Continue current management of hyponatremia with fluid restriction and high dose lasix regimen, monitor I/Os closely. Leukocytosis improving and she remains on zyvox for treatment of VRE in Urine. She reports feeling better with the exception of diarrhea which has increased in frequency today. Previous C.diff test was negative and repeat tests have been sent today. Transaminitis is improving and abd USG consistent with chronic changes. Continue Dobutamine for inotropic support and titrated down to 2.5 mcs today. Multi-speciality follow up ongoing. Agree with remainder of plan as outlined by the resident.
[2016-10-23] MEDS: Vancomycin 25 MG/ML PO SCH ×3 (13:33→22:03)
[2016-10-23] MEDS: DOBUTamine 500mg/250ml D5W 500 MG/250 ML BAG IV PRN ×2 (13:35→18:31)
[2016-10-23] MEDS ORDERED: Tolvaptan 15 MG TAB PO ONE (17:05)
--- NOTE | 2016-10-23 20:00 | CP.PCM.PN ---
Subjective - Date & Time of Evaluation Date of Evaluation: 10/23/16 Time of Evaluation: 18:00 - Subjective Subjective: Patient reports diarrhea still persists; urinating well; Objective - Vital Signs/Intake and Output Vital Signs (last 24 hours): Temp Pulse Resp BP Pulse Ox 97.9 F 85 17 108/49 L 100 10/23/16 17:32 10/23/16 18:00 10/23/16 17:32 10/23/16 17:32 10/23/16 06:00 Intake and Output: 10/23/16 10/24/16 18:59 06:59 Intake Total 960 Output Total 4400 Balance -3440 - Medications Medications: Current Medications Apixaban (Eliquis) 2.5 mg PO BID [facility] Last Admin: 10/23/16 17:40 Dose: 2.5 mg Calcium Carbonate (Caltrate) 600 mg PO Q8H [facility] Last Admin: 10/23/16 13:47 Dose: Not Given Furosemide (Lasix) 40 mg IVP Q8H [facility] Last Admin: 10/23/16 13:32 Dose: 40 mg Guaifenesin (Mucinex La) 600 mg PO BID [facility] Last Admin: 10/23/16 17:38 Dose: Not Given Linezolid (Zyvox 600mg/300ml D5w) 600 mg in 300 mls @ 200 mls/hr IVPB Q12 [facility] PRN Reason: Protocol Stop: 10/28/16 22:01 Last Admin: 10/23/16 11:05 Dose: 200 mls/hr Dobutamine HCl/Dextrose (Dobutamine/Dextrose 5% 500mg/250ml) 500 mg in 250 mls @ 6.124 mls/hr IV .Q24H PRN; Protocol; 2.5 MCG/KG/MIN PRN Reason: TITRATE PER PROTOCOL Last Admin: 10/23/16 18:31 Dose: 6.124 mls/hr Insulin Detemir (Levemir) 24 unit SC DAILY [facility] Last Admin: 10/23/16 10:14 Dose: 24 unit Insulin Human Lispro (Humalog Med) 0 units SC ACHS [facility] PRN Reason: Protocol Last Admin: 10/23/16 17:36 Dose: 1 units Lactobacillus Acidophilus (Bacid Acidophilus) 1 cap PO BID [facility] Last Admin: 10/23/16 17:38 Dose: Not Given Levothyroxine Sodium (Synthroid) 125 mcg PO ACB [facility] Last Admin: 10/23/16 11:05 Dose: Not Given Lorazepam (Ativan) 0.25 mg PO HS [facility] PRN Reason: Protocol Metoprolol Tartrate (Lopressor) 50 mg PO BID [facility] Last Admin: 10/23/16 10:15 Dose: Not Given Pantoprazole Sodium (Protonix Inj) 40 mg IVP 0600 [facility] Last Admin: 10/23/16 06:53 Dose: 40 mg Polyethylene Glycol (Miralax) 17 gm PO BID [facility] Last Admin: 10/21/16 19:12 Dose: Not Given Risperidone (Risperdal Tab) 1 mg PO HS [facility] PRN Reason: Protocol Last Admin: 10/18/16 21:17 Dose: 1 mg Torsemide (Demadex) 10 mg PO Q12H [facility] Last Admin: 10/23/16 17:36 Dose: Not Given Vancomycin HCl (Vancocin 25 Mg/Ml (Oral Use)) 125 mg PO QID [facility] PRN Reason: Protocol Last Admin: 10/23/16 17:38 Dose: 125 mg - Labs Labs: 10/23/16 08:50 10/23/16 08:50 PT 12.0 Seconds (9.9-11.8) H 10/20/16 09:29 INR 1.11 (0.93-1.08) H 10/20/16 09:29 APTT 27.8 Seconds (23.7-30.8) 10/20/16 09:29 - Constitutional Appears: Non-toxic, No Acute Distress - Head Exam Head Exam: NORMAL INSPECTION - Eye Exam Eye Exam: Normal appearance - Respiratory Exam Respiratory Exam: absent: Rhonchi, Wheezes, NORMAL BREATHING PATTERN Additional comments: minimal basal rales - Cardiovascular Exam Cardiovascular Exam: REGULAR RHYTHM, +S1, +S2. absent: Gallop - GI/Abdominal Exam GI & Abdominal Exam: Distended, Soft - Extremities Exam Extremities Exam: Normal Capillary Refill Additional comments: markedly edematous legs extending to abd/lower back; - Neurological Exam Neurological Exam: Alert, Awake - Psychiatric Exam Psychiatric exam: Agitated - Skin Skin Exam: Normal Color, Warm. absent: Cyanosis Assessment and Plan (1) Acute renal failure Assessment & Plan: Cardiorenal etiology, renal function stable over last 2 days despite aggressive diuresis; will contine the same although may need to increase lasix dose if no significant response in edema; Status: Acute (2) Hyponatremia Assessment & Plan: Persistent in the setting of severe CHF; no significant response to tolvaptan 15 mg given yesterday, giving another dose of 15 mg today; continue free water restriction for now (generally not supposed to fluid restrict with tolvaptan but if med dose not being effective, lack of fluid restriction will make hyponatremia worse); Status: Acute (3) CHF (congestive heart failure) Assessment & Plan: Severely decompensated systolic CHF, on inotropic support with dobutamine and is at least clinically stabilized; continue B-blockers per cardio recs, will continue to aggressively diurese (on torsemide bid and IV lasix because she sometime refuses lasix); avoiding aldactone in setting of persistent hyponatremia; Status: Chronic (4) Metabolic acidosis Assessment & Plan: Non-AG, due to diarrhea, somewhat improved after starting calcium carbonate; continue the same; Status: Acute (5) Sepsis Assessment & Plan: On linezolid for VRE in urine, no renal dose adjustment needed; Status: Acute
--- NOTE | 2016-10-24 02:29 | PN ---
DATE: 10/23/2016 D[address]ation on behalf of Dr. Servando Sidhu who is currently on vacation. SUBJECTIVE: I saw Ms. Penn this morning. She is a 51-year-old white female with multiple complaints including septic shock, severe cardiomyopathy, mitral valve regurgitation, hepatic low-flow phenomenon, which gave rise to elevation of LFTs, currently being treated by multiple consultants. I reviewed this case with Dr. Moran yesterday as well as Dr. Sidhu on Monday before he left. 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 I reviewed this patient's laboratory data. PHYSICAL EXAMINATION HEART: Irregular rhythm. LUNGS: The lungs indicate decreased breath sounds about one-third in the apex bilaterally. ABDOMEN: Still protuberant and exhibiting tenderness diffusely, but no significant guarding noted. LABORATORY DATA: Review of laboratory data indicated that her sugar has come down over the past couple of days. Transaminases as of yesterday, AST and ALT ratio of 130:524 with an alkaline phosphatase of 927. Previous value alkaline phosphatase 1167 with AST and ALT ratio of 327:682, therefore significant improvement has been made. The bilirubin is still on a range of 1-1.5. I noted also that her B natriuretic peptide on 10/21/2016 was 16,000. Review of the CBC indicates an improvement from 26,000 initially on 10/16/2016, and over the past couple of days it has fluctuated, it is currently as of yesterday back up at 21,000. Laboratory data is pending for this morning. Reason for the increase in white count is unclear; however, the patient appears to have symptoms of abdominal pain and diarrhea. ASSESSMENT AND PLAN: This is a 51-year-old female with multiple comorbidities, now with cardiomyopathy, septic shock, elevated transaminases probably due to hepatic low-flow phenomenon, these are currently improving. We will continue to check the LFT trends, especially in view of the fact that the hepatitis profile has been negative. Reason for the abdominal pain is unclear at the current time point. However, there may be some degree of bowel ischemia. After our discussion with nurses this morning, nurses do feel she is making some progress. In view of the orders as well as the laboratory data has in her side. In view of the diarrhea, I have ordered a C. diff toxin to be performed. One might consider evaluation by the ID service. Followup by Cardiology is also suggested. Javon Arroyo DO, PhD GINA
[2016-10-24] MEDS: Levothyroxine 125 MCG TAB PO SCH (07:30)
[2016-10-24] MEDS: Insulin Detemir 100 units/ml Vial (Levemir) SC SCH (11:35)
[2016-10-24] MEDS: Vancomycin 25 MG/ML PO SCH (11:35)
[2016-10-24] MEDS: Insulin Lispro (humaLOG) MEDIUM Coverage SC SCH ×3 (11:36→22:32)
[2016-10-24] MEDS: Lactobacillus Acidophilus 500 MU Cap PO SCH ×3 (11:36→18:39)
[2016-10-24] MEDS: guaiFENesin 600 mg ER Tab PO SCH ×3 (11:36→18:40)
[2016-10-24] MEDS: Linezolid 600 mg in D5W 300 ml 600 MG/300 ML BAG IVPB SCH (11:37)
--- NOTE | 2016-10-24 13:24 | CP.PCM.PN ---
Subjective - Date & Time of Evaluation Date of Evaluation: 10/24/16 Time of Evaluation: 09:55 - Subjective Subjective: Comfortable in bed, not in distress, afebrile, has not had dysuria, even in the past several days, was complaining of loose stools but now the stools are formed. Objective - Vital Signs/Intake and Output Vital Signs (last 24 hours): Temp Pulse Resp BP Pulse Ox 97 F L 106 H 19 100/54 L 96 10/24/16 00:01 10/24/16 06:00 10/24/16 00:01 10/24/16 05:44 10/24/16 00:01 Intake and Output: 10/23/16 10/24/16 18:59 06:59 Intake Total 960 240 Output Total 4400 150 Balance -3440 90 - Medications Medications: Current Medications Apixaban (Eliquis) 2.5 mg PO BID [facility] Last Admin: 10/23/16 17:40 Dose: 2.5 mg Calcium Carbonate (Caltrate) 600 mg PO Q8H [facility] Last Admin: 10/24/16 05:51 Dose: 600 mg Furosemide (Lasix) 40 mg IVP Q8H [facility] Last Admin: 10/24/16 05:44 Dose: Not Given Guaifenesin (Mucinex La) 600 mg PO BID [facility] Last Admin: 10/23/16 17:38 Dose: Not Given Linezolid (Zyvox 600mg/300ml D5w) 600 mg in 300 mls @ 200 mls/hr IVPB Q12 [facility] PRN Reason: Protocol Stop: 10/28/16 22:01 Last Admin: 10/23/16 22:00 Dose: 200 mls/hr Dobutamine HCl/Dextrose (Dobutamine/Dextrose 5% 500mg/250ml) 500 mg in 250 mls @ 6.124 mls/hr IV .Q24H PRN; Protocol; 2.5 MCG/KG/MIN PRN Reason: TITRATE PER PROTOCOL Last Admin: 10/23/16 18:31 Dose: 6.124 mls/hr Insulin Detemir (Levemir) 24 unit SC DAILY [facility] Last Admin: 10/23/16 10:14 Dose: 24 unit Insulin Human Lispro (Humalog Med) 0 units SC ACHS [facility] PRN Reason: Protocol Last Admin: 10/23/16 22:18 Dose: Not Given Lactobacillus Acidophilus (Bacid Acidophilus) 1 cap PO BID [facility] Last Admin: 10/23/16 17:38 Dose: Not Given Levothyroxine Sodium (Synthroid) 125 mcg PO ACB [facility] Last Admin: 10/23/16 11:05 Dose: Not Given Lorazepam (Ativan) 0.25 mg PO HS [facility] PRN Reason: Protocol Metoprolol Tartrate (Lopressor) 50 mg PO BID [facility] Last Admin: 10/23/16 10:15 Dose: Not Given Pantoprazole Sodium (Protonix Inj) 40 mg IVP 0600 [facility] Last Admin: 10/24/16 05:52 Dose: 40 mg Polyethylene Glycol (Miralax) 17 gm PO BID [facility] Last Admin: 10/21/16 19:12 Dose: Not Given Risperidone (Risperdal Tab) 1 mg PO HS [facility] PRN Reason: Protocol Last Admin: 10/18/16 21:17 Dose: 1 mg Torsemide (Demadex) 10 mg PO Q12H [facility] Last Admin: 10/24/16 05:52 Dose: 10 mg Vancomycin HCl (Vancocin 25 Mg/Ml (Oral Use)) 125 mg PO QID [facility] PRN Reason: Protocol Last Admin: 10/23/16 22:03 Dose: 125 mg - Labs Labs: 10/23/16 08:50 10/23/16 08:50 PT 12.0 Seconds (9.9-11.8) H 10/20/16 09:29 INR 1.11 (0.93-1.08) H 10/20/16 09:29 APTT 27.8 Seconds (23.7-30.8) 10/20/16 09:29 - Constitutional Appears: Non-toxic, No Acute Distress - Head Exam Head Exam: NORMAL INSPECTION - ENT Exam ENT Exam: Mucous Membranes Moist - Neck Exam Neck Exam: absent: Meningismus - Respiratory Exam Respiratory Exam: Decreased Breath Sounds - Cardiovascular Exam Cardiovascular Exam: +S1, +S2 - GI/Abdominal Exam GI & Abdominal Exam: Soft. absent: Tenderness Assessment and Plan - Assessment and Plan (Free Text) Plan: Assessment S/P severe sepsis S/P hypoxic ventilator-dependent respiratory failure probably due to bilateral lower lobe healthcare-associated pneumonia with possible gram positive cocci, gram negative bacilli and/or atypical organisms, with associated hyperglycemic, hyperosmolar state with also acute pancreatitis, etiology to be determined - clinically improved and now off antibiotics - had hypotensive episodes probably meds-related VRE in the urine, probably asymptomatic bacteriuria loose bowel movement, with negative C. diff. stool study elevated Alk phos and transaminases in a patient with pancreatitis as well as hepatic congestion history of healthcare-associated pneumonia, right middle lobe history of bilateral healthcare-associated pneumonia in this patient chronic heart failure S/P acute cholecystitis, S/P laparoscopic cholecystectomy CAD with chronic CHF DM HTN history of migraines bipolar disorder Plan S/P 6 days of Merrem and Doxycycline; cultures have been negative; reviewed CT abdomen; reviewed GI evaluation regarding elevated AST, ALT and Alk Phos patient was started on Zyvox - will d/c and follow up repeat urine cx and observe off antibiotics will continue to monitor clinically
--- NOTE | 2016-10-24 17:17 | CP.PCM.PN ---
<SAROJ FLYNN - Last Filed: 10/24/16 19:22> Subjective - Date & Time of Evaluation Date of Evaluation: 10/24/16 Time of Evaluation: 10:30 - Subjective Subjective: patient was seen and examined at bedside. Pt still complaining of pain in her extremities but denies shortness of breath, chest pain, diarrhea, fevers, chills. Pt also complains about having to give blood because it hurts to draw the blood through her edematous hands. Objective - Vital Signs/Intake and Output Vital Signs (last 24 hours): Temp Pulse Resp BP Pulse Ox 97.8 F 96 H 20 114/53 L 96 10/24/16 12:00 10/24/16 12:00 10/24/16 12:00 10/24/16 12:00 10/24/16 00:01 Intake and Output: 10/24/16 10/24/16 06:59 18:59 Intake Total 1052 Output Total 300 Balance 752 - Medications Medications: Current Medications Apixaban (Eliquis) 2.5 mg PO BID [facility] Last Admin: 10/24/16 11:36 Dose: 2.5 mg Calcium Carbonate (Caltrate) 600 mg PO Q8H [facility] Last Admin: 10/24/16 05:51 Dose: 600 mg Furosemide (Lasix) 80 mg IVP Q8H [facility] Guaifenesin (Mucinex La) 600 mg PO BID [facility] Last Admin: 10/24/16 11:49 Dose: Not Given Dobutamine HCl/Dextrose (Dobutamine/Dextrose 5% 500mg/250ml) 500 mg in 250 mls @ 6.124 mls/hr IV .Q24H PRN; Protocol; 2.5 MCG/KG/MIN PRN Reason: TITRATE PER PROTOCOL Last Admin: 10/23/16 18:31 Dose: 6.124 mls/hr Insulin Detemir (Levemir) 24 unit SC DAILY [facility] Last Admin: 10/24/16 11:35 Dose: 24 unit Insulin Human Lispro (Humalog Med) 0 units SC ACHS [facility] PRN Reason: Protocol Last Admin: 10/24/16 11:36 Dose: 10 units Lactobacillus Acidophilus (Bacid Acidophilus) 1 cap PO BID [facility] Last Admin: 10/24/16 11:50 Dose: Not Given Levothyroxine Sodium (Synthroid) 125 mcg PO ACB [facility] Last Admin: 10/24/16 07:30 Dose: Not Given Lorazepam (Ativan) 0.25 mg PO HS [facility] PRN Reason: Protocol Metoprolol Tartrate (Lopressor) 50 mg PO BID [facility] Last Admin: 10/23/16 10:15 Dose: Not Given Pantoprazole Sodium (Protonix Inj) 40 mg IVP 0600 [facility] Last Admin: 10/24/16 05:52 Dose: 40 mg Polyethylene Glycol (Miralax) 17 gm PO BID [facility] Last Admin: 10/21/16 19:12 Dose: Not Given Risperidone (Risperdal Tab) 1 mg PO HS [facility] PRN Reason: Protocol Last Admin: 10/18/16 21:17 Dose: 1 mg Torsemide (Demadex) 10 mg PO Q12H [facility] Last Admin: 10/24/16 05:52 Dose: 10 mg - Labs Labs: 10/23/16 08:50 10/23/16 08:50 PT 12.0 Seconds (9.9-11.8) H 10/20/16 09:29 INR 1.11 (0.93-1.08) H 10/20/16 09:29 APTT 27.8 Seconds (23.7-30.8) 10/20/16 09:29 - Additional Findings Additional findings: - Constitutional Appears: No Acute Distress, Unkempt, Older Than Stated Age, Chronically Ill - Head Exam Head Exam: ATRAUMATIC, NORMOCEPHALIC - Eye Exam Eye Exam: EOMI, Normal appearance, PERRL. absent: Periorbital swelling, Scleral icterus Pupil Exam: NORMAL ACCOMODATION, PERRL - ENT Exam ENT Exam: Mucous Membranes Moist, Normal Exam - Respiratory Exam Respiratory Exam: Rales, NORMAL BREATHING PATTERN. absent: Accessory Muscle Use , Chest Wall Tenderness, Wheezes, Respiratory Distress, Stridor - Cardiovascular Exam Cardiovascular Exam: RRR, +S1, +S2. absent: Gallop, JVD, Rubs, Murmur - GI/Abdominal Exam GI & Abdominal Exam: Soft, Normal Bowel Sounds. absent: Distended, Guarding Additional comments: pt is obese - Extremities Exam Extremities Exam: Pedal Edema Additional comments: edema +2 x4 extremities - Neurological Exam Neurological Exam: Alert (more alert than prior exam), Awake - Skin Skin Exam: Mottled, Normal Color, Warm (pt is under covers and warmer than usual ). absent: Cyanosis, Diaphoretic Assessment and Plan - Assessment and Plan (Free Text) Plan: 51 y/o female with PMHx of DM2, CHF (EF 30% in 10/2016), HTN, chronic pulmonary effusion, HTN, DVT, PE, hypothyroidism, PSH of lap mitchell in 05/2016 and psych hx of schizophrenia and Bipolar disorder presented to the ED with complaints of abdominal pain x1week. Patient was extubated on 10/15, and is on tele. HHS improved, pt extubated and in NAD, increased edema in all 4 extremities. s/p 7 days of Doxycycline and 6 days of Meronepem. Anasarca - hold fluids - Lasix 80mg Q8, per nephro - Torsemide 20mg Q12 for added diuresis, per nephro - ECHO (10/18): EF 30%, severe MR, large pleural effusion - Pulm consulted, recs appreciated - Nephro consulted, recs appreciated Hypotension - cont dobutamine 2.5 mcg/kg/min, per cards recs - Cards consulted, recs appreciated - Pt transferred to tele for closer monitoring of BP - BMP elevated, likely 2/2 decreased perfusion UTI - UCx 10/19 growing VRE - ID consulted: stop Abx and f/u urine cx - Leukocytosis improving (WBC 16.4) Hyperkalemia - labs were not drawn due to patient refusal - consult IR for PICC line for serial labs - prior episode resolved Hyponatremia likely dilutional - labs were not drawn due to patient refusal - monitor BMP - consult IR for PICC line for serial labs - Renal consult, recs appreciated DM2, HONK resolved - FS 300's-460 - Levemir increased to 24u daily, cont Humalog - Lispro 5mg ACHS added - monitor closely AMS - Ativan and Risperidone held - improving, pt is more responsive today Hypothermia - Temp around 97.8F, with lowest being 96.5 on 10/19 - extremities feel warmer today Transaminits likely 2/2 decreased perfuion - AST 115, ALT 472 - hepatitis serologies negative for Hep A, B and C antibodies - GI consult for colitis, recs appreciated Abdominal pain - hepatitis negative, legionella negative - lipase 141, GGT 358 - ALP trending down (949) likely 2/2 decreased perfusion - Hx lap mitchell in May 2016 Diarrhea - started on Lactobacillus Acidophilus - c diff negative - pt on miralax Congested cough - cont Mucinex Dispo: Palliative care nurse discussing with pt and sister in law ([phone] ) regarding advanced directives and dispo; possible meeting with [id number] tomorrow PTX/Eliquis Patient was seen, discussed and evaluated with attending, Dr. Yung Flynn, PGY1 <Katherine Barragan - Last Filed: 10/24/16 21:25> Objective - Vital Signs/Intake and Output Vital Signs (last 24 hours): Temp Pulse Resp BP Pulse Ox 97.8 F 96 H 20 122/60 96 10/24/16 12:00 10/24/16 12:00 10/24/16 12:00 10/24/16 18:40 10/24/16 00:01 - Medications Medications: Current Medications Apixaban (Eliquis) 2.5 mg PO BID [facility] Last Admin: 10/24/16 18:39 Dose: 2.5 mg Calcium Carbonate (Caltrate) 600 mg PO Q8H [facility] Last Admin: 10/24/16 18:41 Dose: Not Given Furosemide (Lasix) 80 mg IVP Q8H [facility] Last Admin: 10/24/16 18:40 Dose: 80 mg Guaifenesin (Mucinex La) 600 mg PO BID [facility] Last Admin: 10/24/16 18:40 Dose: Not Given Dobutamine HCl/Dextrose (Dobutamine/Dextrose 5% 500mg/250ml) 500 mg in 250 mls @ 6.124 mls/hr IV .Q24H PRN; Protocol; 2.5 MCG/KG/MIN PRN Reason: TITRATE PER PROTOCOL Last Admin: 10/23/16 18:31 Dose: 6.124 mls/hr Insulin Detemir (Levemir) 24 unit SC DAILY [facility] Last Admin: 10/24/16 11:35 Dose: 24 unit Insulin Human Lispro (Humalog Med) 0 units SC ACHS [facility] PRN Reason: Protocol Last Admin: 10/24/16 18:39 Dose: 7 units Insulin Human Lispro (Humalog) 5 units SC ACHS [facility] Lactobacillus Acidophilus (Bacid Acidophilus) 1 cap PO BID [facility] Last Admin: 10/24/16 18:39 Dose: 1 cap Levothyroxine Sodium (Synthroid) 125 mcg PO ACB [facility] Last Admin: 10/24/16 07:30 Dose: Not Given Lorazepam (Ativan) 0.25 mg PO HS [facility] PRN Reason: Protocol Metoprolol Tartrate (Lopressor) 50 mg PO BID [facility] Last Admin: 10/23/16 10:15 Dose: Not Given Pantoprazole Sodium (Protonix Inj) 40 mg IVP 0600 [facility] Last Admin: 10/24/16 05:52 Dose: 40 mg Polyethylene Glycol (Miralax) 17 gm PO BID [facility] Last Admin: 10/21/16 19:12 Dose: Not Given Risperidone (Risperdal Tab) 1 mg PO HS [facility] PRN Reason: Protocol Last Admin: 10/18/16 21:17 Dose: 1 mg Torsemide (Demadex) 20 mg PO Q12H [facility] - Labs Labs: 10/23/16 08:50 10/23/16 08:50 PT 12.0 Seconds (9.9-11.8) H 10/20/16 09:29 INR 1.11 (0.93-1.08) H 10/20/16 09:29 APTT 27.8 Seconds (23.7-30.8) 10/20/16 09:29 Attending/Attestation - Attestation I have personally seen and examined this patient.: Yes I have fully participated in the care of the patient.: Yes I have reviewed all pertinent clinical information, including history, physical exam and plan: Yes Notes (Text): 10/24/16 21:14 51 year old female with past medical history of diabetes, CHF, hypertension, DVT /PE, and hypothyroidism who has had extensive hospital course as above. Active issues include hyponatremia and anasarca for which she is being followed by nephrology. She is on lasix and torsemide. She is on fluid restriction. Today's labs are unavailable given she is a hard stick and patient refusal as well. Consider picc line as she needs continuous iv medications and close labs monitoring. She had been hypotensive earlier and is on dobutamine. Will taper off as tolerated and follow up with cardiology recommendations. WBC has been elevated. ID is following and she is now off antibiotics s/p treatment for UTI. Elevated LFTs likely multifactorial. Will continue to monitor. GI is following. She is on levemir for diabetes. Will add lispro AC as well for hyperglycemia. Katherine Barragan MD Hospitalist.
--- NOTE | 2016-10-24 18:38 | US ---
HISTORY: Arm pain and swelling. Evaluate for deep venous thrombosis. PHYSICIAN(S): Kal Peña MD. FINDINGS: The visualized internal jugular veins are sonographically normal and compressible. No evidence of obstruction or thrombus this is seen. The visualized segments of the subclavian veins are patent with normal waveforms. No sonographic evidence of obstruction or thrombosis is seen. The visualized deep venous systems of both upper extremities proximally are sonographically normal and compressible. IMPRESSION: 1. No sonographic evidence for deep venous thrombosis in the visualized segments of both upper strategies.
--- NOTE | 2016-10-24 19:29 | CP.PCM.PN ---
Objective - Vital Signs/Intake and Output Vital Signs (last 24 hours): Temp Pulse Resp BP Pulse Ox 97.8 F 96 H 20 122/60 96 10/24/16 12:00 10/24/16 12:00 10/24/16 12:00 10/24/16 18:40 10/24/16 00:01 - Medications Medications: Current Medications Apixaban (Eliquis) 2.5 mg PO BID [facility] Last Admin: 10/24/16 18:39 Dose: 2.5 mg Calcium Carbonate (Caltrate) 600 mg PO Q8H [facility] Last Admin: 10/24/16 18:41 Dose: Not Given Furosemide (Lasix) 80 mg IVP Q8H [facility] Last Admin: 10/24/16 18:40 Dose: 80 mg Guaifenesin (Mucinex La) 600 mg PO BID [facility] Last Admin: 10/24/16 18:40 Dose: Not Given Dobutamine HCl/Dextrose (Dobutamine/Dextrose 5% 500mg/250ml) 500 mg in 250 mls @ 6.124 mls/hr IV .Q24H PRN; Protocol; 2.5 MCG/KG/MIN PRN Reason: TITRATE PER PROTOCOL Last Admin: 10/23/16 18:31 Dose: 6.124 mls/hr Insulin Detemir (Levemir) 24 unit SC DAILY [facility] Last Admin: 10/24/16 11:35 Dose: 24 unit Insulin Human Lispro (Humalog Med) 0 units SC ACHS [facility] PRN Reason: Protocol Last Admin: 10/24/16 18:39 Dose: 7 units Lactobacillus Acidophilus (Bacid Acidophilus) 1 cap PO BID [facility] Last Admin: 10/24/16 18:39 Dose: 1 cap Levothyroxine Sodium (Synthroid) 125 mcg PO ACB [facility] Last Admin: 10/24/16 07:30 Dose: Not Given Lorazepam (Ativan) 0.25 mg PO HS [facility] PRN Reason: Protocol Metoprolol Tartrate (Lopressor) 50 mg PO BID [facility] Last Admin: 10/23/16 10:15 Dose: Not Given Pantoprazole Sodium (Protonix Inj) 40 mg IVP 0600 [facility] Last Admin: 10/24/16 05:52 Dose: 40 mg Polyethylene Glycol (Miralax) 17 gm PO BID [facility] Last Admin: 10/21/16 19:12 Dose: Not Given Risperidone (Risperdal Tab) 1 mg PO HS [facility] PRN Reason: Protocol Last Admin: 10/18/16 21:17 Dose: 1 mg Torsemide (Demadex) 20 mg PO Q12H [facility] - Labs Labs: 10/23/16 08:50 10/23/16 08:50 PT 12.0 Seconds (9.9-11.8) H 10/20/16 09:29 INR 1.11 (0.93-1.08) H 10/20/16 09:29 APTT 27.8 Seconds (23.7-30.8) 10/20/16 09:29 Assessment and Plan (1) Acute renal failure Status: Acute (2) Hyponatremia Status: Acute (3) CHF (congestive heart failure) Status: Chronic (4) Metabolic acidosis Status: Acute (5) Sepsis Status: Acute
[2016-10-24] MEDS: Insulin Lispro 1 UNITS/0.01 ML SC SCH (22:32)
[2016-10-25] MEDS: Insulin Lispro (humaLOG) MEDIUM Coverage SC SCH (07:30)
[2016-10-25] MEDS ORDERED: Lidocaine 2% Inj (20ml) ONE (08:00)
[2016-10-25] MEDS ORDERED: Iodixanol 320 MG/ML 100 ML BOTTLE IV ONE (08:36)
--- NOTE | 2016-10-25 08:46 | PN ---
DATE: SUBJECTIVE: The patient is mildly short of breath. She is significantly edematous. Denies any chest pain. PHYSICAL EXAMINATION: VITAL SIGNS: Blood pressure 100/54, heart rate 106, temperature 97, respirations 19. HEENT: Facial edema. CHEST: Absent breath sounds at the bases. HEART: S1 and S2, regular. EXTREMITIES: 3+ pitting edema of both the upper and lower extremities. LABORATORY DATA: Today his blood sugars are 278 and 460. Yesterday his BUN and creatinine were 66 and 1.8 respectively. Sodium yesterday was 123. ASSESSMENT: 1. Anasarca. 2. Acute renal insufficiency. 3. Hyponatremia. 4. Rule out nephrotic syndrome. 5. Rule out recurrence of deep venous thrombosis of left subclavian. RECOMMENDATIONS: The case was discussed with *------* who will do the workup for nephrotic syndrome if he considers it to be a clinical issue. Continue to *------* 5 mcg/kg per minute. Continue Demadex *------* twice a day, Eliquis 2.5 mg twice a day, Lasix 80 mg intravenous every 8 hours, Lopressor 50 mg twice a day as well as oral vancomycin and IV Zyvox. I will obtain venous Doppler of the upper extremities. Cesar Kinney MD
[2016-10-25] MEDS: Levothyroxine 125 MCG TAB PO SCH (10:00)
[2016-10-25] MEDS: guaiFENesin 600 mg ER Tab PO SCH ×4 (10:00→18:51)
[2016-10-25] MEDS: Lactobacillus Acidophilus 500 MU Cap PO SCH ×4 (10:01→18:50)
[2016-10-25] MEDS: Insulin Lispro 1 UNITS/0.01 ML SC SCH ×4 (10:01→23:12)
[2016-10-25] MEDS: Insulin Detemir 100 units/ml Vial (Levemir) SC SCH (10:02)
[2016-10-25] MEDS: DOBUTamine 500mg/250ml D5W 500 MG/250 ML BAG IV PRN (11:21)
--- NOTE | 2016-10-25 11:59 | PN ---
DATE: 10/25/2016 SUBJECTIVE: The patient was seen early this morning in room 260, bed 2. No fevers and no chills, had an uneventful night discussion with the patient's nurse who cared for the patient last night. PHYSICAL EXAMINATION VITAL SIGNS: Temperature of 97.4, blood pressure 110/50, respiratory rate of 20, heart rate of 64. HEENT: Unremarkable. NECK: Supple. CARDIOPULMONARY: Normal S1 and S2. LUNGS: Decreased breath sounds. ABDOMEN: Soft, nontender. LABORATORY DATA: Reveals a white count of 16,400, hemoglobin of 10, platelets of 421. Chemistry revealed the patient's creatinine is 1.8. REVIEW OF ORDERS: Reveals the patient to be off of antibiotics. Blood cultures are negative. Stool C. diff and antigen are negative and the patient had an ultrasound with no evidence of DVT. ASSESSMENT AND PLAN: A 51-year-old female with status post severe sepsis, status post hypoxic ventilatory dependent respiratory failure probably secondary to bilateral lower lobe healthcare-associated pneumonia, possible gram-positive cocci, possible gram-negative aaliyah with associated hyperglycemic hyperosmolar state, also acute pancreatitis and currently off of antibiotics, afebrile. However, the patient does have leukocytosis and tachycardia, now has SIRS (systemic inflammatory response syndrome), although the white count as of yesterday is down to 16,000 with a low MCV of 75 and a hemoglobin of 10 and platelets of 421, the differential of the white count is noted. We will continue to monitor the patient. We will follow closely with you. Yehuda Valentino MD
[2016-10-25] MEDS ORDERED: Insulin Lispro 1 UNITS/0.01 ML SC ONE (13:22)
--- NOTE | 2016-10-25 14:16 | VASCULAR ---
PROCEDURE: Ultrasound and fluoroscopically placed left upper extremity PICC line. HISTORY: Diabetic ketoacidosis. UTI. Long-term IV antibiotics. Needs PICC line. PHYSICIAN(S): Kal Peña MD. TECHNIQUE: The relative risks and indications of the procedure were explained to the patient and consent obtained. The patient was placed supine on the arteriogram table and initially the right arm prepped and draped in usual sterile fashion. A tourniquet was applied at the right axilla. Unfortunately, no suitable veins for PICC line placement could be identified in the right upper arm. Subsequently the left arm was prepped and draped in usual sterile fashion. A tourniquet was applied left axilla. Under ultrasound guidance, the left basilic vein was punctured above the elbow. The guidewire would not advance centrally. A micropuncture catheter was placed. A limited venogram was obtained. This revealed occlusive disease and collaterals involving the left basilic vein in the upper arm. Unfortunately the collaterals could not be crossed with angled glidewire. The occluded segment of the left basilic vein was crossed with an angled Glidewire. 0.035 support wire was placed the IVC. The left basilic vein was dilated with 7 [place] long dilator. A 5 [place] single lumen PICC line 40 cm length was advanced over 0.035 guidewire. The tip is in the right atrium. The catheter was flushed and secured. IMPRESSION: 1. Extremely difficult PICC line placement. Very limited deep in superficial veins are present in the upper arms. 2. Successful placement of a 5 [place] single lumen PICC line, 40 cm in length, from a left basilic approach. 3. If frequent or prolonged venous access is necessary, the patient may benefit from port placement.
--- NOTE | 2016-10-25 14:23 | CP.PCM.PN ---
Subjective - Date & Time of Evaluation Date of Evaluation: 10/25/16 Time of Evaluation: 10:30 - Subjective Subjective: Patient reports increased urination; denies diarrhea today; Objective - Vital Signs/Intake and Output Vital Signs (last 24 hours): Temp Pulse Resp BP Pulse Ox 98.2 F 93 H 20 121/72 99 10/25/16 11:45 10/25/16 11:45 10/25/16 11:45 10/25/16 14:11 10/25/16 06:00 Intake and Output: 10/25/16 10/25/16 06:59 18:59 Intake Total 1080 Balance 1080 - Medications Medications: Current Medications Apixaban (Eliquis) 2.5 mg PO BID [facility] Last Admin: 10/25/16 10:00 Dose: 2.5 mg Calcium Carbonate (Caltrate) 600 mg PO Q8H [facility] Last Admin: 10/25/16 14:18 Dose: Not Given Furosemide (Lasix) 80 mg IVP Q8H [facility] Last Admin: 10/25/16 14:11 Dose: 80 mg Guaifenesin (Mucinex La) 600 mg PO BID [facility] Last Admin: 10/25/16 10:16 Dose: Not Given Dobutamine HCl/Dextrose (Dobutamine/Dextrose 5% 500mg/250ml) 500 mg in 250 mls @ 5.885 mls/hr IV .Q24H PRN; Protocol; 2.5 MCG/KG/MIN PRN Reason: TITRATE PER PROTOCOL Last Admin: 10/25/16 11:21 Dose: 5.885 mls/hr Insulin Detemir (Levemir) 24 unit SC DAILY [facility] Last Admin: 10/25/16 10:02 Dose: 24 unit Insulin Human Lispro (Humalog) 5 units SC ACHS [facility] Last Admin: 10/25/16 12:50 Dose: 5 units Insulin Human Lispro (Humalog Low) 0 units SC ACHS [facility] PRN Reason: Protocol Lactobacillus Acidophilus (Bacid Acidophilus) 1 cap PO BID [facility] Last Admin: 10/25/16 10:11 Dose: Not Given Levothyroxine Sodium (Synthroid) 125 mcg PO ACB [facility] Last Admin: 10/25/16 10:00 Dose: 125 mcg Lorazepam (Ativan) 0.25 mg PO HS [facility] PRN Reason: Protocol Metoprolol Tartrate (Lopressor) 50 mg PO BID [facility] Last Admin: 10/23/16 10:15 Dose: Not Given Pantoprazole Sodium (Protonix Inj) 40 mg IVP 0600 [facility] Last Admin: 10/25/16 05:52 Dose: 40 mg Polyethylene Glycol (Miralax) 17 gm PO BID [facility] Last Admin: 10/21/16 19:12 Dose: Not Given Risperidone (Risperdal Tab) 1 mg PO HS [facility] PRN Reason: Protocol Last Admin: 10/18/16 21:17 Dose: 1 mg Torsemide (Demadex) 20 mg PO Q12H [facility] Last Admin: 10/25/16 10:00 Dose: 20 mg - Labs Labs: 10/23/16 08:50 10/23/16 08:50 PT 12.0 Seconds (9.9-11.8) H 10/20/16 09:29 INR 1.11 (0.93-1.08) H 10/20/16 09:29 APTT 27.8 Seconds (23.7-30.8) 10/20/16 09:29 - Constitutional Appears: Non-toxic, No Acute Distress - Head Exam Head Exam: NORMAL INSPECTION - Eye Exam Eye Exam: Normal appearance. absent: Scleral icterus - ENT Exam ENT Exam: Mucous Membranes Moist - Respiratory Exam Respiratory Exam: NORMAL BREATHING PATTERN. absent: Rhonchi, Wheezes, Respiratory Distress Additional comments: Mild basal rales; - Cardiovascular Exam Cardiovascular Exam: Tachycardia Additional comments: S3 present; no murmurs; - GI/Abdominal Exam GI & Abdominal Exam: Distended, Soft, Tenderness - Extremities Exam Extremities Exam: Normal Capillary Refill Additional comments: Anasarca, edema extending to lower back; - Neurological Exam Neurological Exam: Alert, Awake - Psychiatric Exam Psychiatric exam: Agitated - Skin Skin Exam: Normal Color, Warm. absent: Cyanosis Assessment and Plan (1) Acute renal failure Assessment & Plan: OLLIE in the setting of severely decompensated CHF; no labs available since past 2 days due to severe edema; appears to be responding to increased dose of diuretics with increased UO; -continue inotropic support with dobutamine -continue lasix 80 mg IV q8h and torsemide 20 mg q12h (added due to patient's refusal of meds at times) -if no improvement in edema with increased diuretic doses, may need UF session; Status: Acute (2) Hyponatremia Assessment & Plan: In the setting of severe CHF; poor prognostic indicator; given small dose of tolvaptan without improvement; plan was to give higher dose but held off due to inability to monitor without labs; will give tolvaptan 30 mg today pending today 's labs; Status: Acute (3) CHF (congestive heart failure) Assessment & Plan: Severely decompensated systolic CHF; on inotropic support; on high doses of diuretics, plan as mentioned above; UF session may help optimize cardiac and renal status; discussed with patient who was initially refusing but now appears to be amenable to it; will decide by tomorrow; Status: Chronic (4) Metabolic acidosis Assessment & Plan: Non-gap acidosis due diarrhea; diarrhea has apparently resolved; continue calcium carbonate for now until repeat labs available; Status: Acute (5) Sepsis Assessment & Plan: On linezolid for VRE, no renal dose adjustment needed; Status: Acute
--- NOTE | 2016-10-25 14:51 | CP.PCM.PN ---
<SAROJ FLYNN - Last Filed: 10/25/16 18:05> Subjective - Date & Time of Evaluation Date of Evaluation: 10/25/16 Time of Evaluation: 10:00 - Subjective Subjective: patient was seen and examined at bedside. she states that her abdomen is fractionating still operator, and that her extremities are fractionating still operator and swollen. When she went to get her PICC, she states that she felt short of breath when she was laid down flat. States that she has been urinating a lot but and denies n/v/d, cp/ palpitations, fever, and headaches. Objective - Vital Signs/Intake and Output Vital Signs (last 24 hours): Temp Pulse Resp BP Pulse Ox 98.2 F 93 H 20 121/72 99 10/25/16 11:45 10/25/16 11:45 10/25/16 11:45 10/25/16 14:11 10/25/16 06:00 Intake and Output: 10/25/16 10/25/16 06:59 18:59 Intake Total 1080 Balance 1080 - Medications Medications: Current Medications Apixaban (Eliquis) 2.5 mg PO BID [facility] Last Admin: 10/25/16 10:00 Dose: 2.5 mg Calcium Carbonate (Caltrate) 600 mg PO Q8H [facility] Last Admin: 10/25/16 14:18 Dose: Not Given Furosemide (Lasix) 80 mg IVP Q8H [facility] Last Admin: 10/25/16 14:11 Dose: 80 mg Guaifenesin (Mucinex La) 600 mg PO BID [facility] Last Admin: 10/25/16 10:16 Dose: Not Given Dobutamine HCl/Dextrose (Dobutamine/Dextrose 5% 500mg/250ml) 500 mg in 250 mls @ 5.885 mls/hr IV .Q24H PRN; Protocol; 2.5 MCG/KG/MIN PRN Reason: TITRATE PER PROTOCOL Last Admin: 10/25/16 11:21 Dose: 5.885 mls/hr Insulin Detemir (Levemir) 24 unit SC DAILY [facility] Last Admin: 10/25/16 10:02 Dose: 24 unit Insulin Human Lispro (Humalog) 5 units SC [facility] Last Admin: 10/25/16 12:50 Dose: 5 units Insulin Human Lispro (Humalog Low) 0 units SC [facility] PRN Reason: Protocol Lactobacillus Acidophilus (Bacid Acidophilus) 1 cap PO BID [facility] Last Admin: 10/25/16 10:11 Dose: Not Given Levothyroxine Sodium (Synthroid) 125 mcg PO ACB [facility] Last Admin: 10/25/16 10:00 Dose: 125 mcg Lorazepam (Ativan) 0.25 mg PO HS [facility] PRN Reason: Protocol Metoprolol Tartrate (Lopressor) 50 mg PO BID [facility] Last Admin: 10/23/16 10:15 Dose: Not Given Pantoprazole Sodium (Protonix Inj) 40 mg IVP 0600 [facility] Last Admin: 10/25/16 05:52 Dose: 40 mg Polyethylene Glycol (Miralax) 17 gm PO BID [facility] Last Admin: 10/21/16 19:12 Dose: Not Given Risperidone (Risperdal Tab) 1 mg PO HS [facility] PRN Reason: Protocol Last Admin: 10/18/16 21:17 Dose: 1 mg Torsemide (Demadex) 20 mg PO Q12H [facility] Last Admin: 10/25/16 10:00 Dose: 20 mg - Labs Labs: 10/23/16 08:50 10/23/16 08:50 PT 12.0 Seconds (9.9-11.8) H 10/20/16 09:29 INR 1.11 (0.93-1.08) H 10/20/16 09:29 APTT 27.8 Seconds (23.7-30.8) 10/20/16 09:29 - Constitutional Appears: Well (pt looks more alert and is more responsive than on prior exams), Non-toxic, No Acute Distress, Unkempt, Chronically Ill - Head Exam Head Exam: ATRAUMATIC, NORMAL INSPECTION, NORMOCEPHALIC - Eye Exam Eye Exam: EOMI, Normal appearance, PERRL. absent: Conjunctival injection, Scleral icterus Pupil Exam: NORMAL ACCOMODATION. absent: Unequal - ENT Exam ENT Exam: Mucous Membranes Moist, Normal Exam - Neck Exam Neck Exam: Full ROM - Respiratory Exam Respiratory Exam: Clear to Ausculation Bilateral, NORMAL BREATHING PATTERN. absent: Accessory Muscle Use, Chest Wall Tenderness, Rales, Rhonchi, Wheezes, Respiratory Distress, Stridor - Cardiovascular Exam Cardiovascular Exam: REGULAR RHYTHM, RRR, +S1, +S2. absent: Gallop, JVD, Rubs, Murmur - GI/Abdominal Exam GI & Abdominal Exam: Firm, Soft, Tenderness (mild tenderness to palpation ( diffuse)), Normal Bowel Sounds. absent: Distended, Organomegaly, Rebound - Extremities Exam Extremities Exam: Pedal Edema Additional comments: edema x4 extremities, improving from prior exams. Less in UE than LE. - Neurological Exam Neurological Exam: Alert (more alert today than on prior exams ), Awake, Oriented x3 - Psychiatric Exam Psychiatric exam: Normal Affect, Normal Mood - Skin Skin Exam: Normal Color, Warm. absent: Cyanosis, Diaphoretic, Pallor Assessment and Plan - Assessment and Plan (Free Text) Plan: 51 y/o female with PMHx of DM2, CHF (EF 30% in 10/2016), HTN, chronic pulmonary effusion, HTN, DVT, PE, hypothyroidism, PSH of lap mitchell in 05/2016 and psych hx of schizophrenia and Bipolar disorder presented to the ED with complaints of abdominal pain x1week. Patient was extubated on 10/15, and is on tele. HHS improved, pt extubated and in NAD, increased edema in all 4 extremities. s/p 7 days of Doxycycline and 6 days of Meronepem. Pt received PICC line this morning. Anasarca - BP 121/72 and stable - holding fluids due to CHF and edema - Lasix 80mg Q8, per nephro - Torsemide 20mg Q12 for added diuresis, per nephro - ECHO (10/18): EF 30%, severe MR, large pleural effusion - Pulm consulted, recs appreciated - Nephro consulted, recs appreciated - daily weight: 173lbs - I/O: 1800/unaccounted for; nurse was told to keep strict I/O's for pt Hypotension - cont dobutamine 2.5 mcg/kg/min, per cards recs - Cards consulted, recs appreciated - Pt on tele for closer monitoring of BP UTI - UCx 10/19 growing VRE - Blood cultures no growth - ID consulted: stop Abx and f/u urine cx - WBC 14.2 (trending down, pt asymptomatic) Hypokalemia - K 2.6, Mg 1.6 - EKG ordered stat - KCl 100meq PO and 20meq IV ordered - f/u CMP AM Hyponatremia likely dilutional - Na 128, improving - Renal consult, recs appreciated DM2, HONK resolved - FS 200's-310's - continue Lispro 5mg ACHS, Levemir increased to 24u daily, cont Humalog - monitor closely AMS - Ativan and Risperidone held - improving, pt is more responsive today Hypothermia - Temp 98.2F - extremities feel warmer today Transaminits, asymptomatic likely 2/2 decreased perfuion - AST 48, ALT 248 - hepatitis serologies negative for Hep A, B and C antibodies - GI consult for colitis, recs appreciated Abdominal pain, improving - hepatitis negative, legionella negative - lipase 141, GGT 358 - ALP trending down (551) improving - Hx lap mitchell in May 2016 Hypothyroid - Synthroid 125mcg PO Diarrhea, resolved - started on Lactobacillus Acidophilus - c diff negative - pt on miralax Congested cough, resolved - cont Mucinex Dispo: Palliative care nurse discussing with pt and sister in law ([phone] ) regarding advanced directives and dispo PTX/Eliquis Patient was seen, discussed and evaluated with attending, Dr. Yung Flynn, PGY1 <Katherine Barragan - Last Filed: 10/25/16 21:20> Objective - Vital Signs/Intake and Output Vital Signs (last 24 hours): Temp Pulse Resp BP Pulse Ox 98 F 85 20 108/64 99 10/25/16 18:00 10/25/16 18:00 10/25/16 18:00 10/25/16 18:00 10/25/16 06:00 Intake and Output: 10/25/16 10/26/16 18:59 06:59 Intake Total 1800 Balance 1800 - Medications Medications: Current Medications Calcium Carbonate (Caltrate) 600 mg PO Q8H [facility] Last Admin: 10/25/16 14:18 Dose: Not Given Furosemide (Lasix) 80 mg IVP Q8H [facility] Last Admin: 10/25/16 14:11 Dose: 80 mg Guaifenesin (Mucinex La) 600 mg PO BID [facility] Last Admin: 10/25/16 18:51 Dose: Not Given Dobutamine HCl/Dextrose (Dobutamine/Dextrose 5% 500mg/250ml) 500 mg in 250 mls @ 5.885 mls/hr IV .Q24H PRN; Protocol; 2.5 MCG/KG/MIN PRN Reason: TITRATE PER PROTOCOL Last Admin: 10/25/16 11:21 Dose: 5.885 mls/hr Insulin Detemir (Levemir) 24 unit SC DAILY [facility] Last Admin: 10/25/16 10:02 Dose: 24 unit Insulin Human Lispro (Humalog) 5 units SC [facility] Last Admin: 10/25/16 18:25 Dose: 5 units Insulin Human Lispro (Humalog Low) 0 units SC [facility] PRN Reason: Protocol Last Admin: 10/25/16 18:26 Dose: 2 units Lactobacillus Acidophilus (Bacid Acidophilus) 1 cap PO BID [facility] Last Admin: 10/25/16 18:50 Dose: Not Given Levothyroxine Sodium (Synthroid) 125 mcg PO ACB [facility] Last Admin: 10/25/16 10:00 Dose: 125 mcg Lorazepam (Ativan) 0.25 mg PO HS [facility] PRN Reason: Protocol Metoprolol Tartrate (Lopressor) 50 mg PO BID [facility] Last Admin: 10/23/16 10:15 Dose: Not Given Pantoprazole Sodium (Protonix Inj) 40 mg IVP 0600 [facility] Last Admin: 10/25/16 05:52 Dose: 40 mg Polyethylene Glycol (Miralax) 17 gm PO BID [facility] Last Admin: 10/21/16 19:12 Dose: Not Given Risperidone (Risperdal Tab) 1 mg PO HS [facility] PRN Reason: Protocol Last Admin: 10/18/16 21:17 Dose: 1 mg Torsemide (Demadex) 20 mg PO Q12H [facility] Last Admin: 10/25/16 10:00 Dose: 20 mg - Labs Labs: 10/25/16 17:30 10/25/16 17:20 PT 12.0 Seconds (9.9-11.8) H 10/20/16 09:29 INR 1.11 (0.93-1.08) H 10/20/16 09:29 APTT 27.8 Seconds (23.7-30.8) 10/20/16 09:29 Attending/Attestation - Attestation I have personally seen and examined this patient.: Yes I have fully participated in the care of the patient.: Yes I have reviewed all pertinent clinical information, including history, physical exam and plan: Yes Notes (Text): 10/25/16 21:15 51 year old female with past medical history of diabetes, CHF, hypertension, DVT /PE, and hypothyroidism who has had extensive hospital course as above. Active issues include hyponatremia and anasarca for which she is being followed by nephrology. She is on lasix and torsemide. She is on fluid restriction. Case was discussed with nephrology today; recommended to continue with dobutamine for now; consider UF if no improvement of anasarca. Sodium is improving this afternoon at 128. Leukocytosis is also slowly improving. ID is following and she is now off antibiotics s/p treatment for UTI. Elevated LFTs likely multifactorial. Will continue to monitor. GI is following. She is on levemir, insulin ss and lispro for diabetes. Will replete and repeat potassium and magnesium. Katherine Barragan MD Hospitalist.
[2016-10-25 17:40] LABS: BASO # 0.01 K/mm3 (0.0-2.0); BASO % 0.1 % (0.0-3.0); EOS # 0.1 (0.0-0.7); GRAN # 11.39 (1.4-6.5); GRAN % 80.4 % (50.0-68.0); HEMOGLOBIN 9.5 gm/dL (12.0-16.0); LYMPH # 1.7 (1.2-3.4); LYMPH % 12.3 % (22.0-35.0); MEAN CELL VOLUME 76.1 fL (80.0-105.0); MEAN CORPUSCULAR HEMOGLOBIN 25.3 pg (25.0-35.0); MEAN CORPUSCULAR HGB CONC 33.2 g/dl (31.0-37.0); MEAN PLATELET VOLUME 9.5 fl (7.0-11.0); MONO # 0.9 (0.1-0.6); MONO % 6.2 % (1.0-6.0); PLATELET COUNT 385 10^3/uL (120.0-450.0); RBC 3.76 10^6/uL (3.5-6.1); RED CELL DISTRIBUTION WIDTH 20.1 % (11.5-14.5); WHITE BLOOD COUNT 14.2 10^3/ul (4.5-11.0)
[2016-10-25 17:53] LABS: ALB/GLOB RATIO 0.9 (1.1-1.8); ALBUMIN 2.9 g/dL (3.0-4.8); CALCIUM 8.7 mg/dL (8.4-10.5); MAGNESIUM 1.6 mg/dL (1.7-2.2)
[2016-10-25] MEDS ORDERED: Potassium Chloride 20 mEq ER Tab PO ONE ×3 (18:03→21:35)
[2016-10-25] MEDS: Insulin Lispro (humaLOG) LOW Coverage SC SCH ×2 (18:26→23:11)
[2016-10-25 18:48] LABS: LYMPHOCYTE 9 % (22.0-35.0); MONOCYTE 2 % (1.0-6.0); NEUTROPHIL 89 % (50.0-70.0)
[2016-10-25 18:49] LABS: ANISOCYTOSIS SLIGHT; HYPOCHROMIA SLIGHT; MICROCYTOSIS SLIGHT; PLATELET ESTIMATE NORMAL (NORMAL); POLYCHROMASIA SLIGHT; TARGET CELLS SLIGHT
[2016-10-25] MEDS ORDERED: Potassium Chloride 20 mEq ER Tab PO STA (18:56)
--- NOTE | 2016-10-25 19:20 | CARD ---
APPROVED REPORT EKG Measurement Heart [id number] MI [id number] <Conclusion> Sinus tachycardia Left bundle branch block Abnormal ECG
--- NOTE | 2016-10-25 19:43 | PN ---
DATE: 10/25/2016 SUBJECTIVE: The patient is still experiencing shortness of breath, bilateral leg swelling and arm swelling. She underwent a PICC line placement. PHYSICAL EXAMINATION: VITAL SIGNS: Blood pressure 121/72, heart rate 93, temperature 98.2, respirations 20. HEENT: Facial edema. NECK: No JVD. CHEST: Absent breath sounds over the bases. ABDOMEN: Mild ascites. EXTREMITIES: 3+to 4+ edema of the upper and lower extremities. LABORATORY DATA: Upper extremity Duplex scan, no sonographic evidence of DVT in the visualized segments. ASSESSMENT: 1. Congestive heart failure. 2. Anasarca. 3. Uncontrolled diabetes mellitus. 4. Hyponatremia. 5. Acute renal insufficiency. 6. Rule out nephrotic syndrome. RECOMMENDATIONS: Continue current Demadex at 20 mg p.o. twice a day. Dobutrex infusion at 5 mcg/kg per minute. Eliquis 2.5 mg twice a day, Lopressor 50 mg twice a day, Synthroid 125 mcg once a day. Orhto restriction was recommended. The patient was advised to limit her water intake. Cesar Kinney MD
[2016-10-25] MEDS ORDERED: Magnesium Sulfate 2 GM in Sodium Chloride 0.9% 100 ML IVPB ONE (21:14)
[2016-10-26] MEDS ORDERED: Potassium Chloride 20 mEq ER Tab PO ONE ×2 (06:00→07:34)
[2016-10-26 06:54] LABS: HEMOGLOBIN 8.8 gm/dL (12.0-16.0); MEAN CELL VOLUME 76.2 fL (80.0-105.0); MEAN CORPUSCULAR HEMOGLOBIN 25.2 pg (25.0-35.0); MEAN CORPUSCULAR HGB CONC 33.1 g/dl (31.0-37.0); MEAN PLATELET VOLUME 9.8 fl (7.0-11.0); RBC 3.49 10^6/uL (3.5-6.1); RED CELL DISTRIBUTION WIDTH 20.2 % (11.5-14.5); WHITE BLOOD COUNT 12.7 10^3/ul (4.5-11.0)
[2016-10-26 06:59] LABS: ALB/GLOB RATIO 0.9 (1.1-1.8); ALBUMIN 2.7 g/dL (3.0-4.8); CALCIUM 8.2 mg/dL (8.4-10.5); MAGNESIUM 1.8 mg/dL (1.7-2.2)
[2016-10-26] MEDS: Levothyroxine 125 MCG TAB PO SCH (08:48)
[2016-10-26] MEDS: Insulin Lispro 1 UNITS/0.01 ML SC SCH ×4 (08:49→22:03)
[2016-10-26] MEDS: Insulin Lispro (humaLOG) LOW Coverage SC SCH ×4 (08:50→22:04)
[2016-10-26] MEDS: guaiFENesin 600 mg ER Tab PO SCH ×2 (11:45→18:39)
[2016-10-26] MEDS: Insulin Detemir 100 units/ml Vial (Levemir) SC SCH (11:45)
[2016-10-26] MEDS: Lactobacillus Acidophilus 500 MU Cap PO SCH ×2 (11:45→18:39)
--- NOTE | 2016-10-26 12:21 | CARD ---
APPROVED REPORT EKG Measurement Heart [id number] <Conclusion> Sinus tachycardia with intermittent LBBB Cannot rule out Anterior infarct, age undetermined Abnormal ECG
--- NOTE | 2016-10-26 17:08 | PN ---
DATE: SUBJECTIVE: The patient is experiencing neck pain as well as shortness of breath and also retrosternal chest pain. PHYSICAL EXAMINATION VITAL SIGNS: Blood pressure 110/61, heart rate 111, temperature 97.5, respirations 20. HEENT: Pale conjunctivae. CHEST: Absent breath sounds over the bases. HEART: S1 and S2 regular. ABDOMEN: Mild ascites. EXTREMITIES: 2 to 3+ pitting edema LABORATORY DATA: Hemoglobin and hematocrit 8.8 and 26.6. White count and platelet count are 12.7 and 345. Today's potassium is 2.7. BUN and creatinine are 51 and 1.6 respectively. Glucose 167. EKG revealed sinus tachycardia 113, right bundle branch block. ASSESSMENT: 1. Anasarca. 2. Congestive heart failure. 3. Hypokaliemia. 4. Acute renal insufficiency. 5. History of neck lymphoma about 7 years ago. CONDITIONS: Continue current Demadex, Dobutrex, intravenous Lasix, and potassium replacement. Start K-Dur at 20 mEq orally twice a day. Case was discussed with Dr. Amador. Nephrotic syndrome should be kept in the differential diagnosis. Cesar Kinney MD
[2016-10-26 17:21] LABS: CALCIUM 8.6 mg/dL (8.4-10.5)
[2016-10-26 17:28] LABS: % IRON SATURATION 8 % (20-55); IRON 30 ug/dL (45-180); TOTAL IRON BINDING CAPACITY 374 ug/dL (265-497)
--- NOTE | 2016-10-26 18:02 | CP.PCM.PN ---
<SAROJ FLYNN - Last Filed: 10/26/16 17:56> Subjective - Date & Time of Evaluation Date of Evaluation: 10/26/16 Time of Evaluation: 10:30 - Subjective Subjective: patient was seen and examined bedside. states that her whole body hurts, especially her abdomen and legs. denies sob, chest pain, diarrhea, fevers, or chills. Objective - Vital Signs/Intake and Output Vital Signs (last 24 hours): Temp Pulse Resp BP Pulse Ox 97 F L 100 H 19 125/66 100 10/26/16 17:26 10/26/16 17:26 10/26/16 17:26 10/26/16 17:26 10/26/16 06:00 Intake and Output: 10/26/16 10/26/16 06:59 18:59 Intake Total 1600 900 Output Total 1350 1059 Balance 250 -159 - Medications Medications: Current Medications Calcium Carbonate (Caltrate) 600 mg PO Q8H [facility] Last Admin: 10/26/16 14:50 Dose: Not Given Furosemide (Lasix) 80 mg IVP Q8H [facility] Last Admin: 10/26/16 14:50 Dose: 80 mg Guaifenesin (Mucinex La) 600 mg PO BID [facility] Last Admin: 10/26/16 11:45 Dose: 600 mg Dobutamine HCl/Dextrose (Dobutamine/Dextrose 5% 500mg/250ml) 500 mg in 250 mls @ 5.885 mls/hr IV .Q24H PRN; Protocol; 2.5 MCG/KG/MIN PRN Reason: TITRATE PER PROTOCOL Last Admin: 10/25/16 11:21 Dose: 5.885 mls/hr Insulin Detemir (Levemir) 24 unit SC DAILY [facility] Last Admin: 10/26/16 11:45 Dose: 24 unit Insulin Human Lispro (Humalog) 5 units SC ACHS [facility] Last Admin: 10/26/16 12:33 Dose: 5 units Insulin Human Lispro (Humalog Low) 0 units SC ACHS [facility] PRN Reason: Protocol Last Admin: 10/26/16 12:33 Dose: 4 units Lactobacillus Acidophilus (Bacid Acidophilus) 1 cap PO BID [facility] Last Admin: 10/26/16 11:45 Dose: 1 cap Levothyroxine Sodium (Synthroid) 125 mcg PO ACB [facility] Last Admin: 10/26/16 08:48 Dose: 125 mcg Lorazepam (Ativan) 0.25 mg PO HS [facility] PRN Reason: Protocol Metoprolol Tartrate (Lopressor) 50 mg PO BID [facility] Last Admin: 10/23/16 10:15 Dose: Not Given Pantoprazole Sodium (Protonix Inj) 40 mg IVP 0600 [facility] Last Admin: 10/26/16 06:03 Dose: 40 mg Polyethylene Glycol (Miralax) 17 gm PO BID [facility] Last Admin: 10/21/16 19:12 Dose: Not Given Potassium Chloride (K-Dur 20 Meq Er Tab) 20 meq PO BID [facility] Risperidone (Risperdal Tab) 1 mg PO HS [facility] PRN Reason: Protocol Last Admin: 10/18/16 21:17 Dose: 1 mg Torsemide (Demadex) 20 mg PO Q12H [facility] Last Admin: 10/26/16 08:47 Dose: 20 mg - Labs Labs: 10/26/16 06:18 10/26/16 16:35 PT 12.0 Seconds (9.9-11.8) H 10/20/16 09:29 INR 1.11 (0.93-1.08) H 10/20/16 09:29 APTT 27.8 Seconds (23.7-30.8) 10/20/16 09:29 - Constitutional Appears: Well, No Acute Distress, Older Than Stated Age, Chronically Ill, Other (more alert and responds appropriately ) - Head Exam Head Exam: ATRAUMATIC, NORMAL INSPECTION, NORMOCEPHALIC - Eye Exam Eye Exam: EOMI, Normal appearance, PERRL Pupil Exam: NORMAL ACCOMODATION, PERRL - ENT Exam ENT Exam: Mucous Membranes Moist, Normal Exam - Respiratory Exam Respiratory Exam: Clear to Ausculation Bilateral, NORMAL BREATHING PATTERN. absent: Accessory Muscle Use, Chest Wall Tenderness, Prolonged Expiratory Phase , Rales, Rhonchi, Wheezes, Respiratory Distress, Stridor - Cardiovascular Exam Cardiovascular Exam: RRR, +S1, +S2. absent: Gallop, JVD, Rubs, Murmur - GI/Abdominal Exam GI & Abdominal Exam: Soft, Tenderness (pt verbalizes that she had pain on palpation, but doesn't grimace or withdraw from pain), Normal Bowel Sounds. absent: Distended, Firm, Guarding, Rigid, Diminished Bowel Sounds, Organomegaly Additional comments: obese - Neurological Exam Neurological Exam: Alert, Awake. absent: Motor Sensory Deficit - Psychiatric Exam Psychiatric exam: Normal Affect, Normal Mood - Skin Skin Exam: Normal Color, Warm. absent: Cyanosis, Pallor - Additional Findings Additional findings: PICC line LUE day 2 Assessment and Plan - Assessment and Plan (Free Text) Plan: 51 y/o female with PMHx of DM2, CHF (EF 30% in 10/2016), HTN, chronic pulmonary effusion, HTN, DVT, PE, hypothyroidism, PSH of lap mitchell in 05/2016 and psych hx of schizophrenia and Bipolar disorder presented to the ED with complaints of abdominal pain x1week. Patient was extubated on 10/15, and is on tele. HHS improved, pt extubated and in NAD, increased edema in all 4 extremities. s/p 7 days of Doxycycline and 6 days of Meronepem. Pt received PICC line day 2. Anasarca - BP 120's/60's and stable - holding fluids due to CHF and edema - Lasix 80mg Q8, per nephro - Torsemide 20mg Q12 for added diuresis, per nephro - ECHO (10/18): EF 30%, severe MR, large pleural effusion - Pulm consulted, recs appreciated - Nephro consulted, recs appreciated - daily weight: 175lbs (2lbs more than yesterday but less than last week) - I/O: 3400/1350; nurse was told to keep strict I/O's for pt Hypotension, improved - cont dobutamine 2.5 mcg/kg/min, per cards recs - Cards consulted, recs appreciated - Pt on tele for closer monitoring of BP UTI - UCx 10/19 growing VRE - UCx re-ordered - Blood cultures no growth - ID consulted, recs appreciated - WBC 12.7 (trending down, pt asymptomatic) Hypokalemia, being repleted - K 2.7, Mg 1.8 - EKG ordered stat, no changes from yesterday - f/u K 3.2 Anemia - H/H: 8.8/26.6 trending down - iron panel ordered, f/u Hyponatremia likely dilutional - Na 129, resolved - Renal consult, recs appreciated DM2, HONK resolved - FS 150's-310's - continue Lispro 5mg ACHS, Levemir increased to 24u daily, cont Humalog - monitor closely AMS - Ativan and Risperidone held - improving, pt is more responsive today Hypothermia - Temp 97F - extremities feel warmer today Transaminits, asymptomatic likely 2/2 decreased perfuion - AST 47, ALT 206 - hepatitis serologies negative for Hep A, B and C antibodies - GI consult for colitis, recs appreciated Abdominal pain, improving but likely due to edema - hepatitis negative, legionella negative - ALP trending down (479) improving - Hx lap mitchell in May 2016 Hypothyroid - Synthroid 125mcg PO Diarrhea, resolved - started on Lactobacillus Acidophilus - c diff negative - pt on miralax Congested cough, resolved - cont Mucinex Dispo: Palliative care nurse discussing with pt and sister in law ([phone] ) regarding advanced directives and dispo PTX/Eliquis Patient was seen, discussed and evaluated with attending, Dr. Perry Flynn, PGY1 <Annmarie Amador B - Last Filed: 10/26/16 20:02> Objective - Vital Signs/Intake and Output Vital Signs (last 24 hours): Temp Pulse Resp BP Pulse Ox 97 F L 100 H 19 125/66 100 10/26/16 17:26 10/26/16 17:26 10/26/16 17:26 10/26/16 17:26 10/26/16 06:00 Intake and Output: 10/26/16 10/27/16 18:59 06:59 Intake Total 900 Output Total 1059 Balance -159 - Medications Medications: Current Medications Calcium Carbonate (Caltrate) 600 mg PO Q8H [facility] Last Admin: 10/26/16 14:50 Dose: Not Given Furosemide (Lasix) 80 mg IVP Q8H [facility] Last Admin: 10/26/16 14:50 Dose: 80 mg Guaifenesin (Mucinex La) 600 mg PO BID [facility] Last Admin: 10/26/16 18:39 Dose: 600 mg Dobutamine HCl/Dextrose (Dobutamine/Dextrose 5% 500mg/250ml) 500 mg in 250 mls @ 5.885 mls/hr IV .Q24H PRN; Protocol; 2.5 MCG/KG/MIN PRN Reason: TITRATE PER PROTOCOL Last Admin: 10/25/16 11:21 Dose: 5.885 mls/hr Potassium Chloride (Potassium Chloride 20 Meq/100 Ml) 20 meq in 100 mls @ 50 mls/hr IVPB ONCE ONE Stop: 10/26/16 20:28 Last Admin: 10/26/16 19:22 Dose: 50 mls/hr Insulin Detemir (Levemir) 24 unit SC DAILY [facility] Last Admin: 10/26/16 11:45 Dose: 24 unit Insulin Human Lispro (Humalog) 5 units SC ACHS [facility] Last Admin: 10/26/16 18:39 Dose: 5 units Insulin Human Lispro (Humalog Low) 0 units SC ACHS [facility] PRN Reason: Protocol Last Admin: 10/26/16 18:40 Dose: 1 units Lactobacillus Acidophilus (Bacid Acidophilus) 1 cap PO BID [facility] Last Admin: 10/26/16 18:39 Dose: 1 cap Levothyroxine Sodium (Synthroid) 125 mcg PO ACB [facility] Last Admin: 10/26/16 08:48 Dose: 125 mcg Lorazepam (Ativan) 0.25 mg PO HS [facility] PRN Reason: Protocol Metoprolol Tartrate (Lopressor) 50 mg PO BID [facility] Last Admin: 10/23/16 10:15 Dose: Not Given Pantoprazole Sodium (Protonix Inj) 40 mg IVP 0600 [facility] Last Admin: 10/26/16 06:03 Dose: 40 mg Polyethylene Glycol (Miralax) 17 gm PO BID [facility] Last Admin: 10/21/16 19:12 Dose: Not Given Potassium Chloride (K-Dur 20 Meq Er Tab) 20 meq PO BID [facility] Last Admin: 10/26/16 18:38 Dose: 20 meq Risperidone (Risperdal Tab) 1 mg PO HS [facility] PRN Reason: Protocol Last Admin: 10/18/16 21:17 Dose: 1 mg Torsemide (Demadex) 20 mg PO Q12H [facility] Last Admin: 10/26/16 08:47 Dose: 20 mg - Labs Labs: 10/26/16 06:18 10/26/16 16:35 PT 12.0 Seconds (9.9-11.8) H 10/20/16 09:29 INR 1.11 (0.93-1.08) H 10/20/16 09:29 APTT 27.8 Seconds (23.7-30.8) 10/20/16 09:29 Attending/Attestation - Attestation I have personally seen and examined this patient.: Yes I have fully participated in the care of the patient.: Yes I have reviewed all pertinent clinical information, including history, physical exam and plan: Yes Notes (Text): I have seen and examined patient at bedside. Agree with the above note with the following additions/ exceptions: Briefly this is 51 year old female with history of DM-2, CHF(EF~30%), HTN, chronic pulmonary effusion, HTN, DVT, PE on eliquis, hypothyroidism, schizophrenia and Bipolar disorder who presented initially with diffuse abdominal pain and confusion and found to be in HONK and code sepsis was called most likely due to HCAP vs abdominal etiology( Suspected colitis on CT scan). She completed meropenem and doxy. Active issues include hyponatremia and anasarca. She is on lasix, torsemide and fluid restriction. Sodium improved to 129. 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 Urine cultures revealed VRE. Repeat urine cultures ordered. Blood cultures are negative. Stool for cdiff negative. She is off antibiotics. LFT's are improving. Palliative care consult appreciated. Patient remains full code. PT recommended MITCH. Upon discharge patient will follow up with Dr Roman. Dr Annmarie Amador
[2016-10-26] MEDS: Potassium Chloride 20 mEq ER Tab PO SCH (18:38)
--- NOTE | 2016-10-26 21:10 | CP.PCM.PN ---
Objective - Vital Signs/Intake and Output Vital Signs (last 24 hours): Temp Pulse Resp BP Pulse Ox 97 F L 122 H 19 125/66 100 10/26/16 17:26 10/26/16 18:00 10/26/16 17:26 10/26/16 17:26 10/26/16 06:00 Intake and Output: 10/26/16 10/27/16 18:59 06:59 Intake Total 900 Output Total 1059 Balance -159 - Medications Medications: Current Medications Furosemide (Lasix) 80 mg IVP Q8H [facility] Last Admin: 10/26/16 14:50 Dose: 80 mg Guaifenesin (Mucinex La) 600 mg PO BID [facility] Last Admin: 10/26/16 18:39 Dose: 600 mg Dobutamine HCl/Dextrose (Dobutamine/Dextrose 5% 500mg/250ml) 500 mg in 250 mls @ 5.885 mls/hr IV .Q24H PRN; Protocol; 2.5 MCG/KG/MIN PRN Reason: TITRATE PER PROTOCOL Last Admin: 10/25/16 11:21 Dose: 5.885 mls/hr Insulin Detemir (Levemir) 24 unit SC DAILY [facility] Last Admin: 10/26/16 11:45 Dose: 24 unit Insulin Human Lispro (Humalog) 5 units SC ACHS [facility] Last Admin: 10/26/16 18:39 Dose: 5 units Insulin Human Lispro (Humalog Low) 0 units SC ACHS [facility] PRN Reason: Protocol Last Admin: 10/26/16 18:40 Dose: 1 units Lactobacillus Acidophilus (Bacid Acidophilus) 1 cap PO BID [facility] Last Admin: 10/26/16 18:39 Dose: 1 cap Levothyroxine Sodium (Synthroid) 125 mcg PO ACB [facility] Last Admin: 10/26/16 08:48 Dose: 125 mcg Lorazepam (Ativan) 0.25 mg PO HS [facility] PRN Reason: Protocol Metoprolol Tartrate (Lopressor) 50 mg PO BID [facility] Last Admin: 10/23/16 10:15 Dose: Not Given Pantoprazole Sodium (Protonix Inj) 40 mg IVP 0600 [facility] Last Admin: 10/26/16 06:03 Dose: 40 mg Polyethylene Glycol (Miralax) 17 gm PO BID [facility] Last Admin: 10/21/16 19:12 Dose: Not Given Potassium Chloride (K-Dur 20 Meq Er Tab) 20 meq PO BID [facility] Last Admin: 10/26/16 18:38 Dose: 20 meq Risperidone (Risperdal Tab) 1 mg PO HS [facility] PRN Reason: Protocol Last Admin: 10/18/16 21:17 Dose: 1 mg Torsemide (Demadex) 20 mg PO Q12H [facility] Last Admin: 10/26/16 20:25 Dose: 20 mg - Labs Labs: 10/26/16 06:18 10/26/16 16:35 PT 12.0 Seconds (9.9-11.8) H 10/20/16 09:29 INR 1.11 (0.93-1.08) H 10/20/16 09:29 APTT 27.8 Seconds (23.7-30.8) 10/20/16 09:29 Assessment and Plan (1) Acute renal failure Status: Acute (2) Hyponatremia Status: Acute (3) CHF (congestive heart failure) Status: Chronic (4) Metabolic acidosis Status: Acute (5) Sepsis Status: Acute
[2016-10-26 22:28] LABS: FERRITIN 78.2 ng/mL
--- NOTE | 2016-10-27 02:45 | PN ---
DATE: 10/26/2016 SUBJECTIVE: The patient is seen earlier this morning in 260, bed 2. PHYSICAL EXAMINATION VITAL SIGNS: Temperature is 97, blood pressure is 120/50, respiratory rate is 19, and heart rate is 100. HEENT: Unremarkable. NECK: Supple. HEART: Normal S1 and S2. LUNGS: Decreased breath sounds. ABDOMEN: Soft. LABORATORY DATA: Reveals a white count of 12,700, hemoglobin of 8, and platelets of 345. Chemistries: BUN of 48 and creatinine of 1.8. Urinalysis is noted. C. diff toxin and antigen are negative. Review of the orders reveals patient to be off of antibiotics. ASSESSMENT AND PLAN: This is a 51-year-old female with severe sepsis and status post hypoxic-ventilatory dependent respiratory failure probably secondary to bilateral healthcare-associated pneumonia, possible gram-positive cocci, possible gram-negative aaliyah with associated hyperglycemic hyperosmolar state and acute pancreatitis, currently off of antibiotics. Review of orders confirms the patient to be off of antibiotics and the patient's white count is down to 12,700 today. We will follow with you. The patient is at risk for development of nosocomial infections. We will also follow the WBC count. Yehuda Valentino MD
[2016-10-27 06:18] LABS: ALBUMIN 2.8 g/dL (3.0-4.8); CALCIUM 8.3 mg/dL (8.4-10.5)
[2016-10-27 06:43] LABS: HEMOGLOBIN 8.9 gm/dL (12.0-16.0); MEAN CORPUSCULAR HEMOGLOBIN 25.7 pg (25.0-35.0); MEAN CORPUSCULAR HGB CONC 33.8 g/dl (31.0-37.0); MEAN PLATELET VOLUME 9.7 fl (7.0-11.0); RBC 3.46 10^6/uL (3.5-6.1); WHITE BLOOD COUNT 11.7 10^3/ul (4.5-11.0)
[2016-10-27] MEDS: DOBUTamine 500mg/250ml D5W 500 MG/250 ML BAG IV PRN (06:45)
[2016-10-27] MEDS ORDERED: Potassium Chloride 20 mEq ER Tab PO STA (07:09)
[2016-10-27] MEDS: Potassium Chloride 20 mEq ER Tab PO STA (08:30)
[2016-10-27] MEDS: Insulin Lispro 1 UNITS/0.01 ML SC SCH ×4 (08:30→22:06)
[2016-10-27] MEDS: Insulin Lispro (humaLOG) LOW Coverage SC SCH ×4 (08:30→22:05)
[2016-10-27] MEDS: Levothyroxine 125 MCG TAB PO SCH (09:06)
[2016-10-27] MEDS: Insulin Detemir 100 units/ml Vial (Levemir) SC SCH (11:00)
[2016-10-27] MEDS: Potassium Chloride 20 mEq ER Tab PO SCH ×2 (11:00→18:30)
[2016-10-27] MEDS: guaiFENesin 600 mg ER Tab PO SCH ×2 (11:44→18:49)
[2016-10-27] MEDS: Lactobacillus Acidophilus 500 MU Cap PO SCH ×2 (11:44→18:50)
--- NOTE | 2016-10-27 15:46 | PN ---
DATE: 10/27/2016 SUBJECTIVE: The patient was seen earlier this morning in room 260, bed 2. Overall, the patient is unremarkable, She had an unremarkable night. No fevers and no chills, and she denied any abdominal pain. She is complaining of weakness. PHYSICAL EXAMINATION: VITAL SIGNS: Temperature is 97, pulse of 120, respiratory rate of 20, and blood pressure is 115. HEENT: Unremarkable. NECK: Supple. HEART: Normal S1 and S2. LUNGS: Decreased breath sounds. ABDOMEN: Soft. LABORATORY DATA: Reveals a white count this morning down to 11,700, hemoglobin of 8, and platelets of 322. Coagulation is noted. INR of 1.11. Chemistries reveals BUN of 46 and creatinine of 1.4. Alkaline phosphatase is elevated at 425 with AST of 47 and *------*. Urinalysis is noted to have 20-25 wbc's that was from 10/19/2016. Pleural fluid cells are noted to be at 35,000 with an LDH of 64 and pleural pH of 8. Toxicology is noted. Antimitochondrial antibody is negative. Urine for Legionella antigen is negative. Hepatitis C antibody and B-core IgM antibody is negative with hepatitis B surface antigen negative. Microbiology revealed the patient's stool for C. diff is negative *------* antigen and toxin. ASSESSMENT AND PLAN: A 51-year-old female with severe sepsis, status post hypoxic ventilatory dependent respiratory failure probably secondary to bilateral healthcare-associated pneumonia, possible gram-positive cocci, possible gram-negative aaliyah associated with hyperglycemic hyperosmolar state, with acute pancreatitis currently off of antibiotics, afebrile with downward trend of leukocytosis that appears to be improving. Review of the orders revealed the patient to be off of antibiotics. We will follow closely with you. Yehuda Valentino MD
--- NOTE | 2016-10-27 17:33 | CP.PCM.PN ---
<SAROJ HOLCOMB - Last Filed: 10/27/16 17:28> Subjective - Date & Time of Evaluation Date of Evaluation: 10/27/16 Time of Evaluation: 10:30 - Subjective Subjective: patient was seen and examined bedside. pt still complains of pain in abdomen, hands and legs. also states that she is urinating a lot. Objective - Vital Signs/Intake and Output Vital Signs (last 24 hours): Temp Pulse Resp BP Pulse Ox 97.8 F 119 H 20 106/64 97 10/27/16 17:16 10/27/16 17:16 10/27/16 17:16 10/27/16 17:16 10/27/16 06:00 Intake and Output: 10/27/16 10/27/16 06:59 18:59 Intake Total 500 Balance 500 - Medications Medications: Current Medications Furosemide (Lasix) 80 mg IVP Q6H [facility] Last Admin: 10/27/16 12:45 Dose: 80 mg Guaifenesin (Mucinex La) 600 mg PO BID [facility] Last Admin: 10/27/16 11:44 Dose: 600 mg Dobutamine HCl/Dextrose (Dobutamine/Dextrose 5% 500mg/250ml) 500 mg in 250 mls @ 5.885 mls/hr IV .Q24H PRN; Protocol; 2.5 MCG/KG/MIN PRN Reason: TITRATE PER PROTOCOL Last Admin: 10/27/16 06:45 Dose: 5.885 mls/hr Insulin Detemir (Levemir) 24 unit SC DAILY [facility] Last Admin: 10/27/16 11:00 Dose: 24 unit Insulin Human Lispro (Humalog) 5 units SC ACHS [facility] Last Admin: 10/27/16 12:38 Dose: 5 units Insulin Human Lispro (Humalog Low) 0 units SC ACHS [facility] PRN Reason: Protocol Last Admin: 10/27/16 12:44 Dose: 3 units Lactobacillus Acidophilus (Bacid Acidophilus) 1 cap PO BID [facility] Last Admin: 10/27/16 11:44 Dose: 1 cap Levothyroxine Sodium (Synthroid) 125 mcg PO ACB [facility] Last Admin: 10/27/16 09:06 Dose: 125 mcg Lorazepam (Ativan) 0.25 mg PO HS [facility] PRN Reason: Protocol Metoprolol Tartrate (Lopressor) 50 mg PO BID [facility] Last Admin: 10/23/16 10:15 Dose: Not Given Pantoprazole Sodium (Protonix Inj) 40 mg IVP 0600 [facility] Last Admin: 10/27/16 06:44 Dose: 40 mg Polyethylene Glycol (Miralax) 17 gm PO BID [facility] Last Admin: 10/21/16 19:12 Dose: Not Given Potassium Chloride (K-Dur 20 Meq Er Tab) 20 meq PO BID [facility] Last Admin: 10/27/16 11:00 Dose: 20 meq Risperidone (Risperdal Tab) 1 mg PO HS [facility] PRN Reason: Protocol Last Admin: 10/18/16 21:17 Dose: 1 mg Spironolactone (Aldactone) 25 mg PO BID [facility] Last Admin: 10/27/16 12:00 Dose: 25 mg Torsemide (Demadex) 20 mg PO Q12H [facility] Last Admin: 10/26/16 20:25 Dose: 20 mg - Labs Labs: 10/27/16 05:50 10/27/16 05:50 PT 12.0 Seconds (9.9-11.8) H 10/20/16 09:29 INR 1.11 (0.93-1.08) H 10/20/16 09:29 APTT 27.8 Seconds (23.7-30.8) 10/20/16 09:29 - Additional Findings Additional findings: - Constitutional Appears: Well, No Acute Distress, Older Than Stated Age, Chronically Ill, Other (very alert and responds appropriately ) - Head Exam Head Exam: ATRAUMATIC, NORMAL INSPECTION, NORMOCEPHALIC - Eye Exam Eye Exam: EOMI, Normal appearance, PERRL Pupil Exam: NORMAL ACCOMODATION, PERRL - ENT Exam ENT Exam: Mucous Membranes Moist, Normal Exam - Respiratory Exam Respiratory Exam: NORMAL BREATHING PATTERN, Crackles (at bases L>R, but better than when on admission). absent: Accessory Muscle Use, Chest Wall Tenderness, Prolonged Expiratory Phase, Rhonchi, Wheezes, Respiratory Distress, Stridor - Cardiovascular Exam Cardiovascular Exam: RRR, +S1, +S2. absent: Gallop, JVD, Rubs, Murmur - GI/Abdominal Exam GI & Abdominal Exam: Soft, Tenderness (pt verbalizes that she had pain on palpation, but doesn't grimace or withdraw from pain), Normal Bowel Sounds. absent: Distended, Firm, Guarding, Rigid, Diminished Bowel Sounds, Organomegaly Additional comments: obese - Neurological Exam Neurological Exam: Alert, Awake. absent: Motor Sensory Deficit - Psychiatric Exam Psychiatric exam: Normal Affect, Normal Mood - Skin Skin Exam: Normal Color, Warm. absent: Cyanosis, Pallor - Additional Findings Additional findings: PICC line LUE day 3. Patient was assisted by hand to sit up in bed for her lungs to be auscultated, and did not grimace when hand was squeezed tightly Assessment and Plan - Assessment and Plan (Free Text) Plan: 51 y/o female with PMHx of DM2, CHF (EF 30% in 10/2016), HTN, chronic pulmonary effusion, HTN, DVT, PE, hypothyroidism, PSH of lap mitchell in 05/2016 and psych hx of schizophrenia and Bipolar disorder presented to the ED with complaints of abdominal pain x1week. Patient was extubated on 10/15, and is on tele. HHS improved, pt extubated and in NAD, increased edema in all 4 extremities. s/p 7 days of Doxycycline and 6 days of Meronepem. Pt received PICC line day 3. Anasarca - BP stable - holding fluids due to CHF and edema - Lasix 80mg Q8, per nephro - Torsemide 20mg Q12 for added diuresis, per nephro - ECHO (10/18): EF 30%, severe MR, large pleural effusion - Pulm consulted, recs appreciated - Nephro consulted, recs appreciated - daily weight: 176.1lbs (weights are unreliable due to inconsistency of measuring pt in bed or standing on scale) - I/O: 1400/1059; a suction inflow device (similar to Witt) was placed so strict I/O's can be measured Hypotension, improved - cont dobutamine 2.5 mcg/kg/min, per cards recs - dobutamine can be d/c tomorrow per Nephro recs - Cards consulted, recs appreciated - Pt on tele for closer monitoring of BP UTI - UCx 10/19 growing VRE - UCx re-ordered, urine collected via suction device - Blood cultures no growth - ID consulted, recs appreciated - WBC 11.7 (trending down, pt asymptomatic) Hypokalemia, being repleted - K 3.1 Anemia - H/H: 8.9/26.3 stabilizing - iron 30/TIBC 374/Ferritin 78.2 - recommended for pt to take Iron pills after d/c Hyponatremia likely dilutional - Na 128, resolved - Renal consult, recs appreciated DM2, HONK resolved - FS 180's-310's - continue Lispro 5mg ACHS, Levemir increased to 24u daily, cont Humalog - monitor closely AMS - Ativan and Risperidone held - improving, pt is more responsive today Hypothermia - Temp 97F - extremities feel warmer today Transaminits, asymptomatic likely 2/2 decreased perfuion - AST 47, ALT 166 - hepatitis serologies negative for Hep A, B and C antibodies - GI consult for colitis, recs appreciated Abdominal pain, improving but likely due to edema - hepatitis negative, legionella negative - ALP trending down (425) improving - Hx lap mitchell in May 2016 Hypothyroid - Synthroid 125mcg PO Diarrhea, resolved - started on Lactobacillus Acidophilus - c diff negative - pt on miralax Congested cough, resolved - cont Mucinex Dispo: Palliative care nurse discussing with pt and sister in law ([phone] ) regarding advanced directives and dispo PTX/Eliquis Patient was seen, discussed and evaluated with attending, Dr. Perry Holcomb, PGY1 <Annmarie Amador - Last Filed: 10/28/16 14:52> Objective - Vital Signs/Intake and Output Vital Signs (last 24 hours): Temp Pulse Resp BP Pulse Ox 98.8 F 85 18 119/67 97 10/28/16 12:00 10/28/16 12:00 10/28/16 12:00 10/28/16 13:56 10/27/16 06:00 Intake and Output: 10/28/16 10/28/16 06:59 18:59 Intake Total 1899 Output Total 6500 Balance -4601 - Medications Medications: Current Medications Furosemide (Lasix) 40 mg IVP 0600,1400,2200 [facility] Last Admin: 10/28/16 13:56 Dose: 40 mg Guaifenesin (Mucinex La) 600 mg PO BID [facility] Last Admin: 10/28/16 10:08 Dose: 600 mg Dobutamine HCl/Dextrose (Dobutamine/Dextrose 5% 500mg/250ml) 500 mg in 250 mls @ 5.885 mls/hr IV .Q24H PRN; Protocol; 2.5 MCG/KG/MIN PRN Reason: TITRATE PER PROTOCOL Last Admin: 10/27/16 06:45 Dose: 5.885 mls/hr Insulin Detemir (Levemir) 24 unit SC DAILY [facility] Last Admin: 10/28/16 10:08 Dose: 24 unit Insulin Human Lispro (Humalog) 5 units SC ACHS [facility] Last Admin: 10/28/16 12:26 Dose: 5 units Insulin Human Lispro (Humalog Low) 0 units SC ACHS [facility] PRN Reason: Protocol Last Admin: 10/28/16 12:27 Dose: 2 units Lactobacillus Acidophilus (Bacid Acidophilus) 1 cap PO BID [facility] Last Admin: 10/28/16 10:08 Dose: 1 cap Levothyroxine Sodium (Synthroid) 125 mcg PO ACB [facility] Last Admin: 10/28/16 08:53 Dose: 125 mcg Lorazepam (Ativan) 0.25 mg PO HS [facility] PRN Reason: Protocol Metoprolol Tartrate (Lopressor) 50 mg PO BID [facility] Last Admin: 10/23/16 10:15 Dose: Not Given Pantoprazole Sodium (Protonix Inj) 40 mg IVP 0600 [facility] Last Admin: 10/28/16 05:43 Dose: 40 mg Polyethylene Glycol (Miralax) 17 gm PO BID [facility] Last Admin: 10/21/16 19:12 Dose: Not Given Polysaccharide Iron Complex (Ferrex-150) 150 mg PO DAILY [facility] Last Admin: 10/28/16 13:56 Dose: 150 mg Potassium Chloride (K-Dur 20 Meq Er Tab) 40 meq PO QID [facility] Last Admin: 10/28/16 13:57 Dose: 40 meq Risperidone (Risperdal Tab) 1 mg PO HS [facility] PRN Reason: Protocol Last Admin: 10/18/16 21:17 Dose: 1 mg Spironolactone (Aldactone) 50 mg PO BID [facility] Tramadol HCl (Ultram) 50 mg PO TID [facility] PRN Reason: Pain, moderate (4-7) Last Admin: 10/28/16 14:38 Dose: 50 mg - Labs Labs: 10/28/16 06:45 10/28/16 06:45 PT 12.0 Seconds (9.9-11.8) H 10/20/16 09:29 INR 1.11 (0.93-1.08) H 10/20/16 09:29 APTT 27.8 Seconds (23.7-30.8) 10/20/16 09:29 Attending/Attestation - Attestation I have personally seen and examined this patient.: Yes I have fully participated in the care of the patient.: Yes I have reviewed all pertinent clinical information, including history, physical exam and plan: Yes Notes (Text): I have seen and examined patient at bedside. Agree with the above note with the following additions/ exceptions: Briefly this is 51 year old female with history of DM-2, CHF(EF~30%), HTN, chronic pulmonary effusion, HTN, DVT, PE on eliquis, hypothyroidism, schizophrenia and Bipolar disorder who presented initially with diffuse abdominal pain and confusion and found to be in HONK and code sepsis was called most likely due to HCAP vs abdominal etiology( Suspected colitis on CT scan). She completed meropenem and doxy. Active issues include hyponatremia and anasarca. She is on lasix, torsemide and fluid restriction. Sodium improved to 128. Plan to keep dobutamine for today. Witt catheter will be placed today to monitor accurate Is and Os. Patient was offered to take iron pills however she refused. Urine cultures revealed VRE. Repeat urine cultures ordered. Blood cultures are negative. Stool for cdiff negative. She is off antibiotics. LFT's are improving. Palliative care consult appreciated. Patient remains full code. PT recommended MITCH. Upon discharge patient will follow up with Dr Roman. Dr Annmarie Amador
--- NOTE | 2016-10-27 18:37 | CP.PCM.PN ---
Subjective - Date & Time of Evaluation Date of Evaluation: 10/27/16 Time of Evaluation: 10:30 - Subjective Subjective: Patient reporting abd discomfort; said she urinated 4 times overnight; no more diarrhea; Objective - Vital Signs/Intake and Output Vital Signs (last 24 hours): Temp Pulse Resp BP Pulse Ox 97.8 F 119 H 20 106/64 97 10/27/16 17:16 10/27/16 17:16 10/27/16 17:16 10/27/16 17:16 10/27/16 06:00 Intake and Output: 10/27/16 10/27/16 06:59 18:59 Intake Total 500 Balance 500 - Medications Medications: Current Medications Furosemide (Lasix) 80 mg IVP Q6H [facility] Last Admin: 10/27/16 12:45 Dose: 80 mg Guaifenesin (Mucinex La) 600 mg PO BID [facility] Last Admin: 10/27/16 11:44 Dose: 600 mg Dobutamine HCl/Dextrose (Dobutamine/Dextrose 5% 500mg/250ml) 500 mg in 250 mls @ 5.885 mls/hr IV .Q24H PRN; Protocol; 2.5 MCG/KG/MIN PRN Reason: TITRATE PER PROTOCOL Last Admin: 10/27/16 06:45 Dose: 5.885 mls/hr Insulin Detemir (Levemir) 24 unit SC DAILY [facility] Last Admin: 10/27/16 11:00 Dose: 24 unit Insulin Human Lispro (Humalog) 5 units SC [facility] Last Admin: 10/27/16 12:38 Dose: 5 units Insulin Human Lispro (Humalog Low) 0 units SC [facility] PRN Reason: Protocol Last Admin: 10/27/16 12:44 Dose: 3 units Lactobacillus Acidophilus (Bacid Acidophilus) 1 cap PO BID [facility] Last Admin: 10/27/16 11:44 Dose: 1 cap Levothyroxine Sodium (Synthroid) 125 mcg PO ACB [facility] Last Admin: 10/27/16 09:06 Dose: 125 mcg Lorazepam (Ativan) 0.25 mg PO HS [facility] PRN Reason: Protocol Metoprolol Tartrate (Lopressor) 50 mg PO BID [facility] Last Admin: 10/23/16 10:15 Dose: Not Given Pantoprazole Sodium (Protonix Inj) 40 mg IVP 0600 [facility] Last Admin: 10/27/16 06:44 Dose: 40 mg Polyethylene Glycol (Miralax) 17 gm PO BID [facility] Last Admin: 10/21/16 19:12 Dose: Not Given Potassium Chloride (K-Dur 20 Meq Er Tab) 20 meq PO BID [facility] Last Admin: 10/27/16 11:00 Dose: 20 meq Risperidone (Risperdal Tab) 1 mg PO HS [facility] PRN Reason: Protocol Last Admin: 10/18/16 21:17 Dose: 1 mg Spironolactone (Aldactone) 25 mg PO BID [facility] Last Admin: 10/27/16 12:00 Dose: 25 mg Torsemide (Demadex) 20 mg PO Q12H [facility] Last Admin: 10/26/16 20:25 Dose: 20 mg - Labs Labs: 10/27/16 05:50 10/27/16 05:50 PT 12.0 Seconds (9.9-11.8) H 10/20/16 09:29 INR 1.11 (0.93-1.08) H 10/20/16 09:29 APTT 27.8 Seconds (23.7-30.8) 10/20/16 09:29 - Constitutional Appears: Non-toxic, No Acute Distress - Head Exam Head Exam: NORMAL INSPECTION - Eye Exam Eye Exam: Normal appearance. absent: Scleral icterus - ENT Exam ENT Exam: Mucous Membranes Moist - Respiratory Exam Respiratory Exam: Clear to Ausculation Bilateral. absent: Rales, Rhonchi, Wheezes, Respiratory Distress - Cardiovascular Exam Cardiovascular Exam: Tachycardia, +S1, +S2 Additional comments: subtle S3 present; - GI/Abdominal Exam GI & Abdominal Exam: Soft, Tenderness Additional comments: mild abd tenderness; - Exam Exam: absent: Bladder Distension - Extremities Exam Extremities Exam: Normal Capillary Refill Additional comments: anasarca; leg edema extending till low back/abd wall; slightly improved; - Neurological Exam Neurological Exam: Alert, Awake - Psychiatric Exam Psychiatric exam: Agitated - Skin Skin Exam: Normal Color, Warm. absent: Cyanosis Assessment and Plan (1) Acute renal failure Assessment & Plan: Cardiorenal etiology in the setting of severe systolic dysfunction; renal function improving on inotropic support and with decreasing venous congestion through aggressive diuresis; -Increasing lasix 80 mg IVP from q8 to q6h; no need for torsemide (was added due to patient refusing meds on occasion); -Avoid nephrotoxic agents -strict I/O, consistent weights (176 lbs today was standing unlike previous weights) Status: Acute (2) Hyponatremia Assessment & Plan: Improved; in the setting of severely decompensated CHF; giving dose of tolvaptan 30 mg today so that we can start aldactone without having to worry about Na decreasing with it; Status: Acute (3) CHF (congestive heart failure) Assessment & Plan: Acute on chronic severely decompensated systolic CHF; inotropic support and aggressive diuresis for preload reduction appears to be working; increasing lasix as above; adding aldactone 25 mg bid for further diuretic effect (as well as benefit in heart failure); patient likely will not need ultrafiltration; -f/u with cardiology for timing of resumption of B-blockers Status: Acute (4) Metabolic acidosis Assessment & Plan: Resolved; was secondary to diarrhea; metabolic alkalosis now ensuing due to loop diuretics; addition of aldactone should help; Status: Resolved (5) Sepsis Assessment & Plan: Currently off all abx; f/u with ID; should dose any abx for CrCl ~30-60 for now; Status: Acute (6) Anemia Assessment & Plan: Secondary to iron deficiency and chronic disease; consider starting IV iron if patient infection-free; Status: Acute
[2016-10-28 07:20] LABS: HEMOGLOBIN 8.5 gm/dL (12.0-16.0); MEAN CORPUSCULAR HEMOGLOBIN 24.9 pg (25.0-35.0); MEAN CORPUSCULAR HGB CONC 32.7 g/dl (31.0-37.0); MEAN PLATELET VOLUME 9.2 fl (7.0-11.0); RBC 3.42 10^6/uL (3.5-6.1); RED CELL DISTRIBUTION WIDTH 20.3 % (11.5-14.5); WHITE BLOOD COUNT 10.5 10^3/ul (4.5-11.0)
[2016-10-28 07:44] LABS: ALB/GLOB RATIO 0.9 (1.1-1.8); ALBUMIN 2.8 g/dL (3.0-4.8); CALCIUM 8.2 mg/dL (8.4-10.5)
[2016-10-28] MEDS: Insulin Lispro (humaLOG) LOW Coverage SC SCH ×4 (08:46→22:27)
[2016-10-28] MEDS: Insulin Lispro 1 UNITS/0.01 ML SC SCH ×4 (08:52→21:43)
[2016-10-28] MEDS: Levothyroxine 125 MCG TAB PO SCH (08:53)
[2016-10-28] MEDS ORDERED: Potassium Chloride 20 mEq ER Tab PO STA (08:59)
[2016-10-28] MEDS: Insulin Detemir 100 units/ml Vial (Levemir) SC SCH (10:08)
[2016-10-28] MEDS: guaiFENesin 600 mg ER Tab PO SCH ×2 (10:08→18:02)
[2016-10-28] MEDS: Lactobacillus Acidophilus 500 MU Cap PO SCH ×2 (10:08→18:01)
[2016-10-28] MEDS: Potassium Chloride 20 mEq ER Tab PO SCH ×4 (10:09→21:40)
--- NOTE | 2016-10-28 11:20 | CP.PCM.PN ---
Subjective - Date & Time of Evaluation Date of Evaluation: 10/28/16 Time of Evaluation: 09:50 - Subjective Subjective: Comfortable on a chair, afebrile, not in distress. Objective - Vital Signs/Intake and Output Vital Signs (last 24 hours): Temp Pulse Resp BP Pulse Ox 98.2 F 129 H 20 102/62 97 10/28/16 06:00 10/28/16 06:00 10/28/16 06:00 10/28/16 06:00 10/27/16 06:00 Intake and Output: 10/28/16 10/28/16 06:59 18:59 Intake Total 1899 Output Total 6500 Balance -4601 - Medications Medications: Current Medications Furosemide (Lasix) 40 mg IVP 0600,1400,2200 [facility] Guaifenesin (Mucinex La) 600 mg PO BID [facility] Last Admin: 10/27/16 18:49 Dose: 600 mg Dobutamine HCl/Dextrose (Dobutamine/Dextrose 5% 500mg/250ml) 500 mg in 250 mls @ 5.885 mls/hr IV .Q24H PRN; Protocol; 2.5 MCG/KG/MIN PRN Reason: TITRATE PER PROTOCOL Last Admin: 10/27/16 06:45 Dose: 5.885 mls/hr Potassium Chloride (Potassium Chloride 20 Meq/100 Ml) 20 meq in 100 mls @ 50 mls/hr IVPB ONCE ONE Stop: 10/28/16 10:26 Insulin Detemir (Levemir) 24 unit SC DAILY [facility] Last Admin: 10/27/16 11:00 Dose: 24 unit Insulin Human Lispro (Humalog) 5 units SC ACHS [facility] Last Admin: 10/27/16 22:06 Dose: 5 units Insulin Human Lispro (Humalog Low) 0 units SC ACHS [facility] PRN Reason: Protocol Last Admin: 10/27/16 22:05 Dose: Not Given Lactobacillus Acidophilus (Bacid Acidophilus) 1 cap PO BID [facility] Last Admin: 10/27/16 18:50 Dose: 1 cap Levothyroxine Sodium (Synthroid) 125 mcg PO ACB [facility] Last Admin: 10/27/16 09:06 Dose: 125 mcg Lorazepam (Ativan) 0.25 mg PO HS [facility] PRN Reason: Protocol Metoprolol Tartrate (Lopressor) 50 mg PO BID [facility] Last Admin: 10/23/16 10:15 Dose: Not Given Pantoprazole Sodium (Protonix Inj) 40 mg IVP 0600 [facility] Last Admin: 10/28/16 05:43 Dose: 40 mg Polyethylene Glycol (Miralax) 17 gm PO BID [facility] Last Admin: 10/21/16 19:12 Dose: Not Given Potassium Chloride (K-Dur 20 Meq Er Tab) 20 meq PO BID [facility] Last Admin: 10/27/16 18:30 Dose: 20 meq Risperidone (Risperdal Tab) 1 mg PO HS [facility] PRN Reason: Protocol Last Admin: 10/18/16 21:17 Dose: 1 mg Spironolactone (Aldactone) 25 mg PO BID [facility] Last Admin: 10/27/16 18:49 Dose: 25 mg Torsemide (Demadex) 20 mg PO Q12H [facility] Last Admin: 10/27/16 19:17 Dose: Not Given - Labs Labs: 10/28/16 06:45 10/28/16 06:45 PT 12.0 Seconds (9.9-11.8) H 10/20/16 09:29 INR 1.11 (0.93-1.08) H 10/20/16 09:29 APTT 27.8 Seconds (23.7-30.8) 10/20/16 09:29 - Constitutional Appears: Non-toxic, No Acute Distress - Head Exam Head Exam: NORMAL INSPECTION - Neck Exam Neck Exam: absent: Meningismus - Respiratory Exam Respiratory Exam: Decreased Breath Sounds - Cardiovascular Exam Cardiovascular Exam: +S1, +S2 - GI/Abdominal Exam GI & Abdominal Exam: Soft. absent: Tenderness Assessment and Plan - Assessment and Plan (Free Text) Plan: Assessment S/P severe sepsis S/P hypoxic ventilator-dependent respiratory failure probably due to bilateral lower lobe healthcare-associated pneumonia with possible gram positive cocci, gram negative bacilli and/or atypical organisms, with associated hyperglycemic, hyperosmolar state with also acute pancreatitis, etiology to be determined - clinically improved and now off antibiotics - had hypotensive episodes probably meds-related VRE in the urine, probably asymptomatic bacteriuria, continues to be asymptomatic chronic congestive heart failure due to cardiomyopathy elevated Alk phos and transaminases in a patient with pancreatitis as well as hepatic congestion history of healthcare-associated pneumonia, right middle lobe history of bilateral healthcare-associated pneumonia in this patient chronic heart failure S/P acute cholecystitis, S/P laparoscopic cholecystectomy CAD with chronic CHF DM HTN history of migraines bipolar disorder Plan S/P 6 days of Merrem and Doxycycline - will continue to monitor off antibiotics since she is at risk for nosocomial infections
--- NOTE | 2016-10-28 12:53 | CP.PCM.PN ---
Subjective - Date & Time of Evaluation Date of Evaluation: 10/28/16 Time of Evaluation: 11:00 - Subjective Subjective: Tolerating diet; reports abd being softer; Objective - Vital Signs/Intake and Output Vital Signs (last 24 hours): Temp Pulse Resp BP Pulse Ox 98.8 F 85 18 119/67 97 10/28/16 12:00 10/28/16 12:00 10/28/16 12:00 10/28/16 12:00 10/27/16 06:00 Intake and Output: 10/28/16 10/28/16 06:59 18:59 Intake Total 1899 Output Total 6500 Balance -4601 - Medications Medications: Current Medications Furosemide (Lasix) 40 mg IVP 0600,1400,2200 [facility] Guaifenesin (Mucinex La) 600 mg PO BID [facility] Last Admin: 10/28/16 10:08 Dose: 600 mg Dobutamine HCl/Dextrose (Dobutamine/Dextrose 5% 500mg/250ml) 500 mg in 250 mls @ 5.885 mls/hr IV .Q24H PRN; Protocol; 2.5 MCG/KG/MIN PRN Reason: TITRATE PER PROTOCOL Last Admin: 10/27/16 06:45 Dose: 5.885 mls/hr Insulin Detemir (Levemir) 24 unit SC DAILY [facility] Last Admin: 10/28/16 10:08 Dose: 24 unit Insulin Human Lispro (Humalog) 5 units SC ACHS [facility] Last Admin: 10/28/16 12:26 Dose: 5 units Insulin Human Lispro (Humalog Low) 0 units SC [facility] PRN Reason: Protocol Last Admin: 10/28/16 12:27 Dose: 2 units Lactobacillus Acidophilus (Bacid Acidophilus) 1 cap PO BID [facility] Last Admin: 10/28/16 10:08 Dose: 1 cap Levothyroxine Sodium (Synthroid) 125 mcg PO ACB [facility] Last Admin: 10/28/16 08:53 Dose: 125 mcg Lorazepam (Ativan) 0.25 mg PO HS [facility] PRN Reason: Protocol Metoprolol Tartrate (Lopressor) 50 mg PO BID [facility] Last Admin: 10/23/16 10:15 Dose: Not Given Pantoprazole Sodium (Protonix Inj) 40 mg IVP 0600 [facility] Last Admin: 10/28/16 05:43 Dose: 40 mg Polyethylene Glycol (Miralax) 17 gm PO BID [facility] Last Admin: 10/21/16 19:12 Dose: Not Given Potassium Chloride (K-Dur 20 Meq Er Tab) 40 meq PO QID [facility] Last Admin: 10/28/16 10:09 Dose: 40 meq Risperidone (Risperdal Tab) 1 mg PO HS [facility] PRN Reason: Protocol Last Admin: 10/18/16 21:17 Dose: 1 mg Spironolactone (Aldactone) 50 mg PO BID [facility] - Labs Labs: 10/28/16 06:45 10/28/16 06:45 PT 12.0 Seconds (9.9-11.8) H 10/20/16 09:29 INR 1.11 (0.93-1.08) H 10/20/16 09:29 APTT 27.8 Seconds (23.7-30.8) 10/20/16 09:29 - Constitutional Appears: Non-toxic, No Acute Distress - Head Exam Head Exam: NORMAL INSPECTION - Eye Exam Eye Exam: Normal appearance. absent: Scleral icterus - ENT Exam ENT Exam: Mucous Membranes Moist - Respiratory Exam Respiratory Exam: Clear to Ausculation Bilateral. absent: Rales, Rhonchi, Wheezes - Cardiovascular Exam Cardiovascular Exam: REGULAR RHYTHM, +S1, +S2 - GI/Abdominal Exam GI & Abdominal Exam: Soft, Tenderness - Exam Additional comments: pickens in place - Neurological Exam Neurological Exam: Alert, Awake - Skin Skin Exam: Normal Color, Warm. absent: Cyanosis Assessment and Plan (1) Acute renal failure Assessment & Plan: Cardiorenal etiology; serum creatinine had been improving with diuresis, slightly worsened today, likely due to overly aggressive diuresis; -decreasing IV lasix from 80 mg to 40 mg q8h; Status: Acute (2) Hyponatremia Assessment & Plan: In the setting of severely decompensated CHF; responded well to tolvaptan 30 mg ; continue to monitor, need to continue fluid restriction; Status: Acute (3) CHF (congestive heart failure) Assessment & Plan: Severely decompnensated systolic CHF, responding well to inotropic agent and increased IV lasix dose with significantly less edema today; decreasing IV lasix dose to avoid over-diuresis; increasing aldactone to 50 mg bid; -need to aggressively replenish K Status: Acute (4) Metabolic acidosis Assessment & Plan: Secondary to diarrhea, resolved; now metabolic alkalosis from loop diuretics; dose being decreased, increased dose of aldactone should also help; Status: Resolved (5) Sepsis Status: Acute (6) Anemia Assessment & Plan: Secondary to iron deficiency and chronic disease; consider IV iron; Status: Acute
--- NOTE | 2016-10-28 13:25 | CP.PCM.PN ---
<SAROJ HOLCOMB - Last Filed: 10/28/16 13:20> Subjective - Date & Time of Evaluation Date of Evaluation: 10/28/16 Time of Evaluation: 10:00 - Subjective Subjective: patient as seen and examined at bedside this morning. pt complains of the usual pain but states that her swelling has improved. It was explained to the pt that her potassium level is critically low and that we would need to replete her potassium. Nurse had stated earlier that pt refused the IV potassium because it dickens. The adverse effects of not repleting potassium and its effect on the heart were explained to the patient but she would only take them by mouth. Objective - Vital Signs/Intake and Output Vital Signs (last 24 hours): Temp Pulse Resp BP Pulse Ox 98.8 F 85 18 119/67 97 10/28/16 12:00 10/28/16 12:00 10/28/16 12:00 10/28/16 12:00 10/27/16 06:00 Intake and Output: 10/28/16 10/28/16 06:59 18:59 Intake Total 1899 Output Total 6500 Balance -4601 - Medications Medications: Current Medications Furosemide (Lasix) 40 mg IVP 0600,1400,2200 [facility] Guaifenesin (Mucinex La) 600 mg PO BID [facility] Last Admin: 10/28/16 10:08 Dose: 600 mg Dobutamine HCl/Dextrose (Dobutamine/Dextrose 5% 500mg/250ml) 500 mg in 250 mls @ 5.885 mls/hr IV .Q24H PRN; Protocol; 2.5 MCG/KG/MIN PRN Reason: TITRATE PER PROTOCOL Last Admin: 10/27/16 06:45 Dose: 5.885 mls/hr Insulin Detemir (Levemir) 24 unit SC DAILY [facility] Last Admin: 10/28/16 10:08 Dose: 24 unit Insulin Human Lispro (Humalog) 5 units SC ACHS [facility] Last Admin: 10/28/16 12:26 Dose: 5 units Insulin Human Lispro (Humalog Low) 0 units SC ACHS [facility] PRN Reason: Protocol Last Admin: 10/28/16 12:27 Dose: 2 units Lactobacillus Acidophilus (Bacid Acidophilus) 1 cap PO BID [facility] Last Admin: 10/28/16 10:08 Dose: 1 cap Levothyroxine Sodium (Synthroid) 125 mcg PO ACB [facility] Last Admin: 10/28/16 08:53 Dose: 125 mcg Lorazepam (Ativan) 0.25 mg PO HS [facility] PRN Reason: Protocol Metoprolol Tartrate (Lopressor) 50 mg PO BID [facility] Last Admin: 10/23/16 10:15 Dose: Not Given Pantoprazole Sodium (Protonix Inj) 40 mg IVP 0600 [facility] Last Admin: 10/28/16 05:43 Dose: 40 mg Polyethylene Glycol (Miralax) 17 gm PO BID [facility] Last Admin: 10/21/16 19:12 Dose: Not Given Polysaccharide Iron Complex (Ferrex-150) 150 mg PO DAILY [facility] Potassium Chloride (K-Dur 20 Meq Er Tab) 40 meq PO QID [facility] Last Admin: 10/28/16 10:09 Dose: 40 meq Risperidone (Risperdal Tab) 1 mg PO HS [facility] PRN Reason: Protocol Last Admin: 10/18/16 21:17 Dose: 1 mg Spironolactone (Aldactone) 50 mg PO BID [facility] - Labs Labs: 10/28/16 06:45 10/28/16 06:45 PT 12.0 Seconds (9.9-11.8) H 10/20/16 09:29 INR 1.11 (0.93-1.08) H 10/20/16 09:29 APTT 27.8 Seconds (23.7-30.8) 10/20/16 09:29 - Constitutional Appears: Well, Non-toxic, No Acute Distress, Unkempt, Older Than Stated Age - Head Exam Head Exam: ATRAUMATIC, NORMAL INSPECTION, NORMOCEPHALIC - Eye Exam Eye Exam: EOMI, Normal appearance, PERRL. absent: Conjunctival injection, Nystagmus, Periorbital swelling, Periorbital tenderness, Scleral icterus Pupil Exam: NORMAL ACCOMODATION - ENT Exam ENT Exam: Mucous Membranes Moist, Normal Exam - Neck Exam Neck Exam: Full ROM, Normal Inspection. absent: Lymphadenopathy, Tenderness, Thyromegaly - Respiratory Exam Respiratory Exam: Clear to Ausculation Bilateral, Rales (mild in LLE ), NORMAL BREATHING PATTERN. absent: Accessory Muscle Use, Chest Wall Tenderness, Prolonged Expiratory Phase, Rhonchi, Wheezes, Respiratory Distress, Stridor - Cardiovascular Exam Cardiovascular Exam: Tachycardia (130's), REGULAR RHYTHM, +S1, +S2. absent: Gallop, JVD, Rubs, Murmur - GI/Abdominal Exam GI & Abdominal Exam: Soft, Tenderness, Normal Bowel Sounds. absent: Bruit, Distended, Firm, Guarding, Rigid, Hernia, Mass, Organomegaly, Pulsatile Mass, Rebound Additional comments: obese body habitus - Extremities Exam Extremities Exam: Normal Inspection, Pedal Edema, Tenderness. absent: Joint Swelling Additional comments: edema in 4 extremities has improved significantly from prior exams. UE edema b/ l almost resolved - Neurological Exam Neurological Exam: Alert, Awake, Oriented x3. absent: Motor Sensory Deficit - Psychiatric Exam Psychiatric exam: Normal Affect, Normal Mood - Skin Skin Exam: Normal Color, Warm. absent: Cyanosis, Diaphoretic, Erythema, Mottled , Pallor, Rash - Additional Findings Additional findings: PICC line LUE day 4 Assessment and Plan - Assessment and Plan (Free Text) Plan: 51 y/o female with PMHx of DM2, CHF (EF 30% in 10/2016), HTN, chronic pulmonary effusion, HTN, DVT, PE, hypothyroidism, PSH of lap mitchell in 05/2016 and psych hx of schizophrenia and Bipolar disorder presented to the ED with complaints of abdominal pain. Patient was extubated on 10/15, and is on tele for closer monitoring. HHS improved, pt extubated and in NAD, decreasing anasarca. s/p 7 days of Doxycycline and 6 days of Meronepem. Pt received PICC line day 4. 1. Anasarca, improving - Per Dr. French: Sat 10/29, if pt continues to improve off dobutamine, d/c Lasix and start Bumex 1mg Q8; if that doesn't work then increase to Bumex 2mg Q8 - holding fluids due to CHF and edema - Lasix 40mg Q8, and Aldactone 50mg BID per nephro - Torsemide discontinued - ECHO (10/18): EF 30%, severe MR, large pleural effusion - Pulm consulted, recs appreciated - Nephro consulted, recs appreciated - daily weight: 147lbs (weights are unreliable due to inconsistency of measuring pt in bed or standing on scale, yesterday was 176lbs) - I/O: 1900/6500; measured via a suction inflow device (placed 10/27 but should be switched daily) 2. Tachycardia, P 85-130 - d/c dobutamine, per nephro recs - Cardio consulted, recs appreciated - continue to monitor closely 3. Hypokalemia, being repleted - K 2.7 - PO Kdur 40mg QID; pt refusing IV Potassium - f/u K level today at 1400 4. UTI - UCx re-ordered, urine collected today via suction device - UCx 10/19 growing VRE (patient on contact precautions) - Blood cultures no growth - ID consulted, recs appreciated - WBC 10.5 (trending down, pt asymptomatic) 5. Anemia - H/H: 8.5 stabilizing - iron 30/TIBC 374/Ferritin 78.2 - Ferrex started 6. DM2, HONK resolved - FS 80's-300's - continue Lispro 5mg ACHS, Levemir increased to 24u daily, cont Humalog 7. Hypothermia, resolved - Temp 98.8F 8. Transaminits, resolving and was likely 2/2 decreased perfusion - AST 50, ALT 133 - hepatitis serologies negative for Hep A, B and C antibodies - GI consult for colitis, recs appreciated 9. Abdominal pain, improving but likely due to edema - hepatitis negative, legionella negative - ALP trending down (365) improving - Hx lap mitchell in May 2016 10. Hypothyroid - Synthroid 125mcg PO 11. Hypotension, resolved 12. Hyponatremia likely dilutional, resolved 13. AMS, resolved - Ativan and Risperidone held 14. Diarrhea, resolved 15. Congested cough, resolved Dispo: Palliative care nurse discussing with pt and sister in law ([phone] ) regarding advanced directives and dispo PTX/Eliquis Patient was seen, discussed and evaluated with attending, Dr. Perry Holcomb, PGY1 <Annmarie Amador - Last Filed: 10/28/16 15:00> Objective - Vital Signs/Intake and Output Vital Signs (last 24 hours): Temp Pulse Resp BP Pulse Ox 98.8 F 85 18 119/67 97 10/28/16 12:00 10/28/16 12:00 10/28/16 12:00 10/28/16 13:56 10/27/16 06:00 Intake and Output: 10/28/16 10/28/16 06:59 18:59 Intake Total 1899 Output Total 6500 Balance -4601 - Medications Medications: Current Medications Furosemide (Lasix) 40 mg IVP 0600,1400,2200 [facility] Last Admin: 10/28/16 13:56 Dose: 40 mg Guaifenesin (Mucinex La) 600 mg PO BID [facility] Last Admin: 10/28/16 10:08 Dose: 600 mg Dobutamine HCl/Dextrose (Dobutamine/Dextrose 5% 500mg/250ml) 500 mg in 250 mls @ 5.885 mls/hr IV .Q24H PRN; Protocol; 2.5 MCG/KG/MIN PRN Reason: TITRATE PER PROTOCOL Last Admin: 10/27/16 06:45 Dose: 5.885 mls/hr Insulin Detemir (Levemir) 24 unit SC DAILY [facility] Last Admin: 10/28/16 10:08 Dose: 24 unit Insulin Human Lispro (Humalog) 5 units SC ACHS [facility] Last Admin: 10/28/16 12:26 Dose: 5 units Insulin Human Lispro (Humalog Low) 0 units SC ACHS [facility] PRN Reason: Protocol Last Admin: 10/28/16 12:27 Dose: 2 units Lactobacillus Acidophilus (Bacid Acidophilus) 1 cap PO BID [facility] Last Admin: 10/28/16 10:08 Dose: 1 cap Levothyroxine Sodium (Synthroid) 125 mcg PO ACB [facility] Last Admin: 10/28/16 08:53 Dose: 125 mcg Lorazepam (Ativan) 0.25 mg PO HS [facility] PRN Reason: Protocol Metoprolol Tartrate (Lopressor) 50 mg PO BID [facility] Last Admin: 10/23/16 10:15 Dose: Not Given Pantoprazole Sodium (Protonix Inj) 40 mg IVP 0600 [facility] Last Admin: 10/28/16 05:43 Dose: 40 mg Polyethylene Glycol (Miralax) 17 gm PO BID [facility] Last Admin: 10/21/16 19:12 Dose: Not Given Polysaccharide Iron Complex (Ferrex-150) 150 mg PO DAILY [facility] Last Admin: 10/28/16 13:56 Dose: 150 mg Potassium Chloride (K-Dur 20 Meq Er Tab) 40 meq PO QID [facility] Last Admin: 10/28/16 13:57 Dose: 40 meq Risperidone (Risperdal Tab) 1 mg PO HS [facility] PRN Reason: Protocol Last Admin: 10/18/16 21:17 Dose: 1 mg Spironolactone (Aldactone) 50 mg PO BID [facility] Tramadol HCl (Ultram) 50 mg PO TID PRN PRN Reason: Pain, moderate (4-7) Last Admin: 10/28/16 14:38 Dose: 50 mg - Labs Labs: 10/28/16 06:45 10/28/16 06:45 PT 12.0 Seconds (9.9-11.8) H 10/20/16 09:29 INR 1.11 (0.93-1.08) H 10/20/16 09:29 APTT 27.8 Seconds (23.7-30.8) 10/20/16 09:29 Attending/Attestation - Attestation I have personally seen and examined this patient.: Yes I have fully participated in the care of the patient.: Yes I have reviewed all pertinent clinical information, including history, physical exam and plan: Yes Notes (Text): I have seen and examined patient at bedside. Agree with the above note with the following additions/ exceptions: Briefly this is 51 year old female with history of DM-2, CHF(EF~30%), HTN, chronic pulmonary effusion, HTN, DVT, PE on eliquis, hypothyroidism, schizophrenia and Bipolar disorder who presented initially with diffuse abdominal pain and confusion and found to be in HONK and code sepsis was called most likely due to HCAP vs abdominal etiology( Suspected colitis on CT scan). She completed meropenem and doxy. Active issues include hyponatremia and anasarca. She is on lasix, torsemide, aldactone and fluid restriction. Sodium improved to 32. DC dobutamine. Will monito patient closely. Continue pickens catheter to monitor accurate Is and Os. Patient was offered to take iron pills however she refused. Urine cultures revealed VRE. Repeat urine cultures ordered. Blood cultures are negative. Stool for cdiff negative. She is off antibiotics. LFT's are improving. Palliative care consult appreciated. Patient remains full code. PT recommended MITCH. Upon discharge patient will follow up with Dr Roman. Dr Annmarie Amador
[2016-10-28] MEDS: Iron Complex Polysacch 150mg Cap PO SCH (13:56)
--- NOTE | 2016-10-28 15:57 | CARD ---
APPROVED REPORT EKG Measurement Heart [id number] MD [id number] <Conclusion> Sinus tachycardia with short MD Left bundle branch block Abnormal ECG
[2016-10-28] MEDS ORDERED: Oxycodone/Acetaminophen 5/325 mg Tab PO STA (18:01)
--- NOTE | 2016-10-28 21:50 | PN ---
DATE: 10/28/2016 SUBJECTIVE: I was informed by the nursing team that the patient is in sinus tachycardia. She is off since this morning. I did order a stat chest CT scan without contrast given the fact that the patient had significant pericardial effusion on admission and required thoracocentesis, however, the patient refused to go for CAT scan. I did order instead stat portable chest x-ray as well as stat ABGs and depending on the findings and outcome of both results, I may consider ICU evaluation. Patient was evaluated by shredder tender three days ago and was not considered a candidate at that time. Cesar Kinney MD
[2016-10-29 08:47] LABS: HEMOGLOBIN 10.2 gm/dL (12.0-16.0); MEAN CORPUSCULAR HEMOGLOBIN 25.2 pg (25.0-35.0); MEAN CORPUSCULAR HGB CONC 32.7 g/dl (31.0-37.0); MEAN PLATELET VOLUME 9.2 fl (7.0-11.0); RBC 4.05 10^6/uL (3.5-6.1); RED CELL DISTRIBUTION WIDTH 20.5 % (11.5-14.5)
[2016-10-29] MEDS: Insulin Lispro (humaLOG) LOW Coverage SC SCH ×4 (08:53→22:14)
[2016-10-29 09:11] LABS: ALB/GLOB RATIO 0.9 (1.1-1.8); ALBUMIN 3.3 g/dL (3.0-4.8); CALCIUM 8.9 mg/dL (8.4-10.5)
[2016-10-29] MEDS: Iron Complex Polysacch 150mg Cap PO SCH (09:47)
[2016-10-29] MEDS: Lactobacillus Acidophilus 500 MU Cap PO SCH ×2 (09:48→18:04)
[2016-10-29] MEDS: Levothyroxine 125 MCG TAB PO SCH (09:48)
[2016-10-29] MEDS: guaiFENesin 600 mg ER Tab PO SCH ×2 (09:48→18:05)
[2016-10-29] MEDS: Insulin Lispro 1 UNITS/0.01 ML SC SCH ×4 (09:49→22:15)
[2016-10-29] MEDS: Insulin Detemir 100 units/ml Vial (Levemir) SC SCH (09:51)
--- NOTE | 2016-10-29 11:37 | RAD ---
HISTORY: CHF. EFFUSION COMPARISON: 10/21/2016 FINDINGS: LUNGS: No definite infiltrate. PLEURA: Bilateral pleural effusion, right greater than left. The right pleural effusion appears slightly increased when compared to the prior examination though this may be due in part to differences in degree of inspiration for this radiograph. Also, there is apical lordotic positioning for the current radiographs 5 standard AP positioning for the prior. CARDIOVASCULAR: Normal heart size. Mild congestive change. Left PICC catheter extends to the region of the cavoatrial junction. OSSEOUS STRUCTURES: No significant abnormalities. VISUALIZED UPPER ABDOMEN: Normal. OTHER FINDINGS: None. IMPRESSION: Bilateral pleural effusion. No definite infiltrate.
--- NOTE | 2016-10-29 11:52 | PN ---
DATE: 10/29/2016 SUBJECTIVE: The patient is seen in bed, in no acute distress, and nontoxic. PHYSICAL EXAMINATION: VITAL SIGNS: Temperature is 97, blood pressure is 120/60, and respiratory rate is 18. HEENT: Unremarkable. NECK: Supple. HEART: Normal S1 and S2. LUNGS: Decreased breath sounds. ABDOMEN: Soft and nontender. LABORATORY DATA: Reveals the patient's white count of 12,000, hemoglobin is 10, and platelets of 285. Chemistry revealed BUN of 48, creatinine of 1.5, AST of 54, ALT of 140, and alk phos of 427. Microbiology reveals the blood cultures are negative. Stool for C. diff antigen and toxin is also negative. Currently, the patient is off of antibiotics. ASSESSMENT AND PLAN: She is a 51-year-old female status post severe sepsis with status post hypoxic ventilatory dependent respiratory failure due to bilateral lower lobe healthcare-associated pneumonia with possible gram-positive cocci, positive gram-negative aaliyah, associated with hyperglycemia, hyperosmolar state with acute pancreatitis and currently the patient is off of antibiotics, afebrile, history of acute cholecystitis, laparoscopic cholecystectomy, coronary artery disease, chronic congestive heart failure, diabetes mellitus, hypertension, history of migraines, and bipolar disorder and we will follow closely. The patient is at risk for developing nosocomial infection. Yehuda Valentino MD
[2016-10-29] MEDS ORDERED: Sod Polystyrene Sulf 15 gm/60 ml Oral Susp PO ONE (13:33)
--- NOTE | 2016-10-29 15:26 | CP.PCM.PN ---
<SAROJ HOLCOMB - Last Filed: 10/29/16 15:23> Subjective - Date & Time of Evaluation Date of Evaluation: 10/29/16 Time of Evaluation: 08:00 - Subjective Subjective: patient was seen and examined bedside. pt was complaining about the urinary catheter that she asked to remove because it was bloody and causing her pain, and not interested in having another catheter placed. pt denies cp, palpitations , headaches, fevers, sob or other complaints other than her usual abd and extremity pain . Objective - Vital Signs/Intake and Output Vital Signs (last 24 hours): Temp Pulse Resp BP Pulse Ox 98 F 92 H 20 149/65 94 L 10/29/16 12:00 10/29/16 12:00 10/29/16 12:00 10/29/16 12:00 10/28/16 09:00 Intake and Output: 10/29/16 10/29/16 06:59 18:59 Intake Total 2080 Output Total 400 Balance 1680 - Medications Medications: Current Medications Bumetanide (Bumex) 2 mg PO Q8H [facility] Last Admin: 10/29/16 13:40 Dose: 2 mg Guaifenesin (Mucinex La) 600 mg PO BID [facility] Last Admin: 10/29/16 09:48 Dose: 600 mg Dobutamine HCl/Dextrose (Dobutamine/Dextrose 5% 500mg/250ml) 500 mg in 250 mls @ 5.885 mls/hr IV .Q24H PRN; Protocol; 2.5 MCG/KG/MIN PRN Reason: TITRATE PER PROTOCOL Last Admin: 10/27/16 06:45 Dose: 5.885 mls/hr Insulin Detemir (Levemir) 24 unit SC DAILY [facility] Last Admin: 10/29/16 09:51 Dose: 24 unit Insulin Human Lispro (Humalog) 5 units SC ACHS [facility] Last Admin: 10/29/16 11:53 Dose: 5 units Insulin Human Lispro (Humalog Low) 0 units SC ACHS [facility] PRN Reason: Protocol Last Admin: 10/29/16 11:53 Dose: 1 units Lactobacillus Acidophilus (Bacid Acidophilus) 1 cap PO BID [facility] Last Admin: 10/29/16 09:48 Dose: 1 cap Levothyroxine Sodium (Synthroid) 125 mcg PO ACB [facility] Last Admin: 10/29/16 09:48 Dose: 125 mcg Lorazepam (Ativan) 0.25 mg PO HS [facility] PRN Reason: Protocol Metoprolol Tartrate (Lopressor) 50 mg PO BID [facility] Last Admin: 10/23/16 10:15 Dose: Not Given Pantoprazole Sodium (Protonix Inj) 40 mg IVP 0600 [facility] Last Admin: 10/29/16 06:20 Dose: 40 mg Polyethylene Glycol (Miralax) 17 gm PO BID [facility] Last Admin: 10/21/16 19:12 Dose: Not Given Polysaccharide Iron Complex (Ferrex-150) 150 mg PO DAILY [facility] Last Admin: 10/29/16 09:47 Dose: 150 mg Risperidone (Risperdal Tab) 1 mg PO HS [facility] PRN Reason: Protocol Last Admin: 10/18/16 21:17 Dose: 1 mg Spironolactone (Aldactone) 50 mg PO BID [facility] Last Admin: 10/29/16 09:48 Dose: 50 mg Tramadol HCl (Ultram) 50 mg PO TID PRN PRN Reason: Pain, moderate (4-7) Last Admin: 10/29/16 02:13 Dose: 50 mg - Labs Labs: 10/29/16 08:40 10/29/16 08:40 PT 12.0 Seconds (9.9-11.8) H 10/20/16 09:29 INR 1.11 (0.93-1.08) H 10/20/16 09:29 APTT 27.8 Seconds (23.7-30.8) 10/20/16 09:29 - Additional Findings Additional findings: - Constitutional Appears: Well, Non-toxic, No Acute Distress, Unkempt, Older Than Stated Age - Head Exam Head Exam: ATRAUMATIC, NORMAL INSPECTION, NORMOCEPHALIC - Eye Exam Eye Exam: EOMI, Normal appearance, PERRL. absent: Conjunctival injection, Nystagmus, Periorbital swelling, Periorbital tenderness, Scleral icterus Pupil Exam: NORMAL ACCOMODATION - ENT Exam ENT Exam: Mucous Membranes Moist, Normal Exam - Neck Exam Neck Exam: Full ROM, Normal Inspection. absent: Lymphadenopathy, Tenderness, Thyromegaly - Respiratory Exam Respiratory Exam: Clear to Ausculation Bilateral, Rales (mild in LLE ), NORMAL BREATHING PATTERN. absent: Accessory Muscle Use, Chest Wall Tenderness, Prolonged Expiratory Phase, Rhonchi, Wheezes, Respiratory Distress, Stridor - Cardiovascular Exam Cardiovascular Exam: Tachycardia (130's), REGULAR RHYTHM, +S1, +S2. absent: Gallop, JVD, Rubs, Murmur - GI/Abdominal Exam GI & Abdominal Exam: Soft, Tenderness, Normal Bowel Sounds. absent: Bruit, Distended, Firm, Guarding, Rigid, Hernia, Mass, Organomegaly, Pulsatile Mass, Rebound Additional comments: obese body habitus - Extremities Exam Extremities Exam: Normal Inspection, Pedal Edema, Tenderness. absent: Joint Swelling Additional comments: edema in 4 extremities is worse from prior exams - Neurological Exam Neurological Exam: Alert, Awake, Oriented x3. absent: Motor Sensory Deficit - Psychiatric Exam Psychiatric exam: Normal Affect, Normal Mood - Skin Skin Exam: Normal Color, Warm. absent: Cyanosis, Diaphoretic, Erythema, Mottled , Pallor, Rash - Additional Findings Additional findings: PICC line LUE day 5 Assessment and Plan - Assessment and Plan (Free Text) Plan: 51 y/o female with PMHx of DM2, CHF (EF 30% in 10/2016), HTN, chronic pulmonary effusion, HTN, DVT, PE, hypothyroidism, PSH of lap mitchell in 05/2016 and psych hx of schizophrenia and Bipolar disorder presented to the ED with complaints of abdominal pain. Patient was extubated on 10/15, and is on tele for closer monitoring. HHS improved, pt extubated and in NAD, decreasing anasarca. s/p 7 days of Doxycycline and 6 days of Meronepem. Pt received PICC line day 5. 1. Anasarca, improving - Per Dr. French: d/c Lasix and start Bumex 2mg Q8 and Aldactone 50mg BID - holding fluids due to CHF and edema - ECHO (10/18): EF 30%, severe MR, large pleural effusion - Pulm consulted, recs appreciated - Nephro consulted, recs appreciated - daily weight: 165lbs (weights are unreliable due to measuring inconsistency) - I/O: 2000/400; urinary catheter removed so output is unreliable 2. Tachycardia, P 92-130 - Cardio consulted, recs appreciated - continue to monitor closely 3. Hypokalemia, repleted - K 5.2 - PO Kdur 40mg BID PRN if K<4 (pt refusing IV Potassium) 4. UTI - UCx growing yeast - UCx 10/19 growing VRE (patient on contact precautions) - Blood cultures no growth - ID consulted, recs appreciated 5. Anemia, stable - Ferrex started 6. DM2, HONK resolved - FS 90's-380's - continue Lispro 5mg ACHS, Levemir increased to 24u daily, cont Humalog 7. Hypothermia, resolved - Temp 98.8F 8. Transaminits, stabilized and was likely 2/2 decreased perfusion 9. Abdominal pain, improving but likely due to edema 10. Hypothyroid - Synthroid 125mcg PO 11. Hypotension, resolved 12. Hyponatremia likely dilutional, resolved 13. AMS, resolved - Ativan and Risperidone held 14. Diarrhea, resolved 15. Congested cough, resolved Dispo: Palliative care nurse discussing with pt and sister in law ([phone] ) regarding advanced directives and dispo PTX/Eliquis Patient was seen, discussed and evaluated with attending, Dr. Perry Holcomb, PGY1 <Annmarie Amador - Last Filed: 10/30/16 14:04> Objective - Vital Signs/Intake and Output Vital Signs (last 24 hours): Temp Pulse Resp BP Pulse Ox 98.5 F 129 H 20 125/72 94 L 10/29/16 16:42 10/29/16 16:42 10/29/16 16:42 10/29/16 16:42 10/28/16 09:00 Intake and Output: 10/29/16 10/29/16 06:59 18:59 Intake Total 2080 Output Total 400 Balance 1680 - Medications Medications: Current Medications Apixaban (Eliquis) 2.5 mg PO BID [facility] PRN Reason: Protocol Bumetanide (Bumex) 2 mg PO Q8H [facility] Last Admin: 10/29/16 13:40 Dose: 2 mg Guaifenesin (Mucinex La) 600 mg PO BID [facility] Last Admin: 10/29/16 09:48 Dose: 600 mg Dobutamine HCl/Dextrose (Dobutamine/Dextrose 5% 500mg/250ml) 500 mg in 250 mls @ 5.885 mls/hr IV .Q24H PRN; Protocol; 2.5 MCG/KG/MIN PRN Reason: TITRATE PER PROTOCOL Last Admin: 10/27/16 06:45 Dose: 5.885 mls/hr Insulin Detemir (Levemir) 24 unit SC DAILY [facility] Last Admin: 10/29/16 09:51 Dose: 24 unit Insulin Human Lispro (Humalog) 5 units SC ACHS [facility] Last Admin: 10/29/16 16:43 Dose: Not Given Insulin Human Lispro (Humalog Low) 0 units SC [facility] PRN Reason: Protocol Last Admin: 10/29/16 16:43 Dose: Not Given Lactobacillus Acidophilus (Bacid Acidophilus) 1 cap PO BID [facility] Last Admin: 10/29/16 09:48 Dose: 1 cap Levothyroxine Sodium (Synthroid) 125 mcg PO ACB [facility] Last Admin: 10/29/16 09:48 Dose: 125 mcg Lorazepam (Ativan) 0.25 mg PO HS [facility] PRN Reason: Protocol Metoprolol Tartrate (Lopressor) 50 mg PO BID [facility] Last Admin: 10/23/16 10:15 Dose: Not Given Nystatin (Nystop Topical Powder) 0 gm TOP DAILY [facility] Last Admin: 10/29/16 16:44 Dose: 1 applic Pantoprazole Sodium (Protonix Inj) 40 mg IVP 0600 [facility] Last Admin: 10/29/16 06:20 Dose: 40 mg Polyethylene Glycol (Miralax) 17 gm PO BID [facility] Last Admin: 10/21/16 19:12 Dose: Not Given Polysaccharide Iron Complex (Ferrex-150) 150 mg PO DAILY [facility] Last Admin: 10/29/16 09:47 Dose: 150 mg Risperidone (Risperdal Tab) 1 mg PO HS [facility] PRN Reason: Protocol Last Admin: 10/18/16 21:17 Dose: 1 mg Spironolactone (Aldactone) 50 mg PO BID [facility] Last Admin: 10/29/16 09:48 Dose: 50 mg Tolvaptan (Samsca) 30 mg PO ONCE ONE Stop: 10/29/16 16:59 Tramadol HCl (Ultram) 50 mg PO TID PRN PRN Reason: Pain, moderate (4-7) Last Admin: 10/29/16 02:13 Dose: 50 mg - Labs Labs: 10/29/16 08:40 10/29/16 08:40 PT 12.0 Seconds (9.9-11.8) H 10/20/16 09:29 INR 1.11 (0.93-1.08) H 10/20/16 09:29 APTT 27.8 Seconds (23.7-30.8) 10/20/16 09:29 Attending/Attestation - Attestation I have personally seen and examined this patient.: Yes I have fully participated in the care of the patient.: Yes I have reviewed all pertinent clinical information, including history, physical exam and plan: Yes Notes (Text): I have seen and examined patient at bedside. Agree with the above note with the following additions/ exceptions: Briefly this is 51 year old female with history of DM-2, CHF(EF~30%), HTN, chronic pulmonary effusion, HTN, DVT, PE on eliquis, hypothyroidism, schizophrenia and Bipolar disorder who presented initially with diffuse abdominal pain and confusion and found to be in HONK and code sepsis was called most likely due to HCAP vs abdominal etiology( Suspected colitis on CT scan). She completed meropenem and doxy. Active issues include hyponatremia and anasarca secondary to cardiorenal etiology. Patient edema is worse today. Pickens was discontinued on patients request therefore accurate I/Os could not be monitored. She was switched to bumex today. Continue aldactone and fluid restriction. Sodium improved to 128. Samsca was also given. Will monitor patient closely. Continue pickens catheter to monitor accurate Is and Os. Patient was offered to take iron pills however she refused. Urine cultures revealed VRE. Repeat urine cultures is growing yeast. Blood cultures are negative. Stool for cdiff negative. She is off antibiotics. She has fungal inguinal rash. Nystatin powder was started. LFT's are improving. Palliative care consult appreciated. Patient remains full code. PT recommended MITCH. Upon discharge patient will follow up with Dr Roman. Dr Annmarie Amador
[2016-10-29] MEDS ORDERED: Potassium Chloride 20 mEq ER Tab PO PRN (15:41)
--- NOTE | 2016-10-29 16:27 | PN ---
DATE: SUBJECTIVE: The patient is mildly short of breath. She is in sinus tachycardia on the monitor. She . She refused to go for chest CT scan; however, chest x-ray was consistent with significant right-sided and moderate left-sided pleural effusion. PHYSICAL EXAMINATION: VITAL SIGNS: Blood pressure 120/61, heart rate 132, temperature 97.6, and respirations 20. HEENT: Facial edema. NECK: No JVD. CARDIOPULMONARY: Heart S1 and S2, regular. LUNGS: Chest, diminished breath sounds over the bases. EXTREMITIES: Significant buttock and thigh edema. LABORATORY DATA: Hemoglobin and hematocrit 10.2 and 31.2, white count and platelet count 12.0 and 285,000. Sodium 128, potassium 5.2, chloride 91, CO2 of 28, glucose 126, BUN 48, and creatinine 1.5. ASSESSMENT: 1. Anasarca. 2. Bilateral pleural effusion. 3. History of neck lymphoma. 4. Anemia. PLAN: Continue current Aldactone at 60 mg twice a day, Lopressor at 50 mg twice a day, Synthroid at 125 mcg daily, K-Dur at 20 mEq daily, and Bumex 50 mg p.o. q.8 hours. Case was discussed with the medical or surgical instrument maker, they recommended that the patient will be evaluated by interventional radiologist or garment manufacturer for thoracocentesis. Cesar Kinney MD
[2016-10-29] MEDS: Nystatin 100,000 Units/gm Topical Pow(15 gm) TOP SCH (16:44)
--- NOTE | 2016-10-29 16:50 | CP.PCM.PN ---
Subjective - Date & Time of Evaluation Date of Evaluation: 10/29/16 Time of Evaluation: 06:30 - Subjective Subjective: Patient reports urinating somewhat, not able to say how much; doesn't want pickens again because "she was bleeding"; Objective - Vital Signs/Intake and Output Vital Signs (last 24 hours): Temp Pulse Resp BP Pulse Ox 98.5 F 129 H 20 125/72 94 L 10/29/16 16:42 10/29/16 16:42 10/29/16 16:42 10/29/16 16:42 10/28/16 09:00 Intake and Output: 10/29/16 10/29/16 06:59 18:59 Intake Total 2080 Output Total 400 Balance 1680 - Medications Medications: Current Medications Apixaban (Eliquis) 2.5 mg PO BID [facility] PRN Reason: Protocol Bumetanide (Bumex) 2 mg PO Q8H [facility] Last Admin: 10/29/16 13:40 Dose: 2 mg Guaifenesin (Mucinex La) 600 mg PO BID [facility] Last Admin: 10/29/16 09:48 Dose: 600 mg Dobutamine HCl/Dextrose (Dobutamine/Dextrose 5% 500mg/250ml) 500 mg in 250 mls @ 5.885 mls/hr IV .Q24H PRN; Protocol; 2.5 MCG/KG/MIN PRN Reason: TITRATE PER PROTOCOL Last Admin: 10/27/16 06:45 Dose: 5.885 mls/hr Insulin Detemir (Levemir) 24 unit SC DAILY [facility] Last Admin: 10/29/16 09:51 Dose: 24 unit Insulin Human Lispro (Humalog) 5 units SC ACHS [facility] Last Admin: 10/29/16 16:43 Dose: Not Given Insulin Human Lispro (Humalog Low) 0 units SC ACHS [facility] PRN Reason: Protocol Last Admin: 10/29/16 16:43 Dose: Not Given Lactobacillus Acidophilus (Bacid Acidophilus) 1 cap PO BID [facility] Last Admin: 10/29/16 09:48 Dose: 1 cap Levothyroxine Sodium (Synthroid) 125 mcg PO ACB [facility] Last Admin: 10/29/16 09:48 Dose: 125 mcg Lorazepam (Ativan) 0.25 mg PO HS [facility] PRN Reason: Protocol Metoprolol Tartrate (Lopressor) 50 mg PO BID [facility] Last Admin: 10/23/16 10:15 Dose: Not Given Nystatin (Nystop Topical Powder) 0 gm TOP DAILY [facility] Pantoprazole Sodium (Protonix Inj) 40 mg IVP 0600 [facility] Last Admin: 10/29/16 06:20 Dose: 40 mg Polyethylene Glycol (Miralax) 17 gm PO BID [facility] Last Admin: 10/21/16 19:12 Dose: Not Given Polysaccharide Iron Complex (Ferrex-150) 150 mg PO DAILY [facility] Last Admin: 10/29/16 09:47 Dose: 150 mg Potassium Chloride (K-Dur 20 Meq Er Tab) 40 meq PO ONCE PRN PRN Reason: Other Stop: 10/30/16 15:00 Risperidone (Risperdal Tab) 1 mg PO HS [facility] PRN Reason: Protocol Last Admin: 10/18/16 21:17 Dose: 1 mg Spironolactone (Aldactone) 50 mg PO BID [facility] Last Admin: 10/29/16 09:48 Dose: 50 mg Tramadol HCl (Ultram) 50 mg PO TID PRN PRN Reason: Pain, moderate (4-7) Last Admin: 10/29/16 02:13 Dose: 50 mg - Labs Labs: 10/29/16 08:40 10/29/16 08:40 PT 12.0 Seconds (9.9-11.8) H 10/20/16 09:29 INR 1.11 (0.93-1.08) H 10/20/16 09:29 APTT 27.8 Seconds (23.7-30.8) 10/20/16 09:29 - Constitutional Appears: Non-toxic, No Acute Distress - Head Exam Head Exam: NORMAL INSPECTION - Eye Exam Eye Exam: Normal appearance. absent: Scleral icterus - ENT Exam ENT Exam: Mucous Membranes Moist - Respiratory Exam Respiratory Exam: Decreased Breath Sounds, Clear to Ausculation Bilateral. absent: Rales, Rhonchi, Wheezes Additional comments: Decreased breath sounds at R base; - Cardiovascular Exam Cardiovascular Exam: REGULAR RHYTHM, +S1, +S2 - GI/Abdominal Exam GI & Abdominal Exam: Soft, Tenderness - Extremities Exam Additional comments: Markedly edematous legs extending to low back; - Neurological Exam Neurological Exam: Alert, Awake - Psychiatric Exam Additional comments: Melancholic; - Skin Skin Exam: Normal Color, Warm. absent: Cyanosis Assessment and Plan (1) Acute renal failure Assessment & Plan: Cardiorenal etiology, relatively stable despite being off inotrope since yesterday; unable to quantify UO after pickens pulled on patient insistence but appears more edematous today after decreasing IV lasix from 80 to 40 mg q8h; switched to PO bumex 2 mg q8h today in preparation for eventual d/c; will need to evaluate response tomorrow; -bumex 2 mg q8h and aldactone 50 mg bid Status: Acute (2) Hyponatremia Assessment & Plan: In the setting of severely decompensated CHF; worsened today after improving with tolvaptan; need to keep emphasizing fluid restriction; -will give another dose of tolvaptan 30 mg today; Status: Acute (3) CHF (congestive heart failure) Assessment & Plan: Severely decompensated systolic CHF; edema had improved significantly yesterday after bein on inotropic support and increasing IV lasix to 80 mg q6h; worsened edema today may mean patient needs to be on home inotropic support; diuretics changed to PO bumex q8h and aldactone 50 mg bid; Status: Acute (4) Sepsis Status: Resolved (5) Anemia Assessment & Plan: Due to iron deficiency and chronic disease, started on PO iron, continue; Status: Acute - Assessment and Plan (Free Text) Assessment: Metabolic alkalosis - Secondary to loop diuretics; significant improvement after decreasing dose of lasix and adding aldactone; monitor;
--- NOTE | 2016-10-29 18:17 | CT ---
PROCEDURE: CT Chest without contrast HISTORY: SOB.Effusion COMPARISON: 08/05/2016 TECHNIQUE: Contiguous axial images were obtained through the chest without intravenous contrast enhancement. Sagittal and coronal reconstructions were performed. Radiation dose (DLP): 414.38 mGy-cm. This CT exam was performed using one or more of the following dose reduction techniques: Automated exposure control, adjustment of the mA and/or kV according to patient size, and/or use of iterative reconstruction technique. FINDINGS: LUNGS: No pulmonary infiltrate. Bilateral lower lobe, lingular and right middle lobe compressive subsegmental atelectasis. This is secondary to bilateral pleural effusion. No pulmonary mass. MEDIASTINUM: Unremarkable thoracic aorta. No aneurysm. Normal-sized heart. Left PICC catheter terminating in right atrium. Main pulmonary artery unremarkable. No vascular congestion. No lymphadenopathy. PLEURA: Bilateral moderate pleural effusion. No pneumothorax. BONES: No fracture. No destructive lesion. UPPER ABDOMEN: Grossly unremarkable. OTHER FINDINGS: None. IMPRESSION: Moderate bilateral pleural effusion. Subsegmental atelectasis both lower lobes, right middle lobe and lingula.
[2016-10-30 06:45] LABS: MEAN CELL VOLUME 76.4 fL (80.0-105.0); MEAN CORPUSCULAR HEMOGLOBIN 25.1 pg (25.0-35.0); MEAN CORPUSCULAR HGB CONC 32.9 g/dl (31.0-37.0); MEAN PLATELET VOLUME 9.2 fl (7.0-11.0); RBC 3.98 10^6/uL (3.5-6.1); RED CELL DISTRIBUTION WIDTH 20.4 % (11.5-14.5); WHITE BLOOD COUNT 14.7 10^3/ul (4.5-11.0)
[2016-10-30 06:52] LABS: ALB/GLOB RATIO 0.9 (1.1-1.8); ALBUMIN 3.2 g/dL (3.0-4.8)
[2016-10-30] MEDS: Insulin Lispro (humaLOG) LOW Coverage SC SCH ×4 (07:40→22:00)
[2016-10-30] MEDS: Insulin Lispro 1 UNITS/0.01 ML SC SCH ×4 (07:40→22:04)
[2016-10-30] MEDS: Levothyroxine 125 MCG TAB PO SCH (07:45)
[2016-10-30] MEDS: Nystatin 100,000 Units/gm Topical Pow(15 gm) TOP SCH (11:03)
[2016-10-30] MEDS: guaiFENesin 600 mg ER Tab PO SCH (11:08)
[2016-10-30] MEDS: Iron Complex Polysacch 150mg Cap PO SCH (11:08)
[2016-10-30] MEDS: Lactobacillus Acidophilus 500 MU Cap PO SCH ×2 (11:08→18:57)
[2016-10-30] MEDS: Insulin Detemir 100 units/ml Vial (Levemir) SC SCH (11:48)
--- NOTE | 2016-10-30 12:06 | CP.PCM.PN ---
<Rivka Shelton - Last Filed: 10/30/16 11:57> Subjective - Date & Time of Evaluation Date of Evaluation: 10/30/16 Time of Evaluation: 11:58 - Subjective Subjective: Patient seen and examined at bedside. This AM she was hypoglycemic. Juice was given and glucose normalized. She complains of feeling SOB with leg swelling. She denies CP, n/v/d, numbness/tingling, fever or chills. Objective - Vital Signs/Intake and Output Vital Signs (last 24 hours): Temp Pulse Resp BP Pulse Ox 97.5 F L 81 18 103/63 95 10/30/16 06:00 10/30/16 06:00 10/30/16 06:00 10/30/16 06:00 10/30/16 06:00 - Medications Medications: Current Medications Apixaban (Eliquis) 2.5 mg PO BID [facility] PRN Reason: Protocol Last Admin: 10/30/16 11:08 Dose: 2.5 mg Bumetanide (Bumex) 2 mg IVP Q8H [facility] Guaifenesin (Mucinex La) 600 mg PO BID [facility] Last Admin: 10/30/16 11:08 Dose: 600 mg Dobutamine HCl/Dextrose (Dobutamine/Dextrose 5% 500mg/250ml) 500 mg in 250 mls @ 5.885 mls/hr IV .Q24H PRN; Protocol; 2.5 MCG/KG/MIN PRN Reason: TITRATE PER PROTOCOL Last Admin: 10/27/16 06:45 Dose: 5.885 mls/hr Insulin Detemir (Levemir) 20 unit SC DAILY [facility] Last Admin: 10/30/16 11:48 Dose: 20 unit Insulin Human Lispro (Humalog) 5 units SC ACHS [facility] Last Admin: 10/30/16 07:40 Dose: Not Given Insulin Human Lispro (Humalog Low) 0 units SC ACHS [facility] PRN Reason: Protocol Last Admin: 10/30/16 07:40 Dose: Not Given Lactobacillus Acidophilus (Bacid Acidophilus) 1 cap PO BID [facility] Last Admin: 10/30/16 11:08 Dose: 1 cap Levothyroxine Sodium (Synthroid) 125 mcg PO ACB [facility] Last Admin: 10/30/16 07:45 Dose: 125 mcg Lorazepam (Ativan) 0.25 mg PO HS [facility] PRN Reason: Protocol Metoprolol Tartrate (Lopressor) 50 mg PO BID [facility] Last Admin: 10/23/16 10:15 Dose: Not Given Nystatin (Nystop Topical Powder) 0 gm TOP DAILY [facility] Last Admin: 10/30/16 11:03 Dose: 1 applic Pantoprazole Sodium (Protonix Inj) 40 mg IVP 0600 [facility] Last Admin: 10/30/16 06:17 Dose: 40 mg Polyethylene Glycol (Miralax) 17 gm PO BID [facility] Last Admin: 10/21/16 19:12 Dose: Not Given Polysaccharide Iron Complex (Ferrex-150) 150 mg PO DAILY [facility] Last Admin: 10/30/16 11:08 Dose: 150 mg Propranolol HCl (Inderal) 10 mg PO TID [facility] Risperidone (Risperdal Tab) 1 mg PO HS [facility] PRN Reason: Protocol Last Admin: 10/18/16 21:17 Dose: 1 mg Spironolactone (Aldactone) 25 mg PO BID [facility] Tramadol HCl (Ultram) 50 mg PO TID PRN PRN Reason: Pain, moderate (4-7) Last Admin: 10/29/16 18:23 Dose: 50 mg - Labs Labs: 10/30/16 06:30 10/30/16 06:30 PT 12.0 Seconds (9.9-11.8) H 10/20/16 09:29 INR 1.11 (0.93-1.08) H 10/20/16 09:29 APTT 27.8 Seconds (23.7-30.8) 10/20/16 09:29 - Constitutional Appears: No Acute Distress - Head Exam Head Exam: ATRAUMATIC, NORMAL INSPECTION, NORMOCEPHALIC - Eye Exam Eye Exam: Normal appearance, PERRL Pupil Exam: NORMAL ACCOMODATION, PERRL - ENT Exam ENT Exam: Mucous Membranes Moist - Respiratory Exam Respiratory Exam: Rales (at bases), NORMAL BREATHING PATTERN. absent: Rhonchi, Wheezes - Cardiovascular Exam Cardiovascular Exam: Tachycardia, REGULAR RHYTHM, +S1, +S2. absent: Gallop, Rubs, Murmur - GI/Abdominal Exam GI & Abdominal Exam: Distended, Normal Bowel Sounds. absent: Rigid, Tenderness , Mass, Rebound - Extremities Exam Extremities Exam: Pedal Edema. absent: Calf Tenderness - Neurological Exam Neurological Exam: Alert, Awake, CN II-XII Intact, Oriented x3 - Psychiatric Exam Psychiatric exam: Normal Affect, Normal Mood - Skin Skin Exam: Dry, Normal Color, Rash, Warm Assessment and Plan - Assessment and Plan (Free Text) Assessment: This is a 51Y F with PMH CHF (EF 30%), HTN, DVT, PE, hypothyroidism, DM, schizoaffective admitted for HONK (resolved) with sepsis secondary to HCAP versus colitis. She completed Abx course. She was intubated at one point then extubated. Patient has had a complicated hospital course with VRE UTI (treated) and now has anasarca secondary to cardiorenal syndrome as well as hyponatremia. Patient refusing pickens catheter. Plan: 1. Anasarca - Secondary to CHF - abdominal pain secondary to edema - CT chest showed bilateral pleural effusions - As per cardiology, Change Bumex from PO to IV - Aldactone increased to BID as per cardio - Continue to monitor I&O- patient refusing pickens - daily weight - Fluid restriction - Nephro consulted- recs appreciated - Pulm consulted- recs appreciated - ECHO (10/18): EF 30%, severe MR, large pleural effusion 2. Hyponatremia - Secondary to CHF - Na: 127 - Given Vaptan yesterday - Continue Aldactone and Bumex - Fluid restriction - Neprho consulted- recs appreciated 3. Tachycardia- improved - Continue Propranolol 10mg TID - Cardiology Consulted- recs appreciated 4. Leukocytosis - Afebrile - Treated for VRE UTI - U/A showed yeast - Will obtain procal, BC, Urine culture - ID consulted- recs appreciated 5. OLLIE - Secondary to cardiorenal syndrome - Cr 1.7 - Continue to monitor Cr and BUN - Neprho consulted- recs appreciated 6. IDDM - Hypoglycemic this AM - Decreased Levemir to 20U - Lispo 5U ACHS - ISS 6. Anemia, stable - secondary to iron deficiency anemia - Continue Ferrex 7. Transaminitis- stable - Continue to monitor LFTs - Abd U/S showed fatty liver, but hepatocellular pathology could not be excluded 8. Hx of DVT/PE - Continue Eliquis 9. Hypothyroidism - Continue Synthroid 10. Hx of Bipolar/Schizophrenia - Antipsychotics on hold secondary to AMS GI ppx: Protonix DVT ppx: Eliquis Dispo: Prognosis guarded. Palliative care consulted. Discussed with sister in law ([phone]). Patient homeless. Case seen, discussed and reviewed with attending. Sujit Shelton PGY2 <Annmarie Amador B - Last Filed: 10/30/16 14:32> Objective - Vital Signs/Intake and Output Vital Signs (last 24 hours): Temp Pulse Resp BP Pulse Ox 97.8 F 104 H 20 84/51 L 95 10/30/16 12:00 10/30/16 12:00 10/30/16 12:00 10/30/16 12:00 10/30/16 06:00 - Medications Medications: Current Medications Apixaban (Eliquis) 2.5 mg PO BID [facility] PRN Reason: Protocol Last Admin: 10/30/16 11:08 Dose: 2.5 mg Bumetanide (Bumex) 2 mg IVP Q8H [facility] Last Admin: 10/30/16 12:19 Dose: Not Given Insulin Detemir (Levemir) 20 unit SC DAILY [facility] Last Admin: 10/30/16 11:48 Dose: 20 unit Insulin Human Lispro (Humalog) 5 units SC ACHS [facility] Last Admin: 10/30/16 11:57 Dose: 5 units Insulin Human Lispro (Humalog Low) 0 units SC ACHS [facility] PRN Reason: Protocol Last Admin: 10/30/16 11:57 Dose: 2 units Lactobacillus Acidophilus (Bacid Acidophilus) 1 cap PO BID [facility] Last Admin: 10/30/16 11:08 Dose: 1 cap Levothyroxine Sodium (Synthroid) 125 mcg PO ACB [facility] Last Admin: 10/30/16 07:45 Dose: 125 mcg Nystatin (Nystop Topical Powder) 0 gm TOP DAILY [facility] Last Admin: 10/30/16 11:03 Dose: 1 applic Pantoprazole Sodium (Protonix Inj) 40 mg IVP 0600 [facility] Last Admin: 10/30/16 06:17 Dose: 40 mg Polysaccharide Iron Complex (Ferrex-150) 150 mg PO DAILY [facility] Last Admin: 10/30/16 11:08 Dose: 150 mg Propranolol HCl (Inderal) 10 mg PO TID [facility] Spironolactone (Aldactone) 25 mg PO BID [facility] Tramadol HCl (Ultram) 50 mg PO TID PRN PRN Reason: Pain, moderate (4-7) Last Admin: 10/29/16 18:23 Dose: 50 mg - Labs Labs: 10/30/16 06:30 10/30/16 06:30 PT 12.0 Seconds (9.9-11.8) H 10/20/16 09:29 INR 1.11 (0.93-1.08) H 10/20/16 09:29 APTT 27.8 Seconds (23.7-30.8) 10/20/16 09:29 Attending/Attestation - Attestation I have personally seen and examined this patient.: Yes I have fully participated in the care of the patient.: Yes I have reviewed all pertinent clinical information, including history, physical exam and plan: Yes Notes (Text): I have seen and examined patient at bedside. Agree with the above note with the following additions/ exceptions: Briefly this is 51 year old female with history of DM-2, CHF(EF~30%), HTN, chronic pulmonary effusion, HTN, DVT, PE on eliquis, hypothyroidism, schizophrenia and Bipolar disorder who presented initially with diffuse abdominal pain and confusion and found to be in HONK and code sepsis was called most likely due to HCAP vs abdominal etiology( Suspected colitis on CT scan). She completed meropenem and doxy. Active issues include hyponatremia and anasarca secondary to cardiorenal etiology. Patient edema is slightly worse today CXR showed bilateral pleural effusion. Pickens was discontinued on patients request therefore accurate I/Os could not be monitored. Continue bumex, aldactone and fluid restriction. Sodium improved to 128. Samsca was also given. Will monitor patient closely. Continue pickens catheter to monitor accurate Is and Os. Patient was offered to take iron pills however she refused. Urine cultures revealed VRE. Repeat urine cultures is growing yeast. Blood cultures are negative. Stool for cdiff negative. She is off antibiotics. She has fungal inguinal rash. Nystatin powder was started. LFT's are improving. Palliative care consult appreciated. Patient remains full code. PT recommended MITCH. Upon discharge patient will follow up with Dr Roman. Dr Annmarie Amador
--- NOTE | 2016-10-30 13:34 | PN ---
DATE: 10/30/2016 SUBJECTIVE: The patient was seen earlier this morning, no changes; no fevers and no chills. PHYSICAL EXAMINATION: VITAL SIGNS: Temperature is 97, blood pressure is 117/50, respiratory rate of 18, and heart rate of 106. HEENT: Unremarkable. NECK: Supple. LUNGS: Decreased breath sounds. HEART: Normal S1 and S2. ABDOMEN: Soft. LABORATORY DATA: Reveal a white count of 14,700 this morning. Review of orders reveals the patient is off of antibiotics and stool for C. diff antigen and toxin are negative. The blood cultures are negative. ASSESSMENT AND PLAN: A 51-year-old female with status post severe sepsis, status post hypoxic ventilatory dependent respiratory failure due to bilateral lower healthcare-associated pneumonia, possible gram-positive cocci, possible gram-negative aaliyah associated with hyperglycemia, hyperosmolar state and acute pancreatitis, currently off of antibiotics and now with systemic inflammatory response syndrome and leukocytosis which is increasing. The patient had a CAT scan of the chest yesterday, no pulmonary infiltrate. There is bilateral lower lobe, lingula and right middle lobe compressive subsegmental atelectasis secondary to also bilateral pleural effusion. The patient is clinically nontoxic. The patient did have upper extremity ultrasound, which showed no evidence of DVT and procalcitonin has been ordered. We will repeat pancultures. The patient is on Eliquis. May consider CAT scan of the abdomen and pelvis. We will check on the lower extremity ultrasound to rule out DVT and follow WBC count since the patient is nontoxic. At this point, we will hold off any empiric antibiotic therapy pending initial cultures and follow with WBC. Yehuda Valentino MD
--- NOTE | 2016-10-30 15:26 | PN ---
DATE: 10/30/2016 COVERING DOCTOR: Dr. Kinney. REASON FOR CONSULTATION: Decompensated congestive heart failure, bilateral pleural effusion, mitral regurgitation, tricuspid regurgitation, history of chemotherapy for lymphoma of the neck, nonischemic cardiomyopathy. The patient feels heart palpitation and feels more bloated and increased swelling of the leg. OBJECTIVE FINDINGS: GENERAL: The patient is sitting on the bed, off Dobutrex, off IV diuretics. VITAL SIGNS: Temperature afebrile, heart rate 106, blood pressure 117/52. HEENT: PERRLA intact. NECK: Supple. No carotid bruit. No thyromegaly. CHEST: Clear to auscultation. HEART: S1 and S2 regular. ABDOMEN: Soft. EXTREMITIES: Clubbing and cyanosis negative. 2+ pedal edema. LUNGS: Decreased air entry at the bases. IMPRESSION: A 51-year-old female with a past medical history significant for nonischemic cardiomyopathy, status post cardiac catheterization, status post chemotherapy for lymphoma, mitral regurgitation, tricuspid regurgitation, bilateral pleural effusion, anasarca, sinus tachycardia, hypotension, note blood pressure is in the lower side, heart rate is in 110, increased swelling. RECOMMENDATION: Change Bumex to IV, decrease Aldactone to 25, so we can push more diuretics. Start low dose of beta-melissa *------* 10 mg t.i.d. to decrease the heart rate. Monitor electrolytes. We will follow with you and turnover the case tomorrow to Dr. Kinney. Discussed with resident taking care of the patient. We will follow with you. Repeat lab in the morning including magnesium and phosphate. Mau Orozco MD
[2016-10-30] MEDS ORDERED: Alum-Mag Hydrox-Simethicone Susp (30 mL) PO ONE (22:34)
[2016-10-31] MEDS: Pantoprazole 40 mg EC Tab PO SCH (06:22)
[2016-10-31] MEDS: Insulin Detemir 100 units/ml Vial (Levemir) SC SCH (09:42)
[2016-10-31] MEDS: Insulin Lispro 1 UNITS/0.01 ML SC SCH ×4 (09:42→21:54)
[2016-10-31] MEDS: Insulin Lispro (humaLOG) LOW Coverage SC SCH ×4 (09:42→21:55)
[2016-10-31] MEDS ORDERED: Dextrose 50% SYRINGE Inj (50 ml) IV ONE (09:45)
--- NOTE | 2016-10-31 10:50 | CP.PCM.PN ---
Subjective - Date & Time of Evaluation Date of Evaluation: 10/31/16 Time of Evaluation: 10:10 - Subjective Subjective: Comfortable, not in distress, afebrile, no fevers overnight, not in distress currently. For CT abdomen and pelvis today. Objective - Vital Signs/Intake and Output Vital Signs (last 24 hours): Temp Pulse Resp BP Pulse Ox 97.7 F 100 H 20 84/49 L 100 10/31/16 06:00 10/31/16 06:00 10/31/16 06:00 10/31/16 06:00 10/31/16 06:00 - Medications Medications: Current Medications Apixaban (Eliquis) 2.5 mg PO BID [facility] PRN Reason: Protocol Last Admin: 10/30/16 18:59 Dose: 2.5 mg Bumetanide (Bumex) 2 mg IVP Q8H [facility] Last Admin: 10/31/16 03:31 Dose: 2 mg Insulin Detemir (Levemir) 20 unit SC DAILY [facility] Last Admin: 10/30/16 11:48 Dose: 20 unit Insulin Human Lispro (Humalog) 5 units SC ACHS [facility] Last Admin: 10/30/16 22:04 Dose: 5 units Insulin Human Lispro (Humalog Low) 0 units SC ACHS [facility] PRN Reason: Protocol Last Admin: 10/30/16 22:00 Dose: Not Given Lactobacillus Acidophilus (Bacid Acidophilus) 1 cap PO BID [facility] Last Admin: 10/30/16 18:57 Dose: 1 cap Levothyroxine Sodium (Synthroid) 125 mcg PO ACB [facility] Last Admin: 10/30/16 07:45 Dose: 125 mcg Nystatin (Nystop Topical Powder) 0 gm TOP DAILY [facility] Last Admin: 10/30/16 11:03 Dose: 1 applic Pantoprazole Sodium (Protonix Ec Tab) 40 mg PO 0600 [facility] Last Admin: 10/31/16 06:22 Dose: Not Given Polysaccharide Iron Complex (Ferrex-150) 150 mg PO DAILY [facility] Last Admin: 10/30/16 11:08 Dose: 150 mg Propranolol HCl (Inderal) 10 mg PO TID [facility] Last Admin: 10/30/16 18:57 Dose: 10 mg Spironolactone (Aldactone) 25 mg PO BID [facility] Last Admin: 10/30/16 18:57 Dose: 25 mg Tramadol HCl (Ultram) 50 mg PO TID PRN PRN Reason: Pain, moderate (4-7) Last Admin: 10/30/16 22:05 Dose: 50 mg - Labs Labs: 10/30/16 06:30 10/30/16 06:30 PT 12.0 Seconds (9.9-11.8) H 10/20/16 09:29 INR 1.11 (0.93-1.08) H 10/20/16 09:29 APTT 27.8 Seconds (23.7-30.8) 10/20/16 09:29 - Constitutional Appears: Non-toxic, No Acute Distress - Head Exam Head Exam: NORMAL INSPECTION - Neck Exam Neck Exam: absent: Meningismus - Respiratory Exam Respiratory Exam: Decreased Breath Sounds - Cardiovascular Exam Cardiovascular Exam: +S1, +S2 - GI/Abdominal Exam GI & Abdominal Exam: Soft. absent: Tenderness Assessment and Plan - Assessment and Plan (Free Text) Plan: Assessment S/P severe sepsis S/P hypoxic ventilator-dependent respiratory failure probably due to bilateral lower lobe healthcare-associated pneumonia with possible gram positive cocci, gram negative bacilli and/or atypical organisms, with associated hyperglycemic, hyperosmolar state with also acute pancreatitis, etiology to be determined - clinically improved and now off antibiotics - still with leukocytosis etiology still to de determined VRE in the urine, probably asymptomatic bacteriuria, continues to be asymptomatic chronic congestive heart failure due to cardiomyopathy elevated Alk phos and transaminases in a patient with pancreatitis as well as hepatic congestion history of healthcare-associated pneumonia, right middle lobe history of bilateral healthcare-associated pneumonia in this patient chronic heart failure S/P acute cholecystitis, S/P laparoscopic cholecystectomy CAD with chronic CHF DM HTN history of migraines bipolar disorder Plan will continue to monitor off antibiotics since she is at risk for nosocomial infections follow up septic work up repeated yesterday follow up CT scan of the abdomen and pelvis results CT chest only showed atelectasis and bilateral pleural effusions
[2016-10-31] MEDS: Lactobacillus Acidophilus 500 MU Cap PO SCH ×2 (10:56→17:42)
[2016-10-31] MEDS: Iron Complex Polysacch 150mg Cap PO SCH (10:59)
[2016-10-31] MEDS: Levothyroxine 125 MCG TAB PO SCH (11:00)
--- NOTE | 2016-10-31 11:12 | CP.PCM.PN ---
<SAROJ HOLCOMB - Last Filed: 11/01/16 06:52> Subjective - Date & Time of Evaluation Date of Evaluation: 10/31/16 Time of Evaluation: 09:30 - Subjective Subjective: patient was seen and examined bedside. pt complaining of abd pain, especially in the L lower abdomen. pt also complains of shortness of breath when she lays down in be, and that she is feeling cold. When asked if the team could get her a urinary catheter to correctly measure her urine, pt refuses stating that the last time it hurt her too much and that there was blood. Objective - Vital Signs/Intake and Output Vital Signs (last 24 hours): Temp Pulse Resp BP Pulse Ox 97.7 F 100 H 20 84/49 L 100 10/31/16 06:00 10/31/16 06:00 10/31/16 06:00 10/31/16 06:00 10/31/16 06:00 - Medications Medications: Current Medications Apixaban (Eliquis) 2.5 mg PO BID [facility] PRN Reason: Protocol Last Admin: 10/30/16 18:59 Dose: 2.5 mg Bumetanide (Bumex) 2 mg IVP Q8H [facility] Last Admin: 10/31/16 03:31 Dose: 2 mg Insulin Detemir (Levemir) 20 unit SC DAILY [facility] Last Admin: 10/31/16 09:42 Dose: Not Given Insulin Human Lispro (Humalog) 5 units SC ACHS [facility] Last Admin: 10/31/16 09:42 Dose: Not Given Insulin Human Lispro (Humalog Low) 0 units SC ACHS [facility] PRN Reason: Protocol Last Admin: 10/31/16 09:42 Dose: Not Given Lactobacillus Acidophilus (Bacid Acidophilus) 1 cap PO BID [facility] Last Admin: 10/30/16 18:57 Dose: 1 cap Levothyroxine Sodium (Synthroid) 125 mcg PO ACB [facility] Last Admin: 10/30/16 07:45 Dose: 125 mcg Nystatin (Nystop Topical Powder) 0 gm TOP DAILY [facility] Last Admin: 10/30/16 11:03 Dose: 1 applic Pantoprazole Sodium (Protonix Ec Tab) 40 mg PO 0600 [facility] Last Admin: 10/31/16 06:22 Dose: Not Given Polysaccharide Iron Complex (Ferrex-150) 150 mg PO DAILY [facility] Last Admin: 10/30/16 11:08 Dose: 150 mg Propranolol HCl (Inderal) 10 mg PO TID [facility] Last Admin: 10/30/16 18:57 Dose: 10 mg Spironolactone (Aldactone) 25 mg PO BID [facility] Last Admin: 10/30/16 18:57 Dose: 25 mg Tramadol HCl (Ultram) 50 mg PO TID PRN PRN Reason: Pain, moderate (4-7) Last Admin: 10/30/16 22:05 Dose: 50 mg - Labs Labs: 10/30/16 06:30 10/30/16 06:30 PT 12.0 Seconds (9.9-11.8) H 10/20/16 09:29 INR 1.11 (0.93-1.08) H 10/20/16 09:29 APTT 27.8 Seconds (23.7-30.8) 10/20/16 09:29 - Additional Findings Additional findings: Constitutional Appears: No Acute Distress - Head Exam Head Exam: ATRAUMATIC, NORMAL INSPECTION, NORMOCEPHALIC - Eye Exam Eye Exam: Normal appearance, PERRL Pupil Exam: NORMAL ACCOMODATION, PERRL - ENT Exam ENT Exam: Mucous Membranes Moist - Respiratory Exam Respiratory Exam: Rales (at bases), NORMAL BREATHING PATTERN. absent: Rhonchi, Wheezes - Cardiovascular Exam Cardiovascular Exam: Tachycardia, REGULAR RHYTHM, +S1, +S2. absent: Gallop, Rubs, Murmur - GI/Abdominal Exam GI & Abdominal Exam: Distended, Tenderness (mild to palpation), Normal Bowel Sounds. absent: Rigid, Mass, Rebound - Extremities Exam Extremities Exam: Pedal Edema (3+). absent: Calf Tenderness - Neurological Exam Neurological Exam: Alert, Awake, CN II-XII Intact, Oriented x3 - Psychiatric Exam Psychiatric exam: Normal Affect, Normal Mood - Skin Skin Exam: Dry, Normal Color, Rash, Warm Assessment and Plan - Assessment and Plan (Free Text) Plan: 51 y/o female with PMHx of DM2, CHF (EF 30% in 10/2016), HTN, chronic pulmonary effusion, HTN, DVT, PE, hypothyroidism, PSH of lap mitchell in 05/2016 and psych hx of schizophrenia and Bipolar disorder presented to the ED with complaints of abdominal pain. Patient was extubated on 10/15, and is on tele for closer monitoring. HHS improved, pt extubated and in NAD, decreasing anasarca. s/p 7 days of Doxycycline and 6 days of Meronepem. Pt received PICC line day 7. 1. Sepsis - CODE sepsis was called - Lactate 5.5 - hypothermia - hypotension - Pt evaluated by Dr. Foy, Dr. Amador and Dr. Liu - given 1L NS bolus - warmed by taylor hugger - transferred to ICU and endorsed to resident. 2. Anasarca - secondary to CHF - pain likely due to edema - CT abdomen showed mod sized b/l pleural effusions and consolidation in lung at R base, minimal ascites and large amount of subQ edema - f/u Mg/Phos, Lactic acid (labs could not be drawn from PICC line today, IR contacted, rec to give cathflo) - Bumex 2mg Q8 and Aldactone 25mg BID, per renal recs - pain control: tramadol PRN - Pulm consulted, recs appreciated - Nephro consulted, recs appreciated - daily weight: 165lbs - I/O: 700cc/2900cc; urinary catheter removed so output is unreliable - fluid restriction - ECHO (10/18): EF 30% 3. UTI - UCx growing yeast - Fluconazole 150mg PO x1, and continue Nystatin powder applied intra- and jr- vaginally - attempt pickens cath - UCx 10/19 growing VRE (contact precautions) - Blood cultures no growth - ID consulted, recs appreciated 4. Tachycardia - Propranolol 10mg TID - Cardio consulted, recs appreciated - continue to monitor closely 5. Hypothermia, 92F orally noted by nurse - pt on Taylor Rubio 6. Hyponatremia likely dilutional 7. Hypotension - pt likely dehydrated - consider starting fluids 8. Anemia, stable - Ferrex started 9. DM2, HONK resolved - FS 63 - hold DM meds 10. Hypothyroid - Synthroid 125mcg PO Dispo: TCU once patient is stable PTX/Eliquis Patient was seen, discussed and evaluated with attending, Dr. Perry Holcomb, PGY1 <Annmarie Amador - Last Filed: 11/02/16 16:44> Objective - Vital Signs/Intake and Output Vital Signs (last 24 hours): Temp Pulse Resp BP Pulse Ox 99.3 F 104 H 15 100/71 100 11/01/16 16:10 11/01/16 16:10 11/01/16 16:10 11/01/16 16:00 11/01/16 16:10 Intake and Output: 11/01/16 11/01/16 06:59 18:59 Intake Total 2448 481 Output Total 350 Balance 2098 481 - Medications Medications: Current Medications Apixaban (Eliquis) 2.5 mg PO BID [facility] PRN Reason: Protocol Last Admin: 11/01/16 17:29 Dose: 2.5 mg Hydrocortisone Sodium Succinate (Solu-Cortef) 50 mg IVP Q6H [facility] Last Admin: 11/01/16 13:25 Dose: 50 mg Hydromorphone HCl (Dilaudid) 0.5 mg IVP Q4H PRN PRN Reason: Pain, moderate (4-7) Meropenem 1g/NS 100mL IVPB (Meropenem 1g/Ns 100ml Ivpb) 1 gm in 100 mls @ 100 mls/hr IVPB Q12 [facility] PRN Reason: Protocol Stop: 11/07/16 14:26 Last Admin: 11/01/16 09:48 Dose: 100 mls/hr Fluconazole (Diflucan Iv 200 Mg/100 Ml Ns) 100 mls @ 100 mls/hr IVPB DAILY [facility] PRN Reason: Protocol Last Admin: 11/01/16 09:49 Dose: 100 mls/hr Dobutamine HCl/Dextrose (Dobutamine/Dextrose 5% 500mg/250ml) 500 mg in 250 mls @ 11.261 mls/hr IV .[id number] PRN; Protocol; 5 MCG/KG/MIN PRN Reason: TITRATE PER PROTOCOL Last Titration: 11/01/16 08:24 Dose: 0 mcg/kg/min, 0 mls/hr Norepinephrine Bitartrate 8 mg (/ Sodium Chloride) 258 mls @ 37.53 mls/hr IV .Q6H53M [facility]; 19.4 MCG/MIN PRN Reason: Protocol Last Titration: 11/01/16 13:16 Dose: 13 mcg/min, 25.15 mls/hr Sodium Chloride (Sodium Chloride 0.9%) 1,000 mls @ 999 mls/hr IV .Q1H1M [facility] Stop: 11/01/16 18:42 Insulin Detemir (Levemir) 20 unit SC DAILY [facility] Last Admin: 11/01/16 09:48 Dose: 20 unit Insulin Human Lispro (Humalog) 5 units SC ACHS [facility] Last Admin: 11/01/16 16:33 Dose: 5 units Insulin Human Lispro (Humalog Low) 0 units SC ACHS [facility] PRN Reason: Protocol Last Admin: 11/01/16 16:33 Dose: 4 units Lactobacillus Acidophilus (Bacid Acidophilus) 1 cap PO BID [facility] Last Admin: 11/01/16 17:29 Dose: 1 cap Levothyroxine Sodium (Synthroid) 125 mcg PO ACB [facility] Last Admin: 11/01/16 08:19 Dose: 125 mcg Nystatin (Nystop Topical Powder) 0 gm TOP DAILY [facility] Last Admin: 11/01/16 10:00 Dose: 1 applic Pantoprazole Sodium (Protonix Ec Tab) 40 mg PO 0600 [facility] Last Admin: 11/01/16 05:20 Dose: 40 mg Polysaccharide Iron Complex (Ferrex-150) 150 mg PO DAILY [facility] Last Admin: 11/01/16 09:48 Dose: 150 mg Propranolol HCl (Inderal) 10 mg PO TID [facility] Last Admin: 10/31/16 17:52 Dose: Not Given Tramadol HCl (Ultram) 50 mg PO TID PRN PRN Reason: Pain, moderate (4-7) Last Admin: 10/31/16 13:07 Dose: 50 mg - Labs Labs: 11/01/16 05:20 11/01/16 05:20 PT 12.0 Seconds (9.9-11.8) H 10/20/16 09:29 INR 1.11 (0.93-1.08) H 10/20/16 09:29 APTT 27.8 Seconds (23.7-30.8) 10/20/16 09:29 Attending/Attestation - Attestation I have personally seen and examined this patient.: Yes I have fully participated in the care of the patient.: Yes I have reviewed all pertinent clinical information, including history, physical exam and plan: Yes Notes (Text): I have seen and examined patient at bedside. Agree with the above note with the following additions/ exceptions: Briefly this is 51 year old female with history of DM-2, CHF(EF~30%), HTN, chronic pulmonary effusion, HTN, DVT, PE on eliquis, hypothyroidism, schizophrenia and Bipolar disorder who presented initially with HONK which has resolved and sepsis. Hospitalization was complicated with persistent sepsis, OLLIE, transaminitis, hyponatremia and ansarca secondary to cardiorenal etiology. Patient had clinical worsening today and code sepsis was called due to persistent hypotension, hypothermia and lactic acidosis. Patient was transferred to ICU for vasopressors. Start antibiotics, diflucan and bicarb. Pickens was reinserted. Continue nystatin powder. Patient remains full code. PT recommended MITCH. Upon discharge patient will follow up with Dr Roman. Dr Annmarie Amador
--- NOTE | 2016-10-31 11:14 | CT ---
PROCEDURE: CT Abdomen and Pelvis without intravenous contrast HISTORY: intractable abd pain COMPARISON: None. TECHNIQUE: Without contrast. Contrast Dose: Radiation dose: Total exam DLP = 1196 mGy-cm. This CT exam was performed using one or more of the following dose reduction techniques: Automated exposure control, adjustment of the mA and/or kV according to patient size, and/or use of iterative reconstruction technique. FINDINGS: LOWER THORAX: Moderate size bilateral pleural effusions are seen. There is some consolidation in the adjacent lung at the right base. LIVER: Unremarkable. No gross lesion or ductal dilatation. GALLBLADDER AND BILE DUCTS: Gallbladder removed PANCREAS: Unremarkable. No gross lesion or ductal dilatation. SPLEEN: Unremarkable. ADRENALS: Unremarkable. No mass. KIDNEYS AND URETERS: Unremarkable. No hydronephrosis. No solid mass. VASCULATURE: Unremarkable. No aortic aneurysm. BOWEL: Unremarkable. No obstruction. No gross mural thickening. APPENDIX: Unremarkable. Normal appendix. PERITONEUM: There is a small amount of free fluid LYMPH NODES: Unremarkable. No enlarged lymph nodes. BLADDER: Unremarkable. REPRODUCTIVE: Unremarkable. BONES: No acute fracture. OTHER FINDINGS: There is a large amount of subcutaneous edema consistent with anasarca. IMPRESSION: Large amount of subcutaneous edema. Minimal ascites. Moderate pleural effusions
[2016-10-31 13:35] LABS: HEMOGLOBIN 11.1 gm/dL (12.0-16.0); MEAN CELL VOLUME 76.8 fL (80.0-105.0); MEAN CORPUSCULAR HEMOGLOBIN 25.8 pg (25.0-35.0); MEAN CORPUSCULAR HGB CONC 33.5 g/dl (31.0-37.0); MEAN PLATELET VOLUME 10.1 fl (7.0-11.0); RBC 4.31 10^6/uL (3.5-6.1); RED CELL DISTRIBUTION WIDTH 20.3 % (11.5-14.5); WHITE BLOOD COUNT 20.7 10^3/ul (4.5-11.0)
[2016-10-31] MEDS ORDERED: Vancomycin 1gm in NS 250ml 1 GM/250 ML BAG IVPB STA (14:25)
--- NOTE | 2016-10-31 14:28 | PCM.SEPTIC ---
Sepsis Progress Note - Reassessment Type Reassessment Type: Non-invasive reassessment - Non Invasive Reassessment Were the most recent vital sign reviewed: Yes Vital Sign (Latest): Temp Pulse Resp BP Pulse Ox 94 F L 98 H 18 70/52 L 94 L 10/31/16 12:00 10/31/16 12:00 10/31/16 12:00 10/31/16 12:00 10/31/16 08:56 Cardiovascular: Yes: Tachycardia Respiratory: Yes: Decreased Breath Sounds Capillary Refill: Delayed Pulses: Decreased Radial, Decreased Dorsalis Pedis, Decreased Posterior Tibialis Skin: Dry
[2016-10-31] MEDS ORDERED: Sodium Chloride 0.9% 1,000 ML IV STA ×2 (14:29→18:06)
[2016-10-31] MEDS: Meropenem 1g/NS 100mL IVPB 1 GM/100 ML PIGGYBACK IVPB SCH (15:00)
[2016-10-31] MEDS: Fluconazole IV 200mg/100 ml NS 100 ML IVPB SCH (15:39)
--- NOTE | 2016-10-31 15:39 | CP.PCM.PN ---
Subjective - Date & Time of Evaluation Date of Evaluation: 10/31/16 Time of Evaluation: 15:05 - Subjective Subjective: CODE SEPSIS A code sepsis was called at 1503 and team responded STAT. Pt was noted to be hypotensive 98/57, hypothermic (94F), HR 90, and RR22, with a lactate reading of 5.5. Upon arrival, pt was lethargic, and noted to be sitting in her chair hunched over. Pt stated that she did not want to be in bed because it made her short of breath. Pt had Sony hugger wrapped around her and a blanket placed around her. Dr. Foy, Dr. Xavier Amador, and Dr. Liu all arrived to evaluate the patient. Pt is complaining of abdominal pain. Patient has PMH of CHF (EF30%), DM2, recurrent PE, chronic pulmonary effusions, HTN, hypothyroidism, schizophrenia and bipolar disorder. Objective - Vital Signs/Intake and Output Vital Signs (last 24 hours): Temp Pulse Resp BP Pulse Ox 94 F L 98 H 18 70/52 L 94 L 10/31/16 12:00 10/31/16 12:00 10/31/16 12:00 10/31/16 12:00 10/31/16 08:56 - Medications Medications: Current Medications Apixaban (Eliquis) 2.5 mg PO BID [facility] PRN Reason: Protocol Last Admin: 10/31/16 10:59 Dose: 2.5 mg Bumetanide (Bumex) 2 mg IVP Q8H [facility] Last Admin: 10/31/16 12:31 Dose: Not Given Meropenem 1g/NS 100mL IVPB (Meropenem 1g/Ns 100ml Ivpb) 1 gm in 100 mls @ 100 mls/hr IVPB Q12 [facility] PRN Reason: Protocol Stop: 11/07/16 14:26 Vancomycin HCl (Vancomycin 1gm) 1 gm in 250 mls @ 167 mls/hr IVPB STAT [facility] PRN Reason: Protocol Stop: 10/31/16 15:54 Sodium Chloride (Sodium Chloride 0.9%) 1,000 mls @ 999 mls/hr IV .Q1H1M [facility] Stop: 10/31/16 15:29 Fluconazole (Diflucan Iv 200 Mg/100 Ml Ns) 100 mls @ 100 mls/hr IVPB DAILY [facility] PRN Reason: Protocol Insulin Detemir (Levemir) 20 unit SC DAILY [facility] Last Admin: 10/31/16 09:42 Dose: Not Given Insulin Human Lispro (Humalog) 5 units SC ACHS [facility] Last Admin: 10/31/16 12:31 Dose: Not Given Insulin Human Lispro (Humalog Low) 0 units SC ACHS [facility] PRN Reason: Protocol Last Admin: 10/31/16 12:32 Dose: Not Given Lactobacillus Acidophilus (Bacid Acidophilus) 1 cap PO BID [facility] Last Admin: 10/31/16 10:56 Dose: 1 cap Levothyroxine Sodium (Synthroid) 125 mcg PO ACB [facility] Last Admin: 10/31/16 11:00 Dose: 125 mcg Nystatin (Nystop Topical Powder) 0 gm TOP DAILY [facility] Last Admin: 10/30/16 11:03 Dose: 1 applic Pantoprazole Sodium (Protonix Ec Tab) 40 mg PO 0600 [facility] Last Admin: 10/31/16 06:22 Dose: Not Given Polysaccharide Iron Complex (Ferrex-150) 150 mg PO DAILY [facility] Last Admin: 10/31/16 10:59 Dose: 150 mg Propranolol HCl (Inderal) 10 mg PO TID [facility] Last Admin: 10/31/16 10:58 Dose: 10 mg Spironolactone (Aldactone) 25 mg PO BID [facility] Last Admin: 10/31/16 10:58 Dose: 25 mg Tramadol HCl (Ultram) 50 mg PO TID PRN PRN Reason: Pain, moderate (4-7) Last Admin: 10/31/16 13:07 Dose: 50 mg - Labs Labs: 10/31/16 13:20 10/30/16 06:30 PT 12.0 Seconds (9.9-11.8) H 10/20/16 09:29 INR 1.11 (0.93-1.08) H 10/20/16 09:29 APTT 27.8 Seconds (23.7-30.8) 10/20/16 09:29 - Constitutional Appears: Toxic, No Acute Distress, Chronically Ill, Other (lethargic) - Head Exam Head Exam: ATRAUMATIC, NORMAL INSPECTION, NORMOCEPHALIC - Eye Exam Eye Exam: EOMI, Normal appearance, PERRL Pupil Exam: NORMAL ACCOMODATION - ENT Exam ENT Exam: Mucous Membranes Moist, Normal Exam - Neck Exam Neck Exam: Normal Inspection - Respiratory Exam Respiratory Exam: Decreased Breath Sounds (in b/l lower lung parry), Rales ( creptiations in lower lung parry), NORMAL BREATHING PATTERN. absent: Accessory Muscle Use, Chest Wall Tenderness, Wheezes, Respiratory Distress, Stridor - Cardiovascular Exam Cardiovascular Exam: RRR, +S1, +S2. absent: Gallop, JVD, Rubs, Murmur - GI/Abdominal Exam GI & Abdominal Exam: Distended, Soft, Tenderness (diffuse ), Normal Bowel Sounds. absent: Firm, Guarding - Extremities Exam Extremities Exam: Pedal Edema (4+). absent: Calf Tenderness - Neurological Exam Neurological Exam: Altered, Awake (but is lethargic), Oriented x3 Additional comments: moves extremities spontaneously - Psychiatric Exam Psychiatric exam: Normal Affect, Normal Mood - Skin Skin Exam: Dry (skin turgor diminshed), Normal Color, Rash (erythematous noted in inner thighs and perineal region), Warm. absent: Cyanosis, Diaphoretic, Pallor Assessment and Plan - Assessment and Plan (Free Text) Assessment: 51yo F PMH CHF, DM2, HTN and others for whom CODE SEPSIS was called due to her hypothermia, hypotension and lactate of 5.5 Plan: 1. Sepsis - blood cultures drawn earlier in the day, f/u - started on Vancomycin and Meropenem - pt given 1L NS bolus for hypotension, per sepsis protocol - pt was seen and evaluated by Dr. Liu and accepted to ICU - ABG's to be done STAT - pt on Sony hugger for warming - pt transferred to the ICU and endorsed to the resident
[2016-10-31] MEDS: Nystatin 100,000 Units/gm Topical Pow(15 gm) TOP SCH (15:43)
[2016-10-31 16:17] LABS: BASO # 0.02 K/mm3 (0.0-2.0); BASO % 0.1 % (0.0-3.0); GRAN # 16.04 (1.4-6.5); GRAN % 78.2 % (50.0-68.0); HEMOGLOBIN 10.4 gm/dL (12.0-16.0); LYMPH % 14.4 % (22.0-35.0); MEAN CELL VOLUME 76.3 fL (80.0-105.0); MEAN CORPUSCULAR HEMOGLOBIN 25.7 pg (25.0-35.0); MEAN CORPUSCULAR HGB CONC 33.7 g/dl (31.0-37.0); MONO # 1.5 (0.1-0.6); MONO % 7.3 % (1.0-6.0); PLATELET COUNT 287 10^3/uL (120.0-450.0); RBC 4.05 10^6/uL (3.5-6.1); RED CELL DISTRIBUTION WIDTH 20.2 % (11.5-14.5); WHITE BLOOD COUNT 20.5 10^3/ul (4.5-11.0)
[2016-10-31 16:18] LABS: VENOUS BLOOD GAS BASE EXCESS -8.7 mmol/L (0.0-2.0); VENOUS BLOOD GAS PO2 24 mm/Hg (30-55); VENOUS BLOOD PH 7.25 (7.32-7.43)
--- NOTE | 2016-10-31 16:23 | RAD ---
HISTORY: sepsis COMPARISON: 10/28/2016 FINDINGS: LUNGS: Bibasilar infiltrates and moderate bilateral pleural effusions unchanged PLEURA: As above CARDIOVASCULAR: Moderate cardiomegaly OSSEOUS STRUCTURES: No significant abnormalities. VISUALIZED UPPER ABDOMEN: Normal. OTHER FINDINGS: None. IMPRESSION: Bibasilar infiltrates and moderate bilateral pleural effusions unchanged
[2016-10-31 16:27] LABS: ALBUMIN 2.9 g/dL (3.0-4.8); CALCIUM 8.1 mg/dL (8.4-10.5); MAGNESIUM 1.9 mg/dL (1.7-2.2)
[2016-10-31] MEDS ORDERED: NOREPINEPHRINE BIT/0.9 % NACL 4 MG/250 ML BAG IV PRN (16:50)
[2016-10-31] MEDS: Sodium Bicarbonate 8.4% 150 MEQ in Dextrose 5% In Water 1,000 ML IV SCH (17:34)
[2016-10-31] MEDS ORDERED: HYDROmorphone 0.5 mg/0.5 ml ISec IVP STA (17:50)
[2016-10-31] MEDS ORDERED: HYDROmorphone 1 mg/ml ISec IVP STA (18:10)
[2016-10-31] MEDS ORDERED: Etomidate 20 mg/10ml Inj IV ONE (18:23)
--- NOTE | 2016-10-31 18:31 | CP.PCM.PN ---
Subjective - Date & Time of Evaluation Date of Evaluation: 10/31/16 Time of Evaluation: 10:00 - Subjective Subjective: Patient complaining of abd pain; unclear how much she's urinating; Objective - Vital Signs/Intake and Output Vital Signs (last 24 hours): Temp Pulse Resp BP Pulse Ox 96 F L 90 28 H 70/30 L 95 10/31/16 16:30 10/31/16 16:34 10/31/16 16:30 10/31/16 17:52 10/31/16 16:30 - Medications Medications: Current Medications Apixaban (Eliquis) 2.5 mg PO BID [facility] PRN Reason: Protocol Last Admin: 10/31/16 17:42 Dose: 2.5 mg Hydromorphone HCl (Dilaudid) 0.5 mg IVP Q4H PRN PRN Reason: Pain, moderate (4-7) Meropenem 1g/NS 100mL IVPB (Meropenem 1g/Ns 100ml Ivpb) 1 gm in 100 mls @ 100 mls/hr IVPB Q12 [facility] PRN Reason: Protocol Stop: 11/07/16 14:26 Last Admin: 10/31/16 15:00 Dose: 100 mls/hr Fluconazole (Diflucan Iv 200 Mg/100 Ml Ns) 100 mls @ 100 mls/hr IVPB DAILY [facility] PRN Reason: Protocol Last Admin: 10/31/16 15:39 Dose: 100 mls/hr NOREPINEPHRINE BIT/0.9 % NACL (Levophed 4 Mg/ 250 Ml Ns Premixed) 4 mg in 250 mls @ 15 mls/hr IV .[id number] PRN; Protocol; 4 MCG/MIN PRN Reason: TITRATE PER MD ORDER Last Admin: 10/31/16 17:33 Dose: 4 mcg/min, 15 mls/hr Sodium Bicarbonate 150 meq/ (Dextrose) 1,150 mls @ 100 mls/hr IV .[id number] [facility] Last Admin: 10/31/16 17:34 Dose: 100 mls/hr Sodium Chloride (Sodium Chloride 0.9%) 1,000 mls @ 999 mls/hr IV .Q1H1M [facility] Stop: 10/31/16 19:06 Last Admin: 10/31/16 18:11 Dose: 999 mls/hr Insulin Detemir (Levemir) 20 unit SC DAILY [facility] Last Admin: 10/31/16 09:42 Dose: Not Given Insulin Human Lispro (Humalog) 5 units SC ACHS [facility] Last Admin: 10/31/16 17:45 Dose: Not Given Insulin Human Lispro (Humalog Low) 0 units SC ACHS [facility] PRN Reason: Protocol Last Admin: 10/31/16 17:45 Dose: Not Given Lactobacillus Acidophilus (Bacid Acidophilus) 1 cap PO BID [facility] Last Admin: 10/31/16 17:42 Dose: 1 cap Levothyroxine Sodium (Synthroid) 125 mcg PO ACB [facility] Last Admin: 10/31/16 11:00 Dose: 125 mcg Nystatin (Nystop Topical Powder) 0 gm TOP DAILY [facility] Last Admin: 10/31/16 15:43 Dose: 1 applic Pantoprazole Sodium (Protonix Ec Tab) 40 mg PO 0600 [facility] Last Admin: 10/31/16 06:22 Dose: Not Given Polysaccharide Iron Complex (Ferrex-150) 150 mg PO DAILY [facility] Last Admin: 10/31/16 10:59 Dose: 150 mg Propranolol HCl (Inderal) 10 mg PO TID [facility] Last Admin: 10/31/16 17:52 Dose: Not Given Tramadol HCl (Ultram) 50 mg PO TID PRN PRN Reason: Pain, moderate (4-7) Last Admin: 10/31/16 13:07 Dose: 50 mg - Labs Labs: 10/31/16 16:13 10/31/16 16:13 PT 12.0 Seconds (9.9-11.8) H 10/20/16 09:29 INR 1.11 (0.93-1.08) H 10/20/16 09:29 APTT 27.8 Seconds (23.7-30.8) 10/20/16 09:29 - Constitutional Appears: In Acute Distress - Head Exam Head Exam: NORMOCEPHALIC - Eye Exam Eye Exam: absent: Scleral icterus - ENT Exam ENT Exam: Mucous Membranes Moist - Cardiovascular Exam Cardiovascular Exam: REGULAR RHYTHM Additional comments: systolic murmur - GI/Abdominal Exam GI & Abdominal Exam: Soft, Tenderness - Neurological Exam Neurological Exam: Alert, Awake - Psychiatric Exam Psychiatric exam: Agitated - Skin Additional comments: Distal ext cool to touch; Assessment and Plan (1) Shock Assessment & Plan: Clinical deterioration over past day; leukocytosis and lactic acidosis with severe hypotension indicative of shock, likely sepsis along with component of cardiogenic shock; Currently being stabilized by ICU team and started on vasopressor support; discussed with doorkeeper and may add inotropic agent as well; currently getting IVF boluses; being covered with antibiotics and antifungal coverage; -continue to hold all diuretics -no renal dose adjustment for diflucan -will likely need to re-dose meropenem to q24h for worsening renal function Status: Acute (2) Acute renal failure Assessment & Plan: After initially being cardiorenal etiology and responding to inotrope and diuresis, now in shock and may have progressed to ATN; will be able to better assess once BP stabilized; unable to quantify UO; Mildly elevated serum potassium; total body fluid overloaded in setting of decompensated CHF but otherwise relatively stable respiratory status; -No indication to start TRIMMER HAND currently but will monitor closely -awaiting pickens, repeat urine lytes Status: Acute (3) Hyponatremia Assessment & Plan: Initially due to severely decompensated CHF; however, in setting of shock may now be intravascularly volume depleted and so will hold off on any more tolvaptan for now; -agree with isotonic IVF boluses -repeating Urine osm, Na Status: Acute (4) CHF (congestive heart failure) Assessment & Plan: Severely decompensated systolic CHF w/ EF 30% and with severe mitral regurg; patient had been diuresing well as recent as 3 days ago while on dobutamine and high doses of IV lasix; Current change in clinical condition discussed with supervisor covering and lining who feels that while there is nothing against re-starting inotrope, it is not the mainstay of treatment; -holding diuretics in setting of shock Status: Acute (5) Metabolic acidosis Assessment & Plan: With new lactic acidosis in setting of shock; started on isotonic bicarb drip, agree; Status: Acute (6) Sepsis Status: Acute (7) Anemia Assessment & Plan: Hgb stable; on PO iron, continue as tolerated; Status: Acute - Assessment and Plan (Free Text) Assessment: Critical care time assessing/examining patient and discussion with critical care /primary team and supervisor covering and lining >35 minutes;
[2016-10-31] MEDS ORDERED: DOBUTamine 500mg/250ml D5W 500 MG/250 ML BAG IV PRN (19:04)
[2016-10-31] MEDS ORDERED: Fentanyl 1000mcg/100ml NS 1,000 MCG/100 ML BAG IV PRN (19:28)
[2016-10-31] MEDS: Midazolam 2 MG/2 ML VIAL IVP SCH (19:53)
[2016-10-31] MEDS: DOBUTamine 500mg/250ml D5W 500 MG/250 ML BAG IV PRN (20:00)
--- NOTE | 2016-10-31 20:09 | PN ---
DATE: 10/31/2016 SUBJECTIVE: The patient is a 51-year-old lady who initially presented to ICU more than a week ago with hypoxemic respiratory failure due to community-acquired pneumonia. At that time, she was intubated and required mechanical ventilatory support. Of note, the patient have left ventricular systolic dysfunction due to previous chemotherapy and XRT as well. Her sepsis was complicated by hyperosmolar nonketotic state and septic cardiomyopathy. The patient was successfully treated with subsequent extubation and resolution of severe sepsis and improvement in radiographic picture. The patient was transferred to regular floor, where she was doing fairly well up until recently. She did have on and off episodes of hypotension which were attributed to her habitual baseline low blood pressure. Nevertheless today, the patient was noted to be hypothermic and her lactic acid level remy to 5.5. At the same time, she was continued to be hypotensive. Of note, her urine and sputum showed yeasts. The patient remained on meropenem and vancomycin that would cover for most of bacterial pathogens especially in nosocomial setting, thus high suspicion for fungal infection was raised. The fact that the patient is hyponatremic and hypochloremic, raised possibility of intravascular hypovolemia despite substantial third spacing. That (intravascular hypovolemia) would also explain progression of acute kidney injury in combination with ATN due to sepsis. On presentation, the patient complains of abdominal pain. Of note, abdominal and pelvic CAT scan was done today which showed large amount of subcutaneous edema, minimal ascites, moderate pleural effusion but bowel were unremarkable, appendix unremarkable. No free air but just free fluid. Pancreas is unremarkable. Bowels were unremarkable. PAST MEDICAL HISTORY: Includes diabetes, systolic CHF, hypertension, nonischemic cardiomyopathy, DVT, PE, hyperthyroidism, schizophrenia, lymphoma, status post chemotherapy. PAST SURGICAL HISTORY: Cholecystectomy. FAMILY HISTORY: Noncontributory. SOCIAL HISTORY: No alcohol or illicit drug abuse. No tobacco smoking. ALLERGIES: NKDA. REVIEW OF SYSTEMS: Review of 12-point review of systems other than mentioned in history of present illness is negative. PHYSICAL EXAMINATION: VITAL SIGNS: Blood pressure prior to ICU admission was reported as 70/52, however during the ICU evaluation, it is 120/59, temperature 98.4, however, regular temperature used to be in the 96 area. Heart rate 98, respiratory rate 18, oxygen saturation 94% on room air. HEENT: Head and neck is atraumatic. LUNGS: Decreased breath sounds bilaterally. Some crackles in the right base. HEART: Regular rate and rhythm. S1 and S2 distant. ABDOMEN: Soft, however tender diffusely. There is no peritoneal signs, no voluntary or involuntary guarding. MUSCULOSKELETAL: There 1 to 2+ bilateral pedal and ankle edema. NEUROLOGIC: The patient moves all extremities spontaneously. SKIN: Moist. PSYCHIATRIC: The patient is alert and oriented x3. LABORATORY DATA: WBC 20.7, up from 14.7, hemoglobin 11.1, and platelet count 296. Sodium 127, potassium 4.6, chloride 89, carbon dioxide 26, BUN 56, and creatinine 1.7, up from 1.5 (0.5 baseline), lactic acid 5.5, AST 59, ALT 133, total bilirubin 0.7, procalcitonin 0.4. MEDICATIONS: Eliquis, Bumex is on hold, fluconazole 200 mg IV daily, Levemir 20 units subQ daily, regular insulin sliding scale low protocol, lispro 5 units subQ a.c. and at bedtime, Ferrex, lactobacillus, Synthroid, meropenem, Protonix, propranolol, Ultram, vancomycin. ASSESSMENT AND PLAN: This is a 51-year-old lady with originally improved severe sepsis due to community-acquired pneumonia who presented to ICU for another bout of what appears to be severe sepsis with progression of acute kidney injury, hypothermia and leukocytosis despite broad-spectrum antibiotic coverage with meropenem and vancomycin. The fact that patient has yeast growing from 2 body locations, concern for invasive fungal infection was raised. At the present time, we will proceed with repeating blood culture, urine culture, beta-1, 3-D glucan and galactomannan. I will start the patient on Diflucan 200 mg IV daily. I discussed that with ID service Dr. Bean who agreed. We will repeat blood and urine culture. I will continue with meropenem and vancomycin. I will continue with fluid resuscitation and 1 L of normal saline wide-open was already given. I will repeat lactic acid level to ascertain resolution of lactic acidosis. The patient appears to be intravascularly depleted even though she has substantial third spacing. This is possible in the setting of severe sepsis. I will remove PICC line and place temporary CVC. I would continue to maintain euvolemia, euglycemia, normothermia,and oxygen saturation more than 90%.. I would continue with DVT and GI prophylaxis. ccm time 40 min Rancho Liu MD MTDDylon
[2016-10-31 20:15] LABS: ARTERIAL BLOOD GAS O2 SAT 99.7 % (95-98); ARTERIAL BLOOD GAS PCO2 24 mm/Hg (35-45); ARTERIAL BLOOD GAS PH 7.27 (7.35-7.45); ARTERIAL BLOOD GAS TCO2 11.7 mmol.L (22-28)
[2016-10-31 21:02] LABS: VENOUS BLOOD GAS BASE EXCESS -8.8 mmol/L (0.0-2.0); VENOUS BLOOD GAS PO2 49 mm/Hg (30-55); VENOUS BLOOD PH 7.25 (7.32-7.43)
[2016-10-31 21:47] LABS: PH,URINE 5.5 (4.7-8.0); URINE BILIRUBIN NEGATIVE (NEGATIVE); URINE BLOOD LARGE (NEGATIVE); URINE GLUCOSE (UA) NEGATIVE (NEGATIVE); URINE LEUKOCYTE ESTERASE TRACE Leu/uL (NEGATIVE); URINE NITRATE NEGATIVE (NEGATIVE); URINE PROTEIN 30 mg/dL (<30 mg/dL); URINE UROBILINOGEN 0.2 E.U./dL (<1 E.U./dL)
[2016-10-31 21:53] LABS: URINE APPEARANCE SL CLOUDY (CLEAR); URINE COLOR YELLOW (YELLOW)
[2016-10-31 22:25] LABS: URINE BACTERIA MOD (NEG); URINE WBC 0 - 2 /hpf (0-6)
[2016-11-01 01:14] LABS: ARTERIAL BLOOD GAS HCO3 16.6 mmol/L (21-28); ARTERIAL BLOOD GAS O2 SAT 100.2 % (95-98); ARTERIAL BLOOD GAS PCO2 33 mm/Hg (35-45); ARTERIAL BLOOD GAS PH 7.31 (7.35-7.45); ARTERIAL BLOOD GAS TCO2 17.6 mmol.L (22-28)
[2016-11-01] MEDS: Sodium Bicarbonate 8.4% 150 MEQ in Dextrose 5% In Water 1,000 ML IV SCH ×2 (05:00→08:27)
[2016-11-01] MEDS: Pantoprazole 40 mg EC Tab PO SCH (05:20)
[2016-11-01 05:47] LABS: MEAN CELL VOLUME 74.8 fL (80.0-105.0); MEAN CORPUSCULAR HEMOGLOBIN 25.2 pg (25.0-35.0); MEAN CORPUSCULAR HGB CONC 33.7 g/dl (31.0-37.0); MEAN PLATELET VOLUME 9.6 fl (7.0-11.0); PLATELET COUNT 324 10^3/uL (120.0-450.0); RBC 3.97 10^6/uL (3.5-6.1); RED CELL DISTRIBUTION WIDTH 20.1 % (11.5-14.5)
[2016-11-01 05:48] LABS: VENOUS BLOOD GAS BASE EXCESS -1.3 mmol/L (0.0-2.0); VENOUS BLOOD GAS PO2 160 mm/Hg (30-55); VENOUS BLOOD PH 7.34 (7.32-7.43)
[2016-11-01 05:52] LABS: WHITE BLOOD COUNT 26.9 10^3/ul (4.5-11.0)
[2016-11-01 06:14] LABS: ALBUMIN 2.9 g/dL (3.0-4.8); CALCIUM 8.1 mg/dL (8.4-10.5)
--- NOTE | 2016-11-01 06:23 | OP ---
PROCEDURE DATE: PROCEDURE: Endotracheal intubation. INDICATION: Respiratory failure and inability to protect the patient's airways, severe metabolic/lactic acidosis with components of respiratory acidosis, shock. DESCRIPTION OF THE PROCEDURE: Patient was preoxygenated with 100% FiO2 for 2 to 5 minutes. 2 liters of normal saline were given IV. Levophed was started in the pre-procedural period. Direct laryngoscopy was performed with MAC 3 blade. Vocal cords were visualized and trachea intubated with 7.5 Mongolian endotracheal tube. The position confirmed with bilateral lung auscultation, gastric auscultation, change in the color of end tidal C02. Chest x-ray confirmed correct position of the endotracheal tube and no immediate complications Rancho Liu MD MTDD
[2016-11-01 06:37] LABS: ANISOCYTOSIS 1+; BAND 4 % (0-2); HYPOCHROMIA SLIGHT; LYMPHOCYTE 7 % (22.0-35.0); MONOCYTE 2 % (1.0-6.0); NEUTROPHIL 87 % (50.0-70.0); PLATELET ESTIMATE NORMAL (NORMAL)
[2016-11-01 06:38] LABS: NUCLEATED RED BLOOD CELL 4 %
--- NOTE | 2016-11-01 07:55 | RAD ---
HISTORY: s/p intubation, NGT insertion, Central line inser COMPARISON: 10/31/2016 at 4 p.m. FINDINGS: The right IJV line terminates at the cavoatrial junction. The left PICC line terminates in the right atrium. The nasogastric tube terminates in the stomach. LUNGS: There is moderate pulmonary venous congestion. PLEURA: There are moderate pleural effusions. No pneumothorax. CARDIOVASCULAR: Normal. OSSEOUS STRUCTURES: No significant abnormalities. VISUALIZED UPPER ABDOMEN: Normal. OTHER FINDINGS: None. IMPRESSION: 1. Right IJV line terminates at the cavoatrial junction. The left PICC line terminates in the right atrium. 2. Moderate pulmonary venous congestion and moderate bilateral pleural effusions.
--- NOTE | 2016-11-01 08:12 | OP ---
PROCEDURE DATE: 10/31/2016 PROCEDURE: Central line placement, IJ. DESCRIPTION OF PROCEDURE: After obtaining informed consent, operational area was sterilized. Maximum barrier precautions used. Right IJ was cannulated under the real time ultrasound guidance by modified Seldinger technique. Guidewire removed. Hemostasis achieved and sterile dressing applied. Blood loss was minimal. Chest x-ray confirmed correct revision of the central line. No immediate complication. No pneumothorax. Rancho Liu MD [facility]
[2016-11-01] MEDS: Insulin Lispro (humaLOG) LOW Coverage SC SCH ×4 (08:18→22:15)
[2016-11-01] MEDS: Levothyroxine 125 MCG TAB PO SCH (08:19)
[2016-11-01] MEDS: Insulin Lispro 1 UNITS/0.01 ML SC SCH ×4 (08:19→22:21)
[2016-11-01] MEDS: Midazolam 2 MG/2 ML VIAL IVP SCH (08:37)
--- NOTE | 2016-11-01 08:38 | RAD ---
HISTORY: intubated COMPARISON: 10/31/2016 FINDINGS: The right IJV line terminates in the right atrium. There has been interval extubation. LUNGS: Again seen is moderate pulmonary venous congestion PLEURA: There is no significant interval change in moderate pleural effusions. No pneumothorax. CARDIOVASCULAR: Normal. OSSEOUS STRUCTURES: No significant abnormalities. VISUALIZED UPPER ABDOMEN: Normal. OTHER FINDINGS: None. IMPRESSION: Status post extubation, no significant interval change in moderate pulmonary venous congestion and moderate bilateral pleural effusions.
[2016-11-01] MEDS: Insulin Detemir 100 units/ml Vial (Levemir) SC SCH (09:48)
[2016-11-01] MEDS: Iron Complex Polysacch 150mg Cap PO SCH (09:48)
[2016-11-01] MEDS: Meropenem 1g/NS 100mL IVPB 1 GM/100 ML PIGGYBACK IVPB SCH ×2 (09:48→22:21)
[2016-11-01] MEDS: Lactobacillus Acidophilus 500 MU Cap PO SCH ×2 (09:48→17:29)
[2016-11-01] MEDS: Fluconazole IV 200mg/100 ml NS 100 ML IVPB SCH (09:49)
--- NOTE | 2016-11-01 09:53 | US ---
HISTORY: Leg pain and swelling. Evaluate for DVT PHYSICIAN(S): Kal Peña MD. TECHNIQUE: Duplex sonography and color-flow Doppler with graded compression were used to evaluate the deep venous systems of both lower extremities. The tibial veins are not well seen due to swelling FINDINGS: The venous waveforms are pulsatile, consistent with elevated right heart pressures. The visualized deep venous systems of both lower extremities are sonographically normal and compressible. Normal wave forms and augmentation are seen. There is no sonographic evidence for deep venous thrombosis in the visualized segments of both lower extremities. IMPRESSION: No sonographic evidence for deep venous thrombosis in the visualized segments of both lower extremities. Limited study.
[2016-11-01] MEDS: Nystatin 100,000 Units/gm Topical Pow(15 gm) TOP SCH (10:00)
--- NOTE | 2016-11-01 11:50 | CP.PCM.PN ---
Subjective - Date & Time of Evaluation Date of Evaluation: 11/01/16 Time of Evaluation: 10:30 - Subjective Subjective: Patient self-extubated overnight; reports breathing improved; Objective - Vital Signs/Intake and Output Vital Signs (last 24 hours): Temp Pulse Resp BP Pulse Ox 98.2 F 97 H 20 112/74 99 11/01/16 04:00 11/01/16 06:00 11/01/16 06:00 11/01/16 06:00 11/01/16 06:00 Intake and Output: 11/01/16 11/01/16 06:59 18:59 Intake Total 2448 408 Output Total 350 Balance 2098 408 - Medications Medications: Current Medications Apixaban (Eliquis) 2.5 mg PO BID IZABELA PRN Reason: Protocol Last Admin: 11/01/16 09:47 Dose: 2.5 mg Hydrocortisone Sodium Succinate (Solu-Cortef) 50 mg IVP Q6H IZABELA Last Admin: 11/01/16 08:19 Dose: 50 mg Hydromorphone HCl (Dilaudid) 0.5 mg IVP Q4H PRN PRN Reason: Pain, moderate (4-7) Meropenem 1g/NS 100mL IVPB (Meropenem 1g/Ns 100ml Ivpb) 1 gm in 100 mls @ 100 mls/hr IVPB Q12 IZABELA PRN Reason: Protocol Stop: 11/07/16 14:26 Last Admin: 11/01/16 09:48 Dose: 100 mls/hr Fluconazole (Diflucan Iv 200 Mg/100 Ml Ns) 100 mls @ 100 mls/hr IVPB DAILY IZABELA PRN Reason: Protocol Last Admin: 11/01/16 09:49 Dose: 100 mls/hr Sodium Bicarbonate 150 meq/ (Dextrose) 1,150 mls @ 100 mls/hr IV .[id number] IZABELA Last Admin: 11/01/16 08:27 Dose: 100 mls/hr Fentanyl Citrate (Fentanyl Citrate/Sodium Chloride 1 Mg/100 Ml) 1,000 mcg in 100 mls @ 7.5 mls/hr IV .[id number] PRN; Protocol; 75 MCG/HR PRN Reason: TITRATE PER MD ORDER Last Admin: 10/31/16 21:06 Dose: 40 mcg/hr, 4 mls/hr Dobutamine HCl/Dextrose (Dobutamine/Dextrose 5% 500mg/250ml) 500 mg in 250 mls @ 11.261 mls/hr IV .[id number] PRN; Protocol; 5 MCG/KG/MIN PRN Reason: TITRATE PER PROTOCOL Last Titration: 11/01/16 08:24 Dose: 0 mcg/kg/min, 0 mls/hr Norepinephrine Bitartrate 8 mg (/ Sodium Chloride) 258 mls @ 37.53 mls/hr IV .[id number] IZABELA; 19.4 MCG/MIN PRN Reason: Protocol Last Admin: 11/01/16 11:07 Dose: 18 mcg/min, 34.83 mls/hr Insulin Detemir (Levemir) 20 unit SC DAILY [facility] Last Admin: 11/01/16 09:48 Dose: 20 unit Insulin Human Lispro (Humalog) 5 units SC ACHS [facility] Last Admin: 11/01/16 11:47 Dose: 5 units Insulin Human Lispro (Humalog Low) 0 units SC ACHS IZABELA PRN Reason: Protocol Last Admin: 11/01/16 11:48 Dose: 4 units Lactobacillus Acidophilus (Bacid Acidophilus) 1 cap PO BID [facility] Last Admin: 11/01/16 09:48 Dose: 1 cap Levothyroxine Sodium (Synthroid) 125 mcg PO ACB [facility] Last Admin: 11/01/16 08:19 Dose: 125 mcg Midazolam HCl (Versed Inj) 2 mg IVP Q4H [facility] Last Admin: 11/01/16 08:37 Dose: Not Given Nystatin (Nystop Topical Powder) 0 gm TOP DAILY [facility] Last Admin: 11/01/16 10:00 Dose: 1 applic Pantoprazole Sodium (Protonix Ec Tab) 40 mg PO 0600 [facility] Last Admin: 11/01/16 05:20 Dose: 40 mg Polysaccharide Iron Complex (Ferrex-150) 150 mg PO DAILY [facility] Last Admin: 11/01/16 09:48 Dose: 150 mg Propranolol HCl (Inderal) 10 mg PO TID [facility] Last Admin: 10/31/16 17:52 Dose: Not Given Tramadol HCl (Ultram) 50 mg PO TID PRN PRN Reason: Pain, moderate (4-7) Last Admin: 10/31/16 13:07 Dose: 50 mg - Labs Labs: 11/01/16 05:20 11/01/16 05:20 PT 12.0 Seconds (9.9-11.8) H 10/20/16 09:29 INR 1.11 (0.93-1.08) H 10/20/16 09:29 APTT 27.8 Seconds (23.7-30.8) 10/20/16 09:29 - Constitutional Appears: Non-toxic, No Acute Distress - Head Exam Head Exam: NORMAL INSPECTION - Eye Exam Eye Exam: absent: Scleral icterus - ENT Exam ENT Exam: Mucous Membranes Moist - Respiratory Exam Respiratory Exam: Clear to Ausculation Bilateral. absent: Rales, Rhonchi, Wheezes, Respiratory Distress - Cardiovascular Exam Cardiovascular Exam: RRR Additional comments: systolic murmur; - GI/Abdominal Exam GI & Abdominal Exam: Soft, Tenderness - Exam Additional comments: pickens in place; - Extremities Exam Additional comments: severely edematous legs extending to low back; - Neurological Exam Neurological Exam: Alert, Awake - Skin Skin Exam: Normal Color. absent: Cyanosis Assessment and Plan (1) Shock Assessment & Plan: Being managed as septic shock with leukocytosis, lactic acidosis and hypotension that occurred rather suddenly; no positive blood cultures; on meropenem (agree with q12h dosing for renal insufficiency) and fluconazole (no renal dose adjustment needed); agree with IVF for now; may need to restart inotrope for component of cardiogenic shock; Status: Acute (2) Acute renal failure Assessment & Plan: Repeat urine lytes consistent with pre-renal etiology in setting of shock; non- oliguric renal failure with serum creatinine stable; in setting of presumed sepsis, agree with IVF for now; once sepsis stabilized, need to restart diuretics and possibly inotrope (to which patient was responding well previously ) to decrease venous congestion in setting of decompensated CHF; Status: Acute (3) Hyponatremia Assessment & Plan: Has been secondary to severely decompensated CHF although now in setting of septic shock is likely intravascularly volume depleted; continue IVF; once sepsis stabilized, will benefit from tolvaptan; Status: Acute (4) CHF (congestive heart failure) Assessment & Plan: Severely decompensated systolic CHF w/ severe mitral regurg; as mentioned above , patient was responding well to inotrope and aggressive diuresis; will need to restart the same once sepsis stabilized; Status: Acute (5) Metabolic acidosis Assessment & Plan: Lactic acidosis improved; off bicarb drip; monitor; Status: Acute (6) Anemia Assessment & Plan: Due to iron deficiency and acute illness; continue PO iron; Status: Acute
--- NOTE | 2016-11-01 13:27 | PN ---
DATE: 11/01/2016 SUBJECTIVE: The patient is in bed, seen early this morning in the ICU and patient self extubated herself. Has no fevers. PHYSICAL EXAMINATION: VITAL SIGNS: She is comfortable with a temperature of 98, blood pressure is 111/70, respiratory rate of 18, and a heart rate of 101. HEENT: Unremarkable. NECK: Supple. LUNGS: Decreased breath sounds. HEART: Normal S1 and S2 ABDOMEN: Soft and nontender. LABORATORY DATA: Reveals a white count of 26,900, hemoglobin of 10, platelets of 324 and the chemistries are BUN of 72, creatinine of 2.4, LFTs are elevated, alkaline phosphatase is elevated and her last procalcitonin from yesterday is 0.09 and urinalysis is noted and antimitochondrial antibody is negative, serology is negative and yeast in the urine. Currently, patient is on IV Diflucan started by Dr. Liu. The patient is also on meropenem by Dr. Bean. Vancomycin dose was given yesterday. ASSESSMENT AND PLAN: A 51-year-old female seen early this morning in the ICU with SIRS (systemic inflammatory response syndrome) and patient who is status post severe sepsis, hypoxemic events, for her dependent respiratory failure due to the bilateral lower healthcare associated pneumonia, and now with hyperglycemic-hyperosmolar state, acute pancreatitis patient was transferred to the unit. Patient is extubated, awaiting for repeat pancultures with a negative for calcitonin thus far. We will make further recommendations. Yehuda Valentino MD
--- NOTE | 2016-11-01 15:03 | CP.PCM.PN ---
<SAROJ HOLCOMB - Last Filed: 11/01/16 15:31> Subjective - Date & Time of Evaluation Date of Evaluation: 11/01/16 Time of Evaluation: 07:40 - Subjective Subjective: patient was seen and examined at bedside in ICU. pt states that she pulled the tube out yesterday because it made her uncomfortable. She states that her abdominal pain has improved and that while her legs are still painful, they also have improved. denies chest pain, sob, fevers, or cough. pt had finished breakfast and was still hungry. Objective - Vital Signs/Intake and Output Vital Signs (last 24 hours): Temp Pulse Resp BP Pulse Ox 98.6 F 95 H 20 112/74 98 11/01/16 12:00 11/01/16 10:00 11/01/16 06:00 11/01/16 06:00 11/01/16 12:00 Intake and Output: 11/01/16 11/01/16 06:59 18:59 Intake Total 2448 481 Output Total 350 Balance 2098 481 - Medications Medications: Current Medications Apixaban (Eliquis) 2.5 mg PO BID IZABELA PRN Reason: Protocol Last Admin: 11/01/16 09:47 Dose: 2.5 mg Hydrocortisone Sodium Succinate (Solu-Cortef) 50 mg IVP Q6H IZABELA Last Admin: 11/01/16 13:25 Dose: 50 mg Hydromorphone HCl (Dilaudid) 0.5 mg IVP Q4H PRN PRN Reason: Pain, moderate (4-7) Meropenem 1g/NS 100mL IVPB (Meropenem 1g/Ns 100ml Ivpb) 1 gm in 100 mls @ 100 mls/hr IVPB Q12 IZABELA PRN Reason: Protocol Stop: 11/07/16 14:26 Last Admin: 11/01/16 09:48 Dose: 100 mls/hr Fluconazole (Diflucan Iv 200 Mg/100 Ml Ns) 100 mls @ 100 mls/hr IVPB DAILY IZABELA PRN Reason: Protocol Last Admin: 11/01/16 09:49 Dose: 100 mls/hr Dobutamine HCl/Dextrose (Dobutamine/Dextrose 5% 500mg/250ml) 500 mg in 250 mls @ 11.261 mls/hr IV .[id number] PRN; Protocol; 5 MCG/KG/MIN PRN Reason: TITRATE PER PROTOCOL Last Titration: 11/01/16 08:24 Dose: 0 mcg/kg/min, 0 mls/hr Norepinephrine Bitartrate 8 mg (/ Sodium Chloride) 258 mls @ 37.53 mls/hr IV .Q6H53M IZABELA; 19.4 MCG/MIN PRN Reason: Protocol Last Titration: 11/01/16 13:16 Dose: 13 mcg/min, 25.15 mls/hr Insulin Detemir (Levemir) 20 unit SC DAILY [facility] Last Admin: 11/01/16 09:48 Dose: 20 unit Insulin Human Lispro (Humalog) 5 units SC ACHS IZABELA Last Admin: 11/01/16 11:47 Dose: 5 units Insulin Human Lispro (Humalog Low) 0 units SC ACHS IZABELA PRN Reason: Protocol Last Admin: 11/01/16 11:48 Dose: 4 units Lactobacillus Acidophilus (Bacid Acidophilus) 1 cap PO BID [facility] Last Admin: 11/01/16 09:48 Dose: 1 cap Levothyroxine Sodium (Synthroid) 125 mcg PO ACB [facility] Last Admin: 11/01/16 08:19 Dose: 125 mcg Nystatin (Nystop Topical Powder) 0 gm TOP DAILY [facility] Last Admin: 11/01/16 10:00 Dose: 1 applic Pantoprazole Sodium (Protonix Ec Tab) 40 mg PO 0600 [facility] Last Admin: 11/01/16 05:20 Dose: 40 mg Polysaccharide Iron Complex (Ferrex-150) 150 mg PO DAILY [facility] Last Admin: 11/01/16 09:48 Dose: 150 mg Propranolol HCl (Inderal) 10 mg PO TID [facility] Last Admin: 10/31/16 17:52 Dose: Not Given Tramadol HCl (Ultram) 50 mg PO TID PRN PRN Reason: Pain, moderate (4-7) Last Admin: 10/31/16 13:07 Dose: 50 mg - Labs Labs: 11/01/16 05:20 11/01/16 05:20 PT 12.0 Seconds (9.9-11.8) H 10/20/16 09:29 INR 1.11 (0.93-1.08) H 10/20/16 09:29 APTT 27.8 Seconds (23.7-30.8) 10/20/16 09:29 - Constitutional Appears: Non-toxic, No Acute Distress, Chronically Ill - Head Exam Head Exam: ATRAUMATIC, NORMAL INSPECTION, NORMOCEPHALIC - Eye Exam Eye Exam: EOMI, Normal appearance, Periorbital swelling, PERRL. absent: Nystagmus, Scleral icterus Additional comments: face and eyes are swollen - ENT Exam ENT Exam: Mucous Membranes Moist, Normal Exam - Neck Exam Neck Exam: Normal Inspection Additional comments: R IJ in place - Respiratory Exam Respiratory Exam: Rales, NORMAL BREATHING PATTERN. absent: Accessory Muscle Use , Chest Wall Tenderness, Rhonchi, Wheezes, Respiratory Distress, Stridor Additional comments: breath sounds are improved from prior exams - Cardiovascular Exam Cardiovascular Exam: RRR, +S1, +S2. absent: Diastolic murmur, Gallop, JVD, Rubs , Murmur - GI/Abdominal Exam GI & Abdominal Exam: Soft, Normal Bowel Sounds. absent: Distended, Guarding, Tenderness, Organomegaly, Rebound Additional comments: obese less tender than prior exams - Extremities Exam Extremities Exam: Pedal Edema (3+). absent: Tenderness (when distracted, the pt does not comlpain of pain to palpation) - Neurological Exam Neurological Exam: Alert, Awake, Oriented x3 (person, place, time and president) - Psychiatric Exam Psychiatric exam: Normal Affect, Normal Mood - Skin Skin Exam: Normal Color, Rash (inner thigh rash noted, but improved from prior exam ), Warm. absent: Cyanosis, Diaphoretic - Additional Findings Additional findings: R IJ in place LUE PICC in place Pick[place] in place Assessment and Plan - Assessment and Plan (Free Text) Plan: 51 y/o female with PMHx of DM2, CHF (EF 30% in 10/2016), HTN, chronic pulmonary effusion, HTN, DVT, PE, hypothyroidism, PSH of lap mitchell in 05/2016 and psych hx of schizophrenia and Bipolar disorder presented to the ED with complaints of abdominal pain. Patient was extubated on 10/15, and is on tele for closer monitoring. HHS improved, pt extubated and in NAD, decreasing anasarca. s/p 7 days of Doxycycline and 6 days of Meronepem. Pt was in severe septic shock and was transferred to ICU. Pt was intubated due to acidosis and self-extubated on day 1 ICU. Currently ICU day 2 and pressors x2d. 1. Septic shock, likely a/w cardiogenic cause - Leukocytosis w/ bands - Lactate 2.1 improving - hypothermia resolved (off Sony hugger) - hypotension improving on Dobutamine 5mcg/kg/min, and Norepinephrine 19.4 mcg/ min - Meropenem 1gm Q12 needs to re-dose to q24h due to renal fxn per nephro, for empiric treatment - Vanco 1dose was given yesterday - Solu-Cortef given - Pt was given 3L fluid boluses - cardio consulted, recs appreciated 2. Anasarca - secondary to CHF and fluids for shock - pain likely due to edema - lasix held for now, per renal - pain control: dilaudid 0.5 PRN, tramadol PRN - Pulm consulted, recs appreciated - daily weight: 177lbs - I/O: 5000cc/400cc; urinary catheter in place - fluid restriction - ECHO (10/18): EF 30% 3. Metabolic acidosis - patient was on NaHCO3 - ABG improved pH 7.31 4. OLLIE likely due to shock (prerenal) - monitor I/O - hold diuretics, per nephro - nephro consulted, recs appreciated 5. UTI - UCx growing yeast - Fluconazole 100mls daily and continue Nystatin powder for therapeutic treatment of vaginitis - pickens in place - UCx 10/19 growing VRE (contact precautions) - Blood cultures no growth - ID consulted, recs appreciated 6. Hyponatremia - repeat Urine Osm, Na - pt received isotonic NS blouses 7. DM2, HONK resolved - continue DM meds 8. Hypothyroid - Synthroid 125mcg PO Dispo: TCU once patient is stable PTX/Eliquis Patient was seen, discussed and evaluated with attending, Dr. Perry Holcomb, PGY1 <Annmarie Amador - Last Filed: 11/02/16 16:50> Objective - Vital Signs/Intake and Output Vital Signs (last 24 hours): Temp Pulse Resp BP Pulse Ox 96 F L 95 H 20 95/56 L 100 11/02/16 16:00 11/02/16 15:59 11/02/16 15:59 11/02/16 16:00 11/01/16 19:31 Intake and Output: 11/02/16 11/02/16 06:59 18:59 Intake Total 443 718 Balance 443 718 - Medications Medications: Current Medications Apixaban (Eliquis) 2.5 mg PO BID IZABELA PRN Reason: Protocol Last Admin: 11/02/16 09:23 Dose: 2.5 mg Hydrocortisone Sodium Succinate (Solu-Cortef) 50 mg IVP Q6H IZABELA Last Admin: 11/02/16 13:50 Dose: 50 mg Hydromorphone HCl (Dilaudid) 0.5 mg IVP Q4H PRN PRN Reason: Pain, moderate (4-7) Last Admin: 11/01/16 19:38 Dose: 0.5 mg Meropenem 1g/NS 100mL IVPB (Meropenem 1g/Ns 100ml Ivpb) 1 gm in 100 mls @ 100 mls/hr IVPB Q12 IZABELA PRN Reason: Protocol Stop: 11/07/16 14:26 Last Admin: 11/02/16 09:23 Dose: 100 mls/hr Fluconazole (Diflucan Iv 200 Mg/100 Ml Ns) 100 mls @ 100 mls/hr IVPB DAILY IZABELA PRN Reason: Protocol Last Admin: 11/02/16 09:23 Dose: 100 mls/hr Dobutamine HCl/Dextrose (Dobutamine/Dextrose 5% 500mg/250ml) 500 mg in 250 mls @ 11.261 mls/hr IV .[id number] PRN; Protocol; 5 MCG/KG/MIN PRN Reason: TITRATE PER PROTOCOL Last Admin: 11/02/16 11:51 Dose: 2.5 mcg/kg/min, 5.63 mls/hr Norepinephrine Bitartrate 8 mg (/ Sodium Chloride) 258 mls @ 37.53 mls/hr IV .Q6H53M IZABELA; 19.4 MCG/MIN PRN Reason: Protocol Last Titration: 11/02/16 13:51 Dose: Infused Insulin Detemir (Levemir) 20 unit SC DAILY [facility] Last Admin: 11/02/16 09:22 Dose: 20 unit Insulin Human Lispro (Humalog) 5 units SC ACHS [facility] Last Admin: 11/02/16 13:50 Dose: 5 units Insulin Human Lispro (Humalog Low) 0 units SC ACHS IZABELA PRN Reason: Protocol Last Admin: 11/02/16 13:41 Dose: Not Given Lactobacillus Acidophilus (Bacid Acidophilus) 1 cap PO BID [facility] Last Admin: 11/02/16 09:23 Dose: 1 cap Levothyroxine Sodium (Synthroid) 125 mcg PO ACB [facility] Last Admin: 11/02/16 08:58 Dose: 125 mcg Nystatin (Nystop Topical Powder) 0 gm TOP DAILY [facility] Last Admin: 11/02/16 09:24 Dose: 1 applic Pantoprazole Sodium (Protonix Ec Tab) 40 mg PO 0600 [facility] Last Admin: 11/02/16 07:02 Dose: 40 mg Polysaccharide Iron Complex (Ferrex-150) 150 mg PO DAILY [facility] Last Admin: 11/02/16 09:22 Dose: 150 mg Propranolol HCl (Inderal) 10 mg PO TID [facility] Last Admin: 10/31/16 17:52 Dose: Not Given Tramadol HCl (Ultram) 50 mg PO TID PRN PRN Reason: Pain, moderate (4-7) Last Admin: 10/31/16 13:07 Dose: 50 mg - Labs Labs: 11/02/16 05:00 11/02/16 05:45 PT 12.0 Seconds (9.9-11.8) H 10/20/16 09:29 INR 1.11 (0.93-1.08) H 10/20/16 09:29 APTT 27.8 Seconds (23.7-30.8) 10/20/16 09:29 Attending/Attestation - Attestation I have personally seen and examined this patient.: Yes I have fully participated in the care of the patient.: Yes I have reviewed all pertinent clinical information, including history, physical exam and plan: Yes Notes (Text): I have seen and examined patient at bedside. Agree with the above note with the following additions/ exceptions: Briefly this is 51 year old female with history of DM-2, CHF(EF~30%), HTN, chronic pulmonary effusion, HTN, DVT, PE on eliquis, hypothyroidism, schizophrenia and Bipolar disorder who presented initially with HONK which has resolved and sepsis. Hospitalization was complicated with persistent sepsis, OLLIE, transaminitis, hyponatremia and ansarca secondary to cardiorenal etiology. Code sepsis was called yesterday due to persistent hypotension, hypothermia and lactic acidosis. Patient was transferred to ICU .She was intubated and self extubated herself overnight . Patient is AAO x3. She remains on vasopressors, antibiotics, diflucan and bicarb. Continue nystatin powder. Patient remains full code. PT recommended MITCH. Upon discharge patient will follow up with Dr Roman. Dr Annmarie Amador
--- NOTE | 2016-11-01 15:24 | CP.PCM.PN ---
<JACKYAREILA - Last Filed: 11/01/16 16:08> Subjective - Date & Time of Evaluation Date of Evaluation: 11/01/16 Time of Evaluation: 09:30 - Subjective Subjective: ICU PGY1 Progress Note: Pt seen and examined at bedside. Pt self extubated herself overnight, to NC, saturating well. Denies headache, blurry vision, confusion, sob, cp, n/v/d, abdominal pain. Objective - Vital Signs/Intake and Output Vital Signs (last 24 hours): Temp Pulse Resp BP Pulse Ox 98.6 F 95 H 20 112/74 98 11/01/16 12:00 11/01/16 10:00 11/01/16 06:00 11/01/16 06:00 11/01/16 12:00 Intake and Output: 11/01/16 11/01/16 06:59 18:59 Intake Total 2448 481 Output Total 350 Balance 2098 481 - Medications Medications: Current Medications Apixaban (Eliquis) 2.5 mg PO BID IZABELA PRN Reason: Protocol Last Admin: 11/01/16 09:47 Dose: 2.5 mg Hydrocortisone Sodium Succinate (Solu-Cortef) 50 mg IVP Q6H IZABELA Last Admin: 11/01/16 13:25 Dose: 50 mg Hydromorphone HCl (Dilaudid) 0.5 mg IVP Q4H PRN PRN Reason: Pain, moderate (4-7) Meropenem 1g/NS 100mL IVPB (Meropenem 1g/Ns 100ml Ivpb) 1 gm in 100 mls @ 100 mls/hr IVPB Q12 IZABELA PRN Reason: Protocol Stop: 11/07/16 14:26 Last Admin: 11/01/16 09:48 Dose: 100 mls/hr Fluconazole (Diflucan Iv 200 Mg/100 Ml Ns) 100 mls @ 100 mls/hr IVPB DAILY IZABELA PRN Reason: Protocol Last Admin: 11/01/16 09:49 Dose: 100 mls/hr Dobutamine HCl/Dextrose (Dobutamine/Dextrose 5% 500mg/250ml) 500 mg in 250 mls @ 11.261 mls/hr IV .[id number] PRN; Protocol; 5 MCG/KG/MIN PRN Reason: TITRATE PER PROTOCOL Last Titration: 11/01/16 08:24 Dose: 0 mcg/kg/min, 0 mls/hr Norepinephrine Bitartrate 8 mg (/ Sodium Chloride) 258 mls @ 37.53 mls/hr IV .Q6H53M IZABELA; 19.4 MCG/MIN PRN Reason: Protocol Last Titration: 11/01/16 13:16 Dose: 13 mcg/min, 25.15 mls/hr Insulin Detemir (Levemir) 20 unit SC DAILY [facility] Last Admin: 11/01/16 09:48 Dose: 20 unit Insulin Human Lispro (Humalog) 5 units SC ACHS [facility] Last Admin: 11/01/16 11:47 Dose: 5 units Insulin Human Lispro (Humalog Low) 0 units SC ACHS IZABELA PRN Reason: Protocol Last Admin: 11/01/16 11:48 Dose: 4 units Lactobacillus Acidophilus (Bacid Acidophilus) 1 cap PO BID [facility] Last Admin: 11/01/16 09:48 Dose: 1 cap Levothyroxine Sodium (Synthroid) 125 mcg PO ACB [facility] Last Admin: 11/01/16 08:19 Dose: 125 mcg Nystatin (Nystop Topical Powder) 0 gm TOP DAILY [facility] Last Admin: 11/01/16 10:00 Dose: 1 applic Pantoprazole Sodium (Protonix Ec Tab) 40 mg PO 0600 [facility] Last Admin: 11/01/16 05:20 Dose: 40 mg Polysaccharide Iron Complex (Ferrex-150) 150 mg PO DAILY [facility] Last Admin: 11/01/16 09:48 Dose: 150 mg Propranolol HCl (Inderal) 10 mg PO TID [facility] Last Admin: 10/31/16 17:52 Dose: Not Given Tramadol HCl (Ultram) 50 mg PO TID PRN PRN Reason: Pain, moderate (4-7) Last Admin: 10/31/16 13:07 Dose: 50 mg - Labs Labs: 11/01/16 05:20 11/01/16 05:20 PT 12.0 Seconds (9.9-11.8) H 10/20/16 09:29 INR 1.11 (0.93-1.08) H 10/20/16 09:29 APTT 27.8 Seconds (23.7-30.8) 10/20/16 09:29 - Constitutional Appears: No Acute Distress - Head Exam Head Exam: ATRAUMATIC, NORMOCEPHALIC - Eye Exam Eye Exam: PERRL - ENT Exam ENT Exam: Mucous Membranes Moist - Respiratory Exam Respiratory Exam: Decreased Breath Sounds - Cardiovascular Exam Cardiovascular Exam: RRR, +S1, +S2. absent: Gallop, Murmur - GI/Abdominal Exam GI & Abdominal Exam: Soft, Normal Bowel Sounds. absent: Distended, Guarding Additional comments: mild TTP in epigastric area - Extremities Exam Extremities Exam: absent: Calf Tenderness, Pedal Edema - Neurological Exam Neurological Exam: Alert, Awake, Oriented x3 - Skin Skin Exam: Dry, Intact, Warm Assessment and Plan - Assessment and Plan (Free Text) Assessment: 51F with PMH CHF (EF30%), DM2, HTN, admitted to ICU for septic shock with MODS. Will f/u blood and urine cultures collected yesterday, unlikely to be fungal, f/ u B-1,3 D glucan and galactomannan. Pt's acidosis improved, HCO3 17->23 today, off bicarb drip now, C./w IVF, IV Merrem and Fluconazole per ID. Plan: Neuro : AAOx3 today. Lethargic yesterday, improved mental status this AM. Cont to monitor. CV : BP 100-125/62-82, on levophed @14, will titrate. Hx of HTN. hold anti-htn for hypotension. HX of CHF, ef 30%. Maintain MAP>65. Pulm: On NC. Saturating well. Maintain O2 sat>90% Continue with HOB elevation> 35 degrees, aspiration precautions. Extubated self yesterday. VBG shows pH 7.34, HCO3 24.8, lactate 2.1 today. On Hydrocortisone 50mg q6. Will monitor for acidosis, respiratory status since pt just off HCO3 drip. will maintain NPO in setting of re-intubation? GI: NPO. Continue with Protonix. Elevated LFTs today, likely from shock liver. Renal: Replace lytes, maintain euvolemia. Will hydrate with additional IVF. UO 350ml/ 12h. s/p 3L NS boluses yesterday. Continue to monitor. ID: T 98.2F, leukocytosis 20.5->26.9. Indwelling PICC line could be a source ( removed this AM), f/u blood and urine cultures, fungal markers. PCT 0.09. Continue with fluconazole and Merrem per ID. Lactate 5.9->2.1 today. Endo: Continue with Levemir. Maintain euglycemia. NPO. Heme: Hgb 10. Plts 324. Stable. Cont to monitor. DVT ppx - elliquis GI ppx - Protonix Pt discussed and seen with PGY2 and attending, Dr. Amador. Ariela Felipe, PGY1 <Perry COOPER,Ildamode H - Last Filed: 11/02/16 14:36> Objective - Vital Signs/Intake and Output Vital Signs (last 24 hours): Temp Pulse Resp BP Pulse Ox 97.4 F L 116 H 26 H 104/78 100 11/02/16 00:00 11/01/16 23:52 11/01/16 23:52 11/01/16 23:31 11/01/16 19:31 Intake and Output: 11/02/16 11/02/16 06:59 18:59 Intake Total 443 358 Balance 443 358 - Medications Medications: Current Medications Apixaban (Eliquis) 2.5 mg PO BID IZABELA PRN Reason: Protocol Last Admin: 11/02/16 09:23 Dose: 2.5 mg Hydrocortisone Sodium Succinate (Solu-Cortef) 50 mg IVP Q6H IZABELA Last Admin: 11/02/16 13:50 Dose: 50 mg Hydromorphone HCl (Dilaudid) 0.5 mg IVP Q4H PRN PRN Reason: Pain, moderate (4-7) Last Admin: 11/01/16 19:38 Dose: 0.5 mg Meropenem 1g/NS 100mL IVPB (Meropenem 1g/Ns 100ml Ivpb) 1 gm in 100 mls @ 100 mls/hr IVPB Q12 IZABELA PRN Reason: Protocol Stop: 11/07/16 14:26 Last Admin: 11/02/16 09:23 Dose: 100 mls/hr Fluconazole (Diflucan Iv 200 Mg/100 Ml Ns) 100 mls @ 100 mls/hr IVPB DAILY IZABELA PRN Reason: Protocol Last Admin: 11/02/16 09:23 Dose: 100 mls/hr Dobutamine HCl/Dextrose (Dobutamine/Dextrose 5% 500mg/250ml) 500 mg in 250 mls @ 11.261 mls/hr IV .[id number] PRN; Protocol; 5 MCG/KG/MIN PRN Reason: TITRATE PER PROTOCOL Last Admin: 11/02/16 11:51 Dose: 2.5 mcg/kg/min, 5.63 mls/hr Norepinephrine Bitartrate 8 mg (/ Sodium Chloride) 258 mls @ 37.53 mls/hr IV .Q6H53M IZABELA; 19.4 MCG/MIN PRN Reason: Protocol Last Titration: 11/02/16 13:51 Dose: Infused Insulin Detemir (Levemir) 20 unit SC DAILY [facility] Last Admin: 11/02/16 09:22 Dose: 20 unit Insulin Human Lispro (Humalog) 5 units SC ACHS [facility] Last Admin: 11/02/16 13:50 Dose: 5 units Insulin Human Lispro (Humalog Low) 0 units SC ACHS IZABELA PRN Reason: Protocol Last Admin: 11/02/16 13:41 Dose: Not Given Lactobacillus Acidophilus (Bacid Acidophilus) 1 cap PO BID [facility] Last Admin: 11/02/16 09:23 Dose: 1 cap Levothyroxine Sodium (Synthroid) 125 mcg PO ACB [facility] Last Admin: 11/02/16 08:58 Dose: 125 mcg Nystatin (Nystop Topical Powder) 0 gm TOP DAILY [facility] Last Admin: 11/02/16 09:24 Dose: 1 applic Pantoprazole Sodium (Protonix Ec Tab) 40 mg PO 0600 [facility] Last Admin: 11/02/16 07:02 Dose: 40 mg Polysaccharide Iron Complex (Ferrex-150) 150 mg PO DAILY [facility] Last Admin: 11/02/16 09:22 Dose: 150 mg Propranolol HCl (Inderal) 10 mg PO TID [facility] Last Admin: 10/31/16 17:52 Dose: Not Given Tramadol HCl (Ultram) 50 mg PO TID PRN PRN Reason: Pain, moderate (4-7) Last Admin: 10/31/16 13:07 Dose: 50 mg - Labs Labs: 11/02/16 05:00 11/02/16 05:45 PT 12.0 Seconds (9.9-11.8) H 10/20/16 09:29 INR 1.11 (0.93-1.08) H 10/20/16 09:29 APTT 27.8 Seconds (23.7-30.8) 10/20/16 09:29 Attending/Attestation - Attestation I have personally seen and examined this patient.: Yes I have fully participated in the care of the patient.: Yes I have reviewed all pertinent clinical information, including history, physical exam and plan: Yes Notes (Text): 11/02/16 14:29 51 y/o F w/ Sepsis of unclear source. Elevated WBC on Meropenum, consider broadening abx , D/W ID. CX result neg. Previous cx +. On Fluconazole for yeast in sputum/ urine. Levophed requirements down to 3. EF 30% Dobutamine to be restarted 2.5---> 5. To help cardiac output and forward flow. ATN/OLLIE, Creat worsening w/ decreased urine output. PH WNL. Noted to have Bicarbonate that is dropping, may need bicarbonate soon. Renal following. Pain controlled , diet to be resumed. IKE BIPAP QHS. If WBc elevated further would need further imaging in 24-48 hrs. Needs Paliative care conuslt. poor prognosis cc time 65 min
[2016-11-01] MEDS ORDERED: Sodium Chloride 0.9% 1,000 ML IV SCH (17:15)
[2016-11-01] MEDS ORDERED: Sodium Chloride 0.9% 1,000 ML IV STA (17:42)
[2016-11-01 18:20] LABS: URINE BILIRUBIN NEGATIVE (NEGATIVE); URINE BLOOD LARGE (NEGATIVE); URINE GLUCOSE (UA) NEGATIVE (NEGATIVE); URINE LEUKOCYTE ESTERASE SMALL Leu/uL (NEGATIVE); URINE NITRATE NEGATIVE (NEGATIVE); URINE PROTEIN 100 mg/dL (<30 mg/dL); URINE UROBILINOGEN 0.2 E.U./dL (<1 E.U./dL)
[2016-11-01 18:22] LABS: URINE APPEARANCE CLOUDY (CLEAR); URINE COLOR LIGHT BROWN (YELLOW)
[2016-11-01 18:34] LABS: URINE EPITHELIAL CELLS 0 - 2 /hpf (0-5); URINE RBC TNTC /hpf (0-2)
[2016-11-01 18:35] LABS: URINE BACTERIA MOD (NEG); URINE HYALINE CAST 0 - 2 /hpf
[2016-11-01] MEDS: HYDROmorphone 0.5 mg/0.5 ml ISec IVP PRN (19:38)
[2016-11-02 05:51] LABS: HEMOGLOBIN 10.7 gm/dL (12.0-16.0); MEAN CELL VOLUME 76.8 fL (80.0-105.0); MEAN CORPUSCULAR HEMOGLOBIN 25.6 pg (25.0-35.0); MEAN CORPUSCULAR HGB CONC 33.3 g/dl (31.0-37.0); MEAN PLATELET VOLUME 9.9 fl (7.0-11.0); RBC 4.18 10^6/uL (3.5-6.1); RED CELL DISTRIBUTION WIDTH 20.7 % (11.5-14.5)
[2016-11-02 05:58] LABS: WHITE BLOOD COUNT 26.8 10^3/ul (4.5-11.0)
[2016-11-02 06:30] LABS: VENOUS BLOOD GAS BASE EXCESS -7.1 mmol/L (0.0-2.0); VENOUS BLOOD GAS PO2 40 mm/Hg (30-55)
[2016-11-02 06:39] LABS: ALBUMIN 3.2 g/dL (3.0-4.8); CALCIUM 8.1 mg/dL (8.4-10.5)
[2016-11-02] MEDS: Pantoprazole 40 mg EC Tab PO SCH (07:02)
[2016-11-02 08:28] LABS: ARTERIAL BLOOD GAS HCO3 18.4 mmol/L (21-28); ARTERIAL BLOOD GAS O2 SAT 98.7 % (95-98); ARTERIAL BLOOD GAS PCO2 29 mm/Hg (35-45); ARTERIAL BLOOD GAS PH 7.41 (7.35-7.45); ARTERIAL BLOOD GAS TCO2 19.3 mmol.L (22-28)
[2016-11-02] MEDS: Insulin Lispro 1 UNITS/0.01 ML SC SCH ×4 (08:58→21:43)
[2016-11-02] MEDS: Levothyroxine 125 MCG TAB PO SCH (08:58)
--- NOTE | 2016-11-02 09:05 | RAD ---
HISTORY: intubated COMPARISON: 11/01/2016 FINDINGS: LUNGS: Bibasilar infiltrates and pleural effusions unchanged. Improved vascular congestion PLEURA: As above CARDIOVASCULAR: Mild cardiomegaly OSSEOUS STRUCTURES: No significant abnormalities. VISUALIZED UPPER ABDOMEN: Normal. OTHER FINDINGS: None. IMPRESSION: Bibasilar infiltrates and pleural effusions unchanged. Improved vascular congestion
[2016-11-02] MEDS: Insulin Lispro (humaLOG) LOW Coverage SC SCH ×4 (09:08→22:11)
[2016-11-02] MEDS: Insulin Detemir 100 units/ml Vial (Levemir) SC SCH (09:22)
[2016-11-02] MEDS: Iron Complex Polysacch 150mg Cap PO SCH (09:22)
[2016-11-02] MEDS: Meropenem 1g/NS 100mL IVPB 1 GM/100 ML PIGGYBACK IVPB SCH (09:23)
[2016-11-02] MEDS: Lactobacillus Acidophilus 500 MU Cap PO SCH ×2 (09:23→17:00)
[2016-11-02] MEDS: Fluconazole IV 200mg/100 ml NS 100 ML IVPB SCH (09:23)
[2016-11-02] MEDS: Nystatin 100,000 Units/gm Topical Pow(15 gm) TOP SCH (09:24)
[2016-11-02] MEDS: DOBUTamine 500mg/250ml D5W 500 MG/250 ML BAG IV PRN (11:51)
--- NOTE | 2016-11-02 13:06 | CP.PCM.PN ---
<SAROJ HOLCOMB - Last Filed: 11/02/16 13:01> Subjective - Date & Time of Evaluation Date of Evaluation: 11/02/16 Time of Evaluation: 09:00 - Subjective Subjective: patient was seen and examined bedside. states that the pain in her abdomen has improved and that the swelling has also improved. also states that the discomfort in her pelvic area has improved. pt denies sob, cp, palpitations, weakness, dizziness, headaches or fevers. Objective - Vital Signs/Intake and Output Vital Signs (last 24 hours): Temp Pulse Resp BP Pulse Ox 97.4 F L 116 H 26 H 104/78 100 11/02/16 00:00 11/01/16 23:52 11/01/16 23:52 11/01/16 23:31 11/01/16 19:31 Intake and Output: 11/02/16 11/02/16 06:59 18:59 Intake Total 443 206 Balance 443 206 - Medications Medications: Current Medications Apixaban (Eliquis) 2.5 mg PO BID IZABELA PRN Reason: Protocol Last Admin: 11/02/16 09:23 Dose: 2.5 mg Hydrocortisone Sodium Succinate (Solu-Cortef) 50 mg IVP Q6H IZABELA Last Admin: 11/02/16 08:58 Dose: 50 mg Hydromorphone HCl (Dilaudid) 0.5 mg IVP Q4H PRN PRN Reason: Pain, moderate (4-7) Last Admin: 11/01/16 19:38 Dose: 0.5 mg Meropenem 1g/NS 100mL IVPB (Meropenem 1g/Ns 100ml Ivpb) 1 gm in 100 mls @ 100 mls/hr IVPB Q12 IZABELA PRN Reason: Protocol Stop: 11/07/16 14:26 Last Admin: 11/02/16 09:23 Dose: 100 mls/hr Fluconazole (Diflucan Iv 200 Mg/100 Ml Ns) 100 mls @ 100 mls/hr IVPB DAILY IZABELA PRN Reason: Protocol Last Admin: 11/02/16 09:23 Dose: 100 mls/hr Dobutamine HCl/Dextrose (Dobutamine/Dextrose 5% 500mg/250ml) 500 mg in 250 mls @ 11.261 mls/hr IV .[id number] PRN; Protocol; 5 MCG/KG/MIN PRN Reason: TITRATE PER PROTOCOL Last Admin: 11/02/16 11:51 Dose: 2.5 mcg/kg/min, 5.63 mls/hr Norepinephrine Bitartrate 8 mg (/ Sodium Chloride) 258 mls @ 37.53 mls/hr IV .Q6H53M IZABELA; 19.4 MCG/MIN PRN Reason: Protocol Last Titration: 11/02/16 08:45 Dose: 3 mcg/min, 5.8 mls/hr Insulin Detemir (Levemir) 20 unit SC DAILY [facility] Last Admin: 11/02/16 09:22 Dose: 20 unit Insulin Human Lispro (Humalog) 5 units SC ACHS [facility] Last Admin: 11/02/16 08:58 Dose: 5 units Insulin Human Lispro (Humalog Low) 0 units SC ACHS IZABELA PRN Reason: Protocol Last Admin: 11/02/16 09:08 Dose: Not Given Lactobacillus Acidophilus (Bacid Acidophilus) 1 cap PO BID [facility] Last Admin: 11/02/16 09:23 Dose: 1 cap Levothyroxine Sodium (Synthroid) 125 mcg PO ACB [facility] Last Admin: 11/02/16 08:58 Dose: 125 mcg Nystatin (Nystop Topical Powder) 0 gm TOP DAILY [facility] Last Admin: 11/02/16 09:24 Dose: 1 applic Pantoprazole Sodium (Protonix Ec Tab) 40 mg PO 0600 [facility] Last Admin: 11/02/16 07:02 Dose: 40 mg Polysaccharide Iron Complex (Ferrex-150) 150 mg PO DAILY [facility] Last Admin: 11/02/16 09:22 Dose: 150 mg Propranolol HCl (Inderal) 10 mg PO TID [facility] Last Admin: 10/31/16 17:52 Dose: Not Given Tramadol HCl (Ultram) 50 mg PO TID PRN PRN Reason: Pain, moderate (4-7) Last Admin: 10/31/16 13:07 Dose: 50 mg - Labs Labs: 11/02/16 05:00 11/02/16 05:45 PT 12.0 Seconds (9.9-11.8) H 10/20/16 09:29 INR 1.11 (0.93-1.08) H 10/20/16 09:29 APTT 27.8 Seconds (23.7-30.8) 10/20/16 09:29 - Additional Findings Additional findings: - Constitutional Appears: Non-toxic, No Acute Distress, Chronically Ill - Head Exam Head Exam: ATRAUMATIC, NORMAL INSPECTION, NORMOCEPHALIC - Eye Exam Eye Exam: EOMI, Normal appearance, Periorbital swelling, PERRL. absent: Nystagmus, Scleral icterus Additional comments: face and eyes are swollen - ENT Exam ENT Exam: Mucous Membranes Moist, Normal Exam - Neck Exam Neck Exam: Normal Inspection Additional comments: R IJ in place - Respiratory Exam Respiratory Exam: Rales, NORMAL BREATHING PATTERN. absent: Accessory Muscle Use , Chest Wall Tenderness, Rhonchi, Wheezes, Respiratory Distress, Stridor Additional comments: breath sounds are improved from prior exams - Cardiovascular Exam Cardiovascular Exam: RRR, +S1, +S2. absent: Diastolic murmur, Gallop, JVD, Rubs , Murmur - GI/Abdominal Exam GI & Abdominal Exam: Soft, Normal Bowel Sounds. absent: Distended, Guarding, Tenderness, Organomegaly, Rebound Additional comments: obese - Extremities Exam Extremities Exam: Pedal Edema (3+, up to thighs). absent: Tenderness - Neurological Exam Neurological Exam: Alert, Awake, Oriented x3 (person, place, time and president) - Psychiatric Exam Psychiatric exam: Normal Affect, Normal Mood - Skin Skin Exam: Normal Color, Rash (inner thigh rash noted to be covered with nystatin powder ), Warm. absent: Cyanosis, Diaphoretic - Additional Findings Additional findings: R IJ in place LUE PICC in place Pickens in place, showing ~100cc of dark urine with sediments Assessment and Plan - Assessment and Plan (Free Text) Plan: 51 y/o female with PMHx of DM2, CHF (EF 30% in 10/2016), HTN, chronic pulmonary effusion, HTN, DVT, PE, hypothyroidism, PSH of lap mitchell in 05/2016 and psych hx of schizophrenia and Bipolar disorder presented to the ED with complaints of abdominal pain. Patient was extubated on 10/15, and is on tele for closer monitoring. HHS improved, pt extubated and in NAD, decreasing anasarca. s/p 7 days of Doxycycline and 6 days of Meronepem. Pt was in severe septic shock and was transferred to ICU. Pt was intubated due to acidosis and self-extubated on day 1 ICU. Currently ICU day 3 and pressors x3d. 1. Septic shock, likely a/w cardiogenic cause - Leukocytosis possibly due to Solu-Cortef, r/o infectious causes - Lactate 3.3 stable - hypothermia improved - hypotension improving on Dobutamine 2.5mcg/kg/min (decreased), and Norepinephrine 3 mcg/min (decreased) - Meropenem 1gm Q12 for empiric treatment (day3) - cardio consulted, recs appreciated - CXR shows bibasilar infiltrates and pleural effusions unchanged from prior scan, with improved vascular congestion. 2. Anasarca - secondary to CHF and fluids for shock - pain likely due to edema - pain control: dilaudid 0.5 PRN, tramadol PRN - Pulm consulted, recs appreciated - daily weight: 177lbs - I/O? unreliable reads despite pickens - fluid restriction - ECHO (10/18): EF 30% 3. Metabolic acidosis resolved - ABG improved pH 7.41 4. OLLIE likely due to shock (prerenal) - monitor I/O - hold diuretics until sepsis resolves, per nephro - nephro consulted, recs appreciated 5. UTI - UCx showing no growth after 24hrs - Fluconazole 100mls daily and continue Nystatin powder for therapeutic treatment of vaginitis - pickens in place - UCx 10/19 growing VRE (contact precautions) - ID consulted, recs appreciated 6. Hyponatremia resolved 7. DM2, HONK resolved - continue Levemir 20u, Lispro 5u, and ISS 8. Hypothyroid - Synthroid 125mcg PO Dispo: TCU once patient is stable PTX/Eliquis Patient was seen, discussed and evaluated with attending, Dr. Perry Holcomb, PGY1 <Annmarie Amador - Last Filed: 11/02/16 16:56> Objective - Vital Signs/Intake and Output Vital Signs (last 24 hours): Temp Pulse Resp BP Pulse Ox 96 F L 95 H 20 95/56 L 100 11/02/16 16:00 11/02/16 15:59 11/02/16 15:59 11/02/16 16:00 11/01/16 19:31 Intake and Output: 11/02/16 11/02/16 06:59 18:59 Intake Total 443 718 Balance 443 718 - Medications Medications: Current Medications Apixaban (Eliquis) 2.5 mg PO BID IZABELA PRN Reason: Protocol Last Admin: 11/02/16 09:23 Dose: 2.5 mg Hydrocortisone Sodium Succinate (Solu-Cortef) 50 mg IVP Q6H IZABELA Last Admin: 11/02/16 13:50 Dose: 50 mg Hydromorphone HCl (Dilaudid) 0.5 mg IVP Q4H PRN PRN Reason: Pain, moderate (4-7) Last Admin: 11/01/16 19:38 Dose: 0.5 mg Meropenem 1g/NS 100mL IVPB (Meropenem 1g/Ns 100ml Ivpb) 1 gm in 100 mls @ 100 mls/hr IVPB Q12 IZABELA PRN Reason: Protocol Stop: 11/07/16 14:26 Last Admin: 11/02/16 09:23 Dose: 100 mls/hr Fluconazole (Diflucan Iv 200 Mg/100 Ml Ns) 100 mls @ 100 mls/hr IVPB DAILY IZABELA PRN Reason: Protocol Last Admin: 11/02/16 09:23 Dose: 100 mls/hr Dobutamine HCl/Dextrose (Dobutamine/Dextrose 5% 500mg/250ml) 500 mg in 250 mls @ 11.261 mls/hr IV .[id number] PRN; Protocol; 5 MCG/KG/MIN PRN Reason: TITRATE PER PROTOCOL Last Admin: 11/02/16 11:51 Dose: 2.5 mcg/kg/min, 5.63 mls/hr Norepinephrine Bitartrate 8 mg (/ Sodium Chloride) 258 mls @ 37.53 mls/hr IV .Q6H53M IZABELA; 19.4 MCG/MIN PRN Reason: Protocol Last Titration: 11/02/16 13:51 Dose: Infused Insulin Detemir (Levemir) 20 unit SC DAILY [facility] Last Admin: 11/02/16 09:22 Dose: 20 unit Insulin Human Lispro (Humalog) 5 units SC ACHS [facility] Last Admin: 11/02/16 13:50 Dose: 5 units Insulin Human Lispro (Humalog Low) 0 units SC ACHS IZABELA PRN Reason: Protocol Last Admin: 11/02/16 13:41 Dose: Not Given Lactobacillus Acidophilus (Bacid Acidophilus) 1 cap PO BID [facility] Last Admin: 11/02/16 09:23 Dose: 1 cap Levothyroxine Sodium (Synthroid) 125 mcg PO ACB [facility] Last Admin: 11/02/16 08:58 Dose: 125 mcg Nystatin (Nystop Topical Powder) 0 gm TOP DAILY [facility] Last Admin: 11/02/16 09:24 Dose: 1 applic Pantoprazole Sodium (Protonix Ec Tab) 40 mg PO 0600 [facility] Last Admin: 11/02/16 07:02 Dose: 40 mg Polysaccharide Iron Complex (Ferrex-150) 150 mg PO DAILY [facility] Last Admin: 11/02/16 09:22 Dose: 150 mg Propranolol HCl (Inderal) 10 mg PO TID [facility] Last Admin: 10/31/16 17:52 Dose: Not Given Tramadol HCl (Ultram) 50 mg PO TID PRN PRN Reason: Pain, moderate (4-7) Last Admin: 10/31/16 13:07 Dose: 50 mg - Labs Labs: 11/02/16 05:00 11/02/16 05:45 PT 12.0 Seconds (9.9-11.8) H 10/20/16 09:29 INR 1.11 (0.93-1.08) H 10/20/16 09:29 APTT 27.8 Seconds (23.7-30.8) 10/20/16 09:29 Attending/Attestation - Attestation I have personally seen and examined this patient.: Yes I have fully participated in the care of the patient.: Yes I have reviewed all pertinent clinical information, including history, physical exam and plan: Yes Notes (Text): I have seen and examined patient at bedside. Agree with the above note with the following additions/ exceptions: Briefly this is 51 year old female with history of DM-2, CHF(EF~30%), HTN, chronic pulmonary effusion, HTN, DVT, PE on eliquis, hypothyroidism, schizophrenia and Bipolar disorder who presented initially with HONK which has resolved and sepsis. Hospitalization was complicated with persistent sepsis, OLLIE, transaminitis, hyponatremia and ansarca secondary to cardiorenal etiology. Code sepsis was called 2 days ago due to persistent hypotension, hypothermia and lactic acidosis. Patient was transferred to ICU .She was intubated and self extubated herself . Patient is AAO x3. Reports improvement in abdominal pain and denies any complaints. She is off of levophed. Dobutamine was started today. Continue stress dose of steroids, meropenem and diflucan. Patient was given 1 dose of vanco. Continue nystatin powder. Patient remains full code. PT recommended MITCH. Upon discharge patient will follow up with Dr Roman. Dr Annmarie Amador
--- NOTE | 2016-11-02 14:26 | CP.PCM.PN ---
<ARIELA RICO - Last Filed: 11/02/16 14:43> Subjective - Date & Time of Evaluation Date of Evaluation: 11/02/16 Time of Evaluation: 09:40 - Subjective Subjective: Ariela Rico, PGY1, ICU Progress Note: Pt seen and examined at bedside. Pt received bipap overnight for sleep apnea. Requiring Levophed from 13->16mcg, sitting in chair, AAOx3. Denies h/a, sob, cp , abdominal, n/v/d. Pt states that she is hungry. Objective - Vital Signs/Intake and Output Vital Signs (last 24 hours): Temp Pulse Resp BP Pulse Ox 97.4 F L 116 H 26 H 104/78 100 11/02/16 00:00 11/01/16 23:52 11/01/16 23:52 11/01/16 23:31 11/01/16 19:31 Intake and Output: 11/02/16 11/02/16 06:59 18:59 Intake Total 443 358 Balance 443 358 - Medications Medications: Current Medications Apixaban (Eliquis) 2.5 mg PO BID IZABELA PRN Reason: Protocol Last Admin: 11/02/16 09:23 Dose: 2.5 mg Hydrocortisone Sodium Succinate (Solu-Cortef) 50 mg IVP Q6H IZABELA Last Admin: 11/02/16 13:50 Dose: 50 mg Hydromorphone HCl (Dilaudid) 0.5 mg IVP Q4H PRN PRN Reason: Pain, moderate (4-7) Last Admin: 11/01/16 19:38 Dose: 0.5 mg Meropenem 1g/NS 100mL IVPB (Meropenem 1g/Ns 100ml Ivpb) 1 gm in 100 mls @ 100 mls/hr IVPB Q12 IZABELA PRN Reason: Protocol Stop: 11/07/16 14:26 Last Admin: 11/02/16 09:23 Dose: 100 mls/hr Fluconazole (Diflucan Iv 200 Mg/100 Ml Ns) 100 mls @ 100 mls/hr IVPB DAILY IZABELA PRN Reason: Protocol Last Admin: 11/02/16 09:23 Dose: 100 mls/hr Dobutamine HCl/Dextrose (Dobutamine/Dextrose 5% 500mg/250ml) 500 mg in 250 mls @ 11.261 mls/hr IV .[id number] PRN; Protocol; 5 MCG/KG/MIN PRN Reason: TITRATE PER PROTOCOL Last Admin: 11/02/16 11:51 Dose: 2.5 mcg/kg/min, 5.63 mls/hr Norepinephrine Bitartrate 8 mg (/ Sodium Chloride) 258 mls @ 37.53 mls/hr IV .Q6H53M IZABELA; 19.4 MCG/MIN PRN Reason: Protocol Last Titration: 11/02/16 13:51 Dose: Infused Insulin Detemir (Levemir) 20 unit SC DAILY [facility] Last Admin: 11/02/16 09:22 Dose: 20 unit Insulin Human Lispro (Humalog) 5 units SC ACHS [facility] Last Admin: 11/02/16 13:50 Dose: 5 units Insulin Human Lispro (Humalog Low) 0 units SC ACHS IZABELA PRN Reason: Protocol Last Admin: 11/02/16 13:41 Dose: Not Given Lactobacillus Acidophilus (Bacid Acidophilus) 1 cap PO BID [facility] Last Admin: 11/02/16 09:23 Dose: 1 cap Levothyroxine Sodium (Synthroid) 125 mcg PO ACB [facility] Last Admin: 11/02/16 08:58 Dose: 125 mcg Nystatin (Nystop Topical Powder) 0 gm TOP DAILY [facility] Last Admin: 11/02/16 09:24 Dose: 1 applic Pantoprazole Sodium (Protonix Ec Tab) 40 mg PO 0600 [facility] Last Admin: 11/02/16 07:02 Dose: 40 mg Polysaccharide Iron Complex (Ferrex-150) 150 mg PO DAILY [facility] Last Admin: 11/02/16 09:22 Dose: 150 mg Propranolol HCl (Inderal) 10 mg PO TID [facility] Last Admin: 10/31/16 17:52 Dose: Not Given Tramadol HCl (Ultram) 50 mg PO TID PRN PRN Reason: Pain, moderate (4-7) Last Admin: 10/31/16 13:07 Dose: 50 mg - Labs Labs: 11/02/16 05:00 11/02/16 05:45 PT 12.0 Seconds (9.9-11.8) H 10/20/16 09:29 INR 1.11 (0.93-1.08) H 10/20/16 09:29 APTT 27.8 Seconds (23.7-30.8) 10/20/16 09:29 - Constitutional Appears: No Acute Distress - Head Exam Head Exam: ATRAUMATIC, NORMOCEPHALIC - Eye Exam Eye Exam: PERRL - ENT Exam ENT Exam: Mucous Membranes Moist - Respiratory Exam Respiratory Exam: Decreased Breath Sounds Additional comments: basilar crackles. - Cardiovascular Exam Cardiovascular Exam: Tachycardia, +S1, +S2 - GI/Abdominal Exam GI & Abdominal Exam: Soft, Normal Bowel Sounds. absent: Distended, Tenderness Additional comments: rounded, obese - Extremities Exam Additional comments: Anasarca.+2-3 edema in BLE and UE. - Neurological Exam Neurological Exam: Alert, Awake, Oriented x3 - Skin Skin Exam: Dry, Warm Additional comments: anasarca Assessment and Plan - Assessment and Plan (Free Text) Assessment: 51F with PMH CHF (EF30%), DM2, HTN, admitted to ICU for septic shock with MODS. Blood and urine cultures have been NTD so far, will f/u finalized cxs. Pt still has persistent leukocytosis, worsening OLLIE, decreasing UO, worsening transaminitis, and metabolic acidosis. Pt on Merrem and Fluconazole per ID, will consider adding additional Gram pos coverage (will confirm with ID). Pt weaned off Levophed this AM, will start sobutamine @ 2.5 mcg/h to increase CO and increase UO. Plan: Neuro : AAOx3 today. Lethargic 10/31. Cont to monitor. CV : MAP 73-84. Off Levophed, start Dobutamine @ 2.5 mcg/h for maintenance of BP, increasing CO and renal output. Hx of HTN. hold anti-htn for hypotension. HX of CHF, ef 30%. Maintain MAP>65. Pulm: On NC. Saturating well. Maintain O2 sat>90% Continue with HOB elevation> 35 degrees, aspiration precautions. Extubated self 10/31. ABG shows pH 7.41, 29, 18.4, 95 on 40% FiO2. metabolic acidosis with resp compensation. Lactate 2.7. On Hydrocortisone 50mg q6. on nighttime bipap for sleep apnea. GI: Bedside swallow. Start soft diet. Continue with Protonix. Elevated LFTs, likely from shock liver. cont to monitor. Renal: Replace lytes, maintain euvolemia. Will hydrate with additional IVF. UO 100ml/ 12h. Spoke with Dr. French (nephro). Agrees with dobutamine drip. will give prn boluses for BP. s/p 3L NS boluses 10/31. Continue to monitor. ID: afebrile, persistent leukocytosis 26.8. Indwelling PICC line could be a source (removed 11/01), Blood and urine Cx NTD, f/u finalized culture. f/u fungal markers. PCT 0.09. Continue with fluconazole and Merrem per ID. will add vanco or linezolid - discuss with ID. Lactate 2.3 today. Endo: Continue with Levemir. Maintain euglycemia. NPO. Heme: Stable. Cont to monitor. DVT ppx - elliquis GI ppx - Protonix Pt discussed and seen with PGY2 and attending, Dr. Amador. rAiela Rico, PGY1 <Perry COOPER,[facility] - Last Filed: 11/02/16 19:29> Objective - Vital Signs/Intake and Output Vital Signs (last 24 hours): Temp Pulse Resp BP Pulse Ox 96 F L 84 15 97/57 L 100 11/02/16 16:00 11/02/16 18:00 11/02/16 18:00 11/02/16 18:00 11/02/16 18:00 Intake and Output: 11/02/16 11/03/16 18:59 06:59 Intake Total 1616 Output Total 435 Balance 1181 - Medications Medications: Current Medications Apixaban (Eliquis) 2.5 mg PO BID IZABELA PRN Reason: Protocol Last Admin: 11/02/16 17:01 Dose: 2.5 mg Hydromorphone HCl (Dilaudid) 0.5 mg IVP Q4H PRN PRN Reason: Pain, moderate (4-7) Last Admin: 11/01/16 19:38 Dose: 0.5 mg Meropenem 1g/NS 100mL IVPB (Meropenem 1g/Ns 100ml Ivpb) 1 gm in 100 mls @ 100 mls/hr IVPB Q12 IZABELA PRN Reason: Protocol Stop: 11/07/16 14:26 Last Admin: 11/02/16 09:23 Dose: 100 mls/hr Fluconazole (Diflucan Iv 200 Mg/100 Ml Ns) 100 mls @ 100 mls/hr IVPB DAILY IZABELA PRN Reason: Protocol Last Admin: 11/02/16 09:23 Dose: 100 mls/hr Dobutamine HCl/Dextrose (Dobutamine/Dextrose 5% 500mg/250ml) 500 mg in 250 mls @ 11.261 mls/hr IV .[id number] PRN; Protocol; 5 MCG/KG/MIN PRN Reason: TITRATE PER PROTOCOL Last Admin: 11/02/16 11:51 Dose: 2.5 mcg/kg/min, 5.63 mls/hr Norepinephrine Bitartrate 8 mg (/ Sodium Chloride) 258 mls @ 37.53 mls/hr IV .Q6H53M IZABELA; 19.4 MCG/MIN PRN Reason: Protocol Last Titration: 11/02/16 13:51 Dose: Infused Insulin Detemir (Levemir) 20 unit SC DAILY [facility] Last Admin: 11/02/16 09:22 Dose: 20 unit Insulin Human Lispro (Humalog) 5 units SC ACHS [facility] Last Admin: 11/02/16 17:01 Dose: 5 units Insulin Human Lispro (Humalog Low) 0 units SC ACHS [facility] PRN Reason: Protocol Last Admin: 11/02/16 17:03 Dose: 3 units Lactobacillus Acidophilus (Bacid Acidophilus) 1 cap PO BID [facility] Last Admin: 11/02/16 17:00 Dose: 1 cap Levothyroxine Sodium (Synthroid) 125 mcg PO ACB [facility] Last Admin: 11/02/16 08:58 Dose: 125 mcg Nystatin (Nystop Topical Powder) 0 gm TOP DAILY [facility] Last Admin: 11/02/16 09:24 Dose: 1 applic Pantoprazole Sodium (Protonix Ec Tab) 40 mg PO 0600 [facility] Last Admin: 11/02/16 07:02 Dose: 40 mg Polysaccharide Iron Complex (Ferrex-150) 150 mg PO DAILY [facility] Last Admin: 11/02/16 09:22 Dose: 150 mg Propranolol HCl (Inderal) 10 mg PO TID [facility] Last Admin: 10/31/16 17:52 Dose: Not Given Tramadol HCl (Ultram) 50 mg PO TID PRN PRN Reason: Pain, moderate (4-7) Last Admin: 10/31/16 13:07 Dose: 50 mg - Labs Labs: 11/02/16 05:00 11/02/16 05:45 PT 12.0 Seconds (9.9-11.8) H 10/20/16 09:29 INR 1.11 (0.93-1.08) H 10/20/16 09:29 APTT 27.8 Seconds (23.7-30.8) 10/20/16 09:29 Attending/Attestation - Attestation I have personally seen and examined this patient.: Yes I have fully participated in the care of the patient.: Yes I have reviewed all pertinent clinical information, including history, physical exam and plan: Yes Notes (Text): 11/02/16 19:27 51 y/o F w/ Septic SHock w/ elevated WBC unknown source Levophed titrated off with MAP>60. EF 25-30% on Dobutamine to help urine output and contractility. On empiric abx per ID, CX negative thus far. MDR poly infection noted. Resp failure improving since extubation. Resolving RLL PNA. ON 3 L. R Pleural effusion . R sided effusion could be parapneumonic and may need repeat CT and/ or Thoracentesis. dvtp ppi cc time72 min
[2016-11-02] MEDS ORDERED: Sodium Chloride 0.9% 2,000 ML IV STA (18:53)
--- NOTE | 2016-11-02 19:56 | CP.PCM.PN ---
Subjective - Date & Time of Evaluation Date of Evaluation: 11/02/16 Time of Evaluation: 11:00 - Subjective Subjective: Patient reporting breathing improved; not eating much; Objective - Vital Signs/Intake and Output Vital Signs (last 24 hours): Temp Pulse Resp BP Pulse Ox 96 F L 84 15 97/57 L 100 11/02/16 16:00 11/02/16 18:00 11/02/16 18:00 11/02/16 18:00 11/02/16 18:00 Intake and Output: 11/02/16 11/03/16 18:59 06:59 Intake Total 1616 Output Total 435 Balance 1181 - Medications Medications: Current Medications Apixaban (Eliquis) 2.5 mg PO BID [facility] PRN Reason: Protocol Last Admin: 11/02/16 17:01 Dose: 2.5 mg Hydromorphone HCl (Dilaudid) 0.5 mg IVP Q4H PRN PRN Reason: Pain, moderate (4-7) Last Admin: 11/01/16 19:38 Dose: 0.5 mg Meropenem 1g/NS 100mL IVPB (Meropenem 1g/Ns 100ml Ivpb) 1 gm in 100 mls @ 100 mls/hr IVPB Q12 [facility] PRN Reason: Protocol Stop: 11/07/16 14:26 Last Admin: 11/02/16 09:23 Dose: 100 mls/hr Fluconazole (Diflucan Iv 200 Mg/100 Ml Ns) 100 mls @ 100 mls/hr IVPB DAILY [facility] PRN Reason: Protocol Last Admin: 11/02/16 09:23 Dose: 100 mls/hr Dobutamine HCl/Dextrose (Dobutamine/Dextrose 5% 500mg/250ml) 500 mg in 250 mls @ 11.261 mls/hr IV .[id number] PRN; Protocol; 5 MCG/KG/MIN PRN Reason: TITRATE PER PROTOCOL Last Admin: 11/02/16 11:51 Dose: 2.5 mcg/kg/min, 5.63 mls/hr Norepinephrine Bitartrate 8 mg (/ Sodium Chloride) 258 mls @ 37.53 mls/hr IV .Q6H53M IZABELA; 19.4 MCG/MIN PRN Reason: Protocol Last Titration: 11/02/16 13:51 Dose: Infused Insulin Detemir (Levemir) 20 unit SC DAILY [facility] Last Admin: 11/02/16 09:22 Dose: 20 unit Insulin Human Lispro (Humalog) 5 units SC ACHS [facility] Last Admin: 11/02/16 17:01 Dose: 5 units Insulin Human Lispro (Humalog Low) 0 units SC ACHS [facility] PRN Reason: Protocol Last Admin: 11/02/16 17:03 Dose: 3 units Lactobacillus Acidophilus (Bacid Acidophilus) 1 cap PO BID [facility] Last Admin: 11/02/16 17:00 Dose: 1 cap Levothyroxine Sodium (Synthroid) 125 mcg PO ACB [facility] Last Admin: 11/02/16 08:58 Dose: 125 mcg Nystatin (Nystop Topical Powder) 0 gm TOP DAILY [facility] Last Admin: 11/02/16 09:24 Dose: 1 applic Pantoprazole Sodium (Protonix Ec Tab) 40 mg PO 0600 [facility] Last Admin: 11/02/16 07:02 Dose: 40 mg Polysaccharide Iron Complex (Ferrex-150) 150 mg PO DAILY [facility] Last Admin: 11/02/16 09:22 Dose: 150 mg Propranolol HCl (Inderal) 10 mg PO TID [facility] Last Admin: 10/31/16 17:52 Dose: Not Given Tramadol HCl (Ultram) 50 mg PO TID PRN PRN Reason: Pain, moderate (4-7) Last Admin: 10/31/16 13:07 Dose: 50 mg - Labs Labs: 11/02/16 05:00 11/02/16 05:45 PT 12.0 Seconds (9.9-11.8) H 10/20/16 09:29 INR 1.11 (0.93-1.08) H 10/20/16 09:29 APTT 27.8 Seconds (23.7-30.8) 10/20/16 09:29 - Constitutional Appears: Non-toxic, In Acute Distress - Head Exam Head Exam: NORMOCEPHALIC - Eye Exam Eye Exam: Normal appearance - ENT Exam ENT Exam: Mucous Membranes Moist - Respiratory Exam Respiratory Exam: absent: Rales, Rhonchi, Wheezes Additional comments: Decreased breath sounds; - Cardiovascular Exam Cardiovascular Exam: REGULAR RHYTHM. absent: Gallop - GI/Abdominal Exam GI & Abdominal Exam: Distended, Soft. absent: Tenderness - Exam Additional comments: pickens in place; - Extremities Exam Additional comments: Markedly edematous legs, anasarca; - Neurological Exam Neurological Exam: Alert, Awake - Psychiatric Exam Psychiatric exam: Normal Mood - Skin Skin Exam: Normal Color, Warm. absent: Cyanosis Assessment and Plan (1) Shock Assessment & Plan: Hemodynamically much improved, on minimal vasopressor support; still unclear etiology but with marked leukocytosis is being treated as sepsis; on meropenem 1 g q12h, correctly dosed for CrCl 10-25 mL/min; Status: Acute (2) Acute renal failure Assessment & Plan: Pre-renal etiology in the setting of severely decompensated systolic CHF; serum creatinine relatively stable; agree with restarting inotropic support; once sepsis is stabilized, need to start diuresis to decrease venous congestion for treatment of cardiorenal syndrome; Status: Acute (3) Hyponatremia Assessment & Plan: Improved with intravascular volume expansion in the setting of septic shock; monitor; will consider tolvaptan again once hemodynamically stable; Status: Acute (4) CHF (congestive heart failure) Assessment & Plan: Severe decompensated systolic CHF; in the setting of severe MR; was benefitting from inotropic support and aggressive diuresis prior to going into presumed septic shock; recs as above; Status: Acute (5) Metabolic acidosis Assessment & Plan: Lactic acidosis improved with sepsis treatment, continue; Status: Acute (6) Anemia Assessment & Plan: Hgb relatively stable; continue PO iron; Status: Acute
--- NOTE | 2016-11-02 21:19 | PN ---
DATE: 11/02/2016 SUBJECTIVE: The patient was seen earlier this morning in the ICU 129, bed 5. She has periods of confusion. She does not know whom she is and where she is. She is not quite sure what year it is. PHYSICAL EXAMINATION VITAL SIGNS: Temperature is 97, heart rate of 107, blood pressure is 97/50 and respiratory rate of 18. HEENT: Unremarkable. NECK: Supple. LUNGS: Decreased breath sounds. HEART: Normal S1 and S2. ABDOMEN: Soft and nontender. LABORATORY DATA: Reveal the patient to have a white count of 26,800, hemoglobin of 10 and platelets of 352. The patient has 87% neutrophils and 4% bandemia. Coagulation is noted and BUN of 77 and creatinine of 2.6. LFTs are elevated with an alkaline phosphatase of 609, AST is 563, which is higher than previously, ALT of 521, which is higher than previously, yesterday it was 341 and an alkaline phosphatase of 609, which is also higher. Urinalysis is noted. Pleural fluid is noted. Hepatitis profile is negative. Urine Legionella antigen is negative. Microbiology reveals the urine culture is negative. Blood cultures are negative. Urine culture from the reveals yeast. Stool for C. diff from the , negative antigen and negative toxin. Review of orders, the patient is on fluconazole and meropenem. Review of reports reveals cardiac catheterization report is noted. Dr. Yaron Amador's note is reviewed. Review of the medications also reveals the patient to be on Levophed and the patient was on Solu-Cortef up to 50 mg q. 6 up to yesterday, day before. ASSESSMENT AND PLAN: This is a 51-year-old who was seen earlier this morning in the ICU with systemic inflammatory response syndrome who is status post severe sepsis, hypoxic event, vent-dependent respiratory failure, bilateral lower extremity healthcare associated pneumonia, hyperglycemic hyperosmolar state, acute pancreatitis and the patient now with systemic inflammatory response syndrome, was on Solu-Cortex up to 2 days ago, which may explain the leukocytosis. The patient's LFTs are increasing and the patient did have a CAT scan of the abdomen on the . The patient does have anasarca. The patient does not have a gallbladder, no evidence of collection or intraabdominal source. A chest x-ray from the , which revealed venous congestion and chest x-ray from today, which revealed bibasilar infiltrates. We will order repeat procalcitonin. The procalcitonin on the 24 was 0.09 and we will discontinue Diflucan. Review of the urinalysis reveals the patient has 10 to 15 wbc's in the urine and urine culture had yeast from now has no growth and probable no evidence of yeast infection colonized and trace of increasing LFTs most likely secondary to Diflucan. We will discontinue Diflucan. Follow the LFTs closely in this patient, check the repeat procalcitonin and the patient has a creatinine of 2.6. We will change the dosing of the meropenem, day #3, with worsening of creatinine. Overall prognosis is quite poor. We will follow with you. Yehuda Valentino MD
[2016-11-02] MEDS: Meropenem 500 MG in Sodium Chloride 0.9% 100 ML IVPB SCH (21:43)
[2016-11-02] MEDS: HYDROmorphone 0.5 mg/0.5 ml ISec IVP PRN (22:59)
[2016-11-03 05:35] LABS: ARTERIAL BLOOD GAS HCO3 23.3 mmol/L (21-28); ARTERIAL BLOOD GAS O2 SAT 93.6 % (95-98); ARTERIAL BLOOD GAS PCO2 32 mm/Hg (35-45); ARTERIAL BLOOD GAS PH 7.47 (7.35-7.45); ARTERIAL BLOOD GAS TCO2 24.3 mmol.L (22-28)
[2016-11-03] MEDS: Meropenem 500 MG in Sodium Chloride 0.9% 100 ML IVPB SCH ×3 (05:49→22:11)
[2016-11-03] MEDS: Pantoprazole 40 mg EC Tab PO SCH (05:50)
[2016-11-03] MEDS: DOBUTamine 500mg/250ml D5W 500 MG/250 ML BAG IV PRN ×2 (07:00→18:32)
[2016-11-03 07:21] LABS: BASO # 0.02 K/mm3 (0.0-2.0); BASO % 0.1 % (0.0-3.0); GRAN # 14.78 (1.4-6.5); GRAN % 76.1 % (50.0-68.0); HEMOGLOBIN 9.2 gm/dL (12.0-16.0); LYMPH # 3.2 (1.2-3.4); LYMPH % 16.3 % (22.0-35.0); MEAN CORPUSCULAR HEMOGLOBIN 25.1 pg (25.0-35.0); MEAN CORPUSCULAR HGB CONC 33.1 g/dl (31.0-37.0); MEAN PLATELET VOLUME 9.9 fl (7.0-11.0); MONO # 1.5 (0.1-0.6); MONO % 7.5 % (1.0-6.0); PLATELET COUNT 299 10^3/uL (120.0-450.0); RBC 3.66 10^6/uL (3.5-6.1); RED CELL DISTRIBUTION WIDTH 20.8 % (11.5-14.5); WHITE BLOOD COUNT 19.4 10^3/ul (4.5-11.0)
[2016-11-03 07:29] LABS: ALBUMIN 2.7 g/dL (3.0-4.8); CALCIUM 8.1 mg/dL (8.4-10.5)
[2016-11-03] MEDS: Insulin Lispro 1 UNITS/0.01 ML SC SCH ×4 (07:58→22:16)
[2016-11-03] MEDS: Levothyroxine 125 MCG TAB PO SCH (07:58)
[2016-11-03] MEDS: Insulin Lispro (humaLOG) LOW Coverage SC SCH ×4 (07:59→22:16)
[2016-11-03] MEDS ORDERED: Nystatin-Triamcinolone Cream(30 gm) TOP SCH (10:00)
[2016-11-03] MEDS: Lactobacillus Acidophilus 500 MU Cap PO SCH ×2 (10:26→17:38)
[2016-11-03] MEDS: Iron Complex Polysacch 150mg Cap PO SCH (10:26)
[2016-11-03] MEDS: Insulin Detemir 100 units/ml Vial (Levemir) SC SCH (10:26)
--- NOTE | 2016-11-03 10:55 | RAD ---
HISTORY: intubated COMPARISON: 11/02/2016 FINDINGS: LUNGS: No evidence of endotracheal tube. Right IJ line in the right atrium PLEURA: Bilateral pleural effusions with elevation of the right hemidiaphragm. Findings are unchanged. CARDIOVASCULAR: Normal. OSSEOUS STRUCTURES: No significant abnormalities. VISUALIZED UPPER ABDOMEN: Normal. OTHER FINDINGS: None. IMPRESSION: Bilateral pleural effusions with elevation of the right hemidiaphragm. Findings are unchanged
--- NOTE | 2016-11-03 12:10 | CP.PCM.PN ---
Subjective - Date & Time of Evaluation Date of Evaluation: 11/03/16 Time of Evaluation: 09:50 - Subjective Subjective: Patient tolerating diet; Objective - Vital Signs/Intake and Output Vital Signs (last 24 hours): Temp Pulse Resp BP Pulse Ox 98.4 F 121 H 13 97/62 L 100 11/03/16 10:59 11/03/16 10:59 11/03/16 10:59 11/03/16 11:00 11/03/16 09:00 Intake and Output: 11/03/16 11/03/16 06:59 18:59 Intake Total 692 Output Total 425 Balance 267 - Medications Medications: Current Medications Apixaban (Eliquis) 2.5 mg PO BID [facility]ELA PRN Reason: Protocol Last Admin: 11/03/16 10:26 Dose: 2.5 mg Hydromorphone HCl (Dilaudid) 0.5 mg IVP Q4H PRN PRN Reason: Pain, moderate (4-7) Last Admin: 11/02/16 22:59 Dose: 0.5 mg Dobutamine HCl/Dextrose (Dobutamine/Dextrose 5% 500mg/250ml) 500 mg in 250 mls @ 11.261 mls/hr IV .[id number] PRN; Protocol; 5 MCG/KG/MIN PRN Reason: TITRATE PER PROTOCOL Last Admin: 11/02/16 11:51 Dose: 2.5 mcg/kg/min, 5.63 mls/hr Norepinephrine Bitartrate 8 mg (/ Sodium Chloride) 258 mls @ 37.53 mls/hr IV .Q6H53M IZABELA; 19.4 MCG/MIN PRN Reason: Protocol Last Titration: 11/02/16 13:51 Dose: Infused Meropenem 500 mg/ Sodium (Chloride) 100 mls @ 100 mls/hr IVPB Q8 [facility]ELA PRN Reason: Protocol Stop: 11/11/16 22:01 Last Admin: 11/03/16 05:49 Dose: 100 mls/hr Insulin Detemir (Levemir) 20 unit SC DAILY [facility] Last Admin: 11/03/16 10:26 Dose: 20 unit Insulin Human Lispro (Humalog) 5 units SC ACHS [facility] Last Admin: 11/03/16 07:58 Dose: 5 units Insulin Human Lispro (Humalog Low) 0 units SC ACHS [facility] PRN Reason: Protocol Last Admin: 11/03/16 07:59 Dose: 4 units Lactobacillus Acidophilus (Bacid Acidophilus) 1 cap PO BID [facility] Last Admin: 11/03/16 10:26 Dose: 1 cap Levothyroxine Sodium (Synthroid) 125 mcg PO ACB [facility] Last Admin: 11/03/16 07:58 Dose: 125 mcg Nystatin (Nystop Topical Powder) 0 gm TOP DAILY [facility] Last Admin: 11/02/16 09:24 Dose: 1 applic Nystatin/Triamcinolone Acetonide (Nystatin/Triamcinolone Cream) 0 ea TOP BID [facility] Pantoprazole Sodium (Protonix Ec Tab) 40 mg PO 0600 [facility] Last Admin: 11/03/16 05:50 Dose: 40 mg Polysaccharide Iron Complex (Ferrex-150) 150 mg PO DAILY [facility] Last Admin: 11/03/16 10:26 Dose: 150 mg Propranolol HCl (Inderal) 10 mg PO TID [facility] Last Admin: 10/31/16 17:52 Dose: Not Given Tramadol HCl (Ultram) 50 mg PO TID PRN PRN Reason: Pain, moderate (4-7) Last Admin: 10/31/16 13:07 Dose: 50 mg - Labs Labs: 11/03/16 06:50 11/03/16 06:50 PT 12.0 Seconds (9.9-11.8) H 10/20/16 09:29 INR 1.11 (0.93-1.08) H 10/20/16 09:29 APTT 27.8 Seconds (23.7-30.8) 10/20/16 09:29 - Constitutional Appears: Non-toxic, No Acute Distress - Head Exam Head Exam: NORMAL INSPECTION - Eye Exam Eye Exam: Normal appearance - ENT Exam ENT Exam: Mucous Membranes Moist - Respiratory Exam Respiratory Exam: absent: Rales, Rhonchi, Respiratory Distress Additional comments: Decreased breath sounds at bases; - Cardiovascular Exam Cardiovascular Exam: REGULAR RHYTHM. absent: Tachycardia, Gallop - GI/Abdominal Exam GI & Abdominal Exam: Soft, Tenderness - Exam Additional comments: pickens in place; - Extremities Exam Additional comments: Severely edematous; anasarca; - Neurological Exam Neurological Exam: Alert, Awake - Psychiatric Exam Psychiatric exam: Normal Affect, Normal Mood - Skin Skin Exam: Normal Color, Warm. absent: Cyanosis Assessment and Plan (1) Shock Assessment & Plan: Much improved; not currently on IVF; unclear if this was due to sepsis but being treated appropriately with abx; on meropenem 500 mg q8h, dosing frequency increased with improving renal function; f/u with ID; continue with dobutamine; Status: Acute (2) Acute renal failure Assessment & Plan: Pre-renal/cardiorenal etiology in the setting of sever systolic dysfunction/MR; improving after restarting inotropic support yesterday; question is when to restart diuretics to decrease venous congestion (and improve both cardiac and renal function); recommend to restart lasix once BP remains stable off vasopressor support; Status: Acute (3) Hyponatremia Assessment & Plan: Secondary to severely decompensated CHF; had benefitted from tolvaptan previously; will continue to monitor; Status: Acute (4) CHF (congestive heart failure) Assessment & Plan: Severely decompensated systolic CHF w/ MR; agree with continuing inotropic support; need to start diuresis once hemodynamically stable and off vasopressors ; Status: Acute (5) Metabolic acidosis Assessment & Plan: Lactic acidosis in the setting of shock, improved; continue current management with abx and inotropic support; Status: Acute (6) Anemia Assessment & Plan: Mild drop in hgb; iron deficient and with acute illness; continue PO iron; Status: Acute
[2016-11-03] MEDS ORDERED: DOBUTamine 500mg/250ml D5W 500 MG/250 ML BAG IV PRN (12:22)
--- NOTE | 2016-11-03 13:47 | CP.PCM.PN ---
Subjective - Date & Time of Evaluation Date of Evaluation: 11/03/16 Time of Evaluation: 13:00 - Subjective Subjective: Lethargic, offers no complaints Objective - Vital Signs/Intake and Output Vital Signs (last 24 hours): Temp Pulse Resp BP Pulse Ox 98.4 F 121 H 13 97/62 L 100 11/03/16 10:59 11/03/16 10:59 11/03/16 10:59 11/03/16 11:00 11/03/16 09:00 Intake and Output: 11/03/16 11/03/16 06:59 18:59 Intake Total 692 Output Total 425 Balance 267 - Medications Medications: Current Medications Apixaban (Eliquis) 2.5 mg PO BID I[facility]ELA PRN Reason: Protocol Last Admin: 11/03/16 10:26 Dose: 2.5 mg Hydromorphone HCl (Dilaudid) 0.5 mg IVP Q4H PRN PRN Reason: Pain, moderate (4-7) Last Admin: 11/02/16 22:59 Dose: 0.5 mg Norepinephrine Bitartrate 8 mg (/ Sodium Chloride) 258 mls @ 37.53 mls/hr IV .Q6H53M IZABELA; 19.4 MCG/MIN PRN Reason: Protocol Last Titration: 11/02/16 13:51 Dose: Infused Meropenem 500 mg/ Sodium (Chloride) 100 mls @ 100 mls/hr IVPB Q8 [facility]A PRN Reason: Protocol Stop: 11/11/16 22:01 Last Admin: 11/03/16 13:21 Dose: 100 mls/hr Dobutamine HCl/Dextrose (Dobutamine/Dextrose 5% 500mg/250ml) 500 mg in 250 mls @ 6.021 mls/hr IV .Q24H PRN; Protocol; 2.5 MCG/KG/MIN PRN Reason: TITRATE PER PROTOCOL Insulin Detemir (Levemir) 20 unit SC DAILY [facility] Last Admin: 11/03/16 10:26 Dose: 20 unit Insulin Human Lispro (Humalog) 5 units SC ACHS [facility] Last Admin: 11/03/16 13:26 Dose: 5 units Insulin Human Lispro (Humalog Low) 0 units SC ACHS [facility] PRN Reason: Protocol Last Admin: 11/03/16 13:25 Dose: 4 units Lactobacillus Acidophilus (Bacid Acidophilus) 1 cap PO BID [facility] Last Admin: 11/03/16 10:26 Dose: 1 cap Levothyroxine Sodium (Synthroid) 125 mcg PO ACB [facility] Last Admin: 11/03/16 07:58 Dose: 125 mcg Nystatin (Nystop Topical Powder) 0 gm TOP DAILY [facility] Last Admin: 11/02/16 09:24 Dose: 1 applic Nystatin/Triamcinolone Acetonide (Nystatin/Triamcinolone Cream) 0 ea TOP BID [facility] Last Admin: 11/03/16 13:18 Dose: Not Given Pantoprazole Sodium (Protonix Ec Tab) 40 mg PO 0600 [facility] Last Admin: 11/03/16 05:50 Dose: 40 mg Polysaccharide Iron Complex (Ferrex-150) 150 mg PO DAILY [facility] Last Admin: 11/03/16 10:26 Dose: 150 mg Propranolol HCl (Inderal) 10 mg PO TID [facility] Last Admin: 10/31/16 17:52 Dose: Not Given Tramadol HCl (Ultram) 50 mg PO TID PRN PRN Reason: Pain, moderate (4-7) Last Admin: 10/31/16 13:07 Dose: 50 mg - Labs Labs: 11/03/16 06:50 11/03/16 06:50 PT 12.0 Seconds (9.9-11.8) H 10/20/16 09:29 INR 1.11 (0.93-1.08) H 10/20/16 09:29 APTT 27.8 Seconds (23.7-30.8) 10/20/16 09:29 - Constitutional Appears: Chronically Ill - Eye Exam Eye Exam: Normal appearance, PERRL - ENT Exam ENT Exam: Mucous Membranes Moist - Respiratory Exam Respiratory Exam: Decreased Breath Sounds, NORMAL BREATHING PATTERN - Cardiovascular Exam Cardiovascular Exam: REGULAR RHYTHM, +S1, +S2 - GI/Abdominal Exam GI & Abdominal Exam: Soft, Normal Bowel Sounds - Extremities Exam Additional comments: anasarca - Skin Skin Exam: Dry, Pallor Assessment and Plan - Assessment and Plan (Free Text) Assessment: 51 year old female admitted with sepsis, OLLIE, hyponatremia, CHF, mitral regurgitation,metabolic acidosis, respiratory failure s/p intubation. The patient is lethargic. The patient was recently intubated. When asked if she would want to be intubated and have CPR, she was unable to commit one way or the other. She first stated that she did not want the "breathing tube again" but later said she wasn't sure. I also spoke with her sister in law Kevin who is the patient's next of kin. Kevin states that she has discussed CPR/intubation with the patient and that they both had agreed to on full resuscitative measures. Time spent in advance care planning discussion with patient and family member, 30 minutes Plan: Advance care planning. Will sign off , please re consult as needed
--- NOTE | 2016-11-03 13:56 | PN ---
CARDIOLOGY FOLLOWUP DATE: 11/03/2016 SUBJECTIVE: Cardiology "Dr. Kinney." The patient is in a chair complaining of dyspnea. PHYSICAL EXAMINATION: VITAL SIGNS: Blood pressure is 100/65 with the heart rate is in the 120, sinus tachycardia. NECK: Negative JVD. LUNGS: Decreased breath sounds bilaterally. HEART: Reveals S1 and S2 with a systolic murmur. EXTREMITIES: Without changes reported. LABORATORY DATA: White count is done to 19,000, hemoglobin is 9.2. Chemistries: Glucose is 161. BUN and creatinine is 79 and 2.2. Echocardiogram reveals an ejection fraction of approximately 30% with severe mitral regurgitation and documented pulmonary hypertension. IMPRESSION: 1. Recurrent sepsis. 2. Severe dilated cardiomyopathy. 3. Severe mitral regurgitation. 4. Pulmonary hypertension. 5. Diabetes mellitus. 6. Renal insufficiency. PLAN: Given these findings, the patient was tapered off Levophed. Currently the patient is on IV inotropic therapy. We will lower the inotrope to 2.5 given her more tachycardia. Kal Russell MD
[2016-11-03 15:20] LABS: ARTERIAL BLOOD GAS HEMOGLOBIN 9.2 g/dL (11.7-17.4); ARTERIAL BLOOD GAS O2 CAPACITY 12.8 mL/dl (16-24); ARTERIAL BLOOD GAS O2 CONTENT 12.7 ML/dl (15-23); ARTERIAL BLOOD GAS PCO2 29 mm/Hg (35-45); ARTERIAL BLOOD GAS TCO2 18.9 mmol.L (22-28)
--- NOTE | 2016-11-03 15:30 | PN ---
DATE: 11/03/2016 SUBJECTIVE: The patient in bed, in no acute distress, nontoxic, no fevers and no chills. PHYSICAL EXAMINATION VITAL SIGNS: Temperature is 98, blood pressure is 113/60, respiratory rate of 16. HEENT: Unremarkable. NECK: Supple. LUNGS: Decreased breath sounds. HEART: Normal S1 and S2. ABDOMEN: Soft and nontender. LABORATORY EXAMINATION: Reveals a white count of 19,400, hemoglobin of 9, platelets of 299,000. BUN of 79, creatinine of 2.2. LFTs are elevated and the patient's procalcitonin is 0.09. Microbiology reveals the blood cultures are negative. Urine cultures are negative. Review of orders reveals the patient to be on dobutamine, Eliquis, meropenem. The patient's CAT scan of the abdomen and pelvis is noted; however, it was without any contrast, and CAT scan of the chest from is noted. ASSESSMENT AND PLAN: A 51-year-old who was seen earlier this morning in the ICU. The patient with systemic inflammatory response syndrome, status post sepsis, severe sepsis with hypoxemia, ventilator-dependent respiratory failure, bilateral lower lobe healthcare-associated pneumonia, hyperglycemic hyperosmolar state, acute pancreatitis and with systemic inflammatory response syndrome. The patient was on Solu-Cortef which may explain her leukocytosis which appears to be improving. Today is day #4 of meropenem, and we will check on the final culture result and repeat procalcitonin. We will follow and make further recommendations. Yehuda Valentino MD
--- NOTE | 2016-11-03 15:43 | CP.PCM.PN ---
<ARIELA RICO - Last Filed: 11/03/16 16:58> Subjective - Date & Time of Evaluation Date of Evaluation: 11/03/16 Time of Evaluation: 10:00 - Subjective Subjective: Ariela Rico, PGY1, ICU Progress Note: Pt seen and examined at bedside. No acute events overnight. Denies fever, chills , n/v/d, headache, blurry vision, cp, sob, diarrhea. Pt still c/o mild abdominal pain. Objective - Vital Signs/Intake and Output Vital Signs (last 24 hours): Temp Pulse Resp BP Pulse Ox 99.1 F 125 H 13 104/67 99 11/03/16 15:00 11/03/16 15:00 11/03/16 15:00 11/03/16 15:00 11/03/16 15:00 Intake and Output: 11/03/16 11/03/16 06:59 18:59 Intake Total 692 Output Total 425 Balance 267 - Medications Medications: Current Medications Apixaban (Eliquis) 2.5 mg PO BID IZABELA PRN Reason: Protocol Last Admin: 11/03/16 10:26 Dose: 2.5 mg Hydromorphone HCl (Dilaudid) 0.5 mg IVP Q4H PRN PRN Reason: Pain, moderate (4-7) Last Admin: 11/02/16 22:59 Dose: 0.5 mg Norepinephrine Bitartrate 8 mg (/ Sodium Chloride) 258 mls @ 37.53 mls/hr IV .Q6H53M IZABELA; 19.4 MCG/MIN PRN Reason: Protocol Last Titration: 11/02/16 13:51 Dose: Infused Meropenem 500 mg/ Sodium (Chloride) 100 mls @ 100 mls/hr IVPB Q8 IZABELA PRN Reason: Protocol Stop: 11/11/16 22:01 Last Admin: 11/03/16 13:21 Dose: 100 mls/hr Dobutamine HCl/Dextrose (Dobutamine/Dextrose 5% 500mg/250ml) 500 mg in 250 mls @ 6.021 mls/hr IV .Q24H PRN; Protocol; 2.5 MCG/KG/MIN PRN Reason: TITRATE PER PROTOCOL Insulin Detemir (Levemir) 20 unit SC DAILY IZABELA Last Admin: 07/27/17 10:26 Dose: 20 unit Insulin Human Lispro (Humalog) 5 units SC [facility] Last Admin: 11/03/16 13:26 Dose: 5 units Insulin Human Lispro (Humalog Low) 0 units SC [facility] PRN Reason: Protocol Last Admin: 11/03/16 13:25 Dose: 4 units Lactobacillus Acidophilus (Bacid Acidophilus) 1 cap PO BID [facility] Last Admin: 11/03/16 10:26 Dose: 1 cap Levothyroxine Sodium (Synthroid) 125 mcg PO ACB [facility] Last Admin: 11/03/16 07:58 Dose: 125 mcg Nystatin (Nystop Topical Powder) 0 gm TOP DAILY [facility] Last Admin: 11/02/16 09:24 Dose: 1 applic Nystatin/Triamcinolone Acetonide (Nystatin/Triamcinolone Ointment) 0 gm TOP BID [facility] Pantoprazole Sodium (Protonix Ec Tab) 40 mg PO 0600 [facility] Last Admin: 11/03/16 05:50 Dose: 40 mg Polysaccharide Iron Complex (Ferrex-150) 150 mg PO DAILY [facility] Last Admin: 11/03/16 10:26 Dose: 150 mg Propranolol HCl (Inderal) 10 mg PO TID [facility] Last Admin: 10/31/16 17:52 Dose: Not Given Tramadol HCl (Ultram) 50 mg PO TID PRN PRN Reason: Pain, moderate (4-7) Last Admin: 10/31/16 13:07 Dose: 50 mg - Labs Labs: 11/03/16 06:50 11/03/16 06:50 PT 12.0 Seconds (9.9-11.8) H 10/20/16 09:29 INR 1.11 (0.93-1.08) H 10/20/16 09:29 APTT 27.8 Seconds (23.7-30.8) 10/20/16 09:29 - Constitutional Appears: No Acute Distress - Head Exam Head Exam: ATRAUMATIC, NORMOCEPHALIC - Eye Exam Eye Exam: PERRL - ENT Exam ENT Exam: Mucous Membranes Moist - Respiratory Exam Respiratory Exam: Decreased Breath Sounds - Cardiovascular Exam Cardiovascular Exam: Tachycardia, +S1, +S2 - GI/Abdominal Exam GI & Abdominal Exam: Soft, Normal Bowel Sounds. absent: Distended, Guarding, Tenderness - Extremities Exam Extremities Exam: Pedal Edema. absent: Calf Tenderness - Neurological Exam Neurological Exam: Alert, Awake, Oriented x3 - Psychiatric Exam Psychiatric exam: Normal Mood Assessment and Plan - Assessment and Plan (Free Text) Assessment: 51F with PMH CHF (EF30%), DM2, HTN, admitted to ICU for septic shock with MODS. Blood and urine cultures have been NTD so far, will f/u finalized cxs. Leukocytosis improving (likely from discontinuation of Hydrocortisone), eLslee improving, UO 450/12h, stable transaminitis. Pt on Merrem and Fluconazole per ID. Pt off pressors, on dobutamine @2.5mcg.h for UOweaned off Levophed this AM, will start dobutamine @ 2.5 mcg/h to maintain CO and increase UO. Plan: Neuro : AAOx3 today. Lethargic 10/31. Cont to monitor. CV : MAP 63-81. Off pressors, c/w Dobutamine @ 2.5 mcg/h for maintenance of BP, increasing CO and renal output. Hx of HTN. hold anti-htn for hypotension. HX of CHF, ef 30%. Maintain MAP>65. Pulm: On NC. Saturating well. Maintain O2 sat>90% Continue with HOB elevation> 35 degrees, aspiration precautions. Extubated self 10/31. ABG shows metabolic acidosis. Hydrocortisone 50mg q6 discontinued yesterday. on nighttime bipap for sleep apnea. GI: C/w soft diet. Continue with Protonix. Elevated LFTs, likely from shock liver. cont to monitor. Renal: Replace lytes, maintain euvolemia. Will hydrate with additional IVF. UO imrpoving 450ml/12h. Spoke with Dr. French (nephro). Agrees with dobutamine drip. will give prn boluses for BP. s/p 3L NS boluses 10/31. Continue to monitor. ID: afebrile, leukocytosis improving 19.4 (at her baseline) 2/2 unknown etiology. Indwelling PICC line could be a source (removed 11/01), Blood and urine Cx NTD, f/u finalized culture. f/u fungal markers. PCT 0.09. Continue with fluconazole and Merrem per ID. Endo: Continue with Levemir. Maintain euglycemia. Soft diet. Heme: Stable. Cont to monitor. DVT ppx - elliquis GI ppx - Protonix Dispo: may downgrade Pt discussed and seen with PGY2 and attending, Dr. Amador. Ariela Rico, PGY1 <Perry COOPER,Ildamode H - Last Filed: 11/03/16 17:10> Objective - Vital Signs/Intake and Output Vital Signs (last 24 hours): Temp Pulse Resp BP Pulse Ox 99.1 F 127 H 17 116/65 99 11/03/16 16:00 11/03/16 16:00 11/03/16 16:00 11/03/16 16:00 11/03/16 16:00 Intake and Output: 11/03/16 11/03/16 06:59 18:59 Intake Total 692 Output Total 425 Balance 267 - Medications Medications: Current Medications Apixaban (Eliquis) 2.5 mg PO BID IZABELA PRN Reason: Protocol Last Admin: 11/03/16 10:26 Dose: 2.5 mg Bacitracin (Bacitracin) 0 gm TOP BID IZABELA Hydromorphone HCl (Dilaudid) 0.5 mg IVP Q4H PRN PRN Reason: Pain, moderate (4-7) Last Admin: 11/02/16 22:59 Dose: 0.5 mg Norepinephrine Bitartrate 8 mg (/ Sodium Chloride) 258 mls @ 37.53 mls/hr IV .Q6H53M IZABELA; 19.4 MCG/MIN PRN Reason: Protocol Last Titration: 11/02/16 13:51 Dose: Infused Meropenem 500 mg/ Sodium (Chloride) 100 mls @ 100 mls/hr IVPB Q8 IZABELA PRN Reason: Protocol Stop: 11/11/16 22:01 Last Admin: 11/03/16 13:21 Dose: 100 mls/hr Dobutamine HCl/Dextrose (Dobutamine/Dextrose 5% 500mg/250ml) 500 mg in 250 mls @ 6.021 mls/hr IV .Q24H PRN; Protocol; 2.5 MCG/KG/MIN PRN Reason: TITRATE PER PROTOCOL Insulin Detemir (Levemir) 20 unit SC DAILY IZABELA Last Admin: 11/03/16 10:26 Dose: 20 unit Insulin Human Lispro (Humalog) 5 units SC [facility]CHS [facility] Last Admin: 11/03/16 13:26 Dose: 5 units Insulin Human Lispro (Humalog Low) 0 units SC ACHS [facility] PRN Reason: Protocol Last Admin: 11/03/16 13:25 Dose: 4 units Lactobacillus Acidophilus (Bacid Acidophilus) 1 cap PO BID [facility] Last Admin: 11/03/16 10:26 Dose: 1 cap Levothyroxine Sodium (Synthroid) 125 mcg PO ACB [facility] Last Admin: 11/03/16 07:58 Dose: 125 mcg Nystatin (Nystop Topical Powder) 0 gm TOP DAILY [facility] Last Admin: 11/03/16 16:15 Dose: 1 applic Nystatin/Triamcinolone Acetonide (Nystatin/Triamcinolone Ointment) 0 gm TOP BID [facility] Pantoprazole Sodium (Protonix Ec Tab) 40 mg PO 0600 [facility] Last Admin: 11/03/16 05:50 Dose: 40 mg Polysaccharide Iron Complex (Ferrex-150) 150 mg PO DAILY [facility] Last Admin: 11/03/16 10:26 Dose: 150 mg Propranolol HCl (Inderal) 10 mg PO TID [facility] Last Admin: 10/31/16 17:52 Dose: Not Given Tramadol HCl (Ultram) 50 mg PO TID PRN PRN Reason: Pain, moderate (4-7) Last Admin: 10/31/16 13:07 Dose: 50 mg - Labs Labs: 11/03/16 06:50 11/03/16 06:50 PT 12.0 Seconds (9.9-11.8) H 10/20/16 09:29 INR 1.11 (0.93-1.08) H 10/20/16 09:29 APTT 27.8 Seconds (23.7-30.8) 10/20/16 09:29 Attending/Attestation - Attestation I have personally seen and examined this patient.: Yes I have fully participated in the care of the patient.: Yes I have reviewed all pertinent clinical information, including history, physical exam and plan: Yes Notes (Text): 11/03/16 17:04 51 y/o F w/ resolving sepsis in the setting of known CHF. On empiric abx cx to be followed up. Off all vasopressors Out of bed to chair with minimal abd pain On dobutamine for CHF and LESLEE/ ATN. Follow urine output R TLC to be removed and peripheral line needs to be placed. Out of bed to chair / PT/OT needed. cc time 65 min
[2016-11-03] MEDS: Nystatin 100,000 Units/gm Topical Pow(15 gm) TOP SCH (16:15)
--- NOTE | 2016-11-03 16:50 | CP.PCM.PN ---
<SAROJ HOLCOMB - Last Filed: 11/03/16 17:31> Subjective - Date & Time of Evaluation Date of Evaluation: 11/03/16 Time of Evaluation: 10:00 - Subjective Subjective: pt seen and examined bedside. no acute overnight events. denies fevers, chills, n/v/d. abd pain still present as before. Objective - Vital Signs/Intake and Output Vital Signs (last 24 hours): Temp Pulse Resp BP Pulse Ox 99.1 F 127 H 17 116/65 99 11/03/16 16:00 11/03/16 16:00 11/03/16 16:00 11/03/16 16:00 11/03/16 16:00 Intake and Output: 11/03/16 11/03/16 06:59 18:59 Intake Total 692 Output Total 425 Balance 267 - Medications Medications: Current Medications Apixaban (Eliquis) 2.5 mg PO BID IZABELA PRN Reason: Protocol Last Admin: 11/03/16 10:26 Dose: 2.5 mg Hydromorphone HCl (Dilaudid) 0.5 mg IVP Q4H PRN PRN Reason: Pain, moderate (4-7) Last Admin: 11/02/16 22:59 Dose: 0.5 mg Norepinephrine Bitartrate 8 mg (/ Sodium Chloride) 258 mls @ 37.53 mls/hr IV .Q6H53M IZABELA; 19.4 MCG/MIN PRN Reason: Protocol Last Titration: 11/02/16 13:51 Dose: Infused Meropenem 500 mg/ Sodium (Chloride) 100 mls @ 100 mls/hr IVPB Q8 IZABELA PRN Reason: Protocol Stop: 11/11/16 22:01 Last Admin: 11/03/16 13:21 Dose: 100 mls/hr Dobutamine HCl/Dextrose (Dobutamine/Dextrose 5% 500mg/250ml) 500 mg in 250 mls @ 6.021 mls/hr IV .Q24H PRN; Protocol; 2.5 MCG/KG/MIN PRN Reason: TITRATE PER PROTOCOL Insulin Detemir (Levemir) 20 unit SC DAILY [facility] Last Admin: 11/03/16 10:26 Dose: 20 unit Insulin Human Lispro (Humalog) 5 units SC ACHS [facility] Last Admin: 11/03/16 13:26 Dose: 5 units Insulin Human Lispro (Humalog Low) 0 units SC ACHS [facility] PRN Reason: Protocol Last Admin: 11/03/16 13:25 Dose: 4 units Lactobacillus Acidophilus (Bacid Acidophilus) 1 cap PO BID [facility] Last Admin: 11/03/16 10:26 Dose: 1 cap Levothyroxine Sodium (Synthroid) 125 mcg PO ACB [facility] Last Admin: 11/03/16 07:58 Dose: 125 mcg Nystatin (Nystop Topical Powder) 0 gm TOP DAILY [facility] Last Admin: 11/03/16 16:15 Dose: 1 applic Nystatin/Triamcinolone Acetonide (Nystatin/Triamcinolone Ointment) 0 gm TOP BID [facility] Pantoprazole Sodium (Protonix Ec Tab) 40 mg PO 0600 [facility] Last Admin: 11/03/16 05:50 Dose: 40 mg Polysaccharide Iron Complex (Ferrex-150) 150 mg PO DAILY [facility] Last Admin: 11/03/16 10:26 Dose: 150 mg Propranolol HCl (Inderal) 10 mg PO TID [facility] Last Admin: 10/31/16 17:52 Dose: Not Given Tramadol HCl (Ultram) 50 mg PO TID PRN PRN Reason: Pain, moderate (4-7) Last Admin: 10/31/16 13:07 Dose: 50 mg - Labs Labs: 11/03/16 06:50 11/03/16 06:50 PT 12.0 Seconds (9.9-11.8) H 10/20/16 09:29 INR 1.11 (0.93-1.08) H 10/20/16 09:29 APTT 27.8 Seconds (23.7-30.8) 10/20/16 09:29 - Additional Findings Additional findings: - Constitutional Appears: Non-toxic, No Acute Distress, Chronically Ill - Head Exam Head Exam: ATRAUMATIC, NORMAL INSPECTION, NORMOCEPHALIC - Eye Exam Eye Exam: EOMI, Normal appearance, Periorbital swelling, PERRL. absent: Nystagmus, Scleral icterus Additional comments: face and eyes are swollen - ENT Exam ENT Exam: Mucous Membranes Moist, Normal Exam - Neck Exam Neck Exam: Normal Inspection Additional comments: R IJ in place - Respiratory Exam Respiratory Exam: Rales, NORMAL BREATHING PATTERN. absent: Accessory Muscle Use , Chest Wall Tenderness, Rhonchi, Wheezes, Respiratory Distress, Stridor Additional comments: breath sounds are improved from prior exams - Cardiovascular Exam Cardiovascular Exam: RRR, +S1, +S2. absent: Diastolic murmur, Gallop, JVD, Rubs , Murmur - GI/Abdominal Exam GI & Abdominal Exam: Soft, Normal Bowel Sounds. absent: Distended, Guarding, Tenderness, Organomegaly, Rebound Additional comments: obese - Extremities Exam Extremities Exam: Pedal Edema (3+, up to thighs). absent: Tenderness - Neurological Exam Neurological Exam: Alert, Awake, Oriented x3 (person, place, time and president) - Psychiatric Exam Psychiatric exam: Normal Affect, Normal Mood - Skin Skin Exam: Normal Color, Rash (inner thigh rash noted to be covered with nystatin powder ), Warm. absent: Cyanosis, Diaphoretic - Additional Findings Additional findings: R IJ in place LUE PICC in place Assessment and Plan - Assessment and Plan (Free Text) Plan: 51 y/o female with PMHx of DM2, CHF (EF 30% in 10/2016), HTN, chronic pulmonary effusion, HTN, DVT, PE, hypothyroidism, PSH of lap mitchell in 05/2016 and psych hx of schizophrenia and Bipolar disorder presented to the ED with complaints of abdominal pain. Patient was extubated on 10/15, and is on tele for closer monitoring. HHS improved, pt extubated and in NAD, decreasing anasarca. s/p 7 days of Doxycycline and 6 days of Meronepem. Pt was in severe septic shock and was transferred to ICU. Pt was intubated due to acidosis and self-extubated on day 1 ICU. Currently ICU day 4 and s/p 3day pressors (d/c today) 1. Septic shock, likely a/w cardiogenic cause - Leukocytosis improving, possibly due to Solu-Cortef, r/o infectious causes - Lactate 2.3, improving - hypothermia resolved - hypotension improving off pressors today, c/w dobutamine 2.5 PRN if needed - Meropenem 500mg Q8 for empiric treatment (day4) - cardio consulted, recs appreciated - CXR shows b/l pleural effusions w/ elevated right hemidiaphragm (unchanged from prior exam) 2. Anasarca - secondary to CHF and fluids for shock - pain likely due to edema - pain control: dilaudid 0.5 PRN, tramadol PRN - Pulm consulted, recs appreciated - daily weights - I/O 2.3L/0.8L - fluid restriction - ECHO (10/18): EF 30% 3. Metabolic acidosis resolved - ABG stable pH 7.4 4. OLLIE likely due to shock (prerenal) - monitor I/O - hold diuretics until sepsis resolves, per nephro - nephro consulted, recs appreciated 5. UTI - UCx showing no growth after 24hrs - continue Nystatin powder for therapeutic treatment of vaginitis - pickens in place - UCx 10/19 growing VRE (contact precautions) - ID consulted, recs appreciated 6. Hyponatremia - f/u bmp 7. DM2, HONK resolved - continue Levemir 20u, Lispro 5u, and ISS 8. Hypothyroid - Synthroid 125mcg PO Dispo: TCU once patient is stable, FULL code PTX/Eliquis Patient was seen, discussed and evaluated with attending, Dr. Mirian Holcomb, PGY1 <Will Vela - Last Filed: 11/04/16 13:23> Objective - Vital Signs/Intake and Output Vital Signs (last 24 hours): Temp Pulse Resp BP Pulse Ox 96.3 F L 93 H 18 94/59 L 99 11/04/16 12:00 11/04/16 12:00 11/04/16 12:00 11/04/16 12:00 11/04/16 06:00 Intake and Output: 11/04/16 11/04/16 06:59 18:59 Intake Total 272 Balance 272 - Medications Medications: Current Medications Apixaban (Eliquis) 2.5 mg PO BID IZABELA PRN Reason: Protocol Last Admin: 11/04/16 10:45 Dose: 2.5 mg Bacitracin (Bacitracin) 0 gm TOP BID IZABELA Last Admin: 11/03/16 18:31 Dose: 1 dose Digoxin (Lanoxin) 0.125 mg PO 1400 IZABELA Hydromorphone HCl (Dilaudid) 0.5 mg IVP Q4H PRN PRN Reason: Pain, moderate (4-7) Last Admin: 11/04/16 04:07 Dose: 0.5 mg Norepinephrine Bitartrate 8 mg (/ Sodium Chloride) 258 mls @ 37.53 mls/hr IV .Q6H53M IZABELA; 19.4 MCG/MIN PRN Reason: Protocol Last Titration: 11/02/16 13:51 Dose: Infused Meropenem 500 mg/ Sodium (Chloride) 100 mls @ 100 mls/hr IVPB Q8 IZABELA PRN Reason: Protocol Stop: 11/11/16 22:01 Last Admin: 11/04/16 05:38 Dose: 100 mls/hr Dobutamine HCl/Dextrose (Dobutamine/Dextrose 5% 500mg/250ml) 500 mg in 250 mls @ 6.021 mls/hr IV .Q24H PRN; Protocol; 2.5 MCG/KG/MIN PRN Reason: TITRATE PER PROTOCOL Last Admin: 11/03/16 18:32 Dose: 6.021 mls/hr Insulin Detemir (Levemir) 20 unit SC DAILY [facility] Last Admin: 11/03/16 10:26 Dose: 20 unit Insulin Human Lispro (Humalog) 5 units SC ACHS [facility] Last Admin: 11/04/16 12:04 Dose: Not Given Insulin Human Lispro (Humalog Low) 0 units SC ACHS [facility] PRN Reason: Protocol Last Admin: 11/04/16 12:03 Dose: Not Given Lactobacillus Acidophilus (Bacid Acidophilus) 1 cap PO BID [facility] Last Admin: 11/04/16 10:49 Dose: Not Given Levothyroxine Sodium (Synthroid) 125 mcg PO ACB [facility] Last Admin: 11/04/16 07:52 Dose: 125 mcg Metoprolol Succinate (Toprol Xl) 12.5 mg PO BID [facility] Nystatin (Nystop Topical Powder) 0 gm TOP DAILY [facility] Last Admin: 11/03/16 16:15 Dose: 1 applic Nystatin/Triamcinolone Acetonide (Nystatin/Triamcinolone Ointment) 0 gm TOP BID [facility] Last Admin: 11/03/16 18:35 Dose: 1 dose Pantoprazole Sodium (Protonix Ec Tab) 40 mg PO 0600 [facility] Last Admin: 11/04/16 05:38 Dose: 40 mg Polysaccharide Iron Complex (Ferrex-150) 150 mg PO DAILY [facility] Last Admin: 11/04/16 10:50 Dose: Not Given Tramadol HCl (Ultram) 50 mg PO TID PRN PRN Reason: Pain, moderate (4-7) Last Admin: 11/04/16 07:52 Dose: 50 mg - Labs Labs: 11/04/16 06:01 11/04/16 06:01 PT 12.0 Seconds (9.9-11.8) H 10/20/16 09:29 INR 1.11 (0.93-1.08) H 10/20/16 09:29 APTT 27.8 Seconds (23.7-30.8) 10/20/16 09:29 Attending/Attestation - Attestation I have personally seen and examined this patient.: Yes I have fully participated in the care of the patient.: Yes I have reviewed all pertinent clinical information, including history, physical exam and plan: Yes Notes (Text): 11/04/16 12:33 attending note; Patient Seen and examined with resident in ICU. Patient is alert and awake. Patient is 51 year old female with history of DM-2, CHF(EF~30%), HTN, chronic pulmonary effusion, HTN, DVT, PE on eliquis, hypothyroidism, schizophrenia and Bipolar disorder who presented initially with hyperosmolar state and sepsis. cardiorenal syndrome; cardiomyopathy with mitral reguitation and pulmonary hypertension. patient is on IV dobutamine. Blood pressure is acceptable. OFF levophed. Cardiology evaluation with DR. Russell appreciated. history of DVT and PE; currently on Eliquis. Bipolar disorder; monitor closely. sepsis; resolving slowly. Currently on meropenem. Leukocytosis is improving. Repeat cultures pending. OLLIE: Creatinine is stable 2.2. Monitor urine output. transaminitis; Secondary to hypotension. Improving slowly. Diabetes; continue Levemir. hyponatremia and ansarca secondary to cardiorenal etiology. Treated with tolvaptan before. Follow-up with nephrology. transfer the patient out of ICU. Upon discharge patient will follow up with DR. Roman. 11/04/16 13:21 11/04/16 13:22
[2016-11-03] MEDS ORDERED: Bacitracin 500 Units/gm Oint Foilpak UD ONE (16:51)
[2016-11-03] MEDS ORDERED: Digoxin 250 mcg (0.25 mg) Tab PO STA (17:48)
[2016-11-03] MEDS: Metoprolol Succinate 25 mg XL Tab PO SCH (17:53)
[2016-11-03] MEDS: Bacitracin Ointment 30 GM TUBE TOP SCH (18:31)
[2016-11-03] MEDS: Nystatin-Triamcinolone Ointment(30 gm) TOP SCH (18:35)
[2016-11-04] MEDS: HYDROmorphone 0.5 mg/0.5 ml ISec IVP PRN (04:07)
[2016-11-04] MEDS: Pantoprazole 40 mg EC Tab PO SCH (05:38)
[2016-11-04] MEDS: Meropenem 500 MG in Sodium Chloride 0.9% 100 ML IVPB SCH ×3 (05:38→21:28)
[2016-11-04 07:07] LABS: ALBUMIN 2.9 g/dL (3.0-4.8)
[2016-11-04 07:12] LABS: HEMOGLOBIN 10.1 gm/dL (12.0-16.0); MEAN CELL VOLUME 76.1 fL (80.0-105.0); MEAN CORPUSCULAR HEMOGLOBIN 25.4 pg (25.0-35.0); MEAN CORPUSCULAR HGB CONC 33.4 g/dl (31.0-37.0); MEAN PLATELET VOLUME 9.8 fl (7.0-11.0); PLATELET COUNT 311 10^3/uL (120.0-450.0); RBC 3.97 10^6/uL (3.5-6.1); RED CELL DISTRIBUTION WIDTH 20.9 % (11.5-14.5); WHITE BLOOD COUNT 18.3 10^3/ul (4.5-11.0)
[2016-11-04] MEDS: Insulin Lispro 1 UNITS/0.01 ML SC SCH ×3 (07:47→21:40)
[2016-11-04] MEDS: Insulin Lispro (humaLOG) LOW Coverage SC SCH ×4 (07:47→21:40)
[2016-11-04] MEDS: Levothyroxine 125 MCG TAB PO SCH (07:52)
[2016-11-04 08:32] LABS: ANISOCYTOSIS 1+; BAND 2 % (0-2); CORRECTED WBC 16.3 K/mm3 (4.5-11.0); HYPOCHROMIA 2+; LARGE PLATELETS PRESENT; LYMPHOCYTE 17 % (22.0-35.0); MICROCYTOSIS SLIGHT; MONOCYTE 4 % (1.0-6.0); NEUTROPHIL 77 % (50.0-70.0); NUCLEATED RED BLOOD CELL 12 %; OVALOCYTES SLIGHT; PLATELET ESTIMATE NORMAL (NORMAL); POIKILOCYTOSIS SLIGHT; TARGET CELLS SLIGHT; TEAR DROP CELLS SLIGHT
[2016-11-04] MEDS: Metoprolol Succinate 25 mg XL Tab PO SCH (10:20)
[2016-11-04] MEDS: Lactobacillus Acidophilus 500 MU Cap PO SCH ×3 (10:45→17:04)
[2016-11-04] MEDS: Iron Complex Polysacch 150mg Cap PO SCH ×2 (10:46→10:50)
--- NOTE | 2016-11-04 10:50 | CP.PCM.PN ---
<SAROJ HOLCOMB - Last Filed: 11/04/16 10:47> Subjective - Date & Time of Evaluation Date of Evaluation: 11/04/16 Time of Evaluation: 09:00 - Subjective Subjective: patient was seen and examined bedside. pt complains of mild abdominal/pelvic discomfort from pickens catheter. denies cp, sob, palpitations, fevers, n/v/d. Objective - Vital Signs/Intake and Output Vital Signs (last 24 hours): Temp Pulse Resp BP Pulse Ox 97.5 F L 89 18 84/53 L 99 11/04/16 06:00 11/04/16 10:20 11/04/16 06:00 11/04/16 10:20 11/04/16 06:00 Intake and Output: 11/04/16 11/04/16 06:59 18:59 Intake Total 272 Balance 272 - Medications Medications: Current Medications Apixaban (Eliquis) 2.5 mg PO BID [facility] PRN Reason: Protocol Last Admin: 11/03/16 17:38 Dose: 2.5 mg Bacitracin (Bacitracin) 0 gm TOP BID [facility] Last Admin: 11/03/16 18:31 Dose: 1 dose Digoxin (Lanoxin) 0.125 mg PO 1400 [facility] Hydromorphone HCl (Dilaudid) 0.5 mg IVP Q4H PRN PRN Reason: Pain, moderate (4-7) Last Admin: 11/04/16 04:07 Dose: 0.5 mg Norepinephrine Bitartrate 8 mg (/ Sodium Chloride) 258 mls @ 37.53 mls/hr IV .Q6H53M IZABELA; 19.4 MCG/MIN PRN Reason: Protocol Last Titration: 11/02/16 13:51 Dose: Infused Meropenem 500 mg/ Sodium (Chloride) 100 mls @ 100 mls/hr IVPB Q8 [facility] PRN Reason: Protocol Stop: 11/11/16 22:01 Last Admin: 11/04/16 05:38 Dose: 100 mls/hr Dobutamine HCl/Dextrose (Dobutamine/Dextrose 5% 500mg/250ml) 500 mg in 250 mls @ 6.021 mls/hr IV .Q24H PRN; Protocol; 2.5 MCG/KG/MIN PRN Reason: TITRATE PER PROTOCOL Last Admin: 11/03/16 18:32 Dose: 6.021 mls/hr Insulin Detemir (Levemir) 20 unit SC DAILY [facility] Last Admin: 11/03/16 10:26 Dose: 20 unit Insulin Human Lispro (Humalog) 5 units SC ACHS [facility] Last Admin: 11/04/16 07:47 Dose: Not Given Insulin Human Lispro (Humalog Low) 0 units SC ACHS [facility] PRN Reason: Protocol Last Admin: 11/04/16 07:47 Dose: Not Given Lactobacillus Acidophilus (Bacid Acidophilus) 1 cap PO BID [facility] Last Admin: 11/03/16 17:38 Dose: 1 cap Levothyroxine Sodium (Synthroid) 125 mcg PO ACB [facility] Last Admin: 11/04/16 07:52 Dose: 125 mcg Metoprolol Succinate (Toprol Xl) 25 mg PO BID [facility] Last Admin: 11/04/16 10:20 Dose: Not Given Nystatin (Nystop Topical Powder) 0 gm TOP DAILY [facility] Last Admin: 11/03/16 16:15 Dose: 1 applic Nystatin/Triamcinolone Acetonide (Nystatin/Triamcinolone Ointment) 0 gm TOP BID [facility] Last Admin: 11/03/16 18:35 Dose: 1 dose Pantoprazole Sodium (Protonix Ec Tab) 40 mg PO 0600 [facility] Last Admin: 11/04/16 05:38 Dose: 40 mg Polysaccharide Iron Complex (Ferrex-150) 150 mg PO DAILY [facility] Last Admin: 11/03/16 10:26 Dose: 150 mg Propranolol HCl (Inderal) 10 mg PO TID [facility] Last Admin: 10/31/16 17:52 Dose: Not Given Torsemide (Demadex) 20 mg PO Q12H [facility] Last Admin: 11/04/16 10:19 Dose: Not Given Tramadol HCl (Ultram) 50 mg PO TID PRN PRN Reason: Pain, moderate (4-7) Last Admin: 11/04/16 07:52 Dose: 50 mg - Labs Labs: 11/04/16 06:01 11/04/16 06:01 PT 12.0 Seconds (9.9-11.8) H 10/20/16 09:29 INR 1.11 (0.93-1.08) H 10/20/16 09:29 APTT 27.8 Seconds (23.7-30.8) 10/20/16 09:29 - Additional Findings Additional findings: - Constitutional Appears: Non-toxic, No Acute Distress, Chronically Ill - Head Exam Head Exam: ATRAUMATIC, NORMAL INSPECTION, NORMOCEPHALIC - Eye Exam Eye Exam: EOMI, Normal appearance, Periorbital swelling, PERRL. absent: Nystagmus, Scleral icterus Additional comments: face and eyes are swollen (improved from prior exams) - ENT Exam ENT Exam: Mucous Membranes Moist, Normal Exam - Neck Exam Neck Exam: Normal Inspection Additional comments: R IJ in place - Respiratory Exam Respiratory Exam: NORMAL BREATHING PATTERN. absent: Accessory Muscle Use, Chest Wall Tenderness, Rales, Rhonchi, Wheezes, Respiratory Distress, Stridor - Cardiovascular Exam Cardiovascular Exam: RRR, +S1, +S2. absent: Diastolic murmur, Gallop, JVD, Rubs , Murmur - GI/Abdominal Exam GI & Abdominal Exam: Soft, Normal Bowel Sounds. absent: Distended, Guarding, Tenderness, Organomegaly, Rebound Additional comments: obese - Extremities Exam Extremities Exam: Pedal Edema (3+, up to thighs). absent: Tenderness - Neurological Exam Neurological Exam: Alert, Awake, Oriented x3 (person, place, time and president) - Psychiatric Exam Psychiatric exam: Normal Affect, Normal Mood - Skin Skin Exam: Normal Color, Warm. absent: Cyanosis, Diaphoretic - Additional Findings Additional findings: R IJ in place Assessment and Plan - Assessment and Plan (Free Text) Plan: 51 y/o female with PMHx of DM2, CHF (EF 30% in 10/2016), HTN, chronic pulmonary effusion, HTN, DVT, PE, hypothyroidism, PSH of lap mitchell in 05/2016 and psych hx of schizophrenia and Bipolar disorder presented to the ED with complaints of abdominal pain. ECHO (10/18): EF 30%. Patient was in ICU, then extubated on 10/15, and was on tele for closer monitoring. HHS improved, and decreasing anasarca. s /p 7 days of Doxycycline and 6 days of Meronepem. Pt was in severe septic shock and was transferred to ICU. Pt was intubated due to acidosis and self-extubated on day 1 ICU. s/p ICU 4days and s/p 3day pressors. Currently on Tele day 1 1. Septic shock (hypotension, tachycardia), likely a/w cardiogenic cause - Lactate 2.3 - hypothermia, pt receives Sony huggers PRN - hypotension improving off pressors, c/w dobutamine 2.5 PRN - cardio consulted, recs appreciated 2. Leukocytosis - likely 2/2 steroids in ICU, blood cx and urine cx negative - blood and urine cxs, CXR all show no signs of active dz - f/u procal level - Meropenem 500mg Q8 empiric rx (day 5), per ID recs - ID consulted, recs appreciated 3. Hypothermia - pt has Sony Huggers PRN 4. hypotension - likely due to sepsis - improving off pressors - Dobutamine 2.5 PRN 5. Anasarca, improving - secondary to CHF and fluids for shock - pain likely due to edema - pain control: dilaudid 0.5 PRN, tramadol PRN - I/O 2.3L/0.8L - fluid restriction - daily weights - Pulm consulted, recs appreciated 6. OLLIE likely due to shock (prerenal) - monitor I/O (800cc/2.4L) - hold diuretics until sepsis resolves and BP stabilizies, per nephro - nephro consulted, recs appreciated 7. Transaminitis - likely 2/2 shocked liver - AST/ALT trending down - avoid hepatic toxins 8. UTI - UCx showing no growth after 24hrs - pickens in place - UCx / growing VRE (contact precautions) - ID consulted, recs appreciated 9. Hyponatremia - pt benefitted from tolvaptan previously - renal f/u 10. hypochloremia - likely 2/2 dehydration, CHF - renal f/u 11. DM2, HONK resolved - continue Levemir 20u, Lispro 5u, and ISS - accuchecks QACHS 12. Hypothyroid - Synthroid 125mcg PO Dispo: TCU once patient is stable, FULL code PTX/Eliquis Patient was seen, discussed and evaluated with attending, Dr. Mirian Holcomb, PGY1 <Will Vela - Last Filed: 11/04/16 13:29> Objective - Vital Signs/Intake and Output Vital Signs (last 24 hours): Temp Pulse Resp BP Pulse Ox 96.3 F L 93 H 18 94/59 L 99 11/04/16 12:00 11/04/16 12:00 11/04/16 12:00 11/04/16 12:00 11/04/16 06:00 Intake and Output: 11/04/16 11/04/16 06:59 18:59 Intake Total 272 Balance 272 - Medications Medications: Current Medications Apixaban (Eliquis) 2.5 mg PO BID IZABELA PRN Reason: Protocol Last Admin: 11/04/16 10:45 Dose: 2.5 mg Bacitracin (Bacitracin) 0 gm TOP BID [facility] Last Admin: 11/03/16 18:31 Dose: 1 dose Digoxin (Lanoxin) 0.125 mg PO 1400 IZABELA Hydromorphone HCl (Dilaudid) 0.5 mg IVP Q4H PRN PRN Reason: Pain, moderate (4-7) Last Admin: 11/04/16 04:07 Dose: 0.5 mg Norepinephrine Bitartrate 8 mg (/ Sodium Chloride) 258 mls @ 37.53 mls/hr IV .Q6H53M IZABELA; 19.4 MCG/MIN PRN Reason: Protocol Last Titration: 11/02/16 13:51 Dose: Infused Meropenem 500 mg/ Sodium (Chloride) 100 mls @ 100 mls/hr IVPB Q8 [facility]ELA PRN Reason: Protocol Stop: 11/11/16 22:01 Last Admin: 11/04/16 05:38 Dose: 100 mls/hr Dobutamine HCl/Dextrose (Dobutamine/Dextrose 5% 500mg/250ml) 500 mg in 250 mls @ 6.021 mls/hr IV .Q24H PRN; Protocol; 2.5 MCG/KG/MIN PRN Reason: TITRATE PER PROTOCOL Last Admin: 11/03/16 18:32 Dose: 6.021 mls/hr Insulin Detemir (Levemir) 20 unit SC DAILY [facility] Last Admin: 11/03/16 10:26 Dose: 20 unit Insulin Human Lispro (Humalog) 5 units SC ACHS [facility] Last Admin: 11/04/16 12:04 Dose: Not Given Insulin Human Lispro (Humalog Low) 0 units SC ACHS [facility] PRN Reason: Protocol Last Admin: 11/04/16 12:03 Dose: Not Given Lactobacillus Acidophilus (Bacid Acidophilus) 1 cap PO BID [facility] Last Admin: 11/04/16 10:49 Dose: Not Given Levothyroxine Sodium (Synthroid) 125 mcg PO ACB [facility] Last Admin: 11/04/16 07:52 Dose: 125 mcg Metoprolol Succinate (Toprol Xl) 12.5 mg PO BID [facility] Nystatin (Nystop Topical Powder) 0 gm TOP DAILY [facility] Last Admin: 11/03/16 16:15 Dose: 1 applic Nystatin/Triamcinolone Acetonide (Nystatin/Triamcinolone Ointment) 0 gm TOP BID [facility] Last Admin: 11/03/16 18:35 Dose: 1 dose Pantoprazole Sodium (Protonix Ec Tab) 40 mg PO 0600 [facility] Last Admin: 11/04/16 05:38 Dose: 40 mg Polysaccharide Iron Complex (Ferrex-150) 150 mg PO DAILY [facility] Last Admin: 11/04/16 10:50 Dose: Not Given Tramadol HCl (Ultram) 50 mg PO TID PRN PRN Reason: Pain, moderate (4-7) Last Admin: 11/04/16 07:52 Dose: 50 mg - Labs Labs: 11/04/16 06:01 11/04/16 06:01 PT 12.0 Seconds (9.9-11.8) H 10/20/16 09:29 INR 1.11 (0.93-1.08) H 10/20/16 09:29 APTT 27.8 Seconds (23.7-30.8) 10/20/16 09:29 Attending/Attestation - Attestation I have personally seen and examined this patient.: Yes I have fully participated in the care of the patient.: Yes I have reviewed all pertinent clinical information, including history, physical exam and plan: Yes Notes (Text): 11/04/16 13:23 attending note; Patient Seen and examined with resident. Patient is alert and awake. urine output is improving. still on dobutamine drip. Patient is 51 year old female with history of DM-2, CHF(EF~30%), HTN, chronic pulmonary effusion, HTN, DVT, PE on eliquis, hypothyroidism, schizophrenia and Bipolar disorder who presented initially with hyperosmolar state and sepsis. Anasarca/cardiorenal syndrome; cardiomyopathy with severe mitral reguitation and pulmonary hypertension. patient is on IV dobutamine. Blood pressure is acceptable. OFF levophed now. Cardiology evaluation with DR. Russell appreciated. history of DVT and PE; currently on Eliquis. sepsis; resolving slowly. Currently on meropenem. Leukocytosis is improving. Repeat cultures negative so far. OLLIE: Creatinine is stable 2.2. Monitor urine output. Transaminitis; Secondary to hypotension. Improving slowly. Diabetes; continue Levemir. hyponatremia:. Treated with tolvaptan before. Follow-up with nephrology. case discussed with bilingual patient support caseworker in detail. Patient can go to [facility] once off dobutamine drip. Upon discharge patient will follow up with DR. Roman.
[2016-11-04] MEDS ORDERED: Metoprolol Succinate 25 mg XL Tab PO SCH (10:55)
--- NOTE | 2016-11-04 11:19 | US ---
HISTORY: Leg pain and swelling. Evaluate for DVT PHYSICIAN(S): Kal Peña MD. TECHNIQUE: Duplex sonography and color-flow Doppler with graded compression were used to evaluate the deep venous systems of both lower extremities. The exam is very limited by edema. The tibial veins are not well seen. FINDINGS: The venous waveforms are pulsatile, consistent with elevated right heart pressures. The visualized deep venous systems of both lower extremities are sonographically normal and compressible. Normal wave forms and augmentation are seen. There is no sonographic evidence for deep venous thrombosis in the visualized segments of both lower extremities. IMPRESSION: No sonographic evidence for deep venous thrombosis in the visualized segments of both lower extremities.
[2016-11-04] MEDS ORDERED: Digoxin 250 mcg (0.25 mg) Tab PO SCH (14:00)
[2016-11-04] MEDS: Digoxin 125 mcg (0.125 mg) Tab PO SCH (14:09)
--- NOTE | 2016-11-04 14:11 | PN ---
DATE: 11/04/2016 SUBJECTIVE: The patient is in bed, in no acute distress, and nontoxic. PHYSICAL EXAMINATION: VITAL SIGNS: Temperature is 97, blood pressure is 89/50, respiratory rate of 18, and heart rate of 98. HEENT: Unremarkable. NECK: Supple.. LUNGS: Decreased breath sounds. HEART: Normal S1 and S2. ABDOMEN: Soft. LABORATORY DATA: Examination reveals the patient has a white count of 18,300, hemoglobin of 10, and platelets of 311. BUN of 81 and creatinine of 2.2. LFTs are elevated. Urinalysis is noted. Microbiology reveals that the blood cultures are negative and urine culture are negative. Review of orders reveals the patient to be on dobutamine and meropenem. Repeat procalcitonin is 0.09, Dr. note is reviewed. ASSESSMENT AND PLAN: This is a 51-year-old female who was seen earlier this morning in room 260, bed 2, with systemic inflammatory response syndrome, post severe sepsis with hypoxemia, ventilator-dependent respiratory failure, bilateral lower lobe healthcare-associated pneumonia, hyperglycemic hyperosmolar state with acute pancreatitis, now with SIRS (systemic inflammatory response syndrome), white count improving currently on Solu-Cortef, was on Solu-Cortef, day number 5 of meropenem, which all cultures are remained negative. We will check on the procalcitonin, which is pending. If repeat procalcitonin is normal, we will discontinue the meropenem within the next 24 hours probably the WBC count. Yehuda Valentino MD
--- NOTE | 2016-11-04 16:39 | PN ---
DATE: 11/04/2016 SUBJECTIVE: The patient is in bed complaining of weakness. PHYSICAL EXAMINATION: VITAL SIGNS: Blood pressure is 90 systolic, heart rate is in the 90s. NECK: Negative JVD. LUNGS: Without rales. HEART: S1 and S2. EXTREMITIES: Without edema. LABORATORY DATA: Hemoglobin is 10.1, white count is down to 18.3. Chemistries, BUN and creatinine is 81 and 2.2. IMPRESSION: 1. Sepsis. 2. Dilated cardiomyopathy. 3. Pulmonary hypertension. 4. Renal insufficiency. 5. Severe mitral regurgitation. PLAN: Given these findings, we will need to decrease some of her medications which may be responsible for hypotension. We will discontinue her diuretics. We will taper down her beta-blockers. We will continue the dobutamine. We will decrease the digoxin from 0.25 to 0.125 daily. Kal Russell MD
--- NOTE | 2016-11-04 17:12 | CP.PCM.PN ---
Subjective - Date & Time of Evaluation Date of Evaluation: 11/04/16 Time of Evaluation: 09:00 - Subjective Subjective: Patient again reporting abdominal discomfort; tolerating diet; Objective - Vital Signs/Intake and Output Vital Signs (last 24 hours): Temp Pulse Resp BP Pulse Ox 96.3 F L 83 18 94/59 L 99 11/04/16 12:00 11/04/16 14:00 11/04/16 12:00 11/04/16 12:00 11/04/16 06:00 Intake and Output: 11/04/16 11/04/16 06:59 18:59 Intake Total 272 Balance 272 - Medications Medications: Current Medications Apixaban (Eliquis) 2.5 mg PO BID [facility] PRN Reason: Protocol Last Admin: 11/04/16 10:45 Dose: 2.5 mg Bacitracin (Bacitracin) 0 gm TOP BID [facility] Last Admin: 11/03/16 18:31 Dose: 1 dose Digoxin (Lanoxin) 0.125 mg PO 1400 [facility] Last Admin: 11/04/16 14:09 Dose: 0.125 mg Hydromorphone HCl (Dilaudid) 0.5 mg IVP Q4H PRN PRN Reason: Pain, moderate (4-7) Last Admin: 11/04/16 04:07 Dose: 0.5 mg Meropenem 500 mg/ Sodium (Chloride) 100 mls @ 100 mls/hr IVPB Q8 [facility] PRN Reason: Protocol Stop: 11/11/16 22:01 Last Admin: 11/04/16 14:09 Dose: 100 mls/hr Dobutamine HCl/Dextrose (Dobutamine/Dextrose 5% 500mg/250ml) 500 mg in 250 mls @ 6.021 mls/hr IV .Q24H PRN; Protocol; 2.5 MCG/KG/MIN PRN Reason: TITRATE PER PROTOCOL Last Admin: 11/03/16 18:32 Dose: 6.021 mls/hr Insulin Detemir (Levemir) 20 unit SC DAILY [facility] Last Admin: 11/03/16 10:26 Dose: 20 unit Insulin Human Lispro (Humalog) 5 units SC [facility] Last Admin: 11/04/16 12:04 Dose: Not Given Insulin Human Lispro (Humalog Low) 0 units SC [facility] PRN Reason: Protocol Last Admin: 11/04/16 17:05 Dose: Not Given Lactobacillus Acidophilus (Bacid Acidophilus) 1 cap PO BID [facility] Last Admin: 11/04/16 17:04 Dose: Not Given Levothyroxine Sodium (Synthroid) 125 mcg PO ACB [facility] Last Admin: 11/04/16 07:52 Dose: 125 mcg Metoprolol Succinate (Toprol Xl) 12.5 mg PO BID [facility] Nystatin (Nystop Topical Powder) 0 gm TOP DAILY [facility] Last Admin: 11/03/16 16:15 Dose: 1 applic Nystatin/Triamcinolone Acetonide (Nystatin/Triamcinolone Ointment) 0 gm TOP BID [facility] Last Admin: 11/03/16 18:35 Dose: 1 dose Pantoprazole Sodium (Protonix Ec Tab) 40 mg PO 0600 [facility] Last Admin: 11/04/16 05:38 Dose: 40 mg Polysaccharide Iron Complex (Ferrex-150) 150 mg PO DAILY [facility] Last Admin: 11/04/16 10:50 Dose: Not Given Torsemide (Demadex) 10 mg PO DAILY [facility] Last Admin: 11/04/16 16:43 Dose: 10 mg Tramadol HCl (Ultram) 50 mg PO TID PRN PRN Reason: Pain, moderate (4-7) Last Admin: 11/04/16 07:52 Dose: 50 mg - Labs Labs: 11/04/16 06:01 11/04/16 06:01 PT 12.0 Seconds (9.9-11.8) H 10/20/16 09:29 INR 1.11 (0.93-1.08) H 10/20/16 09:29 APTT 27.8 Seconds (23.7-30.8) 10/20/16 09:29 - Constitutional Appears: Non-toxic, No Acute Distress - Head Exam Head Exam: NORMAL INSPECTION - Eye Exam Eye Exam: Normal appearance - ENT Exam ENT Exam: Mucous Membranes Moist - Respiratory Exam Respiratory Exam: absent: Respiratory Distress Additional comments: Decreased breath sounds; - Cardiovascular Exam Cardiovascular Exam: REGULAR RHYTHM, +S1, +S2 - GI/Abdominal Exam GI & Abdominal Exam: Distended, Soft, Tenderness - Extremities Exam Additional comments: Markedly edematous legs, anasarca; - Neurological Exam Neurological Exam: Alert, Awake - Psychiatric Exam Psychiatric exam: absent: Manic - Skin Skin Exam: Normal Color, Warm. absent: Cyanosis Assessment and Plan (1) Shock Assessment & Plan: Resolving but still low/normal BP off vasopressor support; unclear etiology; was treated as sepsis with abx and IVF; agree with continuing abx; continue with dobutamin for inotropic support; Status: Acute (2) Acute renal failure Assessment & Plan: Cardiorenal etiology of OLLIE; renal function relatively stable on inotropic support; will try diuretics as BP tolerates to decrease venous congestion and improve cardiac/renal status; Status: Acute (3) Hyponatremia Assessment & Plan: In the setting of severely decompensated CHF; may still have an element of intravascular volume depletion in the setting of sepsis caused vasodilatation; however, seeking to avoid further IVF; giving dose of tolvaptan 30 mg today and will re-assess; Status: Acute (4) CHF (congestive heart failure) Assessment & Plan: Severely decompensated systolic CHF with MR; on inotropic support, should continue the same and attempt gentle diuresis; Status: Acute (5) Metabolic acidosis Assessment & Plan: Resolved; lactic acidosis in the setting of shock; monitor; Status: Resolved (6) Anemia Assessment & Plan: Hgb stable, on PO iron, continue; Status: Acute
[2016-11-04] MEDS: Bacitracin Ointment 30 GM TUBE TOP SCH (18:19)
[2016-11-04] MEDS: Nystatin 100,000 Units/gm Topical Pow(15 gm) TOP SCH (18:19)
[2016-11-04] MEDS: Nystatin-Triamcinolone Ointment(30 gm) TOP SCH (18:19)
[2016-11-05] MEDS: Meropenem 500 MG in Sodium Chloride 0.9% 100 ML IVPB SCH (05:41)
[2016-11-05] MEDS: Pantoprazole 40 mg EC Tab PO SCH (05:41)
[2016-11-05 06:30] LABS: BASO # 0.01 K/mm3 (0.0-2.0); BASO % 0.1 % (0.0-3.0); EOS # 0.1 (0.0-0.7); EOS % 0.9 % (1.5-5.0); GRAN % 70.7 % (50.0-68.0); HEMOGLOBIN 8.7 gm/dL (12.0-16.0); LYMPH # 2.6 (1.2-3.4); LYMPH % 20.7 % (22.0-35.0); MEAN CELL VOLUME 76.3 fL (80.0-105.0); MEAN CORPUSCULAR HEMOGLOBIN 25.1 pg (25.0-35.0); MEAN PLATELET VOLUME 9.7 fl (7.0-11.0); MONO % 7.6 % (1.0-6.0); PLATELET COUNT 276 10^3/uL (120.0-450.0); RBC 3.46 10^6/uL (3.5-6.1); RED CELL DISTRIBUTION WIDTH 20.9 % (11.5-14.5); WHITE BLOOD COUNT 12.6 10^3/ul (4.5-11.0)
[2016-11-05] MEDS: Insulin Lispro 1 UNITS/0.01 ML SC SCH ×4 (09:21→21:57)
--- NOTE | 2016-11-05 09:21 | RAD ---
HISTORY: intubated COMPARISON: Portable chest 11/03/2016. FINDINGS: LUNGS: Right central venous line unchanged in position. Bilateral pleural effusions persist with underlying atelectasis and infiltrate is not excluded completely. Borderline pulmonary venous congestion. Clinically correlate. PLEURA: As above CARDIOVASCULAR: Obscured by pleural effusions but likely stable. OSSEOUS STRUCTURES: No significant abnormalities. VISUALIZED UPPER ABDOMEN: Normal. OTHER FINDINGS: None. IMPRESSION: Persistent bilateral pleural effusions with underlying atelectasis or infiltrates not excluded both bases. Borderline CHF pattern.
[2016-11-05] MEDS: Insulin Lispro (humaLOG) LOW Coverage SC SCH ×4 (09:22→21:58)
[2016-11-05] MEDS: Lactobacillus Acidophilus 500 MU Cap PO SCH ×2 (09:25→17:29)
[2016-11-05] MEDS: Bacitracin Ointment 30 GM TUBE TOP SCH ×2 (09:25→19:06)
[2016-11-05] MEDS: Iron Complex Polysacch 150mg Cap PO SCH (09:26)
[2016-11-05] MEDS: Nystatin-Triamcinolone Ointment(30 gm) TOP SCH ×2 (09:26→19:08)
[2016-11-05] MEDS: Insulin Detemir 100 units/ml Vial (Levemir) SC SCH (09:26)
[2016-11-05] MEDS: Nystatin 100,000 Units/gm Topical Pow(15 gm) TOP SCH (09:27)
[2016-11-05] MEDS: Levothyroxine 125 MCG TAB PO SCH (09:47)
--- NOTE | 2016-11-05 09:58 | PN ---
DATE: 11/05/2016 SUBJECTIVE: The patient is seen in bed in no acute distress; no fevers and no chills. PHYSICAL EXAMINATION: VITAL SIGNS: Blood pressure is 102/50, respiratory rate of 18, heart rate of 97. HEENT: Unremarkable. NECK: Supple. LUNGS: Decreased breath sounds. HEART: Normal S1 and S2. ABDOMEN: Soft and nontender. LABORATORY DATA: Reveals the white count of 12,600, hemoglobin of 8, platelets of 276. Coagulation is noted. Chemistries revealed the BUN of 81, creatinine of 2.2. The patient's LFTs are elevated and repeat procalcitonin is 0.8. Review of orders reveals the patient is on dobutamine, Eliquis, insulin. Blood cultures are no growth. Urine cultures are no growth. ASSESSMENT AND PLAN: A 51-year-old female, seen earlier this morning in room 260, bed #2, with SIRS, systemic inflammatory response syndrome; status post with hypoxemia ventilatory, dependent respiratory failure, bilateral lower lobe, healthcare-associated pneumonia, hyperglycemic, hyperosmolar state with acute pancreatitis; now with SIRS, systemic inflammatory response syndrome. White count improving. The patient was on Solu Cortef; had received meropenem therapy and dose have elevated; procalcitonin mildly elevated; however, of renal disease, and the patient's reviewing mediations reveals the patient is day #6 of meropenem. We will discontinue the meropenem at this time. The patient is at risk for developing new nosocomial infections. Yehuda Valentino MD
[2016-11-05] MEDS ORDERED: Insulin Detemir 100 units/ml Vial (Levemir) SC SCH ×2 (10:50→12:04)
[2016-11-05 11:35] LABS: ALB/GLOB RATIO 0.9 (1.1-1.8); ALBUMIN 2.6 g/dL (3.0-4.8); CALCIUM 8.4 mg/dL (8.4-10.5)
--- NOTE | 2016-11-05 11:37 | CP.PCM.PN ---
Subjective - Date & Time of Evaluation Date of Evaluation: 11/05/16 Time of Evaluation: 09:00 - Subjective Subjective: Reports breathing and hand edema improved; Objective - Vital Signs/Intake and Output Vital Signs (last 24 hours): Temp Pulse Resp BP Pulse Ox 97.8 F 98 H 18 102/56 L 97 11/05/16 06:00 11/05/16 06:00 11/05/16 06:00 11/05/16 06:00 11/05/16 06:00 Intake and Output: 11/05/16 11/05/16 06:59 18:59 Intake Total 752 Output Total 2400 Balance -1648 - Medications Medications: Current Medications Apixaban (Eliquis) 2.5 mg PO BID [facility] PRN Reason: Protocol Last Admin: 11/05/16 09:47 Dose: 2.5 mg Bacitracin (Bacitracin) 0 gm TOP BID [facility] Last Admin: 11/05/16 09:25 Dose: 1 applic Digoxin (Lanoxin) 0.125 mg PO 1400 [facility] Last Admin: 11/04/16 14:09 Dose: 0.125 mg Dobutamine HCl/Dextrose (Dobutamine/Dextrose 5% 500mg/250ml) 500 mg in 250 mls @ 6.021 mls/hr IV .Q24H PRN; Protocol; 2.5 MCG/KG/MIN PRN Reason: TITRATE PER PROTOCOL Last Admin: 11/03/16 18:32 Dose: 6.021 mls/hr Insulin Detemir (Levemir) 18 unit SC DAILY [facility] Insulin Human Lispro (Humalog) 5 units SC ACHS [facility] Last Admin: 11/05/16 09:21 Dose: 5 units Insulin Human Lispro (Humalog Low) 0 units SC ACHS [facility] PRN Reason: Protocol Last Admin: 11/05/16 09:22 Dose: 4 units Lactobacillus Acidophilus (Bacid Acidophilus) 1 cap PO BID [facility] Last Admin: 11/05/16 09:25 Dose: Not Given Levothyroxine Sodium (Synthroid) 125 mcg PO ACB [facility] Last Admin: 11/05/16 09:47 Dose: 125 mcg Nystatin (Nystop Topical Powder) 0 gm TOP DAILY [facility] Last Admin: 11/05/16 09:27 Dose: 1 applic Nystatin/Triamcinolone Acetonide (Nystatin/Triamcinolone Ointment) 0 gm TOP BID [facility] Last Admin: 11/05/16 09:26 Dose: 1 applic Pantoprazole Sodium (Protonix Ec Tab) 40 mg PO 0600 [facility] Last Admin: 11/05/16 05:41 Dose: 40 mg Polysaccharide Iron Complex (Ferrex-150) 150 mg PO DAILY [facility] Last Admin: 11/05/16 09:26 Dose: Not Given Torsemide (Demadex) 20 mg PO DAILY [facility] Tramadol HCl (Ultram) 50 mg PO TID PRN PRN Reason: Pain, moderate (4-7) Last Admin: 11/04/16 23:39 Dose: 50 mg - Labs Labs: 11/05/16 06:20 11/04/16 06:01 PT 12.0 Seconds (9.9-11.8) H 10/20/16 09:29 INR 1.11 (0.93-1.08) H 10/20/16 09:29 APTT 27.8 Seconds (23.7-30.8) 10/20/16 09:29 - Constitutional Appears: Non-toxic, No Acute Distress - Head Exam Head Exam: NORMAL INSPECTION - Eye Exam Eye Exam: Normal appearance - ENT Exam ENT Exam: Mucous Membranes Moist - Respiratory Exam Respiratory Exam: absent: Respiratory Distress Additional comments: Decreased basal breath sounds; - Cardiovascular Exam Cardiovascular Exam: REGULAR RHYTHM. absent: Gallop - GI/Abdominal Exam GI & Abdominal Exam: Soft, Tenderness - Exam Additional comments: pickens in place - Extremities Exam Additional comments: Markedly edematous legs bilaterally; - Neurological Exam Neurological Exam: Alert, Awake - Psychiatric Exam Psychiatric exam: Normal Mood - Skin Skin Exam: Normal Color, Warm. absent: Cyanosis Assessment and Plan (1) Shock Assessment & Plan: Hemodynamically much improved, even tolerating diuresis, etiology still unclear , however, this is second time during this admission that marked hypotension has improved with inotropic support; Status: Resolved (2) Acute renal failure Assessment & Plan: Cardiorenal etiology; renal function improving with inotropic support and diuresis; increasing torsemide to 20 mg q12h to help decrease venous congestion and improve both cardiac and renal function; Status: Acute (3) Hyponatremia Assessment & Plan: In the setting of severely decompensated systolic CHF; didn't respond significantly to tolvaptan dose yesterday, giving another 30 mg dose today; Status: Acute (4) CHF (congestive heart failure) Assessment & Plan: Acute severely decompensated systolic CHF w/ MR; recommend to continue inotropic support as patient showing significant improvement; previously, dobutamine was discontinued prematurely with subsequent decompensation; Status: Acute (5) Metabolic acidosis Assessment & Plan: Lactic acidosis resolved; Status: Resolved (6) Anemia Assessment & Plan: Due to chronic/acute illness as well as iron deficiency; continue PO iron; Status: Acute
[2016-11-05] MEDS: DOBUTamine 500mg/250ml D5W 500 MG/250 ML BAG IV PRN (11:38)
--- NOTE | 2016-11-05 12:16 | PN ---
DATE: 11/05/2016 SUBJECTIVE: The patient's breathing is better as well as her weakness is better. We are tapering beta blockers. PHYSICAL EXAMINATION: VITAL SIGNS: Blood pressure is 102/56, heart rate is in the 90s. NECK: Negative JVD. LUNGS: Decreased breath sounds bilaterally. HEART: S1 and S2. EXTREMITIES: Decreasing edema. LABORATORY DATA: BUN and creatinine is 81 and 2.2. Hemoglobin is 8.7. IMPRESSION: 1. Dilated cardiomyopathy. 2. Severe pulmonary hypertension. 3. Mitral regurgitation. 4. Renal insufficiency. 5. Sepsis, which is improving. PLAN: Given these findings, we will continue to taper down on her beta blockers. We will continue her digoxin to better heart rate control. We will continue IV dobutamine. Kal Russell MD
--- NOTE | 2016-11-05 13:02 | CP.PCM.PN ---
<Dalton Huber - Last Filed: 11/05/16 12:59> Subjective - Date & Time of Evaluation Date of Evaluation: 11/05/16 Time of Evaluation: 12:59 - Subjective Subjective: Pt seen and examined at bedside. Pt doing well overnight with no acute events. Pt states pain in abdomen has improved and she feels as though her swelling has decreased. Denies CP, SOB, N/V/D. Objective - Vital Signs/Intake and Output Vital Signs (last 24 hours): Temp Pulse Resp BP Pulse Ox 94 F L 112 H 18 100/66 97 11/05/16 12:00 11/05/16 12:00 11/05/16 12:00 11/05/16 12:00 11/05/16 06:00 Intake and Output: 11/05/16 11/05/16 06:59 18:59 Intake Total 752 Output Total 2400 Balance -1648 - Medications Medications: Current Medications Apixaban (Eliquis) 2.5 mg PO BID [facility] PRN Reason: Protocol Last Admin: 11/05/16 09:47 Dose: 2.5 mg Bacitracin (Bacitracin) 0 gm TOP BID [facility] Last Admin: 11/05/16 09:25 Dose: 1 applic Digoxin (Lanoxin) 0.125 mg PO 1400 [facility] Last Admin: 11/04/16 14:09 Dose: 0.125 mg Dobutamine HCl/Dextrose (Dobutamine/Dextrose 5% 500mg/250ml) 500 mg in 250 mls @ 6.021 mls/hr IV .Q24H PRN; Protocol; 2.5 MCG/KG/MIN PRN Reason: TITRATE PER PROTOCOL Last Admin: 11/05/16 11:38 Dose: 6.021 mls/hr Insulin Detemir (Levemir) 22 unit SC DAILY [facility] Insulin Human Lispro (Humalog) 5 units SC ACHS [facility] Last Admin: 11/05/16 12:30 Dose: 5 units Insulin Human Lispro (Humalog Low) 0 units SC ACHS [facility] PRN Reason: Protocol Last Admin: 11/05/16 12:30 Dose: 5 units Lactobacillus Acidophilus (Bacid Acidophilus) 1 cap PO BID [facility] Last Admin: 11/05/16 09:25 Dose: Not Given Levothyroxine Sodium (Synthroid) 125 mcg PO ACB [facility] Last Admin: 11/05/16 09:47 Dose: 125 mcg Nystatin (Nystop Topical Powder) 0 gm TOP DAILY [facility] Last Admin: 11/05/16 09:27 Dose: 1 applic Nystatin/Triamcinolone Acetonide (Nystatin/Triamcinolone Ointment) 0 gm TOP BID [facility] Last Admin: 11/05/16 09:26 Dose: 1 applic Pantoprazole Sodium (Protonix Ec Tab) 40 mg PO 0600 [facility] Last Admin: 11/05/16 05:41 Dose: 40 mg Polysaccharide Iron Complex (Ferrex-150) 150 mg PO DAILY [facility] Last Admin: 11/05/16 09:26 Dose: Not Given Torsemide (Demadex) 20 mg PO DAILY [facility] Last Admin: 11/05/16 11:38 Dose: Not Given Tramadol HCl (Ultram) 50 mg PO TID PRN PRN Reason: Pain, moderate (4-7) Last Admin: 11/04/16 23:39 Dose: 50 mg - Labs Labs: 11/05/16 06:20 11/05/16 11:22 PT 12.0 Seconds (9.9-11.8) H 10/20/16 09:29 INR 1.11 (0.93-1.08) H 10/20/16 09:29 APTT 27.8 Seconds (23.7-30.8) 10/20/16 09:29 - Constitutional Appears: Non-toxic, No Acute Distress - Head Exam Head Exam: ATRAUMATIC, NORMAL INSPECTION, NORMOCEPHALIC - ENT Exam ENT Exam: Mucous Membranes Moist, Normal Exam - Respiratory Exam Respiratory Exam: Clear to Ausculation Bilateral, NORMAL BREATHING PATTERN - Cardiovascular Exam Cardiovascular Exam: RRR, +S1, +S2 - GI/Abdominal Exam GI & Abdominal Exam: Soft, Tenderness (Diffuse, improved from previous day), Normal Bowel Sounds - Extremities Exam Extremities Exam: Pedal Edema (+2 pitting edema b/l). absent: Calf Tenderness - Neurological Exam Neurological Exam: Alert, Awake, Oriented x3 - Psychiatric Exam Psychiatric exam: Normal Affect, Normal Mood - Skin Skin Exam: Intact, Normal Color, Warm Assessment and Plan - Assessment and Plan (Free Text) Plan: 51 y/o female with PMHx of DM2, CHF (EF 30% in 10/2016), HTN, chronic pulmonary effusion, HTN, DVT, PE, hypothyroidism, schizophrenia and bipolar disorder presents with resolving septic shock in the setting of decompensated CHF. Pt remains on Dobutamine to assist with inotropic support and diuresis. Hyponatremia stable, but not improving at this time. Pt will be taken on Merrem today as per ID. Will continue to monitor BP closely and taper down dobutmine as pressure stabilizes. 1. Septic shock, resolving - Sony huggers PRN for hypothermia - Remains hypotensive on Dobutamine 2.5 mcg/min - Leukocytosis resolving - Merrem stopped as per ID 2. Decompensated CHF - Anasarca improving - Negative fluid balance - Continue dobutamine - Continue torsemide - Continue strict I's and O's - Daily weights 3. OLLIE secondary to hypotensive shock - Creatinine improving, will continue to monitor closely - Avoid nephrotoxic agents 4. Transaminitis, secondary to hypotensive shock - Improving LFTs 5. UTI - Witt in place - Urine culture negative, hx of VRE 6. Hyponatremia - Tolvaptan given via nephrology - Fluid restriction - Monitor closely 7. DM2 - Levemir changed to 22 units at night PPX Eliquis Protonix <Anne Marie Moran - Last Filed: 11/05/16 20:48> Objective - Vital Signs/Intake and Output Vital Signs (last 24 hours): Temp Pulse Resp BP Pulse Ox 97.1 F L 116 H 18 121/69 97 11/05/16 17:45 11/05/16 17:45 11/05/16 17:45 11/05/16 17:45 11/05/16 06:00 - Medications Medications: Current Medications Apixaban (Eliquis) 2.5 mg PO BID [facility] PRN Reason: Protocol Last Admin: 11/05/16 19:06 Dose: 2.5 mg Bacitracin (Bacitracin) 0 gm TOP BID [facility] Last Admin: 11/05/16 19:06 Dose: 1 applic Digoxin (Lanoxin) 0.125 mg PO 1400 [facility] Last Admin: 11/05/16 14:10 Dose: 0.125 mg Dobutamine HCl/Dextrose (Dobutamine/Dextrose 5% 500mg/250ml) 500 mg in 250 mls @ 6.021 mls/hr IV .Q24H PRN; Protocol; 2.5 MCG/KG/MIN PRN Reason: TITRATE PER PROTOCOL Last Admin: 11/05/16 11:38 Dose: 6.021 mls/hr Insulin Detemir (Levemir) 22 unit SC DAILY [facility] Insulin Human Lispro (Humalog) 5 units SC ACHS [facility] Last Admin: 11/05/16 16:45 Dose: 5 units Insulin Human Lispro (Humalog Low) 0 units SC ACHS [facility] PRN Reason: Protocol Last Admin: 11/05/16 14:30 Dose: 4 units Lactobacillus Acidophilus (Bacid Acidophilus) 1 cap PO BID [facility] Last Admin: 11/05/16 17:29 Dose: Not Given Levothyroxine Sodium (Synthroid) 125 mcg PO ACB [facility] Last Admin: 11/05/16 09:47 Dose: 125 mcg Nystatin (Nystop Topical Powder) 0 gm TOP DAILY [facility] Last Admin: 11/05/16 09:27 Dose: 1 applic Nystatin/Triamcinolone Acetonide (Nystatin/Triamcinolone Ointment) 0 gm TOP BID [facility] Last Admin: 11/05/16 19:08 Dose: 1 applic Pantoprazole Sodium (Protonix Ec Tab) 40 mg PO 0600 [facility] Last Admin: 11/05/16 05:41 Dose: 40 mg Polysaccharide Iron Complex (Ferrex-150) 150 mg PO DAILY [facility] Last Admin: 11/05/16 09:26 Dose: Not Given Torsemide (Demadex) 20 mg PO DAILY [facility] Last Admin: 11/05/16 11:38 Dose: Not Given Tramadol HCl (Ultram) 50 mg PO TID PRN PRN Reason: Pain, moderate (4-7) Last Admin: 11/05/16 20:20 Dose: 50 mg - Labs Labs: 11/05/16 06:20 11/05/16 11:22 PT 12.0 Seconds (9.9-11.8) H 10/20/16 09:29 INR 1.11 (0.93-1.08) H 10/20/16 09:29 APTT 27.8 Seconds (23.7-30.8) 10/20/16 09:29 Attending/Attestation - Attestation I have personally seen and examined this patient.: Yes I have fully participated in the care of the patient.: Yes I have reviewed all pertinent clinical information, including history, physical exam and plan: Yes Notes (Text): 11/05/16 20:43 Patient seen and examined at bedside. labs, vitas,orders and consultations noted. She reports some improvement in her upper extremity swelling today, reports good appetite. Denies any new complaints. Antibiotics discontinued. Renal function improving, remains in - ve balance and Tolvaptan regimen continued with renal. Sodium levels remain low but stable( multifactorial). Continue inotropic support with dobutamine, cardiology follow up ongoing. Meropenem discontinued. Agree with the plan as outlined by the resident.
[2016-11-05] MEDS: Digoxin 125 mcg (0.125 mg) Tab PO SCH (14:10)
[2016-11-06] MEDS: Pantoprazole 40 mg EC Tab PO SCH (05:41)
[2016-11-06 06:38] LABS: HEMOGLOBIN 9.2 gm/dL (12.0-16.0); MEAN CORPUSCULAR HEMOGLOBIN 25.1 pg (25.0-35.0); MEAN CORPUSCULAR HGB CONC 33.1 g/dl (31.0-37.0); MEAN PLATELET VOLUME 9.6 fl (7.0-11.0); PLATELET COUNT 301 10^3/uL (120.0-450.0); RBC 3.66 10^6/uL (3.5-6.1); RED CELL DISTRIBUTION WIDTH 20.6 % (11.5-14.5); WHITE BLOOD COUNT 12.2 10^3/ul (4.5-11.0)
[2016-11-06 06:48] LABS: ALB/GLOB RATIO 0.9 (1.1-1.8); ALBUMIN 2.8 g/dL (3.0-4.8); CALCIUM 8.7 mg/dL (8.4-10.5)
[2016-11-06 08:15] LABS: CORRECTED WBC 10.6 K/mm3 (4.5-11.0); EOSINOPHIL 2 % (0.0-3.0); LYMPHOCYTE 14 % (22.0-35.0); MONOCYTE 6 % (1.0-6.0); NEUTROPHIL 78 % (50.0-70.0); NUCLEATED RED BLOOD CELL 15 %; PLATELET ESTIMATE NORMAL (NORMAL)
[2016-11-06 08:16] LABS: ANISOCYTOSIS SLIGHT; TARGET CELLS SLIGHT
[2016-11-06] MEDS: Bacitracin Ointment 30 GM TUBE TOP SCH ×2 (09:34→17:57)
[2016-11-06] MEDS: Lactobacillus Acidophilus 500 MU Cap PO SCH ×2 (09:34→17:57)
[2016-11-06] MEDS: Insulin Lispro 1 UNITS/0.01 ML SC SCH ×4 (09:36→23:41)
[2016-11-06] MEDS: Iron Complex Polysacch 150mg Cap PO SCH (09:36)
[2016-11-06] MEDS: Levothyroxine 125 MCG TAB PO SCH (09:36)
[2016-11-06] MEDS: Insulin Lispro (humaLOG) LOW Coverage SC SCH ×4 (09:37→23:42)
[2016-11-06] MEDS: Nystatin-Triamcinolone Ointment(30 gm) TOP SCH ×2 (09:40→18:03)
[2016-11-06] MEDS: Nystatin 100,000 Units/gm Topical Pow(15 gm) TOP SCH (09:40)
--- NOTE | 2016-11-06 10:29 | PN ---
DATE: 11/06/2016 SUBJECTIVE: The patient is seen in bed in no acute distress. No fevers and chills. PHYSICAL EXAMINATION: VITAL SIGNS: Temperature 98, blood pressure 120/60, respiratory rate 18, and heart rate 112. HEENT: Unremarkable. NECK: Supple. HEART: Normal S1 and S2. LUNGS: Decreased breath sounds. ABDOMEN: Soft and nontender. LABORATORY DATA: Reveals white count of 12,200, hemoglobin of 9, and platelets of 301. Coagulation is noted. Chemistry reveals a BUN of 72, creatinine of 1.4. LFTs are elevated, but improving. Microbiology reveals cultures are negative. MEDICATIONS: Review of medications revealed the patient to be off of antibiotics. Dr. Moran's note is reviewed and Dr. Kal Russell's note is reviewed. ASSESSMENT AND PLAN: She is a 51-year-old female this morning in room 260, bed 2, with systemic inflammatory response syndrome, status post hypoxic ventilatory dependent respiratory failure, bilateral lower lobe healthcare-associated pneumonia, and hypoglycemia hyperosmolar state with acute pancreatitis now with systemic inflammatory response syndrome, currently off of antibiotics, the patient was on Solu Cortef with currently the patient's white count is down to 12,200 at this point, off of antibiotics, afebrile, LFTs improving. We will follow with you. She is at risk for developing nosocomial infection. Yehuda Valentino MD
--- NOTE | 2016-11-06 11:06 | CP.PCM.PN ---
<SAROJ FLYNN - Last Filed: 11/06/16 11:49> Subjective - Date & Time of Evaluation Date of Evaluation: 11/06/16 Time of Evaluation: 09:30 - Subjective Subjective: patient was seen and examined bedside. continues to complain about abdominal pain, but states that her swelling has improved. notices some shortness of breath and would like to be assisted out of bed to chair. denies cp, n/v/d, burning with urination, fevers, dizziness or headaches. Objective - Vital Signs/Intake and Output Vital Signs (last 24 hours): Temp Pulse Resp BP Pulse Ox 98.2 F 112 H 18 122/64 97 11/06/16 06:00 11/06/16 06:00 11/06/16 06:00 11/06/16 06:00 11/06/16 06:00 Intake and Output: 11/06/16 11/06/16 06:59 18:59 Intake Total 820 Output Total 1200 Balance -380 - Medications Medications: Current Medications Apixaban (Eliquis) 2.5 mg PO BID [facility] PRN Reason: Protocol Last Admin: 11/06/16 09:35 Dose: 2.5 mg Bacitracin (Bacitracin) 0 gm TOP BID [facility] Last Admin: 11/06/16 09:34 Dose: 1 applic Digoxin (Lanoxin) 0.125 mg PO 1400 [facility] Last Admin: 11/05/16 14:10 Dose: 0.125 mg Dobutamine HCl/Dextrose (Dobutamine/Dextrose 5% 500mg/250ml) 500 mg in 250 mls @ 6.021 mls/hr IV .Q24H PRN; Protocol; 2.5 MCG/KG/MIN PRN Reason: TITRATE PER PROTOCOL Last Admin: 11/05/16 11:38 Dose: 6.021 mls/hr Insulin Detemir (Levemir) 25 unit SC DAILY [facility] Insulin Human Lispro (Humalog) 5 units SC ACHS [facility] Last Admin: 11/06/16 09:36 Dose: 5 units Insulin Human Lispro (Humalog Low) 0 units SC ACHS [facility] PRN Reason: Protocol Last Admin: 11/06/16 09:37 Dose: 3 units Lactobacillus Acidophilus (Bacid Acidophilus) 1 cap PO BID [facility] Last Admin: 11/06/16 09:34 Dose: Not Given Levothyroxine Sodium (Synthroid) 125 mcg PO ACB [facility] Last Admin: 11/06/16 09:36 Dose: 125 mcg Nystatin (Nystop Topical Powder) 0 gm TOP DAILY [facility] Last Admin: 11/06/16 09:40 Dose: 1 applic Nystatin/Triamcinolone Acetonide (Nystatin/Triamcinolone Ointment) 0 gm TOP BID [facility] Last Admin: 11/06/16 09:40 Dose: 1 applic Pantoprazole Sodium (Protonix Ec Tab) 40 mg PO 0600 [facility] Last Admin: 11/06/16 05:41 Dose: 40 mg Polysaccharide Iron Complex (Ferrex-150) 150 mg PO DAILY [facility] Last Admin: 11/06/16 09:36 Dose: 150 mg Torsemide (Demadex) 20 mg PO DAILY [facility] Last Admin: 11/06/16 09:39 Dose: 20 mg Tramadol HCl (Ultram) 50 mg PO TID PRN PRN Reason: Pain, moderate (4-7) Last Admin: 11/05/16 20:20 Dose: 50 mg - Labs Labs: 11/06/16 06:00 11/06/16 06:00 PT 12.0 Seconds (9.9-11.8) H 10/20/16 09:29 INR 1.11 (0.93-1.08) H 10/20/16 09:29 APTT 27.8 Seconds (23.7-30.8) 10/20/16 09:29 - Constitutional Appears: Well, Non-toxic, No Acute Distress, Chronically Ill - Head Exam Head Exam: ATRAUMATIC, NORMAL INSPECTION, NORMOCEPHALIC - Eye Exam Eye Exam: EOMI, Normal appearance, PERRL. absent: Conjunctival injection, Nystagmus, Periorbital swelling, Scleral icterus Pupil Exam: NORMAL ACCOMODATION - ENT Exam ENT Exam: Mucous Membranes Moist, Normal Exam - Neck Exam Neck Exam: Normal Inspection - Respiratory Exam Respiratory Exam: Decreased Breath Sounds (due to position- supine in bed), NORMAL BREATHING PATTERN. absent: Accessory Muscle Use, Chest Wall Tenderness, Rales, Rhonchi, Wheezes, Respiratory Distress, Stridor - Cardiovascular Exam Cardiovascular Exam: RRR, +S1, +S2. absent: Gallop, JVD, Rubs, Murmur - GI/Abdominal Exam GI & Abdominal Exam: Soft, Normal Bowel Sounds. absent: Distended, Guarding, Tenderness, Rebound Additional comments: obese body habitus - Extremities Exam Extremities Exam: Pedal Edema (3+), Tenderness (generalized ) Additional comments: erythematous and warm - Neurological Exam Neurological Exam: Alert, Awake, Oriented x3 - Psychiatric Exam Psychiatric exam: Normal Affect, Normal Mood - Skin Skin Exam: Erythema (b/l LE), Normal Color, Warm - Additional Findings Additional findings: RIJ in place Assessment and Plan - Assessment and Plan (Free Text) Assessment: 51 y/o female with PMHx of DM2, CHF (EF 30% in 10/2016), HTN, chronic pulmonary effusion, HTN, DVT, PE, hypothyroidism, PSH of lap mitchell in 05/2016 and psych hx of schizophrenia and Bipolar disorder presented to the ED with complaints of abdominal pain. ECHO (10/18): EF 30%. Patient was in ICU, then extubated on 10/15, and was on tele for closer monitoring. HHS improved, and decreasing anasarca. s /p 7 days of Doxycycline and 6 days of Meronepem. Pt was in severe septic shock and was transferred to ICU. Pt was intubated due to acidosis and self-extubated on day 1 ICU. s/p ICU 4days and s/p 3day Levophed, s/p 4 days Merrem. Currently on Tele day 4 Plan: 1. Septic shock (tachycardia), likely a/w cardiogenic cause - still tachycardia, likely due to pain vs dobutamine - hypothermia improved, Sony huggers PRN - hypotension improving off pressors, c/w dobutamine 2.5 PRN and Digoxin 0.125 - cardio consulted, recs appreciated - Pulm consulted, recs appreciated 2. Abdominal pain likely due to edema/anasarca and CHF state - pain control: dilaudid 0.5 PRN, tramadol PRN - fluid restrictions - daily weights unreliable - GI consulted, recs appreciated 3. Hypothermia, improved - pt has Sony Huggers PRN 4. Leukocytosis, improving, likely was 2/2 steroid use in ICU - blood cx and urine cx negative - s/p Merrem - ID consulted, recs appreciated 5. hypotension improving, likely due to sepsis - improving off pressors - Dobutamine 2.5 PRN 6. OLLIE likely due to shock (prerenal in nature due to low intravascular volume) - Cr improving on Torsemide - hold diuretics until sepsis resolves and BP stabilizies, per nephro - I/O 800/1200cc - nephro consulted, recs appreciated 7. Transaminitis - likely 2/2 shocked liver - AST/ALT trending down - avoid hepatic toxins 8. Hx UTI 10/19 grew VRE (contact precautions) - UCx currently negative - pickens in place (clear yellow urine) - Nystatin powder/ointment and Bacitracin for jr-vaginal yeast infection - ID consulted, recs appreciated 9. Hyponatremia likely due to CHF state - tolvaptan 30mg - renal f/u 10. DM2, HONK resolved - increased Levemir 25u - c/w Lispro 5u, and ISS - accuchecks QACHS 12. Hypothyroid - Synthroid 125mcg PO Dispo: TCU once patient is stable, FULL code PTX/Eliquis Patient was seen, discussed and evaluated with attending, Dr. Dean Flynn, PGY1 <Anne Marie Moran - Last Filed: 11/06/16 14:32> Objective - Vital Signs/Intake and Output Vital Signs (last 24 hours): Temp Pulse Resp BP Pulse Ox 97.1 F L 111 H 18 130/76 97 11/06/16 12:00 11/06/16 12:00 11/06/16 12:00 11/06/16 12:00 11/06/16 06:00 Intake and Output: 11/06/16 11/06/16 06:59 18:59 Intake Total 820 Output Total 1200 Balance -380 - Medications Medications: Current Medications Apixaban (Eliquis) 2.5 mg PO BID [facility] PRN Reason: Protocol Last Admin: 11/06/16 09:35 Dose: 2.5 mg Bacitracin (Bacitracin) 0 gm TOP BID [facility] Last Admin: 11/06/16 09:34 Dose: 1 applic Digoxin (Lanoxin) 0.125 mg PO 1400 [facility] Last Admin: 11/05/16 14:10 Dose: 0.125 mg Furosemide (Lasix) 40 mg IVP ONCE ONE Stop: 11/06/16 14:28 Dobutamine HCl/Dextrose (Dobutamine/Dextrose 5% 500mg/250ml) 500 mg in 250 mls @ 12.492 mls/hr IV .Q20H1M PRN; Protocol; 5 MCG/KG/MIN PRN Reason: TITRATE PER PROTOCOL Insulin Detemir (Levemir) 25 unit SC DAILY [facility] Insulin Human Lispro (Humalog) 5 units SC ACHS [facility] Last Admin: 11/06/16 11:30 Dose: 5 units Insulin Human Lispro (Humalog Low) 0 units SC ACHS [facility] PRN Reason: Protocol Last Admin: 11/06/16 11:31 Dose: 5 units Lactobacillus Acidophilus (Bacid Acidophilus) 1 cap PO BID [facility] Last Admin: 11/06/16 09:34 Dose: Not Given Levothyroxine Sodium (Synthroid) 125 mcg PO ACB [facility] Last Admin: 11/06/16 09:36 Dose: 125 mcg Nystatin (Nystop Topical Powder) 0 gm TOP DAILY [facility] Last Admin: 11/06/16 09:40 Dose: 1 applic Nystatin/Triamcinolone Acetonide (Nystatin/Triamcinolone Ointment) 0 gm TOP BID [facility] Last Admin: 11/06/16 09:40 Dose: 1 applic Pantoprazole Sodium (Protonix Ec Tab) 40 mg PO 0600 [facility] Last Admin: 11/06/16 05:41 Dose: 40 mg Polysaccharide Iron Complex (Ferrex-150) 150 mg PO DAILY [facility] Last Admin: 11/06/16 09:36 Dose: 150 mg Torsemide (Demadex) 20 mg PO Q12H [facility] Tramadol HCl (Ultram) 50 mg PO TID PRN PRN Reason: Pain, moderate (4-7) Last Admin: 11/05/16 20:20 Dose: 50 mg - Labs Labs: 11/06/16 06:00 11/06/16 06:00 PT 12.0 Seconds (9.9-11.8) H 10/20/16 09:29 INR 1.11 (0.93-1.08) H 10/20/16 09:29 APTT 27.8 Seconds (23.7-30.8) 10/20/16 09:29 Attending/Attestation - Attestation I have personally seen and examined this patient.: Yes I have fully participated in the care of the patient.: Yes I have reviewed all pertinent clinical information, including history, physical exam and plan: Yes Notes (Text): 11/06/16 14:31 Patient seen and examined at bedside. labs, vitas,orders and consultations noted. There is some improvement in her upper extremity swelling today, reports good appetite. Lower extremity erythema improving. Denies any new complaints. Antibiotics discontinued. Renal function improving, fluid restriction in place and she remains in - ve balance and Tolvaptan regimen continued by renal and might need higher dose. Sodium levels remain low but stable( multifactorial). Continue inotropic support with dobutamine, cardiology follow up ongoing. Meropenem discontinued. Agree with the plan as outlined by the resident.
--- NOTE | 2016-11-06 11:29 | CP.PCM.PN ---
Subjective - Date & Time of Evaluation Date of Evaluation: 11/06/16 Time of Evaluation: 11:24 - Subjective Subjective: Patient denies any improvement in breathing; tolerating diet; insisting on getting out of bed and into chair; Objective - Vital Signs/Intake and Output Vital Signs (last 24 hours): Temp Pulse Resp BP Pulse Ox 98.2 F 112 H 18 122/64 97 11/06/16 06:00 11/06/16 06:00 11/06/16 06:00 11/06/16 06:00 11/06/16 06:00 Intake and Output: 11/06/16 11/06/16 06:59 18:59 Intake Total 820 Output Total 1200 Balance -380 - Medications Medications: Current Medications Apixaban (Eliquis) 2.5 mg PO BID [facility] PRN Reason: Protocol Last Admin: 11/06/16 09:35 Dose: 2.5 mg Bacitracin (Bacitracin) 0 gm TOP BID [facility] Last Admin: 11/06/16 09:34 Dose: 1 applic Digoxin (Lanoxin) 0.125 mg PO 1400 [facility] Last Admin: 11/05/16 14:10 Dose: 0.125 mg Dobutamine HCl/Dextrose (Dobutamine/Dextrose 5% 500mg/250ml) 500 mg in 250 mls @ 6.021 mls/hr IV .Q24H PRN; Protocol; 2.5 MCG/KG/MIN PRN Reason: TITRATE PER PROTOCOL Last Admin: 11/05/16 11:38 Dose: 6.021 mls/hr Insulin Detemir (Levemir) 25 unit SC DAILY [facility] Insulin Human Lispro (Humalog) 5 units SC ACHS [facility] Last Admin: 11/06/16 09:36 Dose: 5 units Insulin Human Lispro (Humalog Low) 0 units SC ACHS [facility] PRN Reason: Protocol Last Admin: 11/06/16 09:37 Dose: 3 units Lactobacillus Acidophilus (Bacid Acidophilus) 1 cap PO BID [facility] Last Admin: 11/06/16 09:34 Dose: Not Given Levothyroxine Sodium (Synthroid) 125 mcg PO ACB [facility] Last Admin: 11/06/16 09:36 Dose: 125 mcg Nystatin (Nystop Topical Powder) 0 gm TOP DAILY [facility] Last Admin: 11/06/16 09:40 Dose: 1 applic Nystatin/Triamcinolone Acetonide (Nystatin/Triamcinolone Ointment) 0 gm TOP BID [facility] Last Admin: 11/06/16 09:40 Dose: 1 applic Pantoprazole Sodium (Protonix Ec Tab) 40 mg PO 0600 [facility] Last Admin: 11/06/16 05:41 Dose: 40 mg Polysaccharide Iron Complex (Ferrex-150) 150 mg PO DAILY [facility] Last Admin: 11/06/16 09:36 Dose: 150 mg Tolvaptan (Samsca) 30 mg PO ONCE ONE Stop: 11/06/16 11:24 Torsemide (Demadex) 20 mg PO DAILY [facility] Last Admin: 11/06/16 09:39 Dose: 20 mg Tramadol HCl (Ultram) 50 mg PO TID PRN PRN Reason: Pain, moderate (4-7) Last Admin: 11/05/16 20:20 Dose: 50 mg - Labs Labs: 11/06/16 06:00 11/06/16 06:00 PT 12.0 Seconds (9.9-11.8) H 10/20/16 09:29 INR 1.11 (0.93-1.08) H 10/20/16 09:29 APTT 27.8 Seconds (23.7-30.8) 10/20/16 09:29 - Constitutional Appears: Non-toxic, No Acute Distress - Head Exam Head Exam: NORMAL INSPECTION - Eye Exam Eye Exam: Normal appearance - ENT Exam ENT Exam: Mucous Membranes Moist - Respiratory Exam Respiratory Exam: NORMAL BREATHING PATTERN. absent: Wheezes Additional comments: Decreased basal breath sounds; - Cardiovascular Exam Cardiovascular Exam: Tachycardia, Gallop Additional comments: S3 present; - GI/Abdominal Exam GI & Abdominal Exam: Distended, Soft, Tenderness - Exam Additional comments: pickens in place; - Extremities Exam Additional comments: Markedly edematous legs, somewhat improved; - Neurological Exam Neurological Exam: Alert, Awake - Skin Skin Exam: Normal Color, Warm. absent: Cyanosis Assessment and Plan (1) Shock Assessment & Plan: Etiology still unclear but suspect cardiogenic component with negative sepsis workup and improvement on inotropic agent; discussed with covering superintendent of schools today who feels patient may be preload dependent due to component of pulmonary htn; will avoid aggressive diuresis, continue torsemide 20 mg once daily; Status: Resolved (2) Acute renal failure Assessment & Plan: Cardiorenal etiology, improving with inotropic support and diuresis; continue same, diuresis will help decrease venous congestion and further improve cardiac/ renal status; Status: Acute (3) Hyponatremia Assessment & Plan: Minimal improvement with medium dose of tolvaptan; will recheck Ur osm, if not decreased, may need higher tolvaptan dose; 1500 cc fluid restriction; Status: Acute (4) CHF (congestive heart failure) Assessment & Plan: Severely decompensated systolic CHF w/ MR; on inotropic support, tolerating moderately dosed diuretics with good BP lately and improvement in renal function indicative of improved end organ perfusion; continue same; need to consider mrp controller management (ie. home milrinone, transfer to heart failure center?); f/u w/ cardiology; Status: Acute (5) Anemia Assessment & Plan: Secondary to iron deficiency and acute/chronic illness, continue PO iron; Status: Acute
[2016-11-06] MEDS ORDERED: DOBUTamine 500mg/250ml D5W 500 MG/250 ML BAG IV PRN (11:47)
--- NOTE | 2016-11-06 12:26 | PN ---
DATE: 11/06/2016 SUBJECTIVE: The patient complaints of fatigue, still complaining of shortness of breath. PHYSICAL EXAMINATION: VITAL SIGNS: Blood pressure is 122/64, heart rate is sinus tachycardia at 120. NECK: Negative JVD. LUNGS: Decreased breath sounds with crackles at the basis. HEART: Reveal S1 and S2. EXTREMITIES: The patient has total body anasarca. LABORATORY DATA: Hemoglobin is 9.2. Chemistries; BUN and creatinine are 72 and 1.4. IMPRESSION: 1. Chronic dyspnea. 2. Pulmonary hypertension. 3. End-state dilated cardiomyopathy. 4. Significant mitral regurgitation. 5. Diabetes mellitus. 6. Body anasarca. PLAN: Given these findings, we will give her a trial of higher doses of IV dobutamine. I will continue the diuresis. Her pressure is currently better now that we have tapered off many of the other drugs. Kal Russell MD
[2016-11-06] MEDS: DOBUTamine 500mg/250ml D5W 500 MG/250 ML BAG IV PRN (12:30)
[2016-11-06] MEDS: Digoxin 125 mcg (0.125 mg) Tab PO SCH (14:38)
--- NOTE | 2016-11-06 21:20 | PN ---
DATE OF SERVICE: 10/23/2016 Dr. Javon Arroyo dictating on behalf of Dr. Servando Sidhu who was following the patient before he went on vacation. He will return tomorrow. SUBJECTIVE: After initially seeing the patient on 10/23/2016 a followup note is dictated today. At that particular time point, the patient had multiple complaints which included septic shock with cardiomyopathy, mitral valve regurgitation, hepatic low-flow phenomenon, elevation of LFTs, being seen by multiple consultants. I reviewed the case with both Dr. Sidhu as well as Dr. Moran. Elevation of LFTs including alkaline phosphatase of over 1100 with AST/ ALT ratio 327/682. The patient has made progress since previously evaluated. She is currently out of ICU and the patient was eating a meal at the time of evaluation this afternoon. The patient denies abdominal pain per se. She looks significantly better. She still complains about abdominal distention. Shortness of breath is also an issue. The patient denied any hematemesis or rectal bleeding. The abdominal discomfort is extremely mild and located in the suprapubic area. She denied any periumbilical or epigastric discomfort. PHYSICAL EXAMINATION: VITAL SIGNS: I reviewed this patient's vital signs. HEENT: Noncontributory. LUNGS: Decreased breath sounds basilar bilaterally. HEART: Regular rhythm. ABDOMEN: Protuberant, soft, doughy. There was no tenderness elicited in the periumbilical area, epigastric, right upper, left upper quadrants, left lower, right lower quadrants as well. There is only very mild discomfort elicited over the suprapubic area. There are regular bowel sounds. LABORATORY DATA: I reviewed this patient's laboratory data of the past several days. She had a dramatic shift in the white count from roughly 27,000 on 11/01/2016 down to level of 12,000 today. The H and H is relatively stable on a range of 9.5/27. Chemistry indicates an improvement in her LFTs with AST and ALT ratio 117:332 with alkaline phosphatase of 624. Note, that I reviewed the CT results from 10/31/2016, which was consistent with substantial subcutaneous edema that is anasarca with minimal ascites. Note that there was bilateral pleural effusions at that time point including a consolidation of right base. The bowel was for the most part noncontributory. ASSESSMENT AND PLAN: This is a 51-year-old white female admitted with multiple complaints. Diagnoses to date include mitral regurgitation, pulmonary hypertension, renal insufficiency, diabetes, left ventricular systolic dysfunction, cardiomyopathy, sepsis, hyperosmolar state, anasarca, pleural effusions. Note that I reviewed the notes of Dr. Kal Russell as well as all current consultants. At this particular time point, the patient seems to be making progress on the current therapeutic regimen. Not complaining about abdominal pain. The abdominal distention is due to subcutaneous edema, not ascites according to the CT scan. Laboratory criteria especially the CBC as well as chemistry values as transaminase ratio is improving slowly, but surely. Not much to add at this point in time. Dr. Servando Sidhu will be back from vacation tomorrow and he can resume coverage of this patient. Therefore, as of tomorrow may address any questions to Dr. Sidhu's attention. Javon Arroyo DO, PhD [facility]INA
[2016-11-07] MEDS: DOBUTamine 500mg/250ml D5W 500 MG/250 ML BAG IV PRN ×2 (00:32→21:15)
[2016-11-07] MEDS: Pantoprazole 40 mg EC Tab PO SCH (06:14)
[2016-11-07 06:43] LABS: HEMOGLOBIN 8.5 gm/dL (12.0-16.0); MEAN CELL VOLUME 75.9 fL (80.0-105.0); MEAN CORPUSCULAR HEMOGLOBIN 24.6 pg (25.0-35.0); MEAN CORPUSCULAR HGB CONC 32.4 g/dl (31.0-37.0); MEAN PLATELET VOLUME 9.4 fl (7.0-11.0); PLATELET COUNT 270 10^3/uL (120.0-450.0); RBC 3.45 10^6/uL (3.5-6.1); RED CELL DISTRIBUTION WIDTH 20.8 % (11.5-14.5)
[2016-11-07 06:45] LABS: ALB/GLOB RATIO 0.9 (1.1-1.8); ALBUMIN 2.7 g/dL (3.0-4.8); CALCIUM 8.9 mg/dL (8.4-10.5)
[2016-11-07] MEDS: Insulin Lispro 1 UNITS/0.01 ML SC SCH ×4 (08:18→21:13)
[2016-11-07] MEDS: Insulin Lispro (humaLOG) LOW Coverage SC SCH ×4 (08:19→21:14)
[2016-11-07] MEDS: Levothyroxine 125 MCG TAB PO SCH (08:20)
[2016-11-07 08:33] LABS: ANISOCYTOSIS SLIGHT; CORRECTED WBC 10.3 K/mm3 (4.5-11.0); LYMPHOCYTE 8 % (22.0-35.0); MICROCYTOSIS 1+; NEUTROPHIL 92 % (50.0-70.0); NUCLEATED RED BLOOD CELL 7 %
[2016-11-07 08:34] LABS: HYPOCHROMIA 2+; OVALOCYTES SLIGHT; PLATELET ESTIMATE NORMAL (NORMAL); POIKILOCYTOSIS SLIGHT; TARGET CELLS SLIGHT; TEAR DROP CELLS SLIGHT
[2016-11-07] MEDS ORDERED: Potassium Chloride 20 mEq ER Tab PO ONE (08:49)
[2016-11-07] MEDS: Lactobacillus Acidophilus 500 MU Cap PO SCH ×2 (10:24→17:10)
[2016-11-07] MEDS: Iron Complex Polysacch 150mg Cap PO SCH (10:25)
[2016-11-07] MEDS: Insulin Detemir 100 units/ml Vial (Levemir) SC SCH (10:25)
[2016-11-07] MEDS: Bacitracin Ointment 30 GM TUBE TOP SCH ×2 (10:26→17:16)
[2016-11-07] MEDS: Nystatin-Triamcinolone Ointment(30 gm) TOP SCH ×2 (10:26→17:16)
[2016-11-07] MEDS: Nystatin 100,000 Units/gm Topical Pow(15 gm) TOP SCH (10:26)
--- NOTE | 2016-11-07 11:42 | CP.PCM.PN ---
<Gin Pires - Last Filed: 11/07/16 18:37> Subjective - Date & Time of Evaluation Date of Evaluation: 11/07/16 Time of Evaluation: 07:15 - Subjective Subjective: Patient seen and examined at bedside. Per nursing no acute events overnight. Patient is doing well, sitting in chair. Reports breathing has improved. Tolerating diet. Offers no complaints at this time. Denies any headache, dizziness, CP, SOB, urinary symptoms. Objective - Vital Signs/Intake and Output Vital Signs (last 24 hours): Temp Pulse Resp BP Pulse Ox 97.8 F 109 H 18 119/59 L 98 11/07/16 06:00 11/07/16 06:00 11/07/16 06:00 11/07/16 06:00 11/07/16 06:00 Intake and Output: 11/07/16 11/07/16 06:59 18:59 Intake Total 777 Output Total 6700 Balance -5923 - Medications Medications: Current Medications Bacitracin (Bacitracin) 0 gm TOP BID [facility] Last Admin: 11/07/16 10:26 Dose: 1 applic Digoxin (Lanoxin) 0.125 mg PO 1400 [facility] Last Admin: 11/06/16 14:38 Dose: 0.125 mg Dobutamine HCl/Dextrose (Dobutamine/Dextrose 5% 500mg/250ml) 500 mg in 250 mls @ 12.492 mls/hr IV .Q20H1M PRN; Protocol; 5 MCG/KG/MIN PRN Reason: TITRATE PER PROTOCOL Last Admin: 11/07/16 00:32 Dose: 12.492 mls/hr Insulin Detemir (Levemir) 25 unit SC DAILY [facility] Last Admin: 11/07/16 10:25 Dose: 25 unit Insulin Human Lispro (Humalog) 5 units SC ACHS [facility] Last Admin: 11/07/16 08:18 Dose: 5 units Insulin Human Lispro (Humalog Low) 0 units SC ACHS [facility] PRN Reason: Protocol Last Admin: 11/07/16 08:19 Dose: 2 units Lactobacillus Acidophilus (Bacid Acidophilus) 1 cap PO BID [facility] Last Admin: 11/07/16 10:24 Dose: 1 cap Nystatin (Nystop Topical Powder) 0 gm TOP DAILY [facility] Last Admin: 11/07/16 10:26 Dose: 1 applic Nystatin/Triamcinolone Acetonide (Nystatin/Triamcinolone Ointment) 0 gm TOP BID [facility] Last Admin: 11/07/16 10:26 Dose: 1 applic Pantoprazole Sodium (Protonix Ec Tab) 40 mg PO 0600 [facility] Last Admin: 11/07/16 06:14 Dose: 40 mg Polysaccharide Iron Complex (Ferrex-150) 150 mg PO DAILY [facility] Last Admin: 11/07/16 10:25 Dose: 150 mg Spironolactone (Aldactone) 25 mg PO BID [facility] Last Admin: 11/07/16 10:24 Dose: 25 mg Torsemide (Demadex) 10 mg PO Q12H [facility] Last Admin: 11/07/16 10:25 Dose: 10 mg Tramadol HCl (Ultram) 50 mg PO TID PRN PRN Reason: Pain, moderate (4-7) Last Admin: 11/05/16 20:20 Dose: 50 mg - Labs Labs: 11/07/16 06:20 11/07/16 06:20 PT 12.0 Seconds (9.9-11.8) H 10/20/16 09:29 INR 1.11 (0.93-1.08) H 10/20/16 09:29 APTT 27.8 Seconds (23.7-30.8) 10/20/16 09:29 - Constitutional Appears: Well, Non-toxic, No Acute Distress - Head Exam Head Exam: ATRAUMATIC, NORMAL INSPECTION - Eye Exam Eye Exam: EOMI, Normal appearance - ENT Exam ENT Exam: Mucous Membranes Moist - Neck Exam Neck Exam: Full ROM - Respiratory Exam Respiratory Exam: Wheezes - Cardiovascular Exam Cardiovascular Exam: Tachycardia, +S1, +S2. absent: Murmur - GI/Abdominal Exam GI & Abdominal Exam: Distended, Soft, Tenderness (Mild tenderness to palpation) - Extremities Exam Extremities Exam: Pedal Edema. absent: Calf Tenderness Additional comments: LE swelling noted bilaterally, area of erythema demarcated with pen, no extension of erythema visualized on exam - Neurological Exam Neurological Exam: Alert, Awake, Oriented x3 - Psychiatric Exam Psychiatric exam: Normal Affect, Normal Mood - Skin Skin Exam: Normal Color, Warm Assessment and Plan - Assessment and Plan (Free Text) Assessment: 51 y/o female with PMHx of DM2, CHF (EF 30% in 10/2016), HTN, chronic pulmonary effusion, HTN, DVT, PE, hypothyroidism, PSH of lap mitchell in 05/2016 and psych hx of schizophrenia and Bipolar disorder presented to the ED with complaints of abdominal pain. ECHO (10/18): EF 30% Plan: 1. Septic shock (tachycardia), likely a/w cardiogenic cause - Continues to be tachycardic, likely due to pain vs dobutamine - Hypothermia resolved - Hypotension improving off pressors, c/w dobutamine 2.5 PRN and Digoxin 0.125 - Cardio on consult, recs appreciated - Pulm on consult, recs appreciated 2. Abdominal pain likely due to edema/anasarca and CHF state - Pain control - Tramadol prn - Fluid restriction - Daily weights unreliable - Monitor strict I/Os - GI consulted, recs appreciated 3. Hyponatremia - Improved, Na 133 - Aldactone 25mg BID - Monitor serial BMPs 4. Leukocytosis, resolved, likely was 2/2 steroid use in ICU - Blood cx and urine cx negative - s/p Merrem - ID consulted, recs appreciated 5. Hypotension improving, likely due to sepsis - BPs stable - Dobutamine 2.5 PRN - Per documentation, no good sales professional solution for patient largely due to psych history and inability to comply with meds; also recommended ruling out portal vein thrombosis as cause of marked edema; continuing with diuretics and inotropic support as above 6. OLLIE likely due to shock (prerenal in nature due to low intravascular volume) - Cr improving - Torsemide 10mg Q12H - I/O 777/6700 - Nephro on consult, f/u recommendations 7. Transaminitis - Likely 2/2 shocked liver - AST/ALT trending down - Avoid hepatic toxins - Continue to monitor 8. Hx UTI 10/19 grew VRE (contact precautions) - UCx currently negative - Witt in place (clear yellow urine) - Nystatin powder/ointment and Bacitracin for jr-vaginal yeast infection - ID consulted, recs appreciated 9. DM2, HONK resolved - Continue Levemir 25u - c/w Lispro 5u, and ISS - Accuchecks QACHS 10. Hypothyroid - Continue Synthroid 125mcg PO Dispo: TCU once patient is stable, FULL code Gin Pires PGY-1 <Katherine Barragan - Last Filed: 11/08/16 07:20> Objective - Vital Signs/Intake and Output Vital Signs (last 24 hours): Temp Pulse Resp BP Pulse Ox 97.9 F 120 H 18 132/71 99 11/08/16 05:27 11/08/16 05:27 11/08/16 05:27 11/08/16 05:27 11/08/16 05:27 Intake and Output: 11/08/16 11/08/16 06:59 18:59 Intake Total 430 Output Total 2800 Balance -2370 - Medications Medications: Current Medications Bacitracin (Bacitracin) 0 gm TOP BID [facility] Last Admin: 11/07/16 17:16 Dose: Not Given Digoxin (Lanoxin) 0.125 mg PO 1400 [facility] Last Admin: 11/07/16 13:43 Dose: 0.125 mg Dobutamine HCl/Dextrose (Dobutamine/Dextrose 5% 500mg/250ml) 500 mg in 250 mls @ 12.492 mls/hr IV .Q20H1M PRN; Protocol; 5 MCG/KG/MIN PRN Reason: TITRATE PER PROTOCOL Last Admin: 11/07/16 21:15 Dose: 12.492 mls/hr Iron Sucrose 100 mg/ Sodium (Chloride) 105 mls @ 210 mls/hr IVPB DAILY [facility] Stop: 11/17/16 21:50 Last Admin: 11/07/16 22:59 Dose: 210 mls/hr Insulin Detemir (Levemir) 25 unit SC DAILY [facility] Last Admin: 11/07/16 10:25 Dose: 25 unit Insulin Human Lispro (Humalog) 5 units SC ACHS [facility] Last Admin: 11/07/16 21:13 Dose: 5 units Insulin Human Lispro (Humalog Low) 0 units SC ACHS [facility] PRN Reason: Protocol Last Admin: 11/07/16 21:14 Dose: 2 units Lactobacillus Acidophilus (Bacid Acidophilus) 1 cap PO BID [facility] Last Admin: 11/07/16 17:10 Dose: 1 cap Nystatin (Nystop Topical Powder) 0 gm TOP DAILY [facility] Last Admin: 11/07/16 10:26 Dose: 1 applic Nystatin/Triamcinolone Acetonide (Nystatin/Triamcinolone Ointment) 0 gm TOP BID [facility] Last Admin: 11/07/16 17:16 Dose: Not Given Pantoprazole Sodium (Protonix Ec Tab) 40 mg PO 0600 [facility] Last Admin: 11/08/16 05:01 Dose: 40 mg Polysaccharide Iron Complex (Ferrex-150) 150 mg PO DAILY [facility] Last Admin: 11/07/16 10:25 Dose: 150 mg Spironolactone (Aldactone) 50 mg PO BID [facility] Torsemide (Demadex) 10 mg PO Q12H [facility] Last Admin: 11/07/16 20:52 Dose: 10 mg Tramadol HCl (Ultram) 50 mg PO TID PRN PRN Reason: Pain, moderate (4-7) Last Admin: 11/08/16 05:01 Dose: 50 mg - Labs Labs: 11/08/16 06:20 11/07/16 18:30 PT 12.0 Seconds (9.9-11.8) H 10/20/16 09:29 INR 1.11 (0.93-1.08) H 10/20/16 09:29 APTT 27.8 Seconds (23.7-30.8) 10/20/16 09:29 Attending/Attestation - Attestation I have personally seen and examined this patient.: Yes I have fully participated in the care of the patient.: Yes I have reviewed all pertinent clinical information, including history, physical exam and plan: Yes Notes (Text): 11/07/16 51 year old female with past medical history of CHF (EF 30%), hypertension, hypothyroidism, schizophrenia and bipolar who presented with abdominal pain. She was found to have anasarca, hyponatremia and sepsis. Currently she is still on dobutamine. Case was discussed with nephrology and cardiology regarding possibly weaning off if tolerated. Will obtain abdominal doppler ultrasound to rule out portal vein thrombosis. She is on torsemide and spironalactone. She is also being followed by ID and GI. She is s/p antibiotics. Sodium has improved. Renal function and LFTs also have improved. She is on levemir for diabetes and synthroid for hypothyroidism. Katherine Barragan MD Hospitalist.
--- NOTE | 2016-11-07 13:03 | PN ---
DATE: 11/07/2016 SUBJECTIVE: The patient is sitting in chair, comfortable. She denies any new abdominal pain, nausea, or vomiting. She is tolerating solid foods. PHYSICAL EXAMINATION: VITAL SIGNS: Reveal temperature of 97.8, blood pressure 119/59, heart rate of 109. ABDOMEN: Soft and nontender. LABORATORY DATA: Reveal hemoglobin 8.5, BUN 59, creatinine 1.2, potassium 3.5, blood sugar 222. AST down to 73, ALT down 236, alkaline phosphatase down to 525. IMPRESSION AND PLAN: A 51-year-old female with numerous comorbidities including congestive heart failure, pulmonary hypertension, diabetes mellitus, kidney disease, chronic abdominal pain, now with VRE in the urine, admitted to the hospital with septic shock, complicated by shock liver, rise in transaminases secondary to meropenem with improvement in her liver enzymes with negative hepatobiliary imaging on CAT scan. She has an ejection fraction of 30% on echocardiogram. Her long-term prognosis is poor. She is stable from a GI standpoint. There are no new GI recommendations. Her hepatitis serology was negative. She does have a history of alcohol abuse in the past. Servando Sidhu MD
[2016-11-07] MEDS: Digoxin 125 mcg (0.125 mg) Tab PO SCH (13:43)
--- NOTE | 2016-11-07 14:47 | CP.PCM.PN ---
Subjective - Date & Time of Evaluation Date of Evaluation: 11/07/16 Time of Evaluation: 09:40 - Subjective Subjective: Comfortable on a chair, not in distress, afebrile. Objective - Vital Signs/Intake and Output Vital Signs (last 24 hours): Temp Pulse Resp BP Pulse Ox 97.8 F 109 H 18 119/59 L 98 11/07/16 06:00 11/07/16 06:00 11/07/16 06:00 11/07/16 06:00 11/07/16 06:00 Intake and Output: 11/06/16 11/07/16 18:59 06:59 Intake Total 150 Balance 150 - Medications Medications: Current Medications Bacitracin (Bacitracin) 0 gm TOP BID [facility] Last Admin: 11/06/16 17:57 Dose: 1 applic Digoxin (Lanoxin) 0.125 mg PO 1400 [facility] Last Admin: 11/06/16 14:38 Dose: 0.125 mg Dobutamine HCl/Dextrose (Dobutamine/Dextrose 5% 500mg/250ml) 500 mg in 250 mls @ 12.492 mls/hr IV .Q20H1M PRN; Protocol; 5 MCG/KG/MIN PRN Reason: TITRATE PER PROTOCOL Last Admin: 11/07/16 00:32 Dose: 12.492 mls/hr Insulin Detemir (Levemir) 25 unit SC DAILY [facility] Insulin Human Lispro (Humalog) 5 units SC ACHS [facility] Last Admin: 11/06/16 23:41 Dose: 5 units Insulin Human Lispro (Humalog Low) 0 units SC ACHS [facility] PRN Reason: Protocol Last Admin: 11/06/16 23:42 Dose: 2 units Lactobacillus Acidophilus (Bacid Acidophilus) 1 cap PO BID [facility] Last Admin: 11/06/16 17:57 Dose: Not Given Levothyroxine Sodium (Synthroid) 125 mcg PO ACB [facility] Last Admin: 11/06/16 09:36 Dose: 125 mcg Nystatin (Nystop Topical Powder) 0 gm TOP DAILY [facility] Last Admin: 11/06/16 09:40 Dose: 1 applic Nystatin/Triamcinolone Acetonide (Nystatin/Triamcinolone Ointment) 0 gm TOP BID [facility] Last Admin: 11/06/16 18:03 Dose: 1 applic Pantoprazole Sodium (Protonix Ec Tab) 40 mg PO 0600 [facility] Last Admin: 11/07/16 06:14 Dose: 40 mg Polysaccharide Iron Complex (Ferrex-150) 150 mg PO DAILY [facility] Last Admin: 11/06/16 09:36 Dose: 150 mg Torsemide (Demadex) 20 mg PO Q12H [facility] Last Admin: 11/06/16 22:30 Dose: 20 mg Tramadol HCl (Ultram) 50 mg PO TID PRN PRN Reason: Pain, moderate (4-7) Last Admin: 11/05/16 20:20 Dose: 50 mg - Labs Labs: 11/06/16 06:00 11/06/16 06:00 PT 12.0 Seconds (9.9-11.8) H 10/20/16 09:29 INR 1.11 (0.93-1.08) H 10/20/16 09:29 APTT 27.8 Seconds (23.7-30.8) 10/20/16 09:29 - Constitutional Appears: Non-toxic, No Acute Distress - Head Exam Head Exam: NORMAL INSPECTION - Neck Exam Neck Exam: absent: Meningismus - Cardiovascular Exam Cardiovascular Exam: +S1, +S2 - GI/Abdominal Exam GI & Abdominal Exam: Soft. absent: Tenderness Assessment and Plan - Assessment and Plan (Free Text) Plan: Assessment S/P severe sepsis S/P hypoxic ventilator-dependent respiratory failure probably due to bilateral lower lobe healthcare-associated pneumonia with possible gram positive cocci, gram negative bacilli and/or atypical organisms, with associated hyperglycemic, hyperosmolar state with also acute pancreatitis, etiology to be determined - clinically improved and now off antibiotics - still with leukocytosis etiology still to de determined VRE in the urine, probably asymptomatic bacteriuria, continues to be asymptomatic chronic congestive heart failure due to cardiomyopathy elevated Alk phos and transaminases in a patient with pancreatitis as well as hepatic congestion history of healthcare-associated pneumonia, right middle lobe history of bilateral healthcare-associated pneumonia in this patient chronic heart failure S/P acute cholecystitis, S/P laparoscopic cholecystectomy CAD with chronic CHF DM HTN history of migraines bipolar disorder Plan will continue to monitor off antibiotics since she is at risk for hospital- acquired infections
[2016-11-07 15:56] LABS: ALB/GLOB RATIO 0.9 (1.1-1.8); ALBUMIN 2.6 g/dL (3.0-4.8); ALT/SGPT 201 U/L (7-56); AST/SGOT 70 U/L (15-39); BLOOD UREA NITROGEN 55 mg/dL (7-21); CALCIUM 8.5 mg/dL (8.4-10.5); GFR AFRICAN-AMERICAN > 60; GFR NON-AFRICAN AMERICAN 52
--- NOTE | 2016-11-07 17:40 | CP.PCM.PN ---
Subjective - Date & Time of Evaluation Date of Evaluation: 11/07/16 Time of Evaluation: 09:00 - Subjective Subjective: Reports breathing better; tolerating diet; Objective - Vital Signs/Intake and Output Vital Signs (last 24 hours): Temp Pulse Resp BP Pulse Ox 98.6 F 116 H 20 121/64 98 11/07/16 17:20 11/07/16 17:20 11/07/16 17:20 11/07/16 17:20 11/07/16 06:00 Intake and Output: 11/07/16 11/07/16 06:59 18:59 Intake Total 777 480 Output Total 6700 2600 Balance -2670 -5845 - Medications Medications: Current Medications Bacitracin (Bacitracin) 0 gm TOP BID [facility] Last Admin: 11/07/16 17:16 Dose: Not Given Digoxin (Lanoxin) 0.125 mg PO 1400 [facility] Last Admin: 11/07/16 13:43 Dose: 0.125 mg Dobutamine HCl/Dextrose (Dobutamine/Dextrose 5% 500mg/250ml) 500 mg in 250 mls @ 12.492 mls/hr IV .Q20H1M PRN; Protocol; 5 MCG/KG/MIN PRN Reason: TITRATE PER PROTOCOL Last Admin: 11/07/16 00:32 Dose: 12.492 mls/hr Insulin Detemir (Levemir) 25 unit SC DAILY [facility] Last Admin: 11/07/16 10:25 Dose: 25 unit Insulin Human Lispro (Humalog) 5 units SC [facility] Last Admin: 11/07/16 17:09 Dose: 5 units Insulin Human Lispro (Humalog Low) 0 units SC [facility] PRN Reason: Protocol Last Admin: 11/07/16 17:09 Dose: 3 units Lactobacillus Acidophilus (Bacid Acidophilus) 1 cap PO BID [facility] Last Admin: 11/07/16 17:10 Dose: 1 cap Nystatin (Nystop Topical Powder) 0 gm TOP DAILY [facility] Last Admin: 11/07/16 10:26 Dose: 1 applic Nystatin/Triamcinolone Acetonide (Nystatin/Triamcinolone Ointment) 0 gm TOP BID [facility] Last Admin: 11/07/16 17:16 Dose: Not Given Pantoprazole Sodium (Protonix Ec Tab) 40 mg PO 0600 [facility] Last Admin: 11/07/16 06:14 Dose: 40 mg Polysaccharide Iron Complex (Ferrex-150) 150 mg PO DAILY [facility] Last Admin: 11/07/16 10:25 Dose: 150 mg Spironolactone (Aldactone) 25 mg PO BID [facility] Last Admin: 11/07/16 17:10 Dose: 25 mg Torsemide (Demadex) 10 mg PO Q12H [facility] Last Admin: 11/07/16 10:25 Dose: 10 mg Tramadol HCl (Ultram) 50 mg PO TID PRN PRN Reason: Pain, moderate (4-7) Last Admin: 11/05/16 20:20 Dose: 50 mg - Labs Labs: 11/07/16 06:20 11/07/16 15:30 PT 12.0 Seconds (9.9-11.8) H 10/20/16 09:29 INR 1.11 (0.93-1.08) H 10/20/16 09:29 APTT 27.8 Seconds (23.7-30.8) 10/20/16 09:29 - Constitutional Appears: Non-toxic, No Acute Distress - Head Exam Head Exam: NORMAL INSPECTION - Eye Exam Eye Exam: Normal appearance - ENT Exam ENT Exam: Mucous Membranes Moist - Respiratory Exam Additional comments: Decreased basal breath sounds; - Cardiovascular Exam Cardiovascular Exam: REGULAR RHYTHM, +S1, +S2. absent: Gallop - GI/Abdominal Exam GI & Abdominal Exam: Soft. absent: Distended - Exam Additional comments: pickens in place; - Extremities Exam Additional comments: Severely edematous legs extending to thighs/lower abd; decreased pedal edema; - Neurological Exam Neurological Exam: Alert, Awake - Skin Skin Exam: Normal Color, Warm. absent: Cyanosis Assessment and Plan (1) Shock Status: Resolved (2) Acute renal failure Assessment & Plan: Cardiorenal etiology, resolving with inotropic support and diuresis; continuing the same although decreasing diuretic dose due to electrolyte abnormalities; Status: Acute (3) Hyponatremia Assessment & Plan: Resolved with tolvaptan; starting aldactone so serum Na may decrease, monitor; Status: Acute (4) CHF (congestive heart failure) Assessment & Plan: Acute severely decompensated systolic CHF w/ mitral regurg; has been benefitting from inotropic support and diuresis; however, still markedly edematous; per discussion with farm machinery mechanic today, no good termite control representative solution for patient largely due to psych history and inability to comply with meds; also recommended ruling out portal vein thrombosis as cause of marked edema; continuing with diuretics and inotropic support as above; adding aldactone 25 mg bid; Status: Acute (5) Anemia Assessment & Plan: Secondary to acute/chronic illness and iron deficiency; has been on PO iron; will re-check iron studies; Status: Acute (6) Metabolic alkalosis Assessment & Plan: Contraction alkalosis iatrogenically induced with aggressive diuresis; hypokalemia further driving it; -decreasing torsemide to 10 mg q12h -aggressive K replenishment -starting aldactone 25 mg bid -repeat bmp this evening Status: Acute
[2016-11-07 19:25] LABS: BLOOD UREA NITROGEN 54 mg/dL (7-21); CALCIUM 8.4 mg/dL (8.4-10.5); GFR AFRICAN-AMERICAN > 60; GFR NON-AFRICAN AMERICAN 52; MAGNESIUM 1.6 mg/dL (1.7-2.2)
[2016-11-07 19:49] LABS: TOTAL IRON BINDING CAPACITY 384 ug/dL (265-497)
[2016-11-07 19:52] LABS: % IRON SATURATION 3 % (20-55); IRON 10 ug/dL (45-180)
[2016-11-07 21:59] LABS: FERRITIN 57.6 ng/mL
--- NOTE | 2016-11-08 00:13 | PN ---
DATE: 11/07/2016 SUBJECTIVE: The patient required ICU admission last week, was intubated, but self extubated herself. The patient is still on Dobutrex infusion. She denies chest pain. Her breathing is comfortable on nasal O2. No reported ventricular arrhythmia. PHYSICAL EXAMINATION: VITAL SIGNS: Blood pressure 121/64, heart rate 116, temperature 98.6, respirations 20. HEENT: Pale conjunctivae. CHEST: Absent breath sounds over the bases. HEART: S1 and S2, regular. ABDOMEN: Soft. EXTREMITIES: A 3 to 4+ bilateral leg edema. LABORATORY DATA: Hemoglobin and hematocrit 8.5 and 26.2, white count 11.0, platelet count 170,000. Today's BUN and creatinine are 55 and 1.1, glucose 229, alkaline phosphatase is 201, ALT is 70. Chest x-ray 2 days ago revealed persistent bilateral pleural effusions with underlying atelectasis or infiltrate not excluded at both bases. Borderline CHF pattern. Lower extremity venous Doppler performed on 10/31/2016, no sonographic evidence of DVT in the visualized segments. ASSESSMENT: 1. Congestive heart failure. 2. Prerenal azotemia. 3. Hypoalbuminemia. 4. Rule out portal hypertension. 5. Rule out portal vein or hepatic vein thrombosis. RECOMMENDATIONS: Case was discussed at length with Dr. Barragan_ and Dr. French, and the patient will be maintained on Dobutrex infusion, _Aldactone_ 25 mg twice a day, Demadex at 10 mg orally twice a day, digoxin 0.125 mg daily. The patient will be either considered for subacute rehab or permanent usp placement once she is off Dobutrex. Cesar Kinney MD [facility]
[2016-11-08] MEDS: Pantoprazole 40 mg EC Tab PO SCH (05:01)
[2016-11-08 06:34] LABS: EOS # 0.2 (0.0-0.7); EOS % 1.7 % (1.5-5.0); GRAN # 10.89 (1.4-6.5); GRAN % 87.9 % (50.0-68.0); LYMPH # 0.9 (1.2-3.4); LYMPH % 7.3 % (22.0-35.0); MEAN CELL VOLUME 76.8 fL (80.0-105.0); MEAN CORPUSCULAR HEMOGLOBIN 24.5 pg (25.0-35.0); MEAN PLATELET VOLUME 9.2 fl (7.0-11.0); MONO # 0.4 (0.1-0.6); MONO % 3.1 % (1.0-6.0); PLATELET COUNT 259 10^3/uL (120.0-450.0); RBC 3.14 10^6/uL (3.5-6.1); RED CELL DISTRIBUTION WIDTH 21.1 % (11.5-14.5); WHITE BLOOD COUNT 12.4 10^3/ul (4.5-11.0)
[2016-11-08 06:37] LABS: HEMOGLOBIN 7.7 gm/dL (12.0-16.0)
[2016-11-08 07:31] LABS: ALBUMIN 2.4 g/dL (3.0-4.8); ALT/SGPT 154 U/L (7-56); AST/SGOT 56 U/L (15-39); BLOOD UREA NITROGEN 46 mg/dL (7-21); CALCIUM 8.1 mg/dL (8.4-10.5); GFR AFRICAN-AMERICAN > 60; GFR NON-AFRICAN AMERICAN 58; MAGNESIUM 1.5 mg/dL (1.7-2.2)
[2016-11-08] MEDS: Insulin Lispro 1 UNITS/0.01 ML SC SCH ×4 (08:13→21:39)
[2016-11-08] MEDS: Insulin Lispro (humaLOG) LOW Coverage SC SCH ×4 (08:14→21:34)
[2016-11-08] MEDS ORDERED: Magnesium Sulfate 2 GM in Sodium Chloride 0.9% 100 ML IVPB ONE (08:56)
[2016-11-08] MEDS: Lactobacillus Acidophilus 500 MU Cap PO SCH ×2 (10:41→18:14)
[2016-11-08] MEDS: Insulin Detemir 100 units/ml Vial (Levemir) SC SCH (10:43)
[2016-11-08] MEDS: Nystatin 100,000 Units/gm Topical Pow(15 gm) TOP SCH (10:50)
[2016-11-08] MEDS: Iron Complex Polysacch 150mg Cap PO SCH (10:50)
[2016-11-08] MEDS: Bacitracin Ointment 30 GM TUBE TOP SCH ×2 (10:51→17:19)
[2016-11-08] MEDS: Nystatin-Triamcinolone Ointment(30 gm) TOP SCH ×2 (10:52→17:18)
--- NOTE | 2016-11-08 11:50 | PN ---
DATE: 11/08/2016 SUBJECTIVE: The patient is lying in bed. She remains weak. She denies any abdominal pain, nausea, or vomiting. She is tolerating solid food. Her hemoglobin this morning is noted to dropped down to 7.7. The patient denies any overt GI bleeding such as melena, rectal bleeding or hematemesis. She denies hematuria. PHYSICAL EXAMINATION: VITAL SIGNS: Reveal temperature of 97.9, blood pressure 132/71, heart rate of 120. ABDOMEN: Soft and nontender. EXTREMITIES: Show 1+ pedal edema. LABORATORY DATA: Reveals white blood cell count 12.4, hemoglobin 7.7. Chemistries reveal potassium of 3.3, AST down to 57, Alt 64 alkaline phosphatase down to 376. IMPRESSION: A 52-year-old female with congestive heart failure, admitted to the hospital with septic shock from pneumonia, status post marked elevation in liver enzymes from shock liver as well as drug effect from possible on meropenem with liver enzymes trending downward with history of congestive heart failure with an ejection fraction of 30% as well as pulmonary hypertension. Now with anemia most likely secondary to chronic disease. Given her low ejection fraction, the patient will benefit from blood transfusion to increase her hematocrit between 27% and 30%. I have asked that she will be transfuse 1 unit of packed red blood cells. There are no plans for endoscopy or colonoscopy at this time. Servando Sidhu MD MTDD
--- NOTE | 2016-11-08 13:12 | CP.PCM.PN ---
<Gin Pires - Last Filed: 11/08/16 13:29> Subjective - Date & Time of Evaluation Date of Evaluation: 11/08/16 Time of Evaluation: 07:05 - Subjective Subjective: Patient seen and examined at bedside. Patient reports that breathing continues to improve. No other complaints at this time. Patient is tolerating diet. Witt in draining clear yellow urine. Abdominal pain slightly improved. Denies headaches, dizziness, SOB, CP, urinary symptoms, changes in bowel habits. Objective - Vital Signs/Intake and Output Vital Signs (last 24 hours): Temp Pulse Resp BP Pulse Ox 98.6 F 120 H 20 127/66 99 11/08/16 12:00 11/08/16 12:00 11/08/16 12:00 11/08/16 12:00 11/08/16 05:27 Intake and Output: 11/08/16 11/08/16 06:59 18:59 Intake Total 430 Output Total 2800 Balance -2370 - Medications Medications: Current Medications Bacitracin (Bacitracin) 0 gm TOP BID [facility] Last Admin: 11/08/16 10:51 Dose: 1 applic Digoxin (Lanoxin) 0.125 mg PO 1400 [facility] Last Admin: 11/07/16 13:43 Dose: 0.125 mg Dobutamine HCl/Dextrose (Dobutamine/Dextrose 5% 500mg/250ml) 500 mg in 250 mls @ 12.492 mls/hr IV .Q20H1M PRN; Protocol; 5 MCG/KG/MIN PRN Reason: TITRATE PER PROTOCOL Last Admin: 11/07/16 21:15 Dose: 12.492 mls/hr Iron Sucrose 100 mg/ Sodium (Chloride) 105 mls @ 210 mls/hr IVPB DAILY [facility] Stop: 11/17/16 21:50 Last Admin: 11/08/16 10:42 Dose: 210 mls/hr Insulin Detemir (Levemir) 25 unit SC DAILY [facility] Last Admin: 11/08/16 10:43 Dose: 25 unit Insulin Human Lispro (Humalog) 5 units SC ACHS [facility] Last Admin: 11/08/16 12:37 Dose: 5 units Insulin Human Lispro (Humalog Low) 0 units SC ACHS [facility] PRN Reason: Protocol Last Admin: 11/08/16 12:37 Dose: 3 units Lactobacillus Acidophilus (Bacid Acidophilus) 1 cap PO BID [facility] Last Admin: 11/08/16 10:41 Dose: 1 cap Nystatin (Nystop Topical Powder) 0 gm TOP DAILY [facility] Last Admin: 11/08/16 10:50 Dose: 1 applic Nystatin/Triamcinolone Acetonide (Nystatin/Triamcinolone Ointment) 0 gm TOP BID [facility] Last Admin: 11/08/16 10:52 Dose: 1 applic Pantoprazole Sodium (Protonix Ec Tab) 40 mg PO 0600 [facility] Last Admin: 11/08/16 05:01 Dose: 40 mg Polysaccharide Iron Complex (Ferrex-150) 150 mg PO DAILY [facility] Last Admin: 11/08/16 10:50 Dose: Not Given Spironolactone (Aldactone) 50 mg PO BID [facility] Last Admin: 11/08/16 10:42 Dose: 50 mg Torsemide (Demadex) 10 mg PO Q12H [facility] Last Admin: 11/08/16 08:14 Dose: 10 mg Tramadol HCl (Ultram) 50 mg PO TID PRN PRN Reason: Pain, moderate (4-7) Last Admin: 11/08/16 05:01 Dose: 50 mg - Labs Labs: 11/08/16 06:20 11/08/16 06:20 PT 12.0 Seconds (9.9-11.8) H 10/20/16 09:29 INR 1.11 (0.93-1.08) H 10/20/16 09:29 APTT 27.8 Seconds (23.7-30.8) 10/20/16 09:29 - Constitutional Appears: Well, Non-toxic - Head Exam Head Exam: ATRAUMATIC, NORMAL INSPECTION - Eye Exam Eye Exam: EOMI, Normal appearance Pupil Exam: NORMAL ACCOMODATION - ENT Exam ENT Exam: Mucous Membranes Moist - Neck Exam Neck Exam: Full ROM - Respiratory Exam Respiratory Exam: Decreased Breath Sounds, NORMAL BREATHING PATTERN. absent: Rhonchi, Wheezes, Respiratory Distress - Cardiovascular Exam Cardiovascular Exam: REGULAR RHYTHM, +S1, +S2 - GI/Abdominal Exam GI & Abdominal Exam: Distended, Soft, Tenderness. absent: Guarding, Rigid, Rebound - Extremities Exam Extremities Exam: Pedal Edema. absent: Calf Tenderness - Back Exam Back Exam: NORMAL INSPECTION - Neurological Exam Neurological Exam: Alert, CN II-XII Intact, Oriented x3 - Psychiatric Exam Psychiatric exam: Normal Affect, Normal Mood - Skin Skin Exam: Normal Color, Warm Assessment and Plan - Assessment and Plan (Free Text) Assessment: 51 y/o female with PMHx of DM2, CHF (EF 30% in 10/2016), HTN, chronic pulmonary effusion, HTN, DVT, PE, hypothyroidism, PSH of lap mitchell in 05/2016 and psych hx of schizophrenia and Bipolar disorder presented to the ED with complaints of abdominal pain. ECHO (10/18): EF 30% Plan: 1. Septic shock (tachycardia), likely a/w cardiogenic cause - Continues to be tachycardic, likely due to pain vs dobutamine - Hypothermia resolved - Hypotension improving off pressors, c/w dobutamine 2.5 PRN and Digoxin 0.125 - Cardio on consult, recs appreciated - Pulm on consult, recs appreciated 2. Abdominal pain likely due to edema/anasarca and CHF state - Pain control - Tramadol prn - Fluid restriction - Daily weights unreliable - Monitor strict I/Os - GI consulted, recs appreciated 3. Hyponatremia, resolved - Serum Na 132 - Aldactone 25mg BID - Monitor CMPs 4. Anemia (multifatorial) likely 2/2 chronic disease and Iron deficiency - Hgb today 7.7, No active signs of bleeding - Will transfuse 1 unit PRBCs - Patient started on IV Iron yesterday, continue - F/U post transfusion CBC - Spoke with GI who recommends transfusion, no plan for endoscopy/colonoscopy at this time 5. Leukocytosis - Blood cx and urine cx negative - s/p Merrem - Slight increase in WBC 11.0 -> 12.4 today - Will continue to monitor - ID consulted, recs appreciated 6. Hypotension improving, likely due to sepsis - BPs stable - Patient still on Dobutamine 2.5 PRN - Abdominal dopplers ordered to r/o portal vein thrombosis - Spoke with Case management about placement options as patients BPs does not tolerate being off of dobutamine, awaiting answer on what facility will be able to continue Dobutamine once patient is discharged 6. OLLIE likely due to shock (prerenal in nature due to low intravascular volume) - Cr improving - Torsemide held per nephro, as bicarb continues to increase, will f/u am CMP - I/O : 910/5400 - Nephro on consult, f/u recommendations 7. Transaminitis - Likely 2/2 shocked liver - AST/ALT continues to trend down - Avoid hepatic toxins - Continue to monitor 8. Hx UTI 10/19 grew VRE (contact precautions) - UCx currently negative - Witt in place (clear yellow urine) - Nystatin powder/ointment and Bacitracin for jr-vaginal yeast infection - ID consulted, recs appreciated 9. DM2, HONK resolved - Continue Levemir 25u - c/w Lispro 5u, and ISS - Accuchecks QACHS 10. Hypothyroid - Continue Synthroid 125mcg PO 11. Hypokalemia - Potassium 3.3 today - Repleated with 2 bags of KCL - F/U am CMP Gin Pires PGY-1 <Katherine Barragan A - Last Filed: 11/08/16 17:09> Objective - Vital Signs/Intake and Output Vital Signs (last 24 hours): Temp Pulse Resp BP Pulse Ox 98.6 F 120 H 20 127/66 99 11/08/16 12:00 11/08/16 12:00 11/08/16 12:00 11/08/16 12:00 11/08/16 05:27 Intake and Output: 11/08/16 11/08/16 06:59 18:59 Intake Total 430 720 Output Total 2800 2000 Balance -2370 -1280 - Medications Medications: Current Medications Bacitracin (Bacitracin) 0 gm TOP BID [facility] Last Admin: 11/08/16 10:51 Dose: 1 applic Digoxin (Lanoxin) 0.125 mg PO 1400 [facility] Last Admin: 11/08/16 15:31 Dose: 0.125 mg Iron Sucrose 100 mg/ Sodium (Chloride) 105 mls @ 210 mls/hr IVPB DAILY [facility] Stop: 11/17/16 21:50 Last Admin: 11/08/16 10:42 Dose: 210 mls/hr Dobutamine HCl/Dextrose (Dobutamine/Dextrose 5% 500mg/250ml) 500 mg in 250 mls @ 6.246 mls/hr IV .Q24H PRN; Protocol; 2.5 MCG/KG/MIN PRN Reason: TITRATE PER PROTOCOL Insulin Detemir (Levemir) 25 unit SC DAILY [facility] Last Admin: 11/08/16 10:43 Dose: 25 unit Insulin Human Lispro (Humalog) 5 units SC ACHS [facility] Last Admin: 11/08/16 12:37 Dose: 5 units Insulin Human Lispro (Humalog Low) 0 units SC [facility] PRN Reason: Protocol Last Admin: 11/08/16 12:37 Dose: 3 units Lactobacillus Acidophilus (Bacid Acidophilus) 1 cap PO BID [facility] Last Admin: 11/08/16 10:41 Dose: 1 cap Nystatin (Nystop Topical Powder) 0 gm TOP DAILY [facility] Last Admin: 11/08/16 10:50 Dose: 1 applic Nystatin/Triamcinolone Acetonide (Nystatin/Triamcinolone Ointment) 0 gm TOP BID [facility] Last Admin: 11/08/16 10:52 Dose: 1 applic Pantoprazole Sodium (Protonix Ec Tab) 40 mg PO 0600 [facility] Last Admin: 11/08/16 05:01 Dose: 40 mg Polysaccharide Iron Complex (Ferrex-150) 150 mg PO DAILY [facility] Last Admin: 11/08/16 10:50 Dose: Not Given Spironolactone (Aldactone) 50 mg PO BID [facility] Last Admin: 11/08/16 10:42 Dose: 50 mg Torsemide (Demadex) 10 mg PO Q12H [facility] Last Admin: 11/08/16 08:14 Dose: 10 mg Tramadol HCl (Ultram) 50 mg PO TID PRN PRN Reason: Pain, moderate (4-7) Last Admin: 11/08/16 05:01 Dose: 50 mg - Labs Labs: 11/08/16 06:20 11/08/16 06:20 PT 12.0 Seconds (9.9-11.8) H 10/20/16 09:29 INR 1.11 (0.93-1.08) H 10/20/16 09:29 APTT 27.8 Seconds (23.7-30.8) 10/20/16 09:29 Attending/Attestation - Attestation I have personally seen and examined this patient.: Yes I have fully participated in the care of the patient.: Yes I have reviewed all pertinent clinical information, including history, physical exam and plan: Yes Notes (Text): 11/08/16 17:06 51 year old female with past medical history of CHF (EF 30%), hypertension, hypothyroidism, schizophrenia and bipolar who presented with abdominal pain. She was found to have anasarca, hyponatremia and sepsis. Currently she is still on dobutamine. She is spironalactone and torsemide (dose held today per nephrology). She is pending abdominal doppler ultrasound to rule out portal vein thrombosis. She is on torsemide and spironalactone. Her sodium has improved. Renal function and LFTs also have improved. She has worsening anemia ; likely multifactorial. She is on iv iron and getting prbc transfusion as well. She is on levemir for diabetes and synthroid for hypothyroidism. Will replete and repeat magnesium/potassium. Katherine Barragan MD Hospitalist.
--- NOTE | 2016-11-08 13:54 | CP.PCM.PN ---
Subjective - Date & Time of Evaluation Date of Evaluation: 11/08/16 Time of Evaluation: 09:40 - Subjective Subjective: Comfortable on a chair, not in distress, afebrile. Objective - Vital Signs/Intake and Output Vital Signs (last 24 hours): Temp Pulse Resp BP Pulse Ox 97.9 F 120 H 18 132/71 99 11/08/16 05:27 11/08/16 05:27 11/08/16 05:27 11/08/16 05:27 11/08/16 05:27 Intake and Output: 11/08/16 11/08/16 06:59 18:59 Intake Total 430 Output Total 2800 Balance -2370 - Medications Medications: Current Medications Bacitracin (Bacitracin) 0 gm TOP BID [facility] Last Admin: 11/07/16 17:16 Dose: Not Given Digoxin (Lanoxin) 0.125 mg PO 1400 [facility] Last Admin: 11/07/16 13:43 Dose: 0.125 mg Dobutamine HCl/Dextrose (Dobutamine/Dextrose 5% 500mg/250ml) 500 mg in 250 mls @ 12.492 mls/hr IV .Q20H1M PRN; Protocol; 5 MCG/KG/MIN PRN Reason: TITRATE PER PROTOCOL Last Admin: 11/07/16 21:15 Dose: 12.492 mls/hr Iron Sucrose 100 mg/ Sodium (Chloride) 105 mls @ 210 mls/hr IVPB DAILY [facility] Stop: 11/17/16 21:50 Last Admin: 11/07/16 22:59 Dose: 210 mls/hr Magnesium Sulfate 2 gm/ Sodium (Chloride) 104 mls @ 102 mls/hr IVPB ONCE ONE Stop: 11/08/16 09:57 Potassium Chloride (Potassium Chloride 20 Meq/100 Ml) 20 meq in 100 mls @ 50 mls/hr IVPB Q2H [facility] Stop: 11/08/16 12:59 Insulin Detemir (Levemir) 25 unit SC DAILY [facility] Last Admin: 11/07/16 10:25 Dose: 25 unit Insulin Human Lispro (Humalog) 5 units SC ACHS [facility] Last Admin: 11/08/16 08:13 Dose: 5 units Insulin Human Lispro (Humalog Low) 0 units SC ACHS [facility] PRN Reason: Protocol Last Admin: 11/08/16 08:14 Dose: 1 units Lactobacillus Acidophilus (Bacid Acidophilus) 1 cap PO BID [facility] Last Admin: 11/07/16 17:10 Dose: 1 cap Nystatin (Nystop Topical Powder) 0 gm TOP DAILY [facility] Last Admin: 11/07/16 10:26 Dose: 1 applic Nystatin/Triamcinolone Acetonide (Nystatin/Triamcinolone Ointment) 0 gm TOP BID [facility] Last Admin: 11/07/16 17:16 Dose: Not Given Pantoprazole Sodium (Protonix Ec Tab) 40 mg PO 0600 [facility] Last Admin: 11/08/16 05:01 Dose: 40 mg Polysaccharide Iron Complex (Ferrex-150) 150 mg PO DAILY [facility] Last Admin: 11/07/16 10:25 Dose: 150 mg Spironolactone (Aldactone) 50 mg PO BID [facility] Torsemide (Demadex) 10 mg PO Q12H [facility] Last Admin: 11/08/16 08:14 Dose: 10 mg Tramadol HCl (Ultram) 50 mg PO TID PRN PRN Reason: Pain, moderate (4-7) Last Admin: 11/08/16 05:01 Dose: 50 mg - Labs Labs: 11/08/16 06:20 11/08/16 06:20 PT 12.0 Seconds (9.9-11.8) H 10/20/16 09:29 INR 1.11 (0.93-1.08) H 10/20/16 09:29 APTT 27.8 Seconds (23.7-30.8) 10/20/16 09:29 - Constitutional Appears: Non-toxic, No Acute Distress - Head Exam Head Exam: NORMAL INSPECTION - Neck Exam Neck Exam: absent: Meningismus - Respiratory Exam Respiratory Exam: Decreased Breath Sounds - Cardiovascular Exam Cardiovascular Exam: +S1, +S2 - GI/Abdominal Exam GI & Abdominal Exam: Soft. absent: Tenderness Assessment and Plan - Assessment and Plan (Free Text) Plan: Assessment S/P severe sepsis S/P hypoxic ventilator-dependent respiratory failure probably due to bilateral lower lobe healthcare-associated pneumonia with possible gram positive cocci, gram negative bacilli and/or atypical organisms, with associated hyperglycemic, hyperosmolar state with also acute pancreatitis, etiology to be determined - clinically improved and now off antibiotics - still with leukocytosis, probably reactive VRE in the urine, probably asymptomatic bacteriuria, continues to be asymptomatic chronic congestive heart failure due to cardiomyopathy elevated Alk phos and transaminases in a patient with pancreatitis as well as hepatic congestion history of healthcare-associated pneumonia, right middle lobe history of bilateral healthcare-associated pneumonia in this patient chronic heart failure S/P acute cholecystitis, S/P laparoscopic cholecystectomy CAD with chronic CHF DM HTN history of migraines bipolar disorder Plan will continue to monitor off antibiotics since she is at risk for healthcare- associated infections; will continue to monitor WBC count
[2016-11-08] MEDS: Digoxin 125 mcg (0.125 mg) Tab PO SCH (15:31)
[2016-11-08] MEDS: DOBUTamine 500mg/250ml D5W 500 MG/250 ML BAG IV PRN (17:15)
--- NOTE | 2016-11-08 17:38 | US ---
PROCEDURE: Portal vein duplex ultrasound. CLINICAL HISTORY: Deteriorating liver function. Evaluate for portal vein thrombosis. PHYSICIAN(S): Kal Peña M.D. FINDINGS: The extrahepatic portal vein is patent with hepatopetal flow. No sonographic evidence for thrombus or obstruction is seen. The 3 hepatic veins are visualized centrally and patent. The hepatic artery is patent. The spleen is not enlarged. There is no significant ascites in the upper abdomen. There appears to be a moderate right pleural effusion present IMPRESSION: 1. Patent portal vein with hepatopetal flow.
--- NOTE | 2016-11-08 19:22 | PN ---
DATE: 11/08/2016 SUBJECTIVE: The patient is comfortable in nasal O2. She denies any chest pain. PHYSICAL EXAMINATION: VITAL SIGNS: Blood pressure 127/66, heart rate 120, temperature 98.6, respiration 20. HEENT: Facial edema and pink conjunctiva. CHEST: Excellent breath sounds over the bases. HEART: S1 and S2 regular. ABDOMEN: Mild ascites. EXTREMITIES: 3+ pitting edema. LABORATORY DATA: Hemoglobin and hematocrit 7.7 and 24.1, white count and platelet count 12.4 and 259,000. sodium 132, potassium 3.2, chloride 87, CO2 39, glucose 163, BUN 46, and creatinine 1.0. Repeat abdominal ultrasound was performed today, but the report is still pending. ASSESSMENT: 1. Cardiomyopathy. 2. Rule out portal hypertension. 3. Hypoalbuminemia. 4. History of neck lymphoma. 5. Diabetes mellitus. CONDITIONS: Continue current infusion 2.5 mcg/kg/minute, Lenoxin 0.125 mg once a day, and Aldactone 150 mg once a day. I will follow up abdominal ultrasound report. Cesar Kinney MD
--- NOTE | 2016-11-08 21:34 | CP.PCM.PN ---
Objective - Vital Signs/Intake and Output Vital Signs (last 24 hours): Temp Pulse Resp BP Pulse Ox 98.5 F 117 H 20 128/69 99 11/08/16 20:20 11/08/16 20:20 11/08/16 20:20 11/08/16 20:20 11/08/16 05:27 Intake and Output: 11/08/16 11/09/16 18:59 06:59 Intake Total 740 375 Output Total 2000 Balance -1260 375 - Medications Medications: Current Medications Bacitracin (Bacitracin) 0 gm TOP BID [facility] Last Admin: 11/08/16 17:19 Dose: 1 applic Digoxin (Lanoxin) 0.125 mg PO 1400 [facility] Last Admin: 11/08/16 15:31 Dose: 0.125 mg Iron Sucrose 100 mg/ Sodium (Chloride) 105 mls @ 210 mls/hr IVPB DAILY [facility] Stop: 11/17/16 21:50 Last Admin: 11/08/16 10:42 Dose: 210 mls/hr Dobutamine HCl/Dextrose (Dobutamine/Dextrose 5% 500mg/250ml) 500 mg in 250 mls @ 6.246 mls/hr IV .Q24H PRN; Protocol; 2.5 MCG/KG/MIN PRN Reason: TITRATE PER PROTOCOL Last Admin: 11/08/16 17:15 Dose: 6.246 mls/hr Insulin Detemir (Levemir) 25 unit SC DAILY [facility] Last Admin: 11/08/16 10:43 Dose: 25 unit Insulin Human Lispro (Humalog) 5 units SC ACHS [facility] Last Admin: 11/08/16 17:59 Dose: 5 units Insulin Human Lispro (Humalog Low) 0 units SC ACHS [facility] PRN Reason: Protocol Last Admin: 11/08/16 17:59 Dose: 1 units Lactobacillus Acidophilus (Bacid Acidophilus) 1 cap PO BID [facility] Last Admin: 11/08/16 18:14 Dose: 1 cap Nystatin (Nystop Topical Powder) 0 gm TOP DAILY [facility] Last Admin: 11/08/16 10:50 Dose: 1 applic Nystatin/Triamcinolone Acetonide (Nystatin/Triamcinolone Ointment) 0 gm TOP BID [facility] Last Admin: 11/08/16 17:18 Dose: 1 applic Pantoprazole Sodium (Protonix Ec Tab) 40 mg PO 0600 [facility] Last Admin: 11/08/16 05:01 Dose: 40 mg Polysaccharide Iron Complex (Ferrex-150) 150 mg PO DAILY [facility] Last Admin: 11/08/16 10:50 Dose: Not Given Spironolactone (Aldactone) 50 mg PO BID [facility] Last Admin: 11/08/16 18:02 Dose: 50 mg Torsemide (Demadex) 10 mg PO Q12H [facility] Last Admin: 11/08/16 08:14 Dose: 10 mg Tramadol HCl (Ultram) 50 mg PO TID PRN PRN Reason: Pain, moderate (4-7) Last Admin: 11/08/16 05:01 Dose: 50 mg - Labs Labs: 11/08/16 06:20 11/08/16 06:20 PT 12.0 Seconds (9.9-11.8) H 10/20/16 09:29 INR 1.11 (0.93-1.08) H 10/20/16 09:29 APTT 27.8 Seconds (23.7-30.8) 10/20/16 09:29 Assessment and Plan (1) Shock Status: Resolved (2) Acute renal failure Status: Acute (3) Hyponatremia Status: Acute (4) CHF (congestive heart failure) Status: Acute (5) Anemia Status: Acute (6) Metabolic alkalosis Status: Acute
[2016-11-08] MEDS ORDERED: Potassium Chloride 20 mEq ER Tab PO ONE (21:35)
[2016-11-08 22:50] LABS: HEMOGLOBIN 8.7 gm/dL (12.0-16.0); MEAN CELL VOLUME 78.5 fL (80.0-105.0); MEAN CORPUSCULAR HEMOGLOBIN 25.7 pg (25.0-35.0); MEAN CORPUSCULAR HGB CONC 32.7 g/dl (31.0-37.0); MEAN PLATELET VOLUME 9.1 fl (7.0-11.0); RBC 3.39 10^6/uL (3.5-6.1); RED CELL DISTRIBUTION WIDTH 20.4 % (11.5-14.5); WHITE BLOOD COUNT 11.2 10^3/ul (4.5-11.0)
[2016-11-09] MEDS: Pantoprazole 40 mg EC Tab PO SCH (05:19)
[2016-11-09 06:30] LABS: BASO # 0.01 K/mm3 (0.0-2.0); BASO % 0.1 % (0.0-3.0); EOS # 0.5 (0.0-0.7); EOS % 4.2 % (1.5-5.0); GRAN # 9.98 (1.4-6.5); GRAN % 77.5 % (50.0-68.0); HEMOGLOBIN 8.9 gm/dL (12.0-16.0); LYMPH # 1.6 (1.2-3.4); LYMPH % 12.1 % (22.0-35.0); MEAN CELL VOLUME 78.7 fL (80.0-105.0); MEAN CORPUSCULAR HEMOGLOBIN 25.3 pg (25.0-35.0); MEAN CORPUSCULAR HGB CONC 32.1 g/dl (31.0-37.0); MEAN PLATELET VOLUME 9.3 fl (7.0-11.0); MONO # 0.8 (0.1-0.6); MONO % 6.1 % (1.0-6.0); PLATELET COUNT 247 10^3/uL (120.0-450.0); RBC 3.52 10^6/uL (3.5-6.1); RED CELL DISTRIBUTION WIDTH 20.6 % (11.5-14.5); WHITE BLOOD COUNT 12.9 10^3/ul (4.5-11.0)
[2016-11-09 06:47] LABS: ALB/GLOB RATIO 0.9 (1.1-1.8); ALBUMIN 2.5 g/dL (3.0-4.8); ALT/SGPT 119 U/L (7-56); AST/SGOT 58 U/L (15-39); BLOOD UREA NITROGEN 33 mg/dL (7-21); CALCIUM 7.9 mg/dL (8.4-10.5); GFR AFRICAN-AMERICAN > 60; GFR NON-AFRICAN AMERICAN > 60; MAGNESIUM 1.8 mg/dL (1.7-2.2)
[2016-11-09] MEDS: Insulin Lispro (humaLOG) LOW Coverage SC SCH ×4 (08:31→22:03)
[2016-11-09] MEDS: Insulin Lispro 1 UNITS/0.01 ML SC SCH ×4 (08:31→22:05)
[2016-11-09] MEDS: Iron Complex Polysacch 150mg Cap PO SCH (09:38)
[2016-11-09] MEDS: Lactobacillus Acidophilus 500 MU Cap PO SCH ×2 (09:38→17:24)
[2016-11-09] MEDS: Insulin Detemir 100 units/ml Vial (Levemir) SC SCH (09:39)
[2016-11-09] MEDS: Nystatin 100,000 Units/gm Topical Pow(15 gm) TOP SCH (09:39)
[2016-11-09] MEDS: Nystatin-Triamcinolone Ointment(30 gm) TOP SCH ×2 (09:39→17:26)
[2016-11-09] MEDS: Bacitracin Ointment 30 GM TUBE TOP SCH ×2 (09:47→17:25)
--- NOTE | 2016-11-09 11:50 | CP.PCM.PN ---
<Gin Pires - Last Filed: 11/09/16 14:21> Subjective - Date & Time of Evaluation Date of Evaluation: 11/09/16 Time of Evaluation: 07:05 - Subjective Subjective: Patient seen and examined at bedside. Per nursing patient had finger stick of 49 overnight, was given a snack and BS was 144 when rechecked. Pt offers no complaints at this time. Breathing well, tolerating diet. Witt in draining clear yellow urine. Denies headache, dizziness, CP, SOB, abdominal pain, urinary symptoms, changes in bowel habit. Objective - Vital Signs/Intake and Output Vital Signs (last 24 hours): Temp Pulse Resp BP Pulse Ox 99 F 115 H 20 101/63 96 11/09/16 06:00 11/09/16 10:00 11/09/16 06:00 11/09/16 06:00 11/09/16 06:00 Intake and Output: 11/09/16 11/09/16 06:59 18:59 Intake Total 1050 Output Total 1701 Balance -651 - Medications Medications: Current Medications Bacitracin (Bacitracin) 0 gm TOP BID [facility] Last Admin: 11/09/16 09:47 Dose: 1 applic Digoxin (Lanoxin) 0.125 mg PO 1400 [facility] Last Admin: 11/08/16 15:31 Dose: 0.125 mg Iron Sucrose 100 mg/ Sodium (Chloride) 105 mls @ 210 mls/hr IVPB DAILY [facility] Stop: 11/17/16 21:50 Last Admin: 11/09/16 09:42 Dose: 210 mls/hr Dobutamine HCl/Dextrose (Dobutamine/Dextrose 5% 500mg/250ml) 500 mg in 250 mls @ 6.246 mls/hr IV .Q24H PRN; Protocol; 2.5 MCG/KG/MIN PRN Reason: TITRATE PER PROTOCOL Last Admin: 11/08/16 17:15 Dose: 6.246 mls/hr Insulin Detemir (Levemir) 25 unit SC DAILY [facility] Last Admin: 11/09/16 09:39 Dose: 25 unit Insulin Human Lispro (Humalog) 5 units SC [facility] Last Admin: 11/09/16 08:31 Dose: 5 units Insulin Human Lispro (Humalog Low) 0 units SC [facility] PRN Reason: Protocol Last Admin: 11/09/16 08:31 Dose: 1 units Lactobacillus Acidophilus (Bacid Acidophilus) 1 cap PO BID [facility] Last Admin: 11/09/16 09:38 Dose: Not Given Nystatin (Nystop Topical Powder) 0 gm TOP DAILY [facility] Last Admin: 11/09/16 09:39 Dose: 1 applic Nystatin/Triamcinolone Acetonide (Nystatin/Triamcinolone Ointment) 0 gm TOP BID [facility] Last Admin: 11/09/16 09:39 Dose: 1 applic Pantoprazole Sodium (Protonix Ec Tab) 40 mg PO 0600 [facility] Last Admin: 11/09/16 05:19 Dose: 40 mg Polysaccharide Iron Complex (Ferrex-150) 150 mg PO DAILY [facility] Last Admin: 11/09/16 09:38 Dose: Not Given Spironolactone (Aldactone) 50 mg PO BID [facility] Last Admin: 11/08/16 18:02 Dose: 50 mg Torsemide (Demadex) 10 mg PO Q12H [facility] Last Admin: 11/09/16 09:38 Dose: 10 mg Tramadol HCl (Ultram) 50 mg PO TID PRN PRN Reason: Pain, moderate (4-7) Last Admin: 11/08/16 21:56 Dose: 50 mg - Labs Labs: 11/09/16 06:10 11/09/16 06:10 PT 12.0 Seconds (9.9-11.8) H 10/20/16 09:29 INR 1.11 (0.93-1.08) H 10/20/16 09:29 APTT 27.8 Seconds (23.7-30.8) 10/20/16 09:29 - Constitutional Appears: Well, No Acute Distress - Head Exam Head Exam: ATRAUMATIC, NORMAL INSPECTION - Eye Exam Eye Exam: EOMI, Normal appearance - ENT Exam ENT Exam: Mucous Membranes Moist - Neck Exam Neck Exam: Full ROM - Respiratory Exam Respiratory Exam: Decreased Breath Sounds, NORMAL BREATHING PATTERN. absent: Rales, Rhonchi, Wheezes - Cardiovascular Exam Cardiovascular Exam: Tachycardia, +S1, +S2. absent: Murmur - GI/Abdominal Exam GI & Abdominal Exam: Distended, Soft, Tenderness (Mild abdominal tenderness ). absent: Rigid - Extremities Exam Extremities Exam: Normal Capillary Refill, Pedal Edema. absent: Calf Tenderness - Neurological Exam Neurological Exam: Alert, Awake, Oriented x3 - Psychiatric Exam Psychiatric exam: Normal Affect, Normal Mood - Skin Skin Exam: Dry, Normal Color, Warm Assessment and Plan - Assessment and Plan (Free Text) Assessment: 51 y/o female with PMHx of DM2, CHF (EF 30% in 10/2016), HTN, chronic pulmonary effusion, HTN, DVT, PE, hypothyroidism, PSH of lap mitchell in 05/2016 and psych hx of schizophrenia and Bipolar disorder presented to the ED with complaints of abdominal pain. ECHO (10/18): EF 30% Plan: 1. Septic shock (tachycardia), likely a/w cardiogenic cause - Continues to be tachycardic, likely due to pain vs dobutamine - Hypothermia resolved - Hypotension improving off pressors, c/w dobutamine 2.5 PRN and Digoxin 0.125 - Cardio on consult, recs appreciated - Pulm on consult, recs appreciated 2. Abdominal pain likely due to edema/anasarca and CHF state - Pain control - Tramadol prn - Continue Fluid restriction - Daily weights unreliable - Monitor strict I/Os - GI consulted, recs appreciated 3. Hyponatremia, worsening - Serum Na 126 today - Aldactone 25mg BID - Was given one dose of tolvaptan this am - Monitor CMPs 4. Anemia (multifatorial) likely 2/2 chronic disease and Iron deficiency - S/P 1 unit PRBcs yesterday - Hgb stable at 8.9 this am - Continue IV iron - Spoke with GI who recommends transfusion, no plan for endoscopy/colonoscopy at this time 5. Leukocytosis - Blood cx and urine cx negative - s/p Merrem - Slight increase in WBC 11.2 --> 12.9 today - Will continue to monitor - ID consulted, recs appreciated 6. Hypotension improving, likely due to sepsis - BPs stable - Patient still on Dobutamine 2.5 PRN - Abdominal dopplers: patent portal vein with hepatopetal flow - Will f/u with case management in regards to placement; per documentation, patient denied from LTAC 6. OLLIE likely due to shock (prerenal in nature due to low intravascular volume) - Cr improving - Torsemide held yesterday per nephro, bicarb 38 today - I/O : 1790/3701 - Nephro on consult, f/u recommendations 7. Transaminitis - Likely 2/2 shocked liver - AST/ALT continues to trend down - Avoid hepatic toxins - Continue to monitor 8. Hx UTI 10/19 grew VRE (contact precautions) - UCx currently negative - Witt in place (clear yellow urine) - Nystatin powder/ointment and Bacitracin for jr-vaginal yeast infection - ID consulted, recs appreciated 9. DM2, HONK resolved - Continue Levemir 25 U for now (will adjust dose if continues to have low BS) - c/w Lispro 5u, and ISS - Accuchecks QACHS 10. Hypothyroid - Continue Synthroid 125mcg PO 11. Hypokalemia, resolved - Repleated with 2 bags of KCL yesterdat - K+ today 4.1 - F/U am CMP Gin Pires PGY-1 <Katherine Barragan - Last Filed: 11/09/16 15:58> Objective - Vital Signs/Intake and Output Vital Signs (last 24 hours): Temp Pulse Resp BP Pulse Ox 98.7 F 115 H 18 137/82 96 11/09/16 12:00 11/09/16 14:00 11/09/16 12:00 11/09/16 12:00 11/09/16 06:00 Intake and Output: 11/09/16 11/09/16 06:59 18:59 Intake Total 1050 Output Total 1701 Balance -651 - Medications Medications: Current Medications Apixaban (Eliquis) 5 mg PO BID [facility] PRN Reason: Protocol Bacitracin (Bacitracin) 0 gm TOP BID [facility] Last Admin: 11/09/16 09:47 Dose: 1 applic Digoxin (Lanoxin) 0.125 mg PO 1400 [facility] Last Admin: 11/09/16 14:48 Dose: 0.125 mg Iron Sucrose 100 mg/ Sodium (Chloride) 105 mls @ 210 mls/hr IVPB DAILY [facility] Stop: 11/17/16 21:50 Last Admin: 11/09/16 09:42 Dose: 210 mls/hr Dobutamine HCl/Dextrose (Dobutamine/Dextrose 5% 500mg/250ml) 500 mg in 250 mls @ 6.246 mls/hr IV .Q24H PRN; Protocol; 2.5 MCG/KG/MIN PRN Reason: TITRATE PER PROTOCOL Last Admin: 11/08/16 17:15 Dose: 6.246 mls/hr Insulin Detemir (Levemir) 25 unit SC DAILY [facility] Last Admin: 11/09/16 09:39 Dose: 25 unit Insulin Human Lispro (Humalog) 5 units SC ACHS [facility] Last Admin: 11/09/16 12:48 Dose: 5 units Insulin Human Lispro (Humalog Low) 0 units SC ACHS [facility] PRN Reason: Protocol Last Admin: 11/09/16 12:48 Dose: 2 units Lactobacillus Acidophilus (Bacid Acidophilus) 1 cap PO BID [facility] Last Admin: 11/09/16 09:38 Dose: Not Given Nystatin (Nystop Topical Powder) 0 gm TOP DAILY [facility] Last Admin: 11/09/16 09:39 Dose: 1 applic Nystatin/Triamcinolone Acetonide (Nystatin/Triamcinolone Ointment) 0 gm TOP BID [facility] Last Admin: 11/09/16 09:39 Dose: 1 applic Pantoprazole Sodium (Protonix Ec Tab) 40 mg PO 0600 [facility] Last Admin: 11/09/16 05:19 Dose: 40 mg Polysaccharide Iron Complex (Ferrex-150) 150 mg PO DAILY [facility] Last Admin: 11/09/16 09:38 Dose: Not Given Spironolactone (Aldactone) 50 mg PO BID [facility] Last Admin: 11/08/16 18:02 Dose: 50 mg Torsemide (Demadex) 10 mg PO Q12H [facility] Last Admin: 11/09/16 09:38 Dose: 10 mg Tramadol HCl (Ultram) 50 mg PO TID PRN PRN Reason: Pain, moderate (4-7) Last Admin: 11/08/16 21:56 Dose: 50 mg - Labs Labs: 11/09/16 06:10 11/09/16 06:10 PT 12.0 Seconds (9.9-11.8) H 10/20/16 09:29 INR 1.11 (0.93-1.08) H 10/20/16 09:29 APTT 27.8 Seconds (23.7-30.8) 10/20/16 09:29 Attending/Attestation - Attestation I have personally seen and examined this patient.: Yes I have fully participated in the care of the patient.: Yes I have reviewed all pertinent clinical information, including history, physical exam and plan: Yes Notes (Text): 11/09/16 15:52 51 year old female with past medical history of CHF (EF 30%), hypertension, hypothyroidism, schizophrenia and bipolar who presented with abdominal pain. She was found to have anasarca, hyponatremia and sepsis. Currently she is still on dobutamine. She is off antibiotics. She is spironalactone and torsemide. Sodium is 126 today and she is given a dose of tolvaptan. She had abdominal doppler ultrasound which was negative for portal vein thrombosis. Her renal function and LFTs have improved. Her hemoglobin improved after iv iron and prbc tranfusion yesterday. She is on levemir for diabetes and synthroid for hypothyroidism. She has history of DVT/PE and is on eliquis. Case was discussed with radio antenna installer and reverberatory furnace supervisor today. Also discussed with case investigator and older adult social work specialist for discharge planning. Katherine Barragan MD Hospitalist.
[2016-11-09] MEDS: Digoxin 125 mcg (0.125 mg) Tab PO SCH (14:48)
--- NOTE | 2016-11-09 15:16 | CP.PCM.PN ---
Subjective - Date & Time of Evaluation Date of Evaluation: 11/09/16 Time of Evaluation: 10:00 - Subjective Subjective: Comfortable in bed, not in distress, afebrile, no abdominal pain, no diarrhea. Objective - Vital Signs/Intake and Output Vital Signs (last 24 hours): Temp Pulse Resp BP Pulse Ox 99 F 114 H 20 101/63 96 11/09/16 06:00 11/09/16 06:00 11/09/16 06:00 11/09/16 06:00 11/09/16 06:00 Intake and Output: 11/08/16 11/09/16 18:59 06:59 Intake Total 740 1050 Output Total 1999 1701 Balance -0317 -310 - Medications Medications: Current Medications Bacitracin (Bacitracin) 0 gm TOP BID [facility] Last Admin: 11/08/16 17:19 Dose: 1 applic Digoxin (Lanoxin) 0.125 mg PO 1400 [facility] Last Admin: 11/08/16 15:31 Dose: 0.125 mg Iron Sucrose 100 mg/ Sodium (Chloride) 105 mls @ 210 mls/hr IVPB DAILY [facility] Stop: 11/17/16 21:50 Last Admin: 11/08/16 10:42 Dose: 210 mls/hr Dobutamine HCl/Dextrose (Dobutamine/Dextrose 5% 500mg/250ml) 500 mg in 250 mls @ 6.246 mls/hr IV .Q24H PRN; Protocol; 2.5 MCG/KG/MIN PRN Reason: TITRATE PER PROTOCOL Last Admin: 11/08/16 17:15 Dose: 6.246 mls/hr Insulin Detemir (Levemir) 25 unit SC DAILY [facility] Last Admin: 11/08/16 10:43 Dose: 25 unit Insulin Human Lispro (Humalog) 5 units SC ACHS [facility] Last Admin: 11/08/16 21:39 Dose: 5 units Insulin Human Lispro (Humalog Low) 0 units SC ACHS [facility] PRN Reason: Protocol Last Admin: 11/08/16 21:34 Dose: Not Given Lactobacillus Acidophilus (Bacid Acidophilus) 1 cap PO BID [facility] Last Admin: 11/08/16 18:14 Dose: 1 cap Nystatin (Nystop Topical Powder) 0 gm TOP DAILY [facility] Last Admin: 11/08/16 10:50 Dose: 1 applic Nystatin/Triamcinolone Acetonide (Nystatin/Triamcinolone Ointment) 0 gm TOP BID [facility] Last Admin: 11/08/16 17:18 Dose: 1 applic Pantoprazole Sodium (Protonix Ec Tab) 40 mg PO 0600 [facility] Last Admin: 11/09/16 05:19 Dose: 40 mg Polysaccharide Iron Complex (Ferrex-150) 150 mg PO DAILY [facility] Last Admin: 11/08/16 10:50 Dose: Not Given Spironolactone (Aldactone) 50 mg PO BID [facility] Last Admin: 11/08/16 18:02 Dose: 50 mg Torsemide (Demadex) 10 mg PO Q12H [facility] Last Admin: 11/08/16 08:14 Dose: 10 mg Tramadol HCl (Ultram) 50 mg PO TID PRN PRN Reason: Pain, moderate (4-7) Last Admin: 11/08/16 21:56 Dose: 50 mg - Labs Labs: 11/08/16 22:46 11/08/16 06:20 PT 12.0 Seconds (9.9-11.8) H 10/20/16 09:29 INR 1.11 (0.93-1.08) H 10/20/16 09:29 APTT 27.8 Seconds (23.7-30.8) 10/20/16 09:29 - Constitutional Appears: Non-toxic, No Acute Distress - Head Exam Head Exam: NORMAL INSPECTION - Respiratory Exam Respiratory Exam: Decreased Breath Sounds - Cardiovascular Exam Cardiovascular Exam: +S1, +S2 - GI/Abdominal Exam GI & Abdominal Exam: Soft. absent: Tenderness Assessment and Plan - Assessment and Plan (Free Text) Plan: Assessment S/P severe sepsis S/P hypoxic ventilator-dependent respiratory failure probably due to bilateral lower lobe healthcare-associated pneumonia with possible gram positive cocci, gram negative bacilli and/or atypical organisms, with associated hyperglycemic, hyperosmolar state with also acute pancreatitis, etiology to be determined - clinically improved and now off antibiotics - still with leukocytosis, probably reactive VRE in the urine, probably asymptomatic bacteriuria, continues to be asymptomatic chronic congestive heart failure due to cardiomyopathy elevated Alk phos and transaminases in a patient with pancreatitis as well as hepatic congestion history of healthcare-associated pneumonia, right middle lobe history of bilateral healthcare-associated pneumonia in this patient chronic heart failure S/P acute cholecystitis, S/P laparoscopic cholecystectomy CAD with chronic CHF DM HTN history of migraines bipolar disorder Plan will continue to monitor off antibiotics since she is at risk for nosocomial infections; will continue to monitor WBC count - patient may need further Hematology work up for the leukocytosis since she has a history of lymphoma in the past
--- NOTE | 2016-11-09 21:47 | PN ---
The patient is mildly short of breath. She has significant right upper arm edema. PHYSICAL EXAM: VITAL SIGNS: Blood pressure 138/72, heart rate 115, temperature 98.1, respirations 18. HEENT: Pale conjunctivae. CHEST: Absent breath sounds over the bases. HEART: S1, S2 regular. EXTREMITIES: 3 to 4+ right arm edema, 3+ leg edema. LABORATORY DATA: Hemoglobin and hematocrit 8.9 and 27.7, white count 12.9, platelet count 247,000. Yesterday, sodium 126, potassium 4.1, chloride 84, CO2 of 38, glucose 156, BUN 56, creatinine 0.9. Abdominal ultrasound performed yesterday revealed patent portal vein with hepatopetal flow. ASSESSMENT: 1. Cardiomyopathy. 2. Improved renal insufficiency. 3. Hyponatremia. 4. Rule out deep vein thrombosis of the right upper extremity. RECOMMENDATIONS: Continue Eliquis at 5 mg twice a day, dobutamine at 2.5 mg/kg/min, Aldactone at 50 mg twice a day, Lanoxin 0.125 mg orally daily. I did review the echocardiograph study during this admission which revealed severely depressed ejection fraction. The case was discussed with and Dr. French. Cesar Kinney MD
--- NOTE | 2016-11-09 22:01 | CP.PCM.PN ---
Subjective - Date & Time of Evaluation Date of Evaluation: 11/09/16 Time of Evaluation: 14:15 - Subjective Subjective: Again reporting breathing better; R arm swollen; Objective - Vital Signs/Intake and Output Vital Signs (last 24 hours): Temp Pulse Resp BP Pulse Ox 98.1 F 110 H 18 138/72 96 11/09/16 17:28 11/09/16 17:34 11/09/16 17:28 11/09/16 17:28 11/09/16 06:00 - Medications Medications: Current Medications Apixaban (Eliquis) 5 mg PO BID [facility] PRN Reason: Protocol Last Admin: 11/09/16 17:23 Dose: 5 mg Bacitracin (Bacitracin) 0 gm TOP BID [facility] Last Admin: 11/09/16 17:25 Dose: 1 applic Digoxin (Lanoxin) 0.125 mg PO 1400 [facility] Last Admin: 11/09/16 14:48 Dose: 0.125 mg Iron Sucrose 100 mg/ Sodium (Chloride) 105 mls @ 210 mls/hr IVPB DAILY [facility] Stop: 11/17/16 21:50 Last Admin: 11/09/16 09:42 Dose: 210 mls/hr Dobutamine HCl/Dextrose (Dobutamine/Dextrose 5% 500mg/250ml) 500 mg in 250 mls @ 6.246 mls/hr IV .Q24H PRN; Protocol; 2.5 MCG/KG/MIN PRN Reason: TITRATE PER PROTOCOL Last Admin: 11/08/16 17:15 Dose: 6.246 mls/hr Insulin Detemir (Levemir) 25 unit SC DAILY [facility] Last Admin: 11/09/16 09:39 Dose: 25 unit Insulin Human Lispro (Humalog) 5 units SC ACHS [facility] Last Admin: 11/09/16 17:24 Dose: 5 units Insulin Human Lispro (Humalog Low) 0 units SC ACHS [facility] PRN Reason: Protocol Last Admin: 11/09/16 17:23 Dose: Not Given Lactobacillus Acidophilus (Bacid Acidophilus) 1 cap PO BID [facility] Last Admin: 11/09/16 17:24 Dose: Not Given Nystatin (Nystop Topical Powder) 0 gm TOP DAILY [facility] Last Admin: 11/09/16 09:39 Dose: 1 applic Nystatin/Triamcinolone Acetonide (Nystatin/Triamcinolone Ointment) 0 gm TOP BID [facility] Last Admin: 11/09/16 17:26 Dose: 1 applic Pantoprazole Sodium (Protonix Ec Tab) 40 mg PO 0600 [facility] Last Admin: 11/09/16 05:19 Dose: 40 mg Polysaccharide Iron Complex (Ferrex-150) 150 mg PO DAILY [facility] Last Admin: 11/09/16 09:38 Dose: Not Given Spironolactone (Aldactone) 50 mg PO BID [facility] Last Admin: 11/08/16 18:02 Dose: 50 mg Torsemide (Demadex) 10 mg PO Q12H [facility] Last Admin: 11/09/16 09:38 Dose: 10 mg Tramadol HCl (Ultram) 50 mg PO TID PRN PRN Reason: Pain, moderate (4-7) Last Admin: 11/08/16 21:56 Dose: 50 mg - Labs Labs: 11/09/16 06:10 11/09/16 06:10 PT 12.0 Seconds (9.9-11.8) H 10/20/16 09:29 INR 1.11 (0.93-1.08) H 10/20/16 09:29 APTT 27.8 Seconds (23.7-30.8) 10/20/16 09:29 - Constitutional Appears: No Acute Distress - Head Exam Head Exam: NORMAL INSPECTION - Eye Exam Eye Exam: Normal appearance. absent: Scleral icterus - Respiratory Exam Additional comments: Decreased basal breath sounds; - Cardiovascular Exam Cardiovascular Exam: Tachycardia, REGULAR RHYTHM - GI/Abdominal Exam GI & Abdominal Exam: Soft, Tenderness. absent: Distended - Exam Additional comments: pickens in place - Extremities Exam Additional comments: Markedly edematous legs somewhat improved; new R arm/hand edema; - Neurological Exam Neurological Exam: Alert, Awake - Skin Skin Exam: Normal Color, Warm. absent: Cyanosis Assessment and Plan (1) Shock Status: Resolved (2) Acute renal failure Assessment & Plan: Cardiorenal etiology; resolving with inotpropic and diuresis; continue same; Status: Acute (3) Hyponatremia Assessment & Plan: In setting of acutely severely decompensated CHF; likely worsened by aldactone; responded to tolvaptan previously; -hold aldactone temporarily -tolvaptan 30 mg today Status: Acute (4) CHF (congestive heart failure) Assessment & Plan: Overall improving clinically; BP much improved; tolerating diuretics; should likely continue with inotropic support but whether this can be done logistically [facility] is unclear; can see if nursing facilities will take her if switched to milrinone; Status: Acute (5) Anemia Assessment & Plan: s/p prbc transfusion yesterday; on IV iron, continue; Status: Acute (6) Metabolic alkalosis Assessment & Plan: Still persistent; need to hold aldactone due to hyponatremia; will hold tonight' s torsemide dose; restart aldactone 25 mg bid after hyponatremia improves; Status: Acute
[2016-11-10] MEDS: Pantoprazole 40 mg EC Tab PO SCH (05:04)
[2016-11-10 05:36] LABS: BASO # 0.01 K/mm3 (0.0-2.0); BASO % 0.1 % (0.0-3.0); EOS # 0.5 (0.0-0.7); EOS % 4.2 % (1.5-5.0); GRAN % 78.8 % (50.0-68.0); HEMOGLOBIN 9.1 gm/dL (12.0-16.0); LYMPH # 1.4 (1.2-3.4); LYMPH % 10.8 % (22.0-35.0); MEAN CELL VOLUME 79.3 fL (80.0-105.0); MEAN CORPUSCULAR HEMOGLOBIN 25.1 pg (25.0-35.0); MEAN CORPUSCULAR HGB CONC 31.7 g/dl (31.0-37.0); MEAN PLATELET VOLUME 9.2 fl (7.0-11.0); MONO # 0.8 (0.1-0.6); MONO % 6.1 % (1.0-6.0); PLATELET COUNT 270 10^3/uL (120.0-450.0); RBC 3.62 10^6/uL (3.5-6.1); RED CELL DISTRIBUTION WIDTH 20.9 % (11.5-14.5); WHITE BLOOD COUNT 12.6 10^3/ul (4.5-11.0)
[2016-11-10 06:01] LABS: ALB/GLOB RATIO 0.9 (1.1-1.8); ALBUMIN 2.6 g/dL (3.0-4.8); ALT/SGPT 97 U/L (7-56); AST/SGOT 43 U/L (15-39); BLOOD UREA NITROGEN 26 mg/dL (7-21); CALCIUM 8.2 mg/dL (8.4-10.5); GFR AFRICAN-AMERICAN > 60; GFR NON-AFRICAN AMERICAN > 60; MAGNESIUM 1.8 mg/dL (1.7-2.2)
[2016-11-10] MEDS: Insulin Lispro (humaLOG) LOW Coverage SC SCH ×4 (08:37→21:42)
[2016-11-10] MEDS: Insulin Lispro 1 UNITS/0.01 ML SC SCH ×4 (08:37→21:47)
[2016-11-10] MEDS: Insulin Detemir 100 units/ml Vial (Levemir) SC SCH (10:15)
[2016-11-10] MEDS: Iron Complex Polysacch 150mg Cap PO SCH (10:21)
[2016-11-10] MEDS: Bacitracin Ointment 30 GM TUBE TOP SCH ×2 (10:22→18:05)
[2016-11-10] MEDS: Nystatin 100,000 Units/gm Topical Pow(15 gm) TOP SCH (10:22)
[2016-11-10] MEDS: Nystatin-Triamcinolone Ointment(30 gm) TOP SCH ×2 (10:22→18:06)
[2016-11-10] MEDS: Lactobacillus Acidophilus 500 MU Cap PO SCH ×2 (10:22→18:05)
--- NOTE | 2016-11-10 13:11 | CP.PCM.PN ---
Addendum entered and electronically signed by Gin Pires DO 11/10/16 13:48: Physical Exam: Gen: AAOx3, NAD HEENT: normacephalic, atraumatic, EOMI, RIJ central line in place CV: RRR, no murmurs appreciated Lungs: Diminished breath sounds B/L, No wheezing, rales, rhonchi appreciated Abd: soft, distended, no rebounding/guarding/rigidity : Witt in place draining clear yellow urine Ext: +1 edema B/L, +pedal pulses, R UE edema noted Original Note: <Gin Pires - Last Filed: 11/10/16 13:36> Subjective - Date & Time of Evaluation Date of Evaluation: 11/10/16 Time of Evaluation: 07:00 - Subjective Subjective: Patient seen and examined at bedside. Per nursing documentation, patient had a BS reading of 51 overnight. Will decrease Levemir to 20U. No other acute events overnight. Breathing improving, no complaints at this time. Denies headache, dizziness, CP, SOB, abdominal pain, urinary symptoms. Will d/c dobutamine drip for trial purposes and monitor BPs Objective - Vital Signs/Intake and Output Vital Signs (last 24 hours): Temp Pulse Resp BP Pulse Ox 99.6 F 78 19 114/67 97 11/10/16 06:00 11/10/16 06:00 11/10/16 06:00 11/10/16 06:00 11/10/16 06:00 Intake and Output: 11/10/16 11/10/16 06:59 18:59 Intake Total 1095 Output Total 3600 Balance -2505 - Medications Medications: Current Medications Acetazolamide (Diamox 500 Mg Inj) 250 mg IV Q12H [facility] Stop: 11/11/16 20:46 Last Admin: 11/10/16 10:21 Dose: 250 mg Apixaban (Eliquis) 5 mg PO BID [facility] PRN Reason: Protocol Last Admin: 11/10/16 10:21 Dose: 5 mg Bacitracin (Bacitracin) 0 gm TOP BID [facility] Last Admin: 11/10/16 10:22 Dose: Not Given Digoxin (Lanoxin) 0.125 mg PO 1400 [facility] Last Admin: 11/09/16 14:48 Dose: 0.125 mg Iron Sucrose 100 mg/ Sodium (Chloride) 105 mls @ 210 mls/hr IVPB DAILY [facility] Stop: 11/17/16 21:50 Last Admin: 11/10/16 10:22 Dose: 210 mls/hr Dobutamine HCl/Dextrose (Dobutamine/Dextrose 5% 500mg/250ml) 500 mg in 250 mls @ 6.246 mls/hr IV .Q24H PRN; Protocol; 2.5 MCG/KG/MIN PRN Reason: TITRATE PER PROTOCOL Last Admin: 11/08/16 17:15 Dose: 6.246 mls/hr Insulin Detemir (Levemir) 20 unit SC DAILY [facility] Last Admin: 11/10/16 10:15 Dose: 20 unit Insulin Human Lispro (Humalog) 5 units SC ACHS [facility] Last Admin: 11/10/16 08:37 Dose: Not Given Insulin Human Lispro (Humalog Low) 0 units SC ACHS [facility] PRN Reason: Protocol Last Admin: 11/10/16 08:37 Dose: Not Given Lactobacillus Acidophilus (Bacid Acidophilus) 1 cap PO BID [facility] Last Admin: 11/10/16 10:22 Dose: 1 cap Nystatin (Nystop Topical Powder) 0 gm TOP DAILY [facility] Last Admin: 11/10/16 10:22 Dose: Not Given Nystatin/Triamcinolone Acetonide (Nystatin/Triamcinolone Ointment) 0 gm TOP BID [facility] Last Admin: 11/10/16 10:22 Dose: Not Given Pantoprazole Sodium (Protonix Ec Tab) 40 mg PO 0600 [facility] Last Admin: 11/10/16 05:04 Dose: 40 mg Polysaccharide Iron Complex (Ferrex-150) 150 mg PO DAILY [facility] Last Admin: 11/10/16 10:21 Dose: 150 mg Spironolactone (Aldactone) 25 mg PO BID [facility] Last Admin: 11/10/16 10:22 Dose: 25 mg Torsemide (Demadex) 10 mg PO Q12H [facility] Last Admin: 11/09/16 09:38 Dose: 10 mg Tramadol HCl (Ultram) 50 mg PO TID PRN PRN Reason: Pain, moderate (4-7) Last Admin: 11/08/16 21:56 Dose: 50 mg - Labs Labs: 11/10/16 04:58 11/10/16 04:58 PT 12.0 Seconds (9.9-11.8) H 10/20/16 09:29 INR 1.11 (0.93-1.08) H 10/20/16 09:29 APTT 27.8 Seconds (23.7-30.8) 10/20/16 09:29 Assessment and Plan - Assessment and Plan (Free Text) Assessment: 51 y/o female with PMHx of DM2, CHF (EF 30% in 10/2016), HTN, chronic pulmonary effusion, HTN, DVT, PE, hypothyroidism, PSH of lap mitchell in 05/2016 and psych hx of schizophrenia and Bipolar disorder presented to the ED with complaints of abdominal pain. ECHO (10/18): EF 30% Plan: 1. Septic shock (tachycardia), likely a/w cardiogenic cause - Resolved 2. Abdominal pain likely due to edema/anasarca and CHF state - Pain control - Tramadol prn - Continue Fluid restriction - Daily weights unreliable - Monitor strict I/Os - GI consulted, recs appreciated 3. Hyponatremia, improving - Serum Na 131, received one dose of Tolvaptan yesterday - Continue Aldactone 25mg BID - Monitor CMPs - Nephrology on consult, f/u recommendations 4. Right UE edema - Order Dopplers to r/o DVT 5. Metabolic Alkalosis - Bicarb 39 today - Torsemide being held - Patient started on Diamox 250mg Q12H - Nephro on consult, f/u recommendations 6. Anemia (multifatorial) likely 2/2 chronic disease and Iron deficiency - S/P 1 unit PRBcs on 11/08/16 - Hgb stable at 9.1 this am - Continue IV iron - Spoke with GI, no plan for endoscopy/colonoscopy at this time 7. Leukocytosis - Blood cx and urine cx negative - s/p Merrem - WBC 12.6 today, slight improvement - Will continue to monitor - ID consulted, recs appreciated 8. Hypotension improving, likely due to sepsis - BPs stable - Will d/c dobutamine today on trial basis and monitor BPs - Abdominal dopplers: patent portal vein with hepatopetal flow - Will f/u with case management and Social work in regards to placement 9. OLLIE likely due to shock (prerenal in nature due to low intravascular volume) - Cr improving - Nephro on consult, f/u recommendations 10. Transaminitis - Likely 2/2 shocked liver - AST/ALT continues to trend down - Avoid hepatic toxins - Continue to monitor 11. Hx UTI 10/19 grew VRE (contact precautions) - UCx currently negative - Witt in place (clear yellow urine) - Nystatin powder/ointment and Bacitracin for jr-vaginal yeast infection - ID consulted, recs appreciated 12. DM2, HONK resolved - Patient had low BS reading last night - Decreased Levemir to 20U - c/w Lispro 5u, and ISS - Accuchecks QACHS 13. Hypothyroid - Continue Synthroid 125mcg PO 14. Hypokalemia, resolved - K+ today 4.2 - F/U am CMP 15. GI/DVT ppx - Eliquis 5mg BID - Protonix 40mg PO daily Gin Pires PGY-1 <Katherine Barragan - Last Filed: 11/10/16 14:13> Objective - Vital Signs/Intake and Output Vital Signs (last 24 hours): Temp Pulse Resp BP Pulse Ox 99.6 F 78 19 114/67 97 11/10/16 06:00 11/10/16 06:00 11/10/16 06:00 11/10/16 06:00 11/10/16 06:00 Intake and Output: 11/10/16 11/10/16 06:59 18:59 Intake Total 1095 Output Total 3600 Balance -2505 - Medications Medications: Current Medications Acetazolamide (Diamox 500 Mg Inj) 250 mg IV Q12H [facility] Stop: 11/11/16 20:46 Last Admin: 11/10/16 10:21 Dose: 250 mg Apixaban (Eliquis) 5 mg PO BID [facility] PRN Reason: Protocol Last Admin: 11/10/16 10:21 Dose: 5 mg Bacitracin (Bacitracin) 0 gm TOP BID [facility] Last Admin: 11/10/16 10:22 Dose: Not Given Digoxin (Lanoxin) 0.125 mg PO 1400 [facility] Last Admin: 11/10/16 13:43 Dose: 0.125 mg Iron Sucrose 100 mg/ Sodium (Chloride) 105 mls @ 210 mls/hr IVPB DAILY [facility] Stop: 11/17/16 21:50 Last Admin: 11/10/16 10:22 Dose: 210 mls/hr Dobutamine HCl/Dextrose (Dobutamine/Dextrose 5% 500mg/250ml) 500 mg in 250 mls @ 6.246 mls/hr IV .Q24H PRN; Protocol; 2.5 MCG/KG/MIN PRN Reason: TITRATE PER PROTOCOL Last Admin: 11/08/16 17:15 Dose: 6.246 mls/hr Insulin Detemir (Levemir) 20 unit SC DAILY [facility] Last Admin: 11/10/16 10:15 Dose: 20 unit Insulin Human Lispro (Humalog) 5 units SC ACHS [facility] Last Admin: 11/10/16 13:44 Dose: 5 units Insulin Human Lispro (Humalog Low) 0 units SC ACHS [facility] PRN Reason: Protocol Last Admin: 11/10/16 13:44 Dose: 2 units Lactobacillus Acidophilus (Bacid Acidophilus) 1 cap PO BID [facility] Last Admin: 11/10/16 10:22 Dose: 1 cap Nystatin (Nystop Topical Powder) 0 gm TOP DAILY [facility] Last Admin: 11/10/16 10:22 Dose: Not Given Nystatin/Triamcinolone Acetonide (Nystatin/Triamcinolone Ointment) 0 gm TOP BID [facility] Last Admin: 11/10/16 10:22 Dose: Not Given Pantoprazole Sodium (Protonix Ec Tab) 40 mg PO 0600 [facility] Last Admin: 11/10/16 05:04 Dose: 40 mg Polysaccharide Iron Complex (Ferrex-150) 150 mg PO DAILY [facility] Last Admin: 11/10/16 10:21 Dose: 150 mg Spironolactone (Aldactone) 25 mg PO BID [facility] Last Admin: 11/10/16 10:22 Dose: 25 mg Torsemide (Demadex) 10 mg PO Q12H [facility] Last Admin: 11/09/16 09:38 Dose: 10 mg Tramadol HCl (Ultram) 50 mg PO TID PRN PRN Reason: Pain, moderate (4-7) Last Admin: 11/08/16 21:56 Dose: 50 mg - Labs Labs: 11/10/16 04:58 11/10/16 04:58 PT 12.0 Seconds (9.9-11.8) H 10/20/16 09:29 INR 1.11 (0.93-1.08) H 10/20/16 09:29 APTT 27.8 Seconds (23.7-30.8) 10/20/16 09:29 Attending/Attestation - Attestation I have personally seen and examined this patient.: Yes I have fully participated in the care of the patient.: Yes I have reviewed all pertinent clinical information, including history, physical exam and plan: Yes Notes (Text): 11/10/16 14:06 51 year old female with past medical history of CHF (EF 30%), hypertension, hypothyroidism, schizophrenia and bipolar who presented with abdominal pain. She was found to have anasarca, hyponatremia and sepsis and started on dobutamine for hypotension. She is being followed by nephrology and cardiology. Her sodium has improved after one dose of tolvaptan yesterday. She is on diamox and spironalactone. Will attempt to taper off dobutamine today. She is off antibiotics. RUE doppler ordered for upper extremity swelling. She had abdominal doppler ultrasound which was negative for portal vein thrombosis. Her renal function and LFTs have improved. Her hemoglobin improved after iv iron and prbc tranfusion earlier this week. She has history of DVT/PE and is on eliquis. She is on synthroid for hypothyroidism. She is on levemir for diabetes; will reduce dose due to low blood sugar readings this morning. Katherine Barragan MD Hospitalist.
[2016-11-10] MEDS: Digoxin 125 mcg (0.125 mg) Tab PO SCH (13:43)
--- NOTE | 2016-11-10 17:59 | CP.PCM.PN ---
Subjective - Date & Time of Evaluation Date of Evaluation: 11/10/16 Time of Evaluation: 13:00 - Subjective Subjective: Patient reporting breathing well; tolerating diet; bring fluid restricted per nursing staff; Objective - Vital Signs/Intake and Output Vital Signs (last 24 hours): Temp Pulse Resp BP Pulse Ox 98.3 F 123 H 18 118/72 97 11/10/16 17:42 11/10/16 17:42 11/10/16 17:42 11/10/16 17:42 11/10/16 06:00 Intake and Output: 11/10/16 11/10/16 06:59 18:59 Intake Total 1095 Output Total 3600 Balance -2505 - Medications Medications: Current Medications Acetazolamide (Diamox 500 Mg Inj) 250 mg IV Q12H [facility] Stop: 11/11/16 20:46 Last Admin: 11/10/16 10:21 Dose: 250 mg Apixaban (Eliquis) 5 mg PO BID [facility] PRN Reason: Protocol Last Admin: 11/10/16 10:21 Dose: 5 mg Bacitracin (Bacitracin) 0 gm TOP BID [facility] Last Admin: 11/10/16 10:22 Dose: Not Given Digoxin (Lanoxin) 0.125 mg PO 1400 [facility] Last Admin: 11/10/16 13:43 Dose: 0.125 mg Iron Sucrose 100 mg/ Sodium (Chloride) 105 mls @ 210 mls/hr IVPB DAILY [facility] Stop: 11/17/16 21:50 Last Admin: 11/10/16 10:22 Dose: 210 mls/hr Dobutamine HCl/Dextrose (Dobutamine/Dextrose 5% 500mg/250ml) 500 mg in 250 mls @ 6.246 mls/hr IV .Q24H PRN; Protocol; 2.5 MCG/KG/MIN PRN Reason: TITRATE PER PROTOCOL Last Admin: 11/08/16 17:15 Dose: 6.246 mls/hr Insulin Detemir (Levemir) 20 unit SC DAILY [facility] Last Admin: 11/10/16 10:15 Dose: 20 unit Insulin Human Lispro (Humalog) 5 units SC ACHS [facility] Last Admin: 11/10/16 13:44 Dose: 5 units Insulin Human Lispro (Humalog Low) 0 units SC ACHS [facility] PRN Reason: Protocol Last Admin: 11/10/16 17:14 Dose: Not Given Lactobacillus Acidophilus (Bacid Acidophilus) 1 cap PO BID [facility] Last Admin: 11/10/16 10:22 Dose: 1 cap Nystatin (Nystop Topical Powder) 0 gm TOP DAILY [facility] Last Admin: 11/10/16 10:22 Dose: Not Given Nystatin/Triamcinolone Acetonide (Nystatin/Triamcinolone Ointment) 0 gm TOP BID [facility] Last Admin: 11/10/16 10:22 Dose: Not Given Pantoprazole Sodium (Protonix Ec Tab) 40 mg PO 0600 [facility] Last Admin: 11/10/16 05:04 Dose: 40 mg Polysaccharide Iron Complex (Ferrex-150) 150 mg PO DAILY [facility] Last Admin: 11/10/16 10:21 Dose: 150 mg Spironolactone (Aldactone) 25 mg PO BID [facility] Last Admin: 11/10/16 10:22 Dose: 25 mg Torsemide (Demadex) 10 mg PO Q12H [facility] Last Admin: 11/09/16 09:38 Dose: 10 mg Tramadol HCl (Ultram) 50 mg PO TID PRN PRN Reason: Pain, moderate (4-7) Last Admin: 11/08/16 21:56 Dose: 50 mg - Labs Labs: 11/10/16 04:58 11/10/16 04:58 PT 12.0 Seconds (9.9-11.8) H 10/20/16 09:29 INR 1.11 (0.93-1.08) H 10/20/16 09:29 APTT 27.8 Seconds (23.7-30.8) 10/20/16 09:29 - Constitutional Appears: Non-toxic, No Acute Distress - Head Exam Head Exam: NORMAL INSPECTION - Eye Exam Eye Exam: Normal appearance. absent: Scleral icterus - ENT Exam ENT Exam: Mucous Membranes Moist - Respiratory Exam Respiratory Exam: absent: Rales, Rhonchi, Wheezes Additional comments: Decreased R basal sounds; - Cardiovascular Exam Cardiovascular Exam: Tachycardia, REGULAR RHYTHM, +S1, +S2. absent: Gallop - GI/Abdominal Exam GI & Abdominal Exam: Soft. absent: Distended, Tenderness - Exam Additional comments: pickens in place - Extremities Exam Additional comments: Markedly edematous legs, somewhat improved; - Neurological Exam Neurological Exam: Alert, Awake - Skin Skin Exam: Normal Color, Warm. absent: Cyanosis Assessment and Plan (1) Shock Status: Resolved (2) Acute renal failure Assessment & Plan: Resolving; cardiorenal etiology; improved with inotropic support and relief of venous congestion with aggressive diuresis; will have to see effect of holding inotropes; continuing diuresis; Status: Acute (3) Hyponatremia Assessment & Plan: Secondary to severely decompensated systolic CHF; improved again with tolvaptan ; giving another dose today to counter expected hyponatremia from both acetazolamide and aldactone; Status: Acute (4) CHF (congestive heart failure) Assessment & Plan: Severely decompensated systolic CHF w/ MR; needing to hold inotrope today to assess for d/c planning; thus far tachycardic; continuing with aggressive diuretics; Status: Acute (5) Anemia Assessment & Plan: Due to iron deficiency and acute/chronic illness; getting IV iron, continue; Status: Acute (6) Metabolic alkalosis Assessment & Plan: Due to aggressive loop diuretics; last 2 torsemide doses held; alkalosis improved with adding acetazolamide today along with aldactone; will restart torsemide 10 mg tonight; Status: Acute
--- NOTE | 2016-11-10 18:24 | CP.PCM.PN ---
Subjective - Date & Time of Evaluation Date of Evaluation: 11/10/16 Time of Evaluation: 11:00 - Subjective Subjective: Comfortable on a chair, not in distress, afebrile. Objective - Vital Signs/Intake and Output Vital Signs (last 24 hours): Temp Pulse Resp BP Pulse Ox 98.3 F 123 H 18 118/72 97 11/10/16 17:42 11/10/16 17:42 11/10/16 17:42 11/10/16 17:42 11/10/16 06:00 Intake and Output: 11/10/16 11/10/16 06:59 18:59 Intake Total 1095 Output Total 3600 Balance -2505 - Medications Medications: Current Medications Acetazolamide (Diamox 500 Mg Inj) 250 mg IV Q12H [facility] Stop: 11/11/16 20:46 Last Admin: 11/10/16 10:21 Dose: 250 mg Apixaban (Eliquis) 5 mg PO BID [facility] PRN Reason: Protocol Last Admin: 11/10/16 18:05 Dose: 5 mg Bacitracin (Bacitracin) 0 gm TOP BID [facility] Last Admin: 11/10/16 18:05 Dose: 1 applic Digoxin (Lanoxin) 0.125 mg PO 1400 [facility] Last Admin: 11/10/16 13:43 Dose: 0.125 mg Iron Sucrose 100 mg/ Sodium (Chloride) 105 mls @ 210 mls/hr IVPB DAILY [facility] Stop: 11/17/16 21:50 Last Admin: 11/10/16 10:22 Dose: 210 mls/hr Dobutamine HCl/Dextrose (Dobutamine/Dextrose 5% 500mg/250ml) 500 mg in 250 mls @ 6.246 mls/hr IV .Q24H PRN; Protocol; 2.5 MCG/KG/MIN PRN Reason: TITRATE PER PROTOCOL Last Admin: 11/08/16 17:15 Dose: 6.246 mls/hr Insulin Detemir (Levemir) 20 unit SC DAILY [facility] Last Admin: 11/10/16 10:15 Dose: 20 unit Insulin Human Lispro (Humalog) 5 units SC ACHS [facility] Last Admin: 11/10/16 18:05 Dose: 5 units Insulin Human Lispro (Humalog Low) 0 units SC ACHS [facility] PRN Reason: Protocol Last Admin: 08/03/17 17:14 Dose: Not Given Lactobacillus Acidophilus (Bacid Acidophilus) 1 cap PO BID [facility] Last Admin: 11/10/16 18:05 Dose: 1 cap Nystatin (Nystop Topical Powder) 0 gm TOP DAILY [facility] Last Admin: 11/10/16 10:22 Dose: Not Given Nystatin/Triamcinolone Acetonide (Nystatin/Triamcinolone Ointment) 0 gm TOP BID [facility] Last Admin: 11/10/16 18:06 Dose: 1 applic Pantoprazole Sodium (Protonix Ec Tab) 40 mg PO 0600 [facility] Last Admin: 11/10/16 05:04 Dose: 40 mg Polysaccharide Iron Complex (Ferrex-150) 150 mg PO DAILY [facility] Last Admin: 11/10/16 10:21 Dose: 150 mg Spironolactone (Aldactone) 25 mg PO BID [facility] Last Admin: 11/10/16 18:05 Dose: 25 mg Torsemide (Demadex) 10 mg PO Q12H [facility] Last Admin: 11/09/16 09:38 Dose: 10 mg Tramadol HCl (Ultram) 50 mg PO TID PRN PRN Reason: Pain, moderate (4-7) Last Admin: 11/08/16 21:56 Dose: 50 mg - Labs Labs: 11/10/16 04:58 11/10/16 04:58 PT 12.0 Seconds (9.9-11.8) H 10/20/16 09:29 INR 1.11 (0.93-1.08) H 10/20/16 09:29 APTT 27.8 Seconds (23.7-30.8) 10/20/16 09:29 - Constitutional Appears: Non-toxic, No Acute Distress - Head Exam Head Exam: NORMAL INSPECTION - Respiratory Exam Respiratory Exam: Decreased Breath Sounds - Cardiovascular Exam Cardiovascular Exam: +S1, +S2 - GI/Abdominal Exam GI & Abdominal Exam: Soft. absent: Tenderness Assessment and Plan - Assessment and Plan (Free Text) Plan: Assessment S/P severe sepsis S/P hypoxic ventilator-dependent respiratory failure probably due to bilateral lower lobe healthcare-associated pneumonia with possible gram positive cocci, gram negative bacilli and/or atypical organisms, with associated hyperglycemic, hyperosmolar state with also acute pancreatitis, etiology to be determined - clinically improved and now off antibiotics - still with leukocytosis, probably reactive VRE in the urine, probably asymptomatic bacteriuria, continues to be asymptomatic chronic congestive heart failure due to cardiomyopathy elevated Alk phos and transaminases in a patient with pancreatitis as well as hepatic congestion history of healthcare-associated pneumonia, right middle lobe history of bilateral healthcare-associated pneumonia in this patient chronic heart failure S/P acute cholecystitis, S/P laparoscopic cholecystectomy CAD with chronic CHF DM HTN history of migraines bipolar disorder Plan will continue to monitor off antibiotics since she is at risk for hospital- acquired infections; will continue to monitor WBC count - patient may need further Hematology work up for the leukocytosis since she has a history of lymphoma in the past
[2016-11-10 19:07] LABS: BLOOD UREA NITROGEN 24 mg/dL (7-21); CALCIUM 8.3 mg/dL (8.4-10.5); GFR AFRICAN-AMERICAN > 60; GFR NON-AFRICAN AMERICAN > 60
--- NOTE | 2016-11-10 19:47 | PN ---
SUBJECTIVE: The patient's shortness of breath has improved. She is still experiencing significant right arm swelling. PHYSICAL EXAM: VITAL SIGNS: Blood pressure 115/78, heart rate 125, temperature 99.6, and respirations 20. HEENT: Facial edema. CHEST: Absent breath sounds over the bases. HEART: S1, S2 regular. EXTREMITIES: 3+ leg edema and 3+ right arm edema. LABORATORY DATA: Hemoglobin and hematocrit 9.1 and 28.7. White count and platelet count 12.6 and 270,000. Chemistry; sodium 131, potassium 4.2, chloride 90, CO2 39, glucose 92, BUN 26, and creatinine 0.9. ASSESSMENT: 1. Cardiomyopathy. 2. Significant hypoalbuminemia. 3. Improved renal insufficiency. 4. Hyponatremia. RECOMMENDATIONS: Continue Aldactone 25 mg twice a day, Demadex 10 mg orally twice a day, Diamox 250 mg 12 hours was started today. Continue Eliquis 5 mg twice a day, Lanoxin 0.125 mg daily. I will follow the venous Doppler of the right upper extremity report. The patient is currently off Dobutrex. Cesar Kinney MD
[2016-11-11] MEDS: Pantoprazole 40 mg EC Tab PO SCH (05:53)
[2016-11-11 06:54] LABS: BASO # 0.02 K/mm3 (0.0-2.0); BASO % 0.2 % (0.0-3.0); EOS # 0.5 (0.0-0.7); EOS % 4.2 % (1.5-5.0); GRAN # 9.02 (1.4-6.5); GRAN % 75.8 % (50.0-68.0); HEMOGLOBIN 9.1 gm/dL (12.0-16.0); LYMPH # 1.4 (1.2-3.4); LYMPH % 11.3 % (22.0-35.0); MEAN CELL VOLUME 81.2 fL (80.0-105.0); MEAN CORPUSCULAR HEMOGLOBIN 25.9 pg (25.0-35.0); MEAN CORPUSCULAR HGB CONC 31.9 g/dl (31.0-37.0); MEAN PLATELET VOLUME 9.6 fl (7.0-11.0); MONO % 8.5 % (1.0-6.0); PLATELET COUNT 304 10^3/uL (120.0-450.0); RBC 3.51 10^6/uL (3.5-6.1); RED CELL DISTRIBUTION WIDTH 22.1 % (11.5-14.5); WHITE BLOOD COUNT 11.9 10^3/ul (4.5-11.0)
[2016-11-11 07:18] LABS: ALB/GLOB RATIO 0.9 (1.1-1.8); ALBUMIN 2.5 g/dL (3.0-4.8); ALT/SGPT 85 U/L (7-56); AST/SGOT 41 U/L (15-39); BLOOD UREA NITROGEN 22 mg/dL (7-21); CALCIUM 8.4 mg/dL (8.4-10.5); GFR AFRICAN-AMERICAN > 60; GFR NON-AFRICAN AMERICAN 58; MAGNESIUM 1.8 mg/dL (1.7-2.2)
[2016-11-11] MEDS: Insulin Lispro (humaLOG) LOW Coverage SC SCH ×4 (07:53→22:23)
[2016-11-11] MEDS: Insulin Lispro 1 UNITS/0.01 ML SC SCH ×4 (07:55→22:22)
[2016-11-11] MEDS: Insulin Detemir 100 units/ml Vial (Levemir) SC SCH (09:45)
[2016-11-11] MEDS: Iron Complex Polysacch 150mg Cap PO SCH (09:45)
[2016-11-11] MEDS: Lactobacillus Acidophilus 500 MU Cap PO SCH ×2 (09:51→17:20)
[2016-11-11] MEDS: Nystatin-Triamcinolone Ointment(30 gm) TOP SCH ×2 (09:51→17:20)
[2016-11-11] MEDS: Nystatin 100,000 Units/gm Topical Pow(15 gm) TOP SCH (09:51)
[2016-11-11] MEDS: Bacitracin Ointment 30 GM TUBE TOP SCH ×2 (09:51→17:20)
--- NOTE | 2016-11-11 11:31 | CP.PCM.PN ---
Subjective - Date & Time of Evaluation Date of Evaluation: 11/11/16 Time of Evaluation: 09:30 - Subjective Subjective: Comfortable, not in distress, no fevers overnight. Objective - Vital Signs/Intake and Output Vital Signs (last 24 hours): Temp Pulse Resp BP Pulse Ox 98.2 F 109 H 20 112/62 97 11/11/16 06:13 11/11/16 06:13 11/11/16 06:13 11/11/16 06:13 11/10/16 06:00 Intake and Output: 11/10/16 11/11/16 18:59 06:59 Intake Total 936 Output Total 2600 Balance -1664 - Medications Medications: Current Medications Acetazolamide (Diamox 500 Mg Inj) 250 mg IV Q12H [facility] Stop: 11/11/16 20:46 Last Admin: 11/10/16 21:38 Dose: 250 mg Apixaban (Eliquis) 5 mg PO BID [facility] PRN Reason: Protocol Last Admin: 11/10/16 18:05 Dose: 5 mg Bacitracin (Bacitracin) 0 gm TOP BID [facility] Last Admin: 11/10/16 18:05 Dose: 1 applic Digoxin (Lanoxin) 0.125 mg PO 1400 [facility] Last Admin: 11/10/16 13:43 Dose: 0.125 mg Iron Sucrose 100 mg/ Sodium (Chloride) 105 mls @ 210 mls/hr IVPB DAILY [facility] Stop: 11/17/16 21:50 Last Admin: 11/10/16 10:22 Dose: 210 mls/hr Dobutamine HCl/Dextrose (Dobutamine/Dextrose 5% 500mg/250ml) 500 mg in 250 mls @ 6.246 mls/hr IV .Q24H PRN; Protocol; 2.5 MCG/KG/MIN PRN Reason: TITRATE PER PROTOCOL Last Admin: 11/08/16 17:15 Dose: 6.246 mls/hr Insulin Detemir (Levemir) 20 unit SC DAILY [facility] Last Admin: 11/10/16 10:15 Dose: 20 unit Insulin Human Lispro (Humalog) 5 units SC ACHS [facility] Last Admin: 11/10/16 21:47 Dose: 5 units Insulin Human Lispro (Humalog Low) 0 units SC ACHS [facility] PRN Reason: Protocol Last Admin: 11/10/16 21:42 Dose: Not Given Lactobacillus Acidophilus (Bacid Acidophilus) 1 cap PO BID [facility] Last Admin: 11/10/16 18:05 Dose: 1 cap Nystatin (Nystop Topical Powder) 0 gm TOP DAILY [facility] Last Admin: 11/10/16 10:22 Dose: Not Given Nystatin/Triamcinolone Acetonide (Nystatin/Triamcinolone Ointment) 0 gm TOP BID [facility] Last Admin: 11/10/16 18:06 Dose: 1 applic Pantoprazole Sodium (Protonix Ec Tab) 40 mg PO 0600 [facility] Last Admin: 11/11/16 05:53 Dose: 40 mg Polysaccharide Iron Complex (Ferrex-150) 150 mg PO DAILY [facility] Last Admin: 11/10/16 10:21 Dose: 150 mg Spironolactone (Aldactone) 25 mg PO BID [facility] Last Admin: 11/10/16 18:05 Dose: 25 mg Torsemide (Demadex) 10 mg PO Q12H [facility] Last Admin: 11/10/16 21:39 Dose: 10 mg Tramadol HCl (Ultram) 50 mg PO TID PRN PRN Reason: Pain, moderate (4-7) Last Admin: 11/08/16 21:56 Dose: 50 mg - Labs Labs: 11/10/16 04:58 11/10/16 18:30 PT 12.0 Seconds (9.9-11.8) H 10/20/16 09:29 INR 1.11 (0.93-1.08) H 10/20/16 09:29 APTT 27.8 Seconds (23.7-30.8) 10/20/16 09:29 - Constitutional Appears: Non-toxic, No Acute Distress - Head Exam Head Exam: NORMAL INSPECTION - Neck Exam Neck Exam: absent: Meningismus - Respiratory Exam Respiratory Exam: Decreased Breath Sounds - Cardiovascular Exam Cardiovascular Exam: +S1, +S2 - GI/Abdominal Exam GI & Abdominal Exam: Soft. absent: Tenderness Assessment and Plan - Assessment and Plan (Free Text) Plan: Assessment S/P severe sepsis S/P hypoxic ventilator-dependent respiratory failure probably due to bilateral lower lobe healthcare-associated pneumonia with possible gram positive cocci, gram negative bacilli and/or atypical organisms, with associated hyperglycemic, hyperosmolar state with also acute pancreatitis, etiology to be determined - clinically improved and continue to be off antibiotics - still with leukocytosis, probably reactive VRE in the urine, probably asymptomatic bacteriuria, continues to be asymptomatic chronic congestive heart failure due to cardiomyopathy elevated Alk phos and transaminases in a patient with pancreatitis as well as hepatic congestion history of healthcare-associated pneumonia, right middle lobe history of bilateral healthcare-associated pneumonia in this patient chronic heart failure S/P acute cholecystitis, S/P laparoscopic cholecystectomy CAD with chronic CHF DM HTN history of migraines bipolar disorder Plan will continue to monitor off antibiotics since she is at risk for healthcare- associated infections; will continue to monitor WBC count - patient may need further Hematology work up for the leukocytosis since she has a history of lymphoma in the past
--- NOTE | 2016-11-11 13:07 | CP.PCM.PN ---
<Gin Pires - Last Filed: 11/11/16 13:20> Subjective - Date & Time of Evaluation Date of Evaluation: 11/11/16 Time of Evaluation: 06:15 - Subjective Subjective: Patient seen and examined at bedside. Per nursing no acute events overnight. Patient is doing well, c/o mild intermittent headache. Breathing improving, R UE swelling also improving. OOB to chair and tolerating diet. Denies dizziness, visual changes, CP, SOB, abdominal pain, urinary symptoms, changes in bowel habits. Objective - Vital Signs/Intake and Output Vital Signs (last 24 hours): Temp Pulse Resp BP Pulse Ox 98.2 F 118 H 19 123/71 97 11/11/16 11:56 11/11/16 11:56 11/11/16 11:56 11/11/16 11:56 11/10/16 06:00 Intake and Output: 11/11/16 11/11/16 06:59 18:59 Intake Total 936 Output Total 2600 Balance -1664 - Medications Medications: Current Medications Acetazolamide (Diamox 500 Mg Inj) 250 mg IV Q12H [facility] Stop: 11/11/16 20:46 Last Admin: 11/11/16 09:40 Dose: 250 mg Apixaban (Eliquis) 5 mg PO BID [facility] PRN Reason: Protocol Last Admin: 11/11/16 09:45 Dose: 5 mg Bacitracin (Bacitracin) 0 gm TOP BID [facility] Last Admin: 11/11/16 09:51 Dose: 1 applic Digoxin (Lanoxin) 0.125 mg PO 1400 [facility] Last Admin: 11/10/16 13:43 Dose: 0.125 mg Iron Sucrose 100 mg/ Sodium (Chloride) 105 mls @ 210 mls/hr IVPB DAILY [facility] Stop: 11/17/16 21:50 Last Admin: 11/11/16 09:40 Dose: 210 mls/hr Dobutamine HCl/Dextrose (Dobutamine/Dextrose 5% 500mg/250ml) 500 mg in 250 mls @ 6.246 mls/hr IV .Q24H PRN; Protocol; 2.5 MCG/KG/MIN PRN Reason: TITRATE PER PROTOCOL Last Admin: 11/08/16 17:15 Dose: 6.246 mls/hr Insulin Detemir (Levemir) 20 unit SC DAILY [facility] Last Admin: 11/11/16 09:45 Dose: 20 unit Insulin Human Lispro (Humalog) 5 units SC ACHS [facility] Last Admin: 11/11/16 07:55 Dose: Not Given Insulin Human Lispro (Humalog Low) 0 units SC ACHS [facility] PRN Reason: Protocol Last Admin: 11/11/16 07:53 Dose: Not Given Lactobacillus Acidophilus (Bacid Acidophilus) 1 cap PO BID [facility] Last Admin: 11/11/16 09:51 Dose: Not Given Metoprolol Tartrate (Lopressor) 12.5 mg PO BID [facility] Nystatin (Nystop Topical Powder) 0 gm TOP DAILY [facility] Last Admin: 11/11/16 09:51 Dose: 1 applic Nystatin/Triamcinolone Acetonide (Nystatin/Triamcinolone Ointment) 0 gm TOP BID [facility] Last Admin: 11/11/16 09:51 Dose: 1 applic Pantoprazole Sodium (Protonix Ec Tab) 40 mg PO 0600 [facility] Last Admin: 11/11/16 05:53 Dose: 40 mg Polysaccharide Iron Complex (Ferrex-150) 150 mg PO DAILY [facility] Last Admin: 11/11/16 09:45 Dose: 150 mg Spironolactone (Aldactone) 25 mg PO BID [facility] Last Admin: 11/11/16 09:45 Dose: 25 mg Torsemide (Demadex) 10 mg PO Q12H [facility] Last Admin: 11/11/16 09:51 Dose: 10 mg Tramadol HCl (Ultram) 50 mg PO TID PRN PRN Reason: Pain, moderate (4-7) Last Admin: 11/08/16 21:56 Dose: 50 mg - Labs Labs: 11/11/16 06:00 11/11/16 06:00 PT 12.0 Seconds (9.9-11.8) H 10/20/16 09:29 INR 1.11 (0.93-1.08) H 10/20/16 09:29 APTT 27.8 Seconds (23.7-30.8) 10/20/16 09:29 - Constitutional Appears: Well, No Acute Distress - Head Exam Head Exam: ATRAUMATIC, NORMAL INSPECTION - Eye Exam Eye Exam: EOMI, Normal appearance - ENT Exam ENT Exam: Mucous Membranes Moist - Neck Exam Neck Exam: Full ROM - Respiratory Exam Respiratory Exam: Decreased Breath Sounds, NORMAL BREATHING PATTERN. absent: Rhonchi, Wheezes - Cardiovascular Exam Cardiovascular Exam: Tachycardia, +S1, +S2 - GI/Abdominal Exam GI & Abdominal Exam: Distended, Soft. absent: Guarding, Rigid, Tenderness - Extremities Exam Extremities Exam: Pedal Edema. absent: Calf Tenderness - Back Exam Back Exam: NORMAL INSPECTION - Neurological Exam Neurological Exam: Alert, Awake, Oriented x3 - Psychiatric Exam Psychiatric exam: Normal Affect, Normal Mood - Skin Skin Exam: Erythema, Normal Color, Warm. absent: Rash Assessment and Plan - Assessment and Plan (Free Text) Assessment: 51 y/o female with PMHx of DM2, CHF (EF 30% in 10/2016), HTN, chronic pulmonary effusion, HTN, DVT, PE, hypothyroidism, PSH of lap mitchell in 05/2016 and psych hx of schizophrenia and Bipolar disorder presented to the ED with complaints of abdominal pain. ECHO (10/18): EF 30% Plan: Plan: 1. Septic shock (tachycardia), likely a/w cardiogenic cause - Septic shock resolved, no active signs of infection - Patient remains tachycardic despite being off dobutamine > 24 hours - Will add Metoprolol 12.5mg PO BID - Cardiology on consult, will f/u recommendations 2. Abdominal pain likely due to edema/anasarca and CHF state - Pain control - Tramadol prn - Continue Fluid restriction - Daily weights unreliable - Monitor strict I/Os - GI consulted, recs appreciated 3. Hyponatremia, improving - Serum Na 131 - Continue Aldactone 25mg BID - Monitor CMPs - Nephrology on consult, f/u recommendations 4. Right UE edema - Edema improving - Dopplers completed, f/u official read - Keep Right arm elevated 5. Metabolic Alkalosis - Bicarb 33 today, improving - Torsemide resumed - Patient started on Diamox 250mg Q12H - Nephro on consult, f/u recommendations 6. Anemia (multifatorial) likely 2/2 chronic disease and Iron deficiency - S/P 1 unit PRBcs on 11/08/16 - Hgb stable at 9.1 this am - Continue IV iron - Per GI, no plan for endoscopy/colonoscopy at this time 7. Leukocytosis - Blood cx and urine cx negative - s/p Merrem - WBC 11.9 today, slight improvement - No active signs of infection - Will continue to monitor - ID consulted, recs appreciated 8. Hypotension improving, likely due to sepsis - BPs stable, off dobutamine > 24 hours - Abdominal dopplers: patent portal vein with hepatopetal flow - Will f/u with case management and Social work in regards to placement 9. OLLIE likely due to shock (prerenal in nature due to low intravascular volume) - Cr improving - Nephro on consult, f/u recommendations 10. Transaminitis - Likely 2/2 shocked liver - AST/ALT continues to trend down - Avoid hepatic toxins - Continue to monitor 11. Hx UTI 10/19 grew VRE (contact precautions) - UCx currently negative - Witt in place (clear yellow urine) - Nystatin powder/ointment and Bacitracin for jr-vaginal yeast infection - Will discontinue isolation - ID consulted, recs appreciated 12. DM2, HONK resolved - Continue Levemir to 20U - c/w Lispro 5u, and ISS - Accuchecks QACHS 13. Hypothyroid - Continue Synthroid 125mcg PO 14. Hypokalemia, resolved - K+ today 3.7 - F/U am CMP 15. GI/DVT ppx - Eliquis 5mg BID (Hx of DVT/PE) - Protonix 40mg PO daily Gin Pires PGY-1 <Katherine Barragan - Last Filed: 11/11/16 16:34> Objective - Vital Signs/Intake and Output Vital Signs (last 24 hours): Temp Pulse Resp BP Pulse Ox 98.2 F 144 H 19 123/71 97 11/11/16 11:56 11/11/16 13:23 11/11/16 11:56 11/11/16 13:23 11/10/16 06:00 Intake and Output: 11/11/16 11/11/16 06:59 18:59 Intake Total 936 Output Total 2600 Balance -1664 - Medications Medications: Current Medications Acetazolamide (Diamox 500 Mg Inj) 250 mg IV Q12H [facility] Stop: 11/11/16 20:46 Last Admin: 11/11/16 09:40 Dose: 250 mg Apixaban (Eliquis) 5 mg PO BID [facility] PRN Reason: Protocol Last Admin: 11/11/16 09:45 Dose: 5 mg Bacitracin (Bacitracin) 0 gm TOP BID [facility] Last Admin: 11/11/16 09:51 Dose: 1 applic Digoxin (Lanoxin) 0.125 mg PO 1400 [facility] Last Admin: 11/11/16 13:13 Dose: 0.125 mg Iron Sucrose 100 mg/ Sodium (Chloride) 105 mls @ 210 mls/hr IVPB DAILY [facility] Stop: 11/17/16 21:50 Last Admin: 11/11/16 09:40 Dose: 210 mls/hr Dobutamine HCl/Dextrose (Dobutamine/Dextrose 5% 500mg/250ml) 500 mg in 250 mls @ 6.246 mls/hr IV .Q24H PRN; Protocol; 2.5 MCG/KG/MIN PRN Reason: TITRATE PER PROTOCOL Last Admin: 11/08/16 17:15 Dose: 6.246 mls/hr Insulin Detemir (Levemir) 20 unit SC DAILY [facility] Last Admin: 11/11/16 09:45 Dose: 20 unit Insulin Human Lispro (Humalog) 5 units SC ACHS [facility] Last Admin: 11/11/16 12:57 Dose: 5 units Insulin Human Lispro (Humalog Low) 0 units SC ACHS [facility] PRN Reason: Protocol Last Admin: 11/11/16 12:58 Dose: 3 units Lactobacillus Acidophilus (Bacid Acidophilus) 1 cap PO BID [facility] Last Admin: 11/11/16 09:51 Dose: Not Given Metoprolol Tartrate (Lopressor) 25 mg PO BID [facility] Nystatin (Nystop Topical Powder) 0 gm TOP DAILY [facility] Last Admin: 11/11/16 09:51 Dose: 1 applic Nystatin/Triamcinolone Acetonide (Nystatin/Triamcinolone Ointment) 0 gm TOP BID [facility] Last Admin: 11/11/16 09:51 Dose: 1 applic Pantoprazole Sodium (Protonix Ec Tab) 40 mg PO 0600 [facility] Last Admin: 11/11/16 05:53 Dose: 40 mg Polysaccharide Iron Complex (Ferrex-150) 150 mg PO DAILY [facility] Last Admin: 11/11/16 09:45 Dose: 150 mg Spironolactone (Aldactone) 25 mg PO BID [facility] Last Admin: 11/11/16 09:45 Dose: 25 mg Torsemide (Demadex) 10 mg PO Q12H [facility] Last Admin: 11/11/16 09:51 Dose: 10 mg Tramadol HCl (Ultram) 50 mg PO TID PRN PRN Reason: Pain, moderate (4-7) Last Admin: 11/08/16 21:56 Dose: 50 mg - Labs Labs: 11/11/16 06:00 11/11/16 06:00 PT 12.0 Seconds (9.9-11.8) H 10/20/16 09:29 INR 1.11 (0.93-1.08) H 10/20/16 09:29 APTT 27.8 Seconds (23.7-30.8) 10/20/16 09:29 Attending/Attestation - Attestation I have personally seen and examined this patient.: Yes I have fully participated in the care of the patient.: Yes I have reviewed all pertinent clinical information, including history, physical exam and plan: Yes Notes (Text): 11/11/16 16:22 51 year old female with past medical history of CHF (EF 30%), hypertension, hypothyroidism, schizophrenia and bipolar who presented with abdominal pain. She was found to have anasarca, hyponatremia and sepsis and started on dobutamine for hypotension. She is being followed by nephrology. Her sodium has improved. She is on diamox, torsemide and spironalactone. Her dobutamine was tapered off yesterday without any hypotensive issues. However she is tachycardic. Cardiology is following and has started metroprolol. She is off antibiotics. RUE doppler was done for upper extremity swelling and the report is pending. She does have history of DVT/PE and is on eliquis. She had abdominal doppler ultrasound which was negative for portal vein thrombosis. Her renal function and LFTs have improved. Her hemoglobin improved after iv iron and prbc tranfusion earlier this week. She is on synthroid for hypothyroidism and levemir for diabetes. Katherine Barragan MD Hospitalist.
[2016-11-11] MEDS: Digoxin 125 mcg (0.125 mg) Tab PO SCH (13:13)
--- NOTE | 2016-11-11 13:48 | US ---
PROCEDURE: Right upper extremity venous US CLINICAL HISTORY: Arm pain and swelling Evaluate for deep venous thrombosis. PHYSICIAN(S): Kal Peña M.D FINDINGS: The visualized rightinternal jugular vein is sonographically normal and compressible. No evidence of obstruction or thrombus is seen. The right axillary and subclavian veins are small and irregular in appearance. This could represent a chronic thrombosis of the right subclavian and axillary veins. The visualized right brachial veins are patent IMPRESSION: 1. 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 No acute thrombus is appreciated
--- NOTE | 2016-11-11 19:10 | CP.PCM.PN ---
Subjective - Date & Time of Evaluation Date of Evaluation: 11/11/16 Time of Evaluation: 12:00 - Subjective Subjective: Patient tolerating diet; R hand swelling improved; abd discomfort improved; Objective - Vital Signs/Intake and Output Vital Signs (last 24 hours): Temp Pulse Resp BP Pulse Ox 98.1 F 110 H 18 98/58 L 97 11/11/16 16:56 11/11/16 18:00 11/11/16 16:56 11/11/16 17:20 11/10/16 06:00 - Medications Medications: Current Medications Acetazolamide (Diamox 500 Mg Inj) 250 mg IV Q12H [facility] Stop: 11/11/16 20:46 Last Admin: 11/11/16 09:40 Dose: 250 mg Apixaban (Eliquis) 5 mg PO BID [facility] PRN Reason: Protocol Last Admin: 11/11/16 17:20 Dose: 5 mg Bacitracin (Bacitracin) 0 gm TOP BID [facility] Last Admin: 11/11/16 17:20 Dose: 1 applic Digoxin (Lanoxin) 0.125 mg PO 1400 [facility] Last Admin: 11/11/16 13:13 Dose: 0.125 mg Iron Sucrose 100 mg/ Sodium (Chloride) 105 mls @ 210 mls/hr IVPB DAILY [facility] Stop: 11/17/16 21:50 Last Admin: 11/11/16 09:40 Dose: 210 mls/hr Dobutamine HCl/Dextrose (Dobutamine/Dextrose 5% 500mg/250ml) 500 mg in 250 mls @ 6.246 mls/hr IV .Q24H PRN; Protocol; 2.5 MCG/KG/MIN PRN Reason: TITRATE PER PROTOCOL Last Admin: 11/08/16 17:15 Dose: 6.246 mls/hr Insulin Detemir (Levemir) 20 unit SC DAILY [facility] Last Admin: 11/11/16 09:45 Dose: 20 unit Insulin Human Lispro (Humalog) 5 units SC ACHS [facility] Last Admin: 11/11/16 17:19 Dose: 5 units Insulin Human Lispro (Humalog Low) 0 units SC ACHS [facility] PRN Reason: Protocol Last Admin: 11/11/16 17:19 Dose: 2 units Lactobacillus Acidophilus (Bacid Acidophilus) 1 cap PO BID [facility] Last Admin: 11/11/16 17:20 Dose: Not Given Metoprolol Tartrate (Lopressor) 25 mg PO BID [facility] Last Admin: 11/11/16 17:20 Dose: Not Given Nystatin (Nystop Topical Powder) 0 gm TOP DAILY [facility] Last Admin: 11/11/16 09:51 Dose: 1 applic Nystatin/Triamcinolone Acetonide (Nystatin/Triamcinolone Ointment) 0 gm TOP BID [facility] Last Admin: 11/11/16 17:20 Dose: 1 applic Pantoprazole Sodium (Protonix Ec Tab) 40 mg PO 0600 [facility] Last Admin: 11/11/16 05:53 Dose: 40 mg Polysaccharide Iron Complex (Ferrex-150) 150 mg PO DAILY [facility] Last Admin: 11/11/16 09:45 Dose: 150 mg Spironolactone (Aldactone) 25 mg PO BID [facility] Last Admin: 11/11/16 17:20 Dose: 25 mg Torsemide (Demadex) 10 mg PO Q12H [facility] Last Admin: 11/11/16 09:51 Dose: 10 mg Tramadol HCl (Ultram) 50 mg PO TID PRN PRN Reason: Pain, moderate (4-7) Last Admin: 11/08/16 21:56 Dose: 50 mg - Labs Labs: 11/11/16 06:00 11/11/16 06:00 PT 12.0 Seconds (9.9-11.8) H 10/20/16 09:29 INR 1.11 (0.93-1.08) H 10/20/16 09:29 APTT 27.8 Seconds (23.7-30.8) 10/20/16 09:29 - Constitutional Appears: Non-toxic, No Acute Distress - Head Exam Head Exam: NORMAL INSPECTION - Eye Exam Eye Exam: Normal appearance. absent: Scleral icterus - ENT Exam ENT Exam: Mucous Membranes Moist - Respiratory Exam Additional comments: Decreased sounds at R base; - Cardiovascular Exam Cardiovascular Exam: REGULAR RHYTHM Additional comments: systolic murmur at apex; - GI/Abdominal Exam GI & Abdominal Exam: Soft. absent: Distended - Exam Additional comments: pickens in place; - Extremities Exam Additional comments: markedly edematous legs but improving; - Neurological Exam Neurological Exam: Alert, Awake - Skin Skin Exam: Normal Color, Warm. absent: Cyanosis Assessment and Plan (1) Shock Status: Resolved (2) Acute renal failure Assessment & Plan: Cardiorenal etiology, improving with diuresis; inotropic support held to assess status off of it (for d/c planning); -continue diuretics (torsemide, aldactone and diamox); Status: Acute (3) Hyponatremia Assessment & Plan: Improved with tolvaptan doses; may need to continue as outpatient; Status: Acute (4) CHF (congestive heart failure) Assessment & Plan: Severely decompensated systolic CHF; BP stable off dobutamine, continue to monitor; continue aggressive diuresis; Status: Acute (5) Anemia Assessment & Plan: Secondary to illness and iron deficiency; continue IV iron; Status: Acute (6) Metabolic alkalosis Assessment & Plan: Improved with addition of diamox, aldactone restarted; diamox to stop today, will re-assess need thereafter; Status: Acute
--- NOTE | 2016-11-11 19:43 | PN ---
SUBJECTIVE: The patient is off . She still is in sinus tachycardia. She feels comfortable on nasal O2. PHYSICAL EXAMINATION VITAL SIGNS: Blood pressure 123/71, heart rate 118, temperature 98.2, respirations 19. HEENT: Pale conjunctivae. CHEST: Absent breath sounds over the bases. HEART: S1 and S2 regular. EXTREMITIES: 3+ leg edema with improved right upper arm edema. LABORATORY DATA: Hemoglobin and hematocrit 9.1 and 28.5, white count and platelet count 11.9 and 304,000. Today's BUN and creatinine are 22 and 1.0. Potassium is within normal limit as well as magnesium. Right upper extremity ultrasound revealed chronic thrombosis of the right axillary and subclavian vein. No acute thrombosis is appreciated. ASSESSMENT: 1. 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 2. Dilated cardiomyopathy. 3. Anemia. RECOMMENDATIONS: The case was discussed with Dr. French, knee bolter. Continue Demadex at 10 mg twice a day, Eliquis 5 mg twice a day, Lanoxin 0.125 mg once a day, increase Lopressor to 25 mg twice a day, continue twice a day. Cesar Kinney MD
[2016-11-12] MEDS: Pantoprazole 40 mg EC Tab PO SCH (05:54)
[2016-11-12 06:57] LABS: BASO # 0.05 K/mm3 (0.0-2.0); BASO % 0.4 % (0.0-3.0); EOS # 0.4 (0.0-0.7); EOS % 3.1 % (1.5-5.0); GRAN # 8.96 (1.4-6.5); GRAN % 75.5 % (50.0-68.0); HEMOGLOBIN 8.9 gm/dL (12.0-16.0); LYMPH # 1.6 (1.2-3.4); LYMPH % 13.7 % (22.0-35.0); MEAN CELL VOLUME 80.2 fL (80.0-105.0); MEAN CORPUSCULAR HEMOGLOBIN 25.5 pg (25.0-35.0); MEAN CORPUSCULAR HGB CONC 31.8 g/dl (31.0-37.0); MEAN PLATELET VOLUME 9.2 fl (7.0-11.0); MONO # 0.9 (0.1-0.6); MONO % 7.3 % (1.0-6.0); PLATELET COUNT 314 10^3/uL (120.0-450.0); RBC 3.49 10^6/uL (3.5-6.1); RED CELL DISTRIBUTION WIDTH 22.3 % (11.5-14.5); WHITE BLOOD COUNT 11.9 10^3/ul (4.5-11.0)
[2016-11-12 07:31] LABS: ALB/GLOB RATIO 0.8 (1.1-1.8); ALBUMIN 2.3 g/dL (3.0-4.8); ALT/SGPT 71 U/L (7-56); AST/SGOT 33 U/L (15-39); BLOOD UREA NITROGEN 25 mg/dL (7-21); CALCIUM 8.2 mg/dL (8.4-10.5); GFR AFRICAN-AMERICAN > 60; GFR NON-AFRICAN AMERICAN 58; MAGNESIUM 1.7 mg/dL (1.7-2.2)
[2016-11-12] MEDS: Insulin Lispro 1 UNITS/0.01 ML SC SCH ×4 (08:15→22:08)
[2016-11-12] MEDS: Insulin Detemir 100 units/ml Vial (Levemir) SC SCH (09:10)
[2016-11-12] MEDS: Nystatin 100,000 Units/gm Topical Pow(15 gm) TOP SCH (09:14)
[2016-11-12] MEDS: Bacitracin Ointment 30 GM TUBE TOP SCH ×2 (09:14→17:35)
[2016-11-12] MEDS: Nystatin-Triamcinolone Ointment(30 gm) TOP SCH ×2 (09:15→17:35)
[2016-11-12] MEDS: Lactobacillus Acidophilus 500 MU Cap PO SCH ×2 (09:31→17:24)
[2016-11-12] MEDS: Insulin Lispro (humaLOG) LOW Coverage SC SCH ×4 (09:54→22:09)
[2016-11-12] MEDS ORDERED: DOBUTamine 500mg/250ml D5W 500 MG/250 ML BAG IV PRN (10:01)
[2016-11-12] MEDS: DOBUTamine 500mg/250ml D5W 500 MG/250 ML BAG IV PRN ×2 (11:30→11:39)
[2016-11-12] MEDS: Iron Complex Polysacch 150mg Cap PO SCH (11:42)
--- NOTE | 2016-11-12 12:42 | CP.PCM.PN ---
Subjective - Date & Time of Evaluation Date of Evaluation: 11/12/16 Time of Evaluation: 12:00 - Subjective Subjective: Reports some difficulty breathing earlier, ok now; went for RLE US earlier today ; Objective - Vital Signs/Intake and Output Vital Signs (last 24 hours): Temp Pulse Resp BP Pulse Ox 97 F L 111 H 18 103/65 100 11/12/16 11:40 11/12/16 11:40 11/12/16 11:40 11/12/16 11:40 11/12/16 06:00 Intake and Output: 11/12/16 11/12/16 06:59 18:59 Intake Total 430 Output Total 2500 Balance -2069 - Medications Medications: Current Medications Apixaban (Eliquis) 5 mg PO BID [facility] PRN Reason: Protocol Last Admin: 11/12/16 09:11 Dose: 5 mg Bacitracin (Bacitracin) 0 gm TOP BID [facility] Last Admin: 11/12/16 09:14 Dose: 1 applic Digoxin (Lanoxin) 0.125 mg PO 1400 [facility] Last Admin: 11/11/16 13:13 Dose: 0.125 mg Iron Sucrose 100 mg/ Sodium (Chloride) 105 mls @ 210 mls/hr IVPB DAILY [facility] Stop: 11/17/16 21:50 Last Admin: 11/12/16 09:31 Dose: 210 mls/hr Dobutamine HCl/Dextrose (Dobutamine/Dextrose 5% 500mg/250ml) 500 mg in 250 mls @ 5.817 mls/hr IV .Q24H PRN; Protocol; 2.5 MCG/KG/MIN PRN Reason: TITRATE PER PROTOCOL Last Admin: 11/12/16 11:39 Dose: 5.817 mls/hr Insulin Detemir (Levemir) 20 unit SC DAILY [facility] Last Admin: 11/12/16 09:10 Dose: 20 unit Insulin Human Lispro (Humalog) 5 units SC ACHS [facility] Last Admin: 11/12/16 12:33 Dose: 5 units Insulin Human Lispro (Humalog Low) 0 units SC ACHS [facility] PRN Reason: Protocol Last Admin: 11/12/16 12:34 Dose: 1 units Lactobacillus Acidophilus (Bacid Acidophilus) 1 cap PO BID [facility] Last Admin: 11/12/16 09:31 Dose: 1 cap Metoprolol Tartrate (Lopressor) 25 mg PO BID [facility] Last Admin: 11/12/16 09:12 Dose: Not Given Nystatin (Nystop Topical Powder) 0 gm TOP DAILY [facility] Last Admin: 11/12/16 09:14 Dose: 1 applic Nystatin/Triamcinolone Acetonide (Nystatin/Triamcinolone Ointment) 0 gm TOP BID [facility] Last Admin: 11/12/16 09:15 Dose: 1 applic Pantoprazole Sodium (Protonix Ec Tab) 40 mg PO 0600 [facility] Last Admin: 11/12/16 05:54 Dose: 40 mg Polysaccharide Iron Complex (Ferrex-150) 150 mg PO DAILY [facility] Last Admin: 11/12/16 11:42 Dose: 150 mg Spironolactone (Aldactone) 25 mg PO BID [facility] Last Admin: 11/12/16 09:11 Dose: 25 mg Torsemide (Demadex) 10 mg PO Q12H [facility] Last Admin: 11/12/16 09:53 Dose: 10 mg Tramadol HCl (Ultram) 50 mg PO TID PRN PRN Reason: Pain, moderate (4-7) Last Admin: 11/08/16 21:56 Dose: 50 mg - Labs Labs: 11/12/16 06:30 11/12/16 06:30 PT 12.0 Seconds (9.9-11.8) H 10/20/16 09:29 INR 1.11 (0.93-1.08) H 10/20/16 09:29 APTT 27.8 Seconds (23.7-30.8) 10/20/16 09:29 - Constitutional Appears: Non-toxic, No Acute Distress - Head Exam Head Exam: NORMAL INSPECTION - Eye Exam Eye Exam: Normal appearance. absent: Scleral icterus - ENT Exam ENT Exam: Mucous Membranes Moist - Respiratory Exam Additional comments: Decreased R basal breath sounds; - Cardiovascular Exam Cardiovascular Exam: Tachycardia, REGULAR RHYTHM, +S1, +S2. absent: Gallop - GI/Abdominal Exam GI & Abdominal Exam: Soft. absent: Distended, Tenderness - Exam Additional comments: pickens in place; - Extremities Exam Additional comments: markedly edematous legs extending to lower back, but improved; - Psychiatric Exam Additional comments: somewhat depressed mood; - Skin Skin Exam: Normal Color, Warm. absent: Cyanosis Assessment and Plan (1) Shock Status: Resolved (2) Acute renal failure Assessment & Plan: Cardiorenal etiology; BUN slightly increased, may be indicative of decrease renal perfusion off inotrope; BP also decreased; agree with restarting low dose dobutamine; continue diuresis with torsemide 10 mg bid and aldactone 25 mg bid; Status: Acute (3) Hyponatremia Assessment & Plan: Again worsened, due to severely decompensated CHF; will give another dose of tolvaptan 30 mg today; may need standing dose as outpatient; will work on getting authorization; giving KCl 40 meq (keep K > 4 to avoid arrhythmias, will also help correct hyponatremia); Status: Acute (4) CHF (congestive heart failure) Assessment & Plan: Severely decompensated systolic CHF w/ MR; overall improved; put back on inotrope due to decreased BP; continuing with aggressive diuresis as mentioned above; Status: Acute (5) Anemia Assessment & Plan: Hgb stable; continue IV iron to complete 10 doses; Status: Acute (6) Metabolic alkalosis Assessment & Plan: Improved on diamox and aldactone; diamox stopped to avoid hypokalemia/ hyponatremia; will re-assess daily; Status: Acute
--- NOTE | 2016-11-12 12:43 | CP.PCM.PN ---
Subjective - Date & Time of Evaluation Date of Evaluation: 11/12/16 Time of Evaluation: 11:30 - Subjective Subjective: Comfortable, no fevers overnight, not in distress. Objective - Vital Signs/Intake and Output Vital Signs (last 24 hours): Temp Pulse Resp BP Pulse Ox 97.4 F L 107 H 18 98/63 L 100 11/12/16 06:00 11/12/16 06:00 11/12/16 06:00 11/12/16 06:00 11/12/16 06:00 Intake and Output: 11/12/16 11/12/16 06:59 18:59 Intake Total 430 Output Total 2500 Balance -2069 - Medications Medications: Current Medications Apixaban (Eliquis) 5 mg PO BID [facility] PRN Reason: Protocol Last Admin: 11/11/16 17:20 Dose: 5 mg Bacitracin (Bacitracin) 0 gm TOP BID [facility] Last Admin: 11/11/16 17:20 Dose: 1 applic Digoxin (Lanoxin) 0.125 mg PO 1400 [facility] Last Admin: 11/11/16 13:13 Dose: 0.125 mg Iron Sucrose 100 mg/ Sodium (Chloride) 105 mls @ 210 mls/hr IVPB DAILY [facility] Stop: 11/17/16 21:50 Last Admin: 11/11/16 09:40 Dose: 210 mls/hr Dobutamine HCl/Dextrose (Dobutamine/Dextrose 5% 500mg/250ml) 500 mg in 250 mls @ 6.246 mls/hr IV .Q24H PRN; Protocol; 2.5 MCG/KG/MIN PRN Reason: TITRATE PER PROTOCOL Last Admin: 11/08/16 17:15 Dose: 6.246 mls/hr Insulin Detemir (Levemir) 20 unit SC DAILY [facility] Last Admin: 11/11/16 09:45 Dose: 20 unit Insulin Human Lispro (Humalog) 5 units SC ACHS [facility] Last Admin: 11/11/16 22:22 Dose: 5 units Insulin Human Lispro (Humalog Low) 0 units SC ACHS [facility] PRN Reason: Protocol Last Admin: 11/11/16 22:23 Dose: Not Given Lactobacillus Acidophilus (Bacid Acidophilus) 1 cap PO BID [facility] Last Admin: 11/11/16 17:20 Dose: Not Given Metoprolol Tartrate (Lopressor) 25 mg PO BID [facility] Last Admin: 11/11/16 17:20 Dose: Not Given Nystatin (Nystop Topical Powder) 0 gm TOP DAILY [facility] Last Admin: 11/11/16 09:51 Dose: 1 applic Nystatin/Triamcinolone Acetonide (Nystatin/Triamcinolone Ointment) 0 gm TOP BID [facility] Last Admin: 11/11/16 17:20 Dose: 1 applic Pantoprazole Sodium (Protonix Ec Tab) 40 mg PO 0600 [facility] Last Admin: 11/12/16 05:54 Dose: 40 mg Polysaccharide Iron Complex (Ferrex-150) 150 mg PO DAILY [facility] Last Admin: 11/11/16 09:45 Dose: 150 mg Spironolactone (Aldactone) 25 mg PO BID [facility] Last Admin: 11/11/16 17:20 Dose: 25 mg Torsemide (Demadex) 10 mg PO Q12H [facility] Last Admin: 11/11/16 21:25 Dose: 10 mg Tramadol HCl (Ultram) 50 mg PO TID PRN PRN Reason: Pain, moderate (4-7) Last Admin: 11/08/16 21:56 Dose: 50 mg - Labs Labs: 11/12/16 06:30 11/11/16 06:00 PT 12.0 Seconds (9.9-11.8) H 10/20/16 09:29 INR 1.11 (0.93-1.08) H 10/20/16 09:29 APTT 27.8 Seconds (23.7-30.8) 10/20/16 09:29 - Constitutional Appears: Non-toxic, No Acute Distress - Head Exam Head Exam: NORMAL INSPECTION - Neck Exam Neck Exam: absent: Meningismus - Respiratory Exam Respiratory Exam: Decreased Breath Sounds - Cardiovascular Exam Cardiovascular Exam: +S1, +S2 - GI/Abdominal Exam GI & Abdominal Exam: Soft. absent: Tenderness Assessment and Plan - Assessment and Plan (Free Text) Plan: Assessment S/P severe sepsis S/P hypoxic ventilator-dependent respiratory failure probably due to bilateral lower lobe healthcare-associated pneumonia with possible gram positive cocci, gram negative bacilli and/or atypical organisms, with associated hyperglycemic, hyperosmolar state with also acute pancreatitis - clinically improved and continues to be off antibiotics - still with leukocytosis, but probably reactive VRE in the urine, probably asymptomatic bacteriuria, continues to be asymptomatic chronic congestive heart failure due to cardiomyopathy elevated Alk phos and transaminases in a patient with pancreatitis as well as hepatic congestion history of healthcare-associated pneumonia, right middle lobe history of bilateral healthcare-associated pneumonia in this patient chronic heart failure S/P acute cholecystitis, S/P laparoscopic cholecystectomy CAD with chronic CHF DM HTN history of migraines bipolar disorder Plan will continue to monitor off antibiotics since she is at risk for nosocomial infections; will continue to monitor WBC count - patient may need further Hematology work up for the leukocytosis since she has a history of lymphoma in the past
[2016-11-12] MEDS ORDERED: Potassium Chloride 20 mEq ER Tab PO ONE (12:48)
--- NOTE | 2016-11-12 13:50 | US ---
PROCEDURE: Lower extremity STAR exam HISTORY: Peripheral vascular disease with pain. PHYSICIAN(S): Kal Peña MD. FINDINGS: The resting STAR's are normal: right, 0.96and left, 0.99. The brachial systolic pressures are symmetric. The low thigh pressures and waveforms are relatively normal. The calf PVR waveforms augment normally. No significant gradients are noted across the thighs. The ankle and metatarsal waveforms are relatively normal and symmetric. No significant pressure gradients are noted across the lower legs. IMPRESSION: 1. Relatively normal STAR and PVR examination at rest.
--- NOTE | 2016-11-12 15:41 | PN ---
DATE: SUBJECTIVE: The patient is noted to be borderline hypertensive. Dobutrex infusion was started at 2.5 mcg/kg/minute. The patient denies any chest pain. Her lower and upper extremities edema is improving. PHYSICAL EXAMINATION: VITAL SIGNS: Blood pressure 103/65, heart rate 111, temperature 97, respirations 18. HEENT: Pale conjunctivae. CHEST: Diminished breath sounds over the bases. HEART: S1 and S2 regular. EXTREMITIES: 2+ pitting edema. LABORATORY DATA: Hemoglobin and hematocrit 8.9 and 28.0, white count and platelet count 11.9 and 314,000. SMA-7; sodium 131, potassium 3.7, chloride 97, CO2 is 29, glucose 88, BUN 25, creatinine 1.0. ASSESSMENT: 1. Dilated cardiomyopathy and anasarca. 2. Chronic right subclavian thrombosis. 3. Anemia. 4. Improved renal insufficiency. 5. History of depression. 6. Hyponatremia. CONDITION: Continue Aldactone 25 mg once a day, Demadex 15 mg p.o. twice a day, Eliquis 5 mg twice a day, Dobutrex once a day, Lanoxin 0.125 mg daily, Toprol 25 mg twice a day. The most recent digoxin level performed on November 04 is 0.8, I will repeat one more digoxin level. Today, case was discussed with ore charger as well as Dr. Moran and the medical attending. Cesar Kinney MD
--- NOTE | 2016-11-12 18:35 | CP.PCM.PN ---
<Moses,Christiano - Last Filed: 11/12/16 20:04> Subjective - Date & Time of Evaluation Date of Evaluation: 11/12/16 Time of Evaluation: 06:20 - Subjective Subjective: Patient seen and examined at bedside. Nurse reports that patient's right lower extremity is cold and pulses are diminished compared to the left. Patient moans in acknowledgement, states legs are tender to touch. Objective - Vital Signs/Intake and Output Vital Signs (last 24 hours): Temp Pulse Resp BP Pulse Ox 97 F L 122 H 16 116/75 98 11/12/16 17:24 11/12/16 18:00 11/12/16 17:24 11/12/16 17:24 11/12/16 17:24 Intake and Output: 11/12/16 11/12/16 06:59 18:59 Intake Total 430 540 Output Total 2500 800 Balance -0590 -260 - Medications Medications: Current Medications Apixaban (Eliquis) 5 mg PO BID [facility] PRN Reason: Protocol Last Admin: 11/12/16 17:24 Dose: 5 mg Bacitracin (Bacitracin) 0 gm TOP BID [facility] Last Admin: 11/12/16 17:35 Dose: 1 applic Digoxin (Lanoxin) 0.125 mg PO 1400 [facility] Last Admin: 11/11/16 13:13 Dose: 0.125 mg Iron Sucrose 100 mg/ Sodium (Chloride) 105 mls @ 210 mls/hr IVPB DAILY [facility] Stop: 11/17/16 21:50 Last Admin: 11/12/16 09:31 Dose: 210 mls/hr Dobutamine HCl/Dextrose (Dobutamine/Dextrose 5% 500mg/250ml) 500 mg in 250 mls @ 5.817 mls/hr IV .Q24H PRN; Protocol; 2.5 MCG/KG/MIN PRN Reason: TITRATE PER PROTOCOL Last Admin: 11/12/16 11:39 Dose: 5.817 mls/hr Insulin Detemir (Levemir) 20 unit SC DAILY [facility] Last Admin: 11/12/16 09:10 Dose: 20 unit Insulin Human Lispro (Humalog) 5 units SC ACHS [facility] Last Admin: 11/12/16 17:28 Dose: 5 units Insulin Human Lispro (Humalog Low) 0 units SC ACHS [facility] PRN Reason: Protocol Last Admin: 11/12/16 17:29 Dose: 2 units Lactobacillus Acidophilus (Bacid Acidophilus) 1 cap PO BID [facility] Last Admin: 11/12/16 17:24 Dose: 1 cap Metoprolol Tartrate (Lopressor) 25 mg PO BID [facility] Last Admin: 11/12/16 09:12 Dose: Not Given Nystatin (Nystop Topical Powder) 0 gm TOP DAILY [facility] Last Admin: 11/12/16 09:14 Dose: 1 applic Nystatin/Triamcinolone Acetonide (Nystatin/Triamcinolone Ointment) 0 gm TOP BID [facility] Last Admin: 11/12/16 17:35 Dose: 1 applic Pantoprazole Sodium (Protonix Ec Tab) 40 mg PO 0600 [facility] Last Admin: 11/12/16 05:54 Dose: 40 mg Polysaccharide Iron Complex (Ferrex-150) 150 mg PO DAILY [facility] Last Admin: 11/12/16 11:42 Dose: 150 mg Spironolactone (Aldactone) 25 mg PO BID [facility] Last Admin: 11/12/16 17:24 Dose: 25 mg Torsemide (Demadex) 10 mg PO Q12H [facility] Last Admin: 11/12/16 09:53 Dose: 10 mg Tramadol HCl (Ultram) 50 mg PO TID PRN PRN Reason: Pain, moderate (4-7) Last Admin: 11/08/16 21:56 Dose: 50 mg - Labs Labs: 11/12/16 06:30 11/12/16 06:30 PT 12.0 Seconds (9.9-11.8) H 10/20/16 09:29 INR 1.11 (0.93-1.08) H 10/20/16 09:29 APTT 27.8 Seconds (23.7-30.8) 10/20/16 09:29 - Constitutional Appears: Well, No Acute Distress - Head Exam Head Exam: ATRAUMATIC, NORMOCEPHALIC - Eye Exam Eye Exam: EOMI, Normal appearance, PERRL - ENT Exam ENT Exam: Mucous Membranes Moist, Normal Oropharynx - Neck Exam Neck Exam: Normal Inspection. absent: Tenderness - Respiratory Exam Respiratory Exam: Rales, Rhonchi, Stridor - Cardiovascular Exam Cardiovascular Exam: Tachycardia, JVD, RRR - GI/Abdominal Exam GI & Abdominal Exam: Distended (mildly). absent: Guarding, Rigid, Tenderness, Rebound - Rectal Exam Rectal Exam: Deferred - Extremities Exam Additional comments: right posterior tibial and dorsalis pedis pulses graded 1/4, left graded 2/4, respectively. - Neurological Exam Neurological Exam: Awake, CN II-XII Intact, Oriented x3 - Psychiatric Exam Psychiatric exam: Flat Affect. absent: Agitated - Skin Skin Exam: Dry, Intact, Normal Color Assessment and Plan - Assessment and Plan (Free Text) Assessment: Assessment: 51 y/o female with PMHx of DM2, CHF (EF 30% in 10/2016), HTN, chronic pulmonary effusion, HTN, DVT, PE, hypothyroidism, PSH of lap mitchell in 05/2016 and psych hx of schizophrenia and Bipolar disorder presented to the ED with complaints of abdominal pain. ECHO (10/18): EF 30% Plan: 1) Dilated cardiomyopathy with anasarca: Aldactone 25 mg, torsemide 15 mg BID, Dobutamine drip 2.5 mcg/kg/min BP has risen from 90/60 range to 120/80 range. HR is within the same range. 2) Chronic Right Subclavian Vein thrombosis: Eliquis 5 mg PO x 2 Resting STAR of right was 0.96 and left was 0.99, normal. 3) Anemia: Days 6 of IV Iron Therapy completed, ten day course recommended by Nephrology. C/W Ferrex 150 daily 4)Hyponatremia: 30 mg of Tolvaptan, serum Na at 131 today, will follow with daily BMP. 5) Metabolic alkalosis: Diamox held due to worsening of hypokalemia/ hyponatremia. 6)Hypothyroidism: C/W ____ 7) DM: Humalog 5 units ACHS, humalog low-dose sliding scale, BS in the 240-160 range. <Anne Marie Moran - Last Filed: 11/12/16 21:09> Objective - Vital Signs/Intake and Output Vital Signs (last 24 hours): Temp Pulse Resp BP Pulse Ox 97 F L 122 H 16 116/75 98 11/12/16 17:24 11/12/16 18:00 11/12/16 17:24 11/12/16 17:24 11/12/16 17:24 Intake and Output: 11/12/16 11/13/16 18:59 06:59 Intake Total 540 Output Total 800 Balance -260 - Medications Medications: Current Medications Apixaban (Eliquis) 5 mg PO BID [facility] PRN Reason: Protocol Last Admin: 11/12/16 17:24 Dose: 5 mg Bacitracin (Bacitracin) 0 gm TOP BID [facility] Last Admin: 11/12/16 17:35 Dose: 1 applic Digoxin (Lanoxin) 0.125 mg PO 1400 [facility] Last Admin: 11/11/16 13:13 Dose: 0.125 mg Iron Sucrose 100 mg/ Sodium (Chloride) 105 mls @ 210 mls/hr IVPB DAILY [facility] Stop: 11/17/16 21:50 Last Admin: 11/12/16 09:31 Dose: 210 mls/hr Dobutamine HCl/Dextrose (Dobutamine/Dextrose 5% 500mg/250ml) 500 mg in 250 mls @ 5.817 mls/hr IV .Q24H PRN; Protocol; 2.5 MCG/KG/MIN PRN Reason: TITRATE PER PROTOCOL Last Admin: 11/12/16 11:39 Dose: 5.817 mls/hr Insulin Detemir (Levemir) 20 unit SC DAILY [facility] Last Admin: 11/12/16 09:10 Dose: 20 unit Insulin Human Lispro (Humalog) 5 units SC ACHS [facility] Last Admin: 11/12/16 17:28 Dose: 5 units Insulin Human Lispro (Humalog Low) 0 units SC ACHS [facility] PRN Reason: Protocol Last Admin: 11/12/16 17:29 Dose: 2 units Lactobacillus Acidophilus (Bacid Acidophilus) 1 cap PO BID [facility] Last Admin: 11/12/16 17:24 Dose: 1 cap Metoprolol Tartrate (Lopressor) 25 mg PO BID [facility] Last Admin: 11/12/16 09:12 Dose: Not Given Nystatin (Nystop Topical Powder) 0 gm TOP DAILY [facility] Last Admin: 11/12/16 09:14 Dose: 1 applic Nystatin/Triamcinolone Acetonide (Nystatin/Triamcinolone Ointment) 0 gm TOP BID [facility] Last Admin: 11/12/16 17:35 Dose: 1 applic Pantoprazole Sodium (Protonix Ec Tab) 40 mg PO 0600 [facility] Last Admin: 11/12/16 05:54 Dose: 40 mg Polysaccharide Iron Complex (Ferrex-150) 150 mg PO DAILY [facility] Last Admin: 11/12/16 11:42 Dose: 150 mg Spironolactone (Aldactone) 25 mg PO BID [facility] Last Admin: 11/12/16 17:24 Dose: 25 mg Torsemide (Demadex) 10 mg PO Q12H [facility] Last Admin: 11/12/16 20:26 Dose: 10 mg Tramadol HCl (Ultram) 50 mg PO TID PRN PRN Reason: Pain, moderate (4-7) Last Admin: 11/08/16 21:56 Dose: 50 mg - Labs Labs: 11/12/16 06:30 11/12/16 06:30 PT 12.0 Seconds (9.9-11.8) H 10/20/16 09:29 INR 1.11 (0.93-1.08) H 10/20/16 09:29 APTT 27.8 Seconds (23.7-30.8) 10/20/16 09:29 Attending/Attestation - Attestation I have personally seen and examined this patient.: Yes I have fully participated in the care of the patient.: Yes I have reviewed all pertinent clinical information, including history, physical exam and plan: Yes Notes (Text): 11/12/16 21:03 Patient seen and examined at bedside. vitals,labs, notes and orders reviewed. Episodes of hypotension noted. Patient denies any new complaints, right foot slightly hypothermic and pulses present but feeble and STAR/PVR obtained and is normal. Plan to re-start dobutamine drip and hold BBlcokers/digoxin today. Multi-speciality follow up ongoing. Utility Hand note reviewed and plan discussed. Continue chronic medications as outlined in the note above.
[2016-11-13] MEDS: Pantoprazole 40 mg EC Tab PO SCH (05:36)
[2016-11-13] MEDS: Insulin Lispro (humaLOG) LOW Coverage SC SCH ×4 (07:30→22:29)
--- NOTE | 2016-11-13 08:29 | CP.PCM.PN ---
Subjective - Date & Time of Evaluation Date of Evaluation: 11/13/16 Time of Evaluation: 08:25 - Subjective Subjective: Patient reports breathing improved; tolerated diet yesterday; reports having some chills earlier, no subjective fever; Objective - Vital Signs/Intake and Output Vital Signs (last 24 hours): Temp Pulse Resp BP Pulse Ox 98.7 F 123 H 19 110/53 L 100 11/13/16 06:00 11/13/16 06:00 11/13/16 06:00 11/13/16 06:00 11/13/16 06:00 Intake and Output: 11/13/16 11/13/16 06:59 18:59 Intake Total 441 Output Total 1880 Balance -1439 - Medications Medications: Current Medications Apixaban (Eliquis) 5 mg PO BID [facility] PRN Reason: Protocol Last Admin: 11/12/16 17:24 Dose: 5 mg Bacitracin (Bacitracin) 0 gm TOP BID [facility] Last Admin: 11/12/16 17:35 Dose: 1 applic Digoxin (Lanoxin) 0.125 mg PO 1400 [facility] Last Admin: 11/11/16 13:13 Dose: 0.125 mg Iron Sucrose 100 mg/ Sodium (Chloride) 105 mls @ 210 mls/hr IVPB DAILY [facility] Stop: 11/17/16 21:50 Last Admin: 11/12/16 09:31 Dose: 210 mls/hr Dobutamine HCl/Dextrose (Dobutamine/Dextrose 5% 500mg/250ml) 500 mg in 250 mls @ 5.817 mls/hr IV .Q24H PRN; Protocol; 2.5 MCG/KG/MIN PRN Reason: TITRATE PER PROTOCOL Last Admin: 11/12/16 11:39 Dose: 5.817 mls/hr Insulin Detemir (Levemir) 20 unit SC DAILY [facility] Last Admin: 11/12/16 09:10 Dose: 20 unit Insulin Human Lispro (Humalog) 5 units SC ACHS [facility] Last Admin: 11/12/16 22:08 Dose: Not Given Insulin Human Lispro (Humalog Low) 0 units SC ACHS [facility] PRN Reason: Protocol Last Admin: 11/12/16 22:09 Dose: Not Given Lactobacillus Acidophilus (Bacid Acidophilus) 1 cap PO BID [facility] Last Admin: 11/12/16 17:24 Dose: 1 cap Metoprolol Tartrate (Lopressor) 25 mg PO BID [facility] Last Admin: 11/12/16 09:12 Dose: Not Given Nystatin (Nystop Topical Powder) 0 gm TOP DAILY [facility] Last Admin: 11/12/16 09:14 Dose: 1 applic Nystatin/Triamcinolone Acetonide (Nystatin/Triamcinolone Ointment) 0 gm TOP BID [facility] Last Admin: 11/12/16 17:35 Dose: 1 applic Pantoprazole Sodium (Protonix Ec Tab) 40 mg PO 0600 [facility] Last Admin: 11/13/16 05:36 Dose: 40 mg Polysaccharide Iron Complex (Ferrex-150) 150 mg PO DAILY [facility] Last Admin: 11/12/16 11:42 Dose: 150 mg Spironolactone (Aldactone) 25 mg PO BID [facility] Last Admin: 11/12/16 17:24 Dose: 25 mg Torsemide (Demadex) 10 mg PO Q12H [facility] Last Admin: 11/12/16 20:26 Dose: 10 mg Tramadol HCl (Ultram) 50 mg PO TID PRN PRN Reason: Pain, moderate (4-7) Last Admin: 11/13/16 01:14 Dose: 50 mg - Labs Labs: 11/12/16 06:30 11/12/16 06:30 PT 12.0 Seconds (9.9-11.8) H 10/20/16 09:29 INR 1.11 (0.93-1.08) H 10/20/16 09:29 APTT 27.8 Seconds (23.7-30.8) 10/20/16 09:29 - Constitutional Appears: Non-toxic, No Acute Distress - Head Exam Head Exam: NORMAL INSPECTION - Eye Exam Eye Exam: Normal appearance - ENT Exam ENT Exam: Mucous Membranes Moist - Respiratory Exam Respiratory Exam: absent: Rales, Rhonchi, Wheezes Additional comments: Decreased R basal sounds but improved; - Cardiovascular Exam Cardiovascular Exam: Tachycardia, REGULAR RHYTHM, +S1, +S2 - GI/Abdominal Exam GI & Abdominal Exam: Soft. absent: Distended, Tenderness - Exam Additional comments: pickens in place; - Neurological Exam Neurological Exam: Alert, Awake - Skin Skin Exam: Normal Color, Warm. absent: Cyanosis Assessment and Plan (1) Shock Status: Resolved (2) Acute renal failure Assessment & Plan: Cardiorenal etiology; resolving with inotropic support and aggressive diuresis; UO increased after restarting inotrope; continue same, awaiting labs from today; Status: Acute (3) Hyponatremia Assessment & Plan: In setting of severely decompensated systolic CHF, getting tolvaptan frequently (last yesterday), will re-assess for another dose today pending labs; keep K > 4.0; Status: Acute (4) CHF (congestive heart failure) Assessment & Plan: Severely decompensated systolic CHF, improved with inotropic support and aggressive diuresis; continue same; Status: Acute (5) Anemia Assessment & Plan: Due to acute/chronic illness and iron deficiency; continue IV iron to complete 10 doses; Status: Acute (6) Metabolic alkalosis Assessment & Plan: Improved, due to aggressive loop diuretics; now off diamox, will re-assess need to restart; continue aldactone 25 mg bid (will also help correct alkalosis); Status: Acute
[2016-11-13] MEDS: Insulin Lispro 1 UNITS/0.01 ML SC SCH ×4 (08:44→22:29)
[2016-11-13 09:24] LABS: BASO # 0.02 K/mm3 (0.0-2.0); BASO % 0.1 % (0.0-3.0); EOS # 0.2 (0.0-0.7); EOS % 1.1 % (1.5-5.0); GRAN # 11.53 (1.4-6.5); HEMOGLOBIN 9.1 gm/dL (12.0-16.0); LYMPH # 1.2 (1.2-3.4); LYMPH % 8.9 % (22.0-35.0); MEAN CELL VOLUME 79.6 fL (80.0-105.0); MEAN CORPUSCULAR HEMOGLOBIN 25.4 pg (25.0-35.0); MEAN CORPUSCULAR HGB CONC 31.9 g/dl (31.0-37.0); MEAN PLATELET VOLUME 9.2 fl (7.0-11.0); MONO # 0.5 (0.1-0.6); MONO % 3.9 % (1.0-6.0); PLATELET COUNT 363 10^3/uL (120.0-450.0); RBC 3.58 10^6/uL (3.5-6.1); RED CELL DISTRIBUTION WIDTH 22.2 % (11.5-14.5); WHITE BLOOD COUNT 13.4 10^3/ul (4.5-11.0)
[2016-11-13 09:33] LABS: ALB/GLOB RATIO 0.9 (1.1-1.8); ALBUMIN 2.7 g/dL (3.0-4.8); ALT/SGPT 65 U/L (7-56); AST/SGOT 39 U/L (15-39); BLOOD UREA NITROGEN 21 mg/dL (7-21); CALCIUM 8.8 mg/dL (8.4-10.5); GFR AFRICAN-AMERICAN > 60; GFR NON-AFRICAN AMERICAN 58; MAGNESIUM 1.6 mg/dL (1.7-2.2)
[2016-11-13] MEDS ORDERED: Magnesium Sulfate 2 GM in Sodium Chloride 0.9% 100 ML IVPB ONE (09:44)
[2016-11-13] MEDS: Nystatin-Triamcinolone Ointment(30 gm) TOP SCH ×2 (10:16→17:20)
[2016-11-13] MEDS: Bacitracin Ointment 30 GM TUBE TOP SCH ×2 (10:18→17:19)
[2016-11-13] MEDS: Iron Complex Polysacch 150mg Cap PO SCH (10:19)
[2016-11-13] MEDS: Lactobacillus Acidophilus 500 MU Cap PO SCH ×2 (10:19→17:19)
[2016-11-13] MEDS: Insulin Detemir 100 units/ml Vial (Levemir) SC SCH (10:20)
[2016-11-13] MEDS: Nystatin 100,000 Units/gm Topical Pow(15 gm) TOP SCH (10:20)
--- NOTE | 2016-11-13 10:55 | CP.PCM.PN ---
Addendum entered and electronically signed by Gin Pires DO 11/13/16 11:05: Assessment: 51 y/o female with PMHx of DM2, CHF (EF 30% in 10/2016), HTN, chronic pulmonary effusion, HTN, DVT, PE, hypothyroidism, PSH of lap mitchell in 2016 and psych hx of schizophrenia and Bipolar disorder presented to the ED with complaints of abdominal pain. ECHO (10/18): EF 30% Original Note: <Gin Pires - Last Filed: 11/13/16 11:04> Subjective - Date & Time of Evaluation Date of Evaluation: 11/13/16 Time of Evaluation: 08:20 - Subjective Subjective: Patient seen and examined at bedside. Per nursing, no acute events overnight. Dobutamine drip restarted yesterday, BPs stable. No complaints at this time. OOB to chair and tolerating diet. Denies headache, dizziness, cp, sob, abdominal pain, urinary symptoms. LE ultrasound showed normal STAR/PVR. Objective - Vital Signs/Intake and Output Vital Signs (last 24 hours): Temp Pulse Resp BP Pulse Ox 98.7 F 123 H 19 110/53 L 100 11/13/16 06:00 11/13/16 06:00 11/13/16 06:00 11/13/16 06:00 11/13/16 06:00 Intake and Output: 11/13/16 11/13/16 06:59 18:59 Intake Total 441 Output Total 1880 Balance -1439 - Medications Medications: Current Medications Apixaban (Eliquis) 5 mg PO BID [facility] PRN Reason: Protocol Last Admin: 11/13/16 10:19 Dose: 5 mg Bacitracin (Bacitracin) 0 gm TOP BID [facility] Last Admin: 11/13/16 10:18 Dose: 1 applic Digoxin (Lanoxin) 0.125 mg PO 1400 [facility] Last Admin: 11/11/16 13:13 Dose: 0.125 mg Iron Sucrose 100 mg/ Sodium (Chloride) 105 mls @ 210 mls/hr IVPB DAILY [facility] Stop: 11/17/16 21:50 Last Admin: 11/13/16 10:18 Dose: 210 mls/hr Dobutamine HCl/Dextrose (Dobutamine/Dextrose 5% 500mg/250ml) 500 mg in 250 mls @ 5.817 mls/hr IV .Q24H PRN; Protocol; 2.5 MCG/KG/MIN PRN Reason: TITRATE PER PROTOCOL Last Admin: 11/12/16 11:39 Dose: 5.817 mls/hr Insulin Detemir (Levemir) 20 unit SC DAILY [facility] Last Admin: 11/13/16 10:20 Dose: 20 unit Insulin Human Lispro (Humalog) 5 units SC ACHS [facility] Last Admin: 11/13/16 08:44 Dose: 5 units Insulin Human Lispro (Humalog Low) 0 units SC ACHS [facility] PRN Reason: Protocol Last Admin: 11/12/16 22:09 Dose: Not Given Lactobacillus Acidophilus (Bacid Acidophilus) 1 cap PO BID [facility] Last Admin: 11/13/16 10:19 Dose: 1 cap Metoprolol Tartrate (Lopressor) 25 mg PO BID [facility] Last Admin: 11/12/16 09:12 Dose: Not Given Nystatin (Nystop Topical Powder) 0 gm TOP DAILY [facility] Last Admin: 11/12/16 09:14 Dose: 1 applic Nystatin/Triamcinolone Acetonide (Nystatin/Triamcinolone Ointment) 0 gm TOP BID [facility] Last Admin: 11/13/16 10:16 Dose: 1 applic Pantoprazole Sodium (Protonix Ec Tab) 40 mg PO 0600 [facility] Last Admin: 11/13/16 05:36 Dose: 40 mg Polysaccharide Iron Complex (Ferrex-150) 150 mg PO DAILY [facility] Last Admin: 11/13/16 10:19 Dose: 150 mg Spironolactone (Aldactone) 25 mg PO BID [facility] Last Admin: 11/13/16 10:19 Dose: 25 mg Torsemide (Demadex) 10 mg PO Q12H [facility] Last Admin: 11/12/16 20:26 Dose: 10 mg Tramadol HCl (Ultram) 50 mg PO TID PRN PRN Reason: Pain, moderate (4-7) Last Admin: 11/13/16 01:14 Dose: 50 mg - Labs Labs: 11/13/16 09:19 11/13/16 09:19 PT 12.0 Seconds (9.9-11.8) H 10/20/16 09:29 INR 1.11 (0.93-1.08) H 10/20/16 09:29 APTT 27.8 Seconds (23.7-30.8) 10/20/16 09:29 - Constitutional Appears: Well, No Acute Distress - Head Exam Head Exam: ATRAUMATIC, NORMAL INSPECTION - Eye Exam Eye Exam: EOMI, Normal appearance Pupil Exam: NORMAL ACCOMODATION - ENT Exam ENT Exam: Mucous Membranes Moist - Neck Exam Neck Exam: Full ROM - Respiratory Exam Respiratory Exam: Decreased Breath Sounds. absent: Rales, Rhonchi, Wheezes - Cardiovascular Exam Cardiovascular Exam: Tachycardia, +S1, +S2. absent: Murmur - GI/Abdominal Exam GI & Abdominal Exam: Distended, Soft. absent: Guarding, Rigid, Tenderness - Exam Additional comments: Witt in draining clear yellow urine - Extremities Exam Extremities Exam: Pedal Edema Additional comments: Upper extremity edema improving - Back Exam Back Exam: NORMAL INSPECTION - Neurological Exam Neurological Exam: Alert, Awake, Oriented x3 - Psychiatric Exam Psychiatric exam: Normal Affect, Normal Mood - Skin Skin Exam: Normal Color, Warm Assessment and Plan - Assessment and Plan (Free Text) Plan: 1. Septic shock (tachycardia), likely a/w cardiogenic cause - Septic shock resolved, no active signs of infection - Patient still tachycardic, dobutamine drip restarted yesterday for low BPs - Metoprolol on hold, Digoxin on hold - Cardiology on consult, will f/u recommendations 2. Abdominal pain likely due to edema/anasarca and CHF state, improving - Pain control - Tramadol prn - Continue Fluid restriction - Daily weights unreliable - Monitor strict I/Os - GI consulted, recs appreciated 3. Hyponatremia - Serum Na 130 - Continue Aldactone 25mg BID - Monitor CMPs - Nephrology on consult, f/u recommendations 4. 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 Metabolic Alkalosis - Bicarb 27 today, improved - Torsemide resumed, Diamox discontinued - Nephro on consult, f/u recommendations 6. Anemia (multifatorial) likely 2/2 chronic disease and Iron deficiency - S/P 1 unit PRBcs on 11/08/16 - Hgb stable at 9.1 this am - Continue IV iron - Per GI, no plan for endoscopy/colonoscopy at this time 7. Leukocytosis - Blood cx and urine cx negative - s/p Merrem - WBC 13.4 today, elevated - Low grade temp of 100.2 last night, currently afebrile, will continue to monitor - Per previous documentation, patient has a history of lymphoma - ID consulted, recs appreciated 8. Hypotension improving, likely due to sepsis - Dobutamine restarted yesterday, BPs stable - Abdominal dopplers: patent portal vein with hepatopetal flow - Will f/u with case management and Social work in regards to placement 9. OLLIE likely due to shock (prerenal in nature due to low intravascular volume) - Cr improving - Nephro on consult, f/u recommendations 10. Transaminitis - Likely 2/2 shocked liver - AST/ALT continues to trend down - Avoid hepatic toxins - Continue to monitor 11. Hx UTI 10/19 grew VRE (contact precautions) - UCx currently negative - Witt in place (clear yellow urine) - Nystatin powder/ointment and Bacitracin for jr-vaginal yeast infection - ID consulted, recs appreciated 12. DM2, HONK resolved - Continue Levemir to 20U - c/w Lispro 5u, and ISS - Accuchecks QACHS 13. Hypothyroid - Continue Synthroid 125mcg PO 14. Hypokalemia, resolved - K+ today 4.1 - F/U am CMP 15. Hypomagnesemia - Mag 1.6 today - Repleted with 2gm Mag/NS, - f/u am labs 15. GI/DVT ppx - Eliquis 5mg BID (Hx of DVT/PE) - Protonix 40mg PO daily Gin Pires PGY-1 <Anne Marie Moran - Last Filed: 11/13/16 18:53> Objective - Vital Signs/Intake and Output Vital Signs (last 24 hours): Temp Pulse Resp BP Pulse Ox 98.2 F 113 H 20 122/69 100 11/13/16 16:50 11/13/16 16:50 11/13/16 16:50 11/13/16 16:50 11/13/16 06:00 Intake and Output: 11/13/16 11/13/16 06:59 18:59 Intake Total 441 480 Output Total 1880 850 Balance -1439 -370 - Medications Medications: Current Medications Apixaban (Eliquis) 5 mg PO BID [facility] PRN Reason: Protocol Last Admin: 11/13/16 17:17 Dose: 5 mg Bacitracin (Bacitracin) 0 gm TOP BID [facility] Last Admin: 11/13/16 17:19 Dose: 1 applic Digoxin (Lanoxin) 0.125 mg PO 1400 [facility] Last Admin: 11/11/16 13:13 Dose: 0.125 mg Iron Sucrose 100 mg/ Sodium (Chloride) 105 mls @ 210 mls/hr IVPB DAILY [facility] Stop: 11/17/16 21:50 Last Admin: 11/13/16 10:18 Dose: 210 mls/hr Dobutamine HCl/Dextrose (Dobutamine/Dextrose 5% 500mg/250ml) 500 mg in 250 mls @ 5.817 mls/hr IV .Q24H PRN; Protocol; 2.5 MCG/KG/MIN PRN Reason: TITRATE PER PROTOCOL Last Admin: 11/12/16 11:39 Dose: 5.817 mls/hr Insulin Detemir (Levemir) 20 unit SC DAILY [facility] Last Admin: 11/13/16 10:20 Dose: 20 unit Insulin Human Lispro (Humalog) 5 units SC ACHS [facility] Last Admin: 11/13/16 16:29 Dose: 5 units Insulin Human Lispro (Humalog Low) 0 units SC ACHS [facility] PRN Reason: Protocol Last Admin: 11/13/16 16:21 Dose: Not Given Lactobacillus Acidophilus (Bacid Acidophilus) 1 cap PO BID [facility] Last Admin: 11/13/16 17:19 Dose: 1 cap Metoprolol Tartrate (Lopressor) 25 mg PO BID [facility] Last Admin: 11/12/16 09:12 Dose: Not Given Nystatin/Triamcinolone Acetonide (Nystatin/Triamcinolone Ointment) 0 gm TOP BID [facility] Last Admin: 11/13/16 17:20 Dose: 1 applic Pantoprazole Sodium (Protonix Ec Tab) 40 mg PO 0600 [facility] Last Admin: 11/13/16 05:36 Dose: 40 mg Polysaccharide Iron Complex (Ferrex-150) 150 mg PO DAILY [facility] Last Admin: 11/13/16 10:19 Dose: 150 mg Spironolactone (Aldactone) 25 mg PO BID [facility] Last Admin: 11/13/16 17:17 Dose: 25 mg Torsemide (Demadex) 10 mg PO Q12H [facility] Last Admin: 11/13/16 12:43 Dose: 10 mg Tramadol HCl (Ultram) 50 mg PO TID PRN PRN Reason: Pain, moderate (4-7) Last Admin: 11/13/16 01:14 Dose: 50 mg - Labs Labs: 11/13/16 09:19 11/13/16 09:19 PT 12.0 Seconds (9.9-11.8) H 10/20/16 09:29 INR 1.11 (0.93-1.08) H 10/20/16 09:29 APTT 27.8 Seconds (23.7-30.8) 10/20/16 09:29 Attending/Attestation - Attestation I have personally seen and examined this patient.: Yes I have fully participated in the care of the patient.: Yes I have reviewed all pertinent clinical information, including history, physical exam and plan: Yes Notes (Text): 11/13/16 18:50 Patient seen and examined at bedside. labs, vitals and orders reviewed. BP improved with dobutamine infusion. Remains off antibiotics and is afebrile. PO diet remains good. Renal team following for hyponatremia and fluid status, anasarca improved. Multi-speciality follow up ongoing. Agree with the plan as outlined by the resident.
--- NOTE | 2016-11-13 11:10 | CP.PCM.PN ---
Subjective - Date & Time of Evaluation Date of Evaluation: 11/13/16 Time of Evaluation: 09:45 - Subjective Subjective: Comfortably resting on a chair, not in distress. Had low grade fever last night which did not persist. Objective - Vital Signs/Intake and Output Vital Signs (last 24 hours): Temp Pulse Resp BP Pulse Ox 100.2 F H 124 H 18 117/58 L 100 11/13/16 00:01 11/13/16 00:01 11/13/16 00:01 11/13/16 00:01 11/13/16 00:01 Intake and Output: 11/12/16 11/13/16 18:59 06:59 Intake Total 540 360 Output Total 800 1880 Balance -260 -1520 - Medications Medications: Current Medications Apixaban (Eliquis) 5 mg PO BID [facility] PRN Reason: Protocol Last Admin: 11/12/16 17:24 Dose: 5 mg Bacitracin (Bacitracin) 0 gm TOP BID [facility] Last Admin: 11/12/16 17:35 Dose: 1 applic Digoxin (Lanoxin) 0.125 mg PO 1400 [facility] Last Admin: 11/11/16 13:13 Dose: 0.125 mg Iron Sucrose 100 mg/ Sodium (Chloride) 105 mls @ 210 mls/hr IVPB DAILY [facility] Stop: 11/17/16 21:50 Last Admin: 11/12/16 09:31 Dose: 210 mls/hr Dobutamine HCl/Dextrose (Dobutamine/Dextrose 5% 500mg/250ml) 500 mg in 250 mls @ 5.817 mls/hr IV .Q24H PRN; Protocol; 2.5 MCG/KG/MIN PRN Reason: TITRATE PER PROTOCOL Last Admin: 11/12/16 11:39 Dose: 5.817 mls/hr Insulin Detemir (Levemir) 20 unit SC DAILY [facility] Last Admin: 11/12/16 09:10 Dose: 20 unit Insulin Human Lispro (Humalog) 5 units SC ACHS [facility] Last Admin: 11/12/16 22:08 Dose: Not Given Insulin Human Lispro (Humalog Low) 0 units SC ACHS [facility] PRN Reason: Protocol Last Admin: 11/12/16 22:09 Dose: Not Given Lactobacillus Acidophilus (Bacid Acidophilus) 1 cap PO BID [facility] Last Admin: 11/12/16 17:24 Dose: 1 cap Metoprolol Tartrate (Lopressor) 25 mg PO BID [facility] Last Admin: 11/12/16 09:12 Dose: Not Given Nystatin (Nystop Topical Powder) 0 gm TOP DAILY [facility] Last Admin: 11/12/16 09:14 Dose: 1 applic Nystatin/Triamcinolone Acetonide (Nystatin/Triamcinolone Ointment) 0 gm TOP BID [facility] Last Admin: 11/12/16 17:35 Dose: 1 applic Pantoprazole Sodium (Protonix Ec Tab) 40 mg PO 0600 [facility] Last Admin: 11/13/16 05:36 Dose: 40 mg Polysaccharide Iron Complex (Ferrex-150) 150 mg PO DAILY [facility] Last Admin: 11/12/16 11:42 Dose: 150 mg Spironolactone (Aldactone) 25 mg PO BID [facility] Last Admin: 11/12/16 17:24 Dose: 25 mg Torsemide (Demadex) 10 mg PO Q12H [facility] Last Admin: 11/12/16 20:26 Dose: 10 mg Tramadol HCl (Ultram) 50 mg PO TID PRN PRN Reason: Pain, moderate (4-7) Last Admin: 11/13/16 01:14 Dose: 50 mg - Labs Labs: 11/12/16 06:30 11/12/16 06:30 PT 12.0 Seconds (9.9-11.8) H 10/20/16 09:29 INR 1.11 (0.93-1.08) H 10/20/16 09:29 APTT 27.8 Seconds (23.7-30.8) 10/20/16 09:29 - Constitutional Appears: Non-toxic, No Acute Distress - Head Exam Head Exam: NORMAL INSPECTION - ENT Exam ENT Exam: Mucous Membranes Moist - Neck Exam Neck Exam: absent: Meningismus - Respiratory Exam Respiratory Exam: Decreased Breath Sounds - Cardiovascular Exam Cardiovascular Exam: +S1, +S2 - GI/Abdominal Exam GI & Abdominal Exam: Soft. absent: Tenderness Assessment and Plan - Assessment and Plan (Free Text) Plan: Assessment S/P severe sepsis S/P hypoxic ventilator-dependent respiratory failure probably due to bilateral lower lobe healthcare-associated pneumonia with possible gram positive cocci, gram negative bacilli and/or atypical organisms, with associated hyperglycemic, hyperosmolar state with also acute pancreatitis - clinically improved and continues to be off antibiotics - still with leukocytosis, but probably reactive VRE in the urine, probably asymptomatic bacteriuria, continues to be asymptomatic chronic congestive heart failure due to cardiomyopathy elevated Alk phos and transaminases in a patient with pancreatitis as well as hepatic congestion history of healthcare-associated pneumonia, right middle lobe history of bilateral healthcare-associated pneumonia in this patient chronic heart failure S/P acute cholecystitis, S/P laparoscopic cholecystectomy CAD with chronic CHF DM HTN history of migraines bipolar disorder Plan will continue to monitor off antibiotics since she is at risk for hospital- acquired infections; will continue to monitor WBC count - patient may need further Hematology work up for the leukocytosis since she has a history of lymphoma in the past
[2016-11-13] MEDS ORDERED: Tolvaptan 15 MG TAB PO ONE (14:36)
--- NOTE | 2016-11-13 18:34 | PN ---
SUBJECTIVE: The patient feels comfortable on nasal O2. She denies any chest pain. There is some ____ hematuria. PHYSICAL EXAMINATION: VITAL SIGNS: Blood pressure 115/67, heart rate 118, temperature 97.9, respirations 20. HEENT: Pale conjunctivae. CHEST: Absent breath sounds over the bases. HEART: S1 and S2 regular. EXTREMITIES: 2+ pitting edema, improved arm edema. LABORATORY DATA: Hemoglobin and hematocrit 9.1 and 28.5, white count and platelet count are 15.4 and 363,000. SMA-7: Sodium 150, potassium 4.1, chloride 98, CO2 27, glucose 134, BUN 21, creatinine 1.0. Alkaline phosphatase has improved to 65. ASSESSMENT: 1. Dilated cardiomyopathy. 2. Chronic right subclavian deep vein thrombosis. 3. Hypoalbuminemia. 4. Improved renal insufficiency. RECOMMENDATIONS: Continue ____, continue Demadex 10 mg p.o. twice a day, Aldactone at 25 mg once a day, Eliquis 5 mg twice a day, Digoxin 0.125 mg daily. Cesar Kinney MD
[2016-11-14] MEDS: Pantoprazole 40 mg EC Tab PO SCH (05:39)
[2016-11-14 07:38] LABS: ALB/GLOB RATIO 0.9 (1.1-1.8); ALBUMIN 2.6 g/dL (3.0-4.8); ALT/SGPT 63 U/L (7-56); AST/SGOT 31 U/L (15-39); BLOOD UREA NITROGEN 21 mg/dL (7-21); CALCIUM 8.7 mg/dL (8.4-10.5); GFR AFRICAN-AMERICAN > 60; GFR NON-AFRICAN AMERICAN 58; MAGNESIUM 1.8 mg/dL (1.7-2.2)
[2016-11-14 08:15] LABS: BASO # 0.01 K/mm3 (0.0-2.0); BASO % 0.1 % (0.0-3.0); EOS # 0.2 (0.0-0.7); EOS % 1.2 % (1.5-5.0); GRAN # 10.65 (1.4-6.5); GRAN % 84.4 % (50.0-68.0); HEMOGLOBIN 8.4 gm/dL (12.0-16.0); LYMPH # 1.3 (1.2-3.4); LYMPH % 9.9 % (22.0-35.0); MEAN CORPUSCULAR HEMOGLOBIN 25.1 pg (25.0-35.0); MEAN CORPUSCULAR HGB CONC 31.8 g/dl (31.0-37.0); MEAN PLATELET VOLUME 9.8 fl (7.0-11.0); MONO # 0.6 (0.1-0.6); MONO % 4.4 % (1.0-6.0); PLATELET COUNT 390 10^3/uL (120.0-450.0); RBC 3.34 10^6/uL (3.5-6.1); RED CELL DISTRIBUTION WIDTH 22.1 % (11.5-14.5); WHITE BLOOD COUNT 12.6 10^3/ul (4.5-11.0)
[2016-11-14] MEDS: Insulin Lispro (humaLOG) LOW Coverage SC SCH ×4 (08:38→21:46)
[2016-11-14] MEDS: Insulin Lispro 1 UNITS/0.01 ML SC SCH ×4 (08:38→21:47)
[2016-11-14] MEDS: Bacitracin Ointment 30 GM TUBE TOP SCH ×2 (09:39→17:29)
[2016-11-14] MEDS: Lactobacillus Acidophilus 500 MU Cap PO SCH ×2 (09:39→17:27)
[2016-11-14] MEDS: Iron Complex Polysacch 150mg Cap PO SCH (09:39)
[2016-11-14] MEDS: Nystatin-Triamcinolone Ointment(30 gm) TOP SCH ×2 (09:40→17:28)
[2016-11-14] MEDS: Insulin Detemir 100 units/ml Vial (Levemir) SC SCH (09:43)
--- NOTE | 2016-11-14 12:24 | PN ---
DATE: 11/14/2016 SUBJECTIVE: The patient's shortness of breath has improved as well as leg and arm swelling. She has mild color urine. PHYSICAL EXAMINATION: VITAL SIGNS: Blood pressure of 112/63, heart rate of 118, temperature of 97.8, and respirations of 20. HEENT: Pale conjunctivae. CHEST: Diminished breath sounds over the bases. HEART: S1 and S2 regular. EXTREMITIES: 2+ pitting leg edema. LABORATORY DATA: Hemoglobin and hematocrit are 8.2 and 26.2, white count of 12.6, and platelet count of 390,000. The patient's sodium is 130, potassium is 3.8, chloride is 98, CO2 is 26, glucose is 143, BUN is 21, and creatinine is 1.0. ASSESSMENT: 1. Dilated cardiomyopathy. 2. Chronic right subclavian vein thrombosis. 3. Urinary tract infection. 4. Bilateral pleural effusion. 5. Mild hematuria. 6. Anemia. CONDITION: Case was discussed with a medical team. Continue Aldactone 25 mg twice a day, Demadex 10 mg p.o. twice a day, Eliquis 5 mg twice a day, which can be reduced to 2.5 mg twice a day if hematuria persist. Continue digoxin 0.125 mg daily and Lopressor 25 mg twice a day. Start Cozaar 12.5 mg once day and continue current Dobutrex infusion at 2.5 mcg/kg/minute. Cesar Kinney MD
--- NOTE | 2016-11-14 14:38 | CP.PCM.PN ---
<Gin Pires - Last Filed: 11/14/16 14:55> Subjective - Date & Time of Evaluation Date of Evaluation: 11/14/16 Time of Evaluation: 07:30 - Subjective Subjective: Patient seen and examined at bedside. Per nursing, no acute events overnight. Patient is doing well, breathing improving, no complaints at this time. Patient is oob to chair, tolerating diet. Denies headache, dizziness, cp, sob, abdominal pain, urinary symptoms, changes in bowel habits. On Dobutamine drip. Objective - Vital Signs/Intake and Output Vital Signs (last 24 hours): Temp Pulse Resp BP Pulse Ox 97.1 F L 120 H 19 119/76 100 11/14/16 12:00 11/14/16 12:32 11/14/16 12:00 11/14/16 12:32 11/14/16 06:00 Intake and Output: 11/14/16 11/14/16 06:59 18:59 Intake Total 501 Output Total 1800 Balance -1299 - Medications Medications: Current Medications Apixaban (Eliquis) 5 mg PO BID [facility] PRN Reason: Protocol Last Admin: 11/14/16 09:39 Dose: 5 mg Bacitracin (Bacitracin) 0 gm TOP BID [facility] Last Admin: 11/14/16 09:39 Dose: 1 applic Digoxin (Lanoxin) 0.125 mg PO 1400 [facility] Last Admin: 11/11/16 13:13 Dose: 0.125 mg Iron Sucrose 100 mg/ Sodium (Chloride) 105 mls @ 210 mls/hr IVPB DAILY [facility] Stop: 11/17/16 21:50 Last Admin: 11/14/16 09:43 Dose: 210 mls/hr Dobutamine HCl/Dextrose (Dobutamine/Dextrose 5% 500mg/250ml) 500 mg in 250 mls @ 5.817 mls/hr IV .Q24H PRN; Protocol; 2.5 MCG/KG/MIN PRN Reason: TITRATE PER PROTOCOL Last Admin: 11/12/16 11:39 Dose: 5.817 mls/hr Insulin Detemir (Levemir) 20 unit SC DAILY [facility] Last Admin: 11/14/16 09:43 Dose: 20 unit Insulin Human Lispro (Humalog) 5 units SC ACHS [facility] Last Admin: 11/14/16 12:34 Dose: 5 units Insulin Human Lispro (Humalog Low) 0 units SC ACHS [facility] PRN Reason: Protocol Last Admin: 11/14/16 12:35 Dose: 2 units Lactobacillus Acidophilus (Bacid Acidophilus) 1 cap PO BID [facility] Last Admin: 11/14/16 09:39 Dose: 1 cap Levothyroxine Sodium (Synthroid) 125 mcg PO 0600 [facility] Losartan Potassium (Cozaar) 12.5 mg PO DAILY [facility] Last Admin: 11/14/16 12:32 Dose: 12.5 mg Metoprolol Tartrate (Lopressor) 25 mg PO BID [facility] Last Admin: 11/12/16 09:12 Dose: Not Given Nystatin/Triamcinolone Acetonide (Nystatin/Triamcinolone Ointment) 0 gm TOP BID [facility] Last Admin: 11/14/16 09:40 Dose: 1 applic Pantoprazole Sodium (Protonix Ec Tab) 40 mg PO 0600 [facility] Last Admin: 11/14/16 05:39 Dose: 40 mg Polysaccharide Iron Complex (Ferrex-150) 150 mg PO DAILY [facility] Last Admin: 11/14/16 09:39 Dose: 150 mg Spironolactone (Aldactone) 25 mg PO BID [facility] Last Admin: 11/14/16 09:39 Dose: 25 mg Tolvaptan (Samsca) 30 mg PO DAILY [facility] Stop: 11/16/16 09:20 Last Admin: 11/14/16 09:42 Dose: 30 mg Torsemide (Demadex) 10 mg PO Q12H [facility] Last Admin: 11/14/16 09:39 Dose: 10 mg Tramadol HCl (Ultram) 50 mg PO TID PRN PRN Reason: Pain, moderate (4-7) Last Admin: 11/13/16 01:14 Dose: 50 mg - Labs Labs: 11/14/16 06:45 11/14/16 06:45 PT 12.0 Seconds (9.9-11.8) H 10/20/16 09:29 INR 1.11 (0.93-1.08) H 10/20/16 09:29 APTT 27.8 Seconds (23.7-30.8) 10/20/16 09:29 - Constitutional Appears: Well, No Acute Distress - Head Exam Head Exam: ATRAUMATIC, NORMAL INSPECTION - Eye Exam Eye Exam: EOMI, Normal appearance Pupil Exam: NORMAL ACCOMODATION - ENT Exam ENT Exam: Mucous Membranes Moist - Neck Exam Neck Exam: Normal Inspection - Respiratory Exam Respiratory Exam: Decreased Breath Sounds, NORMAL BREATHING PATTERN. absent: Rales, Rhonchi, Wheezes - Cardiovascular Exam Cardiovascular Exam: Tachycardia, +S1, +S2 - GI/Abdominal Exam GI & Abdominal Exam: Distended, Soft, Normal Bowel Sounds. absent: Tenderness - Extremities Exam Extremities Exam: Full ROM, Pedal Edema. absent: Calf Tenderness - Neurological Exam Neurological Exam: Awake, Oriented x3 - Psychiatric Exam Psychiatric exam: Normal Mood - Skin Skin Exam: Dry, Intact, Warm Assessment and Plan - Assessment and Plan (Free Text) Assessment: 51 y/o female with PMHx of DM2, CHF (EF 30% in 10/2016), HTN, chronic pulmonary effusion, HTN, DVT, PE, hypothyroidism, PSH of lap mitchell in 05/2016 and psych hx of schizophrenia and Bipolar disorder presented to the ED with complaints of abdominal pain. ECHO (10/18): EF 30% Plan: 1. Septic shock (tachycardia), likely a/w cardiogenic cause - Septic shock resolved, no active signs of infection - Patient still tachycardic, dobutamine drip restarted for low BPs - Metoprolol on hold, Digoxin resumed - Cardiology on consult, will f/u recommendations 2. Abdominal pain likely due to edema/anasarca and CHF state, improving - Pain control - Tramadol prn - Continue Fluid restriction - Daily weights unreliable - Monitor strict I/Os - GI consulted, recs appreciated 3. Hyponatremia - Serum Na 130 - Continue Aldactone 25mg BID - Tolvaptan 30mg daily - Monitor CMPs - Nephrology on consult, f/u recommendations 4. 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 Metabolic Alkalosis - Bicarb 26 today, improved - Continue Toresamide - Nephro on consult, f/u recommendations 6. Anemia (multifatorial) likely 2/2 chronic disease and Iron deficiency - S/P 1 unit PRBcs on 11/08/16 - Hgb 8.4 this am - Continue IV iron, f/u am CBC - Per GI, no plan for endoscopy/colonoscopy at this time 7. Leukocytosis - Blood cx and urine cx negative - s/p Merrem - WBC 12.6, improving - Afebrile - ID consulted, recs appreciated 8. Hypotension improving, likely due to sepsis - Dobutamine restarted, BPs stable - Cozaar 12.5mg daily started - Abdominal dopplers: patent portal vein with hepatopetal flow - Will f/u with case management and Social work in regards to placement 9. OLLIE likely due to shock (prerenal in nature due to low intravascular volume) - Cr improving - Nephro on consult, f/u recommendations 10. Transaminitis - Likely 2/2 shocked liver - AST/ALT continues to trend down - Avoid hepatic toxins - Continue to monitor 11. Hx UTI 10/19 grew VRE (contact precautions) - UCx currently negative - Witt in place (pink tinged urine), will continue to monitor, if worsens consider decreasing Eliquis dose - Nystatin powder/ointment and Bacitracin for jr-vaginal yeast infection - ID consulted, recs appreciated 12. DM2, HONK resolved - Continue Levemir to 20U - c/w Lispro 5u, and ISS - Accuchecks QACHS 13. Hypothyroid - Continue Synthroid 125mcg PO 14. Hypokalemia, resolved - K+ today 3.8 - F/U am CMP 15. Hypomagnesemia - Continue to monitor 15. GI/DVT ppx - Eliquis 5mg BID (Hx of DVT/PE) - Protonix 40mg PO daily <Katherine Barragan - Last Filed: 11/14/16 15:06> Objective - Vital Signs/Intake and Output Vital Signs (last 24 hours): Temp Pulse Resp BP Pulse Ox 97.1 F L 113 H 19 119/76 100 11/14/16 12:00 11/14/16 14:00 11/14/16 12:00 11/14/16 12:32 11/14/16 06:00 Intake and Output: 11/14/16 11/14/16 06:59 18:59 Intake Total 501 Output Total 1800 Balance -1299 - Medications Medications: Current Medications Apixaban (Eliquis) 5 mg PO BID [facility] PRN Reason: Protocol Last Admin: 11/14/16 09:39 Dose: 5 mg Bacitracin (Bacitracin) 0 gm TOP BID [facility] Last Admin: 11/14/16 09:39 Dose: 1 applic Digoxin (Lanoxin) 0.125 mg PO 1400 [facility] Last Admin: 11/11/16 13:13 Dose: 0.125 mg Iron Sucrose 100 mg/ Sodium (Chloride) 105 mls @ 210 mls/hr IVPB DAILY [facility] Stop: 11/17/16 21:50 Last Admin: 11/14/16 09:43 Dose: 210 mls/hr Dobutamine HCl/Dextrose (Dobutamine/Dextrose 5% 500mg/250ml) 500 mg in 250 mls @ 5.817 mls/hr IV .Q24H PRN; Protocol; 2.5 MCG/KG/MIN PRN Reason: TITRATE PER PROTOCOL Last Admin: 11/12/16 11:39 Dose: 5.817 mls/hr Insulin Detemir (Levemir) 20 unit SC DAILY [facility] Last Admin: 11/14/16 09:43 Dose: 20 unit Insulin Human Lispro (Humalog) 5 units SC ACHS [facility] Last Admin: 11/14/16 12:34 Dose: 5 units Insulin Human Lispro (Humalog Low) 0 units SC ACHS [facility] PRN Reason: Protocol Last Admin: 11/14/16 12:35 Dose: 2 units Lactobacillus Acidophilus (Bacid Acidophilus) 1 cap PO BID [facility] Last Admin: 11/14/16 09:39 Dose: 1 cap Levothyroxine Sodium (Synthroid) 125 mcg PO 0600 [facility] Losartan Potassium (Cozaar) 12.5 mg PO DAILY [facility] Last Admin: 11/14/16 12:32 Dose: 12.5 mg Metoprolol Tartrate (Lopressor) 25 mg PO BID [facility] Last Admin: 11/12/16 09:12 Dose: Not Given Nystatin/Triamcinolone Acetonide (Nystatin/Triamcinolone Ointment) 0 gm TOP BID [facility] Last Admin: 11/14/16 09:40 Dose: 1 applic Pantoprazole Sodium (Protonix Ec Tab) 40 mg PO 0600 [facility] Last Admin: 11/14/16 05:39 Dose: 40 mg Polysaccharide Iron Complex (Ferrex-150) 150 mg PO DAILY [facility] Last Admin: 11/14/16 09:39 Dose: 150 mg Spironolactone (Aldactone) 25 mg PO BID [facility] Last Admin: 11/14/16 09:39 Dose: 25 mg Tolvaptan (Samsca) 30 mg PO DAILY [facility] Stop: 11/16/16 09:20 Last Admin: 11/14/16 09:42 Dose: 30 mg Torsemide (Demadex) 10 mg PO Q12H [facility] Last Admin: 11/14/16 09:39 Dose: 10 mg Tramadol HCl (Ultram) 50 mg PO TID PRN PRN Reason: Pain, moderate (4-7) Last Admin: 11/13/16 01:14 Dose: 50 mg - Labs Labs: 11/14/16 06:45 11/14/16 06:45 PT 12.0 Seconds (9.9-11.8) H 10/20/16 09:29 INR 1.11 (0.93-1.08) H 10/20/16 09:29 APTT 27.8 Seconds (23.7-30.8) 10/20/16 09:29 Attending/Attestation - Attestation I have personally seen and examined this patient.: Yes I have fully participated in the care of the patient.: Yes I have reviewed all pertinent clinical information, including history, physical exam and plan: Yes Notes (Text): 11/14/16 15:00 51 year old female with past medical history of CHF (EF 30%), hypertension, hypothyroidism, schizophrenia and bipolar who presented with abdominal pain. She was found to have anasarca, hyponatremia and sepsis and started on dobutamine for hypotension. This was discontinued last week but restarted over the weekend due to hypotension. She is being followed by nephrology and cardiology. Her sodium is stable today. She is on tolvaptan, torsemide and spironalactone. She is off antibiotics. She does have history of DVT/PE and is on eliquis. Her renal function and LFTs have improved. She is on iv iron for anemia, synthroid for anemia and levemir for diabetes. Katherine Barragan MD Hospitalist.
--- NOTE | 2016-11-14 18:03 | CP.PCM.PN ---
Subjective - Date & Time of Evaluation Date of Evaluation: 11/14/16 Time of Evaluation: 13:00 - Subjective Subjective: Patient reports breathing better; tolerating diet; Objective - Vital Signs/Intake and Output Vital Signs (last 24 hours): Temp Pulse Resp BP Pulse Ox 97.1 F L 113 H 19 119/76 100 11/14/16 12:00 11/14/16 14:00 11/14/16 12:00 11/14/16 12:32 11/14/16 06:00 Intake and Output: 11/14/16 11/14/16 06:59 18:59 Intake Total 501 Output Total 1800 Balance -1299 - Medications Medications: Current Medications Apixaban (Eliquis) 5 mg PO BID [facility] PRN Reason: Protocol Last Admin: 11/14/16 17:27 Dose: 5 mg Bacitracin (Bacitracin) 0 gm TOP BID [facility] Last Admin: 11/14/16 17:29 Dose: 1 applic Digoxin (Lanoxin) 0.125 mg PO 1400 [facility] Last Admin: 11/11/16 13:13 Dose: 0.125 mg Iron Sucrose 100 mg/ Sodium (Chloride) 105 mls @ 210 mls/hr IVPB DAILY [facility] Stop: 11/17/16 21:50 Last Admin: 11/14/16 09:43 Dose: 210 mls/hr Dobutamine HCl/Dextrose (Dobutamine/Dextrose 5% 500mg/250ml) 500 mg in 250 mls @ 5.817 mls/hr IV .Q24H PRN; Protocol; 2.5 MCG/KG/MIN PRN Reason: TITRATE PER PROTOCOL Last Admin: 11/12/16 11:39 Dose: 5.817 mls/hr Insulin Detemir (Levemir) 20 unit SC DAILY [facility] Last Admin: 11/14/16 09:43 Dose: 20 unit Insulin Human Lispro (Humalog) 5 units SC ACHS [facility] Last Admin: 11/14/16 17:19 Dose: 5 units Insulin Human Lispro (Humalog Low) 0 units SC ACHS [facility] PRN Reason: Protocol Last Admin: 11/14/16 17:27 Dose: 1 units Lactobacillus Acidophilus (Bacid Acidophilus) 1 cap PO BID [facility] Last Admin: 11/14/16 17:27 Dose: 1 cap Levothyroxine Sodium (Synthroid) 125 mcg PO 0600 [facility] Losartan Potassium (Cozaar) 12.5 mg PO DAILY [facility] Last Admin: 11/14/16 12:32 Dose: 12.5 mg Metoprolol Tartrate (Lopressor) 25 mg PO BID [facility] Last Admin: 11/12/16 09:12 Dose: Not Given Nystatin/Triamcinolone Acetonide (Nystatin/Triamcinolone Ointment) 0 gm TOP BID [facility] Last Admin: 11/14/16 17:28 Dose: 1 applic Pantoprazole Sodium (Protonix Ec Tab) 40 mg PO 0600 [facility] Last Admin: 11/14/16 05:39 Dose: 40 mg Polysaccharide Iron Complex (Ferrex-150) 150 mg PO DAILY [facility] Last Admin: 11/14/16 09:39 Dose: 150 mg Spironolactone (Aldactone) 25 mg PO BID [facility] Last Admin: 11/14/16 17:27 Dose: 25 mg Tolvaptan (Samsca) 30 mg PO DAILY [facility] Stop: 11/16/16 09:20 Last Admin: 11/14/16 09:42 Dose: 30 mg Torsemide (Demadex) 10 mg PO Q12H [facility] Last Admin: 11/14/16 09:39 Dose: 10 mg Tramadol HCl (Ultram) 50 mg PO TID PRN PRN Reason: Pain, moderate (4-7) Last Admin: 11/13/16 01:14 Dose: 50 mg - Labs Labs: 11/14/16 06:45 11/14/16 06:45 PT 12.0 Seconds (9.9-11.8) H 10/20/16 09:29 INR 1.11 (0.93-1.08) H 10/20/16 09:29 APTT 27.8 Seconds (23.7-30.8) 10/20/16 09:29 - Constitutional Appears: Well, No Acute Distress - Head Exam Head Exam: NORMAL INSPECTION - Eye Exam Eye Exam: Normal appearance. absent: Scleral icterus - ENT Exam ENT Exam: Mucous Membranes Moist - Respiratory Exam Respiratory Exam: absent: Rales, Rhonchi, Wheezes Additional comments: Decreased R basal sounds; - Cardiovascular Exam Cardiovascular Exam: REGULAR RHYTHM, +S1, Murmur - GI/Abdominal Exam GI & Abdominal Exam: Soft. absent: Distended, Tenderness - Exam Additional comments: pickens in place; - Extremities Exam Additional comments: Markedly edematous lower legs; edema improved proximally; - Neurological Exam Neurological Exam: Alert, Awake - Psychiatric Exam Psychiatric exam: absent: Agitated - Skin Skin Exam: Normal Color, Warm. absent: Cyanosis Assessment and Plan (1) Shock Status: Resolved (2) Acute renal failure Assessment & Plan: Cardiorenal etiology, resolving; agree with continuing inotrope; continue diuresis with torsemide 10 mg bid and aldactone 25 mg bid; aim for 1.5-2L neg fluid balance daily; Status: Acute (3) Hyponatremia Assessment & Plan: In setting of severe CHF; keeping on tolvaptan 30 mg daily; Status: Acute (4) CHF (congestive heart failure) Assessment & Plan: Acute severely decompensated systolic CHF w/ MR; clinically improved but still marked lower ext edema; continue inotropic support and diuretics as above; agree with starting losartan for cardiac optimization; Status: Acute (5) Anemia Assessment & Plan: Due to iron deficiency and acute/chronic illness; continue IV iron to complete 10 doses; Status: Acute (6) Metabolic alkalosis Assessment & Plan: Acceptable despite being off diamox; continue spironolactone 25 mg bid; Status: Acute
[2016-11-15 05:39] LABS: BASO # 0.03 K/mm3 (0.0-2.0); BASO % 0.2 % (0.0-3.0); EOS # 0.2 (0.0-0.7); EOS % 1.3 % (1.5-5.0); GRAN # 10.04 (1.4-6.5); GRAN % 81.8 % (50.0-68.0); HEMOGLOBIN 8.3 g/dL (12.0-16.0); LYMPH # 1.5 (1.2-3.4); LYMPH % 12.5 % (22.0-35.0); MEAN CELL VOLUME 79.2 fl (80.0-105.0); MEAN CORPUSCULAR HEMOGLOBIN 25.4 pg (25.0-35.0); MEAN PLATELET VOLUME 9.2 fl (7.0-11.0); MONO # 0.5 (0.1-0.6); MONO % 4.2 % (1.0-6.0); PLATELET COUNT 380 10^3/uL (120.0-450.0); RBC 3.27 10^6/uL (3.5-6.1); RED CELL DISTRIBUTION WIDTH 22.4 % (11.5-14.5); WHITE BLOOD COUNT 12.3 10^3/ul (4.5-11.0)
[2016-11-15] MEDS: DOBUTamine 500mg/250ml D5W 500 MG/250 ML BAG IV PRN (05:39)
[2016-11-15] MEDS: Levothyroxine 125 MCG TAB PO SCH (05:40)
[2016-11-15] MEDS: Pantoprazole 40 mg EC Tab PO SCH (05:40)
[2016-11-15 05:50] LABS: ALB/GLOB RATIO 0.8 (1.1-1.8); ALBUMIN 2.5 g/dL (3.0-4.8); ALT/SGPT 52 U/L (7-56); AST/SGOT 24 U/L (15-39); BLOOD UREA NITROGEN 20 mg/dL (7-21); CALCIUM 8.5 mg/dL (8.4-10.5); GFR AFRICAN-AMERICAN > 60; GFR NON-AFRICAN AMERICAN > 60; MAGNESIUM 1.7 mg/dL (1.7-2.2)
[2016-11-15] MEDS: Insulin Lispro 1 UNITS/0.01 ML SC SCH ×4 (08:00→22:00)
[2016-11-15] MEDS: Insulin Lispro (humaLOG) LOW Coverage SC SCH ×4 (08:02→22:00)
--- NOTE | 2016-11-15 09:19 | CP.PCM.PN ---
<Gin Pires - Last Filed: 11/15/16 15:22> Subjective - Date & Time of Evaluation Date of Evaluation: 11/15/16 Time of Evaluation: 06:45 - Subjective Subjective: Gin Pires DO, PGY-1, Internal Medicine, Hospitalist service Patient seen and examined at bedside. Per nursing, no acute events overnight. Patient is doing well, tolerating diet. No complaints at this time. Denies headaches, dizziness, cp, sob, abdominal pain, urinary symptoms. Objective - Vital Signs/Intake and Output Vital Signs (last 24 hours): Temp Pulse Resp BP Pulse Ox 98.4 F 126 H 19 109/58 L 98 11/15/16 06:00 11/15/16 06:00 11/15/16 06:00 11/15/16 06:00 11/15/16 06:00 Intake and Output: 11/15/16 11/15/16 06:59 18:59 Intake Total 370 Output Total 2800 Balance -2430 - Medications Medications: Current Medications Apixaban (Eliquis) 5 mg PO BID [facility] PRN Reason: Protocol Last Admin: 11/14/16 17:27 Dose: 5 mg Bacitracin (Bacitracin) 0 gm TOP BID [facility] Last Admin: 11/14/16 17:29 Dose: 1 applic Digoxin (Lanoxin) 0.125 mg PO 1400 [facility] Last Admin: 11/11/16 13:13 Dose: 0.125 mg Iron Sucrose 100 mg/ Sodium (Chloride) 105 mls @ 210 mls/hr IVPB DAILY [facility] Stop: 11/17/16 21:50 Last Admin: 11/14/16 09:43 Dose: 210 mls/hr Dobutamine HCl/Dextrose (Dobutamine/Dextrose 5% 500mg/250ml) 500 mg in 250 mls @ 5.817 mls/hr IV .Q24H PRN; Protocol; 2.5 MCG/KG/MIN PRN Reason: TITRATE PER PROTOCOL Last Admin: 11/15/16 05:39 Dose: 5.817 mls/hr Insulin Detemir (Levemir) 20 unit SC DAILY [facility] Last Admin: 11/14/16 09:43 Dose: 20 unit Insulin Human Lispro (Humalog) 5 units SC ACHS [facility] Last Admin: 11/14/16 21:47 Dose: 5 units Insulin Human Lispro (Humalog Low) 0 units SC ACHS [facility] PRN Reason: Protocol Last Admin: 11/14/16 21:46 Dose: Not Given Lactobacillus Acidophilus (Bacid Acidophilus) 1 cap PO BID [facility] Last Admin: 11/14/16 17:27 Dose: 1 cap Levothyroxine Sodium (Synthroid) 125 mcg PO 0600 [facility] Last Admin: 11/15/16 05:40 Dose: 125 mcg Losartan Potassium (Cozaar) 12.5 mg PO DAILY [facility] Last Admin: 11/14/16 12:32 Dose: 12.5 mg Metoprolol Tartrate (Lopressor) 25 mg PO BID [facility] Last Admin: 11/12/16 09:12 Dose: Not Given Nystatin/Triamcinolone Acetonide (Nystatin/Triamcinolone Ointment) 0 gm TOP BID [facility] Last Admin: 11/14/16 17:28 Dose: 1 applic Polysaccharide Iron Complex (Ferrex-150) 150 mg PO DAILY [facility] Last Admin: 11/14/16 09:39 Dose: 150 mg Spironolactone (Aldactone) 25 mg PO BID [facility] Last Admin: 11/14/16 17:27 Dose: 25 mg Tolvaptan (Samsca) 30 mg PO DAILY [facility] Stop: 11/16/16 09:20 Last Admin: 11/14/16 09:42 Dose: 30 mg Torsemide (Demadex) 10 mg PO Q12H [facility] Last Admin: 11/14/16 21:47 Dose: 10 mg Tramadol HCl (Ultram) 50 mg PO TID PRN PRN Reason: Pain, moderate (4-7) Last Admin: 11/15/16 05:40 Dose: 50 mg - Labs Labs: 11/15/16 05:30 11/15/16 05:30 PT 12.0 Seconds (9.9-11.8) H 10/20/16 09:29 INR 1.11 (0.93-1.08) H 10/20/16 09:29 APTT 27.8 Seconds (23.7-30.8) 10/20/16 09:29 - Constitutional Appears: Well, No Acute Distress - Head Exam Head Exam: ATRAUMATIC, NORMAL INSPECTION - Eye Exam Eye Exam: EOMI, Normal appearance Pupil Exam: NORMAL ACCOMODATION - ENT Exam ENT Exam: Mucous Membranes Moist - Neck Exam Neck Exam: Full ROM Additional comments: R IJ central line - Respiratory Exam Respiratory Exam: Decreased Breath Sounds. absent: Rales, Rhonchi, Wheezes - Cardiovascular Exam Cardiovascular Exam: REGULAR RHYTHM, +S1, +S2 - GI/Abdominal Exam GI & Abdominal Exam: Distended, Soft, Normal Bowel Sounds. absent: Tenderness - Exam Additional comments: Witt in draining clear yellow urine - Extremities Exam Extremities Exam: Pedal Edema Additional comments: B/L LE swelling improving R UE swelling also improving - Back Exam Back Exam: NORMAL INSPECTION - Neurological Exam Neurological Exam: Alert, Awake, Oriented x3 - Psychiatric Exam Psychiatric exam: Normal Affect, Normal Mood - Skin Skin Exam: Normal Color, Warm Assessment and Plan - Assessment and Plan (Free Text) Assessment: 51 y/o female with PMHx of DM2, CHF (EF 30% in 10/2016), HTN, chronic pulmonary effusion, HTN, DVT, PE, hypothyroidism, PSH of lap mitchell in 05/2016 and psych hx of schizophrenia and Bipolar disorder presented to the ED with complaints of abdominal pain. ECHO (10/18): EF 30% Plan: 1. Septic shock (tachycardia), likely a/w cardiogenic cause - Septic shock resolved, no active signs of infection - Patient still tachycardic, dobutamine drip restarted for low BPs - Will resume Metoprolol, Digoxin resumed - Cardiology on consult, will f/u recommendations 2. Abdominal pain likely due to edema/anasarca and CHF state, improving - Pain control - Tramadol prn - Continue Fluid restriction - Daily weights unreliable - Monitor strict I/Os - GI consulted, recs appreciated 3. Hyponatremia - Serum Na 132 - Continue Aldactone 25mg BID - Tolvaptan 30mg daily - Monitor CMPs - Nephrology on consult, f/u recommendations 4. 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 Metabolic Alkalosis - Bicarb 27 today - Continue Toresamide - Nephro on consult, f/u recommendations 6. Anemia (multifatorial) likely 2/2 chronic disease and Iron deficiency - S/P 1 unit PRBcs on 11/08/16 - Hgb 8.3 this am - Will transfuse if hgb < 8.0 - Continue IV iron, f/u am CBC - Per GI, no plan for endoscopy/colonoscopy at this time 7. Leukocytosis - Blood cx and urine cx negative - s/p Merrem, currently off antibiotics - WBC 12.3, improving - Afebrile - Infectious etiology unlikely - ID consulted, recs appreciated 8. Hypotension improving, likely due to sepsis - Dobutamine restarted, BPs stable - Cozaar 12.5mg daily - Abdominal dopplers: patent portal vein with hepatopetal flow - Will f/u with case management and Social work in regards to placement - Talked to Sister in law, Rona, on Monday about senior care placement, reports that she is trying to have patient stay with a roommate, contacted Rona yesterday and left message, awaiting call back about update. 9. OLLIE likely due to shock (prerenal in nature due to low intravascular volume) - Cr improving - Nephro on consult, f/u recommendations 10. Transaminitis - Likely 2/2 shocked liver - AST/ALT continues to trend down - Avoid hepatic toxins - Continue to monitor 11. Hx UTI 10/19 grew VRE (contact precautions) - UCx currently negative - Witt in place (clear yellow urine), will continue to monitor for hematuria - Nystatin powder/ointment and Bacitracin for jr-vaginal yeast infection - ID consulted, recs appreciated 12. DM2, HONK resolved - Continue Levemir to 20U - c/w Lispro 5u, and ISS - Accuchecks QACHS 13. Hypothyroid - Continue Synthroid 125mcg PO 14. Hypokalemia, resolved - K+ today 4.1 - F/U am CMP 15. Hypomagnesemia - Continue to monitor 15. GI/DVT ppx - Eliquis 5mg BID (Hx of DVT/PE) - Protonix 40mg PO daily <Katherine Barragan - Last Filed: 11/15/16 15:58> Objective - Vital Signs/Intake and Output Vital Signs (last 24 hours): Temp Pulse Resp BP Pulse Ox 97.8 F 132 H 20 99/66 L 98 11/15/16 12:00 11/15/16 14:04 11/15/16 12:00 11/15/16 12:00 11/15/16 06:00 Intake and Output: 11/15/16 11/15/16 06:59 18:59 Intake Total 370 Output Total 2800 Balance -2430 - Medications Medications: Current Medications Apixaban (Eliquis) 5 mg PO BID [facility] PRN Reason: Protocol Last Admin: 11/15/16 09:42 Dose: 5 mg Bacitracin (Bacitracin) 0 gm TOP BID [facility] Last Admin: 11/15/16 09:42 Dose: 1 applic Digoxin (Lanoxin) 0.125 mg PO 1400 [facility] Last Admin: 11/15/16 14:37 Dose: 0.125 mg Iron Sucrose 100 mg/ Sodium (Chloride) 105 mls @ 210 mls/hr IVPB DAILY [facility] Stop: 11/17/16 21:50 Last Admin: 11/15/16 10:01 Dose: 210 mls/hr Dobutamine HCl/Dextrose (Dobutamine/Dextrose 5% 500mg/250ml) 500 mg in 250 mls @ 5.817 mls/hr IV .Q24H PRN; Protocol; 2.5 MCG/KG/MIN PRN Reason: TITRATE PER PROTOCOL Last Admin: 11/15/16 05:39 Dose: 5.817 mls/hr Insulin Detemir (Levemir) 20 unit SC DAILY [facility] Last Admin: 11/15/16 09:51 Dose: 20 unit Insulin Human Lispro (Humalog) 5 units SC ACHS [facility] Last Admin: 11/15/16 12:05 Dose: 5 units Insulin Human Lispro (Humalog Low) 0 units SC ACHS [facility] PRN Reason: Protocol Last Admin: 11/15/16 12:05 Dose: 4 units Lactobacillus Acidophilus (Bacid Acidophilus) 1 cap PO BID [facility] Last Admin: 11/15/16 09:42 Dose: 1 cap Levothyroxine Sodium (Synthroid) 125 mcg PO 0600 [facility] Last Admin: 11/15/16 05:40 Dose: 125 mcg Losartan Potassium (Cozaar) 12.5 mg PO DAILY [facility] Last Admin: 11/15/16 09:49 Dose: 12.5 mg Metoprolol Tartrate (Lopressor) 25 mg PO BID [facility] Last Admin: 11/12/16 09:12 Dose: Not Given Nystatin/Triamcinolone Acetonide (Nystatin/Triamcinolone Ointment) 0 gm TOP BID [facility] Last Admin: 11/15/16 10:02 Dose: 1 applic Polysaccharide Iron Complex (Ferrex-150) 150 mg PO DAILY [facility] Last Admin: 11/15/16 10:10 Dose: 150 mg Spironolactone (Aldactone) 25 mg PO BID [facility] Last Admin: 11/15/16 09:42 Dose: 25 mg Tolvaptan (Samsca) 30 mg PO DAILY [facility] Stop: 11/16/16 09:20 Last Admin: 11/15/16 10:10 Dose: 30 mg Torsemide (Demadex) 10 mg PO Q12H [facility] Last Admin: 11/15/16 09:10 Dose: 10 mg Tramadol HCl (Ultram) 50 mg PO TID PRN PRN Reason: Pain, moderate (4-7) Last Admin: 11/15/16 05:40 Dose: 50 mg - Labs Labs: 11/15/16 05:30 11/15/16 05:30 PT 12.0 Seconds (9.9-11.8) H 10/20/16 09:29 INR 1.11 (0.93-1.08) H 10/20/16 09:29 APTT 27.8 Seconds (23.7-30.8) 10/20/16 09:29 Attending/Attestation - Attestation I have personally seen and examined this patient.: Yes I have fully participated in the care of the patient.: Yes I have reviewed all pertinent clinical information, including history, physical exam and plan: Yes Notes (Text): 11/15/16 15:56 51 year old female with past medical history of CHF (EF 30%), hypertension, hypothyroidism, schizophrenia and bipolar who presented with abdominal pain. She was found to have anasarca, hyponatremia and sepsis and started on dobutamine for hypotension. She is on metoprolol for tachycaria. She is being followed by nephrology and cardiology. Her sodium is stable. She is on tolvaptan, torsemide and spironalactone. She is off antibiotics. She does have history of DVT/PE and is on eliquis. Her renal function and LFTs have improved. She is on iv iron for anemia, synthroid for anemia and levemir for diabetes. Case was discussed with Dr. Kinney who suggested again trial of holding dobutamine if BP allows. Will monitor. Katherine Barragan MD Hospitalist.
[2016-11-15] MEDS: Bacitracin Ointment 30 GM TUBE TOP SCH ×2 (09:42→18:48)
[2016-11-15] MEDS: Lactobacillus Acidophilus 500 MU Cap PO SCH ×2 (09:42→19:11)
[2016-11-15] MEDS: Insulin Detemir 100 units/ml Vial (Levemir) SC SCH (09:51)
[2016-11-15] MEDS: Nystatin-Triamcinolone Ointment(30 gm) TOP SCH ×2 (10:02→18:47)
[2016-11-15] MEDS: Iron Complex Polysacch 150mg Cap PO SCH (10:10)
--- NOTE | 2016-11-15 14:18 | RAD ---
HISTORY: f/u cxr COMPARISON: 11/05/2016 FINDINGS: LUNGS: Vascular congestion and bibasilar infiltrates and effusions consistent with CHF. Findings are unchanged PLEURA: No significant pleural effusion identified, no pneumothorax apparent. CARDIOVASCULAR: Mild cardiomegaly OSSEOUS STRUCTURES: No significant abnormalities. VISUALIZED UPPER ABDOMEN: Normal. OTHER FINDINGS: None. IMPRESSION: Vascular congestion and bibasilar infiltrates and effusions consistent with CHF. Findings are unchanged
[2016-11-15] MEDS: Digoxin 125 mcg (0.125 mg) Tab PO SCH (14:37)
--- NOTE | 2016-11-15 15:38 | PN ---
DATE: SUBJECTIVE: The patient's shortness of breath has improved. She is in sinus tachycardia on the monitor and no reported hypotension. PHYSICAL EXAMINATION: VITAL SIGNS: Blood pressure 104/61, heart rate 132, temperature 98.4, respirations 19. HEENT: Pale conjunctivae. CHEST: Absent breath sounds over the bases. HEART: S1 and S2 regular. ABDOMEN: Soft. EXTREMITIES: 2+ pitting edema. LABORATORY DATA: Hemoglobin and hematocrit 8.3 and 25.9, white count 12.3 and platelet count 390,000. Today SMA-7 is within normal limits except for glucose 153 and anion gap of 9. Chest x-ray revealed cardiomegaly with significant bilateral pleural effusion move her on the right side. ASSESSMENT: 1. Dilated cardiomyopathy. 2. Bilateral pleural effusion. 3. Improved renal insufficiency. 4. Chronic right subclavian thrombosis. CONDITION: Case was discussed with . Discontinue Dobutrex. Continue Aldactone 25 mg twice a day, Cozaar 12.5 mg once a day, Eliquis 5 mg twice a day, Lanoxin 0.125 mg daily, Lopressor was held. Cesar Kinney MD
[2016-11-15 22:43] LABS: PH,URINE 5.5 (4.7-8.0); URINE BILIRUBIN MODERATE (NEGATIVE); URINE BLOOD LARGE (NEGATIVE); URINE GLUCOSE (UA) NEGATIVE (NEGATIVE); URINE LEUKOCYTE ESTERASE MODERATE Leu/uL (NEGATIVE); URINE NITRATE POSITIVE (NEGATIVE); URINE PROTEIN >=300 mg/dL (<30 mg/dL)
[2016-11-15 22:45] LABS: URINE APPEARANCE CLOUDY (CLEAR); URINE COLOR DARK BROWN (YELLOW)
[2016-11-15 22:52] LABS: URINE RBC TNTC /hpf (0-2); URINE WBC TNTC /hpf (0-6)
[2016-11-15 22:53] LABS: URINE BACTERIA MANY (NEG)
--- NOTE | 2016-11-16 | CP.PCM.PN ---
Subjective - Date & Time of Evaluation Date of Evaluation: 11/15/16 Time of Evaluation: 11:00 - Subjective Subjective: Patient reports breathing improved; legs softer; Objective - Vital Signs/Intake and Output Vital Signs (last 24 hours): Temp Pulse Resp BP Pulse Ox 98.2 F 125 H 19 101/62 98 11/15/16 18:00 11/15/16 19:11 11/15/16 18:00 11/15/16 19:11 11/15/16 06:00 - Medications Medications: Current Medications Apixaban (Eliquis) 5 mg PO BID [facility] PRN Reason: Protocol Last Admin: 11/15/16 19:11 Dose: 5 mg Bacitracin (Bacitracin) 0 gm TOP BID [facility] Last Admin: 11/15/16 18:48 Dose: 1 applic Digoxin (Lanoxin) 0.125 mg PO 1400 [facility] Last Admin: 11/15/16 14:37 Dose: 0.125 mg Iron Sucrose 100 mg/ Sodium (Chloride) 105 mls @ 210 mls/hr IVPB DAILY [facility] Stop: 11/17/16 21:50 Last Admin: 11/15/16 10:01 Dose: 210 mls/hr Dobutamine HCl/Dextrose (Dobutamine/Dextrose 5% 500mg/250ml) 500 mg in 250 mls @ 5.817 mls/hr IV .Q24H PRN; Protocol; 2.5 MCG/KG/MIN PRN Reason: TITRATE PER PROTOCOL Last Admin: 11/15/16 05:39 Dose: 5.817 mls/hr Insulin Detemir (Levemir) 20 unit SC DAILY [facility] Last Admin: 11/15/16 09:51 Dose: 20 unit Insulin Human Lispro (Humalog) 5 units SC ACHS [facility] Last Admin: 11/15/16 16:30 Dose: 5 units Insulin Human Lispro (Humalog Low) 0 units SC ACHS [facility] PRN Reason: Protocol Last Admin: 11/15/16 16:30 Dose: Not Given Lactobacillus Acidophilus (Bacid Acidophilus) 1 cap PO BID [facility] Last Admin: 11/15/16 19:11 Dose: 1 cap Levothyroxine Sodium (Synthroid) 125 mcg PO 0600 [facility] Last Admin: 11/15/16 05:40 Dose: 125 mcg Losartan Potassium (Cozaar) 12.5 mg PO DAILY [facility] Last Admin: 11/15/16 09:49 Dose: 12.5 mg Metoprolol Tartrate (Lopressor) 25 mg PO BID [facility] Last Admin: 11/15/16 19:11 Dose: 25 mg Nystatin/Triamcinolone Acetonide (Nystatin/Triamcinolone Ointment) 0 gm TOP BID [facility] Last Admin: 11/15/16 18:47 Dose: 1 applic Polysaccharide Iron Complex (Ferrex-150) 150 mg PO DAILY [facility] Last Admin: 11/15/16 10:10 Dose: 150 mg Spironolactone (Aldactone) 25 mg PO BID [facility] Last Admin: 11/15/16 19:11 Dose: 25 mg Tolvaptan (Samsca) 30 mg PO DAILY [facility] Stop: 11/16/16 09:20 Last Admin: 11/15/16 10:10 Dose: 30 mg Torsemide (Demadex) 10 mg PO Q12H [facility] Last Admin: 11/15/16 22:13 Dose: 10 mg Tramadol HCl (Ultram) 50 mg PO TID PRN PRN Reason: Pain, moderate (4-7) Last Admin: 11/15/16 05:40 Dose: 50 mg - Labs Labs: 11/15/16 05:30 11/15/16 05:30 PT 12.0 Seconds (9.9-11.8) H 10/20/16 09:29 INR 1.11 (0.93-1.08) H 10/20/16 09:29 APTT 27.8 Seconds (23.7-30.8) 10/20/16 09:29 - Constitutional Appears: Non-toxic, No Acute Distress - Head Exam Head Exam: NORMAL INSPECTION - Eye Exam Eye Exam: Normal appearance. absent: Scleral icterus - ENT Exam ENT Exam: Mucous Membranes Moist - Respiratory Exam Respiratory Exam: absent: Rales, Rhonchi, Wheezes, Respiratory Distress Additional comments: Decreased R basal breath sounds; - Cardiovascular Exam Cardiovascular Exam: Tachycardia, Irregular Rhythm - GI/Abdominal Exam GI & Abdominal Exam: Distended, Soft. absent: Tenderness - Exam Additional comments: pickens in place; - Extremities Exam Additional comments: Markedly edematous legs but much improved; - Neurological Exam Neurological Exam: Alert, Awake - Skin Skin Exam: Normal Color, Warm. absent: Cyanosis Assessment and Plan (1) Shock Status: Resolved (2) Acute renal failure Assessment & Plan: Resolving; cardiorenal etiology; improving with inotropic supports and diuretics ; inotrope being held today in setting of tachycardia/irregular rate; will continue with torsamide 10 mg q12h and aldactone 25 mg bid; Status: Acute (3) Hyponatremia Assessment & Plan: In setting of severely decompensated CHF; improved with tolvaptan, being placed on 30 mg daily standing dose; will work on getting outpatient authorization; Status: Acute (4) CHF (congestive heart failure) Assessment & Plan: Severely decompensated systolic CHF; CXR today still with marked bilateral pleural effusions R >> L; getting trial of holding inotrope in setting of tachycardia/arrhythmia; losartan started yesterday for cardiac optimization; can titrate upward as long as BP tolerates; should expect mild increase in serum creatinine with ARB which is acceptable; continuing diuretics as above; Status: Acute (5) Anemia Assessment & Plan: On IV iron, to complete 10 doses; will consider giving EPO thereafter; Status: Acute (6) Metabolic alkalosis Assessment & Plan: Improved and stable on aldactone, continue same; Status: Acute
[2016-11-16 04:51] LABS: HEMOGLOBIN 9.8 g/dL (12.0-16.0); MEAN CELL VOLUME 79.8 fl (80.0-105.0); MEAN CORPUSCULAR HEMOGLOBIN 25.7 pg (25.0-35.0); MEAN CORPUSCULAR HGB CONC 32.1 g/dl (31.0-37.0); MEAN PLATELET VOLUME 9.4 fl (7.0-11.0); PLATELET COUNT 454 10^3/uL (120.0-450.0); RBC 3.82 10^6/uL (3.5-6.1); RED CELL DISTRIBUTION WIDTH 22.7 % (11.5-14.5); WHITE BLOOD COUNT 12.4 10^3/ul (4.5-11.0)
[2016-11-16 04:57] LABS: ALB/GLOB RATIO 0.9 (1.1-1.8); ALBUMIN 3.1 g/dL (3.0-4.8); CALCIUM 8.4 mg/dL (8.4-10.5); MAGNESIUM 1.8 mg/dL (1.7-2.2)
[2016-11-16 05:16] LABS: NEUTROPHIL 59 % (50.0-70.0)
[2016-11-16 05:17] LABS: ANISOCYTOSIS 1+; BAND 5 % (0-2); BASOPHIL 1 % (0.0-1.0); EOSINOPHIL 2 % (0.0-3.0); LYMPHOCYTE 29 % (22.0-35.0); MONOCYTE 4 % (1.0-6.0); PLATELET ESTIMATE NORMAL (NORMAL)
[2016-11-16 05:18] LABS: POIKILOCYTOSIS SLIGHT
[2016-11-16] MEDS: Levothyroxine 125 MCG TAB PO SCH (05:56)
[2016-11-16] MEDS: DOBUTamine 500mg/250ml D5W 500 MG/250 ML BAG IV PRN (06:42)
[2016-11-16] MEDS: Insulin Lispro (humaLOG) LOW Coverage SC SCH ×4 (08:13→21:15)
[2016-11-16] MEDS: Insulin Lispro 1 UNITS/0.01 ML SC SCH ×3 (08:17→17:31)
[2016-11-16] MEDS: Insulin Detemir 100 units/ml Vial (Levemir) SC SCH (10:50)
[2016-11-16] MEDS: Iron Complex Polysacch 150mg Cap PO SCH (10:51)
[2016-11-16] MEDS: Lactobacillus Acidophilus 500 MU Cap PO SCH ×2 (10:51→17:31)
[2016-11-16] MEDS: Nystatin-Triamcinolone Ointment(30 gm) TOP SCH ×2 (10:52→17:30)
[2016-11-16] MEDS: Bacitracin Ointment 30 GM TUBE TOP SCH ×2 (12:28→17:30)
--- NOTE | 2016-11-16 13:40 | CP.PCM.PN ---
<Pranay,Gin - Last Filed: 11/16/16 15:32> Subjective - Date & Time of Evaluation Date of Evaluation: 11/16/16 Time of Evaluation: 06:45 - Subjective Subjective: Gin Pires DO, PGY-1, Internal Medicine, Hospitalist Service Patient seen and examined at bedside. Per nursing, patient felt like she was going to pass out. BP was 80s/50s at this time. Dobutamine was held yesterday, will resume it as BPs have been low. C/O dysuria and palpitations. Denies headache, dizziness, CP, SOB, abdominal pain, changes in bowel habits. Objective - Vital Signs/Intake and Output Vital Signs (last 24 hours): Temp Pulse Resp BP Pulse Ox 97.1 F L 112 H 19 93/66 L 97 11/16/16 12:00 11/16/16 12:00 11/16/16 12:00 11/16/16 12:00 11/16/16 06:00 Intake and Output: 11/16/16 11/16/16 06:59 18:59 Intake Total 360 Output Total 200 Balance 160 - Medications Medications: Current Medications Apixaban (Eliquis) 5 mg PO BID [facility] PRN Reason: Protocol Last Admin: 11/16/16 12:28 Dose: 5 mg Bacitracin (Bacitracin) 0 gm TOP BID [facility] Last Admin: 11/16/16 12:28 Dose: Not Given Digoxin (Lanoxin) 0.125 mg PO 1400 [facility] Last Admin: 11/15/16 14:37 Dose: 0.125 mg Iron Sucrose 100 mg/ Sodium (Chloride) 105 mls @ 210 mls/hr IVPB DAILY [facility] Stop: 11/17/16 21:50 Last Admin: 11/16/16 10:50 Dose: 210 mls/hr Dobutamine HCl/Dextrose (Dobutamine/Dextrose 5% 500mg/250ml) 500 mg in 250 mls @ 5.817 mls/hr IV .Q24H PRN; Protocol; 2.5 MCG/KG/MIN PRN Reason: TITRATE PER PROTOCOL Last Admin: 11/16/16 06:42 Dose: 5.817 mls/hr Insulin Detemir (Levemir) 20 unit SC DAILY [facility] Last Admin: 11/16/16 10:50 Dose: 20 unit Insulin Human Lispro (Humalog) 5 units SC [facility] Last Admin: 11/16/16 12:28 Dose: 5 units Insulin Human Lispro (Humalog Low) 0 units SC [facility] PRN Reason: Protocol Last Admin: 11/16/16 12:29 Dose: 2 units Lactobacillus Acidophilus (Bacid Acidophilus) 1 cap PO BID [facility] Last Admin: 11/16/16 10:51 Dose: 1 cap Levothyroxine Sodium (Synthroid) 125 mcg PO 0600 [facility] Last Admin: 11/16/16 05:56 Dose: 125 mcg Losartan Potassium (Cozaar) 12.5 mg PO DAILY [facility] Last Admin: 11/16/16 11:32 Dose: Not Given Metoprolol Tartrate (Lopressor) 25 mg PO BID [facility] Last Admin: 11/16/16 10:51 Dose: 25 mg Nystatin/Triamcinolone Acetonide (Nystatin/Triamcinolone Ointment) 0 gm TOP BID [facility] Last Admin: 11/15/16 18:47 Dose: 1 applic Polysaccharide Iron Complex (Ferrex-150) 150 mg PO DAILY [facility] Last Admin: 11/16/16 10:51 Dose: 150 mg Spironolactone (Aldactone) 25 mg PO BID [facility] Last Admin: 11/16/16 10:51 Dose: 25 mg Torsemide (Demadex) 10 mg PO Q12H [facility] Last Admin: 11/16/16 10:51 Dose: 10 mg Tramadol HCl (Ultram) 50 mg PO TID PRN PRN Reason: Pain, moderate (4-7) Last Admin: 11/16/16 02:01 Dose: 50 mg - Labs Labs: 11/16/16 04:30 11/16/16 04:30 PT 12.0 Seconds (9.9-11.8) H 10/20/16 09:29 INR 1.11 (0.93-1.08) H 10/20/16 09:29 APTT 27.8 Seconds (23.7-30.8) 10/20/16 09:29 - Constitutional Appears: Non-toxic, No Acute Distress - Head Exam Head Exam: ATRAUMATIC, NORMAL INSPECTION - Eye Exam Eye Exam: EOMI, Normal appearance Pupil Exam: NORMAL ACCOMODATION - ENT Exam ENT Exam: Mucous Membranes Moist - Neck Exam Neck Exam: Full ROM, Normal Inspection Additional comments: R IJ central line - Respiratory Exam Respiratory Exam: Decreased Breath Sounds, NORMAL BREATHING PATTERN. absent: Rales, Rhonchi, Wheezes - Cardiovascular Exam Cardiovascular Exam: Tachycardia, +S1, +S2 - GI/Abdominal Exam GI & Abdominal Exam: Distended, Soft, Normal Bowel Sounds. absent: Guarding, Rigid, Tenderness, Rebound - Extremities Exam Additional comments: Pickens in draining dark colored urine +2 pitting edema B/L LE UE edema improving - Back Exam Back Exam: NORMAL INSPECTION - Neurological Exam Neurological Exam: Alert, Awake, Oriented x3 - Psychiatric Exam Psychiatric exam: Normal Affect, Normal Mood - Skin Skin Exam: Normal Color, Warm Assessment and Plan - Assessment and Plan (Free Text) Assessment: 51 y/o female with PMHx of DM2, CHF (EF 30% in 10/2016), HTN, chronic pulmonary effusion, HTN, DVT, PE, hypothyroidism, PSH of lap mitchell in 05/2016 and psych hx of schizophrenia and Bipolar disorder presented to the ED with complaints of abdominal pain. ECHO (10/18): EF 30% Plan: 1. Septic shock (tachycardia), likely a/w cardiogenic cause - Septic shock resolved - Patient tachycardic - Dobutamine drip was held yesterday for BP trial - Patient hypotensive overnight, symptomatic, will restart Dobutamine - Will need to discuss possibly starting Milrinone for BP support - Hold Metoprolol, Continue Digoxin - Patient with R IJ central line that was placed 16 days ago, will need IV access, discussed with patient need for PICC line however patient is currently refusing - Cardiology on consult, will f/u recommendations - Palliative care consulted to discuss goals of care 2. Abdominal pain likely due to edema/anasarca and CHF state, improving - Pain control - Tramadol prn - Continue Fluid restriction - Daily weights unreliable - Monitor strict I/Os - GI consulted, recs appreciated 3. Hyponatremia - Serum Na 126 today - Continue Aldactone 25mg BID - Monitor CMPs - Nephrology on consult, f/u recommendations 4. 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 Metabolic Alkalosis, resolved - Bicarb 25 today - Continue Torsamide 10mg Q12H - Nephro on consult, f/u recommendations 6. Anemia (multifatorial) likely 2/2 chronic disease and Iron deficiency - S/P 1 unit PRBcs on 11/08/16 - Hgb 9.8 this am - Transfuse if hgb < 8.0 - Continue IV iron, f/u am CBC - Per GI, no plan for endoscopy/colonoscopy at this time 7. Leukocytosis - Blood cx and urine cx negative - s/p Merrem, currently off antibiotics - WBC 12.4 today, Afebrile - ID consulted, recs appreciated 8. Hypotension - Dobutamine restarted this morning as BPs have been low and patient was symptomatic - Will need to discuss possibly trying Milrinone for BP support - Abdominal dopplers: patent portal vein with hepatopetal flow - Will f/u with case management and Social work in regards to placement - Talked to Sister in law, Rona, on Monday about retirement placement, reports that she is trying to have patient stay with a roommate, contacted Rona yesterday and left message, awaiting call back about update. 9. OLLIE likely due to shock (prerenal in nature due to low intravascular volume) - Cr improving - Nephro on consult, f/u recommendations 10. Transaminitis - Likely 2/2 shocked liver - AST/ALT continues to trend down - Avoid hepatic toxins - Continue to monitor 11. Hx UTI 10/19 grew VRE - Last UCx showed no growth - Complaining of dysuria, UA showed +nitrates, moderate leuk esterase, many bacteria (possibly contaminated) - Will discontinue pickens, f/u voiding trial - Repeat UA once pickens is out, will hold off on abx at this time - Nystatin powder/ointment and Bacitracin for jr-vaginal yeast infection - ID consulted, recs appreciated 12. DM2, HONK resolved - Continue Levemir to 20U - c/w Lispro 5u, and ISS - Accuchecks QACHS 13. Hypothyroid - Continue Synthroid 125mcg PO 14. Hypokalemia, resolved - K+ today 5.0 - F/U am CMP 15. Hypomagnesemia - Continue to monitor 15. GI/DVT ppx - Eliquis 5mg BID (Hx of DVT/PE) - Protonix 40mg PO daily <Dion COOPER,Mau - Last Filed: 11/17/16 07:50> Objective - Vital Signs/Intake and Output Vital Signs (last 24 hours): Temp Pulse Resp BP Pulse Ox 97.9 F 109 H 19 95/59 L 97 11/16/16 17:46 11/16/16 18:00 11/16/16 17:46 11/16/16 17:46 11/16/16 06:00 - Medications Medications: Current Medications Apixaban (Eliquis) 5 mg PO BID [facility] PRN Reason: Protocol Last Admin: 11/16/16 17:31 Dose: 5 mg Bacitracin (Bacitracin) 0 gm TOP BID [facility] Last Admin: 11/16/16 17:30 Dose: 1 applic Digoxin (Lanoxin) 0.125 mg PO 1400 [facility] Last Admin: 11/16/16 14:59 Dose: 0.125 mg Iron Sucrose 100 mg/ Sodium (Chloride) 105 mls @ 210 mls/hr IVPB DAILY [facility] Stop: 11/17/16 21:50 Last Admin: 11/16/16 10:50 Dose: 210 mls/hr Dobutamine HCl/Dextrose (Dobutamine/Dextrose 5% 500mg/250ml) 500 mg in 250 mls @ 17.044 mls/hr IV .[id number] PRN; Protocol; 7.5 MCG/KG/MIN PRN Reason: TITRATE PER PROTOCOL Last Admin: 11/17/16 03:24 Dose: 17.044 mls/hr Cefepime HCl (Maxipime 1gm) 1 gm in 100 mls @ 100 mls/hr IVPB Q12 [facility] PRN Reason: Protocol Last Admin: 11/16/16 23:52 Dose: 100 mls/hr Insulin Detemir (Levemir) 20 unit SC DAILY [facility] Last Admin: 11/16/16 10:50 Dose: 20 unit Insulin Human Lispro (Humalog) 5 units SC ACHS [facility] Last Admin: 11/16/16 17:31 Dose: 5 units Insulin Human Lispro (Humalog Low) 0 units SC ACHS [facility] PRN Reason: Protocol Last Admin: 11/16/16 21:15 Dose: Not Given Lactobacillus Acidophilus (Bacid Acidophilus) 1 cap PO BID [facility] Last Admin: 11/16/16 17:31 Dose: 1 cap Levothyroxine Sodium (Synthroid) 125 mcg PO 0600 [facility] Last Admin: 11/16/16 05:56 Dose: 125 mcg Losartan Potassium (Cozaar) 12.5 mg PO DAILY [facility] Last Admin: 11/16/16 11:32 Dose: Not Given Metoprolol Tartrate (Lopressor) 25 mg PO BID [facility] Last Admin: 11/16/16 10:51 Dose: 25 mg Nystatin/Triamcinolone Acetonide (Nystatin/Triamcinolone Ointment) 0 gm TOP BID [facility] Last Admin: 11/16/16 17:30 Dose: 1 applic Polysaccharide Iron Complex (Ferrex-150) 150 mg PO DAILY [facility] Last Admin: 11/16/16 10:51 Dose: 150 mg Spironolactone (Aldactone) 25 mg PO BID [facility] Last Admin: 11/16/16 17:31 Dose: 25 mg Tolvaptan (Samsca) 30 mg PO DAILY [facility] Stop: 11/22/16 19:59 Torsemide (Demadex) 10 mg PO Q12H [facility] Last Admin: 11/16/16 10:51 Dose: 10 mg Tramadol HCl (Ultram) 50 mg PO TID PRN PRN Reason: Pain, moderate (4-7) Last Admin: 11/16/16 02:01 Dose: 50 mg - Labs Labs: 11/17/16 07:00 11/16/16 04:30 PT 12.0 Seconds (9.9-11.8) H 10/20/16 09:29 INR 1.11 (0.93-1.08) H 10/20/16 09:29 APTT 27.8 Seconds (23.7-30.8) 10/20/16 09:29 Attending/Attestation - Attestation I have personally seen and examined this patient.: Yes I have fully participated in the care of the patient.: Yes I have reviewed all pertinent clinical information, including history, physical exam and plan: Yes Notes (Text): 11/17/16 07:35 Patient was seen and examined with medical record coder. . 51 year old female with PMH of CHF (EF 30%), hypertension, hypothyroidism, schizophrenia and bipolar disorder was initially with abdominal pain. She was found to have anasarca, hyponatremia due to CHF exacerbation.She was also found to have sepsis and was treated with IV antibiotics .She is requiring Dobutamine for CHF.Hyponatremia is mildly worsen today due to CHF.Patient has been restarted on Dobutamine today. Nephrology and cardiology is following. Patient urine is suggestive of UTI, will DC Folley cather, we will start on antibiotics and will follow up cultures. Issue of hospice and palliative care was discussed in detail with patient.Patient is not ready , but willing to start the conversation, we will get Palliative care consult. Management plan was discussed in detail with patient Education was provided.
[2016-11-16] MEDS ORDERED: Sodium Chloride 0.9% 100 ML IV SCH (14:11)
[2016-11-16] MEDS ORDERED: DOBUTamine 500mg/250ml D5W 500 MG/250 ML BAG IV PRN ×3 (14:27→15:31)
--- NOTE | 2016-11-16 14:41 | CP.PCM.PN ---
Subjective - Date & Time of Evaluation Date of Evaluation: 11/16/16 Time of Evaluation: 08:50 - Subjective Subjective: Comfortable in bed, not in distress, had low BP's in the morning, but no dizziness, no headaches. Objective - Vital Signs/Intake and Output Vital Signs (last 24 hours): Temp Pulse Resp BP Pulse Ox 99.5 F 99 H 20 77/51 L 98 11/16/16 04:00 11/16/16 05:19 11/16/16 00:01 11/16/16 05:36 11/16/16 00:01 - Medications Medications: Current Medications Apixaban (Eliquis) 5 mg PO BID [facility] PRN Reason: Protocol Last Admin: 11/15/16 19:11 Dose: 5 mg Bacitracin (Bacitracin) 0 gm TOP BID [facility] Last Admin: 11/15/16 18:48 Dose: 1 applic Digoxin (Lanoxin) 0.125 mg PO 1400 [facility] Last Admin: 11/15/16 14:37 Dose: 0.125 mg Iron Sucrose 100 mg/ Sodium (Chloride) 105 mls @ 210 mls/hr IVPB DAILY [facility] Stop: 11/17/16 21:50 Last Admin: 11/15/16 10:01 Dose: 210 mls/hr Dobutamine HCl/Dextrose (Dobutamine/Dextrose 5% 500mg/250ml) 500 mg in 250 mls @ 5.817 mls/hr IV .Q24H PRN; Protocol; 2.5 MCG/KG/MIN PRN Reason: TITRATE PER PROTOCOL Last Admin: 11/15/16 05:39 Dose: 5.817 mls/hr Insulin Detemir (Levemir) 20 unit SC DAILY [facility] Last Admin: 11/15/16 09:51 Dose: 20 unit Insulin Human Lispro (Humalog) 5 units SC ACHS [facility] Last Admin: 11/15/16 22:00 Dose: Not Given Insulin Human Lispro (Humalog Low) 0 units SC ACHS [facility] PRN Reason: Protocol Last Admin: 11/15/16 22:00 Dose: Not Given Lactobacillus Acidophilus (Bacid Acidophilus) 1 cap PO BID [facility] Last Admin: 11/15/16 19:11 Dose: 1 cap Levothyroxine Sodium (Synthroid) 125 mcg PO 0600 [facility] Last Admin: 11/16/16 05:56 Dose: 125 mcg Losartan Potassium (Cozaar) 12.5 mg PO DAILY [facility] Last Admin: 11/15/16 09:49 Dose: 12.5 mg Metoprolol Tartrate (Lopressor) 25 mg PO BID [facility] Last Admin: 11/15/16 19:11 Dose: 25 mg Nystatin/Triamcinolone Acetonide (Nystatin/Triamcinolone Ointment) 0 gm TOP BID [facility] Last Admin: 11/15/16 18:47 Dose: 1 applic Polysaccharide Iron Complex (Ferrex-150) 150 mg PO DAILY [facility] Last Admin: 11/15/16 10:10 Dose: 150 mg Spironolactone (Aldactone) 25 mg PO BID [facility] Last Admin: 11/15/16 19:11 Dose: 25 mg Tolvaptan (Samsca) 30 mg PO DAILY [facility] Stop: 11/16/16 09:20 Last Admin: 11/15/16 10:10 Dose: 30 mg Torsemide (Demadex) 10 mg PO Q12H [facility] Last Admin: 11/15/16 22:13 Dose: 10 mg Tramadol HCl (Ultram) 50 mg PO TID PRN PRN Reason: Pain, moderate (4-7) Last Admin: 11/16/16 02:01 Dose: 50 mg - Labs Labs: 11/16/16 04:30 11/16/16 04:30 PT 12.0 Seconds (9.9-11.8) H 10/20/16 09:29 INR 1.11 (0.93-1.08) H 10/20/16 09:29 APTT 27.8 Seconds (23.7-30.8) 10/20/16 09:29 - Constitutional Appears: Non-toxic, No Acute Distress - Head Exam Head Exam: NORMAL INSPECTION - Neck Exam Neck Exam: absent: Meningismus - Cardiovascular Exam Cardiovascular Exam: +S1, +S2 - GI/Abdominal Exam GI & Abdominal Exam: Soft. absent: Tenderness Assessment and Plan - Assessment and Plan (Free Text) Plan: Assessment S/P severe sepsis S/P hypoxic ventilator-dependent respiratory failure probably due to bilateral lower lobe healthcare-associated pneumonia with possible gram positive cocci, gram negative bacilli and/or atypical organisms, with associated hyperglycemic, hyperosmolar state with also acute pancreatitis - clinically improved and continues to be off antibiotics - still with leukocytosis, but probably reactive VRE in the urine, probably asymptomatic bacteriuria, continues to be asymptomatic chronic congestive heart failure due to cardiomyopathy elevated Alk phos and transaminases in a patient with pancreatitis as well as hepatic congestion history of healthcare-associated pneumonia, right middle lobe history of bilateral healthcare-associated pneumonia in this patient chronic heart failure S/P acute cholecystitis, S/P laparoscopic cholecystectomy CAD with chronic CHF DM HTN history of migraines bipolar disorder Plan will continue to monitor off antibiotics since she is at risk for healthcare- associated infections; will continue to monitor WBC count - patient may need further Hematology work up for the leukocytosis since she has a history of lymphoma in the past
[2016-11-16] MEDS: Digoxin 125 mcg (0.125 mg) Tab PO SCH (14:59)
--- NOTE | 2016-11-16 19:53 | CP.PCM.PN ---
Subjective - Date & Time of Evaluation Date of Evaluation: 11/16/16 Time of Evaluation: 11:00 - Subjective Subjective: Patient became hypotensive overnight; reportedly altered mental status; Objective - Vital Signs/Intake and Output Vital Signs (last 24 hours): Temp Pulse Resp BP Pulse Ox 97.9 F 109 H 19 95/59 L 97 11/16/16 17:46 11/16/16 18:00 11/16/16 17:46 11/16/16 17:46 11/16/16 06:00 - Medications Medications: Current Medications Apixaban (Eliquis) 5 mg PO BID [facility] PRN Reason: Protocol Last Admin: 11/16/16 17:31 Dose: 5 mg Bacitracin (Bacitracin) 0 gm TOP BID [facility] Last Admin: 11/16/16 17:30 Dose: 1 applic Digoxin (Lanoxin) 0.125 mg PO 1400 [facility] Last Admin: 11/16/16 14:59 Dose: 0.125 mg Iron Sucrose 100 mg/ Sodium (Chloride) 105 mls @ 210 mls/hr IVPB DAILY [facility] Stop: 11/17/16 21:50 Last Admin: 11/16/16 10:50 Dose: 210 mls/hr Dobutamine HCl/Dextrose (Dobutamine/Dextrose 5% 500mg/250ml) 500 mg in 250 mls @ 17.044 mls/hr IV .[id number] PRN; Protocol; 7.5 MCG/KG/MIN PRN Reason: TITRATE PER PROTOCOL Cefepime HCl (Maxipime 1gm) 1 gm in 100 mls @ 100 mls/hr IVPB Q12 [facility] PRN Reason: Protocol Insulin Detemir (Levemir) 20 unit SC DAILY [facility] Last Admin: 11/16/16 10:50 Dose: 20 unit Insulin Human Lispro (Humalog) 5 units SC ACHS [facility] Last Admin: 11/16/16 17:31 Dose: 5 units Insulin Human Lispro (Humalog Low) 0 units SC ACHS [facility] PRN Reason: Protocol Last Admin: 11/16/16 16:58 Dose: Not Given Lactobacillus Acidophilus (Bacid Acidophilus) 1 cap PO BID [facility] Last Admin: 11/16/16 17:31 Dose: 1 cap Levothyroxine Sodium (Synthroid) 125 mcg PO 0600 [facility] Last Admin: 11/16/16 05:56 Dose: 125 mcg Losartan Potassium (Cozaar) 12.5 mg PO DAILY [facility] Last Admin: 11/16/16 11:32 Dose: Not Given Metoprolol Tartrate (Lopressor) 25 mg PO BID [facility] Last Admin: 11/16/16 10:51 Dose: 25 mg Nystatin/Triamcinolone Acetonide (Nystatin/Triamcinolone Ointment) 0 gm TOP BID [facility] Last Admin: 11/16/16 17:30 Dose: 1 applic Polysaccharide Iron Complex (Ferrex-150) 150 mg PO DAILY [facility] Last Admin: 11/16/16 10:51 Dose: 150 mg Spironolactone (Aldactone) 25 mg PO BID [facility] Last Admin: 11/16/16 17:31 Dose: 25 mg Torsemide (Demadex) 10 mg PO Q12H [facility] Last Admin: 11/16/16 10:51 Dose: 10 mg Tramadol HCl (Ultram) 50 mg PO TID PRN PRN Reason: Pain, moderate (4-7) Last Admin: 11/16/16 02:01 Dose: 50 mg - Labs Labs: 11/16/16 04:30 11/16/16 04:30 PT 12.0 Seconds (9.9-11.8) H 10/20/16 09:29 INR 1.11 (0.93-1.08) H 10/20/16 09:29 APTT 27.8 Seconds (23.7-30.8) 10/20/16 09:29 - Constitutional Appears: Non-toxic, No Acute Distress - Head Exam Head Exam: NORMAL INSPECTION - Eye Exam Eye Exam: Normal appearance. absent: Scleral icterus - ENT Exam ENT Exam: Mucous Membranes Moist - Respiratory Exam Respiratory Exam: absent: Rales, Rhonchi, Wheezes Additional comments: Decreased basal breath sounds; - Cardiovascular Exam Cardiovascular Exam: Tachycardia, REGULAR RHYTHM, +S1, +S2 - GI/Abdominal Exam GI & Abdominal Exam: Soft. absent: Distended (fo), Tenderness - Exam Additional comments: pickens in place; - Extremities Exam Additional comments: Markedly edematous legs but much improved; - Neurological Exam Neurological Exam: Alert, Awake - Skin Skin Exam: Normal Color Additional comments: Lower legs cool to touch; Assessment and Plan (1) Shock Assessment & Plan: Severely hypotensive overnight and showing signs of end-organ dysfunction with altered mental status and acute kidney injury, all in the setting of inotrope being held; 4th time BP dropped upon holding inotropic agent, more pronounced since last time perhaps due to being on anti-htn meds for CHF; agree with restarting dobutamine; likely needs to be on inotrope as outpatient as well; Status: Acute (2) Acute renal failure Assessment & Plan: Recurring today in the setting of holding inotrope; restarted this morning; continue; will continue diuretics as well; Status: Acute (3) Hyponatremia Assessment & Plan: Worsened in the setting of likely cardiogenic shock; on tolvaptan 30 mg daily, should improve; Status: Acute (4) CHF (congestive heart failure) Assessment & Plan: Acute severely decompensated systolic CHF w/ MR; appears to go into cardiogenic shock when holding inotrope, since restarted; continue meds for cardiac optimization per cardiology; will continue to diurese; Status: Acute (5) Anemia Assessment & Plan: On IV iron, to complete 10 doses; Status: Acute (6) Metabolic alkalosis Assessment & Plan: Improved, continue aldactone; Status: Acute
[2016-11-16] MEDS: Cefepime 1gm in NS 100ml 1 GM/100 ML BAG IVPB SCH (23:52)
[2016-11-17 07:27] LABS: BASO # 0.02 K/mm3 (0.0-2.0); BASO % 0.1 % (0.0-3.0); EOS # 0.1 (0.0-0.7); EOS % 0.9 % (1.5-5.0); GRAN # 11.74 (1.4-6.5); GRAN % 85.8 % (50.0-68.0); HEMOGLOBIN 8.3 g/dL (12.0-16.0); LYMPH # 1.4 (1.2-3.4); LYMPH % 10.2 % (22.0-35.0); MEAN CELL VOLUME 78.7 fl (80.0-105.0); MEAN CORPUSCULAR HEMOGLOBIN 25.2 pg (25.0-35.0); MEAN PLATELET VOLUME 9.4 fl (7.0-11.0); MONO # 0.4 (0.1-0.6); PLATELET COUNT 408 10^3/uL (120.0-450.0); RBC 3.29 10^6/uL (3.5-6.1); RED CELL DISTRIBUTION WIDTH 22.4 % (11.5-14.5); WHITE BLOOD COUNT 13.7 10^3/ul (4.5-11.0)
--- NOTE | 2016-11-17 07:35 | CP.PCM.PN ---
<Gin Pires - Last Filed: 11/17/16 16:04> Subjective - Date & Time of Evaluation Date of Evaluation: 11/17/16 Time of Evaluation: 07:15 - Subjective Subjective: Patient seen and examined at bedside. Per nursing no acute events overnight. Patient reports feeling dizzy, BP measured to be 100/59, CBG 157. No other complaints at this time. Tolerating diet. Denies headache, visual changes, cp, sob, abdominal pain, changes in bowel habits. Dysuria has resolved. Objective - Vital Signs/Intake and Output Vital Signs (last 24 hours): Temp Pulse Resp BP Pulse Ox 97.9 F 109 H 19 95/59 L 97 11/16/16 17:46 11/16/16 18:00 11/16/16 17:46 11/16/16 17:46 11/16/16 06:00 - Medications Medications: Current Medications Apixaban (Eliquis) 5 mg PO BID [facility] PRN Reason: Protocol Last Admin: 11/16/16 17:31 Dose: 5 mg Bacitracin (Bacitracin) 0 gm TOP BID [facility] Last Admin: 11/16/16 17:30 Dose: 1 applic Digoxin (Lanoxin) 0.125 mg PO 1400 [facility] Last Admin: 11/16/16 14:59 Dose: 0.125 mg Iron Sucrose 100 mg/ Sodium (Chloride) 105 mls @ 210 mls/hr IVPB DAILY [facility] Stop: 11/17/16 21:50 Last Admin: 11/16/16 10:50 Dose: 210 mls/hr Dobutamine HCl/Dextrose (Dobutamine/Dextrose 5% 500mg/250ml) 500 mg in 250 mls @ 17.044 mls/hr IV .[id number] PRN; Protocol; 7.5 MCG/KG/MIN PRN Reason: TITRATE PER PROTOCOL Last Admin: 11/17/16 03:24 Dose: 17.044 mls/hr Cefepime HCl (Maxipime 1gm) 1 gm in 100 mls @ 100 mls/hr IVPB Q12 [facility] PRN Reason: Protocol Last Admin: 11/16/16 23:52 Dose: 100 mls/hr Insulin Detemir (Levemir) 20 unit SC DAILY [facility] Last Admin: 11/16/16 10:50 Dose: 20 unit Insulin Human Lispro (Humalog) 5 units SC ACHS [facility] Last Admin: 11/16/16 17:31 Dose: 5 units Insulin Human Lispro (Humalog Low) 0 units SC [facility] PRN Reason: Protocol Last Admin: 11/16/16 21:15 Dose: Not Given Lactobacillus Acidophilus (Bacid Acidophilus) 1 cap PO BID [facility] Last Admin: 11/16/16 17:31 Dose: 1 cap Levothyroxine Sodium (Synthroid) 125 mcg PO 0600 [facility] Last Admin: 11/16/16 05:56 Dose: 125 mcg Losartan Potassium (Cozaar) 12.5 mg PO DAILY [facility] Last Admin: 11/16/16 11:32 Dose: Not Given Metoprolol Tartrate (Lopressor) 25 mg PO BID [facility] Last Admin: 11/16/16 10:51 Dose: 25 mg Nystatin/Triamcinolone Acetonide (Nystatin/Triamcinolone Ointment) 0 gm TOP BID [facility] Last Admin: 11/16/16 17:30 Dose: 1 applic Polysaccharide Iron Complex (Ferrex-150) 150 mg PO DAILY [facility] Last Admin: 11/16/16 10:51 Dose: 150 mg Spironolactone (Aldactone) 25 mg PO BID [facility] Last Admin: 11/16/16 17:31 Dose: 25 mg Tolvaptan (Samsca) 30 mg PO DAILY [facility] Stop: 11/22/16 19:59 Torsemide (Demadex) 10 mg PO Q12H [facility] Last Admin: 11/16/16 10:51 Dose: 10 mg Tramadol HCl (Ultram) 50 mg PO TID PRN PRN Reason: Pain, moderate (4-7) Last Admin: 11/16/16 02:01 Dose: 50 mg - Labs Labs: 11/17/16 07:00 11/16/16 04:30 PT 12.0 Seconds (9.9-11.8) H 10/20/16 09:29 INR 1.11 (0.93-1.08) H 10/20/16 09:29 APTT 27.8 Seconds (23.7-30.8) 10/20/16 09:29 - Constitutional Appears: Non-toxic, No Acute Distress - Head Exam Head Exam: ATRAUMATIC, NORMAL INSPECTION - Eye Exam Eye Exam: EOMI, Normal appearance Pupil Exam: NORMAL ACCOMODATION - ENT Exam ENT Exam: Mucous Membranes Moist - Neck Exam Neck Exam: Full ROM - Respiratory Exam Respiratory Exam: Decreased Breath Sounds, NORMAL BREATHING PATTERN. absent: Rales, Rhonchi, Wheezes - Cardiovascular Exam Cardiovascular Exam: Tachycardia, +S1, +S2 - GI/Abdominal Exam GI & Abdominal Exam: Distended, Soft, Normal Bowel Sounds. absent: Tenderness - Extremities Exam Extremities Exam: Pedal Edema. absent: Calf Tenderness Additional comments: +3 pitting edema - Back Exam Back Exam: NORMAL INSPECTION - Neurological Exam Neurological Exam: Alert, Awake, Oriented x3 - Psychiatric Exam Psychiatric exam: Normal Affect, Normal Mood - Skin Skin Exam: Normal Color, Warm Assessment and Plan - Assessment and Plan (Free Text) Assessment: 51 y/o female with PMHx of DM2, CHF (EF 30% in 10/2016), HTN, chronic pulmonary effusion, HTN, DVT, PE, hypothyroidism, PSH of lap mitchell in 05/2016 and psych hx of schizophrenia and Bipolar disorder presented to the ED with complaints of abdominal pain. ECHO (10/18): EF 30% Plan: 1. Septic shock (tachycardia), likely a/w cardiogenic cause - Septic shock resolved - Patient tachycardic - BPs stable on Dobutamine 7.5. Patient tachycardic, will decrease to 5.0 - Will need to discuss possibly starting Milrinone for BP support - Hold Metoprolol, Continue Digoxin - Patient with R IJ central line that was placed 17 days ago, will need IV access, discussed with patient need for PICC line however patient is very adament about not getting PICC line, currently refusing - Cardiology on consult, will f/u recommendations - Palliative care consulted to discuss goals of care 2. Abdominal pain likely due to edema/anasarca and CHF state, improving - Pain control - Tramadol prn - Continue Fluid restriction - Daily weights unreliable - Monitor strict I/Os - GI consulted, recs appreciated 3. Hyponatremia - Serum Na 130 today - Continue Aldactone 25mg BID - Continue Tolvaptan - Monitor CMPs - Nephrology on consult, f/u recommendations 4. 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 Metabolic Alkalosis, resolved - Continue Torsamide 10mg Q12H - Nephro on consult, f/u recommendations 6. Anemia (multifatorial) likely 2/2 chronic disease and Iron deficiency - S/P 1 unit PRBcs on 11/08/16 - Hgb 8.3 this am - Transfuse if hgb < 8.0 - Continue IV iron, f/u am CBC - Per GI, no plan for endoscopy/colonoscopy at this time 7. Leukocytosis - Blood cx and urine cx negative - s/p Merrem, currently off antibiotics - WBC 13.7, afebrile - ID consulted, recs appreciated 8. Hypotension - Continue Dobutamine - Will need to discuss possibly trying Milrinone for BP support - Abdominal dopplers: patent portal vein with hepatopetal flow - Will f/u with case management and Social work in regards to placement 9. OLLIE likely due to shock (prerenal in nature due to low intravascular volume) - Cr improving - Nephro on consult, f/u recommendations 10. Transaminitis - Likely 2/2 shocked liver - AST/ALT continues to trend down - Avoid hepatic toxins - Continue to monitor 11. Hx UTI 10/19 grew VRE - Last UCx showed no growth - Complaining of dysuria, UA showed +nitrates, moderate leuk esterase, many bacteria (possibly contaminated) - Witt discontinued yesterday, dysuria resolved - Continue Cefepime (day 2) - Nystatin powder/ointment and Bacitracin for jr-vaginal yeast infection - ID consulted, recs appreciated 12. DM2, HONK resolved - Continue Levemir to 20U - c/w Lispro 5u, and ISS - Accuchecks QACHS 13. Hypothyroid - Continue Synthroid 125mcg PO 14. Hypokalemia, resolved - K+ today 4.6 - F/U am CMP 15. Hypomagnesemia - Continue to monitor 15. GI/DVT ppx - Eliquis 5mg BID (Hx of DVT/PE) - Protonix 40mg PO daily <Dion COOPER,Mau - Last Filed: 11/17/16 17:46> Objective - Vital Signs/Intake and Output Vital Signs (last 24 hours): Temp Pulse Resp BP Pulse Ox 97.9 F 121 H 20 117/68 97 11/17/16 12:00 11/17/16 14:00 11/17/16 12:00 11/17/16 12:00 11/16/16 06:00 Intake and Output: 11/17/16 11/17/16 06:59 18:59 Intake Total 1101 Output Total 800 2 Balance 301 -2 - Medications Medications: Current Medications Apixaban (Eliquis) 5 mg PO BID [facility] PRN Reason: Protocol Last Admin: 11/17/16 17:30 Dose: 5 mg Bacitracin (Bacitracin) 0 gm TOP BID [facility] Last Admin: 11/17/16 17:31 Dose: 1 applic Digoxin (Lanoxin) 0.125 mg PO 1400 [facility] Last Admin: 11/17/16 15:36 Dose: 0.125 mg Ferrous Sulfate (Feosol) 324 mg PO BID [facility] Iron Sucrose 100 mg/ Sodium (Chloride) 105 mls @ 210 mls/hr IVPB DAILY [facility] Stop: 11/17/16 21:50 Last Admin: 11/17/16 10:50 Dose: 210 mls/hr Cefepime HCl (Maxipime 1gm) 1 gm in 100 mls @ 100 mls/hr IVPB Q12 [facility] PRN Reason: Protocol Last Admin: 11/17/16 10:52 Dose: 100 mls/hr Dobutamine HCl/Dextrose (Dobutamine/Dextrose 5% 500mg/250ml) 500 mg in 250 mls @ 11.363 mls/hr IV .Q22H1M PRN; Protocol; 5 MCG/KG/MIN PRN Reason: TITRATE PER PROTOCOL Insulin Detemir (Levemir) 20 unit SC DAILY [facility] Last Admin: 11/17/16 10:51 Dose: 20 unit Insulin Human Lispro (Humalog) 5 units SC ACHS [facility] Last Admin: 11/17/16 17:29 Dose: 5 units Insulin Human Lispro (Humalog Low) 0 units SC ACHS [facility] PRN Reason: Protocol Last Admin: 11/17/16 17:29 Dose: 3 units Levothyroxine Sodium (Synthroid) 125 mcg PO 0600 [facility] Last Admin: 11/16/16 05:56 Dose: 125 mcg Losartan Potassium (Cozaar) 12.5 mg PO DAILY [facility] Last Admin: 11/17/16 11:17 Dose: Not Given Metoprolol Tartrate (Lopressor) 25 mg PO BID [facility] Last Admin: 11/16/16 10:51 Dose: 25 mg Nystatin/Triamcinolone Acetonide (Nystatin/Triamcinolone Ointment) 0 gm TOP BID [facility] Last Admin: 11/17/16 17:30 Dose: 1 applic Polysaccharide Iron Complex (Ferrex-150) 150 mg PO DAILY [facility] Last Admin: 11/17/16 10:52 Dose: 150 mg Spironolactone (Aldactone) 25 mg PO BID [facility] Last Admin: 11/17/16 17:30 Dose: 25 mg Tolvaptan (Samsca) 30 mg PO DAILY [facility] Stop: 11/22/16 19:59 Last Admin: 11/17/16 10:51 Dose: 30 mg Torsemide (Demadex) 10 mg PO Q12H [facility] Last Admin: 11/17/16 17:30 Dose: 10 mg Tramadol HCl (Ultram) 50 mg PO TID PRN PRN Reason: Pain, moderate (4-7) Last Admin: 11/16/16 02:01 Dose: 50 mg - Labs Labs: 11/17/16 07:00 11/17/16 07:00 PT 12.0 Seconds (9.9-11.8) H 10/20/16 09:29 INR 1.11 (0.93-1.08) H 10/20/16 09:29 APTT 27.8 Seconds (23.7-30.8) 10/20/16 09:29 Attending/Attestation - Attestation I have personally seen and examined this patient.: Yes I have fully participated in the care of the patient.: Yes I have reviewed all pertinent clinical information, including history, physical exam and plan: Yes Notes (Text): 11/17/16 17:38 Patient was seen and examined with medical records auditor. . 51 year old female with PMH of CHF (EF 30%), hypertension, hypothyroidism, schizophrenia and bipolar disorder was initially with abdominal pain. She was found to have anasarca, hyponatremia due to CHF exacerbation.She was also found to have sepsis and was treated with IV antibiotics .She is requiring Dobutamine for CHF. Hyponatremia is mproved.Patient is asymptometic. Nephrology follow up is appreciated . Patient is currently off antibiotics.She is afebrile, WBC count is stable Issue of hospice and palliative care was discussed in detail with patient.Patient was willing for discussion first but she is refusing again., Prognosis is guarded. Management plan was discussed in detail with patient Education was provided.
[2016-11-17 07:47] LABS: ALB/GLOB RATIO 0.8 (1.1-1.8); ALBUMIN 2.7 g/dL (3.0-4.8); ALT/SGPT 55 U/L (7-56); AST/SGOT 34 U/L (15-39); BLOOD UREA NITROGEN 27 mg/dL (7-21); CALCIUM 8.3 mg/dL (8.4-10.5); GFR AFRICAN-AMERICAN > 60; GFR NON-AFRICAN AMERICAN 52; MAGNESIUM 1.8 mg/dL (1.7-2.2)
[2016-11-17] MEDS: Insulin Lispro 1 UNITS/0.01 ML SC SCH ×4 (08:55→22:08)
[2016-11-17] MEDS: Insulin Lispro (humaLOG) LOW Coverage SC SCH ×4 (08:55→22:23)
[2016-11-17 09:31] LABS: URINE BILIRUBIN NEGATIVE (NEGATIVE); URINE BLOOD TRACE-INTACT (NEGATIVE); URINE GLUCOSE (UA) NEGATIVE (NEGATIVE); URINE LEUKOCYTE ESTERASE MODERATE Leu/uL (NEGATIVE); URINE NITRATE NEGATIVE (NEGATIVE); URINE PROTEIN NEGATIVE mg/dL (<30 mg/dL); URINE UROBILINOGEN 0.2 E.U./dL (<1 E.U./dL)
[2016-11-17 09:32] LABS: URINE APPEARANCE CLEAR (CLEAR); URINE COLOR YELLOW (YELLOW)
[2016-11-17 09:47] LABS: URINE RBC 0 - 2 /hpf (0-2)
[2016-11-17 09:48] LABS: URINE BACTERIA FEW (NEG); URINE WBC 25 - 30 /hpf (0-6)
[2016-11-17] MEDS: Lactobacillus Acidophilus 500 MU Cap PO SCH (10:51)
[2016-11-17] MEDS: Insulin Detemir 100 units/ml Vial (Levemir) SC SCH (10:51)
[2016-11-17] MEDS: Iron Complex Polysacch 150mg Cap PO SCH (10:52)
[2016-11-17] MEDS: Cefepime 1gm in NS 100ml 1 GM/100 ML BAG IVPB SCH ×2 (10:52→21:53)
[2016-11-17] MEDS: Nystatin-Triamcinolone Ointment(30 gm) TOP SCH ×2 (10:52→17:30)
[2016-11-17] MEDS: Bacitracin Ointment 30 GM TUBE TOP SCH ×2 (10:53→17:31)
[2016-11-17] MEDS: Digoxin 125 mcg (0.125 mg) Tab PO SCH (15:36)
[2016-11-17] MEDS: DOBUTamine 500mg/250ml D5W 500 MG/250 ML BAG IV PRN ×2 (19:13→21:53)
--- NOTE | 2016-11-17 19:16 | CP.PCM.PN ---
Objective - Vital Signs/Intake and Output Vital Signs (last 24 hours): Temp Pulse Resp BP Pulse Ox 97 F L 127 H 21 127/71 97 11/17/16 18:00 11/17/16 19:13 11/17/16 18:00 11/17/16 19:13 11/16/16 06:00 Intake and Output: 11/17/16 11/18/16 18:59 06:59 Output Total 2 Balance -2 - Medications Medications: Current Medications Apixaban (Eliquis) 5 mg PO BID [facility] PRN Reason: Protocol Last Admin: 11/17/16 17:30 Dose: 5 mg Bacitracin (Bacitracin) 0 gm TOP BID [facility] Last Admin: 11/17/16 17:31 Dose: 1 applic Digoxin (Lanoxin) 0.125 mg PO 1400 [facility] Last Admin: 11/17/16 15:36 Dose: 0.125 mg Ferrous Sulfate (Feosol) 324 mg PO BID [facility] Iron Sucrose 100 mg/ Sodium (Chloride) 105 mls @ 210 mls/hr IVPB DAILY [facility] Stop: 11/17/16 21:50 Last Admin: 11/17/16 10:50 Dose: 210 mls/hr Cefepime HCl (Maxipime 1gm) 1 gm in 100 mls @ 100 mls/hr IVPB Q12 [facility] PRN Reason: Protocol Last Admin: 11/17/16 10:52 Dose: 100 mls/hr Dobutamine HCl/Dextrose (Dobutamine/Dextrose 5% 500mg/250ml) 500 mg in 250 mls @ 11.363 mls/hr IV .Q22H1M PRN; Protocol; 5 MCG/KG/MIN PRN Reason: TITRATE PER PROTOCOL Last Admin: 11/17/16 19:13 Dose: 11.363 mls/hr Insulin Detemir (Levemir) 20 unit SC DAILY [facility] Last Admin: 11/17/16 10:51 Dose: 20 unit Insulin Human Lispro (Humalog) 5 units SC ACHS [facility] Last Admin: 11/17/16 17:29 Dose: 5 units Insulin Human Lispro (Humalog Low) 0 units SC ACHS [facility] PRN Reason: Protocol Last Admin: 11/17/16 17:29 Dose: 3 units Levothyroxine Sodium (Synthroid) 125 mcg PO 0600 [facility] Last Admin: 11/16/16 05:56 Dose: 125 mcg Losartan Potassium (Cozaar) 12.5 mg PO DAILY [facility] Last Admin: 11/17/16 11:17 Dose: Not Given Metoprolol Tartrate (Lopressor) 25 mg PO BID [facility] Last Admin: 11/16/16 10:51 Dose: 25 mg Nystatin/Triamcinolone Acetonide (Nystatin/Triamcinolone Ointment) 0 gm TOP BID [facility] Last Admin: 11/17/16 17:30 Dose: 1 applic Polysaccharide Iron Complex (Ferrex-150) 150 mg PO DAILY [facility] Last Admin: 11/17/16 10:52 Dose: 150 mg Spironolactone (Aldactone) 25 mg PO BID [facility] Last Admin: 11/17/16 17:30 Dose: 25 mg Tolvaptan (Samsca) 30 mg PO DAILY [facility] Stop: 11/22/16 19:59 Last Admin: 11/17/16 10:51 Dose: 30 mg Torsemide (Demadex) 10 mg PO Q12H [facility] Last Admin: 11/17/16 17:30 Dose: 10 mg Tramadol HCl (Ultram) 50 mg PO TID PRN PRN Reason: Pain, moderate (4-7) Last Admin: 11/16/16 02:01 Dose: 50 mg - Labs Labs: 11/17/16 07:00 11/17/16 07:00 PT 12.0 Seconds (9.9-11.8) H 10/20/16 09:29 INR 1.11 (0.93-1.08) H 10/20/16 09:29 APTT 27.8 Seconds (23.7-30.8) 10/20/16 09:29 Assessment and Plan (1) Shock Status: Acute (2) Acute renal failure Status: Acute (3) Hyponatremia Status: Acute (4) CHF (congestive heart failure) Status: Acute (5) Anemia Status: Acute (6) Metabolic alkalosis Status: Acute
--- NOTE | 2016-11-17 21:28 | PN ---
DATE: SUBJECTIVE: The patient's shortness of breath has improved slightly. She is still on Dobutrex infusion at 5 mcg per kg per minute. Her blood pressure was low earlier, both Cozaar and Lopressor were withheld. PHYSICAL EXAMINATION: VITAL SIGNS: Blood pressure 117/68, heart rate 129, temperature 97.9 and respirations 20. Sinus tachycardia on the monitor. HEENT: Pale conjunctivae. CHEST: Absent breath sounds over the bases. HEART: S1 and S2 regular. ABDOMEN: Mild ascites. EXTREMITIES: 2 to 3+ pitting edema. LABORATORY DATA: Hemoglobin and hematocrit 8.3 and 25.9, white count 15.7 and platelet count 408,000. SMA-7; sodium 103, potassium 4.6, chloride 97, CO2 of 27, glucose 130, BUN 27 and creatinine 1.1. ASSESSMENT: 1. Dilated cardiomyopathy. 2. Anasarca. 3. Chronic right subclavian vein thrombosis. 4. Anemia. 5. Improved renal insufficiency. 6. Diabetes mellitus. 7. Hypertension. RECOMMENDATIONS: Continue Eliquis 5 mg twice a day, Dobutrex infusion at 5 mcg per kg per minute. I did request for the nurse to hold both Cozaar and Lopressor for systolic blood pressure below 120. Continue Lanoxin 0.125 mg daily, Synthroid 125 mcg once a day, IV Maxipime 1 g q. 12 hours. Cesar Kinney MD
[2016-11-18] MEDS ORDERED: DOBUTamine 500mg/250ml D5W 500 MG/250 ML BAG IV PRN (01:08)
--- NOTE | 2016-11-18 06:01 | CP.PCM.PN ---
Subjective - Date & Time of Evaluation Date of Evaluation: 11/18/16 Time of Evaluation: 01:00 - Subjective Subjective: called by nurse pt, HR is 140 stacie 105 /.. . no fever pt is on dobutrex at 5 kim .pt denies complaints. Objective - Vital Signs/Intake and Output Vital Signs (last 24 hours): Temp Pulse Resp BP Pulse Ox 98.6 F 135 H 20 105/60 98 11/18/16 00:01 11/18/16 02:00 11/18/16 00:01 11/18/16 00:01 11/17/16 22:40 Intake and Output: 11/17/16 11/18/16 18:59 06:59 Output Total 2 Balance -2 - Medications Medications: Current Medications Apixaban (Eliquis) 5 mg PO BID [facility] PRN Reason: Protocol Last Admin: 11/17/16 17:30 Dose: 5 mg Bacitracin (Bacitracin) 0 gm TOP BID [facility] Last Admin: 11/17/16 17:31 Dose: 1 applic Digoxin (Lanoxin) 0.125 mg PO 1400 [facility] Last Admin: 11/17/16 15:36 Dose: 0.125 mg Ferrous Sulfate (Feosol) 324 mg PO BID [facility] Cefepime HCl (Maxipime 1gm) 1 gm in 100 mls @ 100 mls/hr IVPB Q12 [facility] PRN Reason: Protocol Last Admin: 11/17/16 21:53 Dose: 100 mls/hr Dobutamine HCl/Dextrose (Dobutamine/Dextrose 5% 500mg/250ml) 500 mg in 250 mls @ 6.818 mls/hr IV .Q24H PRN; Protocol; 3 MCG/KG/MIN PRN Reason: TITRATE PER PROTOCOL Insulin Detemir (Levemir) 20 unit SC DAILY [facility] Last Admin: 11/17/16 10:51 Dose: 20 unit Insulin Human Lispro (Humalog) 5 units SC ACHS [facility] Last Admin: 11/17/16 22:08 Dose: 5 units Insulin Human Lispro (Humalog Low) 0 units SC ACHS [facility] PRN Reason: Protocol Last Admin: 11/17/16 22:23 Dose: 1 units Levothyroxine Sodium (Synthroid) 125 mcg PO 0600 [facility] Last Admin: 11/16/16 05:56 Dose: 125 mcg Losartan Potassium (Cozaar) 12.5 mg PO DAILY [facility] Last Admin: 11/17/16 11:17 Dose: Not Given Metoprolol Tartrate (Lopressor) 25 mg PO BID [facility] Last Admin: 11/16/16 10:51 Dose: 25 mg Nystatin/Triamcinolone Acetonide (Nystatin/Triamcinolone Ointment) 0 gm TOP BID [facility] Last Admin: 11/17/16 17:30 Dose: 1 applic Polysaccharide Iron Complex (Ferrex-150) 150 mg PO DAILY [facility] Last Admin: 11/17/16 10:52 Dose: 150 mg Spironolactone (Aldactone) 25 mg PO BID [facility] Last Admin: 11/17/16 17:30 Dose: 25 mg Tolvaptan (Samsca) 30 mg PO DAILY [facility] Stop: 11/22/16 19:59 Last Admin: 11/17/16 10:51 Dose: 30 mg Torsemide (Demadex) 10 mg PO Q12H [facility] Last Admin: 11/17/16 17:30 Dose: 10 mg Tramadol HCl (Ultram) 50 mg PO TID PRN PRN Reason: Pain, moderate (4-7) Last Admin: 11/16/16 02:01 Dose: 50 mg - Labs Labs: 11/17/16 07:00 11/17/16 07:00 PT 12.0 Seconds (9.9-11.8) H 10/20/16 09:29 INR 1.11 (0.93-1.08) H 10/20/16 09:29 APTT 27.8 Seconds (23.7-30.8) 10/20/16 09:29 - Constitutional Appears: No Acute Distress - Head Exam Head Exam: NORMOCEPHALIC - Eye Exam Eye Exam: Normal appearance Pupil Exam: PERRL - ENT Exam ENT Exam: Mucous Membranes Moist - Neck Exam Neck Exam: Full ROM - Respiratory Exam Respiratory Exam: Clear to Ausculation Bilateral - Cardiovascular Exam Cardiovascular Exam: Tachycardia, +S1, +S2 - GI/Abdominal Exam GI & Abdominal Exam: Normal Bowel Sounds - Rectal Exam Rectal Exam: Deferred - Neurological Exam Neurological Exam: Alert, Awake, CN II-XII Intact, Oriented x3 - Psychiatric Exam Psychiatric exam: Normal Affect - Skin Additional comments: extremity +5 ededma with superficial erythema. Assessment and Plan - Assessment and Plan (Free Text) Assessment: sinus tachycardia/side effect of dobutrex . decreased the drip to 3 kim but no effect. hold the drip the hr improved to 119.
[2016-11-18] MEDS: Levothyroxine 125 MCG TAB PO SCH (06:03)
[2016-11-18] MEDS: Insulin Lispro 1 UNITS/0.01 ML SC SCH ×4 (08:29→21:24)
[2016-11-18] MEDS: Insulin Lispro (humaLOG) LOW Coverage SC SCH ×5 (08:30→21:19)
--- NOTE | 2016-11-18 10:06 | PN ---
SUBJECTIVE: The patient was resumed on Dobutrex infusion this morning. She has adequate diuresis. PHYSICAL EXAMINATION VITAL SIGNS: Blood pressure 93/66, heart rate 112, temperature 97.1, respiration 19. HEENT: Pale conjunctivae. CHEST: Demised breath sounds over the bases. HEART: S1 and S2 regular. EXTREMITIES: 2 to 3+ pedal edema. LABORATORY DATA: Hemoglobin and hematocrit are 9.8 and 3.5, white count and platelet count are 12.4 and 4,[id number]. SMA-7 sodium is 126, potassium is 5, chloride is 94, CO2 is 25, glucose is 96, BUN 27 and creatinine is 1.3. Chest x-ray reveals CHF as well as bilateral pleural effusion. ASSESSMENT: 1. Congestive heart failure. 2. Borderline hypertension. 3. Chronic right subclavian thrombosis. 4. Diabetes mellitus. CONDITIONS: Continue Lanoxin 0.125 mg daily, Eliquis 5 mg twice a day, Dobutrex 2.5 mcg/kg/minute. Both Cozaar and Lopressor are on hold. Witt catheter will be discontinued today. Cesar Kinney MD
[2016-11-18] MEDS: Bacitracin Ointment 30 GM TUBE TOP SCH ×2 (10:34→18:58)
[2016-11-18] MEDS: Iron Complex Polysacch 150mg Cap PO SCH (10:35)
[2016-11-18] MEDS: Insulin Detemir 100 units/ml Vial (Levemir) SC SCH (10:35)
[2016-11-18] MEDS: Cefepime 1gm in NS 100ml 1 GM/100 ML BAG IVPB SCH ×2 (10:36→23:02)
[2016-11-18] MEDS: Nystatin-Triamcinolone Ointment(30 gm) TOP SCH ×2 (10:37→18:57)
--- NOTE | 2016-11-18 11:19 | CP.PCM.PN ---
<Gin Pires - Last Filed: 11/18/16 12:32> Subjective - Date & Time of Evaluation Date of Evaluation: 11/18/16 Time of Evaluation: 07:10 - Subjective Subjective: Gin Pires DO, PGY-1, Internal Medicine, Hospitalist Service Patient seen and examined at bedside. Per nursing patient had HR in the 140s overnight, dobutamine was stopped. Patient is doing well, no complaints at this time. Ambulating and tolerating diet. Denies headache, dizziness, cp, sob, abdominal pain, urinary symptoms, changes in bowel habits. Objective - Vital Signs/Intake and Output Vital Signs (last 24 hours): Temp Pulse Resp BP Pulse Ox 98.7 F 125 H 20 97/65 L 98 11/18/16 06:00 11/18/16 06:00 11/18/16 06:00 11/18/16 06:00 11/17/16 22:40 Intake and Output: 11/18/16 11/18/16 06:59 18:59 Intake Total 76 Balance 76 - Medications Medications: Current Medications Alprazolam (Xanax) 0.25 mg PO TID PRN; Protocol PRN Reason: Anxiety Stop: 11/25/16 14:01 Apixaban (Eliquis) 5 mg PO BID [facility] PRN Reason: Protocol Last Admin: 11/18/16 10:35 Dose: 5 mg Bacitracin (Bacitracin) 0 gm TOP BID [facility] Last Admin: 11/18/16 10:34 Dose: 1 applic Digoxin (Lanoxin) 0.125 mg PO 1400 [facility] Last Admin: 11/17/16 15:36 Dose: 0.125 mg Ferrous Sulfate (Feosol) 324 mg PO BID [facility] Last Admin: 11/18/16 10:35 Dose: 324 mg Cefepime HCl (Maxipime 1gm) 1 gm in 100 mls @ 100 mls/hr IVPB Q12 [facility] PRN Reason: Protocol Last Admin: 11/18/16 10:36 Dose: 100 mls/hr Dobutamine HCl/Dextrose (Dobutamine/Dextrose 5% 500mg/250ml) 500 mg in 250 mls @ 6.818 mls/hr IV .Q24H PRN; Protocol; 3 MCG/KG/MIN PRN Reason: TITRATE PER PROTOCOL Insulin Detemir (Levemir) 20 unit SC DAILY [facility] Last Admin: 11/18/16 10:35 Dose: 20 unit Insulin Human Lispro (Humalog) 5 units SC ACHS [facility] Last Admin: 11/18/16 08:29 Dose: 5 units Insulin Human Lispro (Humalog Low) 0 units SC [facility] PRN Reason: Protocol Last Admin: 11/18/16 08:30 Dose: 1 units Levothyroxine Sodium (Synthroid) 125 mcg PO 0600 [facility] Last Admin: 11/18/16 06:03 Dose: 125 mcg Losartan Potassium (Cozaar) 12.5 mg PO DAILY [facility] Last Admin: 11/17/16 11:17 Dose: Not Given Metoprolol Tartrate (Lopressor) 12.5 mg PO BID [facility] Nystatin/Triamcinolone Acetonide (Nystatin/Triamcinolone Ointment) 0 gm TOP BID [facility] Last Admin: 11/18/16 10:37 Dose: 1 applic Polysaccharide Iron Complex (Ferrex-150) 150 mg PO DAILY [facility] Last Admin: 11/18/16 10:35 Dose: 150 mg Spironolactone (Aldactone) 25 mg PO BID [facility] Last Admin: 11/18/16 10:34 Dose: 25 mg Tolvaptan (Samsca) 30 mg PO DAILY [facility] Stop: 11/22/16 19:59 Last Admin: 11/17/16 10:51 Dose: 30 mg Torsemide (Demadex) 10 mg PO Q12H [facility] Last Admin: 11/18/16 06:03 Dose: 10 mg Tramadol HCl (Ultram) 50 mg PO TID PRN PRN Reason: Pain, moderate (4-7) Last Admin: 11/16/16 02:01 Dose: 50 mg - Labs Labs: 11/17/16 07:00 11/17/16 07:00 PT 12.0 Seconds (9.9-11.8) H 10/20/16 09:29 INR 1.11 (0.93-1.08) H 10/20/16 09:29 APTT 27.8 Seconds (23.7-30.8) 10/20/16 09:29 - Constitutional Appears: Well, No Acute Distress - Head Exam Head Exam: ATRAUMATIC, NORMAL INSPECTION - Eye Exam Eye Exam: EOMI, Normal appearance Pupil Exam: NORMAL ACCOMODATION - ENT Exam ENT Exam: Mucous Membranes Moist - Neck Exam Neck Exam: Full ROM Additional comments: R IJ central line - Respiratory Exam Respiratory Exam: Decreased Breath Sounds, Clear to Ausculation Bilateral. absent: Rales, Rhonchi, Wheezes - Cardiovascular Exam Cardiovascular Exam: Tachycardia, +S1, +S2 - GI/Abdominal Exam GI & Abdominal Exam: Distended, Soft, Normal Bowel Sounds. absent: Tenderness, Rebound - Extremities Exam Extremities Exam: Full ROM, Pedal Edema. absent: Calf Tenderness - Back Exam Back Exam: NORMAL INSPECTION - Neurological Exam Neurological Exam: Alert, Awake, Oriented x3 - Psychiatric Exam Psychiatric exam: Normal Affect, Normal Mood - Skin Skin Exam: Normal Color, Warm Assessment and Plan - Assessment and Plan (Free Text) Assessment: 51 y/o female with PMHx of DM2, CHF (EF 30% in 10/2016), HTN, chronic pulmonary effusion, HTN, DVT, PE, hypothyroidism, PSH of lap mitchell in 05/2016 and psych hx of schizophrenia and Bipolar disorder presented to the ED with complaints of abdominal pain. ECHO (10/18): EF 30% Plan: 1. Septic shock (tachycardia), likely a/w cardiogenic cause - Septic shock resolved - Patient tachycardic, will start Metoprolol 12.5mg BID with BP parameters - Dobutamine held at this time - Continue Digoxin - Cozaar on hold, if BPs remain stable can restart - Patient with R IJ central line that was placed 18 days ago, will need IV access, discussed with patient need for PICC line however patient is refusing PICC line, will remove central line if BPs remain stable - Cardiology on consult, will f/u recommendations - Palliative care consulted to discuss goals of care 2. Abdominal pain likely due to edema/anasarca and CHF state, improving - Pain control - Tramadol prn - Continue Fluid restriction - Daily weights unreliable - Monitor strict I/Os - GI consulted, recs appreciated 3. Hyponatremia - F/U labs - Continue Aldactone 25mg BID - Continue Tolvaptan - Monitor CMPs - Nephrology on consult, f/u recommendations 4. 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 Metabolic Alkalosis, resolved - Continue Torsamide 10mg Q12H - Nephro on consult, f/u recommendations 6. Anemia (multifatorial) likely 2/2 chronic disease and Iron deficiency - F/U labs - S/P 1 unit PRBCs on 11/08/16 - Transfuse if hgb < 8.0 - s/p IV iron x 10 days - Per GI, no plan for endoscopy/colonoscopy at this time 7. Leukocytosis - Repeat Urine Cx - Pseudomonas and Klebsiella - On Cefepime day 3 - Afebrile, f/u labs - ID consulted, recs appreciated 8. Hypotension - BPs currently stable off the dobtuamine - Abdominal dopplers: patent portal vein with hepatopetal flow - Will f/u with case management and Social work in regards to placement 9. OLLIE likely due to shock (prerenal in nature due to low intravascular volume) - Cr improving - Nephro on consult, f/u recommendations 10. Transaminitis - Likely 2/2 shocked liver - Avoid hepatic toxins - Continue to monitor 11. Hx UTI 10/19 grew VRE - Urine cx - Klebsiella, pseudomonas - Continue Cefepime (day 3) - Nystatin powder/ointment and Bacitracin for jr-vaginal yeast infection - ID consulted, recs appreciated 12. DM2, HONK resolved - Continue Levemir to 20U - c/w Lispro 5u, and ISS - Accuchecks QACHS 13. Hypothyroid - Continue Synthroid 125mcg PO 14. Hypokalemia, resolved - F/U am CMP 15. Hypomagnesemia - Continue to monitor 16. Hx of Bipolar d/o, schizophrenia - F/U psych consult 17. GI/DVT ppx - Eliquis 5mg BID (Hx of DVT/PE) - Protonix 40mg PO daily <Dion COOPER,Mau - Last Filed: 11/18/16 16:55> Objective - Vital Signs/Intake and Output Vital Signs (last 24 hours): Temp Pulse Resp BP Pulse Ox 97.4 F L 136 H 21 119/82 98 11/18/16 12:00 11/18/16 12:08 11/18/16 12:00 11/18/16 12:08 11/17/16 22:40 Intake and Output: 11/18/16 11/18/16 06:59 18:59 Intake Total 76 Balance 76 - Medications Medications: Current Medications Alprazolam (Xanax) 0.25 mg PO TID PRN; Protocol PRN Reason: Anxiety Stop: 11/25/16 14:01 Last Admin: 11/18/16 16:38 Dose: 0.25 mg Apixaban (Eliquis) 5 mg PO BID [facility] PRN Reason: Protocol Last Admin: 11/18/16 10:35 Dose: 5 mg Bacitracin (Bacitracin) 0 gm TOP BID [facility] Last Admin: 11/18/16 10:34 Dose: 1 applic Digoxin (Lanoxin) 0.125 mg PO 1400 [facility] Last Admin: 11/18/16 14:55 Dose: 0.125 mg Ferrous Sulfate (Feosol) 324 mg PO BID [facility] Last Admin: 11/18/16 10:35 Dose: 324 mg Cefepime HCl (Maxipime 1gm) 1 gm in 100 mls @ 100 mls/hr IVPB Q12 [facility] PRN Reason: Protocol Last Admin: 11/18/16 10:36 Dose: 100 mls/hr Dobutamine HCl/Dextrose (Dobutamine/Dextrose 5% 500mg/250ml) 500 mg in 250 mls @ 6.818 mls/hr IV .Q24H PRN; Protocol; 3 MCG/KG/MIN PRN Reason: TITRATE PER PROTOCOL Insulin Detemir (Levemir) 20 unit SC DAILY [facility] Last Admin: 11/18/16 10:35 Dose: 20 unit Insulin Human Lispro (Humalog) 5 units SC ACHS [facility] Last Admin: 11/18/16 16:38 Dose: 5 units Insulin Human Lispro (Humalog Low) 0 units SC ACHS [facility] PRN Reason: Protocol Last Admin: 11/18/16 16:39 Dose: 1 units Levothyroxine Sodium (Synthroid) 125 mcg PO 0600 [facility] Last Admin: 11/18/16 06:03 Dose: 125 mcg Losartan Potassium (Cozaar) 12.5 mg PO DAILY [facility] Last Admin: 11/17/16 11:17 Dose: Not Given Metoprolol Tartrate (Lopressor) 12.5 mg PO BID [facility] Last Admin: 11/18/16 12:08 Dose: 12.5 mg Nystatin/Triamcinolone Acetonide (Nystatin/Triamcinolone Ointment) 0 gm TOP BID [facility] Last Admin: 11/18/16 10:37 Dose: 1 applic Polysaccharide Iron Complex (Ferrex-150) 150 mg PO DAILY [facility] Last Admin: 11/18/16 10:35 Dose: 150 mg Spironolactone (Aldactone) 25 mg PO BID [facility] Last Admin: 11/18/16 10:34 Dose: 25 mg Tolvaptan (Samsca) 30 mg PO DAILY [facility] Stop: 11/22/16 19:59 Last Admin: 11/18/16 12:08 Dose: 30 mg Torsemide (Demadex) 10 mg PO Q12H [facility] Last Admin: 11/18/16 06:03 Dose: 10 mg Tramadol HCl (Ultram) 50 mg PO TID PRN PRN Reason: Pain, moderate (4-7) Last Admin: 11/16/16 02:01 Dose: 50 mg - Labs Labs: 11/18/16 12:00 11/18/16 12:00 PT 12.0 Seconds (9.9-11.8) H 10/20/16 09:29 INR 1.11 (0.93-1.08) H 10/20/16 09:29 APTT 27.8 Seconds (23.7-30.8) 10/20/16 09:29 Attending/Attestation - Attestation I have personally seen and examined this patient.: Yes I have fully participated in the care of the patient.: Yes I have reviewed all pertinent clinical information, including history, physical exam and plan: Yes Notes (Text): 11/18/16 16:49 Patient was seen and examined with medical transcriber. Patient blood pressure is better today.She is off Dobutamine.We will start patient on low dose of Metoprolol.If patient blood pressure allows, we will start on ARB. Patient is afebrile, urine cultures are growing Pseudomonas aureogonosa and K.Pneumonia.Patient is on Cefepime. Management plan was discussed in detail with patient Education was provided.
[2016-11-18 12:23] LABS: BASO # 0.02 K/mm3 (0.0-2.0); BASO % 0.2 % (0.0-3.0); EOS # 0.1 (0.0-0.7); EOS % 0.9 % (1.5-5.0); GRAN # 10.12 (1.4-6.5); GRAN % 81.9 % (50.0-68.0); HEMOGLOBIN 9.3 g/dL (12.0-16.0); LYMPH # 1.6 (1.2-3.4); LYMPH % 13.2 % (22.0-35.0); MEAN CELL VOLUME 79.9 fl (80.0-105.0); MEAN CORPUSCULAR HEMOGLOBIN 25.9 pg (25.0-35.0); MEAN CORPUSCULAR HGB CONC 32.4 g/dl (31.0-37.0); MEAN PLATELET VOLUME 9.3 fl (7.0-11.0); MONO # 0.5 (0.1-0.6); MONO % 3.8 % (1.0-6.0); PLATELET COUNT 434 10^3/uL (120.0-450.0); RBC 3.59 10^6/uL (3.5-6.1); RED CELL DISTRIBUTION WIDTH 22.7 % (11.5-14.5); WHITE BLOOD COUNT 12.4 10^3/ul (4.5-11.0)
[2016-11-18 12:34] LABS: ALBUMIN 3.1 g/dL (3.0-4.8); ALT/SGPT 56 U/L (7-56); AST/SGOT 34 U/L (15-39); BLOOD UREA NITROGEN 23 mg/dL (7-21); CALCIUM 8.4 mg/dL (8.4-10.5); GFR AFRICAN-AMERICAN > 60; GFR NON-AFRICAN AMERICAN 58; MAGNESIUM 1.7 mg/dL (1.7-2.2)
[2016-11-18] MEDS: Digoxin 125 mcg (0.125 mg) Tab PO SCH (14:55)
--- NOTE | 2016-11-18 18:15 | CP.PCM.PN ---
Subjective - Date & Time of Evaluation Date of Evaluation: 11/18/16 Time of Evaluation: 10:40 - Subjective Subjective: Patient tachycardic into 140's this morning, therefore dobutamine drip stopped; reports urinating frequently both day and night; Objective - Vital Signs/Intake and Output Vital Signs (last 24 hours): Temp Pulse Resp BP Pulse Ox 97.4 F L 124 H 21 119/82 98 11/18/16 12:00 11/18/16 14:00 11/18/16 12:00 11/18/16 12:08 11/17/16 22:40 Intake and Output: 11/18/16 11/18/16 06:59 18:59 Intake Total 76 Balance 76 - Medications Medications: Current Medications Alprazolam (Xanax) 0.25 mg PO TID PRN; Protocol PRN Reason: Anxiety Stop: 11/25/16 14:01 Last Admin: 11/18/16 16:38 Dose: 0.25 mg Apixaban (Eliquis) 5 mg PO BID [facility] PRN Reason: Protocol Last Admin: 11/18/16 10:35 Dose: 5 mg Digoxin (Lanoxin) 0.125 mg PO 1400 [facility] Last Admin: 11/18/16 14:55 Dose: 0.125 mg Ferrous Sulfate (Feosol) 324 mg PO BID [facility] Last Admin: 11/18/16 10:35 Dose: 324 mg Cefepime HCl (Maxipime 1gm) 1 gm in 100 mls @ 100 mls/hr IVPB Q12 [facility] PRN Reason: Protocol Last Admin: 11/18/16 10:36 Dose: 100 mls/hr Dobutamine HCl/Dextrose (Dobutamine/Dextrose 5% 500mg/250ml) 500 mg in 250 mls @ 6.818 mls/hr IV .Q24H PRN; Protocol; 3 MCG/KG/MIN PRN Reason: TITRATE PER PROTOCOL Insulin Detemir (Levemir) 20 unit SC DAILY [facility] Last Admin: 11/18/16 10:35 Dose: 20 unit Insulin Human Lispro (Humalog) 5 units SC ACHS [facility] Last Admin: 11/18/16 16:38 Dose: 5 units Insulin Human Lispro (Humalog Low) 0 units SC ACHS [facility] PRN Reason: Protocol Last Admin: 11/18/16 16:39 Dose: 1 units Levothyroxine Sodium (Synthroid) 125 mcg PO 0600 [facility] Last Admin: 11/18/16 06:03 Dose: 125 mcg Losartan Potassium (Cozaar) 12.5 mg PO DAILY [facility] Last Admin: 11/17/16 11:17 Dose: Not Given Metoprolol Tartrate (Lopressor) 12.5 mg PO BID [facility] Last Admin: 11/18/16 12:08 Dose: 12.5 mg Polysaccharide Iron Complex (Ferrex-150) 150 mg PO DAILY [facility] Last Admin: 11/18/16 10:35 Dose: 150 mg Spironolactone (Aldactone) 25 mg PO BID [facility] Last Admin: 11/18/16 10:34 Dose: 25 mg Tolvaptan (Samsca) 30 mg PO DAILY [facility] Stop: 11/22/16 19:59 Last Admin: 11/18/16 12:08 Dose: 30 mg Torsemide (Demadex) 10 mg PO Q12H [facility] Last Admin: 11/18/16 06:03 Dose: 10 mg Tramadol HCl (Ultram) 50 mg PO TID PRN PRN Reason: Pain, moderate (4-7) Last Admin: 11/16/16 02:01 Dose: 50 mg - Labs Labs: 11/18/16 12:00 11/18/16 12:00 PT 12.0 Seconds (9.9-11.8) H 10/20/16 09:29 INR 1.11 (0.93-1.08) H 10/20/16 09:29 APTT 27.8 Seconds (23.7-30.8) 10/20/16 09:29 - Constitutional Appears: Non-toxic, No Acute Distress - Head Exam Head Exam: NORMAL INSPECTION - Eye Exam Eye Exam: Normal appearance. absent: Scleral icterus - ENT Exam ENT Exam: Mucous Membranes Moist - Respiratory Exam Respiratory Exam: absent: Rales, Rhonchi, Wheezes, Respiratory Distress Additional comments: Decreased basal breath sounds; - Cardiovascular Exam Cardiovascular Exam: Tachycardia, Gallop Additional comments: S3 present; - GI/Abdominal Exam GI & Abdominal Exam: Soft. absent: Distended - Extremities Exam Additional comments: Markedly edematous lower legs; - Neurological Exam Neurological Exam: Alert, Awake - Skin Skin Exam: Normal Color, Warm. absent: Cyanosis Assessment and Plan (1) Shock Assessment & Plan: Resolved after restarting inotropic agent and antibiotics 2 days ago; possible combination of both cardiogenic and septic shock secondary to UTI; dobutamine stopped this morning due to severe tachycardia; monitor for end-organ dysfunction (decreased mentation, OLLIE); Status: Acute (2) Acute renal failure Assessment & Plan: Had improved after restarting inotrope, currently stopped; continue diuresis with torsemide 10 mg bid and spironolactone 25 mg bid to decrease venous congestion; Status: Acute (3) Hyponatremia Assessment & Plan: Improved with being on tolvaptan 30 mg daily, continue same; Status: Acute (4) CHF (congestive heart failure) Assessment & Plan: Acute severely decompensated CHF w/ MR; custodial options limited by patient's social situation and facilities' unwilling to take on inotropic drip; currently off losartan after recent hypotension; continue diuresis as above; Status: Acute (5) Anemia Assessment & Plan: Relatively stable s/p prbc transfusion; completed IV iron course; monitor; Status: Acute (6) Metabolic alkalosis Assessment & Plan: Resolved; continue spironolactone; Status: Acute
--- NOTE | 2016-11-18 19:41 | CON ---
HISTORY OF PRESENT ILLNESS: The patient is a 51-year-old female reported history of bipolar disorder, history of multiple medical problems including diabetes, hypertension, hypothyroidism, COPD, CHF, on Lasix. The patient was admitted on the medical side for abdominal pain. Psych canceled was called for evaluation of mood symptoms as well as the patient has psych history as well as for psych clearance. This news writer is very familiar with this patient from the previous admission on psychiatric inpatient unit. The patient was on Risperdal as well as on Xanax back then. The patient was paranoid back then. The patient was discharged from the psychiatric inpatient unit in May 2016. The patient was seen and examined today. The patient presented to be alert. The patient remembered this news writer by name. The patient said that she is not doing that well. The patient reported that she feels anxious. The patient reported that she is upset because of her medical issues. The patient hearing voices. Denied seeing things. Denied paranoid ideation. The patient does not present to be psychotic. The patient denied thoughts of harming herself or others. Compliant with the treatment and med management. As per medical team, the patient had septic shock, which has resolved; CHF, which is improving; hyponatremia; metabolic acidosis; anemia; leukocytosis, which is improving; hypertension; acute kidney injury; transaminitis; diabetes; hypothyroidism; hypokalemia; hypomagnesemia. PHYSICAL EXAMINATION VITAL SIGNS: This news writer reviewed vital signs. Vital signs seem to be stable, but the patient is tachycardic 125, temperature 98.7, blood pressure 97/65, respirations 20, oxygen saturation 98%. MEDICATIONS: Reviewed. The patient also on multiple medications including Tramadol, Demadex, tolvaptan, spironolactone, Ferrex, Nystatin, Lopressor, Cozaar, Synthroid, Humalog, Levemir, ____, digoxin, cefepime, Bactrim. This news writer will implement Xanax as needed for anxiety. LABORATORY DATA: Labs reviewed. WBCs are still elevated 13.7, hemoglobin and hematocrit is 8.3 and 25.9 respectively. Chemistry, sodium 130, chloride 97, BUN 27. Urinalysis showed on the 10th blood trace, leukocyte esterase moderate. MENTAL STATUS EXAMINATION: The patient presented to be alert, sick looking female, intermittent eye contact. Speech underproductive. She has no answers. Mood described "I'm alright." Affect was flat. Thought process concrete. Thought content, the patient denied visual, auditory, or tactile hallucinations. Denied paranoid ideations. The patient denied thoughts of harming herself or others. Denied intent or plan. Insight and judgment are fair. Impulses are well controlled. IMPRESSION: As per history, the patient has mood disorder, rule out schizoaffective disorder, rule out bipolar. The patient has multiple medical issues. Please see above. PLAN: Medical team called for a psychiatric clearance. The patient presented to be upset over her medical issues but adamantly denied being depressed. Denied thoughts of harming herself or others. Denied intent or plan. There are no psychotic symptoms elicited. The patient is complying with the treatment. No behavioral incident. This news writer will Implement Xanax as needed for anxiety because the patient was taking that medication. The patient considered to be not in any acute distress, deemed not to be in danger to self or others. This news writer will sign off. For the next week, Dr. Weller is covering for this news writer. Should you have any questions, give him a call back ____ re-consult. Thank you very much for letting me participate in the care of your patient. Should you have any questions, give me a call back. Sherri Castaneda MD
[2016-11-19] MEDS: Levothyroxine 125 MCG TAB PO SCH (05:24)
[2016-11-19 05:51] LABS: HEMOGLOBIN 10.1 g/dL (12.0-16.0); MEAN CELL VOLUME 79.6 fl (80.0-105.0); MEAN CORPUSCULAR HEMOGLOBIN 26.1 pg (25.0-35.0); MEAN CORPUSCULAR HGB CONC 32.8 g/dl (31.0-37.0); MEAN PLATELET VOLUME 9.4 fl (7.0-11.0); PLATELET COUNT 494 10^3/uL (120.0-450.0); RBC 3.87 10^6/uL (3.5-6.1); RED CELL DISTRIBUTION WIDTH 22.9 % (11.5-14.5); WHITE BLOOD COUNT 14.7 10^3/ul (4.5-11.0)
[2016-11-19 05:55] LABS: ALBUMIN 3.2 g/dL (3.0-4.8); ALT/SGPT 71 U/L (7-56); AST/SGOT 53 U/L (15-39); BLOOD UREA NITROGEN 33 mg/dL (7-21); CALCIUM 8.5 mg/dL (8.4-10.5); GFR AFRICAN-AMERICAN > 60; GFR NON-AFRICAN AMERICAN > 60; MAGNESIUM 1.7 mg/dL (1.7-2.2)
[2016-11-19 08:05] LABS: BAND 4 % (0-2); NEUTROPHIL 71 % (50.0-70.0)
[2016-11-19 08:06] LABS: EOSINOPHIL 1 % (0.0-3.0); LYMPHOCYTE 17 % (22.0-35.0); MONOCYTE 5 % (1.0-6.0)
[2016-11-19 08:07] LABS: MYELOCYTE 2 %
[2016-11-19 08:08] LABS: ANISOCYTOSIS 1+; HYPOCHROMIA 1+; POIKILOCYTOSIS 1+
[2016-11-19 08:09] LABS: PLATELET ESTIMATE HIGH (NORMAL)
[2016-11-19] MEDS: Insulin Lispro 1 UNITS/0.01 ML SC SCH ×3 (08:11→17:13)
[2016-11-19] MEDS: Insulin Lispro (humaLOG) LOW Coverage SC SCH ×3 (08:12→17:13)
[2016-11-19] MEDS: Insulin Detemir 100 units/ml Vial (Levemir) SC SCH (09:35)
[2016-11-19] MEDS: Cefepime 1gm in NS 100ml 1 GM/100 ML BAG IVPB SCH ×2 (09:35→21:18)
[2016-11-19] MEDS: Iron Complex Polysacch 150mg Cap PO SCH (09:36)
--- NOTE | 2016-11-19 11:57 | CP.PCM.PN ---
Subjective - Date & Time of Evaluation Date of Evaluation: 11/19/16 Time of Evaluation: 10:15 - Subjective Subjective: Comfortable on a chair, no dysuria currently but had dysuria a few days ago. No fevers overnight. Objective - Vital Signs/Intake and Output Vital Signs (last 24 hours): Temp Pulse Resp BP Pulse Ox 98.1 F 102 H 20 101/64 100 11/19/16 05:50 11/19/16 05:50 11/19/16 05:50 11/19/16 05:50 11/19/16 05:50 Intake and Output: 11/19/16 11/19/16 06:59 18:59 Intake Total 560 Output Total 300 Balance 260 - Medications Medications: Current Medications Alprazolam (Xanax) 0.25 mg PO TID PRN; Protocol PRN Reason: Anxiety Stop: 11/25/16 14:01 Last Admin: 11/18/16 21:24 Dose: 0.25 mg Apixaban (Eliquis) 5 mg PO BID [facility] PRN Reason: Protocol Last Admin: 11/18/16 18:42 Dose: 5 mg Digoxin (Lanoxin) 0.125 mg PO 1400 [facility] Last Admin: 11/18/16 14:55 Dose: 0.125 mg Ferrous Sulfate (Feosol) 324 mg PO BID [facility] Last Admin: 11/18/16 18:43 Dose: Not Given Cefepime HCl (Maxipime 1gm) 1 gm in 100 mls @ 100 mls/hr IVPB Q12 [facility] PRN Reason: Protocol Last Admin: 11/18/16 23:02 Dose: 100 mls/hr Dobutamine HCl/Dextrose (Dobutamine/Dextrose 5% 500mg/250ml) 500 mg in 250 mls @ 6.818 mls/hr IV .Q24H PRN; Protocol; 3 MCG/KG/MIN PRN Reason: TITRATE PER PROTOCOL Insulin Detemir (Levemir) 20 unit SC DAILY [facility] Last Admin: 11/18/16 10:35 Dose: 20 unit Insulin Human Lispro (Humalog) 5 units SC ACHS [facility] Last Admin: 11/18/16 21:24 Dose: 5 units Insulin Human Lispro (Humalog Low) 0 units SC ACHS [facility] PRN Reason: Protocol Last Admin: 11/18/16 21:19 Dose: Not Given Levothyroxine Sodium (Synthroid) 125 mcg PO 0600 [facility] Last Admin: 11/19/16 05:24 Dose: 125 mcg Losartan Potassium (Cozaar) 12.5 mg PO DAILY [facility] Last Admin: 11/17/16 11:17 Dose: Not Given Metoprolol Tartrate (Lopressor) 12.5 mg PO BID [facility] Last Admin: 11/18/16 18:42 Dose: 12.5 mg Polysaccharide Iron Complex (Ferrex-150) 150 mg PO DAILY [facility] Last Admin: 11/18/16 10:35 Dose: 150 mg Spironolactone (Aldactone) 25 mg PO BID [facility] Last Admin: 11/18/16 18:42 Dose: 25 mg Tolvaptan (Samsca) 30 mg PO DAILY [facility] Stop: 11/22/16 19:59 Last Admin: 11/18/16 12:08 Dose: 30 mg Torsemide (Demadex) 10 mg PO Q12H [facility] Last Admin: 11/18/16 18:42 Dose: 10 mg Tramadol HCl (Ultram) 50 mg PO TID PRN PRN Reason: Pain, moderate (4-7) Last Admin: 11/18/16 19:48 Dose: 50 mg - Labs Labs: 11/19/16 05:31 11/19/16 05:31 PT 12.0 Seconds (9.9-11.8) H 10/20/16 09:29 INR 1.11 (0.93-1.08) H 10/20/16 09:29 APTT 27.8 Seconds (23.7-30.8) 10/20/16 09:29 - Constitutional Appears: Non-toxic, No Acute Distress - Head Exam Head Exam: NORMAL INSPECTION - Respiratory Exam Respiratory Exam: Decreased Breath Sounds - Cardiovascular Exam Cardiovascular Exam: +S1, +S2 - GI/Abdominal Exam GI & Abdominal Exam: Soft. absent: Tenderness Assessment and Plan - Assessment and Plan (Free Text) Plan: Assessment consider lower UTI with Klebsiella and Pseudomonas in a patient with a Witt catheter S/P severe sepsis S/P hypoxic ventilator-dependent respiratory failure probably due to bilateral lower lobe healthcare-associated pneumonia with possible gram positive cocci, gram negative bacilli and/or atypical organisms, with associated hyperglycemic, hyperosmolar state with also acute pancreatitis - clinically improved and continues to be off antibiotics - still with leukocytosis, but probably reactive VRE in the urine, probably asymptomatic bacteriuria, continues to be asymptomatic chronic congestive heart failure due to cardiomyopathy elevated Alk phos and transaminases in a patient with pancreatitis as well as hepatic congestion history of healthcare-associated pneumonia, right middle lobe history of bilateral healthcare-associated pneumonia in this patient chronic heart failure S/P acute cholecystitis, S/P laparoscopic cholecystectomy CAD with chronic CHF DM HTN history of migraines bipolar disorder Plan continue Cefepime day 3; would recommend Witt catheter removal or change if it has not been done recently will continue to monitor clinically
--- NOTE | 2016-11-19 12:30 | CP.PCM.PN ---
<Christiano Lopes - Last Filed: 11/19/16 13:16> Subjective - Date & Time of Evaluation Date of Evaluation: 11/19/16 Time of Evaluation: 07:25 - Subjective Subjective: Christiano Lopes DO, PGY-1, Hospitalist Services Dr. Ashley Patient seen and examined at bedside. Nurse report no events overnight. Patient denies any CP, SOB, N/V/D Objective - Vital Signs/Intake and Output Vital Signs (last 24 hours): Temp Pulse Resp BP Pulse Ox 98.1 F 128 H 20 104/73 100 11/19/16 05:50 11/19/16 10:00 11/19/16 05:50 11/19/16 09:40 11/19/16 05:50 Intake and Output: 11/19/16 11/19/16 06:59 18:59 Intake Total 560 Output Total 300 Balance 260 - Medications Medications: Current Medications Alprazolam (Xanax) 0.25 mg PO TID PRN; Protocol PRN Reason: Anxiety Stop: 11/25/16 14:01 Last Admin: 11/18/16 21:24 Dose: 0.25 mg Apixaban (Eliquis) 5 mg PO BID [facility] PRN Reason: Protocol Last Admin: 11/19/16 09:36 Dose: 5 mg Digoxin (Lanoxin) 0.125 mg PO 1400 [facility] Last Admin: 11/18/16 14:55 Dose: 0.125 mg Ferrous Sulfate (Feosol) 324 mg PO BID [facility] Last Admin: 11/19/16 09:36 Dose: 324 mg Cefepime HCl (Maxipime 1gm) 1 gm in 100 mls @ 100 mls/hr IVPB Q12 [facility] PRN Reason: Protocol Last Admin: 11/19/16 09:35 Dose: 100 mls/hr Dobutamine HCl/Dextrose (Dobutamine/Dextrose 5% 500mg/250ml) 500 mg in 250 mls @ 6.818 mls/hr IV .Q24H PRN; Protocol; 3 MCG/KG/MIN PRN Reason: TITRATE PER PROTOCOL Insulin Detemir (Levemir) 20 unit SC DAILY [facility] Last Admin: 11/19/16 09:35 Dose: 20 unit Insulin Human Lispro (Humalog) 5 units SC ACHS [facility] Last Admin: 11/19/16 12:23 Dose: 5 units Insulin Human Lispro (Humalog Low) 0 units SC ACHS [facility] PRN Reason: Protocol Last Admin: 11/19/16 12:23 Dose: 2 units Levothyroxine Sodium (Synthroid) 125 mcg PO 0600 [facility] Last Admin: 11/19/16 05:24 Dose: 125 mcg Losartan Potassium (Cozaar) 12.5 mg PO DAILY [facility] Last Admin: 11/17/16 11:17 Dose: Not Given Metoprolol Tartrate (Lopressor) 12.5 mg PO BID [facility] Last Admin: 11/19/16 09:40 Dose: Not Given Polysaccharide Iron Complex (Ferrex-150) 150 mg PO DAILY [facility] Last Admin: 11/19/16 09:36 Dose: 150 mg Spironolactone (Aldactone) 25 mg PO BID [facility] Last Admin: 11/19/16 09:36 Dose: 25 mg Tolvaptan (Samsca) 30 mg PO DAILY [facility] Stop: 11/22/16 19:59 Last Admin: 11/19/16 09:44 Dose: 30 mg Torsemide (Demadex) 10 mg PO Q12H [facility] Last Admin: 11/19/16 09:36 Dose: 10 mg Tramadol HCl (Ultram) 50 mg PO TID PRN PRN Reason: Pain, moderate (4-7) Last Admin: 11/18/16 19:48 Dose: 50 mg - Labs Labs: 11/19/16 05:31 11/19/16 05:31 PT 12.0 Seconds (9.9-11.8) H 10/20/16 09:29 INR 1.11 (0.93-1.08) H 10/20/16 09:29 APTT 27.8 Seconds (23.7-30.8) 10/20/16 09:29 - Head Exam Additional comments: - Constitutional Appears: Well, No Acute Distress - Head Exam Head Exam: ATRAUMATIC, NORMAL INSPECTION - Eye Exam Eye Exam: EOMI, Normal appearance Pupil Exam: NORMAL ACCOMODATION - ENT Exam ENT Exam: Mucous Membranes Moist - Neck Exam Neck Exam: Full ROM Additional comments: R IJ central line - Respiratory Exam Respiratory Exam: Decreased Breath Sounds, Clear to Ausculation Bilateral. absent: Rales, Rhonchi, Wheezes - Cardiovascular Exam Cardiovascular Exam: Tachycardia, +S1, +S2 - GI/Abdominal Exam GI & Abdominal Exam: Distended, Soft, Normal Bowel Sounds. absent: Tenderness, Rebound - Extremities Exam Extremities Exam: Full ROM, Pedal Edema. absent: Calf Tenderness - Back Exam Back Exam: NORMAL INSPECTION - Neurological Exam Neurological Exam: Alert, Awake, Oriented x3 - Psychiatric Exam Psychiatric exam: Normal Affect, Normal Mood - Skin Skin Exam: Normal Color, Warm Assessment and Plan - Assessment and Plan (Free Text) Assessment: 51 y/o female with PMHx of DM2, CHF (EF 30% in 10/2016), HTN, chronic pulmonary effusion, HTN, DVT, PE, hypothyroidism, PSH of lap mitchell in 05/2016 and psych hx of schizophrenia and Bipolar disorder presented to the ED with complaints of abdominal pain. ECHO (10/18): EF 30% Plan: 1. Septic shock (tachycardia), likely a/w cardiogenic cause - Septic shock resolved - Patient tachycardic, will start Metoprolol 12.5mg BID with BP parameters - Dobutamine held at this time - Continue Digoxin - Cozaar on hold, if BPs remain stable can restart - Patient agreeable to insert a peripheral line and remove Right Internal Jugular central line. - Cardiology on consult, will f/u recommendations - Palliative care consulted to discuss goals of care 2. Abdominal pain likely due to edema/anasarca and CHF state, improving - Pain control - Tramadol prn - Continue Fluid restriction - Daily weights unreliable - Monitor strict I/Os - GI consulted, recs appreciated 3. Hyponatremia - F/U labs - Continue Aldactone 25mg BID - Continue Tolvaptan - Monitor CMPs - Nephrology on consult, f/u recommendations 4. 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 Metabolic Alkalosis, resolved - Continue Torsamide 10mg Q12H - Nephro on consult, f/u recommendations 6. Anemia (multifatorial) likely 2/2 chronic disease and Iron deficiency - F/U labs - S/P 1 unit PRBCs on 11/08/16 - Transfuse if hgb < 8.0 - s/p IV iron x 10 days - Per GI, no plan for endoscopy/colonoscopy at this time 7. Leukocytosis - Repeat Urine Cx - Pseudomonas and Klebsiella - On Cefepime day 3 - Afebrile, f/u labs - ID consulted, recs appreciated 8. Hypotension - BPs currently stable off the dobtuamine - Abdominal dopplers: patent portal vein with hepatopetal flow - Will f/u with case management and Social work in regards to placement 9. OLLIE likely due to shock (prerenal in nature due to low intravascular volume) - Cr improving - Nephro on consult, f/u recommendations 10. Transaminitis - Likely 2/2 shocked liver - Avoid hepatic toxins - Continue to monitor 11. Hx UTI 10/19 grew VRE - Urine cx - Klebsiella, pseudomonas - Continue Cefepime (day 3) - Nystatin powder/ointment and Bacitracin for jr-vaginal yeast infection - ID consulted, recs appreciated 12. DM2, HONK resolved - Continue Levemir to 20U - c/w Lispro 5u, and ISS - Accuchecks QACHS 13. Hypothyroid - Continue Synthroid 125mcg PO 14. Hypokalemia, resolved - F/U am CMP 15. Hypomagnesemia - Continue to monitor 16. Hx of Bipolar d/o, schizophrenia - Appreciate recommendations from psychiatry. Patient now on Xanax 0.25 TID PRN for anxiety. 17. GI/DVT ppx - Eliquis 5mg BID (Hx of DVT/PE) - Protonix 40mg PO daily <Dion COOPER,Annettebankskobe - Last Filed: 11/19/16 13:27> Objective - Vital Signs/Intake and Output Vital Signs (last 24 hours): Temp Pulse Resp BP Pulse Ox 98.3 F 123 H 20 117/73 100 11/19/16 12:00 11/19/16 12:00 11/19/16 12:00 11/19/16 12:00 11/19/16 05:50 Intake and Output: 11/19/16 11/19/16 06:59 18:59 Intake Total 560 Output Total 300 Balance 260 - Medications Medications: Current Medications Alprazolam (Xanax) 0.25 mg PO TID PRN; Protocol PRN Reason: Anxiety Stop: 11/25/16 14:01 Last Admin: 11/18/16 21:24 Dose: 0.25 mg Apixaban (Eliquis) 5 mg PO BID [facility] PRN Reason: Protocol Last Admin: 08/12/17 09:36 Dose: 5 mg Digoxin (Lanoxin) 0.125 mg PO 1400 [facility] Last Admin: 11/18/16 14:55 Dose: 0.125 mg Ferrous Sulfate (Feosol) 324 mg PO BID [facility] Last Admin: 11/19/16 09:36 Dose: 324 mg Cefepime HCl (Maxipime 1gm) 1 gm in 100 mls @ 100 mls/hr IVPB Q12 [facility] PRN Reason: Protocol Last Admin: 11/19/16 09:35 Dose: 100 mls/hr Dobutamine HCl/Dextrose (Dobutamine/Dextrose 5% 500mg/250ml) 500 mg in 250 mls @ 6.818 mls/hr IV .Q24H PRN; Protocol; 3 MCG/KG/MIN PRN Reason: TITRATE PER PROTOCOL Insulin Detemir (Levemir) 20 unit SC DAILY [facility] Last Admin: 11/19/16 09:35 Dose: 20 unit Insulin Human Lispro (Humalog) 5 units SC ACHS [facility] Last Admin: 11/19/16 12:23 Dose: 5 units Insulin Human Lispro (Humalog Low) 0 units SC [facility] PRN Reason: Protocol Last Admin: 11/19/16 12:23 Dose: 2 units Levothyroxine Sodium (Synthroid) 125 mcg PO 0600 [facility] Last Admin: 11/19/16 05:24 Dose: 125 mcg Losartan Potassium (Cozaar) 12.5 mg PO DAILY [facility] Last Admin: 11/17/16 11:17 Dose: Not Given Metoprolol Tartrate (Lopressor) 12.5 mg PO BID [facility] Last Admin: 11/19/16 09:40 Dose: Not Given Polysaccharide Iron Complex (Ferrex-150) 150 mg PO DAILY [facility] Last Admin: 11/19/16 09:36 Dose: 150 mg Spironolactone (Aldactone) 25 mg PO BID [facility] Last Admin: 11/19/16 09:36 Dose: 25 mg Tolvaptan (Samsca) 30 mg PO DAILY [facility] Stop: 11/22/16 19:59 Last Admin: 11/19/16 09:44 Dose: 30 mg Torsemide (Demadex) 10 mg PO Q12H [facility] Last Admin: 11/19/16 09:36 Dose: 10 mg Tramadol HCl (Ultram) 50 mg PO TID PRN PRN Reason: Pain, moderate (4-7) Last Admin: 11/18/16 19:48 Dose: 50 mg - Labs Labs: 11/19/16 05:31 11/19/16 05:31 PT 12.0 Seconds (9.9-11.8) H 10/20/16 09:29 INR 1.11 (0.93-1.08) H 10/20/16 09:29 APTT 27.8 Seconds (23.7-30.8) 10/20/16 09:29 Attending/Attestation - Attestation I have personally seen and examined this patient.: Yes I have fully participated in the care of the patient.: Yes I have reviewed all pertinent clinical information, including history, physical exam and plan: Yes Notes (Text): 11/19/16 13:22 Patient was seen and examined with medical chief technician. 51 year old female with PMH of CHF (EF 30%), hypertension, hypothyroidism, schizophrenia and bipolar disorder was initially with abdominal pain. She was found to have anasarca, hyponatremia due to CHF exacerbation.She was also found to have sepsis and was treated with IV antibiotics .She is requiring Dobutamine intermittently for CHF and for low blood pressure. Patient is off dobutamine since more than 24 hours.Blood pressure is soft, patient is tolerating low dose of metoprolol.Transaminase are mildly high today due to CHF.We will give extra dose of lasix . Hyponatremia is stable .Patient is asymptometic. Nephrology follow up is appreciated . UTI on cefepime, Urine cultures are growing Pseudomonas and K.Pneumonia Prognosis is guarded. Management plan was discussed in detail with patient Education was provided.
[2016-11-19] MEDS: Digoxin 125 mcg (0.125 mg) Tab PO SCH (13:54)
--- NOTE | 2016-11-19 15:54 | CP.PCM.PN ---
Subjective - Date & Time of Evaluation Date of Evaluation: 11/19/16 Time of Evaluation: 09:30 - Subjective Subjective: Reports breathing well; tolerating diet; urinating frequently; legs still feel tight; Objective - Vital Signs/Intake and Output Vital Signs (last 24 hours): Temp Pulse Resp BP Pulse Ox 98.3 F 132 H 20 117/73 100 11/19/16 12:00 11/19/16 14:00 11/19/16 12:00 11/19/16 12:00 11/19/16 05:50 Intake and Output: 11/19/16 11/19/16 06:59 18:59 Intake Total 560 Output Total 300 Balance 260 - Medications Medications: Current Medications Alprazolam (Xanax) 0.25 mg PO TID PRN; Protocol PRN Reason: Anxiety Stop: 11/25/16 14:01 Last Admin: 11/19/16 15:07 Dose: 0.25 mg Apixaban (Eliquis) 5 mg PO BID [facility] PRN Reason: Protocol Last Admin: 11/19/16 09:36 Dose: 5 mg Digoxin (Lanoxin) 0.125 mg PO 1400 [facility] Last Admin: 11/19/16 13:54 Dose: 0.125 mg Ferrous Sulfate (Feosol) 324 mg PO BID [facility] Last Admin: 11/19/16 09:36 Dose: 324 mg Cefepime HCl (Maxipime 1gm) 1 gm in 100 mls @ 100 mls/hr IVPB Q12 [facility] PRN Reason: Protocol Last Admin: 11/19/16 09:35 Dose: 100 mls/hr Dobutamine HCl/Dextrose (Dobutamine/Dextrose 5% 500mg/250ml) 500 mg in 250 mls @ 6.818 mls/hr IV .Q24H PRN; Protocol; 3 MCG/KG/MIN PRN Reason: TITRATE PER PROTOCOL Insulin Detemir (Levemir) 20 unit SC DAILY [facility] Last Admin: 11/19/16 09:35 Dose: 20 unit Insulin Human Lispro (Humalog) 5 units SC ACHS [facility] Last Admin: 11/19/16 12:23 Dose: 5 units Insulin Human Lispro (Humalog Low) 0 units SC ACHS [facility] PRN Reason: Protocol Last Admin: 11/19/16 12:23 Dose: 2 units Levothyroxine Sodium (Synthroid) 125 mcg PO 0600 [facility] Last Admin: 11/19/16 05:24 Dose: 125 mcg Losartan Potassium (Cozaar) 12.5 mg PO DAILY [facility] Last Admin: 11/17/16 11:17 Dose: Not Given Metoprolol Tartrate (Lopressor) 12.5 mg PO BID [facility] Last Admin: 11/19/16 09:40 Dose: Not Given Polysaccharide Iron Complex (Ferrex-150) 150 mg PO DAILY [facility] Last Admin: 11/19/16 09:36 Dose: 150 mg Spironolactone (Aldactone) 25 mg PO BID [facility] Last Admin: 11/19/16 09:36 Dose: 25 mg Tolvaptan (Samsca) 30 mg PO DAILY [facility] Stop: 11/22/16 19:59 Last Admin: 11/19/16 09:44 Dose: 30 mg Torsemide (Demadex) 20 mg PO Q12H [facility] Tramadol HCl (Ultram) 50 mg PO TID PRN PRN Reason: Pain, moderate (4-7) Last Admin: 11/18/16 19:48 Dose: 50 mg - Labs Labs: 11/19/16 05:31 11/19/16 05:31 PT 12.0 Seconds (9.9-11.8) H 10/20/16 09:29 INR 1.11 (0.93-1.08) H 10/20/16 09:29 APTT 27.8 Seconds (23.7-30.8) 10/20/16 09:29 - Constitutional Appears: Non-toxic, No Acute Distress - Head Exam Head Exam: NORMAL INSPECTION - Eye Exam Eye Exam: Normal appearance. absent: Scleral icterus - ENT Exam ENT Exam: Mucous Membranes Moist - Respiratory Exam Respiratory Exam: absent: Rales, Rhonchi, Wheezes Additional comments: decreased basal breath sounds; - Cardiovascular Exam Cardiovascular Exam: Tachycardia. absent: Gallop Additional comments: systolic murmur present; - GI/Abdominal Exam GI & Abdominal Exam: Soft. absent: Distended, Tenderness - Extremities Exam Additional comments: Marked bilateral leg edema, more tense since a few days ago; - Neurological Exam Neurological Exam: Alert, Awake - Skin Skin Exam: Normal Color, Warm. absent: Cyanosis Assessment and Plan (1) Shock Assessment & Plan: Resolved; BP holding though off doutamine; continue to monitor; continue abx ( no renal dose adjustment needed); Status: Acute (2) Acute renal failure Assessment & Plan: Had been resolving; BUN now increased further indicating worsening pre-renal picture due to decreased cardiac output since stopping dobutamine; UO appears to have decreased (judging by exam) with increased serum potassium; -increasing torsemide to 20 mg q12h to help decrease venous congestion -continue aldactone 25 mg bid Status: Acute (3) Hyponatremia Assessment & Plan: Slightly worsened since stopping dobutamine; -continue tolvaptan 30 mg daily; Status: Acute (4) CHF (congestive heart failure) Assessment & Plan: Acute severely decompensated systolic CHF w/ MR; off dobutamine due to tachycardia which continues to persist; BP holding but somewhat worsened CHF status; increasing diuretics as mentioned above; Status: Acute (5) Anemia Assessment & Plan: Hgb stable s/p prbc transfusion and IV iron loading; monitor; Status: Acute (6) Metabolic alkalosis Assessment & Plan: Stable; continue aldactone 25 mg bid; Status: Acute
[2016-11-20] MEDS: Insulin Lispro 1 UNITS/0.01 ML SC SCH ×5 (02:16→22:30)
[2016-11-20] MEDS: Levothyroxine 125 MCG TAB PO SCH (05:07)
[2016-11-20] MEDS: Insulin Lispro (humaLOG) LOW Coverage SC SCH ×4 (08:19→22:30)
[2016-11-20 09:32] LABS: BASO % 0.8 % (0.0-3.0); EOS # 0.2 (0.0-0.7); EOS % 1.7 % (1.5-5.0); GRAN # 8.84 (1.4-6.5); GRAN % 66.8 % (50.0-68.0); HEMOGLOBIN 10.3 g/dL (12.0-16.0); LYMPH # 3.2 (1.2-3.4); LYMPH % 24.3 % (22.0-35.0); MEAN CELL VOLUME 79.6 fl (80.0-105.0); MEAN CORPUSCULAR HEMOGLOBIN 26.3 pg (25.0-35.0); MEAN PLATELET VOLUME 9.6 fl (7.0-11.0); MONO # 0.9 (0.1-0.6); MONO % 6.4 % (1.0-6.0); PLATELET COUNT 526 10^3/uL (120.0-450.0); RBC 3.92 10^6/uL (3.5-6.1); WHITE BLOOD COUNT 13.2 10^3/ul (4.5-11.0)
[2016-11-20 09:39] LABS: ALBUMIN 3.2 g/dL (3.0-4.8); ALT/SGPT 60 U/L (7-56); AST/SGOT 35 U/L (15-39); BLOOD UREA NITROGEN 36 mg/dL (7-21); CALCIUM 8.6 mg/dL (8.4-10.5); GFR AFRICAN-AMERICAN > 60; GFR NON-AFRICAN AMERICAN 58; MAGNESIUM 1.5 mg/dL (1.7-2.2)
[2016-11-20] MEDS: Iron Complex Polysacch 150mg Cap PO SCH (11:16)
[2016-11-20] MEDS: Cefepime 1gm in NS 100ml 1 GM/100 ML BAG IVPB SCH ×2 (11:17→21:36)
[2016-11-20] MEDS: Insulin Detemir 100 units/ml Vial (Levemir) SC SCH (11:20)
[2016-11-20] MEDS: Digoxin 125 mcg (0.125 mg) Tab PO SCH (13:51)
--- NOTE | 2016-11-20 14:07 | CP.PCM.PN ---
Subjective - Date & Time of Evaluation Date of Evaluation: 11/20/16 Time of Evaluation: 09:30 - Subjective Subjective: Patient reports breathing improved; legs still feel tight; Objective - Vital Signs/Intake and Output Vital Signs (last 24 hours): Temp Pulse Resp BP Pulse Ox 97.6 F 120 H 20 121/85 99 11/20/16 12:00 11/20/16 12:00 11/20/16 12:00 11/20/16 12:00 11/20/16 05:24 - Medications Medications: Current Medications Alprazolam (Xanax) 0.25 mg PO TID PRN; Protocol PRN Reason: Anxiety Stop: 11/25/16 14:01 Last Admin: 11/20/16 13:51 Dose: 0.25 mg Apixaban (Eliquis) 5 mg PO BID [facility] PRN Reason: Protocol Last Admin: 11/20/16 11:15 Dose: 5 mg Digoxin (Lanoxin) 0.125 mg PO 1400 [facility] Last Admin: 11/20/16 13:51 Dose: 0.125 mg Ferrous Sulfate (Feosol) 324 mg PO BID [facility] Last Admin: 11/20/16 11:16 Dose: 324 mg Cefepime HCl (Maxipime 1gm) 1 gm in 100 mls @ 100 mls/hr IVPB Q12 [facility] PRN Reason: Protocol Last Admin: 11/20/16 11:17 Dose: 100 mls/hr Dobutamine HCl/Dextrose (Dobutamine/Dextrose 5% 500mg/250ml) 500 mg in 250 mls @ 6.818 mls/hr IV .Q24H PRN; Protocol; 3 MCG/KG/MIN PRN Reason: TITRATE PER PROTOCOL Insulin Detemir (Levemir) 20 unit SC DAILY [facility] Last Admin: 11/20/16 11:20 Dose: 20 unit Insulin Human Lispro (Humalog) 5 units SC ACHS [facility] Last Admin: 11/20/16 11:20 Dose: 5 units Insulin Human Lispro (Humalog Low) 0 units SC ACHS [facility] PRN Reason: Protocol Last Admin: 11/20/16 11:20 Dose: 4 units Levothyroxine Sodium (Synthroid) 125 mcg PO 0600 [facility] Last Admin: 11/20/16 05:07 Dose: 125 mcg Losartan Potassium (Cozaar) 12.5 mg PO DAILY [facility] Last Admin: 11/17/16 11:17 Dose: Not Given Metoprolol Tartrate (Lopressor) 12.5 mg PO BID [facility] Last Admin: 11/20/16 11:15 Dose: 12.5 mg Polysaccharide Iron Complex (Ferrex-150) 150 mg PO DAILY [facility] Last Admin: 11/20/16 11:16 Dose: Not Given Spironolactone (Aldactone) 25 mg PO BID [facility] Last Admin: 11/20/16 11:15 Dose: 25 mg Tolvaptan (Samsca) 30 mg PO DAILY [facility] Stop: 11/22/16 19:59 Last Admin: 11/19/16 09:44 Dose: 30 mg Torsemide (Demadex) 20 mg PO Q12H [facility] Last Admin: 11/20/16 08:19 Dose: 20 mg Tramadol HCl (Ultram) 50 mg PO TID PRN PRN Reason: Pain, moderate (4-7) Last Admin: 11/19/16 21:17 Dose: 50 mg - Labs Labs: 11/20/16 09:25 11/20/16 09:25 PT 12.0 Seconds (9.9-11.8) H 10/20/16 09:29 INR 1.11 (0.93-1.08) H 10/20/16 09:29 APTT 27.8 Seconds (23.7-30.8) 10/20/16 09:29 - Constitutional Appears: Non-toxic, No Acute Distress - Head Exam Head Exam: NORMAL INSPECTION - Eye Exam Eye Exam: Normal appearance. absent: Scleral icterus - ENT Exam ENT Exam: Mucous Membranes Moist - Respiratory Exam Respiratory Exam: absent: Rales, Rhonchi, Wheezes, Respiratory Distress Additional comments: Improved R basal breath sounds - Cardiovascular Exam Cardiovascular Exam: Gallop, RRR Additional comments: soft systolic murmur; S3 present; - GI/Abdominal Exam GI & Abdominal Exam: Soft. absent: Distended, Tenderness - Extremities Exam Additional comments: Severely edematous lower legs; - Neurological Exam Neurological Exam: Alert, Awake - Skin Skin Exam: Normal Color, Warm. absent: Cyanosis Assessment and Plan (1) Shock Assessment & Plan: BP currently holding off dobutamine drip; continue to monitor; Status: Acute (2) Acute renal failure Assessment & Plan: Had been resolving but now increasing BUN since being off dobutamine is indicative of worsening pre-renal state from cardiorenal etiology; torsemide dose increased from 10 mg to 20 mg q12h yesterday but it appears we've reached a limit to diuresis without inotropic support; -continue current diuretics to decrease venous congestion; Status: Acute (3) Hyponatremia Assessment & Plan: Improved on tolvaptan 30 mg daily, continue same; Status: Acute (4) CHF (congestive heart failure) Assessment & Plan: Severely decompensated systolic CHF w/ MR; as mentioned above, unable to increase diuresis off inotropic support; BP holding but patient has S3 on exam and severely edematous legs that have gotten worse; -continue current diuretic regimen Status: Acute (5) Anemia Assessment & Plan: Improved and stable after iron loading/prbc transfusion; monitor; Status: Acute (6) Metabolic alkalosis Assessment & Plan: Stable on aldactone, continue; Status: Acute
[2016-11-20] MEDS ORDERED: Magnesium Sulfate 2 GM in Sodium Chloride 0.9% 100 ML IVPB ONE (14:21)
--- NOTE | 2016-11-20 14:23 | CP.PCM.PN ---
<Gin Pires - Last Filed: 11/20/16 14:59> Subjective - Date & Time of Evaluation Date of Evaluation: 11/20/16 Time of Evaluation: 07:30 - Subjective Subjective: Gin Pires DO, PGY-1, Internal Medicine, Hospital Service Patient seen and examined at bedside. Per nursing no acute events overnight. Patient is doing well, breathing improved. Denies headaches, dizziness, fevers, chills, cp, sob, abdominal pain, urinary symptoms. Objective - Vital Signs/Intake and Output Vital Signs (last 24 hours): Temp Pulse Resp BP Pulse Ox 97.6 F 120 H 20 121/85 99 11/20/16 12:00 11/20/16 12:00 11/20/16 12:00 11/20/16 12:00 11/20/16 05:24 - Medications Medications: Current Medications Alprazolam (Xanax) 0.25 mg PO TID PRN; Protocol PRN Reason: Anxiety Stop: 11/25/16 14:01 Last Admin: 11/20/16 13:51 Dose: 0.25 mg Apixaban (Eliquis) 5 mg PO BID [facility] PRN Reason: Protocol Last Admin: 11/20/16 11:15 Dose: 5 mg Digoxin (Lanoxin) 0.125 mg PO 1400 [facility] Last Admin: 11/20/16 13:51 Dose: 0.125 mg Ferrous Sulfate (Feosol) 324 mg PO BID [facility] Last Admin: 11/20/16 11:16 Dose: 324 mg Cefepime HCl (Maxipime 1gm) 1 gm in 100 mls @ 100 mls/hr IVPB Q12 [facility] PRN Reason: Protocol Last Admin: 11/20/16 11:17 Dose: 100 mls/hr Dobutamine HCl/Dextrose (Dobutamine/Dextrose 5% 500mg/250ml) 500 mg in 250 mls @ 6.818 mls/hr IV .Q24H PRN; Protocol; 3 MCG/KG/MIN PRN Reason: TITRATE PER PROTOCOL Magnesium Sulfate 2 gm/ Sodium (Chloride) 104 mls @ 102 mls/hr IVPB ONCE ONE Stop: 11/20/16 15:22 Insulin Detemir (Levemir) 20 unit SC DAILY [facility] Last Admin: 11/20/16 11:20 Dose: 20 unit Insulin Human Lispro (Humalog) 5 units SC [facility] Last Admin: 11/20/16 11:20 Dose: 5 units Insulin Human Lispro (Humalog Low) 0 units SC [facility] PRN Reason: Protocol Last Admin: 11/20/16 11:20 Dose: 4 units Levothyroxine Sodium (Synthroid) 125 mcg PO 0600 [facility] Last Admin: 11/20/16 05:07 Dose: 125 mcg Losartan Potassium (Cozaar) 12.5 mg PO DAILY [facility] Last Admin: 11/17/16 11:17 Dose: Not Given Metoprolol Tartrate (Lopressor) 12.5 mg PO BID [facility] Last Admin: 11/20/16 11:15 Dose: 12.5 mg Polysaccharide Iron Complex (Ferrex-150) 150 mg PO DAILY [facility] Last Admin: 11/20/16 11:16 Dose: Not Given Spironolactone (Aldactone) 25 mg PO BID [facility] Last Admin: 11/20/16 11:15 Dose: 25 mg Tolvaptan (Samsca) 30 mg PO DAILY [facility] Stop: 11/22/16 19:59 Last Admin: 11/19/16 09:44 Dose: 30 mg Torsemide (Demadex) 20 mg PO Q12H [facility] Last Admin: 11/20/16 08:19 Dose: 20 mg Tramadol HCl (Ultram) 50 mg PO TID PRN PRN Reason: Pain, moderate (4-7) Last Admin: 11/19/16 21:17 Dose: 50 mg - Labs Labs: 11/20/16 09:25 11/20/16 09:25 PT 12.0 Seconds (9.9-11.8) H 10/20/16 09:29 INR 1.11 (0.93-1.08) H 10/20/16 09:29 APTT 27.8 Seconds (23.7-30.8) 10/20/16 09:29 - Constitutional Appears: Non-toxic, No Acute Distress - Head Exam Head Exam: ATRAUMATIC, NORMAL INSPECTION - Eye Exam Eye Exam: EOMI, Normal appearance Pupil Exam: NORMAL ACCOMODATION - ENT Exam ENT Exam: Mucous Membranes Moist - Neck Exam Neck Exam: Full ROM Additional comments: R IJ central line - Respiratory Exam Respiratory Exam: Decreased Breath Sounds, NORMAL BREATHING PATTERN. absent: Rhonchi, Wheezes - Cardiovascular Exam Cardiovascular Exam: Tachycardia, +S1, +S2 - GI/Abdominal Exam GI & Abdominal Exam: Distended, Soft, Normal Bowel Sounds. absent: Guarding, Rigid, Tenderness - Extremities Exam Extremities Exam: Full ROM. absent: Calf Tenderness Additional comments: +2 LE edema B/L - Back Exam Back Exam: NORMAL INSPECTION - Neurological Exam Neurological Exam: Alert, Awake, Oriented x3 - Psychiatric Exam Psychiatric exam: Normal Affect, Normal Mood - Skin Skin Exam: Normal Color, Warm Assessment and Plan - Assessment and Plan (Free Text) Assessment: Assessment: 51 y/o female with PMHx of DM2, CHF (EF 30% in 10/2016), HTN, chronic pulmonary effusion, HTN, DVT, PE, hypothyroidism, PSH of lap mitchell in 05/2016 and psych hx of schizophrenia and Bipolar disorder presented to the ED with complaints of abdominal pain. ECHO (10/18): EF 30% Plan: 1. Septic shock (tachycardia), likely a/w cardiogenic cause - Septic shock resolved - Patient tachycardic, Continue Metoprolol 12.5mg BID with BP parameters - Dobutamine held for > 24 hours, BPs stable - Continue Digoxin - Will restart Cozaar - Cardiology on consult, will f/u recommendations - Palliative care consulted to discuss goals of care - Will remove R IJ central line tomorrow 2. Abdominal pain likely due to edema/anasarca and CHF state, improving - Pain control - Tramadol prn - Continue Fluid restriction - Daily weights unreliable - Monitor strict I/Os - GI consulted, recs appreciated 3. Hyponatremia - F/U labs - Continue Aldactone 25mg BID - Continue Tolvaptan - Monitor CMPs - Nephrology on consult, f/u recommendations 4. 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 Metabolic Alkalosis, resolved - Continue Torsamide 10mg Q12H - Nephro on consult, f/u recommendations 6. Anemia (multifatorial) likely 2/2 chronic disease and Iron deficiency - F/U labs - S/P 1 unit PRBCs on 11/08/16 - Transfuse if hgb < 8.0 - s/p IV iron x 10 days - Per GI, no plan for endoscopy/colonoscopy at this time 7. Leukocytosis - Repeat Urine Cx - Pseudomonas and Klebsiella - On Cefepime day 5 - Afebrile, f/u labs - ID consulted, recs appreciated 8. Hypotension - BPs currently stable off the dobtuamine - Abdominal dopplers: patent portal vein with hepatopetal flow - Will f/u with case management and Social work in regards to placement 9. OLLIE likely due to shock (prerenal in nature due to low intravascular volume) - Cr improving - Nephro on consult, f/u recommendations 10. Transaminitis - Likely 2/2 shocked liver - Avoid hepatic toxins - Continue to monitor 11. Hx UTI 10/19 grew VRE - Urine cx - Klebsiella, pseudomonas - Continue Cefepime (day 5) - Nystatin powder/ointment and Bacitracin for jr-vaginal yeast infection - ID consulted, recs appreciated 12. DM2, HONK resolved - Continue Levemir to 20U - c/w Lispro 5u, and ISS - Accuchecks QACHS 13. Hypothyroid - Continue Synthroid 125mcg PO 14. Hypokalemia, resolved - F/U am CMP 15. Hypomagnesemia - Continue to monitor 16. Hx of Bipolar d/o, schizophrenia - Xanax 0.25 TID PRN for anxiety - F/U psych recommendations 17. GI/DVT ppx - Eliquis 5mg BID (Hx of DVT/PE) - Protonix 40mg PO daily <Dion COOPER,Mau - Last Filed: 11/20/16 15:04> Objective - Vital Signs/Intake and Output Vital Signs (last 24 hours): Temp Pulse Resp BP Pulse Ox 97.6 F 120 H 20 121/85 99 11/20/16 12:00 11/20/16 12:00 11/20/16 12:00 11/20/16 12:00 11/20/16 05:24 - Medications Medications: Current Medications Alprazolam (Xanax) 0.25 mg PO TID PRN; Protocol PRN Reason: Anxiety Stop: 11/25/16 14:01 Last Admin: 11/20/16 13:51 Dose: 0.25 mg Apixaban (Eliquis) 5 mg PO BID [facility] PRN Reason: Protocol Last Admin: 11/20/16 11:15 Dose: 5 mg Digoxin (Lanoxin) 0.125 mg PO 1400 [facility] Last Admin: 11/20/16 13:51 Dose: 0.125 mg Ferrous Sulfate (Feosol) 324 mg PO BID [facility] Last Admin: 11/20/16 11:16 Dose: 324 mg Cefepime HCl (Maxipime 1gm) 1 gm in 100 mls @ 100 mls/hr IVPB Q12 [facility] PRN Reason: Protocol Last Admin: 11/20/16 11:17 Dose: 100 mls/hr Dobutamine HCl/Dextrose (Dobutamine/Dextrose 5% 500mg/250ml) 500 mg in 250 mls @ 6.818 mls/hr IV .Q24H PRN; Protocol; 3 MCG/KG/MIN PRN Reason: TITRATE PER PROTOCOL Magnesium Sulfate 2 gm/ Sodium (Chloride) 104 mls @ 102 mls/hr IVPB ONCE ONE Stop: 11/20/16 15:22 Insulin Detemir (Levemir) 20 unit SC DAILY [facility] Last Admin: 11/20/16 11:20 Dose: 20 unit Insulin Human Lispro (Humalog) 5 units SC [facility] Last Admin: 11/20/16 11:20 Dose: 5 units Insulin Human Lispro (Humalog Low) 0 units SC [facility] PRN Reason: Protocol Last Admin: 11/20/16 11:20 Dose: 4 units Levothyroxine Sodium (Synthroid) 125 mcg PO 0600 [facility] Last Admin: 11/20/16 05:07 Dose: 125 mcg Losartan Potassium (Cozaar) 12.5 mg PO DAILY [facility] Last Admin: 11/17/16 11:17 Dose: Not Given Metoprolol Tartrate (Lopressor) 12.5 mg PO BID [facility] Last Admin: 11/20/16 11:15 Dose: 12.5 mg Polysaccharide Iron Complex (Ferrex-150) 150 mg PO DAILY [facility] Last Admin: 11/20/16 11:16 Dose: Not Given Spironolactone (Aldactone) 25 mg PO BID [facility] Last Admin: 11/20/16 11:15 Dose: 25 mg Tolvaptan (Samsca) 30 mg PO DAILY [facility] Stop: 11/22/16 19:59 Last Admin: 11/19/16 09:44 Dose: 30 mg Torsemide (Demadex) 20 mg PO Q12H [facility] Last Admin: 11/20/16 08:19 Dose: 20 mg Tramadol HCl (Ultram) 50 mg PO TID PRN PRN Reason: Pain, moderate (4-7) Last Admin: 11/19/16 21:17 Dose: 50 mg - Labs Labs: 11/20/16 09:25 11/20/16 09:25 PT 12.0 Seconds (9.9-11.8) H 10/20/16 09:29 INR 1.11 (0.93-1.08) H 10/20/16 09:29 APTT 27.8 Seconds (23.7-30.8) 10/20/16 09:29 Attending/Attestation - Attestation I have personally seen and examined this patient.: Yes I have fully participated in the care of the patient.: Yes I have reviewed all pertinent clinical information, including history, physical exam and plan: Yes Notes (Text): 11/20/16 15:02 Patient was seen and examined with medical assistant per diem. 51 year old female with PMH of CHF (EF 30%), hypertension, hypothyroidism, schizophrenia and bipolar disorder was initially with abdominal pain. She was found to have anasarca, hyponatremia due to CHF exacerbation.She was also found to have sepsis and was treated with IV antibiotics .She was requiring Dobutamine intermittently for CHF and for low blood pressure. Patient is off dobutamine since more than 48 hours.Blood pressure is soft, patient is tolerating low dose of metoprolol.Transaminase are mildly high today due to congested liver due to CHF.LFT are stable Hyponatremia is stable .Patient is asymptomatic. Nephrology follow up is appreciated . UTI on cefepime, Urine cultures are growing Pseudomonas and K.Pneumonia Hypomagnasemia, replacement has been given, we will follow up LABS. Prognosis is guarded. Management plan was discussed in detail with patient Education was provided. 11/20/16 15:04
[2016-11-21 06:41] LABS: HEMOGLOBIN 10.1 g/dL (12.0-16.0); MEAN CELL VOLUME 80.5 fl (80.0-105.0); MEAN CORPUSCULAR HEMOGLOBIN 26.3 pg (25.0-35.0); MEAN CORPUSCULAR HGB CONC 32.7 g/dl (31.0-37.0); MEAN PLATELET VOLUME 9.4 fl (7.0-11.0); PLATELET COUNT 515 10^3/uL (120.0-450.0); RBC 3.84 10^6/uL (3.5-6.1); RED CELL DISTRIBUTION WIDTH 23.2 % (11.5-14.5)
[2016-11-21 06:49] VITALS: O2SAT 97
[2016-11-21 06:53] LABS: ALB/GLOB RATIO 0.9 (1.1-1.8); ALBUMIN 3.1 g/dL (3.0-4.8); ALT/SGPT 47 U/L (7-56); AST/SGOT 31 U/L (15-39); BLOOD UREA NITROGEN 37 mg/dL (7-21); CALCIUM 8.6 mg/dL (8.4-10.5); GFR AFRICAN-AMERICAN > 60; GFR NON-AFRICAN AMERICAN > 60; MAGNESIUM 1.7 mg/dL (1.7-2.2)
[2016-11-21] MEDS: Insulin Lispro (humaLOG) LOW Coverage SC SCH ×3 (07:48→17:11)
[2016-11-21] MEDS: Insulin Lispro 1 UNITS/0.01 ML SC SCH ×3 (07:48→17:11)
[2016-11-21 08:06] LABS: BAND 2 % (0-2); BASOPHIL 1 % (0.0-1.0); EOSINOPHIL 1 % (0.0-3.0); LYMPHOCYTE 26 % (22.0-35.0); METAMYELOCYTE 1 %; MONOCYTE 9 % (1.0-6.0); NEUTROPHIL 60 % (50.0-70.0); NUCLEATED RED BLOOD CELL 3 %
[2016-11-21 08:08] LABS: ANISOCYTOSIS SLIGHT; HYPOCHROMIA 1+; MICROCYTOSIS SLIGHT; POIKILOCYTOSIS SLIGHT
[2016-11-21 08:09] LABS: ACANTHROCYTES SLIGHT; BURR CELLS SLIGHT; PLATELET ESTIMATE NORMAL (NORMAL)
[2016-11-21] MEDS: Insulin Detemir 100 units/ml Vial (Levemir) SC SCH (10:43)
[2016-11-21] MEDS: Cefepime 1gm in NS 100ml 1 GM/100 ML BAG IVPB SCH (10:43)
[2016-11-21] MEDS: Iron Complex Polysacch 150mg Cap PO SCH ×2 (10:44→10:52)
[2016-11-21] MEDS: Digoxin 125 mcg (0.125 mg) Tab PO SCH (14:43)
[2016-11-21 14:46] VITALS: PULSE 98
--- NOTE | 2016-11-21 15:59 | CP.PCM.PN ---
Subjective - Date & Time of Evaluation Date of Evaluation: 11/21/16 Time of Evaluation: 10:35 - Subjective Subjective: No dysuria, no fevers. Objective - Vital Signs/Intake and Output Vital Signs (last 24 hours): Temp Pulse Resp BP Pulse Ox 97.6 F 97 H 20 114/69 97 11/21/16 06:00 11/21/16 06:00 11/21/16 06:00 11/21/16 06:00 11/21/16 06:00 Intake and Output: 11/20/16 11/21/16 18:59 06:59 Intake Total 1380 Output Total 675 Balance 705 - Medications Medications: Current Medications Alprazolam (Xanax) 0.25 mg PO TID PRN; Protocol PRN Reason: Anxiety Stop: 11/25/16 14:01 Last Admin: 11/20/16 21:35 Dose: 0.25 mg Apixaban (Eliquis) 5 mg PO BID [facility] PRN Reason: Protocol Last Admin: 11/20/16 17:20 Dose: 5 mg Digoxin (Lanoxin) 0.125 mg PO 1400 [facility] Last Admin: 11/20/16 13:51 Dose: 0.125 mg Ferrous Sulfate (Feosol) 324 mg PO BID [facility] Last Admin: 11/20/16 17:20 Dose: 324 mg Cefepime HCl (Maxipime 1gm) 1 gm in 100 mls @ 100 mls/hr IVPB Q12 [facility] PRN Reason: Protocol Last Admin: 11/20/16 21:36 Dose: 100 mls/hr Dobutamine HCl/Dextrose (Dobutamine/Dextrose 5% 500mg/250ml) 500 mg in 250 mls @ 6.818 mls/hr IV .Q24H PRN; Protocol; 3 MCG/KG/MIN PRN Reason: TITRATE PER PROTOCOL Insulin Detemir (Levemir) 20 unit SC DAILY [facility] Last Admin: 11/20/16 11:20 Dose: 20 unit Insulin Human Lispro (Humalog) 5 units SC ACHS [facility] Last Admin: 11/20/16 22:30 Dose: 5 units Insulin Human Lispro (Humalog Low) 0 units SC ACHS [facility] PRN Reason: Protocol Last Admin: 11/20/16 22:30 Dose: Not Given Levothyroxine Sodium (Synthroid) 125 mcg PO 0600 [facility] Last Admin: 11/20/16 05:07 Dose: 125 mcg Losartan Potassium (Cozaar) 12.5 mg PO DAILY [facility] Last Admin: 11/17/16 11:17 Dose: Not Given Metoprolol Tartrate (Lopressor) 12.5 mg PO BID [facility] Last Admin: 11/20/16 17:21 Dose: 12.5 mg Polysaccharide Iron Complex (Ferrex-150) 150 mg PO DAILY [facility] Last Admin: 11/20/16 11:16 Dose: Not Given Spironolactone (Aldactone) 25 mg PO BID [facility] Last Admin: 11/20/16 17:20 Dose: 25 mg Tolvaptan (Samsca) 30 mg PO DAILY [facility] Stop: 11/22/16 19:59 Last Admin: 11/19/16 09:44 Dose: 30 mg Torsemide (Demadex) 20 mg PO Q12H [facility] Last Admin: 11/20/16 18:07 Dose: 20 mg Tramadol HCl (Ultram) 50 mg PO TID PRN PRN Reason: Pain, moderate (4-7) Last Admin: 11/20/16 20:21 Dose: 50 mg - Labs Labs: 11/21/16 06:20 11/20/16 09:25 PT 12.0 Seconds (9.9-11.8) H 10/20/16 09:29 INR 1.11 (0.93-1.08) H 10/20/16 09:29 APTT 27.8 Seconds (23.7-30.8) 10/20/16 09:29 - Constitutional Appears: Non-toxic, No Acute Distress - Head Exam Head Exam: NORMAL INSPECTION - ENT Exam ENT Exam: Mucous Membranes Moist - Neck Exam Neck Exam: absent: Meningismus - Respiratory Exam Respiratory Exam: Decreased Breath Sounds - Cardiovascular Exam Cardiovascular Exam: +S1, +S2 - GI/Abdominal Exam GI & Abdominal Exam: Soft. absent: Tenderness Assessment and Plan - Assessment and Plan (Free Text) Plan: Assessment consider lower UTI with Klebsiella and Pseudomonas in a patient with a Witt catheter S/P severe sepsis S/P hypoxic ventilator-dependent respiratory failure probably due to bilateral lower lobe healthcare-associated pneumonia with possible gram positive cocci, gram negative bacilli and/or atypical organisms, with associated hyperglycemic, hyperosmolar state with also acute pancreatitis - clinically improved and continues to be off antibiotics - still with leukocytosis, but probably reactive VRE in the urine, probably asymptomatic bacteriuria, continues to be asymptomatic chronic congestive heart failure due to cardiomyopathy elevated Alk phos and transaminases in a patient with pancreatitis as well as hepatic congestion history of healthcare-associated pneumonia, right middle lobe history of bilateral healthcare-associated pneumonia in this patient chronic heart failure S/P acute cholecystitis, S/P laparoscopic cholecystectomy CAD with chronic CHF DM HTN history of migraines bipolar disorder Plan continue Cefepime day 5; Witt catheter has been removed - complete 7 days of therapy will continue to monitor clinically Discussed with Dr. Ashley
--- NOTE | 2016-11-21 16:13 | CP.PCM.PN ---
Subjective - Date & Time of Evaluation Date of Evaluation: 11/21/16 Time of Evaluation: 07:35 - Subjective Subjective: Gin Pires DO, PGY-1, Internal Medicine, Hospitalist Service Patient seen and examined at bedside. Per nursing no acute events overnight. BPs stable off dobutamine. Patient is doing well, no complaints at this time. Denies headaches, dizziness, cp, sob, palpitations, abdominal pain, urinary symptoms, changes in bowel habits. Objective - Vital Signs/Intake and Output Vital Signs (last 24 hours): Temp Pulse Resp BP Pulse Ox 96.6 F L 101 H 21 98/64 L 97 11/21/16 12:00 11/21/16 12:00 11/21/16 12:00 11/21/16 12:00 11/21/16 06:00 Intake and Output: 11/21/16 11/21/16 06:59 18:59 Intake Total 1380 900 Output Total 675 800 Balance 705 100 - Medications Medications: Current Medications Alprazolam (Xanax) 0.25 mg PO TID PRN; Protocol PRN Reason: Anxiety Stop: 11/25/16 14:01 Last Admin: 11/20/16 21:35 Dose: 0.25 mg Apixaban (Eliquis) 5 mg PO BID [facility] PRN Reason: Protocol Last Admin: 11/21/16 10:44 Dose: 5 mg Digoxin (Lanoxin) 0.125 mg PO 1400 [facility] Last Admin: 11/21/16 14:43 Dose: 0.125 mg Ferrous Sulfate (Feosol) 324 mg PO BID [facility] Last Admin: 11/21/16 10:52 Dose: Not Given Cefepime HCl (Maxipime 1gm) 1 gm in 100 mls @ 100 mls/hr IVPB Q12 [facility] PRN Reason: Protocol Last Admin: 11/21/16 10:43 Dose: 100 mls/hr Dobutamine HCl/Dextrose (Dobutamine/Dextrose 5% 500mg/250ml) 500 mg in 250 mls @ 6.818 mls/hr IV .Q24H PRN; Protocol; 3 MCG/KG/MIN PRN Reason: TITRATE PER PROTOCOL Insulin Detemir (Levemir) 20 unit SC DAILY [facility] Last Admin: 11/21/16 10:43 Dose: 20 unit Insulin Human Lispro (Humalog) 5 units SC ACHS [facility] Last Admin: 11/21/16 12:14 Dose: 5 units Insulin Human Lispro (Humalog Low) 0 units SC [facility] PRN Reason: Protocol Last Admin: 11/21/16 12:15 Dose: 4 units Levothyroxine Sodium (Synthroid) 125 mcg PO 0600 [facility] Last Admin: 11/20/16 05:07 Dose: 125 mcg Losartan Potassium (Cozaar) 12.5 mg PO DAILY [facility] Last Admin: 11/21/16 10:44 Dose: 12.5 mg Metoprolol Tartrate (Lopressor) 12.5 mg PO BID [facility] Last Admin: 11/21/16 10:44 Dose: 12.5 mg Polysaccharide Iron Complex (Ferrex-150) 150 mg PO DAILY [facility] Last Admin: 11/21/16 10:52 Dose: Not Given Spironolactone (Aldactone) 25 mg PO BID [facility] Last Admin: 11/21/16 10:43 Dose: 25 mg Tolvaptan (Samsca) 30 mg PO DAILY [facility] Stop: 11/22/16 19:59 Last Admin: 11/21/16 11:25 Dose: 30 mg Torsemide (Demadex) 20 mg PO Q12H [facility] Last Admin: 11/21/16 07:51 Dose: 20 mg Tramadol HCl (Ultram) 50 mg PO TID PRN PRN Reason: Pain, moderate (4-7) Last Admin: 11/20/16 20:21 Dose: 50 mg - Labs Labs: 11/21/16 06:20 11/21/16 06:20 PT 12.0 Seconds (9.9-11.8) H 10/20/16 09:29 INR 1.11 (0.93-1.08) H 10/20/16 09:29 APTT 27.8 Seconds (23.7-30.8) 10/20/16 09:29 - Constitutional Appears: Non-toxic, No Acute Distress - Head Exam Head Exam: ATRAUMATIC, NORMAL INSPECTION - Eye Exam Eye Exam: EOMI, Normal appearance Pupil Exam: NORMAL ACCOMODATION - ENT Exam ENT Exam: Mucous Membranes Moist - Neck Exam Neck Exam: Full ROM - Respiratory Exam Respiratory Exam: Decreased Breath Sounds, NORMAL BREATHING PATTERN. absent: Rales, Rhonchi, Wheezes - Cardiovascular Exam Cardiovascular Exam: Tachycardia, +S1, +S2 - GI/Abdominal Exam GI & Abdominal Exam: Distended, Soft, Normal Bowel Sounds. absent: Guarding, Rigid, Tenderness - Extremities Exam Extremities Exam: Full ROM Additional comments: B/L LE edema slightly worsening - Back Exam Back Exam: NORMAL INSPECTION - Neurological Exam Neurological Exam: Alert, Awake, Oriented x3 - Psychiatric Exam Psychiatric exam: Normal Affect, Normal Mood - Skin Skin Exam: Normal Color, Warm Assessment and Plan - Assessment and Plan (Free Text) Assessment: 51 y/o female with PMHx of DM2, CHF (EF 30% in 10/2016), HTN, chronic pulmonary effusion, HTN, DVT, PE, hypothyroidism, PSH of lap mitchell in 05/2016 and psych hx of schizophrenia and Bipolar disorder presented to the ED with complaints of abdominal pain. ECHO (10/18): EF 30% Plan: 1. Septic shock (tachycardia), likely a/w cardiogenic cause - Septic shock resolved - Patient tachycardic, Continue Metoprolol 12.5mg BID with BP parameters - Dobutamine held for > 72 hours, BPs stable - Continue Digoxin, Cozaar - Cardiology on consult, will f/u recommendations - Palliative care consulted to discuss goals of care - RIJ central line removed, hemostasis achieved - Patient is currently medically optimized, awaiting placement for [facility], will f/ u with social work 2. Abdominal pain likely due to edema/anasarca and CHF state, improving - Pain control - Tramadol prn - Continue Fluid restriction - Daily weights unreliable - Monitor strict I/Os - GI consulted, recs appreciated 3. Hyponatremia - F/U labs - Continue Aldactone 25mg BID - Continue Tolvaptan - Monitor CMPs - Nephrology on consult, f/u recommendations 4. 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 Metabolic Alkalosis, resolved - Continue Torsamide 20mg Q12H - Nephro on consult, f/u recommendations 6. Anemia (multifatorial) likely 2/2 chronic disease and Iron deficiency - F/U labs - S/P 1 unit PRBCs on 11/08/16 - Transfuse if hgb < 8.0 - s/p IV iron x 10 days - Per GI, no plan for endoscopy/colonoscopy at this time 7. Leukocytosis - Repeat Urine Cx - Pseudomonas and Klebsiella - On Cefepime day 6 - Afebrile, f/u labs - ID consulted, recs appreciated 8. Hypotension - BPs currently stable off the dobtuamine - Abdominal dopplers: patent portal vein with hepatopetal flow - Will f/u with case management and Social work in regards to placement 9. OLLIE likely due to shock (prerenal in nature due to low intravascular volume) - Cr improving - Nephro on consult, f/u recommendations 10. Transaminitis - Likely 2/2 shocked liver - Avoid hepatic toxins - Continue to monitor 11. Hx UTI 10/19 grew VRE - Urine cx - Klebsiella, pseudomonas - Continue Cefepime (day 6) - Nystatin powder/ointment and Bacitracin for jr-vaginal yeast infection - ID consulted, recs appreciated 12. DM2, HONK resolved - Continue Levemir to 20U - c/w Lispro 5u, and ISS - Accuchecks QACHS 13. Hypothyroid - Continue Synthroid 125 mcg PO 14. Hypokalemia, resolved - F/U am CMP 15. Hypomagnesemia - Continue to monitor 16. Hx of Bipolar d/o, schizophrenia - Xanax 0.25 TID PRN for anxiety - F/U psych recommendations 17. GI/DVT ppx - Eliquis 5mg BID (Hx of DVT/PE) - Protonix 40mg PO daily
[2016-11-21 18:34] VITALS: BP 110/70; PULSE 113
[2016-11-21 18:57] VITALS: RESP 20; TEMP 97.2
--- NOTE | 2016-11-21 20:44 | CP.PCM.PN ---
Objective - Vital Signs/Intake and Output Vital Signs (last 24 hours): Temp Pulse Resp BP Pulse Ox 97.2 F L 113 H 20 110/70 97 11/21/16 18:00 11/21/16 18:32 11/21/16 18:00 11/21/16 18:32 11/21/16 06:00 Intake and Output: 11/21/16 11/22/16 18:59 06:59 Intake Total 900 Output Total 800 Balance 100 - Labs Labs: 11/21/16 06:20 11/21/16 06:20 PT 12.0 Seconds (9.9-11.8) H 10/20/16 09:29 INR 1.11 (0.93-1.08) H 10/20/16 09:29 APTT 27.8 Seconds (23.7-30.8) 10/20/16 09:29 Assessment and Plan (1) Shock Status: Acute (2) Acute renal failure Status: Acute (3) Hyponatremia Status: Acute (4) CHF (congestive heart failure) Status: Acute (5) Anemia Status: Acute (6) Metabolic alkalosis Status: Acute
--- NOTE | 2016-11-22 06:26 | CP.PCM.DIS ---
Provider - Provider Date of Admission: 10/13/16 14:18 Attending physician: Mau Ashley MD Primary care physician: Richardson Roman MD Consults: Nephro: [facility] Cardiology: [place] ICU: GI: [facility] Course - Lab Results Lab Results: Micro Results 11/16/16 16:39 Blood Blood Culture - Final NO GROWTH AFTER 5 DAYS 11/16/16 16:39 Blood Gram Stain - Final TEST NOT PERFORMED 10/14/16 14:15 Other: Please Indicate Mycobacterial Culture - Preliminary 11/15/16 22:30 Urine,Witt Urine Culture - Final Klebsiella Pneumoniae Ssp Pneu Pseudomonas Aeruginosa 11/02/16 05:45 Blood Blood Culture - Final NO GROWTH AFTER 5 DAYS 11/02/16 05:45 Blood Gram Stain - Final TEST NOT PERFORMED 11/02/16 05:15 Blood Blood Culture - Final NO GROWTH AFTER 5 DAYS 11/02/16 05:15 Blood Gram Stain - Final TEST NOT PERFORMED 10/31/16 13:20 Blood Blood Culture - Final NO GROWTH AFTER 5 DAYS 10/31/16 13:20 Blood Gram Stain - Final TEST NOT PERFORMED 11/01/16 18:13 Urine Urine Culture - Final No Growth (<1,000 CFU/ML) 10/31/16 17:00 Urine Urine Culture - Final 10-50,000 CFU/ML. MULTIPLE SPECIES. PROBABLE CONTAMINATION. 10/31/16 21:35 Urine,Witt Urine Culture - Final No Growth (<1,000 CFU/ML) 10/31/16 16:00 Nose MRSA Culture (Admit) - Final MRSA NOT DETECTED 10/28/16 08:00 Urine,Clean Catch Urine Culture - Final Yeast Species 10/24/16 12:33 Stool C. difficile Antigen & Toxin A,B (M - Final 10/19/16 16:57 Blood Blood Culture - Final NO GROWTH AFTER 5 DAYS 10/19/16 16:57 Blood Gram Stain - Final TEST NOT PERFORMED 10/20/16 15:30 Stool C. difficile Antigen & Toxin A,B (M - Final 10/19/16 16:35 Urine,Clean Catch Urine Culture - Final Vancomycin Resistant E.faecium 10/13/16 15:30 Blood Blood Culture - Final NO GROWTH AFTER 5 DAYS 10/13/16 15:30 Blood Gram Stain - Final TEST NOT PERFORMED 10/13/16 15:00 Blood Blood Culture - Final NO GROWTH AFTER 5 DAYS 10/13/16 15:00 Blood Gram Stain - Final TEST NOT PERFORMED 10/15/16 14:06 Sputum Gram Stain - Final 10/15/16 14:06 Sputum Sputum Culture - Final Yeast Species 10/13/16 15:47 Urine,Clean Catch Urine Culture - Final No Growth (<1,000 CFU/ML) 10/13/16 15:15 Nose MRSA Culture (Admit) - Final MRSA NOT DETECTED Most Recent Lab Values WBC 13.0 10^3/ul (4.5-11.0) H 11/21/16 06:20 RBC 3.84 10^6/uL (3.5-6.1) 11/21/16 06:20 Hgb 10.1 g/dL (12.0-16.0) L 11/21/16 06:20 Hct 30.9 % (36.0-48.0) L 11/21/16 06:20 MCV 80.5 fl (80.0-105.0) 11/21/16 06:20 MCH 26.3 pg (25.0-35.0) 11/21/16 06:20 MCHC 32.7 g/dl (31.0-37.0) 11/21/16 06:20 RDW 23.2 % (11.5-14.5) H 11/21/16 06:20 Plt Count 515 10^3/uL (120.0-450.0) H 11/21/16 06:20 MPV 9.4 fl (7.0-11.0) 11/21/16 06:20 Gran % 66.8 % (50.0-68.0) 11/20/16 09:25 Lymph % (Auto) 24.3 % (22.0-35.0) 11/20/16 09:25 Taylor % (Auto) 6.4 % (1.0-6.0) H 11/20/16 09:25 Eos % (Auto) 1.7 % (1.5-5.0) 11/20/16 09:25 Baso % (Auto) 0.8 % (0.0-3.0) 11/20/16 09:25 Gran # 8.84 (1.4-6.5) H 11/20/16 09:25 Lymph # 3.2 (1.2-3.4) 11/20/16 09:25 Taylor # 0.9 (0.1-0.6) H 11/20/16 09:25 Eos # 0.2 (0.0-0.7) 11/20/16 09:25 Baso # 0.10 K/mm3 (0.0-2.0) 11/20/16 09:25 Corrected WBC (Man) 10.3 K/mm3 (4.5-11.0) 11/07/16 06:20 Neutrophils % (Manual) 60 % (50.0-70.0) 11/21/16 06:20 Band Neutrophils % 2 % (0-2) 11/21/16 06:20 Lymphocytes % (Manual) 26 % (22.0-35.0) 11/21/16 06:20 Atypical Lymphs % 1 % (0.0-0.0) H 10/21/16 07:00 Monocytes % (Manual) 9 % (1.0-6.0) H 11/21/16 06:20 Eosinophils % (Manual) 1 % (0.0-3.0) 11/21/16 06:20 Basophils % (Manual) 1 % (0.0-1.0) 11/21/16 06:20 Metamyelocytes % 1 % 11/21/16 06:20 Myelocytes % 2 % 11/19/16 05:31 Nucleated RBC % 3 % 11/21/16 06:20 Toxic Granulation 2+ 10/16/16 05:30 Platelet Evaluation Normal (NORMAL) 11/21/16 06:20 Large Platelets Present 11/04/16 06:01 Polychromasia Slight 10/25/16 17:30 Hypochromasia 1+ 11/21/16 06:20 Poikilocytosis (manual Slight 11/21/16 06:20 Anisocytosis (manual) Slight 11/21/16 06:20 Microcytosis (manual) Slight 11/21/16 06:20 Macrocytosis (manual) 1+ 11/04/16 06:01 Target Cells Slight 11/07/16 06:20 Tear Drop Cells Slight 11/07/16 06:20 Ovalocytes Slight 11/07/16 06:20 Pardeep Cells Slight 11/21/16 06:20 Acanthocytes (Spur) Slight 11/21/16 06:20 Rouleaux 2+ 10/16/16 05:30 PT 12.0 Seconds (9.9-11.8) H 10/20/16 09:29 INR 1.11 (0.93-1.08) H 10/20/16 09:29 APTT 27.8 Seconds (23.7-30.8) 10/20/16 09:29 pCO2 29 mm/Hg (35-45) L 11/03/16 14:30 pO2 104.0 mm/Hg (80-100) H 11/03/16 14:30 HCO3 18.0 mmol/L (21-28) L 11/03/16 14:30 ABG pH 7.40 (7.35-7.45) 11/03/16 14:30 ABG Total CO2 18.9 mmol.L (22-28) L 11/03/16 14:30 ABG O2 Saturation 99.0 % (95-98) H 11/03/16 14:30 ABG O2 Content 12.7 ML/dl (15-23) L 11/03/16 14:30 ABG Base Excess -5.9 mmol/L (-2.0-3.0) L 11/03/16 14:30 ABG Hemoglobin 9.2 g/dL (11.7-17.4) L 11/03/16 14:30 ABG Carboxyhemoglobin 1.7 % (0.5-1.5) H 11/03/16 14:30 POC ABG HHb (Measured) 1.0 % (0-5) 11/03/16 14:30 ABG Methemoglobin 0.5 % (0.0-3.0) 11/03/16 14:30 ABG O2 Capacity 12.8 mL/dl (16-24) L 11/03/16 14:30 ABG Potassium 4.6 mmol/L (3.6-5.2) 11/03/16 05:20 VBG pH 7.20 (7.32-7.43) L 11/02/16 06:20 VBG pCO2 55.0 (40-60) 11/02/16 06:20 VBG HCO3 21.5 mmol/l (21-28) 11/02/16 06:20 VBG Total CO2 23.2 mmol.L (22-28) 11/02/16 06:20 VBG O2 Sat (Calc) 71.0 % (40-65) H 11/02/16 06:20 VBG Base Excess -7.1 mmol/L (0.0-2.0) L 11/02/16 06:20 VBG Potassium 5.9 mmol/L (3.6-5.2) H 11/02/16 06:20 Hgb O2 Saturation 96.7 % (95.0-98.0) 11/03/16 14:30 Sodium 124.0 mmol/L (132-148) L 11/03/16 05:20 Chloride 92.0 mmol/L (98-107) L 11/03/16 05:20 Glucose 173 mg/dl (65-105) H 11/03/16 05:20 Lactate 2.3 mmol/L (0.7-2.1) H 11/03/16 05:20 Mechanical Rate 25 10/14/16 08:30 FiO2 36.0 % 11/03/16 14:30 Tidal Volume 400 10/14/16 08:30 PEEP 5 10/14/16 08:30 Sodium 132 mmol/L (132-148) 11/21/16 06:20 Potassium 3.6 mmol/L (3.6-5.0) 11/21/16 06:20 Chloride 96 mmol/L (95-110) 11/21/16 06:20 Carbon Dioxide 26 mmol/L (21-33) 11/21/16 06:20 Anion Gap 14 (10-20) 11/21/16 06:20 BUN 37 mg/dL (7-21) H 11/21/16 06:20 Creatinine 0.9 mg/dL (0.5-1.4) 11/21/16 06:20 Est GFR ( Amer) > 60 11/21/16 06:20 Est GFR (Non-Af Amer) > 60 11/21/16 06:20 POC Glucose (mg/dL) 245 mg/dL (65-110) H 11/21/16 16:26 Random Glucose 121 mg/dL (70-110) H 11/21/16 06:20 Serum Osmolality 292 mosm/kg (271-296) 10/21/16 20:25 Lactic Acid 5.5 mmol/L (0.7-2.1) H* 10/31/16 13:20 Calcium 8.6 mg/dL (8.4-10.5) 11/21/16 06:20 Phosphorus 3.5 mg/dL (2.5-4.5) 11/21/16 06:20 Magnesium 1.7 mg/dL (1.7-2.2) 11/21/16 06:20 Iron 10 ug/dL (45-180) L 11/07/16 18:30 TIBC 384 ug/dL (265-497) 11/07/16 18:30 % Saturation 3 % (20-55) L 11/07/16 18:30 Ferritin 57.6 ng/mL 11/07/16 18:30 Total Bilirubin 0.5 mg/dL (0.2-1.3) 11/21/16 06:20 GGT 358 U/L (8-78) H 10/20/16 09:29 AST 31 U/L (15-39) 11/21/16 06:20 ALT 47 U/L (7-56) 11/21/16 06:20 Alkaline Phosphatase 311 U/L (38-133) H 11/21/16 06:20 Lactate Dehydrogenase 558 U/L (333-699) 10/13/16 13:20 Total Creatine Kinase 34 U/L (35-230) L 10/13/16 13:20 Troponin I < 0.01 ng/mL 10/21/16 01:25 C-React Prot High Sens > 15.00 mg/L (1.00-3.00) H 10/14/16 07:50 NT-Pro-B Natriuret Pep 70291 pg/mL (0-450) H 10/21/16 01:25 Total Protein 6.6 g/dL (5.8-8.3) 11/21/16 06:20 Albumin 3.1 g/dL (3.0-4.8) 11/21/16 06:20 Globulin 3.5 gm/dL 11/21/16 06:20 Albumin/Globulin Ratio 0.9 (1.1-1.8) L 11/21/16 06:20 Amylase 44 U/L (35-125) 10/13/16 13:20 Lipase 141 U/L (23-300) 10/20/16 09:29 Procalcitonin 0.80 NG/ML (0.19-0.49) H 11/04/16 06:00 TSH 3rd Generation 12.90 mIU/mL (0.46-4.68) H 10/22/16 13:02 Cortisol AM Sample 46.4 ug/dL (4.46-22.7) H 10/22/16 13:02 Plasma Cortisol PM 18.4 ug/dL (1.7-14.1) H 11/16/16 16:39 Arterial Blood Potassium 4.6 mmol/L (3.6-5.2) 11/03/16 05:20 Venous Blood Potassium 5.9 mmol/L (3.6-5.2) H 11/02/16 06:20 Urine Color Yellow (YELLOW) 11/17/16 09:00 Urine Appearance Clear (CLEAR) 11/17/16 09:00 Urine pH 6.0 (4.7-8.0) 11/17/16 09:00 Ur Specific [place] <= 1.005 (1.005-1.035) 11/17/16 09:00 Urine Protein Negative mg/dL (<30 mg/dL) 11/17/16 09:00 Urine Glucose (UA) Negative mg/dL (NEGATIVE) 11/17/16 09:00 Urine Ketones Negative mg/dL (NEGATIVE) 11/17/16 09:00 Urine Blood Trace-intact (NEGATIVE) H 11/17/16 09:00 Urine Nitrate Negative (NEGATIVE) 11/17/16 09:00 Urine Bilirubin Negative (NEGATIVE) 11/17/16 09:00 Urine Urobilinogen 0.2 E.U./dL (<1 E.U./dL) 11/17/16 09:00 Ur Leukocyte Esterase Moderate Jason/uL (NEGATIVE) H 11/17/16 09:00 Urine RBC 0 - 2 /hpf (0-2) 11/17/16 09:00 Urine WBC 25 - 30 /hpf (0-6) 11/17/16 09:00 Ur Epithelial Cells 3 - 4 /hpf (0-5) 11/17/16 09:00 Urine Bacteria Few (NEG) 11/17/16 09:00 Hyaline Casts 0 - 2 /hpf 11/01/16 18:13 Urine Other Uyeast 10/19/16 16:35 Urine Osmolality 203 mosm/kg (50-645) 11/06/16 12:36 Ur Random Creatinine 48 mg/dL 11/04/16 17:30 U Random Total Protein 497 mg/g creat (21-161) H 11/06/16 13:24 Ur Random Sodium 11 meq/L 10/31/16 21:40 Ur Random Potassium 13.8 meq/L 10/28/16 08:00 Ur Random Urea Nitrogn 382 mg/dL 10/31/16 21:40 Urine Microalbumin 51.5 mg/L (0.0-16.6) H 11/04/16 17:30 Fluid Source Pleural 10/14/16 14:15 Fluid Appearance Bloody (CLEAR) 10/14/16 14:15 Fluid WBC 270.0 /uL (0.0-300.0) 10/14/16 14:15 Fluid RBC 58953.0 /uL (0.0-0.0) H 10/14/16 14:15 Fluid Tot Cell Count 100 (0-0) H 10/14/16 14:15 Fluid Neutrophils 18.5 % (0-0) H 10/14/16 14:15 Fluid Lymphocytes 81.5 % (0-0) H 10/14/16 14:15 Fld Monocyte/Macrophag TEST NOT PERFORMED 10/14/16 14:15 Fluid Comment Cloudy 10/14/16 14:15 Pleural pH 8.0 10/14/16 14:15 Pleural Total Protein <3.0 g/dL 10/14/16 14:15 Pleural LDH 64 U/L 10/14/16 14:15 Pleural Glucose 320 mg/dL 10/14/16 14:15 Digoxin 0.7 ng/mL (0.8-2.0) L 11/12/16 15:35 Anti-Mitochondrial Ab Negative (Negative) 10/22/16 13:02 Hepatitis A IgM Ab Negative (NEGATIVE) 10/18/16 07:00 Hep Bs Antigen Negative (NEGATIVE) 10/18/16 07:00 Hep B Core IgM Ab Negative (NEGATIVE) 10/18/16 07:00 Hepatitis C Antibody Negative (NEGATIVE) 10/18/16 07:00 Ur L.pneumophila Ag Negative (NEGATIVE) 10/14/16 16:00 Aspergillus Antigen Not detected (Not Detected) 10/31/16 16:13 Aspergillus Index Value 0.18 (<0.50) 10/31/16 16:13 Beta-(1,3)-D-Glucan 409 pg/mL H 10/31/16 16:13 B-(1,3)-D-Glucan Intrp Positive H 10/31/16 16:13 Blood Type A POSITIVE 11/08/16 15:40 Antibody Screen Negative 11/08/16 15:40 Crossmatch See Detail 11/08/16 15:40 BBK History Checked Patient has bt 11/08/16 15:40 Discharge Exam - Head Exam Head Exam: ATRAUMATIC, NORMAL INSPECTION Discharge Plan - Discharge Medications Prescriptions: Ciprofloxacin [Cipro] 500 mg PO BID #10 tab - Follow Up Plan Condition: CRITICAL Disposition: TRANSF TO SNF Instructions: Heart Healthy Diet (DC), Diabetic Ketoacidosis (DC), Diabetes Mellitus Type 1 in Adults (DC), Fall Prevention for Older Adults (GEN), Acute Abdominal Pain (DC), Hypotension (DC) Additional Instructions: 1. Please follow up with your billet assembler, Dr. Kinney, within two weeks of your discharge date. 2. Please follow up with your house decorator, Dr. French, within two weeks of your discharge date. 3. Please take all medications as they are prescribed as well as take daily weights for trending. You will need to monitor all of your intake and output as well as be placed on a fluid restriction of 1500ml per day. 4. If your symptoms worsen or persist, please seek emergency medical attention. Referrals: Cesar Kinney MD [Staff Provider] - Akash French MD [Staff Provider] - Richardson Roman MD [Primary Care Provider] -
== END 2016-11-21 19:32 | DRG 584 ==
LOC: ED 12:20 → ERH 14:18 → CCU 15:03 → 3RSO 10-17 16:04 → 2RNO 10-19 18:18 → CCU 10-31 15:21 → 2RNO 11-03 19:24
PROVIDERS: ADMIT Internal Medicine; ATTEND Internal Medicine
PROC: 5A1945Z Respiratory Ventilation, 24-96 Consecutive Hours (ICD-10-PCS; 2016-10-13)
PROC: 0BH17EZ Insertion of Endotracheal Airway into Trachea, Via Natural or Artificial Opening (ICD-10-PCS; 2016-10-13)
PROC: 0W993ZX Drainage of Right Pleural Cavity, Percutaneous Approach, Diagnostic (ICD-10-PCS; 2016-10-14)
PROC: 3E03328 Introduction of Oxazolidinones into Peripheral Vein, Percutaneous Approach (ICD-10-PCS; principal; 2016-10-21)
PROC: B543ZZA Ultrasonography of Right Jugular Veins, Guidance (ICD-10-PCS; 2016-10-25)
PROC: 06H033Z Insertion of Infusion Device into Inferior Vena Cava, Percutaneous Approach (ICD-10-PCS; 2016-10-25)
PROC: B54NZZA Ultrasonography of Left Upper Extremity Veins, Guidance (ICD-10-PCS; 2016-10-25)
PROC: 0BH18EZ Insertion of Endotracheal Airway into Trachea, Via Natural or Artificial Opening Endoscopic (ICD-10-PCS; 2016-10-31)
PROC: 05HM33Z Insertion of Infusion Device into Right Internal Jugular Vein, Percutaneous Approach (ICD-10-PCS; 2016-10-31)
PROC: 3E043XZ Introduction of Vasopressor into Central Vein, Percutaneous Approach (ICD-10-PCS; 2016-10-31)
PROC: 30233N1 Transfusion of Nonautologous Red Blood Cells into Peripheral Vein, Percutaneous Approach (ICD-10-PCS; 2016-11-08)
DX: A41.9 Sepsis, unspecified organism (principal); R65.21 Severe sepsis with septic shock; J96.01 Acute respiratory failure with hypoxia; K72.00 Acute and subacute hepatic failure without coma; N17.0 Acute kidney failure with tubular necrosis; J18.9 Pneumonia, unspecified organism; R57.0 Cardiogenic shock; I50.23 Acute on chronic systolic (congestive) heart failure; K85.90 Acute pancreatitis without necrosis or infection, unspecified; E13.10 Other specified diabetes mellitus with ketoacidosis without coma; I13.0 Hypertensive heart and chronic kidney disease with heart failure and stage 1 through stage 4 chronic kidney disease, or unspecified chronic kidney disease; J90 Pleural effusion, not elsewhere classified; I42.0 Dilated cardiomyopathy; E87.1 Hypo-osmolality and hyponatremia; F20.9 Schizophrenia, unspecified; N18.9 Chronic kidney disease, unspecified; J44.0 Chronic obstructive pulmonary disease with (acute) lower respiratory infection; N39.0 Urinary tract infection, site not specified; E87.5 Hyperkalemia; Z99.11 Dependence on respirator [ventilator] status; E87.6 Hypokalemia; C85.91 Non-Hodgkin lymphoma, unspecified, lymph nodes of head, face, and neck; I08.1 Rheumatic disorders of both mitral and tricuspid valves; E87.3 Alkalosis; B96.5 Pseudomonas (aeruginosa) (mallei) (pseudomallei) as the cause of diseases classified elsewhere; B96.1 Klebsiella pneumoniae [K. pneumoniae] as the cause of diseases classified elsewhere; I82.A21 Chronic embolism and thrombosis of right axillary vein; I82.B21 Chronic embolism and thrombosis of right subclavian vein; F31.9 Bipolar disorder, unspecified; E03.9 Hypothyroidism, unspecified; K52.9 Noninfective gastroenteritis and colitis, unspecified; I25.10 Atherosclerotic heart disease of native coronary artery without angina pectoris; G43.909 Migraine, unspecified, not intractable, without status migrainosus; Z16.21 Resistance to vancomycin; I27.2 Other secondary pulmonary hypertension; D50.9 Iron deficiency anemia, unspecified; D63.8 Anemia in other chronic diseases classified elsewhere; E83.42 Hypomagnesemia; E86.0 Dehydration; E86.1 Hypovolemia; F41.9 Anxiety disorder, unspecified; E88.09 Other disorders of plasma-protein metabolism, not elsewhere classified; B36.8 Other specified superficial mycoses; F32.9 Major depressive disorder, single episode, unspecified; R31.9 Hematuria, unspecified; Z87.891 Personal history of nicotine dependence; Z79.4 Long term (current) use of insulin; Z86.711 Personal history of pulmonary embolism; Z78.1 Physical restraint status; Z79.02 Long term (current) use of antithrombotics/antiplatelets; Z92.21 Personal history of antineoplastic chemotherapy

== ENCOUNTER 2016-12-13 15:58 | Inpatient (IN) | payer MEDICAID ==
--- NOTE | 2016-12-13 16:22 | ED PDOC ---
Arrival/HPI - General Historian: Patient - History of Present Illness Time/Duration: < week Quality: Aching Context: Home - General Time Seen by Provider: 12/13/16 16:06 - History of Present Illness Narrative History of Present Illness (Text): 12/13/16 16:15 This is a 51 year old female, whose past medical history includes diabetes, hypertension, hypothyroidism, COPD, CHF on lasix, schizophrenia and bipolar disorder, presents to the emergency department complaining of b/l lower extremities are swollen, redness, and painful x 5 days. Patient stated she has been at a rehab. institution. She stated leg swelling has worsen. Patient denies sob, cp, abdominal pain, reddy, or dizziness. Patient stated she is not able to ambulate due to leg pain. (Lucinda Pearson) Past Medical History - Provider Review Nursing Documentation Reviewed: Yes - Past History Past History: No Previous - Infectious Disease Hx of Infectious Diseases: None - Tetanus Immunization Tetanus Immunization: Unknown - Cardiac Hx Cardiac Disorders: Yes Hx Congestive Heart Failure: Yes Hx Hypertension: Yes - Pulmonary Hx Chronic Obstructive Pulmonary Disease (COPD): Yes - Neurological Hx Neurological Disorder: No Hx Seizures: No - HEENT Hx HEENT Disorder: No - Renal Hx Renal Disorder: No - Endocrine/Metabolic Hx Diabetes Mellitus Type 2: Yes Hx Hypothyroidism: Yes - Hematological/Oncological Hx Blood Disorders: No - Integumentary Hx Dermatological Disorder: No Hx Basal Cell Carcinoma: No Hx Eczema: No Hx Melanoma: No Hx Psoriasis: No Hx Squamous Cell Carcinoma: No - Musculoskeletal/Rheumatological Hx Falls: No - Gastrointestinal Hx Gastrointestinal Disorders: Yes Hx Crohn's Disease: No Hx Diverticulitis: Yes Hx Gastroesophageal Reflux: Yes - Genitourinary/Gynecological Hx Genitourinary Disorders: No Hx Sexually Transmitted Diseases: No - Psychiatric Hx Anxiety: Yes Hx Bipolar Disorder: Yes Hx Depression: Yes Hx Substance Use: No - Past Surgical History Past Surgical History: No Previous - Surgical History Hx Appendectomy: No Hx Cholecystectomy: Yes Hx Coronary Stent: No Other/Comment: neck mass excision - Anesthesia Hx Anesthesia: Yes Hx Anesthesia Reactions: No Hx Malignant Hyperthermia: No - Suicidal Assessment Feels Threatened In Home Enviroment: No Family/Social History - Physician Review Nursing Documentation Reviewed: Yes Family/Social History: Other (non-contributory) Smoking Status: Former Smoker Hx Alcohol Use: No Hx Substance Use: No Substance used: cocaine Hx Substance Use Treatment: Yes (NARCOTICS ANONYMOUS) Allergies/Home Meds Allergies/Adverse Reactions: Allergies No Known Allergies Allergy (Verified 09/19/16 16:59) Home Medications: Home Meds Medication Instructions Recorded Confirmed ALPRAZolam [Xanax] 0.25 mg PO Q8 PRN 12/13/16 12/13/16 Digoxin [Lanoxin] 125 mcg PO DAILY 12/13/16 12/13/16 Ferrous Sulfate [Feosol] 325 mg PO DAILY 12/13/16 12/13/16 Furosemide [Lasix] 80 mg PO DAILY 12/13/16 12/13/16 Insulin Detemir [Levemir] 20 unit SC HS 12/13/16 12/13/16 Insulin Lispro [Humalog Kwikpen 100 unit SQ ACHS PRN 12/13/16 12/13/16 U-100] Iron Aspgly,Ps/C/Succinic Acid 1 cap PO DAILY 12/13/16 12/13/16 [Ferrex 150 Plus 50 mg-150 mg-50 mg] Levothyroxine [Synthroid] 125 mcg PO DAILY 12/13/16 12/13/16 Tramadol HCl [Ultram] 50 mg PO Q8 PRN 12/13/16 12/13/16 Review of Systems - Review of Systems Constitutional: Normal. absent: Fatigue, Weight Change, Fevers Eyes: Normal ENT: Normal Respiratory: Normal. absent: SOB, Cough, Sputum, Wheezing Cardiovascular: Normal. absent: Chest Pain, Palpitations Gastrointestinal: Normal. absent: Abdominal Pain, Nausea, Vomiting Genitourinary Female: Normal Musculoskeletal: Other (see hpi) Skin: Cellulitis Neurological: Normal. absent: Headache Endocrine: Normal Hemo/Lymphatic: Normal Psychiatric: Normal Physical Exam Temperature: Afebrile Blood Pressure: Normal Pulse: Regular Respiratory Rate: Normal Appearance: Positive for: Well-Appearing, Non-Toxic, Comfortable Pain Distress: None Mental Status: Positive for: Alert and Oriented X 3 - Systems Exam Head: Present: Atraumatic, Normocephalic Pupils: Present: PERRL Extroacular Muscles: Present: EOMI Conjunctiva: Present: Normal Mouth: Present: Moist Mucous Membranes Neck: Present: Normal Range of Motion Respiratory/Chest: Present: Clear to Auscultation, Good Air Exchange. No: Respiratory Distress, Accessory Muscle Use Cardiovascular: Present: Regular Rate and Rhythm, Normal S1, S2. No: Murmurs Abdomen: Present: Normal Bowel Sounds. No: Tenderness, Distention, Peritoneal Signs Back: Present: Normal Inspection Upper Extremity: Present: Normal Inspection. No: Cyanosis, Edema Lower Extremity: Present: Edema ((+) 2 edema), CALF TENDERNESS, NORMAL PULSES, Warren's Sign, Tenderness, Swelling, Erythema, Temperature Abnormalties, Neurovascularly Intact, Capillary Refill < 2 s. No: Normal ROM, Deformity Neurological: Present: GCS=15, CN II-XII Intact, Speech Normal, Motor Func Grossly Intact, Normal Sensory Function, Normal Cerebellar Funct Skin: Present: Warm, Dry, Normal Color. No: Rashes Psychiatric: Present: Alert, Oriented x 3, Normal Insight, Normal Concentration Vital Signs Temp Pulse Resp BP Pulse Ox 12/14/16 00:20 97.6 F 120 H 20 100/50 L 95 12/13/16 23:38 113 H 18 114/99 H 99 12/13/16 18:28 120 H 20 103/62 95 12/13/16 17:20 103/64 12/13/16 16:32 97.7 F 124 H 18 103/64 97 Medical Decision Making Re-evaluation Time: 21:48 Reassessment Condition: Re-examined, Improving,but remains with symptoms - Lab Interpretations I have reviewed the lab results: Yes Interpretation: Abnormal lab values - EKG Interpretation Interpreted by ED Physician: Yes (sinus tachycardia @122 bpm. LBBB) Type: 12 lead EKG Comparison: Similar to previous EKG ED Course and Treatment: I was available for consultation during PA evaluation. The chart was reviewed by me, and I agree with disposition. The documented history was done by the physician interior design project manager. The documented physical exam was done by the physician interior design project manager. The documented procedures were done by the physician interior design project manager. (Juan Young) 12/13/16 21:[address] Pimentel, and medical sales representative Yasmine. We reviewed medical history and labs result. Patient with intractable leg pain, severe edema, elevated BNP. Patient unable to ambulate. He agrees with plan for admission. (Lucinda Pearson) - Lab Interpretations Microbiology Results: Microbiology Results 12/13/16 16:45 Blood-Venous Blood Culture - Preliminary NO GROWTH AFTER 48 HOURS 12/13/16 16:30 Blood-Venous Blood Culture - Preliminary NO GROWTH AFTER 48 HOURS 12/13/16 19:21 Urine Urine Culture - Final No Growth (<1,000 CFU/ML) Lab Results: 12/13/16 16:30 12/13/16 16:30 Lab Results 12/13/16 19:21: Urine Color Yellow, Urine Appearance Clear, Urine pH 6.0, Ur Specific [place] 1.010, Urine Protein Negative, Urine Glucose (UA) 500 H, Urine Ketones Negative, Urine Blood Negative, Urine Nitrate Negative, Urine Bilirubin Negative, Urine Urobilinogen 0.2, Ur Leukocyte Esterase Negative 12/13/16 16:54: pO2 32, VBG pH 7.33, VBG pCO2 55.0, VBG HCO3 29.0 H, VBG Total CO2 30.7 H, VBG O2 Sat (Calc) 62.3, VBG Base Excess 1.9, VBG Potassium 4.1, Glucose 424 H* D, Lactate 1.8, FiO2 21.0, Sodium 128.0 L, Chloride 90.0 L, Venous Blood Potassium 4.1 12/13/16 16:30: Sodium 127 L, Potassium 4.0, Chloride 90 L, Carbon Dioxide 27, Anion Gap 14, BUN 40 H, Creatinine 0.8, Est GFR ( Amer) > 60, Est GFR ( Non-Af Amer) > 60, Random Glucose 389 H* D, Calcium 8.9, Total Bilirubin 0.5, AST 24, ALT 24, Alkaline Phosphatase 123, Lactate Dehydrogenase 371, Total Creatine Kinase 20 L, Troponin I < 0.01, NT-Pro-B Natriuret Pep 4640 H, Total Protein 6.3, Albumin 3.3, Globulin 3.0, Albumin/Globulin Ratio 1.1 12/13/16 16:30: PT 11.9 H, INR 1.10 H, APTT 27.1 12/13/16 16:30: WBC 9.9 D, RBC 4.09, Hgb 11.4 L, Hct 34.8 L, MCV 85.1 D, MCH 27.9, MCHC 32.8, RDW 22.0 H, Plt Count 329, MPV 9.9, Gran % 71.3 H, Lymph % ( Auto) 16.7 L, [place] % (Auto) 9.5 H, Eos % (Auto) 2.2, Baso % (Auto) 0.3, Gran # 7.03 H, Lymph # 1.7, [place] # 0.9 H, Eos # 0.2, Baso # 0.03 - RAD Interpretation Narrative RAD Interpretations (Text): 12/13/16 20:41 Venous Doppler : no DVT as per US 12/13/16 21:48 CXR: NAD (Pearson,Nahim P) Radiology Orders: 12/13/16 16:25 DUPLEX LOWER EXTRM VEIN BILAT [US] Stat 12/13/16 16:27 CHEST PORTABLE [RAD] Stat - Medication Orders Current Medication Orders: Alprazolam (Xanax) 0.25 mg PO Q8 PRN; Protocol PRN Reason: Anxiety Stop: 12/20/16 22:46 Apixaban (Eliquis) 5 mg PO BID IZABELA PRN Reason: Protocol Last Admin: 12/15/16 17:29 Dose: 5 mg Digoxin (Lanoxin) 0.125 mg PO 1400 [facility] Last Admin: 12/15/16 15:12 Dose: 0.125 mg Ferrous Sulfate (Feosol) 324 mg PO DAILY [facility] Last Admin: 12/15/16 09:21 Dose: 324 mg Furosemide (Lasix) 40 mg IVP BID [facility] Last Admin: 12/15/16 17:29 Dose: 40 mg Cefazolin Sodium (Ancef 1gm In Ns) 1 gm in 100 mls @ 100 mls/hr IVPB Q8 IZABELA PRN Reason: Protocol Last Admin: 12/15/16 15:10 Dose: 100 mls/hr Insulin Detemir (Levemir) 20 unit SC HS [facility] Last Admin: 12/14/16 22:50 Dose: 20 unit Insulin Human Lispro (Humalog Low) 0 units SC ACHS IZABELA PRN Reason: Protocol Last Admin: 12/15/16 17:29 Dose: 3 units Levothyroxine Sodium (Synthroid) 125 mcg PO DAILY [facility] Last Admin: 12/15/16 09:22 Dose: 125 mcg Comments: given at 846 Losartan Potassium (Cozaar) 12.5 mg PO DAILY [facility] Last Admin: 12/15/16 12:16 Dose: 12.5 mg Metoprolol Tartrate (Lopressor) 12.5 mg PO BID [facility] Last Admin: 12/15/16 17:30 Dose: 12.5 mg Ondansetron HCl (Zofran Inj) 4 mg IVP Q4H PRN PRN Reason: Nausea/Vomiting Pantoprazole Sodium (Protonix Ec Tab) 40 mg PO 0600 [facility] Last Admin: 12/15/16 06:25 Dose: 40 mg Polysaccharide Iron Complex (Ferrex-150) 150 mg PO DAILY [facility] Last Admin: 12/15/16 09:21 Dose: 150 mg Spironolactone (Aldactone) 25 mg PO BID [facility] Last Admin: 12/15/16 17:30 Dose: 25 mg Tolvaptan (Samsca) 15 mg PO DAILY IZABELA Tramadol HCl (Ultram) 50 mg PO Q8 PRN PRN Reason: Pain, moderate (4-7) Last Admin: 12/14/16 10:35 Dose: 50 mg Re-Assess: ASIM Pain Assessment Document 12/14/16 11:35 ANGELINA (Rec: 12/14/16 18:23 ANGELINA [id number]) Pain Reassessment Is this a pain reassessment? Yes Sleep Is patient sleeping during reassessment? No Presence of Pain Presence of Pain No Discontinued Medications Alteplase, Recombinant (Cathflo 2 Mg Inj) 2 mg IV ONCE ONE Stop: 12/14/16 16:41 Last Admin: 12/14/16 17:21 Dose: 2 mg Alteplase, Recombinant (Cathflo 2 Mg Inj) 2 mg IV ONCE ONE Stop: 12/15/16 07:45 Last Admin: 12/15/16 08:19 Dose: 2 mg Furosemide (Lasix) 60 mg IVP STAT STA Stop: 12/13/16 17:11 Last Admin: 12/13/16 17:20 Dose: 60 mg Furosemide (Lasix) 80 mg PO DAILY [facility] Furosemide (Lasix) 40 mg IVP DAILY [facility] Furosemide (Lasix) 40 mg IVP Q8H [facility] Last Admin: 12/15/16 08:18 Dose: 40 mg Vancomycin HCl (Vancomycin 1gm) 1 gm in 250 mls @ 167 mls/hr IVPB DAILY [facility] PRN Reason: Protocol Last Admin: 12/14/16 00:20 Dose: 167 mls/hr Insulin Human Regular (Humulin R) 10 units IVP STAT STA Stop: 12/13/16 17:28 Last Admin: 09/05/17 17:34 Dose: 10 units Morphine Sulfate (Morphine) 2 mg IVP STAT STA Stop: 12/13/16 17:11 Last Admin: 12/13/16 17:21 Dose: 2 mg Morphine Sulfate (Morphine) 2 mg IVP STAT STA Stop: 12/13/16 21:36 Last Admin: 12/14/16 00:19 Dose: 2 mg Potassium Chloride (K-Dur 20 Meq Er Tab) 20 meq PO ONCE ONE Stop: 12/15/16 12:05 Last Admin: 12/15/16 12:12 Dose: 20 meq Tolvaptan (Samsca) 30 mg PO DAILY [facility] Stop: 12/16/16 07:38 Last Admin: 12/14/16 16:05 Dose: 30 mg Disposition/Present on Arrival - Present on Arrival Any Indicators Present on Arrival: No History of DVT/PE: No History of Uncontrolled Diabetes: Yes Urinary Catheter: No History Surgical Site Infection Following: None - Disposition Have Diagnosis and Disposition been Completed?: Yes Disposition Time: 21:51 Patient Plan: Admission - Disposition Diagnosis: CHF exacerbation, Intractable pain, Hyperglycemia, Pleural effusion, Tachycardia, Leg edema Disposition: HOSPITALIZED Patient Problems: Current Active Problems Problem Status Onset CHF exacerbation Acute Hyperglycemia Acute Intractable pain Acute Leg edema Acute Pleural effusion Acute Tachycardia Acute Condition: STABLE
[2016-12-13 16:59] LABS: VENOUS BLOOD GAS BASE EXCESS 1.9 mmol/L (0.0-2.0); VENOUS BLOOD PH 7.33 (7.32-7.43)
[2016-12-13 17:01] LABS: BASO # 0.03 K/mm3 (0.0-2.0); BASO % 0.3 % (0.0-3.0); EOS # 0.2 (0.0-0.7); EOS % 2.2 % (1.5-5.0); GRAN # 7.03 (1.4-6.5); GRAN % 71.3 % (50.0-68.0); HEMATOCRIT 34.8 % (36.0-48.0); LYMPH # 1.7 (1.2-3.4); LYMPH % 16.7 % (22.0-35.0); MEAN CELL VOLUME 85.1 fl (80.0-105.0); MEAN CORPUSCULAR HEMOGLOBIN 27.9 pg (25.0-35.0); MEAN CORPUSCULAR HGB CONC 32.8 g/dl (31.0-37.0); MEAN PLATELET VOLUME 9.9 fl (7.0-11.0); MONO # 0.9 (0.1-0.6); MONO % 9.5 % (1.0-6.0); WHITE BLOOD COUNT 9.9 10^3/ul (4.5-11.0)
[2016-12-13] MEDS ORDERED: Morphine 2 mg/ml ISec IVP STA ×2 (17:10→21:35)
[2016-12-13 17:11] LABS: INR 1.1 (0.93-1.08); PARTIAL THROMBOPLASTIN TIME 27.1 Seconds (23.7-30.8)
[2016-12-13 17:13] LABS: ALB/GLOB RATIO 1.1 (1.1-1.8); ALKALINE PHOSPHATASE 123 U/L (38-126); ALT/SGPT 24 U/L (7-56); AST/SGOT 24 U/L (14-36); BILIRUBIN,TOTAL 0.5 mg/dL (0.2-1.3); BLOOD UREA NITROGEN 40 mg/dL (7-21); CALCIUM 8.9 mg/dL (8.4-10.5); CARBON DIOXIDE 27 mmol/L (21-33); CHLORIDE 90 mmol/L (98-107); GFR AFRICAN-AMERICAN > 60; SODIUM 127 mmol/L (132-148); TOTAL PROTEIN 6.3 g/dL (5.8-8.3)
[2016-12-13 17:24] LABS: GLUCOSE,RANDOM 389 mg/dL (70-110); TROPONIN I < 0.01 ng/mL
[2016-12-13] MEDS ORDERED: Insulin Regular 1 UNITS/0.01 ML ML IVP STA (17:27)
[2016-12-13 19:40] LABS: URINE BILIRUBIN NEGATIVE (NEGATIVE); URINE BLOOD NEGATIVE (NEGATIVE); URINE GLUCOSE (UA) 500 mg/dL (NEGATIVE); URINE KETONE NEGATIVE (NEGATIVE); URINE LEUKOCYTE ESTERASE NEGATIVE Leu/uL (NEGATIVE); URINE PROTEIN NEGATIVE mg/dL (<30 mg/dL); URINE UROBILINOGEN 0.2 E.U./dL (<1 E.U./dL)
[2016-12-13 19:44] LABS: URINE APPEARANCE CLEAR (CLEAR); URINE COLOR YELLOW (YELLOW)
[2016-12-13] MEDS ORDERED: Vancomycin 1gm in NS 250ml 1 GM/250 ML BAG IVPB SCH (22:54)
--- NOTE | 2016-12-13 23:21 | CP.PCM.HP ---
<Dalton Huber - Last Filed: 12/14/16 00:06> History of Present Illness - History of Present Illness History of Present Illness: 51 y/o F with PMH of DM2, CHF with EF of 30%, HTN, non-ischemic cardiomyopathy, chronic pleural effusion, DVT, Recurrent PE on Eliquis, hypothyroidism, and schizophrenia presents from rehab facility for b/l lower extremity swelling and redness for 1 week. Patient is a poor historian and much of information gather is from prior medical charts and staff. Pt states she began to develop redness and pain in her legs over 1 week ago and it progressively became worse. Pt is unsure if she received any treatment at her rehab facility. In addition, patient also began developing lower extremity edema and pain at this time. Pt was sent into the ED by rehab facility physician for further care. Pt admits to mild abdominal pain, which is chronic. Denies CP, SOB, N/V/D, fever, chills, recent sick contacts, syncope, lightheadedness, dysuria. PMH: DM2, CHF, HTN, non-ischemic cardiomyopathy, chronic pleural effusion, DVT, PE, hypothyroidism, and schizophrenia PSH: cholecystectomy FMH: Noncontributory Social hx: Denies tobacco, alcohol, or illict drug use Allergies: NKDA Medications: Reviewed, as per MAR Present on Admission - Present on Admission Any Indicators Present on Admission: No Review of Systems - Review of Systems Review of Systems: 12 point review of systems as per HPI, otherwise negative Past Patient History - Infectious Disease Hx of Infectious Diseases: None - Tetanus Immunizations Tetanus Immunization: Unknown - Past Medical History & Family History Past Medical History?: Yes - Past Social History Smoking Status: Former Smoker - CARDIAC Hx Cardiac Disorders: Yes Hx Congestive Heart Failure: Yes Hx Hypertension: Yes - PULMONARY Hx Chronic Obstructive Pulmonary Disease (COPD): Yes - NEUROLOGICAL Hx Neurological Disorder: No Hx Seizures: No - HEENT Hx HEENT Problems: No - RENAL Hx Chronic Kidney Disease: No - ENDOCRINE/METABOLIC Hx Diabetes Mellitus Type 2: Yes Hx Hypothyroidism: Yes - HEMATOLOGICAL/ONCOLOGICAL Hx Blood Disorders: No - INTEGUMENTARY Hx Dermatological Problems: No Hx Basil Cell: No Hx Eczema: No Hx Melanoma: No Hx Psoriasis: No Hx Squamous Cell: No - MUSCULOSKELETAL/RHEUMATOLOGICAL Hx Falls: No - GASTROINTESTINAL Hx Gastrointestinal Disorders: Yes Hx Crohn's Disease: No Hx Diverticulitis: Yes Hx Gastroesophageal Reflux: Yes - GENITOURINARY/GYNECOLOGICAL Hx Genitourinary Disorders: No Hx Sexually Transmitted Disorders: No - PSYCHIATRIC Hx Anxiety: Yes Hx Bipolar Disorder: Yes Hx Depression: Yes Hx Substance Use: No - SURGICAL HISTORY Hx Appendectomy: No Hx Cholecystectomy: Yes Hx Coronary Stent: No Other/Comment: neck mass excision - ANESTHESIA Hx Anesthesia: Yes Hx Anesthesia Reactions: No Hx Malignant Hyperthermia: No Meds Allergies/Adverse Reactions: Allergies Allergy/AdvReac Type Severity Reaction Status Date / Time No Known Allergies Allergy Verified 09/19/16 16:59 Physical Exam - Constitutional Appears: Non-toxic, No Acute Distress - Head Exam Head Exam: ATRAUMATIC, NORMAL INSPECTION, NORMOCEPHALIC - Eye Exam Eye Exam: EOMI, Normal appearance - ENT Exam ENT Exam: Mucous Membranes Moist, Normal Exam - Neck Exam Neck exam: Positive for: Normal Inspection. Negative for: Lymphadenopathy - Respiratory Exam Respiratory Exam: Rales (Mild in b/l lateral bases), NORMAL BREATHING PATTERN. absent: Rhonchi, Wheezes - Cardiovascular Exam Cardiovascular Exam: Tachycardia, +S1, +S2 - GI/Abdominal Exam GI & Abdominal Exam: Distended, Normal Bowel Sounds, Soft, Tenderness (Diffuse ) . absent: Guarding, Organomegaly - Extremities Exam Extremities exam: Positive for: calf tenderness, pedal edema - Neurological Exam Neurological exam: Alert, CN II-XII Intact, Oriented x3 - Psychiatric Exam Psychiatric exam: Normal Affect, Normal Mood - Skin Skin Exam: Intact, Warm Additional comments: Erythema covering lower extremities b/l, from mid foot all the way into the groin. Results - Vital Signs Recent Vital Signs: Last Vital Signs Temp 97.7 F 12/13/16 16:32 Pulse 120 H 12/13/16 18:28 Resp 20 12/13/16 18:28 BP 103/62 12/13/16 18:28 Pulse Ox 95 12/13/16 18:28 - Labs Result Diagrams: 12/13/16 16:30 12/13/16 16:30 Labs: Laboratory Results - last 24 hr 12/13/16 12/13/16 12/13/16 16:30 16:30 16:30 WBC 9.9 D RBC 4.09 Hgb 11.4 L Hct 34.8 L MCV 85.1 D MCH 27.9 MCHC 32.8 RDW 22.0 H Plt Count 329 MPV 9.9 Gran % 71.3 H Lymph % (Auto) 16.7 L [place] % (Auto) 9.5 H Eos % (Auto) 2.2 Baso % (Auto) 0.3 Gran # 7.03 H Lymph # 1.7 [place]fe # 0.9 H Eos # 0.2 Baso # 0.03 PT 11.9 H INR 1.10 H APTT 27.1 pO2 VBG pH VBG pCO2 VBG HCO3 VBG Total CO2 VBG O2 Sat (Calc) VBG Base Excess VBG Potassium Glucose Lactate FiO2 Sodium 127 L Potassium 4.0 Chloride 90 L Carbon Dioxide 27 Anion Gap 14 BUN 40 H Creatinine 0.8 Est GFR ( Amer) > 60 Est GFR (Non-Af Amer) > 60 Random Glucose 389 H* D Calcium 8.9 Total Bilirubin 0.5 AST 24 ALT 24 Alkaline Phosphatase 123 Lactate Dehydrogenase 371 Total Creatine Kinase 20 L Troponin I < 0.01 NT-Pro-B Natriuret Pep 4640 H Total Protein 6.3 Albumin 3.3 Globulin 3.0 Albumin/Globulin Ratio 1.1 Venous Blood Potassium Urine Color Urine Appearance Urine pH Ur Specific [place] Urine Protein Urine Glucose (UA) Urine Ketones Urine Blood Urine Nitrate Urine Bilirubin Urine Urobilinogen Ur Leukocyte Esterase 12/13/16 12/13/16 16:54 19:21 WBC RBC Hgb Hct MCV MCH MCHC RDW Plt Count MPV Gran % Lymph % (Auto) [place] % (Auto) Eos % (Auto) Baso % (Auto) Gran # Lymph # [place] # Eos # Baso # PT INR APTT pO2 32 VBG pH 7.33 VBG pCO2 55.0 VBG HCO3 29.0 H VBG Total CO2 30.7 H VBG O2 Sat (Calc) 62.3 VBG Base Excess 1.9 VBG Potassium 4.1 Glucose 424 H* D Lactate 1.8 FiO2 21.0 Sodium 128.0 L Potassium Chloride 90.0 L Carbon Dioxide Anion Gap BUN Creatinine Est GFR ( Amer) Est GFR (Non-Af Amer) Random Glucose Calcium Total Bilirubin AST ALT Alkaline Phosphatase Lactate Dehydrogenase Total Creatine Kinase Troponin I NT-Pro-B Natriuret Pep Total Protein Albumin Globulin Albumin/Globulin Ratio Venous Blood Potassium 4.1 Urine Color Yellow Urine Appearance Clear Urine pH 6.0 Ur Specific [place] 1.010 Urine Protein Negative Urine Glucose (UA) 500 H Urine Ketones Negative Urine Blood Negative Urine Nitrate Negative Urine Bilirubin Negative Urine Urobilinogen 0.2 Ur Leukocyte Esterase Negative Assessment & Plan - Assessment and Plan (Free Text) Plan: 51 y/o F with PMH of DM2, CHF with EF of 30%, HTN, non-ischemic cardiomyopathy, chronic pleural effusion, DVT, Recurrent PE on Eliquis, hypothyroidism, and schizophrenia presents with CHF exacerbation and cellulitis. CXR appears to show b/l pulmonary infiltrates in the setting of elevated BNP. Pt also had b/l lower extremity US which was negative for DVT. Pt will have consults placed to Cardiology and ID. Pt will be admitted for IV medications and further monitoring of her symptoms. 1. CHF exacerbation BNP 4640 Lasix 40 mg daily Home Spironolactone, Lopressor, and Digoxin continued Recent Echo showed EF of 30% Cardiology consulted, Dr. Gipson Strict I's and O's Daily weights Fluid restriction 2. Cellulitis Vancomycin 1 gm daily ID consulted, Dr. Valentino 3. DM Home Levemir resumed Will added ISS for coverage Recent HgA1c 11.5 4. A-fib Home Lopressor continued 5. Recurrent PE Continue Eliquis LE US negative for DVT 6. Hypothyroidism Continue Synthroid 7. PPX Protonix Eliquis Heidi Huber, PGY-2 <Gerson Pimentel - Last Filed: 12/14/16 08:21> Results - Vital Signs Recent Vital Signs: Last Vital Signs Temp 97.8 F 12/14/16 06:00 Pulse 126 H 12/14/16 06:00 Resp 20 12/14/16 06:00 BP 128/63 12/14/16 06:00 Pulse Ox 95 12/14/16 06:00 - Labs Result Diagrams: 12/13/16 16:30 12/13/16 16:30 Labs: Laboratory Results - last 24 hr 12/14/16 07:18 POC Glucose (mg/dL) 190 H Attending/Attestation - Attestation I have personally seen and examined this patient.: Yes I have fully participated in the care of the patient.: Yes I have reviewed all pertinent clinical information: Yes Notes (Text): 12/14/16 08:20 Patient was seen when she was in the ER in bed # 21. Agree with history ,physical examination, assessment and plan.
[2016-12-14 02:18] VITALS: BMI 310453.7
[2016-12-14] MEDS: Pantoprazole 40 mg EC Tab PO SCH (05:45)
--- NOTE | 2016-12-14 07:43 | RAD ---
HISTORY: leg swelling COMPARISON: 11/15/2016 FINDINGS: LUNGS: Each half of the inferior hemithorax is opacified. Bilateral moderate -large pleural effusions are suggested. Bibasilar compressive atelectasis is inferred. Concomitant underlying infiltrates and/or masses- cannot be excluded PLEURA: Moderate -large bilateral pleural effusions- as above. No pneumothorax apparent. CARDIOVASCULAR: Cardiomegaly -similar. Moderate pulmonary venous congestion OSSEOUS STRUCTURES: No significant abnormalities. VISUALIZED UPPER ABDOMEN: Normal. OTHER FINDINGS: The right internal jugular vein catheter has been removed. IMPRESSION: CHF. Interval increased bilateral pleural effusions. Inferred bibasilar compressive atelectasis. Interval removal right central line.
[2016-12-14] MEDS: Insulin Lispro (humaLOG) LOW Coverage SC SCH ×4 (08:32→22:42)
[2016-12-14] MEDS: Iron Complex Polysacch 150mg Cap PO SCH ×2 (10:43→10:44)
[2016-12-14] MEDS: Levothyroxine 125 MCG TAB PO SCH (11:05)
--- NOTE | 2016-12-14 14:00 | CP.PCM.CON ---
History of Present Illness - History of Present Illness History of Present Illness: 51 year old female with PMH of HTN, hypothyroidism, DM, chronic CHF, history of migraines, bipolar disorder, history of acute cholecystitis S/P laparoscopic cholecystectomy in Apr 2016 was recently in [facility] for hyperglycemic state and treatment of her CHF. She was moved to a subacute center and was discharged from there. She comes back to [facility] complaining of worsening lower extremity swelling and pain for about a week. She denies fever or chills, no animal contacts, no trauma to the lower extremities. She has some dyspnea on exertion, occasional dry cough, no chest pain, no headache or dizziness, occasional abdominal pain, no diarrhea, no dysuria. Infectious Diseases consult is requested to further evaluate and manage. Review of Systems - Review of Systems All systems: reviewed and no additional remarkable complaints except (as per HPI ) Past Patient History - Infectious Disease Hx of Infectious Diseases: None - Tetanus Immunizations Tetanus Immunization: Unknown - Past Medical History & Family History Past Medical History?: Yes - Past Social History Smoking Status: Former Smoker - CARDIAC Hx Cardiac Disorders: Yes Hx Circulatory Problems: Yes Hx Congestive Heart Failure: Yes Hx Hypercholesterolemia: Yes Hx Hypertension: Yes Hx Peripheral Edema: Yes Hx Peripheral Vascular Disease: Yes - PULMONARY Hx Respiratory Disorders: Yes Hx Chronic Obstructive Pulmonary Disease (COPD): Yes Hx Emphysema: Yes Other/Comment: pulmonary embolism, pneumonia - NEUROLOGICAL Hx Migraine: Yes - HEENT Hx HEENT Problems: No - RENAL Hx Chronic Kidney Disease: No - ENDOCRINE/METABOLIC Hx Diabetes Mellitus Type 1: Yes Hx Diabetes Mellitus Type 2: Yes Hx Hypothyroidism: Yes - HEMATOLOGICAL/ONCOLOGICAL Hx Blood Disorders: No - INTEGUMENTARY Hx Dermatological Problems: No Hx Basil Cell: No Hx Eczema: No Hx Melanoma: No Hx Psoriasis: No Hx Squamous Cell: No - MUSCULOSKELETAL/RHEUMATOLOGICAL Hx Musculoskeletal Disorders: Yes Hx Degenerative Joint Disease: Yes Hx Falls: No - GASTROINTESTINAL Hx Diverticulitis: Yes Other/Comment: cholecystectomy - GENITOURINARY/GYNECOLOGICAL Hx Incontinence: Yes Hx Urinary Tract Infection: Yes - PSYCHIATRIC Hx Anxiety: Yes Hx Bipolar Disorder: Yes Hx Depression: Yes Hx Schizophrenia: Yes Hx Substance Use: Yes - SURGICAL HISTORY Hx Surgeries: Yes Hx Cholecystectomy: Yes - ANESTHESIA Hx Anesthesia: Yes Hx Anesthesia Reactions: No Hx Malignant Hyperthermia: No Meds Allergies/Adverse Reactions: Allergies Allergy/AdvReac Type Severity Reaction Status Date / Time No Known Allergies Allergy Verified 09/19/16 16:59 - Medications Medications: Current Medications Alprazolam (Xanax) 0.25 mg PO Q8 PRN; Protocol PRN Reason: Anxiety Stop: 12/20/16 22:46 Apixaban (Eliquis) 5 mg PO BID [facility] PRN Reason: Protocol Digoxin (Lanoxin) 0.125 mg PO 1400 [facility] Ferrous Sulfate (Feosol) 324 mg PO DAILY [facility] Furosemide (Lasix) 40 mg IVP DAILY [facility] Insulin Detemir (Levemir) 20 unit SC HS [facility] Insulin Human Lispro (Humalog Low) 0 units SC ACHS [facility] PRN Reason: Protocol Levothyroxine Sodium (Synthroid) 125 mcg PO DAILY [facility] Metoprolol Tartrate (Lopressor) 12.5 mg PO BID [facility] Ondansetron HCl (Zofran Inj) 4 mg IVP Q4H PRN PRN Reason: Nausea/Vomiting Pantoprazole Sodium (Protonix Ec Tab) 40 mg PO 0600 [facility] Last Admin: 12/14/16 05:45 Dose: 40 mg Polysaccharide Iron Complex (Ferrex-150) 150 mg PO DAILY [facility] Spironolactone (Aldactone) 25 mg PO BID [facility] Tramadol HCl (Ultram) 50 mg PO Q8 PRN PRN Reason: Pain, moderate (4-7) Physical Exam - Constitutional Appears: Non-toxic, No Acute Distress - Head Exam Head Exam: NORMAL INSPECTION - ENT Exam ENT Exam: Mucous Membranes Moist - Neck Exam Neck exam: Negative for: Lymphadenopathy, Meningismus - Respiratory Exam Respiratory Exam: Decreased Breath Sounds - Cardiovascular Exam Cardiovascular Exam: +S1, +S2 - GI/Abdominal Exam GI & Abdominal Exam: Soft. absent: Tenderness - Extremities Exam Additional comments: both legs with erythema and swelling, tender to palpation Results - Vital Signs Recent Vital Signs: Last Vital Signs Temp 97.9 F 12/14/16 01:53 Pulse 117 H 12/14/16 06:00 Resp 19 12/14/16 01:53 BP 133/62 12/14/16 01:53 Pulse Ox 95 12/14/16 00:35 - Labs Result Diagrams: 12/13/16 16:30 12/13/16 16:30 Assessment & Plan - Assessment and Plan (Free Text) Plan: Assessment bilateral lower extremity swelling, consider venous stasis in a patient with chronic congestive heart failure, R/O superimposed cellulitis, R/O DVT history of lower UTI with Klebsiella and Pseudomonas associated with Witt catheter S/P severe sepsis S/P hypoxic ventilator-dependent respiratory failure probably due to bilateral lower lobe healthcare-associated pneumonia history of hyperglycemic, hyperosmolar state with acute pancreatitis history of VRE in the urine - probably asymptomatic bacteriuria chronic congestive heart failure due to cardiomyopathy history of healthcare-associated pneumonia, right middle lobe history of bilateral healthcare-associated pneumonia S/P acute cholecystitis, S/P laparoscopic cholecystectomy CAD DM HTN history of migraines bipolar disorder Plan will start patient on Cefazolin; follow up blood cx, doppler U/S to rule out DVT , ESR, CRP will monitor clinically
--- NOTE | 2016-12-14 14:28 | US ---
HISTORY: Leg pain and swelling. Evaluate for DVT PHYSICIAN(S): Kal Peña MD. TECHNIQUE: Duplex sonography and color-flow Doppler with graded compression were used to evaluate the deep venous systems of both lower extremities. The exam is very limited by edema. FINDINGS: The visualized deep venous systems of both lower extremities are sonographically normal and compressible. Normal wave forms and augmentation are seen. There is no sonographic evidence for deep venous thrombosis in the visualized segments of both lower extremities. IMPRESSION: No sonographic evidence for deep venous thrombosis in the visualized segments of both lower extremities. Very limited study.
[2016-12-14] MEDS: Digoxin 125 mcg (0.125 mg) Tab PO SCH (15:53)
--- NOTE | 2016-12-14 17:57 | CARD ---
APPROVED REPORT EKG Measurement Heart [id number] ME [id number] <Conclusion> Sinus tachycardia Left bundle branch block Abnormal ECG
[2016-12-14] MEDS: ceFAZolin 1 gm in NS 1 GM/100 ML BAG IVPB SCH ×2 (18:24→22:57)
--- NOTE | 2016-12-14 19:22 | CON ---
DATE: REASON FOR CONSULTATION: Chest pain, congestive heart failure, as well as bilateral leg cellulitis. HISTORY OF PRESENT ILLNESS: The patient is 51 years old female, who has history of dilated cardiomyopathy, history of bilateral leg cellulitis, history of paroxysmal atrial fibrillation, history of right subclavian and deep venous thrombosis, and history of lymphoma that was treated many years ago with chemotherapy. The patient was admitted because of shortness of breath and worsening bilateral leg swelling as well as bilateral leg pain. The patient denies retrosternal chest pain. SOCIAL HISTORY: The patient is a nonsmoker and nondrinker. MEDICATIONS: Aldactone 25 mg twice a day, Eliquis 5 mg twice a day, Feosol 1 tablet once a day, 0:58 infusion, Lanoxin 0.125 mg twice daily, Lasix 40 mg daily q.8 hours, Lopressor 12.5 mg twice a day, and Synthroid 125 mg once a day. PHYSICAL EXAMINATION: GENERAL: The patient is an elderly-aged female, who does not appear to be in acute distress. VITAL SIGNS: Blood pressure 104/64, heart rate 102, temperature 97.5, and respirations 20. HEENT: Facial edema. NECK: No JVD. CHEST: Absent breath sounds over the bases. HEART: S1 and S2 regular. EXTREMITIES: 2+ leg edema with redness and tenderness suggestive of bilateral leg cellulitis. LABORATORY DATA: Chest x-ray revealed cardiomegaly, mild CHF, and consider right middle lobe consolidation and bilateral pleural effusion. A venous Doppler ultrasound images was performed, but the report is still pending. EKG revealed sinus tachycardia at the rate of 122 with left bundle branch block, which is an old finding. ASSESSMENT: 1. Dilated cardiomyopathy. 2. Right subclavian deep venous thrombosis. 3. Bilateral leg cellulitis. 4. History of neck lymphoma. 5. Mild anemia. 6. Uncontrolled diabetes mellitus. RECOMMENDATIONS: Continue Aldactone 25 mg twice a day, Eliquis 5 mg twice a day, Lanoxin 0.125 mg twice a daily, and Lasix 40 mg daily q.8 hours. I recommend initiating intravenous antibiotic therapy for presumptive cellulitis and also right middle lung consolidation. Cesar Kinney MD
[2016-12-14] MEDS: Insulin Detemir 100 units/ml Vial (Levemir) SC SCH (22:50)
--- NOTE | 2016-12-14 23:16 | CON ---
NEPHROLOGY CONSULTATION. HISTORY OF PRESENT ILLNESS: The patient is a 51-year-old female with past medical history of hypertension, diabetes, CHF with severe systolic dysfunction and moderate to severe mitral regurg, hypothyroidism, status post PE, schizophrenia/bipolar disorder, presented from rehab facility with increasing leg swelling with erythema, found to have hyponatremia. Nephrology subsequently being consulted for the hyponatremia. The patient with prolonged hospital course discharged last month after being admitted with severely decompensated CHF. Hospital course at that time being complicated by after associated pneumonia and UTI. The patient has been on inotropic support for much of the hospital course before finally being discharged on high doses of diuretics as well as medications to optimize cardiac status; The patient currently reports increased leg swelling, but she is unable to give exact time frame, also reporting associated decrease in urination, reports that the Lasix that she has been receiving at the rehab facility has not been helping her leg swelling (was getting 80 mg p.o. daily); the patient also with progressive erythema extending from lower legs to upper legs bilaterally, the patient reports decreased ambulation since being after rehab facility; The patient reports being cognizant of her need for decreased free water intake and reports only drinking about 2 cups of water per day; she otherwise says that her appetite is well and has been eating well. She denies any sensation of dizziness; PAST MEDICAL HISTORY: As above. The patient also with lymphoma, treated with chemotherapy about 7 years ago; SOCIAL HISTORY: Previous illicit drug use. FAMILY HISTORY: Brother with multiple sclerosis. REVIEW OF SYSTEMS: CONSTITUTIONAL: Appetite well. HEENT: No change in vision. No difficulty swallowing. No sore throat or nasal discharge. RESPIRATORY: Denies cough. CARDIOVASCULAR: Reports some shortness of breath,but overall breathing well, leg swelling as mentioned above. GASTROINTESTINAL: Denies any vomiting, has been having normal bowel movements. GENITOURINARY: As per HPI. PSYCHIATRIC: Feeling depressed regarding her condition. SKIN: Erythematous legs as mentioned above. NEURO: Numbness in feet bilaterally. MUSCULOSKELETAL: Associated pain in bilateral legs. PHYSICAL EXAMINATION: VITAL SIGNS: This morning blood pressure 128/63, heart rate 126, respirations 20, temperature 97.8, and O2 sat 95% on room air. GENERAL: No distress. Conversing coherently in full sentences. HEENT: Moist mucous membranes. Nonicteric. RESPIRATORY: Decreased breath sound at bilateral bases, otherwise clear to auscultation bilaterally. No rales. No rhonchi. No wheezes. CARDIOVASCULAR: Tachycardic, irregular rate. S3 present. GASTROINTESTINAL: Abdomen is soft, nontender, nondistended. GENITOURINARY: No bladder distention. SKIN: Bilateral lower extremity erythema extending from lower legs to upper thighs, otherwise skin warm to touch. No cyanosis. NEURO: Bilateral decreased sensation in feet. PSYCHIATRIC: Appears sad at times. EXTREMITIES: Marked lower leg edema extending to thighs and lower abdominal wall and lower back. LABORATORY DATA: Labs drawn yesterday afternoon CBC: WBC 9.9, hemoglobin 11.4, hematocrit 34.8, platelets 329. Chemistry panel: Sodium 127, potassium 4.0, chloride 90, bicarb 27, BUN 40, creatinine 0.8, glucose 389, calcium 8.9, proBNP 4640. ABG, pH 7.33, pCO2 of 55, lactate 1.8. UA: Urine protein negative, urine glucose 500 mg/dL. Leukocyte esterase is negative. Urine lytes; urine sodium 9, urine osmolality 364. ASSESSMENT AND PLAN: 1. Decompensated congestive heart failure, severe systolic dysfunction complicated by mitral regurg. The patient with bilateral pleural effusions on chest x-ray that are moderately large in the setting of severe congestive heart failure. The patient has actually been on decreased diuretic doses than what she was discharged on and may explain her current congestive heart failure status; complicating matter is her low normal blood pressure, which precludes increasing the doses of medications for cardiac optimization. For now agree with cardiology and she would continue Lasix 40 mg q.8 hours as well as Aldactone 25 mg b.i.d. 2. Hyponatremia. Relatively mild compared to previous admission. The patient was discharged on tolvaptan and was needing daily doses, unclear the patient had continued to receive the medication as outpatient in rehab; current hyponatremia is partly delusional due to hyperglycemia and she would improve once sugars are corrected; urine lytes are consistent with hyponatremia secondary to severe congestive heart failure with low urine sodium consistent with intravascular volume depletion and higher osmolarity secondary to increase stimulus for antidiuretic hormone release due to volume contraction. In the setting of severe congestive heart failure need to continue aggressive diuresis. Giving dose of tolvaptan 30 mg once a day and can reassess her for further need tomorrow. 3. Prerenal azotemia secondary to diuresis in the setting of congestive heart failure, cannot give the patient back volume without worsening congestive heart failure status. The patient's renal function is relatively preserved, continue above diuretic dosing. 4. Hypothyroidism. The patient previously with elevated TSH. We will repeat level and should adjust levothyroxine dose appropriately. 5. Anemia. The patient previously with severe iron deficiency, was given IV iron load. We will repeat iron studies. Akash French MD
[2016-12-15] MEDS: ceFAZolin 1 gm in NS 1 GM/100 ML BAG IVPB SCH ×3 (06:25→22:38)
[2016-12-15] MEDS: Pantoprazole 40 mg EC Tab PO SCH (06:25)
[2016-12-15] MEDS: Insulin Lispro (humaLOG) LOW Coverage SC SCH ×4 (08:18→22:39)
[2016-12-15] MEDS: Levothyroxine 125 MCG TAB PO SCH ×2 (08:46→09:22)
[2016-12-15] MEDS: Iron Complex Polysacch 150mg Cap PO SCH (09:21)
[2016-12-15 09:58] LABS: HEMATOCRIT 38.2 % (36.0-48.0); MEAN CELL VOLUME 84.9 fl (80.0-105.0); MEAN CORPUSCULAR HEMOGLOBIN 28.4 pg (25.0-35.0); MEAN CORPUSCULAR HGB CONC 33.5 g/dl (31.0-37.0); MEAN PLATELET VOLUME 9.6 fl (7.0-11.0); RED CELL DISTRIBUTION WIDTH 20.7 % (11.5-14.5); WHITE BLOOD COUNT 10.2 10^3/ul (4.5-11.0)
[2016-12-15 10:10] LABS: ALKALINE PHOSPHATASE 170 U/L (38-126); ALT/SGPT 43 U/L (7-56); AST/SGOT 42 U/L (14-36); BILIRUBIN,TOTAL 0.6 mg/dL (0.2-1.3); BLOOD UREA NITROGEN 43 mg/dL (7-21); CALCIUM 8.8 mg/dL (8.4-10.5); CARBON DIOXIDE 28 mmol/L (21-33); CHLORIDE 94 mmol/L (98-107); GFR AFRICAN-AMERICAN > 60; GLUCOSE,RANDOM 238 mg/dL (70-110); POTASSIUM 3.7 mmol/L (3.6-5.0); SODIUM 131 mmol/L (132-148); TOTAL PROTEIN 6.2 g/dL (5.8-8.3)
--- NOTE | 2016-12-15 10:19 | PN ---
DATE: 12/15/2016 SUBJECTIVE: The patient has no complaints of any chest pain. No shortness of breath and no headaches. PHYSICAL EXAMINATION: VITAL SIGNS: Temperature is 97.1, pulse is 110, blood pressure is 110/73 and respirations are 21. GENERAL: The patient is lying in bed, flat, comfortable. HEENT: No oral lesion. Anicteric sclerae. Moist mucosa. NECK: No JVD, adenopathy, or thyromegaly. CARDIOVASCULAR: S1 and S2, regular. No murmurs, rubs, or gallops. LUNGS: Clear to auscultation bilaterally. No wheeze, rales, or rhonchi. ABDOMEN: Bowel sounds are positive, soft, nontender and nondistended. EXTREMITIES: Right lower extremity, 2+ edema. LABORATORY DATA: Sodium is 127 and glucose is 389. ASSESSMENT: 1. Hyponatremia. 2. Acute congestive heart failure secondary to systolic dysfunction. 3. Hypothyroidism. 4. Anemia, iron deficiency type. 5. Atrial fibrillation on Eliquis. 6. Diabetes type 2. PLAN: The patient has hyponatremia secondary to hypervolemia. She was placed on tolvaptan for her hyponatremia. She will need repeat blood work daily. She is on Lasix for her hypervolemia. She is going to continue with Synthroid for her hypothyroidism. She currently is comfortable, not complaining of any pain. She does have atrial fibrillation and is on Eliquis. The patient has uncontrolled diabetes with an elevated hemoglobin A1c. We will need better control of her diabetes. Her echo shows EF of 30%. Iron studies had been ordered. She is currently on oral iron. José Miguel Cannon MD
[2016-12-15 10:24] LABS: IRON 39 ug/dL (45-180)
[2016-12-15 10:25] LABS: FREE T4 1.22 ng/dL (0.78-2.19)
[2016-12-15 10:39] LABS: THYROID STIMULATING HORMONE 5.77 mIU/mL (0.46-4.68)
--- NOTE | 2016-12-15 11:54 | CP.PCM.PN ---
<Christiano Lopes - Last Filed: 12/15/16 21:43> Subjective - Date & Time of Evaluation Date of Evaluation: 12/15/16 Time of Evaluation: 11:54 - Subjective Subjective: Christiano Lopes DO, PGY-1, Hospitalist Service Patient c/o left leg pain, reports some trouble ambulating to bathroom with assistance. Denies C/P/N/V/D. Objective - Vital Signs/Intake and Output Vital Signs (last 24 hours): Temp Pulse Resp BP Pulse Ox 97.1 F L 110 H 21 110/73 99 12/15/16 08:15 12/15/16 09:19 12/15/16 08:15 12/15/16 09:19 12/15/16 08:15 Intake and Output: 12/15/16 12/15/16 06:59 18:59 Intake Total 120 Balance 120 - Medications Medications: Current Medications Alprazolam (Xanax) 0.25 mg PO Q8 PRN; Protocol PRN Reason: Anxiety Stop: 12/20/16 22:46 Apixaban (Eliquis) 5 mg PO BID [facility] PRN Reason: Protocol Last Admin: 12/15/16 09:19 Dose: 5 mg Digoxin (Lanoxin) 0.125 mg PO 1400 [facility] Last Admin: 12/14/16 15:53 Dose: 0.125 mg Ferrous Sulfate (Feosol) 324 mg PO DAILY [facility] Last Admin: 12/15/16 09:21 Dose: 324 mg Furosemide (Lasix) 40 mg IVP BID [facility] Cefazolin Sodium (Ancef 1gm In Ns) 1 gm in 100 mls @ 100 mls/hr IVPB Q8 [facility] PRN Reason: Protocol Last Admin: 12/15/16 06:25 Dose: 100 mls/hr Insulin Detemir (Levemir) 20 unit SC HS [facility] Last Admin: 12/14/16 22:50 Dose: 20 unit Insulin Human Lispro (Humalog Low) 0 units SC ACHS [facility] PRN Reason: Protocol Last Admin: 12/15/16 08:18 Dose: 2 units Levothyroxine Sodium (Synthroid) 125 mcg PO DAILY [facility] Last Admin: 12/15/16 09:22 Dose: 125 mcg Losartan Potassium (Cozaar) 12.5 mg PO DAILY [facility] Metoprolol Tartrate (Lopressor) 12.5 mg PO BID [facility] Last Admin: 12/15/16 09:19 Dose: 12.5 mg Ondansetron HCl (Zofran Inj) 4 mg IVP Q4H PRN PRN Reason: Nausea/Vomiting Pantoprazole Sodium (Protonix Ec Tab) 40 mg PO 0600 [facility] Last Admin: 12/15/16 06:25 Dose: 40 mg Polysaccharide Iron Complex (Ferrex-150) 150 mg PO DAILY [facility] Last Admin: 12/15/16 09:21 Dose: 150 mg Spironolactone (Aldactone) 25 mg PO BID [facility] Last Admin: 12/15/16 09:21 Dose: 25 mg Tolvaptan (Samsca) 15 mg PO DAILY [facility] Tramadol HCl (Ultram) 50 mg PO Q8 PRN PRN Reason: Pain, moderate (4-7) Last Admin: 12/14/16 10:35 Dose: 50 mg - Labs Labs: 12/15/16 09:40 12/15/16 09:40 PT 11.9 Seconds (9.9-11.8) H 12/13/16 16:30 INR 1.10 (0.93-1.08) H 12/13/16 16:30 APTT 27.1 Seconds (23.7-30.8) 12/13/16 16:30 Assessment and Plan - Assessment and Plan (Free Text) Assessment: 51 y/o F with PMH of DM2, CHF with EF of 30%, HTN, non-ischemic cardiomyopathy, chronic pleural effusion, DVT, Recurrent PE on Eliquis, hypothyroidism, and schizophrenia presents with CHF exacerbation and cellulitis. CXR appears to show b/l pulmonary infiltrates in the setting of elevated BNP. Pt also had b/l lower extremity US which was negative for DVT. Pt will have consults placed to Cardiology and ID. Pt will be admitted for IV medications and further monitoring of her symptoms. Plan: 51 y/o F with PMH of DM2, CHF with EF of 30%, HTN, non-ischemic cardiomyopathy, chronic pleural effusion, DVT, Recurrent PE on Eliquis, hypothyroidism, and schizophrenia presents with CHF exacerbation and cellulitis. CXR appears to show b/l pulmonary infiltrates in the setting of elevated BNP. Pt also had b/l lower extremity US which was negative for DVT. Pt will have consults placed to Cardiology and ID. Pt will be admitted for IV medications and further monitoring of her symptoms. 1. CHF exacerbation BNP 4640 Lasix 40 mg daily Home Spironolactone, Lopressor, and Digoxin continued Recent Echo showed EF of 30% Cardiology consulted, Dr. Kinney Strict I's and O's Daily weights Fluid restriction Nephrology consulted, Dr. French 2. Cellulitis Cefazolin daily ID consulted, Dr. Valentino 3. DM Home Levemir resumed Will added ISS for coverage Recent HgA1c 11.5 4. A-fib Home Lopressor continued 5. Recurrent PE Continue Eliquis LE US negative for DVT 6. Hypothyroidism Continue Synthroid 7. PPX Protonix Eliquis Heidi Huber, PGY-2 <Katherine Barragan A - Last Filed: 12/16/16 11:53> Objective - Vital Signs/Intake and Output Vital Signs (last 24 hours): Temp Pulse Resp BP Pulse Ox 9.5 F L 113 H 20 108/80 94 L 12/16/16 00:00 12/16/16 10:29 12/16/16 00:00 12/16/16 10:30 12/16/16 00:00 Intake and Output: 12/16/16 12/16/16 06:59 18:59 Intake Total 600 Output Total 400 Balance 200 - Medications Medications: Current Medications Alprazolam (Xanax) 0.25 mg PO Q8 PRN; Protocol PRN Reason: Anxiety Stop: 12/20/16 22:46 Apixaban (Eliquis) 5 mg PO BID [facility] PRN Reason: Protocol Last Admin: 12/16/16 10:29 Dose: 5 mg Betamethasone/Clotrimazole (Lotrisone) 1 gm TOP BID [facility] Last Admin: 12/16/16 10:29 Dose: 1 applic Digoxin (Lanoxin) 0.125 mg PO 1400 [facility] Last Admin: 12/15/16 15:12 Dose: 0.125 mg Ferrous Sulfate (Feosol) 324 mg PO DAILY [facility] Last Admin: 12/16/16 10:30 Dose: 324 mg Furosemide (Lasix) 40 mg IVP BID [facility] Last Admin: 12/16/16 10:30 Dose: 40 mg Cefazolin Sodium (Ancef 1gm In Ns) 1 gm in 100 mls @ 100 mls/hr IVPB Q8 [facility] PRN Reason: Protocol Last Admin: 12/16/16 06:40 Dose: 100 mls/hr Insulin Detemir (Levemir) 20 unit SC HS [facility] Last Admin: 12/15/16 22:40 Dose: 20 unit Insulin Human Lispro (Humalog Low) 0 units SC ACHS [facility] PRN Reason: Protocol Last Admin: 12/16/16 08:12 Dose: Not Given Levothyroxine Sodium (Synthroid) 125 mcg PO DAILY [facility] Last Admin: 12/16/16 10:29 Dose: 125 mcg Losartan Potassium (Cozaar) 12.5 mg PO DAILY [facility] Last Admin: 12/16/16 10:31 Dose: Not Given Metoprolol Tartrate (Lopressor) 12.5 mg PO BID [facility] Last Admin: 12/16/16 10:29 Dose: 12.5 mg Ondansetron HCl (Zofran Inj) 4 mg IVP Q4H PRN PRN Reason: Nausea/Vomiting Pantoprazole Sodium (Protonix Ec Tab) 40 mg PO 0600 [facility] Last Admin: 12/16/16 06:39 Dose: 40 mg Polysaccharide Iron Complex (Ferrex-150) 150 mg PO DAILY [facility] Last Admin: 12/16/16 10:30 Dose: 150 mg Spironolactone (Aldactone) 25 mg PO BID [facility] Last Admin: 12/16/16 10:29 Dose: 25 mg Tolvaptan (Samsca) 15 mg PO DAILY [facility] Last Admin: 12/16/16 10:29 Dose: 15 mg Tramadol HCl (Ultram) 50 mg PO Q8 PRN PRN Reason: Pain, moderate (4-7) Last Admin: 12/14/16 10:35 Dose: 50 mg - Labs Labs: 12/15/16 09:40 12/15/16 09:40 PT 11.9 Seconds (9.9-11.8) H 12/13/16 16:30 INR 1.10 (0.93-1.08) H 12/13/16 16:30 APTT 27.1 Seconds (23.7-30.8) 12/13/16 16:30 - Constitutional Appears: Well, No Acute Distress - Head Exam Head Exam: NORMAL INSPECTION - Eye Exam Eye Exam: EOMI - ENT Exam ENT Exam: Normal Exam - Respiratory Exam Respiratory Exam: Decreased Breath Sounds. absent: Wheezes - Cardiovascular Exam Cardiovascular Exam: Irregular Rhythm, +S1, +S2 - GI/Abdominal Exam GI & Abdominal Exam: Soft, Normal Bowel Sounds. absent: Tenderness Additional comments: obese - Extremities Exam Additional comments: bilateral LE erythema and swelling extending to thighs - Neurological Exam Neurological Exam: Alert, Awake, Oriented x3 - Psychiatric Exam Additional comments: irritated at times Attending/Attestation - Attestation I have personally seen and examined this patient.: Yes I have fully participated in the care of the patient.: Yes I have reviewed all pertinent clinical information, including history, physical exam and plan: Yes Notes (Text): 12/16/16 11:51 51 year old female with past medical history of CHF, diabetes, hypertension, cardiomyopathy, DVT/PE, hypothyroidism and schizophrenia who presents with CHF exacerbation and LE cellulitis. Continue with iv lasix and iv antibiotics. Podiatry and ID evaluation. Cardiology is following as well. Hyponatremia has improved. Will follow up with nephrology recommendations. Katherine Barragan MD Hospitalist.
[2016-12-15] MEDS ORDERED: Potassium Chloride 20 mEq ER Tab PO ONE (12:04)
--- NOTE | 2016-12-15 12:11 | PN ---
DATE: SUBJECTIVE: The patient's shortness of breath has improved. She is still experiencing bilateral leg swelling. She denies retrosternal chest pain. PHYSICAL EXAMINATION: VITAL SIGNS: Blood pressure 110/75, heart rate 110, temperature 97.1, and respiration 21. HEENT: Facial edema. CHEST: Right basal bronchial breathing. HEART: S1 and S2 regular. EXTREMITIES: 2-3+ pitting edema. LABORATORY DATA: Hemoglobin, hematocrit, white count, and platelet counts are within normal limit. SMA-7; sodium 131, potassium 3.7, chloride 94, CO2 is 28, glucose 238, BUN 43, and creatinine 0.9. TSH slightly elevated at 5.77. Doppler of lower extremities, no DVT. ASSESSMENT: 1. Exacerbation of congestive heart failure. 2. Bilateral leg cellulitis. 3. Bilateral pleural effusion with underlying pneumonia. 4. Uncontrolled diabetes mellitus. 5. Right subclavian deep venous thrombosis. 6. Depression. 7. Mild prerenal azotemia. RECOMMENDATIONS: Continue Aldactone 25 mg twice a day, Eliquis 5 mg twice a day, ferrous sulfate 1 tablet once a day, Lasix will be reduced to 40 mg twice a day. Continue Lopressor 12.5 mg twice a day, Synthroid 125 mg once a day, digoxin 0.125 mg once a day. Start Cozaar 12.5 mg once a day. Cesar Kinney MD
[2016-12-15] MEDS: Digoxin 125 mcg (0.125 mg) Tab PO SCH (15:12)
[2016-12-15] MEDS: Insulin Detemir 100 units/ml Vial (Levemir) SC SCH (22:40)
[2016-12-15] MEDS: Clotrimazole/Betamethasone Cream(15 gm) TOP SCH (22:41)
--- NOTE | 2016-12-15 22:54 | PN ---
DATE OF SERVICE: 12/15/2016 SUBJECTIVE: The patient is in bed, in no acute distress, nontoxic, no fever and no chills. OBJECTIVE: VITAL SIGNS: On exam, temperature 98, blood pressure is 110/50, respiratory rate of 16. HEENT: Unremarkable. NECK: Supple. LUNGS: Decreased breath sounds. HEART: Normal S1 and S2. ABDOMEN: Soft and nontender. LABORATORY DATA: Laboratory examination reveals a white count of 9, hemoglobin of 11, BUN of 43, creatinine of 0.9, and microbiology reveals the blood cultures and urine cultures are negative. ASSESSMENT AND PLAN: A 51-year-old female who is seen earlier this morning with a history of hypertension, hypothyroidism, diabetes, chronic congestive heart failure, history of migraine, bipolar disorder, history of acute cholecystitis, status post laparoscopic cholecystectomy in April, recently was seen in [place] for hyperglycemic state and treatments for her congestive heart failure. On this admission, the patient is admitted with bilateral lower extremity swelling and state of chronic congestive heart failure with superimposed cellulitis, on cefazolin, improving, workup for deep vein thrombosis and negative blood cultures, negative urine cultures. We will check on final culture result and make further recommendations. We will follow with you. Yehuda Valentino MD
[2016-12-16] MEDS: Pantoprazole 40 mg EC Tab PO SCH (06:39)
[2016-12-16] MEDS: ceFAZolin 1 gm in NS 1 GM/100 ML BAG IVPB SCH ×3 (06:40→22:29)
[2016-12-16] MEDS: Insulin Lispro (humaLOG) LOW Coverage SC SCH ×4 (08:12→22:29)
[2016-12-16] MEDS: Levothyroxine 125 MCG TAB PO SCH (10:29)
[2016-12-16] MEDS: Clotrimazole/Betamethasone Cream(15 gm) TOP SCH ×2 (10:29→18:08)
[2016-12-16] MEDS: Tolvaptan 15 MG TAB PO SCH (10:29)
[2016-12-16] MEDS: Iron Complex Polysacch 150mg Cap PO SCH (10:30)
[2016-12-16] MEDS: Digoxin 125 mcg (0.125 mg) Tab PO SCH (14:50)
--- NOTE | 2016-12-16 16:26 | CP.PCM.PN ---
<Christiano Lopes - Last Filed: 12/16/16 18:21> Subjective - Date & Time of Evaluation Date of Evaluation: 12/16/16 Time of Evaluation: 18:15 - Subjective Subjective: Christiano Lopes DO, PGY-1, Hospitalist Service Patient seen and examined at bedside. Patient c/o of leg pain, reports some trouble ambulating to bathroom with assistance. Denies C/P/N/V/D. Objective - Vital Signs/Intake and Output Vital Signs (last 24 hours): Temp Pulse Resp BP Pulse Ox 9.5 F L 113 H 20 108/80 94 L 12/16/16 00:00 12/16/16 10:29 12/16/16 00:00 12/16/16 10:30 12/16/16 00:00 Intake and Output: 12/16/16 12/16/16 06:59 18:59 Intake Total 600 Output Total 400 Balance 200 - Medications Medications: Current Medications Alprazolam (Xanax) 0.25 mg PO Q8 PRN; Protocol PRN Reason: Anxiety Stop: 12/20/16 22:46 Apixaban (Eliquis) 5 mg PO BID [facility] PRN Reason: Protocol Last Admin: 12/16/16 10:29 Dose: 5 mg Betamethasone/Clotrimazole (Lotrisone) 1 gm TOP BID [facility] Last Admin: 12/16/16 10:29 Dose: 1 applic Digoxin (Lanoxin) 0.125 mg PO 1400 [facility] Last Admin: 12/16/16 14:50 Dose: 0.125 mg Ferrous Sulfate (Feosol) 324 mg PO DAILY [facility] Last Admin: 12/16/16 10:30 Dose: 324 mg Furosemide (Lasix) 40 mg IVP BID [facility] Last Admin: 12/16/16 10:30 Dose: 40 mg Cefazolin Sodium (Ancef 1gm In Ns) 1 gm in 100 mls @ 100 mls/hr IVPB Q8 [facility] PRN Reason: Protocol Last Admin: 12/16/16 14:51 Dose: 100 mls/hr Insulin Detemir (Levemir) 20 unit SC HS [facility] Last Admin: 12/15/16 22:40 Dose: 20 unit Insulin Human Lispro (Humalog Low) 0 units SC ACHS [facility] PRN Reason: Protocol Last Admin: 12/16/16 11:54 Dose: Not Given Levothyroxine Sodium (Synthroid) 125 mcg PO DAILY [facility] Last Admin: 12/16/16 10:29 Dose: 125 mcg Losartan Potassium (Cozaar) 12.5 mg PO DAILY [facility] Last Admin: 12/16/16 10:31 Dose: Not Given Metoprolol Tartrate (Lopressor) 12.5 mg PO BID [facility] Last Admin: 12/16/16 10:29 Dose: 12.5 mg Ondansetron HCl (Zofran Inj) 4 mg IVP Q4H PRN PRN Reason: Nausea/Vomiting Pantoprazole Sodium (Protonix Ec Tab) 40 mg PO 0600 [facility] Last Admin: 12/16/16 06:39 Dose: 40 mg Polysaccharide Iron Complex (Ferrex-150) 150 mg PO DAILY [facility] Last Admin: 12/16/16 10:30 Dose: 150 mg Spironolactone (Aldactone) 25 mg PO BID [facility] Last Admin: 12/16/16 10:29 Dose: 25 mg Spironolactone (Aldactone) 50 mg PO BID [facility] Tolvaptan (Samsca) 15 mg PO DAILY [facility] Last Admin: 12/16/16 10:29 Dose: 15 mg Tramadol HCl (Ultram) 50 mg PO Q8 PRN PRN Reason: Pain, moderate (4-7) Last Admin: 12/14/16 10:35 Dose: 50 mg - Labs Labs: 12/15/16 09:40 12/15/16 09:40 PT 11.9 Seconds (9.9-11.8) H 12/13/16 16:30 INR 1.10 (0.93-1.08) H 12/13/16 16:30 APTT 27.1 Seconds (23.7-30.8) 12/13/16 16:30 - Constitutional Appears: Well, Non-toxic - Head Exam Head Exam: ATRAUMATIC, NORMOCEPHALIC - Eye Exam Eye Exam: EOMI, Normal appearance, PERRL - ENT Exam ENT Exam: Mucous Membranes Moist, Normal Oropharynx - Neck Exam Neck Exam: Normal Inspection - Respiratory Exam Respiratory Exam: Decreased Breath Sounds, Rales, NORMAL BREATHING PATTERN - Cardiovascular Exam Cardiovascular Exam: RRR, +S1, +S2 - GI/Abdominal Exam GI & Abdominal Exam: Soft, Normal Bowel Sounds. absent: Pulsatile Mass, Rebound - Extremities Exam Extremities Exam: Normal Capillary Refill, Pedal Edema, Tenderness Additional comments: weeping stage - Neurological Exam Neurological Exam: Alert, Awake, CN II-XII Intact, Oriented x3 - Psychiatric Exam Psychiatric exam: Normal Affect, Normal Mood - Skin Skin Exam: Dry, Intact, Normal Color, Warm Assessment and Plan - Assessment and Plan (Free Text) Assessment: 51 year old female with past medical history of CHF, diabetes, hypertension, cardiomyopathy, DVT/PE, hypothyroidism and schizophrenia who presents with CHF exacerbation and LE cellulitis. Continue with iv lasix and iv antibiotics. Podiatry and ID evaluation. Cardiology is following as well. Hyponatremia has improved. Will follow up with nephrology recommendations. Plan: 51 y/o F with PMH of DM2, CHF with EF of 30%, HTN, non-ischemic cardiomyopathy, chronic pleural effusion, DVT, Recurrent PE on Eliquis, hypothyroidism, and schizophrenia presents with CHF exacerbation and cellulitis. CXR appears to show b/l pulmonary infiltrates in the setting of elevated BNP. Pt also had b/l lower extremity US which was negative for DVT. Pt will have consults placed to Cardiology and ID. Pt will be admitted for IV medications and further monitoring of her symptoms. 1. CHF exacerbation Lasix 40 mg daily Spironolactone 50 mg BID, Lopressor, and Digoxin continued Recent Echo showed EF of 30% Cardiology consulted, Dr. Kinney Strict I's and O's Daily weights Fluid restriction Nephrology consulted, Dr. French 2. Cellulitis Cefazolin daily, will change based on blood cultures. Appears to be chronic LE edema with possible superimposed bacterial infection. ID consulted, Dr. Bean 3. DM Home Levemir resumed Will added ISS for coverage Recent HgA1c 11.5 4. A-fib Home Lopressor continued 5. Recurrent PE Continue Eliquis LE US negative for DVT 6. Hypothyroidism Continue Synthroid 7. PPX Protonix Eliquis Heidi <Dion [facility]OPER,[facility] - Last Filed: 12/16/16 18:39> Objective - Vital Signs/Intake and Output Vital Signs (last 24 hours): Temp Pulse Resp BP Pulse Ox 97.4 F L 110 H 20 119/70 96 12/16/16 17:10 12/16/16 17:10 12/16/16 17:10 12/16/16 18:05 12/16/16 17:10 Intake and Output: 12/16/16 12/16/16 06:59 18:59 Intake Total 600 Output Total 400 Balance 200 - Medications Medications: Current Medications Alprazolam (Xanax) 0.25 mg PO Q8 PRN; Protocol PRN Reason: Anxiety Stop: 12/20/16 22:46 Apixaban (Eliquis) 5 mg PO BID [facility] PRN Reason: Protocol Last Admin: 12/16/16 18:05 Dose: 5 mg Betamethasone/Clotrimazole (Lotrisone) 1 gm TOP BID [facility] Last Admin: 12/16/16 18:08 Dose: 1 applic Digoxin (Lanoxin) 0.125 mg PO 1400 [facility] Last Admin: 12/16/16 14:50 Dose: 0.125 mg Ferrous Sulfate (Feosol) 324 mg PO DAILY [facility] Last Admin: 12/16/16 10:30 Dose: 324 mg Furosemide (Lasix) 40 mg IVP BID [facility] Last Admin: 12/16/16 18:05 Dose: 40 mg Cefazolin Sodium (Ancef 1gm In Ns) 1 gm in 100 mls @ 100 mls/hr IVPB Q8 [facility] PRN Reason: Protocol Last Admin: 12/16/16 14:51 Dose: 100 mls/hr Insulin Detemir (Levemir) 20 unit SC HS [facility] Last Admin: 12/15/16 22:40 Dose: 20 unit Insulin Human Lispro (Humalog Low) 0 units SC ACHS [facility] PRN Reason: Protocol Last Admin: 12/16/16 18:06 Dose: 2 units Levothyroxine Sodium (Synthroid) 125 mcg PO DAILY [facility] Last Admin: 12/16/16 10:29 Dose: 125 mcg Losartan Potassium (Cozaar) 12.5 mg PO DAILY [facility] Last Admin: 12/16/16 10:31 Dose: Not Given Metoprolol Tartrate (Lopressor) 12.5 mg PO BID [facility] Last Admin: 12/16/16 18:08 Dose: Not Given Ondansetron HCl (Zofran Inj) 4 mg IVP Q4H PRN PRN Reason: Nausea/Vomiting Pantoprazole Sodium (Protonix Ec Tab) 40 mg PO 0600 [facility] Last Admin: 12/16/16 06:39 Dose: 40 mg Polysaccharide Iron Complex (Ferrex-150) 150 mg PO DAILY [facility] Last Admin: 12/16/16 10:30 Dose: 150 mg Spironolactone (Aldactone) 25 mg PO BID [facility] Last Admin: 12/16/16 18:05 Dose: Not Given Spironolactone (Aldactone) 50 mg PO BID [facility] Last Admin: 12/16/16 18:05 Dose: 50 mg Tolvaptan (Samsca) 15 mg PO DAILY [facility] Last Admin: 12/16/16 10:29 Dose: 15 mg Tramadol HCl (Ultram) 50 mg PO Q8 PRN PRN Reason: Pain, moderate (4-7) Last Admin: 12/16/16 18:13 Dose: 50 mg - Labs Labs: 12/15/16 09:40 12/15/16 09:40 PT 11.9 Seconds (9.9-11.8) H 12/13/16 16:30 INR 1.10 (0.93-1.08) H 12/13/16 16:30 APTT 27.1 Seconds (23.7-30.8) 12/13/16 16:30 Attending/Attestation - Attestation I have personally seen and examined this patient.: Yes I have fully participated in the care of the patient.: Yes I have reviewed all pertinent clinical information, including history, physical exam and plan: Yes Notes (Text): 12/16/16 18:36 Patient was seen and examined with medical claims representative. Agreed with resident assessment and plan. 51 year old female with past medical history of CHF with systolic dysfunction, MR , diabetes, hypertension, cardiomyopathy, DVT/PE on anticoagulation with Apixiban , hypothyroidism and schizophrenia with CHF exacerbation and LE cellulitis. We will continue diuresis, will increase aldactone dose.Patient case discussed with cardiology. For cellulitis, patient is on antibiotics as per ID. Blood cultures are negative so far. Management plan was discussed in detail with patient Education was provided. 12/16/16 18:39
--- NOTE | 2016-12-16 18:17 | CP.PCM.PN ---
Subjective - Date & Time of Evaluation Date of Evaluation: 12/16/16 Time of Evaluation: 10:40 - Subjective Subjective: Less pain in her legs, no fevers overnight. Objective - Vital Signs/Intake and Output Vital Signs (last 24 hours): Temp Pulse Resp BP Pulse Ox 9.5 F L 105 H 20 95/60 L 94 L 12/16/16 00:00 12/16/16 06:00 12/16/16 00:00 12/16/16 00:00 12/16/16 00:00 Intake and Output: 12/16/16 12/16/16 06:59 18:59 Intake Total 600 Output Total 400 Balance 200 - Medications Medications: Current Medications Alprazolam (Xanax) 0.25 mg PO Q8 PRN; Protocol PRN Reason: Anxiety Stop: 12/20/16 22:46 Apixaban (Eliquis) 5 mg PO BID [facility] PRN Reason: Protocol Last Admin: 12/15/16 17:29 Dose: 5 mg Betamethasone/Clotrimazole (Lotrisone) 1 gm TOP BID [facility] Last Admin: 12/15/16 22:41 Dose: 1 applic Digoxin (Lanoxin) 0.125 mg PO 1400 [facility] Last Admin: 12/15/16 15:12 Dose: 0.125 mg Ferrous Sulfate (Feosol) 324 mg PO DAILY [facility] Last Admin: 12/15/16 09:21 Dose: 324 mg Furosemide (Lasix) 40 mg IVP BID [facility] Last Admin: 12/15/16 17:29 Dose: 40 mg Cefazolin Sodium (Ancef 1gm In Ns) 1 gm in 100 mls @ 100 mls/hr IVPB Q8 [facility] PRN Reason: Protocol Last Admin: 12/16/16 06:40 Dose: 100 mls/hr Insulin Detemir (Levemir) 20 unit SC HS [facility] Last Admin: 12/15/16 22:40 Dose: 20 unit Insulin Human Lispro (Humalog Low) 0 units SC ACHS [facility] PRN Reason: Protocol Last Admin: 12/16/16 08:12 Dose: Not Given Levothyroxine Sodium (Synthroid) 125 mcg PO DAILY [facility] Last Admin: 12/15/16 09:22 Dose: 125 mcg Losartan Potassium (Cozaar) 12.5 mg PO DAILY [facility] Last Admin: 12/15/16 12:16 Dose: 12.5 mg Metoprolol Tartrate (Lopressor) 12.5 mg PO BID [facility] Last Admin: 12/15/16 17:30 Dose: 12.5 mg Ondansetron HCl (Zofran Inj) 4 mg IVP Q4H PRN PRN Reason: Nausea/Vomiting Pantoprazole Sodium (Protonix Ec Tab) 40 mg PO 0600 [facility] Last Admin: 12/16/16 06:39 Dose: 40 mg Polysaccharide Iron Complex (Ferrex-150) 150 mg PO DAILY [facility] Last Admin: 12/15/16 09:21 Dose: 150 mg Spironolactone (Aldactone) 25 mg PO BID [facility] Last Admin: 12/15/16 17:30 Dose: 25 mg Tolvaptan (Samsca) 15 mg PO DAILY [facility] Tramadol HCl (Ultram) 50 mg PO Q8 PRN PRN Reason: Pain, moderate (4-7) Last Admin: 12/14/16 10:35 Dose: 50 mg - Labs Labs: 12/15/16 09:40 12/15/16 09:40 PT 11.9 Seconds (9.9-11.8) H 12/13/16 16:30 INR 1.10 (0.93-1.08) H 12/13/16 16:30 APTT 27.1 Seconds (23.7-30.8) 12/13/16 16:30 - Constitutional Appears: Non-toxic, No Acute Distress - Head Exam Head Exam: NORMAL INSPECTION - ENT Exam ENT Exam: Mucous Membranes Moist - Neck Exam Neck Exam: absent: Meningismus - Respiratory Exam Respiratory Exam: Decreased Breath Sounds - Cardiovascular Exam Cardiovascular Exam: +S1, +S2 - GI/Abdominal Exam GI & Abdominal Exam: Soft. absent: Tenderness - Extremities Exam Extremities Exam: Pedal Edema Assessment and Plan - Assessment and Plan (Free Text) Plan: Assessment bilateral lower extremity swelling, consider venous stasis in a patient with chronic congestive heart failure, R/O superimposed cellulitis, R/O DVT history of lower UTI with Klebsiella and Pseudomonas associated with Witt catheter S/P severe sepsis S/P hypoxic ventilator-dependent respiratory failure probably due to bilateral lower lobe healthcare-associated pneumonia history of hyperglycemic, hyperosmolar state with acute pancreatitis history of VRE in the urine - probably asymptomatic bacteriuria chronic congestive heart failure due to cardiomyopathy history of healthcare-associated pneumonia, right middle lobe history of bilateral healthcare-associated pneumonia S/P acute cholecystitis, S/P laparoscopic cholecystectomy CAD DM HTN history of migraines bipolar disorder Plan continue Cefazolin day 3; when ready for discharge, can be switched to PO doxycycline and augmentin will continue to monitor clinically
--- NOTE | 2016-12-16 21:17 | PN ---
DATE: 12/16/2016 SUBJECTIVE: The patient has no complaints of any chest pain. No shortness of breath or headache. PHYSICAL EXAMINATION: VITAL SIGNS: Temperature is 97.4, pulse of 110, blood pressure 119/70, and respirations 20. GENERAL: The patient is lying in bed, flat, comfortable. HEENT: No oral lesion. Anicteric sclerae. Moist mucosa. NECK: No JVD, adenopathy, or thyromegaly. CARDIOVASCULAR: S1 and S2, regular. No murmurs, rubs, or gallops. LUNGS: Clear to auscultation bilaterally. No wheeze, rales, or rhonchi. ABDOMEN: Bowel sounds are positive, soft, nontender and nondistended. EXTREMITIES: Lower extremities has 2+ edema. LABORATORY DATA: Chemistry shows sodium of 131 and creatinine is 0.9. ASSESSMENT: 1. Hyponatremia. 2. Acute congestive heart failure secondary to systolic dysfunction. 3. Hypothyroidism. 4. Anemia, iron deficiency type. 5. Atrial fibrillation, on Eliquis. 6. Diabetes type 2. PLAN: The patient is currently comfortable. She has improvement of her sodium. She is going to continue with Eliquis for her anticoagulation. She is on digoxin for her atrial fibrillation. She is on Lasix 40 mg b.i.d., this will be continued for her low extremity edema. She is on tolvaptan for her hyponatremia as well. She is eating well. She will have repeat blood work done tomorrow and to follow her sodium. José Miguel Cannon MD
[2016-12-16] MEDS: Insulin Detemir 100 units/ml Vial (Levemir) SC SCH (22:32)
[2016-12-17] MEDS ORDERED: Oxycodone/Acetaminophen 5/325 mg Tab PO ONE (02:12)
[2016-12-17] MEDS: ceFAZolin 1 gm in NS 1 GM/100 ML BAG IVPB SCH ×3 (06:00→22:00)
[2016-12-17] MEDS: Pantoprazole 40 mg EC Tab PO SCH (06:00)
[2016-12-17 06:58] LABS: HEMATOCRIT 38.2 % (36.0-48.0); MEAN CORPUSCULAR HEMOGLOBIN 28.2 pg (25.0-35.0); MEAN CORPUSCULAR HGB CONC 32.7 g/dl (31.0-37.0); MEAN PLATELET VOLUME 9.5 fl (7.0-11.0); RED CELL DISTRIBUTION WIDTH 20.9 % (11.5-14.5); WHITE BLOOD COUNT 9.5 10^3/ul (4.5-11.0)
[2016-12-17 07:17] LABS: ALB/GLOB RATIO 1.1 (1.1-1.8); ALKALINE PHOSPHATASE 143 U/L (38-126); ALT/SGPT 32 U/L (7-56); AST/SGOT 28 U/L (14-36); BILIRUBIN,TOTAL 0.5 mg/dL (0.2-1.3); BLOOD UREA NITROGEN 42 mg/dL (7-21); CALCIUM 9.3 mg/dL (8.4-10.5); CARBON DIOXIDE 29 mmol/L (21-33); CHLORIDE 96 mmol/L (98-107); GFR AFRICAN-AMERICAN > 60; GLUCOSE,RANDOM 134 mg/dL (70-110); SODIUM 135 mmol/L (132-148); TOTAL PROTEIN 6.8 g/dL (5.8-8.3)
[2016-12-17] MEDS: Insulin Lispro (humaLOG) LOW Coverage SC SCH ×4 (07:53→21:56)
[2016-12-17] MEDS: Iron Complex Polysacch 150mg Cap PO SCH (09:37)
[2016-12-17] MEDS: Levothyroxine 125 MCG TAB PO SCH (09:37)
[2016-12-17] MEDS: Tolvaptan 15 MG TAB PO SCH (09:42)
[2016-12-17] MEDS: Clotrimazole/Betamethasone Cream(15 gm) TOP SCH ×2 (09:42→17:54)
[2016-12-17] MEDS: Digoxin 125 mcg (0.125 mg) Tab PO SCH (13:34)
--- NOTE | 2016-12-17 18:23 | CP.PCM.PN ---
Subjective - Date & Time of Evaluation Date of Evaluation: 12/17/16 Time of Evaluation: 10:50 - Subjective Subjective: Patient is somewhat anxious. Feels her legs are better, no fevers overnight. Objective - Vital Signs/Intake and Output Vital Signs (last 24 hours): Temp Pulse Resp BP Pulse Ox 97.4 F L 110 H 20 119/70 96 12/16/16 17:10 12/16/16 17:10 12/16/16 17:10 12/16/16 18:05 12/16/16 17:10 Intake and Output: 12/16/16 12/16/16 06:59 18:59 Intake Total 600 Output Total 400 Balance 200 - Medications Medications: Current Medications Alprazolam (Xanax) 0.25 mg PO Q8 PRN; Protocol PRN Reason: Anxiety Stop: 12/20/16 22:46 Apixaban (Eliquis) 5 mg PO BID [facility] PRN Reason: Protocol Last Admin: 12/16/16 18:05 Dose: 5 mg Betamethasone/Clotrimazole (Lotrisone) 1 gm TOP BID [facility] Last Admin: 12/16/16 18:08 Dose: 1 applic Digoxin (Lanoxin) 0.125 mg PO 1400 [facility] Last Admin: 12/16/16 14:50 Dose: 0.125 mg Ferrous Sulfate (Feosol) 324 mg PO DAILY [facility] Last Admin: 12/16/16 10:30 Dose: 324 mg Furosemide (Lasix) 40 mg IVP BID [facility] Last Admin: 12/16/16 18:05 Dose: 40 mg Cefazolin Sodium (Ancef 1gm In Ns) 1 gm in 100 mls @ 100 mls/hr IVPB Q8 [facility] PRN Reason: Protocol Last Admin: 12/16/16 14:51 Dose: 100 mls/hr Insulin Detemir (Levemir) 20 unit SC HS [facility] Last Admin: 12/15/16 22:40 Dose: 20 unit Insulin Human Lispro (Humalog Low) 0 units SC ACHS [facility] PRN Reason: Protocol Last Admin: 12/16/16 18:06 Dose: 2 units Levothyroxine Sodium (Synthroid) 125 mcg PO DAILY [facility] Last Admin: 12/16/16 10:29 Dose: 125 mcg Losartan Potassium (Cozaar) 12.5 mg PO DAILY [facility] Last Admin: 12/16/16 10:31 Dose: Not Given Metoprolol Tartrate (Lopressor) 12.5 mg PO BID [facility] Last Admin: 12/16/16 18:08 Dose: Not Given Ondansetron HCl (Zofran Inj) 4 mg IVP Q4H PRN PRN Reason: Nausea/Vomiting Pantoprazole Sodium (Protonix Ec Tab) 40 mg PO 0600 [facility] Last Admin: 12/16/16 06:39 Dose: 40 mg Polysaccharide Iron Complex (Ferrex-150) 150 mg PO DAILY [facility] Last Admin: 12/16/16 10:30 Dose: 150 mg Spironolactone (Aldactone) 25 mg PO BID [facility] Last Admin: 12/16/16 18:05 Dose: Not Given Spironolactone (Aldactone) 50 mg PO BID [facility] Last Admin: 12/16/16 18:05 Dose: 50 mg Tolvaptan (Samsca) 15 mg PO DAILY [facility] Last Admin: 12/16/16 10:29 Dose: 15 mg Tramadol HCl (Ultram) 50 mg PO Q8 PRN PRN Reason: Pain, moderate (4-7) Last Admin: 12/16/16 18:13 Dose: 50 mg - Labs Labs: 12/15/16 09:40 12/15/16 09:40 PT 11.9 Seconds (9.9-11.8) H 12/13/16 16:30 INR 1.10 (0.93-1.08) H 12/13/16 16:30 APTT 27.1 Seconds (23.7-30.8) 12/13/16 16:30 - Constitutional Appears: Non-toxic, No Acute Distress - Head Exam Head Exam: NORMAL INSPECTION - ENT Exam ENT Exam: Mucous Membranes Moist - Neck Exam Neck Exam: absent: Meningismus - Respiratory Exam Respiratory Exam: Decreased Breath Sounds - Cardiovascular Exam Cardiovascular Exam: +S1, +S2 - GI/Abdominal Exam GI & Abdominal Exam: Soft. absent: Tenderness - Extremities Exam Additional comments: both legs with decreased swelling Assessment and Plan - Assessment and Plan (Free Text) Plan: Assessment bilateral lower extremity swelling, consider venous stasis in a patient with chronic congestive heart failure, R/O superimposed cellulitis, R/O DVT history of lower UTI with Klebsiella and Pseudomonas associated with Witt catheter S/P severe sepsis S/P hypoxic ventilator-dependent respiratory failure probably due to bilateral lower lobe healthcare-associated pneumonia history of hyperglycemic, hyperosmolar state with acute pancreatitis history of VRE in the urine - probably asymptomatic bacteriuria chronic congestive heart failure due to cardiomyopathy history of healthcare-associated pneumonia, right middle lobe history of bilateral healthcare-associated pneumonia S/P acute cholecystitis, S/P laparoscopic cholecystectomy CAD DM HTN history of migraines bipolar disorder Plan continue Cefazolin day 4; when ready for discharge, can be switched to PO doxycycline and augmentin will continue to monitor clinically
--- NOTE | 2016-12-17 18:25 | PN ---
SUBJECTIVE: The patient denies chest pain. She is experiencing bilateral leg pain. PHYSICAL EXAMINATION: VITAL SIGNS: Blood pressure 128/80, heart rate is , temperature 97 and respiration 22. HEENT: Facial edema. CHEST: Absent breath sounds over the bases with right basal bronchial breathing. HEART: S1 and S2 regular. EXTREMITIES: Bilateral leg cellulitis with 3+ edema. LABORATORY DATA: Hemoglobin and hematocrit, white count, and platelet counts are within normal limit. SMA-7: Sodium 135, potassium 4, chloride 96, CO2 is 29, glucose 134, BUN 42, and creatinine 0.9. ASSESSMENT: 1. Anasarca. 2. Biventricular failure. 3. Right subclavian vein deep venous thrombosis. 4. Bilateral leg cellulitis. 5. Prerenal azotemia. RECOMMENDATIONS: Continue current Aldactone which was increased to 50 mg twice a day, Cozaar 12.5 mg once a day, Eliquis 5 mg twice a day and digoxin 0.125 mg once a day, Lopressor 12.5 mg twice a day. Continue current IV Lasix at 40 mg twice a day; however, it maybe reduced if there is worsening of the BUN and creatinine. Cesar Kinney MD
--- NOTE | 2016-12-17 18:28 | CP.PCM.PN ---
<Christiano Lopes - Last Filed: 12/17/16 19:13> Subjective - Date & Time of Evaluation Date of Evaluation: 12/17/16 Time of Evaluation: 08:00 - Subjective Subjective: Christiano Lopes DO, PGY-1, Hospitalist Service Patient seen and examined at bedside. Patient reports feeling comfortable, but with mild-moderate LE pain. Nurse reports no events overnight. Patient denies and CP, SOB, N/V/D. No fevers overnight. Objective - Vital Signs/Intake and Output Vital Signs (last 24 hours): Temp Pulse Resp BP Pulse Ox 97.7 F 113 H 20 111/67 97 12/17/16 17:38 12/17/16 17:38 12/17/16 17:38 12/17/16 17:38 12/17/16 17:38 Intake and Output: 12/17/16 12/17/16 06:59 18:59 Intake Total 540 Balance 540 - Medications Medications: Current Medications Alprazolam (Xanax) 0.25 mg PO Q8 PRN; Protocol PRN Reason: Anxiety Stop: 12/20/16 22:46 Last Admin: 12/17/16 12:20 Dose: 0.25 mg Apixaban (Eliquis) 5 mg PO BID [facility] PRN Reason: Protocol Last Admin: 12/17/16 17:18 Dose: 5 mg Betamethasone/Clotrimazole (Lotrisone) 1 gm TOP BID [facility] Last Admin: 12/17/16 17:54 Dose: 1 applic Digoxin (Lanoxin) 0.125 mg PO 1400 [facility] Last Admin: 12/17/16 13:34 Dose: 0.125 mg Ferrous Sulfate (Feosol) 324 mg PO DAILY [facility] Last Admin: 12/17/16 09:37 Dose: 324 mg Furosemide (Lasix) 40 mg IVP BID [facility] Last Admin: 12/17/16 17:18 Dose: 40 mg Cefazolin Sodium (Ancef 1gm In Ns) 1 gm in 100 mls @ 100 mls/hr IVPB Q8 [facility] PRN Reason: Protocol Last Admin: 12/17/16 13:33 Dose: 100 mls/hr Insulin Detemir (Levemir) 20 unit SC HS [facility] Last Admin: 12/16/16 22:32 Dose: 20 unit Insulin Human Lispro (Humalog Low) 0 units SC ACHS [facility] PRN Reason: Protocol Last Admin: 12/17/16 17:31 Dose: 3 units Levothyroxine Sodium (Synthroid) 125 mcg PO DAILY [facility] Last Admin: 12/17/16 09:37 Dose: 125 mcg Losartan Potassium (Cozaar) 12.5 mg PO DAILY [facility] Last Admin: 12/17/16 09:37 Dose: 12.5 mg Metoprolol Tartrate (Lopressor) 12.5 mg PO BID [facility] Last Admin: 12/17/16 17:18 Dose: 12.5 mg Ondansetron HCl (Zofran Inj) 4 mg IVP Q4H PRN PRN Reason: Nausea/Vomiting Pantoprazole Sodium (Protonix Ec Tab) 40 mg PO 0600 [facility] Last Admin: 12/17/16 06:00 Dose: 40 mg Polysaccharide Iron Complex (Ferrex-150) 150 mg PO DAILY [facility] Last Admin: 12/17/16 09:37 Dose: Not Given Spironolactone (Aldactone) 25 mg PO BID [facility] Last Admin: 12/17/16 17:19 Dose: 25 mg Spironolactone (Aldactone) 50 mg PO BID [facility] Last Admin: 12/17/16 17:18 Dose: 50 mg Tolvaptan (Samsca) 15 mg PO DAILY [facility] Last Admin: 12/17/16 09:42 Dose: 15 mg Tramadol HCl (Ultram) 50 mg PO Q8 PRN PRN Reason: Pain, moderate (4-7) Last Admin: 12/16/16 18:13 Dose: 50 mg - Labs Labs: 12/17/16 06:30 12/17/16 06:30 PT 11.9 Seconds (9.9-11.8) H 12/13/16 16:30 INR 1.10 (0.93-1.08) H 12/13/16 16:30 APTT 27.1 Seconds (23.7-30.8) 12/13/16 16:30 - Constitutional Appears: Well, Non-toxic - Head Exam Head Exam: ATRAUMATIC, NORMOCEPHALIC - Eye Exam Eye Exam: EOMI, Normal appearance, PERRL - ENT Exam ENT Exam: Mucous Membranes Moist, Normal Oropharynx - Neck Exam Neck Exam: Normal Inspection. absent: Lymphadenopathy - Respiratory Exam Respiratory Exam: Rales, NORMAL BREATHING PATTERN - Cardiovascular Exam Cardiovascular Exam: RRR, +S1, +S2 - Extremities Exam Extremities Exam: Pedal Edema. absent: Calf Tenderness Additional comments: LE decreased swelling - Back Exam Back Exam: NORMAL INSPECTION - Neurological Exam Neurological Exam: Alert, Awake, CN II-XII Intact, Oriented x3 - Psychiatric Exam Psychiatric exam: Normal Affect, Normal Mood - Skin Skin Exam: Dry, Intact, Normal Color, Warm Assessment and Plan - Assessment and Plan (Free Text) Assessment: 51 y/o F with PMH of DM2, CHF with EF of 30%, HTN, non-ischemic cardiomyopathy, chronic pleural effusion, DVT, Recurrent PE on Eliquis, hypothyroidism, and schizophrenia presents with CHF exacerbation and cellulitis. CXR appears to show b/l pulmonary infiltrates in the setting of elevated BNP. Pt also had b/l lower extremity US which was negative for DVT. Pt will have consults placed to Cardiology and ID. Pt will be admitted for IV medications and further monitoring of her symptoms. Plan: 51 y/o F with PMH of DM2, CHF with EF of 30%, HTN, non-ischemic cardiomyopathy, chronic pleural effusion, DVT, Recurrent PE on Eliquis, hypothyroidism, and schizophrenia presents with CHF exacerbation and cellulitis. 1. CHF exacerbation Lasix 40 mg daily Spironolactone 50 mg BID, Lopressor, and Digoxin continued Recent Echo showed EF of 30% Cardiology consulted, Dr. Kinney Strict I's and O's Daily weights Fluid restriction Nephrology consulted, Dr. French 2. Cellulitis Cefazolin daily, will change based on blood cultures. Appears to be chronic LE edema with possible superimposed bacterial infection. Per ID Dr. Bean, upon discharge patient can be sent home on PO doxycycline and Augmentin, appreciate rec's. 3. DM Home Levemir resumed Will added ISS for coverage Recent HgA1c 11.5 4. A-fib Home Lopressor continued 5. Recurrent PE Continue Eliquis LE US negative for DVT 6. Hypothyroidism Continue Synthroid 7. PPX Protonix Eliquis Heidi <Katherine Barragan A - Last Filed: 12/18/16 06:44> Objective - Vital Signs/Intake and Output Vital Signs (last 24 hours): Temp Pulse Resp BP Pulse Ox 97.7 F 125 H 20 111/67 97 12/17/16 17:38 12/17/16 18:00 12/17/16 17:38 12/17/16 17:38 12/17/16 17:38 Intake and Output: 12/17/16 12/18/16 18:59 06:59 Intake Total 120 Balance 120 - Medications Medications: Current Medications Alprazolam (Xanax) 0.25 mg PO Q8 PRN; Protocol PRN Reason: Anxiety Stop: 12/20/16 22:46 Last Admin: 12/17/16 12:20 Dose: 0.25 mg Apixaban (Eliquis) 5 mg PO BID [facility] PRN Reason: Protocol Last Admin: 12/17/16 17:18 Dose: 5 mg Betamethasone/Clotrimazole (Lotrisone) 1 gm TOP BID [facility] Last Admin: 12/17/16 17:54 Dose: 1 applic Digoxin (Lanoxin) 0.125 mg PO 1400 [facility] Last Admin: 12/17/16 13:34 Dose: 0.125 mg Ferrous Sulfate (Feosol) 324 mg PO DAILY [facility] Last Admin: 12/17/16 09:37 Dose: 324 mg Furosemide (Lasix) 40 mg IVP BID [facility] Last Admin: 12/17/16 17:18 Dose: 40 mg Cefazolin Sodium (Ancef 1gm In Ns) 1 gm in 100 mls @ 100 mls/hr IVPB Q8 [facility] PRN Reason: Protocol Last Admin: 12/18/16 05:19 Dose: 100 mls/hr Insulin Detemir (Levemir) 20 unit SC HS [facility] Last Admin: 12/17/16 22:00 Dose: 20 unit Insulin Human Lispro (Humalog Low) 0 units SC ACHS [facility] PRN Reason: Protocol Last Admin: 12/17/16 21:56 Dose: Not Given Levothyroxine Sodium (Synthroid) 125 mcg PO DAILY [facility] Last Admin: 12/17/16 09:37 Dose: 125 mcg Losartan Potassium (Cozaar) 12.5 mg PO DAILY [facility] Last Admin: 12/17/16 09:37 Dose: 12.5 mg Metoprolol Tartrate (Lopressor) 12.5 mg PO BID [facility] Last Admin: 12/17/16 17:18 Dose: 12.5 mg Ondansetron HCl (Zofran Inj) 4 mg IVP Q4H PRN PRN Reason: Nausea/Vomiting Pantoprazole Sodium (Protonix Ec Tab) 40 mg PO 0600 [facility] Last Admin: 12/17/16 06:00 Dose: 40 mg Polysaccharide Iron Complex (Ferrex-150) 150 mg PO DAILY [facility] Last Admin: 12/17/16 09:37 Dose: Not Given Spironolactone (Aldactone) 25 mg PO BID [facility] Last Admin: 12/17/16 17:19 Dose: 25 mg Spironolactone (Aldactone) 50 mg PO BID [facility] Last Admin: 12/17/16 17:18 Dose: 50 mg Tolvaptan (Samsca) 15 mg PO DAILY [facility] Last Admin: 12/17/16 09:42 Dose: 15 mg Tramadol HCl (Ultram) 50 mg PO Q8 PRN PRN Reason: Pain, moderate (4-7) Last Admin: 12/17/16 23:28 Dose: 50 mg - Labs Labs: 12/17/16 06:30 12/17/16 06:30 PT 11.9 Seconds (9.9-11.8) H 12/13/16 16:30 INR 1.10 (0.93-1.08) H 12/13/16 16:30 APTT 27.1 Seconds (23.7-30.8) 12/13/16 16:30 Attending/Attestation - Attestation I have personally seen and examined this patient.: Yes I have fully participated in the care of the patient.: Yes I have reviewed all pertinent clinical information, including history, physical exam and plan: Yes Notes (Text): 12/17/16 51 year old female with past medical history of systolic CHF, diabetes, hypertension, cardiomyopathy, DVT/PE on anticoagulation, hypothyroidism and schizophrenia presented with CHF exacerbation and LE cellulitis. Continue with iv lasix for diuresis. She is also on cozaar, lopressor and spironalactone. Cardiology is following the patient. Continue with iv antibiotics for LE cellulitis as per ID. She is on eliquis for history of DVT/PE and synthroid for hypothyroidism. Katherine Barragan MD Hospitalist.
[2016-12-17] MEDS: Insulin Detemir 100 units/ml Vial (Levemir) SC SCH (22:00)
[2016-12-18] MEDS: ceFAZolin 1 gm in NS 1 GM/100 ML BAG IVPB SCH ×3 (05:19→21:25)
[2016-12-18 06:34] LABS: HEMATOCRIT 39.3 % (36.0-48.0); MEAN CORPUSCULAR HGB CONC 32.6 g/dl (31.0-37.0); MEAN PLATELET VOLUME 9.5 fl (7.0-11.0); RED CELL DISTRIBUTION WIDTH 20.4 % (11.5-14.5); WHITE BLOOD COUNT 9.1 10^3/ul (4.5-11.0)
[2016-12-18 06:53] LABS: ALB/GLOB RATIO 1.1 (1.1-1.8); ALKALINE PHOSPHATASE 156 U/L (38-126); ALT/SGPT 31 U/L (7-56); AST/SGOT 27 U/L (14-36); BILIRUBIN,TOTAL 0.4 mg/dL (0.2-1.3); BLOOD UREA NITROGEN 37 mg/dL (7-21); CALCIUM 8.9 mg/dL (8.4-10.5); CARBON DIOXIDE 24 mmol/L (21-33); CHLORIDE 97 mmol/L (98-107); GFR AFRICAN-AMERICAN > 60; GLUCOSE,RANDOM 139 mg/dL (70-110); SODIUM 132 mmol/L (132-148); TOTAL PROTEIN 6.5 g/dL (5.8-8.3)
[2016-12-18] MEDS: Insulin Lispro (humaLOG) LOW Coverage SC SCH ×4 (07:27→22:32)
[2016-12-18] MEDS: Iron Complex Polysacch 150mg Cap PO SCH (09:14)
[2016-12-18] MEDS: Levothyroxine 125 MCG TAB PO SCH (09:15)
[2016-12-18] MEDS: Clotrimazole/Betamethasone Cream(15 gm) TOP SCH ×2 (09:16→17:58)
[2016-12-18] MEDS: Tolvaptan 15 MG TAB PO SCH (09:27)
[2016-12-18] MEDS: Digoxin 125 mcg (0.125 mg) Tab PO SCH (14:45)
--- NOTE | 2016-12-18 15:25 | CP.PCM.PN ---
<Christiano Lopes - Last Filed: 12/18/16 18:26> Subjective - Date & Time of Evaluation Date of Evaluation: 12/18/16 Time of Evaluation: 15:25 - Subjective Subjective: Christiano Lopes DO, PGY-1, Hospitalist Service Patient seen and examined at bedside. Patient reports feeling comfortable, but with mild-moderate LE pain. Nurse reports no events overnight. Patient denies and CP, SOB, N/V/D. No fevers overnight. Objective - Vital Signs/Intake and Output Vital Signs (last 24 hours): Temp Pulse Resp BP Pulse Ox 97.8 F 113 H 22 116/74 93 L 12/18/16 07:47 12/18/16 10:00 12/18/16 07:47 12/18/16 09:15 12/18/16 07:47 Intake and Output: 12/18/16 12/18/16 06:59 18:59 Intake Total 120 Balance 120 - Medications Medications: Current Medications Alprazolam (Xanax) 0.25 mg PO Q8 PRN; Protocol PRN Reason: Anxiety Stop: 12/20/16 22:46 Last Admin: 12/17/16 12:20 Dose: 0.25 mg Apixaban (Eliquis) 5 mg PO BID [facility] PRN Reason: Protocol Last Admin: 12/18/16 09:14 Dose: 5 mg Betamethasone/Clotrimazole (Lotrisone) 1 gm TOP BID [facility] Last Admin: 12/18/16 09:16 Dose: 1 applic Digoxin (Lanoxin) 0.125 mg PO 1400 [facility] Last Admin: 12/18/16 14:45 Dose: 0.125 mg Ferrous Sulfate (Feosol) 324 mg PO DAILY [facility] Last Admin: 12/18/16 09:15 Dose: 324 mg Furosemide (Lasix) 40 mg IVP BID [facility] Last Admin: 12/18/16 09:15 Dose: 40 mg Cefazolin Sodium (Ancef 1gm In Ns) 1 gm in 100 mls @ 100 mls/hr IVPB Q8 [facility] PRN Reason: Protocol Last Admin: 12/18/16 14:44 Dose: 100 mls/hr Insulin Detemir (Levemir) 20 unit SC HS [facility] Last Admin: 12/17/16 22:00 Dose: 20 unit Insulin Human Lispro (Humalog Low) 0 units SC ACHS [facility] PRN Reason: Protocol Last Admin: 12/18/16 12:22 Dose: 1 units Levothyroxine Sodium (Synthroid) 125 mcg PO DAILY [facility] Last Admin: 12/18/16 09:15 Dose: 125 mcg Losartan Potassium (Cozaar) 12.5 mg PO DAILY [facility] Last Admin: 12/18/16 09:15 Dose: 12.5 mg Metoprolol Tartrate (Lopressor) 12.5 mg PO BID [facility] Last Admin: 12/18/16 09:15 Dose: 12.5 mg Ondansetron HCl (Zofran Inj) 4 mg IVP Q4H PRN PRN Reason: Nausea/Vomiting Pantoprazole Sodium (Protonix Ec Tab) 40 mg PO 0600 [facility] Last Admin: 12/17/16 06:00 Dose: 40 mg Polysaccharide Iron Complex (Ferrex-150) 150 mg PO DAILY [facility] Last Admin: 12/18/16 09:14 Dose: 150 mg Spironolactone (Aldactone) 50 mg PO BID [facility] Last Admin: 12/18/16 09:14 Dose: 50 mg Tolvaptan (Samsca) 15 mg PO DAILY [facility] Last Admin: 12/18/16 09:27 Dose: 15 mg Tramadol HCl (Ultram) 50 mg PO Q8 PRN PRN Reason: Pain, moderate (4-7) Last Admin: 12/17/16 23:28 Dose: 50 mg - Labs Labs: 12/18/16 06:20 12/18/16 06:20 PT 11.9 Seconds (9.9-11.8) H 12/13/16 16:30 INR 1.10 (0.93-1.08) H 12/13/16 16:30 APTT 27.1 Seconds (23.7-30.8) 12/13/16 16:30 - Head Exam Head Exam: ATRAUMATIC, NORMOCEPHALIC Additional comments: - Constitutional Appears: Well, Non-toxic - Head Exam Head Exam: ATRAUMATIC, NORMOCEPHALIC - Eye Exam Eye Exam: EOMI, Normal appearance, PERRL - ENT Exam ENT Exam: Mucous Membranes Moist, Normal Oropharynx - Neck Exam Neck Exam: Normal Inspection. absent: Lymphadenopathy - Respiratory Exam Respiratory Exam: Rales, NORMAL BREATHING PATTERN - Cardiovascular Exam Cardiovascular Exam: RRR, +S1, +S2 - Extremities Exam Extremities Exam: Pedal Edema. absent: Calf Tenderness Additional comments: LE decreased swelling - Back Exam Back Exam: NORMAL INSPECTION - Neurological Exam Neurological Exam: Alert, Awake, CN II-XII Intact, Oriented x3 - Psychiatric Exam Psychiatric exam: Normal Affect, Normal Mood - Skin Skin Exam: Dry, Intact, Normal Color, Warm - Eye Exam Eye Exam: EOMI, Normal appearance, PERRL - Neck Exam Neck Exam: Normal Inspection. absent: Lymphadenopathy, Thyromegaly - Respiratory Exam Respiratory Exam: Clear to Ausculation Bilateral, NORMAL BREATHING PATTERN. absent: Wheezes - Cardiovascular Exam Cardiovascular Exam: RRR, +S1, +S2 - GI/Abdominal Exam GI & Abdominal Exam: Soft, Normal Bowel Sounds. absent: Distended, Rigid, Rebound - Extremities Exam Extremities Exam: Full ROM, Normal Capillary Refill, Pedal Edema Additional comments: erythematosus - Back Exam Back Exam: NORMAL INSPECTION. absent: CVA tenderness (L), CVA tenderness (R) - Neurological Exam Neurological Exam: Alert, Awake, CN II-XII Intact, Oriented x3 - Psychiatric Exam Psychiatric exam: Normal Affect, Normal Mood - Skin Skin Exam: Dry, Intact, Normal Color, Warm Assessment and Plan - Assessment and Plan (Free Text) Assessment: 51 y/o F with PMH of DM2, CHF with EF of 30%, HTN, non-ischemic cardiomyopathy, chronic pleural effusion, DVT, Recurrent PE on Eliquis, hypothyroidism, and schizophrenia presents with CHF exacerbation and cellulitis. CXR appears to show b/l pulmonary infiltrates in the setting of elevated BNP. Pt also had b/l lower extremity US which was negative for DVT. Pt will have consults placed to Cardiology and ID. Pt will be admitted for IV medications and further monitoring of her symptoms. Plan: 1. CHF exacerbation Lasix 40 mg daily Spironolactone 50 mg BID, Lopressor, and Digoxin continued Recent Echo showed EF of 30% Cardiology consulted, Dr. Kinney Strict I's and O's Daily weights Fluid restriction Nephrology consulted, Dr. French 2. Cellulitis Cefazolin daily, will change based on blood cultures. Appears to be chronic LE edema with possible superimposed bacterial infection. Per ID Dr. Bean, upon discharge patient can be sent home on PO doxycycline and Augmentin, appreciate rec's. 3. DM Home Levemir resumed Will added ISS for coverage Recent HgA1c 11.5 4. A-fib Home Lopressor continued 5. Recurrent PE Continue Eliquis LE US negative for DVT 6. Hypothyroidism Continue Synthroid 7. PPX Protonix Eliquis Heidi <Katherine Barragan A - Last Filed: 12/18/16 18:47> Objective - Vital Signs/Intake and Output Vital Signs (last 24 hours): Temp Pulse Resp BP Pulse Ox 98.1 F 103 H 19 109/60 100 12/18/16 16:47 12/18/16 16:47 12/18/16 16:47 12/18/16 17:52 12/18/16 16:47 Intake and Output: 12/18/16 12/18/16 06:59 18:59 Intake Total 120 600 Balance 120 600 - Medications Medications: Current Medications Alprazolam (Xanax) 0.25 mg PO Q8 PRN; Protocol PRN Reason: Anxiety Stop: 12/20/16 22:46 Last Admin: 12/17/16 12:20 Dose: 0.25 mg Apixaban (Eliquis) 5 mg PO BID [facility] PRN Reason: Protocol Last Admin: 12/18/16 17:52 Dose: 5 mg Betamethasone/Clotrimazole (Lotrisone) 1 gm TOP BID [facility] Last Admin: 12/18/16 17:58 Dose: 1 applic Digoxin (Lanoxin) 0.125 mg PO 1400 [facility] Last Admin: 12/18/16 14:45 Dose: 0.125 mg Ferrous Sulfate (Feosol) 324 mg PO DAILY [facility] Last Admin: 12/18/16 09:15 Dose: 324 mg Furosemide (Lasix) 40 mg IVP Q8H [facility] Last Admin: 12/18/16 17:52 Dose: 40 mg Cefazolin Sodium (Ancef 1gm In Ns) 1 gm in 100 mls @ 100 mls/hr IVPB Q8 [facility] PRN Reason: Protocol Last Admin: 12/18/16 14:44 Dose: 100 mls/hr Insulin Detemir (Levemir) 20 unit SC HS [facility] Last Admin: 12/17/16 22:00 Dose: 20 unit Insulin Human Lispro (Humalog Low) 0 units SC ACHS [facility] PRN Reason: Protocol Last Admin: 12/18/16 17:52 Dose: 2 units Levothyroxine Sodium (Synthroid) 125 mcg PO DAILY [facility] Last Admin: 12/18/16 09:15 Dose: 125 mcg Losartan Potassium (Cozaar) 12.5 mg PO DAILY [facility] Last Admin: 12/18/16 09:15 Dose: 12.5 mg Metoprolol Tartrate (Lopressor) 12.5 mg PO BID [facility] Last Admin: 12/18/16 17:52 Dose: 12.5 mg Ondansetron HCl (Zofran Inj) 4 mg IVP Q4H PRN PRN Reason: Nausea/Vomiting Pantoprazole Sodium (Protonix Ec Tab) 40 mg PO 0600 [facility] Last Admin: 12/17/16 06:00 Dose: 40 mg Polysaccharide Iron Complex (Ferrex-150) 150 mg PO DAILY [facility] Last Admin: 12/18/16 09:14 Dose: 150 mg Spironolactone (Aldactone) 50 mg PO BID [facility] Last Admin: 12/18/16 17:52 Dose: 50 mg Tolvaptan (Samsca) 15 mg PO DAILY [facility] Last Admin: 12/18/16 09:27 Dose: 15 mg Tramadol HCl (Ultram) 50 mg PO Q8 PRN PRN Reason: Pain, moderate (4-7) Last Admin: 12/17/16 23:28 Dose: 50 mg - Labs Labs: 12/18/16 06:20 12/18/16 06:20 PT 11.9 Seconds (9.9-11.8) H 12/13/16 16:30 INR 1.10 (0.93-1.08) H 12/13/16 16:30 APTT 27.1 Seconds (23.7-30.8) 12/13/16 16:30 Attending/Attestation - Attestation I have personally seen and examined this patient.: Yes I have fully participated in the care of the patient.: Yes I have reviewed all pertinent clinical information, including history, physical exam and plan: Yes Notes (Text): 12/18/16 18:45 51 year old female with past medical history of systolic CHF, diabetes, hypertension, cardiomyopathy, DVT/PE on anticoagulation, hypothyroidism and schizophrenia presented with CHF exacerbation and LE cellulitis. Continue with iv lasix and spironalactone for diuresis. She is also on cozaar and lopressor. She is being followed by cardiology and nephrology. Continue with iv antibiotics for LE cellulitis as per ID. She is on eliquis for history of DVT/PE. She is on synthroid for hypothyroidism. Katherine Barragan MD Hospitalist.
--- NOTE | 2016-12-18 16:47 | CP.PCM.PN ---
Subjective - Date & Time of Evaluation Date of Evaluation: 12/18/16 Time of Evaluation: 16:00 - Subjective Subjective: Patient reports difficulty bending knees, has weeping from legs; Objective - Vital Signs/Intake and Output Vital Signs (last 24 hours): Temp Pulse Resp BP Pulse Ox 97.8 F 113 H 22 116/74 93 L 12/18/16 07:47 12/18/16 10:00 12/18/16 07:47 12/18/16 09:15 12/18/16 07:47 Intake and Output: 12/18/16 12/18/16 06:59 18:59 Intake Total 120 600 Balance 120 600 - Medications Medications: Current Medications Alprazolam (Xanax) 0.25 mg PO Q8 PRN; Protocol PRN Reason: Anxiety Stop: 12/20/16 22:46 Last Admin: 12/17/16 12:20 Dose: 0.25 mg Apixaban (Eliquis) 5 mg PO BID [facility] PRN Reason: Protocol Last Admin: 12/18/16 09:14 Dose: 5 mg Betamethasone/Clotrimazole (Lotrisone) 1 gm TOP BID [facility] Last Admin: 12/18/16 09:16 Dose: 1 applic Digoxin (Lanoxin) 0.125 mg PO 1400 [facility] Last Admin: 12/18/16 14:45 Dose: 0.125 mg Ferrous Sulfate (Feosol) 324 mg PO DAILY [facility] Last Admin: 12/18/16 09:15 Dose: 324 mg Furosemide (Lasix) 40 mg IVP Q8H [facility] Cefazolin Sodium (Ancef 1gm In Ns) 1 gm in 100 mls @ 100 mls/hr IVPB Q8 [facility] PRN Reason: Protocol Last Admin: 12/18/16 14:44 Dose: 100 mls/hr Insulin Detemir (Levemir) 20 unit SC HS [facility] Last Admin: 12/17/16 22:00 Dose: 20 unit Insulin Human Lispro (Humalog Low) 0 units SC ACHS [facility] PRN Reason: Protocol Last Admin: 12/18/16 12:22 Dose: 1 units Levothyroxine Sodium (Synthroid) 125 mcg PO DAILY [facility] Last Admin: 12/18/16 09:15 Dose: 125 mcg Losartan Potassium (Cozaar) 12.5 mg PO DAILY [facility] Last Admin: 12/18/16 09:15 Dose: 12.5 mg Metoprolol Tartrate (Lopressor) 12.5 mg PO BID [facility] Last Admin: 12/18/16 09:15 Dose: 12.5 mg Ondansetron HCl (Zofran Inj) 4 mg IVP Q4H PRN PRN Reason: Nausea/Vomiting Pantoprazole Sodium (Protonix Ec Tab) 40 mg PO 0600 [facility] Last Admin: 12/17/16 06:00 Dose: 40 mg Polysaccharide Iron Complex (Ferrex-150) 150 mg PO DAILY [facility] Last Admin: 12/18/16 09:14 Dose: 150 mg Spironolactone (Aldactone) 50 mg PO BID [facility] Last Admin: 12/18/16 09:14 Dose: 50 mg Tolvaptan (Samsca) 15 mg PO DAILY [facility] Last Admin: 12/18/16 09:27 Dose: 15 mg Tramadol HCl (Ultram) 50 mg PO Q8 PRN PRN Reason: Pain, moderate (4-7) Last Admin: 12/17/16 23:28 Dose: 50 mg - Labs Labs: 12/18/16 06:20 12/18/16 06:20 PT 11.9 Seconds (9.9-11.8) H 12/13/16 16:30 INR 1.10 (0.93-1.08) H 12/13/16 16:30 APTT 27.1 Seconds (23.7-30.8) 12/13/16 16:30 - Constitutional Appears: Non-toxic, No Acute Distress - Head Exam Head Exam: NORMAL INSPECTION - Eye Exam Eye Exam: Normal appearance. absent: Scleral icterus - ENT Exam ENT Exam: Mucous Membranes Moist - Respiratory Exam Respiratory Exam: Clear to Ausculation Bilateral. absent: Rales, Rhonchi, Wheezes Additional comments: Decreased breath sounds as bases; - Cardiovascular Exam Cardiovascular Exam: Gallop, REGULAR RHYTHM, JVD, +S1, +S2 Additional comments: S3 present; - GI/Abdominal Exam GI & Abdominal Exam: Distended, Soft - Extremities Exam Extremities Exam: Normal Capillary Refill Additional comments: Severely edematous legs bilaterally; - Neurological Exam Neurological Exam: Alert, Awake - Psychiatric Exam Psychiatric exam: Normal Affect - Skin Skin Exam: Normal Color, Warm. absent: Cyanosis Additional comments: b/l leg weeping of skin Assessment and Plan (1) CHF exacerbation Assessment & Plan: Severely decompensated systolic CHF w/ MR; signs/symptoms are relatively chronic at this point; aldactone increased by primary team to 50 mg bid; still needs further diuresis so will attempt to increase frequency of IV lasix back to 40 mg q8h; Status: Acute (2) Pleural effusion Assessment & Plan: Improved on exam; continue with diuretics as above; Status: Acute (3) Hyponatremia Assessment & Plan: Improved with better glycemic control and on tolvaptan 15 mg daily; continue same; Status: Acute (4) Anemia Assessment & Plan: Improved; iron deficient; continue PO iron; Status: Acute (5) Hyperglycemia Assessment & Plan: Much improved; continue adequate glycemic control; Status: Resolved
--- NOTE | 2016-12-18 17:25 | PN ---
DATE: 12/18/2016 SUBJECTIVE: The patient is feeling chilly. She denies any chest pain. PHYSICAL EXAMINATION: VITAL SIGNS: Blood pressure 116/74, heart rate 115, temperature 97.8, and respiration 22. HEENT: Facial edema. CHEST: Bilateral bronchial breathing basally. HEART: S1 and S2 regular. EXTREMITIES: Bilateral leg cellulitis. LABORATORY DATA: Hemoglobin and hematocrit, white count, and platelet counts are within normal limit. Today 's blood sugar is 139. BUN and creatinine are 37 and 0.7 respectively. ASSESSMENT: 1. Dilated cardiomyopathy. 2. Bilateral leg cellulitis. 3. Bilateral pleural effusion. 4. Right subclavian thrombosis. 5. History of depression. RECOMMENDATIONS: Continue Aldactone 50 mg twice a day, Cozaar 12.5 mg daily, Eliquis 5 mg twice a day, Lanoxin 0.125 mg once a daily, Lasix 40 mg intravenous twice a day, Lopressor 12.5 mg twice a day, and Synthroid 125 mcg once a day. Cesar Kinney MD
[2016-12-18] MEDS: Insulin Detemir 100 units/ml Vial (Levemir) SC SCH (22:34)
[2016-12-19] MEDS: ceFAZolin 1 gm in NS 1 GM/100 ML BAG IVPB SCH ×3 (05:46→21:13)
[2016-12-19] MEDS: Pantoprazole 40 mg EC Tab PO SCH (05:46)
[2016-12-19 07:29] LABS: HEMATOCRIT 41.5 % (36.0-48.0); MEAN CELL VOLUME 86.1 fl (80.0-105.0); MEAN CORPUSCULAR HEMOGLOBIN 28.8 pg (25.0-35.0); MEAN CORPUSCULAR HGB CONC 33.5 g/dl (31.0-37.0); MEAN PLATELET VOLUME 9.7 fl (7.0-11.0); RED CELL DISTRIBUTION WIDTH 20.5 % (11.5-14.5); WHITE BLOOD COUNT 12.4 10^3/ul (4.5-11.0)
[2016-12-19 07:38] LABS: ALKALINE PHOSPHATASE 151 U/L (38-126); ALT/SGPT 28 U/L (7-56); AST/SGOT 25 U/L (14-36); BILIRUBIN,TOTAL 0.5 mg/dL (0.2-1.3); BLOOD UREA NITROGEN 41 mg/dL (7-21); CALCIUM 8.9 mg/dL (8.4-10.5); CARBON DIOXIDE 28 mmol/L (21-33); CHLORIDE 93 mmol/L (95-110); GFR AFRICAN-AMERICAN > 60; GLUCOSE,RANDOM 166 mg/dL (70-110); POTASSIUM 4.2 mmol/L (3.6-5.0); SODIUM 131 mmol/L (132-148); TOTAL PROTEIN 6.8 g/dL (5.8-8.3)
[2016-12-19] MEDS: Insulin Lispro (humaLOG) LOW Coverage SC SCH ×4 (08:40→22:06)
[2016-12-19] MEDS: Iron Complex Polysacch 150mg Cap PO SCH ×2 (09:55→10:07)
[2016-12-19] MEDS: Levothyroxine 125 MCG TAB PO SCH (09:56)
[2016-12-19] MEDS: Tolvaptan 15 MG TAB PO SCH (09:56)
[2016-12-19] MEDS: Clotrimazole/Betamethasone Cream(15 gm) TOP SCH ×2 (10:49→18:01)
--- NOTE | 2016-12-19 12:57 | PN ---
DATE: SUBJECTIVE: The patient still experiencing shortness of breath and bilateral leg pain and swelling. PHYSICAL EXAMINATION: VITAL SIGNS: Blood pressure 96/66, heart rate 104, temperature 97.4, respirations 22. HEENT: Facial edema. NECK: No JVD. CHEST: Bilateral rhonchial breath sounds basally. HEART: S1 and S2 regular. EXTREMITIES: 2+ pitting edema with cellulolytic changes of both lower extremities. LABORATORY DATA: White count is 12.4. Hemoglobin, hematocrit and platelet count are within normal limits. Today's BUN and creatinine, 41 and 0.8, glucose 156, sodium is 131. ASSESSMENT: 1. Dilated cardiomyopathy. 2. Bilateral leg cellulitis. 3. Bilateral pleural effusion. 4. Right subclavian vein thrombosis. 5. Prerenal azotemia. CONDITIONS: Continue Aldactone 50 mg twice a day, Cozaar 12.5 mg once a day, digoxin 0.125 mg once a day, Lopressor 12.5 twice a day, Synthroid 125 mcg once a day, IV Lasix 40 mg q. 8 hours. Continue IV Ancef 1 g q. 8 hours and Eliquis 5 mg twice a day. Cesar Kinney MD
--- NOTE | 2016-12-19 13:31 | CP.PCM.PN ---
Subjective - Date & Time of Evaluation Date of Evaluation: 12/19/16 Time of Evaluation: 10:50 - Subjective Subjective: Comfortable, not in distress, afebrile, less pain in the legs but still swollen. Objective - Vital Signs/Intake and Output Vital Signs (last 24 hours): Temp Pulse Resp BP Pulse Ox 97.4 F L 104 H 22 96/66 L 95 12/19/16 08:14 12/19/16 08:14 12/19/16 08:14 12/19/16 08:14 12/19/16 08:14 Intake and Output: 12/19/16 12/19/16 06:59 18:59 Intake Total 500 Balance 500 - Medications Medications: Current Medications Alprazolam (Xanax) 0.25 mg PO Q8 PRN; Protocol PRN Reason: Anxiety Stop: 12/20/16 22:46 Last Admin: 12/18/16 22:35 Dose: 0.25 mg Apixaban (Eliquis) 5 mg PO BID [facility] PRN Reason: Protocol Last Admin: 12/18/16 17:52 Dose: 5 mg Betamethasone/Clotrimazole (Lotrisone) 1 gm TOP BID [facility] Last Admin: 12/18/16 17:58 Dose: 1 applic Digoxin (Lanoxin) 0.125 mg PO 1400 [facility] Last Admin: 12/18/16 14:45 Dose: 0.125 mg Ferrous Sulfate (Feosol) 324 mg PO DAILY [facility] Last Admin: 12/18/16 09:15 Dose: 324 mg Furosemide (Lasix) 40 mg IVP Q8H [facility] Last Admin: 12/19/16 01:10 Dose: 40 mg Cefazolin Sodium (Ancef 1gm In Ns) 1 gm in 100 mls @ 100 mls/hr IVPB Q8 [facility] PRN Reason: Protocol Last Admin: 12/19/16 05:46 Dose: 100 mls/hr Insulin Detemir (Levemir) 20 unit SC HS [facility] Last Admin: 12/18/16 22:34 Dose: 20 unit Insulin Human Lispro (Humalog Low) 0 units SC ACHS [facility] PRN Reason: Protocol Last Admin: 12/19/16 08:40 Dose: Not Given Levothyroxine Sodium (Synthroid) 125 mcg PO DAILY [facility] Last Admin: 12/18/16 09:15 Dose: 125 mcg Losartan Potassium (Cozaar) 12.5 mg PO DAILY [facility] Last Admin: 12/18/16 09:15 Dose: 12.5 mg Metoprolol Tartrate (Lopressor) 12.5 mg PO BID [facility] Last Admin: 12/18/16 17:52 Dose: 12.5 mg Ondansetron HCl (Zofran Inj) 4 mg IVP Q4H PRN PRN Reason: Nausea/Vomiting Pantoprazole Sodium (Protonix Ec Tab) 40 mg PO 0600 [facility] Last Admin: 12/19/16 05:46 Dose: 40 mg Polysaccharide Iron Complex (Ferrex-150) 150 mg PO DAILY [facility] Last Admin: 12/18/16 09:14 Dose: 150 mg Spironolactone (Aldactone) 50 mg PO BID [facility] Last Admin: 12/18/16 17:52 Dose: 50 mg Tolvaptan (Samsca) 15 mg PO DAILY [facility] Last Admin: 12/18/16 09:27 Dose: 15 mg Tramadol HCl (Ultram) 50 mg PO Q8 PRN PRN Reason: Pain, moderate (4-7) Last Admin: 12/18/16 22:32 Dose: 50 mg - Labs Labs: 12/19/16 07:24 12/19/16 07:24 PT 11.9 Seconds (9.9-11.8) H 12/13/16 16:30 INR 1.10 (0.93-1.08) H 12/13/16 16:30 APTT 27.1 Seconds (23.7-30.8) 12/13/16 16:30 - Constitutional Appears: Non-toxic, No Acute Distress - ENT Exam ENT Exam: Mucous Membranes Moist - Neck Exam Neck Exam: absent: Meningismus - Respiratory Exam Respiratory Exam: Decreased Breath Sounds - Cardiovascular Exam Cardiovascular Exam: +S1, +S2 - GI/Abdominal Exam GI & Abdominal Exam: Soft. absent: Tenderness - Extremities Exam Additional comments: both legs with edema and erythema but no increased warmth anymore Assessment and Plan - Assessment and Plan (Free Text) Plan: Assessment bilateral lower extremity swelling, consider venous stasis in a patient with chronic congestive heart failure, with probable superimposed cellulitis, clinically improving history of lower UTI with Klebsiella and Pseudomonas associated with Witt catheter S/P severe sepsis S/P hypoxic ventilator-dependent respiratory failure probably due to bilateral lower lobe healthcare-associated pneumonia history of hyperglycemic, hyperosmolar state with acute pancreatitis history of VRE in the urine - probably asymptomatic bacteriuria chronic congestive heart failure due to cardiomyopathy history of healthcare-associated pneumonia, right middle lobe history of bilateral healthcare-associated pneumonia S/P acute cholecystitis, S/P laparoscopic cholecystectomy CAD DM HTN history of migraines bipolar disorder Plan on Cefazolin day 6; when ready for discharge, can be switched to PO doxycycline and augmentin; can complete 7 days of therapy will continue to monitor clinically
[2016-12-19] MEDS: Digoxin 125 mcg (0.125 mg) Tab PO SCH (14:04)
--- NOTE | 2016-12-19 15:07 | PN ---
SUBJECTIVE: The patient is mildly short of breath. She is still experiencing bilateral leg pain and leg swelling. PHYSICAL EXAMINATION VITAL SIGNS: Blood pressure 108/80, heart rate 113, temperature 98.5, respirations 20. HEENT: Facial edema. CHEST: Right basal bronchial breathing. HEART: S1 and S2 regular. EXTREMITIES: 2 to 3+ pitting edema. ASSESSMENT: 1. Exacerbation of congestive heart failure. 2. Bilateral leg cellulitis. 3. Consider right middle lobe pneumonia. 4. Uncontrolled diabetes mellitus. 5. History of depression. RECOMMENDATIONS: Continue Aldactone 25 mg twice a day, Cozaar at 12.5 mg once a day, Eliquis 5 mg twice a day, digoxin 0.25 mg daily. Case was discussed with who will follow basic chemistry. Cesar Kinney MD
--- NOTE | 2016-12-19 18:28 | CP.PCM.PN ---
Subjective - Date & Time of Evaluation Date of Evaluation: 12/19/16 Time of Evaluation: 11:00 - Subjective Subjective: Still complaining of leg tightness; urinating more since increasing diuretic frequency; Objective - Vital Signs/Intake and Output Vital Signs (last 24 hours): Temp Pulse Resp BP Pulse Ox 97.5 F L 110 H 20 111/62 99 12/19/16 16:00 12/19/16 16:00 12/19/16 16:00 12/19/16 16:57 12/19/16 16:00 Intake and Output: 12/19/16 12/19/16 06:59 18:59 Intake Total 500 960 Balance 500 960 - Medications Medications: Current Medications Alprazolam (Xanax) 0.25 mg PO Q8 PRN; Protocol PRN Reason: Anxiety Stop: 12/20/16 22:46 Last Admin: 12/18/16 22:35 Dose: 0.25 mg Apixaban (Eliquis) 5 mg PO BID [facility] PRN Reason: Protocol Last Admin: 12/19/16 18:00 Dose: 5 mg Betamethasone/Clotrimazole (Lotrisone) 1 gm TOP BID [facility] Last Admin: 12/19/16 18:01 Dose: 1 applic Digoxin (Lanoxin) 0.125 mg PO 1400 [facility] Last Admin: 12/19/16 14:04 Dose: 0.125 mg Ferrous Sulfate (Feosol) 324 mg PO DAILY [facility] Last Admin: 12/19/16 09:55 Dose: 324 mg Furosemide (Lasix) 40 mg IVP Q8H [facility] Last Admin: 12/19/16 16:57 Dose: 40 mg Cefazolin Sodium (Ancef 1gm In Ns) 1 gm in 100 mls @ 100 mls/hr IVPB Q8 [facility] PRN Reason: Protocol Last Admin: 12/19/16 14:03 Dose: 100 mls/hr Insulin Detemir (Levemir) 20 unit SC HS [facility] Last Admin: 12/18/16 22:34 Dose: 20 unit Insulin Human Lispro (Humalog Low) 0 units SC ACHS [facility] PRN Reason: Protocol Last Admin: 12/19/16 16:56 Dose: 3 units Levothyroxine Sodium (Synthroid) 125 mcg PO DAILY [facility] Last Admin: 12/19/16 09:56 Dose: 125 mcg Losartan Potassium (Cozaar) 12.5 mg PO DAILY [facility] Last Admin: 12/19/16 09:55 Dose: 12.5 mg Metoprolol Tartrate (Lopressor) 12.5 mg PO BID [facility] Last Admin: 12/19/16 18:00 Dose: 12.5 mg Ondansetron HCl (Zofran Inj) 4 mg IVP Q4H PRN PRN Reason: Nausea/Vomiting Pantoprazole Sodium (Protonix Ec Tab) 40 mg PO 0600 [facility] Last Admin: 12/19/16 05:46 Dose: 40 mg Polysaccharide Iron Complex (Ferrex-150) 150 mg PO DAILY [facility] Last Admin: 12/19/16 10:07 Dose: Not Given Spironolactone (Aldactone) 50 mg PO BID [facility] Last Admin: 12/19/16 18:00 Dose: 50 mg Tolvaptan (Samsca) 15 mg PO DAILY [facility] Last Admin: 12/19/16 09:56 Dose: 15 mg Tramadol HCl (Ultram) 50 mg PO Q8 PRN PRN Reason: Pain, moderate (4-7) Last Admin: 12/18/16 22:32 Dose: 50 mg - Labs Labs: 12/19/16 07:24 12/19/16 07:24 PT 11.9 Seconds (9.9-11.8) H 12/13/16 16:30 INR 1.10 (0.93-1.08) H 12/13/16 16:30 APTT 27.1 Seconds (23.7-30.8) 12/13/16 16:30 - Constitutional Appears: Non-toxic, No Acute Distress - Head Exam Head Exam: NORMAL INSPECTION - Eye Exam Eye Exam: Normal appearance - ENT Exam ENT Exam: Mucous Membranes Moist - Respiratory Exam Additional comments: Decreased breath sounds at b/l bases; - Cardiovascular Exam Cardiovascular Exam: Gallop, JVD, +S1, +S2 Additional comments: S3 present; - GI/Abdominal Exam GI & Abdominal Exam: Soft - Extremities Exam Additional comments: anasarca; - Neurological Exam Neurological Exam: Alert, Awake - Skin Skin Exam: Warm. absent: Cyanosis Assessment and Plan (1) CHF exacerbation Assessment & Plan: Severe systolic CHF w/ MR; loop diuretic frequency increased to IV 40 mg q8h yesterday; still in failure but relatively compensated since she's not moving around; continue current meds; f/u with cardio for further recs; Status: Acute (2) Pleural effusion Assessment & Plan: Moderate to large; still present on current exam; continue current diuretics; Status: Acute (3) Hyponatremia Assessment & Plan: Due to severe CHF; stable on tolvaptan 15 mg daily, continue same; Status: Acute (4) Anemia Assessment & Plan: Hgb improving significantly; unclear if this represents abnormal erythrocytosis ; monitor; may need heme input; Status: Acute (5) Hyperglycemia Status: Resolved
--- NOTE | 2016-12-19 21:06 | CP.PCM.PN ---
<Christiano Lopes - Last Filed: 12/19/16 21:20> Subjective - Date & Time of Evaluation Date of Evaluation: 12/19/16 Time of Evaluation: 21:03 - Subjective Subjective: Christiano Lopes DO, PGY-1, Hospitalist Service Patient states her leg a weeping a lot and thus there are towels on the floor catching the seeping. Patient denies any ambulation as of since I last saw her. Objective - Vital Signs/Intake and Output Vital Signs (last 24 hours): Temp Pulse Resp BP Pulse Ox 97.5 F L 110 H 20 111/62 99 12/19/16 16:00 12/19/16 16:00 12/19/16 16:00 12/19/16 16:57 12/19/16 16:00 Intake and Output: 12/19/16 12/20/16 18:59 06:59 Intake Total 960 Balance 960 - Medications Medications: Current Medications Alprazolam (Xanax) 0.25 mg PO Q8 PRN; Protocol PRN Reason: Anxiety Stop: 12/20/16 22:46 Last Admin: 12/18/16 22:35 Dose: 0.25 mg Apixaban (Eliquis) 5 mg PO BID [facility] PRN Reason: Protocol Last Admin: 12/19/16 18:00 Dose: 5 mg Betamethasone/Clotrimazole (Lotrisone) 1 gm TOP BID [facility] Last Admin: 12/19/16 18:01 Dose: 1 applic Digoxin (Lanoxin) 0.125 mg PO 1400 [facility] Last Admin: 12/19/16 14:04 Dose: 0.125 mg Ferrous Sulfate (Feosol) 324 mg PO DAILY [facility] Last Admin: 12/19/16 09:55 Dose: 324 mg Furosemide (Lasix) 40 mg IVP Q8H [facility] Last Admin: 12/19/16 16:57 Dose: 40 mg Cefazolin Sodium (Ancef 1gm In Ns) 1 gm in 100 mls @ 100 mls/hr IVPB Q8 [facility] PRN Reason: Protocol Last Admin: 12/19/16 14:03 Dose: 100 mls/hr Insulin Detemir (Levemir) 20 unit SC HS [facility] Last Admin: 12/18/16 22:34 Dose: 20 unit Insulin Human Lispro (Humalog Low) 0 units SC ACHS [facility] PRN Reason: Protocol Last Admin: 12/19/16 16:56 Dose: 3 units Levothyroxine Sodium (Synthroid) 125 mcg PO DAILY [facility] Last Admin: 12/19/16 09:56 Dose: 125 mcg Losartan Potassium (Cozaar) 12.5 mg PO DAILY [facility] Last Admin: 12/19/16 09:55 Dose: 12.5 mg Metoprolol Tartrate (Lopressor) 12.5 mg PO BID [facility] Last Admin: 12/19/16 18:00 Dose: 12.5 mg Ondansetron HCl (Zofran Inj) 4 mg IVP Q4H PRN PRN Reason: Nausea/Vomiting Pantoprazole Sodium (Protonix Ec Tab) 40 mg PO 0600 [facility] Last Admin: 12/19/16 05:46 Dose: 40 mg Polysaccharide Iron Complex (Ferrex-150) 150 mg PO DAILY [facility] Last Admin: 12/19/16 10:07 Dose: Not Given Spironolactone (Aldactone) 50 mg PO BID [facility] Last Admin: 12/19/16 18:00 Dose: 50 mg Tolvaptan (Samsca) 15 mg PO DAILY [facility] Last Admin: 12/19/16 09:56 Dose: 15 mg Tramadol HCl (Ultram) 50 mg PO Q8 PRN PRN Reason: Pain, moderate (4-7) Last Admin: 12/18/16 22:32 Dose: 50 mg - Labs Labs: 12/19/16 07:24 12/19/16 07:24 PT 11.9 Seconds (9.9-11.8) H 12/13/16 16:30 INR 1.10 (0.93-1.08) H 12/13/16 16:30 APTT 27.1 Seconds (23.7-30.8) 12/13/16 16:30 - Constitutional Appears: Non-toxic, No Acute Distress - Head Exam Head Exam: ATRAUMATIC, NORMOCEPHALIC - Eye Exam Eye Exam: EOMI, Normal appearance - ENT Exam ENT Exam: Mucous Membranes Moist, Normal Oropharynx - Neck Exam Neck Exam: Full ROM, Normal Inspection - Respiratory Exam Respiratory Exam: Clear to Ausculation Bilateral, NORMAL BREATHING PATTERN - Cardiovascular Exam Cardiovascular Exam: REGULAR RHYTHM, RRR, +S1, +S2 - GI/Abdominal Exam GI & Abdominal Exam: Soft, Normal Bowel Sounds. absent: Pulsatile Mass, Rebound - Psychiatric Exam Psychiatric exam: Agitated, Flat Affect - Skin Skin Exam: Dry, Intact, Normal Color, Warm Assessment and Plan - Assessment and Plan (Free Text) Assessment: 51 y/o F with PMH of DM2, CHF with EF of 30%, HTN, non-ischemic cardiomyopathy, chronic pleural effusion, DVT, Recurrent PE on Eliquis, hypothyroidism, and schizophrenia presents with CHF exacerbation and cellulitis. CXR appears to show b/l pulmonary infiltrates in the setting of elevated BNP. Pt also had b/l lower extremity US which was negative for DVT. Pt will have consults placed to Cardiology and ID. Pt will be admitted for IV medications and further monitoring of her symptoms. Plan: Plan 1. CHF exacerbation Lasix 40 mg q8h Spironolactone 50 mg BID, Lopressor, and Digoxin continued Strict I's and O's Daily weights Fluid restriction Nephrology consulted, Dr. [facility] 2. Cellulitis Cefazolin daily, will change based on blood cultures. Appears to be chronic LE edema with possible superimposed bacterial infection. Per ID Dr. Bean, upon discharge patient can be sent home on PO doxycycline and Augmentin, appreciate rec's. 3. DM Home Levemir resumed Will added ISS for coverage Recent HgA1c 11.5 4. A-fib Home Lopressor continued 5. Recurrent PE Continue Eliquis LE US negative for DVT 6. Hypothyroidism Continue Synthroid 7. PPX Protonix Eliquis Zofran 8) Schizophrenia and labile mood - Seroquel 100 mg HS <Dion COOPER,Mau - Last Filed: 12/20/16 16:12> Objective - Vital Signs/Intake and Output Vital Signs (last 24 hours): Temp Pulse Resp BP Pulse Ox 97.6 F 114 H 20 126/82 98 12/20/16 07:55 12/20/16 10:44 12/20/16 07:55 12/20/16 10:44 12/20/16 07:55 Intake and Output: 12/20/16 12/20/16 06:59 18:59 Intake Total 120 875 Balance 120 875 - Medications Medications: Current Medications Alprazolam (Xanax) 0.25 mg PO Q8 PRN; Protocol PRN Reason: Anxiety Stop: 12/20/16 22:46 Last Admin: 12/19/16 21:13 Dose: 0.25 mg Apixaban (Eliquis) 5 mg PO BID [facility] PRN Reason: Protocol Last Admin: 12/20/16 10:44 Dose: 5 mg Betamethasone/Clotrimazole (Lotrisone) 1 gm TOP BID [facility] Last Admin: 12/20/16 10:50 Dose: 1 applic Digoxin (Lanoxin) 0.125 mg PO 1400 [facility] Last Admin: 12/19/16 14:04 Dose: 0.125 mg Ferrous Sulfate (Feosol) 324 mg PO DAILY [facility] Last Admin: 12/20/16 10:44 Dose: 324 mg Furosemide (Lasix) 40 mg IVP Q8H [facility] Last Admin: 12/20/16 10:44 Dose: 40 mg Insulin Detemir (Levemir) 20 unit SC HS [facility] Last Admin: 12/19/16 21:14 Dose: 20 unit Insulin Human Lispro (Humalog Low) 0 units SC [facility] PRN Reason: Protocol Last Admin: 12/20/16 12:54 Dose: 2 units Levothyroxine Sodium (Synthroid) 125 mcg PO DAILY [facility] Last Admin: 12/20/16 10:50 Dose: 125 mcg Losartan Potassium (Cozaar) 12.5 mg PO DAILY [facility] Last Admin: 12/20/16 10:44 Dose: 12.5 mg Metoprolol Tartrate (Lopressor) 12.5 mg PO BID [facility] Last Admin: 12/20/16 10:43 Dose: 12.5 mg Ondansetron HCl (Zofran Inj) 4 mg IVP Q4H PRN PRN Reason: Nausea/Vomiting Pantoprazole Sodium (Protonix Ec Tab) 40 mg PO 0600 [facility] Last Admin: 12/20/16 06:01 Dose: 40 mg Polysaccharide Iron Complex (Ferrex-150) 150 mg PO DAILY [facility] Last Admin: 12/20/16 10:44 Dose: 150 mg Quetiapine Fumarate (Seroquel) 100 mg PO [facility] PRN Reason: Protocol Last Admin: 12/19/16 22:31 Dose: Not Given Spironolactone (Aldactone) 50 mg PO BID [facility] Last Admin: 12/19/16 18:00 Dose: 50 mg Tolvaptan (Samsca) 15 mg PO DAILY [facility] Last Admin: 12/20/16 10:44 Dose: 15 mg Tramadol HCl (Ultram) 50 mg PO Q8 PRN PRN Reason: Pain, moderate (4-7) Last Admin: 12/18/16 22:32 Dose: 50 mg - Labs Labs: 12/20/16 06:55 12/20/16 06:55 PT 11.9 Seconds (9.9-11.8) H 12/13/16 16:30 INR 1.10 (0.93-1.08) H 12/13/16 16:30 APTT 27.1 Seconds (23.7-30.8) 12/13/16 16:30 Attending/Attestation - Attestation I have personally seen and examined this patient.: Yes I have fully participated in the care of the patient.: Yes I have reviewed all pertinent clinical information, including history, physical exam and plan: Yes Notes (Text): 12/20/16 16:09 Patient was seen and examined with medical equipment repairer. 51 y/o F with PMH of DM2, CHF with EF of 30%, HTN, non-ischemic cardiomyopathy, chronic pleural effusion, DVT, Recurrent PE on Eliquis, hypothyroidism, and schizophrenia was admitted with acute on chronic systolic CHF exacerbation and cellulitis. Patient cellulitis is likely chronic , was treated with Ancef, discuss with ID, antibiotics can be discontinued.She still has significant leg edema , will continue IV lasix, will monitor BUN/Creatinin and electrolyte. Management plan was discussed in detail with patient Education was provided.
[2016-12-19] MEDS: Insulin Detemir 100 units/ml Vial (Levemir) SC SCH (21:14)
[2016-12-20] MEDS ORDERED: QUEtiapine 300 mg XR Tab PO SCH (06:00)
[2016-12-20] MEDS: ceFAZolin 1 gm in NS 1 GM/100 ML BAG IVPB SCH (06:01)
[2016-12-20] MEDS: Pantoprazole 40 mg EC Tab PO SCH (06:01)
[2016-12-20 07:10] LABS: HEMATOCRIT 43.8 % (36.0-48.0); MEAN CELL VOLUME 85.5 fl (80.0-105.0); MEAN CORPUSCULAR HEMOGLOBIN 28.3 pg (25.0-35.0); MEAN CORPUSCULAR HGB CONC 33.1 g/dl (31.0-37.0); MEAN PLATELET VOLUME 9.4 fl (7.0-11.0); RED CELL DISTRIBUTION WIDTH 20.2 % (11.5-14.5); WHITE BLOOD COUNT 9.4 10^3/ul (4.5-11.0)
[2016-12-20 07:20] LABS: ALB/GLOB RATIO 1.1 (1.1-1.8); ALKALINE PHOSPHATASE 151 U/L (38-126); ALT/SGPT 18 U/L (7-56); AST/SGOT 33 U/L (14-36); BILIRUBIN,TOTAL 0.6 mg/dL (0.2-1.3); BLOOD UREA NITROGEN 39 mg/dL (7-21); CALCIUM 9.2 mg/dL (8.4-10.5); CARBON DIOXIDE 25 mmol/L (21-33); CHLORIDE 95 mmol/L (98-107); GFR AFRICAN-AMERICAN > 60; GLUCOSE,RANDOM 144 mg/dL (70-110); SODIUM 132 mmol/L (132-148); TOTAL PROTEIN 7.3 g/dL (5.8-8.3)
[2016-12-20] MEDS: Insulin Lispro (humaLOG) LOW Coverage SC SCH ×4 (08:23→21:59)
[2016-12-20] MEDS: Iron Complex Polysacch 150mg Cap PO SCH (10:44)
[2016-12-20] MEDS: Tolvaptan 15 MG TAB PO SCH (10:44)
[2016-12-20] MEDS: Levothyroxine 125 MCG TAB PO SCH (10:50)
[2016-12-20] MEDS: Clotrimazole/Betamethasone Cream(15 gm) TOP SCH ×2 (10:50→17:16)
--- NOTE | 2016-12-20 13:53 | CP.PCM.PN ---
Subjective - Date & Time of Evaluation Date of Evaluation: 12/20/16 Time of Evaluation: 10:20 - Subjective Subjective: Patient is c/o weakness, Afebrile, still has significant leg swelling, Denies chest pain or palpitation Objective - Vital Signs/Intake and Output Vital Signs (last 24 hours): Temp Pulse Resp BP Pulse Ox 97.6 F 114 H 20 126/82 98 12/20/16 07:55 12/20/16 10:44 12/20/16 07:55 12/20/16 10:44 12/20/16 07:55 Intake and Output: 12/20/16 12/20/16 06:59 18:59 Intake Total 120 Balance 120 - Medications Medications: Current Medications Alprazolam (Xanax) 0.25 mg PO Q8 PRN; Protocol PRN Reason: Anxiety Stop: 12/20/16 22:46 Last Admin: 12/19/16 21:13 Dose: 0.25 mg Apixaban (Eliquis) 5 mg PO BID [facility] PRN Reason: Protocol Last Admin: 12/20/16 10:44 Dose: 5 mg Betamethasone/Clotrimazole (Lotrisone) 1 gm TOP BID [facility] Last Admin: 12/20/16 10:50 Dose: 1 applic Digoxin (Lanoxin) 0.125 mg PO 1400 [facility] Last Admin: 12/19/16 14:04 Dose: 0.125 mg Ferrous Sulfate (Feosol) 324 mg PO DAILY [facility] Last Admin: 12/20/16 10:44 Dose: 324 mg Furosemide (Lasix) 40 mg IVP Q8H [facility] Last Admin: 12/20/16 10:44 Dose: 40 mg Insulin Detemir (Levemir) 20 unit SC HS [facility] Last Admin: 12/19/16 21:14 Dose: 20 unit Insulin Human Lispro (Humalog Low) 0 units SC ACHS [facility] PRN Reason: Protocol Last Admin: 12/20/16 12:54 Dose: 2 units Levothyroxine Sodium (Synthroid) 125 mcg PO DAILY [facility] Last Admin: 12/20/16 10:50 Dose: 125 mcg Losartan Potassium (Cozaar) 12.5 mg PO DAILY [facility] Last Admin: 12/20/16 10:44 Dose: 12.5 mg Metoprolol Tartrate (Lopressor) 12.5 mg PO BID [facility] Last Admin: 12/20/16 10:43 Dose: 12.5 mg Ondansetron HCl (Zofran Inj) 4 mg IVP Q4H PRN PRN Reason: Nausea/Vomiting Pantoprazole Sodium (Protonix Ec Tab) 40 mg PO 0600 [facility] Last Admin: 12/20/16 06:01 Dose: 40 mg Polysaccharide Iron Complex (Ferrex-150) 150 mg PO DAILY [facility] Last Admin: 12/20/16 10:44 Dose: 150 mg Quetiapine Fumarate (Seroquel) 100 mg PO HS [facility] PRN Reason: Protocol Last Admin: 12/19/16 22:31 Dose: Not Given Spironolactone (Aldactone) 50 mg PO BID [facility] Last Admin: 12/19/16 18:00 Dose: 50 mg Tolvaptan (Samsca) 15 mg PO DAILY [facility] Last Admin: 12/20/16 10:44 Dose: 15 mg Tramadol HCl (Ultram) 50 mg PO Q8 PRN PRN Reason: Pain, moderate (4-7) Last Admin: 12/18/16 22:32 Dose: 50 mg - Labs Labs: 12/20/16 06:55 12/20/16 06:55 PT 11.9 Seconds (9.9-11.8) H 12/13/16 16:30 INR 1.10 (0.93-1.08) H 12/13/16 16:30 APTT 27.1 Seconds (23.7-30.8) 12/13/16 16:30 - Constitutional Appears: Non-toxic, No Acute Distress - Head Exam Head Exam: NORMAL INSPECTION, NORMOCEPHALIC - Eye Exam Eye Exam: Normal appearance Pupil Exam: NORMAL ACCOMODATION - Neck Exam Neck Exam: Normal Inspection - Respiratory Exam Respiratory Exam: Clear to Ausculation Bilateral, NORMAL BREATHING PATTERN - Cardiovascular Exam Additional comments: S 1 and S 2 are irregularly irregular - GI/Abdominal Exam GI & Abdominal Exam: Soft, Normal Bowel Sounds - Extremities Exam Additional comments: Edema is positive, venous ulcer no cynosis or clubbing - Neurological Exam Neurological Exam: Alert, Awake, CN II-XII Intact (non focal) Assessment and Plan - Assessment and Plan (Free Text) Plan: 51 y/o F with PMH of DM2, CHF with EF of 30%, HTN, non-ischemic cardiomyopathy, chronic pleural effusion, DVT, Recurrent PE on Eliquis, hypothyroidism, and schizophrenia was admitted with acute on chronic systolic CHF exacerbation and cellulitis. Patient cellulitis is likely chronic , was treated with Ancef 1.CHF exacerbation EF 35% Patient still has significant leg edema, We will continue IV Lasix 40 mg q8h Continue Losartan Spironolactone is on hold due to K 0f 5.0, If potassium remain stable, can be restarted with decreasing dose. Continue monitoring BUN/Creatinin and electrolyte 2. DM Blood sugars are running high, we will increase Leveemir to 22 units Continue sliding scale coverage We will monitor and adjust medications 3. A-fib Rate is controlled with Lopressor , on anticoagulation with Apixiban 4. Recurrent PE Continue Eliquis LE US negative for DVT 5. Hypothyroidism Continue Synthroid 6) Schizophrenia and labile mood - Seroquel 100 mg HS Prognosis is guarded. Management plan was discussed in detail with patient Education was provided.
--- NOTE | 2016-12-20 18:18 | PN ---
DATE: 12/20/2016 SUBJECTIVE: The patient is in bed, in no acute distress, nontoxic. PHYSICAL EXAMINATION: VITAL SIGNS: Temperature is 97, blood pressure is 120/80, respiratory rate of 20, heart rate of 112. HEENT: Unremarkable. NECK: Supple. LUNGS: Decreased breath sounds. HEART: Normal S1 and S2. ABDOMEN Soft, nontender. LABORATORY EXAMINATION: Reveals a white count of 9.4, hemoglobin of 14, platelets of 358. Chemistries reveal the BUN of 39, creatinine of 0.7. Urinalysis is noted. Microbiology reveals the blood cultures negative. Urine cultures are negative. MEDICATIONS: Review of medications reveal the patient to be on cefazolin. ASSESSMENT AND PLAN: This is a 51-year-old with bilateral lower legs edema and erythema, venous stasis. The patient with chronic congestive heart failure and probable superimposed cellulitis, clinically improved. The patient is status post severe sepsis, hypoxic, ventilatory dependent respiratory failure and day #7 of cefazolin. For discharge may use p.o. doxycycline and p.o. Augmentin and completed 7 days already. The patient said today is the day #7. Upon discharge we may just discontinue the antibiotics. Yehuda Valentino MD
[2016-12-20] MEDS: Insulin Detemir 100 units/ml Vial (Levemir) SC SCH (21:59)
--- NOTE | 2016-12-20 22:15 | CP.PCM.PN ---
Subjective - Date & Time of Evaluation Date of Evaluation: 12/20/16 Time of Evaluation: 22:00 - Subjective Subjective: Reports difficulty breathing this morning, improved after getting out of bed and into chair; Objective - Vital Signs/Intake and Output Vital Signs (last 24 hours): Temp Pulse Resp BP Pulse Ox 97.6 F 91 H 20 110/56 L 98 12/20/16 07:55 12/20/16 18:00 12/20/16 07:55 12/20/16 17:14 12/20/16 07:55 Intake and Output: 12/20/16 12/21/16 18:59 06:59 Intake Total 875 Balance 875 - Medications Medications: Current Medications Alprazolam (Xanax) 0.25 mg PO Q8 PRN; Protocol PRN Reason: Anxiety Stop: 12/20/16 22:46 Last Admin: 12/19/16 21:13 Dose: 0.25 mg Apixaban (Eliquis) 5 mg PO BID [facility] PRN Reason: Protocol Last Admin: 12/20/16 17:13 Dose: 5 mg Betamethasone/Clotrimazole (Lotrisone) 1 gm TOP BID [facility] Last Admin: 12/20/16 17:16 Dose: 1 applic Digoxin (Lanoxin) 0.125 mg PO 1400 [facility] Last Admin: 12/19/16 14:04 Dose: 0.125 mg Ferrous Sulfate (Feosol) 324 mg PO DAILY [facility] Last Admin: 12/20/16 10:44 Dose: 324 mg Furosemide (Lasix) 40 mg IVP Q8H [facility] Last Admin: 12/20/16 17:14 Dose: 40 mg Insulin Detemir (Levemir) 20 unit SC HS [facility] Last Admin: 12/20/16 21:59 Dose: 20 unit Insulin Human Lispro (Humalog Low) 0 units SC ACHS [facility] PRN Reason: Protocol Last Admin: 12/20/16 21:59 Dose: Not Given Levothyroxine Sodium (Synthroid) 125 mcg PO DAILY [facility] Last Admin: 12/20/16 10:50 Dose: 125 mcg Losartan Potassium (Cozaar) 12.5 mg PO DAILY [facility] Last Admin: 12/20/16 10:44 Dose: 12.5 mg Metoprolol Tartrate (Lopressor) 12.5 mg PO BID [facility] Last Admin: 12/20/16 17:14 Dose: 12.5 mg Ondansetron HCl (Zofran Inj) 4 mg IVP Q4H PRN PRN Reason: Nausea/Vomiting Pantoprazole Sodium (Protonix Ec Tab) 40 mg PO 0600 [facility] Last Admin: 12/20/16 06:01 Dose: 40 mg Polysaccharide Iron Complex (Ferrex-150) 150 mg PO DAILY [facility] Last Admin: 12/20/16 10:44 Dose: 150 mg Quetiapine Fumarate (Seroquel) 100 mg PO HS [facility] PRN Reason: Protocol Last Admin: 12/20/16 22:00 Dose: 100 mg Spironolactone (Aldactone) 50 mg PO BID [facility] Last Admin: 12/19/16 18:00 Dose: 50 mg Tolvaptan (Samsca) 15 mg PO DAILY [facility] Last Admin: 12/20/16 10:44 Dose: 15 mg Tramadol HCl (Ultram) 50 mg PO Q8 PRN PRN Reason: Pain, moderate (4-7) Last Admin: 12/18/16 22:32 Dose: 50 mg - Labs Labs: 12/20/16 06:55 12/20/16 06:55 PT 11.9 Seconds (9.9-11.8) H 12/13/16 16:30 INR 1.10 (0.93-1.08) H 12/13/16 16:30 APTT 27.1 Seconds (23.7-30.8) 12/13/16 16:30 - Constitutional Appears: No Acute Distress - Head Exam Head Exam: NORMAL INSPECTION - Eye Exam Eye Exam: Normal appearance. absent: Scleral icterus - ENT Exam ENT Exam: Mucous Membranes Moist - Respiratory Exam Respiratory Exam: absent: Rales Additional comments: Decreased basal breath sounds bilaterally; - Cardiovascular Exam Cardiovascular Exam: Gallop, REGULAR RHYTHM Additional comments: S3 present; - GI/Abdominal Exam GI & Abdominal Exam: Soft Additional comments: edematous abd wall; - Extremities Exam Additional comments: anasarca; unchanged; - Neurological Exam Neurological Exam: Alert, Awake - Skin Skin Exam: Warm. absent: Cyanosis Assessment and Plan (1) CHF exacerbation Assessment & Plan: Severely decompensated systolic CHF w/ MR; symptomatic and no improvement in edema despite aggressive diuresis; may need to consider inotropic support; -check digoxin level (due to high/normal K) Status: Acute (2) Pleural effusion Assessment & Plan: Bilateral effusions in setting of severe CHF; continue to attempt diuresis; Status: Acute (3) Hyponatremia Assessment & Plan: Due to severe CHF; being controlled with tolvaptan 15 mg daily, continue; Status: Acute (4) Anemia Assessment & Plan: Resolved; may be developing a secondary erythrocytosis due to hypoxemia; should check ABG PO2 on RA; Status: Acute (5) Hyperglycemia Status: Resolved (6) Prerenal azotemia Assessment & Plan: Due to aggressive diuresis although renal function appears preserved with stable creat; likely contributing to increasing K level (at higher end of normal ); continue diuresis but holding aldactone today and decreasing dose back to 25 mg bid; Status: Acute
[2016-12-21] MEDS: Pantoprazole 40 mg EC Tab PO SCH (05:01)
[2016-12-21 07:11] LABS: HEMATOCRIT 37.1 % (36.0-48.0); MEAN CELL VOLUME 85.5 fl (80.0-105.0); MEAN CORPUSCULAR HEMOGLOBIN 27.9 pg (25.0-35.0); MEAN CORPUSCULAR HGB CONC 32.6 g/dl (31.0-37.0); MEAN PLATELET VOLUME 10.7 fl (7.0-11.0); RED CELL DISTRIBUTION WIDTH 20.2 % (11.5-14.5); WHITE BLOOD COUNT 10.1 10^3/ul (4.5-11.0)
[2016-12-21 07:21] LABS: ALKALINE PHOSPHATASE 106 U/L (38-126); ALT/SGPT 20 U/L (7-56); AST/SGOT 50 U/L (14-36); BILIRUBIN,TOTAL 0.8 mg/dL (0.2-1.3); BLOOD UREA NITROGEN 36 mg/dL (7-21); CALCIUM 8.8 mg/dL (8.4-10.5); CARBON DIOXIDE 29 mmol/L (21-33); CHLORIDE 96 mmol/L (95-110); GFR AFRICAN-AMERICAN > 60; GLUCOSE,RANDOM 219 mg/dL (70-110); POTASSIUM 4.2 mmol/L (3.6-5.0); SODIUM 134 mmol/L (132-148); TOTAL PROTEIN 6.3 g/dL (5.8-8.3)
[2016-12-21] MEDS: Insulin Lispro (humaLOG) LOW Coverage SC SCH ×4 (08:30→22:00)
[2016-12-21] MEDS: Iron Complex Polysacch 150mg Cap PO SCH (11:27)
[2016-12-21] MEDS: Levothyroxine 125 MCG TAB PO SCH (11:27)
[2016-12-21] MEDS: Tolvaptan 15 MG TAB PO SCH (11:28)
[2016-12-21] MEDS: Clotrimazole/Betamethasone Cream(15 gm) TOP SCH ×2 (11:28→17:27)
[2016-12-21] MEDS: Digoxin 125 mcg (0.125 mg) Tab PO SCH (13:21)
--- NOTE | 2016-12-21 17:37 | CP.PCM.DIS ---
Provider - Provider Date of Admission: 12/13/16 21:51 Attending physician: Annmarie Amador MD Primary care physician: Richardson Roman MD Consults: Dr. Manolo Bean Time Spent in preparation of Discharge (in minutes): 33 Hospital Course - Lab Results Lab Results: Most Recent Lab Values WBC 10.1 10^3/ul (4.5-11.0) 12/21/16 06:15 RBC 4.34 10^6/uL (3.5-6.1) 12/21/16 06:15 Hgb 12.1 g/dL (12.0-16.0) D 12/21/16 06:15 Hct 37.1 % (36.0-48.0) 12/21/16 06:15 MCV 85.5 fl (80.0-105.0) 12/21/16 06:15 MCH 27.9 pg (25.0-35.0) 12/21/16 06:15 MCHC 32.6 g/dl (31.0-37.0) 12/21/16 06:15 RDW 20.2 % (11.5-14.5) H 12/21/16 06:15 Plt Count 433 10^3/uL (120.0-450.0) 12/21/16 06:15 MPV 10.7 fl (7.0-11.0) 12/21/16 06:15 Gran % 71.3 % (50.0-68.0) H 12/13/16 16:30 Lymph % (Auto) 16.7 % (22.0-35.0) L 12/13/16 16:30 [place] % (Auto) 9.5 % (1.0-6.0) H 12/13/16 16:30 Eos % (Auto) 2.2 % (1.5-5.0) 12/13/16 16:30 Baso % (Auto) 0.3 % (0.0-3.0) 12/13/16 16:30 Gran # 7.03 (1.4-6.5) H 12/13/16 16:30 Lymph # 1.7 (1.2-3.4) 12/13/16 16:30 [place] # 0.9 (0.1-0.6) H 12/13/16 16:30 Eos # 0.2 (0.0-0.7) 12/13/16 16:30 Baso # 0.03 K/mm3 (0.0-2.0) 12/13/16 16:30 ESR 20 mm/hr (0.0-20.0) 12/15/16 09:40 PT 11.9 Seconds (9.9-11.8) H 12/13/16 16:30 INR 1.10 (0.93-1.08) H 12/13/16 16:30 APTT 27.1 Seconds (23.7-30.8) 12/13/16 16:30 pO2 32 mm/Hg (30-55) 12/13/16 16:54 VBG pH 7.33 (7.32-7.43) 12/13/16 16:54 VBG pCO2 55.0 (40-60) 12/13/16 16:54 VBG HCO3 29.0 mmol/l (21-28) H 12/13/16 16:54 VBG Total CO2 30.7 mmol.L (22-28) H 12/13/16 16:54 VBG O2 Sat (Calc) 62.3 % (40-65) 12/13/16 16:54 VBG Base Excess 1.9 mmol/L (0.0-2.0) 12/13/16 16:54 VBG Potassium 4.1 mmol/L (3.6-5.2) 12/13/16 16:54 Sodium 128.0 mmol/L (132-148) L 12/13/16 16:54 Chloride 90.0 mmol/L (98-107) L 12/13/16 16:54 Glucose 424 mg/dl (65-105) H* D 12/13/16 16:54 Lactate 1.8 mmol/L (0.7-2.1) 12/13/16 16:54 FiO2 21.0 % 12/13/16 16:54 Sodium 134 mmol/L (132-148) 12/21/16 06:15 Potassium 4.2 mmol/L (3.6-5.0) 12/21/16 06:15 Chloride 96 mmol/L (95-110) 12/21/16 06:15 Carbon Dioxide 29 mmol/L (21-33) 12/21/16 06:15 Anion Gap 13 (10-20) 12/21/16 06:15 BUN 36 mg/dL (7-21) H 12/21/16 06:15 Creatinine 0.6 mg/dL (0.5-1.4) 12/21/16 06:15 Est GFR ( Amer) > 60 12/21/16 06:15 Est GFR (Non-Af Amer) > 60 12/21/16 06:15 POC Glucose (mg/dL) 269 mg/dL (65-110) H 12/21/16 16:13 Random Glucose 219 mg/dL (70-110) H 12/21/16 06:15 Calcium 8.8 mg/dL (8.4-10.5) 12/21/16 06:15 Iron 39 ug/dL (45-180) L 12/15/16 09:40 TIBC 342 ug/dL (265-497) 12/15/16 09:40 % Saturation 11 % (20-55) L 12/15/16 09:40 Ferritin 343.0 ng/mL 12/15/16 09:40 Total Bilirubin 0.8 mg/dL (0.2-1.3) 12/21/16 06:15 AST 50 U/L (14-36) H D 12/21/16 06:15 ALT 20 U/L (7-56) 12/21/16 06:15 Alkaline Phosphatase 106 U/L (38-126) 12/21/16 06:15 Lactate Dehydrogenase 371 U/L (333-699) 12/13/16 16:30 Total Creatine Kinase 20 U/L (35-230) L 12/13/16 16:30 Troponin I < 0.01 ng/mL 12/13/16 16:30 C-React Prot High Sens > 15.00 mg/L (1.00-3.00) H 12/15/16 09:40 NT-Pro-B Natriuret Pep 4640 pg/mL (0-450) H 12/13/16 16:30 Total Protein 6.3 g/dL (5.8-8.3) 12/21/16 06:15 Albumin 3.2 g/dL (3.0-4.8) 12/21/16 06:15 Globulin 3.1 gm/dL 12/21/16 06:15 Albumin/Globulin Ratio 1.0 (1.1-1.8) L 12/21/16 06:15 Free T4 1.22 ng/dL (0.78-2.19) 12/15/16 09:40 TSH 3rd Generation 5.77 mIU/mL (0.46-4.68) H 12/15/16 09:40 Venous Blood Potassium 4.1 mmol/L (3.6-5.2) 12/13/16 16:54 Urine Color Yellow (YELLOW) 12/13/16 19:21 Urine Appearance Clear (CLEAR) 12/13/16 19:21 Urine pH 6.0 (4.7-8.0) 12/13/16 19:21 Ur Specific [place] 1.010 (1.005-1.035) 12/13/16 19:21 Urine Protein Negative mg/dL (<30 mg/dL) 12/13/16 19:21 Urine Glucose (UA) 500 mg/dL (NEGATIVE) H 12/13/16 19:21 Urine Ketones Negative mg/dL (NEGATIVE) 12/13/16 19:21 Urine Blood Negative (NEGATIVE) 12/13/16 19:21 Urine Nitrate Negative (NEGATIVE) 12/13/16 19:21 Urine Bilirubin Negative (NEGATIVE) 12/13/16 19:21 Urine Urobilinogen 0.2 E.U./dL (<1 E.U./dL) 12/13/16 19:21 Ur Leukocyte Esterase Negative Jason/uL (NEGATIVE) 12/13/16 19:21 Urine Osmolality 364 mosm/kg (50-645) 12/14/16 16:25 Ur Random Sodium 9 meq/L 12/14/16 16:25 Digoxin 0.7 ng/mL (0.8-2.0) L 12/21/16 06:15 - Hospital Course Hospital Course: 51 y/o F with PMH of DM2, CHF with EF of 30%, HTN, non-ischemic cardiomyopathy, chronic pleural effusion, DVT, Recurrent PE on Eliquis, hypothyroidism, and schizophrenia presents from rehab facility for b/l lower extremity swelling and redness for 1 week. Patient is a poor historian and much of information gather is from prior medical charts and staff. Pt states she began to develop redness and pain in her legs over 1 week ago and it progressively became worse. Pt is unsure if she received any treatment at her rehab facility. In addition, patient also began developing lower extremity edema and pain at this time. Pt was sent into the ED by rehab facility physician for further care. Pt admits to mild abdominal pain, which is chronic. Denies CP, SOB, N/V/D, fever, chills, recent sick contacts, syncope, lightheadedness, dysuria. Discharge Exam - Head Exam Head Exam: NORMAL INSPECTION Discharge Plan - Follow Up Plan Condition: STABLE Disposition: NURSING FACILITY MEDICAID CERT Instructions: Heart Failure (DC), Heart Failure (GEN), Pacemaker (DC), Pacemaker (GEN), Pulmonary Edema (DC), Pulmonary Edema (GEN), Ascites (DC), Ascites (GEN) Referrals: Richardson Roman MD [Primary Care Provider] -
--- NOTE | 2016-12-21 18:11 | PN ---
DATE: SUBJECTIVE: The patient refused to let me take a look at her legs. She appears comfortable in nasal O2. PHYSICAL EXAMINATION VITAL SIGNS: Blood pressure 104/62, heart rate is 94, and temperature 97.8. HEENT: Facial edema. CHEST: Bilateral basal rhonchial breathing. HEART: S1 and S2 regular. EXTREMITIES: 1+ arm edema bilaterally. LABORATORY DATA: Hemoglobin, hematocrit, white count, and platelet count are within normal limits. Today's SMA-7 is within normal limits except glucose 119 and BUN of 36. ASSESSMENT: 1. Dilated cardiomyopathy. 2. Right subclavian vein thrombosis. 3. Bilateral leg cellulitis. 4. Pneumonia. RECOMMENDATIONS: Continue Aldactone, Cozaar, Eliquis, intravenous Lasix and Lanoxin. Today's Digoxin level is 0.7. The case was discussed with Dr. Amador and the plan is to transfer the patient to care home. Cesar Kinney MD
--- NOTE | 2016-12-21 20:44 | CP.PCM.PN ---
Subjective - Date & Time of Evaluation Date of Evaluation: 12/21/16 Time of Evaluation: 20:00 - Subjective Subjective: Patient complaining of leg pain; Objective - Vital Signs/Intake and Output Vital Signs (last 24 hours): Temp Pulse Resp BP Pulse Ox 97.4 F L 105 H 20 101/54 L 96 12/21/16 16:00 12/21/16 17:26 12/21/16 16:00 12/21/16 17:26 12/21/16 16:00 Intake and Output: 12/21/16 12/22/16 18:59 06:59 Intake Total 1140 Balance 1140 - Medications Medications: Current Medications Apixaban (Eliquis) 5 mg PO BID [facility] PRN Reason: Protocol Last Admin: 12/21/16 17:25 Dose: 5 mg Betamethasone/Clotrimazole (Lotrisone) 1 gm TOP BID [facility] Last Admin: 12/21/16 17:27 Dose: 1 applic Digoxin (Lanoxin) 0.125 mg PO 1400 [facility] Last Admin: 12/21/16 13:21 Dose: 0.125 mg Ferrous Sulfate (Feosol) 324 mg PO DAILY [facility] Last Admin: 12/21/16 11:26 Dose: 324 mg Furosemide (Lasix) 40 mg IVP Q8 [facility] Last Admin: 12/21/16 13:20 Dose: 40 mg Insulin Detemir (Levemir) 20 unit SC HS [facility] Last Admin: 12/20/16 21:59 Dose: 20 unit Insulin Human Lispro (Humalog Low) 0 units SC ACHS [facility] PRN Reason: Protocol Last Admin: 12/21/16 17:23 Dose: 3 units Levothyroxine Sodium (Synthroid) 125 mcg PO DAILY [facility] Last Admin: 12/21/16 11:27 Dose: 125 mcg Losartan Potassium (Cozaar) 12.5 mg PO DAILY [facility] Last Admin: 12/21/16 09:18 Dose: 12.5 mg Metoprolol Tartrate (Lopressor) 12.5 mg PO BID [facility] Last Admin: 12/21/16 17:26 Dose: 12.5 mg Ondansetron HCl (Zofran Inj) 4 mg IVP Q4H PRN PRN Reason: Nausea/Vomiting Pantoprazole Sodium (Protonix Ec Tab) 40 mg PO 0600 [facility] Last Admin: 12/21/16 05:01 Dose: 40 mg Polysaccharide Iron Complex (Ferrex-150) 150 mg PO DAILY [facility] Last Admin: 12/21/16 11:27 Dose: 150 mg Quetiapine Fumarate (Seroquel) 100 mg PO [facility] PRN Reason: Protocol Last Admin: 12/20/16 22:00 Dose: 100 mg Spironolactone (Aldactone) 25 mg PO BID [facility] Last Admin: 12/21/16 17:27 Dose: 25 mg Tolvaptan (Samsca) 15 mg PO DAILY [facility] Last Admin: 12/21/16 11:28 Dose: 15 mg Tramadol HCl (Ultram) 50 mg PO Q8 PRN PRN Reason: Pain, moderate (4-7) Last Admin: 12/21/16 13:21 Dose: 50 mg - Labs Labs: 12/21/16 06:15 12/21/16 06:15 PT 11.9 Seconds (9.9-11.8) H 12/13/16 16:30 INR 1.10 (0.93-1.08) H 12/13/16 16:30 APTT 27.1 Seconds (23.7-30.8) 12/13/16 16:30 - Constitutional Appears: Agitated - Head Exam Head Exam: NORMAL INSPECTION - Eye Exam Eye Exam: Normal appearance - ENT Exam ENT Exam: Mucous Membranes Moist - Cardiovascular Exam Cardiovascular Exam: +S1, +S2 - GI/Abdominal Exam GI & Abdominal Exam: Soft. absent: Tenderness - Extremities Exam Additional comments: markedly edematous; - Neurological Exam Neurological Exam: Alert, Awake - Psychiatric Exam Psychiatric exam: Agitated - Skin Skin Exam: Warm. absent: Cyanosis Assessment and Plan (1) CHF exacerbation Assessment & Plan: Severely decompensated systolic CHF w/ MR, although relatively asymptomatic at rest; continue current diuretics and meds for cardiac optimization; should switch to torsemide 20 mg PO bid on d/c; restarted aldactone at 25 mg bid ( lowered due to increase in K); Status: Acute (2) Pleural effusion Assessment & Plan: Due to severe CHF, continue diuretics; Status: Acute (3) Hyponatremia Assessment & Plan: Stable on tolvaptan 15 mg daily, continue; Status: Acute (4) Anemia Status: Chronic (5) Hyperglycemia Status: Resolved (6) Prerenal azotemia Assessment & Plan: Will have to tolerate due to need for aggressive diuretics; renal function, however, is preserved; Status: Acute
[2016-12-21] MEDS: Insulin Detemir 100 units/ml Vial (Levemir) SC SCH (21:56)
[2016-12-22] MEDS: Pantoprazole 40 mg EC Tab PO SCH (05:34)
[2016-12-22] MEDS: Insulin Lispro (humaLOG) LOW Coverage SC SCH ×4 (08:05→21:44)
[2016-12-22 10:13] LABS: BASO # 0.04 K/mm3 (0.0-2.0); BASO % 0.4 % (0.0-3.0); EOS # 0.2 (0.0-0.7); EOS % 2.2 % (1.5-5.0); GRAN # 7.07 (1.4-6.5); GRAN % 66.2 % (50.0-68.0); HEMATOCRIT 37.1 % (36.0-48.0); LYMPH # 2.5 (1.2-3.4); LYMPH % 23.1 % (22.0-35.0); MEAN CELL VOLUME 86.3 fl (80.0-105.0); MEAN CORPUSCULAR HEMOGLOBIN 28.1 pg (25.0-35.0); MEAN CORPUSCULAR HGB CONC 32.6 g/dl (31.0-37.0); MEAN PLATELET VOLUME 9.2 fl (7.0-11.0); MONO # 0.9 (0.1-0.6); MONO % 8.1 % (1.0-6.0); WHITE BLOOD COUNT 10.7 10^3/ul (4.5-11.0)
[2016-12-22 10:17] LABS: BLOOD UREA NITROGEN 40 mg/dL (7-21); CARBON DIOXIDE 29 mmol/L (21-33); CHLORIDE 93 mmol/L (98-107); GFR AFRICAN-AMERICAN > 60; GLUCOSE,RANDOM 174 mg/dL (70-110); POTASSIUM 4.6 mmol/L (3.6-5.0); SODIUM 131 mmol/L (132-148)
[2016-12-22] MEDS: Iron Complex Polysacch 150mg Cap PO SCH ×2 (10:19→10:31)
[2016-12-22] MEDS: Levothyroxine 125 MCG TAB PO SCH (10:19)
[2016-12-22] MEDS: Tolvaptan 15 MG TAB PO SCH (10:22)
[2016-12-22] MEDS: Clotrimazole/Betamethasone Cream(15 gm) TOP SCH ×2 (10:25→18:10)
--- NOTE | 2016-12-22 13:19 | PN ---
DATE: 12/22/2016 SUBJECTIVE: The patient is in bed, in no acute distress, nontoxic. PHYSICAL EXAMINATION: VITAL SIGNS: Temperature is 98, blood pressure 120/70, and respiratory rate is 16. HEENT: Unremarkable. NECK: Supple. LUNGS: Decreased breath sounds. HEART: Normal S1 and S2. ABDOMEN: Soft. LABORATORY DATA: Reveals a white count of 10,000, hemoglobin 12, chemistry reveals of BUN of 40, and creatinine of 0.9. Urinalysis is noted and microbiology reveals of blood cultures are negative. Urine cultures are negative. ASSESSMENT AND PLAN: A 51-year-old with bilateral lower extremity legs edema and erythema, venous stasis, chronic congestive heart failure and probable superimposed cellulitis, which is resolved and status post severe sepsis, hypoxia, ventilatory dependent respiratory failure, had received 7 days of cefazolin and patient is currently off antibiotics and afebrile, doing well, possible discharge. Yehuda Valentino MD
[2016-12-22] MEDS: Digoxin 125 mcg (0.125 mg) Tab PO SCH (14:24)
--- NOTE | 2016-12-22 17:16 | CP.PCM.PN ---
<Christiano Lopes - Last Filed: 12/22/16 17:56> Subjective - Date & Time of Evaluation Date of Evaluation: 12/22/16 Time of Evaluation: 09:00 - Subjective Subjective: Christiano Lopes DO, PGY-1, Hospitalist Service Patient seen and examined at bedside. Patient reports that she doesn't want to go back to that correction. Otherwise, nurse reports no events overnight. Objective - Vital Signs/Intake and Output Vital Signs (last 24 hours): Temp Pulse Resp BP Pulse Ox 98.6 F 99 H 22 123/74 97 12/22/16 08:23 12/22/16 14:00 12/22/16 08:23 12/22/16 10:19 12/22/16 08:23 Intake and Output: 12/22/16 12/22/16 06:59 18:59 Intake Total 420 840 Output Total 1 200 Balance 419 640 - Medications Medications: Current Medications Apixaban (Eliquis) 5 mg PO BID [facility] PRN Reason: Protocol Last Admin: 12/22/16 10:18 Dose: 5 mg Betamethasone/Clotrimazole (Lotrisone) 1 gm TOP BID [facility] Last Admin: 12/22/16 10:25 Dose: 1 applic Digoxin (Lanoxin) 0.125 mg PO 1400 [facility] Last Admin: 12/22/16 14:24 Dose: 0.125 mg Ferrous Sulfate (Feosol) 324 mg PO DAILY [facility] Last Admin: 12/22/16 10:33 Dose: Not Given Insulin Detemir (Levemir) 20 unit SC HS [facility] Last Admin: 12/21/16 21:56 Dose: 20 unit Insulin Human Lispro (Humalog Low) 0 units SC ACHS [facility] PRN Reason: Protocol Last Admin: 12/22/16 17:01 Dose: 3 units Levothyroxine Sodium (Synthroid) 125 mcg PO DAILY [facility] Last Admin: 12/22/16 10:19 Dose: 125 mcg Losartan Potassium (Cozaar) 12.5 mg PO DAILY [facility] Last Admin: 12/22/16 10:17 Dose: 12.5 mg Metoprolol Tartrate (Lopressor) 12.5 mg PO BID [facility] Last Admin: 12/22/16 10:19 Dose: 12.5 mg Ondansetron HCl (Zofran Inj) 4 mg IVP Q4H PRN PRN Reason: Nausea/Vomiting Pantoprazole Sodium (Protonix Ec Tab) 40 mg PO 0600 [facility] Last Admin: 12/22/16 05:34 Dose: 40 mg Polysaccharide Iron Complex (Ferrex-150) 150 mg PO DAILY [facility] Last Admin: 12/22/16 10:31 Dose: Not Given Quetiapine Fumarate (Seroquel) 100 mg PO HS [facility] PRN Reason: Protocol Last Admin: 12/21/16 21:17 Dose: 100 mg Spironolactone (Aldactone) 25 mg PO BID [facility] Last Admin: 12/22/16 10:18 Dose: 25 mg Torsemide (Demadex) 20 mg PO BID [facility] Last Admin: 12/22/16 10:18 Dose: 20 mg Tramadol HCl (Ultram) 50 mg PO Q8 PRN PRN Reason: Pain, moderate (4-7) Last Admin: 12/22/16 10:18 Dose: 50 mg - Labs Labs: 12/22/16 10:00 12/22/16 10:00 PT 11.9 Seconds (9.9-11.8) H 12/13/16 16:30 INR 1.10 (0.93-1.08) H 12/13/16 16:30 APTT 27.1 Seconds (23.7-30.8) 12/13/16 16:30 - Constitutional Appears: Well - Head Exam Head Exam: ATRAUMATIC, NORMOCEPHALIC - Eye Exam Eye Exam: EOMI, Normal appearance, PERRL - ENT Exam ENT Exam: Mucous Membranes Moist, Normal Oropharynx - Neck Exam Neck Exam: Normal Inspection. absent: Tenderness - Respiratory Exam Respiratory Exam: Clear to Ausculation Bilateral, NORMAL BREATHING PATTERN - Cardiovascular Exam Cardiovascular Exam: RRR, +S1, +S2 - GI/Abdominal Exam GI & Abdominal Exam: Soft, Normal Bowel Sounds. absent: Guarding, Rebound - Back Exam Back Exam: NORMAL INSPECTION. absent: CVA tenderness (L), CVA tenderness (R) - Neurological Exam Neurological Exam: Alert, CN II-XII Intact - Psychiatric Exam Psychiatric exam: Flat Affect, Normal Mood - Skin Skin Exam: Dry, Intact, Normal Color, Warm Additional comments: LE swelling, 1/4, less red Assessment and Plan - Assessment and Plan (Free Text) Assessment: 51 y/o F with PMH of DM2, CHF with EF of 30%, HTN, non-ischemic cardiomyopathy, chronic pleural effusion, DVT, Recurrent PE on Eliquis, hypothyroidism, and schizophrenia was admitted with acute on chronic systolic CHF exacerbation and cellulitis. Patient's cellulitis has resolved, but patient has chronic LE due to heart failure still significant LE edema. She received 7 days of Cefazolin and is currently afebrile without a leukocytosis. Plan: 1.CHF exacerbation EF 35% Patient still has significant leg edema, We will continue IV Lasix 40 mg q8h Continue Losartan Spironolactone Continue monitoring BUN/Creatinin and electrolyte 2. DM Levemir 22 U a day Continue sliding scale coverage We will monitor and adjust medications 3. A-fib Rate is controlled with Lopressor , on anticoagulation with Apixiban 4. Recurrent PE Continue Eliquis LE US negative for DVT 5. Hypothyroidism Continue Synthroid 6) Schizophrenia and labile mood - Seroquel 100 mg HS <Annmarie Amador B - Last Filed: 12/25/16 15:00> Objective - Vital Signs/Intake and Output Vital Signs (last 24 hours): Temp Pulse Resp BP Pulse Ox 97.9 F 112 H 20 87/56 L 96 12/25/16 12:00 12/25/16 12:00 12/25/16 12:00 12/25/16 12:00 12/25/16 12:00 Intake and Output: 12/25/16 12/25/16 06:59 18:59 Intake Total 1570 Output Total 402 Balance 1168 - Medications Medications: Current Medications Apixaban (Eliquis) 5 mg PO BID [facility] PRN Reason: Protocol Last Admin: 12/25/16 09:05 Dose: 5 mg Betamethasone/Clotrimazole (Lotrisone) 1 gm TOP BID [facility] Last Admin: 12/25/16 09:08 Dose: 1 applic Digoxin (Lanoxin) 0.125 mg PO 1400 [facility] Last Admin: 12/25/16 14:05 Dose: 0.125 mg Ferrous Sulfate (Feosol) 324 mg PO DAILY [facility] Last Admin: 12/25/16 09:05 Dose: 324 mg Furosemide (Lasix) 40 mg IVP Q6H [facility] Last Admin: 12/25/16 09:06 Dose: 40 mg Dobutamine HCl/Dextrose (Dobutamine/Dextrose 5% 500mg/250ml) 500 mg in 250 mls @ 6.545 mls/hr IV .Q24H PRN; Protocol; 2.5 MCG/KG/MIN PRN Reason: TITRATE PER PROTOCOL Last Admin: 12/25/16 06:43 Dose: 6.545 mls/hr Insulin Detemir (Levemir) 20 unit SC [facility] Last Admin: 12/24/16 22:24 Dose: 20 unit Insulin Human Lispro (Humalog Low) 0 units SC [facility] PRN Reason: Protocol Last Admin: 12/25/16 11:53 Dose: 2 units Levothyroxine Sodium (Synthroid) 125 mcg PO DAILY [facility] Last Admin: 12/25/16 09:09 Dose: 125 mcg Losartan Potassium (Cozaar) 12.5 mg PO DAILY [facility] Last Admin: 12/25/16 09:05 Dose: 12.5 mg Metoprolol Tartrate (Lopressor) 12.5 mg PO BID [facility] Last Admin: 12/25/16 09:07 Dose: 12.5 mg Ondansetron HCl (Zofran Inj) 4 mg IVP Q4H PRN PRN Reason: Nausea/Vomiting Pantoprazole Sodium (Protonix Ec Tab) 40 mg PO 0600 [facility] Last Admin: 12/25/16 05:32 Dose: 40 mg Polysaccharide Iron Complex (Ferrex-150) 150 mg PO DAILY [facility] Last Admin: 12/25/16 09:08 Dose: 150 mg Quetiapine Fumarate (Seroquel) 100 mg PO [facility] PRN Reason: Protocol Last Admin: 12/24/16 22:23 Dose: 100 mg Spironolactone (Aldactone) 25 mg PO BID [facility] Last Admin: 12/25/16 09:05 Dose: 25 mg Tolvaptan (Samsca) 15 mg PO DAILY [facility] Stop: 12/30/16 10:01 Last Admin: 12/25/16 09:09 Dose: 15 mg Tramadol HCl (Ultram) 50 mg PO Q8 PRN PRN Reason: Pain, moderate (4-7) Last Admin: 12/25/16 08:57 Dose: 50 mg - Labs Labs: 12/24/16 07:50 12/24/16 07:50 PT 11.9 Seconds (9.9-11.8) H 12/13/16 16:30 INR 1.10 (0.93-1.08) H 12/13/16 16:30 APTT 27.1 Seconds (23.7-30.8) 12/13/16 16:30 Attending/Attestation - Attestation I have personally seen and examined this patient.: Yes I have fully participated in the care of the patient.: Yes I have reviewed all pertinent clinical information, including history, physical exam and plan: Yes Notes (Text): I have seen and examined the patient at bedside. Agree with the above note with the following additions/ exceptions: Briefly this is 51 year old female with history of DM-2M CHF (EF~30%), HTN, NIICMP, chronic pleural effusion, 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 Patient has completed ancef. Still has significant edema. Will restart IV lasix 40 q8 and continue losartan and spironolactone. Continue levemir for DM-2. Continue lopressor and eliquis for afib. Continue synthroid and seroquel. Upon discharge pateint will go back to correction as she is not able to take care fo herself. Discussed with ID, parts finisher and manufacturing specialist. Dr Annmaire Amador
--- NOTE | 2016-12-22 20:31 | CP.PCM.PN ---
Subjective - Date & Time of Evaluation Date of Evaluation: 12/22/16 Time of Evaluation: 18:00 - Subjective Subjective: Patient reports weeping from legs; urinating well; Objective - Vital Signs/Intake and Output Vital Signs (last 24 hours): Temp Pulse Resp BP Pulse Ox 97.5 F L 83 21 120/70 95 12/22/16 16:00 12/22/16 18:09 12/22/16 16:00 12/22/16 18:09 12/22/16 16:00 Intake and Output: 12/22/16 12/23/16 18:59 06:59 Intake Total 840 Output Total 200 Balance 640 - Medications Medications: Current Medications Apixaban (Eliquis) 5 mg PO BID [facility] PRN Reason: Protocol Last Admin: 12/22/16 18:09 Dose: 5 mg Betamethasone/Clotrimazole (Lotrisone) 1 gm TOP BID [facility] Last Admin: 12/22/16 18:10 Dose: 1 applic Digoxin (Lanoxin) 0.125 mg PO 1400 [facility] Last Admin: 12/22/16 14:24 Dose: 0.125 mg Ferrous Sulfate (Feosol) 324 mg PO DAILY [facility] Last Admin: 12/22/16 10:33 Dose: Not Given Insulin Detemir (Levemir) 20 unit SC HS [facility] Last Admin: 12/21/16 21:56 Dose: 20 unit Insulin Human Lispro (Humalog Low) 0 units SC ACHS [facility] PRN Reason: Protocol Last Admin: 12/22/16 17:01 Dose: 3 units Levothyroxine Sodium (Synthroid) 125 mcg PO DAILY [facility] Last Admin: 12/22/16 10:19 Dose: 125 mcg Losartan Potassium (Cozaar) 12.5 mg PO DAILY [facility] Last Admin: 12/22/16 10:17 Dose: 12.5 mg Metoprolol Tartrate (Lopressor) 12.5 mg PO BID [facility] Last Admin: 12/22/16 18:09 Dose: 12.5 mg Ondansetron HCl (Zofran Inj) 4 mg IVP Q4H PRN PRN Reason: Nausea/Vomiting Pantoprazole Sodium (Protonix Ec Tab) 40 mg PO 0600 [facility] Last Admin: 12/22/16 05:34 Dose: 40 mg Polysaccharide Iron Complex (Ferrex-150) 150 mg PO DAILY [facility] Last Admin: 12/22/16 10:31 Dose: Not Given Quetiapine Fumarate (Seroquel) 100 mg PO HS [facility] PRN Reason: Protocol Last Admin: 12/21/16 21:17 Dose: 100 mg Spironolactone (Aldactone) 25 mg PO BID [facility] Last Admin: 12/22/16 18:09 Dose: 25 mg Torsemide (Demadex) 20 mg PO BID [facility] Last Admin: 12/22/16 18:10 Dose: 20 mg Tramadol HCl (Ultram) 50 mg PO Q8 PRN PRN Reason: Pain, moderate (4-7) Last Admin: 12/22/16 17:16 Dose: 50 mg - Labs Labs: 12/22/16 10:00 12/22/16 10:00 PT 11.9 Seconds (9.9-11.8) H 12/13/16 16:30 INR 1.10 (0.93-1.08) H 12/13/16 16:30 APTT 27.1 Seconds (23.7-30.8) 12/13/16 16:30 - Constitutional Appears: Non-toxic, No Acute Distress - Head Exam Head Exam: NORMAL INSPECTION - Eye Exam Eye Exam: Normal appearance - ENT Exam ENT Exam: Mucous Membranes Moist - Cardiovascular Exam Cardiovascular Exam: Irregular Rhythm, JVD, Murmur - GI/Abdominal Exam GI & Abdominal Exam: Soft. absent: Distended - Extremities Exam Additional comments: anasarca; severely edematous legs; - Neurological Exam Neurological Exam: Alert, Awake - Skin Skin Exam: Warm. absent: Cyanosis Assessment and Plan (1) CHF exacerbation Assessment & Plan: Severe systolic CHF w/ MR; relatively compensated at rest but still markedly overloaded; -IV lasix changed to PO torsemide 20 mg bid in anticipation of discharge; Status: Acute (2) Pleural effusion Assessment & Plan: Moderate to severe, continue diuresis as above; Status: Acute (3) Hyponatremia Assessment & Plan: Due to severe CHF, stable on tolvaptan 15 mg daily, continue; Status: Acute (4) Anemia Status: Chronic (5) Hyperglycemia Status: Resolved (6) Prerenal azotemia Assessment & Plan: Due to need for aggressive diuresis, continue same; renal function largely preserved, if worsens, will need to start inotropic agent; Status: Acute
[2016-12-22] MEDS: Insulin Detemir 100 units/ml Vial (Levemir) SC SCH (21:47)
[2016-12-23] MEDS: Pantoprazole 40 mg EC Tab PO SCH (05:27)
[2016-12-23 05:52] LABS: HEMATOCRIT 36.8 % (36.0-48.0); MEAN CELL VOLUME 85.4 fl (80.0-105.0); MEAN CORPUSCULAR HEMOGLOBIN 28.3 pg (25.0-35.0); MEAN CORPUSCULAR HGB CONC 33.2 g/dl (31.0-37.0); MEAN PLATELET VOLUME 9.7 fl (7.0-11.0); RED CELL DISTRIBUTION WIDTH 19.5 % (11.5-14.5); WHITE BLOOD COUNT 10.8 10^3/ul (4.5-11.0)
[2016-12-23 06:05] LABS: CALCIUM 8.8 mg/dL (8.4-10.5); POTASSIUM 4.8 mmol/L (3.6-5.0)
--- NOTE | 2016-12-23 07:35 | CP.PCM.PN ---
<Christiano Lopes - Last Filed: 12/23/16 09:14> Subjective - Date & Time of Evaluation Date of Evaluation: 12/23/16 Time of Evaluation: 07:33 - Subjective Subjective: Christiano Lopes DO, PGY-1, Hospitalist Service Patient is complains of worsening LE pain and inability to extend her knee or ambulate. Patient's LE pain is a 10/10 in severity. She is naturally frustrated. Otherwise, no events per nursing overnight. Objective - Vital Signs/Intake and Output Vital Signs (last 24 hours): Temp Pulse Resp BP Pulse Ox 97.5 F L 102 H 21 120/70 95 12/22/16 16:00 12/23/16 06:00 12/22/16 16:00 12/22/16 18:09 12/22/16 16:00 Intake and Output: 12/23/16 12/23/16 06:59 18:59 Intake Total 540 Balance 540 - Medications Medications: Current Medications Apixaban (Eliquis) 5 mg PO BID [facility] PRN Reason: Protocol Last Admin: 12/22/16 18:09 Dose: 5 mg Betamethasone/Clotrimazole (Lotrisone) 1 gm TOP BID [facility] Last Admin: 12/22/16 18:10 Dose: 1 applic Digoxin (Lanoxin) 0.125 mg PO 1400 [facility] Last Admin: 12/22/16 14:24 Dose: 0.125 mg Ferrous Sulfate (Feosol) 324 mg PO DAILY [facility] Last Admin: 12/22/16 10:33 Dose: Not Given Insulin Detemir (Levemir) 20 unit SC HS [facility] Last Admin: 12/22/16 21:47 Dose: 20 unit Insulin Human Lispro (Humalog Low) 0 units SC ACHS [facility] PRN Reason: Protocol Last Admin: 12/22/16 21:44 Dose: Not Given Levothyroxine Sodium (Synthroid) 125 mcg PO DAILY [facility] Last Admin: 12/22/16 10:19 Dose: 125 mcg Losartan Potassium (Cozaar) 12.5 mg PO DAILY [facility] Last Admin: 12/22/16 10:17 Dose: 12.5 mg Metoprolol Tartrate (Lopressor) 12.5 mg PO BID [facility] Last Admin: 12/22/16 18:09 Dose: 12.5 mg Ondansetron HCl (Zofran Inj) 4 mg IVP Q4H PRN PRN Reason: Nausea/Vomiting Pantoprazole Sodium (Protonix Ec Tab) 40 mg PO 0600 [facility] Last Admin: 12/23/16 05:27 Dose: 40 mg Polysaccharide Iron Complex (Ferrex-150) 150 mg PO DAILY [facility] Last Admin: 12/22/16 10:31 Dose: Not Given Quetiapine Fumarate (Seroquel) 100 mg PO HS [facility] PRN Reason: Protocol Last Admin: 12/22/16 21:38 Dose: 100 mg Spironolactone (Aldactone) 25 mg PO BID [facility] Last Admin: 12/22/16 18:09 Dose: 25 mg Tolvaptan (Samsca) 15 mg PO DAILY [facility] Stop: 12/30/16 10:01 Torsemide (Demadex) 20 mg PO BID [facility] Last Admin: 12/22/16 18:10 Dose: 20 mg Tramadol HCl (Ultram) 50 mg PO Q8 PRN PRN Reason: Pain, moderate (4-7) Last Admin: 12/22/16 17:16 Dose: 50 mg - Labs Labs: 12/23/16 05:40 12/23/16 05:40 PT 11.9 Seconds (9.9-11.8) H 12/13/16 16:30 INR 1.10 (0.93-1.08) H 12/13/16 16:30 APTT 27.1 Seconds (23.7-30.8) 12/13/16 16:30 - Constitutional Appears: In Acute Distress, Unkempt, Agitated - Head Exam Head Exam: ATRAUMATIC, NORMOCEPHALIC - Eye Exam Eye Exam: EOMI, Normal appearance, PERRL - ENT Exam ENT Exam: Mucous Membranes Moist, Normal Oropharynx - Neck Exam Neck Exam: Normal Inspection Additional comments: no JVD - Respiratory Exam Respiratory Exam: Decreased Breath Sounds (right lung field). absent: Accessory Muscle Use, Wheezes - Cardiovascular Exam Cardiovascular Exam: RRR, +S1, +S2 - GI/Abdominal Exam GI & Abdominal Exam: Distended, Soft, Normal Bowel Sounds. absent: Rebound - Extremities Exam Additional comments: Bilateral lower extremities are red with 3/4 pitting edema, spreading up to mid thigh,extremely tender to palpation, with flaking of epidermal layer - Back Exam Back Exam: NORMAL INSPECTION. absent: CVA tenderness (L), CVA tenderness (R) - Neurological Exam Neurological Exam: Alert, Awake, CN II-XII Intact, Oriented x3 - Psychiatric Exam Psychiatric exam: Normal Affect, Normal Mood - Skin Additional comments: epidermal skin flaking in BL LEs Assessment and Plan - Assessment and Plan (Free Text) Assessment: 51 y/o F with PMH of DM2, CHF with EF of 30%, HTN, non-ischemic cardiomyopathy, chronic pleural effusion, DVT, Recurrent PE on Eliquis, hypothyroidism, and schizophrenia was admitted with acute on chronic systolic heart failure exacerbation and LE edema with superimposed lower extremity cellulitis. Patient is off antibiotics after having 7 days of IV cefazolin. Patient's LE edema has not resolved, and is worsening based on the appearance and increased pain and now inability of the patient to ambulate whatsoever. Plan: Disposition: Patient's Lower extremity has worsened and become painful. She is unable to extend her knee even, much less ambulate secondary to the associated pain. She will need placement into a long-term care facility with physical therapy amenities. 1) LE Edema and pain - Restarting IV Furosemide 60 mg q12h - Spirinolactone 25 mg BID - Discontinue Torsemide in light of the patient's worsening LE edema - Leg elevation to heart level for at least 30 minutes, four times daily - Continue to monitor BUN/Creatinine, and electrolyte - Tramadol 50 mg q8h PRN for severe pain 2. Diabetes Mellitus - Levemir 20 U HS - ISS low-dose Lispro 3. Atrial Fibrillation - Eliquis 5 mg BID - Metropolol 12.5 BID 4) Hyponatremia - Tolvaptan 30 mg daily 5. Hypothyroidism - Synthroid 125 mcg daily 6) Schizophrenia and labile mood - Seroquel 100 mg HS 7) GI prophylaxis: Protonix 40 mg PO daily <Annmarie Amador - Last Filed: 12/25/16 15:04> Objective - Vital Signs/Intake and Output Vital Signs (last 24 hours): Temp Pulse Resp BP Pulse Ox 97.9 F 112 H 20 87/56 L 96 12/25/16 12:00 12/25/16 12:00 12/25/16 12:00 12/25/16 12:00 12/25/16 12:00 Intake and Output: 09/17/17 09/17/17 06:59 18:59 Intake Total 1570 Output Total 402 Balance 1168 - Medications Medications: Current Medications Apixaban (Eliquis) 5 mg PO BID [facility] PRN Reason: Protocol Last Admin: 12/25/16 09:05 Dose: 5 mg Betamethasone/Clotrimazole (Lotrisone) 1 gm TOP BID [facility] Last Admin: 12/25/16 09:08 Dose: 1 applic Digoxin (Lanoxin) 0.125 mg PO 1400 [facility] Last Admin: 12/25/16 14:05 Dose: 0.125 mg Ferrous Sulfate (Feosol) 324 mg PO DAILY [facility] Last Admin: 12/25/16 09:05 Dose: 324 mg Furosemide (Lasix) 40 mg IVP Q6H [facility] Last Admin: 12/25/16 09:06 Dose: 40 mg Dobutamine HCl/Dextrose (Dobutamine/Dextrose 5% 500mg/250ml) 500 mg in 250 mls @ 6.545 mls/hr IV .Q24H PRN; Protocol; 2.5 MCG/KG/MIN PRN Reason: TITRATE PER PROTOCOL Last Admin: 12/25/16 06:43 Dose: 6.545 mls/hr Insulin Detemir (Levemir) 20 unit SC HS [facility] Last Admin: 12/24/16 22:24 Dose: 20 unit Insulin Human Lispro (Humalog Low) 0 units SC [facility] PRN Reason: Protocol Last Admin: 12/25/16 11:53 Dose: 2 units Levothyroxine Sodium (Synthroid) 125 mcg PO DAILY [facility] Last Admin: 12/25/16 09:09 Dose: 125 mcg Losartan Potassium (Cozaar) 12.5 mg PO DAILY [facility] Last Admin: 12/25/16 09:05 Dose: 12.5 mg Metoprolol Tartrate (Lopressor) 12.5 mg PO BID [facility] Last Admin: 12/25/16 09:07 Dose: 12.5 mg Ondansetron HCl (Zofran Inj) 4 mg IVP Q4H PRN PRN Reason: Nausea/Vomiting Pantoprazole Sodium (Protonix Ec Tab) 40 mg PO 0600 [facility] Last Admin: 12/25/16 05:32 Dose: 40 mg Polysaccharide Iron Complex (Ferrex-150) 150 mg PO DAILY [facility] Last Admin: 12/25/16 09:08 Dose: 150 mg Quetiapine Fumarate (Seroquel) 100 mg PO HS [facility] PRN Reason: Protocol Last Admin: 12/24/16 22:23 Dose: 100 mg Spironolactone (Aldactone) 25 mg PO BID [facility] Last Admin: 12/25/16 09:05 Dose: 25 mg Tolvaptan (Samsca) 15 mg PO DAILY [facility] Stop: 12/30/16 10:01 Last Admin: 12/25/16 09:09 Dose: 15 mg Tramadol HCl (Ultram) 50 mg PO Q8 PRN PRN Reason: Pain, moderate (4-7) Last Admin: 12/25/16 08:57 Dose: 50 mg - Labs Labs: 12/24/16 07:50 12/24/16 07:50 PT 11.9 Seconds (9.9-11.8) H 12/13/16 16:30 INR 1.10 (0.93-1.08) H 12/13/16 16:30 APTT 27.1 Seconds (23.7-30.8) 12/13/16 16:30 Attending/Attestation - Attestation I have personally seen and examined this patient.: Yes I have fully participated in the care of the patient.: Yes I have reviewed all pertinent clinical information, including history, physical exam and plan: Yes Notes (Text): I have seen and examined the patient at bedside. Agree with the above note with the following additions/ exceptions: Briefly this is 51 year old female with history of DM-2M CHF (EF~30%), HTN, NIICMP, chronic pleural effusion, 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 Patient has completed ancef. Today she has developed worsening of leg swelling. Will restart IV lasix and discontinue torsemide. Continue losartan and spironolactone. Continue tolvaptan for hyponatremia. Continue levemir for DM-2. Continue lopressor and eliquis for afib. Continue synthroid and seroquel. Upon discharge patient will go back to half-way as she is not able to take care of herself. 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 Dr Annmarie Amador
[2016-12-23] MEDS: Insulin Lispro (humaLOG) LOW Coverage SC SCH ×4 (07:42→22:20)
--- NOTE | 2016-12-23 08:31 | CP.PCM.PN ---
Subjective - Date & Time of Evaluation Date of Evaluation: 12/23/16 Time of Evaluation: 08:28 - Subjective Subjective: PGY-[address] French's Nephrology service: Pt seen and examined at bedside. Pt complains of continued lower extremity pain , worse on left side. She states pain is "unbearable", and makes her unable to ambulate. She reports increased urination overnight. Objective - Vital Signs/Intake and Output Vital Signs (last 24 hours): Temp Pulse Resp BP Pulse Ox 97.8 F 93 H 20 92/52 L 96 12/23/16 07:54 12/23/16 07:54 12/23/16 07:54 12/23/16 07:54 12/23/16 07:54 Intake and Output: 12/23/16 12/23/16 06:59 18:59 Intake Total 540 Balance 540 - Medications Medications: Current Medications Apixaban (Eliquis) 5 mg PO BID [facility] PRN Reason: Protocol Last Admin: 12/22/16 18:09 Dose: 5 mg Betamethasone/Clotrimazole (Lotrisone) 1 gm TOP BID [facility] Last Admin: 12/22/16 18:10 Dose: 1 applic Digoxin (Lanoxin) 0.125 mg PO 1400 [facility] Last Admin: 12/22/16 14:24 Dose: 0.125 mg Ferrous Sulfate (Feosol) 324 mg PO DAILY [facility] Last Admin: 12/22/16 10:33 Dose: Not Given Furosemide (Lasix) 60 mg IVP Q12H [facility] Insulin Detemir (Levemir) 20 unit SC HS [facility] Last Admin: 12/22/16 21:47 Dose: 20 unit Insulin Human Lispro (Humalog Low) 0 units SC ACHS [facility] PRN Reason: Protocol Last Admin: 12/23/16 07:42 Dose: 1 units Levothyroxine Sodium (Synthroid) 125 mcg PO DAILY [facility] Last Admin: 12/22/16 10:19 Dose: 125 mcg Losartan Potassium (Cozaar) 12.5 mg PO DAILY [facility] Last Admin: 12/22/16 10:17 Dose: 12.5 mg Metoprolol Tartrate (Lopressor) 12.5 mg PO BID [facility] Last Admin: 12/22/16 18:09 Dose: 12.5 mg Ondansetron HCl (Zofran Inj) 4 mg IVP Q4H PRN PRN Reason: Nausea/Vomiting Pantoprazole Sodium (Protonix Ec Tab) 40 mg PO 0600 [facility] Last Admin: 12/23/16 05:27 Dose: 40 mg Polysaccharide Iron Complex (Ferrex-150) 150 mg PO DAILY [facility] Last Admin: 12/22/16 10:31 Dose: Not Given Quetiapine Fumarate (Seroquel) 100 mg PO HS [facility] PRN Reason: Protocol Last Admin: 12/22/16 21:38 Dose: 100 mg Spironolactone (Aldactone) 25 mg PO BID [facility] Last Admin: 12/22/16 18:09 Dose: 25 mg Tolvaptan (Samsca) 15 mg PO DAILY [facility] Stop: 12/30/16 10:01 Torsemide (Demadex) 20 mg PO DAILY [facility] Tramadol HCl (Ultram) 50 mg PO Q8 PRN PRN Reason: Pain, moderate (4-7) Last Admin: 12/23/16 07:43 Dose: 50 mg - Labs Labs: 12/23/16 05:40 12/23/16 05:40 PT 11.9 Seconds (9.9-11.8) H 12/13/16 16:30 INR 1.10 (0.93-1.08) H 12/13/16 16:30 APTT 27.1 Seconds (23.7-30.8) 12/13/16 16:30 - Constitutional Appears: Non-toxic, No Acute Distress - Head Exam Head Exam: NORMAL INSPECTION - Eye Exam Eye Exam: EOMI, Normal appearance - ENT Exam ENT Exam: Mucous Membranes Moist - Neck Exam Additional comments: No JVD - Respiratory Exam Respiratory Exam: Decreased Breath Sounds, NORMAL BREATHING PATTERN. absent: Rales, Rhonchi, Wheezes - Cardiovascular Exam Cardiovascular Exam: Irregular Rhythm, Murmur. absent: JVD - GI/Abdominal Exam GI & Abdominal Exam: Soft, Normal Bowel Sounds. absent: Distended, Tenderness - Extremities Exam Extremities Exam: Pedal Edema (3/4+, above knee bilaterally; TTP throughout; DP/ PT pulses intact). absent: Normal Inspection - Back Exam Back Exam: absent: CVA tenderness (L), CVA tenderness (R) - Neurological Exam Neurological Exam: Alert, Awake - Psychiatric Exam Psychiatric exam: Agitated (after being asked to step on scale) - Skin Skin Exam: Warm. absent: Cyanosis Assessment and Plan - Assessment and Plan (Free Text) Plan: Assessment and Plan (1) CHF exacerbation Assessment & Plan: Severe systolic CHF w/ MR; relatively compensated at rest but still markedly overloaded; Lasix 60mg IV Q8H daily Spirinolactone 25mg PO Daily Status: Acute (2) Pleural effusion Assessment & Plan: Moderate to severe, continue diuresis as above; Status: Acute (3) Hyponatremia Assessment & Plan: Due to severe CHF, stable on tolvaptan 15 mg daily, continue; Status: Acute (4) Anemia Status: Chronic (5) Hyperglycemia Status: Resolved (6) Prerenal azotemia Assessment & Plan: Due to need for aggressive diuresis, continue same; Elevated creatinine today (1.3 from 0.9 12/22) - monitor AM labs Status: Acute
[2016-12-23] MEDS: Levothyroxine 125 MCG TAB PO SCH (10:01)
[2016-12-23] MEDS: Iron Complex Polysacch 150mg Cap PO SCH (10:03)
[2016-12-23] MEDS: Clotrimazole/Betamethasone Cream(15 gm) TOP SCH ×2 (10:04→17:00)
[2016-12-23] MEDS: Tolvaptan 15 MG TAB PO SCH (11:03)
--- NOTE | 2016-12-23 11:08 | PN ---
DATE: 12/23/2016 SUBJECTIVE: The patient is seen earlier today in 365, bed 2. No fevers and no chills. PHYSICAL EXAMINATION VITAL SIGNS: Temperature is 97, blood pressure is 90/50, and respiratory rate is 16. HEENT: Unremarkable. NECK: Supple. LUNGS: Decreased breath sounds. HEART: Normal S1 and S2. ABDOMEN: Soft and nontender. LABORATORY DATA: Examination reveals a white count of 10,000, hemoglobin of 12, and platelets of 378. BUN of 51, and creatinine of 1.3. Urinalysis is noted and toxicology is noted. Blood cultures are negative. Urine cultures are negative. ASSESSMENT AND PLAN: A 51-year-old female with bilateral lower extremity legs edema and erythema, venous stasis, chronic congestive heart failure and probable superimposed cellulitis, which is resolved and status post severe sepsis, hypoxia, ventilatory dependent respiratory failure, had 7 days of antibiotics. Currently off of antibiotics and the patient had risks for developing nosocomial infection. Yehuda Valentino MD
[2016-12-23] MEDS: Digoxin 125 mcg (0.125 mg) Tab PO SCH (14:10)
[2016-12-23] MEDS: DOBUTamine 500mg/250ml D5W 500 MG/250 ML BAG IV PRN (17:47)
[2016-12-23] MEDS: Insulin Detemir 100 units/ml Vial (Levemir) SC SCH (22:20)
[2016-12-24] MEDS: Pantoprazole 40 mg EC Tab PO SCH (06:14)
[2016-12-24] MEDS: Insulin Lispro (humaLOG) LOW Coverage SC SCH ×4 (08:00→22:24)
[2016-12-24 08:04] LABS: HEMATOCRIT 33.5 % (36.0-48.0); MEAN CELL VOLUME 85.5 fl (80.0-105.0); MEAN CORPUSCULAR HEMOGLOBIN 27.6 pg (25.0-35.0); MEAN CORPUSCULAR HGB CONC 32.2 g/dl (31.0-37.0); MEAN PLATELET VOLUME 9.6 fl (7.0-11.0); RED CELL DISTRIBUTION WIDTH 19.5 % (11.5-14.5); WHITE BLOOD COUNT 9.8 10^3/ul (4.5-11.0)
[2016-12-24 08:18] LABS: BLOOD UREA NITROGEN 51 mg/dL (7-21); CALCIUM 8.7 mg/dL (8.4-10.5); CARBON DIOXIDE 29 mmol/L (21-33); CHLORIDE 92 mmol/L (98-107); GFR AFRICAN-AMERICAN > 60; GLUCOSE,RANDOM 176 mg/dL (70-110); POTASSIUM 4.7 mmol/L (3.6-5.0); SODIUM 131 mmol/L (132-148)
[2016-12-24] MEDS: Tolvaptan 15 MG TAB PO SCH (10:04)
[2016-12-24] MEDS: Levothyroxine 125 MCG TAB PO SCH (10:05)
[2016-12-24] MEDS: Iron Complex Polysacch 150mg Cap PO SCH (10:06)
[2016-12-24] MEDS: Clotrimazole/Betamethasone Cream(15 gm) TOP SCH ×2 (10:25→17:09)
--- NOTE | 2016-12-24 12:47 | PN ---
DATE: 12/24/[address] Kinney. REASON FO CONSULTATION: Cardiomyopathy, DVT, bilateral leg edema, pleural effusion, pneumonia. SUBJECTIVE: The patient to look into the leg, does not want to be examined her leg because of pain. OBJECTIVE: GENERAL: Lying in the bed, not in apparent distress. Appears moderately swollen, generalized anasarca. VITAL SIGNS: Temperature afebrile, heart rate 117, blood pressure 95/58. HEENT: PERRLA. Extraocular muscles intact. NECK: Supple. No carotid bruit or thyromegaly. CHEST: Clear to auscultation. HEART: S1 and S2. Regular. ABDOMEN: Soft. EXTREMITIES: Clubbing and cyanosis negative. LABORATORY DATA: Blood workup as follows; WBC is 9.8, hemoglobin 10.8, hematocrit 33.5, platelet count 240. Chemistries shows sodium 135, potassium 4.7, chloride 92, carbon dioxide 29, anion gap of 15, BUN of 51 and creatinine 0.9. IMPRESSION: Dilated cardiomyopathy, right subclavian thrombosis, bilateral leg swelling, generalized anasarca, pleural effusion, atrial fibrillation, hypotension, tachycardia, psychiatric disorder, hyponatremia was on Aldactone. RECOMMENDATIONS: Continue spironolactone, continue Losartan, continue Dobutrex, continue digoxin, monitor electrolytes, continue IV Lasix, electrolytes in the morning. We will follow with you. We will transfer care to Dr. Kinney on Monday. Mau Orozco MD
[2016-12-24] MEDS: Digoxin 125 mcg (0.125 mg) Tab PO SCH (14:54)
--- NOTE | 2016-12-24 15:20 | CP.PCM.PN ---
<SAROJ FLYNN - Last Filed: 12/24/16 21:39> Subjective - Date & Time of Evaluation Date of Evaluation: 12/24/16 Time of Evaluation: 09:15 - Subjective Subjective: patient was seen and examined at bedside. irritable and not wanting anyone to look at her legs, states she is frustrated. Objective - Vital Signs/Intake and Output Vital Signs (last 24 hours): Temp Pulse Resp BP Pulse Ox 98 F 86 16 117/54 L 97 12/24/16 12:00 12/24/16 12:00 12/24/16 12:00 12/24/16 12:00 12/24/16 06:00 Intake and Output: 12/24/16 12/24/16 06:59 18:59 Intake Total 78 Output Total 500 Balance -422 - Medications Medications: Current Medications Apixaban (Eliquis) 5 mg PO BID [facility] PRN Reason: Protocol Last Admin: 12/24/16 10:04 Dose: 5 mg Betamethasone/Clotrimazole (Lotrisone) 1 gm TOP BID [facility] Last Admin: 12/24/16 10:25 Dose: 1 applic Digoxin (Lanoxin) 0.125 mg PO 1400 [facility] Last Admin: 12/24/16 14:54 Dose: 0.125 mg Ferrous Sulfate (Feosol) 324 mg PO DAILY [facility] Last Admin: 12/24/16 10:05 Dose: 324 mg Furosemide (Lasix) 40 mg IVP Q6H [facility] Dobutamine HCl/Dextrose (Dobutamine/Dextrose 5% 500mg/250ml) 500 mg in 250 mls @ 6.545 mls/hr IV .Q24H PRN; Protocol; 2.5 MCG/KG/MIN PRN Reason: TITRATE PER PROTOCOL Last Admin: 12/23/16 17:47 Dose: 6.545 mls/hr Insulin Detemir (Levemir) 20 unit SC HS [facility] Last Admin: 12/23/16 22:20 Dose: 20 unit Insulin Human Lispro (Humalog Low) 0 units SC ACHS [facility] PRN Reason: Protocol Last Admin: 12/24/16 11:52 Dose: 2 units Levothyroxine Sodium (Synthroid) 125 mcg PO DAILY [facility] Last Admin: 12/24/16 10:05 Dose: 125 mcg Losartan Potassium (Cozaar) 12.5 mg PO DAILY [facility] Last Admin: 12/24/16 10:06 Dose: 12.5 mg Metoprolol Tartrate (Lopressor) 12.5 mg PO BID [facility] Last Admin: 12/24/16 10:06 Dose: 12.5 mg Ondansetron HCl (Zofran Inj) 4 mg IVP Q4H PRN PRN Reason: Nausea/Vomiting Pantoprazole Sodium (Protonix Ec Tab) 40 mg PO 0600 [facility] Last Admin: 12/24/16 06:14 Dose: 40 mg Polysaccharide Iron Complex (Ferrex-150) 150 mg PO DAILY [facility] Last Admin: 12/24/16 10:06 Dose: 150 mg Quetiapine Fumarate (Seroquel) 100 mg PO HS [facility] PRN Reason: Protocol Last Admin: 12/23/16 22:19 Dose: 100 mg Spironolactone (Aldactone) 25 mg PO BID [facility] Last Admin: 12/24/16 10:05 Dose: 25 mg Tolvaptan (Samsca) 15 mg PO DAILY [facility] Stop: 12/30/16 10:01 Last Admin: 12/24/16 10:04 Dose: 15 mg Tramadol HCl (Ultram) 50 mg PO Q8 PRN PRN Reason: Pain, moderate (4-7) Last Admin: 12/24/16 14:54 Dose: 50 mg - Labs Labs: 12/24/16 07:50 12/24/16 07:50 PT 11.9 Seconds (9.9-11.8) H 12/13/16 16:30 INR 1.10 (0.93-1.08) H 12/13/16 16:30 APTT 27.1 Seconds (23.7-30.8) 12/13/16 16:30 - Additional Findings Additional findings: - Constitutional Appears: Non-toxic, No Acute Distress - Head Exam Head Exam: NORMAL INSPECTION - Eye Exam Eye Exam: EOMI, Normal appearance - ENT Exam ENT Exam: Mucous Membranes Moist - Neck Exam Additional comments: NORMAL INSPECTION - Respiratory Exam Respiratory Exam: Decreased Breath Sounds, NORMAL BREATHING PATTERN. absent: Rales, Rhonchi, Wheezes - Cardiovascular Exam Cardiovascular Exam: Irregular Rhythm, Murmur. absent: JVD - GI/Abdominal Exam GI & Abdominal Exam: Soft, Normal Bowel Sounds. absent: Distended, Tenderness - Extremities Exam Extremities Exam: Pedal Edema (3/4+, above knee bilaterally; TTP throughout; DP/ PT pulses intact). absent: Normal Inspection - Back Exam Back Exam: absent: CVA tenderness (L), CVA tenderness (R) - Neurological Exam Neurological Exam: Alert, Awake - Psychiatric Exam Psychiatric exam: Agitated (about uncovering legs) - Skin Skin Exam: Warm. absent: Cyanosis Additional comments: b/l LE erythema and skin flaking and peeling, warm to touch Assessment and Plan - Assessment and Plan (Free Text) Assessment: 51 yo F with PMH of DM2, CHF with EF of 30%, HTN, non-ischemic cardiomyopathy, chronic pleural effusion, DVT, Recurrent PE on Eliquis, hypothyroidism, and schizophrenia was admitted with acute on chronic systolic heart failure exacerbation and LE edema with superimposed lower extremity cellulitis. Patient is off antibiotics after having 7 days of IV cefazolin. Patient's LE edema has not resolved, and is worsening based on the appearance and increased pain and now inability of the patient to ambulate whatsoever. Plan: 1. LE Edema and pain - Lasix 40 q6 - Spirinolactone 25 mg BID - Leg elevation to heart level for at least 30 minutes, four times daily, but pt non compliant - Continue to monitor BUN/Creatinine, and electrolyte - Tramadol 50 mg q8h PRN for severe pain 2. Hypotension - pt on dobutamine drip - perfusing well 3. Diabetes Mellitus - Levemir 20 U HS - ISS low-dose Lispro - accuchecks achs 4. Atrial Fibrillation - Eliquis 5 mg BID - Metropolol 12.5 BID 5. Hyponatremia - Tolvaptan 30 mg daily 6. hx Hypothyroidism - Synthroid 125 mcg daily 7. Schizophrenia and labile mood - Seroquel 100 mg HS Eliquis/PTX HHD Disposition: Patient's Lower extremity has worsened and become painful. She is unable to extend her knee even, much less ambulate secondary to the associated pain. She will need placement into a long-term care facility with physical therapy amenities. Patient was seen, evaluated and discussed with attending, Dr. Perry Flynn PGY1 <Annmarie Amador - Last Filed: 12/25/16 15:09> Objective - Vital Signs/Intake and Output Vital Signs (last 24 hours): Temp Pulse Resp BP Pulse Ox 97.9 F 112 H 20 87/56 L 96 12/25/16 12:00 12/25/16 12:00 12/25/16 12:00 12/25/16 12:00 12/25/16 12:00 Intake and Output: 12/25/16 12/25/16 06:59 18:59 Intake Total 1570 Output Total 402 Balance 1168 - Medications Medications: Current Medications Apixaban (Eliquis) 5 mg PO BID [facility] PRN Reason: Protocol Last Admin: 12/25/16 09:05 Dose: 5 mg Betamethasone/Clotrimazole (Lotrisone) 1 gm TOP BID [facility] Last Admin: 12/25/16 09:08 Dose: 1 applic Digoxin (Lanoxin) 0.125 mg PO 1400 [facility] Last Admin: 12/25/16 14:05 Dose: 0.125 mg Ferrous Sulfate (Feosol) 324 mg PO DAILY [facility] Last Admin: 12/25/16 09:05 Dose: 324 mg Furosemide (Lasix) 40 mg IVP Q6H [facility] Last Admin: 12/25/16 09:06 Dose: 40 mg Dobutamine HCl/Dextrose (Dobutamine/Dextrose 5% 500mg/250ml) 500 mg in 250 mls @ 6.545 mls/hr IV .Q24H PRN; Protocol; 2.5 MCG/KG/MIN PRN Reason: TITRATE PER PROTOCOL Last Admin: 12/25/16 06:43 Dose: 6.545 mls/hr Insulin Detemir (Levemir) 20 unit SC HS [facility] Last Admin: 12/24/16 22:24 Dose: 20 unit Insulin Human Lispro (Humalog Low) 0 units SC [facility] PRN Reason: Protocol Last Admin: 12/25/16 11:53 Dose: 2 units Levothyroxine Sodium (Synthroid) 125 mcg PO DAILY [facility] Last Admin: 12/25/16 09:09 Dose: 125 mcg Losartan Potassium (Cozaar) 12.5 mg PO DAILY [facility] Last Admin: 12/25/16 09:05 Dose: 12.5 mg Metoprolol Tartrate (Lopressor) 12.5 mg PO BID [facility] Last Admin: 12/25/16 09:07 Dose: 12.5 mg Ondansetron HCl (Zofran Inj) 4 mg IVP Q4H PRN PRN Reason: Nausea/Vomiting Pantoprazole Sodium (Protonix Ec Tab) 40 mg PO 0600 [facility] Last Admin: 12/25/16 05:32 Dose: 40 mg Polysaccharide Iron Complex (Ferrex-150) 150 mg PO DAILY [facility] Last Admin: 12/25/16 09:08 Dose: 150 mg Quetiapine Fumarate (Seroquel) 100 mg PO HS [facility] PRN Reason: Protocol Last Admin: 12/24/16 22:23 Dose: 100 mg Spironolactone (Aldactone) 25 mg PO BID [facility] Last Admin: 12/25/16 09:05 Dose: 25 mg Tolvaptan (Samsca) 15 mg PO DAILY [facility] Stop: 12/30/16 10:01 Last Admin: 12/25/16 09:09 Dose: 15 mg Tramadol HCl (Ultram) 50 mg PO Q8 PRN PRN Reason: Pain, moderate (4-7) Last Admin: 12/25/16 08:57 Dose: 50 mg - Labs Labs: 12/24/16 07:50 12/24/16 07:50 PT 11.9 Seconds (9.9-11.8) H 12/13/16 16:30 INR 1.10 (0.93-1.08) H 12/13/16 16:30 APTT 27.1 Seconds (23.7-30.8) 12/13/16 16:30 Attending/Attestation - Attestation I have personally seen and examined this patient.: Yes I have fully participated in the care of the patient.: Yes I have reviewed all pertinent clinical information, including history, physical exam and plan: Yes Notes (Text): I have seen and examined the patient at bedside. Agree with the above note with the following additions/ exceptions: Briefly this is 51 year old female with history of DM-2,CHF (EF~30%), HTN, NICMP, chronic pleural effusion, 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 Patient has completed ancef. Leg edema is about the same as yesterday. Patient gets very frustrated whenever we try to examined her. Increase IV lasix to 40 q6. Patient is also on dobutamine. Continue losartan and spironolactone. Continue tolvaptan for hyponatremia. Continue levemir for DM-2. Continue lopressor and eliquis for afib. Continue synthroid and seroquel. Upon discharge patient will go back to residential as she is not able to take care of herself. Discussed with hvac services professional in detail. Dr Annmarie Amador
[2016-12-24] MEDS: Insulin Detemir 100 units/ml Vial (Levemir) SC SCH (22:24)
[2016-12-25] MEDS: Pantoprazole 40 mg EC Tab PO SCH (05:32)
[2016-12-25] MEDS: DOBUTamine 500mg/250ml D5W 500 MG/250 ML BAG IV PRN (06:43)
[2016-12-25] MEDS: Insulin Lispro (humaLOG) LOW Coverage SC SCH ×4 (08:41→22:10)
[2016-12-25] MEDS: Iron Complex Polysacch 150mg Cap PO SCH (09:08)
[2016-12-25] MEDS: Clotrimazole/Betamethasone Cream(15 gm) TOP SCH ×2 (09:08→17:21)
[2016-12-25] MEDS: Levothyroxine 125 MCG TAB PO SCH (09:09)
[2016-12-25] MEDS: Tolvaptan 15 MG TAB PO SCH (09:09)
[2016-12-25] MEDS: Digoxin 125 mcg (0.125 mg) Tab PO SCH (14:05)
--- NOTE | 2016-12-25 14:28 | PN ---
DATE: 12/25/2016 SUBJECTIVE: The patient is in bed, in no acute distress, nontoxic. PHYSICAL EXAMINATION: VITAL SIGNS: Temperature is 98, blood pressure is 104/60, respiratory rate of 18, heart rate of 115. HEENT: Unremarkable. NECK: Supple. LUNGS: Decreased breath sounds. HEART: Normal S1 and S2. ABDOMEN: Soft and nontender. LABORATORY DATA: Reveals a white count of 9.8, hemoglobin of 10, platelets of 240. BUN of 51, creatinine of 0.9. Urinalysis is noted and microbiology reveals blood cultures are negative. Urine cultures are negative. ASSESSMENT AND PLAN: A 51-year-old female with bilateral lower extremity leg edema and erythema; venous stasis; chronic congestive heart failure; probable superimposed cellulitis, resolved; status post sepsis; hypoxia; ventilatory dependent respiratory failure; antibiotics completed. Currently off of antibiotics. The patient is afebrile and white count is normal. Review of orders reveals the patient is off of antibiotics and . note is reviewed. Review of the imaging reveals the patient had an ultrasound lower extremity, no evidence of deep venous thrombosis. The patient had leg pain and swelling at the time and the patient is on Eliquis. Yehuda Valentino MD
--- NOTE | 2016-12-25 14:59 | CP.PCM.PN ---
Objective - Vital Signs/Intake and Output Vital Signs (last 24 hours): Temp Pulse Resp BP Pulse Ox 97.9 F 112 H 20 87/56 L 96 12/25/16 12:00 12/25/16 12:00 12/25/16 12:00 12/25/16 12:00 12/25/16 12:00 Intake and Output: 12/25/16 12/25/16 06:59 18:59 Intake Total 1570 Output Total 402 Balance 1168 - Medications Medications: Current Medications Apixaban (Eliquis) 5 mg PO BID [facility] PRN Reason: Protocol Last Admin: 12/25/16 09:05 Dose: 5 mg Betamethasone/Clotrimazole (Lotrisone) 1 gm TOP BID [facility] Last Admin: 12/25/16 09:08 Dose: 1 applic Digoxin (Lanoxin) 0.125 mg PO 1400 [facility] Last Admin: 12/25/16 14:05 Dose: 0.125 mg Ferrous Sulfate (Feosol) 324 mg PO DAILY [facility] Last Admin: 12/25/16 09:05 Dose: 324 mg Furosemide (Lasix) 40 mg IVP Q6H [facility] Last Admin: 12/25/16 09:06 Dose: 40 mg Dobutamine HCl/Dextrose (Dobutamine/Dextrose 5% 500mg/250ml) 500 mg in 250 mls @ 6.545 mls/hr IV .Q24H PRN; Protocol; 2.5 MCG/KG/MIN PRN Reason: TITRATE PER PROTOCOL Last Admin: 12/25/16 06:43 Dose: 6.545 mls/hr Insulin Detemir (Levemir) 20 unit SC HS [facility] Last Admin: 12/24/16 22:24 Dose: 20 unit Insulin Human Lispro (Humalog Low) 0 units SC ACHS [facility] PRN Reason: Protocol Last Admin: 12/25/16 11:53 Dose: 2 units Levothyroxine Sodium (Synthroid) 125 mcg PO DAILY [facility] Last Admin: 12/25/16 09:09 Dose: 125 mcg Losartan Potassium (Cozaar) 12.5 mg PO DAILY [facility] Last Admin: 12/25/16 09:05 Dose: 12.5 mg Metoprolol Tartrate (Lopressor) 12.5 mg PO BID [facility] Last Admin: 12/25/16 09:07 Dose: 12.5 mg Ondansetron HCl (Zofran Inj) 4 mg IVP Q4H PRN PRN Reason: Nausea/Vomiting Pantoprazole Sodium (Protonix Ec Tab) 40 mg PO 0600 [facility] Last Admin: 12/25/16 05:32 Dose: 40 mg Polysaccharide Iron Complex (Ferrex-150) 150 mg PO DAILY [facility] Last Admin: 12/25/16 09:08 Dose: 150 mg Quetiapine Fumarate (Seroquel) 100 mg PO HS [facility] PRN Reason: Protocol Last Admin: 12/24/16 22:23 Dose: 100 mg Spironolactone (Aldactone) 25 mg PO BID [facility] Last Admin: 12/25/16 09:05 Dose: 25 mg Tolvaptan (Samsca) 15 mg PO DAILY [facility] Stop: 12/30/16 10:01 Last Admin: 12/25/16 09:09 Dose: 15 mg Tramadol HCl (Ultram) 50 mg PO Q8 PRN PRN Reason: Pain, moderate (4-7) Last Admin: 12/25/16 08:57 Dose: 50 mg - Labs Labs: 12/24/16 07:50 12/24/16 07:50 PT 11.9 Seconds (9.9-11.8) H 12/13/16 16:30 INR 1.10 (0.93-1.08) H 12/13/16 16:30 APTT 27.1 Seconds (23.7-30.8) 12/13/16 16:30 Assessment and Plan (1) CHF exacerbation Status: Acute (2) Pleural effusion Status: Acute (3) Hyponatremia Status: Acute (4) Anemia Status: Chronic (5) Hyperglycemia Status: Resolved (6) Prerenal azotemia Status: Acute
--- NOTE | 2016-12-25 17:56 | PN ---
Seeing for: Dr. Kinney. REASON FOR THE CONSULTATION: Cardiomyopathy, DVT, bilateral leg edema, pleural effusion, pneumonia, gross fluid overload, anasarca. SUBJECTIVE: Denies any chest pain, shortness of breath. Complains of leg pain, but did not wanted me to examine the leg. OBJECTIVE: GENERAL: Lying flat in the bed, not in any apparent distress, but does not want to examine her leg. VITAL SIGNS: Temperature afebrile, heart rate 112, blood pressure 104/60. HEENT: PERRLA. Extraocular muscles intact. NECK: Supple. No carotid bruits or thyromegaly. CHEST: Clear to auscultation. HEART: S1 and S2 regular. ABDOMEN: Soft. EXTREMITIES: Clubbing and cyanosis negative. LABORATORY DATA: Blood workup as follows: WBC is 9.8, hemoglobin 10.8, hematocrit 33.5, platelet count 240. Chemistries shows sodium 135, potassium 4.6, chloride 92, carbon dioxide 29, anion gap of 15, BUN of 51 and creatinine 0.9. IMPRESSION: Gross fluid overload, cardiomyopathy, history of status post dilated cardiomyopathy nonischemic, status post cardiac catheterization, nonischemic cardiomyopathy, history of right subclavian thrombosis, bilateral leg swelling, generalized anasarca, pleural effusion, atrial fibrillation, hypotension and tachycardic, psychiatric disorder, hyponatremia. The patient was on tolvaptan, hyponatremia improved to 131. RECOMMENDATION: Continue dig. Continue Lasix. Continue Dobutrex therapy. I will repeat the lab in the morning. We will transfer care tomorrow to Dr. Kinney. The patient is seeing for Dr. Kinney. Supplement electrolytes as needed. We will check magnesium and phosphorus as well. We will transfer care tomorrow to Dr. Kinney. Thank you Dr. Amador for providing an opportunity in taking care of the patient, Fili Godwin. Mau Orozco MD
--- NOTE | 2016-12-25 21:25 | CP.PCM.PN ---
<SAROJ FLYNN - Last Filed: 12/25/16 21:16> Subjective - Date & Time of Evaluation Date of Evaluation: 12/25/16 Time of Evaluation: 10:30 - Subjective Subjective: patient was seen and examined at bedside. offers no complaints, and states that she has been applying cream to her legs to help with the peeling. states that she elevates her legs also but had to put them down due to discomfort. denies cp , sob, fevers, chills, n/v/d, cough. Objective - Vital Signs/Intake and Output Vital Signs (last 24 hours): Temp Pulse Resp BP Pulse Ox 97.9 F 116 H 20 118/60 95 12/25/16 16:00 12/25/16 18:00 12/25/16 16:00 12/25/16 17:19 12/25/16 16:00 Intake and Output: 12/25/16 12/26/16 18:59 06:59 Intake Total 1570 Output Total 402 Balance 1168 - Medications Medications: Current Medications Apixaban (Eliquis) 5 mg PO BID [facility] PRN Reason: Protocol Last Admin: 12/25/16 17:20 Dose: 5 mg Betamethasone/Clotrimazole (Lotrisone) 1 gm TOP BID [facility] Last Admin: 12/25/16 17:21 Dose: 1 applic Digoxin (Lanoxin) 0.125 mg PO 1400 [facility] Last Admin: 12/25/16 14:05 Dose: 0.125 mg Ferrous Sulfate (Feosol) 324 mg PO DAILY [facility] Last Admin: 12/25/16 09:05 Dose: 324 mg Furosemide (Lasix) 40 mg IVP Q6H [facility] Last Admin: 12/25/16 17:19 Dose: 40 mg Dobutamine HCl/Dextrose (Dobutamine/Dextrose 5% 500mg/250ml) 500 mg in 250 mls @ 6.545 mls/hr IV .Q24H PRN; Protocol; 2.5 MCG/KG/MIN PRN Reason: TITRATE PER PROTOCOL Last Admin: 12/25/16 06:43 Dose: 6.545 mls/hr Insulin Detemir (Levemir) 20 unit SC HS [facility] Last Admin: 12/24/16 22:24 Dose: 20 unit Insulin Human Lispro (Humalog Low) 0 units SC ACHS [facility] PRN Reason: Protocol Last Admin: 12/25/16 17:21 Dose: 2 units Levothyroxine Sodium (Synthroid) 125 mcg PO DAILY [facility] Last Admin: 12/25/16 09:09 Dose: 125 mcg Losartan Potassium (Cozaar) 12.5 mg PO DAILY [facility] Last Admin: 12/25/16 09:05 Dose: 12.5 mg Metoprolol Tartrate (Lopressor) 12.5 mg PO BID [facility] Last Admin: 12/25/16 17:19 Dose: 12.5 mg Ondansetron HCl (Zofran Inj) 4 mg IVP Q4H PRN PRN Reason: Nausea/Vomiting Pantoprazole Sodium (Protonix Ec Tab) 40 mg PO 0600 [facility] Last Admin: 12/25/16 05:32 Dose: 40 mg Polysaccharide Iron Complex (Ferrex-150) 150 mg PO DAILY [facility] Last Admin: 12/25/16 09:08 Dose: 150 mg Quetiapine Fumarate (Seroquel) 100 mg PO HS [facility] PRN Reason: Protocol Last Admin: 12/24/16 22:23 Dose: 100 mg Spironolactone (Aldactone) 25 mg PO BID [facility] Last Admin: 12/25/16 17:20 Dose: 25 mg Tolvaptan (Samsca) 15 mg PO DAILY [facility] Stop: 12/30/16 10:01 Last Admin: 12/25/16 09:09 Dose: 15 mg Tramadol HCl (Ultram) 50 mg PO Q8 PRN PRN Reason: Pain, moderate (4-7) Last Admin: 12/25/16 08:57 Dose: 50 mg - Labs Labs: 12/24/16 07:50 12/24/16 07:50 PT 11.9 Seconds (9.9-11.8) H 12/13/16 16:30 INR 1.10 (0.93-1.08) H 12/13/16 16:30 APTT 27.1 Seconds (23.7-30.8) 12/13/16 16:30 - Additional Findings Additional findings: - Constitutional Appears: Non-toxic, No Acute Distress - Head Exam Head Exam: NORMAL INSPECTION - Eye Exam Eye Exam: EOMI, Normal appearance - ENT Exam ENT Exam: Mucous Membranes Moist - Neck Exam Additional comments: NORMAL INSPECTION - Respiratory Exam Respiratory Exam: Decreased Breath Sounds, NORMAL BREATHING PATTERN. absent: Rales, Rhonchi, Wheezes - Cardiovascular Exam Cardiovascular Exam: Irregular Rhythm, Murmur. absent: JVD - GI/Abdominal Exam GI & Abdominal Exam: Soft, Normal Bowel Sounds. absent: Distended, Tenderness - Extremities Exam Extremities Exam: Pedal Edema (3/4+, above knee bilaterally; TTP throughout; DP/ PT pulses intact). absent: Normal Inspection - Back Exam Back Exam: absent: CVA tenderness (L), CVA tenderness (R) - Neurological Exam Neurological Exam: Alert, Awake - Psychiatric Exam Psychiatric exam: Normal mood - Skin Skin Exam: Warm. absent: Cyanosis Additional comments: b/l LE erythema and skin flaking and peeling, warm to touch Assessment and Plan - Assessment and Plan (Free Text) Assessment: 51 yo F with PMH of DM2, CHF with EF of 30%, HTN, non-ischemic cardiomyopathy, chronic pleural effusion, DVT, Recurrent PE on Eliquis, hypothyroidism, and schizophrenia was admitted with acute on chronic systolic heart failure exacerbation and LE edema with superimposed lower extremity cellulitis. Patient is off antibiotics after having 7 days of IV cefazolin. Patient's LE edema has not resolved. Plan: 1. LE Edema and pain likely 2/2 CHF exacerbation vs cellulitis - recommend to elevate legs, and patient seems to be doing so - Lasix 40 q6 - Spirinolactone 25 mg BID - Continue to monitor BUN/Creatinine, and electrolyte - Tramadol 50 mg q8h PRN for severe pain - lotrisone topical ointment - Digoxin 2. Hypotension - pt on dobutamine drip 2.5 - perfusing well 3. Diabetes Mellitus - Levemir 20 U HS - ISS low-dose Lispro - accuchecks achs 4. Atrial Fibrillation - Eliquis 5 mg BID - Metropolol 12.5 BID, Cozaar 12.5 daily 5. Hyponatremia - Tolvaptan 30 mg daily 6. hx Hypothyroidism - Synthroid 125 mcg daily 7. Schizophrenia and labile mood - Seroquel 100 mg HS Eliquis/PTX HHD Disposition: She will need placement into a long-term care facility with physical therapy amenities as patient unable to ambulate due to worsening LE edema. Patient was seen, evaluated and discussed with attending, Dr. Perry Flynn PGY1 <Annmarie Amador - Last Filed: 12/26/16 15:44> Objective - Vital Signs/Intake and Output Vital Signs (last 24 hours): Temp Pulse Resp BP Pulse Ox 98.1 F 134 H 20 114/54 L 90 L 12/26/16 11:41 12/26/16 14:00 12/26/16 11:41 12/26/16 11:41 12/26/16 05:57 Intake and Output: 12/26/16 12/26/16 06:59 18:59 Intake Total 205 Output Total 1999 Balance -1795 - Medications Medications: Current Medications Apixaban (Eliquis) 5 mg PO BID [facility] PRN Reason: Protocol Last Admin: 12/26/16 09:30 Dose: 5 mg Betamethasone/Clotrimazole (Lotrisone) 1 gm TOP BID [facility] Last Admin: 12/26/16 11:52 Dose: 1 applic Digoxin (Lanoxin) 0.125 mg PO 1400 [facility] Last Admin: 12/26/16 13:51 Dose: 0.125 mg Ferrous Sulfate (Feosol) 324 mg PO DAILY [facility] Last Admin: 12/26/16 09:30 Dose: 324 mg Furosemide (Lasix) 40 mg IVP Q6H [facility] Last Admin: 12/26/16 09:30 Dose: 40 mg Dobutamine HCl/Dextrose (Dobutamine/Dextrose 5% 500mg/250ml) 500 mg in 250 mls @ 6.545 mls/hr IV .Q24H PRN; Protocol; 2.5 MCG/KG/MIN PRN Reason: TITRATE PER PROTOCOL Last Admin: 12/25/16 06:43 Dose: 6.545 mls/hr Insulin Detemir (Levemir) 20 unit SC HS [facility] Last Admin: 12/25/16 22:11 Dose: 20 unit Insulin Human Lispro (Humalog Low) 0 units SC ACHS [facility] PRN Reason: Protocol Last Admin: 12/26/16 11:51 Dose: 2 units Levothyroxine Sodium (Synthroid) 125 mcg PO DAILY [facility] Last Admin: 12/26/16 09:31 Dose: 125 mcg Losartan Potassium (Cozaar) 12.5 mg PO DAILY [facility] Last Admin: 12/26/16 09:29 Dose: Not Given Magnesium Oxide (Mag-Ox) 400 mg PO BID [facility] Last Admin: 12/26/16 10:54 Dose: 400 mg Metoprolol Tartrate (Lopressor) 12.5 mg PO BID [facility] Last Admin: 12/26/16 09:31 Dose: Not Given Ondansetron HCl (Zofran Inj) 4 mg IVP Q4H PRN PRN Reason: Nausea/Vomiting Pantoprazole Sodium (Protonix Ec Tab) 40 mg PO 0600 [facility] Last Admin: 12/26/16 05:03 Dose: 40 mg Polysaccharide Iron Complex (Ferrex-150) 150 mg PO DAILY [facility] Last Admin: 12/26/16 09:36 Dose: Not Given Quetiapine Fumarate (Seroquel) 100 mg PO HS [facility] PRN Reason: Protocol Last Admin: 12/25/16 22:09 Dose: 100 mg Spironolactone (Aldactone) 25 mg PO BID [facility] Last Admin: 12/26/16 09:29 Dose: 25 mg Tolvaptan (Samsca) 15 mg PO DAILY [facility] Stop: 12/30/16 10:01 Last Admin: 12/26/16 10:54 Dose: 15 mg Tramadol HCl (Ultram) 50 mg PO Q8 PRN PRN Reason: Pain, moderate (4-7) Last Admin: 12/26/16 13:50 Dose: 50 mg - Labs Labs: 12/26/16 07:20 12/26/16 07:20 PT 11.9 Seconds (9.9-11.8) H 12/13/16 16:30 INR 1.10 (0.93-1.08) H 12/13/16 16:30 APTT 27.1 Seconds (23.7-30.8) 12/13/16 16:30 Attending/Attestation - Attestation I have personally seen and examined this patient.: Yes I have fully participated in the care of the patient.: Yes I have reviewed all pertinent clinical information, including history, physical exam and plan: Yes Notes (Text): I have seen and examined the patient at bedside. Agree with the above note with the following additions/ exceptions: Briefly this is 51 year old female with history of DM-2, CHF (EF~30%), HTN, NICMP, chronic pleural effusion, 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 Patient has completed ancef. Leg edema has improved. Patient gets very frustrated whenever we try to examined her. Increase IV lasix to 40 q6. Patient is also on dobutamine. Continue losartan and spironolactone. Continue tolvaptan for hyponatremia. Continue levemir for DM-2. Continue lopressor and eliquis for afib. Continue synthroid and seroquel. Upon discharge patient will go back to senior living as she is not able to take care of herself. Discussed with supply officer in detail. Dr Annmarie Amador
[2016-12-25] MEDS: Insulin Detemir 100 units/ml Vial (Levemir) SC SCH (22:11)
[2016-12-26] MEDS: Pantoprazole 40 mg EC Tab PO SCH (05:03)
[2016-12-26 07:34] LABS: HEMATOCRIT 34.4 % (36.0-48.0); MEAN CELL VOLUME 85.8 fl (80.0-105.0); MEAN CORPUSCULAR HEMOGLOBIN 27.9 pg (25.0-35.0); MEAN CORPUSCULAR HGB CONC 32.6 g/dl (31.0-37.0); MEAN PLATELET VOLUME 9.6 fl (7.0-11.0); RED CELL DISTRIBUTION WIDTH 19.1 % (11.5-14.5); WHITE BLOOD COUNT 10.2 10^3/ul (4.5-11.0)
[2016-12-26 08:16] LABS: ALKALINE PHOSPHATASE 118 U/L (38-126); ALT/SGPT 22 U/L (7-56); AST/SGOT 22 U/L (14-36); BILIRUBIN,TOTAL 0.7 mg/dL (0.2-1.3); BLOOD UREA NITROGEN 39 mg/dL (7-21); CALCIUM 9.7 mg/dL (8.4-10.5); CARBON DIOXIDE 31 mmol/L (21-33); CHLORIDE 96 mmol/L (98-107); GFR AFRICAN-AMERICAN > 60; GLUCOSE,RANDOM 118 mg/dL (70-110); MAGNESIUM 1.6 mg/dL (1.7-2.2); POTASSIUM 3.8 mmol/L (3.6-5.0); SODIUM 138 mmol/L (132-148); TOTAL PROTEIN 6.2 g/dL (5.8-8.3)
[2016-12-26] MEDS: Insulin Lispro (humaLOG) LOW Coverage SC SCH ×4 (08:18→21:15)
[2016-12-26] MEDS ORDERED: Magnesium Sulfate 1 gm in D5W 1 GM/100 ML BAG IVPB ONE (08:59)
--- NOTE | 2016-12-26 09:03 | PN ---
DATE: 12/24/2016 NEPHROLOGY FOLLOWUP NOTE SUBJECTIVE: A 51-year-old female with past medical history of hypertension, diabetes, CHF with severe systolic dysfunction, admitted with bilateral leg cellulitis, decompensated CHF. Nephrology initially consulted for hyponatremia. The patient yesterday started on milrinone drip in the setting of acute renal failure, reports being in pain today affecting her legs, her shoulders, her neck; the patient not getting out of bed today due to the pain; incontinent per nursing staff. PHYSICAL EXAMINATION: GENERAL: No distress, conversing coherently in full sentences. VITAL SIGNS: This morning; blood pressure 95/58, heart rate 117, respirations 20, temperature 97.8, O2 saturation 97% on room air. HEENT: Moist mucous membranes. Nonicteric. RESPIRATORY: Lungs clear to auscultation bilaterally, although limited exam due to the patient's non-cooperation. HEART: Irregular rate, S3 gallop present. ABDOMEN: Soft, tender. EXTREMITIES: Anasarca, markedly edematous legs, erythema of bilateral lower legs with weeping of skin. SKIN: No cyanosis. PSYCHIATRIC: Somewhat agitated. LABORATORY DATA: This morning, CBC; WBC 9.8, hemoglobin 10.8, hematocrit 33.5, platelets 240. Chemistry panel: Sodium 131, potassium 4.7, chloride 92, bicarb 29, BUN 51, creatinine 0.9, glucose 176, calcium 8.7. ASSESSMENT AND PLAN: 1. Congestive heart failure exacerbation, acute, severely decompensated, systolic congestive heart failure with mitral regurgitation; the patient has been in a chronic state of congestive heart failure decompensation; worsened yesterday after switching intravenous diuretics to p.o. b.i.d. torsemide in anticipation of discharge with ensuing and organ dysfunction, i.e., acute renal failure; the patient therefore started on dobutamine drip per Cardiology recommendation; renal function subsequently improved today as is hyponatremia; the patient is still markedly edematous and will need to be continued on ionotropic support as well as aggressive diuresis in an attempt to optimize cardiac status; increase Lasix frequency to q. 6 hours (will decrease dose to 40 mg intravenously). 2. Acute renal failure, prerenal etiology in the setting of acute decompensated congestive heart failure; improved with ionotropic support; continue diuretics as above to optimize cardiac status; okay to continue with [id number] system blockade for the same purpose. 3. Hyponatremia secondary to severe congestive heart failure; improved after ionotropic support. Continue with tolvaptan 15 mg p.o. daily. 4. Pain, the patient with musculoskeletal pain, avoid any nonsteroidal antiinflammatory drugs, okay to give tramadol. 5. Akash French MD
[2016-12-26] MEDS: Iron Complex Polysacch 150mg Cap PO SCH ×2 (09:30→09:36)
[2016-12-26] MEDS: Levothyroxine 125 MCG TAB PO SCH (09:31)
[2016-12-26] MEDS: Magnesium Oxide 400 mg Tab UD PO SCH ×2 (10:54→17:11)
[2016-12-26] MEDS: Tolvaptan 15 MG TAB PO SCH (10:54)
[2016-12-26] MEDS: Clotrimazole/Betamethasone Cream(15 gm) TOP SCH ×2 (11:52→18:03)
--- NOTE | 2016-12-26 12:42 | CP.PCM.PN ---
<Christiano Lopes - Last Filed: 12/26/16 12:45> Subjective - Date & Time of Evaluation Date of Evaluation: 12/21/16 Time of Evaluation: 09:00 - Subjective Subjective: Christiano Lopes DO, PGY-1, Hospitalist Service Patient seen and examied at bedside. Patient complains of LE pain. Patient denies CP, SOB, N/V/D. Nurse reports no events overnight. Objective - Vital Signs/Intake and Output Vital Signs (last 24 hours): Temp Pulse Resp BP Pulse Ox 98.1 F 124 H 20 114/54 L 90 L 12/26/16 11:41 12/26/16 11:41 12/26/16 11:41 12/26/16 11:41 12/26/16 05:57 Intake and Output: 12/26/16 12/26/16 06:59 18:59 Intake Total 205 Output Total 1999 Balance -1795 - Medications Medications: Current Medications Apixaban (Eliquis) 5 mg PO BID [facility] PRN Reason: Protocol Last Admin: 12/26/16 09:30 Dose: 5 mg Betamethasone/Clotrimazole (Lotrisone) 1 gm TOP BID [facility] Last Admin: 12/26/16 11:52 Dose: 1 applic Digoxin (Lanoxin) 0.125 mg PO 1400 [facility] Last Admin: 12/25/16 14:05 Dose: 0.125 mg Ferrous Sulfate (Feosol) 324 mg PO DAILY [facility] Last Admin: 12/26/16 09:30 Dose: 324 mg Furosemide (Lasix) 40 mg IVP Q6H [facility] Last Admin: 12/26/16 09:30 Dose: 40 mg Dobutamine HCl/Dextrose (Dobutamine/Dextrose 5% 500mg/250ml) 500 mg in 250 mls @ 6.545 mls/hr IV .Q24H PRN; Protocol; 2.5 MCG/KG/MIN PRN Reason: TITRATE PER PROTOCOL Last Admin: 12/25/16 06:43 Dose: 6.545 mls/hr Insulin Detemir (Levemir) 20 unit SC HS [facility] Last Admin: 12/25/16 22:11 Dose: 20 unit Insulin Human Lispro (Humalog Low) 0 units SC ACHS [facility] PRN Reason: Protocol Last Admin: 12/26/16 11:51 Dose: 2 units Levothyroxine Sodium (Synthroid) 125 mcg PO DAILY [facility] Last Admin: 12/26/16 09:31 Dose: 125 mcg Losartan Potassium (Cozaar) 12.5 mg PO DAILY [facility] Last Admin: 12/26/16 09:29 Dose: Not Given Magnesium Oxide (Mag-Ox) 400 mg PO BID [facility] Last Admin: 12/26/16 10:54 Dose: 400 mg Metoprolol Tartrate (Lopressor) 12.5 mg PO BID [facility] Last Admin: 12/26/16 09:31 Dose: Not Given Ondansetron HCl (Zofran Inj) 4 mg IVP Q4H PRN PRN Reason: Nausea/Vomiting Pantoprazole Sodium (Protonix Ec Tab) 40 mg PO 0600 [facility] Last Admin: 12/26/16 05:03 Dose: 40 mg Polysaccharide Iron Complex (Ferrex-150) 150 mg PO DAILY [facility] Last Admin: 12/26/16 09:36 Dose: Not Given Quetiapine Fumarate (Seroquel) 100 mg PO [facility] PRN Reason: Protocol Last Admin: 12/25/16 22:09 Dose: 100 mg Spironolactone (Aldactone) 25 mg PO BID [facility] Last Admin: 12/26/16 09:29 Dose: 25 mg Tolvaptan (Samsca) 15 mg PO DAILY [facility] Stop: 12/30/16 10:01 Last Admin: 12/26/16 10:54 Dose: 15 mg Tramadol HCl (Ultram) 50 mg PO Q8 PRN PRN Reason: Pain, moderate (4-7) Last Admin: 12/25/16 08:57 Dose: 50 mg - Labs Labs: 12/26/16 07:20 12/26/16 07:20 PT 11.9 Seconds (9.9-11.8) H 12/13/16 16:30 INR 1.10 (0.93-1.08) H 12/13/16 16:30 APTT 27.1 Seconds (23.7-30.8) 12/13/16 16:30 - Constitutional Appears: Non-toxic, No Acute Distress - Head Exam Head Exam: ATRAUMATIC, NORMOCEPHALIC - Eye Exam Eye Exam: EOMI, Normal appearance, PERRL - ENT Exam ENT Exam: Mucous Membranes Moist, Normal Oropharynx - Neck Exam Neck Exam: Normal Inspection. absent: Lymphadenopathy, Thyromegaly - Respiratory Exam Respiratory Exam: Rales, NORMAL BREATHING PATTERN. absent: Respiratory Distress - Cardiovascular Exam Cardiovascular Exam: RRR, +S1, +S2 - GI/Abdominal Exam GI & Abdominal Exam: Soft, Normal Bowel Sounds. absent: Guarding, Rigid - Extremities Exam Additional comments: LE edema 1/4, with erythema - Back Exam Back Exam: NORMAL INSPECTION. absent: CVA tenderness (L), CVA tenderness (R) - Neurological Exam Neurological Exam: Alert, Awake, CN II-XII Intact, Oriented x3 Neuro motor strength exam: Left Upper Extremity: 5, Right Upper Extremity: 5 - Psychiatric Exam Psychiatric exam: Flat Affect, Normal Mood - Skin Skin Exam: Dry, Intact, Normal Color, Warm Assessment and Plan - Assessment and Plan (Free Text) Assessment: 51 y/o F with PMH of DM2, CHF with EF of 30%, HTN, non-ischemic cardiomyopathy, chronic pleural effusion, DVT, Recurrent PE on Eliquis, hypothyroidism, and schizophrenia presents with CHF exacerbation and cellulitis. CXR appears to show b/l pulmonary infiltrates in the setting of elevated BNP. Pt also had b/l lower extremity US which was negative for DVT. Pt will have consults placed to Cardiology and ID. Pt will be admitted for IV medications and further monitoring of her symptoms. Plan: 1. CHF exacerbation Lasix 40 mg daily Spironolactone 50 mg BID, Lopressor, and Digoxin continued Recent Echo showed EF of 30% Cardiology consulted, Dr. Kinney Strict I's and O's Daily weights Fluid restriction Nephrology consulted, Dr. French 2. Cellulitis Cefazolin daily, will change based on blood cultures. Appears to be chronic LE edema with possible superimposed bacterial infection. Per ID Dr. Bean, upon discharge patient can be sent home on PO doxycycline and Augmentin, appreciate rec's. 3. DM Home Levemir resumed Will added ISS for coverage Recent HgA1c 11.5 4. A-fib Home Lopressor continued 5. Recurrent PE Continue Eliquis LE US negative for DVT 6. Hypothyroidism Continue Synthroid 7. PPX Protonix Eliquis [facility] <Annmarie Amador B - Last Filed: 01/03/17 15:41> Objective - Vital Signs/Intake and Output Vital Signs (last 24 hours): Temp Pulse Resp BP Pulse Ox 98.5 F 89 20 113/74 97 01/03/17 12:00 01/03/17 14:00 01/03/17 12:00 01/03/17 12:00 01/03/17 06:00 Intake and Output: 01/03/17 01/03/17 06:59 18:59 Intake Total 120 420 Output Total 0 600 Balance 120 -180 - Medications Medications: Current Medications Apixaban (Eliquis) 5 mg PO BID [facility] PRN Reason: Protocol Last Admin: 01/03/17 10:56 Dose: 5 mg Clonazepam (Klonopin) 0.5 mg PO DAILY [facility] PRN Reason: Protocol Last Admin: 01/03/17 10:57 Dose: 0.5 mg Digoxin (Lanoxin) 0.125 mg PO 1400 [facility] Last Admin: 01/03/17 13:02 Dose: 0.125 mg Ferrous Sulfate (Feosol) 324 mg PO DAILY [facility] Last Admin: 01/03/17 10:57 Dose: 324 mg Furosemide (Lasix) 20 mg IVP Q8 [facility] Last Admin: 01/01/17 05:33 Dose: Not Given Gabapentin (Neurontin) 100 mg PO BID [facility] PRN Reason: Protocol Last Admin: 01/03/17 11:01 Dose: 100 mg Insulin Detemir (Levemir) 25 unit SC HS [facility] Last Admin: 01/02/17 21:53 Dose: 25 unit Insulin Human Lispro (Humalog Low) 0 units SC ACHS [facility] PRN Reason: Protocol Last Admin: 01/03/17 12:04 Dose: Not Given Levothyroxine Sodium (Synthroid) 125 mcg PO DAILY [facility] Last Admin: 01/03/17 11:02 Dose: 125 mcg Losartan Potassium (Cozaar) 12.5 mg PO DAILY [facility] Last Admin: 01/03/17 10:56 Dose: 12.5 mg Metoprolol Tartrate (Lopressor) 12.5 mg PO BID [facility] Last Admin: 01/03/17 10:58 Dose: 12.5 mg Ondansetron HCl (Zofran Inj) 4 mg IVP Q4H PRN PRN Reason: Nausea/Vomiting Last Admin: 01/02/17 10:05 Dose: 4 mg Pantoprazole Sodium (Protonix Ec Tab) 40 mg PO 0600 [facility] Last Admin: 01/03/17 06:24 Dose: 40 mg Polysaccharide Iron Complex (Ferrex-150) 150 mg PO DAILY [facility] Last Admin: 01/03/17 10:57 Dose: 150 mg Quetiapine Fumarate (Seroquel) 50 mg PO AMHS [facility] PRN Reason: Protocol Last Admin: 01/03/17 11:01 Dose: 50 mg Spironolactone (Aldactone) 50 mg PO BID [facility] Last Admin: 01/03/17 10:54 Dose: 50 mg Torsemide (Demadex) 30 mg PO Q12H [facility] Last Admin: 01/03/17 10:56 Dose: 30 mg Tramadol HCl (Ultram) 50 mg PO Q8 PRN PRN Reason: Pain, moderate (4-7) Last Admin: 01/02/17 06:41 Dose: 50 mg - Labs Labs: 01/02/17 06:00 01/03/17 14:30 PT 11.9 Seconds (9.9-11.8) H 12/13/16 16:30 INR 1.10 (0.93-1.08) H 12/13/16 16:30 APTT 27.1 Seconds (23.7-30.8) 12/13/16 16:30 Attending/Attestation - Attestation I have personally seen and examined this patient.: Yes I have fully participated in the care of the patient.: Yes I have reviewed all pertinent clinical information, including history, physical exam and plan: Yes Notes (Text): I have seen and examined the patient at bedside. Agree with the above note with the following additions/ exceptions: Briefly this is 51 year old female with history of DM-2M CHF (EF~30%), HTN, NIICMP, chronic pleural effusion, 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 Patient has completed ancef. Still has significant edema. Will restart IV lasix 40 q8 and continue losartan and spironolactone. Continue levemir for DM-2. Continue lopressor and eliquis for afib. Continue synthroid and seroquel. Upon discharge [facility] as she is not able to take care fo herself. Discussed with ID, motel keeper and technical writer and editor. Dr Annmarie Amador
--- NOTE | 2016-12-26 12:49 | CP.PCM.PN ---
<Christiano Lopes - Last Filed: 12/26/16 19:25> Subjective - Date & Time of Evaluation Date of Evaluation: 12/26/16 Time of Evaluation: 08:00 - Subjective Subjective: Christiano Lopes DO, PGY-1, Hospitalist Service Patient seen and examined at bedside. Patient states "quit looking at my legs already." Patient denies CP, SOB, N/V/D. Objective - Vital Signs/Intake and Output Vital Signs (last 24 hours): Temp Pulse Resp BP Pulse Ox 98.1 F 124 H 20 114/54 L 90 L 12/26/16 11:41 12/26/16 11:41 12/26/16 11:41 12/26/16 11:41 12/26/16 05:57 Intake and Output: 12/26/16 12/26/16 06:59 18:59 Intake Total 205 Output Total 1999 Balance -1795 - Medications Medications: Current Medications Apixaban (Eliquis) 5 mg PO BID [facility] PRN Reason: Protocol Last Admin: 12/26/16 09:30 Dose: 5 mg Betamethasone/Clotrimazole (Lotrisone) 1 gm TOP BID [facility] Last Admin: 12/26/16 11:52 Dose: 1 applic Digoxin (Lanoxin) 0.125 mg PO 1400 [facility] Last Admin: 12/25/16 14:05 Dose: 0.125 mg Ferrous Sulfate (Feosol) 324 mg PO DAILY [facility] Last Admin: 12/26/16 09:30 Dose: 324 mg Furosemide (Lasix) 40 mg IVP Q6H [facility] Last Admin: 12/26/16 09:30 Dose: 40 mg Dobutamine HCl/Dextrose (Dobutamine/Dextrose 5% 500mg/250ml) 500 mg in 250 mls @ 6.545 mls/hr IV .Q24H PRN; Protocol; 2.5 MCG/KG/MIN PRN Reason: TITRATE PER PROTOCOL Last Admin: 12/25/16 06:43 Dose: 6.545 mls/hr Insulin Detemir (Levemir) 20 unit SC HS [facility] Last Admin: 12/25/16 22:11 Dose: 20 unit Insulin Human Lispro (Humalog Low) 0 units SC ACHS [facility] PRN Reason: Protocol Last Admin: 12/26/16 11:51 Dose: 2 units Levothyroxine Sodium (Synthroid) 125 mcg PO DAILY [facility] Last Admin: 12/26/16 09:31 Dose: 125 mcg Losartan Potassium (Cozaar) 12.5 mg PO DAILY [facility] Last Admin: 12/26/16 09:29 Dose: Not Given Magnesium Oxide (Mag-Ox) 400 mg PO BID [facility] Last Admin: 12/26/16 10:54 Dose: 400 mg Metoprolol Tartrate (Lopressor) 12.5 mg PO BID [facility] Last Admin: 12/26/16 09:31 Dose: Not Given Ondansetron HCl (Zofran Inj) 4 mg IVP Q4H PRN PRN Reason: Nausea/Vomiting Pantoprazole Sodium (Protonix Ec Tab) 40 mg PO 0600 [facility] Last Admin: 12/26/16 05:03 Dose: 40 mg Polysaccharide Iron Complex (Ferrex-150) 150 mg PO DAILY [facility] Last Admin: 12/26/16 09:36 Dose: Not Given Quetiapine Fumarate (Seroquel) 100 mg PO HS [facility] PRN Reason: Protocol Last Admin: 12/25/16 22:09 Dose: 100 mg Spironolactone (Aldactone) 25 mg PO BID [facility] Last Admin: 12/26/16 09:29 Dose: 25 mg Tolvaptan (Samsca) 15 mg PO DAILY [facility] Stop: 12/30/16 10:01 Last Admin: 12/26/16 10:54 Dose: 15 mg Tramadol HCl (Ultram) 50 mg PO Q8 PRN PRN Reason: Pain, moderate (4-7) Last Admin: 12/25/16 08:57 Dose: 50 mg - Labs Labs: 12/26/16 07:20 12/26/16 07:20 PT 11.9 Seconds (9.9-11.8) H 12/13/16 16:30 INR 1.10 (0.93-1.08) H 12/13/16 16:30 APTT 27.1 Seconds (23.7-30.8) 12/13/16 16:30 - Constitutional Appears: No Acute Distress, Unkempt - Head Exam Head Exam: ATRAUMATIC, NORMOCEPHALIC - Eye Exam Eye Exam: EOMI, Normal appearance, PERRL Pupil Exam: NORMAL ACCOMODATION, PERRL - ENT Exam ENT Exam: Mucous Membranes Moist, Normal Oropharynx - Neck Exam Neck Exam: Normal Inspection. absent: Thyromegaly - Respiratory Exam Respiratory Exam: Clear to Ausculation Bilateral, NORMAL BREATHING PATTERN - Cardiovascular Exam Cardiovascular Exam: RRR, +S1, +S2 - GI/Abdominal Exam GI & Abdominal Exam: Soft, Normal Bowel Sounds - Extremities Exam Additional comments: LE edema 1/4, some redness, improved compared to three days prior - Neurological Exam Neurological Exam: Alert, CN II-XII Intact, Oriented x3 - Psychiatric Exam Psychiatric exam: Agitated, Normal Affect, Normal Mood - Skin Skin Exam: Dry, Intact, Normal Color, Warm Assessment and Plan - Assessment and Plan (Free Text) Assessment: 51 y/o F with PMH of DM2, CHF with EF of 30%, HTN, non-ischemic cardiomyopathy, chronic pleural effusion, DVT, Recurrent PE on Eliquis, hypothyroidism, and schizophrenia was admitted with acute on chronic systolic heart failure exacerbation and LE edema with superimposed lower extremity cellulitis. Patient has completed 7 days of IV Cefazolin. Patient's LE edema appears to be improving. Plan: Disposition: She will need placement into a long-term care facility with physical therapy amenities. 1) LE Edema likely secondary to decompensated HF and chroic LE edema - IV Furosemide 40 mg q6h - Dobutamine drip 2.5 mcg/kg/min - Spirinolactone 25 mg BID - Losaratan 12.5 - Leg elevation to heart level for at least 30 minutes, four times daily - Continue to monitor BUN/Creatinine, and electrolyte - Magnesium repleted via 800 Mg PO - Tramadol 50 mg q8h PRN for severe pain 2. Diabetes Mellitus - Levemir 20 U HS - ISS low-dose Lispro 3. Atrial Fibrillation - Eliquis 5 mg BID - Metropolol 12.5 BID - Digoxin 4) Hyponatremia - Tolvaptan 15 mg daily 5. Hypothyroidism - Synthroid 125 mcg daily 6) Schizophrenia and labile mood - Seroquel 100 mg HS 7) GI prophylaxis: Protonix 40 mg PO daily <Annmarie Amador - Last Filed: 01/03/17 15:35> Objective - Vital Signs/Intake and Output Vital Signs (last 24 hours): Temp Pulse Resp BP Pulse Ox 98.5 F 89 20 113/74 97 01/03/17 12:00 01/03/17 14:00 01/03/17 12:00 01/03/17 12:00 01/03/17 06:00 Intake and Output: 01/03/17 01/03/17 06:59 18:59 Intake Total 120 420 Output Total 0 600 Balance 120 -180 - Medications Medications: Current Medications Apixaban (Eliquis) 5 mg PO BID [facility] PRN Reason: Protocol Last Admin: 01/03/17 10:56 Dose: 5 mg Clonazepam (Klonopin) 0.5 mg PO DAILY [facility] PRN Reason: Protocol Last Admin: 01/03/17 10:57 Dose: 0.5 mg Digoxin (Lanoxin) 0.125 mg PO 1400 [facility] Last Admin: 01/03/17 13:02 Dose: 0.125 mg Ferrous Sulfate (Feosol) 324 mg PO DAILY [facility] Last Admin: 01/03/17 10:57 Dose: 324 mg Furosemide (Lasix) 20 mg IVP Q8 [facility] Last Admin: 01/01/17 05:33 Dose: Not Given Gabapentin (Neurontin) 100 mg PO BID [facility] PRN Reason: Protocol Last Admin: 01/03/17 11:01 Dose: 100 mg Insulin Detemir (Levemir) 25 unit SC HS [facility] Last Admin: 01/02/17 21:53 Dose: 25 unit Insulin Human Lispro (Humalog Low) 0 units SC ACHS [facility] PRN Reason: Protocol Last Admin: 01/03/17 12:04 Dose: Not Given Levothyroxine Sodium (Synthroid) 125 mcg PO DAILY [facility] Last Admin: 01/03/17 11:02 Dose: 125 mcg Losartan Potassium (Cozaar) 12.5 mg PO DAILY [facility] Last Admin: 01/03/17 10:56 Dose: 12.5 mg Metoprolol Tartrate (Lopressor) 12.5 mg PO BID [facility] Last Admin: 01/03/17 10:58 Dose: 12.5 mg Ondansetron HCl (Zofran Inj) 4 mg IVP Q4H PRN PRN Reason: Nausea/Vomiting Last Admin: 01/02/17 10:05 Dose: 4 mg Pantoprazole Sodium (Protonix Ec Tab) 40 mg PO 0600 [facility] Last Admin: 01/03/17 06:24 Dose: 40 mg Polysaccharide Iron Complex (Ferrex-150) 150 mg PO DAILY [facility] Last Admin: 01/03/17 10:57 Dose: 150 mg Quetiapine Fumarate (Seroquel) 50 mg PO [facility] PRN Reason: Protocol Last Admin: 01/03/17 11:01 Dose: 50 mg Spironolactone (Aldactone) 50 mg PO BID [facility] Last Admin: 01/03/17 10:54 Dose: 50 mg Torsemide (Demadex) 30 mg PO Q12H [facility] Last Admin: 01/03/17 10:56 Dose: 30 mg Tramadol HCl (Ultram) 50 mg PO Q8 PRN PRN Reason: Pain, moderate (4-7) Last Admin: 01/02/17 06:41 Dose: 50 mg - Labs Labs: 01/02/17 06:00 01/03/17 14:30 PT 11.9 Seconds (9.9-11.8) H 12/13/16 16:30 INR 1.10 (0.93-1.08) H 12/13/16 16:30 APTT 27.1 Seconds (23.7-30.8) 12/13/16 16:30 Attending/Attestation - Attestation I have personally seen and examined this patient.: Yes I have fully participated in the care of the patient.: Yes I have reviewed all pertinent clinical information, including history, physical exam and plan: Yes Notes (Text): I have seen and examined the patient at bedside. Agree with the above note with the following additions/ exceptions: Briefly this is 51 year old female with history of DM-2, CHF (EF~30%), HTN, NICMP, chronic pleural effusion, 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 Patient has completed ancef. Leg edema has improved. Patient gets very frustrated whenever we try to examined her. Continue IV lasix to 40 q6 and aldactone. Patient is also on dobutamine. Continue losartan and spironolactone. Continue tolvaptan for hyponatremia. Continue levemir for DM-2. Continue lopressor and eliquis for afib. Continue synthroid and seroquel. Upon discharge patient will go back to skilled nursing as she is not able to take care of herself. Discussed with pattern setter in detail. Dr Annmarie Amador
[2016-12-26] MEDS: Digoxin 125 mcg (0.125 mg) Tab PO SCH (13:51)
--- NOTE | 2016-12-26 18:59 | PN ---
SUBJECTIVE: The patient was started on Dobutrex 2.5 mcg/kg per minute because of continued worsening CHF. She is still short of breath and experiencing bilateral leg pain and leg swelling. PHYSICAL EXAMINATION VITAL SIGNS: Blood pressure 114/54, heart rate 124, temperature 98.1. The patient is in sinus tachycardia. Respirations 20. HEENT: Facial edema. NECK: No JVD. CHEST: Absent breath sounds over both bases. HEART: S1 and S2, regular. EXTREMITIES: Significant bilateral leg cellulitis. LABORATORY DATA: Hemoglobin and hematocrit of 11.2 and 34.4, white count and platelet count are within normal limit. SMA-7: Sodium 138, potassium 3.8, chloride 96, CO2 is 31, glucose 118, BUN 39 and creatinine 0.7. Magnesium is 1.6. ASSESSMENT: 1. Dilated cardiomyopathy. 2. Anasarca. 3. Hypomagnesemia. 4. Bilateral leg cellulitis. 5. Right subclavian deep venous thrombosis. 6. Depression. RECOMMENDATIONS: Continue Eliquis at 5 mg twice a day, Dobutrex infusion 2.5 mcg/kg per minute, Cozaar 12.5 mg once a day, Aldactone 25 mg once a day, digoxin 0.125 mg daily, Lasix 40 mg intravenously q. 6 hours, magnesium oxide 400 mg twice a day, Synthroid 125 mcg once a day. Cesar Kinney MD
[2016-12-26] MEDS: Insulin Detemir 100 units/ml Vial (Levemir) SC SCH (21:15)
[2016-12-26] MEDS: DOBUTamine 500mg/250ml D5W 500 MG/250 ML BAG IV PRN (21:18)
--- NOTE | 2016-12-26 21:29 | CP.PCM.PN ---
Subjective - Date & Time of Evaluation Date of Evaluation: 12/26/16 Time of Evaluation: 11:00 - Subjective Subjective: Still complaining of leg pain, not wanting to get out of bed; Objective - Vital Signs/Intake and Output Vital Signs (last 24 hours): Temp Pulse Resp BP Pulse Ox 98.7 F 131 H 20 118/70 90 L 12/26/16 18:52 12/26/16 21:18 12/26/16 18:52 12/26/16 21:18 12/26/16 05:57 - Medications Medications: Current Medications Apixaban (Eliquis) 5 mg PO BID [facility] PRN Reason: Protocol Last Admin: 12/26/16 17:11 Dose: 5 mg Betamethasone/Clotrimazole (Lotrisone) 1 gm TOP BID [facility] Last Admin: 12/26/16 18:03 Dose: 1 applic Digoxin (Lanoxin) 0.125 mg PO 1400 [facility] Last Admin: 12/26/16 13:51 Dose: 0.125 mg Ferrous Sulfate (Feosol) 324 mg PO DAILY [facility] Last Admin: 12/26/16 09:30 Dose: 324 mg Furosemide (Lasix) 40 mg IVP Q6H [facility] Last Admin: 12/26/16 21:16 Dose: 40 mg Dobutamine HCl/Dextrose (Dobutamine/Dextrose 5% 500mg/250ml) 500 mg in 250 mls @ 6.545 mls/hr IV .Q24H PRN; Protocol; 2.5 MCG/KG/MIN PRN Reason: TITRATE PER PROTOCOL Last Admin: 12/26/16 21:18 Dose: 6.545 mls/hr Insulin Detemir (Levemir) 20 unit SC HS [facility] Last Admin: 12/26/16 21:15 Dose: 20 unit Insulin Human Lispro (Humalog Low) 0 units SC ACHS [facility] PRN Reason: Protocol Last Admin: 12/26/16 21:15 Dose: 2 units Levothyroxine Sodium (Synthroid) 125 mcg PO DAILY [facility] Last Admin: 12/26/16 09:31 Dose: 125 mcg Losartan Potassium (Cozaar) 12.5 mg PO DAILY [facility] Last Admin: 12/26/16 09:29 Dose: Not Given Magnesium Oxide (Mag-Ox) 400 mg PO BID [facility] Last Admin: 12/26/16 17:11 Dose: 400 mg Metoprolol Tartrate (Lopressor) 12.5 mg PO BID [facility] Last Admin: 12/26/16 17:11 Dose: 12.5 mg Ondansetron HCl (Zofran Inj) 4 mg IVP Q4H PRN PRN Reason: Nausea/Vomiting Pantoprazole Sodium (Protonix Ec Tab) 40 mg PO 0600 [facility] Last Admin: 12/26/16 05:03 Dose: 40 mg Polysaccharide Iron Complex (Ferrex-150) 150 mg PO DAILY [facility] Last Admin: 12/26/16 09:36 Dose: Not Given Quetiapine Fumarate (Seroquel) 100 mg PO HS [facility] PRN Reason: Protocol Last Admin: 12/26/16 21:16 Dose: 100 mg Spironolactone (Aldactone) 25 mg PO BID [facility] Last Admin: 12/26/16 17:11 Dose: 25 mg Tolvaptan (Samsca) 15 mg PO DAILY [facility] Stop: 12/30/16 10:01 Last Admin: 12/26/16 10:54 Dose: 15 mg Tramadol HCl (Ultram) 50 mg PO Q8 PRN PRN Reason: Pain, moderate (4-7) Last Admin: 12/26/16 13:50 Dose: 50 mg - Labs Labs: 12/26/16 07:20 12/26/16 07:20 PT 11.9 Seconds (9.9-11.8) H 12/13/16 16:30 INR 1.10 (0.93-1.08) H 12/13/16 16:30 APTT 27.1 Seconds (23.7-30.8) 12/13/16 16:30 - Constitutional Appears: No Acute Distress - Head Exam Head Exam: NORMAL INSPECTION - Eye Exam Eye Exam: Normal appearance - ENT Exam ENT Exam: Mucous Membranes Moist - Respiratory Exam Additional comments: decreased breath sounds at bases; - Cardiovascular Exam Cardiovascular Exam: Irregular Rhythm. absent: Gallop - GI/Abdominal Exam GI & Abdominal Exam: Soft, Tenderness - Extremities Exam Additional comments: Marked leg edema but improving; - Neurological Exam Neurological Exam: Alert, Awake - Psychiatric Exam Psychiatric exam: Agitated - Skin Skin Exam: Warm. absent: Cyanosis Assessment and Plan (1) CHF exacerbation Assessment & Plan: Severely decompensated systolic CHF, improving with inotropic support and diuresis (lasix IV 40 mg q6h and aldactone 25 mg bid); getting contraction alkalosis, will monitor for now; may need to decrease frequency of loop diuretics and increase aldactone dose; question of long-term need for inotropic support remains; Status: Acute (2) Pleural effusion Assessment & Plan: Secondary to severe CHF; stable respiratory status; continue diuretics; Status: Acute (3) Hyponatremia Assessment & Plan: Much improved after starting inotropic support; constant loop diuretic effect also helping; will hold tolvaptan for now and monitor; Status: Acute (4) Anemia Status: Chronic (5) Hyperglycemia Status: Resolved (6) Prerenal azotemia Assessment & Plan: In the setting of aggressive diuresis for CHF; overall improved with inotropic support; continue same management; Status: Acute
[2016-12-27 06:42] LABS: HEMATOCRIT 36.8 % (36.0-48.0); MEAN CORPUSCULAR HEMOGLOBIN 28.1 pg (25.0-35.0); MEAN CORPUSCULAR HGB CONC 32.3 g/dl (31.0-37.0); MEAN PLATELET VOLUME 9.8 fl (7.0-11.0); RED CELL DISTRIBUTION WIDTH 19.1 % (11.5-14.5); WHITE BLOOD COUNT 10.7 10^3/ul (4.5-11.0)
[2016-12-27 07:05] LABS: ALB/GLOB RATIO 0.9 (1.1-1.8); ALKALINE PHOSPHATASE 130 U/L (38-126); ALT/SGPT 29 U/L (7-56); AST/SGOT 23 U/L (14-36); BILIRUBIN,TOTAL 0.8 mg/dL (0.2-1.3); BLOOD UREA NITROGEN 32 mg/dL (7-21); CALCIUM 10.3 mg/dL (8.4-10.5); CARBON DIOXIDE 37 mmol/L (21-33); CHLORIDE 95 mmol/L (95-110); GFR AFRICAN-AMERICAN > 60; GLUCOSE,RANDOM 147 mg/dL (70-110); POTASSIUM 3.3 mmol/L (3.6-5.0); SODIUM 142 mmol/L (132-148); TOTAL PROTEIN 6.6 g/dL (5.8-8.3)
[2016-12-27] MEDS: Insulin Lispro (humaLOG) LOW Coverage SC SCH ×4 (08:04→21:41)
--- NOTE | 2016-12-27 08:55 | CP.PCM.PN ---
<Louie Hodges - Last Filed: 12/27/16 14:23> Subjective - Date & Time of Evaluation Date of Evaluation: 12/27/16 Time of Evaluation: 08:52 - Subjective Subjective: PGY-[address] French's Nephrology service: Pt seen and examined at bedside. Pt c/o persistent pain in bilateral legs, but states "they look less swollen." She reports being out of bed yesterday to chair , and reports improved SOB with exertion. She denies chest pain, palpitations, abdominal pain, N/C/D/C. Objective - Vital Signs/Intake and Output Vital Signs (last 24 hours): Temp Pulse Resp BP Pulse Ox 98.7 F 120 H 18 99/61 L 94 L 12/27/16 06:00 12/27/16 06:00 12/27/16 06:00 12/27/16 06:00 12/27/16 06:00 Intake and Output: 12/27/16 12/27/16 06:59 18:59 Intake Total 523 Output Total 1300 Balance -777 - Medications Medications: Current Medications Apixaban (Eliquis) 5 mg PO BID [facility] PRN Reason: Protocol Last Admin: 12/26/16 17:11 Dose: 5 mg Betamethasone/Clotrimazole (Lotrisone) 1 gm TOP BID [facility] Last Admin: 12/26/16 18:03 Dose: 1 applic Digoxin (Lanoxin) 0.125 mg PO 1400 [facility] Last Admin: 12/26/16 13:51 Dose: 0.125 mg Ferrous Sulfate (Feosol) 324 mg PO DAILY [facility] Last Admin: 12/26/16 09:30 Dose: 324 mg Furosemide (Lasix) 40 mg IVP Q8H [facility] Dobutamine HCl/Dextrose (Dobutamine/Dextrose 5% 500mg/250ml) 500 mg in 250 mls @ 6.545 mls/hr IV .Q24H PRN; Protocol; 2.5 MCG/KG/MIN PRN Reason: TITRATE PER PROTOCOL Last Admin: 12/26/16 21:18 Dose: 6.545 mls/hr Insulin Detemir (Levemir) 20 unit SC HS [facility] Last Admin: 12/26/16 21:15 Dose: 20 unit Insulin Human Lispro (Humalog Low) 0 units SC ACHS [facility] PRN Reason: Protocol Last Admin: 12/27/16 08:04 Dose: Not Given Levothyroxine Sodium (Synthroid) 125 mcg PO DAILY [facility] Last Admin: 12/26/16 09:31 Dose: 125 mcg Losartan Potassium (Cozaar) 12.5 mg PO DAILY [facility] Last Admin: 12/26/16 09:29 Dose: Not Given Magnesium Oxide (Mag-Ox) 400 mg PO BID [facility] Last Admin: 12/26/16 17:11 Dose: 400 mg Metoprolol Tartrate (Lopressor) 12.5 mg PO BID [facility] Last Admin: 12/26/16 17:11 Dose: 12.5 mg Ondansetron HCl (Zofran Inj) 4 mg IVP Q4H PRN PRN Reason: Nausea/Vomiting Pantoprazole Sodium (Protonix Ec Tab) 40 mg PO 0600 [facility] Last Admin: 12/26/16 05:03 Dose: 40 mg Polysaccharide Iron Complex (Ferrex-150) 150 mg PO DAILY [facility] Last Admin: 12/26/16 09:36 Dose: Not Given Quetiapine Fumarate (Seroquel) 100 mg PO HS [facility] PRN Reason: Protocol Last Admin: 12/26/16 21:16 Dose: 100 mg Spironolactone (Aldactone) 50 mg PO BID [facility] Tolvaptan (Samsca) 15 mg PO DAILY [facility] Stop: 12/30/16 10:01 Last Admin: 12/26/16 10:54 Dose: 15 mg Tramadol HCl (Ultram) 50 mg PO Q8 PRN PRN Reason: Pain, moderate (4-7) Last Admin: 12/26/16 13:50 Dose: 50 mg - Labs Labs: 12/27/16 06:06 12/27/16 06:06 PT 11.9 Seconds (9.9-11.8) H 12/13/16 16:30 INR 1.10 (0.93-1.08) H 12/13/16 16:30 APTT 27.1 Seconds (23.7-30.8) 12/13/16 16:30 - Constitutional Appears: Non-toxic, No Acute Distress - Head Exam Head Exam: ATRAUMATIC, NORMOCEPHALIC - Eye Exam Eye Exam: EOMI, Normal appearance. absent: Scleral icterus - ENT Exam ENT Exam: Mucous Membranes Moist - Cardiovascular Exam Cardiovascular Exam: Tachycardia, Irregular Rhythm, +S1, +S2 Additional comments: S3 noted - GI/Abdominal Exam GI & Abdominal Exam: Soft, Normal Bowel Sounds. absent: Distended, Tenderness - Extremities Exam Extremities Exam: Pedal Edema (improving leg edema from admission) Additional comments: skin flaking, redness of extremity (worse on right) remain - Back Exam Back Exam: absent: CVA tenderness (L), CVA tenderness (R) - Neurological Exam Neurological Exam: Alert, Awake - Psychiatric Exam Psychiatric exam: Normal Affect - Skin Skin Exam: Normal Color Assessment and Plan - Assessment and Plan (Free Text) Plan: (1) CHF exacerbation Assessment & Plan: Severely decompensated systolic CHF -improving with inotropic support and diuresis - due to contraction alkalosis will decrease Lasix to 40mg Q8H, and increase aldactone to 50mg BID - question of skilled nursing need for inotropic support remains Status: Acute (2) Pleural effusion Assessment & Plan: Secondary to severe CHF - continue diuretics; Status: Acute (3) Hyponatremia Assessment & Plan: Resolved Much improved after starting inotropic support; constant loop diuretic effect also helping; will hold tolvaptan for now and monitor; Status: Acute (4) Anemia Status: Chronic (5) Hyperglycemia Status: Resolved (6) Prerenal azotemia Assessment & Plan: In the setting of aggressive diuresis for CHF; overall improved with inotropic support; continue same management; Status: Acute <Akash French - Last Filed: 12/28/16 08:29> Objective - Vital Signs/Intake and Output Vital Signs (last 24 hours): Temp Pulse Resp BP Pulse Ox 98.4 F 123 H 20 97/60 L 93 L 12/28/16 05:55 12/28/16 05:55 12/28/16 05:55 12/28/16 06:01 12/28/16 05:55 Intake and Output: 12/28/16 12/28/16 06:59 18:59 Intake Total 445 Output Total 900 Balance -455 - Medications Medications: Current Medications Apixaban (Eliquis) 5 mg PO BID [facility] PRN Reason: Protocol Last Admin: 12/27/16 17:29 Dose: 5 mg Betamethasone/Clotrimazole (Lotrisone) 1 gm TOP BID [facility] Last Admin: 12/27/16 17:31 Dose: 1 applic Digoxin (Lanoxin) 0.125 mg PO 1400 [facility] Last Admin: 12/27/16 13:16 Dose: 0.125 mg Ferrous Sulfate (Feosol) 324 mg PO DAILY [facility] Last Admin: 12/27/16 09:32 Dose: 324 mg Furosemide (Lasix) 40 mg IVP Q8H [facility] Last Admin: 12/28/16 06:01 Dose: Not Given Dobutamine HCl/Dextrose (Dobutamine/Dextrose 5% 500mg/250ml) 500 mg in 250 mls @ 6.545 mls/hr IV .Q24H PRN; Protocol; 2.5 MCG/KG/MIN PRN Reason: TITRATE PER PROTOCOL Last Admin: 12/26/16 21:18 Dose: 6.545 mls/hr Magnesium Sulfate 2 gm/ Sodium (Chloride) 104 mls @ 102 mls/hr IV ONCE ONE Stop: 12/28/16 08:52 Insulin Detemir (Levemir) 20 unit SC [facility] Last Admin: 12/27/16 21:41 Dose: 20 unit Insulin Human Lispro (Humalog Low) 0 units SC [facility] PRN Reason: Protocol Last Admin: 12/27/16 21:41 Dose: 3 units Levothyroxine Sodium (Synthroid) 125 mcg PO DAILY [facility] Last Admin: 12/27/16 09:32 Dose: 125 mcg Losartan Potassium (Cozaar) 12.5 mg PO DAILY [facility] Last Admin: 12/27/16 09:33 Dose: 12.5 mg Magnesium Oxide (Mag-Ox) 800 mg PO BID [facility] Last Admin: 12/27/16 17:29 Dose: 800 mg Metoprolol Tartrate (Lopressor) 12.5 mg PO BID [facility] Last Admin: 12/27/16 17:29 Dose: 12.5 mg Ondansetron HCl (Zofran Inj) 4 mg IVP Q4H PRN PRN Reason: Nausea/Vomiting Pantoprazole Sodium (Protonix Ec Tab) 40 mg PO 0600 [facility] Last Admin: 12/28/16 06:23 Dose: 40 mg Polysaccharide Iron Complex (Ferrex-150) 150 mg PO DAILY [facility] Last Admin: 12/27/16 09:33 Dose: Not Given Potassium Chloride (K-Dur 20 Meq Er Tab) 20 meq PO BID [facility] Last Admin: 12/27/16 17:28 Dose: 20 meq Quetiapine Fumarate (Seroquel) 100 mg PO HS [facility] PRN Reason: Protocol Last Admin: 12/27/16 21:41 Dose: 100 mg Spironolactone (Aldactone) 50 mg PO BID [facility] Last Admin: 12/27/16 17:28 Dose: 50 mg Tolvaptan (Samsca) 15 mg PO DAILY [facility] Stop: 12/30/16 10:01 Last Admin: 12/26/16 10:54 Dose: 15 mg Tramadol HCl (Ultram) 50 mg PO Q8 PRN PRN Reason: Pain, moderate (4-7) Last Admin: 12/27/16 22:20 Dose: 50 mg - Labs Labs: 12/28/16 06:45 12/28/16 06:45 PT 11.9 Seconds (9.9-11.8) H 12/13/16 16:30 INR 1.10 (0.93-1.08) H 12/13/16 16:30 APTT 27.1 Seconds (23.7-30.8) 12/13/16 16:30 Assessment and Plan (1) CHF exacerbation Status: Acute (2) Pleural effusion Status: Acute (3) Hyponatremia Status: Acute (4) Anemia Status: Chronic (5) Hyperglycemia Status: Resolved (6) Prerenal azotemia Status: Acute Attending/Attestation - Attestation I have personally seen and examined this patient.: Yes I have fully participated in the care of the patient.: Yes I have reviewed all pertinent clinical information, including history, physical exam and plan: Yes Notes (Text): Patient seen and examined; I agree with the resident's note as above with the following additions/edits: Patient admitted with severely decompensated systolic CHF w/ MR; currently improving on inotropic support and aggressive diuresis; although shelter prognosis still guarded as patient has repeatedly needed inotropic support; Acute renal failure also improved with inotropic support; Mild hypernatremia, progressive metabolic alkalosis in the setting of frequent loop diuretics; lasix IV 40 mg decreased to q8h, aldactone increased to 50 mg bid; tolvaptan on hold;
[2016-12-27] MEDS: Magnesium Oxide 400 mg Tab UD PO SCH ×2 (09:32→17:29)
[2016-12-27] MEDS: Levothyroxine 125 MCG TAB PO SCH (09:32)
[2016-12-27] MEDS: Iron Complex Polysacch 150mg Cap PO SCH (09:33)
[2016-12-27] MEDS: Clotrimazole/Betamethasone Cream(15 gm) TOP SCH ×2 (09:34→17:31)
--- NOTE | 2016-12-27 10:57 | CP.PCM.PN ---
<Christiano oLpes - Last Filed: 12/27/16 15:45> Subjective - Date & Time of Evaluation Date of Evaluation: 12/27/16 Time of Evaluation: 10:54 - Subjective Subjective: Christiano Lopes DO, PGY-1, Hospitalist Service Pateint seen and examined at bedside. Patient does not recoil in pain when LE are palpated. Patient denies any CP, SOB, N/V/D. Objective - Vital Signs/Intake and Output Vital Signs (last 24 hours): Temp Pulse Resp BP Pulse Ox 98.7 F 133 H 18 121/62 94 L 12/27/16 06:00 12/27/16 09:56 12/27/16 06:00 12/27/16 09:27 12/27/16 06:00 Intake and Output: 12/27/16 12/27/16 06:59 18:59 Intake Total 523 Output Total 1300 Balance -777 - Medications Medications: Current Medications Apixaban (Eliquis) 5 mg PO BID [facility] PRN Reason: Protocol Last Admin: 12/27/16 09:33 Dose: 5 mg Betamethasone/Clotrimazole (Lotrisone) 1 gm TOP BID [facility] Last Admin: 12/27/16 09:34 Dose: 1 applic Digoxin (Lanoxin) 0.125 mg PO 1400 [facility] Last Admin: 12/26/16 13:51 Dose: 0.125 mg Ferrous Sulfate (Feosol) 324 mg PO DAILY [facility] Last Admin: 12/27/16 09:32 Dose: 324 mg Furosemide (Lasix) 40 mg IVP Q8H [facility] Dobutamine HCl/Dextrose (Dobutamine/Dextrose 5% 500mg/250ml) 500 mg in 250 mls @ 6.545 mls/hr IV .Q24H PRN; Protocol; 2.5 MCG/KG/MIN PRN Reason: TITRATE PER PROTOCOL Last Admin: 12/26/16 21:18 Dose: 6.545 mls/hr Insulin Detemir (Levemir) 20 unit SC HS [facility] Last Admin: 12/26/16 21:15 Dose: 20 unit Insulin Human Lispro (Humalog Low) 0 units SC ACHS [facility] PRN Reason: Protocol Last Admin: 12/27/16 08:04 Dose: Not Given Levothyroxine Sodium (Synthroid) 125 mcg PO DAILY [facility] Last Admin: 12/27/16 09:32 Dose: 125 mcg Losartan Potassium (Cozaar) 12.5 mg PO DAILY [facility] Last Admin: 12/27/16 09:33 Dose: 12.5 mg Magnesium Oxide (Mag-Ox) 400 mg PO BID [facility] Last Admin: 12/27/16 09:32 Dose: 400 mg Metoprolol Tartrate (Lopressor) 12.5 mg PO BID [facility] Last Admin: 12/27/16 09:27 Dose: 12.5 mg Ondansetron HCl (Zofran Inj) 4 mg IVP Q4H PRN PRN Reason: Nausea/Vomiting Pantoprazole Sodium (Protonix Ec Tab) 40 mg PO 0600 [facility] Last Admin: 12/26/16 05:03 Dose: 40 mg Polysaccharide Iron Complex (Ferrex-150) 150 mg PO DAILY [facility] Last Admin: 12/27/16 09:33 Dose: Not Given Potassium Chloride (K-Dur 20 Meq Er Tab) 20 meq PO BID [facility] Quetiapine Fumarate (Seroquel) 100 mg PO HS [facility] PRN Reason: Protocol Last Admin: 12/26/16 21:16 Dose: 100 mg Spironolactone (Aldactone) 50 mg PO BID [facility] Last Admin: 12/27/16 09:27 Dose: 50 mg Tolvaptan (Samsca) 15 mg PO DAILY [facility] Stop: 12/30/16 10:01 Last Admin: 12/26/16 10:54 Dose: 15 mg Tramadol HCl (Ultram) 50 mg PO Q8 PRN PRN Reason: Pain, moderate (4-7) Last Admin: 12/26/16 13:50 Dose: 50 mg - Labs Labs: 12/27/16 06:06 12/27/16 06:06 PT 11.9 Seconds (9.9-11.8) H 12/13/16 16:30 INR 1.10 (0.93-1.08) H 12/13/16 16:30 APTT 27.1 Seconds (23.7-30.8) 12/13/16 16:30 - Constitutional Appears: Non-toxic, No Acute Distress - Head Exam Head Exam: ATRAUMATIC, NORMOCEPHALIC - Eye Exam Eye Exam: EOMI, Normal appearance, PERRL - ENT Exam ENT Exam: Mucous Membranes Moist, Normal Oropharynx - Neck Exam Neck Exam: Normal Inspection. absent: Lymphadenopathy, Meningismus - Respiratory Exam Respiratory Exam: Clear to Ausculation Bilateral, NORMAL BREATHING PATTERN. absent: Rales - Cardiovascular Exam Cardiovascular Exam: Tachycardia, +S1, +S2 - GI/Abdominal Exam GI & Abdominal Exam: Soft, Normal Bowel Sounds. absent: Pulsatile Mass, Rebound - Extremities Exam Additional comments: 2/4 pitting edema - Back Exam Back Exam: NORMAL INSPECTION. absent: CVA tenderness (L), CVA tenderness (R) - Neurological Exam Neurological Exam: Alert, Awake, CN II-XII Intact, Oriented x3 Neuro motor strength exam: Left Upper Extremity: 5, Right Upper Extremity: 5, Left Lower Extremity: 5, Right Lower Extremity: 5 - Psychiatric Exam Psychiatric exam: Normal Affect, Normal Mood - Skin Skin Exam: Dry, Intact, Normal Color, Warm Assessment and Plan - Assessment and Plan (Free Text) Assessment: 51 y/o F with PMH of DM2, CHF with EF of 30%, HTN, non-ischemic cardiomyopathy , chronic pleural effusion, DVT, Recurrent PE on Eliquis, hypothyroidism, and schizophrenia was admitted with acute on chronic systolic heart failure exacerbation with LE edema and superimposed lower extremity cellulitis. Patient has completed 7 days of IV Cefazolin and has no fever or leukocytosis. Patient' s LE edema/pain has much improved since the addition of Dobutamine. Patient is OOB to chair with LE elevated. Plan: .1) LE Edema likely secondary to decompensated HF and chroic LE edema - IV Furosemide - Dobutamine drip 2.5 mcg/kg/min - Spirinolactone - Losaratan - Leg elevation to heart level for at least 30 minutes, four times daily - Continue to monitor BUN/Creatinine, and electrolyte 1b) Electrolyte distubance - K 3.3, Mg 1.6, will replete and continue to monitor via CMP and Mg level - Tramadol 50 mg q8h PRN for severe pain 2. Diabetes Mellitus - Levemir 20 U HS - ISS low-dose Lispro 3. Atrial Fibrillation - Eliquis 5 mg BID - Metropolol 12.5 BID - Digoxin 4) Hyponatremia, resolved - Na 142 - Tolvaptan 15 mg daily (held), will follow with Nephrology recommendations 5. Hypothyroidism - Synthroid 125 mcg daily 6) Schizophrenia and labile mood - Seroquel 100 mg HS 7) GI prophylaxis: Protonix 40 mg PO daily Case discussed with Cardiology and Nephrology. <MirianMukeshkaidiana - Last Filed: 12/27/16 18:30> Objective - Vital Signs/Intake and Output Vital Signs (last 24 hours): Temp Pulse Resp BP Pulse Ox 98.4 F 134 H 20 100/60 94 L 12/27/16 12:00 12/27/16 18:00 12/27/16 12:00 12/27/16 14:46 12/27/16 06:00 Intake and Output: 12/27/16 12/27/16 06:59 18:59 Intake Total 523 Output Total 1300 Balance -777 - Medications Medications: Current Medications Apixaban (Eliquis) 5 mg PO BID [facility] PRN Reason: Protocol Last Admin: 12/27/16 17:29 Dose: 5 mg Betamethasone/Clotrimazole (Lotrisone) 1 gm TOP BID [facility] Last Admin: 12/27/16 17:31 Dose: 1 applic Digoxin (Lanoxin) 0.125 mg PO 1400 [facility] Last Admin: 12/27/16 13:16 Dose: 0.125 mg Ferrous Sulfate (Feosol) 324 mg PO DAILY [facility] Last Admin: 12/27/16 09:32 Dose: 324 mg Furosemide (Lasix) 40 mg IVP Q8H [facility] Last Admin: 12/27/16 14:46 Dose: 40 mg Dobutamine HCl/Dextrose (Dobutamine/Dextrose 5% 500mg/250ml) 500 mg in 250 mls @ 6.545 mls/hr IV .Q24H PRN; Protocol; 2.5 MCG/KG/MIN PRN Reason: TITRATE PER PROTOCOL Last Admin: 12/26/16 21:18 Dose: 6.545 mls/hr Insulin Detemir (Levemir) 20 unit SC HS [facility] Last Admin: 12/26/16 21:15 Dose: 20 unit Insulin Human Lispro (Humalog Low) 0 units SC ACHS [facility] PRN Reason: Protocol Last Admin: 12/27/16 17:31 Dose: 2 units Levothyroxine Sodium (Synthroid) 125 mcg PO DAILY [facility] Last Admin: 12/27/16 09:32 Dose: 125 mcg Losartan Potassium (Cozaar) 12.5 mg PO DAILY [facility] Last Admin: 12/27/16 09:33 Dose: 12.5 mg Magnesium Oxide (Mag-Ox) 800 mg PO BID [facility] Last Admin: 12/27/16 17:29 Dose: 800 mg Metoprolol Tartrate (Lopressor) 12.5 mg PO BID [facility] Last Admin: 12/27/16 17:29 Dose: 12.5 mg Ondansetron HCl (Zofran Inj) 4 mg IVP Q4H PRN PRN Reason: Nausea/Vomiting Pantoprazole Sodium (Protonix Ec Tab) 40 mg PO 0600 [facility] Last Admin: 12/26/16 05:03 Dose: 40 mg Polysaccharide Iron Complex (Ferrex-150) 150 mg PO DAILY [facility] Last Admin: 12/27/16 09:33 Dose: Not Given Potassium Chloride (K-Dur 20 Meq Er Tab) 20 meq PO BID [facility] Last Admin: 12/27/16 17:28 Dose: 20 meq Quetiapine Fumarate (Seroquel) 100 mg PO HS [facility] PRN Reason: Protocol Last Admin: 12/26/16 21:16 Dose: 100 mg Spironolactone (Aldactone) 50 mg PO BID [facility] Last Admin: 12/27/16 17:28 Dose: 50 mg Tolvaptan (Samsca) 15 mg PO DAILY [facility] Stop: 12/30/16 10:01 Last Admin: 12/26/16 10:54 Dose: 15 mg Tramadol HCl (Ultram) 50 mg PO Q8 PRN PRN Reason: Pain, moderate (4-7) Last Admin: 12/26/16 13:50 Dose: 50 mg - Labs Labs: 12/27/16 06:06 12/27/16 06:06 PT 11.9 Seconds (9.9-11.8) H 12/13/16 16:30 INR 1.10 (0.93-1.08) H 12/13/16 16:30 APTT 27.1 Seconds (23.7-30.8) 12/13/16 16:30 Attending/Attestation - Attestation I have personally seen and examined this patient.: Yes I have fully participated in the care of the patient.: Yes I have reviewed all pertinent clinical information, including history, physical exam and plan: Yes Notes (Text): 12/27/16 18:26 Attending note; patient seen and examined with resident. Patient is a 51 year old female with history of DM-2, CHF (EF~30%), HTN, NICMP, chronic pleural effusion, 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 Leg edema has improved. Noncooperative with physical examination. Continue IV lasix to 40 q8 and Aldactone.. Patient is also on dobutamine. case discussed with cardiology in detail. Continue levemir for DM-2. Continue lopressor and eliquis for afib. Continue synthroid and seroquel. Upon discharge patient will go back to shelter. pier worker evaluation is appreciated.
[2016-12-27] MEDS: Digoxin 125 mcg (0.125 mg) Tab PO SCH (13:16)
--- NOTE | 2016-12-27 14:47 | PN ---
DATE: SUBJECTIVE: The patient's shortness of breath is improved as well as leg swelling. PHYSICAL EXAMINATION: VITAL SIGNS: Blood pressure 121/62, heart rate 130, temperature 98.7, and respirations 18. HEENT: Facial edema. NECK: No JVD. CHEST: Absent breath sounds at the bases. HEART: S1 and S2 regular. EXTREMITIES: 2+ pitting edema. LABORATORY DATA: Hemoglobin and hematocrit 11.9 and 36.8 and white count and platelet count are within normal limit. Today's potassium is 3.3, glucose 147, BUN and creatinine are 32 and 0.7 respectively. ASSESSMENT: 1. Congestive heart failure. 2. Hypokalemia. 3. Bilateral leg cellulitis. 4. Mild prerenal azotemia. 5. Right subclavian deep venous thrombosis. RECOMMENDATIONS: Continue Aldactone at 50 mg twice a day, Cozaar 12.5 mg once a day, Dobutrex 2.5 mcg/kg per minute, Eliquis 5 mg twice a day, 22 mg orally daily, K-Dur 20 mEq twice a day, digoxin 0.125 mg orally daily, Lopressor 12.5 mg twice a day, magnesium oxide 400 mg twice a day, and yesterday's digoxin level is 0.5. Case was discussed with the medical team. The patient is not a suitable candidate for long-term ionotropic infusion. Cesar Kinney MD
[2016-12-27] MEDS: Potassium Chloride 20 mEq ER Tab PO SCH (17:28)
[2016-12-27] MEDS: Insulin Detemir 100 units/ml Vial (Levemir) SC SCH (21:41)
[2016-12-28] MEDS: Pantoprazole 40 mg EC Tab PO SCH (06:23)
[2016-12-28 07:04] LABS: HEMATOCRIT 38.4 % (36.0-48.0); MEAN CELL VOLUME 88.1 fl (80.0-105.0); MEAN CORPUSCULAR HGB CONC 31.8 g/dl (31.0-37.0); MEAN PLATELET VOLUME 9.5 fl (7.0-11.0); RED CELL DISTRIBUTION WIDTH 18.9 % (11.5-14.5); WHITE BLOOD COUNT 10.3 10^3/ul (4.5-11.0)
[2016-12-28 07:24] LABS: ALB/GLOB RATIO 1.1 (1.1-1.8); ALKALINE PHOSPHATASE 151 U/L (38-126); ALT/SGPT 32 U/L (7-56); AST/SGOT 29 U/L (14-36); BILIRUBIN,TOTAL 0.7 mg/dL (0.2-1.3); BLOOD UREA NITROGEN 29 mg/dL (7-21); CALCIUM 9.9 mg/dL (8.4-10.5); CARBON DIOXIDE 36 mmol/L (21-33); CHLORIDE 97 mmol/L (98-107); GFR AFRICAN-AMERICAN > 60; GLUCOSE,RANDOM 177 mg/dL (70-110); MAGNESIUM 1.6 mg/dL (1.7-2.2); POTASSIUM 3.4 mmol/L (3.6-5.0); SODIUM 144 mmol/L (132-148); TOTAL PROTEIN 6.6 g/dL (5.8-8.3)
[2016-12-28] MEDS ORDERED: Potassium Chloride 20 mEq ER Tab PO ONE ×2 (07:51→12:20)
[2016-12-28] MEDS ORDERED: Magnesium Sulfate 2 GM in Sodium Chloride 0.9% 100 ML IV ONE (07:51)
[2016-12-28] MEDS: Insulin Lispro (humaLOG) LOW Coverage SC SCH ×4 (08:17→21:59)
--- NOTE | 2016-12-28 10:43 | CP.PCM.PN ---
<Christiano Lopes - Last Filed: 12/28/16 14:10> Subjective - Date & Time of Evaluation Date of Evaluation: 12/28/16 Time of Evaluation: 07:50 - Subjective Subjective: Christiano Lopes DO, PGY-1, Hospitalist Service Patient seen and examined at bedside. Patient reports less pain and swelling in her lower extremities. Nurse reports no events overnight. Objective - Vital Signs/Intake and Output Vital Signs (last 24 hours): Temp Pulse Resp BP Pulse Ox 98.4 F 123 H 20 97/60 L 93 L 12/28/16 05:55 12/28/16 05:55 12/28/16 05:55 12/28/16 06:01 12/28/16 05:55 Intake and Output: 12/28/16 12/28/16 06:59 18:59 Intake Total 445 Output Total 900 Balance -455 - Medications Medications: Current Medications Apixaban (Eliquis) 5 mg PO BID [facility] PRN Reason: Protocol Last Admin: 12/27/16 17:29 Dose: 5 mg Betamethasone/Clotrimazole (Lotrisone) 1 gm TOP BID [facility] Last Admin: 12/27/16 17:31 Dose: 1 applic Digoxin (Lanoxin) 0.125 mg PO 1400 [facility] Last Admin: 12/27/16 13:16 Dose: 0.125 mg Ferrous Sulfate (Feosol) 324 mg PO DAILY [facility] Last Admin: 12/27/16 09:32 Dose: 324 mg Furosemide (Lasix) 40 mg IVP Q8H [facility] Last Admin: 12/28/16 06:01 Dose: Not Given Dobutamine HCl/Dextrose (Dobutamine/Dextrose 5% 500mg/250ml) 500 mg in 250 mls @ 6.545 mls/hr IV .Q24H PRN; Protocol; 2.5 MCG/KG/MIN PRN Reason: TITRATE PER PROTOCOL Last Admin: 12/26/16 21:18 Dose: 6.545 mls/hr Insulin Detemir (Levemir) 20 unit SC [facility] Last Admin: 12/27/16 21:41 Dose: 20 unit Insulin Human Lispro (Humalog Low) 0 units SC ACHS [facility] PRN Reason: Protocol Last Admin: 12/28/16 08:17 Dose: 1 units Levothyroxine Sodium (Synthroid) 125 mcg PO DAILY [facility] Last Admin: 12/27/16 09:32 Dose: 125 mcg Losartan Potassium (Cozaar) 12.5 mg PO DAILY [facility] Last Admin: 12/27/16 09:33 Dose: 12.5 mg Magnesium Oxide (Mag-Ox) 800 mg PO BID [facility] Last Admin: 12/27/16 17:29 Dose: 800 mg Metoprolol Tartrate (Lopressor) 12.5 mg PO BID [facility] Last Admin: 12/27/16 17:29 Dose: 12.5 mg Ondansetron HCl (Zofran Inj) 4 mg IVP Q4H PRN PRN Reason: Nausea/Vomiting Pantoprazole Sodium (Protonix Ec Tab) 40 mg PO 0600 [facility] Last Admin: 12/28/16 06:23 Dose: 40 mg Polysaccharide Iron Complex (Ferrex-150) 150 mg PO DAILY [facility] Last Admin: 12/27/16 09:33 Dose: Not Given Potassium Chloride (K-Dur 20 Meq Er Tab) 20 meq PO BID [facility] Last Admin: 12/27/16 17:28 Dose: 20 meq Quetiapine Fumarate (Seroquel) 100 mg PO [facility] PRN Reason: Protocol Last Admin: 12/27/16 21:41 Dose: 100 mg Spironolactone (Aldactone) 50 mg PO BID [facility] Last Admin: 12/27/16 17:28 Dose: 50 mg Tolvaptan (Samsca) 15 mg PO DAILY [facility] Stop: 12/30/16 10:01 Last Admin: 12/26/16 10:54 Dose: 15 mg Tramadol HCl (Ultram) 50 mg PO Q8 PRN PRN Reason: Pain, moderate (4-7) Last Admin: 12/27/16 22:20 Dose: 50 mg - Labs Labs: 12/28/16 06:45 12/28/16 06:45 PT 11.9 Seconds (9.9-11.8) H 12/13/16 16:30 INR 1.10 (0.93-1.08) H 12/13/16 16:30 APTT 27.1 Seconds (23.7-30.8) 12/13/16 16:30 - Constitutional Appears: Well, No Acute Distress - Head Exam Head Exam: ATRAUMATIC, NORMOCEPHALIC - Eye Exam Eye Exam: EOMI, Normal appearance, PERRL - ENT Exam ENT Exam: Mucous Membranes Moist, Normal Oropharynx - Neck Exam Neck Exam: Normal Inspection. absent: Thyromegaly - Respiratory Exam Respiratory Exam: Clear to Ausculation Bilateral, NORMAL BREATHING PATTERN - Cardiovascular Exam Cardiovascular Exam: RRR, +S1, +S2 - GI/Abdominal Exam GI & Abdominal Exam: Soft, Normal Bowel Sounds. absent: Organomegaly, Rebound - Extremities Exam Additional comments: 1/4 edema, less red - Back Exam Back Exam: NORMAL INSPECTION - Neurological Exam Neurological Exam: Alert, Awake, CN II-XII Intact, Oriented x3 - Psychiatric Exam Psychiatric exam: Normal Affect, Normal Mood - Skin Skin Exam: Dry, Intact, Normal Color, Warm Assessment and Plan - Assessment and Plan (Free Text) Assessment: 51 y/o F with PMH of DM2, CHF with EF of 30%, HTN, non-ischemic cardiomyopathy , chronic pleural effusion, DVT, Recurrent PE on Eliquis, hypothyroidism, and schizophrenia was admitted with acute on chronic systolic heart failure exacerbation with LE edema and superimposed lower extremity cellulitis. Patient has completed 7 days of IV Cefazolin and has no fever or leukocytosis. Patient' s LE edema/pain has much improved since the addition of Dobutamine. Patient is OOB to chair with LE elevated. Patient is amenable to physical therapy. Plan: 1) LE Edema likely secondary to decompensated HF and chronic LE edema - IV Furosemide - Dobutamine drip 2.5 mcg/kg/min - Spirinolactone - [place] - Leg elevation to heart level for at least 30 minutes, four times daily - Continue to monitor BUN/Creatinine, and electrolyte 1b) Electrolyte distubance - K 3.3, Mg 1.6, will replete and continue to monitor via CMP and Mg level - Tramadol 50 mg q8h PRN for severe pain 2. Diabetes Mellitus - Levemir 20 U HS - ISS low-dose Lispro 3. Atrial Fibrillation - Eliquis 5 mg BID - Metropolol 12.5 BID - Digoxin 4) Hyponatremia, resolved - Na 144 - Tolvaptan 15 mg daily (held), will follow with Nephrology recommendations 5. Hypothyroidism - Synthroid 125 mcg daily 6) Schizophrenia and labile mood - Seroquel 100 mg HS - Mood has improved with improvement of LE swelling 7) GI prophylaxis: Protonix 40 mg PO daily Case discussed with Cardiology and Nephrology. <Will Vela - Last Filed: 12/28/16 16:57> Objective - Vital Signs/Intake and Output Vital Signs (last 24 hours): Temp Pulse Resp BP Pulse Ox 97 F L 141 H 18 91/62 L 93 L 12/28/16 12:00 12/28/16 15:23 12/28/16 12:00 12/28/16 15:23 12/28/16 05:55 Intake and Output: 12/28/16 12/28/16 06:59 18:59 Intake Total 445 520 Output Total 900 400 Balance -455 120 - Medications Medications: Current Medications Apixaban (Eliquis) 5 mg PO BID [facility] PRN Reason: Protocol Last Admin: 12/28/16 11:27 Dose: 5 mg Betamethasone/Clotrimazole (Lotrisone) 1 gm TOP BID [facility] Last Admin: 12/28/16 11:31 Dose: 1 applic Digoxin (Lanoxin) 0.125 mg PO 1400 [facility] Last Admin: 12/28/16 13:44 Dose: 0.125 mg Ferrous Sulfate (Feosol) 324 mg PO DAILY [facility] Last Admin: 12/28/16 11:27 Dose: 324 mg Furosemide (Lasix) 40 mg IVP Q8H [facility] Last Admin: 12/28/16 11:31 Dose: 40 mg Dobutamine HCl/Dextrose (Dobutamine/Dextrose 5% 500mg/250ml) 500 mg in 250 mls @ 6.545 mls/hr IV .Q24H PRN; Protocol; 2.5 MCG/KG/MIN PRN Reason: TITRATE PER PROTOCOL Last Admin: 12/28/16 15:23 Dose: 6.545 mls/hr Insulin Detemir (Levemir) 20 unit SC HS [facility] Last Admin: 12/27/16 21:41 Dose: 20 unit Insulin Human Lispro (Humalog Low) 0 units SC ACHS [facility] PRN Reason: Protocol Last Admin: 12/28/16 12:22 Dose: 4 units Levothyroxine Sodium (Synthroid) 125 mcg PO DAILY [facility] Last Admin: 12/28/16 11:28 Dose: 125 mcg Losartan Potassium (Cozaar) 12.5 mg PO DAILY [facility] Last Admin: 12/28/16 11:29 Dose: 12.5 mg Magnesium Oxide (Mag-Ox) 800 mg PO BID [facility] Last Admin: 12/28/16 11:28 Dose: 800 mg Metoprolol Tartrate (Lopressor) 12.5 mg PO BID [facility] Last Admin: 12/28/16 11:30 Dose: 12.5 mg Ondansetron HCl (Zofran Inj) 4 mg IVP Q4H PRN PRN Reason: Nausea/Vomiting Pantoprazole Sodium (Protonix Ec Tab) 40 mg PO 0600 [facility] Last Admin: 12/28/16 06:23 Dose: 40 mg Polysaccharide Iron Complex (Ferrex-150) 150 mg PO DAILY [facility] Last Admin: 12/28/16 11:27 Dose: 150 mg Potassium Chloride (K-Dur 20 Meq Er Tab) 20 meq PO BID [facility] Last Admin: 12/28/16 11:28 Dose: 20 meq Quetiapine Fumarate (Seroquel) 100 mg PO HS [facility] PRN Reason: Protocol Last Admin: 12/27/16 21:41 Dose: 100 mg Risperidone (Risperdal Tab) 0.5 mg PO DAILY [facility] PRN Reason: Protocol Spironolactone (Aldactone) 50 mg PO BID [facility] Last Admin: 12/28/16 11:29 Dose: 50 mg Tolvaptan (Samsca) 15 mg PO DAILY [facility] Stop: 12/30/16 10:01 Last Admin: 12/26/16 10:54 Dose: 15 mg Tramadol HCl (Ultram) 50 mg PO Q8 PRN PRN Reason: Pain, moderate (4-7) Last Admin: 12/27/16 22:20 Dose: 50 mg - Labs Labs: 12/28/16 06:45 12/28/16 06:45 PT 11.9 Seconds (9.9-11.8) H 12/13/16 16:30 INR 1.10 (0.93-1.08) H 12/13/16 16:30 APTT 27.1 Seconds (23.7-30.8) 12/13/16 16:30 Attending/Attestation - Attestation I have personally seen and examined this patient.: Yes I have fully participated in the care of the patient.: Yes I have reviewed all pertinent clinical information, including history, physical exam and plan: Yes Notes (Text): 12/28/16 16:54 Attending note; patient seen and examined with resident. Patient is a 51 year old female with history of DM-2, CHF (EF~30%), HTN, NICMP, chronic pleural effusion, 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 Leg edema has improved. Continue IV lasix to 40 q8 and Aldactone.. Patient is also on dobutamine. Continue levemir for DM-2. Continue lopressor and eliquis for afib. continue potassium and magnesium supplementation. patient is refusing to go back to jail. we'll follow up with physical therapy. room worker evaluation is appreciated. the patient will follow up with PMD Dr. valdez upon discharge. 12/28/16 16:57
[2016-12-28] MEDS: Iron Complex Polysacch 150mg Cap PO SCH (11:27)
[2016-12-28] MEDS: Magnesium Oxide 400 mg Tab UD PO SCH ×2 (11:28→17:41)
[2016-12-28] MEDS: Potassium Chloride 20 mEq ER Tab PO SCH ×2 (11:28→17:41)
[2016-12-28] MEDS: Levothyroxine 125 MCG TAB PO SCH (11:28)
[2016-12-28] MEDS: Clotrimazole/Betamethasone Cream(15 gm) TOP SCH ×2 (11:31→17:49)
[2016-12-28] MEDS ORDERED: Potassium Chloride 40 mEq/30 ml LIQ UD PO ONE (12:18)
[2016-12-28] MEDS: Digoxin 125 mcg (0.125 mg) Tab PO SCH (13:44)
[2016-12-28] MEDS: DOBUTamine 500mg/250ml D5W 500 MG/250 ML BAG IV PRN (15:23)
--- NOTE | 2016-12-28 20:46 | PN ---
SUBJECTIVE: The patient is in bed more today. She would not allow me to take a look at her lower extremities and she refused to allow me to examine her. PHYSICAL EXAMINATION VITAL SIGNS: Blood pressure 118/54, heart rate 80, temperature 97. HEENT: Facial edema. EXTREMITIES: Lower extremities, 2+ pitting edema with cellulitic changes. LABORATORY DATA: Today's potassium is 3.4, BUN and creatinine are 29 and 0.7, glucose 177. Magnesium is 1.6. Today's hemoglobin, hematocrit, white count and platelet count are within normal limit. ASSESSMENT: 1. Dilated cardiomyopathy. 2. Hypokalemia and hypomagnesemia. 3. Right subclavian deep venous thrombosis. RECOMMENDATIONS: Continue Aldactone 50 mg twice a day, Cozaar 12.5 mg once a day, Dobutrex infusion 2.5 mcg/kg per minute, Eliquis 5 mg twice a day, digoxin 0.125 mg orally daily and K-Dur 20 mEq twice daily. Continue mg twice a day. The patient did receive an additional dose of 40 mEq of potassium today orally. Cesar Kinney MD
[2016-12-28] MEDS: Insulin Detemir 100 units/ml Vial (Levemir) SC SCH (21:59)
--- NOTE | 2016-12-28 23:01 | CARD ---
APPROVED REPORT EKG Measurement Heart [id number] <Conclusion> Sinus tachycardia with premature atrial complexes Nonspecific intraventricular block Possible Anterolateral infarct, age undetermined Abnormal ECG
--- NOTE | 2016-12-29 06:09 | CP.PCM.PN ---
Subjective - Date & Time of Evaluation Date of Evaluation: 12/28/16 Time of Evaluation: 11:00 - Subjective Subjective: Patient reports leg swelling improved; Objective - Vital Signs/Intake and Output Vital Signs (last 24 hours): Temp Pulse Resp BP Pulse Ox 98.1 F 122 H 20 98/51 L 94 L 12/29/16 00:01 12/29/16 02:00 12/29/16 00:01 12/29/16 00:01 12/29/16 00:01 Intake and Output: 12/28/16 12/29/16 18:59 06:59 Intake Total 520 Output Total 400 Balance 120 - Medications Medications: Current Medications Apixaban (Eliquis) 5 mg PO BID [facility] PRN Reason: Protocol Last Admin: 12/28/16 17:41 Dose: 5 mg Betamethasone/Clotrimazole (Lotrisone) 1 gm TOP BID [facility] Last Admin: 12/28/16 17:49 Dose: 1 applic Digoxin (Lanoxin) 0.125 mg PO 1400 [facility] Last Admin: 12/28/16 13:44 Dose: 0.125 mg Ferrous Sulfate (Feosol) 324 mg PO DAILY [facility] Last Admin: 12/28/16 11:27 Dose: 324 mg Furosemide (Lasix) 40 mg IVP Q8H [facility] Last Admin: 12/28/16 19:57 Dose: 40 mg Dobutamine HCl/Dextrose (Dobutamine/Dextrose 5% 500mg/250ml) 500 mg in 250 mls @ 6.545 mls/hr IV .Q24H PRN; Protocol; 2.5 MCG/KG/MIN PRN Reason: TITRATE PER PROTOCOL Last Admin: 12/28/16 15:23 Dose: 6.545 mls/hr Insulin Detemir (Levemir) 20 unit SC HS [facility] Last Admin: 12/28/16 21:59 Dose: 20 unit Insulin Human Lispro (Humalog Low) 0 units SC ACHS [facility] PRN Reason: Protocol Last Admin: 12/28/16 21:59 Dose: 3 units Levothyroxine Sodium (Synthroid) 125 mcg PO DAILY [facility] Last Admin: 12/28/16 11:28 Dose: 125 mcg Losartan Potassium (Cozaar) 12.5 mg PO DAILY [facility] Last Admin: 12/28/16 11:29 Dose: 12.5 mg Magnesium Oxide (Mag-Ox) 800 mg PO BID [facility] Last Admin: 12/28/16 17:41 Dose: 800 mg Metoprolol Tartrate (Lopressor) 12.5 mg PO BID [facility] Last Admin: 12/28/16 17:40 Dose: 12.5 mg Ondansetron HCl (Zofran Inj) 4 mg IVP Q4H PRN PRN Reason: Nausea/Vomiting Pantoprazole Sodium (Protonix Ec Tab) 40 mg PO 0600 [facility] Last Admin: 12/28/16 06:23 Dose: 40 mg Polysaccharide Iron Complex (Ferrex-150) 150 mg PO DAILY [facility] Last Admin: 12/28/16 11:27 Dose: 150 mg Potassium Chloride (K-Dur 20 Meq Er Tab) 20 meq PO BID [facility] Last Admin: 12/28/16 17:41 Dose: 20 meq Quetiapine Fumarate (Seroquel) 100 mg PO HS [facility] PRN Reason: Protocol Last Admin: 12/28/16 22:00 Dose: 100 mg Risperidone (Risperdal Tab) 0.5 mg PO DAILY [facility] PRN Reason: Protocol Last Admin: 12/28/16 17:41 Dose: 0.5 mg Spironolactone (Aldactone) 50 mg PO BID [facility] Last Admin: 12/28/16 17:42 Dose: 50 mg Tolvaptan (Samsca) 15 mg PO DAILY [facility] Stop: 12/30/16 10:01 Last Admin: 12/26/16 10:54 Dose: 15 mg Tramadol HCl (Ultram) 50 mg PO Q8 PRN PRN Reason: Pain, moderate (4-7) Last Admin: 12/27/16 22:20 Dose: 50 mg - Labs Labs: 12/28/16 06:45 12/28/16 06:45 PT 11.9 Seconds (9.9-11.8) H 12/13/16 16:30 INR 1.10 (0.93-1.08) H 12/13/16 16:30 APTT 27.1 Seconds (23.7-30.8) 12/13/16 16:30 - Constitutional Appears: Non-toxic, No Acute Distress - Head Exam Head Exam: NORMAL INSPECTION - Eye Exam Eye Exam: Normal appearance - ENT Exam ENT Exam: Mucous Membranes Moist - Respiratory Exam Respiratory Exam: Clear to Ausculation Bilateral. absent: Respiratory Distress - Cardiovascular Exam Cardiovascular Exam: Irregular Rhythm, +S1, +S2. absent: Rubs - GI/Abdominal Exam GI & Abdominal Exam: Soft, Tenderness - Extremities Exam Additional comments: marked bilateral leg edema; - Neurological Exam Neurological Exam: Alert, Awake - Skin Skin Exam: Warm. absent: Cyanosis Assessment and Plan (1) CHF exacerbation Assessment & Plan: Acute severely decompensated systolic CHF, much improved with inotropic support and aggressive diuresis; continue same; Status: Acute (2) Pleural effusion Assessment & Plan: Clinically improving on exam; continue diuresis; Status: Acute (3) Hyponatremia Assessment & Plan: Resolved with inotropic support; continue to hold tolvaptan; Status: Acute (4) Anemia Status: Chronic (5) Hyperglycemia Status: Resolved (6) Prerenal azotemia Assessment & Plan: Improved with inotropic support and diuretics; continue; Status: Acute
[2016-12-29] MEDS: Pantoprazole 40 mg EC Tab PO SCH (06:22)
[2016-12-29] MEDS: Insulin Lispro (humaLOG) LOW Coverage SC SCH ×4 (07:59→22:30)
[2016-12-29 08:23] LABS: HEMATOCRIT 36.2 % (36.0-48.0); MEAN CELL VOLUME 86.8 fl (80.0-105.0); MEAN CORPUSCULAR HEMOGLOBIN 28.5 pg (25.0-35.0); MEAN CORPUSCULAR HGB CONC 32.9 g/dl (31.0-37.0); MEAN PLATELET VOLUME 9.3 fl (7.0-11.0); RED CELL DISTRIBUTION WIDTH 18.5 % (11.5-14.5); WHITE BLOOD COUNT 11.2 10^3/ul (4.5-11.0)
[2016-12-29 08:33] LABS: ALKALINE PHOSPHATASE 197 U/L (38-126); ALT/SGPT 48 U/L (7-56); AST/SGOT 42 U/L (14-36); BILIRUBIN,TOTAL 0.7 mg/dL (0.2-1.3); BLOOD UREA NITROGEN 29 mg/dL (7-21); CALCIUM 9.5 mg/dL (8.4-10.5); CARBON DIOXIDE 37 mmol/L (21-33); CHLORIDE 93 mmol/L (98-107); GFR AFRICAN-AMERICAN > 60; GLUCOSE,RANDOM 150 mg/dL (70-110); MAGNESIUM 1.9 mg/dL (1.7-2.2); POTASSIUM 4.1 mmol/L (3.6-5.0); SODIUM 140 mmol/L (132-148); TOTAL PROTEIN 6.7 g/dL (5.8-8.3)
--- NOTE | 2016-12-29 09:03 | CP.PCM.PN ---
<Christiano Lopes - Last Filed: 12/29/16 12:51> Subjective - Date & Time of Evaluation Date of Evaluation: 12/29/16 Time of Evaluation: 09:00 - Subjective Subjective: Christiano Lopes DO, PGY-1, Hospitalist Service Patient seen and examined at bedside. Patient reports trouble sleeping and problems with roommate. Denies chest pain or shortness of breath. Nurse reports no events overnight. Objective - Vital Signs/Intake and Output Vital Signs (last 24 hours): Temp Pulse Resp BP Pulse Ox 98.0 F 119 H 20 107/57 L 92 L 12/29/16 06:00 12/29/16 06:00 12/29/16 06:00 12/29/16 06:00 12/29/16 06:00 Intake and Output: 12/29/16 12/29/16 06:59 18:59 Intake Total 100 Output Total 0 Balance 100 - Medications Medications: Current Medications Apixaban (Eliquis) 5 mg PO BID [facility] PRN Reason: Protocol Last Admin: 12/28/16 17:41 Dose: 5 mg Betamethasone/Clotrimazole (Lotrisone) 1 gm TOP BID [facility] Last Admin: 12/28/16 17:49 Dose: 1 applic Clonazepam (Klonopin) 0.5 mg PO BID [facility] PRN Reason: Protocol Digoxin (Lanoxin) 0.125 mg PO 1400 [facility] Last Admin: 12/28/16 13:44 Dose: 0.125 mg Ferrous Sulfate (Feosol) 324 mg PO DAILY [facility] Last Admin: 12/28/16 11:27 Dose: 324 mg Furosemide (Lasix) 40 mg IVP Q8H [facility] Last Admin: 12/29/16 03:30 Dose: 40 mg Dobutamine HCl/Dextrose (Dobutamine/Dextrose 5% 500mg/250ml) 500 mg in 250 mls @ 6.545 mls/hr IV .Q24H PRN; Protocol; 2.5 MCG/KG/MIN PRN Reason: TITRATE PER PROTOCOL Last Admin: 12/28/16 15:23 Dose: 6.545 mls/hr Insulin Detemir (Levemir) 20 unit SC HS [facility] Last Admin: 12/28/16 21:59 Dose: 20 unit Insulin Human Lispro (Humalog Low) 0 units SC ACHS [facility] PRN Reason: Protocol Last Admin: 12/29/16 07:59 Dose: 1 units Levothyroxine Sodium (Synthroid) 125 mcg PO DAILY [facility] Last Admin: 12/28/16 11:28 Dose: 125 mcg Losartan Potassium (Cozaar) 12.5 mg PO DAILY [facility] Last Admin: 12/28/16 11:29 Dose: 12.5 mg Magnesium Oxide (Mag-Ox) 800 mg PO BID [facility] Last Admin: 12/28/16 17:41 Dose: 800 mg Metoprolol Tartrate (Lopressor) 12.5 mg PO BID [facility] Last Admin: 12/28/16 17:40 Dose: 12.5 mg Ondansetron HCl (Zofran Inj) 4 mg IVP Q4H PRN PRN Reason: Nausea/Vomiting Pantoprazole Sodium (Protonix Ec Tab) 40 mg PO 0600 [facility] Last Admin: 12/29/16 06:22 Dose: 40 mg Polysaccharide Iron Complex (Ferrex-150) 150 mg PO DAILY [facility] Last Admin: 12/28/16 11:27 Dose: 150 mg Potassium Chloride (K-Dur 20 Meq Er Tab) 20 meq PO BID [facility] Last Admin: 12/28/16 17:41 Dose: 20 meq Quetiapine Fumarate (Seroquel) 100 mg PO HS [facility] PRN Reason: Protocol Last Admin: 12/28/16 22:00 Dose: 100 mg Risperidone (Risperdal Tab) 0.5 mg PO DAILY [facility] PRN Reason: Protocol Spironolactone (Aldactone) 50 mg PO BID [facility] Last Admin: 12/28/16 17:42 Dose: 50 mg Tolvaptan (Samsca) 15 mg PO DAILY [facility] Stop: 12/30/16 10:01 Last Admin: 12/26/16 10:54 Dose: 15 mg Tramadol HCl (Ultram) 50 mg PO Q8 PRN PRN Reason: Pain, moderate (4-7) Last Admin: 12/27/16 22:20 Dose: 50 mg - Labs Labs: 12/29/16 08:20 12/29/16 08:20 PT 11.9 Seconds (9.9-11.8) H 12/13/16 16:30 INR 1.10 (0.93-1.08) H 12/13/16 16:30 APTT 27.1 Seconds (23.7-30.8) 12/13/16 16:30 - Constitutional Appears: Non-toxic, No Acute Distress - Head Exam Head Exam: ATRAUMATIC, NORMOCEPHALIC - Eye Exam Eye Exam: EOMI, Normal appearance, PERRL - ENT Exam ENT Exam: Mucous Membranes Moist, Normal Oropharynx - Neck Exam Neck Exam: Normal Inspection. absent: Thyromegaly - Respiratory Exam Respiratory Exam: Clear to Ausculation Bilateral, NORMAL BREATHING PATTERN - Cardiovascular Exam Cardiovascular Exam: Tachycardia, +S1, +S2 - GI/Abdominal Exam GI & Abdominal Exam: Soft, Normal Bowel Sounds - Extremities Exam Additional comments: 2/4 LE edema, thinning of the skin - Back Exam Back Exam: NORMAL INSPECTION - Neurological Exam Neurological Exam: Alert, CN II-XII Intact, Oriented x3 - Psychiatric Exam Psychiatric exam: Agitated, Flat Affect - Skin Additional comments: thinning of skin and some flaking of LE b/l Assessment and Plan - Assessment and Plan (Free Text) Assessment: 51 y/o F with PMH of DM2, CHF with EF of 30%, HTN, non-ischemic cardiomyopathy, chronic pleural effusion, DVT, Recurrent PE on Eliquis, hypothyroidism, and schizophrenia was admitted with acute on chronic systolic heart failure exacerbation with LE edema and superimposed lower extremity cellulitis. Patient has completed 7 days of IV Cefazolin and has no fever or leukocytosis. Patient' s LE edema/pain has much improved since the addition of Dobutamine. Patient is OOB to chair with LE elevated. Patient states she is amenable to physical therapy. Patient re-started on low-dose antipsychotics for worsening agitation and for underlying affective disorder. 12/28/16 pateint complained of chest pain , stat EKG and troponin negative for ACS. Plan: 1) LE Edema likely secondary to decompensated HF and chronic LE edema - IV Furosemide - Dobutamine drip 2.5 mcg/kg/min - Spirinolactone - Losaratan - Leg elevation to heart level for at least 30 minutes, four times daily - Lotrisone discontinued as there is noticeable thinning and increased fragility to the patient's LE skin. 1b) Electrolyte distubance - Elevation in serum bicarbonate, could be due to contraction alkalosis, will obtain ABG to ascertain possible cause. - Tramadol 50 mg q8h PRN for severe pain 2. Diabetes Mellitus - Levemir 20 U HS - ISS low-dose Lispro 3. Atrial Fibrillation - Eliquis 5 mg BID - Metropolol 12.5 BID - Digoxin 4) Hyponatremia, resolved - Na 144 - Tolvaptan 15 mg daily (held), will follow with Nephrology recommendations 5. Hypothyroidism - Synthroid 125 mcg daily 6) Schizophrenia and labile mood - Seroquel 100 mg HS - Risperdal 0.5 mg daily - Clonazepam 0.5 mg BID - Psychiatry, Dr. Polanco consulted 7) GI prophylaxis: Protonix 40 mg PO daily 8) Alkaline phosphatase 197 and AST of 42. - Possibly drug-induced, will continue to monitor. Case discussed with Cardiology and Nephrology. <Will Vela - Last Filed: 12/29/16 15:02> Objective - Vital Signs/Intake and Output Vital Signs (last 24 hours): Temp Pulse Resp BP Pulse Ox 97.5 F L 124 H 22 93/61 L 92 L 12/29/16 11:46 12/29/16 11:46 12/29/16 11:46 12/29/16 11:46 12/29/16 06:00 Intake and Output: 12/29/16 12/29/16 06:59 18:59 Intake Total 100 Output Total 0 Balance 100 - Medications Medications: Current Medications Apixaban (Eliquis) 5 mg PO BID [facility] PRN Reason: Protocol Last Admin: 12/29/16 09:18 Dose: 5 mg Clonazepam (Klonopin) 0.5 mg PO BID [facility] PRN Reason: Protocol Last Admin: 12/29/16 09:16 Dose: 0.5 mg Digoxin (Lanoxin) 0.125 mg PO 1400 [facility] Last Admin: 12/28/16 13:44 Dose: 0.125 mg Ferrous Sulfate (Feosol) 324 mg PO DAILY [facility] Last Admin: 12/29/16 09:17 Dose: 324 mg Furosemide (Lasix) 20 mg IVP Q8 [facility] Insulin Detemir (Levemir) 20 unit SC HS [facility] Last Admin: 12/28/16 21:59 Dose: 20 unit Insulin Human Lispro (Humalog Low) 0 units SC ACHS [facility] PRN Reason: Protocol Last Admin: 12/29/16 11:53 Dose: 3 units Levothyroxine Sodium (Synthroid) 125 mcg PO DAILY [facility] Last Admin: 12/29/16 09:17 Dose: 125 mcg Losartan Potassium (Cozaar) 12.5 mg PO DAILY [facility] Last Admin: 12/29/16 09:15 Dose: 12.5 mg Magnesium Oxide (Mag-Ox) 800 mg PO BID [facility] Last Admin: 12/29/16 09:18 Dose: 800 mg Metoprolol Tartrate (Lopressor) 12.5 mg PO BID [facility] Last Admin: 12/29/16 09:18 Dose: 12.5 mg Ondansetron HCl (Zofran Inj) 4 mg IVP Q4H PRN PRN Reason: Nausea/Vomiting Pantoprazole Sodium (Protonix Ec Tab) 40 mg PO 0600 [facility] Last Admin: 12/29/16 06:22 Dose: 40 mg Polysaccharide Iron Complex (Ferrex-150) 150 mg PO DAILY [facility] Last Admin: 12/29/16 09:15 Dose: 150 mg Potassium Chloride (K-Dur 20 Meq Er Tab) 20 meq PO BID [facility] Last Admin: 12/29/16 09:17 Dose: 20 meq Quetiapine Fumarate (Seroquel) 50 mg PO AMHS [facility] PRN Reason: Protocol Spironolactone (Aldactone) 50 mg PO BID [facility] Last Admin: 12/29/16 09:17 Dose: 50 mg Tolvaptan (Samsca) 15 mg PO DAILY [facility] Stop: 12/30/16 10:01 Last Admin: 12/26/16 10:54 Dose: 15 mg Tramadol HCl (Ultram) 50 mg PO Q8 PRN PRN Reason: Pain, moderate (4-7) Last Admin: 12/27/16 22:20 Dose: 50 mg - Labs Labs: 12/29/16 08:20 12/29/16 08:20 PT 11.9 Seconds (9.9-11.8) H 12/13/16 16:30 INR 1.10 (0.93-1.08) H 12/13/16 16:30 APTT 27.1 Seconds (23.7-30.8) 12/13/16 16:30 Attending/Attestation - Attestation I have personally seen and examined this patient.: Yes I have fully participated in the care of the patient.: Yes I have reviewed all pertinent clinical information, including history, physical exam and plan: Yes Notes (Text): 12/29/16 14:46 Attending note; patient seen and examined with resident. Patient is a 51 year old female with history of DM-2, CHF (EF~30%), HTN, NICMP, chronic pleural effusion, 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 Leg edema has improved. lasix dosage decreased due to contraction alakalosis. case discussed with cardiology in detail. Dobutamine drip discontinued. Continue levemir for DM-2. Continue lopressor and eliquis for afib. patient is refusing to go back to senior care. we'll follow up with physical therapy. test worker evaluation is appreciated. the patient will follow up with PMD Dr. valdez upon discharge. 12/29/16 14:47
[2016-12-29] MEDS: Iron Complex Polysacch 150mg Cap PO SCH (09:15)
[2016-12-29] MEDS: Levothyroxine 125 MCG TAB PO SCH (09:17)
[2016-12-29] MEDS: Potassium Chloride 20 mEq ER Tab PO SCH ×2 (09:17→17:12)
[2016-12-29] MEDS: Magnesium Oxide 400 mg Tab UD PO SCH ×2 (09:18→17:12)
[2016-12-29] MEDS: Clotrimazole/Betamethasone Cream(15 gm) TOP SCH (09:18)
[2016-12-29] MEDS: Digoxin 125 mcg (0.125 mg) Tab PO SCH (14:50)
--- NOTE | 2016-12-29 16:35 | PN ---
SUBJECTIVE: The patient complains of palpitation. She is currently in sinus tachycardia. Her shortness of breath has improved. PHYSICAL EXAMINATION: VITAL SIGNS: Blood pressure 93/61, heart rate 124, temperature 97.5, respiration 22. HEENT: Normocephalic. CHEST: Absent breath sounds over both bases. HEART: S1, S2 regular. ABDOMEN: Soft. EXTREMITIES: Show significant bilateral leg cellulitis. LABORATORY DATA: Hemoglobin and hematocrit 11.9 and 36.2, white count 11.2, and platelet count 361,000. Today's potassium is 4.1, BUN and creatinine are 29 and 0.9. ASSESSMENT: 1. Dilated cardiomyopathy. 2. Sinus tachycardia. 3. Bilateral leg cellulitis. 4. 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 5. Right subclavian deep venous thrombosis. RECOMMENDATIONS: Continue current Aldactone at 50 mg once a day, Eliquis at 5 mg twice a day, K-Dur 20 mEq p.o. twice a day, Lanoxin 0.125 mg daily, Lasix 20 mg intravenously q. 8 hours, Lopressor 12.5 mg twice a day. Discontinue Dobutrex. Case was discussed with the primary physician. The patient wants to go to a motel; however, I recommended that the patient should [facility] because of her multiple medical problems. If the patient insists, then psychiatry evaluation should be obtained. Cesar Kinney MD
[2016-12-29 17:05] LABS: ARTERIAL BLOOD GAS HCO3 27.8 mmol/L (21-28); ARTERIAL BLOOD GAS O2 CAPACITY 17.4 mL/dl (16-24); ARTERIAL BLOOD GAS O2 CONTENT 16.3 ML/dl (15-23); ARTERIAL BLOOD GAS PH 7.56 (7.35-7.45); ARTERIAL BLOOD HGB O2 SAT 90.6 % (95.0-98.0); CARBOXYHEMOGLOBIN 2.6 % (0.5-1.5); HHB 5.9 % (0-5); METHEMOGLOBIN 0.9 % (0.0-3.0)
--- NOTE | 2016-12-29 17:34 | PN ---
NEPHROLOGY FOLLOW NOTE LOCATION: [facility]. SUBJECTIVE: A 52-year-old female with past medical history of severe CHF with systolic dysfunction, mitral regurgitation, bipolar disorder, hypertension and diabetes, admitted with severe decompensated systolic CHF, hyponatremia. Nephrology following for the same. The patient reports having pain in her legs; otherwise, swelling is improved. PHYSICAL EXAMINATION VITAL SIGNS: This morning blood pressure 107/57, heart rate 119, respirations 20, temperature 98.0, and O2 sat 92% on room air. GENERAL: In no distress, lying comfortably in bed, conversing coherently in full sentences. HEENT: Moist mucous membranes. Nonicteric. LUNGS: Decreased breath sounds at the bases bilaterally. No rhonchi, no rales, and no wheezes. HEART: S3 gallop present. ABDOMEN: Soft and mildly tender. EXTREMITIES: Markedly edematous, bilateral legs. SKIN: Warm. No cyanosis. LABORATORY DATA: This morning CBC; WBC of 11.2, hemoglobin 11.9, hematocrit 36.2, platelets 351. Chemistry panel; sodium 140, potassium 4.1, chloride 93, bicarb 37, BUN 29, creatinine 0.9, glucose 150, calcium 9.5, albumin 3.4. ASSESSMENT AND PLAN: 1. Congestive heart failure exacerbation, severe, acutely decompensated systolic congestive heart failure with mitral regurgitation, improving with inotropic support and aggressive diuresis. Continue inotropic support, decreasing dose of loop diuretic due to concern for metabolic alkalosis. 2. Acute kidney injury, resolved with initiation of inotropic support, continue to monitor. 3. Hyponatremia, resolved in the setting of inotropic support close-out done being held. 4. Metabolic alkalosis, questionable whether this is primary alkalosis due to aggressive loop diuretics or there is an element of respiratory acidosis and there is metabolic compensation for it. ABG being ordered to assess. Continue with Aldactone 50 mg b.i.d. with diuretics being decreased to 20 mg q. 8 hours for now. It should be noted that if the patient is to be discharged after stopping inotropic support, will need to establish an aggressive p.o. diuretic regimen before she can be discharged. Akash French MD [facility] # [id number]
--- NOTE | 2016-12-29 20:14 | CON ---
DATE: HISTORY OF PRESENT ILLNESS: The patient is 51-year-old female with history of paranoid personality disorder, most likely the patient has history of bipolar disorder. The patient has history of being admitted to the psychiatric inpatient unit in 05/2016 and this chart writer is familiar with this patient from the previous admission. This time the patient was seen on the medical side, consultation was called for evaluation of medication, possibly resumption of medications. The patient has multiple medical issues including CHF, ejection fraction 30%, hypertension, known ischemic cardiomyopathy, chronic pleural effusion, DVT, recent PE, hypothyroidism, lower extremity edema, multiple medical issues. Please see medical team note for more detailed information. The patient was alert and oriented but the patient complained that she is in pain, was not able to tolerate interview well. The patient stated that she is currently on Seroquel and clonidine. The patient reported that she tolerates medication well. The patient also said that she is not depressed. She denied any thoughts of killing herself or others. The patient denied hearing voice. Denied seeing things. Denied paranoid ideation. PHYSICAL EXAMINATION: VITAL SIGNS: Reviewed. Temperature 97.5, pulse is 24, blood pressure 93/61, and respirations 22. MEDICATIONS: Reviewed. Klonopin 0.5 mg scheduled, Digoxin, FeroSul, Lasix, Levemir, Humalog, Synthroid, Cozaar, magnesium oxide, Lopressor, Zofran, Protonix, Ferrex, K-Dur, Seroquel was 100 mg at night time and Risperdal 0.5 mg daily, spironolactone, and Ultram. LABORATORY DATA: Labs reviewed. The patient has leukocytosis of 11.2. Coagulation reviewed. Chemistries reviewed. AST and ALT 42 and 48. MENTAL STATUS EXAMINATION: The patient was alert and oriented, seems to be in pain. Intermittent eye contact. Speech was underproductive, yes or no answers. Mood describe "I'm okay, I'm not depressed." Affect was constricted, mood in congruent. Thought processes was concrete. Thought content: The patient denies visual, auditory or tactile hallucination. Denies any paranoid ideation. The patient denied thoughts of harming herself or others. Denies intent or plan. Insight and judgement are fair. Impulses are well controlled. IMPRESSION: The patient has history of mental illness, most likely paranoid personality disorder versus bipolar disorder versus schizoaffective disorder. The patient has multiple medical issues, please see above. PLAN: This chart writer will discontinue Risperdal 0.5 mg because the patient is on Seroquel 100 mg. This chart writer will give Seroquel 50 mg twice a day for mood stabilization. The patient also is on Klonopin 0.5 mg twice a day. We will continue that. The patient reported that she has good night sleep. At the present moment, there is no additional medication needed. We will follow up and advice accordingly. Thank you very much for letting me to participate in the care of your patient. Should you have any questions give me a call back. Sherri Castaneda MD
[2016-12-29] MEDS: Insulin Detemir 100 units/ml Vial (Levemir) SC SCH (22:12)
[2016-12-30] MEDS: Pantoprazole 40 mg EC Tab PO SCH (06:30)
[2016-12-30] MEDS: Insulin Lispro (humaLOG) LOW Coverage SC SCH ×4 (08:36→22:09)
--- NOTE | 2016-12-30 08:53 | CP.PCM.PN ---
Subjective - Date & Time of Evaluation Date of Evaluation: 12/30/16 Time of Evaluation: 08:51 - Subjective Subjective: PGY-[address] French's Nephrology Service: Pt seen and examined at bedside. Nursing reports no acute events overnight. Pt c /o continued pain in her bilateral legs, describing it as "stinging feeling." She rates pain 4-6/10. She denies fever, chills, chest pain, and admits improved SOB with exertion. Objective - Vital Signs/Intake and Output Vital Signs (last 24 hours): Temp Pulse Resp BP Pulse Ox 98.9 F 123 H 20 118/72 92 L 12/30/16 06:00 12/30/16 06:00 12/30/16 06:00 12/30/16 06:00 12/29/16 06:00 Intake and Output: 12/30/16 12/30/16 06:59 18:59 Intake Total 120 Output Total 250 Balance -130 - Medications Medications: Current Medications Apixaban (Eliquis) 5 mg PO BID [facility] PRN Reason: Protocol Last Admin: 12/29/16 17:12 Dose: 5 mg Clonazepam (Klonopin) 0.5 mg PO BID [facility] PRN Reason: Protocol Last Admin: 12/29/16 17:12 Dose: 0.5 mg Digoxin (Lanoxin) 0.125 mg PO 1400 [facility] Last Admin: 12/29/16 14:50 Dose: 0.125 mg Ferrous Sulfate (Feosol) 324 mg PO DAILY [facility] Last Admin: 12/29/16 09:17 Dose: 324 mg Furosemide (Lasix) 20 mg IVP Q8 [facility] Last Admin: 12/30/16 06:51 Dose: Not Given Insulin Detemir (Levemir) 20 unit SC HS [facility] Last Admin: 12/29/16 22:12 Dose: 20 unit Insulin Human Lispro (Humalog Low) 0 units SC ACHS [facility] PRN Reason: Protocol Last Admin: 12/30/16 08:36 Dose: 2 units Levothyroxine Sodium (Synthroid) 125 mcg PO DAILY [facility] Last Admin: 12/29/16 09:17 Dose: 125 mcg Losartan Potassium (Cozaar) 12.5 mg PO DAILY [facility] Last Admin: 12/29/16 09:15 Dose: 12.5 mg Magnesium Oxide (Mag-Ox) 800 mg PO BID [facility] Last Admin: 12/29/16 17:12 Dose: 800 mg Metoprolol Tartrate (Lopressor) 12.5 mg PO BID [facility] Last Admin: 12/29/16 17:13 Dose: Not Given Ondansetron HCl (Zofran Inj) 4 mg IVP Q4H PRN PRN Reason: Nausea/Vomiting Pantoprazole Sodium (Protonix Ec Tab) 40 mg PO 0600 [facility] Last Admin: 12/30/16 06:30 Dose: Not Given Polysaccharide Iron Complex (Ferrex-150) 150 mg PO DAILY [facility] Last Admin: 12/29/16 09:15 Dose: 150 mg Potassium Chloride (K-Dur 20 Meq Er Tab) 20 meq PO BID [facility] Last Admin: 12/29/16 17:12 Dose: 20 meq Quetiapine Fumarate (Seroquel) 50 mg PO AMHS [facility] PRN Reason: Protocol Last Admin: 12/29/16 22:13 Dose: 50 mg Spironolactone (Aldactone) 50 mg PO BID [facility] Last Admin: 12/29/16 17:12 Dose: 50 mg Tolvaptan (Samsca) 15 mg PO DAILY [facility] Stop: 12/30/16 10:01 Last Admin: 12/26/16 10:54 Dose: 15 mg Tramadol HCl (Ultram) 50 mg PO Q8 PRN PRN Reason: Pain, moderate (4-7) Last Admin: 12/27/16 22:20 Dose: 50 mg - Labs Labs: 12/29/16 08:20 12/29/16 08:20 PT 11.9 Seconds (9.9-11.8) H 12/13/16 16:30 INR 1.10 (0.93-1.08) H 12/13/16 16:30 APTT 27.1 Seconds (23.7-30.8) 12/13/16 16:30 - Additional Findings Additional findings: - Constitutional Appears: Non-toxic, No Acute Distress - Head Exam Head Exam: NORMAL INSPECTION - Eye Exam Eye Exam: Normal appearance - ENT Exam ENT Exam: Mucous Membranes Moist - Respiratory Exam Respiratory Exam: Clear to Ausculation Bilateral. absent: Respiratory Distress - Cardiovascular Exam Cardiovascular Exam: Irregular Rhythm, +S1, +S2. absent: Rubs - GI/Abdominal Exam GI & Abdominal Exam: Soft, Tenderness - Extremities Exam Additional comments: skin flaking, redness of extremity (worse on right) remain marked bilateral leg edema; - Neurological Exam Neurological Exam: Alert, Awake - Skin Skin Exam: Warm. absent: Cyanosis Assessment and Plan - Assessment and Plan (Free Text) Plan: (1) CHF exacerbation Assessment & Plan: Acute severely decompensated systolic CHF, much improved with inotropic support and aggressive diuresis; -Lasix 20mg IV Q8H -Start Torsemide 20mg PO Q12H Status: Acute (2) Pleural effusion Assessment & Plan: Clinically improving on exam; continue diuresis; Status: Acute (3) Hyponatremia Assessment & Plan: Pt sodium with large downtrend today -(133 from 140 yesterday) Restart tolvaptan 15mg Daily Status: Acute (4) Anemia Hgb stable today Status: Chronic (5) Hyperglycemia Status: Resolved (6) Prerenal azotemia Assessment & Plan: Improved with inotropic support and diuretics; continue; Status: Acute
[2016-12-30 09:29] LABS: HEMATOCRIT 38.3 % (36.0-48.0); MEAN CELL VOLUME 85.7 fl (80.0-105.0); MEAN CORPUSCULAR HEMOGLOBIN 28.4 pg (25.0-35.0); MEAN CORPUSCULAR HGB CONC 33.2 g/dl (31.0-37.0); RED CELL DISTRIBUTION WIDTH 18.2 % (11.5-14.5); WHITE BLOOD COUNT 11.2 10^3/ul (4.5-11.0)
[2016-12-30 09:41] LABS: ALKALINE PHOSPHATASE 205 U/L (38-126); ALT/SGPT 40 U/L (7-56); AST/SGOT 38 U/L (14-36); BILIRUBIN,TOTAL 0.5 mg/dL (0.2-1.3); BLOOD UREA NITROGEN 37 mg/dL (7-21); CALCIUM 8.9 mg/dL (8.4-10.5); CARBON DIOXIDE 31 mmol/L (21-33); CHLORIDE 92 mmol/L (98-107); GFR AFRICAN-AMERICAN > 60; GLUCOSE,RANDOM 277 mg/dL (70-110); MAGNESIUM 2.1 mg/dL (1.7-2.2); POTASSIUM 5.3 mmol/L (3.6-5.0); SODIUM 133 mmol/L (132-148); TOTAL PROTEIN 6.5 g/dL (5.8-8.3)
[2016-12-30] MEDS ORDERED: Insulin Detemir 100 units/ml Vial (Levemir) SC SCH (10:01)
[2016-12-30] MEDS: Magnesium Oxide 400 mg Tab UD PO SCH (10:34)
[2016-12-30] MEDS: Potassium Chloride 20 mEq ER Tab PO SCH (10:34)
[2016-12-30] MEDS: Iron Complex Polysacch 150mg Cap PO SCH (10:44)
[2016-12-30] MEDS: Levothyroxine 125 MCG TAB PO SCH (10:46)
--- NOTE | 2016-12-30 11:01 | CP.PCM.PN ---
<Christiano Lopse - Last Filed: 12/30/16 20:02> Subjective - Date & Time of Evaluation Date of Evaluation: 12/30/16 Time of Evaluation: 11:01 - Subjective Subjective: Christiano Lopes DO, PGY-1, Hospitalist Service Patient seen and examined at bedside. Patient has no complaints. Nurse reports patient's blood pressure is low, held metoprolol PM dose. Objective - Vital Signs/Intake and Output Vital Signs (last 24 hours): Temp Pulse Resp BP Pulse Ox 98.9 F 122 H 20 110/78 92 L 12/30/16 06:00 12/30/16 10:46 12/30/16 06:00 12/30/16 10:46 12/29/16 06:00 Intake and Output: 12/30/16 12/30/16 06:59 18:59 Intake Total 120 Output Total 250 Balance -130 - Medications Medications: Current Medications Apixaban (Eliquis) 5 mg PO BID [facility] PRN Reason: Protocol Last Admin: 12/30/16 10:46 Dose: 5 mg Clonazepam (Klonopin) 0.5 mg PO BID [facility] PRN Reason: Protocol Last Admin: 12/30/16 10:46 Dose: 0.5 mg Digoxin (Lanoxin) 0.125 mg PO 1400 [facility] Last Admin: 12/29/16 14:50 Dose: 0.125 mg Ferrous Sulfate (Feosol) 324 mg PO DAILY [facility] Last Admin: 12/30/16 10:45 Dose: 324 mg Furosemide (Lasix) 20 mg IVP Q8 [facility] Last Admin: 12/30/16 06:51 Dose: Not Given Insulin Detemir (Levemir) 22 unit SC [facility] Insulin Human Lispro (Humalog Low) 0 units SC [facility] PRN Reason: Protocol Last Admin: 12/30/16 08:36 Dose: 2 units Levothyroxine Sodium (Synthroid) 125 mcg PO DAILY [facility] Last Admin: 12/30/16 10:46 Dose: 125 mcg Losartan Potassium (Cozaar) 12.5 mg PO DAILY [facility] Last Admin: 12/30/16 10:46 Dose: 12.5 mg Metoprolol Tartrate (Lopressor) 12.5 mg PO BID [facility] Last Admin: 12/30/16 10:45 Dose: 12.5 mg Ondansetron HCl (Zofran Inj) 4 mg IVP Q4H PRN PRN Reason: Nausea/Vomiting Pantoprazole Sodium (Protonix Ec Tab) 40 mg PO 0600 [facility] Last Admin: 12/30/16 06:30 Dose: Not Given Polysaccharide Iron Complex (Ferrex-150) 150 mg PO DAILY [facility] Last Admin: 12/30/16 10:44 Dose: 150 mg Quetiapine Fumarate (Seroquel) 50 mg PO AMHS [facility] PRN Reason: Protocol Last Admin: 12/30/16 10:45 Dose: 50 mg Spironolactone (Aldactone) 50 mg PO BID [facility] Last Admin: 12/30/16 10:46 Dose: 50 mg Tramadol HCl (Ultram) 50 mg PO Q8 PRN PRN Reason: Pain, moderate (4-7) Last Admin: 12/27/16 22:20 Dose: 50 mg - Labs Labs: 12/30/16 09:15 12/30/16 09:15 PT 11.9 Seconds (9.9-11.8) H 12/13/16 16:30 INR 1.10 (0.93-1.08) H 12/13/16 16:30 APTT 27.1 Seconds (23.7-30.8) 12/13/16 16:30 - Constitutional Appears: Well, No Acute Distress - Head Exam Head Exam: ATRAUMATIC, NORMOCEPHALIC - Eye Exam Eye Exam: EOMI, Normal appearance, PERRL Pupil Exam: NORMAL ACCOMODATION - ENT Exam ENT Exam: Mucous Membranes Moist, Normal Oropharynx - Neck Exam Neck Exam: Normal Inspection - Respiratory Exam Respiratory Exam: Clear to Ausculation Bilateral, NORMAL BREATHING PATTERN - Cardiovascular Exam Cardiovascular Exam: RRR, +S1, +S2 - GI/Abdominal Exam GI & Abdominal Exam: Soft, Normal Bowel Sounds. absent: Guarding, Rebound - Extremities Exam Extremities Exam: Normal Inspection, Pedal Edema (1/4) - Back Exam Back Exam: NORMAL INSPECTION. absent: CVA tenderness (L), CVA tenderness (R) - Neurological Exam Neurological Exam: Alert, Awake, Normal Gait, Oriented x3 - Psychiatric Exam Psychiatric exam: Normal Affect, Normal Mood - Skin Skin Exam: Dry, Intact, Normal Color, Warm Assessment and Plan - Assessment and Plan (Free Text) Assessment: 51 y/o F with PMH of DM2, CHF with EF of 30%, HTN, non-ischemic cardiomyopathy, chronic pleural effusion, DVT, Recurrent PE on Eliquis, hypothyroidism, and schizophrenia was admitted with acute on chronic systolic heart failure exacerbation with LE edema and superimposed lower extremity cellulitis. Patient has completed 7 days of IV Cefazolin and has no fever or leukocytosis. Patient' s LE edema/pain has much improved since the addition of Dobutamine. Patient is OOB to chair with LE elevated. Patient states she is amenable to physical therapy. Patient re-started on low-dose antipsychotics for worsening agitation and for underlying affective disorder. 12/28/16 patient complained of chest pain , stat EKG and troponin negative for ACS. 12/29/16 patient's dobutamine drip was discontinued. Patient was OOB and walking today. Plan: Plan: 1) LE Edema likely secondary to decompensated HF and chronic LE edema - IV Furosemide, - Spirinolactone - Losaratan - Leg elevation to heart level for at least 30 minutes, four times daily - OOB and walking with assistance 1b) Electrolyte disturbance - Will defer to nephrology - Tramadol 50 mg q8h PRN for severe pain 2. Diabetes Mellitus - Levemir 20 U HS - ISS low-dose Lispro 3. Atrial Fibrillation - Eliquis 5 mg BID - Metropolol 12.5 BID - Digoxin 4) Hyponatremia - Na 133, will continue to monitor 5. Hypothyroidism - Synthroid 125 mcg daily 6) Schizophrenia and labile mood - Seroquel 50 mg HS - Clonazepam 0.5 mg PO once at 22:00 - Psychiatry, Dr. Polanco consulted, appreciate recommendations 7) GI prophylaxis: Protonix 40 mg PO daily - Possibly drug-induced, will continue to monitor. Case discussed with Cardiology and Nephrology. <Will Vela - Last Filed: 12/31/16 11:03> Objective - Vital Signs/Intake and Output Vital Signs (last 24 hours): Temp Pulse Resp BP Pulse Ox 97.5 F L 116 H 18 92/67 L 94 L 12/31/16 06:00 12/31/16 10:30 12/31/16 06:00 12/31/16 10:30 12/31/16 06:00 Intake and Output: 12/31/16 12/31/16 06:59 18:59 Output Total 850 Balance -850 - Medications Medications: Current Medications Apixaban (Eliquis) 5 mg PO BID [facility] PRN Reason: Protocol Last Admin: 12/31/16 10:30 Dose: 5 mg Clonazepam (Klonopin) 0.5 mg PO DAILY [facility] PRN Reason: Protocol Digoxin (Lanoxin) 0.125 mg PO 1400 [facility] Last Admin: 12/30/16 15:19 Dose: 0.125 mg Ferrous Sulfate (Feosol) 324 mg PO DAILY [facility] Last Admin: 12/31/16 10:30 Dose: 324 mg Furosemide (Lasix) 20 mg IVP Q8 [facility] Last Admin: 12/31/16 06:52 Dose: 20 mg Insulin Detemir (Levemir) 22 unit SC HS [facility] Last Admin: 12/30/16 22:03 Dose: 22 unit Insulin Human Lispro (Humalog Low) 0 units SC [facility] PRN Reason: Protocol Last Admin: 12/31/16 08:28 Dose: 1 units Levothyroxine Sodium (Synthroid) 125 mcg PO DAILY [facility] Last Admin: 12/31/16 10:30 Dose: 125 mcg Losartan Potassium (Cozaar) 12.5 mg PO DAILY [facility] Last Admin: 12/31/16 10:21 Dose: Not Given Metoprolol Tartrate (Lopressor) 12.5 mg PO BID [facility] Last Admin: 12/31/16 10:30 Dose: 12.5 mg Ondansetron HCl (Zofran Inj) 4 mg IVP Q4H PRN PRN Reason: Nausea/Vomiting Pantoprazole Sodium (Protonix Ec Tab) 40 mg PO 0600 [facility] Last Admin: 12/31/16 06:52 Dose: 40 mg Polysaccharide Iron Complex (Ferrex-150) 150 mg PO DAILY [facility] Last Admin: 12/31/16 10:44 Dose: Not Given Quetiapine Fumarate (Seroquel) 50 mg PO AMHS [facility] PRN Reason: Protocol Last Admin: 12/31/16 10:29 Dose: 50 mg Spironolactone (Aldactone) 50 mg PO BID [facility] Last Admin: 12/31/16 10:30 Dose: 50 mg Tolvaptan (Samsca) 15 mg PO DAILY [facility] Stop: 01/01/17 11:28 Last Admin: 12/30/16 13:25 Dose: 15 mg Torsemide (Demadex) 20 mg PO Q12H [facility] Last Admin: 12/30/16 23:24 Dose: 20 mg Tramadol HCl (Ultram) 50 mg PO Q8 PRN PRN Reason: Pain, moderate (4-7) Last Admin: 12/27/16 22:20 Dose: 50 mg - Labs Labs: 12/31/16 07:51 12/31/16 07:51 PT 11.9 Seconds (9.9-11.8) H 12/13/16 16:30 INR 1.10 (0.93-1.08) H 12/13/16 16:30 APTT 27.1 Seconds (23.7-30.8) 12/13/16 16:30 Attending/Attestation - Attestation I have personally seen and examined this patient.: Yes I have fully participated in the care of the patient.: Yes I have reviewed all pertinent clinical information, including history, physical exam and plan: Yes Notes (Text): 12/31/16 11:02 Attending note; patient seen and examined with resident. Patient is a 51 year old female with history of DM-2, CHF (EF~30%), HTN, NICMP, chronic pleural effusion, 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 Leg edema has improved. lasix dosage decreased. started on demadex. case discussed with cardiology in detail. Dobutamine drip discontinued. Continue levemir for DM-2. Continue lopressor and eliquis for afib. patient is refusing to go back to intermediate. physical therapy recommending rehabilitation. building maintenance worker evaluation is appreciated. the patient will follow up with PMD Dr. valdez upon discharge.
[2016-12-30] MEDS: Tolvaptan 15 MG TAB PO SCH (13:25)
[2016-12-30] MEDS: Digoxin 125 mcg (0.125 mg) Tab PO SCH (15:19)
--- NOTE | 2016-12-30 16:06 | CP.PCM.PN ---
Subjective - Date & Time of Evaluation Date of Evaluation: 12/30/16 Time of Evaluation: 10:30 - Subjective Subjective: Still has occasional pain in the legs. No fevers. Objective - Vital Signs/Intake and Output Vital Signs (last 24 hours): Temp Pulse Resp BP Pulse Ox 98.9 F 123 H 20 118/72 92 L 12/30/16 06:00 12/30/16 06:00 12/30/16 06:00 12/30/16 06:00 12/29/16 06:00 Intake and Output: 12/29/16 12/30/16 18:59 06:59 Intake Total 45 120 Output Total 250 Balance 45 -130 - Medications Medications: Current Medications Apixaban (Eliquis) 5 mg PO BID [facility] PRN Reason: Protocol Last Admin: 12/29/16 17:12 Dose: 5 mg Clonazepam (Klonopin) 0.5 mg PO BID [facility] PRN Reason: Protocol Last Admin: 12/29/16 17:12 Dose: 0.5 mg Digoxin (Lanoxin) 0.125 mg PO 1400 [facility] Last Admin: 12/29/16 14:50 Dose: 0.125 mg Ferrous Sulfate (Feosol) 324 mg PO DAILY [facility] Last Admin: 12/29/16 09:17 Dose: 324 mg Furosemide (Lasix) 20 mg IVP Q8 [facility] Last Admin: 12/29/16 22:14 Dose: 20 mg Insulin Detemir (Levemir) 20 unit SC HS [facility] Last Admin: 12/29/16 22:12 Dose: 20 unit Insulin Human Lispro (Humalog Low) 0 units SC [facility] PRN Reason: Protocol Last Admin: 12/29/16 22:30 Dose: Not Given Levothyroxine Sodium (Synthroid) 125 mcg PO DAILY [facility] Last Admin: 12/29/16 09:17 Dose: 125 mcg Losartan Potassium (Cozaar) 12.5 mg PO DAILY [facility] Last Admin: 12/29/16 09:15 Dose: 12.5 mg Magnesium Oxide (Mag-Ox) 800 mg PO BID [facility] Last Admin: 12/29/16 17:12 Dose: 800 mg Metoprolol Tartrate (Lopressor) 12.5 mg PO BID [facility] Last Admin: 12/29/16 17:13 Dose: Not Given Ondansetron HCl (Zofran Inj) 4 mg IVP Q4H PRN PRN Reason: Nausea/Vomiting Pantoprazole Sodium (Protonix Ec Tab) 40 mg PO 0600 [facility] Last Admin: 12/29/16 06:22 Dose: 40 mg Polysaccharide Iron Complex (Ferrex-150) 150 mg PO DAILY [facility] Last Admin: 12/29/16 09:15 Dose: 150 mg Potassium Chloride (K-Dur 20 Meq Er Tab) 20 meq PO BID [facility] Last Admin: 12/29/16 17:12 Dose: 20 meq Quetiapine Fumarate (Seroquel) 50 mg PO AMHS [facility] PRN Reason: Protocol Last Admin: 12/29/16 22:13 Dose: 50 mg Spironolactone (Aldactone) 50 mg PO BID [facility] Last Admin: 12/29/16 17:12 Dose: 50 mg Tolvaptan (Samsca) 15 mg PO DAILY [facility] Stop: 12/30/16 10:01 Last Admin: 12/26/16 10:54 Dose: 15 mg Tramadol HCl (Ultram) 50 mg PO Q8 PRN PRN Reason: Pain, moderate (4-7) Last Admin: 12/27/16 22:20 Dose: 50 mg - Labs Labs: 12/29/16 08:20 12/29/16 08:20 PT 11.9 Seconds (9.9-11.8) H 12/13/16 16:30 INR 1.10 (0.93-1.08) H 12/13/16 16:30 APTT 27.1 Seconds (23.7-30.8) 12/13/16 16:30 - Constitutional Appears: Non-toxic, No Acute Distress - Head Exam Head Exam: NORMAL INSPECTION - ENT Exam ENT Exam: Mucous Membranes Moist - Neck Exam Neck Exam: absent: Meningismus - Respiratory Exam Respiratory Exam: Decreased Breath Sounds - Cardiovascular Exam Cardiovascular Exam: +S1, +S2 - GI/Abdominal Exam GI & Abdominal Exam: Soft. absent: Tenderness - Extremities Exam Extremities Exam: Pedal Edema Assessment and Plan - Assessment and Plan (Free Text) Plan: Assessment bilateral lower extremity swelling, consider venous stasis in a patient with chronic congestive heart failure, with probable superimposed cellulitis, clinically improved and S/P treatment history of lower UTI with Klebsiella and Pseudomonas associated with Witt catheter S/P severe sepsis S/P hypoxic ventilator-dependent respiratory failure probably due to bilateral lower lobe healthcare-associated pneumonia history of hyperglycemic, hyperosmolar state with acute pancreatitis history of VRE in the urine - probably asymptomatic bacteriuria chronic congestive heart failure due to cardiomyopathy history of healthcare-associated pneumonia, right middle lobe history of bilateral healthcare-associated pneumonia S/P acute cholecystitis, S/P laparoscopic cholecystectomy CAD DM HTN history of migraines bipolar disorder Plan will continue to monitor off antibiotics since she is at risk for nosocomial infections
--- NOTE | 2016-12-30 20:21 | PN ---
DATE: SUBJECTIVE: The patient was followed up today as per medical team request. As per collateral information from the primary care physician Dr. David Mcintosh, the patient was making no rational decisions about her disposition plan. The patient has multiple medical issues including congestive heart failure, lower extremity cellulitis, and bilateral lower extremity swelling. The patient also has electrolyte imbalance and hypothyroidism. Discharger spoke to the patient today, the patient does not have basic understanding what medical diagnosis she has. The patient said that she wants to be discharged to the [place] [facility]. At the same time, the patient is not able to even walk, when discharged asked how she is planing to walk the patient said "don't worry, I will show you how I can walk." Meanwhile the patient is not even able to sit in the chair for long time. At the same time, when discharger asked her what medical issues does she have, the patient mentioned only hypothyroidism and dyslipidemia. The patient was not able to understand that she has CHF and also pleural effusion, electrolyte imbalance, and multiple medical issues. From this lead technical writer prospective, the patient does not have factual understanding of diagnosis as well as risk of staying in the [place] [facility] as well as the patient does not have reasoning ability, the patient does not have insight and depreciation, but the patient was able to indicate the preferences, which seems to be irrational. PHYSICAL EXAMINATION VITAL SIGNS: Besides that, vital signs seems to be stable, but the patient is very tachycardiac. Pulse is 113, temperature 97.5, blood pressure 89/59, and respiration 20. LABORATORY DATA: Reviewed, leukocytosis 11.2, electrolyte imbalance, potassium 5.3, and chloride 92. MEDICATIONS: Reviewed, the patient is on Klonopin 0.5 mg twice a day, digoxin Lasix, Levemir, Humalog, levothyroxine, Cozaar, Lopressor, Zofran, Protonix, Ferrex, Seroquel 50 mg twice a day, spironolactone, and Ultram for pain. MENTAL STATUS EXAMINATION: Appears to be alert, emotional, labile, and was tearful during the interview, which could alternate with cursing and screaming. Intermittent eye contact. Speech was underproductive. Mood described "okay, okay, I am fine." Affect was constricted and irritable. Mood incongruent. Thought process seems to be concrete. Thought content: The patient denies visual auditory, or tactile hallucinations. Denies paranoid ideations. The patient denies thoughts of harming herself or others. Denies intent or plan. The patient has poor insight and judgement and impulses are not predictable. IMPRESSION: As per history the patient has paranoid personality disorder, rule out bipolar disorder. The patient has only one psychiatric admission to this facility. Please see notes for more detailed information. PLAN: Continue current management. Continue current medication. From discharge prospective the patient does not have a capacity to make decision about her disposition plan because the patient does not have basic understanding of her medial issues as well as medical diagnosis. She was making decisions that she needs to go to [place] [facility]. The patient is not even able to walk. Physical therapy needs to be involved over the weekend. There is no need for the patient to be followed up with psychiatrist in case of urgent questions or urgent issues they can call Dr. Jama for consultation. Meanwhile, discharger will follow up on this patient on Monday. Should they have any questions give me a call back. Case was discussed with Dr. David Mcintosh. Dr. David Mcintosh was in agreement to with our plan. Thank you very much for letting me to participate in the care of your patient. Should you have any questions give me a call back. Sherri Castaneda MD
--- NOTE | 2016-12-30 20:55 | PN ---
DATE: SUBJECTIVE: The patient is more cooperative today, she has visitors, and she is happy with her company. Shortness of breath has improved. PHYSICAL EXAMINATION VITAL SIGNS: Blood pressure 105/61, heart rate 115, sinus tachycardia , temperature 97.5, respirations 20. HEENT: Improved facial edema. CHEST: Absent breath sounds over both bases. HEART: S1 and S2, regular. EXTREMITIES: Bilateral leg cellulitis. LABORATORY DATA: Hemoglobin and hematocrit within normal limit. White count is 11.2, platelet count is within normal limit. SMA-7: Sodium 133, potassium 5.3, chloride 92, CO2 is 31, glucose 277, BUN 37 and creatinine 0.9. ASSESSMENT: 1. Congestive heart failure. 2. Right subclavian vein thrombosis. 3. Hypothyroidism. RECOMMENDATIONS: Continue Aldactone 50 mg twice a day, Cozaar 12.5 mg once a day, Demadex 20 mg twice a day, Eliquis 5 mg twice a day, Lenoxin 0.125 mg daily, Lasix 20 mg intravenously q.8 hours, Lopressor 12.5 mg twice a day, Synthroid 125 mcg once a day. Cesar Kinney MD
[2016-12-31] MEDS: Pantoprazole 40 mg EC Tab PO SCH (06:52)
[2016-12-31 07:59] LABS: BASO # 0.04 K/mm3 (0.0-2.0); BASO % 0.4 % (0.0-3.0); EOS # 0.3 (0.0-0.7); GRAN # 7.14 (1.4-6.5); GRAN % 65.1 % (50.0-68.0); HEMATOCRIT 39.9 % (36.0-48.0); LYMPH # 2.7 (1.2-3.4); LYMPH % 24.5 % (22.0-35.0); MEAN CELL VOLUME 86.4 fl (80.0-105.0); MEAN CORPUSCULAR HEMOGLOBIN 27.7 pg (25.0-35.0); MEAN CORPUSCULAR HGB CONC 32.1 g/dl (31.0-37.0); MEAN PLATELET VOLUME 9.9 fl (7.0-11.0); MONO # 0.8 (0.1-0.6); RED CELL DISTRIBUTION WIDTH 18.5 % (11.5-14.5)
[2016-12-31 08:23] LABS: BLOOD UREA NITROGEN 39 mg/dL (7-21); CALCIUM 9.5 mg/dL (8.4-10.5); CARBON DIOXIDE 31 mmol/L (21-33); CHLORIDE 91 mmol/L (98-107); GFR AFRICAN-AMERICAN > 60; GLUCOSE,RANDOM 159 mg/dL (70-110); PHOSPHOROUS 4.1 mg/dL (2.5-4.5); POTASSIUM 4.9 mmol/L (3.6-5.0); SODIUM 137 mmol/L (132-148)
[2016-12-31] MEDS: Insulin Lispro (humaLOG) LOW Coverage SC SCH ×4 (08:28→22:09)
[2016-12-31] MEDS: Levothyroxine 125 MCG TAB PO SCH (10:30)
[2016-12-31] MEDS: Iron Complex Polysacch 150mg Cap PO SCH (10:44)
[2016-12-31] MEDS: Tolvaptan 15 MG TAB PO SCH (11:20)
--- NOTE | 2016-12-31 12:45 | CP.PCM.PN ---
<Christiano Lopes - Last Filed: 12/31/16 12:45> Subjective - Date & Time of Evaluation Date of Evaluation: 12/31/16 Time of Evaluation: 08:00 - Subjective Subjective: Christiano Lopes DO, PGY-1, Hospitalist Service Patient seen and examined at bedside. Patient denies any chest pain, nasuea, vomiting, or diarrhea. Nurse reports no events overnight. Patient denies LE pain or SOB. Patient request for physical therapy services. Objective - Vital Signs/Intake and Output Vital Signs (last 24 hours): Temp Pulse Resp BP Pulse Ox 97.6 F 116 H 20 92/67 L 94 L 12/31/16 12:00 12/31/16 12:10 12/31/16 12:00 12/31/16 12:10 12/31/16 06:00 Intake and Output: 12/31/16 12/31/16 06:59 18:59 Intake Total 220 Output Total 850 Balance -630 - Medications Medications: Current Medications Apixaban (Eliquis) 5 mg PO BID [facility] PRN Reason: Protocol Last Admin: 12/31/16 10:30 Dose: 5 mg Clonazepam (Klonopin) 0.5 mg PO DAILY [facility] PRN Reason: Protocol Digoxin (Lanoxin) 0.125 mg PO 1400 [facility] Last Admin: 12/30/16 15:19 Dose: 0.125 mg Ferrous Sulfate (Feosol) 324 mg PO DAILY [facility] Last Admin: 12/31/16 10:30 Dose: 324 mg Furosemide (Lasix) 20 mg IVP Q8 [facility] Last Admin: 12/31/16 06:52 Dose: 20 mg Insulin Detemir (Levemir) 22 unit SC HS [facility] Last Admin: 12/30/16 22:03 Dose: 22 unit Insulin Human Lispro (Humalog Low) 0 units SC ACHS [facility] PRN Reason: Protocol Last Admin: 12/31/16 12:06 Dose: 2 units Levothyroxine Sodium (Synthroid) 125 mcg PO DAILY [facility] Last Admin: 12/31/16 10:30 Dose: 125 mcg Losartan Potassium (Cozaar) 12.5 mg PO DAILY [facility] Last Admin: 12/31/16 12:10 Dose: 12.5 mg Metoprolol Tartrate (Lopressor) 12.5 mg PO BID [facility] Last Admin: 12/31/16 10:30 Dose: 12.5 mg Ondansetron HCl (Zofran Inj) 4 mg IVP Q4H PRN PRN Reason: Nausea/Vomiting Pantoprazole Sodium (Protonix Ec Tab) 40 mg PO 0600 [facility] Last Admin: 12/31/16 06:52 Dose: 40 mg Polysaccharide Iron Complex (Ferrex-150) 150 mg PO DAILY [facility] Last Admin: 12/31/16 10:44 Dose: Not Given Quetiapine Fumarate (Seroquel) 50 mg PO AMHS [facility] PRN Reason: Protocol Last Admin: 12/31/16 10:29 Dose: 50 mg Spironolactone (Aldactone) 50 mg PO BID [facility] Last Admin: 12/31/16 10:30 Dose: 50 mg Tolvaptan (Samsca) 15 mg PO DAILY [facility] Stop: 01/01/17 11:28 Last Admin: 12/31/16 11:20 Dose: 15 mg Torsemide (Demadex) 20 mg PO Q12H [facility] Last Admin: 12/31/16 11:38 Dose: 20 mg Tramadol HCl (Ultram) 50 mg PO Q8 PRN PRN Reason: Pain, moderate (4-7) Last Admin: 12/27/16 22:20 Dose: 50 mg - Labs Labs: 12/31/16 07:51 12/31/16 07:51 PT 11.9 Seconds (9.9-11.8) H 12/13/16 16:30 INR 1.10 (0.93-1.08) H 12/13/16 16:30 APTT 27.1 Seconds (23.7-30.8) 12/13/16 16:30 - Constitutional Appears: Well, No Acute Distress - Head Exam Head Exam: ATRAUMATIC, NORMOCEPHALIC - Eye Exam Eye Exam: EOMI, Normal appearance, PERRL - ENT Exam ENT Exam: Mucous Membranes Moist, Normal Oropharynx - Neck Exam Neck Exam: Normal Inspection. absent: Thyromegaly - Respiratory Exam Respiratory Exam: Clear to Ausculation Bilateral, NORMAL BREATHING PATTERN. absent: Rales - Cardiovascular Exam Cardiovascular Exam: RRR, +S1, +S2 - GI/Abdominal Exam GI & Abdominal Exam: Soft, Normal Bowel Sounds. absent: Tenderness, Rebound - Extremities Exam Extremities Exam: Normal Inspection. absent: Joint Swelling Additional comments: 1/4 LE edema, 95% improved - Back Exam Back Exam: NORMAL INSPECTION. absent: CVA tenderness (L), CVA tenderness (R) - Neurological Exam Neurological Exam: Alert, CN II-XII Intact, Normal Gait, Oriented x3 Neuro motor strength exam: Left Upper Extremity: 5, Right Upper Extremity: 5, Left Lower Extremity: 5, Right Lower Extremity: 5 - Psychiatric Exam Psychiatric exam: Normal Affect, Normal Mood - Skin Skin Exam: Dry, Intact, Normal Color, Warm Assessment and Plan - Assessment and Plan (Free Text) Assessment: 51 y/o F with PMH of DM2, CHF with EF of 30%, HTN, non-ischemic cardiomyopathy, chronic pleural effusion, DVT, Recurrent PE on Eliquis, hypothyroidism, and schizophrenia was admitted with acute on chronic systolic heart failure exacerbation with LE edema and superimposed lower extremity cellulitis. Patient has completed 7 days of IV Cefazolin and has no fever or leukocytosis. Patient' s LE edema/pain has much improved since the addition of Dobutamine. Patient is OOB to chair with LE elevated. Patient states she is amenable to physical therapy. Patient re-started on low-dose antipsychotics for worsening agitation and for underlying affective disorder. 12/28/16 patient complained of chest pain , stat EKG and troponin negative for ACS. 12/29/16 patient's dobutamine drip was discontinued. Patient was OOB and walking today. Physical therapy to see patient on Monday and will be cleared medically for discharge. 1) LE Edema likely secondary to decompensated HF and chronic LE edema - IV Furosemide, - Spirinolactone - Losaratan - Leg elevation to heart level for at least 30 minutes, four times daily - OOB and walking with assistance 1b) Electrolyte disturbance - Will defer to nephrology - Tramadol 50 mg q8h PRN for severe pain 2. Diabetes Mellitus - Levemir 20 U HS - ISS low-dose Lispro 3. Atrial Fibrillation - Eliquis 5 mg BID - Metropolol 12.5 BID - Digoxin 4) Hyponatremia - Na 133, will continue to monitor 5. Hypothyroidism - Synthroid 125 mcg daily 6) Schizophrenia and labile mood - Seroquel 50 mg HS - Clonazepam 0.5 mg PO once at 22:00 - Psychiatry, Dr. Polanco consulted, appreciate recommendations 7) GI prophylaxis: Protonix 40 mg PO daily - Possibly drug-induced, will continue to monitor. Case discussed with Cardiology and Nephrology. Plan: 1) LE edema, maximally improved, patient has little no pitting edema and has no pain. - Furosemide - Spirinolactone, with hold parameters - Torsemide - Losartan, with hold parameters - Leg elevation to heart level for at least 30 minutes, four times daily - OOB and walking with assistance 1b) Electrolyte disturbance, resolved 2. Diabetes Mellitus - Levemir 22 U HS - ISS low-dose Lispro 3. Atrial Fibrillation - Eliquis 5 mg BID - Metropolol 12.5 BID - Digoxin 4) Hyponatremia, resolved 5. Hypothyroidism - Synthroid 125 mcg daily 6) Schizophrenia and labile mood - Seroquel 50 mg HS - Clonazepam 0.5 mg PO once at 22:00 - Psychiatry, Dr. Polanco consulted, appreciate recommendations. 7) GI prophylaxis: Protonix 40 mg PO daily 8) Disposition: Good. Patient is medically ready for discharge, pending social work and Physical Therapy, we will continue to monitor. Case discussed with Cardiology, Nephrology, Psychiatry, client support manager, and social media analyst. <Will Vela - Last Filed: 12/31/16 15:37> Objective - Vital Signs/Intake and Output Vital Signs (last 24 hours): Temp Pulse Resp BP Pulse Ox 97.6 F 107 H 20 104/70 94 L 12/31/16 12:00 12/31/16 14:00 12/31/16 12:00 12/31/16 14:02 12/31/16 06:00 Intake and Output: 12/31/16 12/31/16 06:59 18:59 Intake Total 880 Output Total 1100 Balance -220 - Medications Medications: Current Medications Apixaban (Eliquis) 5 mg PO BID [facility] PRN Reason: Protocol Last Admin: 12/31/16 10:30 Dose: 5 mg Clonazepam (Klonopin) 0.5 mg PO DAILY [facility] PRN Reason: Protocol Digoxin (Lanoxin) 0.125 mg PO 1400 [facility] Last Admin: 12/31/16 14:03 Dose: 0.125 mg Ferrous Sulfate (Feosol) 324 mg PO DAILY [facility] Last Admin: 12/31/16 10:30 Dose: 324 mg Furosemide (Lasix) 20 mg IVP Q8 [facility] Last Admin: 12/31/16 14:02 Dose: 20 mg Insulin Detemir (Levemir) 22 unit SC HS [facility] Last Admin: 12/30/16 22:03 Dose: 22 unit Insulin Human Lispro (Humalog Low) [address] [facility] PRN Reason: Protocol Last Admin: 12/31/16 12:06 Dose: 2 units Levothyroxine Sodium (Synthroid) 125 mcg PO DAILY [facility] Last Admin: 12/31/16 10:30 Dose: 125 mcg Losartan Potassium (Cozaar) 12.5 mg PO DAILY [facility] Last Admin: 12/31/16 12:10 Dose: 12.5 mg Metoprolol Tartrate (Lopressor) 12.5 mg PO BID [facility] Last Admin: 12/31/16 10:30 Dose: 12.5 mg Ondansetron HCl (Zofran Inj) 4 mg IVP Q4H PRN PRN Reason: Nausea/Vomiting Pantoprazole Sodium (Protonix Ec Tab) 40 mg PO 0600 [facility] Last Admin: 12/31/16 06:52 Dose: 40 mg Polysaccharide Iron Complex (Ferrex-150) 150 mg PO DAILY [facility] Last Admin: 12/31/16 10:44 Dose: Not Given Quetiapine Fumarate (Seroquel) 50 mg PO [facility] PRN Reason: Protocol Last Admin: 12/31/16 10:29 Dose: 50 mg Spironolactone (Aldactone) 50 mg PO BID [facility] Last Admin: 12/31/16 10:30 Dose: 50 mg Tolvaptan (Samsca) 15 mg PO DAILY [facility] Stop: 01/01/17 11:28 Last Admin: 12/31/16 11:20 Dose: 15 mg Torsemide (Demadex) 20 mg PO Q12H [facility] Last Admin: 12/31/16 11:38 Dose: 20 mg Tramadol HCl (Ultram) 50 mg PO Q8 PRN PRN Reason: Pain, moderate (4-7) Last Admin: 12/27/16 22:20 Dose: 50 mg - Labs Labs: 12/31/16 07:51 12/31/16 07:51 PT 11.9 Seconds (9.9-11.8) H 12/13/16 16:30 INR 1.10 (0.93-1.08) H 12/13/16 16:30 APTT 27.1 Seconds (23.7-30.8) 12/13/16 16:30 Attending/Attestation - Attestation I have personally seen and examined this patient.: Yes I have fully participated in the care of the patient.: Yes I have reviewed all pertinent clinical information, including history, physical exam and plan: Yes Notes (Text): 12/31/16 15:34 Attending note; patient seen and examined with resident. Patient is a 51 year old female with history of DM-2, CHF (EF~30%), HTN, NICMP, chronic pleural effusion, 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 Leg edema has improved. continue lasix and demadex. case discussed with cardiology in detail. continue Lopressor, Cozaar, Aldactone. Continue levemir for DM-2. dosage increased. patient is refusing to go back to care home. black ash worker evaluation is appreciated. the patient will follow up with PMD Dr. valdez upon discharge.
--- NOTE | 2016-12-31 13:13 | PN ---
NEPHROLOGY FOLLOWUP NOTE LOCATION: [facility] SUBJECTIVE: A 52-year-old female with past medical history of CHF with severe systolic dysfunction with mitral regurgitation, atrial fibrillation, status post DVT, on Eliquis; admitted with lower extremity cellulitis and decompensated CHF. Nephrology following for acute renal failure, hyponatremia, and decompensated CHF. The patient reportedly was walking in the hallways yesterday with assistance has been more active. PHYSICAL EXAMINATION: VITAL SIGNS: This morning, blood pressure 106/62, heart rate 110, respirations 18, temperature 97.5, and O2 sat 94% on room air. GENERAL: In no distress, sitting comfortably on a chair with legs raised. HEENT: Moist mucous membranes. Nonicteric. RESPIRATORY: Decreased breath sounds bilaterally, but much improved. No rales. No rhonchi. No wheezes. HEART: Systolic murmur appreciated. No gallop. Tachycardic. ABDOMEN: Soft and mildly tender. EXTREMITIES: Marked bilateral leg edema, but improved. SKIN: Warm. No cyanosis. PSYCHIATRIC: Normal mood. LABORATORY DATA: This morning, CBC; WBC of 11.0, hemoglobin 12.8, hematocrit 39.9, platelets 432. Chemistry panel; sodium 137, potassium 4.9, chloride 91, bicarb 31, BUN 39, creatinine 0.9, glucose 159, phosphorous 4.1. ASSESSMENT AND PLAN: 1. Congestive heart failure exacerbation, acute, severely decompensated systolic congestive heart failure with mitral regurgitation; off inotropic support since last 2 days; labs relatively stable; diuretics increased with addition of p.o. torsemide 20 mg b.i.d. yesterday on top of IV Lasix 20 mg q. 8 hours; clinically appears stable with somewhat decreased leg edema; continue current diuretics along with Aldactone 50 mg b.i.d. 2. Hyperkalemia, mild, seen yesterday, improved after increasing loop diuretic dosing; continue to monitor. 3. Metabolic alkalosis in the setting of aggressive loop diuresis, overall has improved, but the patient also has an element of respiratory alkalosis as well. Continue Aldactone to help offset metabolic alkalosis. 4. Metabolic acidosis on top of the metabolic alkalosis, has evidence by mildly increased anion gap of 16; we will check lactate level. 5. Hyponatremia in the setting of severe congestive heart failure. The patient placed back on tolvaptan 15 mg daily, continue the same. 6. Hypertension/atrial fibrillation. The patient on metoprolol 12.5 mg b.i.d., losartan 12.5 mg daily as well as diuretics as mentioned above and digoxin. Continue to follow up with cardiology. RECOMMENDATIONS: Recommend to not hold a blood pressure/diuretic medications unless systolic blood pressure less than 90. Akash French MD
--- NOTE | 2016-12-31 13:51 | PN ---
DATE: 12/31/2016 SUBJECTIVE: The patient is in bed. No acute distress. PHYSICAL EXAMINATION VITAL SIGNS: Temperature is 97 and blood pressure is 106/90, respiratory rate of 18. HEENT: Unremarkable. NECK: Supple. LUNGS: Decreased breath sounds. HEART: Normal S1 and S2. ABDOMEN: Soft, nontender. LABORATORY DATA: Examination reveals a white count of 11,00, hemoglobin of 12, and platelets of 432, BUN of 39, creatinine of 0.9. Alkaline phosphatase is 205. Urinalysis is noted. Blood cultures are negative; urine cultures are negative. ASSESSMENT AND PLAN: This is a 51-year-old female with bilateral lower extremity swelling and venous stasis in a patient with chronic congestive heart failure, probable superimposed cellulitis, clinically improved, status post treatment history of lower urinary tract infection of Klebsiella and pseudomonas, associated with a Witt catheter, status post severe sepsis, status post hypoxic ventilatory dependent respiratory due to bilateral lower lobe healthcare-associated pneumonia, history of hyperglycemia, hyperosmolar state with acute pancreatitis, history of vancomycin-resistant Enterococcus in urine and probably asymptomatic bacteriuria, chronic congestive heart failure due to cardiomyopathy and a history of healthcare-associated pneumonia, right middle lobe, status post acute cholecystitis and status post laparoscopic cholecystectomy in a patient with coronary artery disease, diabetes, hypertension history of migraine and bipolar disorder, currently off of antibiotics, afebrile with a white count of 11,000 this morning. The patient is a risk of developing nosocomial infection if the patient is not receiving anything intravenously. We would discontinue the IV access to minimize development of nosocomial infections. Yehuda Valentino MD
[2016-12-31] MEDS: Digoxin 125 mcg (0.125 mg) Tab PO SCH (14:03)
--- NOTE | 2016-12-31 15:18 | PN ---
DATE: SUBJECTIVE: The patient denies any chest pain and she is complaining of bilateral leg pain. PHYSICAL EXAMINATION: VITAL SIGNS: Blood pressure 92/67, heart rate 116, temperature 97.6, and respirations 20. HEENT: Normocephalic. CHEST: Absent breath sounds at the bases. HEART: S1 and S2 regular. EXTREMITIES: Bilateral leg cellulitis with 2+ edema. LABORATORY DATA: Hemoglobin, hematocrit, white count, and platelet count are within normal limit. SMA-7 is within normal limits except for glucose of 159, chloride of 91, and BUN of 39. ASSESSMENT: 1. Cardiomyopathy. 2. Right subclavian thrombosis. 3. Bilateral leg cellulitis. 4. Mild prerenal azotemia. 5. Depression. 6. Anemia. CONDITIONS: Continue Aldactone 50 mg once day, Cozaar 12.5 mg once a day, Demadex 20 mg p.o. twice a day, ferrous sulfate 1 tablet twice a day, Eliquis 5 mg twice a day, Lanoxin 0.125 mg daily, Lasix 20 mg intravenously q.8 hours, Lopressor 12.5 mg twice a day, and Synthroid 125 mcg once a day. Case was discussed with Dr. French. Cesar Kinney MD
[2016-12-31] MEDS: Insulin Detemir 100 units/ml Vial (Levemir) SC SCH (22:25)
[2017-01-01] MEDS: Pantoprazole 40 mg EC Tab PO SCH (05:34)
[2017-01-01 07:39] LABS: BASO # 0.05 K/mm3 (0.0-2.0); BASO % 0.4 % (0.0-3.0); EOS # 0.3 (0.0-0.7); EOS % 2.3 % (1.5-5.0); GRAN # 7.51 (1.4-6.5); GRAN % 65.7 % (50.0-68.0); HEMATOCRIT 37.8 % (36.0-48.0); LYMPH # 2.5 (1.2-3.4); LYMPH % 22.2 % (22.0-35.0); MEAN CELL VOLUME 85.5 fl (80.0-105.0); MEAN CORPUSCULAR HEMOGLOBIN 27.8 pg (25.0-35.0); MEAN CORPUSCULAR HGB CONC 32.5 g/dl (31.0-37.0); MEAN PLATELET VOLUME 10.1 fl (7.0-11.0); MONO # 1.1 (0.1-0.6); MONO % 9.4 % (1.0-6.0); RED CELL DISTRIBUTION WIDTH 18.3 % (11.5-14.5); WHITE BLOOD COUNT 11.4 10^3/ul (4.5-11.0)
[2017-01-01 07:53] LABS: BLOOD UREA NITROGEN 37 mg/dL (7-21); CALCIUM 9.3 mg/dL (8.4-10.5); CHLORIDE 93 mmol/L (98-107); GFR AFRICAN-AMERICAN > 60; GLUCOSE,RANDOM 170 mg/dL (70-110); MAGNESIUM 1.9 mg/dL (1.7-2.2); PHOSPHOROUS 3.7 mg/dL (2.5-4.5); POTASSIUM 4.2 mmol/L (3.6-5.0); SODIUM 136 mmol/L (132-148)
[2017-01-01 08:10] LABS: CARBON DIOXIDE 34 mmol/L (21-33)
[2017-01-01] MEDS: Insulin Lispro (humaLOG) LOW Coverage SC SCH ×4 (08:51→21:41)
--- NOTE | 2017-01-01 09:21 | CP.PCM.PN ---
<Christiano Lopes - Last Filed: 01/01/17 09:43> Subjective - Date & Time of Evaluation Date of Evaluation: 01/01/17 Time of Evaluation: 09:20 - Subjective Subjective: Christiano Lopes DO, PGY-1, Hospitalist Service Patient seen and examined at bedside. Patient denies any chest pain, dyspnea, nausea, vomiting, or diarrhea. Patient states she wants something for LE paresthesias. Nurse reports no events overnight. Objective - Vital Signs/Intake and Output Vital Signs (last 24 hours): Temp Pulse Resp BP Pulse Ox 97.4 F L 117 H 19 94/67 L 94 L 01/01/17 06:00 01/01/17 06:00 01/01/17 06:00 01/01/17 06:00 01/01/17 06:00 Intake and Output: 01/01/17 01/01/17 06:59 18:59 Intake Total 180 Output Total 1400 Balance -1220 - Medications Medications: Current Medications Apixaban (Eliquis) 5 mg PO BID [facility] PRN Reason: Protocol Last Admin: 12/31/16 17:10 Dose: 5 mg Clonazepam (Klonopin) 0.5 mg PO DAILY [facility] PRN Reason: Protocol Last Admin: 12/31/16 22:03 Dose: 0.5 mg Digoxin (Lanoxin) 0.125 mg PO 1400 [facility] Last Admin: 12/31/16 14:03 Dose: 0.125 mg Ferrous Sulfate (Feosol) 324 mg PO DAILY [facility] Last Admin: 12/31/16 10:30 Dose: 324 mg Furosemide (Lasix) 20 mg IVP Q8 [facility] Last Admin: 01/01/17 05:33 Dose: Not Given Gabapentin (Neurontin) 100 mg PO BID [facility] PRN Reason: Protocol Insulin Detemir (Levemir) 25 unit SC HS [facility] Last Admin: 12/31/16 22:25 Dose: 25 unit Insulin Human Lispro (Humalog Low) 0 units SC ACHS [facility] PRN Reason: Protocol Last Admin: 01/01/17 08:51 Dose: 1 units Levothyroxine Sodium (Synthroid) 125 mcg PO DAILY [facility] Last Admin: 12/31/16 10:30 Dose: 125 mcg Losartan Potassium (Cozaar) 12.5 mg PO DAILY [facility] Last Admin: 12/31/16 12:10 Dose: 12.5 mg Metoprolol Tartrate (Lopressor) 12.5 mg PO BID [facility] Last Admin: 12/31/16 17:09 Dose: 12.5 mg Ondansetron HCl (Zofran Inj) 4 mg IVP Q4H PRN PRN Reason: Nausea/Vomiting Pantoprazole Sodium (Protonix Ec Tab) 40 mg PO 0600 [facility] Last Admin: 01/01/17 05:34 Dose: 40 mg Polysaccharide Iron Complex (Ferrex-150) 150 mg PO DAILY [facility] Last Admin: 12/31/16 10:44 Dose: Not Given Quetiapine Fumarate (Seroquel) 50 mg PO AMHS [facility] PRN Reason: Protocol Last Admin: 12/31/16 22:02 Dose: 50 mg Spironolactone (Aldactone) 50 mg PO BID [facility] Last Admin: 12/31/16 17:08 Dose: 50 mg Tolvaptan (Samsca) 15 mg PO DAILY [facility] Stop: 01/01/17 11:28 Last Admin: 12/31/16 11:20 Dose: 15 mg Torsemide (Demadex) 20 mg PO Q12H [facility] Last Admin: 12/31/16 23:29 Dose: 20 mg Tramadol HCl (Ultram) 50 mg PO Q8 PRN PRN Reason: Pain, moderate (4-7) Last Admin: 12/27/16 22:20 Dose: 50 mg - Labs Labs: 01/01/17 07:29 01/01/17 07:29 PT 11.9 Seconds (9.9-11.8) H 12/13/16 16:30 INR 1.10 (0.93-1.08) H 12/13/16 16:30 APTT 27.1 Seconds (23.7-30.8) 12/13/16 16:30 - Constitutional Appears: Well, No Acute Distress - Head Exam Head Exam: ATRAUMATIC, NORMOCEPHALIC - Eye Exam Eye Exam: EOMI, Normal appearance, PERRL - ENT Exam ENT Exam: Mucous Membranes Moist, Normal Oropharynx - Neck Exam Neck Exam: Normal Inspection. absent: Thyromegaly - Respiratory Exam Respiratory Exam: Clear to Ausculation Bilateral, NORMAL BREATHING PATTERN. absent: Rales - Cardiovascular Exam Cardiovascular Exam: Tachycardia, +S1, +S2 - GI/Abdominal Exam GI & Abdominal Exam: Soft, Normal Bowel Sounds. absent: Guarding, Rebound - Extremities Exam Additional comments: 1/4 LE edema without erythema, non-tender to palpation - Back Exam Back Exam: NORMAL INSPECTION. absent: CVA tenderness (L), CVA tenderness (R) - Neurological Exam Neurological Exam: Alert, CN II-XII Intact, Oriented x3 Neuro motor strength exam: Left Upper Extremity: 5, Right Upper Extremity: 5, Left Lower Extremity: 5, Right Lower Extremity: 5 - Psychiatric Exam Psychiatric exam: Normal Affect, Normal Mood - Skin Skin Exam: Dry, Intact, Normal Color, Warm Assessment and Plan - Assessment and Plan (Free Text) Assessment: 51 y/o F with PMH of DM2, CHF with EF of 30%, HTN, non-ischemic cardiomyopathy, chronic pleural effusion, DVT, Recurrent PE on Eliquis, hypothyroidism, and schizophrenia was admitted with acute on chronic systolic heart failure exacerbation with LE edema and superimposed lower extremity cellulitis. Patient has completed 7 days of IV Cefazolin and has no fever or leukocytosis. Patient' s LE edema/pain has much improved since the addition of Dobutamine. Patient is OOB to chair with LE elevated. Patient states she is amenable to physical therapy. Patient re-started on low-dose antipsychotics for worsening agitation and for underlying affective disorder. 12/28/16 patient complained of chest pain , stat EKG and troponin negative for ACS. 12/29/16 patient's dobutamine drip was discontinued. Patient was OOB and walking today. Physical therapy to see patient on Monday and will be cleared medically for discharge. Plan: 1) LE edema, maximally improved, patient has little no pitting edema and has no pain. - Furosemide - Spirinolactone, with hold parameters - Torsemide - Losartan, with hold parameters - Leg elevation to heart level for at least 30 minutes, four times daily - OOB and walking with assistance 1b) Electrolyte disturbance, resolved 2. Diabetes Mellitus - Levemir 22 U HS - ISS low-dose Lispro - Neurontin 100 mg BID for diabetic neuropathy 3. Atrial Fibrillation - Eliquis 5 mg BID - Metropolol 12.5 BID - Digoxin 4) Hyponatremia, resolved 5. Hypothyroidism - Synthroid 125 mcg daily 6) Schizophrenia and labile mood - Seroquel 50 mg HS - Clonazepam 0.5 mg PO once at 22:00 - Psychiatry, Dr. Polanco consulted, appreciate recommendations. 7) GI prophylaxis: Protonix 40 mg PO daily 8) Disposition: Good. Patient is medically ready for discharge, pending social work and Physical Therapy, we will continue to monitor. <Will Vela - Last Filed: 01/01/17 10:57> Objective - Vital Signs/Intake and Output Vital Signs (last 24 hours): Temp Pulse Resp BP Pulse Ox 97.4 F L 72 19 100/60 94 L 01/01/17 06:00 01/01/17 09:39 01/01/17 06:00 01/01/17 09:39 01/01/17 06:00 Intake and Output: 01/01/17 01/01/17 06:59 18:59 Intake Total 180 Output Total 1400 Balance -1220 - Medications Medications: Current Medications Apixaban (Eliquis) 5 mg PO BID [facility] PRN Reason: Protocol Last Admin: 01/01/17 09:36 Dose: 5 mg Clonazepam (Klonopin) 0.5 mg PO DAILY [facility] PRN Reason: Protocol Last Admin: 01/01/17 09:40 Dose: 0.5 mg Digoxin (Lanoxin) 0.125 mg PO 1400 [facility] Last Admin: 12/31/16 14:03 Dose: 0.125 mg Ferrous Sulfate (Feosol) 324 mg PO DAILY [facility] Last Admin: 01/01/17 09:40 Dose: 324 mg Furosemide (Lasix) 20 mg IVP Q8 [facility] Last Admin: 01/01/17 05:33 Dose: Not Given Gabapentin (Neurontin) 100 mg PO BID [facility] PRN Reason: Protocol Last Admin: 01/01/17 09:45 Dose: 100 mg Insulin Detemir (Levemir) 25 unit SC HS [facility] Last Admin: 12/31/16 22:25 Dose: 25 unit Insulin Human Lispro (Humalog Low) 0 units SC ACHS [facility] PRN Reason: Protocol Last Admin: 01/01/17 08:51 Dose: 1 units Levothyroxine Sodium (Synthroid) 125 mcg PO DAILY [facility] Last Admin: 01/01/17 09:45 Dose: 125 mcg Losartan Potassium (Cozaar) 12.5 mg PO DAILY [facility] Last Admin: 01/01/17 09:38 Dose: 12.5 mg Metoprolol Tartrate (Lopressor) 12.5 mg PO BID [facility] Last Admin: 01/01/17 09:39 Dose: Not Given Ondansetron HCl (Zofran Inj) 4 mg IVP Q4H PRN PRN Reason: Nausea/Vomiting Pantoprazole Sodium (Protonix Ec Tab) 40 mg PO 0600 [facility] Last Admin: 01/01/17 05:34 Dose: 40 mg Polysaccharide Iron Complex (Ferrex-150) 150 mg PO DAILY [facility] Last Admin: 01/01/17 09:40 Dose: Not Given Quetiapine Fumarate (Seroquel) 50 mg PO AMHS [facility] PRN Reason: Protocol Last Admin: 01/01/17 09:36 Dose: 50 mg Spironolactone (Aldactone) 50 mg PO BID [facility] Last Admin: 01/01/17 09:37 Dose: 50 mg Tolvaptan (Samsca) 15 mg PO DAILY [facility] Stop: 01/01/17 11:28 Last Admin: 12/31/16 11:20 Dose: 15 mg Torsemide (Demadex) 20 mg PO Q12H [facility] Last Admin: 12/31/16 23:29 Dose: 20 mg Tramadol HCl (Ultram) 50 mg PO Q8 PRN PRN Reason: Pain, moderate (4-7) Last Admin: 12/27/16 22:20 Dose: 50 mg - Labs Labs: 01/01/17 07:29 01/01/17 07:29 PT 11.9 Seconds (9.9-11.8) H 12/13/16 16:30 INR 1.10 (0.93-1.08) H 12/13/16 16:30 APTT 27.1 Seconds (23.7-30.8) 12/13/16 16:30 Attending/Attestation - Attestation I have personally seen and examined this patient.: Yes I have fully participated in the care of the patient.: Yes I have reviewed all pertinent clinical information, including history, physical exam and plan: Yes Notes (Text): 01/01/17 10:56 Attending note; patient seen and examined with resident. Patient is a 51 year old female with history of DM-2, CHF (EF~30%), HTN, NICMP, chronic pleural effusion, 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 Leg edema has improved. continue lasix and demadex. case discussed with cardiology in detail. continue Lopressor, Cozaar, Aldactone. Continue levemir for DM-2. dosage increased. patient [facility] Follow-up with case supervisor/social work msw on Monday for discharge planning. the patient will follow up with PMD Dr. valdez upon discharge.
[2017-01-01] MEDS: Iron Complex Polysacch 150mg Cap PO SCH (09:40)
[2017-01-01] MEDS: Levothyroxine 125 MCG TAB PO SCH (09:45)
[2017-01-01] MEDS: Tolvaptan 15 MG TAB PO SCH (12:50)
[2017-01-01] MEDS: Digoxin 125 mcg (0.125 mg) Tab PO SCH (14:28)
--- NOTE | 2017-01-01 18:05 | PN ---
SUBJECTIVE: The patient is in bed, in no acute distress. Nontoxic. PHYSICAL EXAMINATION: VITAL SIGNS: Temperature 98, blood pressure 102/60, respiratory rate of 16. HEENT: Unremarkable. NECK: Supple. LUNGS: Have decreased breath sounds. HEART: Normal S1 and S2. ABDOMEN: Soft, nontender. LABORATORY DATA: Reveals a white count of 11,400; hemoglobin of 12. Platelets are noted. BUN 37, creatinine 0.9. Chemistries are noted. Urinalysis is noted. Toxicology is noted. Microbiology reveals the blood cultures are negative, urine cultures are negative. REVIEW OF ORDERS: Revealed the patient is off of antibiotics. ASSESSMENT AND PLAN: The patient is a 51-year-old female with history of bilateral lower extremity swelling and probable superimposed cellulitis and clinically improved status post treatment, history of urinary tract infection Klebsiella and pseudomonas associated with Witt catheters status post severe sepsis and hypoxic ventilatory dependent respiratory failure due to bilateral health-care associated pneumonia, history of hypoglycemia, hyperosmolar state with acute pancreatitis, history of vancomycin-resistant Enterococci in urine and probably asymptomatic bacteriuria, chronic congestive heart failure due to cardiomyopathy and a history of healthcare-associated pneumonia, right middle lobe, status post acute cholecystitis and status post laparoscopic cholecystectomy in a patient with coronary artery disease, diabetes, hypertension history of migraine and bipolar disorder, currently off of antibiotics. I have discussed with the patient regarding moving the IV access on the patient to minimize the possibility of developing nosocomial infections. Yehuda Valentino MD
--- NOTE | 2017-01-01 21:36 | CP.PCM.PN ---
Subjective - Date & Time of Evaluation Date of Evaluation: 01/01/17 Time of Evaluation: 11:30 - Subjective Subjective: Patient wanting to be discharged; again complaining of pain in her legs; Objective - Vital Signs/Intake and Output Vital Signs (last 24 hours): Temp Pulse Resp BP Pulse Ox 98.1 F 68 19 100/60 94 L 01/01/17 12:00 01/01/17 18:00 01/01/17 12:00 01/01/17 17:19 01/01/17 06:00 - Medications Medications: Current Medications Apixaban (Eliquis) 5 mg PO BID [facility] PRN Reason: Protocol Last Admin: 01/01/17 17:19 Dose: 5 mg Clonazepam (Klonopin) 0.5 mg PO DAILY [facility] PRN Reason: Protocol Last Admin: 01/01/17 09:40 Dose: 0.5 mg Digoxin (Lanoxin) 0.125 mg PO 1400 [facility] Last Admin: 01/01/17 14:28 Dose: 0.125 mg Ferrous Sulfate (Feosol) 324 mg PO DAILY [facility] Last Admin: 01/01/17 09:40 Dose: 324 mg Furosemide (Lasix) 20 mg IVP Q8 [facility] Last Admin: 01/01/17 05:33 Dose: Not Given Gabapentin (Neurontin) 100 mg PO BID [facility] PRN Reason: Protocol Last Admin: 01/01/17 09:45 Dose: 100 mg Insulin Detemir (Levemir) 25 unit SC HS [facility] Last Admin: 12/31/16 22:25 Dose: 25 unit Insulin Human Lispro (Humalog Low) 0 units SC ACHS [facility] PRN Reason: Protocol Last Admin: 01/01/17 17:20 Dose: 1 units Levothyroxine Sodium (Synthroid) 125 mcg PO DAILY [facility] Last Admin: 01/01/17 09:45 Dose: 125 mcg Losartan Potassium (Cozaar) 12.5 mg PO DAILY [facility] Last Admin: 01/01/17 09:38 Dose: 12.5 mg Metoprolol Tartrate (Lopressor) 12.5 mg PO BID [facility] Last Admin: 01/01/17 17:19 Dose: 12.5 mg Ondansetron HCl (Zofran Inj) 4 mg IVP Q4H PRN PRN Reason: Nausea/Vomiting Pantoprazole Sodium (Protonix Ec Tab) 40 mg PO 0600 [facility] Last Admin: 01/01/17 05:34 Dose: 40 mg Polysaccharide Iron Complex (Ferrex-150) 150 mg PO DAILY [facility] Last Admin: 01/01/17 09:40 Dose: Not Given Quetiapine Fumarate (Seroquel) 50 mg PO AMHS [facility] PRN Reason: Protocol Last Admin: 01/01/17 09:36 Dose: 50 mg Spironolactone (Aldactone) 50 mg PO BID [facility] Last Admin: 01/01/17 17:19 Dose: 50 mg Torsemide (Demadex) 20 mg PO Q12H [facility] Last Admin: 01/01/17 12:51 Dose: 20 mg Tramadol HCl (Ultram) 50 mg PO Q8 PRN PRN Reason: Pain, moderate (4-7) Last Admin: 12/27/16 22:20 Dose: 50 mg - Labs Labs: 01/01/17 07:29 01/01/17 07:29 PT 11.9 Seconds (9.9-11.8) H 12/13/16 16:30 INR 1.10 (0.93-1.08) H 12/13/16 16:30 APTT 27.1 Seconds (23.7-30.8) 12/13/16 16:30 - Constitutional Appears: Non-toxic, No Acute Distress - Head Exam Head Exam: NORMAL INSPECTION - Eye Exam Eye Exam: Normal appearance. absent: Scleral icterus - ENT Exam ENT Exam: Mucous Membranes Moist - Respiratory Exam Respiratory Exam: absent: Rales, Rhonchi, Wheezes, Respiratory Distress Additional comments: decreased breath sounds bilaterally at bases; - Cardiovascular Exam Cardiovascular Exam: REGULAR RHYTHM. absent: Gallop - GI/Abdominal Exam GI & Abdominal Exam: Soft. absent: Distended, Tenderness - Extremities Exam Additional comments: markedly edematous legs; - Neurological Exam Neurological Exam: Alert, Awake - Psychiatric Exam Psychiatric exam: Normal Mood - Skin Skin Exam: Normal Color, Warm. absent: Cyanosis Assessment and Plan (1) CHF exacerbation Assessment & Plan: Severely decompensated systolic CHF w/ MR; overall improved; stable off inotropic support; continuing with torsemide 20 mg PO bid and aldactone 50 mg bid; holding IV lasix and reassessing; f/u with cardio for adjustments to B- melissa and ARB; Status: Acute (2) Pleural effusion Assessment & Plan: Bilateral effusions but clinically stable; continue diuretics; Status: Acute (3) Hyponatremia Assessment & Plan: Improved on tolvaptan 15 mg daily; continue; Status: Acute (4) Anemia Status: Resolved (5) Hyperglycemia Status: Resolved (6) Prerenal azotemia Assessment & Plan: Secondary to severe CHF; continue diuretics and CHF management; Status: Acute (7) Metabolic alkalosis Assessment & Plan: Secondary to loop diuretics; holding IV lasix; continue aldactone to offset alkalosis; Status: Acute
[2017-01-01] MEDS: Insulin Detemir 100 units/ml Vial (Levemir) SC SCH (21:53)
[2017-01-02 06:27] LABS: BASO # 0.06 K/mm3 (0.0-2.0); BASO % 0.5 % (0.0-3.0); EOS # 0.2 (0.0-0.7); GRAN # 6.96 (1.4-6.5); GRAN % 61.4 % (50.0-68.0); HEMATOCRIT 39.3 % (36.0-48.0); LYMPH # 3.3 (1.2-3.4); MEAN CELL VOLUME 85.4 fl (80.0-105.0); MEAN CORPUSCULAR HGB CONC 32.8 g/dl (31.0-37.0); MONO # 0.8 (0.1-0.6); MONO % 7.1 % (1.0-6.0); RED CELL DISTRIBUTION WIDTH 18.5 % (11.5-14.5); WHITE BLOOD COUNT 11.3 10^3/ul (4.5-11.0)
[2017-01-02] MEDS: Pantoprazole 40 mg EC Tab PO SCH (06:40)
[2017-01-02 06:49] LABS: BLOOD UREA NITROGEN 39 mg/dL (7-21); CALCIUM 9.1 mg/dL (8.4-10.5); CARBON DIOXIDE 28 mmol/L (21-33); CHLORIDE 93 mmol/L (98-107); GFR AFRICAN-AMERICAN > 60; GLUCOSE,RANDOM 148 mg/dL (70-110); MAGNESIUM 1.8 mg/dL (1.7-2.2); PHOSPHOROUS 3.9 mg/dL (2.5-4.5); POTASSIUM 4.4 mmol/L (3.6-5.0); SODIUM 133 mmol/L (132-148)
[2017-01-02] MEDS: Insulin Lispro (humaLOG) LOW Coverage SC SCH ×4 (08:25→21:54)
[2017-01-02] MEDS: Levothyroxine 125 MCG TAB PO SCH (10:47)
[2017-01-02] MEDS: Iron Complex Polysacch 150mg Cap PO SCH ×2 (10:47→10:57)
--- NOTE | 2017-01-02 13:37 | PN ---
DATE: SUBJECTIVE: The patient is at bedside. She ambulated with physical therapy. PHYSICAL EXAMINATION: VITAL SIGNS: Blood pressure 103/67, heart rate 105, temperature 98, respiration 20. HEENT: Improved facial edema. CHEST: Absent breath sounds over the bases. HEART: S1 and S2 regular. EXTREMITIES: 2+ pitting edema. LABORATORY DATA: Hemoglobin and hematocrit 12.9 and 39.3, white count 11.3, platelet count 449,000. SMA-7: Sodium 133, potassium 4.4, chloride 96, CO2 is 28, glucose 148, BUN 39, creatinine 0.9. ASSESSMENT: 1. Biventricular failure. 2. Right subclavian thrombosis. 3. Leg cellulitis. 4. Depression. 5. Uncontrolled diabetes mellitus. RECOMMENDATIONS: Case was discussed with Dr. Amador. Continue current Aldactone 50 mg twice a day, Cozaar 12.5 mg once a day, Demadex mg q. 12 hours, Eliquis 5 mg twice a day, Lanoxin 0.125 mg orally daily, Lopressor 12.5 mg twice a day, Synthroid 125 mcg once a day. The patient refuses to go to subacute rehab and thus no decision about where the patient will go after discharge. I did ask the patient if she will go to her sister's house; however, she did not give me any answer if her sister will accept her or not. Cesar Kinney MD
[2017-01-02] MEDS: Digoxin 125 mcg (0.125 mg) Tab PO SCH (14:47)
--- NOTE | 2017-01-02 16:42 | CP.PCM.PN ---
<Gin Pires - Last Filed: 01/02/17 16:57> Subjective - Date & Time of Evaluation Date of Evaluation: 01/02/17 Time of Evaluation: 10:30 - Subjective Subjective: Hospitalist Service Progress Note: Patient seen and examined at bedside. Per nursing no acute events overnight. Patient is doing well, still complaining of B/L LE pain. States vomited a little this am during but was able to tolerate the rest of her breakfast. Denies headaches, dizziness, cp, palpitations, sob, urinary symptoms. Objective - Vital Signs/Intake and Output Vital Signs (last 24 hours): Temp Pulse Resp BP Pulse Ox 98 F 105 H 20 103/67 94 L 01/02/17 11:36 01/02/17 11:36 01/02/17 11:36 01/02/17 11:36 01/01/17 06:00 Intake and Output: 01/02/17 01/02/17 06:59 18:59 Intake Total 600 360 Output Total 300 800 Balance 300 -440 - Medications Medications: Current Medications Apixaban (Eliquis) 5 mg PO BID [facility] PRN Reason: Protocol Last Admin: 01/02/17 11:26 Dose: 5 mg Clonazepam (Klonopin) 0.5 mg PO DAILY [facility] PRN Reason: Protocol Last Admin: 01/02/17 10:45 Dose: 0.5 mg Digoxin (Lanoxin) 0.125 mg PO 1400 [facility] Last Admin: 01/02/17 14:47 Dose: 0.125 mg Ferrous Sulfate (Feosol) 324 mg PO DAILY [facility] Last Admin: 01/02/17 10:47 Dose: 324 mg Furosemide (Lasix) 20 mg IVP Q8 [facility] Last Admin: 01/01/17 05:33 Dose: Not Given Gabapentin (Neurontin) 100 mg PO BID [facility] PRN Reason: Protocol Last Admin: 01/02/17 10:56 Dose: Not Given Insulin Detemir (Levemir) 25 unit SC HS [facility] Last Admin: 01/01/17 21:53 Dose: 25 unit Insulin Human Lispro (Humalog Low) 0 units SC ACHS [facility] PRN Reason: Protocol Last Admin: 01/02/17 11:53 Dose: Not Given Levothyroxine Sodium (Synthroid) 125 mcg PO DAILY [facility] Last Admin: 01/02/17 10:47 Dose: 125 mcg Losartan Potassium (Cozaar) 12.5 mg PO DAILY [facility] Last Admin: 01/02/17 10:46 Dose: 12.5 mg Metoprolol Tartrate (Lopressor) 12.5 mg PO BID [facility] Last Admin: 01/02/17 10:47 Dose: 12.5 mg Ondansetron HCl (Zofran Inj) 4 mg IVP Q4H PRN PRN Reason: Nausea/Vomiting Last Admin: 01/02/17 10:05 Dose: 4 mg Pantoprazole Sodium (Protonix Ec Tab) 40 mg PO 0600 [facility] Last Admin: 01/02/17 06:40 Dose: 40 mg Polysaccharide Iron Complex (Ferrex-150) 150 mg PO DAILY [facility] Last Admin: 01/02/17 10:57 Dose: Not Given Quetiapine Fumarate (Seroquel) 50 mg PO AMHS [facility] PRN Reason: Protocol Last Admin: 01/02/17 10:45 Dose: 50 mg Spironolactone (Aldactone) 50 mg PO BID [facility] Last Admin: 01/02/17 10:46 Dose: 50 mg Torsemide (Demadex) 30 mg PO Q12H [facility] Last Admin: 01/02/17 11:23 Dose: 30 mg Tramadol HCl (Ultram) 50 mg PO Q8 PRN PRN Reason: Pain, moderate (4-7) Last Admin: 01/02/17 06:41 Dose: 50 mg - Labs Labs: 01/02/17 06:00 01/02/17 06:00 PT 11.9 Seconds (9.9-11.8) H 12/13/16 16:30 INR 1.10 (0.93-1.08) H 12/13/16 16:30 APTT 27.1 Seconds (23.7-30.8) 12/13/16 16:30 - Constitutional Appears: Non-toxic, No Acute Distress - Head Exam Head Exam: ATRAUMATIC, NORMAL INSPECTION - Eye Exam Eye Exam: EOMI, Normal appearance Pupil Exam: NORMAL ACCOMODATION - ENT Exam ENT Exam: Mucous Membranes Moist - Neck Exam Neck Exam: Full ROM - Respiratory Exam Respiratory Exam: Decreased Breath Sounds, NORMAL BREATHING PATTERN - Cardiovascular Exam Cardiovascular Exam: REGULAR RHYTHM, +S1, +S2 - GI/Abdominal Exam GI & Abdominal Exam: Soft. absent: Tenderness - Extremities Exam Extremities Exam: Normal Inspection Additional comments: +2 LE pitting edema B/L with dry skin Erythema improving - Back Exam Back Exam: NORMAL INSPECTION - Neurological Exam Neurological Exam: Alert, Awake, Oriented x3 - Psychiatric Exam Psychiatric exam: Anxious, Normal Affect, Normal Mood - Skin Skin Exam: Normal Color Assessment and Plan - Assessment and Plan (Free Text) Assessment: 51 y/o F with PMH of DM2, CHF with EF of 30%, HTN, non-ischemic cardiomyopathy, chronic pleural effusion, DVT, Recurrent PE on Eliquis, hypothyroidism, and schizophrenia was admitted with acute on chronic systolic heart failure exacerbation with LE edema and superimposed lower extremity cellulitis. Patient has completed 7 days of IV Cefazolin and has no fever or leukocytosis. Patient' s LE edema/pain has much improved since the addition of Dobutamine. Patient is OOB to chair with LE elevated. Patient states she is amenable to physical therapy. Patient re-started on low-dose antipsychotics for worsening agitation and for underlying affective disorder. 12/28/16 patient complained of chest pain , stat EKG and troponin negative for ACS. 12/29/16 patient's dobutamine drip was discontinued. Patient was OOB and walking today. Physical therapy to see patient on Monday and will be cleared medically for discharge. Plan: 1. Acute on Chronic CHF exacerbation - EF approx 30% - Clinically improving - Continue Toresamide, Spirinolactone - Lasix held - Continue Losartan - Continue Leg elevation - OOB and walking with assistance - Cardiology on consult, f/u recommendations 2. B/L LE cellulitis -Continue diuresis -Pain control prn - Ultram 3. Diabetes Mellitus - Levemir 25 U HS - ISS low-dose and accuchecks - Neurontin 100 mg BID for diabetic neuropathy 3. Atrial Fibrillation, rate controlled - Eliquis 5 mg BID - Metropolol 12.5 BID - Continue Digoxin 4. Hyponatremia, resolved - Continue to monitor - Nephrology on consult, f/u recommendations 5. Hypothyroidism - Synthroid 125 mcg daily 6. Schizophrenia and labile mood - Seroquel 50 mg HS - Psychiatry, Dr. Polanco consulted, appreciate recommendations. GI/DVT prophylaxis: - Protonix 40 mg PO daily - Eliquis 5mg BID <Annmarie Amador - Last Filed: 01/02/17 17:52> Objective - Vital Signs/Intake and Output Vital Signs (last 24 hours): Temp Pulse Resp BP Pulse Ox 98 F 105 H 20 103/67 94 L 01/02/17 11:36 01/02/17 11:36 01/02/17 11:36 01/02/17 11:36 01/01/17 06:00 Intake and Output: 01/02/17 01/02/17 06:59 18:59 Intake Total 600 360 Output Total 300 800 Balance 300 -440 - Medications Medications: Current Medications Apixaban (Eliquis) 5 mg PO BID [facility] PRN Reason: Protocol Last Admin: 01/02/17 11:26 Dose: 5 mg Clonazepam (Klonopin) 0.5 mg PO DAILY [facility] PRN Reason: Protocol Last Admin: 01/02/17 10:45 Dose: 0.5 mg Digoxin (Lanoxin) 0.125 mg PO 1400 [facility] Last Admin: 01/02/17 14:47 Dose: 0.125 mg Ferrous Sulfate (Feosol) 324 mg PO DAILY [facility] Last Admin: 01/02/17 10:47 Dose: 324 mg Furosemide (Lasix) 20 mg IVP Q8 [facility] Last Admin: 01/01/17 05:33 Dose: Not Given Gabapentin (Neurontin) 100 mg PO BID [facility] PRN Reason: Protocol Last Admin: 01/02/17 10:56 Dose: Not Given Insulin Detemir (Levemir) 25 unit SC HS [facility] Last Admin: 01/01/17 21:53 Dose: 25 unit Insulin Human Lispro (Humalog Low) 0 units SC ACHS [facility] PRN Reason: Protocol Last Admin: 01/02/17 16:44 Dose: 2 units Levothyroxine Sodium (Synthroid) 125 mcg PO DAILY [facility] Last Admin: 01/02/17 10:47 Dose: 125 mcg Losartan Potassium (Cozaar) 12.5 mg PO DAILY [facility] Last Admin: 01/02/17 10:46 Dose: 12.5 mg Metoprolol Tartrate (Lopressor) 12.5 mg PO BID [facility] Last Admin: 01/02/17 10:47 Dose: 12.5 mg Ondansetron HCl (Zofran Inj) 4 mg IVP Q4H PRN PRN Reason: Nausea/Vomiting Last Admin: 01/02/17 10:05 Dose: 4 mg Pantoprazole Sodium (Protonix Ec Tab) 40 mg PO 0600 [facility] Last Admin: 01/02/17 06:40 Dose: 40 mg Polysaccharide Iron Complex (Ferrex-150) 150 mg PO DAILY [facility] Last Admin: 01/02/17 10:57 Dose: Not Given Quetiapine Fumarate (Seroquel) 50 mg PO AMHS [facility] PRN Reason: Protocol Last Admin: 01/02/17 10:45 Dose: 50 mg Spironolactone (Aldactone) 50 mg PO BID [facility] Last Admin: 01/02/17 10:46 Dose: 50 mg Torsemide (Demadex) 30 mg PO Q12H [facility] Last Admin: 01/02/17 11:23 Dose: 30 mg Tramadol HCl (Ultram) 50 mg PO Q8 PRN PRN Reason: Pain, moderate (4-7) Last Admin: 01/02/17 06:41 Dose: 50 mg - Labs Labs: 01/02/17 06:00 01/02/17 06:00 PT 11.9 Seconds (9.9-11.8) H 12/13/16 16:30 INR 1.10 (0.93-1.08) H 12/13/16 16:30 APTT 27.1 Seconds (23.7-30.8) 12/13/16 16:30 Attending/Attestation - Attestation I have personally seen and examined this patient.: Yes I have fully participated in the care of the patient.: Yes I have reviewed all pertinent clinical information, including history, physical exam and plan: Yes Notes (Text): I have seen and examined patient at bedside with the resident. Agree with the note above with the following additions/ exceptions: Briefly this is 51 year old female with history of DM-2, CHF (EF~30%), HTN, NICMP, chronic pleural effusion, 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 Leg edema has improved remarkably. Torsemide was increased today. Continue aldactone. IV lasix on hold. Discussed with cake knocker and paraeducator. Continue Lopressor, Cozaar, Aldactone. Continue levemir for DM-2. Patient is refusing to go back to shelter. PT is recommending [facility] vs [facility]. assistant merchandise manager is in contact with sister in law to make disposition arrangements. Patient will follow up with PMD Dr. valdez upon discharge. Dr Annmarie Amador
--- NOTE | 2017-01-02 21:32 | CP.PCM.PN ---
Objective - Vital Signs/Intake and Output Vital Signs (last 24 hours): Temp Pulse Resp BP Pulse Ox 98 F 98 H 20 115/65 94 L 01/02/17 11:36 01/02/17 18:06 01/02/17 11:36 01/02/17 18:06 01/01/17 06:00 Intake and Output: 01/02/17 01/03/17 18:59 06:59 Intake Total 360 Output Total 800 Balance -440 - Medications Medications: Current Medications Apixaban (Eliquis) 5 mg PO BID [facility] PRN Reason: Protocol Last Admin: 01/02/17 18:06 Dose: 5 mg Clonazepam (Klonopin) 0.5 mg PO DAILY [facility] PRN Reason: Protocol Last Admin: 01/02/17 10:45 Dose: 0.5 mg Digoxin (Lanoxin) 0.125 mg PO 1400 [facility] Last Admin: 01/02/17 14:47 Dose: 0.125 mg Ferrous Sulfate (Feosol) 324 mg PO DAILY [facility] Last Admin: 01/02/17 10:47 Dose: 324 mg Furosemide (Lasix) 20 mg IVP Q8 [facility] Last Admin: 01/01/17 05:33 Dose: Not Given Gabapentin (Neurontin) 100 mg PO BID [facility] PRN Reason: Protocol Last Admin: 01/02/17 18:09 Dose: 100 mg Insulin Detemir (Levemir) 25 unit SC HS [facility] Last Admin: 01/01/17 21:53 Dose: 25 unit Insulin Human Lispro (Humalog Low) 0 units SC ACHS [facility] PRN Reason: Protocol Last Admin: 01/02/17 16:44 Dose: 2 units Levothyroxine Sodium (Synthroid) 125 mcg PO DAILY [facility] Last Admin: 01/02/17 10:47 Dose: 125 mcg Losartan Potassium (Cozaar) 12.5 mg PO DAILY [facility] Last Admin: 01/02/17 10:46 Dose: 12.5 mg Metoprolol Tartrate (Lopressor) 12.5 mg PO BID [facility] Last Admin: 01/02/17 18:06 Dose: 12.5 mg Ondansetron HCl (Zofran Inj) 4 mg IVP Q4H PRN PRN Reason: Nausea/Vomiting Last Admin: 01/02/17 10:05 Dose: 4 mg Pantoprazole Sodium (Protonix Ec Tab) 40 mg PO 0600 [facility] Last Admin: 01/02/17 06:40 Dose: 40 mg Polysaccharide Iron Complex (Ferrex-150) 150 mg PO DAILY [facility] Last Admin: 01/02/17 10:57 Dose: Not Given Quetiapine Fumarate (Seroquel) 50 mg PO AMHS [facility] PRN Reason: Protocol Last Admin: 01/02/17 10:45 Dose: 50 mg Spironolactone (Aldactone) 50 mg PO BID [facility] Last Admin: 01/02/17 17:59 Dose: 50 mg Torsemide (Demadex) 30 mg PO Q12H [facility] Last Admin: 01/02/17 11:23 Dose: 30 mg Tramadol HCl (Ultram) 50 mg PO Q8 PRN PRN Reason: Pain, moderate (4-7) Last Admin: 01/02/17 06:41 Dose: 50 mg - Labs Labs: 01/02/17 06:00 01/02/17 06:00 PT 11.9 Seconds (9.9-11.8) H 12/13/16 16:30 INR 1.10 (0.93-1.08) H 12/13/16 16:30 APTT 27.1 Seconds (23.7-30.8) 12/13/16 16:30 Assessment and Plan (1) CHF exacerbation Status: Acute (2) Pleural effusion Status: Acute (3) Hyponatremia Status: Acute (4) Hyperglycemia Status: Resolved (5) Prerenal azotemia Status: Acute (6) Metabolic alkalosis Status: Acute
[2017-01-02] MEDS: Insulin Detemir 100 units/ml Vial (Levemir) SC SCH (21:53)
[2017-01-03] MEDS: Pantoprazole 40 mg EC Tab PO SCH (06:24)
[2017-01-03] MEDS: Insulin Lispro (humaLOG) LOW Coverage SC SCH ×4 (08:32→22:08)
[2017-01-03] MEDS: Iron Complex Polysacch 150mg Cap PO SCH (10:57)
[2017-01-03] MEDS: Levothyroxine 125 MCG TAB PO SCH (11:02)
[2017-01-03] MEDS: Digoxin 125 mcg (0.125 mg) Tab PO SCH (13:02)
[2017-01-03 14:57] LABS: ALB/GLOB RATIO 1.1 (1.1-1.8); BILIRUBIN,TOTAL 0.4 mg/dL (0.2-1.3); CALCIUM 8.6 mg/dL (8.4-10.5); MAGNESIUM 1.9 mg/dL (1.7-2.2); PHOSPHOROUS 4.5 mg/dL (2.5-4.5); POTASSIUM 5.1 mmol/L (3.6-5.0); TOTAL PROTEIN 6.4 g/dL (5.8-8.3)
--- NOTE | 2017-01-03 15:49 | CP.PCM.PN ---
<Gin Pires - Last Filed: 01/03/17 15:53> Subjective - Date & Time of Evaluation Date of Evaluation: 01/03/17 Time of Evaluation: 07:20 - Subjective Subjective: Hospitalist Service Progress Note: Patient seen and examined at bedside. Per nursing no acute events overnight. Patient is doing well, reports that LE swelling and pain is improving. Able to move her extremities more compared to when she was initially admitted. Tolerating diet, oob to chair. Offers no complaints at this time. Denies nausea , vomiting, headaches, dizziness, cp, palpitations, sob, urinary symptoms, changes in bowel habit. Objective - Vital Signs/Intake and Output Vital Signs (last 24 hours): Temp Pulse Resp BP Pulse Ox 98.5 F 89 20 113/74 97 01/03/17 12:00 01/03/17 14:00 01/03/17 12:00 01/03/17 12:00 01/03/17 06:00 Intake and Output: 01/03/17 01/03/17 06:59 18:59 Intake Total 120 420 Output Total 0 600 Balance 120 -180 - Medications Medications: Current Medications Apixaban (Eliquis) 5 mg PO BID [facility] PRN Reason: Protocol Last Admin: 01/03/17 10:56 Dose: 5 mg Clonazepam (Klonopin) 0.5 mg PO DAILY [facility] PRN Reason: Protocol Last Admin: 01/03/17 10:57 Dose: 0.5 mg Digoxin (Lanoxin) 0.125 mg PO 1400 [facility] Last Admin: 01/03/17 13:02 Dose: 0.125 mg Ferrous Sulfate (Feosol) 324 mg PO DAILY [facility] Last Admin: 01/03/17 10:57 Dose: 324 mg Furosemide (Lasix) 20 mg IVP Q8 [facility] Last Admin: 01/01/17 05:33 Dose: Not Given Gabapentin (Neurontin) 100 mg PO BID [facility] PRN Reason: Protocol Last Admin: 01/03/17 11:01 Dose: 100 mg Insulin Detemir (Levemir) 25 unit SC HS [facility] Last Admin: 01/02/17 21:53 Dose: 25 unit Insulin Human Lispro (Humalog Low) 0 units SC ACHS [facility] PRN Reason: Protocol Last Admin: 01/03/17 12:04 Dose: Not Given Levothyroxine Sodium (Synthroid) 125 mcg PO DAILY [facility] Last Admin: 01/03/17 11:02 Dose: 125 mcg Losartan Potassium (Cozaar) 12.5 mg PO DAILY [facility] Last Admin: 01/03/17 10:56 Dose: 12.5 mg Metoprolol Tartrate (Lopressor) 12.5 mg PO BID [facility] Last Admin: 01/03/17 10:58 Dose: 12.5 mg Ondansetron HCl (Zofran Inj) 4 mg IVP Q4H PRN PRN Reason: Nausea/Vomiting Last Admin: 01/02/17 10:05 Dose: 4 mg Pantoprazole Sodium (Protonix Ec Tab) 40 mg PO 0600 [facility] Last Admin: 01/03/17 06:24 Dose: 40 mg Polysaccharide Iron Complex (Ferrex-150) 150 mg PO DAILY [facility] Last Admin: 01/03/17 10:57 Dose: 150 mg Quetiapine Fumarate (Seroquel) 50 mg PO AMHS [facility] PRN Reason: Protocol Last Admin: 01/03/17 11:01 Dose: 50 mg Spironolactone (Aldactone) 50 mg PO BID [facility] Last Admin: 01/03/17 10:54 Dose: 50 mg Torsemide (Demadex) 30 mg PO Q12H [facility] Last Admin: 01/03/17 10:56 Dose: 30 mg Tramadol HCl (Ultram) 50 mg PO Q8 PRN PRN Reason: Pain, moderate (4-7) Last Admin: 01/02/17 06:41 Dose: 50 mg - Labs Labs: 01/02/17 06:00 01/03/17 14:30 PT 11.9 Seconds (9.9-11.8) H 12/13/16 16:30 INR 1.10 (0.93-1.08) H 12/13/16 16:30 APTT 27.1 Seconds (23.7-30.8) 12/13/16 16:30 - Constitutional Appears: Non-toxic, No Acute Distress - Head Exam Head Exam: ATRAUMATIC, NORMAL INSPECTION - Eye Exam Eye Exam: EOMI, Normal appearance Pupil Exam: NORMAL ACCOMODATION - ENT Exam ENT Exam: Mucous Membranes Moist - Neck Exam Neck Exam: Full ROM - Respiratory Exam Respiratory Exam: Decreased Breath Sounds, NORMAL BREATHING PATTERN. absent: Rales, Rhonchi, Wheezes - Cardiovascular Exam Cardiovascular Exam: REGULAR RHYTHM, +S1, +S2 - GI/Abdominal Exam GI & Abdominal Exam: Distended, Soft. absent: Guarding, Rigid, Tenderness - Extremities Exam Extremities Exam: absent: Calf Tenderness Additional comments: +2 LE pitting edema B/L - Back Exam Back Exam: NORMAL INSPECTION - Neurological Exam Neurological Exam: Alert, Awake, Oriented x3 - Psychiatric Exam Psychiatric exam: Normal Affect, Normal Mood - Skin Skin Exam: Normal Color, Warm Assessment and Plan - Assessment and Plan (Free Text) Assessment: 51 y/o F with PMH of DM2, CHF with EF of 30%, HTN, non-ischemic cardiomyopathy, chronic pleural effusion, DVT, Recurrent PE on Eliquis, hypothyroidism, and schizophrenia was admitted with acute on chronic systolic heart failure exacerbation with LE edema and superimposed lower extremity cellulitis. Patient has completed 7 days of IV Cefazolin and has no fever or leukocytosis. Patient' s LE edema/pain has much improved since the addition of Dobutamine. Patient is OOB to chair with LE elevated. Patient states she is amenable to physical therapy. Patient re-started on low-dose antipsychotics for worsening agitation and for underlying affective disorder. 12/28/16 patient complained of chest pain , stat EKG and troponin negative for ACS. 12/29/16 patient's dobutamine drip was discontinued. Patient was OOB and walking today. Physical therapy to see patient on Monday and will be cleared medically for discharge. Plan: 1. Acute on Chronic CHF exacerbation - EF approx 30% - Clinically improving - Continue Toresamide, Spirinolactone - Lasix held - Continue Losartan - Continue Leg elevation - OOB and walking with assistance - Cardiology on consult, f/u recommendations - Patient is refusing to go back to long-term. PT is recommending [facility] vs [facility]. - Will need psych clearance 2. B/L LE cellulitis -Continue diuresis -Pain control prn - Ultram 3. Diabetes Mellitus - Levemir 25 U HS - ISS low-dose and accuchecks - Neurontin 100 mg BID for diabetic neuropathy 3. Atrial Fibrillation, rate controlled - Eliquis 5 mg BID - Metropolol 12.5 BID - Continue Digoxin 4. Hyponatremia - Sodium 130 today, will continue to monitor - Continue fluid restriction - Nephrology on consult, f/u recommendations 5. Hyperkalemia -Potassium 5.1 today, will continue to monitor 6. Hypothyroidism - Synthroid 125 mcg daily 7. Schizophrenia and labile mood - Seroquel 50 mg HS - Psychiatry, Dr. Polanco consulted, appreciate recommendations. GI/DVT prophylaxis: - Protonix 40 mg PO daily - Eliquis 5mg BID <Annmarie Amador - Last Filed: 01/03/17 16:47> Objective - Vital Signs/Intake and Output Vital Signs (last 24 hours): Temp Pulse Resp BP Pulse Ox 98.5 F 89 20 113/74 97 01/03/17 12:00 01/03/17 14:00 01/03/17 12:00 01/03/17 12:00 01/03/17 06:00 Intake and Output: 01/03/17 01/03/17 06:59 18:59 Intake Total 120 420 Output Total 0 600 Balance 120 -180 - Medications Medications: Current Medications Apixaban (Eliquis) 5 mg PO BID [facility] PRN Reason: Protocol Last Admin: 01/03/17 10:56 Dose: 5 mg Clonazepam (Klonopin) 0.5 mg PO DAILY [facility] PRN Reason: Protocol Last Admin: 01/03/17 10:57 Dose: 0.5 mg Digoxin (Lanoxin) 0.125 mg PO 1400 [facility] Last Admin: 01/03/17 13:02 Dose: 0.125 mg Ferrous Sulfate (Feosol) 324 mg PO DAILY [facility] Last Admin: 01/03/17 10:57 Dose: 324 mg Furosemide (Lasix) 20 mg IVP Q8 [facility] Last Admin: 01/01/17 05:33 Dose: Not Given Gabapentin (Neurontin) 100 mg PO BID [facility] PRN Reason: Protocol Last Admin: 01/03/17 11:01 Dose: 100 mg Insulin Detemir (Levemir) 25 unit SC HS [facility] Last Admin: 01/02/17 21:53 Dose: 25 unit Insulin Human Lispro (Humalog Low) 0 units SC ACHS [facility] PRN Reason: Protocol Last Admin: 01/03/17 12:04 Dose: Not Given Levothyroxine Sodium (Synthroid) 125 mcg PO DAILY [facility] Last Admin: 01/03/17 11:02 Dose: 125 mcg Losartan Potassium (Cozaar) 12.5 mg PO DAILY [facility] Last Admin: 01/03/17 10:56 Dose: 12.5 mg Metoprolol Tartrate (Lopressor) 12.5 mg PO BID [facility] Last Admin: 01/03/17 10:58 Dose: 12.5 mg Ondansetron HCl (Zofran Inj) 4 mg IVP Q4H PRN PRN Reason: Nausea/Vomiting Last Admin: 01/02/17 10:05 Dose: 4 mg Pantoprazole Sodium (Protonix Ec Tab) 40 mg PO 0600 [facility] Last Admin: 01/03/17 06:24 Dose: 40 mg Polysaccharide Iron Complex (Ferrex-150) 150 mg PO DAILY [facility] Last Admin: 01/03/17 10:57 Dose: 150 mg Quetiapine Fumarate (Seroquel) 50 mg PO AMHS [facility] PRN Reason: Protocol Last Admin: 01/03/17 11:01 Dose: 50 mg Spironolactone (Aldactone) 50 mg PO BID [facility] Last Admin: 01/03/17 10:54 Dose: 50 mg Torsemide (Demadex) 30 mg PO Q12H [facility] Last Admin: 01/03/17 10:56 Dose: 30 mg Tramadol HCl (Ultram) 50 mg PO Q8 PRN PRN Reason: Pain, moderate (4-7) Last Admin: 01/02/17 06:41 Dose: 50 mg - Labs Labs: 01/02/17 06:00 01/03/17 14:30 PT 11.9 Seconds (9.9-11.8) H 12/13/16 16:30 INR 1.10 (0.93-1.08) H 12/13/16 16:30 APTT 27.1 Seconds (23.7-30.8) 12/13/16 16:30 Attending/Attestation - Attestation I have personally seen and examined this patient.: Yes I have fully participated in the care of the patient.: Yes I have reviewed all pertinent clinical information, including history, physical exam and plan: Yes Notes (Text): I have seen and examined patient at bedside with the resident. Agree with the note above with the following additions/ exceptions: Briefly this is 51 year old female with history of DM-2, CHF (EF~30%), HTN, NICMP, chronic pleural effusion, 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 Leg edema has improved remarkably. Continue Torsemide and aldactone. IV lasix on hold. Discussed with activity therapy teacher and kapok and cotton machine operator. Continue Lopressor and Cozaar. Continue levemir for DM-2. Patient is refusing to go back to long-term. PT is recommending [facility] vs [facility]. manager customer service is in contact with sister in law to make disposition arrangements. Patient needs psychiatrist re evaluation to make a disposition plan. Patient will follow up with PMD Dr. valdez upon discharge. Dr Annmarie Amador
--- NOTE | 2017-01-03 20:08 | PN ---
DATE: SUBJECTIVE: The patient is mildly short of breath. She denies any chest pain or palpitation. PHYSICAL EXAMINATION VITAL SIGNS: Blood pressure 117/74, heart rate is 113, temperature 98.5, respirations 20. HEENT: Normocephalic. HEART: S1 and S2 regular. CHEST: Absent breath sounds over the bases. EXTREMITIES: Show bilateral leg cellulitis. LABORATORY DATA: Hemoglobin and hematocrit 12.9 and 39.3, white count 11.3, platelet count 449,000. SMA-7, sodium 138, potassium 5.1, chloride 92, CO2 of 27, glucose 147, BUN 61, creatinine 1.2. ASSESSMENT: 1. Dilated cardiomyopathy. 2. Prerenal azotemia. 3. Hyponatremia. 4. Mild hyperkalemia. 5. Right subclavian deep venous thrombosis. CONDITIONS: Continue Lopressor 12.5 mg twice a day, Lanoxin 0.125 mg daily, Lasix 20 mg intravenously q. 8 hours, Imitrex 50 mg q. 12 hours, discontinue Aldactone, obtain BNP in a.m. Cesar Kinney MD
[2017-01-03] MEDS: Insulin Detemir 100 units/ml Vial (Levemir) SC SCH (22:07)
--- NOTE | 2017-01-03 23:58 | CP.PCM.PN ---
Subjective - Date & Time of Evaluation Date of Evaluation: 01/03/17 Time of Evaluation: 12:00 - Subjective Subjective: Patient out of bed, tolerated ambulation yesterday; Objective - Vital Signs/Intake and Output Vital Signs (last 24 hours): Temp Pulse Resp BP Pulse Ox 98.5 F 90 20 113/74 97 01/03/17 12:00 01/03/17 22:00 01/03/17 12:00 01/03/17 12:00 01/03/17 06:00 Intake and Output: 01/03/17 01/04/17 18:59 06:59 Intake Total 420 Output Total 600 Balance -180 - Medications Medications: Current Medications Apixaban (Eliquis) 5 mg PO BID REPLACED BY [facility] PRN Reason: Protocol Last Admin: 01/03/17 17:28 Dose: 5 mg Clonazepam (Klonopin) 0.5 mg PO DAILY [facility] PRN Reason: Protocol Last Admin: 01/03/17 10:57 Dose: 0.5 mg Digoxin (Lanoxin) 0.125 mg PO 1400 REPLACED BY [facility] Last Admin: 01/03/17 13:02 Dose: 0.125 mg Ferrous Sulfate (Feosol) 324 mg PO DAILY REPLACED BY [facility] Last Admin: 01/03/17 10:57 Dose: 324 mg Furosemide (Lasix) 20 mg IVP Q8 REPLACED BY [facility] Last Admin: 01/01/17 05:33 Dose: Not Given Gabapentin (Neurontin) 100 mg PO BID REPLACED BY [facility] PRN Reason: Protocol Last Admin: 01/03/17 17:30 Dose: 100 mg Insulin Detemir (Levemir) 25 unit SC HS REPLACED BY [facility] Last Admin: 01/03/17 22:07 Dose: 25 unit Insulin Human Lispro (Humalog Low) 0 units SC ACHS REPLACED BY [facility] PRN Reason: Protocol Last Admin: 01/03/17 22:08 Dose: 1 units Levothyroxine Sodium (Synthroid) 125 mcg PO DAILY REPLACED BY [facility] Last Admin: 01/03/17 11:02 Dose: 125 mcg Losartan Potassium (Cozaar) 12.5 mg PO DAILY REPLACED BY [facility] Last Admin: 01/03/17 10:56 Dose: 12.5 mg Metoprolol Tartrate (Lopressor) 12.5 mg PO BID REPLACED BY [facility] Last Admin: 01/03/17 17:29 Dose: 12.5 mg Ondansetron HCl (Zofran Inj) 4 mg IVP Q4H PRN PRN Reason: Nausea/Vomiting Last Admin: 01/02/17 10:05 Dose: 4 mg Pantoprazole Sodium (Protonix Ec Tab) 40 mg PO 0600 REPLACED BY [facility] Last Admin: 01/03/17 06:24 Dose: 40 mg Polysaccharide Iron Complex (Ferrex-150) 150 mg PO DAILY REPLACED BY [facility] Last Admin: 01/03/17 10:57 Dose: 150 mg Quetiapine Fumarate (Seroquel) 50 mg PO AMHS REPLACED BY [facility] PRN Reason: Protocol Last Admin: 01/03/17 22:06 Dose: 50 mg Torsemide (Demadex) 30 mg PO Q12H REPLACED BY [facility] Last Admin: 01/03/17 22:06 Dose: 30 mg Tramadol HCl (Ultram) 50 mg PO Q8 PRN PRN Reason: Pain, moderate (4-7) Last Admin: 01/02/17 06:41 Dose: 50 mg - Labs Labs: 01/02/17 06:00 01/03/17 14:30 PT 11.9 Seconds (9.9-11.8) H 12/13/16 16:30 INR 1.10 (0.93-1.08) H 12/13/16 16:30 APTT 27.1 Seconds (23.7-30.8) 12/13/16 16:30 - Constitutional Appears: No Acute Distress - Head Exam Head Exam: NORMAL INSPECTION - Eye Exam Eye Exam: Normal appearance - ENT Exam ENT Exam: Mucous Membranes Moist - Respiratory Exam Respiratory Exam: absent: Respiratory Distress Additional comments: decreased basal breath sounds; - Cardiovascular Exam Cardiovascular Exam: RRR. absent: Gallop - GI/Abdominal Exam GI & Abdominal Exam: Soft. absent: Tenderness - Extremities Exam Additional comments: markedly edematous legs - Neurological Exam Neurological Exam: Alert, Awake - Psychiatric Exam Psychiatric exam: Normal Affect, Normal Mood - Skin Skin Exam: Warm. absent: Cyanosis Assessment and Plan (1) CHF exacerbation Assessment & Plan: Severely systolic CHF, tolerating a high level of volume overload; renal function worsened today, question of whether this represents over-diuresis or acute decompensation, likely the latter; -continue PO torsemide, B-blockers and losartan -will restart IV lasix Status: Acute (2) Pleural effusion Status: Acute (3) Hyponatremia Status: Acute (4) Hyperglycemia Status: Resolved (5) Prerenal azotemia Status: Acute (6) Metabolic alkalosis Status: Acute
[2017-01-04] MEDS: Insulin Lispro (humaLOG) LOW Coverage SC SCH ×4 (08:07→22:07)
[2017-01-04] MEDS: Pantoprazole 40 mg EC Tab PO SCH (08:25)
[2017-01-04 08:53] LABS: ALB/GLOB RATIO 1.1 (1.1-1.8); BASO # 0.08 K/mm3 (0.0-2.0); BASO % 0.7 % (0.0-3.0); BILIRUBIN,TOTAL 0.5 mg/dL (0.2-1.3); CALCIUM 9.3 mg/dL (8.4-10.5); EOS # 0.3 (0.0-0.7); EOS % 2.5 % (1.5-5.0); GRAN # 7.41 (1.4-6.5); GRAN % 60.5 % (50.0-68.0); HEMATOCRIT 39.4 % (36.0-48.0); LYMPH # 3.6 (1.2-3.4); LYMPH % 29.1 % (22.0-35.0); MAGNESIUM 1.9 mg/dL (1.7-2.2); MEAN CELL VOLUME 84.4 fl (80.0-105.0); MEAN CORPUSCULAR HEMOGLOBIN 28.3 pg (25.0-35.0); MEAN CORPUSCULAR HGB CONC 33.5 g/dl (31.0-37.0); MEAN PLATELET VOLUME 10.1 fl (7.0-11.0); MONO # 0.9 (0.1-0.6); MONO % 7.2 % (1.0-6.0); PHOSPHOROUS 4.3 mg/dL (2.5-4.5); POTASSIUM 4.8 mmol/L (3.6-5.0); RED CELL DISTRIBUTION WIDTH 18.1 % (11.5-14.5); WHITE BLOOD COUNT 12.2 10^3/ul (4.5-11.0)
[2017-01-04] MEDS: Levothyroxine 125 MCG TAB PO SCH (09:08)
[2017-01-04] MEDS: Iron Complex Polysacch 150mg Cap PO SCH (09:35)
--- NOTE | 2017-01-04 12:24 | PN ---
SUBJECTIVE: The patient feels comfortable today. PHYSICAL EXAMINATION: VITAL SIGNS: Blood pressure 106/60, heart rate 104, temperature 97.4, respiration 20. HEENT: Normocephalic. CHEST: Absent breath sounds over the bases. HEART: S1 and S2 regular. EXTREMITIES: 2+ pitting edema. LABORATORY DATA: Today's hemoglobin and hematocrit are 13.2 and 39.4; white count 12.2; platelet count 453,000. Today's BUN and creatinine are 55 and 1.4, slightly elevated compared to yesterday. Sodium has improved to 134, magnesium is 1.9. ASSESSMENT: 1. Cardiomyopathy. 2. Improving hyponatremia. 3. Prerenal azotemia. 4. Bilateral leg cellulitis. 5. Hypothyroidism. RECOMMENDATION: Case was discussed with Dr. French, the educational institution president. The patient can be taken off either loop diuretic, antiemetics or Lasix and be maintained on Cozaar 12.5 mg once a day, digoxin 0.125 mg daily, Lopressor 12.5 mg twice a day, Synthroid 125 mcg once a day. Obtain repeat digoxin level. Cesar Kinney MD
--- NOTE | 2017-01-04 15:15 | CP.PCM.PN ---
<Gin Pires - Last Filed: 01/04/17 15:21> Subjective - Date & Time of Evaluation Date of Evaluation: 01/04/17 Time of Evaluation: 07:40 - Subjective Subjective: Hospitalist Service Progress Note: Patient seen and examined at bedside. Per nursing no acute events overnight. Patient is sitting in chair, doing well. Offers no complaints at this time. LE pain and swelling improving. Tolerating diet. Denies headaches, dizziness, cp, palpitations, sob, urinary symptoms. Objective - Vital Signs/Intake and Output Vital Signs (last 24 hours): Temp Pulse Resp BP Pulse Ox 97.9 F 90 20 90/60 L 95 01/04/17 12:00 01/04/17 12:00 01/04/17 12:00 01/04/17 14:20 01/04/17 06:00 Intake and Output: 01/04/17 01/04/17 06:59 18:59 Intake Total 120 780 Output Total 250 200 Balance -130 580 - Medications Medications: Current Medications Apixaban (Eliquis) 5 mg PO BID [facility] PRN Reason: Protocol Last Admin: 01/04/17 09:08 Dose: 5 mg Clonazepam (Klonopin) 0.5 mg PO DAILY [facility] PRN Reason: Protocol Last Admin: 01/04/17 09:08 Dose: 0.5 mg Digoxin (Lanoxin) 0.125 mg PO 1400 [facility] Last Admin: 01/03/17 13:02 Dose: 0.125 mg Ferrous Sulfate (Feosol) 324 mg PO DAILY [facility] Last Admin: 01/04/17 09:09 Dose: 324 mg Furosemide (Lasix) 20 mg IVP Q8 [facility] Last Admin: 01/04/17 14:20 Dose: 20 mg Gabapentin (Neurontin) 100 mg PO BID [facility] PRN Reason: Protocol Last Admin: 01/04/17 09:09 Dose: 100 mg Insulin Detemir (Levemir) 25 unit SC HS [facility] Last Admin: 01/03/17 22:07 Dose: 25 unit Insulin Human Lispro (Humalog Low) 0 units SC ACHS [facility] PRN Reason: Protocol Last Admin: 01/04/17 12:39 Dose: 1 units Levothyroxine Sodium (Synthroid) 125 mcg PO DAILY [facility] Last Admin: 01/04/17 09:08 Dose: 125 mcg Losartan Potassium (Cozaar) 12.5 mg PO DAILY [facility] Last Admin: 01/04/17 09:10 Dose: 12.5 mg Metoprolol Tartrate (Lopressor) 12.5 mg PO BID [facility] Last Admin: 01/04/17 09:10 Dose: 12.5 mg Ondansetron HCl (Zofran Inj) 4 mg IVP Q4H PRN PRN Reason: Nausea/Vomiting Last Admin: 01/02/17 10:05 Dose: 4 mg Pantoprazole Sodium (Protonix Ec Tab) 40 mg PO 0600 [facility] Last Admin: 01/04/17 08:25 Dose: 40 mg Polysaccharide Iron Complex (Ferrex-150) 150 mg PO DAILY [facility] Last Admin: 01/04/17 09:35 Dose: Not Given Quetiapine Fumarate (Seroquel) 50 mg PO AMHS [facility] PRN Reason: Protocol Last Admin: 01/04/17 09:11 Dose: 50 mg Torsemide (Demadex) 30 mg PO Q12H [facility] Last Admin: 01/04/17 09:08 Dose: 30 mg Tramadol HCl (Ultram) 50 mg PO Q8 PRN PRN Reason: Pain, moderate (4-7) Last Admin: 01/02/17 06:41 Dose: 50 mg - Labs Labs: 01/04/17 08:30 01/04/17 08:30 PT 11.9 Seconds (9.9-11.8) H 12/13/16 16:30 INR 1.10 (0.93-1.08) H 12/13/16 16:30 APTT 27.1 Seconds (23.7-30.8) 12/13/16 16:30 - Constitutional Appears: Non-toxic, No Acute Distress - Head Exam Head Exam: ATRAUMATIC, NORMAL INSPECTION - Eye Exam Eye Exam: EOMI, Normal appearance Pupil Exam: NORMAL ACCOMODATION - ENT Exam ENT Exam: Mucous Membranes Moist - Neck Exam Neck Exam: Full ROM - Respiratory Exam Respiratory Exam: Decreased Breath Sounds, NORMAL BREATHING PATTERN. absent: Rales, Rhonchi, Wheezes - Cardiovascular Exam Cardiovascular Exam: Tachycardia, +S1, +S2 - GI/Abdominal Exam GI & Abdominal Exam: Distended, Soft, Normal Bowel Sounds. absent: Firm, Guarding, Rigid - Extremities Exam Extremities Exam: Pedal Edema. absent: Calf Tenderness Additional comments: +2 pitting edema LE B/L Dry skin changes - Neurological Exam Neurological Exam: Alert, Awake, Oriented x3 - Psychiatric Exam Psychiatric exam: Normal Affect, Normal Mood - Skin Skin Exam: Dry, Normal Color, Warm Assessment and Plan - Assessment and Plan (Free Text) Assessment: 51 y/o F with PMH of DM2, CHF with EF of 30%, HTN, non-ischemic cardiomyopathy, chronic pleural effusion, DVT, Recurrent PE on Eliquis, hypothyroidism, and schizophrenia was admitted with acute on chronic systolic heart failure exacerbation with LE edema and superimposed lower extremity cellulitis. Patient has completed 7 days of IV Cefazolin and has no fever or leukocytosis. Patient' s LE edema/pain has much improved since the addition of Dobutamine. Patient is OOB to chair with LE elevated. Patient states she is amenable to physical therapy. Patient re-started on low-dose antipsychotics for worsening agitation and for underlying affective disorder. 12/28/16 patient complained of chest pain , stat EKG and troponin negative for ACS. 12/29/16 patient's dobutamine drip was discontinued. Patient was OOB and walking today. Plan: 1. Acute on Chronic CHF exacerbation - EF approx 30% - Clinically improving - Continue Toresamide - Spirinolactone discontinued as pt becoming hyperkalemic - Lasix 20mg Q8H IV restarted - Continue Losartan - Continue Leg elevation - OOB and walking with assistance - Cardiology on consult, f/u recommendations - Patient now amendable to going to rehab, will follow up with SW - Psych clearance pending 2. B/L LE cellulitis -Continue diuresis -Pain control prn - Ultram 3. Diabetes Mellitus - Levemir 25 U HS - ISS low-dose and accuchecks - Neurontin 100 mg BID for diabetic neuropathy 3. Atrial Fibrillation, rate controlled - Eliquis 5 mg BID - Metropolol 12.5 BID - Continue Digoxin 4. Hyponatremia - Sodium 134 today, will continue to monitor - Continue fluid restriction - Nephrology on consult, f/u recommendations 5. Hyperkalemia -Potassium 4.8 today, -Will continue to monitor 6. Hypothyroidism - Synthroid 125 mcg daily 7. Schizophrenia and labile mood - Seroquel 50 mg HS - Psychiatry, Dr. Polanco consulted, appreciate recommendations. GI/DVT prophylaxis: - Protonix 40 mg PO daily - Eliquis 5mg BID <Amador,Irfana B - Last Filed: 01/04/17 15:56> Objective - Vital Signs/Intake and Output Vital Signs (last 24 hours): Temp Pulse Resp BP Pulse Ox 97.9 F 90 20 90/60 L 95 01/04/17 12:00 01/04/17 12:00 01/04/17 12:00 01/04/17 14:20 01/04/17 06:00 Intake and Output: 01/04/17 01/04/17 06:59 18:59 Intake Total 120 780 Output Total 250 200 Balance -130 580 - Medications Medications: Current Medications Apixaban (Eliquis) 5 mg PO BID [facility] PRN Reason: Protocol Last Admin: 01/04/17 09:08 Dose: 5 mg Clonazepam (Klonopin) 0.5 mg PO DAILY [facility] PRN Reason: Protocol Last Admin: 01/04/17 09:08 Dose: 0.5 mg Digoxin (Lanoxin) 0.125 mg PO 1400 [facility] Last Admin: 01/03/17 13:02 Dose: 0.125 mg Ferrous Sulfate (Feosol) 324 mg PO DAILY [facility] Last Admin: 01/04/17 09:09 Dose: 324 mg Furosemide (Lasix) 20 mg IVP Q8 [facility] Last Admin: 01/04/17 14:20 Dose: 20 mg Gabapentin (Neurontin) 100 mg PO BID [facility] PRN Reason: Protocol Last Admin: 01/04/17 09:09 Dose: 100 mg Insulin Detemir (Levemir) 25 unit SC HS [facility] Last Admin: 01/03/17 22:07 Dose: 25 unit Insulin Human Lispro (Humalog Low) 0 units SC ACHS [facility] PRN Reason: Protocol Last Admin: 01/04/17 12:39 Dose: 1 units Levothyroxine Sodium (Synthroid) 125 mcg PO DAILY [facility] Last Admin: 01/04/17 09:08 Dose: 125 mcg Losartan Potassium (Cozaar) 12.5 mg PO DAILY [facility] Last Admin: 01/04/17 09:10 Dose: 12.5 mg Metoprolol Tartrate (Lopressor) 12.5 mg PO BID [facility] Last Admin: 01/04/17 09:10 Dose: 12.5 mg Ondansetron HCl (Zofran Inj) 4 mg IVP Q4H PRN PRN Reason: Nausea/Vomiting Last Admin: 01/02/17 10:05 Dose: 4 mg Pantoprazole Sodium (Protonix Ec Tab) 40 mg PO 0600 [facility] Last Admin: 01/04/17 08:25 Dose: 40 mg Polysaccharide Iron Complex (Ferrex-150) 150 mg PO DAILY [facility] Last Admin: 01/04/17 09:35 Dose: Not Given Quetiapine Fumarate (Seroquel) 50 mg PO AMHS [facility] PRN Reason: Protocol Last Admin: 01/04/17 09:11 Dose: 50 mg Torsemide (Demadex) 30 mg PO Q12H [facility] Last Admin: 01/04/17 09:08 Dose: 30 mg Tramadol HCl (Ultram) 50 mg PO Q8 PRN PRN Reason: Pain, moderate (4-7) Last Admin: 01/02/17 06:41 Dose: 50 mg - Labs Labs: 01/04/17 08:30 01/04/17 08:30 PT 11.9 Seconds (9.9-11.8) H 12/13/16 16:30 INR 1.10 (0.93-1.08) H 12/13/16 16:30 APTT 27.1 Seconds (23.7-30.8) 12/13/16 16:30 Attending/Attestation - Attestation I have personally seen and examined this patient.: Yes I have fully participated in the care of the patient.: Yes I have reviewed all pertinent clinical information, including history, physical exam and plan: Yes Notes (Text): I have seen and examined patient at bedside with the resident. Agree with the note above with the following additions/ exceptions: Briefly this is 51 year old female with history of DM-2, CHF (EF~30%), HTN, NICMP, chronic pleural effusion, 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 Leg edema has improved since admission. Aldactone was held secondary to hyperkalemia. Continue Torsemide. Lasix was restarted. Discussed with pavilion cutter and audiovisual technician. Continue Lopressor and Cozaar. Continue levemir for DM-2. Patient is refusing to go back to [facility]. PT is recommending [facility] vs [facility]. manager discovery is in contact with sister in law to make disposition arrangements. Patient needs psychiatrist re evaluation to make a disposition plan. Patient will follow up with PMD Dr. valdez upon discharge. Dr Annmarie Amador
[2017-01-04] MEDS: Digoxin 125 mcg (0.125 mg) Tab PO SCH (16:40)
--- NOTE | 2017-01-04 17:59 | PN ---
FOLLOWUP NOTE SUBJECTIVE: Medical team requested followup for this patient for evaluation of mental status. From the collateral information from Dr. Amador, the patient is compliant with the medication, improved very much. So at the present moment medical team is looking for subacute rehab for this patient. The patient was making more rational decisions, is aware what is going on with her from the medical standpoint much calmer. The patient was seen today at the morning time. The patient presented to be sleepy, easily arousable, pleasant, less irritable, intense eye contact. The patient said that she feels "much better". The patient is aware that medications were adjusted as well as she had completed the course of antibiotics. The patient said that she is not depressed. She has future plans to continue feeling better. The patient reported that she is willing to go to subacute rehab but it has to be closer to her family. The patient denied hearing voices, denied seeing things, denied paranoid ideations. The patient does not present to be psychotic. This screen writer reviewed vital signs seems to be stable. Temperature 97.9, pulse is 90, blood pressure 90/60, respiration 20. MEDICATIONS: Reviewed. The patient is on Klonopin 0.5 mg daily, Lasix, Neurontin, Levemir, Humalog, Zofran, Protonix, Ferrex, Seroquel was given 50 mg twice a day, Ultram 50 mg q. 8 hours p.r.n. as needed for pain. LABORATORY DATA: Labs reviewed. The patient still has mild leukocytosis. Chemistry also reviewed, seems to be better. Collateral from the nursing staff, the patient is much calmer, less irritable, compliant with the medications and unit rules and regulations. No behavioral incidents. MENTAL STATUS EXAMINATION: The patient presented to be sleepy but easily arousable, remembered this screen writer by name, intermittent eye contact. Speech was minimal, yes or no answers. Affect was constricted but reactive to mood congruent. Thought process seems to be concrete. Thought content: The patient denied visual, auditory or tactile hallucinations. Denied paranoid ideation. The patient denied thoughts of harming herself or others. Denied intent or plan. Insight and judgement are improving. Impulses are well-controlled. IMPRESSION: Most likely, the patient was in delirium stage, which is related to the multiple medical complications. Meanwhile right now, the patient present much better. The patient most likely has history of paranoid personality disorder. The patient does not have history of suicidal attempts. PLAN: Continue current management. Continue Seroquel 50 mg twice a day. Continue Klonopin. This screen writer will sign off. Should you have any questions, give me a call back. The patient improved very much, has better understanding. Her medical issues as well as making more rational decisions, also was able indicate her preferences. Thank you very much for letting me to participate in the care of your patient. The patient deemed not be in danger to self or others. Should you have any questions, give me a call back. Sherri Castaneda MD
[2017-01-04] MEDS: Insulin Detemir 100 units/ml Vial (Levemir) SC SCH (22:07)
--- NOTE | 2017-01-05 03:50 | CP.PCM.PN ---
Subjective - Date & Time of Evaluation Date of Evaluation: 01/04/17 Time of Evaluation: 12:00 - Subjective Subjective: Patient out of bed to chair today; tolerating diet; says she's urinating well, denies urination has decreased; Objective - Vital Signs/Intake and Output Vital Signs (last 24 hours): Temp Pulse Resp BP Pulse Ox 97.0 F L 103 H 19 96/56 L 96 01/05/17 00:01 01/05/17 02:00 01/05/17 00:01 01/05/17 00:01 01/05/17 00:01 Intake and Output: 01/04/17 01/05/17 18:59 06:59 Intake Total 780 Output Total 200 Balance 580 - Medications Medications: Current Medications Apixaban (Eliquis) 5 mg PO BID [facility] PRN Reason: Protocol Last Admin: 01/04/17 18:09 Dose: 5 mg Clonazepam (Klonopin) 0.5 mg PO DAILY [facility] PRN Reason: Protocol Last Admin: 01/04/17 09:08 Dose: 0.5 mg Digoxin (Lanoxin) 0.125 mg PO 1400 [facility] Last Admin: 01/04/17 16:40 Dose: 0.125 mg Ferrous Sulfate (Feosol) 324 mg PO DAILY [facility] Last Admin: 01/04/17 09:09 Dose: 324 mg Furosemide (Lasix) 20 mg IVP Q6H [facility] Last Admin: 01/05/17 01:38 Dose: Not Given Gabapentin (Neurontin) 100 mg PO BID [facility] PRN Reason: Protocol Last Admin: 01/04/17 18:10 Dose: 100 mg Insulin Detemir (Levemir) 25 unit SC HS [facility] Last Admin: 01/04/17 22:07 Dose: 25 unit Insulin Human Lispro (Humalog Low) 0 units SC ACHS [facility] PRN Reason: Protocol Last Admin: 01/04/17 22:07 Dose: Not Given Levothyroxine Sodium (Synthroid) 125 mcg PO DAILY [facility] Last Admin: 01/04/17 09:08 Dose: 125 mcg Losartan Potassium (Cozaar) 12.5 mg PO DAILY [facility] Last Admin: 01/04/17 09:10 Dose: 12.5 mg Metoprolol Tartrate (Lopressor) 12.5 mg PO BID [facility] Last Admin: 01/04/17 18:10 Dose: 12.5 mg Ondansetron HCl (Zofran Inj) 4 mg IVP Q4H PRN PRN Reason: Nausea/Vomiting Last Admin: 01/02/17 10:05 Dose: 4 mg Pantoprazole Sodium (Protonix Ec Tab) 40 mg PO 0600 [facility] Last Admin: 01/04/17 08:25 Dose: 40 mg Polysaccharide Iron Complex (Ferrex-150) 150 mg PO DAILY [facility] Last Admin: 01/04/17 09:35 Dose: Not Given Quetiapine Fumarate (Seroquel) 50 mg PO AMHS [facility] PRN Reason: Protocol Last Admin: 01/04/17 22:05 Dose: 50 mg Torsemide (Demadex) 30 mg PO Q12H [facility] Last Admin: 01/05/17 01:37 Dose: Not Given Tramadol HCl (Ultram) 50 mg PO Q8 PRN PRN Reason: Pain, moderate (4-7) Last Admin: 01/04/17 18:10 Dose: 50 mg - Labs Labs: 01/04/17 08:30 01/04/17 08:30 PT 11.9 Seconds (9.9-11.8) H 12/13/16 16:30 INR 1.10 (0.93-1.08) H 12/13/16 16:30 APTT 27.1 Seconds (23.7-30.8) 12/13/16 16:30 - Constitutional Appears: Non-toxic, No Acute Distress - Eye Exam Eye Exam: Normal appearance - ENT Exam ENT Exam: Mucous Membranes Moist - Respiratory Exam Additional comments: Decreased breath sounds at bases but improved; - Cardiovascular Exam Cardiovascular Exam: RRR. absent: Gallop - GI/Abdominal Exam GI & Abdominal Exam: Soft. absent: Distended, Tenderness - Extremities Exam Additional comments: markedly edematous legs; - Neurological Exam Neurological Exam: Alert, Awake - Psychiatric Exam Psychiatric exam: Normal Mood - Skin Skin Exam: Normal Color, Warm. absent: Cyanosis Assessment and Plan (1) CHF exacerbation Assessment & Plan: Severely decompensated systolic CHF; with newly worsened renal function over past 2 days, question is whether she is being over-diuresed or is in failure; increase in standing weight by ~7 lbs over past 2 days indicates the latter; will resume IV lasix 20 mg q6h and re-assess; spironolactone discontinued in setting of mild hyperkalemia but in long run is necessary to offset metabolic alkalosis and help optimize cardiac status; continue with B-blockers and ARB per cardio recs (would not hold these unless very hypotensive); Status: Acute (2) Pleural effusion Status: Acute (3) Hyponatremia Assessment & Plan: Stable off tolvaptan, monitor; Status: Acute (4) Hyperglycemia Status: Resolved (5) Prerenal azotemia Status: Acute (6) Metabolic alkalosis Status: Acute
[2017-01-05] MEDS: Pantoprazole 40 mg EC Tab PO SCH (06:20)
[2017-01-05] MEDS: Insulin Lispro (humaLOG) LOW Coverage SC SCH ×3 (07:30→18:11)
[2017-01-05 08:41] LABS: BASO # 0.05 K/mm3 (0.0-2.0); BASO % 0.4 % (0.0-3.0); EOS # 0.3 (0.0-0.7); EOS % 2.6 % (1.5-5.0); GRAN # 7.06 (1.4-6.5); GRAN % 63.4 % (50.0-68.0); HEMATOCRIT 40.3 % (36.0-48.0); LYMPH % 26.7 % (22.0-35.0); MEAN CELL VOLUME 84.5 fl (80.0-105.0); MEAN CORPUSCULAR HEMOGLOBIN 28.5 pg (25.0-35.0); MEAN CORPUSCULAR HGB CONC 33.7 g/dl (31.0-37.0); MEAN PLATELET VOLUME 10.1 fl (7.0-11.0); MONO # 0.8 (0.1-0.6); MONO % 6.9 % (1.0-6.0); RED CELL DISTRIBUTION WIDTH 18.1 % (11.5-14.5); WHITE BLOOD COUNT 11.1 10^3/ul (4.5-11.0)
[2017-01-05 08:53] LABS: ALB/GLOB RATIO 1.2 (1.1-1.8); BILIRUBIN,TOTAL 0.4 mg/dL (0.2-1.3); CALCIUM 9.1 mg/dL (8.4-10.5); PHOSPHOROUS 3.9 mg/dL (2.5-4.5); POTASSIUM 4.5 mmol/L (3.6-5.0); TOTAL PROTEIN 7.1 g/dL (5.8-8.3)
[2017-01-05] MEDS: Iron Complex Polysacch 150mg Cap PO SCH (09:39)
[2017-01-05] MEDS: Levothyroxine 125 MCG TAB PO SCH (09:39)
--- NOTE | 2017-01-05 12:46 | CP.PCM.PN ---
Subjective - Date & Time of Evaluation Date of Evaluation: 01/05/17 Time of Evaluation: 10:15 - Subjective Subjective: Comfortable, afebrile. Objective - Vital Signs/Intake and Output Vital Signs (last 24 hours): Temp Pulse Resp BP Pulse Ox 98.7 F 95 H 20 87/55 L 96 01/05/17 05:42 01/05/17 05:42 01/05/17 05:42 01/05/17 06:20 01/05/17 05:42 Intake and Output: 01/04/17 01/05/17 18:59 06:59 Intake Total 780 240 Output Total 200 400 Balance 580 -160 - Medications Medications: Current Medications Apixaban (Eliquis) 5 mg PO BID [facility] PRN Reason: Protocol Last Admin: 01/04/17 18:09 Dose: 5 mg Clonazepam (Klonopin) 0.5 mg PO DAILY [facility] PRN Reason: Protocol Last Admin: 01/04/17 09:08 Dose: 0.5 mg Digoxin (Lanoxin) 0.125 mg PO 1400 [facility] Last Admin: 01/04/17 16:40 Dose: 0.125 mg Ferrous Sulfate (Feosol) 324 mg PO DAILY [facility] Last Admin: 01/04/17 09:09 Dose: 324 mg Furosemide (Lasix) 20 mg IVP Q6H [facility] Last Admin: 01/05/17 06:20 Dose: Not Given Gabapentin (Neurontin) 100 mg PO BID [facility] PRN Reason: Protocol Last Admin: 01/04/17 18:10 Dose: 100 mg Insulin Detemir (Levemir) 25 unit SC HS [facility] Last Admin: 01/04/17 22:07 Dose: 25 unit Insulin Human Lispro (Humalog Low) 0 units SC ACHS [facility] PRN Reason: Protocol Last Admin: 01/04/17 22:07 Dose: Not Given Levothyroxine Sodium (Synthroid) 125 mcg PO DAILY [facility] Last Admin: 01/04/17 09:08 Dose: 125 mcg Losartan Potassium (Cozaar) 12.5 mg PO DAILY [facility] Last Admin: 01/04/17 09:10 Dose: 12.5 mg Metoprolol Tartrate (Lopressor) 12.5 mg PO BID [facility] Last Admin: 01/04/17 18:10 Dose: 12.5 mg Ondansetron HCl (Zofran Inj) 4 mg IVP Q4H PRN PRN Reason: Nausea/Vomiting Last Admin: 01/02/17 10:05 Dose: 4 mg Pantoprazole Sodium (Protonix Ec Tab) 40 mg PO 0600 [facility] Last Admin: 01/05/17 06:20 Dose: 40 mg Polysaccharide Iron Complex (Ferrex-150) 150 mg PO DAILY [facility] Last Admin: 01/04/17 09:35 Dose: Not Given Quetiapine Fumarate (Seroquel) 50 mg PO AMHS [facility] PRN Reason: Protocol Last Admin: 01/04/17 22:05 Dose: 50 mg Torsemide (Demadex) 30 mg PO Q12H [facility] Last Admin: 01/05/17 01:37 Dose: Not Given Tramadol HCl (Ultram) 50 mg PO Q8 PRN PRN Reason: Pain, moderate (4-7) Last Admin: 01/04/17 18:10 Dose: 50 mg - Labs Labs: 01/04/17 08:30 01/04/17 08:30 PT 11.9 Seconds (9.9-11.8) H 12/13/16 16:30 INR 1.10 (0.93-1.08) H 12/13/16 16:30 APTT 27.1 Seconds (23.7-30.8) 12/13/16 16:30 - Constitutional Appears: Non-toxic, No Acute Distress - Head Exam Head Exam: NORMAL INSPECTION - Neck Exam Neck Exam: absent: Meningismus - Respiratory Exam Respiratory Exam: Decreased Breath Sounds - Cardiovascular Exam Cardiovascular Exam: +S1, +S2 - GI/Abdominal Exam GI & Abdominal Exam: Soft. absent: Tenderness Assessment and Plan - Assessment and Plan (Free Text) Plan: Assessment bilateral lower extremity swelling, consider venous stasis in a patient with chronic congestive heart failure, with probable superimposed cellulitis, clinically improved and S/P treatment history of lower UTI with Klebsiella and Pseudomonas associated with Witt catheter S/P severe sepsis S/P hypoxic ventilator-dependent respiratory failure probably due to bilateral lower lobe healthcare-associated pneumonia history of hyperglycemic, hyperosmolar state with acute pancreatitis history of VRE in the urine - probably asymptomatic bacteriuria chronic congestive heart failure due to cardiomyopathy history of healthcare-associated pneumonia, right middle lobe history of bilateral healthcare-associated pneumonia S/P acute cholecystitis, S/P laparoscopic cholecystectomy CAD DM HTN history of migraines bipolar disorder Plan will continue to monitor off antibiotics since she is at risk for hospital- acquired infections
[2017-01-05] MEDS: Digoxin 125 mcg (0.125 mg) Tab PO SCH (13:24)
--- NOTE | 2017-01-05 13:46 | CP.PCM.PN ---
<Gin Pires - Last Filed: 01/05/17 16:52> Subjective - Date & Time of Evaluation Date of Evaluation: 01/05/17 Time of Evaluation: 07:40 - Subjective Subjective: Hospitalist Service Progress Note: Patient seen and examined at bedside. Per nursing, no acute events overnight. Patient is doing well, oob to chair this morning. LE swelling is improving, moving lower extremities better. Denies headaches, dizziness, cp, palpitations, sob, abdominal pain, urinary symptoms . Objective - Vital Signs/Intake and Output Vital Signs (last 24 hours): Temp Pulse Resp BP Pulse Ox 98.9 F 100 H 19 100/62 96 01/05/17 12:00 01/05/17 12:00 01/05/17 12:00 01/05/17 13:19 01/05/17 05:42 Intake and Output: 01/05/17 01/05/17 06:59 18:59 Intake Total 240 Output Total 400 Balance -160 - Medications Medications: Current Medications Apixaban (Eliquis) 5 mg PO BID [facility] PRN Reason: Protocol Last Admin: 01/05/17 09:39 Dose: 5 mg Clonazepam (Klonopin) 0.5 mg PO DAILY [facility] PRN Reason: Protocol Last Admin: 01/05/17 09:38 Dose: 0.5 mg Digoxin (Lanoxin) 0.125 mg PO 1400 [facility] Last Admin: 01/05/17 13:24 Dose: 0.125 mg Ferrous Sulfate (Feosol) 324 mg PO DAILY [facility] Last Admin: 01/05/17 09:38 Dose: 324 mg Furosemide (Lasix) 20 mg IVP Q6H [facility] Last Admin: 01/05/17 13:19 Dose: 20 mg Gabapentin (Neurontin) 100 mg PO BID [facility] PRN Reason: Protocol Last Admin: 01/05/17 09:39 Dose: 100 mg Insulin Detemir (Levemir) 25 unit SC HS [facility] Last Admin: 01/04/17 22:07 Dose: 25 unit Insulin Human Lispro (Humalog Low) 0 units SC ACHS [facility] PRN Reason: Protocol Last Admin: 01/05/17 11:30 Dose: Not Given Levothyroxine Sodium (Synthroid) 125 mcg PO DAILY [facility] Last Admin: 01/05/17 09:39 Dose: 125 mcg Losartan Potassium (Cozaar) 12.5 mg PO DAILY [facility] Last Admin: 01/05/17 09:39 Dose: Not Given Metoprolol Tartrate (Lopressor) 12.5 mg PO BID [facility] Last Admin: 01/05/17 09:39 Dose: Not Given Ondansetron HCl (Zofran Inj) 4 mg IVP Q4H PRN PRN Reason: Nausea/Vomiting Last Admin: 01/02/17 10:05 Dose: 4 mg Pantoprazole Sodium (Protonix Ec Tab) 40 mg PO 0600 [facility] Last Admin: 01/05/17 06:20 Dose: 40 mg Polysaccharide Iron Complex (Ferrex-150) 150 mg PO DAILY [facility] Last Admin: 01/05/17 09:39 Dose: 150 mg Quetiapine Fumarate (Seroquel) 50 mg PO AMHS [facility] PRN Reason: Protocol Last Admin: 01/05/17 09:39 Dose: 50 mg Torsemide (Demadex) 30 mg PO Q12H [facility] Last Admin: 01/05/17 10:45 Dose: Not Given Tramadol HCl (Ultram) 50 mg PO Q8 PRN PRN Reason: Pain, moderate (4-7) Last Admin: 01/04/17 18:10 Dose: 50 mg - Labs Labs: 01/05/17 08:15 01/05/17 08:15 PT 11.9 Seconds (9.9-11.8) H 12/13/16 16:30 INR 1.10 (0.93-1.08) H 12/13/16 16:30 APTT 27.1 Seconds (23.7-30.8) 12/13/16 16:30 - Constitutional Appears: Non-toxic, No Acute Distress, Older Than Stated Age - Head Exam Head Exam: ATRAUMATIC, NORMAL INSPECTION - Eye Exam Eye Exam: EOMI, Normal appearance Pupil Exam: NORMAL ACCOMODATION, PERRL - ENT Exam ENT Exam: Mucous Membranes Moist - Neck Exam Neck Exam: Full ROM - Respiratory Exam Respiratory Exam: Decreased Breath Sounds, NORMAL BREATHING PATTERN - Cardiovascular Exam Cardiovascular Exam: Tachycardia, +S1, +S2 - GI/Abdominal Exam GI & Abdominal Exam: Soft, Normal Bowel Sounds. absent: Guarding, Rigid, Tenderness - Extremities Exam Extremities Exam: absent: Calf Tenderness Additional comments: +2 pitting edema in B/L LE Dry skin - Back Exam Back Exam: NORMAL INSPECTION - Neurological Exam Neurological Exam: Alert, Awake, Oriented x3 - Psychiatric Exam Psychiatric exam: Normal Affect, Normal Mood - Skin Skin Exam: Dry, Normal Color, Warm Assessment and Plan - Assessment and Plan (Free Text) Assessment: 51 y/o F with PMH of DM2, CHF with EF of 30%, HTN, non-ischemic cardiomyopathy, chronic pleural effusion, DVT, Recurrent PE on Eliquis, hypothyroidism, and schizophrenia was admitted with acute on chronic systolic heart failure exacerbation with LE edema and superimposed lower extremity cellulitis. Patient has completed 7 days of IV Cefazolin and has no fever or leukocytosis. Patient' s LE edema/pain has much improved since the addition of Dobutamine. Patient is OOB to chair with LE elevated. Patient states she is amenable to physical therapy. Patient re-started on low-dose antipsychotics for worsening agitation and for underlying affective disorder. 12/28/16 patient complained of chest pain , stat EKG and troponin negative for ACS. 12/29/16 patient's dobutamine drip was discontinued. Patient was OOB and walking today. Plan: 1. Acute on Chronic CHF exacerbation - EF approx 30% - Clinically improving - Continue Toresamide - Continue Lasix 20mg Q6H IV - Continue Losartan - Continue Leg elevation - OOB and walking with assistance - Cardiology on consult, f/u recommendations - Patient now amendable to going to rehab, will follow up with SW - Psych clearance pending 2. B/L LE cellulitis -Continue diuresis -Pain control prn - Ultram 3. Diabetes Mellitus - Levemir 25 U HS - ISS low-dose and accuchecks - Neurontin 100 mg BID for diabetic neuropathy 3. Atrial Fibrillation, rate controlled - Eliquis 5 mg BID - Metropolol 12.5 BID - Continue Digoxin 4. Hyponatremia - Sodium 134 today, will continue to monitor - Continue fluid restriction - Nephrology on consult, f/u recommendations 5. Hyperkalemia -Potassium 4.5 today, -Will continue to monitor 6. Hypothyroidism - Synthroid 125 mcg daily 7. Schizophrenia and labile mood - Seroquel 50 mg HS and Klonopin - Per yolette patient is competent and able to make her own decisions - Psychiatry, Dr. Polanco consulted, appreciate recommendations. GI/DVT prophylaxis: - Protonix 40 mg PO daily - Eliquis 5mg BID <Annmarie Amador B - Last Filed: 01/07/17 16:21> Objective - Vital Signs/Intake and Output Vital Signs (last 24 hours): Temp Pulse Resp BP Pulse Ox 98.5 F 89 22 117/79 97 01/07/17 12:00 01/07/17 14:00 01/07/17 12:00 01/07/17 12:59 01/07/17 06:00 - Medications Medications: Current Medications Apixaban (Eliquis) 5 mg PO BID [facility] PRN Reason: Protocol Last Admin: 01/07/17 10:34 Dose: 5 mg Clonazepam (Klonopin) 0.5 mg PO DAILY [facility] PRN Reason: Protocol Last Admin: 01/07/17 10:33 Dose: 0.5 mg Digoxin (Lanoxin) 0.125 mg PO 1400 [facility] Last Admin: 01/07/17 12:59 Dose: 0.125 mg Ferrous Sulfate (Feosol) 324 mg PO DAILY [facility] Last Admin: 01/07/17 10:33 Dose: 324 mg Furosemide (Lasix) 20 mg IVP Q6H [facility] Last Admin: 01/07/17 12:59 Dose: 20 mg Gabapentin (Neurontin) 100 mg PO BID [facility] PRN Reason: Protocol Last Admin: 01/07/17 10:33 Dose: 100 mg Insulin Detemir (Levemir) 25 unit SC HS [facility] Last Admin: 01/06/17 22:15 Dose: 25 unit Insulin Human Lispro (Humalog Low) 0 units SC ACHS [facility] PRN Reason: Protocol Last Admin: 01/07/17 12:00 Dose: Not Given Levothyroxine Sodium (Synthroid) 125 mcg PO DAILY [facility] Last Admin: 01/07/17 10:33 Dose: 125 mcg Losartan Potassium (Cozaar) 12.5 mg PO DAILY [facility] Last Admin: 01/07/17 10:34 Dose: 12.5 mg Metoprolol Tartrate (Lopressor) 12.5 mg PO BID [facility] Last Admin: 01/07/17 10:35 Dose: 12.5 mg Ondansetron HCl (Zofran Inj) 4 mg IVP Q4H PRN PRN Reason: Nausea/Vomiting Last Admin: 01/02/17 10:05 Dose: 4 mg Pantoprazole Sodium (Protonix Ec Tab) 40 mg PO 0600 [facility] Last Admin: 01/07/17 05:44 Dose: 40 mg Polysaccharide Iron Complex (Ferrex-150) 150 mg PO DAILY [facility] Last Admin: 01/07/17 10:36 Dose: 150 mg Quetiapine Fumarate (Seroquel) 50 mg PO [facility] PRN Reason: Protocol Last Admin: 01/07/17 10:35 Dose: 50 mg Torsemide (Demadex) 30 mg PO Q12H [facility] Last Admin: 01/05/17 10:45 Dose: Not Given Tramadol HCl (Ultram) 50 mg PO Q8 PRN PRN Reason: Pain, moderate (4-7) Last Admin: 01/04/17 18:10 Dose: 50 mg - Labs Labs: 01/06/17 06:45 01/06/17 06:45 PT 11.9 Seconds (9.9-11.8) H 12/13/16 16:30 INR 1.10 (0.93-1.08) H 12/13/16 16:30 APTT 27.1 Seconds (23.7-30.8) 12/13/16 16:30 Attending/Attestation - Attestation I have personally seen and examined this patient.: Yes I have fully participated in the care of the patient.: Yes I have reviewed all pertinent clinical information, including history, physical exam and plan: Yes Notes (Text): I have seen and examined patient at bedside with the resident. Agree with the note above with the following additions/ exceptions: Briefly this is 51 year old female with history of DM-2, CHF (EF~30%), HTN, NICMP, chronic pleural effusion, 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 Leg edema has improved since admission. Aldactone was held secondary to hyperkalemia. Continue Torsemide. Lasix was restarted. Discussed with research support specialist and medical investigator. Continue Lopressor and Cozaar. Continue levemir for DM-2. Patient is refusing to go back to care home. PT is recommending [facility] vs [facility]. pharmacy district manager is in contact with sister in law to make disposition arrangements. Patient will follow up with PMD Dr. valdez upon discharge. Dr Annmarie Amador
--- NOTE | 2017-01-05 23:19 | CP.PCM.PN ---
Objective - Vital Signs/Intake and Output Vital Signs (last 24 hours): Temp Pulse Resp BP Pulse Ox 97.8 F 102 H 17 106/57 L 96 01/05/17 18:00 01/05/17 18:12 01/05/17 18:00 01/05/17 18:14 01/05/17 05:42 - Medications Medications: Current Medications Apixaban (Eliquis) 5 mg PO BID [facility] PRN Reason: Protocol Last Admin: 01/05/17 18:13 Dose: 5 mg Clonazepam (Klonopin) 0.5 mg PO DAILY [facility] PRN Reason: Protocol Last Admin: 01/05/17 09:38 Dose: 0.5 mg Digoxin (Lanoxin) 0.125 mg PO 1400 [facility] Last Admin: 01/05/17 13:24 Dose: 0.125 mg Ferrous Sulfate (Feosol) 324 mg PO DAILY [facility] Last Admin: 01/05/17 09:38 Dose: 324 mg Furosemide (Lasix) 20 mg IVP Q6H [facility] Last Admin: 01/05/17 18:14 Dose: 20 mg Gabapentin (Neurontin) 100 mg PO BID [facility] PRN Reason: Protocol Last Admin: 01/05/17 18:13 Dose: 100 mg Insulin Detemir (Levemir) 25 unit SC HS [facility] Last Admin: 01/04/17 22:07 Dose: 25 unit Insulin Human Lispro (Humalog Low) 0 units SC ACHS [facility] PRN Reason: Protocol Last Admin: 01/05/17 18:11 Dose: 2 units Levothyroxine Sodium (Synthroid) 125 mcg PO DAILY [facility] Last Admin: 01/05/17 09:39 Dose: 125 mcg Losartan Potassium (Cozaar) 12.5 mg PO DAILY [facility] Last Admin: 01/05/17 09:39 Dose: Not Given Metoprolol Tartrate (Lopressor) 12.5 mg PO BID [facility] Last Admin: 01/05/17 18:12 Dose: 12.5 mg Ondansetron HCl (Zofran Inj) 4 mg IVP Q4H PRN PRN Reason: Nausea/Vomiting Last Admin: 01/02/17 10:05 Dose: 4 mg Pantoprazole Sodium (Protonix Ec Tab) 40 mg PO 0600 [facility] Last Admin: 01/05/17 06:20 Dose: 40 mg Polysaccharide Iron Complex (Ferrex-150) 150 mg PO DAILY [facility] Last Admin: 01/05/17 09:39 Dose: 150 mg Quetiapine Fumarate (Seroquel) 50 mg PO [facility] PRN Reason: Protocol Last Admin: 01/05/17 09:39 Dose: 50 mg Torsemide (Demadex) 30 mg PO Q12H [facility] Last Admin: 01/05/17 10:45 Dose: Not Given Tramadol HCl (Ultram) 50 mg PO Q8 PRN PRN Reason: Pain, moderate (4-7) Last Admin: 01/04/17 18:10 Dose: 50 mg - Labs Labs: 01/05/17 08:15 01/05/17 08:15 PT 11.9 Seconds (9.9-11.8) H 12/13/16 16:30 INR 1.10 (0.93-1.08) H 12/13/16 16:30 APTT 27.1 Seconds (23.7-30.8) 12/13/16 16:30 Assessment and Plan (1) CHF exacerbation Status: Acute (2) Pleural effusion Status: Acute (3) Hyponatremia Status: Acute (4) Hyperglycemia Status: Resolved (5) Prerenal azotemia Status: Acute (6) Metabolic alkalosis Status: Acute
[2017-01-06] MEDS: Insulin Detemir 100 units/ml Vial (Levemir) SC SCH ×2 (00:04→22:15)
[2017-01-06] MEDS: Insulin Lispro (humaLOG) LOW Coverage SC SCH ×5 (00:06→22:21)
--- NOTE | 2017-01-06 00:08 | PN ---
DATE: SUBJECTIVE: The patient is comfortable on the chair. PHYSICAL EXAMINATION: VITAL SIGNS: Blood pressure 106/57, heart rate 102, temperature 97.8 and respirations 17. HEENT: Normocephalic. CHEST: Absent breath sounds over both bases. HEART: S1 and S2, regular. EXTREMITIES: 2+ pitting edema. LABORATORY DATA: Hemoglobin and hematocrit within normal limits, white count 11.1 and platelet count 438. Today's SMA-7 is within normal limits except for chloride of 89 and BUN of 55. Alkaline phosphatase is elevated to 143. ASSESSMENT: 1. Cardiomyopathy. 2. Right subclavian thrombosis. 3. Mild prerenal azotemia. 4. Bilateral leg cellulitis. RECOMMENDATIONS: Continue current Demadex, Eliquis, Feosol, oral Lanoxin, IV Lasix 20 mg q. 6 hours, Lopressor 12.5 mg twice a day. The most recent digoxin level day before yesterday was 1.3. Cesar Kinney MD
[2017-01-06] MEDS: Pantoprazole 40 mg EC Tab PO SCH (05:42)
[2017-01-06 07:21] LABS: BASO # 0.04 K/mm3 (0.0-2.0); BASO % 0.4 % (0.0-3.0); EOS # 0.2 (0.0-0.7); EOS % 2.3 % (1.5-5.0); GRAN # 6.82 (1.4-6.5); GRAN % 68.8 % (50.0-68.0); HEMATOCRIT 42.9 % (36.0-48.0); LYMPH # 2.1 (1.2-3.4); LYMPH % 21.6 % (22.0-35.0); MEAN CELL VOLUME 85.3 fl (80.0-105.0); MEAN CORPUSCULAR HEMOGLOBIN 28.2 pg (25.0-35.0); MEAN CORPUSCULAR HGB CONC 33.1 g/dl (31.0-37.0); MEAN PLATELET VOLUME 10.4 fl (7.0-11.0); MONO # 0.7 (0.1-0.6); MONO % 6.9 % (1.0-6.0); RED CELL DISTRIBUTION WIDTH 18.3 % (11.5-14.5); WHITE BLOOD COUNT 9.9 10^3/ul (4.5-11.0)
[2017-01-06 07:33] LABS: ALB/GLOB RATIO 1.2 (1.1-1.8); ALKALINE PHOSPHATASE 223 U/L (38-126); ALT/SGPT 34 U/L (7-56); AST/SGOT 32 U/L (14-36); BILIRUBIN,TOTAL 0.5 mg/dL (0.2-1.3); BLOOD UREA NITROGEN 50 mg/dL (7-21); CALCIUM 9.2 mg/dL (8.4-10.5); CARBON DIOXIDE 30 mmol/L (21-33); CHLORIDE 93 mmol/L (98-107); GFR AFRICAN-AMERICAN > 60; GLUCOSE,RANDOM 176 mg/dL (70-110); PHOSPHOROUS 3.5 mg/dL (2.5-4.5); POTASSIUM 4.6 mmol/L (3.6-5.0); SODIUM 134 mmol/L (132-148); TOTAL PROTEIN 6.9 g/dL (5.8-8.3)
[2017-01-06] MEDS: Iron Complex Polysacch 150mg Cap PO SCH (09:10)
--- NOTE | 2017-01-06 10:07 | CP.PCM.PN ---
Subjective - Date & Time of Evaluation Date of Evaluation: 01/06/17 Time of Evaluation: 08:50 - Subjective Subjective: Comfortable, afebrile, not in distress. Objective - Vital Signs/Intake and Output Vital Signs (last 24 hours): Temp Pulse Resp BP Pulse Ox 98.0 F 99 H 20 96/54 L 96 01/06/17 00:01 01/06/17 00:01 01/06/17 00:01 01/06/17 05:41 01/05/17 05:42 - Medications Medications: Current Medications Apixaban (Eliquis) 5 mg PO BID [facility] PRN Reason: Protocol Last Admin: 01/05/17 18:13 Dose: 5 mg Clonazepam (Klonopin) 0.5 mg PO DAILY [facility] PRN Reason: Protocol Last Admin: 01/05/17 09:38 Dose: 0.5 mg Digoxin (Lanoxin) 0.125 mg PO 1400 [facility] Last Admin: 01/05/17 13:24 Dose: 0.125 mg Ferrous Sulfate (Feosol) 324 mg PO DAILY [facility] Last Admin: 01/05/17 09:38 Dose: 324 mg Furosemide (Lasix) 20 mg IVP Q6H [facility] Last Admin: 01/06/17 05:41 Dose: 20 mg Gabapentin (Neurontin) 100 mg PO BID [facility] PRN Reason: Protocol Last Admin: 01/05/17 18:13 Dose: 100 mg Insulin Detemir (Levemir) 25 unit SC HS [facility] Last Admin: 01/06/17 00:04 Dose: 25 unit Insulin Human Lispro (Humalog Low) 0 units SC ACHS [facility] PRN Reason: Protocol Last Admin: 01/06/17 00:06 Dose: Not Given Levothyroxine Sodium (Synthroid) 125 mcg PO DAILY [facility] Last Admin: 01/05/17 09:39 Dose: 125 mcg Losartan Potassium (Cozaar) 12.5 mg PO DAILY [facility] Last Admin: 01/05/17 09:39 Dose: Not Given Metoprolol Tartrate (Lopressor) 12.5 mg PO BID [facility] Last Admin: 01/05/17 18:12 Dose: 12.5 mg Ondansetron HCl (Zofran Inj) 4 mg IVP Q4H PRN PRN Reason: Nausea/Vomiting Last Admin: 01/02/17 10:05 Dose: 4 mg Pantoprazole Sodium (Protonix Ec Tab) 40 mg PO 0600 [facility] Last Admin: 01/06/17 05:42 Dose: 40 mg Polysaccharide Iron Complex (Ferrex-150) 150 mg PO DAILY [facility] Last Admin: 01/05/17 09:39 Dose: 150 mg Quetiapine Fumarate (Seroquel) 50 mg PO [facility] PRN Reason: Protocol Last Admin: 01/06/17 00:03 Dose: 50 mg Torsemide (Demadex) 30 mg PO Q12H [facility] Last Admin: 01/05/17 10:45 Dose: Not Given Tramadol HCl (Ultram) 50 mg PO Q8 PRN PRN Reason: Pain, moderate (4-7) Last Admin: 01/04/17 18:10 Dose: 50 mg - Labs Labs: 01/05/17 08:15 01/05/17 08:15 PT 11.9 Seconds (9.9-11.8) H 12/13/16 16:30 INR 1.10 (0.93-1.08) H 12/13/16 16:30 APTT 27.1 Seconds (23.7-30.8) 12/13/16 16:30 - Constitutional Appears: Non-toxic, No Acute Distress - Head Exam Head Exam: NORMAL INSPECTION - ENT Exam ENT Exam: Mucous Membranes Moist - Neck Exam Neck Exam: absent: Meningismus - Respiratory Exam Respiratory Exam: Decreased Breath Sounds - Cardiovascular Exam Cardiovascular Exam: +S1, +S2 - GI/Abdominal Exam GI & Abdominal Exam: Soft. absent: Tenderness Assessment and Plan - Assessment and Plan (Free Text) Plan: Assessment bilateral lower extremity swelling, consider venous stasis in a patient with chronic congestive heart failure, with probable superimposed cellulitis, clinically improved and S/P treatment history of lower UTI with Klebsiella and Pseudomonas associated with Witt catheter S/P severe sepsis S/P hypoxic ventilator-dependent respiratory failure probably due to bilateral lower lobe healthcare-associated pneumonia history of hyperglycemic, hyperosmolar state with acute pancreatitis history of VRE in the urine - probably asymptomatic bacteriuria chronic congestive heart failure due to cardiomyopathy history of healthcare-associated pneumonia, right middle lobe history of bilateral healthcare-associated pneumonia S/P acute cholecystitis, S/P laparoscopic cholecystectomy CAD DM HTN history of migraines bipolar disorder Plan will continue to monitor off antibiotics since she is at risk for healthcare- associated infections
[2017-01-06] MEDS: Levothyroxine 125 MCG TAB PO SCH (10:21)
--- NOTE | 2017-01-06 13:00 | PN ---
NEPHROLOGY FOLLOWUP NOTE SUBJECTIVE: A 51-year-old female with past medical history of CHF with severe systolic dysfunction with mitral regurgitation, diabetes, hypertension, AFib, status post subclavian vein thrombosis, on Eliquis, admitted with acute decompensated systolic CHF. Nephrology following for acute renal failure, CHF and hyponatremia. The patient reports some shortness of breath today. However, per nursing staff, she has been comfortable, tolerated diet well. OBJECTIVE: VITAL SIGNS: This morning, blood pressure 110/64, heart rate 103, respirations 20, temperature 97.4 and O2 sat 91% on room air. GENERAL: No distress. Lying comfortably in bed, conversing coherently in full sentences. HEENT: Moist mucous membranes. No JVD. RESPIRATORY: Decreased breath sounds at bases bilaterally. No rales. No rhonchi. No wheezes. CARDIOVASCULAR: Heart sounds, systolic murmur present. No gallops, no rubs. Irregular rate. ABDOMEN: Soft, nondistended. EXTREMITIES: Markedly edematous legs, however somewhat improved. SKIN: Warm, erythematous lower legs today bilaterally. No cyanosis. PSYCHIATRIC: Mildly agitated. LABORATORY DATA: This morning, CBC: WBC 9.9, hemoglobin 14.2, hematocrit 142.9, platelets 351. Chemistry panel: Sodium 134; potassium 4.6; chloride 93; bicarb 30; BUN 50; creatinine 1.1, improved from 1.4 two days ago; glucose 176. Calcium 9.2. Phosphorus 3.5. Albumin 3.7. ASSESSMENT AND PLAN: 1. Congestive heart failure with systolic dysfunction, acutely decompensated, however, appears clinically stable and symptoms at this point are chronic with chronic pleural effusions and chronic leg edema; does not appear to be in overt failure at this time compared to previous exams; diuretics changed from p.o. torsemide to Lasix 20 mg IV q. 6 hours for more prolonged duration of diuresis; dilemma has been that weight appeared to have increased with the patient also going into acute kidney injury; question has been whether the patient has been over diuresed or is being under diuresed. We will continue to monitor standing weights. We will continue with current Lasix regimen. We will need to switch to p.o. regimen to have the patient discharged. We will start Bumex 1 mg p.o. q. 8 hours. 2. Acute kidney injury, improving, see above for diuretic recommendation. 3. Metabolic alkalosis, relatively stable despite being off of Aldactone. We will need to start Aldactone 25 mg p.o. b.i.d. for both diuresis as well as cardiac optimization. 4. Hyponatremia has been stable of late despite being off of tolvaptan since the last 4 days, we will continue to hold and monitor. 5. Hypertension, currently on diuretics as above as well as losartan 12.5 mg daily and metoprolol 12.5 mg p.o. b.i.d. Recommend not to hold meds unless systolic blood pressure less than 90 as these meds have role in optimizing cardiac status. Akash French MD
[2017-01-06] MEDS: Digoxin 125 mcg (0.125 mg) Tab PO SCH (13:44)
--- NOTE | 2017-01-06 16:00 | CP.PCM.PN ---
<Gin Pires - Last Filed: 01/06/17 16:01> Subjective - Date & Time of Evaluation Date of Evaluation: 01/06/17 Time of Evaluation: 07:40 - Subjective Subjective: Hospitalist Service Progress Note: Patient seen and examined at bedside. Per nursing, no acute events overnight. Patient is doing well, offers no complaints. Tolerating diet. Denies headaches, dizziness, cp, palpitations, urinary symptoms. Objective - Vital Signs/Intake and Output Vital Signs (last 24 hours): Temp Pulse Resp BP Pulse Ox 97.4 F L 99 H 20 92/46 L 91 L 01/06/17 06:00 01/06/17 14:00 01/06/17 06:00 01/06/17 12:04 01/06/17 06:00 Intake and Output: 01/06/17 01/06/17 06:59 18:59 Intake Total 120 Output Total 2700 Balance -2580 - Medications Medications: Current Medications Apixaban (Eliquis) 5 mg PO BID [facility] PRN Reason: Protocol Last Admin: 01/06/17 09:11 Dose: 5 mg Clonazepam (Klonopin) 0.5 mg PO DAILY [facility] PRN Reason: Protocol Last Admin: 01/06/17 09:09 Dose: 0.5 mg Digoxin (Lanoxin) 0.125 mg PO 1400 [facility] Last Admin: 01/06/17 13:44 Dose: 0.125 mg Ferrous Sulfate (Feosol) 324 mg PO DAILY [facility] Last Admin: 01/06/17 09:10 Dose: 324 mg Furosemide (Lasix) 20 mg IVP Q6H [facility] Last Admin: 01/06/17 12:04 Dose: 20 mg Gabapentin (Neurontin) 100 mg PO BID [facility] PRN Reason: Protocol Last Admin: 01/06/17 09:10 Dose: 100 mg Insulin Detemir (Levemir) 25 unit SC HS [facility] Last Admin: 01/06/17 00:04 Dose: 25 unit Insulin Human Lispro (Humalog Low) 0 units SC ACHS [facility] PRN Reason: Protocol Last Admin: 01/06/17 12:04 Dose: 2 units Levothyroxine Sodium (Synthroid) 125 mcg PO DAILY [facility] Last Admin: 01/06/17 10:21 Dose: 125 mcg Losartan Potassium (Cozaar) 12.5 mg PO DAILY [facility] Last Admin: 01/06/17 09:10 Dose: 12.5 mg Metoprolol Tartrate (Lopressor) 12.5 mg PO BID [facility] Last Admin: 01/06/17 09:08 Dose: 12.5 mg Ondansetron HCl (Zofran Inj) 4 mg IVP Q4H PRN PRN Reason: Nausea/Vomiting Last Admin: 01/02/17 10:05 Dose: 4 mg Pantoprazole Sodium (Protonix Ec Tab) 40 mg PO 0600 [facility] Last Admin: 01/06/17 05:42 Dose: 40 mg Polysaccharide Iron Complex (Ferrex-150) 150 mg PO DAILY [facility] Last Admin: 01/06/17 09:10 Dose: 150 mg Quetiapine Fumarate (Seroquel) 50 mg PO AMHS [facility] PRN Reason: Protocol Last Admin: 01/06/17 09:08 Dose: 50 mg Torsemide (Demadex) 30 mg PO Q12H [facility] Last Admin: 01/05/17 10:45 Dose: Not Given Tramadol HCl (Ultram) 50 mg PO Q8 PRN PRN Reason: Pain, moderate (4-7) Last Admin: 01/04/17 18:10 Dose: 50 mg - Labs Labs: 01/06/17 06:45 01/06/17 06:45 PT 11.9 Seconds (9.9-11.8) H 12/13/16 16:30 INR 1.10 (0.93-1.08) H 12/13/16 16:30 APTT 27.1 Seconds (23.7-30.8) 12/13/16 16:30 - Constitutional Appears: Non-toxic, No Acute Distress - Head Exam Head Exam: ATRAUMATIC, NORMAL INSPECTION - Eye Exam Eye Exam: EOMI, Normal appearance Pupil Exam: NORMAL ACCOMODATION - ENT Exam ENT Exam: Mucous Membranes Moist - Neck Exam Neck Exam: Full ROM - Respiratory Exam Respiratory Exam: Decreased Breath Sounds, NORMAL BREATHING PATTERN. absent: Rales, Rhonchi, Wheezes - Cardiovascular Exam Cardiovascular Exam: Tachycardia, +S1, +S2 - GI/Abdominal Exam GI & Abdominal Exam: Distended, Soft. absent: Guarding, Rigid, Tenderness - Extremities Exam Additional comments: +2 LE pitting edema bilaterally Dry skin - Back Exam Back Exam: NORMAL INSPECTION - Neurological Exam Neurological Exam: Alert, Awake, Oriented x3 - Psychiatric Exam Psychiatric exam: Normal Affect, Normal Mood - Skin Skin Exam: Normal Color, Warm Assessment and Plan - Assessment and Plan (Free Text) Assessment: 51 y/o F with PMH of DM2, CHF with EF of 30%, HTN, non-ischemic cardiomyopathy, chronic pleural effusion, DVT, Recurrent PE on Eliquis, hypothyroidism, and schizophrenia was admitted with acute on chronic systolic heart failure exacerbation with LE edema and superimposed lower extremity cellulitis. Patient has completed 7 days of IV Cefazolin and has no fever or leukocytosis. Patient' s LE edema/pain has much improved since the addition of Dobutamine. Patient is OOB to chair with LE elevated. Patient states she is amenable to physical therapy. Patient re-started on low-dose antipsychotics for worsening agitation and for underlying affective disorder. 12/28/16 patient complained of chest pain , stat EKG and troponin negative for ACS. 12/29/16 patient's dobutamine drip was discontinued. Patient was OOB and walking today. Plan: 1. Acute on Chronic CHF exacerbation - EF approx 30% - Clinically improving - Continue Toresamide - Continue Lasix 20mg Q6H IV - Continue Losartan - Continue Leg elevation - OOB and walking with assistance - Cardiology on consult, f/u recommendations - Patient now amendable to going to rehab, will follow up with SW - Psych clearance pending 2. B/L LE cellulitis -Continue diuresis -Pain control prn - Ultram 3. Diabetes Mellitus - Levemir 25 U HS - ISS low-dose and accuchecks - Neurontin 100 mg BID for diabetic neuropathy 3. Atrial Fibrillation, rate controlled - Eliquis 5 mg BID - Metropolol 12.5 BID - Continue Digoxin 4. Hyponatremia - Sodium 134 today, will continue to monitor - Continue fluid restriction - Nephrology on consult, f/u recommendations 5. Hyperkalemia -Potassium 4.6 today, -Will continue to monitor 6. Hypothyroidism - Synthroid 125 mcg daily 7. Schizophrenia and labile mood - Seroquel 50 mg HS and Klonopin - Per yolette patient is competent and able to make her own decisions - Psychiatry, Dr. Polanco consulted, appreciate recommendations. GI/DVT prophylaxis: - Protonix 40 mg PO daily - Eliquis 5mg BID <Annmarie Amador - Last Filed: 01/07/17 16:22> Objective - Vital Signs/Intake and Output Vital Signs (last 24 hours): Temp Pulse Resp BP Pulse Ox 98.5 F 89 22 117/79 97 01/07/17 12:00 01/07/17 14:00 01/07/17 12:00 01/07/17 12:59 01/07/17 06:00 - Medications Medications: Current Medications Apixaban (Eliquis) 5 mg PO BID [facility] PRN Reason: Protocol Last Admin: 01/07/17 10:34 Dose: 5 mg Clonazepam (Klonopin) 0.5 mg PO DAILY [facility] PRN Reason: Protocol Last Admin: 01/07/17 10:33 Dose: 0.5 mg Digoxin (Lanoxin) 0.125 mg PO 1400 [facility] Last Admin: 01/07/17 12:59 Dose: 0.125 mg Ferrous Sulfate (Feosol) 324 mg PO DAILY [facility] Last Admin: 01/07/17 10:33 Dose: 324 mg Furosemide (Lasix) 20 mg IVP Q6H [facility] Last Admin: 01/07/17 12:59 Dose: 20 mg Gabapentin (Neurontin) 100 mg PO BID [facility] PRN Reason: Protocol Last Admin: 01/07/17 10:33 Dose: 100 mg Insulin Detemir (Levemir) 25 unit SC HS [facility] Last Admin: 01/06/17 22:15 Dose: 25 unit Insulin Human Lispro (Humalog Low) 0 units SC ACHS [facility] PRN Reason: Protocol Last Admin: 01/07/17 12:00 Dose: Not Given Levothyroxine Sodium (Synthroid) 125 mcg PO DAILY [facility] Last Admin: 01/07/17 10:33 Dose: 125 mcg Losartan Potassium (Cozaar) 12.5 mg PO DAILY [facility] Last Admin: 01/07/17 10:34 Dose: 12.5 mg Metoprolol Tartrate (Lopressor) 12.5 mg PO BID [facility] Last Admin: 01/07/17 10:35 Dose: 12.5 mg Ondansetron HCl (Zofran Inj) 4 mg IVP Q4H PRN PRN Reason: Nausea/Vomiting Last Admin: 01/02/17 10:05 Dose: 4 mg Pantoprazole Sodium (Protonix Ec Tab) 40 mg PO 0600 [facility] Last Admin: 01/07/17 05:44 Dose: 40 mg Polysaccharide Iron Complex (Ferrex-150) 150 mg PO DAILY [facility] Last Admin: 01/07/17 10:36 Dose: 150 mg Quetiapine Fumarate (Seroquel) 50 mg PO AMHS [facility] PRN Reason: Protocol Last Admin: 01/07/17 10:35 Dose: 50 mg Torsemide (Demadex) 30 mg PO Q12H [facility] Last Admin: 01/05/17 10:45 Dose: Not Given Tramadol HCl (Ultram) 50 mg PO Q8 PRN PRN Reason: Pain, moderate (4-7) Last Admin: 01/04/17 18:10 Dose: 50 mg - Labs Labs: 01/06/17 06:45 01/06/17 06:45 PT 11.9 Seconds (9.9-11.8) H 12/13/16 16:30 INR 1.10 (0.93-1.08) H 12/13/16 16:30 APTT 27.1 Seconds (23.7-30.8) 12/13/16 16:30 Attending/Attestation - Attestation I have personally seen and examined this patient.: Yes I have fully participated in the care of the patient.: Yes I have reviewed all pertinent clinical information, including history, physical exam and plan: Yes Notes (Text): I have seen and examined patient at bedside with the resident. Agree with the note above with the following additions/ exceptions: Briefly this is 51 year old female with history of DM-2, CHF (EF~30%), HTN, NICMP, chronic pleural effusion, 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 Leg edema has improved since admission. Aldactone was held secondary to hyperkalemia. Hold Torsemide. Lasix was restarted. Discussed with under trimmer and conference coordinator. Continue Lopressor and Cozaar. Continue levemir for DM-2. Patient is refusing to go back to skilled nursing. PT is recommending [facility] vs [facility]. shift nurse manager is in contact with sister in law to make disposition arrangements. Patient will follow up with PMD Dr. valdez upon discharge. Dr Annmarie Amador
[2017-01-07] MEDS: Pantoprazole 40 mg EC Tab PO SCH (05:44)
[2017-01-07] MEDS: Insulin Lispro (humaLOG) LOW Coverage SC SCH ×4 (08:00→21:40)
[2017-01-07] MEDS: Levothyroxine 125 MCG TAB PO SCH (10:33)
[2017-01-07] MEDS: Iron Complex Polysacch 150mg Cap PO SCH (10:36)
--- NOTE | 2017-01-07 12:53 | CP.PCM.PN ---
<Gin Pires - Last Filed: 01/07/17 14:15> Subjective - Date & Time of Evaluation Date of Evaluation: 01/07/17 Time of Evaluation: 08:50 - Subjective Subjective: Hospitalist Service Progress Note: Patient seen and examined at bedside. Per nursing no acute events overnight. Patient is refusing blood work this am. Moving extremities, LE swelling improved. Denies headaches, dizziness, cp, palpitations, sob, abdominal pain, urinary symptoms. Objective - Vital Signs/Intake and Output Vital Signs (last 24 hours): Temp Pulse Resp BP Pulse Ox 98.5 F 104 H 22 117/79 97 01/07/17 12:00 01/07/17 12:00 01/07/17 12:00 01/07/17 12:00 01/07/17 06:00 - Medications Medications: Current Medications Apixaban (Eliquis) 5 mg PO BID [facility] PRN Reason: Protocol Last Admin: 01/07/17 10:34 Dose: 5 mg Clonazepam (Klonopin) 0.5 mg PO DAILY [facility] PRN Reason: Protocol Last Admin: 01/07/17 10:33 Dose: 0.5 mg Digoxin (Lanoxin) 0.125 mg PO 1400 [facility] Last Admin: 01/06/17 13:44 Dose: 0.125 mg Ferrous Sulfate (Feosol) 324 mg PO DAILY [facility] Last Admin: 01/07/17 10:33 Dose: 324 mg Furosemide (Lasix) 20 mg IVP Q6H [facility] Last Admin: 01/07/17 05:44 Dose: 20 mg Gabapentin (Neurontin) 100 mg PO BID [facility] PRN Reason: Protocol Last Admin: 01/07/17 10:33 Dose: 100 mg Insulin Detemir (Levemir) 25 unit SC HS [facility] Last Admin: 01/06/17 22:15 Dose: 25 unit Insulin Human Lispro (Humalog Low) 0 units SC ACHS [facility] PRN Reason: Protocol Last Admin: 01/07/17 08:00 Dose: Not Given Levothyroxine Sodium (Synthroid) 125 mcg PO DAILY [facility] Last Admin: 01/07/17 10:33 Dose: 125 mcg Losartan Potassium (Cozaar) 12.5 mg PO DAILY [facility] Last Admin: 01/07/17 10:34 Dose: 12.5 mg Metoprolol Tartrate (Lopressor) 12.5 mg PO BID [facility] Last Admin: 01/07/17 10:35 Dose: 12.5 mg Ondansetron HCl (Zofran Inj) 4 mg IVP Q4H PRN PRN Reason: Nausea/Vomiting Last Admin: 01/02/17 10:05 Dose: 4 mg Pantoprazole Sodium (Protonix Ec Tab) 40 mg PO 0600 [facility] Last Admin: 01/07/17 05:44 Dose: 40 mg Polysaccharide Iron Complex (Ferrex-150) 150 mg PO DAILY [facility] Last Admin: 01/07/17 10:36 Dose: 150 mg Quetiapine Fumarate (Seroquel) 50 mg PO AMHS [facility] PRN Reason: Protocol Last Admin: 01/07/17 10:35 Dose: 50 mg Torsemide (Demadex) 30 mg PO Q12H [facility] Last Admin: 01/05/17 10:45 Dose: Not Given Tramadol HCl (Ultram) 50 mg PO Q8 PRN PRN Reason: Pain, moderate (4-7) Last Admin: 01/04/17 18:10 Dose: 50 mg - Labs Labs: 01/06/17 06:45 01/06/17 06:45 PT 11.9 Seconds (9.9-11.8) H 12/13/16 16:30 INR 1.10 (0.93-1.08) H 12/13/16 16:30 APTT 27.1 Seconds (23.7-30.8) 12/13/16 16:30 - Constitutional Appears: Non-toxic, No Acute Distress - Head Exam Head Exam: ATRAUMATIC, NORMAL INSPECTION - Eye Exam Eye Exam: EOMI, Normal appearance Pupil Exam: NORMAL ACCOMODATION - ENT Exam ENT Exam: Mucous Membranes Moist - Neck Exam Neck Exam: Full ROM - Respiratory Exam Respiratory Exam: Decreased Breath Sounds, NORMAL BREATHING PATTERN. absent: Rales, Rhonchi, Wheezes - Cardiovascular Exam Cardiovascular Exam: Tachycardia, +S1, +S2 - GI/Abdominal Exam GI & Abdominal Exam: Distended, Soft. absent: Guarding, Rigid, Tenderness, Rebound - Extremities Exam Additional comments: +2 pitting edema in LE bilaterally Legs erythematous; dry skin - Back Exam Back Exam: NORMAL INSPECTION - Neurological Exam Neurological Exam: Alert, Awake, Oriented x3 - Psychiatric Exam Psychiatric exam: Normal Affect, Normal Mood - Skin Skin Exam: Dry, Warm Assessment and Plan - Assessment and Plan (Free Text) Assessment: 51 y/o F with PMH of DM2, CHF with EF of 30%, HTN, non-ischemic cardiomyopathy, chronic pleural effusion, DVT, Recurrent PE on Eliquis, hypothyroidism, and schizophrenia was admitted with acute on chronic systolic heart failure exacerbation with LE edema and superimposed lower extremity cellulitis. Patient has completed 7 days of IV Cefazolin and has no fever or leukocytosis. Patient' s LE edema/pain has much improved since the addition of Dobutamine. Patient is OOB to chair with LE elevated. Patient states she is amenable to physical therapy. Patient re-started on low-dose antipsychotics for worsening agitation and for underlying affective disorder. 12/28/16 patient complained of chest pain , stat EKG and troponin negative for ACS. 12/29/16 patient's dobutamine drip was discontinued. Patient was OOB and walking today. Plan: 1. Acute on Chronic CHF exacerbation - EF approx 30% - Clinically improving - Continue Toresamide - Continue Lasix 20mg Q6H IV - Continue Losartan - Continue Leg elevation - OOB and walking with assistance - Cardiology on consult, f/u recommendations 2. B/L LE cellulitis -Continue diuresis -Pain control prn - Ultram 3. Diabetes Mellitus - Levemir 25 U HS - ISS low-dose and accuchecks - Neurontin 100 mg BID for diabetic neuropathy 3. Atrial Fibrillation, rate controlled - Eliquis 5 mg BID - Metropolol 12.5 BID - Continue Digoxin 4. Hyponatremia - Will continue to monitor - Continue fluid restriction - Nephrology on consult, f/u recommendations 5. Hyperkalemia -Will continue to monitor 6. Hypothyroidism - Synthroid 125 mcg daily 7. Schizophrenia and labile mood - Seroquel 50 mg HS and Klonopin - Per yolette patient is competent and able to make her own decisions - Psychiatry, Dr. Polanco consulted, appreciate recommendations. GI/DVT prophylaxis: - Protonix 40 mg PO daily - Eliquis 5mg BID <Annmarie Amador - Last Filed: 01/07/17 16:27> Objective - Vital Signs/Intake and Output Vital Signs (last 24 hours): Temp Pulse Resp BP Pulse Ox 98.5 F 89 22 117/79 97 01/07/17 12:00 01/07/17 14:00 01/07/17 12:00 01/07/17 12:59 01/07/17 06:00 - Medications Medications: Current Medications Apixaban (Eliquis) 5 mg PO BID [facility] PRN Reason: Protocol Last Admin: 01/07/17 10:34 Dose: 5 mg Clonazepam (Klonopin) 0.5 mg PO DAILY [facility] PRN Reason: Protocol Last Admin: 01/07/17 10:33 Dose: 0.5 mg Digoxin (Lanoxin) 0.125 mg PO 1400 [facility] Last Admin: 01/07/17 12:59 Dose: 0.125 mg Ferrous Sulfate (Feosol) 324 mg PO DAILY [facility] Last Admin: 01/07/17 10:33 Dose: 324 mg Furosemide (Lasix) 20 mg IVP Q6H [facility] Last Admin: 01/07/17 12:59 Dose: 20 mg Gabapentin (Neurontin) 100 mg PO BID [facility] PRN Reason: Protocol Last Admin: 01/07/17 10:33 Dose: 100 mg Insulin Detemir (Levemir) 25 unit SC HS [facility] Last Admin: 01/06/17 22:15 Dose: 25 unit Insulin Human Lispro (Humalog Low) 0 units SC [facility] PRN Reason: Protocol Last Admin: 01/07/17 12:00 Dose: Not Given Levothyroxine Sodium (Synthroid) 125 mcg PO DAILY [facility] Last Admin: 01/07/17 10:33 Dose: 125 mcg Losartan Potassium (Cozaar) 12.5 mg PO DAILY [facility] Last Admin: 01/07/17 10:34 Dose: 12.5 mg Metoprolol Tartrate (Lopressor) 12.5 mg PO BID [facility] Last Admin: 01/07/17 10:35 Dose: 12.5 mg Ondansetron HCl (Zofran Inj) 4 mg IVP Q4H PRN PRN Reason: Nausea/Vomiting Last Admin: 01/02/17 10:05 Dose: 4 mg Pantoprazole Sodium (Protonix Ec Tab) 40 mg PO 0600 [facility] Last Admin: 01/07/17 05:44 Dose: 40 mg Polysaccharide Iron Complex (Ferrex-150) 150 mg PO DAILY [facility] Last Admin: 01/07/17 10:36 Dose: 150 mg Quetiapine Fumarate (Seroquel) 50 mg PO AMHS [facility] PRN Reason: Protocol Last Admin: 01/07/17 10:35 Dose: 50 mg Torsemide (Demadex) 30 mg PO Q12H [facility] Last Admin: 01/05/17 10:45 Dose: Not Given Tramadol HCl (Ultram) 50 mg PO Q8 PRN PRN Reason: Pain, moderate (4-7) Last Admin: 01/04/17 18:10 Dose: 50 mg - Labs Labs: 01/06/17 06:45 01/06/17 06:45 PT 11.9 Seconds (9.9-11.8) H 12/13/16 16:30 INR 1.10 (0.93-1.08) H 12/13/16 16:30 APTT 27.1 Seconds (23.7-30.8) 12/13/16 16:30 Attending/Attestation - Attestation I have personally seen and examined this patient.: Yes I have fully participated in the care of the patient.: Yes I have reviewed all pertinent clinical information, including history, physical exam and plan: Yes Notes (Text): I have seen and examined patient at bedside with the resident. Agree with the note above with the following additions/ exceptions: Briefly this is 51 year old female with history of DM-2, CHF (EF~30%), HTN, NICMP, chronic pleural effusion, 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 Leg edema has improved since admission. Continue to hold aldactone and Torsemide. Patient refused blood work today. Continue lasix. Today wt is 169 lbs. Patient feels good. Discussed with content creation manager. Continue Lopressor and Cozaar. Continue levemir for DM-2. Patient is refusing to go back to [facility]. PT is recommending [facility] vs [facility]. franchise development manager is in contact with sister in law to make disposition arrangements. Patient will follow up with PMD Dr. valdez upon discharge. Dr Annmarie Amador
[2017-01-07] MEDS: Digoxin 125 mcg (0.125 mg) Tab PO SCH (12:59)
--- NOTE | 2017-01-07 15:48 | PN ---
DATE: 01/07/2017 SUBJECTIVE: The patient is in bed, in no acute distress, nontoxic. PHYSICAL EXAMINATION VITAL SIGNS: Temperature is 97, blood pressure is 116/60, respiratory rate of 18. HEENT: Unremarkable. NECK: Supple. LUNGS: Decreased breath sounds. HEART: Normal S1 and S2. ABDOMEN: Soft. Nontender. LABORATORY DATA: Reveals a white count is 9, hemoglobin of 14, platelets of 351. Coagulation is noted. Chemistry reveals a BUN of 50 and creatinine of 1.1. Alkaline phosphatase is 223 and urinalysis is noted. Microbiology reveals the blood cultures are negative. Urine cultures are negative. Review of orders reveals the patient is off of antibiotics. 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 We will follow with you. Yehuda Valentino MD
--- NOTE | 2017-01-07 15:58 | PN ---
DATE: SUBJECTIVE: The patient has no complaints. She appears comfortable. She is in mild sinus tachycardia on her monitor. PHYSICAL EXAMINATION: VITAL SIGNS: Blood pressure 171/79, heart rate 102, temperature is 98.5, and respirations 22. HEENT: Normocephalic. CHEST: Absent breath sounds over the bases. HEART: S1 and S2, regular, and distant. ABDOMEN; Soft. EXTREMITIES: 2+ pitting edema. LABORATORY DATA: Yesterday's hemoglobin and hematocrit, white count and platelet count are within normal limits. Today's blood sugars are within normal limits. ASSESSMENT: 1. Cardiomyopathy. 2. Right subclavian deep venous thrombosis. 3. Improved bilateral leg cellulitis. 4. Hypothyroidism. 5. Mild sinus tachycardia, which is physiologic. 6. Bilateral pleural effusion. RECOMMENDATIONS: Continue Cozaar 12.5 mg once a day, Feosol 1 tablet daily, Lanoxin 0.125 mg daily, Lasix 20 mg q.6 h., Lopressor 12.5 mg twice a day, Synthroid 125 mcg once a day. Cesar Kinney MD
[2017-01-07] MEDS: Insulin Detemir 100 units/ml Vial (Levemir) SC SCH (21:40)
[2017-01-08] MEDS: Pantoprazole 40 mg EC Tab PO SCH (05:43)
[2017-01-08] MEDS: Insulin Lispro (humaLOG) LOW Coverage SC SCH ×4 (08:28→22:16)
[2017-01-08] MEDS: Iron Complex Polysacch 150mg Cap PO SCH (10:03)
[2017-01-08] MEDS: Levothyroxine 125 MCG TAB PO SCH (10:05)
[2017-01-08 10:30] LABS: BASO # 0.03 K/mm3 (0.0-2.0); BASO % 0.4 % (0.0-3.0); EOS # 0.2 (0.0-0.7); EOS % 3.2 % (1.5-5.0); GRAN # 4.65 (1.4-6.5); GRAN % 62.6 % (50.0-68.0); HEMATOCRIT 37.5 % (36.0-48.0); LYMPH # 1.9 (1.2-3.4); LYMPH % 26.1 % (22.0-35.0); MEAN CELL VOLUME 86.2 fl (80.0-105.0); MEAN CORPUSCULAR HEMOGLOBIN 27.8 pg (25.0-35.0); MEAN CORPUSCULAR HGB CONC 32.3 g/dl (31.0-37.0); MEAN PLATELET VOLUME 9.9 fl (7.0-11.0); MONO # 0.6 (0.1-0.6); MONO % 7.7 % (1.0-6.0); RED CELL DISTRIBUTION WIDTH 18.2 % (11.5-14.5); WHITE BLOOD COUNT 7.4 10^3/ul (4.5-11.0)
[2017-01-08 10:51] LABS: ALB/GLOB RATIO 1.2 (1.1-1.8); ALKALINE PHOSPHATASE 179 U/L (38-126); ALT/SGPT 40 U/L (7-56); AST/SGOT 27 U/L (14-36); BILIRUBIN,TOTAL 0.6 mg/dL (0.2-1.3); BLOOD UREA NITROGEN 31 mg/dL (7-21); CALCIUM 9.4 mg/dL (8.4-10.5); CARBON DIOXIDE 34 mmol/L (21-33); CHLORIDE 94 mmol/L (98-107); GFR AFRICAN-AMERICAN > 60; GLUCOSE,RANDOM 84 mg/dL (70-110); MAGNESIUM 1.7 mg/dL (1.7-2.2); PHOSPHOROUS 3.2 mg/dL (2.5-4.5); POTASSIUM 3.5 mmol/L (3.6-5.0); SODIUM 138 mmol/L (132-148); TOTAL PROTEIN 6.8 g/dL (5.8-8.3)
--- NOTE | 2017-01-08 11:08 | CP.PCM.PN ---
Subjective - Date & Time of Evaluation Date of Evaluation: 01/08/17 Time of Evaluation: 11:03 - Subjective Subjective: Patient with severe systolic CHF w/ MR, admitted with acute decompensation, acute renal failure, hyponatremia; Patient reports breathing well; continues to report leg pain; ambulating short distances; Objective - Vital Signs/Intake and Output Vital Signs (last 24 hours): Temp Pulse Resp BP Pulse Ox 97.6 F 105 H 20 110/60 94 L 01/08/17 06:00 01/08/17 10:04 01/08/17 06:00 01/08/17 10:04 01/08/17 06:00 Intake and Output: 01/08/17 01/08/17 06:59 18:59 Intake Total 360 Output Total 1600 Balance -1240 - Medications Medications: Current Medications Apixaban (Eliquis) 5 mg PO BID [facility] PRN Reason: Protocol Last Admin: 01/08/17 10:02 Dose: 5 mg Bumetanide (Bumex) 1 mg PO Q8 [facility] Last Admin: 01/08/17 05:43 Dose: 1 mg Clonazepam (Klonopin) 0.5 mg PO DAILY [facility] PRN Reason: Protocol Last Admin: 01/08/17 10:03 Dose: 0.5 mg Digoxin (Lanoxin) 0.125 mg PO 1400 [facility] Last Admin: 01/07/17 12:59 Dose: 0.125 mg Ferrous Sulfate (Feosol) 324 mg PO DAILY [facility] Last Admin: 01/08/17 10:03 Dose: 324 mg Gabapentin (Neurontin) 100 mg PO BID [facility] PRN Reason: Protocol Last Admin: 01/08/17 10:02 Dose: 100 mg Insulin Detemir (Levemir) 25 unit SC HS [facility] Last Admin: 01/07/17 21:40 Dose: 25 unit Insulin Human Lispro (Humalog Low) 0 units SC ACHS [facility] PRN Reason: Protocol Last Admin: 01/08/17 08:28 Dose: 1 units Levothyroxine Sodium (Synthroid) 125 mcg PO DAILY [facility] Last Admin: 01/08/17 10:05 Dose: 125 mcg Losartan Potassium (Cozaar) 12.5 mg PO DAILY [facility] Last Admin: 01/08/17 10:03 Dose: 12.5 mg Metoprolol Tartrate (Lopressor) 12.5 mg PO BID [facility] Last Admin: 01/08/17 10:04 Dose: 12.5 mg Ondansetron HCl (Zofran Inj) 4 mg IVP Q4H PRN PRN Reason: Nausea/Vomiting Last Admin: 01/02/17 10:05 Dose: 4 mg Pantoprazole Sodium (Protonix Ec Tab) 40 mg PO 0600 [facility] Last Admin: 01/08/17 05:43 Dose: 40 mg Polysaccharide Iron Complex (Ferrex-150) 150 mg PO DAILY [facility] Last Admin: 01/08/17 10:03 Dose: 150 mg Quetiapine Fumarate (Seroquel) 50 mg PO AMHS [facility] PRN Reason: Protocol Last Admin: 01/08/17 10:04 Dose: 50 mg Spironolactone (Aldactone) 25 mg PO BID [facility] Tramadol HCl (Ultram) 50 mg PO Q8 PRN PRN Reason: Pain, moderate (4-7) Last Admin: 01/08/17 10:05 Dose: 50 mg - Labs Labs: 01/08/17 10:20 01/08/17 10:20 PT 11.9 Seconds (9.9-11.8) H 12/13/16 16:30 INR 1.10 (0.93-1.08) H 12/13/16 16:30 APTT 27.1 Seconds (23.7-30.8) 12/13/16 16:30 - Constitutional Appears: Non-toxic, No Acute Distress - Head Exam Head Exam: NORMAL INSPECTION - Eye Exam Eye Exam: Normal appearance. absent: Scleral icterus - ENT Exam ENT Exam: Mucous Membranes Moist - Respiratory Exam Respiratory Exam: absent: Rales, Rhonchi Additional comments: decreased breath sounds at bases; - Cardiovascular Exam Additional comments: systolic murmur present; no gallop - GI/Abdominal Exam GI & Abdominal Exam: Soft. absent: Distended - Extremities Exam Additional comments: markedly edematous legs; - Neurological Exam Neurological Exam: Alert, Awake - Skin Skin Exam: Warm. absent: Cyanosis Assessment and Plan (1) CHF exacerbation Assessment & Plan: Acutely decompensated systolic CHF; has chronic decompensation but acute component overall improved of late; weights decreased with increased diuretic frequency; transitioning to PO bumex in preparation for d/c; -d/c IV lasix -continue PO bumex 1 mg q8h; may need to increase to 2 mg if weights begin to increase; -restarting aldactone 25 mg bid Status: Acute (2) Pleural effusion Assessment & Plan: Stable, continue diuretics as above; Status: Chronic (3) Hyponatremia Assessment & Plan: Stable despite being off tolvaptan, monitor; Status: Acute (4) Hyperglycemia Status: Resolved (5) Prerenal azotemia Assessment & Plan: Improved; contine diuretics as above; Status: Acute (6) Metabolic alkalosis Assessment & Plan: Alkalosis increasing; aldactone being restarted; Status: Acute
--- NOTE | 2017-01-08 11:12 | CP.PCM.PN ---
Subjective - Date & Time of Evaluation Date of Evaluation: 01/07/17 Time of Evaluation: 12:00 - Subjective Subjective: Patient reports breathing improved; Objective - Vital Signs/Intake and Output Vital Signs (last 24 hours): Temp Pulse Resp BP Pulse Ox 97.6 F 105 H 20 110/60 94 L 01/08/17 06:00 01/08/17 10:04 01/08/17 06:00 01/08/17 10:04 01/08/17 06:00 Intake and Output: 01/08/17 01/08/17 06:59 18:59 Intake Total 360 Output Total 1600 Balance -1240 - Medications Medications: Current Medications Apixaban (Eliquis) 5 mg PO BID [facility] PRN Reason: Protocol Last Admin: 01/08/17 10:02 Dose: 5 mg Bumetanide (Bumex) 1 mg PO Q8 [facility] Last Admin: 01/08/17 05:43 Dose: 1 mg Clonazepam (Klonopin) 0.5 mg PO DAILY [facility] PRN Reason: Protocol Last Admin: 01/08/17 10:03 Dose: 0.5 mg Digoxin (Lanoxin) 0.125 mg PO 1400 [facility] Last Admin: 01/07/17 12:59 Dose: 0.125 mg Ferrous Sulfate (Feosol) 324 mg PO DAILY [facility] Last Admin: 01/08/17 10:03 Dose: 324 mg Gabapentin (Neurontin) 100 mg PO BID [facility] PRN Reason: Protocol Last Admin: 01/08/17 10:02 Dose: 100 mg Insulin Detemir (Levemir) 25 unit SC HS [facility] Last Admin: 01/07/17 21:40 Dose: 25 unit Insulin Human Lispro (Humalog Low) 0 units SC ACHS [facility] PRN Reason: Protocol Last Admin: 01/08/17 08:28 Dose: 1 units Levothyroxine Sodium (Synthroid) 125 mcg PO DAILY [facility] Last Admin: 01/08/17 10:05 Dose: 125 mcg Losartan Potassium (Cozaar) 12.5 mg PO DAILY [facility] Last Admin: 01/08/17 10:03 Dose: 12.5 mg Metoprolol Tartrate (Lopressor) 12.5 mg PO BID [facility] Last Admin: 01/08/17 10:04 Dose: 12.5 mg Ondansetron HCl (Zofran Inj) 4 mg IVP Q4H PRN PRN Reason: Nausea/Vomiting Last Admin: 01/02/17 10:05 Dose: 4 mg Pantoprazole Sodium (Protonix Ec Tab) 40 mg PO 0600 [facility] Last Admin: 01/08/17 05:43 Dose: 40 mg Polysaccharide Iron Complex (Ferrex-150) 150 mg PO DAILY [facility] Last Admin: 01/08/17 10:03 Dose: 150 mg Quetiapine Fumarate (Seroquel) 50 mg PO AMHS [facility] PRN Reason: Protocol Last Admin: 01/08/17 10:04 Dose: 50 mg Spironolactone (Aldactone) 25 mg PO BID [facility] Tramadol HCl (Ultram) 50 mg PO Q8 PRN PRN Reason: Pain, moderate (4-7) Last Admin: 01/08/17 10:05 Dose: 50 mg - Labs Labs: 01/08/17 10:20 01/08/17 10:20 PT 11.9 Seconds (9.9-11.8) H 12/13/16 16:30 INR 1.10 (0.93-1.08) H 12/13/16 16:30 APTT 27.1 Seconds (23.7-30.8) 12/13/16 16:30 - Constitutional Appears: Non-toxic, No Acute Distress - Head Exam Head Exam: NORMAL INSPECTION - Eye Exam Eye Exam: Normal appearance. absent: Scleral icterus - ENT Exam ENT Exam: Mucous Membranes Moist - Respiratory Exam Additional comments: decreased breath sounds at bases; - Cardiovascular Exam Cardiovascular Exam: absent: Gallop Additional comments: systolic murmur present; - GI/Abdominal Exam GI & Abdominal Exam: Soft. absent: Distended - Extremities Exam Additional comments: markedly edematous legs; - Neurological Exam Neurological Exam: Alert, Awake - Psychiatric Exam Psychiatric exam: absent: Agitated - Skin Skin Exam: Warm. absent: Cyanosis Assessment and Plan (1) CHF exacerbation Assessment & Plan: Severe systolic dysfunction w/ MR; weights improving with diuresis; will start PO bumex 1 mg q8h and hold IV lasix; Status: Acute (2) Pleural effusion Assessment & Plan: Relatively stable on exam; continue aggressive diuresis; Status: Chronic (3) Hyponatremia Assessment & Plan: Stable despite being off tolvaptan; awaiting new labs; Status: Acute (4) Hyperglycemia Status: Resolved (5) Prerenal azotemia Assessment & Plan: Somewhat improved but awaiting new labs; continue diuretics as above; Status: Acute (6) Metabolic alkalosis Assessment & Plan: Stable; aldactone stopped due to mild hyperkalemia, awaiting new labs; Status: Acute
--- NOTE | 2017-01-08 11:56 | PN ---
DATE: 01/08/2017 SUBJECTIVE: The patient is in bed, in no acute distress. Nontoxic. PHYSICAL EXAMINATION: VITAL SIGNS: Temperature is 97, blood pressure is 100/60 respiratory rate of 20, heart rate of 97. HEENT: Unremarkable. NECK: Supple. LUNGS: Decreased breath sounds. HEART: Normal S1 and S2. ABDOMEN: Soft. nontender. LABORATORY DATA: Reveals a white count is 9.9, hemoglobin of 14, and platelets are 351, creatinine is 1.1. Microbiology reveals the blood cultures are negative, urine cultures are negative. ASSESSMENT AND PLAN: This is a 51-year-old female with bilateral lower extremity edema, venous stasis, chronic congestive heart failure, superimposed cellulitis and urinary tract infection with Klebsiella and Pseudomonas, status post severe sepsis with hypoxic ventilatory dependent respiratory failure due to bilateral healthcare-associated pneumonia, in hyperosmolar state, acute pancreatitis and history of vancomycin-resistant Enterococcus, diabetes, hypertension, currently off of antibiotics, afebrile. If the heparin lock is not being used, recommend we discontinue the heparin lock to minimize development of nosocomial infections. Review of medications confirms no antibiotics at this time. Yehuda Valentino MD
[2017-01-08] MEDS: Digoxin 125 mcg (0.125 mg) Tab PO SCH (13:00)
--- NOTE | 2017-01-08 13:24 | PN ---
DATE: SUBJECTIVE: The patient has no complaint today. She is in mild sinus tachycardia on her monitor. PHYSICAL EXAMINATION VITAL SIGNS: Blood pressure 109/63, heart rate 106, temperature 97.7, respirations 20. HEENT: Normocephalic. CHEST: Absent breath sounds at the bases. HEART: S1 and S2 regular. EXTREMITIES: Bilateral leg cellulitis. LABORATORY DATA: Hemoglobin, hematocrit, white count and platelet count today are within normal limit. Today's potassium is 3.5, BUN and creatinine at 31 and 0.8. ASSESSMENT: 1. Congestive heart failure. 2. Improved prerenal azotemia. 3. Borderline hypokalemia. 4. Bilateral leg cellulitis. 5. Bilateral pleural effusion. 6. Diabetes mellitus. RECOMMENDATIONS: Continue Aldactone 25 mg twice a day, Bumex 1 mg q. 8 hours, Cozaar 12.5 mg once a day, Eliquis 5 mg twice a day, Lanoxin 0.125 mg orally daily, Lopressor 12.5 mg twice a day, Synthroid 125 mcg once a day. Cesar Kinney MD
--- NOTE | 2017-01-08 13:42 | CP.PCM.PN ---
<Gin Pires - Last Filed: 01/08/17 13:51> Subjective - Date & Time of Evaluation Date of Evaluation: 01/08/17 Time of Evaluation: 09:30 - Subjective Subjective: Hospitalist Service Progress Note: Patient seen and examined at bedside. Per nursing no acute events overnight. Patient complaining of leg pain, offers no other complaints at this time. OOB to chair, tolerating diet. Denies headaches, dizziness, cp, palpitations, sob, urinary symptoms, changes in bowel habits. Objective - Vital Signs/Intake and Output Vital Signs (last 24 hours): Temp Pulse Resp BP Pulse Ox 97.7 F 106 H 20 109/63 94 L 01/08/17 12:00 01/08/17 12:00 01/08/17 12:00 01/08/17 12:00 01/08/17 06:00 Intake and Output: 01/08/17 01/08/17 06:59 18:59 Intake Total 360 Output Total 1600 Balance -1240 - Medications Medications: Current Medications Apixaban (Eliquis) 5 mg PO BID [facility] PRN Reason: Protocol Last Admin: 01/08/17 10:02 Dose: 5 mg Bumetanide (Bumex) 1 mg PO Q8 [facility] Last Admin: 01/08/17 05:43 Dose: 1 mg Clonazepam (Klonopin) 0.5 mg PO DAILY [facility] PRN Reason: Protocol Last Admin: 01/08/17 10:03 Dose: 0.5 mg Digoxin (Lanoxin) 0.125 mg PO 1400 [facility] Last Admin: 01/07/17 12:59 Dose: 0.125 mg Ferrous Sulfate (Feosol) 324 mg PO DAILY [facility] Last Admin: 01/08/17 10:03 Dose: 324 mg Gabapentin (Neurontin) 100 mg PO BID [facility] PRN Reason: Protocol Last Admin: 01/08/17 10:02 Dose: 100 mg Insulin Detemir (Levemir) 25 unit SC HS [facility] Last Admin: 01/07/17 21:40 Dose: 25 unit Insulin Human Lispro (Humalog Low) 0 units SC ACHS [facility] PRN Reason: Protocol Last Admin: 01/08/17 12:01 Dose: Not Given Levothyroxine Sodium (Synthroid) 125 mcg PO DAILY [facility] Last Admin: 01/08/17 10:05 Dose: 125 mcg Losartan Potassium (Cozaar) 12.5 mg PO DAILY [facility] Last Admin: 01/08/17 10:03 Dose: 12.5 mg Metoprolol Tartrate (Lopressor) 12.5 mg PO BID [facility] Last Admin: 01/08/17 10:04 Dose: 12.5 mg Ondansetron HCl (Zofran Inj) 4 mg IVP Q4H PRN PRN Reason: Nausea/Vomiting Last Admin: 01/02/17 10:05 Dose: 4 mg Pantoprazole Sodium (Protonix Ec Tab) 40 mg PO 0600 [facility] Last Admin: 01/08/17 05:43 Dose: 40 mg Polysaccharide Iron Complex (Ferrex-150) 150 mg PO DAILY [facility] Last Admin: 01/08/17 10:03 Dose: 150 mg Quetiapine Fumarate (Seroquel) 50 mg PO AMHS [facility] PRN Reason: Protocol Last Admin: 01/08/17 10:04 Dose: 50 mg Spironolactone (Aldactone) 25 mg PO BID [facility] Last Admin: 01/08/17 12:44 Dose: 25 mg Tramadol HCl (Ultram) 50 mg PO Q8 PRN PRN Reason: Pain, moderate (4-7) Last Admin: 01/08/17 10:05 Dose: 50 mg - Labs Labs: 01/08/17 10:20 01/08/17 10:20 PT 11.9 Seconds (9.9-11.8) H 12/13/16 16:30 INR 1.10 (0.93-1.08) H 12/13/16 16:30 APTT 27.1 Seconds (23.7-30.8) 12/13/16 16:30 - Constitutional Appears: Well, No Acute Distress - Head Exam Head Exam: ATRAUMATIC, NORMAL INSPECTION - Eye Exam Eye Exam: EOMI, Normal appearance Pupil Exam: NORMAL ACCOMODATION - ENT Exam ENT Exam: Mucous Membranes Moist - Neck Exam Neck Exam: Full ROM - Respiratory Exam Respiratory Exam: Decreased Breath Sounds, NORMAL BREATHING PATTERN. absent: Rales, Rhonchi, Wheezes - Cardiovascular Exam Cardiovascular Exam: Tachycardia, +S1, +S2 - GI/Abdominal Exam GI & Abdominal Exam: Distended, Soft. absent: Firm, Guarding, Rigid, Tenderness - Extremities Exam Additional comments: +2 pitting edema in both lower extremities Leg erythematous with dry skin changes +pedal pulses - Back Exam Back Exam: NORMAL INSPECTION - Neurological Exam Neurological Exam: Alert, Awake, Oriented x3 - Psychiatric Exam Psychiatric exam: Anxious, Normal Affect, Normal Mood - Skin Skin Exam: Normal Color, Warm Assessment and Plan - Assessment and Plan (Free Text) Assessment: 51 y/o F with PMH of DM2, CHF with EF of 30%, HTN, non-ischemic cardiomyopathy, chronic pleural effusion, DVT, Recurrent PE on Eliquis, hypothyroidism, and schizophrenia was admitted with acute on chronic systolic heart failure exacerbation with LE edema and superimposed lower extremity cellulitis. Patient has completed 7 days of IV Cefazolin and has no fever or leukocytosis. Patient' s LE edema/pain has much improved since the addition of Dobutamine. Patient is OOB to chair with LE elevated. Patient states she is amenable to physical therapy. Patient re-started on low-dose antipsychotics for worsening agitation and for underlying affective disorder. 12/28/16 patient complained of chest pain , stat EKG and troponin negative for ACS. 12/29/16 patient's dobutamine drip was discontinued. Patient was OOB and walking today. Plan: 1. Acute on Chronic CHF exacerbation - EF approx 30% - Clinically improving - Continue Bumex 1mg Q8H - Lasix IV held, Aldactone restarted - Continue Losartan - Continue Leg elevation - OOB and walking with assistance - Cardiology on consult, f/u recommendations 2. B/L LE cellulitis -Continue diuresis -Pain control prn - Ultram 3. Diabetes Mellitus - Levemir 25 U HS - ISS low-dose and accuchecks - Neurontin 100 mg BID for diabetic neuropathy 3. Atrial Fibrillation, rate controlled - Eliquis 5 mg BID - Metropolol 12.5 BID - Continue Digoxin 4. Hyponatremia - Na 138 today, off tolvaptan - Will continue to monitor - Continue fluid restriction - Nephrology on consult, f/u recommendations 5. Hypo/hyperkalemia -Potassium 3.5 today -Patient restarted on aldactone today -Will continue to monitor at this time 6. Hypothyroidism - Synthroid 125 mcg daily 7. Schizophrenia and labile mood - Seroquel 50 mg HS and Klonopin - Per yolette patient is competent and able to make her own decisions - Psychiatry, Dr. Polanco consulted, appreciate recommendations. GI/DVT prophylaxis: - Protonix 40 mg PO daily - Eliquis 5mg BID <Amador,Annmarie Prieto - Last Filed: 01/08/17 16:39> Objective - Vital Signs/Intake and Output Vital Signs (last 24 hours): Temp Pulse Resp BP Pulse Ox 97.7 F 106 H 20 109/63 94 L 01/08/17 12:00 01/08/17 12:00 01/08/17 12:00 01/08/17 12:00 01/08/17 06:00 Intake and Output: 01/08/17 01/08/17 06:59 18:59 Intake Total 360 480 Output Total 1600 550 Balance -1240 -70 - Medications Medications: Current Medications Apixaban (Eliquis) 5 mg PO BID [facility] PRN Reason: Protocol Last Admin: 01/08/17 10:02 Dose: 5 mg Bumetanide (Bumex) 1 mg PO Q8 [facility] Last Admin: 01/08/17 05:43 Dose: 1 mg Clonazepam (Klonopin) 0.5 mg PO DAILY [facility] PRN Reason: Protocol Last Admin: 01/08/17 10:03 Dose: 0.5 mg Digoxin (Lanoxin) 0.125 mg PO 1400 [facility] Last Admin: 01/07/17 12:59 Dose: 0.125 mg Ferrous Sulfate (Feosol) 324 mg PO DAILY [facility] Last Admin: 01/08/17 10:03 Dose: 324 mg Gabapentin (Neurontin) 100 mg PO BID [facility] PRN Reason: Protocol Last Admin: 01/08/17 10:02 Dose: 100 mg Insulin Detemir (Levemir) 25 unit SC HS [facility] Last Admin: 01/07/17 21:40 Dose: 25 unit Insulin Human Lispro (Humalog Low) 0 units SC ACHS [facility] PRN Reason: Protocol Last Admin: 01/08/17 12:01 Dose: Not Given Levothyroxine Sodium (Synthroid) 125 mcg PO DAILY [facility] Last Admin: 01/08/17 10:05 Dose: 125 mcg Losartan Potassium (Cozaar) 12.5 mg PO DAILY [facility] Last Admin: 01/08/17 10:03 Dose: 12.5 mg Metoprolol Tartrate (Lopressor) 12.5 mg PO BID [facility] Last Admin: 01/08/17 10:04 Dose: 12.5 mg Ondansetron HCl (Zofran Inj) 4 mg IVP Q4H PRN PRN Reason: Nausea/Vomiting Last Admin: 01/02/17 10:05 Dose: 4 mg Pantoprazole Sodium (Protonix Ec Tab) 40 mg PO 0600 [facility] Last Admin: 01/08/17 05:43 Dose: 40 mg Polysaccharide Iron Complex (Ferrex-150) 150 mg PO DAILY [facility] Last Admin: 01/08/17 10:03 Dose: 150 mg Quetiapine Fumarate (Seroquel) 50 mg PO AMHS [facility] PRN Reason: Protocol Last Admin: 01/08/17 10:04 Dose: 50 mg Spironolactone (Aldactone) 25 mg PO BID [facility] Last Admin: 01/08/17 12:44 Dose: 25 mg Tramadol HCl (Ultram) 50 mg PO Q8 PRN PRN Reason: Pain, moderate (4-7) Last Admin: 01/08/17 10:05 Dose: 50 mg - Labs Labs: 01/08/17 10:20 01/08/17 10:20 PT 11.9 Seconds (9.9-11.8) H 12/13/16 16:30 INR 1.10 (0.93-1.08) H 12/13/16 16:30 APTT 27.1 Seconds (23.7-30.8) 12/13/16 16:30 Attending/Attestation - Attestation I have personally seen and examined this patient.: Yes I have fully participated in the care of the patient.: Yes I have reviewed all pertinent clinical information, including history, physical exam and plan: Yes Notes (Text): I have seen and examined patient at bedside with the resident. Agree with the note above with the following additions/ exceptions: Briefly this is 51 year old female with history of DM-2, CHF (EF~30%), HTN, NICMP, chronic pleural effusion, 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 Leg edema has improved today. Weight is down to 166 lbs. 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 Plan to start bumex and restart aldactone. Patient feels good. Discussed with custom furrier. Continue Lopressor and Cozaar. Continue levemir for DM-2. Patient is refusing to go back to senior care. PT is recommending [facility] vs [facility]. [employer] or [employer] is in contact with sister in law to make disposition arrangements. Patient will follow up with PMD Dr. valdez upon discharge. Dr Annmarie Amador
[2017-01-08] MEDS ORDERED: Potassium Chloride 20 mEq ER Tab PO ONE (22:14)
[2017-01-08] MEDS: Insulin Detemir 100 units/ml Vial (Levemir) SC SCH (22:24)
[2017-01-09] MEDS: Pantoprazole 40 mg EC Tab PO SCH (06:14)
[2017-01-09 06:29] VITALS: TEMP 97.7; O2SAT 93
[2017-01-09] MEDS: Insulin Lispro (humaLOG) LOW Coverage SC SCH ×3 (07:45→17:45)
[2017-01-09 07:49] LABS: BASO # 0.07 K/mm3 (0.0-2.0); EOS # 0.3 (0.0-0.7); EOS % 4.4 % (1.5-5.0); GRAN # 3.67 (1.4-6.5); GRAN % 51.5 % (50.0-68.0); HEMATOCRIT 40.6 % (36.0-48.0); LYMPH # 2.4 (1.2-3.4); LYMPH % 34.3 % (22.0-35.0); MEAN CELL VOLUME 85.8 fl (80.0-105.0); MEAN CORPUSCULAR HEMOGLOBIN 27.7 pg (25.0-35.0); MEAN CORPUSCULAR HGB CONC 32.3 g/dl (31.0-37.0); MONO # 0.6 (0.1-0.6); MONO % 8.8 % (1.0-6.0); RED CELL DISTRIBUTION WIDTH 18.1 % (11.5-14.5); WHITE BLOOD COUNT 7.1 10^3/ul (4.5-11.0)
[2017-01-09 08:04] LABS: ALB/GLOB RATIO 1.2 (1.1-1.8); ALKALINE PHOSPHATASE 190 U/L (38-126); ALT/SGPT 42 U/L (7-56); AST/SGOT 31 U/L (14-36); BILIRUBIN,TOTAL 0.6 mg/dL (0.2-1.3); BLOOD UREA NITROGEN 29 mg/dL (7-21); CALCIUM 9.3 mg/dL (8.4-10.5); CARBON DIOXIDE 32 mmol/L (21-33); CHLORIDE 93 mmol/L (98-107); GFR AFRICAN-AMERICAN > 60; GLUCOSE,RANDOM 106 mg/dL (70-110); MAGNESIUM 1.6 mg/dL (1.7-2.2); PHOSPHOROUS 3.3 mg/dL (2.5-4.5); POTASSIUM 4.1 mmol/L (3.6-5.0); SODIUM 137 mmol/L (132-148); TOTAL PROTEIN 7.2 g/dL (5.8-8.3)
[2017-01-09] MEDS ORDERED: Magnesium Sulfate 2 GM in Sodium Chloride 0.9% 100 ML IVPB ONE (08:57)
[2017-01-09] MEDS: Levothyroxine 125 MCG TAB PO SCH (10:02)
[2017-01-09] MEDS: Iron Complex Polysacch 150mg Cap PO SCH (10:04)
--- NOTE | 2017-01-09 11:14 | CP.PCM.PN ---
Subjective - Date & Time of Evaluation Date of Evaluation: 01/09/17 Time of Evaluation: 10:45 - Subjective Subjective: Patient w/ CHF w/ severe systolic dysfunction w/ MR, htn, dm, admitted with severely decompensated CHF, nephrology following for OLLIE and hyponatremia; Patient reports leg pain improved; urinating well; wanting to go home; Objective - Vital Signs/Intake and Output Vital Signs (last 24 hours): Temp Pulse Resp BP Pulse Ox 97.7 F 112 H 20 114/66 93 L 01/09/17 06:00 01/09/17 10:04 01/09/17 06:00 01/09/17 10:04 01/09/17 06:00 Intake and Output: 01/09/17 01/09/17 06:59 18:59 Intake Total 840 Output Total 750 Balance 90 - Medications Medications: Current Medications Apixaban (Eliquis) 5 mg PO BID [facility] PRN Reason: Protocol Last Admin: 01/09/17 10:04 Dose: 5 mg Bumetanide (Bumex) 1 mg PO Q8 [facility] Last Admin: 01/09/17 06:17 Dose: 1 mg Clonazepam (Klonopin) 0.5 mg PO DAILY [facility] PRN Reason: Protocol Last Admin: 01/09/17 10:04 Dose: 0.5 mg Digoxin (Lanoxin) 0.125 mg PO 1400 [facility] Last Admin: 01/08/17 13:00 Dose: 0.125 mg Ferrous Sulfate (Feosol) 324 mg PO DAILY [facility] Last Admin: 01/09/17 10:04 Dose: 324 mg Gabapentin (Neurontin) 100 mg PO BID [facility] PRN Reason: Protocol Last Admin: 01/09/17 10:01 Dose: 100 mg Insulin Detemir (Levemir) 25 unit SC HS [facility] Last Admin: 01/08/17 22:24 Dose: 25 unit Insulin Human Lispro (Humalog Low) 0 units SC ACHS [facility] PRN Reason: Protocol Last Admin: 01/09/17 07:45 Dose: Not Given Levothyroxine Sodium (Synthroid) 125 mcg PO DAILY [facility] Last Admin: 01/09/17 10:02 Dose: 125 mcg Losartan Potassium (Cozaar) 12.5 mg PO DAILY [facility] Last Admin: 01/09/17 10:04 Dose: 12.5 mg Metoprolol Tartrate (Lopressor) 12.5 mg PO BID [facility] Last Admin: 01/09/17 10:03 Dose: 12.5 mg Ondansetron HCl (Zofran Inj) 4 mg IVP Q4H PRN PRN Reason: Nausea/Vomiting Last Admin: 01/02/17 10:05 Dose: 4 mg Pantoprazole Sodium (Protonix Ec Tab) 40 mg PO 0600 [facility] Last Admin: 01/09/17 06:14 Dose: 40 mg Polysaccharide Iron Complex (Ferrex-150) 150 mg PO DAILY [facility] Last Admin: 01/09/17 10:04 Dose: 150 mg Quetiapine Fumarate (Seroquel) 50 mg PO AMHS [facility] PRN Reason: Protocol Last Admin: 01/09/17 10:02 Dose: Not Given Spironolactone (Aldactone) 25 mg PO BID [facility] Last Admin: 01/09/17 10:01 Dose: 25 mg Tramadol HCl (Ultram) 50 mg PO Q8 PRN PRN Reason: Pain, moderate (4-7) Last Admin: 01/08/17 17:49 Dose: 50 mg - Labs Labs: 01/09/17 07:30 01/09/17 07:30 PT 11.9 Seconds (9.9-11.8) H 12/13/16 16:30 INR 1.10 (0.93-1.08) H 12/13/16 16:30 APTT 27.1 Seconds (23.7-30.8) 12/13/16 16:30 - Constitutional Appears: Non-toxic, No Acute Distress - Head Exam Head Exam: NORMAL INSPECTION - Eye Exam Eye Exam: Normal appearance. absent: Scleral icterus - ENT Exam ENT Exam: Mucous Membranes Moist - Respiratory Exam Respiratory Exam: absent: Rales, Rhonchi, Wheezes Additional comments: decreased breath sounds at bases; - Cardiovascular Exam Cardiovascular Exam: Tachycardia, REGULAR RHYTHM. absent: Gallop Additional comments: systolic murmur - GI/Abdominal Exam GI & Abdominal Exam: Soft. absent: Distended, Tenderness - Extremities Exam Additional comments: markedly edematous legs somewhat improved; - Neurological Exam Neurological Exam: Alert, Awake - Psychiatric Exam Psychiatric exam: Agitated - Skin Skin Exam: Normal Color, Warm. absent: Cyanosis Assessment and Plan (1) CHF exacerbation Assessment & Plan: With severe systolic dysfunction and MR; weights stable on current PO diuretic regimen of bumex 1 mg q8h and aldactone 25 mg bid; continue same; f/u w/ cardiology regarding adjustment of B-melissa/ARB, otherwise appears stable for d /c; patient instructed to weight herself daily and should be seen in clinic in 1 week; Status: Acute (2) Pleural effusion Assessment & Plan: Relatively stable on exam, no respiratory distress and not requiring supplemental O2; diuretics as above; Status: Chronic (3) Hyponatremia Assessment & Plan: Resolved; stable despite being off tolvaptan; check bmp in 1 week; Status: Acute (4) Hyperglycemia Status: Resolved (5) Prerenal azotemia Assessment & Plan: Improving; cardiorenal etiology; continue with diuretics as above; Status: Acute (6) Metabolic alkalosis Assessment & Plan: Somewhat improved with aldactone, continue; Status: Acute
--- NOTE | 2017-01-09 11:18 | CP.PCM.DIS ---
Provider - Provider Date of Admission: 12/13/16 21:51 Attending physician: Will Vela MD Primary care physician: Richardson Valdez MD Time Spent in preparation of Discharge (in minutes): 40 Hospital Course - Lab Results Lab Results: Most Recent Lab Values WBC 7.1 10^3/ul (4.5-11.0) 01/09/17 07:30 RBC 4.73 10^6/uL (3.5-6.1) 01/09/17 07:30 Hgb 13.1 g/dL (12.0-16.0) 01/09/17 07:30 Hct 40.6 % (36.0-48.0) 01/09/17 07:30 MCV 85.8 fl (80.0-105.0) 01/09/17 07:30 MCH 27.7 pg (25.0-35.0) 01/09/17 07:30 MCHC 32.3 g/dl (31.0-37.0) 01/09/17 07:30 RDW 18.1 % (11.5-14.5) H 01/09/17 07:30 Plt Count 398 10^3/uL (120.0-450.0) 01/09/17 07:30 MPV 10.0 fl (7.0-11.0) 01/09/17 07:30 Gran % 51.5 % (50.0-68.0) 01/09/17 07:30 Lymph % (Auto) 34.3 % (22.0-35.0) 01/09/17 07:30 [place] % (Auto) 8.8 % (1.0-6.0) H 01/09/17 07:30 Eos % (Auto) 4.4 % (1.5-5.0) 01/09/17 07:30 Baso % (Auto) 1.0 % (0.0-3.0) 01/09/17 07:30 Gran # 3.67 (1.4-6.5) 01/09/17 07:30 Lymph # 2.4 (1.2-3.4) 01/09/17 07:30 [place] # 0.6 (0.1-0.6) 01/09/17 07:30 Eos # 0.3 (0.0-0.7) 01/09/17 07:30 Baso # 0.07 K/mm3 (0.0-2.0) 01/09/17 07:30 ESR 20 mm/hr (0.0-20.0) 12/15/16 09:40 PT 11.9 Seconds (9.9-11.8) H 12/13/16 16:30 INR 1.10 (0.93-1.08) H 12/13/16 16:30 APTT 27.1 Seconds (23.7-30.8) 12/13/16 16:30 pCO2 31 mm/Hg (35-45) L 12/29/16 16:55 pO2 56.0 mm/Hg (80-100) L 12/29/16 16:55 HCO3 27.8 mmol/L (21-28) 12/29/16 16:55 ABG pH 7.56 (7.35-7.45) H 12/29/16 16:55 ABG Total CO2 28.8 mmol.L (22-28) H 12/29/16 16:55 ABG O2 Saturation 93.9 % (95-98) L 12/29/16 16:55 ABG O2 Content 16.3 ML/dl (15-23) 12/29/16 16:55 ABG Base Excess 5.9 mmol/L (-2.0-3.0) H 12/29/16 16:55 ABG Hemoglobin 12.8 g/dL (11.7-17.4) 12/29/16 16:55 ABG Carboxyhemoglobin 2.6 % (0.5-1.5) H 12/29/16 16:55 POC ABG HHb (Measured) 5.9 % (0-5) H 12/29/16 16:55 ABG Methemoglobin 0.9 % (0.0-3.0) 12/29/16 16:55 ABG O2 Capacity 17.4 mL/dl (16-24) 12/29/16 16:55 VBG pH 7.33 (7.32-7.43) 12/13/16 16:54 VBG pCO2 55.0 (40-60) 12/13/16 16:54 VBG HCO3 29.0 mmol/l (21-28) H 12/13/16 16:54 VBG Total CO2 30.7 mmol.L (22-28) H 12/13/16 16:54 VBG O2 Sat (Calc) 62.3 % (40-65) 12/13/16 16:54 VBG Base Excess 1.9 mmol/L (0.0-2.0) 12/13/16 16:54 VBG Potassium 4.1 mmol/L (3.6-5.2) 12/13/16 16:54 Hgb O2 Saturation 90.6 % (95.0-98.0) L 12/29/16 16:55 Sodium 128.0 mmol/L (132-148) L 12/13/16 16:54 Chloride 90.0 mmol/L (98-107) L 12/13/16 16:54 Glucose 424 mg/dl (65-105) H* D 12/13/16 16:54 Lactate 1.8 mmol/L (0.7-2.1) 12/13/16 16:54 FiO2 21.0 % 12/29/16 16:55 Sodium 137 mmol/L (132-148) 01/09/17 07:30 Potassium 4.1 mmol/L (3.6-5.0) 01/09/17 07:30 Chloride 93 mmol/L (98-107) L 01/09/17 07:30 Carbon Dioxide 32 mmol/L (21-33) 01/09/17 07:30 Anion Gap 16 (10-20) 01/09/17 07:30 BUN 29 mg/dL (7-21) H 01/09/17 07:30 Creatinine 0.8 mg/dL (0.5-1.4) 01/09/17 07:30 Est GFR ( Amer) > 60 01/09/17 07:30 Est GFR (Non-Af Amer) > 60 01/09/17 07:30 POC Glucose (mg/dL) 99 mg/dL (65-110) 01/09/17 07:32 Random Glucose 106 mg/dL (70-110) 01/09/17 07:30 Lactic Acid 1.8 mmol/L (0.7-2.1) 12/31/16 13:30 Calcium 9.3 mg/dL (8.4-10.5) 01/09/17 07:30 Phosphorus 3.3 mg/dL (2.5-4.5) 01/09/17 07:30 Magnesium 1.6 mg/dL (1.7-2.2) L 01/09/17 07:30 Iron 39 ug/dL (45-180) L 12/15/16 09:40 TIBC 342 ug/dL (265-497) 12/15/16 09:40 % Saturation 11 % (20-55) L 12/15/16 09:40 Ferritin 343.0 ng/mL 12/15/16 09:40 Total Bilirubin 0.6 mg/dL (0.2-1.3) 01/09/17 07:30 AST 31 U/L (14-36) 01/09/17 07:30 ALT 42 U/L (7-56) 01/09/17 07:30 Alkaline Phosphatase 190 U/L (38-126) H 01/09/17 07:30 Lactate Dehydrogenase 371 U/L (333-699) 12/13/16 16:30 Total Creatine Kinase 20 U/L (35-230) L 12/13/16 16:30 Troponin I 0.02 ng/mL D 12/28/16 14:00 C-React Prot High Sens > 15.00 mg/L (1.00-3.00) H 12/15/16 09:40 NT-Pro-B Natriuret Pep 4640 pg/mL (0-450) H 12/13/16 16:30 Total Protein 7.2 g/dL (5.8-8.3) 01/09/17 07:30 Albumin 3.8 g/dL (3.0-4.8) 01/09/17 07:30 Globulin 3.3 gm/dL 01/09/17 07:30 Albumin/Globulin Ratio 1.2 (1.1-1.8) 01/09/17 07:30 Free T4 1.22 ng/dL (0.78-2.19) 12/15/16 09:40 TSH 3rd Generation 5.77 mIU/mL (0.46-4.68) H 12/15/16 09:40 Venous Blood Potassium 4.1 mmol/L (3.6-5.2) 12/13/16 16:54 Urine Color Yellow (YELLOW) 12/13/16 19:21 Urine Appearance Clear (CLEAR) 12/13/16 19:21 Urine pH 6.0 (4.7-8.0) 12/13/16 19:21 Ur Specific [place] 1.010 (1.005-1.035) 12/13/16 19:21 Urine Protein Negative mg/dL (<30 mg/dL) 12/13/16 19:21 Urine Glucose (UA) 500 mg/dL (NEGATIVE) H 12/13/16 19:21 Urine Ketones Negative mg/dL (NEGATIVE) 12/13/16 19:21 Urine Blood Negative (NEGATIVE) 12/13/16 19:21 Urine Nitrate Negative (NEGATIVE) 12/13/16 19:21 Urine Bilirubin Negative (NEGATIVE) 12/13/16 19:21 Urine Urobilinogen 0.2 E.U./dL (<1 E.U./dL) 12/13/16 19:21 Ur Leukocyte Esterase Negative Jason/uL (NEGATIVE) 12/13/16 19:21 Urine Osmolality 364 mosm/kg (50-645) 12/14/16 16:25 Ur Random Sodium 9 meq/L 12/14/16 16:25 Digoxin 1.3 ng/mL (0.8-2.0) 01/04/17 11:50 - Hospital Course Hospital Course: 51 year old female with history of DM-2, CHF (EF~30%), HTN, NICMP, chronic pleural effusion, 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 Leg edema has improved today. Weight is down to 166 lbs. 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 Plan to start bumex and restart aldactone. Patient feels good. Discussed with irrigation tax assessor collector. Continue Lopressor and Cozaar. Continue levemir for DM-2. Patient is refusing to go back to long term. PT is recommending [facility] vs [facility]. manager php is in contact with sister in law to make disposition arrangements. Patient will follow up with PMD Dr. valdez upon discharge. Discharge Exam - Head Exam Head Exam: NORMAL INSPECTION Discharge Plan - Discharge Medications Prescriptions: Apixaban [Eliquis] 5 mg PO BID #60 tab Bumetanide [Bumex] 1 mg PO Q8H #42 tab clonazePAM [Klonopin] 0.5 mg PO DAILY #14 tab Digoxin [Lanoxin] 0.125 mg PO 1400 #30 tab Ferrous Sulfate [Feosol] 324 mg PO DAILY #30 ect Gabapentin [Neurontin] 100 mg PO BID #28 cap Levothyroxine [Synthroid] 125 mcg PO DAILY #30 tab Losartan [Cozaar] 12.5 mg PO DAILY #30 tab MetFORMIN [glucoPHAGE] 1,000 mg PO BID #60 tab Metoprolol Tartrate [Lopressor] 12.5 mg PO BID #60 tab Spironolactone [Aldactone] 25 mg PO BID #60 tab - Follow Up Plan Condition: STABLE Disposition: HOME/ ROUTINE Instructions: Heart Failure (DC), Pulmonary Edema (DC), Ascites (DC) Additional Instructions: 1. continue medications as prescribed. 2. follow up with Dr. Valdez in one week (01/16/2017). 3. repeat BMP in one week 4. follow up with nephrology (kidney doctor) and cardiology (heart doctor). 5. if symptoms persist return to the nearest emergency room. Referrals: Cesar Kinney MD [Staff Provider] - Akash French MD [Staff Provider] - Richardson Valdez MD [Primary Care Provider] -
[2017-01-09 12:12] VITALS: BP 98/65; RESP 18
[2017-01-09] MEDS: Digoxin 125 mcg (0.125 mg) Tab PO SCH (14:03)
[2017-01-09 14:04] VITALS: PULSE 99
[2017-01-09 15:42] VITALS: PULSE 104
--- NOTE | 2017-01-09 18:15 | PN ---
SUBJECTIVE: The patient is comfortable in bed and she is delighted to be discharged today. The patient will be taken to a friend's house as per the patient's request. The patient refuses to go to subacute rehab. PHYSICAL EXAMINATION VITAL SIGNS: Blood pressure 98/65, heart rate 103, temperature 97.7, and respirations 18. HEENT: Normocephalic. CHEST: Absent breath sounds over the bases. HEART: S1 and S2 regular. EXTREMITIES: 2+ pitting edema. LABORATORY DATA: Hemoglobin, hematocrit, white count, and platelet count are within normal limit. Today's SMA-7 is within normal limits except for chloride of 93 and BUN of 29. Magnesium is normal at 1.6. ASSESSMENT: 1. Cardiomyopathy. 2. Bilateral leg cellulitis. 3. Right subclavian deep venous thrombosis. 4. Uncontrolled diabetes mellitus. 5. Hypomagnesemia. CONDITIONS: Continue Aldactone 25 mg twice a day, Bumex 1 mg q.8 hours, Eliquis 5 mg twice a day, Cozaar 12.5 mg once a day, Lanoxin 0.125 mg daily, Lopressor 12.5 mg twice a day. The patient has received 2 g of magnesium sulphate replacement today. Cesar Kinney MD
== END 2017-01-09 18:03 | disposition home or self-care (01) | DRG 544 ==
LOC: ED 15:58 → ERH 21:51 → 2RNO 12-14 00:35 → 3RNO 12-14 20:28 → 2RSO 12-23 17:41
PROVIDERS: ADMIT Internal Medicine; ATTEND Internal Medicine
DX: I11.0 Hypertensive heart disease with heart failure (principal); I50.23 Acute on chronic systolic (congestive) heart failure; L03.116 Cellulitis of left lower limb; L03.115 Cellulitis of right lower limb; N17.9 Acute kidney failure, unspecified; E87.4 Mixed disorder of acid-base balance; E11.40 Type 2 diabetes mellitus with diabetic neuropathy, unspecified; E87.1 Hypo-osmolality and hyponatremia; I42.0 Dilated cardiomyopathy; E11.65 Type 2 diabetes mellitus with hyperglycemia; I48.0 Paroxysmal atrial fibrillation; G43.909 Migraine, unspecified, not intractable, without status migrainosus; E87.5 Hyperkalemia; E87.6 Hypokalemia; J44.9 Chronic obstructive pulmonary disease, unspecified; E03.9 Hypothyroidism, unspecified; K21.9 Gastro-esophageal reflux disease without esophagitis; I87.2 Venous insufficiency (chronic) (peripheral); I25.10 Atherosclerotic heart disease of native coronary artery without angina pectoris; D50.9 Iron deficiency anemia, unspecified; E83.42 Hypomagnesemia; E78.00 Pure hypercholesterolemia, unspecified; I34.0 Nonrheumatic mitral (valve) insufficiency; F60.0 Paranoid personality disorder; F31.9 Bipolar disorder, unspecified; F20.9 Schizophrenia, unspecified; Z79.4 Long term (current) use of insulin; Z79.01 Long term (current) use of anticoagulants; Z87.440 Personal history of urinary (tract) infections; Z87.01 Personal history of pneumonia (recurrent); Z85.72 Personal history of non-Hodgkin lymphomas; Z86.718 Personal history of other venous thrombosis and embolism; Z86.711 Personal history of pulmonary embolism; Z92.21 Personal history of antineoplastic chemotherapy; Z90.49 Acquired absence of other specified parts of digestive tract; Z87.891 Personal history of nicotine dependence

== ENCOUNTER 2017-01-26 22:31 | Inpatient (IN) | payer MEDICAID ==
--- NOTE | 2017-01-26 23:24 | ED PDOC ---
Arrival/HPI - General Time Seen by Provider: 01/26/17 23:20 Historian: Patient - History of Present Illness Narrative History of Present Illness (Text): 01/26/17 23:12 Citlali Penn is a 51 year old female, whose past medical history includes CHF, blood clot in left arm, and diabetes, who presents to the emergency department complaining of pain and swelling to bilateral LE for about one week and pain to skin underneath bilateral breasts with associated shortness of breath and coughing for about 2 days. Patient states that she was prescribed water pills by PMD which brings no relief and has not taken any pain medications for symptoms. Patient has no other complaints at this time. PMD: Dr. Valdez Time/Duration: 1 week (bilateral LE pain and swelling), < week (bilateral breast pain and shortness of breath ) Symptom Onset: Gradual Symptom Course: Unchanged Severity Level: Mild Activities at Onset: Light Context: Home Past Medical History - Provider Review Nursing Documentation Reviewed: Yes - Past History Past History: No Previous - Infectious Disease Hx of Infectious Diseases: None - Tetanus Immunization Tetanus Immunization: Unknown - Cardiac Hx Cardiac Disorders: Yes Hx Congestive Heart Failure: Yes Hx Hypertension: Yes - Pulmonary Hx Chronic Obstructive Pulmonary Disease (COPD): Yes - Neurological Hx Neurological Disorder: No Hx Seizures: No - HEENT Hx HEENT Disorder: No - Renal Hx Renal Disorder: No - Endocrine/Metabolic Hx Diabetes Mellitus Type 2: Yes Hx Hypothyroidism: Yes - Hematological/Oncological Hx Blood Disorders: No - Integumentary Hx Dermatological Disorder: No Hx Basal Cell Carcinoma: No Hx Eczema: No Hx Melanoma: No Hx Psoriasis: No Hx Squamous Cell Carcinoma: No - Musculoskeletal/Rheumatological Hx Falls: No - Gastrointestinal Hx Gastrointestinal Disorders: Yes Hx Crohn's Disease: No Hx Diverticulitis: Yes Hx Gastroesophageal Reflux: Yes - Genitourinary/Gynecological Hx Genitourinary Disorders: No Hx Sexually Transmitted Diseases: No - Psychiatric Hx Anxiety: Yes Hx Bipolar Disorder: Yes Hx Depression: Yes Hx Substance Use: No - Past Surgical History Past Surgical History: No Previous - Surgical History Hx Appendectomy: No Hx Cholecystectomy: Yes Hx Coronary Stent: No Other/Comment: neck mass excision - Anesthesia Hx Anesthesia: Yes Hx Anesthesia Reactions: No Hx Malignant Hyperthermia: No - Suicidal Assessment Feels Threatened In Home Enviroment: No Family/Social History - Physician Review Nursing Documentation Reviewed: Yes Family/Social History: No Known Family HX Smoking Status: Former Smoker Hx Alcohol Use: No Hx Substance Use: No Substance used: cocaine Hx Substance Use Treatment: Yes (NARCOTICS ANONYMOUS) Allergies/Home Meds Allergies/Adverse Reactions: Allergies No Known Allergies Allergy (Verified 01/26/17 23:33) Review of Systems - Physician Review All systems were reviewed & negative as marked: Yes - Review of Systems Constitutional: absent: Fevers, Night Sweats Eyes: absent: Vision Changes ENT: absent: Hearing Changes Respiratory: SOB, Cough Cardiovascular: absent: Chest Pain Gastrointestinal: absent: Abdominal Pain Genitourinary Female: absent: Dysuria, Frequency Musculoskeletal: Other (bilateral lower extremity pain and swelling ). absent: Arthralgias Skin: Other (pain to skin underneath bilateral breasts) Neurological: absent: Headache, Dizziness Endocrine: absent: Diaphoresis Hemo/Lymphatic: absent: Adenopathy Psychiatric: absent: Depression Physical Exam Vital Signs Reviewed: Yes Vital Signs Temp Pulse Resp BP Pulse Ox 01/27/17 03:01 133 H 26 H 140/82 100 01/26/17 22:56 99.1 F 78 20 133/92 H 96 Temperature: Afebrile Blood Pressure: Hypertensive Pulse: Regular Respiratory Rate: Tachypneic Appearance: Positive for: Well-Appearing, Non-Toxic, Comfortable Pain Distress: None Mental Status: Positive for: Alert and Oriented X 3 - Systems Exam Head: Present: Atraumatic, Normocephalic Pupils: Present: PERRL Extroacular Muscles: Present: EOMI Conjunctiva: Present: Normal Mouth: Present: Moist Mucous Membranes Neck: Present: Normal Range of Motion Respiratory/Chest: Present: Rales, Rhonchi, Tachypneic. No: Clear to Auscultation, Respiratory Distress, Accessory Muscle Use Cardiovascular: Present: Regular Rate and Rhythm, Normal S1, S2. No: Murmurs Abdomen: Present: Normal Bowel Sounds. No: Tenderness, Distention, Peritoneal Signs, Rebound, Guarding Upper Extremity: Present: Normal Inspection. No: Cyanosis, Edema Lower Extremity: Present: CALF TENDERNESS, NORMAL PULSES, Normal ROM, Tenderness (b/l lower leg tenderness), Swelling (bilateral lower extremity edema , erythema and scaling), Erythema, Neurovascularly Intact Neurological: Present: GCS=15, Speech Normal Skin: Present: Warm, Other (Erythematous plaque under breasts bilaterally, right greater than left) Psychiatric: Present: Alert, Oriented x 3 Medical Decision Making ED Course and Treatment: 01/27/17 03:13 51yr old female with DM, CHF, Hep c. with sob and b/l lower leg swelling. cbc; wbc; 11.2 cmp; glucose; 608 trop; bnp: [id number] cxr; b/l pleural effusions, vascular congestion venous duplex b/l; no dvt verbal report from US tech. ekg; Sinus tachycardia at 130 bpm left bundle branch block unchanged from prior EKG. insulin 10units sq laxis 40mg IV blood cultures pending. vancomycin and zosyn started iv BIPAP ordered. pt refusing bipap case discussed with dr. valdez he would like patient admitted to hospitalist service. case discussed with dr. awad; accepts admission case discussed with dr. winters. impression; CHF exacerbation, Tachycardia, Cellulitis, hyperglycemia admit to tele. 01/27/17 03:19 - Lab Interpretations Lab Results: 01/27/17 01:30 01/27/17 01:30 Lab Results 01/27/17 01:30: PT 14.2 H, INR 1.30 H, APTT 28.1 01/27/17 01:30: WBC 11.2 H D, RBC 5.04, Hgb 14.4, Hct 42.5, MCV 84.3, MCH 28.6, MCHC 33.9, RDW 17.3 H, Plt Count 328, MPV 11.8 H, Gran % 75.8 H, Lymph % (Auto) 16.9 L, [place] % (Auto) 6.7 H, Eos % (Auto) 0.3 L, Baso % (Auto) 0.3, Gran # 8.46 H, Lymph # 1.9, [place] # 0.8 H, Eos # 0.0, Baso # 0.03 01/27/17 01:30: Sodium 128 L, Potassium 4.6, Chloride 87 L, Carbon Dioxide 27, Anion Gap 19, BUN 20, Creatinine 0.8, Est GFR ( Amer) > 60, Est GFR (Non- Af Amer) > 60, Random Glucose 608 H* D, Calcium 9.8, Total Bilirubin 1.2, AST 26 , ALT 32, Alkaline Phosphatase 165 H, Lactate Dehydrogenase 571, Total Creatine Kinase 35, Troponin I 0.02, NT-Pro-B Natriuret Pep 56053 H, Total Protein 7.7, Albumin 4.3, Globulin 3.4, Albumin/Globulin Ratio 1.3 - RAD Interpretation Radiology Orders: 01/26/17 23:31 DUPLEX LOWER EXTRM VEIN BILAT [US] Stat 01/26/17 23:32 CHEST PORTABLE [RAD] Stat - Medication Orders Current Medication Orders: Furosemide (Lasix) 40 mg IVP STAT STA Stop: 01/27/17 03:11 Vancomycin HCl (Vancomycin 1gm) 1 gm in 250 mls @ 167 mls/hr IVPB STAT STA PRN Reason: Protocol Stop: 01/27/17 04:19 Discontinued Medications Furosemide (Lasix) 40 mg IVP STAT STA Stop: 01/27/17 02:50 Insulin Human Regular (Humulin R) 10 units SC STAT STA Stop: 01/27/17 02:29 - Scribe Statement The provider has reviewed the documentation as recorded by the Gaby Mike Provider Scribe Attestation: All medical record entries made by the Stefanibkailee were at my direction and personally dictated by me. I have reviewed the chart and agree that the record accurately reflects my personal performance of the history, physical exam, medical decision making, and the department course for this patient. I have also personally directed, reviewed, and agree with the discharge instructions and disposition. Disposition/Present on Arrival - Present on Arrival Any Indicators Present on Arrival: Yes History of DVT/PE: No History of Uncontrolled Diabetes: Yes Urinary Catheter: No History Surgical Site Infection Following: None - Disposition Have Diagnosis and Disposition been Completed?: Yes Diagnosis: CHF (congestive heart failure), Hyperglycemia, Tachycardia, Leg edema, Cellulitis, Pleural effusion Disposition: HOSPITALIZED Disposition Time: 03:18 Patient Plan: Admission Condition: FAIR Discharge Instructions (ExitCare): Heart Failure (ED), Cellulitis (ED)
[2017-01-26 23:33] VITALS: BMI 25.6
[2017-01-27 01:50] LABS: BASO # 0.03 K/mm3 (0.0-2.0); BASO % 0.3 % (0.0-3.0); EOS % 0.3 % (1.5-5.0); GRAN # 8.46 (1.4-6.5); GRAN % 75.8 % (50.0-68.0); HEMATOCRIT 42.5 % (36.0-48.0); LYMPH # 1.9 (1.2-3.4); LYMPH % 16.9 % (22.0-35.0); MEAN CELL VOLUME 84.3 fl (80.0-105.0); MEAN CORPUSCULAR HEMOGLOBIN 28.6 pg (25.0-35.0); MEAN CORPUSCULAR HGB CONC 33.9 g/dl (31.0-37.0); MEAN PLATELET VOLUME 11.8 fl (7.0-11.0); MONO # 0.8 (0.1-0.6); MONO % 6.7 % (1.0-6.0); RED CELL DISTRIBUTION WIDTH 17.3 % (11.5-14.5); WHITE BLOOD COUNT 11.2 10^3/ul (4.5-11.0)
[2017-01-27 01:58] LABS: ALB/GLOB RATIO 1.3 (1.1-1.8); ALKALINE PHOSPHATASE 165 U/L (38-126); ALT/SGPT 32 U/L (7-56); AST/SGOT 26 U/L (14-36); BILIRUBIN,TOTAL 1.2 mg/dL (0.2-1.3); BLOOD UREA NITROGEN 20 mg/dL (7-21); CALCIUM 9.8 mg/dL (8.4-10.5); CARBON DIOXIDE 27 mmol/L (21-33); CHLORIDE 87 mmol/L (98-107); GFR AFRICAN-AMERICAN > 60; POTASSIUM 4.6 mmol/L (3.6-5.0); SODIUM 128 mmol/L (132-148); TOTAL PROTEIN 7.7 g/dL (5.8-8.3)
[2017-01-27 02:04] LABS: INR 1.3 (0.93-1.08); PARTIAL THROMBOPLASTIN TIME 28.1 Seconds (25.1-36.5)
[2017-01-27 02:06] LABS: GLUCOSE,RANDOM 608 mg/dL (70-110)
[2017-01-27 02:10] LABS: TROPONIN I 0.02 ng/mL
[2017-01-27] MEDS ORDERED: Insulin Regular 1 UNITS/0.01 ML ML SC STA ×2 (02:28→06:09)
[2017-01-27] MEDS ORDERED: Vancomycin 1gm in NS 250ml 1 GM/250 ML BAG IVPB STA (02:50)
[2017-01-27] MEDS ORDERED: Piperacillin/Tazobact 3.375 gm 100 ML IVPB STA (02:59)
[2017-01-27] MEDS: Levothyroxine 125 MCG TAB PO SCH (05:30)
[2017-01-27] MEDS: Pantoprazole 40 mg EC Tab PO SCH (05:30)
[2017-01-27] MEDS ORDERED: Insulin Detemir 100 units/ml Vial (Levemir) SC ONE (05:44)
--- NOTE | 2017-01-27 06:01 | CP.PCM.HP ---
<David Mejia - Last Filed: 01/27/17 05:54> History of Present Illness - History of Present Illness History of Present Illness: 51 F with a PMHx of DM2, CHF, HTN, non-ischemic cardiomyopathy, chronic pleural effusion, DVT, PE, hypothyroidism, and schizophrenia presented to the [facility] ED by EMS with complaints of b/l LE swelling and pain. Pt states that her symptoms began roughly one week ago and has been increasingly worsening. Pt also has complaints of rash and itching to the underside of her breasts b/l. Pt states she visited her PMD recently and was prescribed medication to help with the swelling, however she hadn't noticed much of a change in her symptoms and decided to seek further medical attention. Pt denied fever, chills, chest pains , abdominal pains, n/v/d/c or urinary symptoms. Pt admits to a nonproductive cough and sob. PMH: DM2, CHF, HTN, non-ischemic cardiomyopathy, chronic pleural effusion, DVT, PE, hypothyroidism, and schizophrenia PSH: cholecystectomy FMH: Noncontributory Social hx: Denies tobacco, alcohol, or illict drug use. Lives in senior care Allergies: NKDA Medications: klonipine, spironolactone, seroquel, metoprolol, metformin, losartan, synthroid, gabapentin, feosol, digoxin, bumex, elaquis PMD: Dr. Roman Present on Admission - Present on Admission Any Indicators Present on Admission: Yes History of DVT/PE: Yes Review of Systems - Review of Systems Review of Systems: as per HPI otherwise negative Past Patient History - Infectious Disease Hx of Infectious Diseases: None - Tetanus Immunizations Tetanus Immunization: Unknown - Past Medical History & Family History Past Medical History?: Yes - Past Social History Smoking Status: Former Smoker - CARDIAC Hx Cardiac Disorders: Yes Hx Congestive Heart Failure: Yes Hx Hypertension: Yes - PULMONARY Hx Chronic Obstructive Pulmonary Disease (COPD): Yes - NEUROLOGICAL Hx Neurological Disorder: No Hx Seizures: No - HEENT Hx HEENT Problems: No - RENAL Hx Chronic Kidney Disease: No - ENDOCRINE/METABOLIC Hx Diabetes Mellitus Type 2: Yes Hx Hypothyroidism: Yes - HEMATOLOGICAL/ONCOLOGICAL Hx Blood Disorders: No - INTEGUMENTARY Hx Dermatological Problems: No Hx Basil Cell: No Hx Eczema: No Hx Melanoma: No Hx Psoriasis: No Hx Squamous Cell: No - MUSCULOSKELETAL/RHEUMATOLOGICAL Hx Falls: No - GASTROINTESTINAL Hx Gastrointestinal Disorders: Yes Hx Crohn's Disease: No Hx Diverticulitis: Yes Hx Gastroesophageal Reflux: Yes - GENITOURINARY/GYNECOLOGICAL Hx Genitourinary Disorders: No Hx Sexually Transmitted Disorders: No - PSYCHIATRIC Hx Anxiety: Yes Hx Bipolar Disorder: Yes Hx Depression: Yes Hx Substance Use: No - SURGICAL HISTORY Hx Appendectomy: No Hx Cholecystectomy: Yes Hx Coronary Stent: No Other/Comment: neck mass excision - ANESTHESIA Hx Anesthesia: Yes Hx Anesthesia Reactions: No Hx Malignant Hyperthermia: No Meds Allergies/Adverse Reactions: Allergies Allergy/AdvReac Type Severity Reaction Status Date / Time No Known Allergies Allergy Verified 01/26/17 23:33 Physical Exam - Constitutional Appears: No Acute Distress - Head Exam Head Exam: ATRAUMATIC, NORMAL INSPECTION, NORMOCEPHALIC - Eye Exam Eye Exam: EOMI, Normal appearance, PERRL Pupil Exam: NORMAL ACCOMODATION, PERRL - ENT Exam ENT Exam: Mucous Membranes Moist, Normal Exam - Neck Exam Neck exam: Positive for: Normal Inspection - Respiratory Exam Respiratory Exam: Rales, NORMAL BREATHING PATTERN - Cardiovascular Exam Cardiovascular Exam: REGULAR RHYTHM, +S1, +S2 - GI/Abdominal Exam GI & Abdominal Exam: Normal Bowel Sounds, Soft. absent: Tenderness - Extremities Exam Extremities exam: Positive for: calf tenderness, pedal edema, tenderness Additional comments: erythematous b/l le, +3 pitting edema - Neurological Exam Neurological exam: Alert, CN II-XII Intact, Oriented x3, Reflexes Normal - Psychiatric Exam Psychiatric exam: Normal Affect, Normal Mood - Skin Skin Exam: Dry, Intact, Normal Color, Warm Results - Vital Signs Recent Vital Signs: Last Vital Signs Temp 99.1 F 01/26/17 22:56 Pulse 133 H 01/27/17 03:01 Resp 26 H 01/27/17 03:01 BP 140/82 01/27/17 03:11 Pulse Ox 100 01/27/17 03:01 - Labs Result Diagrams: 01/27/17 01:30 01/27/17 01:30 Assessment & Plan - Assessment and Plan (Free Text) Assessment: 51 F with a PMHx of DM2, CHF, HTN, non-ischemic cardiomyopathy, chronic pleural effusion, DVT, PE, hypothyroidism, and schizophrenia presented to the [facility] ED by EMS with complaints of b/l LE swelling and pain. Acute on chronic CHF exacerbation EF 30%, lasix 40 mg IV x2 in ED BNP 10,400 resume home meds digoxin, spironolactone, losartan, iv lasix leg elevation, OOB continue to monitor B/L Cellulitis Continue diuresis ID consulted, Dr. Pascal, Appreciate reccs Vanc and zosyn given in ED fu PCT, ESR WBC 11.2, afebrile B/L breast rash likely candidiasis nystatin cream ID consulted DM BG 608, 10 unit insulin in ED > 391 15 u levemir once med Humalog ISS consider 25 u levemir FU Ha1c HTN Currently HD stable continue home meds continue to monitor Hypothyroidism conitnue home med, synthroid fu tsh AFib Elaquis 5 mg BID Digoxin continue to monitor GI DVT ppx Reviewed and discussed with attending <Reinaldo Schultz - Last Filed: 01/27/17 06:41> Results - Vital Signs Recent Vital Signs: Last Vital Signs Temp 99.1 F 01/26/17 22:56 Pulse 132 H 01/27/17 06:20 Resp 26 H 01/27/17 03:01 BP 130/85 01/27/17 06:20 Pulse Ox 100 01/27/17 03:01 - Labs Result Diagrams: 01/27/17 01:30 01/27/17 01:30 Labs: Laboratory Results - last 24 hr 01/27/17 01/27/17 04:03 06:03 POC Glucose (mg/dL) 391 H 425 H* Attending/Attestation - Attestation I have personally seen and examined this patient.: Yes I have fully participated in the care of the patient.: Yes I have reviewed all pertinent clinical information: Yes
[2017-01-27] MEDS ORDERED: Metoprolol 1 mg/ml Inj IVP ONE (06:07)
[2017-01-27] MEDS: guaiFENesin 100 mg/5 ml Syrup UD PO PRN (06:20)
[2017-01-27] MEDS ORDERED: Insulin Lispro (HUMAlog) HIGH Coverage SC SCH (07:30)
[2017-01-27] MEDS ORDERED: Insulin Lispro (humaLOG) MEDIUM Coverage SC SCH (07:30)
--- NOTE | 2017-01-27 08:46 | RAD ---
HISTORY: sob COMPARISON: 12/13/2016 FINDINGS: LUNGS: No active pulmonary disease. PLEURA: Bilateral small to moderate pleural effusion, unchanged. CARDIOVASCULAR: Normal. OSSEOUS STRUCTURES: No significant abnormalities. VISUALIZED UPPER ABDOMEN: Normal. OTHER FINDINGS: None. IMPRESSION: Bilateral small to moderate pleural effusion. No infiltrate.
[2017-01-27] MEDS: Nystatin-Triamcinolone Cream(30 gm) TOP SCH ×2 (09:47→17:40)
[2017-01-27] MEDS: Insulin Reg-HIGH-Coverage SC SCH ×3 (11:13→22:52)
--- NOTE | 2017-01-27 12:24 | US ---
HISTORY: Leg pain and swelling. Evaluate for DVT PHYSICIAN(S): Kal Peña MD. TECHNIQUE: Duplex sonography and color-flow Doppler with graded compression were used to evaluate the deep venous systems of both lower extremities. FINDINGS: The visualized deep venous systems of both lower extremities are sonographically normal and compressible. Normal wave forms and augmentation are seen. There is no sonographic evidence for deep venous thrombosis in the visualized segments of both lower extremities. IMPRESSION: No sonographic evidence for deep venous thrombosis in the visualized segments of both lower extremities.
[2017-01-27] MEDS ORDERED: DOBUTamine 500mg/250ml D5W 500 MG/250 ML BAG IV PRN (13:15)
[2017-01-27] MEDS: Digoxin 125 mcg (0.125 mg) Tab PO SCH (14:44)
--- NOTE | 2017-01-27 18:38 | CP.PCM.CON ---
History of Present Illness - History of Present Illness History of Present Illness: Infectious Disease Consultation: January 27, 2017 51 yo female presenting with worsening bilateral LE swelling and pain. The patient has an extensive medical history that includes DM, CHF, HTN, non-ischemic cardiomyopathy, chronic pleural effusion, DVT, PE, hypothyroidism, and schizophrenia. The patient is currently living in a fci. The patient was set up for living arrangements on her last hospitalization one month ago. Unclear what happened as the patient is unwilling to talk about it. PMHx: DM, CHF, HTN, non-ischemic cardiomyopathy, chronic pleural effusion, DVT, PE, hypothyroidism, and schizophrenia. PSHx: cholecystectomy Allergies: NKDA Social hx: Denied tobacco, EtOH, or illicit drug use Active Medications Apixaban (Eliquis) 5 mg PO BID [facility] PRN Reason: Protocol Last Admin: 01/27/17 17:34 Dose: 5 mg Bumetanide (Bumex) 1 mg PO Q8H [facility]ELA Last Admin: 01/27/17 05:30 Dose: 1 mg Clonazepam (Klonopin) 0.5 mg PO DAILY [facility] PRN Reason: Protocol Last Admin: 01/27/17 09:45 Dose: 0.5 mg Digoxin (Lanoxin) 0.125 mg PO 1400 [facility] Last Admin: 01/27/17 14:44 Dose: 0.125 mg Ferrous Sulfate (Feosol) 324 mg PO DAILY [facility] Last Admin: 01/27/17 09:45 Dose: 324 mg Furosemide (Lasix) 20 mg IVP Q8 [facility]A Gabapentin (Neurontin) 100 mg PO BID [facility] PRN Reason: Protocol Last Admin: 01/27/17 17:34 Dose: 100 mg Guaifenesin (Robitussin) 100 mg PO Q4H PRN PRN Reason: Cough Last Admin: 01/27/17 06:20 Dose: 100 mg Dobutamine HCl/Dextrose (Dobutamine/Dextrose 5% 500mg/250ml) 500 mg in 250 mls @ 9.525 mls/hr IV .Q24H PRN; Protocol; 5 MCG/KG/MIN PRN Reason: TITRATE PER PROTOCOL Insulin Detemir (Levemir) 25 unit SC HS IZABELA Insulin Human Regular (Humulin R High) 0 units SC ACHS [facility]A PRN Reason: Protocol Last Admin: 01/27/17 17:34 Dose: 10 units Levothyroxine Sodium (Synthroid) 125 mcg PO 0600 [facility] Last Admin: 01/27/17 05:30 Dose: 125 mcg Losartan Potassium (Cozaar) 12.5 mg PO DAILY [facility] Last Admin: 01/27/17 09:46 Dose: 12.5 mg Nystatin/Triamcinolone Acetonide (Nystatin/Triamcinolone Cream) 1 ea TOP BID [facility] Last Admin: 01/27/17 17:40 Dose: Not Given Ondansetron HCl (Zofran Inj) 4 mg IVP Q4H PRN PRN Reason: Nausea/Vomiting Last Admin: 01/27/17 07:35 Dose: 4 mg Pantoprazole Sodium (Protonix Ec Tab) 40 mg PO 0600 [facility] Last Admin: 01/27/17 05:30 Dose: 40 mg Quetiapine Fumarate (Seroquel) 50 mg PO AMHS [facility] PRN Reason: Protocol Last Admin: 01/27/17 09:45 Dose: 50 mg Spironolactone (Aldactone) 25 mg PO BID [facility] Last Admin: 01/27/17 17:34 Dose: 25 mg Family Hx: none given ROS: No fevers, chills, nausea, vomiting, diarrhea, headaches, dizziness, chest pain , abdominal pain, melena, hematuria, hematemesis, hematochezia. Past Patient History - Infectious Disease Hx of Infectious Diseases: None - Tetanus Immunizations Tetanus Immunization: Unknown - Past Medical History & Family History Past Medical History?: Yes - Past Social History Smoking Status: Former Smoker - CARDIAC Hx Cardiac Disorders: Yes Hx Congestive Heart Failure: Yes Hx Hypertension: Yes - PULMONARY Hx Chronic Obstructive Pulmonary Disease (COPD): Yes - NEUROLOGICAL Hx Neurological Disorder: No Hx Seizures: No - HEENT Hx HEENT Problems: No - RENAL Hx Chronic Kidney Disease: No - ENDOCRINE/METABOLIC Hx Diabetes Mellitus Type 2: Yes Hx Hypothyroidism: Yes - HEMATOLOGICAL/ONCOLOGICAL Hx Blood Disorders: No - INTEGUMENTARY Hx Dermatological Problems: No Hx Basil Cell: No Hx Eczema: No Hx Melanoma: No Hx Psoriasis: No Hx Squamous Cell: No - MUSCULOSKELETAL/RHEUMATOLOGICAL Hx Falls: No - GASTROINTESTINAL Hx Gastrointestinal Disorders: Yes Hx Crohn's Disease: No Hx Diverticulitis: Yes Hx Gastroesophageal Reflux: Yes - GENITOURINARY/GYNECOLOGICAL Hx Genitourinary Disorders: No Hx Sexually Transmitted Disorders: No - PSYCHIATRIC Hx Anxiety: Yes Hx Bipolar Disorder: Yes Hx Depression: Yes Hx Substance Use: No - SURGICAL HISTORY Hx Appendectomy: No Hx Cholecystectomy: Yes Hx Coronary Stent: No Other/Comment: neck mass excision - ANESTHESIA Hx Anesthesia: Yes Hx Anesthesia Reactions: No Hx Malignant Hyperthermia: No Meds Allergies/Adverse Reactions: Allergies Allergy/AdvReac Type Severity Reaction Status Date / Time No Known Allergies Allergy Verified 01/26/17 23:33 - Medications Medications: Current Medications Apixaban (Eliquis) 5 mg PO BID [facility] PRN Reason: Protocol Last Admin: 01/27/17 17:34 Dose: 5 mg Bumetanide (Bumex) 1 mg PO Q8H [facility] Last Admin: 01/27/17 05:30 Dose: 1 mg Clonazepam (Klonopin) 0.5 mg PO DAILY [facility] PRN Reason: Protocol Last Admin: 01/27/17 09:45 Dose: 0.5 mg Digoxin (Lanoxin) 0.125 mg PO 1400 [facility] Last Admin: 01/27/17 14:44 Dose: 0.125 mg Ferrous Sulfate (Feosol) 324 mg PO DAILY [facility] Last Admin: 01/27/17 09:45 Dose: 324 mg Furosemide (Lasix) 20 mg IVP Q8 IZ[facility]A Gabapentin (Neurontin) 100 mg PO BID [facility] PRN Reason: Protocol Last Admin: 01/27/17 17:34 Dose: 100 mg Guaifenesin (Robitussin) 100 mg PO Q4H PRN PRN Reason: Cough Last Admin: 01/27/17 06:20 Dose: 100 mg Dobutamine HCl/Dextrose (Dobutamine/Dextrose 5% 500mg/250ml) 500 mg in 250 mls @ 9.525 mls/hr IV .Q24H PRN; Protocol; 5 MCG/KG/MIN PRN Reason: TITRATE PER PROTOCOL Insulin Detemir (Levemir) 25 unit SC HS IZABELA Insulin Human Regular (Humulin R High) 0 units SC ACHS IZ[facility]EAL PRN Reason: Protocol Last Admin: 01/27/17 17:34 Dose: 10 units Levothyroxine Sodium (Synthroid) 125 mcg PO 0600 [facility] Last Admin: 01/27/17 05:30 Dose: 125 mcg Losartan Potassium (Cozaar) 12.5 mg PO DAILY [facility] Last Admin: 01/27/17 09:46 Dose: 12.5 mg Nystatin/Triamcinolone Acetonide (Nystatin/Triamcinolone Cream) 1 ea TOP BID [facility] Last Admin: 01/27/17 17:40 Dose: Not Given Ondansetron HCl (Zofran Inj) 4 mg IVP Q4H PRN PRN Reason: Nausea/Vomiting Last Admin: 01/27/17 07:35 Dose: 4 mg Pantoprazole Sodium (Protonix Ec Tab) 40 mg PO 0600 [facility] Last Admin: 01/27/17 05:30 Dose: 40 mg Quetiapine Fumarate (Seroquel) 50 mg PO AMHS [facility] PRN Reason: Protocol Last Admin: 01/27/17 09:45 Dose: 50 mg Spironolactone (Aldactone) 25 mg PO BID [facility] Last Admin: 01/27/17 17:34 Dose: 25 mg Physical Exam - Constitutional Appears: No Acute Distress, Chronically Ill - Head Exam Head Exam: ATRAUMATIC, NORMOCEPHALIC - Eye Exam Eye Exam: EOMI, PERRL Pupil Exam: NORMAL ACCOMODATION, PERRL - ENT Exam ENT Exam: Mucous Membranes Moist, Normal External Ear Exam, TM's Normal Bilaterally - Neck Exam Neck exam: Positive for: Full Rom, Normal Inspection - Respiratory Exam Respiratory Exam: Decreased Breath Sounds, NORMAL BREATHING PATTERN. absent: Rales, Rhonchi, Wheezes - Cardiovascular Exam Cardiovascular Exam: REGULAR RHYTHM, RRR, +S1, +S2 - GI/Abdominal Exam GI & Abdominal Exam: Normal Bowel Sounds, Soft. absent: Distended, Tenderness - Extremities Exam Extremities exam: Positive for: joint swelling, pedal edema Additional comments: erythematous b/l le, +3 pitting edema, chronic venous stasis - Neurological Exam Neurological exam: Alert, CN II-XII Intact, Oriented x3 - Psychiatric Exam Psychiatric exam: Agitated, Depressed - Skin Skin Exam: Dry, Warm Results - Vital Signs Recent Vital Signs: Last Vital Signs Temp 98.3 F 01/27/17 12:00 Pulse 88 01/27/17 14:00 Resp 18 01/27/17 12:00 BP 135/75 01/27/17 17:35 Pulse Ox 96 01/27/17 06:17 - Labs Result Diagrams: 01/27/17 01:30 01/27/17 01:30 Labs: Laboratory Results - last 24 hr 01/27/17 01/27/17 01/27/17 04:03 06:03 07:27 ESR POC Glucose (mg/dL) 391 H 425 H* 434 H* Hemoglobin A1c TSH 3rd Generation Digoxin 01/27/17 01/27/17 01/27/17 08:00 08:00 08:00 ESR 29 H POC Glucose (mg/dL) Hemoglobin A1c 12.0 H TSH 3rd Generation 9.91 H Digoxin 01/27/17 01/27/17 01/27/17 08:00 11:10 16:47 ESR POC Glucose (mg/dL) 381 H 335 H Hemoglobin A1c TSH 3rd Generation Digoxin 0.8 01/27/17 17:42 ESR POC Glucose (mg/dL) 240 H Hemoglobin A1c TSH 3rd Generation Digoxin Assessment & Plan - Assessment and Plan (Free Text) Assessment: 51 yo female who is non-compliant with her meds presenting with bilateral lower leg swelling and pain. Uncontrolled CHF. At worse, mild cellulitis. Would hold off on antibiotic therapy and treat CHF at this time. Supportive care. There is a rash under the breasts which is fungal in nature. I would continue with nystatin cream for these areas. Spoke with Dr. Vela regarding case. Thank you for allowing me to participate in the care of the patient, we will follow with you.
--- NOTE | 2017-01-27 21:22 | CON ---
NEPHROLOGY CONSULTATION HISTORY OF PRESENT ILLNESS: The patient is a 51-year-old female with past medical history of hypertension, diabetes, CHF with severe systolic dysfunction and [id number] mitral regurgitation, hypothyroidism, status post PE, schizophrenia/bipolar disorder, discharged earlier this month after admission for acute decompensated CHF. The patient now presenting with complaint of bilateral lower extremity pain and swelling with difficulty ambulating; found to be hyponatremic, nephrology being consulted for the same. The patient was discharged earlier this month after a prolonged admission with decompensated systolic CHF also with admission in October with prolonged hospital course with the same diagnosis; the patient was discharged to stay with a friend after last admission and at that time was discharged on an extensive diuretic regimen despite having persistent leg swelling and bilateral pleural effusions which were thought to be relatively stable and in the setting of severe cardiomyopathy, it was felt that the patient would not be amendable for more aggressive measures. The patient upon encounter late this morning is very drowsy, repeatedly dozing off when asked questions and unable to give appropriate responses; apparently was alert earlier this morning and able to tolerate her breakfast and able to ambulate to commode. The patient apparently was kicked out of her friend's home and has been residing in a long-term for the last couple of weeks; the patient reports having taken her medications; however, it appears she has not been taking her insulin as there is likely difficulty with storage of insulin in the refrigerator at the long-term. Otherwise currently, further history is not available on my interview per H and P done this morning. The patient also having rash and itching on the underside of her breasts bilaterally; otherwise the patient denying fever, chills, chest pain, abdominal pain, nausea, vomiting, diarrhea, or urinary symptoms (although per nursing staff the patient was feeling nauseous this morning although did not vomit). PAST MEDICAL HISTORY: As above. Also with lymphoma treated with chemotherapy about 7 years ago. PAST SURGICAL HISTORY: Status post cholecystectomy. FAMILY MEDICAL HISTORY: Brother with multiple sclerosis. SOCIAL HISTORY: Previous illicit drug use. REVIEW OF SYSTEMS: As per HPI, otherwise limited. PHYSICAL EXAMINATION: VITAL SIGNS: This morning blood pressure 134/66, heart rate 112, respirations 19, temperature 97, O2 sat 96% on room air. GENERAL: The patient is very sleepy, repeatedly dosing off during interview, otherwise in no apparent distress, sitting comfortably in chair. HEENT: Moist mucous membranes. Nonicteric. RESPIRATORY: Decreased breath sounds bilaterally at bases; shallow breath otherwise clear to auscultation bilaterally. No rales, no rhonchi, no wheezes. CARDIOVASCULAR: Heart sounds S1 and S2 normal. No murmurs or gallops. No rubs. GASTROINTESTINAL: Abdomen soft, nontender, nondistended. GENITOURINARY: Unable to appreciate any bladder distention, although limited exam with the patient sitting in chair. EXTREMITIES: Marked bilateral lower leg edema extending to the thighs although upper leg edema is much improved from previous visits. SKIN: Warm. No cyanosis, erythematous lower legs mildly. PSYCHIATRIC: Unable to assess due to the patient drowsiness. LABORATORY DATA: Labs from early this morning WBC 11.2, hemoglobin 14.4, hematocrit 42.5, platelets 328. Chemistry panel: Sodium 128, potassium 4.6, chloride 87, bicarb 27, BUN 20, creatinine 0.8, glucose 608, calcium, 9.8, T. bili 1.2, AST 26, ALT 32. ProBNP 10,400. Albumin 4.3. TSH 9.91. Coags: PTT 28.1, INR 1.30. Chest x-ray: [id number] bilateral pleural effusions, otherwise clear. ASSESSMENT AND PLAN: 1. Congestive heart failure with systolic dysfunction. The patient with chronically decompensated systolic congestive heart failure, but appears to be optimized medically with diuretics, ilfiz-stfkqzzmnmm-mgflotdrkhf system blockade, and beta blockers; overall volume status appears relatively stable. The patient on previous encounters has been in florid congestive heart failure with S3 gallops and even in cardiogenic shock, none of which are present currently; the patient was likely taking her p.o. medications on d/ c despite residing in homeless long-term. The patient was on Bumex 1 mg p.o. q.8 hours; for now we will change to Lasix IV 20 mg q.8 hours; q.8 hour dosing is necessary in order to have continuous effect of diuretics; will change back to p.o. Bumex before discharge. Continue Aldactone 25 mg p.o. b.i.d. Continue losartan 12.5 mg daily. Continue metoprolol 12.5 mg b.i.d. Needs daily standing weights. 2. Prerenal azotemia in the setting of severe systolic congestive heart failure with mitral regurgitation. Overall is relatively stable, needs to continue diuretics as mentioned above in order to prevent worsening of cardiorenal etiology of renal dysfunction as previously seen. 3. Hyponatremia. Serum glucose is corrected for hyperglycemia is only mildly low; the patient previously was requiring tolvaptan but with adequate congestive heart failure meds and diuretics had been able to maintain serum sodium in the low-to-mid 130; no need to start tolvaptan at this time, should ensure adequate glycemic control for now. The patient also with hypothyroidism with TSH elevated, continue levothyroxine. 4. Lower extremity edema, again this is relatively stable and overall improved since previous admission erythema is also better than previous admission; awaiting results of lower extremity duplex otherwise no need to over diurese the patient to treat this level of edema. 5. Hypothyroidism, see above. 6. Pleural effusions bilaterally. Overall this is also improved; secondary to severe congestive heart failure, continue diuretics as above. Overall, the patient has multiple complex comorbidities and will need strong social support; prognosis overall is guarded. Thank you for this consult. We will continue to follow closely. Akash Frenhc MD [facility]
[2017-01-27] MEDS: DOBUTamine 500mg/250ml D5W 500 MG/250 ML BAG IV PRN (22:06)
[2017-01-27] MEDS: Insulin Detemir 100 units/ml Vial (Levemir) SC SCH (22:53)
[2017-01-28] MEDS: Levothyroxine 125 MCG TAB PO SCH (06:58)
[2017-01-28] MEDS: Pantoprazole 40 mg EC Tab PO SCH (06:58)
[2017-01-28 08:04] LABS: BASO # 0.03 K/mm3 (0.0-2.0); BASO % 0.2 % (0.0-3.0); EOS # 0.2 (0.0-0.7); EOS % 1.3 % (1.5-5.0); GRAN # 10.41 (1.4-6.5); GRAN % 81.3 % (50.0-68.0); HEMATOCRIT 38.7 % (36.0-48.0); LYMPH # 1.7 (1.2-3.4); LYMPH % 12.9 % (22.0-35.0); MEAN CELL VOLUME 84.9 fl (80.0-105.0); MEAN CORPUSCULAR HEMOGLOBIN 28.1 pg (25.0-35.0); MEAN CORPUSCULAR HGB CONC 33.1 g/dl (31.0-37.0); MONO # 0.6 (0.1-0.6); MONO % 4.3 % (1.0-6.0); RED CELL DISTRIBUTION WIDTH 17.3 % (11.5-14.5); WHITE BLOOD COUNT 12.8 10^3/ul (4.5-11.0)
[2017-01-28] MEDS: Insulin Reg-HIGH-Coverage SC SCH ×4 (08:30→21:43)
[2017-01-28 08:31] LABS: ALB/GLOB RATIO 1.2 (1.1-1.8); ALKALINE PHOSPHATASE 100 U/L (38-126); ALT/SGPT 34 U/L (7-56); AST/SGOT 22 U/L (14-36); BILIRUBIN,TOTAL 0.8 mg/dL (0.2-1.3); BLOOD UREA NITROGEN 31 mg/dL (7-21); CALCIUM 9.2 mg/dL (8.4-10.5); CARBON DIOXIDE 34 mmol/L (21-33); CHLORIDE 89 mmol/L (98-107); GFR AFRICAN-AMERICAN > 60; GLUCOSE,RANDOM 148 mg/dL (70-110); MAGNESIUM 1.8 mg/dL (1.7-2.2); PHOSPHOROUS 3.5 mg/dL (2.5-4.5); POTASSIUM 3.9 mmol/L (3.6-5.0); SODIUM 132 mmol/L (132-148); TOTAL PROTEIN 6.5 g/dL (5.8-8.3)
[2017-01-28] MEDS: Nystatin-Triamcinolone Cream(30 gm) TOP SCH ×2 (10:45→18:51)
--- NOTE | 2017-01-28 11:52 | CP.PCM.PN ---
<Gin Pires - Last Filed: 01/28/17 12:24> Subjective - Date & Time of Evaluation Date of Evaluation: 01/28/17 Time of Evaluation: 11:49 - Subjective Subjective: Hospitalist Service Progress Note: Patient seen and examined at bedside. Per nursing no acute events overnight. Patient currently on dobutamine drip. Offers no complaints at this time. Does not wish to be examined. Denies headaches, dizziness, cp, palpitations, abdominal pain, N/V, sob, urinary symptoms. Objective - Vital Signs/Intake and Output Vital Signs (last 24 hours): Temp Pulse Resp BP Pulse Ox 97.5 F L 115 H 18 95/50 L 95 01/28/17 06:00 01/28/17 10:00 01/28/17 06:00 01/28/17 10:00 01/28/17 06:00 Intake and Output: 01/28/17 01/28/17 06:59 18:59 Intake Total 561 Balance 561 - Medications Medications: Current Medications Apixaban (Eliquis) 5 mg PO BID [facility] PRN Reason: Protocol Last Admin: 01/28/17 10:01 Dose: 5 mg Bumetanide (Bumex) 1 mg PO Q8H [facility] Last Admin: 01/27/17 05:30 Dose: 1 mg Clonazepam (Klonopin) 0.5 mg PO DAILY [facility] PRN Reason: Protocol Last Admin: 01/28/17 09:54 Dose: Not Given Digoxin (Lanoxin) 0.125 mg PO 1400 [facility] Last Admin: 01/27/17 14:44 Dose: 0.125 mg Ferrous Sulfate (Feosol) 324 mg PO DAILY [facility] Last Admin: 01/28/17 09:53 Dose: Not Given Furosemide (Lasix) 20 mg IVP Q8 [facility] Last Admin: 01/28/17 06:59 Dose: Not Given Gabapentin (Neurontin) 100 mg PO BID [facility] PRN Reason: Protocol Last Admin: 01/28/17 10:00 Dose: 100 mg Guaifenesin (Robitussin) 100 mg PO Q4H PRN PRN Reason: Cough Last Admin: 01/27/17 06:20 Dose: 100 mg Dobutamine HCl/Dextrose (Dobutamine/Dextrose 5% 500mg/250ml) 500 mg in 250 mls @ 10.546 mls/hr IV .[id number] PRN; Protocol; 5 MCG/KG/MIN PRN Reason: TITRATE PER PROTOCOL Last Admin: 01/27/17 22:06 Dose: 5 mcg/kg/min, 10.546 mls/hr Insulin Detemir (Levemir) 25 unit SC [facility] Last Admin: 01/27/17 22:53 Dose: 25 unit Insulin Human Regular (Humulin R High) 0 units SC [facility] PRN Reason: Protocol Last Admin: 01/28/17 08:30 Dose: Not Given Levothyroxine Sodium (Synthroid) 125 mcg PO 0600 [facility] Last Admin: 01/28/17 06:58 Dose: 125 mcg Losartan Potassium (Cozaar) 12.5 mg PO DAILY [facility] Last Admin: 01/28/17 10:00 Dose: 12.5 mg Nystatin (Nystop Topical Powder) 1 gm TOP BID [facility] Nystatin/Triamcinolone Acetonide (Nystatin/Triamcinolone Cream) 1 ea TOP BID [facility] Last Admin: 01/28/17 10:45 Dose: 1 applic Ondansetron HCl (Zofran Inj) 4 mg IVP Q4H PRN PRN Reason: Nausea/Vomiting Last Admin: 01/27/17 07:35 Dose: 4 mg Pantoprazole Sodium (Protonix Ec Tab) 40 mg PO 0600 [facility] Last Admin: 01/28/17 06:58 Dose: 40 mg Quetiapine Fumarate (Seroquel) 50 mg PO [facility] PRN Reason: Protocol Last Admin: 01/28/17 09:59 Dose: 50 mg Spironolactone (Aldactone) 25 mg PO BID [facility] Last Admin: 01/28/17 09:52 Dose: Not Given Tramadol HCl (Ultram) 50 mg PO Q8H PRN PRN Reason: Pain, moderate (4-7) Last Admin: 01/28/17 10:47 Dose: 50 mg - Labs Labs: 01/28/17 07:59 01/28/17 07:59 PT 14.2 SECONDS (9.4-12.5) H 01/27/17 01:30 INR 1.30 (0.93-1.08) H 01/27/17 01:30 APTT 28.1 Seconds (25.1-36.5) 01/27/17 01:30 - Constitutional Appears: Non-toxic, No Acute Distress - Head Exam Head Exam: ATRAUMATIC, NORMAL INSPECTION - Eye Exam Eye Exam: EOMI, Normal appearance Pupil Exam: NORMAL ACCOMODATION - ENT Exam ENT Exam: Mucous Membranes Moist - Neck Exam Neck Exam: Full ROM - Respiratory Exam Additional comments: Exam limited - Cardiovascular Exam Cardiovascular Exam: Tachycardia, +S1, +S2 - GI/Abdominal Exam Additional comments: Exam limited - Extremities Exam Additional comments: Exam limited - Neurological Exam Neurological Exam: Alert, Awake, Oriented x3 - Psychiatric Exam Psychiatric exam: Normal Affect, Normal Mood Assessment and Plan - Assessment and Plan (Free Text) Assessment: 51 F with a PMHx of DM2, CHF, HTN, non-ischemic cardiomyopathy, chronic pleural effusion, DVT, PE, hypothyroidism, and schizophrenia presented to the [facility] by EMS with complaints of b/l LE swelling and pain. Acute on chronic CHF exacerbation (systolic dysfunction) -Chronically decompensated -Last echo showing EF 30% -BNP 10,400 on admission -Lasix 20mg Q8H IVP -Will hold Bumex at this time -Continue digoxin, spironolactone, losartan -Has significant LE swelling -LE dopplers negative for DVT -Leg elevation, OOB -Daily weights, strict I/Os -continue to monitor -Cardiology on consult, f/u recommendations B/L LE Cellulitis; Hx of chronic venous stasis -Continue diuresis -ID consulted, Dr. Pascal, Appreciate reccs -Vanc and zosyn given in ED; will hold off on starting abx at this time -WBC 12.8, afebrile -Pain control prn B/L breast rash -likely candidiasis -continue nystatin cream, nystatin powder -ID consulted, f/u recommendations Diabetes Mellitus Type 2 (uncontrolled) -Blood Glucose 608, 10 unit insulin in ED > 391 -CBGs 190-381 -Continue Levemir 30 U -High dose Humalog ISS -Accuchecks ACHS -HgA1C 12.0 -Continue gabapentin Prerenal azotemia -Stable at this time -Nephro on consult, f/u recommendations Hypertension -Currently with low BPs -Dobutamine drip started -Continue to monitor Hypothyroidism -continue home med, synthroid -TSH 9.91 Atrial Fibrillation -Continue Eliquis 5 mg BID -Continue Digoxin, metoprolol -Continue to monitor GI DVT ppx -Protonix 40mg -Eliquis 5mg BID Reviewed and discussed with attending <Will Vela - Last Filed: 01/28/17 16:37> Objective - Vital Signs/Intake and Output Vital Signs (last 24 hours): Temp Pulse Resp BP Pulse Ox 98 F 116 H 19 101/53 L 95 01/28/17 12:00 01/28/17 12:00 01/28/17 12:00 01/28/17 14:44 01/28/17 06:00 Intake and Output: 01/28/17 01/28/17 06:59 18:59 Intake Total 561 Balance 561 - Medications Medications: Current Medications Apixaban (Eliquis) 5 mg PO BID [facility] PRN Reason: Protocol Last Admin: 01/28/17 10:01 Dose: 5 mg Bumetanide (Bumex) 1 mg PO Q8H [facility] Last Admin: 01/27/17 05:30 Dose: 1 mg Clonazepam (Klonopin) 0.5 mg PO DAILY [facility] PRN Reason: Protocol Last Admin: 01/28/17 09:54 Dose: Not Given Digoxin (Lanoxin) 0.125 mg PO 1400 [facility] Last Admin: 01/28/17 14:44 Dose: 0.125 mg Ferrous Sulfate (Feosol) 324 mg PO DAILY [facility] Last Admin: 01/28/17 09:53 Dose: Not Given Furosemide (Lasix) 20 mg IVP Q8 [facility] Last Admin: 01/28/17 14:44 Dose: 20 mg Gabapentin (Neurontin) 100 mg PO BID [facility] PRN Reason: Protocol Last Admin: 01/28/17 10:00 Dose: 100 mg Guaifenesin (Robitussin) 100 mg PO Q4H PRN PRN Reason: Cough Last Admin: 01/27/17 06:20 Dose: 100 mg Dobutamine HCl/Dextrose (Dobutamine/Dextrose 5% 500mg/250ml) 500 mg in 250 mls @ 10.546 mls/hr IV .[id number] PRN; Protocol; 5 MCG/KG/MIN PRN Reason: TITRATE PER PROTOCOL Last Admin: 01/27/17 22:06 Dose: 5 mcg/kg/min, 10.546 mls/hr Insulin Detemir (Levemir) 25 unit SC [facility] Last Admin: 01/27/17 22:53 Dose: 25 unit Insulin Human Regular (Humulin R High) 0 units SC [facility] PRN Reason: Protocol Last Admin: 01/28/17 12:24 Dose: 4 units Levothyroxine Sodium (Synthroid) 125 mcg PO 0600 [facility] Last Admin: 01/28/17 06:58 Dose: 125 mcg Losartan Potassium (Cozaar) 12.5 mg PO DAILY [facility] Last Admin: 01/28/17 10:00 Dose: 12.5 mg Nystatin (Nystop Topical Powder) 1 gm TOP BID [facility] Last Admin: 01/28/17 12:20 Dose: Not Given Nystatin/Triamcinolone Acetonide (Nystatin/Triamcinolone Cream) 1 ea TOP BID [facility] Last Admin: 01/28/17 10:45 Dose: 1 applic Ondansetron HCl (Zofran Inj) 4 mg IVP Q4H PRN PRN Reason: Nausea/Vomiting Last Admin: 01/27/17 07:35 Dose: 4 mg Pantoprazole Sodium (Protonix Ec Tab) 40 mg PO 0600 [facility] Last Admin: 01/28/17 06:58 Dose: 40 mg Quetiapine Fumarate (Seroquel) 50 mg PO [facility] PRN Reason: Protocol Last Admin: 01/28/17 09:59 Dose: 50 mg Spironolactone (Aldactone) 25 mg PO BID [facility] Last Admin: 01/28/17 09:52 Dose: Not Given Tramadol HCl (Ultram) 50 mg PO Q8H PRN PRN Reason: Pain, moderate (4-7) Last Admin: 01/28/17 10:47 Dose: 50 mg - Labs Labs: 01/28/17 07:59 01/28/17 07:59 PT 14.2 SECONDS (9.4-12.5) H 01/27/17 01:30 INR 1.30 (0.93-1.08) H 01/27/17 01:30 APTT 28.1 Seconds (25.1-36.5) 01/27/17 01:30 Attending/Attestation - Attestation I have personally seen and examined this patient.: Yes I have fully participated in the care of the patient.: Yes I have reviewed all pertinent clinical information, including history, physical exam and plan: Yes Notes (Text): 01/28/17 16:23 attending note; Patient seen and examined with the resident. Patient is a 51 year old female with history of DM-2, CHF (EF~30%), HTN, chronic leg edema, DVT/ PE on eliquis, hypothyroidism, schizophrenia was admitted with acute on chronic CHF exacerbation and bilateral LE edema. continue IV Lasix. started on dobutamine drip by cardiology. Leg edema has improved . chronic venous stasis. Nephrology evaluation appreciated. continue bumex and aldactone. history of DVT; continue eliquis. DM: continue Levemir. non compliance with insulin therapy since she is in nursing home. patient is noncompliance with follow-up. crime prevention worker evaluation appreciated. Patient will follow up with PMD Dr. valdez/[facility] clinic upon discharge.
[2017-01-28] MEDS: Nystatin 100,000 Units/gm Topical Pow(15 gm) TOP SCH ×2 (12:20→18:51)
--- NOTE | 2017-01-28 14:39 | CARD ---
APPROVED REPORT EKG Measurement Heart [id number] IN 120P35 [id number] <Conclusion> Sinus tachycardia Possible Left atrial enlargement Left bundle branch block Abnormal ECG
[2017-01-28] MEDS: Digoxin 125 mcg (0.125 mg) Tab PO SCH (14:44)
--- NOTE | 2017-01-28 14:52 | CP.PCM.PN ---
Objective - Vital Signs/Intake and Output Vital Signs (last 24 hours): Temp Pulse Resp BP Pulse Ox 98 F 116 H 19 101/53 L 95 01/28/17 12:00 01/28/17 12:00 01/28/17 12:00 01/28/17 14:44 01/28/17 06:00 Intake and Output: 01/28/17 01/28/17 06:59 18:59 Intake Total 561 Balance 561 - Medications Medications: Current Medications Apixaban (Eliquis) 5 mg PO BID [facility] PRN Reason: Protocol Last Admin: 01/28/17 10:01 Dose: 5 mg Bumetanide (Bumex) 1 mg PO Q8H [facility] Last Admin: 01/27/17 05:30 Dose: 1 mg Clonazepam (Klonopin) 0.5 mg PO DAILY [facility] PRN Reason: Protocol Last Admin: 01/28/17 09:54 Dose: Not Given Digoxin (Lanoxin) 0.125 mg PO 1400 [facility] Last Admin: 01/28/17 14:44 Dose: 0.125 mg Ferrous Sulfate (Feosol) 324 mg PO DAILY [facility] Last Admin: 01/28/17 09:53 Dose: Not Given Furosemide (Lasix) 20 mg IVP Q8 [facility] Last Admin: 01/28/17 14:44 Dose: 20 mg Gabapentin (Neurontin) 100 mg PO BID [facility] PRN Reason: Protocol Last Admin: 01/28/17 10:00 Dose: 100 mg Guaifenesin (Robitussin) 100 mg PO Q4H PRN PRN Reason: Cough Last Admin: 01/27/17 06:20 Dose: 100 mg Dobutamine HCl/Dextrose (Dobutamine/Dextrose 5% 500mg/250ml) 500 mg in 250 mls @ 10.546 mls/hr IV .[id number] PRN; Protocol; 5 MCG/KG/MIN PRN Reason: TITRATE PER PROTOCOL Last Admin: 01/27/17 22:06 Dose: 5 mcg/kg/min, 10.546 mls/hr Insulin Detemir (Levemir) 25 unit SC HS [facility] Last Admin: 01/27/17 22:53 Dose: 25 unit Insulin Human Regular (Humulin R High) 0 units SC ACHS [facility] PRN Reason: Protocol Last Admin: 01/28/17 12:24 Dose: 4 units Levothyroxine Sodium (Synthroid) 125 mcg PO 0600 [facility] Last Admin: 01/28/17 06:58 Dose: 125 mcg Losartan Potassium (Cozaar) 12.5 mg PO DAILY [facility] Last Admin: 01/28/17 10:00 Dose: 12.5 mg Nystatin (Nystop Topical Powder) 1 gm TOP BID [facility] Last Admin: 01/28/17 12:20 Dose: Not Given Nystatin/Triamcinolone Acetonide (Nystatin/Triamcinolone Cream) 1 ea TOP BID [facility] Last Admin: 01/28/17 10:45 Dose: 1 applic Ondansetron HCl (Zofran Inj) 4 mg IVP Q4H PRN PRN Reason: Nausea/Vomiting Last Admin: 01/27/17 07:35 Dose: 4 mg Pantoprazole Sodium (Protonix Ec Tab) 40 mg PO 0600 [facility] Last Admin: 01/28/17 06:58 Dose: 40 mg Quetiapine Fumarate (Seroquel) 50 mg PO [facility] PRN Reason: Protocol Last Admin: 01/28/17 09:59 Dose: 50 mg Spironolactone (Aldactone) 25 mg PO BID [facility] Last Admin: 01/28/17 09:52 Dose: Not Given Tramadol HCl (Ultram) 50 mg PO Q8H PRN PRN Reason: Pain, moderate (4-7) Last Admin: 01/28/17 10:47 Dose: 50 mg - Labs Labs: 01/28/17 07:59 01/28/17 07:59 PT 14.2 SECONDS (9.4-12.5) H 01/27/17 01:30 INR 1.30 (0.93-1.08) H 01/27/17 01:30 APTT 28.1 Seconds (25.1-36.5) 01/27/17 01:30
--- NOTE | 2017-01-28 17:27 | CP.PCM.PN ---
Subjective - Date & Time of Evaluation Date of Evaluation: 01/28/17 Time of Evaluation: 15:30 - Subjective Subjective: Infectious Disease Consultation: January 28, 2017 51 yo female presenting with worsening bilateral LE swelling and pain. The patient has an extensive medical history that includes DM, CHF, HTN, non-ischemic cardiomyopathy, chronic pleural effusion, DVT, PE, hypothyroidism, and schizophrenia. The patient is currently living in a group home. The patient was set up for living arrangements on her last hospitalization one month ago. Unclear what happened as the patient is unwilling to talk about it. Objective - Vital Signs/Intake and Output Vital Signs (last 24 hours): Temp Pulse Resp BP Pulse Ox 98 F 116 H 19 101/53 L 95 01/28/17 12:00 01/28/17 12:00 01/28/17 12:00 01/28/17 14:44 01/28/17 06:00 Intake and Output: 01/28/17 01/28/17 06:59 18:59 Intake Total 561 Balance 561 - Medications Medications: Current Medications Apixaban (Eliquis) 5 mg PO BID [facility] PRN Reason: Protocol Last Admin: 01/28/17 10:01 Dose: 5 mg Bumetanide (Bumex) 1 mg PO Q8H [facility] Last Admin: 01/27/17 05:30 Dose: 1 mg Clonazepam (Klonopin) 0.5 mg PO DAILY [facility] PRN Reason: Protocol Last Admin: 01/28/17 09:54 Dose: Not Given Digoxin (Lanoxin) 0.125 mg PO 1400 [facility] Last Admin: 01/28/17 14:44 Dose: 0.125 mg Ferrous Sulfate (Feosol) 324 mg PO DAILY [facility] Last Admin: 01/28/17 09:53 Dose: Not Given Furosemide (Lasix) 20 mg IVP Q8 [facility] Last Admin: 01/28/17 14:44 Dose: 20 mg Gabapentin (Neurontin) 100 mg PO BID [facility] PRN Reason: Protocol Last Admin: 01/28/17 10:00 Dose: 100 mg Guaifenesin (Robitussin) 100 mg PO Q4H PRN PRN Reason: Cough Last Admin: 01/27/17 06:20 Dose: 100 mg Dobutamine HCl/Dextrose (Dobutamine/Dextrose 5% 500mg/250ml) 500 mg in 250 mls @ 10.546 mls/hr IV .[id number] PRN; Protocol; 5 MCG/KG/MIN PRN Reason: TITRATE PER PROTOCOL Last Admin: 01/27/17 22:06 Dose: 5 mcg/kg/min, 10.546 mls/hr Insulin Detemir (Levemir) 25 unit SC HS [facility] Last Admin: 01/27/17 22:53 Dose: 25 unit Insulin Human Regular (Humulin R High) 0 units SC ACHS [facility] PRN Reason: Protocol Last Admin: 01/28/17 12:24 Dose: 4 units Levothyroxine Sodium (Synthroid) 125 mcg PO 0600 [facility] Last Admin: 01/28/17 06:58 Dose: 125 mcg Losartan Potassium (Cozaar) 12.5 mg PO DAILY [facility] Last Admin: 01/28/17 10:00 Dose: 12.5 mg Nystatin (Nystop Topical Powder) 1 gm TOP BID [facility] Last Admin: 01/28/17 12:20 Dose: Not Given Nystatin/Triamcinolone Acetonide (Nystatin/Triamcinolone Cream) 1 ea TOP BID [facility] Last Admin: 01/28/17 10:45 Dose: 1 applic Ondansetron HCl (Zofran Inj) 4 mg IVP Q4H PRN PRN Reason: Nausea/Vomiting Last Admin: 01/27/17 07:35 Dose: 4 mg Pantoprazole Sodium (Protonix Ec Tab) 40 mg PO 0600 [facility] Last Admin: 01/28/17 06:58 Dose: 40 mg Quetiapine Fumarate (Seroquel) 50 mg PO [facility] PRN Reason: Protocol Last Admin: 01/28/17 09:59 Dose: 50 mg Spironolactone (Aldactone) 25 mg PO BID [facility] Last Admin: 01/28/17 09:52 Dose: Not Given Tramadol HCl (Ultram) 50 mg PO Q8H PRN PRN Reason: Pain, moderate (4-7) Last Admin: 01/28/17 10:47 Dose: 50 mg - Labs Labs: 01/28/17 07:59 01/28/17 07:59 PT 14.2 SECONDS (9.4-12.5) H 01/27/17 01:30 INR 1.30 (0.93-1.08) H 01/27/17 01:30 APTT 28.1 Seconds (25.1-36.5) 01/27/17 01:30 - Constitutional Appears: Non-toxic, No Acute Distress, Chronically Ill - Head Exam Head Exam: ATRAUMATIC, NORMOCEPHALIC - Eye Exam Eye Exam: EOMI, PERRL Pupil Exam: NORMAL ACCOMODATION, PERRL - ENT Exam ENT Exam: Mucous Membranes Moist, Normal External Ear Exam, TM's Normal Bilaterally - Neck Exam Neck Exam: Full ROM, Normal Inspection - Respiratory Exam Respiratory Exam: Decreased Breath Sounds. absent: Rales, Rhonchi, Wheezes - Cardiovascular Exam Cardiovascular Exam: REGULAR RHYTHM, RRR, +S1, +S2 - GI/Abdominal Exam GI & Abdominal Exam: Soft, Normal Bowel Sounds. absent: Distended, Tenderness - Extremities Exam Extremities Exam: Joint Swelling, Pedal Edema - Neurological Exam Neurological Exam: Alert, Awake, CN II-XII Intact, Oriented x3 - Psychiatric Exam Psychiatric exam: Agitated, Depressed - Skin Skin Exam: Dry, Warm Assessment and Plan - Assessment and Plan (Free Text) Assessment: 51 yo female who is non-compliant with her meds presenting with bilateral lower leg swelling and pain. Uncontrolled CHF. At worse, mild cellulitis. Would hold off on antibiotic therapy and treat CHF at this time. Supportive care. There is a rash under the breasts which is fungal in nature. I would continue with nystatin cream for these areas. Spoke with Dr. Vela regarding case. Patient is generally uncooperative with exam. Thank you for allowing me to participate in the care of the patient, we will follow with you.
[2017-01-28] MEDS: DOBUTamine 500mg/250ml D5W 500 MG/250 ML BAG IV PRN (20:24)
[2017-01-28] MEDS: Insulin Detemir 100 units/ml Vial (Levemir) SC SCH (21:55)
[2017-01-29] MEDS: Pantoprazole 40 mg EC Tab PO SCH (05:36)
[2017-01-29] MEDS: Levothyroxine 125 MCG TAB PO SCH (05:36)
[2017-01-29 07:50] LABS: BASO # 0.01 K/mm3 (0.0-2.0); BASO % 0.1 % (0.0-3.0); EOS # 0.2 (0.0-0.7); EOS % 1.7 % (1.5-5.0); GRAN # 8.56 (1.4-6.5); HEMATOCRIT 35.2 % (36.0-48.0); LYMPH # 1.4 (1.2-3.4); LYMPH % 13.2 % (22.0-35.0); MEAN CELL VOLUME 83.8 fl (80.0-105.0); MEAN CORPUSCULAR HEMOGLOBIN 27.9 pg (25.0-35.0); MEAN CORPUSCULAR HGB CONC 33.2 g/dl (31.0-37.0); MEAN PLATELET VOLUME 10.7 fl (7.0-11.0); MONO # 0.4 (0.1-0.6); RED CELL DISTRIBUTION WIDTH 17.3 % (11.5-14.5); WHITE BLOOD COUNT 10.6 10^3/ul (4.5-11.0)
[2017-01-29 07:56] LABS: ALB/GLOB RATIO 1.1 (1.1-1.8); BILIRUBIN,TOTAL 0.8 mg/dL (0.2-1.3); CALCIUM 8.6 mg/dL (8.4-10.5); MAGNESIUM 1.7 mg/dL (1.7-2.2); PHOSPHOROUS 4.2 mg/dL (2.5-4.5); POTASSIUM 4.5 mmol/L (3.6-5.0); TOTAL PROTEIN 5.5 g/dL (5.8-8.3)
[2017-01-29] MEDS: Insulin Reg-HIGH-Coverage SC SCH ×4 (08:15→22:00)
[2017-01-29] MEDS: Nystatin 100,000 Units/gm Topical Pow(15 gm) TOP SCH ×2 (09:23→17:17)
[2017-01-29] MEDS: Nystatin-Triamcinolone Cream(30 gm) TOP SCH ×2 (09:36→18:20)
--- NOTE | 2017-01-29 10:12 | CP.PCM.PN ---
<Gin Pires - Last Filed: 01/29/17 10:21> Subjective - Date & Time of Evaluation Date of Evaluation: 01/29/17 Time of Evaluation: 10:09 - Subjective Subjective: Hospitalist Service Progress Note: Patient seen and examined at bedside. Per nursing patient was having low bps overnight on dopamine drip. Patient was asymptomatic. Was given dose of midodrine. Currently patient is doing well, without complaints at this time. Tolerating diet. Denies headaches, dizziness, cp, palpitations, sob, abdominal pain, urinary symptoms, changes in bowel habits. Objective - Vital Signs/Intake and Output Vital Signs (last 24 hours): Temp Pulse Resp BP Pulse Ox 98.7 F 110 H 18 78/47 L 97 01/29/17 06:00 01/29/17 09:27 01/29/17 06:00 01/29/17 09:27 01/29/17 06:00 Intake and Output: 01/29/17 01/29/17 06:59 18:59 Intake Total 753 Output Total 300 Balance 453 - Medications Medications: Current Medications Apixaban (Eliquis) 5 mg PO BID [facility] PRN Reason: Protocol Last Admin: 01/29/17 09:16 Dose: 5 mg Bumetanide (Bumex) 1 mg PO Q8H [facility] Last Admin: 01/27/17 05:30 Dose: 1 mg Clonazepam (Klonopin) 0.5 mg PO DAILY [facility] PRN Reason: Protocol Last Admin: 01/29/17 09:17 Dose: 0.5 mg Digoxin (Lanoxin) 0.125 mg PO 1400 [facility] Last Admin: 01/28/17 14:44 Dose: 0.125 mg Ferrous Sulfate (Feosol) 324 mg PO DAILY [facility] Last Admin: 01/29/17 09:17 Dose: 324 mg Furosemide (Lasix) 20 mg IVP Q8 [facility] Last Admin: 01/29/17 05:32 Dose: Not Given Gabapentin (Neurontin) 100 mg PO BID [facility] PRN Reason: Protocol Last Admin: 01/29/17 09:17 Dose: 100 mg Guaifenesin (Robitussin) 100 mg PO Q4H PRN PRN Reason: Cough Last Admin: 01/27/17 06:20 Dose: 100 mg Dobutamine HCl/Dextrose (Dobutamine/Dextrose 5% 500mg/250ml) 500 mg in 250 mls @ 10.546 mls/hr IV .[id number] PRN; Protocol; 5 MCG/KG/MIN PRN Reason: TITRATE PER PROTOCOL Last Admin: 01/28/17 20:24 Dose: 5 mcg/kg/min, 10.546 mls/hr Insulin Detemir (Levemir) 25 unit SC HS [facility] Last Admin: 01/28/17 21:55 Dose: 25 unit Insulin Human Regular (Humulin R High) [address] [facility] PRN Reason: Protocol Last Admin: 01/29/17 08:15 Dose: Not Given Levothyroxine Sodium (Synthroid) 125 mcg PO 0600 [facility] Last Admin: 01/29/17 05:36 Dose: 125 mcg Losartan Potassium (Cozaar) 12.5 mg PO DAILY [facility] Last Admin: 01/29/17 09:27 Dose: Not Given Midodrine (Proamatine) 5 mg PO TID [facility] Last Admin: 01/29/17 09:36 Dose: 5 mg Nystatin (Nystop Topical Powder) 1 gm TOP BID [facility] Last Admin: 01/29/17 09:23 Dose: 2 applic Nystatin/Triamcinolone Acetonide (Nystatin/Triamcinolone Cream) 1 ea TOP BID [facility] Last Admin: 01/29/17 09:36 Dose: 2 applic Ondansetron HCl (Zofran Inj) 4 mg IVP Q4H PRN PRN Reason: Nausea/Vomiting Last Admin: 01/27/17 07:35 Dose: 4 mg Pantoprazole Sodium (Protonix Ec Tab) 40 mg PO 0600 [facility] Last Admin: 01/29/17 05:36 Dose: 40 mg Quetiapine Fumarate (Seroquel) 50 mg PO AMHS [facility] PRN Reason: Protocol Last Admin: 01/29/17 09:17 Dose: 50 mg Spironolactone (Aldactone) 25 mg PO BID [facility] Last Admin: 01/28/17 18:54 Dose: Not Given Tramadol HCl (Ultram) 50 mg PO Q8H PRN PRN Reason: Pain, moderate (4-7) Last Admin: 01/28/17 10:47 Dose: 50 mg - Labs Labs: 01/29/17 07:35 01/29/17 07:35 PT 14.2 SECONDS (9.4-12.5) H 01/27/17 01:30 INR 1.30 (0.93-1.08) H 01/27/17 01:30 APTT 28.1 Seconds (25.1-36.5) 01/27/17 01:30 - Constitutional Appears: Non-toxic, No Acute Distress - Head Exam Head Exam: ATRAUMATIC, NORMAL INSPECTION - Eye Exam Eye Exam: EOMI, Normal appearance Pupil Exam: PERRL - ENT Exam ENT Exam: Mucous Membranes Moist - Neck Exam Neck Exam: Full ROM - Respiratory Exam Respiratory Exam: Decreased Breath Sounds, NORMAL BREATHING PATTERN. absent: Rales, Rhonchi, Wheezes - Cardiovascular Exam Cardiovascular Exam: Tachycardia, +S1, +S2 Additional comments: Rashes noted underneath both breasts bilaterally, improving - GI/Abdominal Exam GI & Abdominal Exam: Soft, Normal Bowel Sounds. absent: Guarding, Rigid, Tenderness, Rebound - Extremities Exam Additional comments: +2 Pitting edema in both Lower extremities B/L Chronic venous stasis skin changes - Back Exam Back Exam: NORMAL INSPECTION - Neurological Exam Neurological Exam: Alert, Awake, Oriented x3 - Psychiatric Exam Psychiatric exam: Normal Affect, Normal Mood - Skin Skin Exam: Dry, Normal Color, Warm Assessment and Plan - Assessment and Plan (Free Text) Assessment: 51 F with a PMHx of DM2, CHF, HTN, non-ischemic cardiomyopathy, chronic pleural effusion, DVT, PE, hypothyroidism, and schizophrenia presented to the [facility] by EMS with complaints of b/l LE swelling and pain. Plan: Acute on chronic CHF exacerbation (systolic dysfunction) -Chronically decompensated -Last echo showing EF 30% -BNP 10,400 on admission -Lasix 20mg Q8H IVP -Will hold Bumex at this time -Continue digoxin, spironolactone, losartan -Has significant LE swelling, improving -LE dopplers negative for DVT -Leg elevation, OOB -Daily weights, strict I/Os -Cardiology on consult, f/u recommendations B/L LE Cellulitis; Hx of chronic venous stasis -Vanc and zosyn given in ED; will hold off on starting abx at this time -WBC 10.6 (improved), afebrile -Pain control prn -Continue diuresis -ID consulted, Dr. Pascal, Appreciate recs B/L breast rash -Likely candidiasis -continue nystatin cream, nystatin powder -ID consulted, f/u recommendations Diabetes Mellitus Type 2 (uncontrolled) -Blood Glucose 608, 10 unit insulin in ED > 391; HgA1C 12.0 -CBGs 190-240s -Continue Levemir 30 U -High dose Humalog ISS -Accuchecks ACHS -Continue gabapentin Prerenal azotemia -Cr increased to 1.5 today -Will order urine sodium, urine urea -Sodium 127, will continue to monitor -Nephro on consult, f/u recommendations Hypertension -Currently with low BPs -Continue Dobutamine drip -Will start Midodrine 5mg TID -Continue to monitor Hypothyroidism -Continue home med, synthroid -TSH 9.91 Atrial Fibrillation -Continue Eliquis 5 mg BID -Continue Digoxin, Metoprolol -Continue to monitor GI DVT ppx -Protonix 40mg -Eliquis 5mg BID <RangasaoluAjantha - Last Filed: 01/29/17 11:59> Objective - Vital Signs/Intake and Output Vital Signs (last 24 hours): Temp Pulse Resp BP Pulse Ox 98.7 F 110 H 18 78/47 L 97 01/29/17 06:00 01/29/17 09:27 01/29/17 06:00 01/29/17 09:27 01/29/17 06:00 Intake and Output: 01/29/17 01/29/17 06:59 18:59 Intake Total 753 Output Total 300 Balance 453 - Medications Medications: Current Medications Apixaban (Eliquis) 5 mg PO BID [facility] PRN Reason: Protocol Last Admin: 01/29/17 09:16 Dose: 5 mg Bumetanide (Bumex) 1 mg PO Q8H [facility] Last Admin: 01/27/17 05:30 Dose: 1 mg Clonazepam (Klonopin) 0.5 mg PO DAILY [facility] PRN Reason: Protocol Last Admin: 01/29/17 09:17 Dose: 0.5 mg Digoxin (Lanoxin) 0.125 mg PO 1400 [facility] Last Admin: 01/28/17 14:44 Dose: 0.125 mg Ferrous Sulfate (Feosol) 324 mg PO DAILY [facility] Last Admin: 01/29/17 09:17 Dose: 324 mg Furosemide (Lasix) 20 mg IVP Q8 [facility] Last Admin: 01/29/17 05:32 Dose: Not Given Gabapentin (Neurontin) 100 mg PO BID [facility] PRN Reason: Protocol Last Admin: 01/29/17 09:17 Dose: 100 mg Guaifenesin (Robitussin) 100 mg PO Q4H PRN PRN Reason: Cough Last Admin: 01/27/17 06:20 Dose: 100 mg Dobutamine HCl/Dextrose (Dobutamine/Dextrose 5% 500mg/250ml) 500 mg in 250 mls @ 10.546 mls/hr IV .[id number] PRN; Protocol; 5 MCG/KG/MIN PRN Reason: TITRATE PER PROTOCOL Last Admin: 01/28/17 20:24 Dose: 5 mcg/kg/min, 10.546 mls/hr Insulin Detemir (Levemir) 25 unit SC HS [facility] Last Admin: 01/28/17 21:55 Dose: 25 unit Insulin Human Regular (Humulin R High) [address] [facility] PRN Reason: Protocol Last Admin: 01/29/17 08:15 Dose: Not Given Levothyroxine Sodium (Synthroid) 125 mcg PO 0600 [facility] Last Admin: 01/29/17 05:36 Dose: 125 mcg Losartan Potassium (Cozaar) 12.5 mg PO DAILY [facility] Last Admin: 01/29/17 09:27 Dose: Not Given Midodrine (Proamatine) 5 mg PO TID [facility] Last Admin: 01/29/17 09:36 Dose: 5 mg Nystatin (Nystop Topical Powder) 1 gm TOP BID [facility] Last Admin: 01/29/17 09:23 Dose: 2 applic Nystatin/Triamcinolone Acetonide (Nystatin/Triamcinolone Cream) 1 ea TOP BID [facility] Last Admin: 01/29/17 09:36 Dose: 2 applic Ondansetron HCl (Zofran Inj) 4 mg IVP Q4H PRN PRN Reason: Nausea/Vomiting Last Admin: 01/27/17 07:35 Dose: 4 mg Pantoprazole Sodium (Protonix Ec Tab) 40 mg PO 0600 [facility] Last Admin: 01/29/17 05:36 Dose: 40 mg Quetiapine Fumarate (Seroquel) 50 mg PO [facility] PRN Reason: Protocol Last Admin: 01/29/17 09:17 Dose: 50 mg Spironolactone (Aldactone) 25 mg PO BID [facility] Last Admin: 01/28/17 18:54 Dose: Not Given Tramadol HCl (Ultram) 50 mg PO Q8H PRN PRN Reason: Pain, moderate (4-7) Last Admin: 01/28/17 10:47 Dose: 50 mg - Labs Labs: 01/29/17 07:35 01/29/17 07:35 PT 14.2 SECONDS (9.4-12.5) H 01/27/17 01:30 INR 1.30 (0.93-1.08) H 01/27/17 01:30 APTT 28.1 Seconds (25.1-36.5) 01/27/17 01:30 Attending/Attestation - Attestation I have personally seen and examined this patient.: Yes I have fully participated in the care of the patient.: Yes I have reviewed all pertinent clinical information, including history, physical exam and plan: Yes Notes (Text): 01/29/17 11:50 attending note; Patient seen and examined with the resident. patient is alert, awake and oriented. Patient had low blood pressure secondary to aggressive diuresis. Patient is asymptomatic. Patient is a 51 year old female with history of DM-2, CHF (EF~30%), HTN, chronic leg edema, DVT/ PE on eliquis, hypothyroidism, schizophrenia was admitted with acute on chronic CHF exacerbation and bilateral LE edema. started on dobutamine drip by cardiology. Leg edema has improved significantly. chronic venous stasis. hold cozaar and digoxin. hyponatremia; secondary to IV Lasix. hold diuretics. Elevated creatinine; due to aggressive diuresis. Follow-up with nephrology. history of DVT; continue eliquis. DM: continue Levemir. non compliance with insulin therapy since she is in snf. low-grade temperature. blood culture is negative. UA urine culture pending. procalcitonin ordered. currently off antibiotics. Fungal rash; continue nystatin powder. patient is noncompliance with follow-up. 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 Patient will follow up with PMD Dr. valdez/[facility] upon discharge.
--- NOTE | 2017-01-29 12:05 | CP.PCM.PN ---
Subjective - Date & Time of Evaluation Date of Evaluation: 01/29/17 Time of Evaluation: 10:30 - Subjective Subjective: Infectious Disease Follow Up: January 28, 2017 51 yo female presenting with worsening bilateral LE swelling and pain. The patient has an extensive medical history that includes DM, CHF, HTN, non-ischemic cardiomyopathy, chronic pleural effusion, DVT, PE, hypothyroidism, and schizophrenia. The patient is currently living in a senior care. The patient was set up for living arrangements on her last hospitalization one month ago. Unclear what happened as the patient is unwilling to talk about it. Objective - Vital Signs/Intake and Output Vital Signs (last 24 hours): Temp Pulse Resp BP Pulse Ox 98.7 F 110 H 18 78/47 L 97 01/29/17 06:00 01/29/17 09:27 01/29/17 06:00 01/29/17 09:27 01/29/17 06:00 Intake and Output: 01/29/17 01/29/17 06:59 18:59 Intake Total 753 Output Total 300 Balance 453 - Medications Medications: Current Medications Apixaban (Eliquis) 5 mg PO BID [facility] PRN Reason: Protocol Last Admin: 01/29/17 09:16 Dose: 5 mg Bumetanide (Bumex) 1 mg PO Q8H [facility] Last Admin: 01/27/17 05:30 Dose: 1 mg Clonazepam (Klonopin) 0.5 mg PO DAILY [facility] PRN Reason: Protocol Last Admin: 01/29/17 09:17 Dose: 0.5 mg Digoxin (Lanoxin) 0.125 mg PO 1400 [facility] Last Admin: 01/28/17 14:44 Dose: 0.125 mg Ferrous Sulfate (Feosol) 324 mg PO DAILY [facility] Last Admin: 01/29/17 09:17 Dose: 324 mg Furosemide (Lasix) 20 mg IVP Q8 [facility] Last Admin: 01/29/17 05:32 Dose: Not Given Gabapentin (Neurontin) 100 mg PO BID [facility] PRN Reason: Protocol Last Admin: 01/29/17 09:17 Dose: 100 mg Guaifenesin (Robitussin) 100 mg PO Q4H PRN PRN Reason: Cough Last Admin: 01/27/17 06:20 Dose: 100 mg Dobutamine HCl/Dextrose (Dobutamine/Dextrose 5% 500mg/250ml) 500 mg in 250 mls @ 10.546 mls/hr IV .[id number] PRN; Protocol; 5 MCG/KG/MIN PRN Reason: TITRATE PER PROTOCOL Last Admin: 01/28/17 20:24 Dose: 5 mcg/kg/min, 10.546 mls/hr Insulin Detemir (Levemir) 25 unit SC HS [facility] Last Admin: 01/28/17 21:55 Dose: 25 unit Insulin Human Regular (Humulin R High) 0 units SC [facility] PRN Reason: Protocol Last Admin: 01/29/17 08:15 Dose: Not Given Levothyroxine Sodium (Synthroid) 125 mcg PO 0600 [facility] Last Admin: 01/29/17 05:36 Dose: 125 mcg Losartan Potassium (Cozaar) 12.5 mg PO DAILY [facility] Last Admin: 01/29/17 09:27 Dose: Not Given Midodrine (Proamatine) 5 mg PO TID [facility] Last Admin: 01/29/17 09:36 Dose: 5 mg Nystatin (Nystop Topical Powder) 1 gm TOP BID [facility] Last Admin: 01/29/17 09:23 Dose: 2 applic Nystatin/Triamcinolone Acetonide (Nystatin/Triamcinolone Cream) 1 ea TOP BID [facility] Last Admin: 01/29/17 09:36 Dose: 2 applic Ondansetron HCl (Zofran Inj) 4 mg IVP Q4H PRN PRN Reason: Nausea/Vomiting Last Admin: 01/27/17 07:35 Dose: 4 mg Pantoprazole Sodium (Protonix Ec Tab) 40 mg PO 0600 [facility] Last Admin: 01/29/17 05:36 Dose: 40 mg Quetiapine Fumarate (Seroquel) 50 mg PO AMHS [facility] PRN Reason: Protocol Last Admin: 01/29/17 09:17 Dose: 50 mg Spironolactone (Aldactone) 25 mg PO BID [facility] Last Admin: 01/28/17 18:54 Dose: Not Given Tramadol HCl (Ultram) 50 mg PO Q8H PRN PRN Reason: Pain, moderate (4-7) Last Admin: 01/28/17 10:47 Dose: 50 mg - Labs Labs: 01/29/17 07:35 01/29/17 07:35 PT 14.2 SECONDS (9.4-12.5) H 01/27/17 01:30 INR 1.30 (0.93-1.08) H 01/27/17 01:30 APTT 28.1 Seconds (25.1-36.5) 01/27/17 01:30 - Constitutional Appears: Non-toxic, No Acute Distress, Chronically Ill - Head Exam Head Exam: ATRAUMATIC, NORMOCEPHALIC - Eye Exam Eye Exam: EOMI, PERRL Pupil Exam: NORMAL ACCOMODATION, PERRL - ENT Exam ENT Exam: Mucous Membranes Moist, Normal External Ear Exam, TM's Normal Bilaterally - Neck Exam Neck Exam: Full ROM, Normal Inspection - Respiratory Exam Respiratory Exam: Decreased Breath Sounds, NORMAL BREATHING PATTERN. absent: Rales, Rhonchi, Wheezes - Cardiovascular Exam Cardiovascular Exam: REGULAR RHYTHM, RRR, +S1, +S2 - GI/Abdominal Exam GI & Abdominal Exam: Soft, Normal Bowel Sounds. absent: Distended, Tenderness - Extremities Exam Extremities Exam: Joint Swelling, Pedal Edema Additional comments: erythematous b/l le, +4 pitting edema, chronic venous stasis - Neurological Exam Neurological Exam: Alert, Awake, CN II-XII Intact, Oriented x3 - Psychiatric Exam Psychiatric exam: Agitated, Depressed - Skin Skin Exam: Dry, Warm Assessment and Plan - Assessment and Plan (Free Text) Assessment: 51 yo female who is non-compliant with her meds presenting with bilateral lower leg swelling and pain. Uncontrolled CHF. At worse, mild cellulitis. Would hold off on antibiotic therapy and treat CHF at this time. Supportive care. There is a rash under the breasts which is fungal in nature. I would continue with nystatin cream for these areas. Spoke with Dr. Vela regarding case. Patient is generally uncooperative with exam. The patient is receiving Dobutamine for hypotension. Thank you for allowing me to participate in the care of the patient, we will follow with you.
--- NOTE | 2017-01-29 12:54 | CP.PCM.PN ---
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, admitted with CHF exacerbation; Patient reports breathing ok, tolerating diet; says she's not urinating much because she's not drinking much; Objective - Vital Signs/Intake and Output Vital Signs (last 24 hours): Temp Pulse Resp BP Pulse Ox 97.1 F L 65 19 92/55 L 97 01/29/17 12:00 01/29/17 12:00 01/29/17 12:00 01/29/17 12:00 01/29/17 06:00 Intake and Output: 01/29/17 01/29/17 06:59 18:59 Intake Total 753 Output Total 300 Balance 453 - Medications Medications: Current Medications Apixaban (Eliquis) 5 mg PO BID [facility] PRN Reason: Protocol Last Admin: 01/29/17 09:16 Dose: 5 mg Bumetanide (Bumex) 1 mg PO Q8H [facility] Last Admin: 01/27/17 05:30 Dose: 1 mg Clonazepam (Klonopin) 0.5 mg PO DAILY [facility] PRN Reason: Protocol Last Admin: 01/29/17 09:17 Dose: 0.5 mg Digoxin (Lanoxin) 0.125 mg PO 1400 [facility] Last Admin: 01/28/17 14:44 Dose: 0.125 mg Ferrous Sulfate (Feosol) 324 mg PO DAILY [facility] Last Admin: 01/29/17 09:17 Dose: 324 mg Furosemide (Lasix) 20 mg IVP Q8 [facility] Last Admin: 01/29/17 05:32 Dose: Not Given Gabapentin (Neurontin) 100 mg PO BID [facility] PRN Reason: Protocol Last Admin: 01/29/17 09:17 Dose: 100 mg Guaifenesin (Robitussin) 100 mg PO Q4H PRN PRN Reason: Cough Last Admin: 01/27/17 06:20 Dose: 100 mg Dobutamine HCl/Dextrose (Dobutamine/Dextrose 5% 500mg/250ml) 500 mg in 250 mls @ 10.546 mls/hr IV .[id number] PRN; Protocol; 5 MCG/KG/MIN PRN Reason: TITRATE PER PROTOCOL Last Admin: 01/28/17 20:24 Dose: 5 mcg/kg/min, 10.546 mls/hr Insulin Detemir (Levemir) 25 unit SC [facility] Last Admin: 01/28/17 21:55 Dose: 25 unit Insulin Human Regular (Humulin R High) 0 units SC [facility] PRN Reason: Protocol Last Admin: 01/29/17 12:14 Dose: Not Given Levothyroxine Sodium (Synthroid) 125 mcg PO 0600 [facility] Last Admin: 01/29/17 05:36 Dose: 125 mcg Losartan Potassium (Cozaar) 12.5 mg PO DAILY [facility] Last Admin: 01/29/17 09:27 Dose: Not Given Midodrine (Proamatine) 5 mg PO TID [facility] Last Admin: 01/29/17 09:36 Dose: 5 mg Nystatin (Nystop Topical Powder) 1 gm TOP BID [facility] Last Admin: 01/29/17 09:23 Dose: 2 applic Nystatin/Triamcinolone Acetonide (Nystatin/Triamcinolone Cream) 1 ea TOP BID [facility] Last Admin: 01/29/17 09:36 Dose: 2 applic Ondansetron HCl (Zofran Inj) 4 mg IVP Q4H PRN PRN Reason: Nausea/Vomiting Last Admin: 01/27/17 07:35 Dose: 4 mg Pantoprazole Sodium (Protonix Ec Tab) 40 mg PO 0600 [facility] Last Admin: 01/29/17 05:36 Dose: 40 mg Quetiapine Fumarate (Seroquel) 50 mg PO [facility] PRN Reason: Protocol Last Admin: 01/29/17 09:17 Dose: 50 mg Spironolactone (Aldactone) 25 mg PO BID [facility] Last Admin: 01/28/17 18:54 Dose: Not Given Tramadol HCl (Ultram) 50 mg PO Q8H PRN PRN Reason: Pain, moderate (4-7) Last Admin: 01/28/17 10:47 Dose: 50 mg - Labs Labs: 01/29/17 07:35 01/29/17 07:35 PT 14.2 SECONDS (9.4-12.5) H 01/27/17 01:30 INR 1.30 (0.93-1.08) H 01/27/17 01:30 APTT 28.1 Seconds (25.1-36.5) 01/27/17 01:30 - Constitutional Appears: Non-toxic, No Acute Distress - Head Exam Head Exam: NORMAL INSPECTION - Eye Exam Eye Exam: Normal appearance. absent: Scleral icterus - ENT Exam ENT Exam: Mucous Membranes Moist - Respiratory Exam Respiratory Exam: absent: Respiratory Distress Additional comments: Decreased breath sounds bilaterally; - Cardiovascular Exam Cardiovascular Exam: REGULAR RHYTHM, +S1, +S2. absent: Gallop - GI/Abdominal Exam GI & Abdominal Exam: Soft. absent: Distended, Tenderness - Extremities Exam Additional comments: marked lower leg edema, mild thigh edema; - Neurological Exam Neurological Exam: Alert, Awake - Psychiatric Exam Psychiatric exam: absent: Agitated - Skin Skin Exam: Warm. absent: Cyanosis Assessment and Plan (1) Cardiogenic shock Assessment & Plan: In the setting of severe CHF w/ systolic dysfunction and MR; was clinically stable on presentation but may have been overly diuresed; now on inotropic support with dobutamine; renal function worsening but clinically appears stable , good mentation, warm extremities and SBP improving to ~90; agree with primary attending to hold diuresis, ARB/aldactone for now; can restart once patient stabilizes; Status: Acute (2) Acute kidney injury Assessment & Plan: Cardiorenal etiology; holding diuretics and ARB/aldactone as above; will check labs this afternoon (if patient amenable); if no improvement, may benefit from IVF (250 cc bolus) temporarily; Status: Acute (3) Hyponatremia Assessment & Plan: In the setting of severe CHF w/ excerbation; will hold off on starting tolvaptan and monitor response to inotrope for now; Status: Acute (4) Metabolic alkalosis Assessment & Plan: Improving, was seen in the setting of aggressive loop diuretics; monitor; will restart aldactone once stable; Status: Acute (5) Pleural effusion Assessment & Plan: Chronic; needs to continue diuretics nursing home; Status: Acute
[2017-01-29] MEDS: Digoxin 125 mcg (0.125 mg) Tab PO SCH (13:43)
[2017-01-29 13:48] VITALS: PULSE 120
[2017-01-29] MEDS: Insulin Detemir 100 units/ml Vial (Levemir) SC SCH (22:22)
[2017-01-29] MEDS: DOBUTamine 500mg/250ml D5W 500 MG/250 ML BAG IV PRN (22:25)
[2017-01-30] MEDS: Pantoprazole 40 mg EC Tab PO SCH (07:02)
[2017-01-30] MEDS: Levothyroxine 125 MCG TAB PO SCH (07:03)
[2017-01-30 07:16] LABS: BASO # 0.02 K/mm3 (0.0-2.0); BASO % 0.2 % (0.0-3.0); EOS # 0.2 (0.0-0.7); EOS % 1.6 % (1.5-5.0); GRAN # 8.11 (1.4-6.5); GRAN % 80.6 % (50.0-68.0); HEMATOCRIT 34.8 % (36.0-48.0); LYMPH # 1.3 (1.2-3.4); LYMPH % 13.2 % (22.0-35.0); MEAN CELL VOLUME 82.9 fl (80.0-105.0); MEAN CORPUSCULAR HEMOGLOBIN 27.4 pg (25.0-35.0); MEAN PLATELET VOLUME 10.6 fl (7.0-11.0); MONO # 0.4 (0.1-0.6); MONO % 4.4 % (1.0-6.0); RED CELL DISTRIBUTION WIDTH 17.2 % (11.5-14.5); WHITE BLOOD COUNT 10.1 10^3/ul (4.5-11.0)
[2017-01-30 07:34] LABS: ALB/GLOB RATIO 1.1 (1.1-1.8); BILIRUBIN,TOTAL 0.8 mg/dL (0.2-1.3); CALCIUM 7.9 mg/dL (8.4-10.5); MAGNESIUM 1.9 mg/dL (1.7-2.2); PHOSPHOROUS 5.7 mg/dL (2.5-4.5); TOTAL PROTEIN 6.6 g/dL (5.8-8.3)
[2017-01-30] MEDS: Insulin Reg-HIGH-Coverage SC SCH ×4 (07:37→22:34)
[2017-01-30 07:46] LABS: POTASSIUM 5.7 mmol/L (3.6-5.0)
[2017-01-30] MEDS ORDERED: Sodium Chloride 0.9% 1,000 ML IV ONE (08:06)
[2017-01-30] MEDS ORDERED: Dextrose 50% SYRINGE Inj (50 ml) IVP ONE (08:12)
[2017-01-30] MEDS ORDERED: Insulin Regular 1 UNITS/0.01 ML ML IVP ONE (08:13)
[2017-01-30] MEDS ORDERED: Sod Polystyrene Sulf 15 gm/60 ml Susp PO STA (09:37)
--- NOTE | 2017-01-30 09:40 | CP.PCM.PN ---
<Eduardo Flynn - Last Filed: 01/30/17 13:28> Subjective - Date & Time of Evaluation Date of Evaluation: 01/30/17 Time of Evaluation: 09:38 - Subjective Subjective: patient was seen and examined at bedside. denies complaints of chest pain, shortness of breath, fevers/chills, n/v/d, dysuria, neck or back pain, headaches or weakness. pt states that the swelling in her legs is improving but they are still red. Objective - Vital Signs/Intake and Output Vital Signs (last 24 hours): Temp Pulse Resp BP Pulse Ox 98.4 F 118 H 19 83/49 L 95 01/30/17 06:00 01/30/17 06:00 01/30/17 06:00 01/30/17 07:03 01/30/17 06:00 Intake and Output: 01/30/17 01/30/17 06:59 18:59 Intake Total 742 Output Total 1 Balance 741 - Medications Medications: Current Medications Apixaban (Eliquis) 5 mg PO BID [facility] PRN Reason: Protocol Last Admin: 01/29/17 17:16 Dose: 5 mg Bumetanide (Bumex) 1 mg PO Q8H [facility] Last Admin: 01/27/17 05:30 Dose: 1 mg Clonazepam (Klonopin) 0.5 mg PO DAILY [facility] PRN Reason: Protocol Last Admin: 01/29/17 09:17 Dose: 0.5 mg Digoxin (Lanoxin) 0.125 mg PO 1400 [facility] Last Admin: 01/29/17 13:43 Dose: 0.125 mg Ferrous Sulfate (Feosol) 324 mg PO DAILY [facility] Last Admin: 01/29/17 09:17 Dose: 324 mg Furosemide (Lasix) 20 mg IVP Q8 [facility] Last Admin: 01/30/17 07:03 Dose: Not Given Gabapentin (Neurontin) 100 mg PO BID [facility] PRN Reason: Protocol Last Admin: 01/29/17 17:16 Dose: 100 mg Guaifenesin (Robitussin) 100 mg PO Q4H PRN PRN Reason: Cough Last Admin: 01/27/17 06:20 Dose: 100 mg Dobutamine HCl/Dextrose (Dobutamine/Dextrose 5% 500mg/250ml) 500 mg in 250 mls @ 10.546 mls/hr IV .[id number] PRN; Protocol; 5 MCG/KG/MIN PRN Reason: TITRATE PER PROTOCOL Last Admin: 01/29/17 22:25 Dose: 5 mcg/kg/min, 10.546 mls/hr Sodium Chloride (Sodium Chloride 0.9%) 1,000 mls @ 250 mls/hr IV .Q4H ONE Stop: 01/30/17 12:05 Insulin Detemir (Levemir) 25 unit SC [facility] Last Admin: 01/29/17 22:22 Dose: 25 unit Insulin Human Regular (Humulin R High) 0 units SC [facility] PRN Reason: Protocol Last Admin: 01/30/17 07:37 Dose: Not Given Levothyroxine Sodium (Synthroid) 125 mcg PO 0600 [facility] Last Admin: 01/30/17 07:03 Dose: 125 mcg Losartan Potassium (Cozaar) 12.5 mg PO DAILY [facility] Last Admin: 01/29/17 09:27 Dose: Not Given Midodrine (Proamatine) 5 mg PO TID [facility] Last Admin: 01/29/17 17:16 Dose: 5 mg Nystatin (Nystop Topical Powder) 1 gm TOP BID [facility] Last Admin: 01/29/17 17:17 Dose: 2 applic Nystatin/Triamcinolone Acetonide (Nystatin/Triamcinolone Cream) 1 ea TOP BID [facility] Last Admin: 01/29/17 18:20 Dose: 2 applic Ondansetron HCl (Zofran Inj) 4 mg IVP Q4H PRN PRN Reason: Nausea/Vomiting Last Admin: 01/27/17 07:35 Dose: 4 mg Pantoprazole Sodium (Protonix Ec Tab) 40 mg PO 0600 [facility] Last Admin: 01/30/17 07:02 Dose: 40 mg Quetiapine Fumarate (Seroquel) 50 mg PO AMHS [facility] PRN Reason: Protocol Last Admin: 01/29/17 22:22 Dose: 50 mg Spironolactone (Aldactone) 25 mg PO BID [facility] Last Admin: 01/28/17 18:54 Dose: Not Given Tramadol HCl (Ultram) 50 mg PO Q8H PRN PRN Reason: Pain, moderate (4-7) Last Admin: 01/28/17 10:47 Dose: 50 mg - Labs Labs: 01/30/17 07:03 01/30/17 07:03 PT 14.2 SECONDS (9.4-12.5) H 01/27/17 01:30 INR 1.30 (0.93-1.08) H 01/27/17 01:30 APTT 28.1 Seconds (25.1-36.5) 01/27/17 01:30 - Constitutional Appears: Well, Non-toxic, No Acute Distress - Head Exam Head Exam: ATRAUMATIC, NORMAL INSPECTION, NORMOCEPHALIC - Eye Exam Eye Exam: EOMI, Normal appearance, PERRL Pupil Exam: NORMAL ACCOMODATION - ENT Exam ENT Exam: Mucous Membranes Moist - Neck Exam Neck Exam: Full ROM - Respiratory Exam Respiratory Exam: Clear to Ausculation Bilateral, NORMAL BREATHING PATTERN. absent: Accessory Muscle Use, Rales, Rhonchi, Wheezes, Respiratory Distress - Cardiovascular Exam Cardiovascular Exam: Tachycardia, REGULAR RHYTHM. absent: Gallop, Rubs - GI/Abdominal Exam GI & Abdominal Exam: Soft, Normal Bowel Sounds. absent: Distended, Rigid, Tenderness - Extremities Exam Extremities Exam: Full ROM, Pedal Edema (1+), Tenderness (diffuse b/l LE tenderness). absent: Calf Tenderness Additional comments: b/l LE redness and peeling - Back Exam Back Exam: NORMAL INSPECTION - Neurological Exam Neurological Exam: Alert, Awake - Psychiatric Exam Psychiatric exam: Normal Affect, Normal Mood - Skin Skin Exam: Rash (sub-breast b/l), Warm - Additional Findings Additional findings: b/l LE redness and skin peeling Assessment and Plan - Assessment and Plan (Free Text) Assessment: 51 F with a PMHx of DM2, CHF, HTN, non-ischemic cardiomyopathy, chronic pleural effusion, DVT, PE, hypothyroidism, and schizophrenia presented to the [facility] ED by EMS with complaints of b/l LE swelling and pain. Last ECHO was 30%. Plan: 1. Acute on chronic CHF exacerbation (systolic dysfunction) - Lasix, Bumex, Digoxin, Aldactone, and Losartan all held due to hypotension - LE dopplers negative for DVT - Leg elevation, OOB - Daily weights, strict I/Os - Cardiology on consult, f/u recommendations 2. Hypotension - diuretics held - midodrine 5mg PO given - midodrine 5mg PO TID - NS @ 250ml/hr 3. OLLIE/Hyponatremia - Cr increased to 2.4, monitor signs of renal failure - Sodium 125, will continue to monitor - NS given - Nephro on consult, f/u recommendations 4. Hyperkalemia - calcium gluconate given - 5mg IVP Humulin R given w/ Dextrose - EKG showed no acute changes 5. B/L LE Cellulitis; Hx of chronic venous stasis - Vanc and zosyn given in ED; will hold off on starting abx at this time per ID recs - WBC 10.1 (improved), afebrile - Pain control prn 6. B/L breast rash - Likely candidiasis - continue nystatin cream, nystatin powder - ID consulted, f/u recommendations 7. Diabetes Mellitus Type 2 (uncontrolled) - Continue Levemir 25u QHS - High dose Humalog ISS - Accuchecks ACHS - Continue gabapentin 8. Hypothyroidism -Continue synthroid 9. Atrial Fibrillation - Continue Eliquis 5 mg BID - Continue to monitor PPX: -Protonix 40mg -Eliquis 5mg BID Diet: Consistent Carbs Patient was seen, examined and discussed with attending, Dr. Perry Flynn PGY1 <Annmarie Amador - Last Filed: 01/30/17 15:22> Objective - Vital Signs/Intake and Output Vital Signs (last 24 hours): Temp Pulse Resp BP Pulse Ox 98.2 F 63 18 90/57 L 95 01/30/17 12:00 01/30/17 14:00 01/30/17 12:00 01/30/17 12:00 01/30/17 06:00 Intake and Output: 01/30/17 01/30/17 06:59 18:59 Intake Total 742 Output Total 1 Balance 741 - Medications Medications: Current Medications Apixaban (Eliquis) 5 mg PO BID [facility] PRN Reason: Protocol Last Admin: 01/30/17 10:25 Dose: 5 mg Bumetanide (Bumex) 1 mg PO Q8H [facility] Last Admin: 01/27/17 05:30 Dose: 1 mg Clonazepam (Klonopin) 0.5 mg PO DAILY [facility] PRN Reason: Protocol Last Admin: 01/30/17 10:26 Dose: 0.5 mg Digoxin (Lanoxin) 0.125 mg PO 1400 [facility] Last Admin: 01/29/17 13:43 Dose: 0.125 mg Ferrous Sulfate (Feosol) 324 mg PO DAILY [facility] Last Admin: 01/30/17 10:25 Dose: 324 mg Furosemide (Lasix) 20 mg IVP Q8 [facility] Last Admin: 01/30/17 07:03 Dose: Not Given Gabapentin (Neurontin) 100 mg PO BID [facility] PRN Reason: Protocol Last Admin: 01/30/17 10:27 Dose: 100 mg Guaifenesin (Robitussin) 100 mg PO Q4H PRN PRN Reason: Cough Last Admin: 01/27/17 06:20 Dose: 100 mg Insulin Detemir (Levemir) 25 unit SC [facility] Last Admin: 01/29/17 22:22 Dose: 25 unit Insulin Human Regular (Humulin R High) 0 units SC [facility] PRN Reason: Protocol Last Admin: 01/30/17 13:08 Dose: 7 units Levothyroxine Sodium (Synthroid) 125 mcg PO 0600 [facility] Last Admin: 01/30/17 07:03 Dose: 125 mcg Losartan Potassium (Cozaar) 12.5 mg PO DAILY [facility] Last Admin: 01/29/17 09:27 Dose: Not Given Midodrine (Proamatine) 5 mg PO TID [facility] Last Admin: 01/30/17 14:28 Dose: 5 mg Nystatin (Nystop Topical Powder) 1 gm TOP BID [facility] Last Admin: 01/30/17 10:27 Dose: 1 applic Nystatin/Triamcinolone Acetonide (Nystatin/Triamcinolone Cream) 1 ea TOP BID [facility] Last Admin: 01/30/17 10:27 Dose: 1 applic Ondansetron HCl (Zofran Inj) 4 mg IVP Q4H PRN PRN Reason: Nausea/Vomiting Last Admin: 01/27/17 07:35 Dose: 4 mg Pantoprazole Sodium (Protonix Ec Tab) 40 mg PO 0600 [facility] Last Admin: 01/30/17 07:02 Dose: 40 mg Quetiapine Fumarate (Seroquel) 50 mg PO AMHS [facility] PRN Reason: Protocol Last Admin: 01/30/17 10:28 Dose: 50 mg Spironolactone (Aldactone) 25 mg PO BID [facility] Last Admin: 01/28/17 18:54 Dose: Not Given Tramadol HCl (Ultram) 50 mg PO Q8H PRN PRN Reason: Pain, moderate (4-7) Last Admin: 01/28/17 10:47 Dose: 50 mg - Labs Labs: 01/30/17 07:03 01/30/17 07:03 PT 14.2 SECONDS (9.4-12.5) H 01/27/17 01:30 INR 1.30 (0.93-1.08) H 01/27/17 01:30 APTT 28.1 Seconds (25.1-36.5) 01/27/17 01:30 Attending/Attestation - Attestation I have personally seen and examined this patient.: Yes I have fully participated in the care of the patient.: Yes I have reviewed all pertinent clinical information, including history, physical exam and plan: Yes Notes (Text): I have seen and examined the patient at bedside. Agree with the above note with the following additions/ exceptions: Briefly this is 51 year old female with history of DM-2, CHF (EF~30%), HTN, chronic leg edema, DVT/ PE on eliquis, hypothyroidism, schizophrenia was admitted with acute on chronic CHF exacerbation and bilateral LE edema. Patient denies any complaints at this time. She weighs 163 pounds only. Patient also has hypotension and worsening of renal function due to over diuresis. Will hold diuretics. Heating Element Repairer recommended IV fluid bolus which was given. Patient had hyperkalemia which was treated with dextrose/ insulin and calcium gluconate. Continue dobutamine. Awaiting official cardiology consult. Her LE cellulitis is much better. She is not on any antibiotics at this time. Continue nystatin powder for fungal rash. Upon discharge patient will follow up with Dr Roman. Dr Annmarie Amador
[2017-01-30] MEDS ORDERED: Dextrose 50% SYRINGE Inj (50 ml) ONE (10:18)
[2017-01-30] MEDS: Nystatin-Triamcinolone Cream(30 gm) TOP SCH ×2 (10:27→18:40)
[2017-01-30] MEDS: Nystatin 100,000 Units/gm Topical Pow(15 gm) TOP SCH ×2 (10:27→18:39)
--- NOTE | 2017-01-30 16:29 | CARD ---
APPROVED REPORT EKG Measurement Heart [id number] <Conclusion> Sinus tachycardia Left bundle branch block
--- NOTE | 2017-01-30 18:45 | CP.PCM.PN ---
Subjective - Date & Time of Evaluation Date of Evaluation: 01/30/17 Time of Evaluation: 16:30 - Subjective Subjective: Infectious Disease Follow Up: January 30, 2017 51 yo female presenting with worsening bilateral LE swelling and pain. The patient has an extensive medical history that includes DM, CHF, HTN, non-ischemic cardiomyopathy, chronic pleural effusion, DVT, PE, hypothyroidism, and schizophrenia. [facility]. The patient was set up for living arrangements on her last hospitalization one month ago. Unclear what happened as the patient is unwilling to talk about it. She remains relatively uncooperative with exam. Objective - Vital Signs/Intake and Output Vital Signs (last 24 hours): Temp Pulse Resp BP Pulse Ox 98.6 F 112 H 20 89/54 L 98 01/30/17 14:15 01/30/17 14:15 01/30/17 14:15 01/30/17 14:15 01/30/17 14:15 Intake and Output: 01/30/17 01/30/17 06:59 18:59 Intake Total 742 Output Total 1 Balance 741 - Medications Medications: Current Medications Apixaban (Eliquis) 5 mg PO BID [facility] PRN Reason: Protocol Last Admin: 01/30/17 10:25 Dose: 5 mg Bumetanide (Bumex) 1 mg PO Q8H [facility] Last Admin: 01/27/17 05:30 Dose: 1 mg Clonazepam (Klonopin) 0.5 mg PO DAILY [facility] PRN Reason: Protocol Last Admin: 01/30/17 10:26 Dose: 0.5 mg Digoxin (Lanoxin) 0.125 mg PO 1400 [facility] Last Admin: 01/29/17 13:43 Dose: 0.125 mg Ferrous Sulfate (Feosol) 324 mg PO DAILY [facility] Last Admin: 01/30/17 10:25 Dose: 324 mg Furosemide (Lasix) 20 mg IVP Q8 [facility] Last Admin: 01/30/17 07:03 Dose: Not Given Gabapentin (Neurontin) 100 mg PO BID [facility] PRN Reason: Protocol Last Admin: 01/30/17 10:27 Dose: 100 mg Guaifenesin (Robitussin) 100 mg PO Q4H PRN PRN Reason: Cough Last Admin: 01/27/17 06:20 Dose: 100 mg Insulin Detemir (Levemir) 25 unit SC HS [facility] Last Admin: 01/29/17 22:22 Dose: 25 unit Insulin Human Regular (Humulin R High) 0 units SC ACHS [facility] PRN Reason: Protocol Last Admin: 01/30/17 13:08 Dose: 7 units Levothyroxine Sodium (Synthroid) 125 mcg PO 0600 [facility] Last Admin: 01/30/17 07:03 Dose: 125 mcg Losartan Potassium (Cozaar) 12.5 mg PO DAILY [facility] Last Admin: 01/29/17 09:27 Dose: Not Given Midodrine (Proamatine) 5 mg PO TID [facility] Last Admin: 01/30/17 14:28 Dose: 5 mg Nystatin (Nystop Topical Powder) 1 gm TOP BID [facility] Last Admin: 01/30/17 10:27 Dose: 1 applic Nystatin/Triamcinolone Acetonide (Nystatin/Triamcinolone Cream) 1 ea TOP BID [facility] Last Admin: 01/30/17 10:27 Dose: 1 applic Ondansetron HCl (Zofran Inj) 4 mg IVP Q4H PRN PRN Reason: Nausea/Vomiting Last Admin: 01/27/17 07:35 Dose: 4 mg Pantoprazole Sodium (Protonix Ec Tab) 40 mg PO 0600 [facility] Last Admin: 01/30/17 07:02 Dose: 40 mg Quetiapine Fumarate (Seroquel) 50 mg PO AMHS [facility] PRN Reason: Protocol Last Admin: 01/30/17 10:28 Dose: 50 mg Spironolactone (Aldactone) 25 mg PO BID [facility] Last Admin: 01/28/17 18:54 Dose: Not Given Tramadol HCl (Ultram) 50 mg PO Q8H PRN PRN Reason: Pain, moderate (4-7) Last Admin: 01/28/17 10:47 Dose: 50 mg - Labs Labs: 01/30/17 07:03 01/30/17 07:03 PT 14.2 SECONDS (9.4-12.5) H 01/27/17 01:30 INR 1.30 (0.93-1.08) H 01/27/17 01:30 APTT 28.1 Seconds (25.1-36.5) 01/27/17 01:30 - Constitutional Appears: Non-toxic, No Acute Distress, Chronically Ill - Head Exam Head Exam: ATRAUMATIC, NORMOCEPHALIC - Eye Exam Eye Exam: EOMI, PERRL Pupil Exam: NORMAL ACCOMODATION, PERRL - ENT Exam ENT Exam: Mucous Membranes Moist, Normal External Ear Exam, TM's Normal Bilaterally - Neck Exam Neck Exam: Full ROM, Normal Inspection - Respiratory Exam Respiratory Exam: Decreased Breath Sounds, NORMAL BREATHING PATTERN. absent: Rales, Rhonchi, Wheezes - Cardiovascular Exam Cardiovascular Exam: REGULAR RHYTHM, RRR, +S1, +S2 - GI/Abdominal Exam GI & Abdominal Exam: Soft, Normal Bowel Sounds. absent: Distended, Tenderness - Extremities Exam Extremities Exam: Joint Swelling, Pedal Edema Additional comments: erythematous b/l le, +4 pitting edema, chronic venous stasis - Neurological Exam Neurological Exam: Alert, Awake, CN II-XII Intact - Psychiatric Exam Psychiatric exam: Agitated, Depressed - Skin Skin Exam: Dry, Warm Assessment and Plan - Assessment and Plan (Free Text) Assessment: 51 yo female who is non-compliant with her meds presenting with bilateral lower leg swelling and pain. Uncontrolled CHF. At worse, mild cellulitis. Would hold off on antibiotic therapy and treat CHF at this time. Supportive care. There is a rash under the breasts which is fungal in nature. I would continue with nystatin cream for these areas. Patient is generally uncooperative with exam. Cultures negative to date. The patient is receiving Dobutamine for hypotension. Thank you for allowing me to participate in the care of the patient, we will follow with you.
[2017-01-30 18:47] LABS: CALCIUM 8.4 mg/dL (8.4-10.5)
[2017-01-30 18:50] LABS: POTASSIUM 5.7 mmol/L (3.6-5.0)
[2017-01-30] MEDS ORDERED: Sod Polystyrene Sulf 15 gm/60 ml Susp PO ONE (18:57)
[2017-01-30] MEDS ORDERED: Sodium Chloride 0.9% 1,000 ML IV SCH (19:00)
[2017-01-30] MEDS: guaiFENesin 100 mg/5 ml Syrup UD PO PRN (20:46)
[2017-01-30] MEDS: Insulin Detemir 100 units/ml Vial (Levemir) SC SCH (22:20)
[2017-01-31] MEDS: Pantoprazole 40 mg EC Tab PO SCH (05:58)
[2017-01-31] MEDS: Levothyroxine 125 MCG TAB PO SCH (05:58)
[2017-01-31 06:24] LABS: HEMATOCRIT 35.1 % (36.0-48.0); MEAN CELL VOLUME 82.4 fl (80.0-105.0); MEAN CORPUSCULAR HEMOGLOBIN 27.9 pg (25.0-35.0); MEAN CORPUSCULAR HGB CONC 33.9 g/dl (31.0-37.0); MEAN PLATELET VOLUME 10.7 fl (7.0-11.0); WHITE BLOOD COUNT 7.8 10^3/ul (4.5-11.0)
[2017-01-31 06:53] LABS: ALB/GLOB RATIO 1.1 (1.1-1.8); BILIRUBIN,TOTAL 0.7 mg/dL (0.2-1.3); CALCIUM 8.1 mg/dL (8.4-10.5); TOTAL PROTEIN 6.5 g/dL (5.8-8.3)
[2017-01-31 07:57] LABS: URINE BILIRUBIN NEGATIVE (NEGATIVE); URINE BLOOD TRACE-INTACT (NEGATIVE); URINE GLUCOSE (UA) NEGATIVE (NEGATIVE); URINE KETONE NEGATIVE (NEGATIVE); URINE LEUKOCYTE ESTERASE MODERATE Leu/uL (NEGATIVE); URINE PROTEIN TRACE mg/dL (<30 mg/dL); URINE UROBILINOGEN 0.2 E.U./dL (<1 E.U./dL)
[2017-01-31 08:03] LABS: URINE APPEARANCE SL CLOUDY (CLEAR); URINE COLOR LIGHT YELLOW (YELLOW)
[2017-01-31 08:15] LABS: URINE BACTERIA MOD (NEG); URINE RBC 0 - 2 /hpf (0-2)
[2017-01-31 08:16] LABS: URINE EPITHELIAL CELLS MANY /hpf (0-5)
--- NOTE | 2017-01-31 08:33 | CP.PCM.PN ---
Subjective - Date & Time of Evaluation Date of Evaluation: 01/30/17 Time of Evaluation: 14:00 - Subjective Subjective: 51 yo F w/ pmh of CHF w/ severe systolic dysfunction, admitted with hyperglycemia, CHF exacerbation symptoms; Patient reports some cough today; otherwise, acknowledges leg swelling is overall improved; Objective - Vital Signs/Intake and Output Vital Signs (last 24 hours): Temp Pulse Resp BP Pulse Ox 97.2 F L 85 20 114/72 96 01/31/17 08:19 01/31/17 08:19 01/31/17 08:19 01/31/17 08:19 01/31/17 08:19 Intake and Output: 01/31/17 01/31/17 06:59 18:59 Intake Total 1260 720 Balance 1260 720 - Medications Medications: Current Medications Apixaban (Eliquis) 5 mg PO BID [facility] PRN Reason: Protocol Last Admin: 01/30/17 18:37 Dose: 5 mg Bumetanide (Bumex) 1 mg PO Q8H [facility] Last Admin: 01/27/17 05:30 Dose: 1 mg Clonazepam (Klonopin) 0.5 mg PO DAILY [facility] PRN Reason: Protocol Last Admin: 01/30/17 10:26 Dose: 0.5 mg Digoxin (Lanoxin) 0.125 mg PO 1400 [facility] Last Admin: 01/29/17 13:43 Dose: 0.125 mg Ferrous Sulfate (Feosol) 324 mg PO DAILY [facility] Last Admin: 01/30/17 10:25 Dose: 324 mg Furosemide (Lasix) 20 mg IVP Q8 [facility] Last Admin: 01/30/17 07:03 Dose: Not Given Gabapentin (Neurontin) 100 mg PO BID [facility] PRN Reason: Protocol Last Admin: 01/30/17 18:39 Dose: 100 mg Guaifenesin (Robitussin) 100 mg PO Q4H PRN PRN Reason: Cough Last Admin: 01/30/17 20:46 Dose: 100 mg Sodium Chloride (Sodium Chloride 0.9%) 1,000 mls @ 75 mls/hr IV .[id number] [facility] Last Admin: 01/30/17 20:42 Dose: 75 mls/hr Insulin Detemir (Levemir) 25 unit SC HS [facility] Last Admin: 01/30/17 22:20 Dose: 25 unit Insulin Human Regular (Humulin R High) 0 units SC ACHS [facility] PRN Reason: Protocol Last Admin: 01/30/17 22:34 Dose: Not Given Levothyroxine Sodium (Synthroid) 125 mcg PO 0600 [facility] Last Admin: 01/31/17 05:58 Dose: 125 mcg Losartan Potassium (Cozaar) 12.5 mg PO DAILY [facility] Last Admin: 01/29/17 09:27 Dose: Not Given Midodrine (Proamatine) 5 mg PO TID [facility] Last Admin: 01/30/17 18:40 Dose: 5 mg Nystatin (Nystop Topical Powder) 1 gm TOP BID [facility] Last Admin: 01/30/17 18:39 Dose: 1 applic Nystatin/Triamcinolone Acetonide (Nystatin/Triamcinolone Cream) 1 ea TOP BID [facility] Last Admin: 01/30/17 18:40 Dose: 1 applic Ondansetron HCl (Zofran Inj) 4 mg IVP Q4H PRN PRN Reason: Nausea/Vomiting Last Admin: 01/27/17 07:35 Dose: 4 mg Pantoprazole Sodium (Protonix Ec Tab) 40 mg PO 0600 [facility] Last Admin: 01/31/17 05:58 Dose: 40 mg Quetiapine Fumarate (Seroquel) 50 mg PO [facility] PRN Reason: Protocol Last Admin: 01/30/17 22:20 Dose: 50 mg Spironolactone (Aldactone) 25 mg PO BID [facility] Last Admin: 01/28/17 18:54 Dose: Not Given Tramadol HCl (Ultram) 50 mg PO Q8H PRN PRN Reason: Pain, moderate (4-7) Last Admin: 01/28/17 10:47 Dose: 50 mg - Labs Labs: 01/31/17 05:30 01/31/17 05:30 PT 14.2 SECONDS (9.4-12.5) H 01/27/17 01:30 INR 1.30 (0.93-1.08) H 01/27/17 01:30 APTT 28.1 Seconds (25.1-36.5) 01/27/17 01:30 - Constitutional Appears: Non-toxic, No Acute Distress - Head Exam Head Exam: NORMAL INSPECTION - Eye Exam Eye Exam: Normal appearance. absent: Scleral icterus - ENT Exam ENT Exam: Mucous Membranes Moist - Respiratory Exam Respiratory Exam: absent: Respiratory Distress Additional comments: decreased breath sounds bilaterally from bases to more than midway up lung parry; - Cardiovascular Exam Cardiovascular Exam: Tachycardia, Irregular Rhythm - GI/Abdominal Exam GI & Abdominal Exam: Soft. absent: Distended, Tenderness - Exam Exam: absent: Bladder Distension - Extremities Exam Additional comments: bilateral lower leg moderately edematous; - Neurological Exam Neurological Exam: Alert, Awake - Psychiatric Exam Psychiatric exam: absent: Agitated - Skin Skin Exam: Warm. absent: Cyanosis Assessment and Plan (1) Hypotension Assessment & Plan: Appears to be hypovolemic hypotension in the setting of over-diuresis (rather than cardiogenic shock as previously thought with patient actually worsening on inotropic agent); showing some response to volume challenge (500 cc over 2 hrs) ; decreasing IVF to NS at 75 cc/hr to avoid CHF exacerbation in setting of severe systolic dysfunction and MR; Status: Acute (2) Acute kidney injury Assessment & Plan: Likely pre-renal etiology due to hypovolemia rather than cardiorenal etiology that was seen on previous admissions; however, cannot rule out extension to ATN with such profound hypotension; IVF as above; kayexalate for hyperkalemia; Status: Acute (3) Hyponatremia Assessment & Plan: In the setting of hypovolemia, need to correct volume status first and then re- assess; obtaining Ur osm and Na; Status: Acute (4) Metabolic alkalosis Assessment & Plan: Contraction alkalosis from diuretics; IVF as above; Status: Acute (5) Pleural effusion Assessment & Plan: Chronic; needs to be on prolonged and stable diuretic regimen once hypovolemia corrected; Status: Chronic (6) CHF (congestive heart failure) Assessment & Plan: Patient reports being adherent to her diuretics even while at the residential; appears to have been on a stable regimen as evidenced by her clinical presentation on admission (despite her severe CHF status, was her best that we have seen over the past few months - weight > 10 lbs below that on discharge and with lower ext/abd wall edema much improved); reports having gone to her PMD recently, need to obtain records to see what changes were made and restart the same meds once hypovolemia stabilized; -continue to hold diuretics and ARB; should restart B-melissa per cardio recs; Status: Chronic
[2017-01-31] MEDS: Insulin Reg-HIGH-Coverage SC SCH ×4 (11:29→21:47)
[2017-01-31] MEDS: Nystatin 100,000 Units/gm Topical Pow(15 gm) TOP SCH ×2 (11:31→18:29)
[2017-01-31] MEDS: Nystatin-Triamcinolone Cream(30 gm) TOP SCH ×2 (11:32→19:50)
--- NOTE | 2017-01-31 12:25 | CP.PCM.PN ---
<David Mejia - Last Filed: 01/31/17 12:16> Subjective - Date & Time of Evaluation Date of Evaluation: 01/31/17 Time of Evaluation: 09:00 - Subjective Subjective: Dr. Perry Kenney Pt was seen and examined at bedside. No acute complaints at this time. No acute or adverse events overnight as per nursing staff. Pt states her lower extremities are feeling and looking better. Pt is having nystatin cream applied to affected rash areas underneath her breasts. Pt denied fever, chills, sob, chest pains, abdominal pains, nausea, vomitting, diarrhea, constipation or urinary symptoms. Objective - Vital Signs/Intake and Output Vital Signs (last 24 hours): Temp Pulse Resp BP Pulse Ox 97.2 F L 85 20 114/72 96 01/31/17 08:19 01/31/17 08:19 01/31/17 08:19 01/31/17 08:19 01/31/17 08:19 Intake and Output: 01/31/17 01/31/17 06:59 18:59 Intake Total 1260 720 Balance 1260 720 - Medications Medications: Current Medications Apixaban (Eliquis) 5 mg PO BID [facility] PRN Reason: Protocol Last Admin: 01/31/17 11:49 Dose: 5 mg Bumetanide (Bumex) 1 mg PO Q8H [facility] Last Admin: 01/27/17 05:30 Dose: 1 mg Clonazepam (Klonopin) 0.5 mg PO DAILY [facility] PRN Reason: Protocol Last Admin: 01/31/17 11:30 Dose: 0.5 mg Digoxin (Lanoxin) 0.125 mg PO 1400 [facility] Last Admin: 01/29/17 13:43 Dose: 0.125 mg Ferrous Sulfate (Feosol) 324 mg PO DAILY [facility] Last Admin: 01/31/17 11:35 Dose: Not Given Furosemide (Lasix) 20 mg IVP Q8 [facility] Last Admin: 01/30/17 07:03 Dose: Not Given Gabapentin (Neurontin) 100 mg PO BID [facility] PRN Reason: Protocol Last Admin: 01/31/17 11:30 Dose: 100 mg Guaifenesin (Robitussin) 100 mg PO Q4H PRN PRN Reason: Cough Last Admin: 01/30/17 20:46 Dose: 100 mg Insulin Detemir (Levemir) 25 unit SC [facility] Last Admin: 01/30/17 22:20 Dose: 25 unit Insulin Human Regular (Humulin R High) 0 units SC [facility] PRN Reason: Protocol Last Admin: 01/31/17 11:29 Dose: Not Given Levothyroxine Sodium (Synthroid) 125 mcg PO 0600 [facility] Last Admin: 01/31/17 05:58 Dose: 125 mcg Losartan Potassium (Cozaar) 12.5 mg PO DAILY [facility] Last Admin: 01/29/17 09:27 Dose: Not Given Nystatin (Nystop Topical Powder) 1 gm TOP BID [facility] Last Admin: 01/31/17 11:31 Dose: 1 applic Nystatin/Triamcinolone Acetonide (Nystatin/Triamcinolone Cream) 1 ea TOP BID [facility] Last Admin: 01/31/17 11:32 Dose: 1 applic Ondansetron HCl (Zofran Inj) 4 mg IVP Q4H PRN PRN Reason: Nausea/Vomiting Last Admin: 01/27/17 07:35 Dose: 4 mg Pantoprazole Sodium (Protonix Ec Tab) 40 mg PO 0600 [facility] Last Admin: 01/31/17 05:58 Dose: 40 mg Quetiapine Fumarate (Seroquel) 50 mg PO [facility] PRN Reason: Protocol Last Admin: 01/31/17 11:32 Dose: 50 mg Spironolactone (Aldactone) 25 mg PO BID [facility] Last Admin: 01/31/17 11:29 Dose: Not Given Tramadol HCl (Ultram) 50 mg PO Q8H PRN PRN Reason: Pain, moderate (4-7) Last Admin: 01/28/17 10:47 Dose: 50 mg - Labs Labs: 01/31/17 05:30 01/31/17 05:30 PT 14.2 SECONDS (9.4-12.5) H 01/27/17 01:30 INR 1.30 (0.93-1.08) H 01/27/17 01:30 APTT 28.1 Seconds (25.1-36.5) 01/27/17 01:30 - Constitutional Appears: No Acute Distress - Head Exam Head Exam: ATRAUMATIC, NORMAL INSPECTION, NORMOCEPHALIC - Eye Exam Eye Exam: EOMI, Normal appearance, PERRL Pupil Exam: NORMAL ACCOMODATION, PERRL - ENT Exam ENT Exam: Mucous Membranes Moist, Normal Exam - Neck Exam Neck Exam: Full ROM, Normal Inspection. absent: Lymphadenopathy - Respiratory Exam Respiratory Exam: Clear to Ausculation Bilateral, NORMAL BREATHING PATTERN - Cardiovascular Exam Cardiovascular Exam: REGULAR RHYTHM, +S1, +S2. absent: Murmur - GI/Abdominal Exam GI & Abdominal Exam: Soft, Normal Bowel Sounds. absent: Tenderness - Extremities Exam Extremities Exam: Pedal Edema (1+) - Neurological Exam Neurological Exam: Alert, Awake, CN II-XII Intact, Normal Gait, Oriented x3 - Psychiatric Exam Psychiatric exam: Normal Affect, Normal Mood - Skin Skin Exam: Dry, Intact, Normal Color, Rash (B/l Breast), Warm Assessment and Plan - Assessment and Plan (Free Text) Assessment: 51 F with a PMHx of DM2, CHF, HTN, non-ischemic cardiomyopathy, chronic pleural effusion, DVT, PE, hypothyroidism, and schizophrenia [place] [facility] [place] with complaints of b/l LE swelling and pain. Last ECHO EF was 30%. Plan: 1. Acute on chronic CHF exacerbation (systolic dysfunction) - Lasix, Bumex, Digoxin, Aldactone, and Losartan all held due to hypotension/ overdiuresisng - LE dopplers negative for DVT - Leg elevation, OOB - Daily weights, strict I/Os - Cardiology on consult, f/u recommendations, continue to hold ARETHA, however discuss restarting BB 2. Hypotension - stable - showing some response to volume challenge (500 cc over 2 hrs); decreasing IVF to NS at 75 cc/hr to avoid CHF exacerbation in setting of severe systolic dysfunction and MR - diuretics held - midodrine 5mg PO given - midodrine 5mg PO TID - NS bolus as per Nephro, continue to monitor 3. OLLIE/Hyponatremia - Cr downtrending improving OLLIE - Sodium uptrending to 127, will continue to monitor - Nephro on consult, Dr. French f/u Ur osm and Na 4. Hyperkalemia - stable, s/p insulin/dextrose - EKG showed no acute changes 5. B/L LE Cellulitis; Hx of chronic venous stasis - Vanc and zosyn given in ED; will hold off on starting abx at this time per ID recs - no further leukocytosis, afebrile - Pain control prn 6. B/L breast rash - Likely candidiasis - continue nystatin cream, nystatin powder - ID consulted, f/u recommendations 7. Diabetes Mellitus Type 2 (uncontrolled) - Continue Levemir 25u QHS - High dose Humalog ISS - Accuchecks ACHS - Continue gabapentin 8. Hypothyroidism -Continue synthroid 9. Atrial Fibrillation - Continue Eliquis 5 mg BID - Continue to monitor PPX: -Protonix 40mg -Eliquis 5mg BID Diet: Consistent Carbs Patient was seen, examined and discussed with attending <Annmarie Amador - Last Filed: 01/31/17 18:19> Objective - Vital Signs/Intake and Output Vital Signs (last 24 hours): Temp Pulse Resp BP Pulse Ox 97.8 F 124 H 20 113/74 95 01/31/17 17:20 01/31/17 17:20 01/31/17 17:20 01/31/17 17:20 01/31/17 17:20 Intake and Output: 01/31/17 01/31/17 06:59 18:59 Intake Total 1260 1520 Output Total 500 Balance 1260 1020 - Medications Medications: Current Medications Apixaban (Eliquis) 5 mg PO BID [facility] PRN Reason: Protocol Last Admin: 01/31/17 11:49 Dose: 5 mg Bumetanide (Bumex) 1 mg PO Q8H [facility] Last Admin: 01/27/17 05:30 Dose: 1 mg Clonazepam (Klonopin) 0.5 mg PO DAILY [facility] PRN Reason: Protocol Last Admin: 01/31/17 11:30 Dose: 0.5 mg Digoxin (Lanoxin) 0.125 mg PO 1400 [facility] Last Admin: 01/29/17 13:43 Dose: 0.125 mg Ferrous Sulfate (Feosol) 324 mg PO DAILY [facility] Last Admin: 01/31/17 11:35 Dose: Not Given Furosemide (Lasix) 20 mg IVP Q8 [facility] Last Admin: 01/30/17 07:03 Dose: Not Given Gabapentin (Neurontin) 100 mg PO BID [facility] PRN Reason: Protocol Last Admin: 01/31/17 11:30 Dose: 100 mg Guaifenesin (Robitussin) 100 mg PO Q4H PRN PRN Reason: Cough Last Admin: 01/31/17 16:21 Dose: 100 mg Insulin Detemir (Levemir) 25 unit SC HS [facility] Last Admin: 01/30/17 22:20 Dose: 25 unit Insulin Human Regular (Humulin R High) 0 units SC [facility] PRN Reason: Protocol Last Admin: 01/31/17 13:32 Dose: Not Given Levothyroxine Sodium (Synthroid) 125 mcg PO 0600 [facility] Last Admin: 01/31/17 05:58 Dose: 125 mcg Losartan Potassium (Cozaar) 12.5 mg PO DAILY [facility] Last Admin: 01/29/17 09:27 Dose: Not Given Nystatin (Nystop Topical Powder) 1 gm TOP BID [facility] Last Admin: 01/31/17 11:31 Dose: 1 applic Nystatin/Triamcinolone Acetonide (Nystatin/Triamcinolone Cream) 1 ea TOP BID [facility] Last Admin: 01/31/17 11:32 Dose: 1 applic Ondansetron HCl (Zofran Inj) 4 mg IVP Q4H PRN PRN Reason: Nausea/Vomiting Last Admin: 01/27/17 07:35 Dose: 4 mg Pantoprazole Sodium (Protonix Ec Tab) 40 mg PO 0600 [facility] Last Admin: 01/31/17 05:58 Dose: 40 mg Quetiapine Fumarate (Seroquel) 50 mg PO [facility] PRN Reason: Protocol Last Admin: 01/31/17 11:32 Dose: 50 mg Spironolactone (Aldactone) 25 mg PO BID [facility] Last Admin: 01/31/17 11:29 Dose: Not Given Tramadol HCl (Ultram) 50 mg PO Q8H PRN PRN Reason: Pain, moderate (4-7) Last Admin: 01/28/17 10:47 Dose: 50 mg - Labs Labs: 01/31/17 05:30 01/31/17 05:30 PT 14.2 SECONDS (9.4-12.5) H 01/27/17 01:30 INR 1.30 (0.93-1.08) H 01/27/17 01:30 APTT 28.1 Seconds (25.1-36.5) 01/27/17 01:30 Attending/Attestation - Attestation I have personally seen and examined this patient.: Yes I have fully participated in the care of the patient.: Yes I have reviewed all pertinent clinical information, including history, physical exam and plan: Yes Notes (Text): I have seen and examined the patient at bedside. Agree with the above note with the following additions/ exceptions: Briefly this is 51 year old female with history of DM-2, CHF (EF~30%), HTN, chronic leg edema, DVT/ PE on eliquis, hypothyroidism, schizophrenia was admitted with acute on chronic CHF exacerbation and bilateral LE edema. Patient denies any complaints at this time. Hypotension resolved. Midodrine was discontinued. Renal function has improved. Will continue to hold diuretics. Hyperkalemia has resolved. Her LE cellulitis is much better. She is not on any antibiotics at this time. Continue nystatin powder for fungal rash. Upon discharge patient will follow up with Dr Roman. Dr Annmarie Amador
[2017-01-31] MEDS: guaiFENesin 100 mg/5 ml Syrup UD PO PRN ×2 (16:21→21:52)
--- NOTE | 2017-01-31 16:31 | CP.PCM.PN ---
Subjective - Date & Time of Evaluation Date of Evaluation: 01/31/17 Time of Evaluation: 15:45 - Subjective Subjective: Infectious Disease Follow Up: January 31, 2017 51 yo female presenting with worsening bilateral LE swelling and pain. The patient has an extensive medical history that includes DM, CHF, HTN, non-ischemic cardiomyopathy, chronic pleural effusion, DVT, PE, hypothyroidism, and schizophrenia. The patient is currently living in a residential. The patient was set up for living arrangements on her last hospitalization one month ago. Unclear what happened as the patient is unwilling to talk about it. She remains relatively uncooperative with exam. Objective - Vital Signs/Intake and Output Vital Signs (last 24 hours): Temp Pulse Resp BP Pulse Ox 97.2 F L 85 20 114/72 96 01/31/17 08:19 01/31/17 08:19 01/31/17 08:19 01/31/17 08:19 01/31/17 08:19 Intake and Output: 01/31/17 01/31/17 06:59 18:59 Intake Total 1260 1520 Output Total 500 Balance 1260 1020 - Medications Medications: Current Medications Apixaban (Eliquis) 5 mg PO BID [facility] PRN Reason: Protocol Last Admin: 01/31/17 11:49 Dose: 5 mg Bumetanide (Bumex) 1 mg PO Q8H [facility] Last Admin: 01/27/17 05:30 Dose: 1 mg Clonazepam (Klonopin) 0.5 mg PO DAILY [facility] PRN Reason: Protocol Last Admin: 01/31/17 11:30 Dose: 0.5 mg Digoxin (Lanoxin) 0.125 mg PO 1400 [facility] Last Admin: 01/29/17 13:43 Dose: 0.125 mg Ferrous Sulfate (Feosol) 324 mg PO DAILY [facility] Last Admin: 01/31/17 11:35 Dose: Not Given Furosemide (Lasix) 20 mg IVP Q8 [facility] Last Admin: 01/30/17 07:03 Dose: Not Given Gabapentin (Neurontin) 100 mg PO BID [facility] PRN Reason: Protocol Last Admin: 01/31/17 11:30 Dose: 100 mg Guaifenesin (Robitussin) 100 mg PO Q4H PRN PRN Reason: Cough Last Admin: 01/31/17 16:21 Dose: 100 mg Insulin Detemir (Levemir) 25 unit SC HS [facility] Last Admin: 01/30/17 22:20 Dose: 25 unit Insulin Human Regular (Humulin R High) 0 units SC [facility] PRN Reason: Protocol Last Admin: 01/31/17 13:32 Dose: Not Given Levothyroxine Sodium (Synthroid) 125 mcg PO 0600 [facility] Last Admin: 01/31/17 05:58 Dose: 125 mcg Losartan Potassium (Cozaar) 12.5 mg PO DAILY [facility] Last Admin: 01/29/17 09:27 Dose: Not Given Nystatin (Nystop Topical Powder) 1 gm TOP BID [facility] Last Admin: 01/31/17 11:31 Dose: 1 applic Nystatin/Triamcinolone Acetonide (Nystatin/Triamcinolone Cream) 1 ea TOP BID [facility] Last Admin: 01/31/17 11:32 Dose: 1 applic Ondansetron HCl (Zofran Inj) 4 mg IVP Q4H PRN PRN Reason: Nausea/Vomiting Last Admin: 01/27/17 07:35 Dose: 4 mg Pantoprazole Sodium (Protonix Ec Tab) 40 mg PO 0600 [facility] Last Admin: 01/31/17 05:58 Dose: 40 mg Quetiapine Fumarate (Seroquel) 50 [facility] PRN Reason: Protocol Last Admin: 01/31/17 11:32 Dose: 50 mg Spironolactone (Aldactone) 25 mg PO BID [facility] Last Admin: 01/31/17 11:29 Dose: Not Given Tramadol HCl (Ultram) 50 mg PO Q8H PRN PRN Reason: Pain, moderate (4-7) Last Admin: 01/28/17 10:47 Dose: 50 mg - Labs Labs: 01/31/17 05:30 01/31/17 05:30 PT 14.2 SECONDS (9.4-12.5) H 01/27/17 01:30 INR 1.30 (0.93-1.08) H 01/27/17 01:30 APTT 28.1 Seconds (25.1-36.5) 01/27/17 01:30 - Constitutional Appears: Non-toxic, No Acute Distress, Chronically Ill - Head Exam Head Exam: ATRAUMATIC, NORMOCEPHALIC - Eye Exam Eye Exam: EOMI, PERRL Pupil Exam: NORMAL ACCOMODATION, PERRL - ENT Exam ENT Exam: Mucous Membranes Moist, Normal External Ear Exam, TM's Normal Bilaterally - Neck Exam Neck Exam: Full ROM, Normal Inspection - Respiratory Exam Respiratory Exam: Decreased Breath Sounds, NORMAL BREATHING PATTERN. absent: Rales, Rhonchi, Wheezes - Cardiovascular Exam Cardiovascular Exam: REGULAR RHYTHM, RRR, +S1, +S2 - GI/Abdominal Exam GI & Abdominal Exam: Distended, Soft, Normal Bowel Sounds. absent: Tenderness - Extremities Exam Extremities Exam: Joint Swelling, Pedal Edema Additional comments: erythematous b/l le, +3-4 pitting edema, chronic venous stasis - Neurological Exam Neurological Exam: Alert, Awake, CN II-XII Intact, Oriented x3 - Psychiatric Exam Psychiatric exam: Agitated, Depressed - Skin Skin Exam: Dry, Intact Assessment and Plan - Assessment and Plan (Free Text) Assessment: 51 yo female who is non-compliant with her meds presenting with bilateral lower leg swelling and pain. Uncontrolled CHF. At worse, mild cellulitis. Would hold off on antibiotic therapy and treat CHF at this time. Supportive care. There is a rash under the breasts which is fungal in nature. I would continue with nystatin cream for these areas. Patient is generally uncooperative with exam. Cultures negative to date. The patient is receiving Dobutamine for hypotension. Thank you for allowing me to participate in the care of the patient, we will follow with you.
[2017-01-31] MEDS: Insulin Detemir 100 units/ml Vial (Levemir) SC SCH (21:51)
[2017-02-01] MEDS: guaiFENesin 100 mg/5 ml Syrup UD PO PRN ×2 (02:32→21:21)
[2017-02-01] MEDS: Levothyroxine 125 MCG TAB PO SCH (05:25)
[2017-02-01] MEDS: Pantoprazole 40 mg EC Tab PO SCH (05:25)
[2017-02-01 07:13] LABS: HEMATOCRIT 39.1 % (36.0-48.0); MEAN CELL VOLUME 82.8 fl (80.0-105.0); MEAN CORPUSCULAR HEMOGLOBIN 27.5 pg (25.0-35.0); MEAN CORPUSCULAR HGB CONC 33.2 g/dl (31.0-37.0); MEAN PLATELET VOLUME 10.1 fl (7.0-11.0); WHITE BLOOD COUNT 7.2 10^3/ul (4.5-11.0)
--- NOTE | 2017-02-01 07:41 | CP.PCM.PN ---
<Eduardo Flynn - Last Filed: 02/01/17 11:10> Subjective - Date & Time of Evaluation Date of Evaluation: 02/01/17 Time of Evaluation: 07:10 - Subjective Subjective: patient was seen and examined at bedside. pt complains of a cough that she's been having that has not greatly improved with Robitussin. Otherwise, the patient denies fevers, chills, chest pain, n/v/d, shortness of breath, abdominal pain, weakness, headaches or other complaints. Objective - Vital Signs/Intake and Output Vital Signs (last 24 hours): Temp Pulse Resp BP Pulse Ox 97 F L 116 H 21 124/85 94 L 02/01/17 06:10 02/01/17 07:06 02/01/17 06:10 02/01/17 06:10 02/01/17 06:10 Intake and Output: 02/01/17 02/01/17 06:59 18:59 Intake Total 300 60 Output Total 600 600 Balance -300 -540 - Medications Medications: Current Medications Apixaban (Eliquis) 5 mg PO BID [facility] PRN Reason: Protocol Last Admin: 01/31/17 18:27 Dose: 5 mg Bumetanide (Bumex) 1 mg PO Q8H [facility] Last Admin: 01/27/17 05:30 Dose: 1 mg Clonazepam (Klonopin) 0.5 mg PO DAILY [facility] PRN Reason: Protocol Last Admin: 01/31/17 11:30 Dose: 0.5 mg Digoxin (Lanoxin) 0.125 mg PO 1400 [facility] Last Admin: 01/29/17 13:43 Dose: 0.125 mg Ferrous Sulfate (Feosol) 324 mg PO DAILY [facility] Last Admin: 01/31/17 11:35 Dose: Not Given Furosemide (Lasix) 20 mg IVP Q8 [facility] Last Admin: 01/30/17 07:03 Dose: Not Given Gabapentin (Neurontin) 100 mg PO BID [facility] PRN Reason: Protocol Last Admin: 01/31/17 18:29 Dose: 100 mg Guaifenesin (Robitussin) 100 mg PO Q4H PRN PRN Reason: Cough Last Admin: 02/01/17 02:32 Dose: 100 mg Insulin Detemir (Levemir) 25 unit SC [facility] Last Admin: 01/31/17 21:51 Dose: 25 unit Insulin Human Regular (Humulin R High) 0 units SC ACHS [facility] PRN Reason: Protocol Last Admin: 01/31/17 21:47 Dose: Not Given Levothyroxine Sodium (Synthroid) 125 mcg PO 0600 [facility] Last Admin: 02/01/17 05:25 Dose: 125 mcg Losartan Potassium (Cozaar) 12.5 mg PO DAILY [facility] Last Admin: 01/29/17 09:27 Dose: Not Given Nystatin (Nystop Topical Powder) 1 gm TOP BID [facility] Last Admin: 01/31/17 18:29 Dose: Not Given Nystatin/Triamcinolone Acetonide (Nystatin/Triamcinolone Cream) 1 ea TOP BID [facility] Last Admin: 01/31/17 19:50 Dose: 1 applic Ondansetron HCl (Zofran Inj) 4 mg IVP Q4H PRN PRN Reason: Nausea/Vomiting Last Admin: 01/27/17 07:35 Dose: 4 mg Pantoprazole Sodium (Protonix Ec Tab) 40 mg PO 0600 [facility] Last Admin: 02/01/17 05:25 Dose: 40 mg Quetiapine Fumarate (Seroquel) 50 mg PO [facility] PRN Reason: Protocol Last Admin: 01/31/17 21:52 Dose: 50 mg Spironolactone (Aldactone) 25 mg PO BID [facility] Last Admin: 01/31/17 11:29 Dose: Not Given Tramadol HCl (Ultram) 50 mg PO Q8H PRN PRN Reason: Pain, moderate (4-7) Last Admin: 01/31/17 21:52 Dose: 50 mg - Labs Labs: 02/01/17 06:40 01/31/17 05:30 PT 14.2 SECONDS (9.4-12.5) H 01/27/17 01:30 INR 1.30 (0.93-1.08) H 01/27/17 01:30 APTT 28.1 Seconds (25.1-36.5) 01/27/17 01:30 - Constitutional Appears: Well, Non-toxic, No Acute Distress - Head Exam Head Exam: ATRAUMATIC, NORMAL INSPECTION, NORMOCEPHALIC - Eye Exam Eye Exam: EOMI, Normal appearance, PERRL Pupil Exam: NORMAL ACCOMODATION - ENT Exam ENT Exam: Mucous Membranes Moist, Normal Exam - Neck Exam Neck Exam: Full ROM - Respiratory Exam Respiratory Exam: Decreased Breath Sounds, Clear to Ausculation Bilateral, NORMAL BREATHING PATTERN. absent: Accessory Muscle Use, Rales, Rhonchi, Wheezes , Respiratory Distress - Cardiovascular Exam Cardiovascular Exam: Tachycardia, REGULAR RHYTHM. absent: Murmur - GI/Abdominal Exam GI & Abdominal Exam: Soft, Normal Bowel Sounds. absent: Distended, Tenderness - Extremities Exam Extremities Exam: absent: Calf Tenderness Additional comments: 2+ pedal edema b/l erythematous and peeling skin - Back Exam Back Exam: NORMAL INSPECTION - Neurological Exam Neurological Exam: Alert, Awake, Oriented x3 - Psychiatric Exam Psychiatric exam: Normal Affect, Normal Mood - Skin Skin Exam: Erythema (b/l LE diffuse), Normal Color, Warm Additional comments: skin peeling Assessment and Plan - Assessment and Plan (Free Text) Assessment: 51 F with a PMHx of DM2, CHF, HTN, non-ischemic cardiomyopathy, chronic pleural effusion, DVT, PE, hypothyroidism, and schizophrenia [place] [facility] [place] with complaints of b/l LE swelling and pain. Last ECHO was 30%. Plan: 1. Acute on chronic CHF exacerbation (systolic dysfunction) - restart Lasix 20mg Q8 IVP and Aldactone due to improving BP - still holding Bumex, Digoxin, and Losartan per Renal recs - LE dopplers negative for DVT - Leg elevation, OOB - Daily weights, strict I/Os - Cardiology on consult, f/u recommendations 2. Hypotension, resolved 3. Tacycardia likely due to Hx Afib - metoprolol started - currently NSR - continue Eliquis 5 mg BID 4. OLLIE/Hyponatremia, improving - Cr 1 - Sodium 130, will continue to monitor - Nephro on consult, f/u recommendations 5. cough - Robitussin - duonebs x1 6. B/L LE Cellulitis vs Hx of chronic venous stasis - hold off on starting abx at this time per ID recs - no leukocytosis, afebrile - Pain control PRN 7. B/L breast rash - Likely candidiasis - continue nystatin cream, nystatin powder - ID consulted, f/u recommendations 8. Diabetes Mellitus Type 2 (uncontrolled) - Continue Levemir 25u QHS - High dose Humalog ISS - Accuchecks ACHS - Continue gabapentin 9. Hypothyroidism - Continue synthroid PPX: -Protonix 40mg -Eliquis 5mg BID Diet: Consistent Carbs Patient was seen, examined and discussed with attending, Dr. Perry Flynn PGY1 <Annmarie Amador - Last Filed: 02/01/17 16:29> Objective - Vital Signs/Intake and Output Vital Signs (last 24 hours): Temp Pulse Resp BP Pulse Ox 97.0 F L 90 18 124/85 98 02/01/17 09:11 02/01/17 09:11 02/01/17 09:11 02/01/17 14:08 02/01/17 09:11 Intake and Output: 02/01/17 02/01/17 06:59 18:59 Intake Total 300 1080 Output Total 600 600 Balance -300 480 - Medications Medications: Current Medications Apixaban (Eliquis) 5 mg PO BID [facility] PRN Reason: Protocol Last Admin: 02/01/17 11:17 Dose: Not Given Bumetanide (Bumex) 1 mg PO Q8H [facility] Last Admin: 01/27/17 05:30 Dose: 1 mg Clonazepam (Klonopin) 0.5 mg PO DAILY [facility] PRN Reason: Protocol Last Admin: 02/01/17 11:18 Dose: Not Given Digoxin (Lanoxin) 0.125 mg PO 1400 [facility] Last Admin: 01/29/17 13:43 Dose: 0.125 mg Ferrous Sulfate (Feosol) 324 mg PO DAILY [facility] Last Admin: 02/01/17 11:18 Dose: Not Given Furosemide (Lasix) 20 mg IVP Q8 [facility] Last Admin: 02/01/17 14:08 Dose: 20 mg Gabapentin (Neurontin) 100 mg PO BID [facility] PRN Reason: Protocol Last Admin: 02/01/17 11:18 Dose: Not Given Guaifenesin (Robitussin) 100 mg PO Q4H PRN PRN Reason: Cough Last Admin: 02/01/17 02:32 Dose: 100 mg Insulin Detemir (Levemir) 25 unit SC HS [facility] Last Admin: 01/31/17 21:51 Dose: 25 unit Insulin Human Regular (Humulin R High) 0 units SC ACHS [facility] PRN Reason: Protocol Last Admin: 02/01/17 12:21 Dose: 2 units Levothyroxine Sodium (Synthroid) 125 mcg PO 0600 [facility] Last Admin: 02/01/17 05:25 Dose: 125 mcg Losartan Potassium (Cozaar) 12.5 mg PO DAILY [facility] Last Admin: 01/29/17 09:27 Dose: Not Given Metoprolol Tartrate (Lopressor) 12.5 mg PO BID [facility] Last Admin: 02/01/17 11:18 Dose: Not Given Nystatin (Nystop Topical Powder) 1 gm TOP BID [facility] Last Admin: 02/01/17 11:19 Dose: Not Given Nystatin/Triamcinolone Acetonide (Nystatin/Triamcinolone Cream) 1 ea TOP BID [facility] Last Admin: 02/01/17 11:18 Dose: Not Given Ondansetron HCl (Zofran Inj) 4 mg IVP Q4H PRN PRN Reason: Nausea/Vomiting Last Admin: 02/01/17 10:13 Dose: 4 mg Pantoprazole Sodium (Protonix Ec Tab) 40 mg PO 0600 [facility] Last Admin: 02/01/17 05:25 Dose: 40 mg Quetiapine Fumarate (Seroquel) 50 mg PO [facility] PRN Reason: Protocol Last Admin: 02/01/17 11:19 Dose: Not Given Spironolactone (Aldactone) 25 mg PO BID [facility] Last Admin: 01/31/17 11:29 Dose: Not Given Tramadol HCl (Ultram) 50 mg PO Q8H PRN PRN Reason: Pain, moderate (4-7) Last Admin: 01/31/17 21:52 Dose: 50 mg - Labs Labs: 02/01/17 06:40 02/01/17 06:40 PT 14.2 SECONDS (9.4-12.5) H 01/27/17 01:30 INR 1.30 (0.93-1.08) H 01/27/17 01:30 APTT 28.1 Seconds (25.1-36.5) 01/27/17 01:30 Attending/Attestation - Attestation I have personally seen and examined this patient.: Yes I have fully participated in the care of the patient.: Yes I have reviewed all pertinent clinical information, including history, physical exam and plan: Yes Notes (Text): I have seen and examined the patient at bedside. Agree with the above note with the following additions/ exceptions: Briefly this is 51 year old female with history of DM-2, CHF (EF~30%), HTN, chronic leg edema, DVT/ PE on eliquis, hypothyroidism, schizophrenia was admitted with acute on chronic CHF exacerbation and bilateral LE edema. Patient denies any complaints at this time. Hypotension resolved. Midodrine was discontinued. Renal function has improved. Patient has decreased breath sounds bilaterally. Will restart lasix, aldactone and metoprolol. Continue to hold ARB. Her LE cellulitis is stable. She is not on any antibiotics at this time. Continue nystatin powder for fungal rash. Upon discharge patient will follow up with Dr Roman. Dr Annmarie Amador
[2017-02-01 07:51] LABS: ALKALINE PHOSPHATASE 260 U/L (38-126); ALT/SGPT 44 U/L (7-56); AST/SGOT 32 U/L (14-36); BILIRUBIN,TOTAL 0.9 mg/dL (0.2-1.3); BLOOD UREA NITROGEN 38 mg/dL (7-21); CALCIUM 8.9 mg/dL (8.4-10.5); CARBON DIOXIDE 24 mmol/L (21-33); CHLORIDE 94 mmol/L (95-110); GFR AFRICAN-AMERICAN > 60; GLUCOSE,RANDOM 105 mg/dL (70-110); POTASSIUM 3.7 mmol/L (3.6-5.0); SODIUM 130 mmol/L (132-148); TOTAL PROTEIN 7.5 g/dL (5.8-8.3)
[2017-02-01] MEDS: Insulin Reg-HIGH-Coverage SC SCH ×4 (08:24→21:25)
--- NOTE | 2017-02-01 08:59 | CP.PCM.PN ---
Subjective - Date & Time of Evaluation Date of Evaluation: 01/31/17 Time of Evaluation: 11:30 - Subjective Subjective: Patient still reporting cough; Objective - Vital Signs/Intake and Output Vital Signs (last 24 hours): Temp Pulse Resp BP Pulse Ox 97 F L 116 H 21 124/85 94 L 02/01/17 06:10 02/01/17 07:06 02/01/17 06:10 02/01/17 06:10 02/01/17 06:10 Intake and Output: 02/01/17 02/01/17 06:59 18:59 Intake Total 300 60 Output Total 600 600 Balance -300 -540 - Medications Medications: Current Medications Apixaban (Eliquis) 5 mg PO BID [facility] PRN Reason: Protocol Last Admin: 01/31/17 18:27 Dose: 5 mg Bumetanide (Bumex) 1 mg PO Q8H [facility] Last Admin: 01/27/17 05:30 Dose: 1 mg Clonazepam (Klonopin) 0.5 mg PO DAILY [facility] PRN Reason: Protocol Last Admin: 01/31/17 11:30 Dose: 0.5 mg Digoxin (Lanoxin) 0.125 mg PO 1400 [facility] Last Admin: 01/29/17 13:43 Dose: 0.125 mg Ferrous Sulfate (Feosol) 324 mg PO DAILY [facility] Last Admin: 01/31/17 11:35 Dose: Not Given Furosemide (Lasix) 20 mg IVP Q8 [facility] Last Admin: 01/30/17 07:03 Dose: Not Given Gabapentin (Neurontin) 100 mg PO BID [facility] PRN Reason: Protocol Last Admin: 01/31/17 18:29 Dose: 100 mg Guaifenesin (Robitussin) 100 mg PO Q4H PRN PRN Reason: Cough Last Admin: 02/01/17 02:32 Dose: 100 mg Insulin Detemir (Levemir) 25 unit SC HS [facility] Last Admin: 01/31/17 21:51 Dose: 25 unit Insulin Human Regular (Humulin R High) 0 units SC ACHS [facility] PRN Reason: Protocol Last Admin: 02/01/17 08:24 Dose: Not Given Levothyroxine Sodium (Synthroid) 125 mcg PO 0600 [facility] Last Admin: 02/01/17 05:25 Dose: 125 mcg Losartan Potassium (Cozaar) 12.5 mg PO DAILY [facility] Last Admin: 01/29/17 09:27 Dose: Not Given Nystatin (Nystop Topical Powder) 1 gm TOP BID [facility] Last Admin: 01/31/17 18:29 Dose: Not Given Nystatin/Triamcinolone Acetonide (Nystatin/Triamcinolone Cream) 1 ea TOP BID [facility] Last Admin: 01/31/17 19:50 Dose: 1 applic Ondansetron HCl (Zofran Inj) 4 mg IVP Q4H PRN PRN Reason: Nausea/Vomiting Last Admin: 01/27/17 07:35 Dose: 4 mg Pantoprazole Sodium (Protonix Ec Tab) 40 mg PO 0600 [facility] Last Admin: 02/01/17 05:25 Dose: 40 mg Quetiapine Fumarate (Seroquel) 50 mg PO AMHS [facility] PRN Reason: Protocol Last Admin: 01/31/17 21:52 Dose: 50 mg Spironolactone (Aldactone) 25 mg PO BID [facility] Last Admin: 01/31/17 11:29 Dose: Not Given Tramadol HCl (Ultram) 50 mg PO Q8H PRN PRN Reason: Pain, moderate (4-7) Last Admin: 01/31/17 21:52 Dose: 50 mg - Labs Labs: 02/01/17 06:40 02/01/17 06:40 PT 14.2 SECONDS (9.4-12.5) H 01/27/17 01:30 INR 1.30 (0.93-1.08) H 01/27/17 01:30 APTT 28.1 Seconds (25.1-36.5) 01/27/17 01:30 - Constitutional Appears: Non-toxic, No Acute Distress - Head Exam Head Exam: NORMAL INSPECTION - Eye Exam Eye Exam: Normal appearance. absent: Scleral icterus - ENT Exam ENT Exam: Mucous Membranes Moist - Respiratory Exam Additional comments: Decreased breath sounds b/l from bases to more than half way up lung parry; - Cardiovascular Exam Cardiovascular Exam: Tachycardia, Gallop Additional comments: S3 present; - GI/Abdominal Exam GI & Abdominal Exam: Soft. absent: Distended, Tenderness - Extremities Exam Additional comments: bilateral lower leg moderate edema; - Neurological Exam Neurological Exam: Alert, Awake - Psychiatric Exam Psychiatric exam: Agitated - Skin Skin Exam: Warm. absent: Cyanosis Assessment and Plan (1) Hypotension Assessment & Plan: Resolved; likely due to hypovolemia from over-diuresis, corrected with volume repletion; stopping further IVF as patient is appearing to go into heart failure ; Status: Acute (2) Acute kidney injury Assessment & Plan: Improving with IVF, pre-renal etiology; holding further IVF as above; Status: Acute (3) Hyponatremia Assessment & Plan: Improving with volume repletion; no need for tolvaptan at this time; Status: Acute (4) Metabolic alkalosis Status: Resolved (5) Pleural effusion Status: Chronic (6) CHF (congestive heart failure) Assessment & Plan: With severe systolic dysfunction and MR; diuretics, ARB and B-melissa held in setting of hypovolemic hypotension; has a very delicate balance to go back into heart failure; IVF stopped and will let patient equilibrate before restarting diuretics (which she needs to be on half-way); f/u with cardio to restart low dose B-melissa; Status: Chronic
--- NOTE | 2017-02-01 09:52 | RAD ---
HISTORY: r/o congestion COMPARISON: 01/27/2017 FINDINGS: LUNGS: Bilateral inferior hemithoracic homogeneous opacities in attributed to bilateral pleural effusions and probable compressive atelectatic changes. Underlying concomitant infiltrates here not excluded. PLEURA: Bilateral pleural effusions -similar -these are near the mid 1/2 of the expected thoracic height CARDIOVASCULAR: Cardiomegaly, bilateral pleural effusions and pulmonary venous congestion. Pulmonary venous congestion similar to perhaps slightly increased. OSSEOUS STRUCTURES: No significant abnormalities. VISUALIZED UPPER ABDOMEN: Normal. OTHER FINDINGS: None. IMPRESSION: Cardiomegaly bilateral pleural effusions and pulmonary venous congestion. Pulmonary venous congestion probably slightly increased. Other findings similar. Findings consistent with CHF Concomitant bibasilar compressive atelectasis associated with the pleural effusions is inferred. Underlying concomitant infiltrates not excluded.
[2017-02-01] MEDS: Nystatin-Triamcinolone Cream(30 gm) TOP SCH ×2 (11:18→17:46)
[2017-02-01] MEDS: Nystatin 100,000 Units/gm Topical Pow(15 gm) TOP SCH ×2 (11:19→17:46)
[2017-02-01] MEDS ORDERED: Albuterol-Ipratrop 3 mg / 0.5 (3 ml) UD IH STA (11:21)
--- NOTE | 2017-02-01 16:34 | CP.PCM.PN ---
Subjective - Date & Time of Evaluation Date of Evaluation: 02/01/17 Time of Evaluation: 15:00 - Subjective Subjective: Infectious Disease Follow Up: February 01, 2017 51 yo female presenting with worsening bilateral LE swelling and pain. The patient has an extensive medical history that includes DM, CHF, HTN, non-ischemic cardiomyopathy, chronic pleural effusion, DVT, PE, hypothyroidism, and schizophrenia. The [facility] a jail. The patient was set up for living arrangements on her last hospitalization one month ago. Unclear what happened as the patient is unwilling to talk about it. She remains mostly uncooperative with exam. She provides little information during interview sessions. Objective - Vital Signs/Intake and Output Vital Signs (last 24 hours): Temp Pulse Resp BP Pulse Ox 97.0 F L 90 18 124/85 98 02/01/17 09:11 02/01/17 09:11 02/01/17 09:11 02/01/17 14:08 02/01/17 09:11 Intake and Output: 02/01/17 02/01/17 06:59 18:59 Intake Total 300 1080 Output Total 600 600 Balance -300 480 - Medications Medications: Current Medications Apixaban (Eliquis) 5 mg PO BID [facility] PRN Reason: Protocol Last Admin: 02/01/17 11:17 Dose: Not Given Bumetanide (Bumex) 1 mg PO Q8H [facility] Last Admin: 01/27/17 05:30 Dose: 1 mg Clonazepam (Klonopin) 0.5 mg PO DAILY [facility] PRN Reason: Protocol Last Admin: 02/01/17 11:18 Dose: Not Given Digoxin (Lanoxin) 0.125 mg PO 1400 [facility] Last Admin: 01/29/17 13:43 Dose: 0.125 mg Ferrous Sulfate (Feosol) 324 mg PO DAILY [facility] Last Admin: 02/01/17 11:18 Dose: Not Given Furosemide (Lasix) 20 mg IVP Q8 [facility] Last Admin: 02/01/17 14:08 Dose: 20 mg Gabapentin (Neurontin) 100 mg PO BID [facility] PRN Reason: Protocol Last Admin: 02/01/17 11:18 Dose: Not Given Guaifenesin (Robitussin) 100 mg PO Q4H PRN PRN Reason: Cough Last Admin: 02/01/17 02:32 Dose: 100 mg Insulin Detemir (Levemir) 25 unit SC HS [facility] Last Admin: 01/31/17 21:51 Dose: 25 unit Insulin Human Regular (Humulin R High) 0 units SC ACHS [facility] PRN Reason: Protocol Last Admin: 02/01/17 12:21 Dose: 2 units Levothyroxine Sodium (Synthroid) 125 mcg PO 0600 [facility] Last Admin: 02/01/17 05:25 Dose: 125 mcg Losartan Potassium (Cozaar) 12.5 mg PO DAILY [facility] Last Admin: 01/29/17 09:27 Dose: Not Given Metoprolol Tartrate (Lopressor) 12.5 mg PO BID [facility] Last Admin: 02/01/17 11:18 Dose: Not Given Nystatin (Nystop Topical Powder) 1 gm TOP BID [facility] Last Admin: 02/01/17 11:19 Dose: Not Given Nystatin/Triamcinolone Acetonide (Nystatin/Triamcinolone Cream) 1 ea TOP BID [facility] Last Admin: 02/01/17 11:18 Dose: Not Given Ondansetron HCl (Zofran Inj) 4 mg IVP Q4H PRN PRN Reason: Nausea/Vomiting Last Admin: 02/01/17 10:13 Dose: 4 mg Pantoprazole Sodium (Protonix Ec Tab) 40 mg PO 0600 [facility] Last Admin: 02/01/17 05:25 Dose: 40 mg Quetiapine Fumarate (Seroquel) 50 mg PO COUNT [facility]CLUDES [facility] PRN Reason: Protocol Last Admin: 02/01/17 11:19 Dose: Not Given Spironolactone (Aldactone) 25 mg PO BID [facility] Last Admin: 01/31/17 11:29 Dose: Not Given Tramadol HCl (Ultram) 50 mg PO Q8H PRN PRN Reason: Pain, moderate (4-7) Last Admin: 01/31/17 21:52 Dose: 50 mg - Labs Labs: 02/01/17 06:40 02/01/17 06:40 PT 14.2 SECONDS (9.4-12.5) H 01/27/17 01:30 INR 1.30 (0.93-1.08) H 01/27/17 01:30 APTT 28.1 Seconds (25.1-36.5) 01/27/17 01:30 - Constitutional Appears: Non-toxic, No Acute Distress, Chronically Ill - Head Exam Head Exam: ATRAUMATIC, NORMOCEPHALIC - Eye Exam Eye Exam: EOMI, PERRL Pupil Exam: NORMAL ACCOMODATION, PERRL - ENT Exam ENT Exam: Mucous Membranes Moist, Normal External Ear Exam, TM's Normal Bilaterally - Neck Exam Neck Exam: Full ROM, Normal Inspection - Respiratory Exam Respiratory Exam: Decreased Breath Sounds, NORMAL BREATHING PATTERN. absent: Rales, Rhonchi, Wheezes - Cardiovascular Exam Cardiovascular Exam: REGULAR RHYTHM, RRR, +S1, +S2 - GI/Abdominal Exam GI & Abdominal Exam: Distended, Soft, Normal Bowel Sounds. absent: Tenderness - Extremities Exam Extremities Exam: Joint Swelling, Pedal Edema Additional comments: erythematous b/l le, +3-4 pitting edema, chronic venous stasis - Neurological Exam Neurological Exam: Alert, Awake, CN II-XII Intact, Oriented x3 - Psychiatric Exam Psychiatric exam: Agitated, Depressed - Skin Skin Exam: Dry, Intact Assessment and Plan - Assessment and Plan (Free Text) Assessment: 51 yo female who is non-compliant with her meds presenting with bilateral lower leg swelling and pain. Uncontrolled CHF. At worse, mild cellulitis. Would hold off on antibiotic therapy and treat CHF at this time. Supportive care. There is a rash under the breasts which is fungal in nature. I would continue with nystatin cream for these areas. Patient is generally uncooperative with exam and interview process. Cultures negative to date. The patient is receiving Dobutamine for hypotension. Thank you for allowing me to participate in the care of the patient, we will follow with you.
--- NOTE | 2017-02-01 16:51 | PN ---
DATE: 02/01/2017 SUBJECTIVE: The patient is without shortness of breath. She is sitting in a chair and talking without issues. PHYSICAL EXAMINATION: VITAL SIGNS: Blood pressure is 158/82, heart rate in 90s. NECK: Negative JVD. LUNGS: Without rales. HEART: S1, S2. EXTREMITIES: Without edema. LABORATORY DATA: Hemoglobin is 13. Chemistries: BUN and creatinine is 38 and 1.0, glucose is 105. IMPRESSION: 1. Resolution of congestive heart failure. 2. Mild prerenal azotemia. 3. Diabetes mellitus. 4. Hypertension. PLAN: Given these findings, the patient's symptoms have improved. Her cardiomyopathy which is the cause of her CHF has improved. We will continue gentle diuresis. Kal Russell MD
--- NOTE | 2017-02-01 19:42 | CP.PCM.PN ---
Subjective - Date & Time of Evaluation Date of Evaluation: 02/01/17 Time of Evaluation: 11:00 - Subjective Subjective: Patient still reporting cough; refusing some PO meds; Objective - Vital Signs/Intake and Output Vital Signs (last 24 hours): Temp Pulse Resp BP Pulse Ox 97.8 F 127 H 22 115/82 94 L 02/01/17 16:00 02/01/17 16:00 02/01/17 16:00 02/01/17 16:00 02/01/17 16:00 Intake and Output: 02/01/17 02/02/17 18:59 06:59 Intake Total 1080 Output Total 600 Balance 480 - Medications Medications: Current Medications Apixaban (Eliquis) 5 mg PO BID [facility] PRN Reason: Protocol Last Admin: 02/01/17 19:11 Dose: Not Given Bumetanide (Bumex) 1 mg PO Q8H [facility] Last Admin: 01/27/17 05:30 Dose: 1 mg Clonazepam (Klonopin) 0.5 mg PO DAILY [facility] PRN Reason: Protocol Last Admin: 02/01/17 11:18 Dose: Not Given Digoxin (Lanoxin) 0.125 mg PO 1400 [facility] Last Admin: 01/29/17 13:43 Dose: 0.125 mg Ferrous Sulfate (Feosol) 324 mg PO DAILY [facility] Last Admin: 02/01/17 11:18 Dose: Not Given Furosemide (Lasix) 20 mg IVP Q8 [facility] Last Admin: 02/01/17 14:08 Dose: 20 mg Gabapentin (Neurontin) 100 mg PO BID [facility] PRN Reason: Protocol Last Admin: 02/01/17 19:11 Dose: Not Given Guaifenesin (Robitussin) 100 mg PO Q4H PRN PRN Reason: Cough Last Admin: 02/01/17 02:32 Dose: 100 mg Insulin Detemir (Levemir) 25 unit SC HS [facility] Last Admin: 01/31/17 21:51 Dose: 25 unit Insulin Human Regular (Humulin R High) 0 units SC ACHS [facility] PRN Reason: Protocol Last Admin: 02/01/17 17:43 Dose: 7 units Levothyroxine Sodium (Synthroid) 125 mcg PO 0600 [facility] Last Admin: 02/01/17 05:25 Dose: 125 mcg Losartan Potassium (Cozaar) 12.5 mg PO DAILY [facility] Last Admin: 01/29/17 09:27 Dose: Not Given Metoprolol Tartrate (Lopressor) 12.5 mg PO BID [facility] Last Admin: 02/01/17 19:11 Dose: Not Given Nystatin (Nystop Topical Powder) 1 gm TOP BID [facility] Last Admin: 02/01/17 17:46 Dose: 1 applic Nystatin/Triamcinolone Acetonide (Nystatin/Triamcinolone Cream) 1 ea TOP BID [facility] Last Admin: 02/01/17 17:46 Dose: 1 applic Ondansetron HCl (Zofran Inj) 4 mg IVP Q4H PRN PRN Reason: Nausea/Vomiting Last Admin: 02/01/17 10:13 Dose: 4 mg Pantoprazole Sodium (Protonix Ec Tab) 40 mg PO 0600 [facility] Last Admin: 02/01/17 05:25 Dose: 40 mg Quetiapine Fumarate (Seroquel) 50 mg PO AMHS [facility] PRN Reason: Protocol Last Admin: 02/01/17 11:19 Dose: Not Given Spironolactone (Aldactone) 25 mg PO BID [facility] Last Admin: 02/01/17 19:11 Dose: Not Given Tramadol HCl (Ultram) 50 mg PO Q8H PRN PRN Reason: Pain, moderate (4-7) Last Admin: 01/31/17 21:52 Dose: 50 mg - Labs Labs: 02/01/17 06:40 02/01/17 06:40 PT 14.2 SECONDS (9.4-12.5) H 01/27/17 01:30 INR 1.30 (0.93-1.08) H 01/27/17 01:30 APTT 28.1 Seconds (25.1-36.5) 01/27/17 01:30 - Constitutional Appears: Non-toxic, No Acute Distress - Head Exam Head Exam: NORMAL INSPECTION - Eye Exam Eye Exam: Normal appearance - ENT Exam ENT Exam: Mucous Membranes Moist - Respiratory Exam Additional comments: Decreased breath sounds b/l to more than half way up lung parry; - Cardiovascular Exam Cardiovascular Exam: Tachycardia, Gallop Additional comments: S3 present; - GI/Abdominal Exam GI & Abdominal Exam: Soft. absent: Distended, Tenderness - Extremities Exam Additional comments: moderately edematous legs, somewhat worsened; - Neurological Exam Neurological Exam: Alert, Awake - Skin Skin Exam: Warm. absent: Cyanosis Assessment and Plan (1) CHF (congestive heart failure) Assessment & Plan: With severe systolic dysfunction; now with signs of being in failure again; re- starting diuresis with lasix 20 mg IV q8h and restarting metoprolol 12.5 mg bid along with aldactone 25 mg bid; holding ARB for now; Status: Acute (2) Hypotension Assessment & Plan: Due to hypovolemia in the setting of over-diuresis; very difficult balance to achieve in patient with severe CHF; Status: Resolved (3) Acute kidney injury Assessment & Plan: Resolving; pre-renal etiology from volume depletion; now needs to be adequately diuresed and placed back on meds for cardiac optimization as she has a propensity to develop cardiorenal OLLIE; Status: Acute (4) Hyponatremia Assessment & Plan: Resolving with volume repletion; now being started on diuretics; monitor; Status: Acute (5) Metabolic alkalosis Assessment & Plan: Had resolved but need to monitor carefully; aldactone restarted; Status: Resolved (6) Pleural effusion Assessment & Plan: Chronic and progressive; may benefit from thoracentesis as diuresis alone will not easily decrease ascites; Status: Chronic
[2017-02-01] MEDS: Insulin Detemir 100 units/ml Vial (Levemir) SC SCH (21:22)
[2017-02-02] MEDS: Albuterol-Ipratrop 3 mg / 0.5 (3 ml) UD IH SCH ×4 (02:16→19:21)
[2017-02-02] MEDS ORDERED: Promethazine/Cod 6.25mg-10mg/5ml Syr UD PO STA (02:50)
[2017-02-02] MEDS: Levothyroxine 125 MCG TAB PO SCH (05:41)
[2017-02-02] MEDS: Pantoprazole 40 mg EC Tab PO SCH (05:41)
[2017-02-02 07:43] LABS: HEMATOCRIT 41.8 % (36.0-48.0); MEAN CELL VOLUME 84.4 fl (80.0-105.0); MEAN CORPUSCULAR HEMOGLOBIN 28.3 pg (25.0-35.0); MEAN CORPUSCULAR HGB CONC 33.5 g/dl (31.0-37.0); MEAN PLATELET VOLUME 10.8 fl (7.0-11.0); RED CELL DISTRIBUTION WIDTH 17.3 % (11.5-14.5); WHITE BLOOD COUNT 7.9 10^3/ul (4.5-11.0)
--- NOTE | 2017-02-02 07:50 | CP.PCM.PN ---
<Eduardo Flynn - Last Filed: 02/02/17 14:00> Subjective - Date & Time of Evaluation Date of Evaluation: 02/02/17 Time of Evaluation: 07:10 - Subjective Subjective: patient was seen and examined bedside. Patient states that her LE swelling has gotten worse and that the cough has not improved, but also states that she has not taken the breathing treatment yesterday. denies cp, sob, fevers/chills, n/v/ d, constipation, headache, neck/back pain, dysuria or urinary/bowel complaints. Objective - Vital Signs/Intake and Output Vital Signs (last 24 hours): Temp Pulse Resp BP Pulse Ox 97.8 F 127 H 22 137/91 H 94 L 02/01/17 16:00 02/01/17 16:00 02/01/17 16:00 02/02/17 05:41 02/01/17 16:00 Intake and Output: 02/02/17 02/02/17 06:59 18:59 Intake Total 360 120 Balance 360 120 - Medications Medications: Current Medications Albuterol/Ipratropium (Duoneb 3 Mg/0.5 Mg (3 Ml) Ud) 3 ml IH [id number] [facility] Last Admin: 02/02/17 02:16 Dose: Not Given Apixaban (Eliquis) 5 mg PO BID [facility] PRN Reason: Protocol Last Admin: 02/01/17 19:11 Dose: Not Given Bumetanide (Bumex) 1 mg PO Q8H [facility] Last Admin: 01/27/17 05:30 Dose: 1 mg Clonazepam (Klonopin) 0.5 mg PO DAILY [facility] PRN Reason: Protocol Last Admin: 02/01/17 11:18 Dose: Not Given Digoxin (Lanoxin) 0.125 mg PO 1400 [facility] Last Admin: 01/29/17 13:43 Dose: 0.125 mg Ferrous Sulfate (Feosol) 324 mg PO DAILY [facility] Last Admin: 02/01/17 11:18 Dose: Not Given Furosemide (Lasix) 20 mg IVP Q8 [facility] Last Admin: 02/02/17 05:41 Dose: 20 mg Gabapentin (Neurontin) 100 mg PO BID [facility] PRN Reason: Protocol Last Admin: 02/01/17 19:11 Dose: Not Given Guaifenesin (Robitussin) 100 mg PO Q4H PRN PRN Reason: Cough Last Admin: 02/01/17 21:21 Dose: 100 mg Insulin Detemir (Levemir) 25 unit SC HS [facility] Last Admin: 02/01/17 21:22 Dose: 25 unit Insulin Human Regular (Humulin R High) 0 units SC ACHS [facility] PRN Reason: Protocol Last Admin: 02/01/17 21:25 Dose: Not Given Levothyroxine Sodium (Synthroid) 125 mcg PO 0600 [facility] Last Admin: 02/02/17 05:41 Dose: 125 mcg Losartan Potassium (Cozaar) 12.5 mg PO DAILY [facility] Last Admin: 01/29/17 09:27 Dose: Not Given Metoprolol Tartrate (Lopressor) 12.5 mg PO BID [facility] Last Admin: 02/01/17 19:11 Dose: Not Given Nystatin (Nystop Topical Powder) 1 gm TOP BID [facility] Last Admin: 02/01/17 17:46 Dose: 1 applic Nystatin/Triamcinolone Acetonide (Nystatin/Triamcinolone Cream) 1 ea TOP BID [facility] Last Admin: 02/01/17 17:46 Dose: 1 applic Ondansetron HCl (Zofran Inj) 4 mg IVP Q4H PRN PRN Reason: Nausea/Vomiting Last Admin: 02/01/17 10:13 Dose: 4 mg Pantoprazole Sodium (Protonix Ec Tab) 40 mg PO 0600 [facility] Last Admin: 02/02/17 05:41 Dose: 40 mg Quetiapine Fumarate (Seroquel) 50 mg PO [facility] PRN Reason: Protocol Last Admin: 02/01/17 23:36 Dose: 50 mg Spironolactone (Aldactone) 25 mg PO BID [facility] Last Admin: 02/01/17 19:11 Dose: Not Given Tramadol HCl (Ultram) 50 mg PO Q8H PRN PRN Reason: Pain, moderate (4-7) Last Admin: 01/31/17 21:52 Dose: 50 mg - Labs Labs: 02/02/17 07:00 02/01/17 06:40 PT 14.2 SECONDS (9.4-12.5) H 01/27/17 01:30 INR 1.30 (0.93-1.08) H 01/27/17 01:30 APTT 28.1 Seconds (25.1-36.5) 01/27/17 01:30 - Additional Findings Additional findings: - Constitutional Appears: Well, Non-toxic, No Acute Distress - Head Exam Head Exam: ATRAUMATIC, NORMAL INSPECTION, NORMOCEPHALIC - Eye Exam Eye Exam: EOMI, Normal appearance, PERRL Pupil Exam: NORMAL ACCOMODATION - ENT Exam ENT Exam: Mucous Membranes Moist, Normal Exam - Neck Exam Neck Exam: Full ROM - Respiratory Exam Respiratory Exam: Decreased Breath Sounds, Clear to Ausculation Bilateral, NORMAL BREATHING PATTERN. absent: Accessory Muscle Use, Rales, Rhonchi, Wheezes , Respiratory Distress - Cardiovascular Exam Cardiovascular Exam: Tachycardia, REGULAR RHYTHM. absent: Murmur - GI/Abdominal Exam GI & Abdominal Exam: Soft, Normal Bowel Sounds. absent: Distended, Tenderness - Extremities Exam Extremities Exam: absent: Calf Tenderness Additional comments: 2+ pedal edema b/l erythematous and peeling skin - Back Exam Back Exam: NORMAL INSPECTION - Neurological Exam Neurological Exam: Alert, Awake, Oriented x3 - Psychiatric Exam Psychiatric exam: Normal Affect, Normal Mood - Skin Skin Exam: Erythema (b/l LE diffuse), Normal Color, Warm Additional comments: skin peeling Assessment and Plan - Assessment and Plan (Free Text) Assessment: 51yo F with a PMHx of DM2, CHF, HTN, non-ischemic cardiomyopathy, chronic pleural effusion, DVT, PE, hypothyroidism, and schizophrenia presented to the [facility] by EMS with complaints of b/l LE swelling and pain. Last ECHO was 30%. Plan: 1. Acute on chronic CHF exacerbation (systolic dysfunction) - cont Lasix 20mg Q8 IVP and Aldactone - still holding Bumex, Digoxin, and Losartan per Renal recs - LE dopplers negative for DVT - Leg elevation, OOB - Daily weights, strict I/Os - Cardiology on consult, f/u recommendations 2. Tacycardia likely due to Hx Afib - metoprolol - currently NSR - continue Eliquis 5 mg BID 3. OLLIE/Hyponatremia, resolved - Nephro on consult, f/u recommendations 4. cough - Robitussin - duonebs x1 5. B/L LE Cellulitis vs Hx of chronic venous stasis - lac hydrin ordered - hold off on starting abx at this time per ID recs - no leukocytosis, afebrile - Pain control PRN 6. B/L breast rash - Likely candidiasis - continue nystatin cream, nystatin powder - ID consulted, f/u recommendations 7. Diabetes Mellitus Type 2 (uncontrolled) - Continue Levemir 25u QHS - High dose Humalog ISS - Accuchecks ACHS - Continue gabapentin 8. Hypothyroidism - Continue synthroid PTX/ Eliquis Diet: Consistent Carbs Patient was seen, examined and discussed with attending, Dr. Perry Flynn PGY1 <Annmarie Amador B - Last Filed: 02/02/17 14:55> Objective - Vital Signs/Intake and Output Vital Signs (last 24 hours): Temp Pulse Resp BP Pulse Ox 97.6 F 124 H 20 88/53 L 93 L 02/02/17 09:29 02/02/17 09:29 02/02/17 10:00 02/02/17 13:32 02/02/17 09:29 Intake and Output: 02/02/17 02/02/17 06:59 18:59 Intake Total 360 120 Balance 360 120 - Medications Medications: Current Medications Albuterol/Ipratropium (Duoneb 3 Mg/0.5 Mg (3 Ml) Ud) 3 ml IH [id number] [facility] Last Admin: 02/02/17 14:10 Dose: Not Given Apixaban (Eliquis) 5 mg PO BID [facility] PRN Reason: Protocol Last Admin: 02/02/17 11:15 Dose: 5 mg Bumetanide (Bumex) 1 mg PO Q8H [facility] Last Admin: 01/27/17 05:30 Dose: 1 mg Clonazepam (Klonopin) 0.5 mg PO DAILY [facility] PRN Reason: Protocol Last Admin: 02/02/17 11:16 Dose: 0.5 mg Digoxin (Lanoxin) 0.125 mg PO 1400 [facility] Last Admin: 01/29/17 13:43 Dose: 0.125 mg Ferrous Sulfate (Feosol) 324 mg PO DAILY [facility] Last Admin: 02/02/17 11:16 Dose: 324 mg Furosemide (Lasix) 20 mg IVP Q8 [facility] Last Admin: 02/02/17 13:32 Dose: Not Given Gabapentin (Neurontin) 100 mg PO BID [facility] PRN Reason: Protocol Last Admin: 02/02/17 11:18 Dose: 100 mg Guaifenesin (Robitussin) 100 mg PO Q4H PRN PRN Reason: Cough Last Admin: 02/01/17 21:21 Dose: 100 mg Insulin Detemir (Levemir) 25 unit SC HS [facility] Last Admin: 02/01/17 21:22 Dose: 25 unit Insulin Human Regular (Humulin R High) 0 units SC ACHS [facility] PRN Reason: Protocol Last Admin: 02/02/17 13:24 Dose: 4 units Lactic Acid (Lac-Hydrin 12% Cream (140 G)) 0 ea TOP BID [facility] Last Admin: 02/02/17 13:25 Dose: 1 applic Levothyroxine Sodium (Synthroid) 125 mcg PO 0600 [facility] Last Admin: 02/02/17 05:41 Dose: 125 mcg Losartan Potassium (Cozaar) 12.5 mg PO DAILY [facility] Last Admin: 01/29/17 09:27 Dose: Not Given Metoprolol Tartrate (Lopressor) 12.5 mg PO BID [facility] Last Admin: 02/02/17 11:17 Dose: 12.5 mg Nystatin (Nystop Topical Powder) 1 gm TOP BID [facility] Last Admin: 02/02/17 11:18 Dose: 1 applic Nystatin/Triamcinolone Acetonide (Nystatin/Triamcinolone Cream) 1 ea TOP BID [facility] Last Admin: 02/02/17 11:19 Dose: 1 applic Ondansetron HCl (Zofran Inj) 4 mg IVP Q4H PRN PRN Reason: Nausea/Vomiting Last Admin: 02/01/17 10:13 Dose: 4 mg Pantoprazole Sodium (Protonix Ec Tab) 40 mg PO 0600 [facility] Last Admin: 02/02/17 05:41 Dose: 40 mg Quetiapine Fumarate (Seroquel) 50 mg PO [facility] PRN Reason: Protocol Last Admin: 02/02/17 11:19 Dose: 50 mg Spironolactone (Aldactone) 25 mg PO DAILY [facility] Tramadol HCl (Ultram) 50 mg PO Q8H PRN PRN Reason: Pain, moderate (4-7) Last Admin: 01/31/17 21:52 Dose: 50 mg - Labs Labs: 02/02/17 07:00 02/02/17 09:20 PT 14.2 SECONDS (9.4-12.5) H 01/27/17 01:30 INR 1.30 (0.93-1.08) H 01/27/17 01:30 APTT 28.1 Seconds (25.1-36.5) 01/27/17 01:30 Attending/Attestation - Attestation I have personally seen and examined this patient.: Yes I have fully participated in the care of the patient.: Yes I have reviewed all pertinent clinical information, including history, physical exam and plan: Yes Notes (Text): I have seen and examined the patient at bedside. Agree with the above note with the following additions/ exceptions: Briefly this is 51 year old female with history of DM-2, CHF (EF~30%), HTN, chronic leg edema, DVT/ PE on eliquis, hypothyroidism, schizophrenia was admitted with acute on chronic CHF exacerbation and bilateral LE edema. Patient denies any complaints at this time. Hypotension resolved. Midodrine was discontinued. Renal function has improved. Patient has decreased breath sounds bilaterally.Continue lasix, aldactone and metoprolol. Continue to hold ARB. Her LE cellulitis is stable. She is not on any antibiotics at this time. Continue nystatin powder for fungal rash. PT walked the patient and she was able to walk across the hallway with the help of walker. Patient needs to stay in the hospital for adjustment of her medications. Upon discharge patient will follow up with Dr Roman. Dr Annmarie Amador
[2017-02-02 09:36] LABS: ALB/GLOB RATIO 1.1 (1.1-1.8); ALKALINE PHOSPHATASE 259 U/L (38-126); ALT/SGPT 36 U/L (7-56); AST/SGOT 28 U/L (14-36); BILIRUBIN,TOTAL 0.8 mg/dL (0.2-1.3); BLOOD UREA NITROGEN 35 mg/dL (7-21); CALCIUM 8.9 mg/dL (8.4-10.5); CARBON DIOXIDE 28 mmol/L (21-33); CHLORIDE 91 mmol/L (98-107); GFR AFRICAN-AMERICAN > 60; GLUCOSE,RANDOM 153 mg/dL (70-110); POTASSIUM 4.1 mmol/L (3.6-5.0); SODIUM 130 mmol/L (132-148); TOTAL PROTEIN 7.5 g/dL (5.8-8.3)
[2017-02-02] MEDS: Insulin Reg-HIGH-Coverage SC SCH ×4 (11:16→21:30)
[2017-02-02] MEDS: Nystatin 100,000 Units/gm Topical Pow(15 gm) TOP SCH ×2 (11:18→18:17)
[2017-02-02] MEDS: Nystatin-Triamcinolone Cream(30 gm) TOP SCH ×2 (11:19→18:18)
[2017-02-02] MEDS: guaiFENesin 100 mg/5 ml Syrup UD PO PRN (11:20)
[2017-02-02] MEDS: Ammonium Lactate 12% Cream (140 g) TOP SCH ×2 (13:25→18:10)
[2017-02-02] MEDS ORDERED: Promethazine 6.25 MG/5 ML CUP PO ONE (14:07)
--- NOTE | 2017-02-02 14:51 | CP.PCM.PN ---
Subjective - Date & Time of Evaluation Date of Evaluation: 02/02/17 Time of Evaluation: 14:00 - Subjective Subjective: Infectious Disease Follow Up: February 02, 2017 51 yo female presenting with worsening bilateral LE swelling and pain. The patient has an extensive medical history that includes DM, CHF, HTN, non-ischemic cardiomyopathy, chronic pleural effusion, DVT, PE, hypothyroidism, and schizophrenia. The patient is currently living in a senior living. The patient was set up for living arrangements on her last hospitalization one month ago. Unclear what happened as the patient is unwilling to talk about it. She remains mostly uncooperative with exam. She provides little information during interview sessions. She can be uncompliant with her medications even in the hospital. Objective - Vital Signs/Intake and Output Vital Signs (last 24 hours): Temp Pulse Resp BP Pulse Ox 97.6 F 124 H 20 88/53 L 93 L 02/02/17 09:29 02/02/17 09:29 02/02/17 10:00 02/02/17 13:32 02/02/17 09:29 Intake and Output: 02/02/17 02/02/17 06:59 18:59 Intake Total 360 120 Balance 360 120 - Medications Medications: Current Medications Albuterol/Ipratropium (Duoneb 3 Mg/0.5 Mg (3 Ml) Ud) 3 ml IH [id number] [facility] Last Admin: 02/02/17 14:10 Dose: Not Given Apixaban (Eliquis) 5 mg PO BID [facility] PRN Reason: Protocol Last Admin: 02/02/17 11:15 Dose: 5 mg Bumetanide (Bumex) 1 mg PO Q8H [facility] Last Admin: 01/27/17 05:30 Dose: 1 mg Clonazepam (Klonopin) 0.5 mg PO DAILY [facility] PRN Reason: Protocol Last Admin: 02/02/17 11:16 Dose: 0.5 mg Digoxin (Lanoxin) 0.125 mg PO 1400 [facility] Last Admin: 01/29/17 13:43 Dose: 0.125 mg Ferrous Sulfate (Feosol) 324 mg PO DAILY [facility] Last Admin: 02/02/17 11:16 Dose: 324 mg Furosemide (Lasix) 20 mg IVP Q8 [facility] Last Admin: 02/02/17 13:32 Dose: Not Given Gabapentin (Neurontin) 100 mg PO BID [facility] PRN Reason: Protocol Last Admin: 02/02/17 11:18 Dose: 100 mg Guaifenesin (Robitussin) 100 mg PO Q4H PRN PRN Reason: Cough Last Admin: 02/01/17 21:21 Dose: 100 mg Insulin Detemir (Levemir) 25 unit SC HS [facility] Last Admin: 02/01/17 21:22 Dose: 25 unit Insulin Human Regular (Humulin R High) 0 units SC ACHS [facility] PRN Reason: Protocol Last Admin: 02/02/17 13:24 Dose: 4 units Lactic Acid (Lac-Hydrin 12% Cream (140 G)) 0 ea TOP BID [facility] Last Admin: 02/02/17 13:25 Dose: 1 applic Levothyroxine Sodium (Synthroid) 125 mcg PO 0600 [facility] Last Admin: 02/02/17 05:41 Dose: 125 mcg Losartan Potassium (Cozaar) 12.5 mg PO DAILY [facility] Last Admin: 01/29/17 09:27 Dose: Not Given Metoprolol Tartrate (Lopressor) 12.5 mg PO BID [facility] Last Admin: 02/02/17 11:17 Dose: 12.5 mg Nystatin (Nystop Topical Powder) 1 gm TOP BID [facility] Last Admin: 02/02/17 11:18 Dose: 1 applic Nystatin/Triamcinolone Acetonide (Nystatin/Triamcinolone Cream) 1 ea TOP BID [facility] Last Admin: 02/02/17 11:19 Dose: 1 applic Ondansetron HCl (Zofran Inj) 4 mg IVP Q4H PRN PRN Reason: Nausea/Vomiting Last Admin: 02/01/17 10:13 Dose: 4 mg Pantoprazole Sodium (Protonix Ec Tab) 40 mg PO 0600 [facility] Last Admin: 02/02/17 05:41 Dose: 40 mg Quetiapine Fumarate (Seroquel) 50 mg PO AMHS [facility] PRN Reason: Protocol Last Admin: 02/02/17 11:19 Dose: 50 mg Spironolactone (Aldactone) 25 mg PO DAILY [facility] Tramadol HCl (Ultram) 50 mg PO Q8H PRN PRN Reason: Pain, moderate (4-7) Last Admin: 01/31/17 21:52 Dose: 50 mg - Labs Labs: 02/02/17 07:00 02/02/17 09:20 PT 14.2 SECONDS (9.4-12.5) H 01/27/17 01:30 INR 1.30 (0.93-1.08) H 01/27/17 01:30 APTT 28.1 Seconds (25.1-36.5) 01/27/17 01:30 - Constitutional Appears: Non-toxic, No Acute Distress, Chronically Ill - Head Exam Head Exam: ATRAUMATIC, NORMOCEPHALIC - Eye Exam Eye Exam: EOMI, PERRL Pupil Exam: NORMAL ACCOMODATION, PERRL - ENT Exam ENT Exam: Mucous Membranes Moist, Normal External Ear Exam, TM's Normal Bilaterally - Respiratory Exam Respiratory Exam: Decreased Breath Sounds, NORMAL BREATHING PATTERN. absent: Rales, Rhonchi, Wheezes - Cardiovascular Exam Cardiovascular Exam: REGULAR RHYTHM, RRR, +S1, +S2 - GI/Abdominal Exam GI & Abdominal Exam: Soft, Normal Bowel Sounds. absent: Distended, Tenderness - Extremities Exam Extremities Exam: Joint Swelling, Pedal Edema Additional comments: erythematous b/l le, +3-4 pitting edema, chronic venous stasis - Neurological Exam Neurological Exam: Alert, CN II-XII Intact, Oriented x3 - Psychiatric Exam Psychiatric exam: Normal Affect, Normal Mood - Skin Skin Exam: Dry Assessment and Plan - Assessment and Plan (Free Text) Assessment: 51 yo female who is non-compliant with her meds presenting with bilateral lower leg swelling and pain. Uncontrolled CHF. At worse, mild cellulitis. Would hold off on antibiotic therapy and treat CHF at this time. Supportive care. There is a rash under the breasts which is fungal in nature. I would continue with nystatin cream for these areas. Patient is generally uncooperative with exam and interview process. Cultures negative to date. The patient is receiving Dobutamine for hypotension. Thank you for allowing me to participate in the care of the patient, we will follow with you.
--- NOTE | 2017-02-02 16:25 | CP.PCM.PN ---
Objective - Vital Signs/Intake and Output Vital Signs (last 24 hours): Temp Pulse Resp BP Pulse Ox 97.6 F 124 H 20 88/53 L 93 L 02/02/17 09:29 02/02/17 09:29 02/02/17 10:00 02/02/17 13:32 02/02/17 09:29 Intake and Output: 02/02/17 02/02/17 06:59 18:59 Intake Total 360 1020 Balance 360 1020 - Medications Medications: Current Medications Albuterol/Ipratropium (Duoneb 3 Mg/0.5 Mg (3 Ml) Ud) 3 ml IH [id number] [facility] Last Admin: 02/02/17 14:10 Dose: Not Given Apixaban (Eliquis) 5 mg PO BID [facility] PRN Reason: Protocol Last Admin: 02/02/17 11:15 Dose: 5 mg Bumetanide (Bumex) 1 mg PO Q8H [facility] Last Admin: 01/27/17 05:30 Dose: 1 mg Clonazepam (Klonopin) 0.5 mg PO DAILY [facility] PRN Reason: Protocol Last Admin: 02/02/17 11:16 Dose: 0.5 mg Digoxin (Lanoxin) 0.125 mg PO 1400 [facility] Last Admin: 01/29/17 13:43 Dose: 0.125 mg Ferrous Sulfate (Feosol) 324 mg PO DAILY [facility] Last Admin: 02/02/17 11:16 Dose: 324 mg Furosemide (Lasix) 20 mg IVP Q8 [facility] Last Admin: 02/02/17 13:32 Dose: Not Given Gabapentin (Neurontin) 100 mg PO BID [facility] PRN Reason: Protocol Last Admin: 02/02/17 11:18 Dose: 100 mg Guaifenesin (Robitussin) 100 mg PO Q4H PRN PRN Reason: Cough Last Admin: 02/01/17 21:21 Dose: 100 mg Insulin Detemir (Levemir) 25 unit SC HS [facility] Last Admin: 02/01/17 21:22 Dose: 25 unit Insulin Human Regular (Humulin R High) 0 units SC ACHS [facility] PRN Reason: Protocol Last Admin: 02/02/17 13:24 Dose: 4 units Lactic Acid (Lac-Hydrin 12% Cream (140 G)) 0 ea TOP BID [facility] Last Admin: 02/02/17 13:25 Dose: 1 applic Levothyroxine Sodium (Synthroid) 125 mcg PO 0600 [facility] Last Admin: 02/02/17 05:41 Dose: 125 mcg Losartan Potassium (Cozaar) 12.5 mg PO DAILY [facility] Last Admin: 01/29/17 09:27 Dose: Not Given Metoprolol Tartrate (Lopressor) 12.5 mg PO BID [facility] Last Admin: 02/02/17 11:17 Dose: 12.5 mg Nystatin (Nystop Topical Powder) 1 gm TOP BID [facility] Last Admin: 02/02/17 11:18 Dose: 1 applic Nystatin/Triamcinolone Acetonide (Nystatin/Triamcinolone Cream) 1 ea TOP BID [facility] Last Admin: 02/02/17 11:19 Dose: 1 applic Ondansetron HCl (Zofran Inj) 4 mg IVP Q4H PRN PRN Reason: Nausea/Vomiting Last Admin: 02/01/17 10:13 Dose: 4 mg Pantoprazole Sodium (Protonix Ec Tab) 40 mg PO 0600 [facility] Last Admin: 02/02/17 05:41 Dose: 40 mg Quetiapine Fumarate (Seroquel) 50 mg PO [facility] PRN Reason: Protocol Last Admin: 02/02/17 11:19 Dose: 50 mg Spironolactone (Aldactone) 25 mg PO DAILY [facility] Tramadol HCl (Ultram) 50 mg PO Q8H PRN PRN Reason: Pain, moderate (4-7) Last Admin: 01/31/17 21:52 Dose: 50 mg - Labs Labs: 02/02/17 07:00 02/02/17 09:20 PT 14.2 SECONDS (9.4-12.5) H 01/27/17 01:30 INR 1.30 (0.93-1.08) H 01/27/17 01:30 APTT 28.1 Seconds (25.1-36.5) 01/27/17 01:30 Assessment and Plan (1) CHF (congestive heart failure) Status: Acute (2) Hypotension Status: Resolved (3) Acute kidney injury Status: Acute (4) Hyponatremia Status: Acute (5) Metabolic alkalosis Status: Resolved (6) Pleural effusion Status: Chronic
[2017-02-02] MEDS: Insulin Detemir 100 units/ml Vial (Levemir) SC SCH (21:29)
[2017-02-03] MEDS: guaiFENesin 100 mg/5 ml Syrup UD PO PRN ×2 (02:24→09:33)
[2017-02-03] MEDS: Pantoprazole 40 mg EC Tab PO SCH (06:02)
[2017-02-03] MEDS: Levothyroxine 125 MCG TAB PO SCH (06:03)
[2017-02-03] MEDS: Albuterol-Ipratrop 3 mg / 0.5 (3 ml) UD IH SCH ×3 (08:00→14:34)
[2017-02-03 09:20] VITALS: BP 108/77; PULSE 112; RESP 20; TEMP 97.5; O2SAT 95
[2017-02-03] MEDS: Insulin Reg-HIGH-Coverage SC SCH ×2 (09:24→11:40)
[2017-02-03] MEDS: Ammonium Lactate 12% Cream (140 g) TOP SCH (09:25)
[2017-02-03] MEDS: Nystatin 100,000 Units/gm Topical Pow(15 gm) TOP SCH (09:27)
[2017-02-03] MEDS: Nystatin-Triamcinolone Cream(30 gm) TOP SCH (09:28)
--- NOTE | 2017-02-03 11:23 | CP.PCM.PN ---
Subjective - Date & Time of Evaluation Date of Evaluation: 02/03/17 Time of Evaluation: 10:45 - Subjective Subjective: 51 yo F w/ htn, dm, CHF w/ severe systolic dysfunction and MR, bipolar disorder , admitted initially with hyperglycemia; Patient reports wanting to leave and go back to nursing home; when asked about the issue with insulin administration in the nursing home, she's not able to give an answer; ambulating jones with her walker; Objective - Vital Signs/Intake and Output Vital Signs (last 24 hours): Temp Pulse Resp BP Pulse Ox 97.5 F L 112 H 20 108/77 95 02/03/17 09:19 02/03/17 09:25 02/03/17 09:19 02/03/17 09:25 02/03/17 09:19 Intake and Output: 02/03/17 02/03/17 06:59 18:59 Intake Total 900 Balance 900 - Medications Medications: Current Medications Albuterol/Ipratropium (Duoneb 3 Mg/0.5 Mg (3 Ml) Ud) 3 ml IH [id number] [facility] Last Admin: 02/03/17 09:24 Dose: Not Given Apixaban (Eliquis) 5 mg PO BID [facility] PRN Reason: Protocol Last Admin: 02/03/17 09:24 Dose: 5 mg Bumetanide (Bumex) 1 mg PO Q8H [facility] Last Admin: 02/03/17 06:02 Dose: 1 mg Clonazepam (Klonopin) 0.5 mg PO DAILY [facility] PRN Reason: Protocol Last Admin: 02/03/17 09:25 Dose: 0.5 mg Digoxin (Lanoxin) 0.125 mg PO 1400 [facility] Last Admin: 01/29/17 13:43 Dose: 0.125 mg Ferrous Sulfate (Feosol) 324 mg PO DAILY [facility] Last Admin: 02/03/17 09:24 Dose: 324 mg Furosemide (Lasix) 20 mg IVP Q8 [facility] Last Admin: 02/02/17 13:32 Dose: Not Given Gabapentin (Neurontin) 100 mg PO BID [facility] PRN Reason: Protocol Last Admin: 02/03/17 09:27 Dose: 100 mg Guaifenesin (Robitussin) 100 mg PO Q4H PRN PRN Reason: Cough Last Admin: 02/03/17 09:33 Dose: 100 mg Insulin Detemir (Levemir) 25 unit SC HS [facility] Last Admin: 02/02/17 21:29 Dose: 25 unit Insulin Human Regular (Humulin R High) 0 units SC ACHS [facility] PRN Reason: Protocol Last Admin: 02/03/17 09:24 Dose: Not Given Lactic Acid (Lac-Hydrin 12% Cream (140 G)) 0 ea TOP BID [facility] Last Admin: 02/03/17 09:25 Dose: 1 applic Levothyroxine Sodium (Synthroid) 125 mcg PO 0600 [facility] Last Admin: 02/03/17 06:03 Dose: 125 mcg Losartan Potassium (Cozaar) 12.5 mg PO DAILY [facility] Last Admin: 01/29/17 09:27 Dose: Not Given Metoprolol Tartrate (Lopressor) 12.5 mg PO BID [facility] Last Admin: 02/03/17 09:25 Dose: 12.5 mg Nystatin (Nystop Topical Powder) 1 gm TOP BID [facility] Last Admin: 02/03/17 09:27 Dose: 1 applic Nystatin/Triamcinolone Acetonide (Nystatin/Triamcinolone Cream) 1 ea TOP BID [facility] Last Admin: 02/03/17 09:28 Dose: 1 applic Ondansetron HCl (Zofran Inj) 4 mg IVP Q4H PRN PRN Reason: Nausea/Vomiting Last Admin: 02/01/17 10:13 Dose: 4 mg Pantoprazole Sodium (Protonix Ec Tab) 40 mg PO 0600 [facility] Last Admin: 02/03/17 06:02 Dose: 40 mg Quetiapine Fumarate (Seroquel) 50 mg PO [facility] PRN Reason: Protocol Last Admin: 02/03/17 09:29 Dose: 50 mg Spironolactone (Aldactone) 25 mg PO DAILY [facility] Last Admin: 02/03/17 09:24 Dose: 25 mg Tramadol HCl (Ultram) 50 mg PO Q8H PRN PRN Reason: Pain, moderate (4-7) Last Admin: 01/31/17 21:52 Dose: 50 mg - Labs Labs: 02/02/17 07:00 02/02/17 09:20 PT 14.2 SECONDS (9.4-12.5) H 01/27/17 01:30 INR 1.30 (0.93-1.08) H 01/27/17 01:30 APTT 28.1 Seconds (25.1-36.5) 01/27/17 01:30 - Constitutional Appears: Non-toxic, No Acute Distress - Head Exam Head Exam: NORMAL INSPECTION - Eye Exam Eye Exam: Normal appearance. absent: Scleral icterus - ENT Exam ENT Exam: Mucous Membranes Moist - Respiratory Exam Additional comments: Decreased breath sounds at bases; otherwise clear; - Cardiovascular Exam Cardiovascular Exam: Tachycardia, Gallop, REGULAR RHYTHM, +S1, +S2 Additional comments: S3 present; - GI/Abdominal Exam GI & Abdominal Exam: Soft. absent: Distended, Tenderness - Extremities Exam Additional comments: markedly edematous lower legs, worsened; - Neurological Exam Neurological Exam: Alert, Awake - Psychiatric Exam Psychiatric exam: Agitated - Skin Skin Exam: Warm. absent: Cyanosis Assessment and Plan (1) CHF (congestive heart failure) Assessment & Plan: With severe systolic failure and MR; leg swelling increased but overall symptoms stable and able to ambulate without resp distress; switched from IV to PO diuretics yesterday in hopes of being able to d/c home; also restarted B- melissa and aldactone; will await today's labs and restart losartan; consider restarting digoxin as well; Status: Acute (2) Hypotension Assessment & Plan: Secondary to over-diuresis; BP currently stable; should continue diuretics and cardiac meds as long as SBP > 90; Status: Resolved (3) Acute kidney injury Assessment & Plan: Resolving; due to over-diuresis; awaiting labs today; need optimize cardiac meds to avoid cardiorenal OLLIE; Status: Acute (4) Hyponatremia Assessment & Plan: Also improved; awaiting today's labs; can likely keep off tolvaptan as long as cardiac status is improved; Status: Acute (5) Metabolic alkalosis Assessment & Plan: Need to monitor periodially in the setting of being on loop diuretics; continue aldactone 25 mg daily; if stable, increase to bid; Status: Resolved (6) Pleural effusion Assessment & Plan: Extensive effusions but chronic and not causing resp distress; may benefit from thoracentesis if doesn't resolve with diuretics; Status: Chronic
[2017-02-03 11:49] LABS: BASO # 0.06 K/mm3 (0.0-2.0); BASO % 0.6 % (0.0-3.0); EOS # 0.2 (0.0-0.7); EOS % 1.8 % (1.5-5.0); GRAN # 6.97 (1.4-6.5); GRAN % 68.2 % (50.0-68.0); HEMATOCRIT 42.3 % (36.0-48.0); LYMPH # 2.1 (1.2-3.4); LYMPH % 20.2 % (22.0-35.0); MEAN CELL VOLUME 82.9 fl (80.0-105.0); MEAN CORPUSCULAR HGB CONC 33.8 g/dl (31.0-37.0); MONO # 0.9 (0.1-0.6); MONO % 9.2 % (1.0-6.0); RED CELL DISTRIBUTION WIDTH 16.9 % (11.5-14.5); WHITE BLOOD COUNT 10.2 10^3/ul (4.5-11.0)
[2017-02-03 11:59] LABS: ALB/GLOB RATIO 1.1 (1.1-1.8); ALKALINE PHOSPHATASE 273 U/L (38-126); ALT/SGPT 33 U/L (7-56); AST/SGOT 31 U/L (14-36); BILIRUBIN,TOTAL 0.8 mg/dL (0.2-1.3); BLOOD UREA NITROGEN 44 mg/dL (7-21); CALCIUM 9.2 mg/dL (8.4-10.5); CARBON DIOXIDE 23 mmol/L (21-33); CHLORIDE 90 mmol/L (98-107); GFR AFRICAN-AMERICAN > 60; GLUCOSE,RANDOM 259 mg/dL (70-110); MAGNESIUM 2.1 mg/dL (1.7-2.2); PHOSPHOROUS 4.2 mg/dL (2.5-4.5); POTASSIUM 5.1 mmol/L (3.6-5.0); SODIUM 125 mmol/L (132-148); TOTAL PROTEIN 7.1 g/dL (5.8-8.3)
--- NOTE | 2017-02-03 12:56 | CP.PCM.PN ---
<Eduardo Flynn - Last Filed: 02/03/17 13:16> Subjective - Date & Time of Evaluation Date of Evaluation: 02/03/17 Time of Evaluation: 09:30 - Subjective Subjective: patient was seen and examined at bedside. states that she is still having a mild cough and swelling in her legs but overall feeling better. pt states that her [id number] will be coming with a truck and that she wants to leave with her. It was discussed with the patient that she is not medically cleared for d/ c yet as her meds are being changed for optimization. pt states that she understands. otherwise, denies cp, sob, cough, n/v/d, fevers/chills, abdominal pain, or headaches. Objective - Vital Signs/Intake and Output Vital Signs (last 24 hours): Temp Pulse Resp BP Pulse Ox 97.5 F L 112 H 20 108/77 95 02/03/17 09:19 02/03/17 09:25 02/03/17 09:19 02/03/17 09:25 02/03/17 09:19 Intake and Output: 02/03/17 02/03/17 06:59 18:59 Intake Total 900 Balance 900 - Medications Medications: Current Medications Albuterol/Ipratropium (Duoneb 3 Mg/0.5 Mg (3 Ml) Ud) 3 ml IH [id number] [facility] Last Admin: 02/03/17 09:24 Dose: Not Given Apixaban (Eliquis) 5 mg PO BID [facility] PRN Reason: Protocol Last Admin: 02/03/17 09:24 Dose: 5 mg Bumetanide (Bumex) 1 mg PO Q8H [id number] Last Admin: 02/03/17 06:02 Dose: 1 mg Clonazepam (Klonopin) 0.5 mg PO DAILY [facility] PRN Reason: Protocol Last Admin: 02/03/17 09:25 Dose: 0.5 mg Digoxin (Lanoxin) 0.125 mg PO 1400 [facility] Last Admin: 01/29/17 13:43 Dose: 0.125 mg Ferrous Sulfate (Feosol) 324 mg PO DAILY [facility] Last Admin: 02/03/17 09:24 Dose: 324 mg Furosemide (Lasix) 20 mg IVP Q8 [facility] Last Admin: 02/02/17 13:32 Dose: Not Given Gabapentin (Neurontin) 100 mg PO BID [facility] PRN Reason: Protocol Last Admin: 02/03/17 09:27 Dose: 100 mg Guaifenesin (Robitussin) 100 mg PO Q4H [facility] PRN Reason: Cough Last Admin: 02/03/17 09:33 Dose: 100 mg Insulin Detemir (Levemir) 25 unit SC HS [facility] Last Admin: 02/02/17 21:29 Dose: 25 unit Insulin Human Regular (Humulin R High) 0 units SC ACHS [facility] PRN Reason: Protocol Last Admin: 02/03/17 09:24 Dose: Not Given Lactic Acid (Lac-Hydrin 12% Cream (140 G)) 0 ea TOP BID [facility] Last Admin: 02/03/17 09:25 Dose: 1 applic Levothyroxine Sodium (Synthroid) 125 mcg PO 0600 [facility] Last Admin: 02/03/17 06:03 Dose: 125 mcg Losartan Potassium (Cozaar) 12.5 mg PO DAILY [facility] Last Admin: 01/29/17 09:27 Dose: Not Given Metoprolol Tartrate (Lopressor) 12.5 mg PO BID [facility] Last Admin: 02/03/17 09:25 Dose: 12.5 mg Nystatin (Nystop Topical Powder) 1 gm TOP BID [facility] Last Admin: 02/03/17 09:27 Dose: 1 applic Nystatin/Triamcinolone Acetonide (Nystatin/Triamcinolone Cream) 1 ea TOP BID [facility] Last Admin: 02/03/17 09:28 Dose: 1 applic Ondansetron HCl (Zofran Inj) 4 mg IVP Q4H PRN PRN Reason: Nausea/Vomiting Last Admin: 02/01/17 10:13 Dose: 4 mg Pantoprazole Sodium (Protonix Ec Tab) 40 mg PO 0600 [facility] Last Admin: 02/03/17 06:02 Dose: 40 mg Quetiapine Fumarate (Seroquel) 50 mg PO AMHS [facility] PRN Reason: Protocol Last Admin: 02/03/17 09:29 Dose: 50 mg Spironolactone (Aldactone) 25 mg PO DAILY [facility] Last Admin: 02/03/17 09:24 Dose: 25 mg Tramadol HCl (Ultram) 50 mg PO Q8H PRN PRN Reason: Pain, moderate (4-7) Last Admin: 02/03/17 12:46 Dose: 50 mg - Labs Labs: 02/03/17 11:44 02/03/17 11:44 PT 14.2 SECONDS (9.4-12.5) H 01/27/17 01:30 INR 1.30 (0.93-1.08) H 01/27/17 01:30 APTT 28.1 Seconds (25.1-36.5) 01/27/17 01:30 - Additional Findings Additional findings: - Constitutional Appears: Well, Non-toxic, No Acute Distress - Head Exam Head Exam: ATRAUMATIC, NORMAL INSPECTION, NORMOCEPHALIC - Eye Exam Eye Exam: EOMI, Normal appearance, PERRL Pupil Exam: NORMAL ACCOMODATION - ENT Exam ENT Exam: Mucous Membranes Moist, Normal Exam - Neck Exam Neck Exam: Full ROM - Respiratory Exam Respiratory Exam: Decreased Breath Sounds (B/L), Clear to Ausculation Bilateral , NORMAL BREATHING PATTERN. absent: Accessory Muscle Use, Rales, Rhonchi, Wheezes, Respiratory Distress - Cardiovascular Exam Cardiovascular Exam: Tachycardia, REGULAR RHYTHM. absent: Murmur - GI/Abdominal Exam GI & Abdominal Exam: Soft, Normal Bowel Sounds. absent: Distended, Tenderness - Extremities Exam Extremities Exam: absent: Calf Tenderness Additional comments: 2+ pedal edema b/l erythematous and peeling skin - Back Exam Back Exam: NORMAL INSPECTION - Neurological Exam Neurological Exam: Alert, Awake, Oriented x3 - Psychiatric Exam Psychiatric exam: Normal Affect, Normal Mood - Skin Skin Exam: Erythema (b/l LE diffuse), Normal Color, Warm Additional comments: b/l LE anterior skin peeling Assessment and Plan - Assessment and Plan (Free Text) Assessment: 51yo F with a PMHx of DM2, CHF, HTN, non-ischemic cardiomyopathy, chronic pleural effusion, DVT, PE, hypothyroidism, and schizophrenia presented to the [facility] by EMS with complaints of b/l LE swelling and pain. Last ECHO was 30%. Clinically, pt is improving. Will see if progresses on PO meds. Plan: 1. Acute on chronic CHF exacerbation (systolic dysfunction) - start Bumex, Aldactone and Lopressor to see if patient improves on PO meds - holding Lasix, Digoxin, and Losartan per Renal recs - LE dopplers negative for DVT - Leg elevation, OOB - Daily weights, strict I/Os - Cardiology on consult, rec to continue gentle diuresis as pt is improving 2. Tacycardia likely due to Hx Afib - cont Lopressor - currently NSR - continue Eliquis 5 mg BID 3. OLLIE/Hyponatremia, resolved - Nephro on consult, f/u recommendations 4. cough, improving - Robitussin 5. B/L LE Cellulitis vs Hx of chronic venous stasis - cont lac hydrin - hold off on starting abx at this time per ID recs - no leukocytosis, afebrile - Pain control PRN 6. B/L breast rash, improving - continue nystatin cream, nystatin powder - ID consulted, f/u recommendations 7. DM2 - Continue Levemir 25u QHS - High dose Humalog ISS - Accuchecks ACHS - Continue gabapentin 8. Hypothyroidism - Continue synthroid PTX/ Eliquis Diet: Consistent Carbs Patient was seen, examined and discussed with attending, Dr. Perry Flynn PGY1 <Annmarie Amador B - Last Filed: 02/04/17 13:55> Objective - Vital Signs/Intake and Output Vital Signs (last 24 hours): Temp Pulse Resp BP Pulse Ox 97.5 F L 112 H 20 108/77 95 02/03/17 09:19 02/03/17 09:25 02/03/17 09:19 02/03/17 09:25 02/03/17 09:19 Intake and Output: 02/03/17 02/03/17 06:59 18:59 Intake Total 900 900 Balance 900 900 - Medications Medications: Current Medications Albuterol/Ipratropium (Duoneb 3 Mg/0.5 Mg (3 Ml) Ud) 3 ml IH [id number] [facility] Last Admin: 02/03/17 14:34 Dose: Not Given Apixaban (Eliquis) 5 mg PO BID [facility] PRN Reason: Protocol Last Admin: 02/03/17 09:24 Dose: 5 mg Bumetanide (Bumex) 1 mg PO Q8H [facility] Last Admin: 02/03/17 14:27 Dose: 1 mg Clonazepam (Klonopin) 0.5 mg PO DAILY [facility] PRN Reason: Protocol Last Admin: 02/03/17 09:25 Dose: 0.5 mg Digoxin (Lanoxin) 0.125 mg PO 1400 [facility] Last Admin: 01/29/17 13:43 Dose: 0.125 mg Ferrous Sulfate (Feosol) 324 mg PO DAILY [facility] Last Admin: 02/03/17 09:24 Dose: 324 mg Furosemide (Lasix) 20 mg IVP Q8 [facility] Last Admin: 02/02/17 13:32 Dose: Not Given Gabapentin (Neurontin) 100 mg PO BID [facility] PRN Reason: Protocol Last Admin: 02/03/17 09:27 Dose: 100 mg Guaifenesin (Robitussin) 100 mg PO Q4H PRN PRN Reason: Cough Last Admin: 02/03/17 09:33 Dose: 100 mg Insulin Detemir (Levemir) 25 unit SC HS [facility] Last Admin: 02/02/17 21:29 Dose: 25 unit Insulin Human Regular (Humulin R High) 0 units SC ACHS [facility] PRN Reason: Protocol Last Admin: 02/03/17 11:40 Dose: 7 units Lactic Acid (Lac-Hydrin 12% Cream (140 G)) 0 ea TOP BID [facility] Last Admin: 02/03/17 09:25 Dose: 1 applic Levothyroxine Sodium (Synthroid) 125 mcg PO 0600 [facility] Last Admin: 02/03/17 06:03 Dose: 125 mcg Losartan Potassium (Cozaar) 12.5 mg PO DAILY [facility] Last Admin: 01/29/17 09:27 Dose: Not Given Metoprolol Tartrate (Lopressor) 12.5 mg PO BID [facility] Last Admin: 02/03/17 09:25 Dose: 12.5 mg Nystatin (Nystop Topical Powder) 1 gm TOP BID [facility] Last Admin: 02/03/17 09:27 Dose: 1 applic Nystatin/Triamcinolone Acetonide (Nystatin/Triamcinolone Cream) 1 ea TOP BID [facility] Last Admin: 02/03/17 09:28 Dose: 1 applic Ondansetron HCl (Zofran Inj) 4 mg IVP Q4H PRN PRN Reason: Nausea/Vomiting Last Admin: 02/01/17 10:13 Dose: 4 mg Pantoprazole Sodium (Protonix Ec Tab) 40 mg PO 0600 [facility] Last Admin: 02/03/17 06:02 Dose: 40 mg Quetiapine Fumarate (Seroquel) 50 mg PO AMHS [facility] PRN Reason: Protocol Last Admin: 02/03/17 09:29 Dose: 50 mg Spironolactone (Aldactone) 25 mg PO DAILY [facility] Last Admin: 02/03/17 09:24 Dose: 25 mg Tramadol HCl (Ultram) 50 mg PO Q8H PRN PRN Reason: Pain, moderate (4-7) Last Admin: 02/03/17 12:46 Dose: 50 mg - Labs Labs: 02/03/17 11:44 02/03/17 11:44 PT 14.2 SECONDS (9.4-12.5) H 01/27/17 01:30 INR 1.30 (0.93-1.08) H 01/27/17 01:30 APTT 28.1 Seconds (25.1-36.5) 01/27/17 01:30 Attending/Attestation - Attestation I have personally seen and examined this patient.: Yes I have fully participated in the care of the patient.: Yes I have reviewed all pertinent clinical information, including history, physical exam and plan: Yes Notes (Text): I have seen and examined the patient at bedside. Agree with the above note with the following additions/ exceptions: Briefly this is 51 year old female with history of DM-2, CHF (EF~30%), HTN, chronic leg edema, DVT/ PE on eliquis, hypothyroidism, schizophrenia was admitted with acute on chronic CHF exacerbation and bilateral LE edema. Patient denies any complaints at this time. Renal function has improved and she still has decreased breath sounds bilaterally. Patient's medications are being readjusted and she was advised that she is not ready to go home as of yet however she reports that her sister in law is coming with truck and patient wants to leave AMA. Patient was advised regarding complications and she verbalized understanding. Her LE cellulitis is stable. She is not on any antibiotics at this time. Continue nystatin powder for fungal rash. PT walked the patient and she was able to walk across the hallway with the help of walker. Patient needs to stay in the hospital for adjustment of her medications. Patient was explained that she is not ready to be discharged at this time. She is requesting for AMA. SW called the patients [facility] and found out that there is a place to store insulin at residential. Upon discharge patient will follow up with Dr Roman. Dr Annmarie Amador
--- NOTE | 2017-02-03 16:23 | CP.PCM.PN ---
Subjective - Date & Time of Evaluation Date of Evaluation: 02/03/17 Time of Evaluation: 15:00 - Subjective Subjective: Infectious Disease Follow Up: February 03, 2017 51 yo female presenting with worsening bilateral LE swelling and pain. The patient has an extensive medical history that includes DM, CHF, HTN, non-ischemic cardiomyopathy, chronic pleural effusion, DVT, PE, hypothyroidism, and schizophrenia. The patient is currently living in a senior care. The patient was set up for living arrangements on her last hospitalization one month ago. Unclear what happened as the patient is unwilling to talk about it. She remains mostly uncooperative with exam. She provides little information during interview sessions. She can be uncompliant with her medications even in the hospital. Objective - Vital Signs/Intake and Output Vital Signs (last 24 hours): Temp Pulse Resp BP Pulse Ox 97.5 F L 112 H 20 108/77 95 02/03/17 09:19 02/03/17 09:25 02/03/17 09:19 02/03/17 09:25 02/03/17 09:19 Intake and Output: 02/03/17 02/03/17 06:59 18:59 Intake Total 900 900 Balance 900 900 - Medications Medications: Current Medications Albuterol/Ipratropium (Duoneb 3 Mg/0.5 Mg (3 Ml) Ud) 3 ml IH [id number] [facility] Last Admin: 02/03/17 14:34 Dose: Not Given Apixaban (Eliquis) 5 mg PO BID [facility] PRN Reason: Protocol Last Admin: 02/03/17 09:24 Dose: 5 mg Bumetanide (Bumex) 1 mg PO Q8H [facility] Last Admin: 02/03/17 14:27 Dose: 1 mg Clonazepam (Klonopin) 0.5 mg PO DAILY [facility] PRN Reason: Protocol Last Admin: 02/03/17 09:25 Dose: 0.5 mg Digoxin (Lanoxin) 0.125 mg PO 1400 [facility] Last Admin: 01/29/17 13:43 Dose: 0.125 mg Ferrous Sulfate (Feosol) 324 mg PO DAILY [facility] Last Admin: 02/03/17 09:24 Dose: 324 mg Furosemide (Lasix) 20 mg IVP Q8 [facility] Last Admin: 02/02/17 13:32 Dose: Not Given Gabapentin (Neurontin) 100 mg PO BID [facility] PRN Reason: Protocol Last Admin: 02/03/17 09:27 Dose: 100 mg Guaifenesin (Robitussin) 100 mg PO Q4H PRN PRN Reason: Cough Last Admin: 02/03/17 09:33 Dose: 100 mg Insulin Detemir (Levemir) 25 unit SC HS [facility] Last Admin: 02/02/17 21:29 Dose: 25 unit Insulin Human Regular (Humulin R High) 0 units SC ACHS [facility] PRN Reason: Protocol Last Admin: 02/03/17 11:40 Dose: 7 units Lactic Acid (Lac-Hydrin 12% Cream (140 G)) 0 ea TOP BID [facility] Last Admin: 02/03/17 09:25 Dose: 1 applic Levothyroxine Sodium (Synthroid) 125 mcg PO 0600 [facility] Last Admin: 02/03/17 06:03 Dose: 125 mcg Losartan Potassium (Cozaar) 12.5 mg PO DAILY [facility] Last Admin: 01/29/17 09:27 Dose: Not Given Metoprolol Tartrate (Lopressor) 12.5 mg PO BID [facility] Last Admin: 02/03/17 09:25 Dose: 12.5 mg Nystatin (Nystop Topical Powder) 1 gm TOP BID [facility] Last Admin: 02/03/17 09:27 Dose: 1 applic Nystatin/Triamcinolone Acetonide (Nystatin/Triamcinolone Cream) 1 ea TOP BID [facility] Last Admin: 02/03/17 09:28 Dose: 1 applic Ondansetron HCl (Zofran Inj) 4 mg IVP Q4H PRN PRN Reason: Nausea/Vomiting Last Admin: 02/01/17 10:13 Dose: 4 mg Pantoprazole Sodium (Protonix Ec Tab) 40 mg PO 0600 [facility] Last Admin: 02/03/17 06:02 Dose: 40 mg Quetiapine Fumarate (Seroquel) 50 mg PO AMHS [facility] PRN Reason: Protocol Last Admin: 02/03/17 09:29 Dose: 50 mg Spironolactone (Aldactone) 25 mg PO DAILY [facility] Last Admin: 02/03/17 09:24 Dose: 25 mg Tramadol HCl (Ultram) 50 mg PO Q8H PRN PRN Reason: Pain, moderate (4-7) Last Admin: 02/03/17 12:46 Dose: 50 mg - Labs Labs: 02/03/17 11:44 02/03/17 11:44 PT 14.2 SECONDS (9.4-12.5) H 01/27/17 01:30 INR 1.30 (0.93-1.08) H 01/27/17 01:30 APTT 28.1 Seconds (25.1-36.5) 01/27/17 01:30 - Constitutional Appears: Non-toxic, No Acute Distress, Chronically Ill - Head Exam Head Exam: ATRAUMATIC, NORMOCEPHALIC - Eye Exam Eye Exam: EOMI, PERRL Pupil Exam: NORMAL ACCOMODATION, PERRL - ENT Exam ENT Exam: Mucous Membranes Moist, Normal External Ear Exam, TM's Normal Bilaterally - Neck Exam Neck Exam: Full ROM, Normal Inspection - Respiratory Exam Respiratory Exam: Decreased Breath Sounds, NORMAL BREATHING PATTERN. absent: Rales, Rhonchi, Wheezes - Cardiovascular Exam Cardiovascular Exam: REGULAR RHYTHM, RRR, +S1, +S2 - GI/Abdominal Exam GI & Abdominal Exam: Soft, Normal Bowel Sounds. absent: Distended, Tenderness - Extremities Exam Extremities Exam: Joint Swelling, Pedal Edema Additional comments: erythematous b/l le, +2-3 pitting edema, chronic venous stasis - Neurological Exam Neurological Exam: Alert, Awake, CN II-XII Intact, Oriented x3 - Psychiatric Exam Psychiatric exam: Normal Affect, Normal Mood - Skin Skin Exam: Dry Assessment and Plan - Assessment and Plan (Free Text) Assessment: 51 yo female who is non-compliant with her meds presenting with bilateral lower leg swelling and pain. Uncontrolled CHF. At worse, mild cellulitis. Would hold off on antibiotic therapy and treat CHF at this time. Supportive care. There is a rash under the breasts which is fungal in nature. I would continue with nystatin cream for these areas. Patient is generally uncooperative with exam and interview process. Cultures negative to date. The patient was receiving Dobutamine for hypotension. Some improvement of the lower leg cellulitis. Thank you for allowing me to participate in the care of the patient, we will follow with you.
--- NOTE | 2017-02-04 17:11 | CP.PCM.DIS ---
<Eduardo Flynn - Last Filed: 02/04/17 17:18> Provider - Provider Date of Admission: 01/27/17 03:09 Attending physician: Annmarie Amador MD Primary care physician: Richardson Roman MD Time Spent in preparation of Discharge (in minutes): 45 Hospital Course - Lab Results Lab Results: Micro Results 01/31/17 07:35 Urine,Clean Catch Urine Culture - Final No Growth (<1,000 CFU/ML) Most Recent Lab Values WBC 10.2 10^3/ul (4.5-11.0) D 02/03/17 11:44 RBC 5.10 10^6/uL (3.5-6.1) 02/03/17 11:44 Hgb 14.3 g/dL (12.0-16.0) 02/03/17 11:44 Hct 42.3 % (36.0-48.0) 02/03/17 11:44 MCV 82.9 fl (80.0-105.0) 02/03/17 11:44 MCH 28.0 pg (25.0-35.0) 02/03/17 11:44 MCHC 33.8 g/dl (31.0-37.0) 02/03/17 11:44 RDW 16.9 % (11.5-14.5) H 02/03/17 11:44 Plt Count 482 10^3/uL (120.0-450.0) H 02/03/17 11:44 MPV 10.0 fl (7.0-11.0) 02/03/17 11:44 Gran % 68.2 % (50.0-68.0) H 02/03/17 11:44 Lymph % (Auto) 20.2 % (22.0-35.0) L 02/03/17 11:44 [place] % (Auto) 9.2 % (1.0-6.0) H 02/03/17 11:44 Eos % (Auto) 1.8 % (1.5-5.0) 02/03/17 11:44 Baso % (Auto) 0.6 % (0.0-3.0) 02/03/17 11:44 Gran # 6.97 (1.4-6.5) H 02/03/17 11:44 Lymph # 2.1 (1.2-3.4) 02/03/17 11:44 [place] # 0.9 (0.1-0.6) H 02/03/17 11:44 Eos # 0.2 (0.0-0.7) 02/03/17 11:44 Baso # 0.06 K/mm3 (0.0-2.0) 02/03/17 11:44 ESR 29 mm/hr (0.0-20.0) H 01/27/17 08:00 PT 14.2 SECONDS (9.4-12.5) H 01/27/17 01:30 INR 1.30 (0.93-1.08) H 01/27/17 01:30 APTT 28.1 Seconds (25.1-36.5) 01/27/17 01:30 Sodium 125 mmol/L (132-148) L 02/03/17 11:44 Potassium 5.1 mmol/L (3.6-5.0) H 02/03/17 11:44 Chloride 90 mmol/L (98-107) L 02/03/17 11:44 Carbon Dioxide 23 mmol/L (21-33) 02/03/17 11:44 Anion Gap 17 (10-20) 02/03/17 11:44 BUN 44 mg/dL (7-21) H 02/03/17 11:44 Creatinine 1.1 mg/dL (0.7-1.2) 02/03/17 11:44 Est GFR ( Amer) > 60 02/03/17 11:44 Est GFR (Non-Af Amer) 52 02/03/17 11:44 POC Glucose (mg/dL) 269 mg/dL (65-110) H 02/03/17 11:50 Random Glucose 259 mg/dL (70-110) H 02/03/17 11:44 Hemoglobin A1c 12.0 % (4.2-6.5) H 01/27/17 08:00 Calcium 9.2 mg/dL (8.4-10.5) 02/03/17 11:44 Phosphorus 4.2 mg/dL (2.5-4.5) 02/03/17 11:44 Magnesium 2.1 mg/dL (1.7-2.2) 02/03/17 11:44 Total Bilirubin 0.8 mg/dL (0.2-1.3) 02/03/17 11:44 AST 31 U/L (14-36) 02/03/17 11:44 ALT 33 U/L (7-56) 02/03/17 11:44 Alkaline Phosphatase 273 U/L (38-126) H 02/03/17 11:44 Lactate Dehydrogenase 571 U/L (333-699) 01/27/17 01:30 Total Creatine Kinase 35 U/L (35-230) 01/27/17 01:30 Troponin I 0.02 ng/mL 01/27/17 01:30 NT-Pro-B Natriuret Pep 98451 pg/mL (0-450) H 01/27/17 01:30 Total Protein 7.1 g/dL (5.8-8.3) 02/03/17 11:44 Albumin 3.7 g/dL (3.0-4.8) 02/03/17 11:44 Globulin 3.4 gm/dL 02/03/17 11:44 Albumin/Globulin Ratio 1.1 (1.1-1.8) 02/03/17 11:44 Procalcitonin 0.86 NG/ML (0.19-0.49) H 01/30/17 07:03 TSH 3rd Generation 4.83 mIU/mL (0.46-4.68) H 01/30/17 07:03 Urine Color Light yellow (YELLOW) 01/31/17 07:35 Urine Appearance Sl cloudy (CLEAR) 01/31/17 07:35 Urine pH 6.0 (4.7-8.0) 01/31/17 07:35 Ur Specific [place] 1.010 (1.005-1.035) 01/31/17 07:35 Urine Protein Trace mg/dL (<30 mg/dL) H 01/31/17 07:35 Urine Glucose (UA) Negative mg/dL (NEGATIVE) 01/31/17 07:35 Urine Ketones Negative mg/dL (NEGATIVE) 01/31/17 07:35 Urine Blood Trace-intact (NEGATIVE) H 01/31/17 07:35 Urine Nitrate Negative (NEGATIVE) 01/31/17 07:35 Urine Bilirubin Negative (NEGATIVE) 01/31/17 07:35 Urine Urobilinogen 0.2 E.U./dL (<1 E.U./dL) 01/31/17 07:35 Ur Leukocyte Esterase Moderate Jason/uL (NEGATIVE) H 01/31/17 07:35 Urine RBC 0 - 2 /hpf (0-2) 01/31/17 07:35 Urine WBC 5 - 10 /hpf (0-6) 01/31/17 07:35 Ur Epithelial Cells Many /hpf (0-5) 01/31/17 07:35 Urine Bacteria Mod (NEG) 01/31/17 07:35 Urine Osmolality 263 mosm/kg (300-1000) L 01/31/17 08:15 Ur Random Creatinine 45 mg/dL 01/31/17 08:15 Ur Random Sodium < 5 meq/L 01/31/17 08:15 Ur Random Urea Nitrogn 505 mg/dL 01/31/17 08:15 Digoxin 0.8 ng/mL (0.8-2.0) 01/27/17 08:00 - Hospital Course Hospital Course: 51 F with a PMHx of DM2, CHF, HTN, non-ischemic cardiomyopathy, chronic pleural effusion, DVT, PE, hypothyroidism, and schizophrenia presented to the [facility] by EMS with complaints of b/l LE swelling and pain. Pt states that her symptoms began roughly one week ago and has been increasingly worsening. Pt also has complaints of rash and itching to the underside of her breasts b/l. Pt states she visited her PMD recently and was prescribed medication to help with the swelling, however she hadn't noticed much of a change in her symptoms and decided to seek further medical attention. Patient was transferred to the remote [facility] floor and Cardio, Renal and ID were all consulted. Patient was started on Lasix but then found to hypotensive so a dobutamine drip was started. Midodrine was also started. Diuretics were held until BP stabilized. Pt came off midodrine and dobutamine and maintained a good BP, but LE swelling worsened and the pt had decreased breath sounds and was sob. therefore, bumex and aldactone were started and lopressor for tachycardia. The patient became hyponatremic and renal was in the process of adjusting medications. PT evaluated the patient and she has been improving and tolerating walking with walker off O2. SW was in the process of getting the patient accepted into [facility]. On 02/03, the patient requested to leave AMA and was counselled in length by medical team about the risks of leaving with unstable electolytes (mainly hyponatremia) and not having been on PO meds long enough to determine efficacy. Pt stated that she understood all the risks of leaving and benefits of staying but that her [id number] Rona called and told her that she has been in the hospital long enough and that it was time to leave. The medical team requested to speak with Rona in person, however the patient declined. Renal team provided recs for d/c medications and recommended Digoxin and Bumex, and lopressor due to patient's CHF and hyponatremia to avoid worsening condition. The patient signed out AMA. Pt should f/u PMD, Renal and Cardio as outpatient. - Date & Time of H&P Date of H&P: 01/27/17 Time of H&P: 05:54 Discharge Exam - Additional Findings Additional findings: - Constitutional Appears: Well, Non-toxic, No Acute Distress - Head Exam Head Exam: ATRAUMATIC, NORMAL INSPECTION, NORMOCEPHALIC - Eye Exam Eye Exam: EOMI, Normal appearance, PERRL Pupil Exam: NORMAL ACCOMODATION - ENT Exam ENT Exam: Mucous Membranes Moist, Normal Exam - Neck Exam Neck Exam: Full ROM - Respiratory Exam Respiratory Exam: Decreased Breath Sounds (B/L), Clear to Ausculation Bilateral , NORMAL BREATHING PATTERN. absent: Accessory Muscle Use, Rales, Rhonchi, Wheezes, Respiratory Distress - Cardiovascular Exam Cardiovascular Exam: Tachycardia, REGULAR RHYTHM. absent: Murmur - GI/Abdominal Exam GI & Abdominal Exam: Soft, Normal Bowel Sounds. absent: Distended, Tenderness - Extremities Exam Extremities Exam: absent: Calf Tenderness Additional comments: 2+ pedal edema b/l erythematous and peeling skin - Back Exam Back Exam: NORMAL INSPECTION - Neurological Exam Neurological Exam: Alert, Awake, Oriented x3 - Psychiatric Exam Psychiatric exam: Normal Affect, Normal Mood - Skin Skin Exam: Erythema (b/l LE diffuse), Normal Color, Warm Additional comments: b/l LE anterior skin peeling Discharge Plan - Discharge Medications Prescriptions: Apixaban [Eliquis] 5 mg PO BID #30 tab Bumetanide [Bumex] 1 mg PO BID #30 tab Digoxin [Lanoxin] 0.125 mg PO 1400 #15 tab Gabapentin [Neurontin] 100 mg PO BID #30 cap Insulin Detemir [Levemir] 20 units SC HS #15 unit Levothyroxine [Synthroid] 125 mcg PO DAILY #15 tab metFORMIN [glucOPHAGE] 500 mg PO DAILY #30 tab Metoprolol Tartrate [Lopressor] 12.5 mg PO BID #30 tab - Follow Up Plan Condition: FAIR Disposition: AGAINST MEDICAL ADVICE Instructions: Heart Failure (ED), Cellulitis (ED) Referrals: Cesar Kinney MD [Staff Provider] - Akash French MD [Staff Provider] - Richardson Roman MD [Primary Care Provider] - <Annmarie Amador - Last Filed: 02/04/17 17:52> Provider - Provider Date of Admission: 01/27/17 03:09 Attending physician: Annmarie Amador MD Primary care physician: Richardson Roman MD Hospital Course - Lab Results Lab Results: Micro Results 01/31/17 07:35 Urine,Clean Catch Urine Culture - Final No Growth (<1,000 CFU/ML) Most Recent Lab Values WBC 10.2 10^3/ul (4.5-11.0) D 02/03/17 11:44 RBC 5.10 10^6/uL (3.5-6.1) 02/03/17 11:44 Hgb 14.3 g/dL (12.0-16.0) 02/03/17 11:44 Hct 42.3 % (36.0-48.0) 02/03/17 11:44 MCV 82.9 fl (80.0-105.0) 02/03/17 11:44 MCH 28.0 pg (25.0-35.0) 02/03/17 11:44 MCHC 33.8 g/dl (31.0-37.0) 02/03/17 11:44 RDW 16.9 % (11.5-14.5) H 02/03/17 11:44 Plt Count 482 10^3/uL (120.0-450.0) H 02/03/17 11:44 MPV 10.0 fl (7.0-11.0) 02/03/17 11:44 Gran % 68.2 % (50.0-68.0) H 02/03/17 11:44 Lymph % (Auto) 20.2 % (22.0-35.0) L 02/03/17 11:44 [place] % (Auto) 9.2 % (1.0-6.0) H 02/03/17 11:44 Eos % (Auto) 1.8 % (1.5-5.0) 02/03/17 11:44 Baso % (Auto) 0.6 % (0.0-3.0) 02/03/17 11:44 Gran # 6.97 (1.4-6.5) H 02/03/17 11:44 Lymph # 2.1 (1.2-3.4) 02/03/17 11:44 [place] # 0.9 (0.1-0.6) H 02/03/17 11:44 Eos # 0.2 (0.0-0.7) 02/03/17 11:44 Baso # 0.06 K/mm3 (0.0-2.0) 02/03/17 11:44 ESR 29 mm/hr (0.0-20.0) H 01/27/17 08:00 PT 14.2 SECONDS (9.4-12.5) H 01/27/17 01:30 INR 1.30 (0.93-1.08) H 01/27/17 01:30 APTT 28.1 Seconds (25.1-36.5) 01/27/17 01:30 Sodium 125 mmol/L (132-148) L 02/03/17 11:44 Potassium 5.1 mmol/L (3.6-5.0) H 02/03/17 11:44 Chloride 90 mmol/L (98-107) L 02/03/17 11:44 Carbon Dioxide 23 mmol/L (21-33) 02/03/17 11:44 Anion Gap 17 (10-20) 02/03/17 11:44 BUN 44 mg/dL (7-21) H 02/03/17 11:44 Creatinine 1.1 mg/dL (0.7-1.2) 02/03/17 11:44 Est GFR ( Amer) > 60 02/03/17 11:44 Est GFR (Non-Af Amer) 52 02/03/17 11:44 POC Glucose (mg/dL) 269 mg/dL (65-110) H 02/03/17 11:50 Random Glucose 259 mg/dL (70-110) H 02/03/17 11:44 Hemoglobin A1c 12.0 % (4.2-6.5) H 01/27/17 08:00 Calcium 9.2 mg/dL (8.4-10.5) 02/03/17 11:44 Phosphorus 4.2 mg/dL (2.5-4.5) 02/03/17 11:44 Magnesium 2.1 mg/dL (1.7-2.2) 02/03/17 11:44 Total Bilirubin 0.8 mg/dL (0.2-1.3) 02/03/17 11:44 AST 31 U/L (14-36) 02/03/17 11:44 ALT 33 U/L (7-56) 02/03/17 11:44 Alkaline Phosphatase 273 U/L (38-126) H 02/03/17 11:44 Lactate Dehydrogenase 571 U/L (333-699) 01/27/17 01:30 Total Creatine Kinase 35 U/L (35-230) 01/27/17 01:30 Troponin I 0.02 ng/mL 01/27/17 01:30 NT-Pro-B Natriuret Pep 83948 pg/mL (0-450) H 01/27/17 01:30 Total Protein 7.1 g/dL (5.8-8.3) 02/03/17 11:44 Albumin 3.7 g/dL (3.0-4.8) 02/03/17 11:44 Globulin 3.4 gm/dL 02/03/17 11:44 Albumin/Globulin Ratio 1.1 (1.1-1.8) 02/03/17 11:44 Procalcitonin 0.86 NG/ML (0.19-0.49) H 01/30/17 07:03 TSH 3rd Generation 4.83 mIU/mL (0.46-4.68) H 01/30/17 07:03 Urine Color Light yellow (YELLOW) 01/31/17 07:35 Urine Appearance Sl cloudy (CLEAR) 01/31/17 07:35 Urine pH 6.0 (4.7-8.0) 01/31/17 07:35 Ur Specific [place] 1.010 (1.005-1.035) 01/31/17 07:35 Urine Protein Trace mg/dL (<30 mg/dL) H 01/31/17 07:35 Urine Glucose (UA) Negative mg/dL (NEGATIVE) 01/31/17 07:35 Urine Ketones Negative mg/dL (NEGATIVE) 01/31/17 07:35 Urine Blood Trace-intact (NEGATIVE) H 01/31/17 07:35 Urine Nitrate Negative (NEGATIVE) 01/31/17 07:35 Urine Bilirubin Negative (NEGATIVE) 01/31/17 07:35 Urine Urobilinogen 0.2 E.U./dL (<1 E.U./dL) 01/31/17 07:35 Ur Leukocyte Esterase Moderate Jason/uL (NEGATIVE) H 01/31/17 07:35 Urine RBC 0 - 2 /hpf (0-2) 01/31/17 07:35 Urine WBC 5 - 10 /hpf (0-6) 01/31/17 07:35 Ur Epithelial Cells Many /hpf (0-5) 01/31/17 07:35 Urine Bacteria Mod (NEG) 01/31/17 07:35 Urine Osmolality 263 mosm/kg (300-1000) L 01/31/17 08:15 Ur Random Creatinine 45 mg/dL 01/31/17 08:15 Ur Random Sodium < 5 meq/L 01/31/17 08:15 Ur Random Urea Nitrogn 505 mg/dL 01/31/17 08:15 Digoxin 0.8 ng/mL (0.8-2.0) 01/27/17 08:00 Attending/Attestation - Attestation I have personally seen and examined this patient.: Yes I have fully participated in the care of the patient.: Yes I have reviewed all pertinent clinical information, including history, physical exam and plan: Yes Notes (Text): Patient left AMA. Upon discharge patient will follow up with Dr Roman.
== END 2017-02-03 16:25 | disposition left against medical advice (07) | DRG 544 ==
LOC: ED 22:31 → ERH 01-27 03:09 → 2RSO 01-27 04:33 → 3RSO 01-30 16:12
PROVIDERS: ADMIT Hospitalist; ATTEND Hospitalist
PROC: 3E0F7GC Introduction of Other Therapeutic Substance into Respiratory Tract, Via Natural or Artificial Opening (ICD-10-PCS; principal; 2017-02-01)
DX: I11.0 Hypertensive heart disease with heart failure (principal); I50.23 Acute on chronic systolic (congestive) heart failure; N17.9 Acute kidney failure, unspecified; E87.3 Alkalosis; L03.115 Cellulitis of right lower limb; E11.65 Type 2 diabetes mellitus with hyperglycemia; E86.1 Hypovolemia; E87.1 Hypo-osmolality and hyponatremia; I42.9 Cardiomyopathy, unspecified; L03.116 Cellulitis of left lower limb; I48.91 Unspecified atrial fibrillation; B36.9 Superficial mycosis, unspecified; F20.9 Schizophrenia, unspecified; J44.9 Chronic obstructive pulmonary disease, unspecified; E87.5 Hyperkalemia; E03.9 Hypothyroidism, unspecified; K21.9 Gastro-esophageal reflux disease without esophagitis; R21 Rash and other nonspecific skin eruption; I34.0 Nonrheumatic mitral (valve) insufficiency; I87.2 Venous insufficiency (chronic) (peripheral); I95.2 Hypotension due to drugs; T50.1X5A Adverse effect of loop [high-ceiling] diuretics, initial encounter; F31.9 Bipolar disorder, unspecified; Z79.01 Long term (current) use of anticoagulants; Z91.14 Patient's other noncompliance with medication regimen; Z85.72 Personal history of non-Hodgkin lymphomas; Z86.718 Personal history of other venous thrombosis and embolism; Z86.711 Personal history of pulmonary embolism; Z59.0 Homelessness; Z92.21 Personal history of antineoplastic chemotherapy; Z90.49 Acquired absence of other specified parts of digestive tract; Z87.891 Personal history of nicotine dependence; Z91.19 Patient's noncompliance with other medical treatment and regimen